=== PATIENT | male | born 1940 | race Caucasian/White ===

== ENCOUNTER 2020-06-27 06:52 | Outpatient (REF) | payer MEDICARE, OTHER, SELFPAY ==
[2020-06-27 08:06] LABS: MANUAL DIFF FLAG NO
[2020-06-27 08:14] LABS: Basophils Absolute Auto 0.1 X10*3/uL (0.0-0.2); Eosinophils Absolute Auto 0.3 X10*3/uL (0.0-0.4); Eosinophils Percent Auto 4.9 % (0-4); Hematocrit 44.4 % (42-52); Hemoglobin 15.5 g/dl (14.0-18.0); Imm Gran Abs Auto 0.02 X10*3/uL (0.00-0.03); Imm Gran Pct Auto 0.4 % (0.0-0.4); Lymphocytes Absolute Auto 1.7 X10*3/uL (1.2-4.9); Lymphocytes Percent Auto 34.4 % (20-40); Mean Corpuscular HGB Conc 34.9 g/dl (31.0-36.0); Mean Corpuscular Hemoglobin 32.9 pg (27.0-33.0); Mean Corpuscular Volume 94.3 fL (80-98); Mean Platelet Volume 11.5 fL (9.4-12.4); Monocytes Absolute Auto 0.7 X10*3/uL (0.1-1.2); Monocytes Percent Auto 14.4 % (2-11); Neutrophils Absolute Auto 2.2 X10*3/uL (2.0-8.3); Neutrophils Percent Auto 43.9 % (45-73); Platelet Count 164 X10*3/uL (160-400); Red Blood Count 4.71 X10*6/uL (4.60-5.80); Red Cell Distribution Width 12.7 % (11.0-16.0); White Blood Count 5.1 X10*3/uL (4.8-10.8)
[2020-06-27 08:38] LABS: Alanine Aminotransferase 14 U/L (0-40); Albumin Level 4.2 g/dL (3.5-5.0); Alkaline Phosphatase 64 U/L (39-117); Anion Gap 12 (12-20); Aspartate Amino Transferase 24 U/L (5-37); Bilirubin Total 0.9 mg/dL (0.0-1.0); Blood Urea Nitrogen 12 mg/dL (9-16); Calcium 8.9 mg/dL (8.4-10.2); Carbon Dioxide 28 mmol/L (22-29); Chloride 102 mmol/L (96-108); Cholesterol 153 mg/dL; Estimated Glomerular Filt Rate > 60; Glucose Fasting 85 mg/dL (60-99); HDL Cholesterol 60 mg/dL; LDL Cholesterol Calculated 78 mg/dl; Potassium 4.2 mmol/l (3.3-5.1); Sodium 138 mmol/L (135-145); Total Protein 7.1 g/dL (6.5-8.0); Triglycerides 77 mg/dL
[2020-06-27 09:01] LABS: Prostate Specific Antigen 1.04 ng/mL (<0.05-4.0)
== END 2020-06-27 06:53 | disposition home or self-care (01) ==
LOC: HO.LAB 06:52
PROVIDERS: PCP Internal Medicine Medical Oncology; Visit Provider Internal Medicine Medical Oncology
DX: N40.0 Benign prostatic hyperplasia without lower urinary tract symptoms (principal); D12.2 Benign neoplasm of ascending colon; E78.5 Hyperlipidemia, unspecified
CPT/HCPCS: 36415; 80053; 80061; 84153; 85025

== ENCOUNTER 2020-09-25 06:52 | Outpatient (REF) | payer MEDICARE, OTHER, SELFPAY ==
--- NOTE | 2020-09-25 07:08 | XR_ITS ---
EXAMINATION: XR CHEST CLINICAL INFORMATION: Hemoptysis. COMPARISON: None. TECHNIQUE: 2 views of the chest were obtained. FINDINGS: The lungs are hyperinflated with areas of ill-defined patchy opacities right upper lobe, right lower lobe, left midlung and left lower lobe are similar or slightly more prominent than on previous study. This could be technical. Increased markings seen in both lungs are stable. There is small multiple reticular nodular changes in both lungs, question metastatic disease. Heart size and pulmonary vascularity are normal. No gross bony abnormality seen. XR/XR chest 2V IMPRESSION: Hyperinflated lungs with areas of ill-defined patchy opacities and increased interstitial markings somewhat similar to previous study. There is multiple small nodules seen in both upper lobes and rest of the lungs. Suspect metastatic disease. Recommend CT chest exam.
[2020-09-25 07:33] LABS: MANUAL DIFF FLAG NO
[2020-09-25 07:35] LABS: Basophils Absolute Auto 0.1 X10*3/uL (0.0-0.2); Basophils Percent Auto 1.8 % (0-2); Eosinophils Absolute Auto 0.1 X10*3/uL (0.0-0.4); Eosinophils Percent Auto 1.6 % (0-4); Hematocrit 45.8 % (42-52); Hemoglobin 16.1 g/dl (14.0-18.0); Imm Gran Abs Auto 0.01 X10*3/uL (0.00-0.03); Imm Gran Pct Auto 0.2 % (0.0-0.4); Lymphocytes Absolute Auto 1.8 X10*3/uL (1.2-4.9); Lymphocytes Percent Auto 31.9 % (20-40); Mean Corpuscular HGB Conc 35.2 g/dl (31.0-36.0); Mean Corpuscular Hemoglobin 32.9 pg (27.0-33.0); Mean Corpuscular Volume 93.7 fL (80-98); Mean Platelet Volume 10.9 fL (9.4-12.4); Monocytes Absolute Auto 0.8 X10*3/uL (0.1-1.2); Monocytes Percent Auto 14.9 % (2-11); Neutrophils Absolute Auto 2.8 X10*3/uL (2.0-8.3); Neutrophils Percent Auto 49.6 % (45-73); Platelet Count 186 X10*3/uL (160-400); Red Blood Count 4.89 X10*6/uL (4.60-5.80); Red Cell Distribution Width 12.2 % (11.0-16.0); White Blood Count 5.7 X10*3/uL (4.8-10.8)
[2020-09-25 07:59] LABS: Alanine Aminotransferase 14 U/L (0-40); Albumin Level 4.4 g/dL (3.5-5.0); Alkaline Phosphatase 72 U/L (39-117); Anion Gap 11 (12-20); Aspartate Amino Transferase 21 U/L (5-37); Bilirubin Total 0.8 mg/dL (0.0-1.0); Blood Urea Nitrogen 12 mg/dL (9-16); Calcium 9.4 mg/dL (8.4-10.2); Carbon Dioxide 29 mmol/L (22-29); Chloride 102 mmol/L (96-108); Estimated Glomerular Filt Rate > 60; Glucose Random 88 mg/dL (60-115); Magnesium 1.9 mg/dL (1.6-2.6); Potassium 4.3 mmol/l (3.3-5.1); Sodium 138 mmol/L (135-145); Total Protein 7.4 g/dL (6.5-8.0)
== END 2020-09-25 06:53 | disposition home or self-care (01) ==
LOC: HO.LAB 06:52
PROVIDERS: Visit Provider Internal Medicine Medical Oncology
DX: R04.2 Hemoptysis (principal); E78.5 Hyperlipidemia, unspecified
CPT/HCPCS: 36415; 71046; 80053; 83735; 85025

== ENCOUNTER 2020-09-27 15:35 | Outpatient (REF) | payer MEDICARE, OTHER, SELFPAY ==
--- NOTE | 2020-09-27 | US_ITS ---
EXAMINATION: US VENOUS ULTRASOUND WITH DOPPLER LOWER EXTREMITY, LEFT CLINICAL INFORMATION: Pain COMPARISON: None TECHNIQUE: Ultrasound of the deep veins is performed from the hip to the calf with compression sonography and color and pulse Doppler assessment. Spectral analysis with color-flow imaging is performed. FINDINGS: There is normal venous compression and respiratory variation and augmented flow. The visualized common femoral vein, superficial femoral vein, profunda femoral vein, popliteal vein, and the trifurcation region shows no evidence of deep venous thrombosis. There is no significant popliteal fossa cyst. No popliteal artery aneurysm. If the patient's symptoms persist, followup ultrasound in 5 days 7 days might be of value to exclude proximal propagation from a non-visualized calf vein. US/US venous duplex LE LT IMPRESSION: No acute DVT demonstrated in the left lower extremity.
== END 2020-09-27 15:36 | disposition home or self-care (01) ==
LOC: HO.US 15:35
PROVIDERS: PCP Internal Medicine Medical Oncology; Visit Provider Internal Medicine Medical Oncology
DX: M79.662 Pain in left lower leg (principal)
CPT/HCPCS: 93971

== ENCOUNTER → 2020-11-01 12:53 | Outpatient (REF) | payer MEDICARE, OTHER, SELFPAY ==
--- NOTE | 2020-11-01 12:58 | CA_ITS ---
Transthoracic Echocardiogram Patient (Last, First, Middle): Freeman King J Gender: Male Date of : 1940 Age: 80 Procedure Date: 11/01/2020 Procedure Type: Transthoracic Echocardiogram Location: OP Height: 193.04 cm Weight: 80.74 kg BSA: 2.11 m2 Heart Rate: bpm BP: 126 / 78 mmHg Weight Loss Sales Consultant: [place] MD: Robbie Kothari MD Intellectual Property Counsel: Freddie Gibson MD Symptoms: ATRIAL ARRHYTHMIA Study Quality: Good ECG Rhythm: Sinus with extra beats Conclusions: - 1. Normal LV systolic function with grade 1 diastolic dysfunction 2. Trivial aortic regurgitation 3. Normal RV systolic pressure 4. No pericardial effusion Findings Left Ventricle Normal left ventricular size, thickness, and systolic function. The visually estimated ejection fraction is between 60-65%. Spectral Doppler is indicative of an impaired relaxation filling pattern. E/E prime ratio is <8, consistent with normal filling pressures. Evidence suggests grade I (mild) diastolic dysfunction. Right Ventricle Normal right ventricular cavity size and systolic function. Atria Both atria are normal in size. There is no evidence of interatrial shunt. Aortic Valve There is mild calcification of the aortic valve. There is no aortic valve stenosis. There is trace (trivial) aortic valve regurgitation. Mitral Valve Normal mitral valve structure and function. There is trace mitral valve regurgitation. There is no mitral valve stenosis. Pulmonic Valve The pulmonic valve is likely normal. There is trace to mild pulmonic valve regurgitation. Tricuspid Valve Normal tricuspid valve structure. There is trace tricuspid valve regurgitation. The right ventricular systolic pressure is normal. The right ventricular systolic pressure is 22 mmHg. Normal right atrial pressure. There is no evidence of pulmonary hypertension. Great Vessels All visible segments of the aorta are normal in size. The pulmonary artery was not well visualized. Venous The inferior vena cava is normal in size and collapses greater than 50% with inspiration. Pericardium/Pleural There is no evidence of pericardial effusion. Prior Study Comparison No prior study available for comparison. Measurements 2D Linear Measurements IVSd: 1.02 0.6-0.9/0.6-1.0 cm LVIDd: 4.22 3.9-5.3/4.2-5.9 cm LVIDd Index: 2.00 2.4-3.2/2.2-3.1 cm/m2 LVIDs: 2.70 2.0-3.6 cm LVPWd: 1.01 0.7-1.1 cm Ao Root: 3.80 2.1-3.5 cm LA Diam: 3.50 2.7-3.8/3.0-4.0 cm LAIDs Index: 1.66 1.5-2.3 cm/m2 LV Mass: 175.75 67-162/88-224 g LV Mass Index: 83.29 43-95/49-115 g/m2 LVOT Diam: 2.50 3.0+(-)1.3 cm Mitral Valve MV Pk E: 0.56 MV PK A: 0.77 MV Decel Time: 206.00 E/A: 0.70 E'Lateral: 8.49 E'Medial: 5.33 E/E' Med: 10.60 E/E' Lat: 6.60 PHT: 60.00 MVA PHT: 3.67 Decel Rock: 2.74 Aortic Valve AoV Pk Jun: 1.38 AoV Mn Jun: 0.94 AoV VTI: 0.28 AoV Pk Grad: 8.00 Aov Mn Grad: 4.00 DAR Cont.VTI: 4.35 LVOT LVOT Pk Jun: 1.12 LVOT Mn Jun: 0.81 LVOT VTI: 0.25 LVOT Pk Grad: 5.00 LVOT Mn Grad: 3.00 LVOT Diam: 2.50 LVOT Area: 4.91 Diastolic Function MV Pk E: 0.56 MV Pk A: 0.77 E/A: 0.70 E'Medial: 5.33 E/E' Med: 10.60 E' Laterial: 8.49 E/E' Lat: 6.60 Tricuspid Valve TR Pk Jun: 2.20 TR Pk Grad: 19.00 RA Press: 3.00 RVSP: 22.00 Great Vessels Aorta Ao Root-2D: 3.80 2.0-3.7 cm Ao Asc: 3.50 2.1-3.4 cm Ao Arch: 3.50 Updated in Other Vendor System with Status of Final Freddie Gibson MD electronically signed on 11/02/2020 3:38:12 PM with status of Final
--- NOTE | 2020-11-01 12:59 | ECG_ITS ---
Hook-up date: 2020-11-01 13:55:00 Duration: 47:59:00 Test Indications: ATRIAL ARRHYTHMIA Medications: 446561 QRS complexes 5934 Ventricular ectopics which represent 5 % of total QRS comp. 9 Supraventricular ectopics which represent <1 % of total QRS comp. * Paced QRS complexs which represent % of total QRS comp. VENTRICULAR ECTOPY 5341 Isolated 560 Bigeminal Cycles 289 Couplets 5 Runs 15 Beats in Runs 3 Beats LONGEST at 166 BPM at 07:03:11 2020-11-02 3 Beats FASTEST at 189 BPM at 07:32:04 2020-11-02 SUPRAVENTRICULAR ECTOPY 5 Isolated 2 Couplets 0 Runs 0 Beats in Runs * Beats LONGEST at * BPM at :: -- * Beats FASTEST at * BPM at :: -- HEART RATES 48 MIN at 16:35:05 2020-11-01 67 AVG 115 MAX at 07:31:59 2020-11-02 LONGEST RR 1.3280 secs at 05:27:06 2020-11-02 S-T LEVELS Channel 1 - 128 mm at 13:55:00 2020-11-01 - 128 mm at 13:55:00 2020-11-01 Channel 2 - 128 mm at 13:55:00 2020-11-01 - 128 mm at 13:55:00 2020-11-01 Channel 3 - 128 mm at 03:31:41 -- - 128 mm at 03:31:41 Basic rhythm Normal sinus rhythm No long pause or profound bradycardia Frequent Premature ventricular complexes , 6% of total beats % 3 beat perry of NSVT with fastest rate of 189 bpm Patient did not report any symptoms in the diary Referred By: Robbie Kothari Overread By: ARTIE BLACK MD
== END ==
LOC: HO.CARD 12:53
PROVIDERS: Visit Provider Internal Medicine Medical Oncology
DX: I49.8 Other specified cardiac arrhythmias (principal)
CPT/HCPCS: 93225; 93226; 93306

== ENCOUNTER → 2020-11-06 09:49 | Outpatient (BNVA) | payer MEDICARE, OTHER, SELFPAY | PROVIDERS: PCP Internal Medicine Medical Oncology; Visit Provider Hospitalist | DX: R93.89 Abnormal findings on diagnostic imaging of other specified body structures (principal); R91.8 Other nonspecific abnormal finding of lung field; R04.2 Hemoptysis; R05 Cough | CPT/HCPCS: 99202 ==

== ENCOUNTER 2020-11-16 08:53 | Outpatient (REF) | payer MEDICARE, OTHER, SELFPAY ==
--- NOTE | ~2020-11-16 | CT_ITS ---
EXAMINATION: CT CHEST WITHOUT CONTRAST CLINICAL INFORMATION: Cough COMPARISON: Previous chest CT most recent November 2016 and previous chest x-ray most recent September 2020 TECHNIQUE: Multidetector volumetric CT imaging of the chest was done. Axial MIP volume rendering provided. Sagittal and coronal reformatted images were obtained. This CT examination was performed using dose optimization techniques as appropriate, variously including the following: *Automated exposure control *Adjustment of mA and/or kV according to patient size (this includes techniques or standardized protocols for targeted exams where dose is matched to indication/reason for exam; i.e. extremities or head) *Use of iterative reconstruction technique DLP: 180 mGy-cm FINDINGS: LUNGS: There is increasing bronchiectasis and bronchial wall thickening seen in the bilateral upper lobes. There are multiple new nodular opacities seen throughout the lungs but greatest in the bilateral upper lobes and superior segment of the lower lobes. The majority of these appear clustered or peribronchial and may be related to airways disease. Some nodular opacities appear isolated. Largest discrete nodular opacity measures 1 cm in the left upper lobe axial image 30 series 4, 8 mm in the left lower lobe axial image 33 series 4 and 7 mm in the right lower lobe axial image 37 series 4. Neoplastic process cannot be excluded and chest CT follow-up following treatment is recommended. No endobronchial or endotracheal lesion is seen. There is evidence of mild paraseptal emphysema. MEDIASTINUM: There is a small calcified left thyroid nodule that is stable. No follow-up needed. There is diffuse mediastinal lymphadenopathy. Larger lymph nodes are upper normal in size. Largest lymph node is an precarinal lymph node measuring 8 x 10 mm axial image 27 series 3. The heart does not appear enlarged. There is coronary artery calcification. The ascending thoracic aorta is normal in size. The aortic arch measures 3.3 and the descending thoracic aorta 3.2 cm and is slightly dilated. There is no pericardial effusion. The esophagus is unremarkable. PLEURA: There is no pleural effusion. No pleural mass or thickening. AXILLA: No lymphadenopathy. UPPER ABDOMEN: There are multiple low-attenuation liver lesions probably representing cysts. There is a partially visualized cyst in the upper pole of the right kidney. There is a 4 mm right upper pole renal stone. There is diverticulosis of the colon. OSSEOUS STRUCTURES: Unremarkable. CT/CT chest wo con IMPRESSION: Increased bronchiectasis and bronchial wall thickening in the bilateral upper lobes. Multiple new nodular opacities. The majority of these are clustered in peribronchial suggestive of tree-in-bud appearance or airways disease favoring an infectious or inflammatory process. In particular, TB, NAYA and fungal infection should be considered. Several nodular opacities appear discrete or more isolated and neoplastic process cannot be excluded. CT imaging follow-up is recommended.
== END 2020-11-16 08:54 | disposition home or self-care (01) ==
LOC: HO.CT 08:53
PROVIDERS: Visit Provider Hospitalist
DX: R05 Cough (principal); R91.8 Other nonspecific abnormal finding of lung field; R93.89 Abnormal findings on diagnostic imaging of other specified body structures
CPT/HCPCS: 71250

== ENCOUNTER 2020-11-30 06:42 | Outpatient (REF) | payer MEDICARE, OTHER, SELFPAY ==
[2020-11-30 07:01] LABS: MANUAL DIFF FLAG NO
[2020-11-30 07:04] LABS: Basophils Absolute Auto 0.1 X10*3/uL (0.0-0.2); Basophils Percent Auto 1.2 % (0-2); Eosinophils Absolute Auto 0.1 X10*3/uL (0.0-0.4); Eosinophils Percent Auto 1.6 % (0-4); Hematocrit 47.3 % (42-52); Hemoglobin 16.5 g/dl (14.0-18.0); Imm Gran Abs Auto 0.03 X10*3/uL (0.00-0.03); Imm Gran Pct Auto 0.4 % (0.0-0.4); Lymphocytes Absolute Auto 1.8 X10*3/uL (1.2-4.9); Lymphocytes Percent Auto 24.2 % (20-40); Mean Corpuscular HGB Conc 34.9 g/dl (31.0-36.0); Mean Corpuscular Hemoglobin 32.8 pg (27.0-33.0); Mean Platelet Volume 10.2 fL (9.4-12.4); Monocytes Absolute Auto 0.9 X10*3/uL (0.1-1.2); Monocytes Percent Auto 12.4 % (2-11); Neutrophils Absolute Auto 4.4 X10*3/uL (2.0-8.3); Neutrophils Percent Auto 60.2 % (45-73); Platelet Count 197 X10*3/uL (160-400); Red Blood Count 5.03 X10*6/uL (4.60-5.80); Red Cell Distribution Width 12.9 % (11.0-16.0); White Blood Count 7.3 X10*3/uL (4.8-10.8)
[2020-11-30 07:30] LABS: Alanine Aminotransferase 11 U/L (0-40); Albumin Level 4.3 g/dL (3.5-5.0); Alkaline Phosphatase 79 U/L (39-117); Anion Gap 10 (12-20); Aspartate Amino Transferase 21 U/L (5-37); Blood Urea Nitrogen 12 mg/dL (9-16); Calcium 9.2 mg/dL (8.4-10.2); Carbon Dioxide 29 mmol/L (22-29); Chloride 101 mmol/L (96-108); Cholesterol 172 mg/dL; Estimated Glomerular Filt Rate > 60; Glucose Fasting 93 mg/dL (60-99); HDL Cholesterol 58 mg/dL; LDL Cholesterol Calculated 100 mg/dl; Potassium 4.4 mmol/L (3.3-5.1); Sodium 136 mmol/L (135-145); Total Protein 7.6 g/dL (6.5-8.0); Triglycerides 72 mg/dL
[2020-11-30 07:53] LABS: Prostate Specific Antigen 1.73 ng/mL (<0.05-4.0)
== END 2020-11-30 06:43 | disposition home or self-care (01) ==
LOC: HO.LAB 06:42
PROVIDERS: PCP Internal Medicine Medical Oncology; Visit Provider Internal Medicine Medical Oncology
DX: E78.5 Hyperlipidemia, unspecified (principal); N40.0 Benign prostatic hyperplasia without lower urinary tract symptoms; Z12.5 Encounter for screening for malignant neoplasm of prostate
CPT/HCPCS: 36415; 80053; 80061; 84153; 85025

== ENCOUNTER 2021-01-08 09:02 | Outpatient (REF) | payer MEDICARE, OTHER, SELFPAY ==
--- NOTE | 2021-01-08 16:27 | PFT_ITS ---
Forced vital capacity FEV1, XVD67-55, and MVV are all normal. Postbronchodilator therapy, there is no change. Total lung capacity and residual volume normal. Diffusion capacity slightly decreased. CONCLUSION: Normal pulmonary function test. No evidence of obstructive or restrictive pulmonary disorder. Swetha Villegas MD MSB/MODL / [id number]
== END 2021-01-08 09:03 | disposition home or self-care (01) ==
LOC: HO.RESP 09:02
PROVIDERS: PCP Internal Medicine Medical Oncology; Visit Provider Hospitalist
DX: R05 Cough (principal); R91.8 Other nonspecific abnormal finding of lung field; R93.89 Abnormal findings on diagnostic imaging of other specified body structures
CPT/HCPCS: 94060; 94727; 94729; 99212

== ENCOUNTER 2021-01-17 07:54 | Day surgery (SDC) | payer MEDICARE, OTHER, SELFPAY ==
--- NOTE | 2021-01-16 08:52 | HO.ANESPROP2 ---
Documented by User: Brenda Margareth 01/16/21 08:59 HPI - Anesthesia Eval Consult details Narrative: 80yo M for Bronchoscopy Fiberoptic PMFSH Active Problems Active Problems: All Active Problems (Updated 01/08/21 @ 21:55 by Denilson Minor MD) Bronchiectasis (Acute) Hemoptysis (Acute) Pulmonary nodules (Acute) Cough (Acute) Abnormal chest x-ray (Acute) Past Medical History Medical History Abnormal chest x-ray BPH (benign prostatic hyperplasia) Bronchiectasis Cough Hemoptysis Hernia HLD (hyperlipidemia) Pulmonary nodules Surgical History Surgical History Hx of colonoscopy Social History Social History Smoking Status: Former smoker Tobacco Type: Cigarette Years Smoked: 20 years Smoking Quit Date: 1989 Advance Directives: No Advance Directives Information Provided: Yes Meds Allergies Allergy/AdvReac Type Severity Reaction Status Date / Time latex [LATEX] Allergy Intermediate RASH Verified 01/17/21 08:43 Band-Aid Allergy Unknown rash Uncoded 01/17/21 08:43 neosporin Allergy Unknown rash Uncoded 01/17/21 08:43 Home Medications Medication Instructions Recorded Confirmed Last Taken Type atorvastatin 10 mg tablet 10 mg PO DAILY 11/06/20 01/08/21 Unknown History coenzyme Q10 300 mg capsule 300 mg PO DAILY 11/06/20 01/08/21 Unknown History Exam Exam Date and Time: January 16, 2021 0852 Pertinent Lab Results Pertinent Lab Results: Laboratory Tests 11/30/20 11/30/20 06:55 06:55 WBC 7.3 Hgb 16.5 Hct 47.3 Plt Count 197 Sodium 136 Potassium 4.4 Chloride 101 Carbon Dioxide 29 BUN 12 Creatinine 0.82 Narrative Narrative: EKG 09/2020 @ PCP: NSR@64, 1st degree AVB, PACs PFT 12/2020 CONCLUSION: Normal pulmonary function test. No evidence of obstructive or restrictive pulmonary disorder. CT/CT chest wo con 11/2020 IMPRESSION: Increased bronchiectasis and bronchial wall thickening in the bilateral upper lobes. Multiple new nodular opacities. The majority of these are clustered in peribronchial suggestive of tree-in-bud appearance or airways disease favoring an infectious or inflammatory process. In particular, TB, NAYA and fungal infection should be considered. Several nodular opacities appear discrete or more isolated and neoplastic process cannot be excluded. CT imaging follow-up is recommended. Assessment and Plan Assessment Anesthesia Assessment: Chart Reviewed Documented by User: Krystyna Corrales 01/17/21 09:21 [facility] Past Medical History Medical History Abnormal chest x-ray BPH (benign prostatic hyperplasia) Bronchiectasis Cough Hemoptysis Hernia HLD (hyperlipidemia) Pulmonary nodules Family History Family history of problems with anesthesia: No Surgical History Surgical History Hx of colonoscopy History of Problems with Anesthesia: No Social History Social History Smoking Status: Former smoker Tobacco Type: Cigarette Years Smoked: 20 years Smoking Quit Date: 1989 Advance Directives: No Advance Directives Information Provided: Yes Meds Allergies Allergy/AdvReac Type Severity Reaction Status Date / Time latex [LATEX] Allergy Intermediate RASH Verified 01/17/21 08:43 Band-Aid Allergy Unknown rash Uncoded 01/17/21 08:43 neosporin Allergy Unknown rash Uncoded 01/17/21 08:43 Home Medications Medication Instructions Recorded Confirmed Last Taken Type atorvastatin 10 mg tablet 10 mg PO DAILY 11/06/20 01/08/21 Unknown History coenzyme Q10 300 mg capsule 300 mg PO DAILY 11/06/20 01/08/21 Unknown History Exam Height,Weight and Vital Signs: Vital Signs Temp Pulse Resp BP Pulse Ox 01/17/21 08:37 97.9 F 63 16 141/68 H 97 Airway Mallampati Class: II TM Dist: >3cm Neck ROM: Full Denture: Upper and Lower Heart: RRR Lungs: CTAB Assessment and Plan Assessment Anesthesia Assessment: Anesthesia Plan Discussed and Chart Reviewed Final Anesthetic Review NPO: Yes ASA Class: II Final Preanesthetic Review: No Changes in Pt Med Stat, Meds/Allgs Chart Reviewed, Consent Obtained/Reviewed and Anes Risks/Benef Reviewed Patient Risk: Intermediate Procedure Risk: Low Assessment/Block/Sedation in SS: Assess/Block/Sedation-SS Anesthetic Plan Anesthetic Plan: GA Disposition: Standard PACU
[2021-01-17] VITALS (7 sets, daily range): BP systolic 105–141; BP diastolic 54–71; PULSE 54–63; RESP 16–20; TEMP 36.2–36.6; O2SAT 95–98; BMI 20.4
[2021-01-17] MEDS: Lactated Ringers 1,000 ML 100 ML IVCONT (08:40)
--- NOTE | 2021-01-17 09:27 | MHC.SHP ---
Pre-Procedural Eval Section B Chief Complaint: bronchiectasis Allergies: Allergies Allergy/AdvReac Type Severity Reaction Status Date / Time latex [LATEX] Allergy Intermediate RASH Verified 01/17/21 08:43 Band-Aid Allergy Unknown rash Uncoded 01/17/21 08:43 neosporin Allergy Unknown rash Uncoded 01/17/21 08:43 Plan I have reviewed the history and physical and performed a pertinent physical examination on my patient. No changes have occurred unless specified.
--- NOTE | 2021-01-18 09:28 | P.BOP_ITS ---
Brief Operative Note Date of Service: 01/17/21 Pre-op diagnosis: bronchiectasis Post-op diagnosis: same Procedure: Bronchoscopy washing and brushings Surgeon: Denilson Minor MD Anesthesia: GLMA Was an Station Engineer Main Line used for this Procedure?: No Estimated blood loss (mL): 0 Pathology: none sent Condition: stable Disposition: same day
--- NOTE | 2021-01-18 11:13 | OP_ITS ---
SURGEON: Denilson Minor MD PREOPERATIVE DIAGNOSIS: POSTOPERATIVE DIAGNOSIS: Bronchiectasis. PROCEDURE PERFORMED: Bronchoscopy. ESTIMATED BLOOD LOSS: COMPLICATIONS: ANESTHESIA: LMA. ASSISTANTS: None. SPECIMENS: ASA CLASSIFICATION: 2. PREBRONCHOSCOPY DIAGNOSIS: Bronchiectasis. DESCRIPTION OF PROCEDURE: After the patient was adequately sedated, the flexible digital bronchoscope was inserted over the LMA to the level of the vocal cords. The vocal cords appeared to be symmetrical and without any lesions. However, the larynx appeared to be more erythematous with some abnormal looking mucosa as far as pale in certain areas. Likely all related to inflammation and chronic changes, although an ENT eval in the future may be warranted. After instilling additional lidocaine, the bronchoscope was past the vocal cords to the level of the trachea. Tracheal mucosa appeared to be also inflamed, did have significant purulent thick secretions that were attached to the mucosal wall of the trachea. The bronchoscope was navigated to the entire tracheobronchial tree that was examined to the subsegmental level. The patient again had evidence of some inflammation of the airways, friability along with moderate amount of purulent secretions throughout as some areas that was difficult to suction. No bleeding. No endobronchial lesions or masses seen. Next, the bronchoscope was navigated to the right upper lobe, where cytologic and micro brushes were introduced and sent to the appropriate location. Next, with normal saline, bronchial washings were collected bilaterally and there was also therapeutic cleaning of the airways. The bronchoscope was then removed. The total endoscopic time approximately 10 minutes. The patient tolerated the procedure well. Vital signs were stable throughout the procedure. INTERPRETATION: 1. Successful brushings x2 of the right upper lobe. 2. Bilateral lung washings for cytology and microbiology. 3. Successful therapeutic suctioning. Denilson Minor MD MR/MODL / [id number]
== END 2021-01-17 11:36 | disposition home or self-care (01) ==
PROVIDERS: PCP Internal Medicine Medical Oncology; Visit Provider Hospitalist
PROC: 0BJ08ZZ Inspection of Tracheobronchial Tree, Via Natural or Artificial Opening Endoscopic (ICD-10-PCS; CPT 31622; principal; 2021-01-17 09:30)
DX: J47.9 Bronchiectasis, uncomplicated (principal); R91.8 Other nonspecific abnormal finding of lung field; R05 Cough
CPT/HCPCS: 31623; 31645; 87071; 87102; 87116; 87205; 88112; 88305; 88312; J0171; J1100; J2405; J3010

== ENCOUNTER → 2021-01-30 09:42 | Outpatient (BNVA) | payer MEDICARE, OTHER, SELFPAY | PROVIDERS: PCP Internal Medicine Medical Oncology; Visit Provider Hospitalist | DX: R91.8 Other nonspecific abnormal finding of lung field (principal); J47.9 Bronchiectasis, uncomplicated; R05 Cough | CPT/HCPCS: 99212 ==

== ENCOUNTER 2021-02-27 06:51 | Outpatient (REF) | payer MEDICARE, OTHER, SELFPAY ==
[2021-02-27 07:57] LABS: MANUAL DIFF FLAG NO
[2021-02-27 08:04] LABS: Basophils Absolute Auto 0.1 X10*3/uL (0.0-0.2); Basophils Percent Auto 1.2 % (0-2); Eosinophils Absolute Auto 0.1 X10*3/uL (0.0-0.4); Eosinophils Percent Auto 1.8 % (0-4); Hematocrit 46.4 % (42-52); Hemoglobin 16.3 g/dl (14.0-18.0); Imm Gran Abs Auto 0.03 X10*3/uL (0.00-0.03); Imm Gran Pct Auto 0.5 % (0.0-0.4); Lymphocytes Absolute Auto 1.8 X10*3/uL (1.2-4.9); Mean Corpuscular HGB Conc 35.1 g/dl (31.0-36.0); Mean Corpuscular Hemoglobin 32.8 pg (27.0-33.0); Mean Corpuscular Volume 93.4 fL (80-98); Mean Platelet Volume 11.2 fL (9.4-12.4); Monocytes Absolute Auto 0.9 X10*3/uL (0.1-1.2); Monocytes Percent Auto 15.2 % (2-11); Neutrophils Absolute Auto 3.2 X10*3/uL (2.0-8.3); Neutrophils Percent Auto 52.3 % (45-73); Platelet Count 185 X10*3/uL (160-400); Red Blood Count 4.97 X10*6/uL (4.60-5.80)
[2021-02-27 08:25] LABS: Alanine Aminotransferase 13 U/L (0-40); Albumin Level 4.3 g/dL (3.5-5.0); Alkaline Phosphatase 77 U/L (39-117); Anion Gap 12 (12-20); Aspartate Amino Transferase 23 U/L (5-37); Blood Urea Nitrogen 13 mg/dL (9-16); Calcium 9.4 mg/dL (8.4-10.2); Carbon Dioxide 29 mmol/L (22-29); Chloride 101 mmol/L (96-108); Cholesterol 158 mg/dL; Estimated Glomerular Filt Rate > 60; Glucose Fasting 82 mg/dL (60-99); HDL Cholesterol 65 mg/dL; LDL Cholesterol Calculated 80 mg/dl; Potassium 4.6 mmol/L (3.3-5.1); Sodium 137 mmol/L (135-145); Total Protein 7.3 g/dL (6.5-8.0); Triglycerides 65 mg/dL
== END 2021-02-27 06:52 | disposition home or self-care (01) ==
LOC: HO.LAB 06:51
PROVIDERS: PCP Internal Medicine Medical Oncology; Visit Provider Hospitalist
DX: N40.0 Benign prostatic hyperplasia without lower urinary tract symptoms (principal); R91.1 Solitary pulmonary nodule; E78.5 Hyperlipidemia, unspecified; I49.8 Other specified cardiac arrhythmias
CPT/HCPCS: 36415; 80053; 80061; 85025

== ENCOUNTER 2021-05-29 06:52 | Outpatient (REF) | payer MEDICARE, OTHER, SELFPAY ==
[2021-05-29 07:31] LABS: MANUAL DIFF FLAG NO
[2021-05-29 07:37] LABS: Basophils Absolute Auto 0.1 X10*3/uL (0.0-0.2); Eosinophils Absolute Auto 0.2 X10*3/uL (0.0-0.4); Eosinophils Percent Auto 4.2 % (0-4); Hematocrit 45.9 % (42-52); Hemoglobin 16.1 g/dl (14.0-18.0); Imm Gran Abs Auto 0.01 X10*3/uL (0.00-0.03); Imm Gran Pct Auto 0.2 % (0.0-0.4); Lymphocytes Absolute Auto 1.5 X10*3/uL (1.2-4.9); Lymphocytes Percent Auto 29.6 % (20-40); Mean Corpuscular HGB Conc 35.1 g/dl (31.0-36.0); Mean Corpuscular Hemoglobin 32.5 pg (27.0-33.0); Mean Corpuscular Volume 92.7 fL (80-98); Mean Platelet Volume 11.4 fL (9.4-12.4); Monocytes Absolute Auto 0.7 X10*3/uL (0.1-1.2); Monocytes Percent Auto 13.7 % (2-11); Neutrophils Absolute Auto 2.5 X10*3/uL (2.0-8.3); Neutrophils Percent Auto 50.3 % (45-73); Platelet Count 178 X10*3/uL (160-400); Red Blood Count 4.95 X10*6/uL (4.60-5.80); Red Cell Distribution Width 13.2 % (11.0-16.0)
[2021-05-29 08:03] LABS: Alanine Aminotransferase 17 U/L (0-40); Albumin Level 4.2 g/dL (3.5-5.0); Alkaline Phosphatase 73 U/L (39-117); Anion Gap 13 (12-20); Aspartate Amino Transferase 26 U/L (5-37); Blood Urea Nitrogen 10 mg/dL (9-16); Calcium 9.6 mg/dL (8.4-10.2); Carbon Dioxide 26 mmol/L (22-29); Chloride 102 mmol/L (96-108); Cholesterol 169 mg/dL; Estimated Glomerular Filt Rate > 60; Glucose Fasting 91 mg/dL (60-99); HDL Cholesterol 69 mg/dL; LDL Cholesterol Calculated 84 mg/dl; Potassium 4.6 mmol/L (3.3-5.1); Sodium 136 mmol/L (135-145); Total Protein 7.3 g/dL (6.5-8.0); Triglycerides 84 mg/dL
[2021-05-29 08:26] LABS: Prostate Specific Antigen 1.46 ng/mL (<0.05-4.0)
== END 2021-05-29 06:53 | disposition home or self-care (01) ==
LOC: HO.LAB 06:52
PROVIDERS: PCP Internal Medicine Medical Oncology; Visit Provider Internal Medicine Medical Oncology
DX: N40.0 Benign prostatic hyperplasia without lower urinary tract symptoms (principal); E78.5 Hyperlipidemia, unspecified
CPT/HCPCS: 36415; 80053; 80061; 84153; 85025

== ENCOUNTER → 2021-07-29 09:28 | Outpatient (BNVA) | payer MEDICARE, OTHER, SELFPAY | PROVIDERS: PCP Internal Medicine Medical Oncology; Visit Provider Hospitalist | DX: R91.8 Other nonspecific abnormal finding of lung field (principal); J47.9 Bronchiectasis, uncomplicated; R05.9 Cough, unspecified; A31.9 Mycobacterial infection, unspecified | CPT/HCPCS: 99212 ==

== ENCOUNTER 2021-10-02 06:52 | Outpatient (REF) | payer MEDICARE, OTHER, SELFPAY ==
[2021-10-02 07:10] LABS: MANUAL DIFF FLAG NO
[2021-10-02 07:33] LABS: Basophils Absolute Auto 0.1 X10*3/uL (0.0-0.2); Basophils Percent Auto 1.5 % (0-2); Eosinophils Absolute Auto 0.1 X10*3/uL (0.0-0.4); Eosinophils Percent Auto 2.4 % (0-4); Hematocrit 47.5 % (42.0-52.0); Hemoglobin 16.6 g/dl (14.0-18.0); Imm Gran Abs Auto 0.02 X10*3/uL (0.00-0.03); Imm Gran Pct Auto 0.3 % (0.0-0.4); Lymphocytes Absolute Auto 1.7 X10*3/uL (1.2-4.9); Lymphocytes Percent Auto 29.7 % (20-40); Mean Corpuscular HGB Conc 34.9 g/dl (31.0-36.0); Mean Corpuscular Hemoglobin 32.7 pg (27.0-33.0); Mean Corpuscular Volume 93.7 fL (80.0-98.0); Mean Platelet Volume 11.5 fL (9.4-12.4); Monocytes Absolute Auto 0.8 X10*3/uL (0.1-1.2); Monocytes Percent Auto 13.7 % (2-11); Neutrophils Absolute Auto 3.1 x10*3/uL (2.0-8.3); Neutrophils Percent Auto 52.4 % (45-73); Platelet Count 173 X10*3/uL (160-400); Red Blood Count 5.07 X10*6/uL (4.60-5.80); Red Cell Distribution Width 12.5 % (11.0-16.0); White Blood Count 5.9 X10*3/uL (4.8-10.8)
[2021-10-02 07:59] LABS: Alanine Aminotransferase 14 U/L (0-40); Albumin Level 4.4 g/dL (3.5-5.0); Alkaline Phosphatase 76 U/L (39-117); Anion Gap 11 (12-20); Aspartate Amino Transferase 23 U/L (5-37); Blood Urea Nitrogen 14 mg/dL (9-16); Calcium 9.7 mg/dL (8.4-10.2); Carbon Dioxide 28 mmol/L (22-29); Chloride 101 mmol/L (96-108); Cholesterol 176 mg/dL; Estimated Glomerular Filt Rate > 60; Glucose Fasting 83 mg/dL (60-99); HDL Cholesterol 63 mg/dL; LDL Cholesterol Calculated 100 mg/dl; Potassium 4.1 mmol/L (3.3-5.1); Sodium 136 mmol/L (135-145); Total Protein 7.8 g/dL (6.5-8.0); Triglycerides 69 mg/dL
[2021-10-02 08:15] LABS: Erythrocyte Sedimentation Rate 6 MM/HR (0-15)
[2021-10-04 03:02] LABS: Immunoglobulin E 16 kU/L (<OR=114)
[2021-10-04 12:36] LABS: Anti Nuclear Antibody Screen NEGATIVE (NEGATIVE)
[2021-10-04 20:36] LABS: Immunoglobulin G Subclass 1 691 mg/dL (382-929); Immunoglobulin G Subclass 2 312 mg/dL (241-700); Immunoglobulin G Subclass 3 40 mg/dL (22-178); Immunoglobulin G Subclass 4 88.4 mg/dL (4-86); Immunoglobulin G Total 1284 mg/dL (600-1540)
[2021-10-04 20:55] LABS: TS Negative Control Passed; TS Panel A 0; TS Panel B 0; TS Positive Control Passed; TSpotTB Negative (Negative)
[2021-10-11 21:46] LABS: Asperg fumigatus Precip Abs NEGATIVE (NEGATIVE); Micropoly faeni Abs NEGATIVE (NEGATIVE); Pigeon serum Abs NEGATIVE (NEGATIVE); Saccharo pora viridis Abs POSITIVE (NEGATIVE); Thermo candidus Abs POSITIVE (NEGATIVE); Thermoa vulgaris #1 NEGATIVE (NEGATIVE)
== END 2021-10-02 06:53 | disposition home or self-care (01) ==
LOC: HO.LAB 06:52
PROVIDERS: Absent Provider Internal Medicine Medical Oncology; PCP Internal Medicine Medical Oncology; Visit Provider Hospitalist
DX: Z11.1 Encounter for screening for respiratory tuberculosis (principal); R91.8 Other nonspecific abnormal finding of lung field; J47.9 Bronchiectasis, uncomplicated; E78.5 Hyperlipidemia, unspecified
CPT/HCPCS: 36415; 80053; 80061; 82784; 82785; 85025; 85652; 86038; 86039; 86331; 86481; 86606; 86609

== ENCOUNTER 2021-10-21 15:05 | Emergency (ER) | payer MEDICARE, OTHER, SELFPAY ==
--- NOTE | ~2021-10-21 | CT_ITS ---
EXAMINATION: CT HEAD WITHOUT CONTRAST CT CERVICAL SPINE WITHOUT CONTRAST CLINICAL INFORMATION: Injury. Fall. COMPARISON: CT of chest 11/16/2020 TECHNIQUE: Imaging was performed from the skull base to vertex without intravenous administration of contrast. In addition, helical noncontrast CT imaging was acquired through the cervical spine and source images were reviewed along with axial reconstructions and sagittal and coronal MPRs. [This CT examination was performed using dose optimization techniques as appropriate, variously including the following: *Automated exposure control *Adjustment of mA and/or kV according to patient size (this includes techniques or standardized protocols for targeted exams where dose is matched to indication/reason for exam; i.e. extremities or head) *Use of iterative reconstruction technique] DLP: 1197 mGy-cm FINDINGS: HEAD: No intracranial mass, hemorrhage, or midline shift is visualized. There is generalized global volume loss. There is mild to moderate prominence of the ventricles and the sulci . There is mild hypodensity of the periventricular white matter due to chronic small vessel ischemic disease. There are vascular calcifications of the internal carotid arteries bilaterally. . No extra-axial collections are identified. The paranasal sinuses and mastoid air cells are well aerated. CERVICAL SPINE: There is no evidence of acute cervical spine fracture. Vertebral bodies remain normal in height. Cervical vertebrae have normal alignment. There is multilevel degenerative spondylosis of the cervical spine with disc height narrowing and endplate spurs and facet joint arthrosis No pre- or paravertebral soft tissue abnormality is identified. Limited assessment of the lung apices biapical scarring and bronchiectasis. CT/CT cervical spine wo con IMPRESSION: 1. No acute intracranial pathology. 2. No CT evidence of acute cervical spine fracture or traumatic subluxation
[2021-10-21 15:28] VITALS: BP 167/75; PULSE 55; RESP 18; TEMP 36.6; O2SAT 96; BMI 21.9
[2021-10-21 16:49] LABS: MANUAL DIFF FLAG NO
[2021-10-21 16:50] LABS: Basophils Percent Auto 0.4 % (0-2); Eosinophils Absolute Auto 0.1 X10*3/uL (0.0-0.4); Eosinophils Percent Auto 1.3 % (0-4); Hematocrit 44.4 % (42.0-52.0); Hemoglobin 15.7 g/dl (14.0-18.0); Imm Gran Abs Auto 0.03 X10*3/uL (0.00-0.03); Imm Gran Pct Auto 0.4 % (0.0-0.4); Lymphocytes Absolute Auto 1.7 X10*3/uL (1.2-4.9); Lymphocytes Percent Auto 22.5 % (20-40); Mean Corpuscular HGB Conc 35.4 g/dl (31.0-36.0); Mean Corpuscular Hemoglobin 32.6 pg (27.0-33.0); Mean Corpuscular Volume 92.3 fL (80.0-98.0); Mean Platelet Volume 10.8 fL (9.4-12.4); Monocytes Percent Auto 13.2 % (2-11); Neutrophils Absolute Auto 4.7 x10*3/uL (2.0-8.3); Neutrophils Percent Auto 62.2 % (45-73); Platelet Count 166 X10*3/uL (160-400); Red Blood Count 4.81 X10*6/uL (4.60-5.80); Red Cell Distribution Width 12.3 % (11.0-16.0); White Blood Count 7.5 X10*3/uL (4.8-10.8)
--- NOTE | 2021-10-21 17:09 | ED_ITS ---
HPI - Fall General Chief Complaint: Fall Stated Complaint: fell on the back of his head, wont stop bleeding Source: patient Mode of arrival: ambulatory Limitations: no limitations History of Present Illness HPI Narrative: 81-year-old male presents with laceration to the back of his head after slip and fall on the ice this morning at about 08:30. Patient called his primary care physician, was evaluated at Urgent Care, and then referred to the emergency department. Patient does not report any neurological symptoms, denies prodromal events, and not recall when his last Tdap vaccine was updated patient has no o ther complaints at this time. MD complaint: fall Onset (ago): hour(s) (08:30) Fall from: standing Fall witnessed: no Place fall occurred: home Loss of consciousness: none Prolonged down time: no Symptoms prior to fall: none Context: tripped/slipped (Slipped on ice) Location of injury: head Severity: moderate Severity scale (1-10): 4 Quality: dull and aching Associated symptoms (after fall): denies Related Data Home Medications Medication Instructions Recorded Confirmed atorvastatin 10 mg tablet 10 mg PO DAILY 11/06/20 01/08/21 coenzyme Q10 300 mg capsule 300 mg PO DAILY 11/06/20 01/08/21 albuterol sulfate 2.5 mg INHALATION Q4-6H PRN 07/29/21 Allergies Allergy/AdvReac Type Severity Reaction Status Date / Time latex [LATEX] Allergy Intermediate RASH Verified 10/21/21 15:28 Band-Aid Allergy Severe rash Uncoded 10/21/21 15:28 neosporin Allergy Severe rash Uncoded 10/21/21 15:28 Review of Systems Review of Systems: Constitutional: Positive fall, No Fever, No Chills ENT/Mouth: No Ear Pain, No Hoarseness, No sore throat Eyes: No Eye Pain, No Swelling, No Redness, No Foreign Body Cardiovascular: No Chest Pain, No SOB Respiratory: No Cough, No Dyspnea Gastrointestinal: No Nausea, No Vomiting, No Diarrhea, No abdominal Pain Genitourinary: No Dysuria, No Hematuria Musculoskeletal: No joint pain, No Myalgias, No Joint Swelling Skin: Positive occipital scalp laceration, No rash Neuro: No Weakness, No Numbness, No Paresthesias, No Loss of Consciousness, No Dizziness, No Headache Psych: No Anxiety/Panic, No Depression Heme/Lymph: no easy bruising, no Lymphadenopathy Endocrine: No Polyuria, No Polydipsia Yes all other systems are reviewed and are negative [facility] Past Medical History Attestation statement: The following information was validated with the patient. Source: old records reviewed Medical History Abnormal chest x-ray BPH (benign prostatic hyperplasia) Bronchiectasis Cough Hemoptysis Hernia HLD (hyperlipidemia) Mycobacterial disease Pulmonary nodules Surgical History Hx of colonoscopy Social History Social History Patient Tobacco Use Status: Former Tobacco user Tobacco use type: Cigarette Years Smoked: 20 years Advance Directives: No Advance Directives Information Provided: Yes Physical Exam Vital Signs: Vital Signs: Last Vital Signs Temp 97.9 F 10/21/21 15:28 Pulse 62 10/21/21 18:55 Resp 16 10/21/21 18:55 BP 128/87 10/21/21 18:55 Pulse Ox 98 10/21/21 18:55 BMI result Body Mass Index 21.9 Appearance: Alert. Oriented X3. No acute distress. Head: Normal external exam. Normocephalic. Atraumatic. No Brito signs noted. No raccoon eyes noted Eyes: PERRLA. EOMI. Conjunctiva and sclera normal. Eyelids normal. ENT: TM's Normal. Pharynx normal. Uvula midline. Moist mucous membranes. No trismus noted. No drooling noted. No muffled voice noted. Neck: Normal inspection. Neck supple. No adenopathy. No meningeal signs. No vertebral tenderness or step-offs noted. CVS: Normal heart rate and rhythm. Heart sound normal. No murmurs noted. Pulses equal to all extremities. Respiratory: No respiratory distress. Painless inspiration. Breath sounds normal. No wheezes/rales/rhonchi noted. Chest nontender. No accessory muscle usage noted or decreased air movement noted. Abdomen: Soft and nontender. Bowel sounds normal in all 4 quadrants. No distention noted. No organomegaly noted. No visible injury noted. Back: No CVA tenderness. Full range of motion noted. Skin: Skin warm and dry. Normal skin color. Normal skin turgor. 2 cm laceration to the occiput Extremities: No lower extremity edema. Extremities exhibit normal range of motion. Extremities nontender. Neuro: cranial nerves 2-12 intact, no focal neural deficits, strength 5/5 to all extremities, No motor deficit. No sensory deficit. Reflexes normal. Course Course Course Narrative: 81-year-old male presents from urgent care for evaluation of a head laceration after slipping and falling on the ice today. Hit the back of his head on the ground, does not report losing consciousness, does not report any prodromal symptoms. Will order CT scan of head and cervical spine, update Tdap vaccine at this time. 17:20 laceration cleaned by INFORMATION CODER, 3 scott applied without difficulty to the 2 cm laceration to the occiput. Patient tolerated procedure well. Bleeding is well controlled. CT scan of cervical spine and head pending. 18:48 CT scan of head and cervical spine negative for acute findings requiring of intervention. Plan of care is to discharge home have patient follow-up with primary care physician for concussion follow-up. Patient does understand staple care, signs and symptoms indicating need to return to the emergency department and agrees to plan of care discharge home. Procedures Laceration Laceration 1: Site: scalp Size (cm): 2 Description: linear Depth: simple, single layer Pre-repair: wound explored, irrigated extensively and deep structures intact Skin layer closed with: other ([place] 3) MDM - Fall MDM Narrative Medical decision making narrative: Laceration Differential Diagnosis Differential diagnosis: Likely concussion without loss of consciousness Medical Records Attestation: I reviewed the patient's medical records. Lab Data Attestation: I reviewed the patient's lab results. Result diagrams: 10/21/21 16:45 10/21/21 16:45 Labs: Lab Results 10/21/21 10/21/21 Range/Units 16:45 16:45 WBC 7.5 (4.8-10.8) X10*3/uL RBC 4.81 (4.60-5.80) X10*6/uL Hgb 15.7 (14.0-18.0) g/dl Hct 44.4 (42.0-52.0) % MCV 92.3 (80.0-98.0) fL MCH 32.6 (27.0-33.0) pg MCHC 35.4 (31.0-36.0) g/dl RDW 12.3 (11.0-16.0) % Plt Count 166 (160-400) X10*3/uL MPV 10.8 (9.4-12.4) fL Immature Gran % (Auto) 0.4 (0.0-0.4) % Neut % (Auto) 62.2 (45-73) % Lymph % (Auto) 22.5 (20-40) % [place] % (Auto) 13.2 H (2-11) % Eos % (Auto) 1.3 (0-4) % Baso % (Auto) 0.4 (0-2) % Lymph # (Auto) 1.7 (1.2-4.9) X10*3/uL [place] # (Auto) 1.0 (0.1-1.2) X10*3/uL Eos # (Auto) 0.1 (0.0-0.4) X10*3/uL Baso # (Auto) 0.0 (0.0-0.2) X10*3/uL Abs Immat Gran (auto) 0.03 (0.00-0.03) X10*3/uL Absolute Neuts (auto) 4.7 (2.0-8.3) x10*3/uL Absolute Nucleated RBC 0.000 (0.0-0.012) X10*3/uL Nucleated RBC % (auto) 0.0 (0.0-0.2) /100WBC Sodium 134 L (135-145) mmol/L Potassium 4.6 (3.3-5.1) mmol/L Chloride 101 (96-108) mmol/L Carbon Dioxide 29 (22-29) mmol/L Anion Gap 9 L (12-20) BUN 12 (9-16) mg/dL Creatinine 0.88 (0.5-1.4) mg/dL Estim Creat Clear Calc 76.0 Estimated GFR > 60 Random Glucose 95 (60-115) mg/dL Calcium 9.4 (8.4-10.2) mg/dL Imaging Data CT head cervical spine: Attestation: I personally reviewed and interpreted this imaging study as follows: Radiologist's impression: COMPARISON: CT of chest 11/16/2020 TECHNIQUE: Imaging was performed from the skull base to vertex without intravenous administration of contrast. In addition, helical noncontrast CT imaging was acquired through the cervical spine and source images were reviewed along with axial reconstructions and sagittal and coronal MPRs. [This CT examination was performed using dose optimization techniques as appropriate, variously including the following: *Automated exposure control *Adjustment of mA and/or kV according to patient size (this includes techniques or standardized protocols for targeted exams where dose is matched to indication/reason for exam; i.e. extremities or head) *Use of iterative reconstruction technique] DLP: 1197 mGy-cm FINDINGS: HEAD: No intracranial mass, hemorrhage, or midline shift is visualized. There is generalized global volume loss. There is mild to moderate prominence of the ventricles and the sulci . There is mild hypodensity of the periventricular white matter due to chronic small vessel ischemic disease. There are vascular calcifications of the internal carotid arteries bilaterally. . No extra-axial collections are identified. The paranasal sinuses and mastoid air cells are well aerated. CERVICAL SPINE: There is no evidence of acute cervical spine fracture. Vertebral bodies remain normal in height. Cervical vertebrae have normal alignment. There is multilevel degenerative spondylosis of the cervical spine with disc height narrowing and endplate spurs and facet joint arthrosis No pre- or paravertebral soft tissue abnormality is identified. Limited assessment of the lung apices biapical scarring and bronchiectasis. CT/CT head/brain wo con IMPRESSION: 1. No acute intracranial pathology. 2. No CT evidence of acute cervical spine fracture or traumatic subluxation Discharge Plan Discharge Clinical Impression: Laceration of occipital scalp, Concussion, Fall Patient Disposition: Home, Self-Care Instructions: Laceration (ED), Concussion (ED), Staple Care (ED) Additional Instructions: You were evaluated for laceration sustained from a fall on ice. We placed 3 scott. Please return in 10 days for staple removal. You may return to your primary care physician, urgent care. Please follow-up with primary care physician closely for concussion protocol. Please return to the emergency department for any symptoms indicating need for emergent intervention. Thank you for choosing this emergency department for evaluation. Please follow-up with primary care physician as needed. Return to the emergency de partment for any new, concerning, or worsening symptoms. Prescriptions: No Action atorvastatin 10 mg tablet 10 mg PO DAILY 0RF coenzyme Q10 300 mg capsule 300 mg PO DAILY 0RF albuterol sulfate 2.5 mg /3 mL (0.083 %) solution for nebulization 2.5 mg inhalation Q4-6H [id number] Interventions: ED Discharge Assessment Last Done: 10/21/21 18:57 Discharge Date/Time: 10/21/21 18:58
[2021-10-21 17:21] LABS: Anion Gap 9 (12-20); Blood Urea Nitrogen 12 mg/dL (9-16); Calcium 9.4 mg/dL (8.4-10.2); Carbon Dioxide 29 mmol/L (22-29); Chloride 101 mmol/L (96-108); Estimated Glomerular Filt Rate > 60; Glucose Random 95 mg/dL (60-115); Potassium 4.6 mmol/L (3.3-5.1); Sodium 134 mmol/L (135-145)
[2021-10-21] MEDS: Diphth,Pertus(ACell),Tet Adult 0.5 ML SYRINGE IM (17:29)
[2021-10-21 18:55] VITALS: BP 128/87; PULSE 62; RESP 16; O2SAT 98
== END 2021-10-21 18:58 | disposition home or self-care (01) ==
PROVIDERS: Emergency Provider Emergency Medicine; PCP Internal Medicine Medical Oncology
DX: S06.0X0A Concussion without loss of consciousness, initial encounter (principal); S01.01XA Laceration without foreign body of scalp, initial encounter; W00.0XXA Fall on same level due to ice and snow, initial encounter; Y93.01 Activity, walking, marching and hiking; Y92.014 Private driveway to single-family (private) house as the place of occurrence of the external cause; Y99.9 Unspecified external cause status
CPT/HCPCS: 12001; 36415; 70450; 72125; 80048; 85025; 90471; 90715; 99283; 99284

== ENCOUNTER → 2021-10-22 09:23 | Outpatient (BNVA) | payer MEDICARE, OTHER, SELFPAY | PROVIDERS: PCP Internal Medicine Medical Oncology; Visit Provider Hospitalist | DX: R91.8 Other nonspecific abnormal finding of lung field (principal); J47.9 Bronchiectasis, uncomplicated; R05.9 Cough, unspecified; A31.9 Mycobacterial infection, unspecified | CPT/HCPCS: 99212 ==

== ENCOUNTER 2021-12-17 08:12 | Outpatient (REF) | payer MEDICARE, OTHER, SELFPAY ==
--- NOTE | ~2021-12-17 | CT_ITS ---
EXAMINATION: CT CHEST WITHOUT CONTRAST CLINICAL INFORMATION: Pulmonary nodules COMPARISON: Previous chest CT most recent November 2020 TECHNIQUE: Multidetector volumetric CT imaging of the chest was done. Axial MIP volume rendering provided. Sagittal and coronal reformatted images were obtained. This CT examination was performed using dose optimization techniques as appropriate, variously including the following: *Automated exposure control *Adjustment of mA and/or kV according to patient size (this includes techniques or standardized protocols for targeted exams where dose is matched to indication/reason for exam; i.e. extremities or head) *Use of iterative reconstruction technique DLP: 200 mGy-cm FINDINGS: LUNGS: There is increasing bronchiectasis, endobronchial wall thickening seen in both upper lobes. There is mixed appearance of pulmonary nodules. There is overall interval increase in size and number of pulmonary nodules, predominately involving the upper lungs. For example there is a new 0.8 x 1.3 cm cavitary right upper lobe nodule axial image 18 and 1.1 cm cavitary right upper lobe nodule axial image 17 series 3. There is interval decrease in size in the previously 8 x 8 mm left upper lobe nodule axial image 29 series 3 now measuring 0.2 x 8 mm axial image 29 series 3 and interval decrease in left lower lobe nodule measuring 1 cm axial image 33 series 3 now measuring 2 to 3 mm axial image 32 series 3. MEDIASTINUM: There is shotty mediastinal lymphadenopathy that is stable. Evaluation for hilar adenopathy is limited without contrast. The heart does not appear enlarged. There is coronary artery and aortic valve calcification. There is no pericardial effusion. There is a small left thyroid calcification that is stable. PLEURA: There is no pleural effusion. No pleural mass or thickening. AXILLA: No lymphadenopathy. UPPER ABDOMEN: There are multiple low-attenuation liver lesions that appear stable and likely represent cysts. There is a small stone in the upper pole of the right kidney. There is a 3 cm right renal cyst. OSSEOUS STRUCTURES: There is slight loss of height of the superior endplate of the T2 and T3 vertebral body suggestive of mild compression fractures. CT/CT chest wo con IMPRESSION: Waxing and waning appearance of pulmonary nodules. There is overall interval increase in size and number of pulmonary nodules and increasing bilateral upper lobe bronchiectasis and bronchial wall thickening. Coronary artery and aortic valve calcification. New mild T2 and T3 vertebral body compression fractures. Stable abdominal findings. Fleischner guidelines were followed.
== END 2021-12-17 08:13 | disposition home or self-care (01) ==
LOC: HO.CT 08:12
PROVIDERS: Visit Provider Hospitalist
DX: J47.9 Bronchiectasis, uncomplicated (principal); R91.8 Other nonspecific abnormal finding of lung field
CPT/HCPCS: 71250

== ENCOUNTER → 2021-12-24 08:56 | Outpatient (BNVA) | payer MEDICARE, OTHER, SELFPAY | PROVIDERS: PCP Internal Medicine Medical Oncology; Visit Provider Hospitalist | DX: J47.9 Bronchiectasis, uncomplicated (principal); R91.8 Other nonspecific abnormal finding of lung field; R05.9 Cough, unspecified; A31.9 Mycobacterial infection, unspecified | CPT/HCPCS: 99212 ==

== ENCOUNTER 2021-12-31 06:57 | Outpatient (REF) | payer MEDICARE, OTHER, SELFPAY ==
[2021-12-31 07:10] LABS: MANUAL DIFF FLAG NO
--- NOTE | 2021-12-31 07:20 | ECG_ITS ---
Test Reason : J44.9 Blood Pressure : / mmHG Vent. Rate : 062 BPM Atrial Rate : 062 BPM P-R Int : 200 ms QRS Dur : 110 ms QT Int : 418 ms P-R-T Axes : -07 083 058 degrees QTc Int : 424 ms Sinus rhythm with sinus arrhythmia with occasional Premature ventricular complexes Otherwise normal ECG No previous ECGs available Referred By: Denilson Minor Electronically Signed By:ARTIE BLACK MD
[2021-12-31 07:39] LABS: Basophils Absolute Auto 0.1 X10*3/uL (0.0-0.2); Basophils Percent Auto 1.4 % (0-2); Eosinophils Absolute Auto 0.1 X10*3/uL (0.0-0.4); Hematocrit 43.8 % (42.0-52.0); Hemoglobin 15.3 g/dl (14.0-18.0); Imm Gran Abs Auto 0.01 X10*3/uL (0.00-0.03); Imm Gran Pct Auto 0.2 % (0.0-0.4); Lymphocytes Absolute Auto 1.4 X10*3/uL (1.2-4.9); Mean Corpuscular HGB Conc 34.9 g/dl (31.0-36.0); Mean Corpuscular Hemoglobin 32.3 pg (27.0-33.0); Mean Corpuscular Volume 92.6 fL (80.0-98.0); Mean Platelet Volume 11.3 fL (9.4-12.4); Monocytes Absolute Auto 0.7 X10*3/uL (0.1-1.2); Monocytes Percent Auto 13.4 % (2-11); Neutrophils Absolute Auto 2.7 x10*3/uL (2.0-8.3); Platelet Count 175 X10*3/uL (160-400); Red Blood Count 4.73 X10*6/uL (4.60-5.80); White Blood Count 4.9 X10*3/uL (4.8-10.8)
[2021-12-31 08:01] LABS: Alanine Aminotransferase 16 U/L (0-40); Alkaline Phosphatase 66 U/L (39-117); Anion Gap 11 (12-20); Aspartate Amino Transferase 25 U/L (5-37); Bilirubin Direct 0.4 mg/dL (0.0-0.5); Bilirubin Total 0.9 mg/dL (0.0-1.0); Blood Urea Nitrogen 14 mg/dL (9-16); Calcium 9.3 mg/dL (8.4-10.2); Carbon Dioxide 26 mmol/L (22-29); Chloride 105 mmol/L (96-108); Estimated Glomerular Filt Rate > 60; Glucose Random 87 mg/dL (60-115); Sodium 138 mmol/L (135-145); Total Protein 7.1 g/dL (6.5-8.0)
[2021-12-31 08:37] LABS: Erythrocyte Sedimentation Rate 6 MM/HR (0-15)
== END 2021-12-31 06:58 | disposition home or self-care (01) ==
LOC: HO.LAB 06:57
PROVIDERS: Hospitalist; PCP Internal Medicine Medical Oncology; Visit Provider Internal Medicine Medical Oncology
DX: R91.8 Other nonspecific abnormal finding of lung field (principal); A31.9 Mycobacterial infection, unspecified; J44.9 Chronic obstructive pulmonary disease, unspecified; E78.5 Hyperlipidemia, unspecified
CPT/HCPCS: 36415; 80048; 80076; 85025; 85652; 93005

== ENCOUNTER → 2022-02-25 08:37 | Outpatient (BNVA) | payer MEDICARE, OTHER, SELFPAY | PROVIDERS: PCP Internal Medicine Medical Oncology; Visit Provider Hospitalist | DX: J47.9 Bronchiectasis, uncomplicated (principal); A31.9 Mycobacterial infection, unspecified; R91.8 Other nonspecific abnormal finding of lung field | CPT/HCPCS: 99212 ==

== ENCOUNTER 2022-03-14 10:00 | Outpatient (REF) | payer MEDICARE, OTHER, SELFPAY | END 2022-03-14 10:01 | disposition home or self-care (01) | LOC: HO.LNP 10:00 | PROVIDERS: Visit Provider Hospitalist | DX: J47.9 Bronchiectasis, uncomplicated (principal); A31.9 Mycobacterial infection, unspecified | CPT/HCPCS: 87070; 87205 ==

== ENCOUNTER 2022-04-03 06:46 | Outpatient (REF) | payer MEDICARE, OTHER, SELFPAY ==
[2022-04-03 06:52] LABS: MANUAL DIFF FLAG NO
[2022-04-03 07:12] LABS: Basophils Absolute Auto 0.1 X10*3/uL (0.0-0.2); Basophils Percent Auto 1.2 % (0-2); Eosinophils Absolute Auto 0.1 X10*3/uL (0.0-0.4); Eosinophils Percent Auto 2.2 % (0-4); Hematocrit 45.4 % (42.0-52.0); Hemoglobin 16.2 g/dl (14.0-18.0); Imm Gran Abs Auto 0.02 X10*3/uL (0.00-0.03); Imm Gran Pct Auto 0.3 % (0.0-0.4); Lymphocytes Absolute Auto 1.9 X10*3/uL (1.2-4.9); Lymphocytes Percent Auto 32.8 % (20-40); Mean Corpuscular HGB Conc 35.7 g/dl (31.0-36.0); Mean Corpuscular Hemoglobin 33.1 pg (27.0-33.0); Mean Corpuscular Volume 92.8 fL (80.0-98.0); Mean Platelet Volume 10.8 fL (9.4-12.4); Monocytes Absolute Auto 0.7 X10*3/uL (0.1-1.2); Monocytes Percent Auto 11.7 % (2-11); Neutrophils Absolute Auto 3.1 x10*3/uL (2.0-8.3); Neutrophils Percent Auto 51.8 % (45-73); Platelet Count 180 X10*3/uL (160-400); Red Blood Count 4.89 X10*6/uL (4.60-5.80); Red Cell Distribution Width 12.9 % (11.0-16.0); White Blood Count 5.9 X10*3/uL (4.8-10.8)
[2022-04-03 07:26] LABS: Alanine Aminotransferase 14 U/L (0-40); Albumin Level 4.4 g/dL (3.5-5.0); Alkaline Phosphatase 66 U/L (39-117); Anion Gap 11 (12-20); Aspartate Amino Transferase 24 U/L (5-37); Bilirubin Total 1.4 mg/dL (0.0-1.0); Blood Urea Nitrogen 12 mg/dL (9-16); Calcium 9.3 mg/dL (8.4-10.2); Carbon Dioxide 28 mmol/L (22-29); Chloride 100 mmol/L (96-108); Cholesterol 172 mg/dL; Estimated Glomerular Filt Rate > 60; Glucose Random 87 mg/dL (60-115); HDL Cholesterol 60 mg/dL; LDL Cholesterol Calculated 101 mg/dl; Potassium 4.5 mmol/L (3.3-5.1); Sodium 134 mmol/L (135-145); Total Protein 7.5 g/dL (6.5-8.0); Triglycerides 59 mg/dL
[2022-04-03 07:48] LABS: Prostate Specific Antigen 1.54 ng/mL (<0.05-4.0)
== END 2022-04-03 06:47 | disposition home or self-care (01) ==
LOC: HO.LAB 06:46
PROVIDERS: Absent Provider Internal Medicine Medical Oncology; PCP Internal Medicine Medical Oncology; Visit Provider Hospitalist
DX: Z12.5 Encounter for screening for malignant neoplasm of prostate (principal); S01.01XA Laceration without foreign body of scalp, initial encounter; N40.0 Benign prostatic hyperplasia without lower urinary tract symptoms; R91.1 Solitary pulmonary nodule; E78.5 Hyperlipidemia, unspecified; I49.8 Other specified cardiac arrhythmias
CPT/HCPCS: 36415; 80053; 80061; 84153; 85025

== ENCOUNTER 2022-05-29 13:05 | Outpatient (REF) | payer MEDICARE, OTHER, SELFPAY ==
--- NOTE | ~2022-05-29 | CT_ITS ---
EXAMINATION: CT CHEST WITHOUT CONTRAST CLINICAL INFORMATION: Pulmonary nodule. Abnormal lung findings. COMPARISON: CT chest 12/17/2021. TECHNIQUE: Multidetector volumetric CT imaging of the chest was done. Axial MIP volume rendering provided. Sagittal and coronal reformatted images were obtained. This CT examination was performed using dose optimization techniques as appropriate, variously including the following: *Automated exposure control *Adjustment of mA and/or kV according to patient size (this includes techniques or standardized protocols for targeted exams where dose is matched to indication/reason for exam; i.e. extremities or head) *Use of iterative reconstruction technique DLP: 165 mGy-cm FINDINGS: OCCUPATIONAL HEALTH NURSING DIRECTOR: The lungs are well expanded with plate-like atelectasis or scarring right upper lobe. LUNGS: Predominantly bilateral upper lobe bronchiectasis and bronchial wall thickening with ground-glass attenuation changes are seen. The right upper lobe cavitary lesion measures 1.2 cm and is slightly smaller compared to 1.3 cm on the previous study. It is best visualized on image 20/4 on the present exam and 18/3 on the last exam. There are additional small cavitary lesions seen posteriorly on the previous study on axial image 19/4 showing slight improvement. There are multiple ill-defined pulmonary nodules in both upper lobes more pronounced in the right upper lobe which appear stable. The left upper lobe nodule described previously has slightly improved. Patchy subpleural airspace opacity in both upper lobes anteriorly are stable. There are ill-defined patchy nodules in the left lower lobe and lingular segments which are stable as well. Multiple ill-defined nodules in the right middle lobe and right lower lobe are grossly unchanged. MEDIASTINUM: The thyroid lobes are symmetric and normal. The central trachea is enlarged but widely patent. Bilateral bronchi are widely patent as well. The heart size and the great vessels are normal caliber. There are coronary artery calcifications present. No pericardial effusion seen. CORONARY ARTERY CALCIFICATION: Mild coronary artery calcification is present. PLEURA: There is no pleural effusion. No pleural mass or thickening. AXILLA: No lymphadenopathy. UPPER ABDOMEN: There are at least 2 visible right hepatic cysts which are stable. OSSEOUS STRUCTURES: No aggressive lytic or sclerotic process seen. There are old compression superior endplate deformities at the T2 and T3 vertebrae. There is a nonobstructive 3 mm radiopaque calculi upper pole right kidney. Also visualized is an exophytic cyst in the midpole right kidney. CT/CT chest wo IV con IMPRESSION: Hyperinflated lungs with ill-defined multiple bilateral pulmonary nodules in both upper lobes, lower lobes, right middle lobe, and lingula. The cavitary lesions described previously have improved. There is bronchiectasis and bronchial wall thickening which is stable. No new pulmonary nodules, cavitation or abnormal lymphadenopathy. Fleischner guidelines were followed.
== END 2022-05-29 13:06 | disposition home or self-care (01) ==
LOC: HO.CT 13:05
PROVIDERS: Visit Provider Hospitalist
DX: R91.8 Other nonspecific abnormal finding of lung field (principal)
CPT/HCPCS: 71250

== ENCOUNTER 2022-06-26 06:47 | Outpatient (REF) | payer MEDICARE, OTHER, SELFPAY ==
[2022-06-26 07:09] LABS: Basophils Absolute Auto 0.1 X10*3/uL (0.0-0.2); Basophils Percent Auto 1.6 % (0-2); Eosinophils Absolute Auto 0.1 X10*3/uL (0.0-0.4); Eosinophils Percent Auto 2.5 % (0-4); Hematocrit 43.5 % (42.0-52.0); Hemoglobin 15.7 g/dl (14.0-18.0); Imm Gran Abs Auto 0.01 X10*3/uL (0.00-0.03); Imm Gran Pct Auto 0.2 % (0.0-0.4); Lymphocytes Absolute Auto 1.5 X10*3/uL (1.2-4.9); Lymphocytes Percent Auto 33.5 % (20-40); MANUAL DIFF FLAG NO; Mean Corpuscular HGB Conc 36.1 g/dl (31.0-36.0); Mean Corpuscular Hemoglobin 33.8 pg (27.0-33.0); Mean Corpuscular Volume 93.8 fL (80.0-98.0); Monocytes Absolute Auto 0.6 X10*3/uL (0.1-1.2); Monocytes Percent Auto 14.2 % (2-11); Neutrophils Absolute Auto 2.1 x10*3/uL (2.0-8.3); Platelet Count 169 X10*3/uL (160-400); Red Blood Count 4.64 X10*6/uL (4.60-5.80); Red Cell Distribution Width 12.6 % (11.0-16.0); White Blood Count 4.5 X10*3/uL (4.8-10.8)
[2022-06-26 07:36] LABS: Alanine Aminotransferase 11 U/L (0-40); Albumin Level 4.3 g/dL (3.5-5.0); Alkaline Phosphatase 66 U/L (39-117); Anion Gap 16 (12-20); Aspartate Amino Transferase 26 U/L (5-37); Bilirubin Direct 0.4 mg/dL (0.0-0.5); Bilirubin Total 1.1 mg/dL (0.0-1.0); Blood Urea Nitrogen 12 mg/dL (9-16); Calcium 9.4 mg/dL (8.4-10.2); Carbon Dioxide 25 mmol/L (22-29); Chloride 100 mmol/L (96-108); Estimated Glomerular Filt Rate > 60; Glucose Random 90 mg/dL (60-115); Potassium 4.6 mmol/L (3.3-5.1); Sodium 136 mmol/L (135-145); Total Protein 7.3 g/dL (6.5-8.0)
== END 2022-06-26 06:48 | disposition home or self-care (01) ==
LOC: HO.LAB 06:47
PROVIDERS: PCP Internal Medicine Medical Oncology; Visit Provider Hospitalist
DX: A31.9 Mycobacterial infection, unspecified (principal)
CPT/HCPCS: 36415; 80048; 80076; 85025

== ENCOUNTER → 2022-06-30 09:18 | Outpatient (BNVA) | payer MEDICARE, OTHER, SELFPAY | PROVIDERS: PCP Internal Medicine Medical Oncology; Visit Provider Hospitalist | DX: R91.8 Other nonspecific abnormal finding of lung field (principal); A31.9 Mycobacterial infection, unspecified; J47.9 Bronchiectasis, uncomplicated; R05.9 Cough, unspecified | CPT/HCPCS: 99212 ==

== ENCOUNTER 2022-12-05 06:54 | Outpatient (REF) | payer MEDICARE, OTHER, SELFPAY ==
[2022-12-05 07:09] LABS: MANUAL DIFF FLAG NO
[2022-12-05 07:30] LABS: Basophils Absolute Auto 0.1 X10*3/uL (0.0-0.2); Eosinophils Absolute Auto 0.1 X10*3/uL (0.0-0.4); Eosinophils Percent Auto 1.9 % (0-4); Hematocrit 46.7 % (42.0-52.0); Hemoglobin 16.4 g/dl (14.0-18.0); Imm Gran Abs Auto 0.01 X10*3/uL (0.00-0.03); Imm Gran Pct Auto 0.2 % (0.0-0.4); Lymphocytes Absolute Auto 1.7 X10*3/uL (1.2-4.9); Lymphocytes Percent Auto 29.6 % (20-40); Mean Corpuscular HGB Conc 35.1 g/dl (31.0-36.0); Mean Corpuscular Hemoglobin 33.5 pg (27.0-33.0); Mean Corpuscular Volume 95.3 fL (80.0-98.0); Mean Platelet Volume 10.9 fL (9.4-12.4); Monocytes Absolute Auto 0.7 X10*3/uL (0.1-1.2); Monocytes Percent Auto 12.4 % (2-11); Neutrophils Absolute Auto 3.2 x10*3/uL (2.0-8.3); Neutrophils Percent Auto 54.9 % (45-73); Platelet Count 176 X10*3/uL (160-400); Red Cell Distribution Width 12.9 % (11.0-16.0); White Blood Count 5.7 X10*3/uL (4.8-10.8)
[2022-12-05 08:10] LABS: Alanine Aminotransferase 13 U/L (0-40); Albumin Level 4.4 g/dL (3.5-5.0); Alkaline Phosphatase 62 U/L (39-117); Anion Gap 15 (12-20); Aspartate Amino Transferase 23 U/L (5-37); Bilirubin Total 0.8 mg/dL (0.0-1.0); Blood Urea Nitrogen 17 mg/dL (9-16); Calcium 9.2 mg/dL (8.4-10.2); Carbon Dioxide 26 mmol/L (22-29); Chloride 102 mmol/L (96-108); Cholesterol 190 mg/dL; Estimated Glomerular Filt Rate > 60; Glucose Fasting 89 mg/dL (60-99); HDL Cholesterol 67 mg/dL; LDL Cholesterol Calculated 112 mg/dl; Potassium 4.6 mmol/L (3.3-5.1); Sodium 138 mmol/L (135-145); Total Protein 7.2 g/dL (6.5-8.0); Triglycerides 57 mg/dL
[2022-12-05 08:16] LABS: Prostate Specific Antigen 1.35 ng/mL (<0.05-4.0)
== END 2022-12-05 06:55 | disposition home or self-care (01) ==
LOC: HO.LAB 06:54
PROVIDERS: PCP Internal Medicine Medical Oncology; Visit Provider Internal Medicine Medical Oncology
DX: Z12.5 Encounter for screening for malignant neoplasm of prostate (principal); N40.0 Benign prostatic hyperplasia without lower urinary tract symptoms; E78.5 Hyperlipidemia, unspecified; I49.8 Other specified cardiac arrhythmias; Z87.891 Personal history of nicotine dependence
CPT/HCPCS: 36415; 80053; 80061; 84153; 85025

== ENCOUNTER → 2022-12-23 06:49 | Outpatient (REF) | payer MEDICARE, OTHER, SELFPAY ==
[2022-12-23 06:58] LABS: MANUAL DIFF FLAG NO
--- NOTE | 2022-12-23 06:59 | ECG_ITS ---
Test Reason : 344.9 Blood Pressure : / mmHG Vent. Rate : 069 BPM Atrial Rate : 069 BPM P-R Int : 218 ms QRS Dur : 108 ms QT Int : 402 ms P-R-T Axes : -06 092 060 degrees QTc Int : 430 ms Sinus rhythm with 1st degree A-V block with frequent Premature ventricular complexes Rightward axis Borderline ECG When compared with ECG of 31-DEC-2021 07:24, No significant change was found Referred By: Denilson Minor Electronically Signed By:ARTIE BLACK MD
[2022-12-23 07:37] LABS: Basophils Absolute Auto 0.1 X10*3/uL (0.0-0.2); Basophils Percent Auto 1.3 % (0-2); Eosinophils Absolute Auto 0.1 X10*3/uL (0.0-0.4); Eosinophils Percent Auto 1.5 % (0-4); Hematocrit 46.7 % (42.0-52.0); Hemoglobin 16.3 g/dl (14.0-18.0); Imm Gran Abs Auto 0.02 X10*3/uL (0.00-0.03); Imm Gran Pct Auto 0.3 % (0.0-0.4); Lymphocytes Absolute Auto 2.1 X10*3/uL (1.2-4.9); Lymphocytes Percent Auto 34.4 % (20-40); Mean Corpuscular HGB Conc 34.9 g/dl (31.0-36.0); Mean Corpuscular Volume 94.5 fL (80.0-98.0); Mean Platelet Volume 10.5 fL (9.4-12.4); Monocytes Absolute Auto 0.9 X10*3/uL (0.1-1.2); Monocytes Percent Auto 14.1 % (2-11); Neutrophils Percent Auto 48.4 % (45-73); Platelet Count 163 X10*3/uL (160-400); Red Blood Count 4.94 X10*6/uL (4.60-5.80); Red Cell Distribution Width 12.9 % (11.0-16.0); White Blood Count 6.1 X10*3/uL (4.8-10.8)
[2022-12-23 08:09] LABS: Alanine Aminotransferase 16 U/L (0-40); Albumin Level 4.3 g/dL (3.5-5.0); Alkaline Phosphatase 68 U/L (39-117); Anion Gap 13 (12-20); Aspartate Amino Transferase 28 U/L (5-37); Bilirubin Direct 0.2 mg/dL (0.0-0.5); Bilirubin Total 0.7 mg/dL (0.0-1.0); Blood Urea Nitrogen 17 mg/dL (9-16); Calcium 9.4 mg/dL (8.4-10.2); Carbon Dioxide 26 mmol/L (22-29); Chloride 104 mmol/L (96-108); Estimated Glomerular Filt Rate > 60; Glucose Random 87 mg/dL (60-115); Potassium 4.4 mmol/L (3.3-5.1); Sodium 139 mmol/L (135-145); Total Protein 7.2 g/dL (6.5-8.0)
== END ==
LOC: HO.CARD 06:49
PROVIDERS: PCP Internal Medicine Medical Oncology; Visit Provider Hospitalist
DX: A31.9 Mycobacterial infection, unspecified (principal); J44.9 Chronic obstructive pulmonary disease, unspecified
CPT/HCPCS: 36415; 80048; 80076; 85025; 93005

== ENCOUNTER → 2022-12-26 09:55 | Outpatient (BNVA) | payer MEDICARE, OTHER, SELFPAY | PROVIDERS: PCP Internal Medicine Medical Oncology; Visit Provider Hospitalist | DX: J47.9 Bronchiectasis, uncomplicated (principal); R91.8 Other nonspecific abnormal finding of lung field; R05.9 Cough, unspecified; A31.9 Mycobacterial infection, unspecified; Z79.899 Other long term (current) drug therapy | CPT/HCPCS: 99212 ==

== ENCOUNTER 2023-03-16 06:50 | Outpatient (REF) | payer MEDICARE, OTHER, SELFPAY | END 2023-03-16 06:51 | disposition home or self-care (01) | LOC: HO.LAB 06:50 | PROVIDERS: PCP Internal Medicine Medical Oncology; Visit Provider Internal Medicine Medical Oncology | DX: E78.5 Hyperlipidemia, unspecified (principal); E66.3 Overweight | CPT/HCPCS: 36415; 80053; 80061; 85025 ==

== ENCOUNTER 2023-06-17 07:14 | Outpatient (REF) | payer MEDICARE, OTHER, SELFPAY | END 2023-06-17 07:15 | disposition home or self-care (01) | LOC: HO.CT 07:14 | PROVIDERS: PCP Internal Medicine Medical Oncology; Visit Provider Hospitalist | DX: R91.8 Other nonspecific abnormal finding of lung field (principal) | CPT/HCPCS: 71250 ==

== ENCOUNTER 2023-06-24 09:35 | Outpatient (AMB) | payer MEDICARE, OTHER, SELFPAY ==
[2023-06-24 09:46] VITALS: BP 138/70; PULSE 76; O2SAT 96; BMI 21.7
--- NOTE | 2023-06-24 09:46 | A.OFFVIS_ITS ---
Intake Vital Signs 06/24/23 09:46 Height 6 ft 4 in Weight 178 lb BMI 21.7 BP 138/70 Blood Pressure Location Lt brachial Position Sitting Pulse 76 Pulse Source Pulse Oximeter Pulse Oximetry (%) 96 Oxygen Delivery Method Room Air Intake Visit Reasons: emphysema Allergies latex [LATEX] Allergy (Intermediate, Verified 06/24/23 09:49) RASH Band-Aid Allergy (Severe, Uncoded 06/24/23 09:49) rash neosporin Allergy (Severe, Uncoded 06/24/23 09:49) rash HPI HPI Comments History of Present Illness Details The patient is an 82-year-old gentleman with a known history of childhood asthma in addition to pulmonary nodules. The patient followed for many years with CT scan following some abnormal findings including pulmonary nodules and interstitial changes. Ultimately no significant findings were noted. For the last year the patient has had episodes of coughing up blood. He has not coughed up blood now more than 6 months. He denies any weight loss or night sweats. He states that he walks about a mi a day and denies any shortness of breath. He has been evaluated for cardiac symptoms including palpitations. At this point the patient does not use any respiratory inhalers. He does not feel like he needs new either. We did look at his chest x-ray from September 2020 demonstrating some increased interstitial changes compared to his previous x- ray from 2019. We personally reviewed that x-ray was also personally reviewed the CT scan of the chest that he had back in 2017 demonstrating some interstitial changes primarily in the upper lung zones. The patient did have multiple pulmonary nodules. Therefore, based on his abnormal chest x-ray and ongoing intermittent coughing with sometimes hemoptysis the patient needs to have a CT scan of the chest. In addition to that will having undergo pulmonary function studies to assess her COPD. 01/08/2021 the patient is here for puljs kellogg follow-up visit. Overall he is feeling better. Denies any significant hemoptysis at this time. He did undergo his pulmonary function studies which were reassuring without any obstruction no restriction. He does have moderate diffusion impairment. In addition to that he did undergo a repeat CT scan of the chest which was compared to his CT scan from 2017. It demonstrated interval worsening of the bronchiectasis the pulmonary nodules and tree-in-bud. This appears to be more consistent with a smoldering infectious process versus inflammatory process. At this point the patient is agreeable to bronchoscopy to assess for any infectious etiologies and also to rule out malignant processes. 01/30/2021 the patient is here for puljs kellogg follow-up visit. He is status post bronchoscopy. He did have significant purulent secretions in the airways that were suction. Otherwise no other acute abnormalities noted. His cultures are all negative at this time. Still waiting for the results of the mycobacteria cultures assessing for the possibility of a mycobacterial lung disease. In the meantime he has been using his nebulizer. At this point he is to get an Acapella valve to further provide chest physical therapy with the goal of maintaining good pulmonary hygiene. 07/29/2021 the patient is here for a pulmonary follow-up visit. Overall the patient has been doing much better. He is responding well to the nebulized therapy followed by the Acapella valve. He has been able to clear significant amount of secretions. His lungs appear to be better overall with less congestion. He has been using the nebulizer once a day and I did agree with him decreasing his frequency to once a day at this time. He does have underlying pulmonary nodules. The last time he had a CT scan of the chest was back in November 2020. Will plan to follow-up with a CT scan in 6 months time which should be little bit longer than a year. I am hopeful the nodules are stable we can at that point follow them as needed. However, if the nodules are growing in size further diagnostic interventions will be warranted. 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 At this point the patient is doing well and does not require antimicrobial agents at this time. 10/03/2021 the patient is here for a pulmonary follow-up visit. He continues to have a productive cough on a regular basis. He does use the nebulized t herapy and is able to expectorate well. 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 He also understands that treating it will require 17 months of antimicrobial therapy in order to follow the Infectious Disease recommendations. He also understands that there is a high relapse straight even after completing the 17 months. Therefore at this point will follow him closely since his symptoms do not appear to be worsening. We did review his CT scan of the chest demonstrating bronchiectatic changes in addition to pulmonary nodular densities. No evidence of any cavitations at this time. Patient last CT scan was back in 2020. the repeat CT scan scheduled for December 2021. if the nodules are changing increasing of progressing we need to consider treating the mycobacteria infection. In the meantime will try aggressive chest physical therapy by continuing his nebulized therapy and also adding hypertonic saline. The patient does have an Acapella valve any start using it after the nebulized therapy. In addition to that the patient did have a recent fall. He did go to the ER and the scott to the back of his call because of a laceration. He is also complaining of some left-sided flank discomfort from his fall. He does have some point tenderness over the ribs. Likely contusions. He had a CT scan of the brain demonstrating some chronic changes. He did not have any chest imaging studies. At this point will follow-up after his CT scan he is going to continue with aggressive chest physical therapy. 12/24/2021 the patient is here for pulmon ame follow-up visit. He describes worsening cough productive in nature. He is also developing increasing shortness of breath. Moderate severity with activity. The patient did have a repeat CT scan of the chest that we personally reviewed demonstrating waxing waning pulmonary nodules in addition to having interval progression of the bron chiectasis and appears to have more treating budding and more progression of his airway disease. This is likely secondary to the smoldering infection with the non tuberculosis mycobacterial infection. He did try the percussion valve without any significant improvement. Therefore this time view of his worsening symptoms and also worsening CT scan will go ahead and start him on therapy. Will try him on the lowest dose possible in order for him to be able to tolerated and we can always consider increasing the medication. Once he is on therapy around 4-6 weeks after worse will get another sputum culture to make sure that he is tolerating the therapy. He also have to undergo blood work and also an EKG to make sure that he can tolerate therapy. Also mentioned on the report of the CT scan is that he does have 2 mild compression fractures. At this point the patient denies any back discomfort. However, in view of the findings the patient should follow up with his primary care doctor to be assessed for the possibility of osteopenia or osteoporosis. 02/25/2022 so the patient is here for a p ulmonary follow-up visit. Overall he is doing well from a respiratory status. His cough is overall better. He still expectorating some but much less. He is tolerating the antimycobacterial therapy. Has been on the azithromycin 3 times a week in addition to a lower dose rifampin and ethambutol. Denies any eye Darron edwards. He did have an EKG back in December without any QT changes. The patient has not had any blood work since then. He will go for blood work to make sure that everything else is stable. In the meantime he is having some diarrhea issues. We did talk about the side effects of the medications and GI symptoms. If his GI symptoms becomes too significant we talked about dropping 1 of the agents to just at the dual therapy. The patient understands that the triple antibiotic regimen to avoid too much resistance buildup due to the mycobacterial resistance possibilities. In the meantime the patient did have a CT scan back in December demonstrating interval worsening of pulmonary nodules and bronchiectatic changes. Will plan to continue the therapy and follow-up with a CT scan in June 2022. The patient meantime will provide us with the sputum sample to make sure that the mycobacterium is eradicating. 06/30/2022 the patient is here for a pulmonary follow-up visit. Overall continues to feel well. His cough is overall better. He is exercising regularly. He is tolerating the triple antimicrobial therapy. The only adverse effect is discoloration of the urine which is common with the rifampin In addition to some diarrhea. We did talk about adding probiotics to his regimen. He will try some [id number] options. He did have a repeat CT scan of the chest demonstrating interval improvement of the cavitary lesions and also improvement of the parenchymal disease. No evidence of any new nodules and he has stable pulmonary nodules. Therefore it is encouraging that the therapy has been clinically affected also radiologically with evidence of improvement. He understands that treatment should at least last been 12-15 months of therapy. His sputum culture repeat has not demonstrated any mycobacterial disease. 12/26/2022 the patient is here for a pulm onary follow-up visit. He continues to do well. His cough is overall better. He continues on the triple antimicrobial therapy. He has completed now 1 year. Based on the fact that the patient is doing better will go ahead and stop the ethambutol and the rifampin and will continue with the azithromycin for now. His last EKG was reassuring. Will plan to continue on the azithromycin and will plan to repeat the CT scan in May 2023. If the patient develops any worsening symptoms prior to that he is to call the office for an earlier evaluation. 06/24/2023 the patient is here for a pulmonary follow-up visit. He continues on the azithromycin 3 times a week 500 mg. He is happy that he is stopped the ethambutol and rifampin. Respiratory tobin the patient is doing well denies any worsening cough or shortness of breath. Although he has had episodes of hemoptysis he states. Is minimal amount scant in amount. At this point is subsided. Still the patient is aware that if it happens again if it is a very more significance he would have to call again in order to address the hemoptysis. He did recently have a CT scan 06/17/2023 which I personally reviewed. It appears patient does have some significant bronchiectasis and nodular densities and tree-in-bud and all are very similar to his previous CT scan at least there is no worsening of disease. He also has a new pulmonary nodule in the right base. Seems to be also related to the underlying mycobacterial disease. At this point will continue with the azithromycin 3 times a week since the patient clinically doing well. Although, if his hemoptysis worsens his respiratory symptoms worsen then will need to readdress that. I will also provide him with a sputum cup in order for him to bring a sputum sample. The patient should get a repeat CT scan 6 months to follow-up with a new pulmonary nodule. [facility] Medical History Abnormal chest x-ray BPH (benign prostatic hyperplasia) Bronchiectasis Cough Hemoptysis Hernia HLD (hyperlipidemia) Mycobacterial disease Pulmonary nodules Surgical History Hx of colonoscopy Social History Patient Tobacco Use Status: Former Tobacco user Tobacco use type: Cigarette Years Smoked: 20 years Review of Systems Const Denies headache(s) and Denies night sweats ENT Denies change in voice, Denies headache(s), Denies lip swelling, Denies mouth pain, Reports nasal congestion, Reports nasal discharge and Denies tongue swelling Card Denies chest pain Resp Denies change in phlegm color, Denies chest congestion, Reports cough, Reports hemoptysis, Denies excessive phlegm production, Denies pain on inspiration and Denies pain with cough GI Denies abdominal pain, Denies diarrhea and Reports loose stools Musc Denies no additional complaints Neuro Denies Neuro-related abnormal movements and Denies headache(s) Psych Denies no additional complaints Brad/Lymph Denies easy bleeding and Denies lymphadenopathy Aller/Immun Denies lip swelling and Denies tongue swelling Physical Exam Vital Signs: Last Vital Signs Pulse 76 06/24/23 09:46 BP 138/70 06/24/23 09:46 Pulse Ox 96 06/24/23 09:46 Oxygen Delivery Method Room Air 06/24/23 09:46 BMI result Body Mass Index 21.7 Const General: alert Neck Neck: Yes normal visual inspection, Yes full ROM and Yes no lymphadenopathy Chest Chest palpation & inspection: normal inspection of the chest Resp Auscultation: no rhonchi, no wheezes and diminished lung sounds Cardio Rate: regular rate Rhythm: regular rhythm Heart sounds: S1 normal heart sound present and S2 normal heart sound present GI Palpation (GI): Soft to palpation and nontender Auscultation: normal bowel sounds Assessment & Plan Assessment & Plan (1) Bronchiectasis: Code(s): J47.9 - Bronchiectasis, uncomplicated Qualifiers: Bronchiectasis type: uncomplicated Qualified Code(s): J47.9 - Bronchiectasis, uncomplicated (2) Pulmonary nodules: Code(s): R91.8 - Other nonspecific abnormal finding of lung field (3) Cough: Code(s): R05 - Cough Qualifiers: Cough type: chronic Qualified Code(s): R05.3 - Chronic cough (4) Mycobacterial disease: Code(s): A31.9 - Mycobacterial infection, unspecified (5) Hemoptysis: Code(s): R04.2 - Hemoptysis Plan CPT with neb and acapella valve continue azithromycin 500mg MWF stopped ethambutol and rifampin for now Probiotics Repeat sputum culture and AFB when able repeat CT chest in 6 months F/U 6 months Orders: Orders Acid-fast Culture + Smear Today A31.9 - Mycobacterial infection, unspecified, J47.9 - Bronchiectasis, uncomplicated Sputum Cult + Gram stain Today A31.9 - Mycobacterial infection, unspecified, J47.9 - Bronchiectasis, uncomplicated CT chest wo IV con 6 Months R91.8 - Other nonspecific abnormal finding of lung field Coding Level of Care Code Est Pt Level 4 (58155) Diagnoses Bronchiectasis without complication J47.9 Bronchiectasis type: uncomplicated Pulmonary nodules R91.8 Chronic cough R05.3 Cough type: chronic Mycobacterial disease A31.9 Hemoptysis R04.2 Time Spent (min) 17
== END 2023-06-24 10:12 | disposition home or self-care (01) ==
PROVIDERS: PCP Internal Medicine Medical Oncology; Visit Provider Hospitalist
DX: J47.9 Bronchiectasis, uncomplicated (principal); R91.8 Other nonspecific abnormal finding of lung field; R05.3 Chronic cough; A31.9 Mycobacterial infection, unspecified; R04.2 Hemoptysis
CPT/HCPCS: 99214

== ENCOUNTER → 2023-06-24 09:35 | Outpatient (BNVA) | payer MEDICARE, OTHER, SELFPAY | PROVIDERS: Visit Provider Hospitalist | DX: J47.9 Bronchiectasis, uncomplicated (principal); A31.9 Mycobacterial infection, unspecified; R05.3 Chronic cough; R04.2 Hemoptysis; R91.8 Other nonspecific abnormal finding of lung field; Z87.891 Personal history of nicotine dependence | CPT/HCPCS: 99212 ==

== ENCOUNTER 2023-07-17 06:47 | Outpatient (REF) | payer MEDICARE, OTHER, SELFPAY ==
[2023-07-17 06:57] LABS: MANUAL DIFF FLAG NO
[2023-07-17 07:18] LABS: Basophils Absolute Auto 0.1 X10*3/uL (0.0-0.2); Basophils Percent Auto 1.5 % (0-2); Eosinophils Absolute Auto 0.1 X10*3/uL (0.0-0.4); Eosinophils Percent Auto 2.1 % (0-4); Hematocrit 44.1 % (42.0-52.0); Hemoglobin 15.8 g/dl (14.0-18.0); Imm Gran Abs Auto 0.01 X10*3/uL (0.00-0.03); Imm Gran Pct Auto 0.2 % (0.0-0.4); Lymphocytes Absolute Auto 1.8 X10*3/uL (1.2-4.9); Lymphocytes Percent Auto 35.2 % (20-40); Mean Corpuscular HGB Conc 35.8 g/dl (31.0-36.0); Mean Corpuscular Hemoglobin 33.9 pg (27.0-33.0); Mean Corpuscular Volume 94.6 fL (80.0-98.0); Mean Platelet Volume 10.3 fL (9.4-12.4); Monocytes Absolute Auto 0.8 X10*3/uL (0.1-1.2); Monocytes Percent Auto 15.9 % (2-11); Neutrophils Absolute Auto 2.4 x10*3/uL (2.0-8.3); Neutrophils Percent Auto 45.1 % (45-73); Platelet Count 202 X10*3/uL (160-400); Red Blood Count 4.66 X10*6/uL (4.60-5.80); Red Cell Distribution Width 12.7 % (11.0-16.0); White Blood Count 5.2 X10*3/uL (4.8-10.8)
[2023-07-17 07:40] LABS: Alanine Aminotransferase 15 U/L (0-40); Albumin Level 4.2 g/dL (3.5-5.0); Alkaline Phosphatase 68 U/L (39-117); Anion Gap 10 (12-20); Aspartate Amino Transferase 25 U/L (5-37); Bilirubin Total 0.8 mg/dL (0.0-1.0); Blood Urea Nitrogen 16 mg/dL (9-16); Calcium 9.5 mg/dL (8.4-10.2); Carbon Dioxide 27 mmol/L (22-29); Chloride 104 mmol/L (96-108); Cholesterol 166 mg/dL (<200); Estimated Glomerular Filt Rate > 60; Glucose Fasting 85 mg/dL (60-99); HDL Cholesterol 58 mg/dL (>40); LDL Cholesterol Calculated 96 mg/dL (<100); Potassium 3.8 mmol/L (3.3-5.1); Sodium 137 mmol/L (135-145); Total Protein 7.4 g/dL (6.5-8.0); Triglycerides 62 mg/dL (<150)
[2023-07-17 08:04] LABS: Prostate Specific Antigen 1.13 ng/mL (<0.05-4.0)
== END 2023-07-17 06:48 | disposition home or self-care (01) ==
LOC: HO.LAB 06:47
PROVIDERS: PCP Internal Medicine Medical Oncology; Visit Provider Internal Medicine Medical Oncology
DX: E78.5 Hyperlipidemia, unspecified (principal); N40.0 Benign prostatic hyperplasia without lower urinary tract symptoms; I49.8 Other specified cardiac arrhythmias; Z12.5 Encounter for screening for malignant neoplasm of prostate
CPT/HCPCS: 36415; 80053; 80061; 84153; 85025

== ENCOUNTER 2023-07-26 11:31 | Outpatient (REF) | payer MEDICARE, OTHER, SELFPAY | END 2023-07-26 11:32 | disposition home or self-care (01) | LOC: HO.LNP 11:31 | PROVIDERS: Visit Provider Hospitalist | DX: A31.9 Mycobacterial infection, unspecified (principal); J47.9 Bronchiectasis, uncomplicated | CPT/HCPCS: 87070; 87186; 87205 ==

== ENCOUNTER 2023-07-30 14:55 | Outpatient (REF) | payer MEDICARE, OTHER, SELFPAY | END 2023-07-30 14:56 | disposition home or self-care (01) | LOC: HO.LNP 14:55 | PROVIDERS: PCP Internal Medicine Medical Oncology; Referring Provider Internal Medicine Medical Oncology; Visit Provider Surgery | DX: L02.91 Cutaneous abscess, unspecified (principal) | CPT/HCPCS: 10060; 87070; 87205; 99202 ==

== ENCOUNTER → 2023-08-13 10:33 | Outpatient (BNVA) | payer MEDICARE, OTHER, SELFPAY | PROVIDERS: PCP Internal Medicine Medical Oncology; Visit Provider Surgery | DX: L02.11 Cutaneous abscess of neck (principal) | CPT/HCPCS: 99211 ==

== ENCOUNTER 2023-11-23 07:18 | Outpatient (REF) | payer MEDICARE, SELFPAY ==
--- NOTE | ~2023-11-23 | CT_ITS ---
EXAMINATION: CT CHEST WITHOUT CONTRAST CLINICAL INFORMATION: Pulmonary nodules COMPARISON: CTs, most recent, 06/17/2023 TECHNIQUE: Multidetector volumetric CT imaging of the chest was done. Axial MIP volume rendering provided. Sagittal and coronal reformatted images were obtained. This CT examination was performed using dose optimization techniques as appropriate, variously including the following: *Automated exposure control *Adjustment of mA and/or kV according to patient size (this includes techniques or standardized protocols for targeted exams where dose is matched to indication/reason for exam; i.e. 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 Right upper lobe scarring/retraction. Left mid/upper reticulonodular increased markings. LUNGS: Trachea and bronchi are patent. Bilateral upper lobe retraction. Bilateral bronchiectasis, predominantly in the upper lobes with wall thickening and mucous plugging. Unchanged RUL thick-walled cavitary nodule, 3:18. Scattered ill-defined pulmonary opacities, some of which may represent mucous plugging. These are increasing in the left lower lobe, 5:276 and right lower lobe, 5:479. 1 cm LLL 6 pleural-based nodule on previous study has decreased in size, now measuring 7 mm, 5:311. MEDIASTINUM: Left thyroid calcification again seen. Nonspecific lymph nodes. Nonenlarged heart. Atherosclerotic calcifications nonaneurysmal aorta. Ectatic pulmonary arteries. CORONARY ARTERY CALCIFICATION: Moderate PLEURA: There is no pleural effusion. No pleural mass or thickening. AXILLA: No lymphadenopathy. UPPER ABDOMEN: Unchanged hepatic and right renal cysts. OSSEOUS STRUCTURES: Unremarkable. CT/CT chest wo IV con IMPRESSION: Redemonstration waxing and waning pulmonary opacities/nodules, increasing in the bilateral lower lobes while 1 cm pleural-based nodule seen on previous study has demonstrated interval decrease in size. Irregular pulmonary nodules are seen in the setting of predominantly upper lobe chronic bronchiectasis/mucous plugging, emphysema and stable 1.3 cm right upper lobe cavitary lesion. Diagnostic considerations continue to include, but are not limited to TB, NAYA, and fungal infections. Neoplastic process cannot be excluded. Consider follow-up chest CT in 6 months.
== END 2023-11-23 07:19 | disposition home or self-care (01) ==
LOC: HO.CT 07:18
PROVIDERS: PCP Internal Medicine Medical Oncology; Visit Provider Hospitalist
DX: R91.8 Other nonspecific abnormal finding of lung field (principal)
CPT/HCPCS: 71250

== ENCOUNTER 2023-11-30 06:54 | Outpatient (REF) | payer MEDICARE, SELFPAY ==
[2023-11-30 07:03] LABS: MANUAL DIFF FLAG NO
[2023-11-30 07:40] LABS: Basophils Absolute Auto 0.1 X10*3/uL (0.0-0.2); Basophils Percent Auto 1.1 % (0-2); Eosinophils Absolute Auto 0.1 X10*3/uL (0.0-0.4); Eosinophils Percent Auto 1.9 % (0-4); Hematocrit 44.3 % (42.0-52.0); Hemoglobin 15.5 g/dl (14.0-18.0); Imm Gran Abs Auto 0.03 X10*3/uL (0.00-0.03); Imm Gran Pct Auto 0.6 % (0.0-0.4); Lymphocytes Absolute Auto 1.9 X10*3/uL (1.2-4.9); Lymphocytes Percent Auto 36.5 % (20-40); Mean Corpuscular Hemoglobin 32.5 pg (27.0-33.0); Mean Corpuscular Volume 92.9 fL (80.0-98.0); Mean Platelet Volume 10.3 fL (9.4-12.4); Monocytes Absolute Auto 0.7 X10*3/uL (0.1-1.2); Monocytes Percent Auto 13.5 % (2-11); Neutrophils Absolute Auto 2.4 x10*3/uL (2.0-8.3); Neutrophils Percent Auto 46.4 % (45-73); Platelet Count 182 X10*3/uL (160-400); Red Blood Count 4.77 X10*6/uL (4.60-5.80); Red Cell Distribution Width 12.6 % (11.0-16.0); White Blood Count 5.2 X10*3/uL (4.8-10.8)
[2023-11-30 08:05] LABS: Alanine Aminotransferase 15 U/L (0-40); Albumin Level 4.1 g/dL (3.5-5.0); Alkaline Phosphatase 73 U/L (39-117); Anion Gap 12 (12-20); Aspartate Amino Transferase 21 U/L (5-37); Bilirubin Total 0.7 mg/dL (0.0-1.0); Blood Urea Nitrogen 15 mg/dL (9-16); Calcium 9.2 mg/dL (8.4-10.2); Carbon Dioxide 28 mmol/L (22-29); Chloride 100 mmol/L (96-108); Cholesterol 144 mg/dL (<200); Estimated Glomerular Filt Rate > 60; Glucose Fasting 84 mg/dL (60-99); HDL Cholesterol 47 mg/dL (>40); LDL Cholesterol Calculated 78 mg/dL (<100); Potassium 4.4 mmol/L (3.3-5.1); Sodium 136 mmol/L (135-145); Total Protein 7.3 g/dL (6.5-8.0); Triglycerides 99 mg/dL (<150)
== END 2023-11-30 06:55 | disposition home or self-care (01) ==
LOC: HO.LAB 06:54
PROVIDERS: PCP Internal Medicine Medical Oncology; Visit Provider Internal Medicine Medical Oncology
DX: E78.5 Hyperlipidemia, unspecified (principal); I49.8 Other specified cardiac arrhythmias
CPT/HCPCS: 36415; 80053; 80061; 85025

== ENCOUNTER 2023-12-16 09:37 | Outpatient (AMB) | payer MEDICARE, SELFPAY ==
[2023-12-16 09:55] VITALS: BP 120/60; PULSE 64; O2SAT 99; BMI 20.7
--- NOTE | 2023-12-16 09:55 | MHC.OFFVIS ---
Intake Vital Signs 12/16/23 09:55 Height 6 ft 4 in Weight 170 lb BMI 20.7 BP 120/60 Blood Pressure Location Lt brachial Position Sitting Pulse 64 Pulse Source Pulse Oximeter Pulse Oximetry (%) 99 Oxygen Delivery Method Room Air Intake Visit Reasons: emphysema Screwdown Operator Required: No Allergies latex [LATEX] Allergy (Intermediate, Verified 12/16/23 09:57) RASH Band-Aid Allergy (Severe, Uncoded 12/16/23 09:57) rash neosporin Allergy (Severe, Uncoded 12/16/23 09:57) rash HPI HPI Comments History of Present Illness Details The patient is an 83-year-old gentleman with a known history of childhood asthma in addition to pulmonary nodules. The patient followed for many years with CT scan following some abnormal findings including pulmonary nodules and interstitial changes. Ultimately no significant findings were noted. For the last year the patient has had episodes of coughing up blood. He has not coughed up blood now more than 6 months. He denies any weight loss or night sweats. He states that he walks about a mi a day and denies any shortness of breath. He has been evaluated for cardiac symptoms including palpitations. At this point the patient does not use any respiratory inhalers. He does not feel like he needs new either. We did look at his chest x-ray from September 2020 demonstrating some increased interstitial changes compared to his previous x-ray from 2019. We personally reviewed that x-ray was also personally reviewed the CT scan of the chest that he had back in 2017 demonstrating some interstitial changes primarily in the upper lung zones. The patient did have multiple pulmonary nodules. Therefore, based on his abnormal chest x-ray and ongoing intermittent coughing with sometimes hemoptysis the patient needs to have a CT scan of the chest. In addition to that will having undergo pulmonary function studies to assess her COPD. 01/08/2021 the patient is here for pulmonary follow-up visit. Overall he is feeling better. Denies any significant hemoptysis at this time. He did undergo his pulmonary function studies which were reassuring without any obstruction no restriction. He does have moderate diffusion impairment. In addition to that he did undergo a repeat CT scan of the chest which was compared to his CT scan from 2017. It demonstrated interval worsening of the bronchiectasis the pulmonary nodules and tree-in-bud. This appears to be more consistent with a smoldering infectious process versus inflammatory process. At this point the patient is agreeable to bronchoscopy to assess for any infectious etiologies and also to rule out malignant processes. 01/30/2021 the patient is here for pulmonary follow-up visit. He is status post bronchoscopy. He did have significant purulent secretions in the airways that were suction. Otherwise no other acute abnormalities noted. His cultures are all negative at this time. Still waiting for the results of the mycobacteria cultures assessing for the possibility of a mycobacterial lung disease. In the meantime he has been using his nebulizer. At this point he is to get an Acapella valve to further provide chest physical therapy with the goal of maintaining good pulmonary hygiene. 07/29/2021 the patient is here for a pulmonary follow-up visit. Overall the patient has been doing much better. He is responding well to the nebulized therapy followed by the Acapella valve. He has been able to clear significant amount of secretions. His lungs appear to be better overall with less congestion. He has been using the nebulizer once a day and I did agree with him decreasing his frequency to once a day at this time. He does have underlying pulmonary nodules. The last time he had a CT scan of the chest was back in November 2020. Will plan to follow-up with a CT scan in 6 months time which should be little bit longer than a year. I am hopeful the nodules are stable we can at that point follow them as needed. However, if the nodules are growing in size further diagnostic interventions will be warranted. 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 At this point the patient is doing well and does not require antimicrobial agents at this time. 10/03/2021 the patient is here for a pulmonary follow-up visit. He continues to have a productive cough on a regular basis. He does use the nebulized therapy and is able to expectorate well. 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 He also understands that treating it will require 17 months of antimicrobial therapy in order to follow the Infectious Disease recommendations. He also understands that there is a high relapse straight even after completing the 17 months. Therefore at this point will follow him closely since his symptoms do not appear to be worsening. We did review his CT scan of the chest demonstrating bronchiectatic changes in addition to pulmonary nodular densities. No evidence of any cavitations at this time. Patient last CT scan was back in 2020. the repeat CT scan scheduled for December 2021. if the nodules are changing increasing of progressing we need to consider treating the mycobacteria infection. In the meantime will try aggressive chest physical therapy by continuing his nebulized therapy and also adding hypertonic saline. The patient does have an Acapella valve any start using it after the nebulized therapy. In addition to that the patient did have a recent fall. He did go to the ER and the scott to the back of his call because of a laceration. He is also complaining of some left-sided flank discomfort from his fall. He does have some point tenderness over the ribs. Likely contusions. He had a CT scan of the brain demonstrating some chronic changes. He did not have any chest imaging studies. At this point will follow-up after his CT scan he is going to continue with aggressive chest physical therapy. 12/24/2021 the patient is here for pulmonary follow-up visit. He describes worsening cough productive in nature. He is also developing increasing shortness of breath. Moderate severity with activity. The patient did have a repeat CT scan of the chest that we personally reviewed demonstrating waxing waning pulmonary nodules in addition to having interval progression of the bronchiectasis and appears to have more treating budding and more progression of his airway disease. This is likely secondary to the smoldering infection with the non tuberculosis mycobacterial infection. He did try the percussion valve without any significant improvement. Therefore this time view of his worsening symptoms and also worsening CT scan will go ahead and start him on therapy. Will try him on the lowest dose possible in order for him to be able to tolerated and we can always consider increasing the medication. Once he is on therapy around 4-6 weeks after worse will get another sputum culture to make sure that he is tolerating the therapy. He also have to undergo blood work and also an EKG to make sure that he can tolerate therapy. Also mentioned on the report of the CT scan is that he does have 2 mild compression fractures. At this point the patient denies any back discomfort. However, in view of the findings the patient should follow up with his primary care doctor to be assessed for the possibility of osteopenia or osteoporosis. 02/25/2022 so the patient is here for a pulmonary follow-up visit. Overall he is doing well from a respiratory status. His cough is overall better. He still expectorating some but much less. He is tolerating the antimycobacterial therapy. Has been on the azithromycin 3 times a week in addition to a lower dose rifampin and ethambutol. Denies any eye Darron just. He did have an EKG back in December without any QT changes. The patient has not had any blood work since then. He will go for blood work to make sure that everything else is stable. In the meantime he is having some diarrhea issues. We did talk about the side effects of the medications and GI symptoms. If his GI symptoms becomes too significant we talked about dropping 1 of the agents to just at the dual therapy. The patient understands that the triple antibiotic regimen to avoid too much resistance buildup due to the mycobacterial resistance possibilities. In the meantime the patient did have a CT scan back in December demonstrating interval worsening of pulmonary nodules and bronchiectatic changes. Will plan to continue the therapy and follow-up with a CT scan in June 2022. The patient meantime will provide us with the sputum sample to make sure that the mycobacterium is eradicating. 06/30/2022 the patient is here for a pulmonary follow-up visit. Overall continues to feel well. His cough is overall better. He is exercising regularly. He is tolerating the triple antimicrobial therapy. The only adverse effect is discoloration of the urine which is common with the rifampin In addition to some diarrhea. We did talk about adding probiotics to his regimen. He will try some [id number] options. He did have a repeat CT scan of the chest demonstrating interval improvement of the cavitary lesions and also improvement of the parenchymal disease. No evidence of any new nodules and he has stable pulmonary nodules. Therefore it is encouraging that the therapy has been clinically affected also radiologically with evidence of improvement. He understands that treatment should at least last been 12-15 months of therapy. His sputum culture repeat has not demonstrated any mycobacterial disease. 12/26/2022 the patient is here for a pulmonary follow-up visit. He continues to do well. His cough is overall better. He continues on the triple antimicrobial therapy. He has completed now 1 year. Based on the fact that the patient is doing better will go ahead and stop the ethambutol and the rifampin and will continue with the azithromycin for now. His last EKG was reassuring. Will plan to continue on the azithromycin and will plan to repeat the CT scan in May 2023. If the patient develops any worsening symptoms prior to that he is to call the office for an earlier evaluation. 06/24/2023 the patient is here for a pulmonary follow-up visit. He continues on the azithromycin 3 times a week 500 mg. He is happy that he is stopped the ethambutol and rifampin. Respiratory tobin the patient is doing well denies any worsening cough or shortness of breath. Although he has had episodes of hemoptysis he states. Is minimal amount scant in amount. At this point is subsided. Still the patient is aware that if it happens again if it is a very more significance he would have to call again in order to address the hemoptysis. He did recently have a CT scan 06/17/2023 which I personally reviewed. It appears patient does have some significant bronchiectasis and nodular densities and tree-in-bud and all are very similar to his previous CT scan at least there is no worsening of disease. He also has a new pulmonary nodule in the right base. Seems to be also related to the underlying mycobacterial disease. At this point will continue with the azithromycin 3 times a week since the patient clinically doing well. Although, if his hemoptysis worsens his respiratory symptoms worsen then will need to readdress that. I will also provide him with a sputum cup in order for him to bring a sputum sample. The patient should get a repeat CT scan 6 months to follow-up with a new pulmonary nodule. 12/16/2023 the patient is here for a pulmonary follow-up visit. Overall he continues to do well. Continues on the azithromycin 500 mg 3 times a week. His cough is improved. Denies any significant congestion. Denies any hemoptysis. Overall the patient has been doing well. Back in July he did grew Klebsiella from his sputum culture. Otherwise has not grown any other organisms. He did have a CT scan of the chest which we personally reviewed and also compared to the CT scans from 10/03/2019 22 in 2022. it appears that he is waxing waning pulmonary nodules along with bronchiectatic changes treating budding and a right upper lobe thick-walled cavitary lesion. For the most part the nodular densities have changed some indeed have gotten little better but again some new ones are present. The patient also has significant bronchiectasis. He has not been using the Acapella valve for chest PT. We did talk about the importance of that. The patient understands that most likely the findings on the CT scan all has to do with mycobacterial disease. Also predisposes him to Other enteric bacteria. Still is hard to know for sure if any of those nodular densities have any malignant potentials. At this point clinically the patient is doing well and therefore this CT scan is also reassuring. Will go ahead and follow-up in 6 months. The patient needs to have an EKG to make sure he is tolerating the macrolide therapy. In addition to that will request another sputum for culture and also AFB. If the patient develops any worsening respiratory symptoms specially hemoptysis needs to call the office quickly. Otherwise will follow-up in 6 months. Will discuss further imaging studies when he returns in 6 months. [facility] Medical History Mycobacterial disease Hernia HLD (hyperlipidemia) BPH (benign prostatic hyperplasia) Bronchiectasis Hemoptysis Pulmonary nodules Cough Abnormal chest x-ray Surgical History Hx of colonoscopy Social History Alcohol intake: never Patient Tobacco Use Status: Former Tobacco user Tobacco use type: Cigarette Years Smoked: 20 years Review of Systems Const Denies headache(s) and Denies night sweats ENT Denies change in voice, Denies headache(s), Denies lip swelling, Denies mouth pain, Reports nasal congestion, Reports nasal discharge and Denies tongue swelling Card Denies chest pain Resp Denies change in phlegm color, Denies chest congestion, Reports cough, Denies hemoptysis, Denies excessive phlegm production, Denies pain on inspiration and Denies pain with cough GI Denies abdominal pain, Denies diarrhea and Reports loose stools Musc Denies no additional complaints Neuro Denies Neuro-related abnormal movements and Denies headache(s) Psych Denies no additional complaints Brad/Lymph Denies easy bleeding and Denies lymphadenopathy Aller/Immun Denies lip swelling and Denies tongue swelling Physical Exam Vital Signs: Last Vital Signs Pulse 64 12/16/23 09:55 BP 120/60 12/16/23 09:55 Pulse Ox 99 12/16/23 09:55 Oxygen Delivery Method Room Air 12/16/23 09:55 BMI result Body Mass Index 20.7 Const General: alert Neck Neck: Yes normal visual inspection, Yes full ROM and Yes no lymphadenopathy Chest Chest palpation & inspection: normal inspection of the chest Resp Auscultation: no rhonchi, no wheezes and diminished lung sounds Cardio Rate: regular rate Rhythm: regular rhythm Heart sounds: S1 normal heart sound present and S2 normal heart sound present GI Palpation (GI): Soft to palpation and nontender Auscultation: normal bowel sounds Results Reviewed Results Reviewed: Freeman King??83??M??1940 ? Allergy/Adv: latex, [Band-Aid], [neosporin] (More??) Close Chest CT (Signed) Kelsea Diaz - 11/23/[address] (Signed) Kelsea Diaz - 06/17/[address] (Signed) Gonzalo Samayoa - 05/29/[address] (Signed) Carol Syed - 12/17/[address] (Signed) Arose,Zack - 10/21/[address] (Signed) Arose,Zack - 10/21/[address] (Signed) Carol Syed - 11/16/20 Venous Duplex (Signed) Semaj Sellers - 09/27/20 Chest X-Ray (Signed) Gonzalo Samayoa - 09/25/20 Launch?Image [place] [id number] CT Scan Report Signed Patient: Freeman King MR#: [id number] : 1940 Acct:[id number] Age/Sex: 83 / M ADM Date: 11/23/23 Loc: HO.CT Attending Dr: Denilson Minor MD Ordering Physician: Denilson Minor MD Date of Service: 11/23/23 Procedure(s): CT chest wo IV con Accession Number(s): [id number] cc: Robbie Kothari MD; Denilson Minor MD~ EXAMINATION: CT CHEST WITHOUT CONTRAST CLINICAL INFORMATION: Pulmonary nodules COMPARISON: CTs, most recent, 06/17/2023 TECHNIQUE: Multidetector volumetric CT imaging of the chest was done. Axial MIP volume rendering provided. Sagittal and coronal reformatted images were obtained. This CT examination was performed using dose optimization techniques as appropriate, variously including the following: *Automated exposure control *Adjustment of mA and/or kV according to patient size (this includes techniques or standardized protocols for targeted exams where dose is matched to indication/reason for exam; i.e. extremities or head) *Use of iterative reconstruction technique DLP: 211 mGy-cm FINDINGS: PROFESSOR COMPUTER SCIENCE: Hyperinflation and centrilobular emphysema. Right upper lobe scarring/retraction. Left mid/upper reticulonodular increased markings. LUNGS: Trachea and bronchi are patent. Bilateral upper lobe retraction. Bilateral bronchiectasis, predominantly in the upper lobes with wall thickening and mucous plugging. Unchanged RUL thick-walled cavitary nodule, 3:18. Scattered ill-defined pulmonary opacities, some of which may represent mucous plugging. These are increasing in the left lower lobe, 5:276 and right lower lobe, 5:479. 1 cm LLL 6 pleural-based nodule on previous study has decreased in size, now measuring 7 mm, 5:311. MEDIASTINUM: Left thyroid calcification again seen. Nonspecific lymph nodes. Nonenlarged heart. Atherosclerotic calcifications nonaneurysmal aorta. Ectatic pulmonary arteries. CORONARY ARTERY CALCIFICATION: Moderate PLEURA: There is no pleural effusion. No pleural mass or thickening. AXILLA: No lymphadenopathy. UPPER ABDOMEN: Unchanged hepatic and right renal cysts. OSSEOUS STRUCTURES: Unremarkable. CT/CT chest wo IV con IMPRESSION: Redemonstration waxing and waning pulmonary opacities/nodules, increasing in the bilateral lower lobes while 1 cm pleural-based nodule seen on previous study has demonstrated interval decrease in size. Irregular pulmonary nodules are seen in the setting of predominantly upper lobe chronic bronchiectasis/mucous plugging, emphysema and stable 1.3 cm right upper lobe cavitary lesion. Diagnostic considerations continue to include, but are not limited to TB, NAYA, and fungal infections. Neoplastic process cannot be excluded. Consider follow-up chest CT in 6 months. Dictated By: Kelsea Diaz MD Signed By: <Electronically signed by Kelsea Diaz MD in OV> 11/25/23 1436 DD/ 0740 TD/TT: Slab Installer: Assessment & Plan Assessment & Plan (1) Bronchiectasis: Code(s): J47.9 - Bronchiectasis, uncomplicated Qualifiers: Bronchiectasis type: uncomplicated Qualified Code(s): J47.9 - Bronchiectasis, uncomplicated (2) Pulmonary nodules: Code(s): R91.8 - Other nonspecific abnormal finding of lung field (3) Cough: Code(s): R05 - Cough Qualifiers: Cough type: chronic Qualified Code(s): R05.3 - Chronic cough (4) Mycobacterial disease: Code(s): A31.9 - Mycobacterial infection, unspecified Plan CPT with neb and acapella valve continue azithromycin 500mg MWF Probiotics EKG Repeat sputum culture and AFB when able F/U 6 months Orders: Orders Acid-fast Culture + Smear Today A31.9 - Mycobacterial infection, unspecified, J47.9 - Bronchiectasis, uncomplicated Sputum Cult + Gram stain Today A31.9 - Mycobacterial infection, unspecified, J47.9 - Bronchiectasis, uncomplicated ECG 12 lead EKG Today J44.9 - Chronic obstructive pulmonary disease, unspecified Coding Level of Care Code Est Pt Level 4 (99746) Diagnoses Bronchiectasis without complication J47.9 Bronchiectasis type: uncomplicated Pulmonary nodules R91.8 Chronic cough R05.3 Cough type: chronic Mycobacterial disease A31.9 Time Spent (min) 18
== END 2023-12-16 10:21 | disposition home or self-care (01) ==
PROVIDERS: PCP Internal Medicine Medical Oncology; Visit Provider Hospitalist
DX: J47.9 Bronchiectasis, uncomplicated (principal); R91.8 Other nonspecific abnormal finding of lung field; R05.3 Chronic cough; A31.9 Mycobacterial infection, unspecified
CPT/HCPCS: 99214

== ENCOUNTER → 2023-12-16 09:37 | Outpatient (BNVA) | payer MEDICARE, SELFPAY | PROVIDERS: PCP Internal Medicine Medical Oncology; Visit Provider Hospitalist | DX: R91.8 Other nonspecific abnormal finding of lung field (principal); J47.9 Bronchiectasis, uncomplicated; R05.3 Chronic cough; A31.9 Mycobacterial infection, unspecified | CPT/HCPCS: 99212 ==

== ENCOUNTER 2023-12-18 12:56 | Outpatient (REF) | payer MEDICARE, SELFPAY | END 2023-12-18 12:57 | disposition home or self-care (01) | LOC: HO.LNP 12:56 | PROVIDERS: Visit Provider Hospitalist | DX: A31.9 Mycobacterial infection, unspecified (principal); J47.9 Bronchiectasis, uncomplicated | CPT/HCPCS: 87070; 87116; 87205; 87206 ==

== ENCOUNTER → 2023-12-22 07:15 | Outpatient (REF) | payer MEDICARE, SELFPAY ==
--- NOTE | 2023-12-22 07:22 | ECG_ITS ---
Test Reason : check rhythm respiratory Blood Pressure : / mmHG Vent. Rate : 061 BPM Atrial Rate : 061 BPM P-R Int : 222 ms QRS Dur : 108 ms QT Int : 414 ms P-R-T Axes : -20 090 069 degrees QTc Int : 416 ms Sinus rhythm with marked sinus arrhythmia with 1st degree A-V block Rightward axis Borderline ECG When compared with ECG of 23-DEC-2022 07:01, Premature ventricular complexes are no longer Present Referred By: Denilson Minor Electronically Signed By:Francis Ivory
== END ==
LOC: HO.CARD 07:15
PROVIDERS: PCP Internal Medicine Medical Oncology; Visit Provider Hospitalist
DX: J44.9 Chronic obstructive pulmonary disease, unspecified (principal)
CPT/HCPCS: 93005

== ENCOUNTER → 2023-12-22 07:22 | Outpatient (BNV) | payer MEDICARE, SELFPAY | PROVIDERS: PCP Internal Medicine Medical Oncology; Visit Provider Internal Medicine Cardiovascular Disease | DX: I44.0 Atrioventricular block, first degree (principal) | CPT/HCPCS: 93010 ==

== ENCOUNTER 2024-06-17 09:37 | Outpatient (AMB) | payer MEDICARE, SELFPAY ==
[2024-06-17 09:44] VITALS: BP 130/70; PULSE 68; O2SAT 97; BMI 21.5
--- NOTE | 2024-06-17 09:44 | A.OFFVIS_ITS ---
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 The patient followed for many years with CT scan following some abnormal findings including pulmonary nodules and interstitial changes. Ultimately no significant findings were noted. For the last year the patient has had episodes of coughing up blood. He has not coughed up blood now more than 6 months. He denies any weight loss or night sweats. He states that he walks about a mi a day and denies any shortness of breath. He has been evaluated for cardiac symptoms including palpitations. At this point the patient does not use any respiratory inhalers. He does not feel like he needs new either. We did look at his chest x-ray from September 2020 demonstrating some increased interstitial changes compared to his previous x-ray from 2019. We personally reviewed that x-ray was also personally reviewed the CT scan of the chest that he had back in 2017 demonstrating some interstitial changes primarily in the upper lung zones. The patient did have multiple pulmonary nodules. Therefore, based on his abnormal chest x-ray and ongoing intermittent coughing with sometimes hemoptysis the patient needs to have a CT scan of the chest. In addition to that will having undergo pulmonary function studies to assess her COPD. 01/08/2021 the patient is here for pulmonary follow-up visit. Overall he is feeling better. Denies any significant hemoptysis at this time. He did undergo his pulmonary function studies which were reassuring without any obstruction no restriction. He does have moderate diffusion impairment. In addition to that he did undergo a repeat CT scan of the chest which was compared to his CT scan from 2017. It demonstrated interval worsening of the bronchiectasis the pulmonary nodules and tree-in-bud. This appears to be more consistent with a smoldering infectious process versus inflammatory process. At this point the patient is agreeable to bronchoscopy to assess for any infectious etiologies and also to rule out malignant processes. 01/30/2021 the patient is here for pulmonary follow-up visit. He is status post bronchoscopy. He did have significant purulent secretions in the airways that were suction. Otherwise no other acute abnormalities noted. His cultures are all negative at this time. Still waiting for the results of the mycobacteria cultures assessing for the possibility of a mycobacterial lung disease. In the meantime he has been using his nebulizer. At this point he is to get an Acapella valve to further provide chest physical therapy with the goal of maintaining good pulmonary hygiene. 07/29/2021 the patient is here for a pulmonary follow-up visit. Overall the patient has been doing much better. He is responding well to the nebulized therapy followed by the Acapella valve. He has been able to clear significant amount of secretions. His lungs appear to be better overall with less congestion. He has been using the nebulizer once a day and I did agree with him decreasing his frequency to once a day at this time. He does have underlying pulmonary nodules. The last time he had a CT scan of the chest was back in November 2020. Will plan to follow-up with a CT scan in 6 months time which should be little bit longer than a year. I am hopeful the nodules are stable we can at that point follow them as needed. However, if the nodules are growing in size further diagnostic interventions will be warranted. 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 At this point the patient is doing well and does not require antimicrobial agents at this time. 10/03/2021 the patient is here for a pulmonary follow-up visit. He continues to have a productive cough on a regular basis. He does use the nebulized therapy and is able to expectorate well. 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 He also understands that treating it will require 17 months of antimicrobial therapy in order to follow the Infectious Disease recommendations. He also understands that there is a high relapse straight even after completing the 17 months. Therefore at this point will follow him closely since his symptoms do not appear to be worsening. We did review his CT scan of the chest demonstrating bronchiectatic changes in addition to pulmonary nodular densities. No evidence of any cavitations at this time. Patient last CT scan was back in 2020. the repeat CT scan scheduled for December 2021. if the nodules are changing increasing of progressing we need to consider treating the mycobacteria infection. In the meantime will try aggressive chest physical therapy by continuing his nebulized therapy and also adding hypertonic saline. The patient does have an Acapella valve any start using it after the nebulized therapy. In addition to that the patient did have a recent fall. He did go to the ER and the scott to the back of his call because of a laceration. He is also complaining of some left-sided flank discomfort from his fall. He does have some point tenderness over the ribs. Likely contusions. He had a CT scan of the brain demonstrating some chronic changes. He did not have any chest imaging studies. At this point will follow-up after his CT scan he is going to continue with aggressive chest physical therapy. 12/24/2021 the patient is here for pulmonary follow-up visit. He describes worsening cough productive in nature. He is also developing increasing shortness of breath. Moderate severity with activity. The patient did have a repeat CT scan of the chest that we personally reviewed demonstrating waxing waning pulmonary nodules in addition to having interval progression of the bronchiectasis and appears to have more treating budding and more progression of his airway disease. This is likely secondary to the smoldering infection with the non tuberculosis mycobacterial infection. He did try the percussion valve without any significant improvement. Therefore this time view of his worsening symptoms and also worsening CT scan will go ahead and start him on therapy. Will try him on the lowest dose possible in order for him to be able to tolerated and we can always consider increasing the medication. Once he is on therapy around 4-6 weeks after worse will get another sputum culture to make sure that he is tolerating the therapy. He also have to undergo blood work and also an EKG to make sure that he can tolerate therapy. Also mentioned on the report of the CT scan is that he does have 2 mild compression fractures. At this point the patient denies any back discomfort. However, in view of the findings the patient should follow up with his primary care doctor to be assessed for the possibility of osteopenia or osteoporosis. 02/25/2022 so the patient is here for a pulmonary follow-up visit. Overall he is doing well from a respiratory status. His cough is overall better. He still expectorating some but much less. He is tolerating the antimycobacterial therapy. Has been on the azithromycin 3 times a week in addition to a lower dose rifampin and ethambutol. Denies any eye Darron just. He did have an EKG back in December without any QT changes. The patient has not had any blood work since then. He will go for blood work to make sure that everything else is stable. In the meantime he is having some diarrhea issues. We did talk about the side effects of the medications and GI symptoms. If his GI symptoms becomes too significant we talked about dropping 1 of the agents to just at the dual therapy. The patient understands that the triple antibiotic regimen to avoid too much resistance buildup due to the mycobacterial resistance possibilities. In the meantime the patient did have a CT scan back in December demonstrating int erval worsening of pulmonary nodules and bronchiectatic changes. Will plan to continue the therapy and follow-up with a CT scan in June 2022. The patient meantime will provide us with the sputum sample to make sure that the mycobacterium is eradicating. 06/30/2022 the patient is here for a pulmonary follow-up visit. Overall continues to feel well. His cough is overall better. He is exercising regularly. He is tolerating the triple antimicrobial therapy. The only adverse effect is discoloration of the urine which is common with the rifampin In addition to some diarrhea. We did talk about adding probiotics to his regimen. He will try some [id number] options. He did have a repeat CT scan of the chest demonstrating interval improvement of the cavitary lesions and also improvement of the parenchymal disease. No evidence of any new nodules and he has stable pulmonary nodules. Therefore it is encouraging that the therapy has been clinically affected also radiologically with evidence of improvement. He understands that treatment should at least last been 12-15 months of therapy. His sputum culture repeat has not demonstrated any mycobacterial disease. 12/26/2022 the patient is here for a pulmonary follow-up visit. He continues to do well. His cough is overall better. He continues on the triple antimicrobial therapy. He has completed now 1 year. Based on the fact that the patient is doing better will go ahead and stop the ethambutol and the rifampin and will continue with the azithromycin for now. His last EKG was reassuring. Will plan to continue on the azithromycin and will plan to repeat the CT scan in May 2023. If the patient develops any worsening symptoms prior to that he is to call the office for an earlier evaluation. 06/24/2023 the patient is here for a pulmonary follow-up visit. He continues on the azithromycin 3 times a week 500 mg. He is happy that he is stopped the ethambutol and rifampin. Respiratory tobin the patient is doing well denies any worsening cough or shortness of breath. Although he has had episodes of hemoptysis he states. Is minimal amount scant in amount. At this point is subsided. Still the patient is aware that if it happens again if it is a very more significance he would have to call again in order to address the hemoptysis. He did recently have a CT scan 06/17/2023 which I personally reviewed. It appears patient does have some significant bronchiectasis and nodular densities and tree-in-bud and all are very similar to his previous CT scan at least there is no worsening of disease. He also has a new pulmonary nodule in the right base. Seems to be also related to the underlying mycobacterial disease. At this point will continue with the azithromycin 3 times a week since the patient clinically doing well. Although, if his hemoptysis worsens his respiratory symptoms worsen then will need to readdress that. I will also provide him with a sputum cup in order for him to bring a sputum sample. The patient should get a repeat CT scan 6 months to follow-up with a new pulmonary nodule. 12/16/2023 the patient is here for a pulmonary follow-up visit. Overall he continues to do well. Continues on the azithromycin 500 mg 3 times a week. His cough is improved. Denies any significant congestion. Denies any hemoptysis. Overall the patient has been doing well. Back in July he did grew Klebsiella from his sputum culture. Otherwise has not grown any other organisms. He did have a CT scan of the chest which we personally reviewed and also compared to the CT scans from 10/03/2019 22 in 2022. it appears that he is waxing waning pulmonary nodules along with bronchiectatic changes treating budding and a right upper lobe thick-walled cavitary lesion. For the most part the nodular densities have changed some indeed have gotten little better but again some new ones are present. The patient also has significant bronchiectasis. He has not been using the Acapella valve for chest PT. We did talk about the importance of that. The patient understands that most likely the findings on the CT scan all has to do with mycobacterial disease. Also predisposes him to Other enteric bacteria. Still is hard to know for sure if any of those nodular densities have any malignant potentials. At this point clinically the patient is doing well and therefore this CT scan is also reassuring. Will go ahead and follow-up in 6 months. The patient needs to have an EKG to make sure he is tolerating the macrolide therapy. In addition to that will request another sputum for culture and also AFB. If the patient develops any worsening respiratory symptoms specially hemoptysis needs to call the office quickly. Otherwise will follow-up in 6 months. Will discuss further imaging studies when he returns in 6 months. 06/17/2024 the patient is here for a pulmonary follow-up visit. Overall he continues to do well cough is better chest congestion is better overall feels normal. The patient had sputum cultures back in December indeed positive for mycobacterium still. The organism still sensitive to the azithromycin. Initially he was not a broader course of antimicrobial therapy and subsequently we were able to switch him down to monitor therapy. Currently he is going to send a small prophylactic dose of azithromycin. His imaging studies CT scans have not changed which is reassuring as well. Has waxing waning pulmonary nodules. Although he has extensive bronchiectatic changes because of the chronicity of the non tuberculosis mycobacterial infection. Still though since the patient is doing well and he is fairly asymptomatic and also considering the risks additional medications at this time based on his age and other comorbidities will go ahead and just keep him on the azithromycin 3 times a week at the current dose. If any worsening symptoms we call. Otherwise will follow-up with a chest x-ray in 6 months. Prior to the next visit he should a lso get an EKG. [facility] Medical History Mycobacterial disease Hernia HLD (hyperlipidemia) BPH (benign prostatic hyperplasia) Bronchiectasis Hemoptysis Pulmonary nodules Cough Abnormal chest x-ray Surgical History Hx of colonoscopy Social History Alcohol intake: never Patient Tobacco Use Status: Former Tobacco user Tobacco use type: Cigarette Years Smoked: 20 years Review of Systems Const Denies headache(s) and Denies night sweats ENT Denies change in voice, Denies headache(s), Denies lip swelling, Denies mouth pain, Reports nasal congestion, Reports nasal discharge and Denies tongue swelling Card Denies chest pain Resp Denies change in phlegm color, Denies chest congestion, Reports cough, Denies hemoptysis, Denies excessive phlegm production, Denies pain on inspiration and Denies pain with cough GI Denies abdominal pain, Denies diarrhea and Reports loose stools Musc Denies no additional complaints Neuro Denies Neuro-related abnormal movements and Denies headache(s) Psych Denies no additional complaints Brad/Lymph Denies easy bleeding and Denies lymphadenopathy Aller/Immun Denies lip swelling and Denies tongue swelling Physical Exam Vital Signs: Last Vital Signs Pulse 68 06/17/24 09:44 BP 130/70 06/17/24 09:44 Pulse Ox 97 06/17/24 09:44 Oxygen Delivery Method Room Air 06/17/24 09:44 BMI result Body Mass Index 21.5 Const General: alert Neck Neck: Yes normal visual inspection, Yes full ROM and Yes no lymphadenopathy Chest Chest palpation & inspection: normal inspection of the chest Resp Auscultation: no rhonchi, no wheezes and diminished lung sounds Cardio Rate: regular rate Rhythm: regular rhythm Heart sounds: S1 normal heart sound present and S2 normal heart sound present GI Palpation (GI): Soft to palpation and nontender Auscultation: normal bowel sounds Assessment & Plan Assessment & Plan (1) Bronchiectasis: Code(s): J47.9 - Bronchiectasis, uncomplicated Category: Medical Qualifiers: Bronchiectasis type: uncomplicated Qualified Code(s): J47.9 - Bronchiectasis, uncomplicated (2) Pulmonary nodules: Code(s): R91.8 - Other nonspecific abnormal finding of lung field Category: Medical (3) Cough: Code(s): R05 - Cough Category: Medical Qualifiers: Cough type: chronic Qualified Code(s): R05.3 - Chronic cough (4) Mycobacterial disease: Code(s): A31.9 - Mycobacterial infection, unspecified Category: Medical Plan CPT with neb and acapella valve continue azithromycin 500mg MWF Probiotics EKG CXR Repeat sputum culture and AFB when able F/U 6 months Orders: Orders Acid-fast Culture + Smear 06/17/24 J47.9 - Bronchiectasis, uncomplicated, R91.8 - Other nonspecific abnormal finding of lung field ECG 12 lead EKG 06/17/24 J44.9 - Chronic obstructive pulmonary disease, unspecified, J47.9 - Bronchiectasis, uncomplicated, R91.8 - Other nonspecific abnormal finding of lung field XR chest 2V 06/17/24 J47.9 - Bronchiectasis, uncomplicated, R91.8 - Other nonspecific abnormal finding of lung field Coding Level of Care Code Est Pt Level 4 (52088) Complex EM visit Add On G2211 Diagnoses Bronchiectasis without complication J47.9 Bronchiectasis type: uncomplicated Pulmonary nodules R91.8 Chronic cough R05.3 Cough type: chronic Mycobacterial disease A31.9 Time Spent (min) 17
== END 2024-06-17 10:04 | disposition home or self-care (01) ==
PROVIDERS: PCP Internal Medicine Medical Oncology; Visit Provider Hospitalist
DX: J47.9 Bronchiectasis, uncomplicated (principal); R91.8 Other nonspecific abnormal finding of lung field; R05.3 Chronic cough; A31.9 Mycobacterial infection, unspecified
CPT/HCPCS: 99214; G2211

== ENCOUNTER → 2024-06-17 09:37 | Outpatient (BNVA) | payer MEDICARE, SELFPAY | PROVIDERS: PCP Internal Medicine Medical Oncology; Visit Provider Hospitalist | DX: J43.9 Emphysema, unspecified (principal); J47.9 Bronchiectasis, uncomplicated; R91.8 Other nonspecific abnormal finding of lung field; R05.3 Chronic cough; A31.9 Mycobacterial infection, unspecified | CPT/HCPCS: 99212 ==

== ENCOUNTER 2024-06-27 11:00 | Outpatient (REF) | payer MEDICARE, SELFPAY | END 2024-06-27 11:01 | disposition home or self-care (01) | LOC: HO.LNP 11:00 | PROVIDERS: Visit Provider Hospitalist | DX: J47.9 Bronchiectasis, uncomplicated (principal); R91.8 Other nonspecific abnormal finding of lung field | CPT/HCPCS: 87116; 87118; 87206 ==

== ENCOUNTER 2024-10-27 10:35 | Emergency (ER) | payer MEDICARE, SELFPAY ==
--- NOTE | ~2024-10-27 | CT_ITS ---
EXAMINATION: CT CERVICAL SPINE WITHOUT CONTRAST CLINICAL INFORMATION: ? Trauma. COMPARISON: 10/21/2021. TECHNIQUE: Spiral CT imaging of the cervical spine performed in axial plane without contrast. Multiplanar reformatted images were constructed from the axial data set. This CT examination was performed using dose optimization techniques as appropriate, variously including the following: *Automated exposure control *Adjustment of mA and/or kV according to patient size (this includes techniques or standardized protocols for targeted exams where dose is matched to indication/reason for exam; i.e. extremities or head) *Use of iterative reconstruction technique FINDINGS: CORONAL ALIGNMENT: -Normal. SAGITTAL ALIGNMENT: Straightening of the normal lordosis. 2 mm degenerative type anterolisthesis C4 on C5. Alignment is otherwise anatomic. C1-C2 AND CRANIOCERVICAL JUNCTION: -Intact and normally aligned. There are associated moderate degenerative changes at the atlantoaxial joint. There is mild calcified pannus present without craniocervical junction narrowing. VERTEBRAL BODIES AND FACETS: -No fracture, traumatic subluxation, or suspicious bone lesion. No compression deformity. -Facets appear normally aligned without subluxations. There is partial fusion of the left C3-4 facet joints. There are multilevel degenerative facet changes right greater than left. This is most notable at C3-C5. DISCS: -Severe loss of disc space C5-6 with sclerotic type endplate changes. There are productive osteophytic changes. Otherwise, moderate to severe loss C6-7, and moderate loss at C2-C4. PREVERTEBRAL AND PARAVERTEBRAL SOFT TISSUES: -Normal. No pre or paravertebral soft tissue swelling or fluid collection. -Mildly atrophic appearing thyroid. Macrocalcification in the inferior left pole. -Mild bilateral carotid bulb calcification. -No masses or lymphadenopathy. LUNG APICES: -There is extensive scarring and bronchiectasis in the imaged lung apices. -There is no high-grade canal stenosis identified. CT/CT cervical spine wo IV con IMPRESSION: 1. No CT evidence of acute cervical spine fracture or injury. 2. Multilevel degenerative spondylosis most significant at C5-6. 3. Scarring and bronchiectasis in the bilateral lung apices. Electronically signed by: Zohaib Brown MD 10/27/2024 02:23 PM [facility]
--- NOTE | ~2024-10-27 | XR_ITS ---
EXAMINATION: XR CHEST CLINICAL INFORMATION: ams COMPARISON: CT chest 11/23/2023. TECHNIQUE: Frontal view of the chest was obtained. FINDINGS: The cardiac, hilar, and mediastinal contours are normal. Lungs demonstrate hyperaeration, chronic scarring and bronchiectasis in the right upper lobe distribution, as well as the left midlung. There are new patchy opacities in the right mid and lower lung foci centrally and peripherally suspicious for new infectious/inflammatory disease. No pneumothorax or effusion. No focal osseous or soft tissue abnormalities. XR/XR chest 1V IMPRESSION: 1. Compared with CT chest 11/23/2023, there are new peribronchial patchy opacities in the right mid and lower lung suspicious for new infectious/inflammatory disease. 2. Chronic bronchiectasis and reticular opacities in the right upper lobe and left midlung, similar to the prior. 3. No effusion. No pneumothorax. Electronically signed by: Zohaib Brown MD 10/27/2024 01:41 PM EST
--- NOTE | ~2024-10-27 | CT_ITS ---
EXAMINATION: CT HEAD WITHOUT CONTRAST (STROKE PROTOCOL) CLINICAL INFORMATION: Stroke protocol. Altered mental status, confusion since yesterday. COMPARISON: 10/21/2021. TECHNIQUE: Contiguous axial imaging was performed from the skull base to vertex without intravenous administration of contrast. This CT examination was performed using dose optimization techniques as appropriate, variously including the following: *Automated exposure control *Adjustment of mA and/or kV according to patient size (this includes techniques or standardized protocols for targeted exams where dose is matched to indication/reason for exam; i.e. extremities or head) *Use of iterative reconstruction technique FINDINGS: There is an intraparenchymal hematoma centered in the left temporal lobe, with associated mass effect, localized sulcal effacement, and abutting edema. The hematoma measures approximately 7.2 x 3.6 x 3.0 cm (AP, TRV, CC). There is a small amount of hemorrhage within the ventricular system layering in the left greater than right temporal horns. Small amounts of subarachnoid hemorrhage are present in the left temporal lobe. There is resultant mass effect and [id number] midline shift of 3 mm. There is mass effect upon the left lateral ventricle atrium and temporal horn, with stable appearing mild dilatation of the right lateral ventricle. There is no ventricular trapping or impending herniation. Negative hyperdense MCA sign. Negative insular ribbon sign. There is moderate supratentorial white matter hypointensity in keeping with small vessel ischemic change. Globes and orbital contents demonstrate demonstrate placement. There is no extracranial soft tissue abnormality identified. There are no fractures. The paranasal sinuses and mastoids are normally aerated. CT/CT head for STROKE IMPRESSION: 1. Acute left temporal intraparenchymal hematoma measuring 7.2 x 3.6 x 3.0 cm (AP, TRV, CC). Etiology is unclear although differential includes hemorrhagic conversion of inferior branch left MCA versus posttraumatic etiology. Unusual location for hypertensive hemorrhage. Aneurysmal hemorrhage is also a possibility. 2. Small amounts of subarachnoid hemorrhage in the left temporal region, and tiny amount of hemorrhage within the ventricular system. No acute hydrocephalus. Mass effect upon the left temporal horn and atrium. 3. There is 3 mm of [id number]-[id number] midline shift. No impending herniation at this time. This critical result was discussed with Alejandrina Mazariegos at 12:11 PM, on 10/27/2024 via phone call. Electronically signed by: Zohaib Brown MD 10/27/2024 12:14 PM [facility]
[2024-10-27 10:42] VITALS: BP 143/82; PULSE 94; RESP 18; TEMP 36.4; O2SAT 98; BMI 19.6
[2024-10-27 11:13] LABS: MANUAL DIFF FLAG NO
[2024-10-27 11:16] LABS: Basophils Percent Auto 0.3 % (0-2); Hematocrit 41.7 % (42.0-52.0); Hemoglobin 14.6 g/dl (14.0-18.0); Imm Gran Abs Auto 0.02 X10*3/uL (0.00-0.03); Imm Gran Pct Auto 0.3 % (0.0-0.4); Lymphocytes Absolute Auto 0.5 X10*3/uL (1.2-4.9); Lymphocytes Percent Auto 6.8 % (20-40); Mean Corpuscular Hemoglobin 31.9 pg (27.0-33.0); Mean Platelet Volume 9.5 fL (9.4-12.4); Monocytes Absolute Auto 0.3 X10*3/uL (0.1-1.2); Monocytes Percent Auto 3.5 % (2-11); Neutrophils Absolute Auto 6.3 x10*3/uL (2.0-8.3); Neutrophils Percent Auto 89.1 % (45-73); Platelet Count 198 X10*3/uL (160-400); Red Blood Count 4.58 X10*6/uL (4.60-5.80); Red Cell Distribution Width 12.6 % (11.0-16.0); White Blood Count 7.1 X10*3/uL (4.8-10.8)
--- NOTE | 2024-10-27 11:27 | ECG_ITS ---
Test Reason : CONFUSED Blood Pressure : */* mmHG Vent. Rate : 86 BPM Atrial Rate : 86 BPM P-R Int : 262 ms QRS Dur : 92 ms QT Int : 382 ms P-R-T Axes : 81 93 55 degrees QTcB Int : 457 ms Sinus rhythm with 1st degree A-V block Rightward axis Borderline ECG When compared with ECG of 22-Dec-2023 07:27, No significant change was found Referred By: Alejandrina Mazariegos Electronically Signed By: ARTIE BLACK MD
--- NOTE | 2024-10-27 11:34 | ED_ITS ---
HPI - Weakness General Chief complaint: Weakness Stated complaint: Sudden confusion, vomiting Time Seen by Provider: 10/27/24 11:05 Source: patient, family, RN notes reviewed and old records reviewed Mode of arrival: ambulatory History of Present Illness ED Provider: Alejandrina Mazariegos PA-C HPI Narrative: 84-year-old male with a past medical history HLD, BPH, bronchiectasis, presenting to ED with family complaining confusion, headache, nausea and vomiting noted yesterday afternoon around 15:00 after patient came inside from shoveling/ice picking. Family reports patient complained of headache and was having some confusion/word-finding difficulty which has persisted through today. Unknown fall while outside, patient denies however is unsure. Denies anticoagulation use. Denies focal weakness, abdominal pain, CP/SOB, back pain. Related Data Home Medications ?Medication ?Instructions ?Recorded ?Confirmed atorvastatin 10 mg tablet 10 mg PO DAILY 11/06/20 01/08/21 nebulizers 06/30/22 coenzyme Q10 300 mg capsule 300 mg PO .QOD 12/16/23 Previous Rx's ?Medication ?Instructions ?Recorded ibuprofen 600 mg tablet 600 mg PO Q8H PRN pain #20 tabs 10/22/21 sodium chloride 3 % for 4 ml inhalation BID 30 days #240 mL 10/22/21 nebulization albuterol sulfate 2.5 mg/3 mL 2.5 mg (3 mL) inhalation Q4-6H PRN 11/03/23 (0.083 %) solution for nebulization shortness of breath or wheezing #180 mL azithromycin 500 mg tablet 500 mg PO 3XW 90 days #39 tabs 06/06/24 Allergies Allergy/AdvReac Type Severity Reaction Status Date / Time latex [LATEX] Allergy Intermediate RASH Verified 10/27/24 10:46 Band-Aid Allergy Severe rash Uncoded 06/17/24 09:46 neosporin Allergy Severe rash Uncoded 06/17/24 09:46 Review of Systems 2 Review of Systems: Yes all other systems are reviewed and are negative Constitutional: Constitutional: Reports as per HPI Neurologic: Denies Sensory deficit (Neuro) [facility] Past Medical History Attestation statement: The following information was validated with the patient. Source: old records reviewed Medical History Mycobacterial disease Hernia HLD (hyperlipidemia) BPH (benign prostatic hyperplasia) Bronchiectasis Hemoptysis Pulmonary nodules Cough Abnormal chest x-ray Surgical History Hx of colonoscopy Social History Social History Alcohol intake: former Patient Tobacco Use Status: Former Tobacco user Tobacco use type: Cigarette Years Smoked: 20 years Smoked in Last 30 Days: No Use of substances other than those prescribed or required for medical reasons: No Advance Directives: No Advance Directives Information Provided: Yes Do you have a plan to hurt others: No Plan Physical Exam 2 Vital Signs: Vital Signs: Last Vital Signs Temp 98.1 F 10/27/24 12:01 Pulse 86 10/27/24 14:32 Resp 16 10/27/24 14:32 BP 131/71 10/27/24 14:32 Pulse Ox 96 10/27/24 14:32 O2 Del Method Room Air 10/27/24 14:32 BMI result Body Mass Index 19.6 Const: General: cooperative, healthy appearing and no acute distress O rientation/consciousness: patient oriented x3 Limitations: no limitations HEENT: Head: Yes normal to inspection and Yes atraumatic Ears: hearing grossly normal bilaterally General nose exam: Normal external nose present Face and sinus: Yes normal facial exam Eyes: General: appearance normal, both eyes and all related structures EOM: EOMs intact bilaterally Neck: Neck: Yes normal visual inspection and Yes no meningeal signs Resp: Effort & Inspection: normal respiratory effort and no respiratory distress Auscultation: clear to auscultation bilaterally, no crackles, no rhonchi and no wheezes Cardio: Rate: regular rate Heart sounds: S1 normal heart sound present and S2 normal heart sound present GI: Inspection: Yes normal to inspection Palpation (GI): Soft to palpation, nontender, no guarding and not rigid Back/Spine/Pelvis: Other: No midline cervical/thoracic/lumbar spinous tenderness/step-off or deformity Skin: Rashes: no rashes Wounds: no wounds Neuro: General: patient oriented x3, tone normal and no meningeal signs C ranial nerves: Yes CN's II-XII intact bilaterally Cognition (Neuro): abnormal cognition Speech: Anomia present Gait exam (Neuro): Normal gait present Motor exam (neuro): 5/5 motor strength present throughout, Pronator motor function not present and no tremor noted Sensory Exam: No Sensory deficit (Neuro) Coordination: [id number] test normal Romberg Test: Negative Extrem: General: Yes normal to inspection Course Course Course Narrative: 1219--CT head for STROKE IMPRESSION: 1. Acute left temporal intraparenchymal hematoma measuring 7.2 x 3.6 x 3.0 cm (AP, TRV, CC). Etiology is unclear although differential includes hemorrhagic conversion of inferior branch left MCA versus posttraumatic etiology. Unusual location for hypertensive hemorrhage. Aneurysmal hemorrhage is also a possibility. 2. Small amounts of subarachnoid hemorrhage in the left temporal region, and tiny amount of hemorrhage within the ventricular system. No acute hydrocephalus. Mass effect upon the left temporal horn and atrium. 3. There is 3 mm of [id number]-[id number] midline shift. No impending herniation at this time. > [facility] transfer line called -1225--sodium 131. Magnesium 1.5. Labs otherwise reassuring. Viral testing negative -1226--[facility] paging out to Neuro ICU -1333--still waiting to hear back from [facility] ICU. [place] spoke with transfer line again, they are still waiting as well. -1352--spoke with Dr. Cota at [facility], patient accepted to their ICU. Recommended keeping blood pressure below 150. They do not have physical bed at this time, will call back with bed availability. Recommended initiating nicardipine drip if blood pressure is uncontrolled. -1440--bed assignment given. Medications Administered Discontinued Medications Generic Name Dose Route Start Last Admin Trade Name Freq PRN Reason Stop Dose Admin Sodium Chloride 1,000 mls @ 999 mls/hr 10/27/24 11:45 10/27/24 12:37 Ns IV 10/27/24 12:45 Infused .Q1H1M RONI Infusion Ondansetron HCl 4 mg 10/27/24 11:41 10/27/24 11:44 Ondansetron Hcl 4 Mg/2 Ml Vial IVPUSH 10/27/24 11:42 4 mg ONCE ONE Administration Medical Decision Making Medical Decision Making [facility] Narrative: [11:44] - 84-year-old male with a past medical history HLD, BPH, bronchiectasis, presenting to ED with family complaining confusion, headache, nausea and vomiting noted yesterday afternoon around 15:00 after patient came inside from shoveling/ice picking. On exam vital signs stable, NAD, nontoxic appearing, A&Ox0, pleasantly confused, no focal weakness. Lungs CTA, abdomen soft/nontender. Concern for CVA vs ICH vs metabolic/infectious etiologies. Low suspicion for acute meningitis/encephalitis. Concern for possible trauma/fall, unwitnessed. Unlikely severe sepsis NHISS = 3 Plan: EKG, labs, UA, CXR, CT head/CTA head and neck for stroke, cervical spine CT Please refer to course for remaining clinical decision making, interpretation of labs/imaging results, and discussions with consultants and/or family members. Differential Diagnosis Differential Diagnoses: The differential diagnosis associated with the presentation includes As above Admission/Observation Consideration of admission/observation: Escalation of care including admission/observation considered Lab Data MDM Lab Attestation statement: I reviewed the patient's lab results. 10/27/24 11:05 10/27/24 11:05 Labs: Lab Results 10/27/24 10/27/24 Range/Units 11:05 11:39 WBC 7.1 (4.8-10.8) X10*3/uL RBC 4.58 L (4.60-5.80) X10*6/uL Hgb 14.6 (14.0-18.0) g/dl Hct 41.7 L (42.0-52.0) % MCV 91.0 (80.0-98.0) fL MCH 31.9 (27.0-33.0) pg MCHC 35.0 (31.0-36.0) g/dl RDW 12.6 (11.0-16.0) % Plt Count 198 (160-400) X10*3/uL MPV 9.5 (9.4-12.4) fL Immature Gran % (Auto) 0.3 (0.0-0.4) % Neut % (Auto) 89.1 H (45-73) % Lymph % (Auto) 6.8 L (20-40) % Monona % (Auto) 3.5 (2-11) % Eos % (Auto) 0.0 (0-4) % Baso % (Auto) 0.3 (0-2) % Lymph # (Auto) 0.5 L (1.2-4.9) X10*3/uL Monona # (Auto) 0.3 (0.1-1.2) X10*3/uL Eos # (Auto) 0.0 (0.0-0.4) X10*3/uL Baso # (Auto) 0.0 (0.0-0.2) X10*3/uL Abs Immat Gran (auto) 0.02 (0.00-0.03) X10*3/uL Absolute Neuts (auto) 6.3 (2.0-8.3) x10*3/uL Absolute Nucleated RBC 0.000 (0.0-0.012) X10*3/uL Nucleated RBC % (auto) 0.0 (0.0-0.2) /100WBC PT 12.5 H (10.9-12.4) SEC INR 1.1 (0.9-1.1) APTT 34.0 (26.0-36.8) SEC Hold Blue Top SEE NOTE Sodium 131 L (135-145) mmol/L Potassium 4.2 (3.3-5.1) mmol/L Chloride 99 (96-108) mmol/L Carbon Dioxide 24 (22-29) mmol/L Anion Gap 12 (12-20) BUN 12 (9-16) mg/dL Creatinine 0.75 (0.5-1.4) mg/dL Estim Creat Clear Calc 75.7 Estimated GFR > 60 Random Glucose 129 H (60-115) mg/dL Calcium 9.5 (8.4-10.2) mg/dL Magnesium 1.5 L (1.6-2.6) mg/dL Total Bilirubin 0.8 (0.0-1.0) mg/dL AST 29 (5-37) U/L ALT 14 (0-40) U/L Alkaline Phosphatase 79 (39-117) U/L Ammonia 26 (13-55) umol/L Troponin I High Sens 3.1 (<3.5-35.0) ng/L Total Protein 8.0 (6.5-8.0) g/dL Albumin 4.1 (3.5-5.0) g/dL Influenza Type A (PCR) NEGATIVE (Negative) Influenza Type B (PCR) NEGATIVE (Negative) RSV RNA Qual (PCR) NEGATIVE (Negative) SARS-CoV-2 RNA (RT-PCR) NEGATIVE (Negative) Independent Interpretation I performed an independent interpretation of an: EKG, Plain X-Ray and CT Scan Radiology Impression Discussion of test interpretation with radiology: I have reviewed the radiologist's reading. Independent Historian Clinical information obtained from an independent historian. History obtained from or confirmed by: Spouse, EMS and Other (daughter) External Record Review External record reviewed: Inpatient record, Office record, Outpatient record, Prior outpatient labs, Prior outpatient radiology, Primary care record and Outside ED record Tests considered The following testing was considered but not selected: As above Prescription Management I considered prescription management with: Other Chronic Conditions Patient?s care impacted by: Other Social Determinants Patient?s care significantly limited by Social Determinants of Health including: Other Social Determinant of Health Critical Care Time Critical Care Time Critical Care Time: Yes Total Critical Care Time: 45 Attestation: I have personally provided critical care time exclusive of time spent on separately billable procedures. Time includes review of lab data, radiology results, discussion with consultants, and monitoring for potential decompensation. Intervention performed as documented. Discharge Plan Discharge Clinical Impression: Intraparenchymal hematoma of brain, Subarachnoid hemorrhage Patient Disposition: [facility] Transfer Details: [facility] Neuro ICU Dr. Cota Prescriptions: No Action albuterol sulfate 2.5 mg /3 mL (0.083 %) solution for nebulization 2.5 mg inhalation Q4-6H PRN (Reason: shortness of breath or wheezing) Qty: 180 0RF azithromycin 500 mg tablet 500 mg PO 3XW 90 Days Qty: 39 2RF Rx Instructions: Thursday atorvastatin 10 mg tablet 10 mg PO DAILY coenzyme Q10 300 mg capsule 300 mg PO .QOD sodium chloride 3 % solution for nebulization 4 ml inhalation BID 30 Days Qty: 240 11RF ibuprofen 600 mg tablet 600 mg PO Q8H PRN (Reason: pain) Qty: 20 0RF (DME) nebulizers Misc See Rx Instructions .ROUTE Rx Instructions: As directed Referrals: Robbie Kothari MD [Primary Care Provider] - Print Language: Kyrgyz
[2024-10-27 11:35] LABS: Alanine Aminotransferase 14 U/L (0-40); Albumin Level 4.1 g/dL (3.5-5.0); Alkaline Phosphatase 79 U/L (39-117); Anion Gap 12 (12-20); Aspartate Amino Transferase 29 U/L (5-37); Bilirubin Total 0.8 mg/dL (0.0-1.0); Blood Urea Nitrogen 12 mg/dL (9-16); Calcium 9.5 mg/dL (8.4-10.2); Carbon Dioxide 24 mmol/L (22-29); Chloride 99 mmol/L (96-108); Creatinine Clr Calc Pharmacy 75.7; Estimated Glomerular Filt Rate > 60; Glucose Random 129 mg/dL (60-115); Potassium 4.2 mmol/L (3.3-5.1); Sodium 131 mmol/L (135-145)
[2024-10-27] MEDS: ondansetron HCL 4 MG/2 ML VIAL IVPUSH (11:44)
--- OUTSIDE RECORDS SUMMARY | 2024-10-27 11:53 | XMS_ITS ---
Author Organization [facility] Address [address] [place] [address] Care Team Providers Care Toll Test Desk Worker Name Role Phone Robbie Kothari MD Primary Care Provider UnavailAna Damon Unavailable [phone] Allergies Allergen (clinical drug ingredient) Drug/Non Drug Allergy documented on EMR Reaction Allergy Type Onset Date Status Latex Latex Unknown Allergy Active REASON FOR VISIT Painful nail(s) aggrevated by shoes causing difficulty standing/walking Medications Medication SIG (Take, Route, Frequency, Duration) Notes Start Date End Date Status Atorvastatin Calcium 10 MG TAKE 1 TABLET BY MOUTH EVERY DAY Oral for 90 Days Active Azithromycin 500 MG TAKE 1 TABLET BY RAMIN TH 3 TIMES A WEEK ON THURSDAY,THURSDAY AND FRIDAYS Oral for 90 Days Active Lipitor 10 MG 1 tablet Orally Once a day for 30 day(s) 03/29/2024 Active Social History Tobacco Use: Social History Observation Description Date Details (start date - stop date) Former Smoker NA - NA Tobacco Use/Smoking Question Answer Notes Are you a: former smoker Additional Findings: Tobacco Non-User Current no n-smoker Alcohol Screen Question Answer Notes Did you have a drink containing alcohol in the p ast year? No Points 0 Interpretation Negative Tobacco use other than smoking: Question Answer Notes Are you an other tobacco user? No Vital Signs Height 6 ft 4 in in 06/28/2024 Weight 180 lbs 06/28/2024 BMI 21.91 kg/m2 06/28/2024 Encounters Encounter Location Date Provider Diagnosis [facility] [address] [place] [address] 06/28/2024 Ana Hernandez Tinea unguium B35.1 ; Pain in right toe(s) M79.674 and Pain in left toe(s) M79.675 Assessments Encounter Date Diagnosis (ICD Code) Assessment Notes Treatment Notes Treatment Clinical Notes Section Notes 06/28/2024 Tinea unguium (ICD-10 - B35.1) 06/28/2024 Pain in right toe(s) (ICD-10 - M79.674) 06/28/2024 Pain in left toe(s) (ICD-10 - M79.675) Plan Of Treatment Next Appt Details Follow Up: 3 Months, Reason: Provider Name:Ana garduno, 12/27/2024 09:00:00 AM, [address] [place] [address], [id number], Procedure Notes * Category Sub-Category Detail Notes Debride Nail 6-10 Nail debridement Nail debridem ent performed extensively to reduce/remove overall nail length, girth, thickness, subungual debris, and necrotic tissue, by manual and electrical means through the use of a nail nipper and/or dremel, to more viable healthy nail plate or bed tissue 1-5. Silver nitrate used for any petechial bleeding as necessary. Patient chooses, no pharmaceutical tx (62035) Progress Notes * Freeman ROCHADOB: 0 (84 yo M)Acc No.[id number]:06/28/2024 Progress Note Patient:?Freeman Rocha Provider:?Ana Hernandez DPM :1940???Age:84 Y???Sex:Male Lokesh e:06/28/2024 [id number] Pcp:Robbie Kothari MD Subjective: * Chief Complaints: * ???Painful nail(s) aggrevate d by shoes causing difficulty standing/walking * HPI: ???Painful Nails:?Pt States Last PCP Visit:?Date:?04/14/2024 * ROS:?General/Constitutional:?Nausea?denies, denies.?Vomiting?denies, denies.?Hunger Thirst?denies, denies.?Loss appetite?denies, denies.?Chills?denies, denies.?Fatigue?denies, denies.?Fever?denies, denies.?Night Sweats denies, denies.?Unexplained weight loss?denies, denies.?Unexplained weight gain?denies, denies.?HEENTM:?Dentures?denies, denies.?Dizziness?denies, denies.?Glasses/contacts?admits, admits.?Retinopathy?denies, denies.?Blurred/double vision?denies, denies.?TMJ?denies, denies.?Discharge/drainage?denies, denies.?Implants?denies, denies.?Sore throat?denies, denies.?Dental implants?denies, denies.?Hard of hearing ?denies, denies.?Difficulty chewing/swallowing/speaking?denies, denies.?Nose bleeds?denies, denies.?Sore mouth?denies, denies.?Respiratory:?On Oxygen?denies, denies.?Pneumonia/pleurisy?denies, denies.?Bronchitis?denies, denies.?Emphysema?denies, denies.?Coughing?denies, denies.?Cough blood?denies, denies.?Shortness of breath?denies, denies.?Wheezing?denies, denies.?Cardiovascular:?Pacemaker?denies, denies.?MVP?denies, denies.?WPW?denies, denies.?CHF?denies, denies.?Heart attack?denies, denies.?Septal defect?denies, denies.?Rapid beat?denies, denies.?Chest pain ?denies, denies.?Atrial Fib.?denies, denies.?Murmur/Palpitations?denies, denies.?Gastrointestinal:?Hemorrhoids?denies, denies.?Stomach/Abdominal pain?denies, denies.?Dark blood stool?denies, denies.?Irritable bowel ?denies, denies.?Constipation?denies, denies.?Diarrhea?denies, denies.?Hematology:?Swelling?denies, admits.?Clots?denies, denies.?Varicose Veins?denies, denies.?Bruising?denies, denies.?Bleeding problem?denies, denies.?Genitourinary:?Blood urine?denies, denies.?Frequent/Painfu/urination/bladder control?denies, denies.?Kidney stones?denies, denies.?Infection (UTI)?denies, denies.?Nephropathy?denies, denies.?sex trans dis (STD)?denies, denies.?Prostate?denies, denies.?Musculoskeletal:?Hammertoes?denies, denies.?Bunions?denies, denies.?Back Pain?denies, denies.?Muscle Cramps/ Resting?denies, denies.?Muscle cramps / walking?denies, denies.?Generalized aches and pains?admits, admits.?Weakness?denies, denies.?Integ.:?Dill?denies, denies.?Scars?denies, denies.?Corns/calluses?denies, denies.?Ingrown nails?denies, denies.?Painful nails?denies, denies.?Open Sores?denies, denies.?Rashes?denies, denies.?Neurologic:?Difficulty sleeping?denies, denies.?Brain disorder?denies, denies.?Numbness?denies, denies.?Balance trouble?denies, denies.?Confusion?denies, denies.?Fainting/blackouts?denies, denies.?Tingling?denies, denies.?Tremors?denies, denies.? * Medical History:? * Surgical History:?hernia col onoscopy * Hospitalization/Major Diagno stic Procedure:?Denies Past Hospitalization * Family History:?Mother: dece ased.?Father: .? * Social History:?Tobacco Use:?Tobacco Use/Smoking?Are you a:?former smoker ?Additional Findings: Tobacco Non-User?Current non-smoker ?Tobacco use other than smoking?Are you an other tobacco user??No ???Drugs/Alcohol:?Drugs?Have you used drugs other than those for medical reasons in the past 12 months??No ?Alcohol Screen?Did you have a drink containing alcohol in the past year??No ?Points?0 ?Interpretation?Negative ???Miscellaneous:?Caffeine: yes, 3-5 cups per day. ?no Children. ?Exercise: yes, walking. ?Marital status: . ?Occupation: Retired- [employer] * Medications:?TakingAtorvasta tin Calcium 10 MG Tablet TAKE 1 TABLET BY MOUTH EVERY DAY Oral Azithromycin 500 MG Tablet TAKE 1 TABLET BY MOUTH 3 TIMES A WEEK ON THURSDAY,THURSDAY AND FRIDAYS Oral Lipitor 10 MG Tablet 1 tablet Orally Once a dayMedication List reviewed and reconciled with the patientTaking Atorvastatin Calcium 10 MG Tablet TAKE 1 TABLET BY MOUTH EVERY DAY Oral Taking Azithromycin 500 MG Tablet TAKE 1 TABLET BY MOUTH 3 TIMES A WEEK ON THURSDAY,THURSDAY AND FRIDAYS Oral Taking Lipitor 10 MG Tablet 1 tablet Orally Once a dayMedication List reviewed and reconciled with the patient * Allergies:?Latexyes[Allergie s Verified] Objective: * Vitals:?Ht: 6 ft 4 in, Wt: 1 80, BMI: 21.91, Shoe size: 13, Ht-cm: 193.04 cm, Wt- k.65 kg. * Examination: ???Nails: ?NAILS are:?Elongated, overgrown, dystrophic, lytic, greater than 3mm thick, discolored and friable with crumbly malodorous subungual debris, with pain on palpation 1-5 B/L.? Assessment: * Assessment: 1.?Tinea unguium - B35.1 (Pr imary)?2.?Pain in right toe(s) - M79.674?3.?Pain in left toe(s) - M79.675? Plan: * Treatment: * Procedures:?Debride Nail 6-10:?Nail debridement?Nail debridement performed extensively to reduce/remove overall nail length, girth, thickness, subungual debris, and necrotic tissue, by manual and electrical means through the use of a nail nipper and/or dremel, to more viable healthy nail plate or bed tissue 1-5. Silver nitrate used for any petechial bleeding as necessary. Patient chooses, no pharmaceutical tx (02337).? * Procedure Codes:?54159 DEBRI DE NAIL, 6 OR MORE, Modifiers: XS * Follow Up:?3 Months * Images: * Sign off status: Completed true * Provider:?Ana Hernandez, DPAntonio Date:? Generated for Chip andres/Awais/eTransmitting on:?10/27/2024 11:53 AM EST History and Physical Notes * HPI (History of Present Illness) Category Sub-Category Detail Notes Category Not es Painful Nails Pt States Last PCP Visit: Date:: 04/14/2024 Examination Category Sub-Category Detail Notes Category Not es Nails NAILS are: Elongated, overg rown, dystrophic, lytic, greater than 3mm thick, discolored and friable with crumbly malodorous subungual debris, with pain on palpation 1-5 B/L
--- OUTSIDE RECORDS SUMMARY | 2024-10-27 11:53 | XMS_ITS | Patient Health Record ---
Author Organization [facility] Address [address] [place] [address] Care Team Providers Care Customer Development Representative Name Role Phone Robbie Kothari MD Primary Care Provider UnavailAna Damon Unavailable [phone] Allergies Allergen (clinical drug ingredient) Drug/Non Drug Allergy documented on EMR Reaction Allergy Type Onset Date Status Latex Latex Unknown Allergy Active Reason For Referral No Information Medications Medication SIG (Take, Route, Frequency, Duration) Notes Start Date End Date Status Lipitor 10 MG 1 tablet Orally Once a day for 30 day(s) 03/29/2024 Active Azithromycin 500 MG TAKE 1 TABLET BY RAMIN TH 3 TIMES A WEEK ON THURSDAY,THURSDAY AND FRIDAYS Oral for 90 Days Active Atorvastatin Calcium 10 MG TAKE 1 TABLET BY MOUTH EVERY DAY Oral for 90 Days Active Social History Tobacco Use: Social History Observation Description Date Details (start date - stop date) Never Smoker NA - NA Alcohol Screen Question Answer Notes Did you have a drink containing alcohol in the p ast year? No Points 0 Interpretation Negative Tobacco use other than smoking: Question Answer Notes Are you an other tobacco user? 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 ; Pain in right toe(s) M79.674 ; Pain in left toe(s) M79.675 and Xerosis of skin L85.[address] [address] 03/29/2024 Ana Perica Tinea unguium B35.1 ; Pain in right toe(s) M79.674 and Pain in left toe(s) M79.[address] [address] 06/28/2024 Ana Perica Tinea unguium B35.1 ; Pain in right toe(s) M79.674 and Pain in left toe(s) M79.[address] [address] 09/27/2024 Ana Perica Tinea unguium B35.1 ; Pain in right toe(s) M79.674 and Pain in left toe(s) M79.[address] [address] 10/28/2023 Ana Perica Assessments Encounter Date Diagnosis (ICD Code) Assessment Notes Treatment Notes Treatment Clinical Notes Section Notes 12/30/2023 Pain in right toe(s) (ICD-10 - M79.674) 12/30/2023 Fungal infection of nail (ICD-10 - B35.1) 03/29/2024 Tinea unguium (ICD-10 - B35.1) 03/29/2024 Pain in right toe(s) (ICD-10 - M79.674) 06/28/2024 Tinea unguium (ICD-10 - B35.1) 09/27/2024 Tinea unguium (ICD-10 - B35.1) 09/27/2024 Pain in right toe(s) (ICD-10 - M79.674) 12/30/2023 Pain in left toe(s) (ICD-10 - M79.675) 06/28/2024 Pain in right toe(s) (ICD-10 - M79.674) 03/29/2024 Pain in left toe(s) (ICD-10 - M79.675) 12/30/2023 Xerosis of skin (ICD-10 - L85.3) 06/28/2024 Pain in left toe(s) (ICD-10 - M79.675) 09/27/2024 Pain in left toe(s) (ICD-10 - M79.675) Plan Of Treatment Next Appt Details Provider Name:Ana garduno, 12/27/2024 09:00:00 AM, [address] [place], [address], Insurance Providers Payer Name Payer Address Payer Phone Subscriber Number Group Number Insured Name Patient Relationship to Insured Coverage Start Date Coverage End Date [facility] [id number] [address] [place] [address] [id number] [address] King Self - patient is the insured Medical (General) History Medical History History ICD Code Measles Mumps Chicken pox Surgical History Surgery Date(Month/Year) hernia colonoscopy
--- OUTSIDE RECORDS SUMMARY | 2024-10-27 11:53 | XMS_ITS ---
Author Organization [facility] Address [address] [place] [address] Care Team Providers Care Science Analyst Name Role Phone Robbie Kothari MD Primary Care Provider UnavailAna Damon Unavailable [phone] Allergies Allergen (clinical drug ingredient) Drug/Non Drug [...] stop date) Never Smoker NA - NA Tobacco use other than smoking: Question Answer Notes Are you an other tobacco user? No Tobacco Control (Standard) Question Answer Notes Tobacco use: Nonsmoker Vital Signs Height 6 ft 4 in in 09/27/2024 Weight 170 lbs 09/27/2024 BMI 20.69 kg/m2 09/27/2024 Blood pressure systolic 124 mm Hg 09/27/19 25 Blood pressure diastolic 81 mm Hg 025 Encounters Encounter Location Date Provider Diagnosis [facility] [address] [place] [address] 09/27/2024 Ana Hernandez Tinea unguium B35.1 ; Pain in right toe(s) M79.674 and Pain in left toe(s) M79.675 Assessments Encounter Date Diagnosis (ICD Code) Assessment Notes Treatment Notes Treatment Clinical Notes Section Notes 09/27/2024 Tinea unguium (ICD-10 - B35.1) 09/27/2024 Pain in right toe(s) (ICD-10 - M79.674) 09/27/2024 Pain in left toe(s) (ICD-10 - M79.675) Plan Of Treatment Next Appt Details Follow Up: 3 Months, Reason: Provider Name:Ana garduno, 12/27/2024 09:00:00 AM, [address] [place] [address], [id number], Procedure Notes * Category Sub-Category Detail Notes Debride Nail 6-10 Nail debridement Due to the cl inical pathology outlined in the exam findings, performance of this nail treatment is medically necessary as its management by an unskilled/untrained nonprofessional would put this patients foot and overall health at risk. Therefore, debridement to affected nail(s), as described in exam ( TA, T1, T2, T3, T4, T5, T6, T7, T8, T9, ), was performed exclusively by the physician of record to reduce/remove overall nail length, girth, thickness, subungual debris, and necrotic tissue, by manual and/or electrical means through the use of a nail nipper and/or dremel-type color grinder, to a more viable healthy nail plate or bed tissue 6-10 nails in total. Silver nitrate was used for any petechial bleeding as necessary. Definitive antifungal treatment options, both pharmaceutical and surgical, have been reviewed and discussed with the patient. The patient solely prefers the use of intermittent/as needed professional debridement services for their nail condition and understands the need for additional periodic treatments to maintain effectiveness in symptomatic relief - 21032 Progress Notes * Freeman ROCHADOB: 0 (84 yo M)Acc No.[id number]:09/27/2024 Progress Note Patient:?Freeman ROCHA Provider:?Ana Hernandez DPM :1940???Age:84 Y???Sex:Male Lokesh e:09/27/2024 Address:[address] [place] Pcp:Robbie Kothari MD Subjective: * Chief Complaints: * ???Painful nail(s) aggrevate d by shoes causing difficulty standing/walking * HPI: ???Painful Nails:?Pt States Last PCP Visit:?Date:?06/14/2024 * ROS:?General/Constitutional:?Nausea?denies.?Vomiting?denies.?Hunger Thirst?denies.?Loss appetite?denies.?Chills?denies.?Fatigue?denies.?Fever?denies.?Night Sweats?denies.?Unexplained weight loss?denies.?Unexplained weight gain?denies.?HEENTM:?Dentures?denies.?Dizziness?denies.?Glasses/contacts?admits.?Retinopathy?de nies.?Blurred/double vision?denies.?TMJ?denies.?Discharge/drainage?denies.?Implants?denies.?Sore throat?denies.?Dental implants?denies.?Hard of hearing ?denies.?Difficulty chewing/swallowing/speaking?denies.?Nose bleeds?denies.?Sore mouth?denies.?Respiratory:?On Oxygen?denies.?Pneumonia/pleurisy?denies.?Bronchitis?denies.?Emphysema?denies.?C oughing?denies.?Cough blood?denies.?Shortness of breath?denies.?Wheezing?denies.?Cardiovascular:?Pacemaker?denies.?MVP?denies.?WPW?denies.?CHF?denies.?Heart attack?denies.?Septal defect?denies.?Rapid beat?denies.?Chest pain ?denies.?Atrial Fib.?denies.?Murmur/Palpitations?denies.?Gastrointestinal:?Hemorrhoids?denies.?Stomach/Abdominal pain?denies.?Dark blood stool?denies.?Irritable bowel ?denies.?Constipation?denies.?Diarrhea?denies.?Hematology:?Swelling?admits.?Clots?denies.?Varicose Veins?denies.?Bruising?denies.?Bleeding problem?denies.?Genitourinary:?Blood urine?denies.?Frequent/Painfu/urination/bladder control?denies.?Kidney stones?denies.?Infection (UTI)?denies.?Nephropathy?denies.?sex trans dis (STD)?denies.?Prostate?denies.?Musculoskeletal:?Hammertoes?denies.?Bunions?denies.?Back Pain?denies.?Muscle Cramps/ Resting?denies.?Muscle cramps / walking?denies.?Generalized aches and pains?admits.?Weakness?denies.?Integ.:?Dill?denies.?Scars?denies.?Corns/calluses?denies.?Ingrown nails?denies.?Painful nails?denies.?Open Sores?denies.?Rashes?denies.?Neurologic:?Difficulty sleeping?denies.?Brain disorder?denies.?Numbness?denies.?Balance trouble?denies.?Confusion?denies.?Fainting/blackouts?denies.?Tingling?denies.?Tr emors?denies.? * Medical History:? * Surgical History:?hernia col onoscopy * Hospitalization/Major Diagno stic Procedure:?Denies Past Hospitalization * Family History:?Mother: dece ased.?Father: .? * Social History:?Tobacco Use:?Tobacco use other than smoking?Are you an other tobacco user??No ?Tobacco Control (Standard)?Tobacco use:?Nonsmoker * Medications:?TakingAtorvasta tin Calcium 10 MG Tablet TAKE 1 TABLET BY MOUTH EVERY DAY Oral Azithromycin 500 MG Tablet TAKE 1 TABLET BY MOUTH 3 TIMES A WEEK ON THURSDAY,THURSDAY AND FRIDAYS Oral Lipitor 10 MG Tablet 1 tablet Orally Once a day Medication List reviewed and reconciled with the patientTaking Atorvastatin Calcium 10 MG Tablet TAKE 1 TABLET BY MOUTH EVERY DAY Oral Taking Azithromycin 500 MG Tablet TAKE 1 TABLET BY MOUTH 3 TIMES A WEEK ON THURSDAY,THURSDAY AND FRIDAYS Oral Taking Lipitor 10 MG Tablet 1 tablet Orally Once a day Medication List reviewed and reconciled with the patient * Allergies:?Latexyes[Allergie s Verified] Objective: * Vitals:?Ht: 6 ft 4 in, Wt: 1 70, BMI: 20.69, Shoe size: 13, BP: 124/81 mm Hg, Ht- cm: 193.04 cm, Wt-k.11 kg. * Examination: ???Nails: ?NAILS are:?Elongated, overgrown, dystrophic, lytic, greater than 3mm thick, discolored and friable with crumbly malodorous subungual debris, with pain on palpation, TA, T1, T2, T3, T4, T5, T6, T7, T8, T9, proximal clearing of nail approximately 50 percent.? Assessment: * Assessment: 1.?Tinea unguium - B35.1 (Pr imary)???2.?Pain in right toe(s) - M79.674???3.?Pain in left toe(s) - M79.675??? Plan: * Treatment: * Procedures:?Debride Nail 6-10:?Nail debridement?Due to the clinical pathology outlined in the exam findings, performance of this nail treatment is medically necessary as its management by an unskilled/untrained nonprofessional would put this patients foot and overall health at risk. Therefore, debridement to affected nail(s), as described in exam ( TA, T1, T2, T3, T4, T5, T6, T7, T8, T9, ), was performed exclusively by the physician of record to reduce/remove overall nail length, girth, thickness, subungual debris, and necrotic tissue, by manual and/or electrical means through the use of a nail nipper and/or dremel-type color grinder, to a more viable healthy nail plate or bed tissue 6- 10 nails in total. Silver nitrate was used for any petechial bleeding as necessary. Definitive antifungal treatment options, both pharmaceutical and surgical, have been reviewed and discussed with the patient. The patient solely prefers the use of intermittent/as needed professional debridement services for their nail condition and understands the need for additional periodic treatments to maintain effectiveness in symptomatic relief - 37976.? * Procedure Codes:?19357 DEBRI DE NAIL, 6 OR MORE, Modifiers: XS * Follow Up:?3 Months * Images: * Sign off status: Completed true * Provider:Naresh Hernandez, KATERINA Date:? Generated for Chip andres/Awais/Tiffanie on:?10/27/2024 11:52 AM EST History and Physical Notes * HPI (History of Present Illness) Category Sub-Category Detail Notes Category Not es Painful Nails Pt States Last PCP Visit: Date:: 06/14/2024 Examination Category Sub-Category Detail Notes Category Not es Nails NAILS are: Elongated, overg rown, dystrophic, lytic, greater than 3mm thick, discolored and friable with crumbly malodorous subungual debris, with pain on palpation, TA, T1, T2, T3, T4, T5, T6, T7, T8, T9, proximal clearing of nail approximately 50 percent
--- OUTSIDE RECORDS SUMMARY | 2024-10-27 11:53 | XMS_ITS ---
Author Organization [facility] Address [address] [place] [address] Care Team Providers Care Storeroom Attendant Name Role Phone Robbie Kothari MD Primary Care Provider UnavailAna Damon Unavailable [phone] Allergies Allergen (clinical drug ingredient) Drug/Non Drug Allergy documented on EMR Reaction Allergy Type Onset Date Status Latex Latex Unknown Allergy Active REASON FOR VISIT Pcp-01/05, Painful nail(s) aggrevated by shoes causing difficulty standing/walking Medications Medication SIG (Take, Route, Frequency, Duration) Notes Start Date End Date Status Lipitor 10 MG 1 tablet Orally Once a day for 30 day(s) 03/29/2024 Active Atorvastatin Calcium 10 MG TAKE 1 TABLET BY MOUTH EVERY DAY Oral for 90 Days Active Azithromycin 500 MG TAKE 1 TABLET BY RAMIN TH 3 TIMES A WEEK ON THURSDAY,THURSDAY AND FRIDAYS Oral for 90 Days Active Social History [...] Signs Height 6 ft 4 in in 03/29/2024 Weight 177 lbs 03/29/2024 BMI 21.54 kg/m2 03/29/2024 Encounters Encounter Location Date Provider Diagnosis [facility] [address] [place] [address] 03/29/2024 Ana Hernandez Tinea unguium B35.1 ; Pain in right toe(s) M79.674 and Pain in left toe(s) M79.675 Assessments Encounter Date Diagnosis (ICD Code) Assessment Notes Treatment Notes Treatment Clinical Notes Section Notes 03/29/2024 Tinea unguium (ICD-10 - B35.1) 03/29/2024 Pain in right toe(s) (ICD-10 - M79.674) 03/29/2024 Pain in left toe(s) (ICD-10 - M79.675) Plan Of Treatment Next Appt Details Follow Up: 3 Months, Reason: Provider Name:Ana garduno, 12/27/2024 09:00:00 AM, [address] [place] [address], [phone], Procedure Notes * Category Sub-Category Detail Notes [...] as necessary. Patient chooses, no pharmaceutical tx (13309) Progress Notes * Freeman ROCHADOB: 0 (84 yo M)Acc No.[id number]:03/29/2024 Progress Note Patient:?Freeman Rocha Provider:?Ana Hernandez DPM :1940???Age:84 Y???Sex:Male Lokesh e:03/29/2024 [facility] Pcp:Robbie Kothari MD Subjective: * Chief Complaints: * ???Pcp-01/05Painful nail(s) aggrevated by shoes causing difficulty standing/walking * HPI: ???Painful Nails:?Pt States Last PCP Visit:?Date:?12/29/2023 * ROS:?General/Constitutional:?Nausea?denies.?Vomiting?denies.?Hunger Thirst?denies.?Loss appetite?denies.?Chills?denies.?Fatigue?denies.?Fever?denies.?Night Sweats?denies.?Unexplained weight loss?denies.?Unexplained [...] trouble?denies.?Confusion?denies.?Fainting/blackouts?denies.?Tingling?denies.?Tr emors?denies.? * Medical History:? * Surgical History:?Denies Pas t Surgical History * Hospitalization/Major Diagno stic Procedure:?Denies Past Hospitalization [...] the past year??No ?Points?0 ?Interpretation?Negative ???Miscellaneous:?Caffeine: yes, more than 4 cups per day. ?no Children. ?no Exercise. ?Marital status: . ?Occupation: Retired. * Medications:?TakingAtorvasta tin Calcium 10 MG Tablet [...] Vitals:?Ht: 6 ft 4 in, Wt: 1 77, BMI: 21.54, Shoe size: 13, Ht-cm: 193.04 cm, Wt- k.29 kg. * Examination: ???Nails: ?NAILS are:?Elongated, overgrown, dystrophic, lytic, greater than 3mm thick, discolored and friable with crumbly malodorous subungual debris, with pain on palpation 1-5 B/L.? Assessment: * Assessment: 1.?Tinea unguium - B35.1 (Pr rayna)?2.?Pain in right toe(s) - M79.674?3.?Pain in left [...] as necessary. Patient chooses, no pharmaceutical tx (41003).? * Procedure Codes:?52982 DEBRI DE NAIL, 6 OR MORE, Modifiers: XS * Follow Up:?3 Months * Images: * Sign off status: Completed true * Provider:?Ana Hernandez, DPM Date:? Generated for Chip andres/Awais/Jamessmitting on:?10/27/2024 11:52 AM EST History and Physical Notes * HPI (History of Present Illness) Category Sub-Category Detail Notes Category Not es Painful Nails Pt States Last PCP Visit: Date:: 12/29/2023 Examination Category Sub-Category Detail Notes Category Not es Nails NAILS are: Elongated, overg rown, dystrophic, lytic, greater than 3mm thick, discolored and friable with crumbly malodorous subungual debris, with pain on palpation 1-5 B/L
[2024-10-27 11:59] LABS: Ammonia 26 umol/L (13-55)
--- NOTE | 2024-10-27 12:00 | PC.NURSE ---
pt is alert but completely confused-he knows his name but unable to state his birthday, pt reported Carlock when asked his birthday, reported the year to be 2044, which according to his family pt is alert and oriented at baseline, pt was outside yesterday picking/braking up the ice and around 1500, no sure if there was a fall or any trauma, the family noticed that the pt appeared to be very altered, speech clear, no noticeable facial droop, hand grasp strong and equal, no noticeable drift, pt is reporting a headache 5/10, no urinary symptoms according to the pt, was vomiting last night and still having nausea- pt started to dry heave right prior to going to ct-given zofran, pt is not on any blood thinners or asa
[2024-10-27 12:01] VITALS: BP 148/79; PULSE 89; RESP 18; TEMP 36.7; O2SAT 95
[2024-10-27 12:04] LABS: Magnesium 1.5 mg/dL (1.6-2.6)
[2024-10-27] MEDS: 0.9 % Sodium Chloride 1,000 ML 999 ML IV (12:06)
[2024-10-27 12:15] LABS: Influenza A PCR NEGATIVE (Negative); Influenza B PCR NEGATIVE (Negative); Resp Syncy Virus RNA Qual PCR NEGATIVE (Negative); SARS COV2 PCR INHOUSE NEGATIVE (Negative)
[2024-10-27 12:36] VITALS: BP 135/81; PULSE 80; RESP 18; O2SAT 95
[2024-10-27 12:42] LABS: Troponin-I High Sensitivity 3.1 ng/L (<3.5-35.0)
[2024-10-27 13:09] LABS: INTERNATIONAL NORM RATIO 1.1 (0.9-1.1); Prothrombin Time 12.5 SEC (10.9-12.4)
[2024-10-27 13:28] VITALS: BP 143/75; PULSE 84; RESP 18; O2SAT 96
[2024-10-27 14:32] VITALS: BP 131/71; PULSE 86; RESP 16; O2SAT 96
--- NOTE | 2024-10-27 14:47 | PC.NURSE ---
report given to Jazz mathews at [facility]
--- NOTE | 2024-10-27 15:08 | MHC.STROKE ---
Met with patient and family prior to his transfer to [facility]. Pt sleeping, arousable to verbal stimuli. Nods head yes/no Stroke Education provided to patient's family. We discussed transfer and expectations. We reviewed the reasons for transfer. All questions answered. At the time of our meeting, patient was awaiting room/bed assignment at [facility]. Will continue to assist as needed.
== END 2024-10-27 15:04 | disposition short-term general hospital (02) ==
PROVIDERS: Physician Assistant; Emergency Provider Emergency Medicine Emergency Medical Services; PCP Internal Medicine Medical Oncology
DX: I60.9 Nontraumatic subarachnoid hemorrhage, unspecified (principal); R41.0 Disorientation, unspecified; R53.1 Weakness; M54.2 Cervicalgia; I44.0 Atrioventricular block, first degree; R11.2 Nausea with vomiting, unspecified; R51.9 Headache, unspecified; R94.31 Abnormal electrocardiogram [ECG] [EKG]; Z03.818 Encounter for observation for suspected exposure to other biological agents ruled out; Z79.899 Other long term (current) drug therapy; Z87.891 Personal history of nicotine dependence
CPT/HCPCS: 0241U; 70450; 71045; 72125; 80053; 82140; 83735; 84484; 85025; 85610; 85730; 93005; 96361; 96374; 99285; J2405

== ENCOUNTER → 2024-10-27 11:27 | Outpatient (BNV) | payer MEDICARE, SELFPAY | PROVIDERS: Emergency Provider Emergency Medicine Emergency Medical Services; PCP Internal Medicine Medical Oncology; Visit Provider Internal Medicine Cardiovascular Disease | DX: I44.0 Atrioventricular block, first degree (principal) | CPT/HCPCS: 93010 ==

== ENCOUNTER → 2024-10-27 11:29 | Outpatient (BNV) | payer MEDICARE, SELFPAY | PROVIDERS: Emergency Provider Emergency Medicine Emergency Medical Services; PCP Internal Medicine Medical Oncology; Visit Provider Radiology Diagnostic Radiology | DX: M47.892 Other spondylosis, cervical region (principal); I61.8 Other nontraumatic intracerebral hemorrhage; I60.9 Nontraumatic subarachnoid hemorrhage, unspecified; G93.89 Other specified disorders of brain; J47.9 Bronchiectasis, uncomplicated | CPT/HCPCS: 70450; 71045; 72125 ==

== ENCOUNTER 2024-12-02 10:38 | Outpatient (REF) | payer MEDICARE, SELFPAY ==
--- NOTE | ~2024-12-02 | XR_ITS ---
EXAMINATION: XR CHEST 2 VIEWS HISTORY: J47.9 - Bronchiectasis, uncomplicated COMPARISON: Comparison is made with the prior examination dated 10/27/2024. FINDINGS: PA and lateral views of the chest are submitted. Again seen is extensive scarring throughout both lungs, right greater than left. There are new airspace opacities in the right middle lobe and left lower lobe suspicious for pneumonia. There is no pleural effusion, pneumothorax, or pulmonary vascular congestion. The heart is normal in size. There is degenerative disc disease of the spine. XR/XR chest 2V IMPRESSION: Extensive bilateral lung scarring. New airspace opacities in the right middle lobe and left lower lobe, suspicious for pneumonia. Follow-up is recommended to document resolution. Electronically signed by: Robbie Rosales MD 12/02/2024 11:50 AM EDT
== END 2024-12-02 10:39 | disposition home or self-care (01) ==
LOC: HO.XRAY 10:38
PROVIDERS: PCP Internal Medicine Medical Oncology; Visit Provider Internal Medicine Medical Oncology
DX: R91.8 Other nonspecific abnormal finding of lung field (principal); J18.9 Pneumonia, unspecified organism
CPT/HCPCS: 71046

== ENCOUNTER → 2024-12-02 10:42 | Outpatient (BNV) | payer MEDICARE, SELFPAY | PROVIDERS: PCP Internal Medicine Medical Oncology; Visit Provider Radiology Diagnostic Radiology | DX: R91.8 Other nonspecific abnormal finding of lung field (principal) | CPT/HCPCS: 71046 ==

== ENCOUNTER 2024-12-16 09:36 | Outpatient (AMB) | payer MEDICARE, SELFPAY ==
--- NOTE | 2024-12-16 09:40 | MHC.OFFVIS ---
Vital Signs 12/16/24 09:41 Height 6 ft 4 in Weight 153 lb 3.54 oz BMI 18.6 BP 126/64 Blood Pressure Location Rt brachial Position Sitting Pulse 92 Pulse Source Pulse Oximeter Pulse Oximetry (%) 97 Oxygen Delivery Method Room Air Intake Visit Reasons: MAC Allergies latex [LATEX] Allergy (Intermediate, Verified 12/16/24 09:45) RASH Band-Aid Allergy (Severe, Uncoded 12/16/24 09:45) rash neosporin Allergy (Severe, Uncoded 12/16/24 09:45) rash HPI Comments Details: The patient is an 84-year-old gentleman with a known history of childhood asthma in addition to pulmonary nodules. The patient followed for many years with CT scan following some abnormal findings including pulmonary nodules and interstitial changes. Ultimately no significant findings were noted. For the last year the patient has had episodes of coughing up blood. He has not coughed up blood now more than 6 months. He denies any weight loss or night sweats. He states that he walks about a mi a day and denies any shortness of breath. He has been evaluated for cardiac symptoms including palpitations. At this point the patient does not use any respiratory inhalers. He does not feel like he needs new either. We did look at his chest x-ray from September 2020 demonstrating some increased interstitial changes compared to his previous x-ray from 2019. We personally reviewed that x-ray was also personally reviewed the CT scan of the chest that he had back in 2017 demonstrating some interstitial changes primarily in the upper lung zones. The patient did have multiple pulmonary nodules. Therefore, based on his abnormal chest x-ray and ongoing intermittent coughing with sometimes hemoptysis the patient needs to have a CT scan of the chest. In addition to that will having undergo pulmonary function studies to assess her COPD. 01/08/2021 the patient is here for pulmonary follow-up visit. Overall he is feeling better. Denies any significant hemoptysis at this time. He did undergo his pulmonary function studies which were reassuring without any obstruction no restriction. He does have moderate diffusion impairment. In addition to that he did undergo a repeat CT scan of the chest which was compared to his CT scan from 2017. It demonstrated interval worsening of the bronchiectasis the pulmonary nodules and tree-in-bud. This appears to be more consistent with a smoldering infectious process versus inflammatory process. At this point the patient is agreeable to bronchoscopy to assess for any infectious etiologies and also to rule out malignant processes. 01/30/2021 the patient is here for pulmonary follow-up visit. He is status post bronchoscopy. He did have significant purulent secretions in the airways that were suction. Otherwise no other acute abnormalities noted. His cultures are all negative at this time. Still waiting for the results of the mycobacteria cultures assessing for the possibility of a mycobacterial lung disease. In the meantime he has been using his nebulizer. At this point he is to get an Acapella valve to further provide chest physical therapy with the goal of maintaining good pulmonary hygiene. 07/29/2021 the patient is here for a pulmonary follow-up visit. Overall the patient has been doing much better. He is responding well to the nebulized therapy followed by the Acapella valve. He has been able to clear significant amount of secretions. His lungs appear to be better overall with less congestion. He has been using the nebulizer once a day and I did agree with him decreasing his frequency to once a day at this time. He does have underlying pulmonary nodules. The last time he had a CT scan of the chest was back in November 2020. Will plan to follow-up with a CT scan in 6 months time which should be little bit longer than a year. I am hopeful the nodules are stable we can at that point follow them as needed. However, if the nodules are growing in size further diagnostic interventions will be warranted. 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 At this point the patient is doing well and does not require antimicrobial agents at this time. 10/03/2021 the patient is here for a pulmonary follow-up visit. He continues to have a productive cough on a regular basis. He does use the nebulized therapy and is able to expectorate well. 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 He also understands that treating it will require 17 months of antimicrobial therapy in order to follow the Infectious Disease recommendations. He also understands that there is a high relapse straight even after completing the 17 months. Therefore at this point will follow him closely since his symptoms do not appear to be worsening. We did review his CT scan of the chest demonstrating bronchiectatic changes in addition to pulmonary nodular densities. No evidence of any cavitations at this time. Patient last CT scan was back in 2020. the repeat CT scan scheduled for December 2021. if the nodules are changing increasing of progressing we need to consider treating the mycobacteria infection. In the meantime will try aggressive chest physical therapy by continuing his nebulized therapy and also adding hypertonic saline. The patient does have an Acapella valve any start using it after the nebulized therapy. In addition to that the patient did have a recent fall. He did go to the ER and the scott to the back of his call because of a laceration. He is also complaining of some left-sided flank discomfort from his fall. He does have some point tenderness over the ribs. Likely contusions. He had a CT scan of the brain demonstrating some chronic changes. He did not have any chest imaging studies. At this point will follow-up after his CT scan he is going to continue with aggressive chest physical therapy. 12/24/2021 the patient is here for pulmonary follow-up visit. He describes worsening cough productive in nature. He is also developing increasing shortness of breath. Moderate severity with activity. The patient did have a repeat CT scan of the chest that we personally reviewed demonstrating waxing waning pulmonary nodules in addition to having interval progression of the bronchiectasis and appears to have more treating budding and more progression of his airway disease. This is likely secondary to the smoldering infection with the non tuberculosis mycobacterial infection. He did try the percussion valve without any significant improvement. Therefore this time view of his worsening symptoms and also worsening CT scan will go ahead and start him on therapy. Will try him on the lowest dose possible in order for him to be able to tolerated and we can always consider increasing the medication. Once he is on therapy around 4-6 weeks after worse will get another sputum culture to make sure that he is tolerating the therapy. He also have to undergo blood work and also an EKG to make sure that he can tolerate therapy. Also mentioned on the report of the CT scan is that he does have 2 mild compression fractures. At this point the patient denies any back discomfort. However, in view of the findings the patient should follow up with his primary care doctor to be assessed for the possibility of osteopenia or osteoporosis. 02/25/2022 so the patient is here for a pulmonary follow-up visit. Overall he is doing well from a respiratory status. His cough is overall better. He still expectorating some but much less. He is tolerating the antimycobacterial therapy. Has been on the azithromycin 3 times a week in addition to a lower dose rifampin and ethambutol. Denies any eye Darron jerry. He did have an EKG back in December without any QT changes. The patient has not had any blood work since then. He will go for blood work to make sure that everything else is stable. In the meantime he is having some diarrhea issues. We did talk about the side effects of the medications and GI symptoms. If his GI symptoms becomes too significant we talked about dropping 1 of the agents to just at the dual therapy. The patient understands that the triple antibiotic regimen to avoid too much resistance buildup due to the mycobacterial resistance possibilities. In the meantime the patient did have a CT scan back in December demonstrating interval worsening of pulmonary nodules and bronchiectatic changes. Will plan to continue the therapy and follow-up with a CT scan in June 2022. The patient meantime will provide us with the sputum sample to make sure that the mycobacterium is eradicating. 06/30/2022 the patient is here for a pulmonary follow-up visit. Overall continues to feel well. His cough is overall better. He is exercising regularly. He is tolerating the triple antimicrobial therapy. The only adverse effect is discoloration of the urine which is common with the rifampin In addition to some diarrhea. We did talk about adding probiotics to his regimen. He will try some [id number] options. He did have a repeat CT scan of the chest demonstrating interval improvement of the cavitary lesions and also improvement of the parenchymal disease. No evidence of any new nodules and he has stable pulmonary nodules. Therefore it is encouraging that the therapy has been clinically affected also radiologically with evidence of improvement. He understands that treatment should at least last been 12-15 months of therapy. His sputum culture repeat has not demonstrated any mycobacterial disease. 12/26/2022 the patient is here for a pulmonary follow-up visit. He continues to do well. His cough is overall better. He continues on the triple antimicrobial therapy. He has completed now 1 year. Based on the fact that the patient is doing better will go ahead and stop the ethambutol and the rifampin and will continue with the azithromycin for now. His last EKG was reassuring. Will plan to continue on the azithromycin and will plan to repeat the CT scan in May 2023. If the patient develops any worsening symptoms prior to that he is to call the office for an earlier evaluation. 06/24/2023 the patient is here for a pulmonary follow-up visit. He continues on the azithromycin 3 times a week 500 mg. He is happy that he is stopped the ethambutol and rifampin. Respiratory tobin the patient is doing well denies any worsening cough or shortness of breath. Although he has had episodes of hemoptysis he states. Is minimal amount scant in amount. At this point is subsided. Still the patient is aware that if it happens again if it is a very more significance he would have to call again in order to address the hemoptysis. He did recently have a CT scan 06/17/2023 which I personally reviewed. It appears patient does have some significant bronchiectasis and nodular densities and tree-in-bud and all are very similar to his previous CT scan at least there is no worsening of disease. He also has a new pulmonary nodule in the right base. Seems to be also related to the underlying mycobacterial disease. At this point will continue with the azithromycin 3 times a week since the patient clinically doing well. Although, if his hemoptysis worsens his respiratory symptoms worsen then will need to readdress that. I will also provide him with a sputum cup in order for him to bring a sputum sample. The patient should get a repeat CT scan 6 months to follow-up with a new pulmonary nodule. 12/16/2023 the patient is here for a pulmonary follow-up visit. Overall he continues to do well. Continues on the azithromycin 500 mg 3 times a week. His cough is improved. Denies any significant congestion. Denies any hemoptysis. Overall the patient has been doing well. Back in July he did grew Klebsiella from his sputum culture. Otherwise has not grown any other organisms. He did have a CT scan of the chest which we personally reviewed and also compared to the CT scans from 10/03/2019 22 in 2022. it appears that he is waxing waning pulmonary nodules along with bronchiectatic changes treating budding and a right upper lobe thick-walled cavitary lesion. For the most part the nodular densities have changed some indeed have gotten little better but again some new ones are present. The patient also has significant bronchiectasis. He has not been using the Acapella valve for chest PT. We did talk about the importance of that. The patient understands that most likely the findings on the CT scan all has to do with mycobacterial disease. Also predisposes him to Other enteric bacteria. Still is hard to know for sure if any of those nodular densities have any malignant potentials. At this point clinically the patient is doing well and therefore this CT scan is also reassuring. Will go ahead and follow-up in 6 months. The patient needs to have an EKG to make sure he is tolerating the macrolide therapy. In addition to that will request another sputum for culture and also AFB. If the patient develops any worsening respiratory symptoms specially hemoptysis needs to call the office quickly. Otherwise will follow-up in 6 months. Will discuss further imaging studies when he returns in 6 months. 06/17/2024 the patient is here for a pulmonary follow-up visit. Overall he continues to do well cough is better chest congestion is better overall feels normal. The patient had sputum cultures back in December indeed positive for mycobacterium still. The organism still sensitive to the azithromycin. Initially he was not a broader course of antimicrobial therapy and subsequently we were able to switch him down to monitor therapy. Currently he is going to send a small prophylactic dose of azithromycin. His imaging studies CT scans have not changed which is reassuring as well. Has waxing waning pulmonary nodules. Although he has extensive bronchiectatic changes because of the chronicity of the non tuberculosis mycobacterial infection. Still though since the patient is doing well and he is fairly asymptomatic and also considering the risks additional medications at this time based on his age and other comorbidities will go ahead and just keep him on the azithromycin 3 times a week at the current dose. If any worsening symptoms we call. Otherwise will follow-up with a chest x-ray in 6 months. Prior to the next visit he should also get an EKG. 12/16/2024 the patient is here for pulmonary follow-up visit. Since we last spoke the patient was diagnosed with pneumonia. Chest x-ray demonstrated a worsening right upper lobe airspace disease. The patient had just had a stroke and likely aspiration related. He had been on the azithromycin daily in addition to that we had put him on cefpodoxime. His symptoms improved. He is not coughing as much. He is using nebulizer. Sometimes when uses it at night he does get choked up with secretions. Therefore I did time just to use it in the morning and then in the evening as needed. He should also be using his Acapella valve. The patient's exam is reassuring. Will have him get an x-ray today to make sure that this right upper lobe process as improved. If it looks any worse then will consider additional antibiotic therapy. The patient also had blood work done including a low magnesium level will have him go for blood work as well. The patient will return 4 months. He will continue to work with physical therapy occupational therapy for his recent stroke. Seems like he has already shown some improvement. [facility] Medical History (Updated 12/18/24 @ 20:47 by Denilson Minor MD) COPD (chronic obstructive pulmonary disease) Mycobacterial disease Hernia HLD (hyperlipidemia) BPH (benign prostatic hyperplasia) Bronchiectasis Hemoptysis Pulmonary nodules Cough Abnormal chest x-ray Surgical History Hx of colonoscopy Social History Alcohol intake: former Patient Tobacco Use Status: Former Tobacco user Tobacco use type: Cigarette Years Smoked: 20 years Review of Systems Const Denies headache(s), Denies night sweats and Reports weight loss ENT Denies change in voice, Denies headache(s), Denies lip swelling, Denies mouth pain, Reports nasal congestion, Reports nasal discharge and Denies tongue swelling Card Denies chest pain Resp Denies change in phlegm color, Denies chest congestion, Reports cough, Denies hemoptysis, Denies excessive phlegm production, Denies pain on inspiration and Denies pain with cough GI Denies abdominal pain, Denies diarrhea and Reports loose stools Musc Denies no additional complaints Neuro Reports as per HPI and Denies headache(s) Psych Denies no additional complaints Brad/Lymph Denies easy bleeding and Denies lymphadenopathy Aller/Immun Denies lip swelling and Denies tongue swelling Physical Exam Vital Signs: Last Vital Signs Pulse 92 12/16/24 09:41 BP 126/64 12/16/24 09:41 Pulse Ox 97 12/16/24 09:41 Oxygen Delivery Method Room Air 12/16/24 09:41 BMI result Body Mass Index 18.6 Const General: alert Neck Neck: Yes normal visual inspection, Yes full ROM and Yes no lymphadenopathy Chest Chest palpation & inspection: normal inspection of the chest Resp Auscultation: no rhonchi, no wheezes and diminished lung sounds Cardio Rate: regular rate Rhythm: regular rhythm Heart sounds: S1 normal heart sound present and S2 normal heart sound present GI Palpation (GI): Soft to palpation and nontender Auscultation: normal bowel sounds Assessment & Plan Assessment & Plan (1) Bronchiectasis: Code(s): J47.9 - Bronchiectasis, uncomplicated Category: Medical Qualifiers: Bronchiectasis type: uncomplicated Qualified Code(s): J47.9 - Bronchiectasis, uncomplicated (2) Pulmonary nodules: Code(s): R91.8 - Other nonspecific abnormal finding of lung field Category: Medical (3) Cough: Code(s): R05 - Cough Category: Medical Qualifiers: Cough type: chronic Qualified Code(s): R05.3 - Chronic cough (4) Mycobacterial disease: Code(s): A31.9 - Mycobacterial infection, unspecified Category: Medical (5) COPD (chronic obstructive pulmonary disease): Code(s): J44.9 - Chronic obstructive pulmonary disease, unspecified Category: Medical Qualifiers: COPD type: chronic bronchitis Chronic bronchitis type: simple Qualified Code(s): J41.0 - Simple chronic bronchitis Plan CPT with neb and acapella valve start nebulizer therapy with albuterol continue azithromycin 500mg MWF Probiotics Bloodwork F/U 6 months Orders: Orders XR chest 2V 12/16/24 J47.9 - Bronchiectasis, uncomplicated Basic Metabolic Panel 12/16/24 J47.9 - Bronchiectasis, uncomplicated Magnesium 12/16/24 J47.9 - Bronchiectasis, uncomplicated Complete Blood Count Auto Diff 12/16/24 J47.9 - Bronchiectasis, uncomplicated Medications: Changed From albuterol sulfate 2.5 mg (3 mL) inhalation Q4-6H PRN 180 mL 0RF shortness of breath or wheezing J44.9 - Chronic obstructive pulmonary disease, unspecified, J47.9 - Bronchiectasis, uncomplicated To albuterol sulfate 2.5 mg (3 mL) inhalation BID 180 mL 8RF shortness of breath or wheezing J44.9 - Chronic obstructive pulmonary disease, unspecified, J47.9 - Bronchiectasis, uncomplicated Refilled azithromycin Thursday 500 mg PO 3XW 39 tabs 2RF 90 days Coding Level of Care Code Est Pt Level 4 (22019) Complex EM visit Add On G2211 Diagnoses Bronchiectasis without complication J47.9 Bronchiectasis type: uncomplicated Pulmonary nodules R91.8 Chronic cough R05.3 Cough type: chronic Mycobacterial disease A31.9 Simple chronic bronchitis J41.0 COPD type: chronic bronchitis Chronic bronchitis type: simple Time Spent (min) 17
[2024-12-16 09:41] VITALS: BP 126/64; PULSE 92; O2SAT 97; BMI 18.6
--- OUTSIDE RECORDS SUMMARY | 2024-12-16 10:35 | XMS_ITS | Clinical Summary ---
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 Name Role Phone Unavailable Primary Care Provider Unavailabl e Social History Tobacco Use Types Packs/Day Years Used Date Smoking Tobacco: Never Assessed Sex and Gender Information Value Date Recorded Sex Assigned at Not on file Legal Sex Male 11:09 AM EST Gender Identity Not on file Sexual Orientation Not on file Plan of Treatment Upcoming Encounters Date Type Department Care Team (Late st Contact Info) Description 02/02/2025 2:00 PM EDT Office Visit [facility] [address] [place] [address] Anurag John MD [address] [address] Health Maintenance Due Date Last Done Comments Pneumococcal Vaccine: 65+ Ye ars (1 of 2 - PCV) 02/20/1946 Influenza Vaccine (Season Ended) 2025 Hepatitis B Vaccine Aged Out No longe r eligible based on patient's age to complete [place] [id number] [facility] MEDICARE
--- OUTSIDE RECORDS SUMMARY | 2024-12-16 10:35 | XMS_ITS ---
Author Organization Robbie Kothari III, MD Address [address] [place] [address] [place] [address] Care Team Providers Care Systems Integrator Name Role Phone Robbie Kothari Primary Care Provider [phone] REASON FOR VISIT Verbal Orders PT Social History Sex Assigned At : Social History Observation Description Sex Assigned At Male Encounters Encounter Location Date Provider Diagnosis Robbie Kothari III, MD [address] [place] [address] [place] [address] 12/14/2024 Robbie Kothari Plan Of Treatment Next Appt Details Provider Name:Robbie Kothari, 12/19/2024 10:00:00 AM, [address] [place] [address] [place], [address], Provider Name:Robbie Kothari, 01/04/2025 03:30:00 PM, [address] [place] [address] [place], [address], Progress Notes * Freeman ROCHADOB: 0 (84 yo M)Acc No.[id number]:12/14/2024 Patient:?Freeman ROCHA :1940???Age:84 Y???Sex:Male Address:[place] [address] * true * Date:? Generated for Printi ng/Faxing/eTransmitting on:?12/16/2024 10:35 AM EDT
--- OUTSIDE RECORDS SUMMARY | 2024-12-16 10:35 | XMS_ITS ---
Author Organization Robbie Kothari III, MD Address [address] [place] [address] [address] PAST[address] [place] [address] Care Team Providers Care Electrical Cad Technician Name Role Phone Robbie Kothari Primary Care Provider [phone] Reason For Referral Reason Urgent Referral Requ est Evaluate and Treat ? Catheter Can not tolerate tamsulosin Diagnosis 1 Benign prostatic hyp erplasia with lower urinary tract symptoms (N40.1) Diagnosis 2 Nocturia (R35.1) Referral Organization Robbie Kothari III, MD Referring Provider First Name Robbie Referring Provider Last Name Saniya Referring Provider Speciality Internal M edicine Referred Provider [facility] er, Urology Referred Provider Specialty Urology General Notes Sarika Villegas 12/06/2024 09:06:05 AM > Faxed referral and progress notes from last 2 visits, Sarika Villegas 12/12/2024 10:23:22 AM > stated they did not receive referral, referral was refaxed, Sarika Villegas 12/15/2024 01:20:36 PM > Patient is scheduled with [facility] for 02/08/25 @ 2pm. Patient was also placed on the waiting list. Appointment was booked with the patients Referral Priority Routine Referral Appointment Date 02/08/2025 REASON FOR VISIT told patient to call Social History Sex Assigned At : Social History Observation Description Sex Assigned At Male Encounters Encounter Location Date Provider Diagnosis Robbie Kothari III, MD [address] [place] [address] [place] [address] 12/05/2024 Robbie Kothari Plan Of Treatment Referrals Referral Date Details 12/05/2024 12/05/2024, Urgent R eferral Request Evaluate and Treat ? Catheter Can not tolerate tamsulosin, Urology [facility] Next Appt Details Provider Name:Robbie Venturarne, 12/19/2024 10:00:00 AM, [address] [place] [address] [address], [place], [address], Provider Name:Robbie Irvingne, 01/04/2025 03:30:00 PM, [address] [place] [address] [address], [place], [address], Progress Notes * Freeman ROCHADOB: 0 (84 yo M)Acc No.[id number]:12/05/2024 Patient:?Freeman ROCHA :1940???Age:84 Y???Sex:Male Address:[address] [place] [address] [place] [address] Subjective: * Chief Complaints: * ??? told patient to call * Medical History:? * Surgical History:? * Hospitalization/Major Diagno stic Procedure:? * Medications:? Objective: * Vitals:? * Physical Examination:? Assessment: Plan: * Treatment: * Procedure Codes:? * true * Date:? Generated for Chip andres/Awais/eTransmitting on:?12/16/2024 10:35 AM EDT Consultation Request Notes Referral Date Referring Provider Referred Provider Not es 12/05/2024 Robbie Kothari [facility], Urology Urgent Referral Request Evaluate and Treat ? Catheter Can not tolerate tamsulosin
--- OUTSIDE RECORDS SUMMARY | 2024-12-16 10:36 | XMS_ITS | Encounter Summary ---
Author Organization [facility] Address [address] [place] [address] Care Team Providers Care Observer Gravity Prospecting Name Role Phone Gloria Preston MD Primary Care Provider [phone] Encounter Details Date Type Department Care Team (Late st Contact Info) Description 11/16/2024 Lab Requisition [facility] - Main Lab 299 [facility] [employer] [place] [address] Gloria Preston MD [address] [place] [address] Encounter for other general examination Social History Tobacco Use Types Packs/Day Years Used Date Smoking Tobacco: Former Cigarettes Q uit: 12/22/1959 Smokeless Tobacco: Never Alcohol Use Standard Drinks/Week Comments Yes 0 (1 standard drink = 0.6 oz pur e alcohol) Sex and Gender Information Value Date Recorded Sex Assigned at Not on file Legal Sex Male 6:34 PM EST Gender Identity Not on file Sexual Orientation Not on file documented as of this encounter Plan of Treatment Not on file documented as of this encounter Procedures Procedure Name Priority Date/Time Associated Diagnosis Comments CBC WITH AUTO DIFFERENTIAL Routine 11/16/2024 5:44 AM EST Encounter for other general examination CBC AND DIFFERENTIAL Routine 11/16/2024 5:44 AM EST Encounter for other general examination BASIC METABOLIC PANEL Routine 11/16/2024 5:44 AM EST Encounter for other general examination documented in this encounter Results * (ABNORMAL) CBC auto differential (11/16/2024 5:44 AM EST) WBC 3.8(L) 4.8 - 10.8 K/[facility] LAB HEMETOLOGY METHOD 11/16/2024 11:05 AM [facility] LAB RBC 3.90(L) 4.50 - 5.50 M/mcL LAB HEMETOLOGY METHOD 11/16/2024 11:05 AM [facility] LAB Hemoglobin 12.5(L) 13.5 - 17.5 g/dL LAB HEMETOLOGY METHOD 11/16/2024 11:05 AM [facility] LAB Hematocrit 36.5(L) 42.0 - 54.0 % LAB HEMETOLOGY METHOD 11/16/2024 11:05 AM [facility] LAB MCV 94.8 79.0 - 98.0 FL LAB HEMETOLOGY METHOD 11/16/2024 11:05 AM [facility] LAB MCH 32.5(H) 27.0 - 32.0 pcg LAB HEMETOLOGY METHOD 11/16/2024 11:05 AM [facility] LAB MCHC 34.2 32.0 - 37.0 g/dL LAB HEMETOLOGY METHOD 11/16/2024 11:05 AM [facility] LAB RDW 13.0 11.0 - 15.0 % LAB HEMETOLOGY METHOD 11/16/2024 11:05 AM [facility] LAB Platelets 307 130 - 400 K/mcL LAB HEMETOLOGY METHOD 11/16/2024 11:05 AM [facility] LAB MPV 9.8 7.0 - 11.0 FL LAB HEMETOLOGY METHOD 11/16/2024 11:05 AM [facility] LAB NRBC 0.0 <1.0 % LAB HEMETOLOGY METHOD 11/16/2024 11:05 AM [facility] LAB NRBC Absolute 0.00 <0.10 K/mcL LAB HEMETOLOGY METHOD 11/16/2024 11:05 AM [facility] LAB Neutrophils Relative 54.7 % LAB HEMETOLOGY METHOD 11/16/2024 11:05 AM [facility] LAB Lymphocytes Relative 23.1 % LAB HEMETOLOGY METHOD 11/16/2024 11:05 AM [facility] LAB Monocytes Relative 19.6 % LAB HEMETOLOGY METHOD 11/16/2024 11:05 AM [facility] LAB Eosinophils Relative 0.5 % LAB HEMETOLOGY METHOD 11/16/2024 11:05 AM [facility] LAB Basophils Relative 1.3 % LAB HEMETOLOGY METHOD 11/16/2024 11:05 AM [facility] LAB Immature Granulocytes Relative 0.8 % LAB HEMETOLOGY METHOD 11/16/2024 11:05 AM [facility] LAB Neutrophils Absolute 2.06 1.50 - 7.00 K/mcL LAB HEMETOLOGY METHOD 11/16/2024 11:05 AM [facility] LAB Lymphocytes Absolute 0.87(L) 1.00 - 5.00 K/mcL LAB HEMETOLOGY METHOD 11/16/2024 11:05 AM [facility] LAB Monocytes Absolute 0.74 0.20 - 1.00 K/mcL LAB HEMETOLOGY METHOD 11/16/2024 11:05 AM [facility] LAB Eosinophils Absolute 0.02 0.00 - 0.50 K/mcL LAB HEMETOLOGY METHOD 11/16/2024 11:05 AM [facility] LAB Basophils Absolute 0.05 0.00 - 0.20 K/mcL LAB HEMETOLOGY METHOD 11/16/2024 11:05 AM [facility] LAB Immature Granulocytes Absolute 0.03 0.00 - 0.03 K/mcL LAB HEMETOLOGY METHOD 11/16/2024 11:05 AM [facility] LAB Blood Venous blood specimen / Unknown Venipuncture / Unknown 11/16/2024 5:44 AM EST 11/16/2024 10:20 AM EST us Gloria Preston MD LAB BLOOD ORDERABLES Final Resu lt [facility] [address] [place] [address], [place] [phone] * (ABNORMAL) Basic metabolic panel (11/16/2024 5:44 AM EST) Sodium 135 133 - 145 mmol/L LAB CHEMISTRY METHOD 11/16/2024 2:30 PM [facility] LAB Potassium 4.1 3.5 - 5.5 mmol/L LAB CHEMISTRY METHOD 11/16/2024 2:30 PM [facility] LAB Chloride 99 96 - 110 mmol/L LAB CHEMISTRY METHOD 11/16/2024 2:30 PM [facility] LAB CO2 25 21 - 32 mmol/L LAB CHEMISTRY METHOD 11/16/2024 2:30 PM [facility] LAB Anion Gap 11 3 - 11 LAB CHEMISTRY METHOD 11/16/2024 2:30 PM [facility] LAB Glucose 79 70 - 100 mg/dL LAB CHEMISTRY METHOD 11/16/2024 2:30 PM [facility] BUN 18 5 - 25 mg/dL LAB CHEMISTRY METHOD 11/16/2024 2:30 PM [facility] LAB Creatinine 0.64(L) 0.70 - 1.30 mg/dL LAB CHEMISTRY METHOD 11/16/2024 2:30 PM [facility] LAB eGFR 93 >=60 mL/min/1. 73m2 LAB CHEMISTRY METHOD 11/16/2024 2:30 PM [facility] LAB Comment:Calculation based on the??Chronic Kidney Disease Epidemiology Collaboration (CKD-EPI) equation refit??without adjustment for race. BUN/Creatinine Ratio 28.1 LAB CHEMISTRY METHOD 11/16/2024 2:30 PM [facility] LAB Calcium 8.9 8.5 - 10.5 mg/dL LAB CHEMISTRY METHOD 11/16/2024 2:30 PM EST [facility] Blood Venous blood specimen / Unknown Venipuncture / Unknown 11/16/2024 5:44 AM EST 11/16/2024 10:20 AM EST us Gloria Preston MD LAB BLOOD ORDERABLES Final Resu lt [facility] [address] [place] [address], documented in this encounter Visit Diagnoses Diagnosis Encounter for other general examination documented in this encounter Care Teams Observer Gravity Prospecting Relationship Specialty Start Date End Date Gloria Preston MD [address] [place] [address] PCP - General Hospitalist Medicine 11/05/24 documented as of this encounter
--- OUTSIDE RECORDS SUMMARY | 2024-12-16 10:36 | XMS_ITS | Encounter Summary ---
Author Organization [facility] Address [address] [place] [address] Care Team Providers Care Parimutuel Ticket Cashier Name Role Phone Gloria Preston MD Primary Care Provider [phone] Encounter Details Date Type Department Care Team (Late st Contact Info) Description 11/18/2024 Lab Requisition [facility] - Main Lab 299 [facility] [place] [address] Gloria Preston MD [address] [place] [address] Encounter for other general examination Social History [...] Diagnosis Comments CBC WITH AUTO DIFFERENTIAL Routine 11/18/2024 2:59 PM EST Encounter for other general examination PROLACTIN Routine 11/18/2024 2:59 PM EST Encounter for other general examination CBC AND DIFFERENTIAL Routine 11/18/2024 2:59 PM EST Encounter for other general examination MAGNESIUM Routine 11/18/2024 2:59 PM EST Encounter for other general examination COMPREHENSIVE METABOLIC PANEL Routine 11/18/2024 2:59 PM EST Encounter for other general examination documented in this encounter Results * (ABNORMAL) CBC auto differential (11/18/2024 2:59 PM EST) WBC 3.8(L) 4.8 - 10.8 K/mcL LAB HEMETOLOGY METHOD 11/18/2024 4:02 PM [facility] RBC 3.90(L) 4.50 - 5.50 M/mcL LAB HEMETOLOGY METHOD 11/18/2024 4:02 PM [facility] Hemoglobin 12.8(L) 13.5 - 17.5 g/dL LAB HEMETOLOGY METHOD 11/18/2024 4:02 PM [facility] Hematocrit 37.1(L) 42.0 - 54.0 % LAB HEMETOLOGY METHOD 11/18/2024 4:02 PM [facility] LAB MCV 94.2 79.0 - 98.0 FL LAB HEMETOLOGY METHOD 11/18/2024 4:02 PM [facility] MCH 32.5(H) 27.0 - 32.0 pcg LAB HEMETOLOGY METHOD 11/18/2024 4:02 PM [facility] LAB MCHC 34.5 32.0 - 37.0 g/dL LAB HEMETOLOGY METHOD 11/18/2024 4:02 PM [facility] RDW 12.7 11.0 - 15.0 % LAB HEMETOLOGY METHOD 11/18/2024 4:02 PM [facility] Platelets 269 130 - 400 K/mcL LAB HEMETOLOGY METHOD 11/18/2024 4:02 PM [facility] LAB MPV 9.8 7.0 - 11.0 FL LAB HEMETOLOGY METHOD 11/18/2024 4:02 PM [facility] NRBC 0.0 <1.0 % LAB HEMETOLOGY METHOD 11/18/2024 4:02 PM [facility] NRBC Absolute 0.00 <0.10 K/mcL LAB HEMETOLOGY METHOD 11/18/2024 4:02 PM [facility] Neutrophils Relative 70.4 % LAB HEMETOLOGY METHOD 11/18/2024 4:02 PM [facility] Lymphocytes Relative 16.0 % LAB HEMETOLOGY METHOD 11/18/2024 4:02 PM [facility] Monocytes Relative 12.8 % LAB HEMETOLOGY METHOD 11/18/2024 4:02 PM [facility] Eosinophils Relative 0.0 % LAB HEMETOLOGY METHOD 11/18/2024 4:02 PM [facility] Basophils Relative 0.5 % LAB HEMETOLOGY METHOD 11/18/2024 4:02 PM [facility] Immature Granulocytes Relative 0.3 % LAB HEMETOLOGY METHOD 11/18/2024 4:02 PM [facility] Neutrophils Absolute 2.64 1.50 - 7.00 K/mcL LAB HEMETOLOGY METHOD 11/18/2024 4:02 PM [facility] Lymphocytes Absolute 0.60(L) 1.00 - 5.00 K/mcL LAB HEMETOLOGY METHOD 11/18/2024 4:02 PM [facility] Monocytes Absolute 0.48 0.20 - 1.00 K/mcL LAB HEMETOLOGY METHOD 11/18/2024 4:02 PM [facility] Eosinophils Absolute 0.00 0.00 - 0.50 K/mcL LAB HEMETOLOGY METHOD 11/18/2024 4:02 PM [facility] Basophils Absolute 0.02 0.00 - 0.20 K/mcL LAB HEMETOLOGY METHOD 11/18/2024 4:02 PM [facility] Immature Granulocytes Absolute 0.01 0.00 - 0.03 K/mcL LAB HEMETOLOGY METHOD 11/18/2024 4:02 PM EST [facility] LAB Blood Venous blood specimen / Unknown Venipuncture / Unknown 11/18/2024 2:59 PM EST 11/18/2024 3:36 PM EST us Gloria Preston MD LAB BLOOD ORDERABLES Final Resu lt Performing Organization Address [facility]/ZIP Co de Phone Number [facility] [address] [place] [address], [place] [phone] * Prolactin (11/18/2024 2:59 PM EST) Pathologist [facility] Prolactin 12.10 2.50 - 17.40 ng/mL LAB CHEMISTRY METHOD 11/18/2024 7:21 PM EST [facility] LAB Blood Venous blood specimen / Unknown Venipuncture / Unknown 11/18/2024 2:59 PM EST 11/18/2024 3:36 PM EST us Gloria Preston MD LAB BLOOD ORDERABLES Final Resu lt Performing Organization Address [facility]/ZIP Co de Phone Number [facility] [address] [place] [address], [place] [phone] * (ABNORMAL) Magnesium (11/18/2024 2:59 PM EST) [facility] Magnesium 1.6(L) 1.9 - 2.6 mg/dL LAB CHEMISTRY METHOD 11/18/2024 7:07 PM EST [facility] LAB Blood Venous blood specimen / Unknown Venipuncture / Unknown 11/18/2024 2:59 PM EST 11/18/2024 3:36 PM EST us Gloria Preston MD LAB BLOOD ORDERABLES Final Resu lt Performing Organization Address [facility]/ZIP Co de Phone Number [facility] [address] [place] [address], [place] [phone] * (ABNORMAL) Comprehensive metabolic panel (11/18/2024 2:59 PM EST) Sodium 134 133 - 145 mmol/L LAB CHEMISTRY METHOD 11/18/2024 7:21 PM [facility] Potassium 3.9 3.5 - 5.5 mmol/L LAB CHEMISTRY METHOD 11/18/2024 7:21 PM [facility] Chloride 98 96 - 110 mmol/L LAB CHEMISTRY METHOD 11/18/2024 7:21 PM [facility] CO2 27 21 - 32 mmol/L LAB CHEMISTRY METHOD 11/18/2024 7:21 PM [facility] Anion Gap 9 3 - 11 LAB CHEMISTRY METHOD 11/18/2024 7:21 PM [facility] Glucose 96 70 - 100 mg/dL LAB CHEMISTRY METHOD 11/18/2024 7:21 PM [facility] BUN 16 5 - 25 mg/dL LAB CHEMISTRY METHOD 11/18/2024 7:21 PM [facility] Creatinine 0.68(L) 0.70 - 1.30 mg/dL LAB CHEMISTRY METHOD 11/18/2024 7:21 PM [facility] eGFR 92 >=60 mL/min/1. 73m2 LAB CHEMISTRY METHOD 11/18/2024 7:21 PM [facility] LAB Comment:Calculation based on the??Chronic Kidney Disease Epidemiology Collaboration (CKD-EPI) equation refit??without adjustment for race. BUN/Creatinine Ratio 23.5 LAB CHEMISTRY METHOD 11/18/2024 7:21 PM [facility] Calcium 8.8 8.5 - 10.5 mg/dL LAB CHEMISTRY METHOD 11/18/2024 7:21 PM [facility] AST (SGOT) 25 10 - 42 unit/L LAB CHEMISTRY METHOD 11/18/2024 7:21 PM [facility] ALT (SGPT) 22 10 - 60 unit/L LAB CHEMISTRY METHOD 11/18/2024 7:21 PM EST [facility] Alkaline Phosphatase 89 42 - 121 unit/L LAB CHEMISTRY METHOD 11/18/2024 7:21 PM EST [facility] Total Protein 6.5 6.0 - 8.0 g/dL LAB CHEMISTRY METHOD 11/18/2024 7:21 PM [facility] Albumin 2.8(L) 3.2 - 5.0 g/dL LAB CHEMISTRY METHOD 11/18/2024 7:21 PM [facility] Total Bilirubin 0.3 0.0 - 1.4 mg/dL LAB CHEMISTRY METHOD 11/18/2024 7:21 PM [facility] Blood Venous blood specimen / Unknown Venipuncture / Unknown 11/18/2024 2:59 PM EST 11/18/2024 3:36 PM EST us Gloria Preston MD LAB BLOOD ORDERABLES Final Resu lt [facility] [address] [place] [address], [place] [phone] documented in this encounter Visit Diagnoses Diagnosis Encounter for other general examination documented in this encounter Care Teams Parimutuel Ticket Cashier Relationship Specialty Start Date End Date Gloria Preston MD [address] [place] [phone] PCP - General Hospitalist Medicine 11/05/24 documented as of this encounter
--- OUTSIDE RECORDS SUMMARY | 2024-12-16 10:36 | XMS_ITS ---
Author Organization [facility] Address [address] [place] [address] Care Team Providers Care Adhesion Tester Name Role Phone Robbie Kothari MD Primary Care Provider UnavailAna Damon Unavailable [phone] Allergies Allergen (clinical drug ingredient) Drug/Non Drug [...] 025 Encounters Encounter Location Date Provider Diagnosis [facility] [address] [place] [address] 09/27/2024 Ana Hernandez Tinea unguium B35.1 ; [...] Reason: Provider Name:Ana garduno, 12/27/2024 09:00:00 AM, [address] [place] [address], [phone], Procedure Notes * Category Sub-Category Detail Notes [...] use of a nail nipper and/or dremel-type wood grinder, to a more viable healthy nail [...] to maintain effectiveness in symptomatic relief - 77[address] Progress Notes * Freeman ROCHADOB: 0 (84 yo M)Acc No.[id number]:09/27/2024 Progress Note Patient:?Freeman ROCHA Provider:?Ana Hernandez DPM :1940???Age:84 Y???Sex:Male Lokesh e:09/27/2024 Address:[phone] Pcp:Robbie Kothari MD Subjective: * Chief Complaints: [...] use of a nail nipper and/or dremel-type wood grinder, to a more viable healthy nail [...] to maintain effectiveness in symptomatic relief - 39140.? * Procedure Codes:?06795 DEBRI DE NAIL, 6 OR MORE, Modifiers: XS * Follow Up:?3 Months * Images: * Sign off status: Completed true * Provider:Naresh Hernandez, KATERINA Date:? Generated for Chip andres/Awais/Tiffanie on:?12/16/2024 10:36 AM EDT History and Physical Notes * HPI (History [...]
--- OUTSIDE RECORDS SUMMARY | 2024-12-16 10:36 | XMS_ITS | Encounter Summary ---
Author Organization [facility] Address [address] [place] [address] Care Team Providers Care Transport Manager Name Role Phone Gloria Preston MD Primary Care Provider [phone] Encounter Details Date Type Department Care Team (Late st Contact Info) Description 11/14/2024 Lab Requisition [facility] - Main Lab 299 [facility] [place] [address] Gloria Preston MD [address] [place] [address] Encounter for other general examination Social History [...] Diagnosis Comments CBC WITH AUTO DIFFERENTIAL Routine 11/14/2024 6:36 AM EST Encounter for other general examination CBC AND DIFFERENTIAL Routine 11/14/2024 6:36 AM EST Encounter for other general examination BASIC METABOLIC PANEL Routine 11/14/2024 6:36 AM EST Encounter for other general examination documented in this encounter Results * (ABNORMAL) CBC auto differential (11/14/2024 6:36 AM EST) WBC 4.3(L) 4.8 - 10.8 K/[facility] LAB HEMETOLOGY METHOD 11/14/2024 10:05 AM [facility] RBC 4.00(L) 4.50 - 5.50 M/mcL LAB HEMETOLOGY METHOD 11/14/2024 10:05 AM [facility] Hemoglobin 13.0(L) 13.5 - 17.5 g/dL LAB HEMETOLOGY METHOD 11/14/2024 10:05 AM [facility] LAB Hematocrit 37.6(L) 42.0 - 54.0 % LAB HEMETOLOGY METHOD 11/14/2024 10:05 AM [facility] LAB MCV 93.5 79.0 - 98.0 FL LAB HEMETOLOGY METHOD 11/14/2024 10:05 AM [facility] LAB MCH 32.3(H) 27.0 - 32.0 pcg LAB HEMETOLOGY METHOD 11/14/2024 10:05 AM [facility] MCHC 34.6 32.0 - 37.0 g/dL LAB HEMETOLOGY METHOD 11/14/2024 10:05 AM [facility] RDW 12.4 11.0 - 15.0 % LAB HEMETOLOGY METHOD 11/14/2024 10:05 AM [facility] Platelets 368 130 - 400 K/mcL LAB HEMETOLOGY METHOD 11/14/2024 10:05 AM [facility] MPV 9.7 7.0 - 11.0 FL LAB HEMETOLOGY METHOD 11/14/2024 10:05 AM [facility] NRBC 0.0 <1.0 % LAB HEMETOLOGY METHOD 11/14/2024 10:05 AM [facility] NRBC Absolute 0.00 <0.10 K/mcL LAB HEMETOLOGY METHOD 11/14/2024 10:05 AM [facility] Neutrophils Relative 76.1 % LAB HEMETOLOGY METHOD 11/14/2024 10:05 AM [facility] Lymphocytes Relative 10.3 % LAB HEMETOLOGY METHOD 11/14/2024 10:05 AM [facility] Monocytes Relative 11.0 % LAB HEMETOLOGY METHOD 11/14/2024 10:05 AM [facility] Eosinophils Relative 1.2 % LAB HEMETOLOGY METHOD 11/14/2024 10:05 AM [facility] Basophils Relative 0.9 % LAB HEMETOLOGY METHOD 11/14/2024 10:05 AM [facility] Immature Granulocytes Relative 0.5 % LAB HEMETOLOGY METHOD 11/14/2024 10:05 AM [facility] Neutrophils Absolute 3.26 1.50 - 7.00 K/mcL LAB HEMETOLOGY METHOD 11/14/2024 10:05 AM [facility] Lymphocytes Absolute 0.44(L) 1.00 - 5.00 K/mcL LAB HEMETOLOGY METHOD 11/14/2024 10:05 AM [facility] Monocytes Absolute 0.47 0.20 - 1.00 K/mcL LAB HEMETOLOGY METHOD 11/14/2024 10:05 AM [facility] Eosinophils Absolute 0.05 0.00 - 0.50 K/mcL LAB HEMETOLOGY METHOD 11/14/2024 10:05 AM [facility] Basophils Absolute 0.04 0.00 - 0.20 K/mcL LAB HEMETOLOGY METHOD 11/14/2024 10:05 AM [facility] LAB Immature Granulocytes Absolute 0.02 0.00 - 0.03 K/mcL LAB HEMETOLOGY METHOD 11/14/2024 10:05 AM [facility] LAB Blood Venous blood specimen / Unknown Venipuncture / Unknown 11/14/2024 6:36 AM EST 11/14/2024 8:21 AM EST us Gloria Preston MD LAB BLOOD ORDERABLES Final Resu lt [facility] [address] [place] [address], * (ABNORMAL) Basic metabolic panel (11/14/2024 6:36 AM EST) Sodium 135 133 - 145 mmol/L LAB CHEMISTRY METHOD 11/14/2024 10:43 AM [facility] Potassium 4.0 3.5 - 5.5 mmol/L LAB CHEMISTRY METHOD 11/14/2024 10:43 AM [facility] Chloride 101 96 - 110 mmol/L LAB CHEMISTRY METHOD 11/14/2024 10:43 AM [facility] CO2 24 21 - 32 mmol/L LAB CHEMISTRY METHOD 11/14/2024 10:43 AM [facility] Anion Gap 10 3 - 11 LAB CHEMISTRY METHOD 11/14/2024 10:43 AM [facility] Glucose 86 70 - 100 mg/dL LAB CHEMISTRY METHOD 11/14/2024 10:43 AM [facility] BUN 22 5 - 25 mg/dL LAB CHEMISTRY METHOD 11/14/2024 10:43 AM [facility] Creatinine 0.59(L) 0.70 - 1.30 mg/dL LAB CHEMISTRY METHOD 11/14/2024 10:43 AM [facility] LAB eGFR 96 >=60 mL/min/1. 73m2 LAB CHEMISTRY METHOD 11/14/2024 10:43 AM [facility] LAB Comment:Calculation based on the??Chronic Kidney Disease Epidemiology Collaboration (CKD-EPI) equation refit??without adjustment for race. BUN/Creatinine Ratio 37.3 LAB CHEMISTRY METHOD 11/14/2024 10:43 AM [facility] Calcium 9.0 8.5 - 10.5 mg/dL LAB CHEMISTRY METHOD 11/14/2024 10:43 AM EST [facility] Blood Venous blood specimen / Unknown Venipuncture / Unknown 11/14/2024 6:36 AM EST 11/14/2024 8:21 AM EST us Gloria Preston MD LAB BLOOD ORDERABLES Final Resu lt [facility] [address] [place] [address], documented in this encounter Visit Diagnoses Diagnosis Encounter for other general examination documented in this encounter Care Teams Transport Manager Relationship Specialty Start Date End Date Gloria Preston MD [address] [place] [phone] PCP - General Hospitalist Medicine 11/05/24 documented as of this encounter
--- OUTSIDE RECORDS SUMMARY | 2024-12-16 10:36 | XMS_ITS ---
Author Organization [facility] jarett Almond Address [address] [place] [address] Care Team Providers Care Salvage Mend Worker Name Role Phone Robbie Kothari MD Primary Care Provider UnavailAna Damon Unavailable [phone] Allergies Allergen (clinical drug ingredient) Drug/Non Drug [...] Azithromycin 500 MG TAKE 1 TABLET BY RAMNI TH 3 TIMES A WEEK ON THURSDAY,THURSDAY [...] 03/29/2024 Encounters Encounter Location Date Provider Diagnosis [facility] [address] [place] [address] 03/29/2024 Ana Hernandez Tinea unguium B35.1 ; [...] Reason: Provider Name:Ana garduno, 12/27/2024 09:00:00 AM, [address] [place] [address], [id number], Procedure Notes * Category Sub-Category Detail Notes [...] as necessary. Patient chooses, no pharmaceutical tx (85876) Progress Notes * Freeman ROCHADOB: 0 (84 yo M)Acc No.[id number]:03/29/2024 Progress Note Patient:?Freeman Rocha Provider:?Ana Hernandez DPM :1940???Age:84 Y???Sex:Male Lokesh e:03/29/2024 [facility] Pcp:Robbie Kothari MD Subjective: * Chief Complaints: [...] as necessary. Patient chooses, no pharmaceutical tx (48679).? * Procedure Codes:?93793 DEBRI DE NAIL, 6 OR MORE, Modifiers: XS * Follow Up:?3 Months * Images: * Sign off status: Completed true * Provider:?Ana Hernandez, DPM Date:? Generated for Chip andres/Awais/Jamessmitting on:?12/16/2024 10:36 AM EDT History and Physical [...]
--- OUTSIDE RECORDS SUMMARY | 2024-12-16 10:36 | XMS_ITS ---
Author Organization Robbie Kothari III, MD Address [address] [facility] [place] [address] Care Team Providers Care Overlock Collar Setter Name Role Phone Robbie Kothari Primary Care Provider [phone] Allergies Allergen (clinical drug ingredient) Drug/Non Drug Allergy documented on EMR Reaction Allergy Type Onset Date Status No Known Drug Allergy Unknown Drug Allergy Active REASON FOR VISIT Recent left cerebral hemorrhage, Sleep apnea, Benign prostatic hypertrophy, Depression, Underweight, Recent hyponatremia Medications Medication SIG (Take, Route, Frequency, Duration) Notes Start Date End Date Status guaiFENesin ER 600 MG 1 tablet Oral twice a day As needed Active Azithromycin 500 MG Oral Active Atorvastatin Calcium 10 MG 1 tablet Oral ly at bed time Active Magnesium 400 MG 1 tablet Orally at b ed time Active MiraLax 17 GM/SCOOP 1 scoop mixed with 8 ounces of fluid Orally every 2 to 3 days Active Social History Tobacco Use: Social History Observation Description Date Details (start date - stop date) Former Smoker NA - NA Sex Assigned At : Social History Observation Description Sex Assigned At Male Tobacco Use/Smoking Question Answer Notes Patient is a former smoker How long has it been since you last smoked? > 10 years Additional Findings: Tobacco Non-User Ex-cigaret te smoker Problems Problem Type SNOMED Code ICD Code Onset Dates Problem Status W/U Status Risk Notes Problem Pneumonia (424611919) Pneumonia (J18.9) Active confirmed He reports coughing at night. His age azithromycin has been increased to once a day from 3 times a week. Chest x-ray has been ordered. His oxygen saturation was 96%. Vital Signs Temperature 97.2 degrees Fahrenheit 12/03/19 25 Blood pressure systolic 121 mm Hg 12/03/19 25 Blood pressure diastolic 74 mm Hg 025 Heart Rate 94 /min 12/02/2024 Height 76 in 12/02/2024 Weight 151 lbs 12/02/2024 BMI 18.38 kg/m2 12/02/2024 Encounters Encounter Location Date Provider Diagnosis Robbie Kothari III, MD [address] [place] [address] [place] [address] 12/02/2024 Robbie Kothari Hyperlipidemia E78.5 ; 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 ; Pneumonia J18.9 ; Former smoker Z87.891 ; Mycobacterial infection, unspecified A31.9 ; Sleep apnea in adult G47.30 and Benign prostatic hyperplasia with lower urinary tract symptoms N40.1 Assessments Encounter Date Diagnosis (ICD Code) Assessment Notes Treat ment Notes Treatment Clinical Notes 12/02/2024 Hyperlipidemia (ICD-10 - E78.5) Distal cholesterol is stable but his triglycerides are elevated. He will continue on his current diet until he has fully recovered from the stroke. He will continue on his medications. 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 He was discharged from rehabilitation [address] scan done November 18, 2024 of the brain showed improved edema and hemorrhage. We have scheduled an EEG to evaluate the possibility of seizures manifest as periods of unresponsiveness. I have discontinued the Keppra. I've also discontinue the Lexapro to better follow his mental status. We have continued the azithromycin. His blood pressure is stable today. Will be seen once a week at least. 12/02/2024 Pneumonia (ICD-10 - J18.9) He reports coughing at night. His age azithromycin has been increased to once a day from 3 times a week. Chest x-ray has been ordered. His oxygen saturation was 96%. 12/02/2024 Former smoker (ICD-10 - Z87.891) He has a strategy to prevent relapse in times of stress and illness. 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 He has been told by pulmonary that his infection is making progress. The CT scan of November 29 show stability in the 1.3 cm right upper lobe cavitary leesion. 12/02/2024 Sleep apnea in adult (ICD-10 - G47.30) He is using the new CPAP machine without difficulty and is pleased with the results. 12/02/2024 Benign prostatic hyperplasia with lower urinary tract symptoms (ICD-10 - N40.1) He says he is rising from sleep up to 4 times a night. His tamsulosin waas stopped because of a low blood pressure. It curtis now resumed. He is happy with this level of control. We discussed further lifestyle modifications he can maake to reduce nocturia. Plan Of Treatment Medication Medication Name Sig Start Date Stop Date Notes guaiFENesin ER 600 MG 1 tablet Oral twice a day Azithromycin 500 MG Oral Atorvastatin Calcium 10 MG 1 tablet Orally at bed time Magnesium 400 MG 1 tablet Orally at bed time MiraLax 17 GM/SCOOP 1 scoop mixed with 8 ounces of fluid Orally every 2 to 3 days Pending Test Test Name Order Date XR CHEST 2 VIEW PA & LAT 12/02/2024 Next Appt Details Follow Up: 2 Weeks, Reason: OV Provider Name:Robbie Kothari, 12/19/2024 10:00:00 AM, [address] [place] [address] [address], [place], [address], Provider Name:Robbie Kothari, 01/04/2025 03:30:00 PM, [address] [place] [address] [address], [place], [address], Progress Notes * Freeman ROCHADOB: 0 (84 yo M)Acc No.[id number]:12/02/2024 Progress Notes Patient:?Freeman ROCHA Provider:?Robbie Kothari MD :1940???Age:84 Y???Sex:Male Lokesh e:12/02/2024 Address: [address] [id number] Subjective: * Chief Complaints: * ???Recent left cerebral hemo rrhageSleep apneaBenign prostatic hypertrophyDepressionUnderweightRecent hyponatremia * HPI: ???COVID-19 Screening:?Questions?Have you had any new onset fever, chills, cough, congestion, sore throat, shortness of breath, muscle aches??No ?. He returns at a short inteerval follow-up on his blood pressure, nocturnal urinating, recovery from his left cerebral hemorrhage at the insomnia.? He has been rising from sleep 4 times a night to urinate at bedside.? He is coughing his recent flareup of pneumonia.? Chest x-ray has been ordered.? His 80s azithromycin whhich has been 3 timees a week was increased to daily. He seemed more alertt.? His speech was clear.? He is more attentive to his surroundings.? I was able to have a conversation with him.? His and son-in-law were present in the room and 2 daughters were on the telephone.He will resume his Lexapro and his ttamsulosin.? The chest x-ray will be reviewed. * ROS:?General/Constitutional:?pain?only normal aches and pains.?Chills?denies.?Fatigue?admits.?Fever?denies.?ENT:?Decreased hearing?mild.?Respiratory:?Cough?denies.?Cardiovascular:?Chest pain with exertion?denies.?Dyspnea on exertion?denies.?Shortness of breath?denies.?Gastrointestinal:?Constipation?occasional.?Decreased appetite?denies.?Diarrhea?denies.?Heartburn?denies.?Nausea?denies.?Rectal bleeding?denies.?Vomiting?denies.?Hematology:?bruising?denies.?petechiae?denies.?Swollen glands?none have been noted.?Genitourinary:?Frequent urination?four or more times a night.?Musculoskeletal:?Muscle aches?denies.?Painful joints?denies.?Sciatica?denies.?Weakness?denies.?Skin:?Itching?denies.?Rash?denies.?Skin lesion(s)?denies.?Neurologic:?Difficulty speaking?denies.?Dizziness?denies.?Headache?denies.?Low back pain?denies.?Psychiatric:?Depressed mood?which is mild.? * Medical History:? * Surgical History:?colonoscop y 2009No history * Hospitalization/Major Diagno stic Procedure:?No history * Family History:?Father: dece ased 73 yrs, dementia.?Mother: 75 yrs, lung cancer, diagnosed with Cancer.?Spouse: alive 65 yrs, migraine headaches.?1 brother(s) , 1 sister(s) . 2 daughter(s) - healthy. .? A brother has hyperlipidemia. He is not aware of any family history of breast cancer, uterine cancer or ovarian cancer. He is not aware of any family history of mental illness, substance use disorder. * Social History:?Tobacco Use:?Tobacco Use/Smoking?Patient is a?former smoker ?How long has it been since you last smoked??> 10 years ?Additional Findings: Tobacco Non-User?Ex-cigarette smoker ???He has been to [place] for 43 years and has 2 children and 2 grandchildren. 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 He was born in [place], [place]. * Medications:?TakingMiraLax 1 7 GM/SCOOP Powder 1 scoop mixed with 8 ounces of fluid Orally every 2 to 3 days Magnesium 400 MG Capsule 1 tablet Orally at bed time Atorvastatin Calcium 10 MG Tablet 1 tablet Orally at bed time Azithromycin 500 MG Tablet Oral guaiFENesin ER 600 MG Tablet Extended Release 12 Hour 1 tablet Oral twice a day As neededTaking MiraLax 17 GM/SCOOP Powder 1 scoop mixed with 8 ounces of fluid Orally every 2 to 3 days Taking Magnesium 400 MG Capsule 1 tablet Orally at bed time Taking Atorvastatin Calcium 10 MG Tablet 1 tablet Orally at bed time Taking Azithromycin 500 MG Tablet Oral Taking guaiFENesin ER 600 MG Tablet Extended Release 12 Hour 1 tablet Oral twice a day As neededDiscontinuedAdvil PM 200-38 MG Tablet 2 tablets at bedtime as needed Orally Once a day Albuterol Sulfate (2.5 MG/3ML) 0.083% Nebulization Solution 3 ml as needed Inhalation every 6 hrs EQL CoQ10 300 MG Capsule 1 capsule with a meal Orally Once a day Midodrine HCl 5 MG Tablet 1 tablet Orally Twice a day Mucinex 600 MG Tablet Extended Release 12 Hour 1 tablet as needed Orally every 12 hrs , stop date 01/02/2025levETIRAcetam 500 MG Tablet 1 tablet Orally every 12 hrs Escitalopram Oxalate 10 MG Tablet TAKE 1 TABLET BY MOUTH EVERYDAY AT BEDTIME Oral Tamsulosin HCl 0.4 MG Capsule TAKE 1 CAPSULE BY MOUTH AT BEDTIME Oral Medication List reviewed and reconciled with the patientDiscontinued Advil PM 200-38 MG Tablet 2 tablets at bedtime as needed Orally Once a day Discontinued Albuterol Sulfate (2.5 MG/3ML) 0.083% Nebulization Solution 3 ml as needed Inhalation every 6 hrs Discontinued EQL CoQ10 300 MG Capsule 1 capsule with a meal Orally Once a day Discontinued Midodrine HCl 5 MG Tablet 1 tablet Orally Twice a day Discontinued Mucinex 600 MG Tablet Extended Release 12 Hour 1 tablet as needed Orally every 12 hrs , stop date 01/02/2025Discontinued levETIRAcetam 500 MG Tablet 1 tablet Orally every 12 hrs Discontinued Escitalopram Oxalate 10 MG Tablet TAKE 1 TABLET BY MOUTH EVERYDAY AT BEDTIME Oral Discontinued Tamsulosin HCl 0.4 MG Capsule TAKE 1 CAPSULE BY MOUTH AT BEDTIME Oral Medication List reviewed and reconciled with the patient * Allergies:?No Known Drug All ergyno[Allergies Verified] Objective: * Vitals:?Ht: 76, Wt:151, BMI: 18.38, BP:121/74, HR:94, Temp:97.2, Wt-k.49. * Examination: ???General Examination: ?GENERAL APPEARANCE:?pleasant, well nourished, well developed, in no acute distress, calm and relaxed, overweight, man.?HEAD:?atraumatic, normocephalic.?EYES:?eomi, perrla, anicteric, conjugate.?EARS:?normal.?NOSE:?septum intact.?ORAL CAVITY:?normal, unremarkable.?NECK/THYROID:?no jugular venous distention, no carotid bruit, thyroid normal.?LYMPH NODES:?no enlarged lymph nodes,spleen normal.?SKIN:?no suspicious lesions, anicteric.?HEART:?no clicks, gallops, murmurs, or rubs, regular rhythm, S1, S2 normal, no s3, or vascular bruits.?LUNGS:?rhonchi on the LEFT, diminished breath sounds throughout.?BREASTS:??no masses palpable bilaterally.?ABDOMEN:?bowel sounds normal, no ascites, no organomegaly, no mass.?RECTAL EXAM:?not examined.?MUSCULOSKELETAL:?extremities unremarkable, no clubbing, cyanosis or edema.?PERIPHERAL PULSES:?normal.?NEUROLOGIC:?alert and oriented, cranial nerves 2-12 grossly intact, deep tendon reflexes 2+ symmetrical, motor strength normal upper and lower extremities, sensory exam intact, Generalized wweakness, speech clear, able to stand and walk, much more attentive to others and surrounding Sten last week.?PSYCH:?alert, oriented.? Assessment: * Assessment: 1.?Nontraumatic hemorrhage o f left cerebral hemisphere - I61.2 (Primary)???Notes :This occurred on October 26, 2023. He was discharged from rehabilitation [address] scan done November 18, 2024 of the brain showed improved edema and hemorrhage. We have scheduled an EEG to evaluate the possibility of seizures manifest as periods of unresponsiveness. I have discontinued the Keppra. I've also discontinue the Lexapro to better follow his mental status. We have continued the azithromycin. His blood pressure is stable today. Will be seen once a week at least.???2.?Hyperlipidemia - E78.5???Notes :Distal cholesterol is stable but his triglycerides are elevated.? He will continue on his current diet until he has fully recovered from the stroke.? He will continue on his medications.???3.?Pneumonia - J18.9???Notes :He reports coughing at night.? His age azithromycin has been increased to once a day from 3 times a week.? Chest x-ray has been ordered.? His oxygen saturation was 96%.???4.?Former smoker - Z87.891???Notes :He has a strategy to prevent relapse in times of stress and illness.???5.?Mycobacterial infection, unspecified - A31.9???Notes :He continues on daily basis Romycin. He has been told by pulmonary that his infection is making progress. The CT scan of November 29 show stability in the 1.3 cm right upper lobe cavitary leesion.???6.?Sleep apnea in adult - G47.30???Notes :He is using the new CPAP machine without difficulty and is pleased with the results.???7.?Benign prostatic hyperplasia with lower urinary tract symptoms - N40.1???Notes :He says he is rising from sleep up to 4 times a night.? His tamsulosin waas stopped because of a low blood pressure.? It curtis now resumed. ?He is happy with this level of control. We discussed further lifestyle modifications he can maake to reduce nocturia.??? Plan: * Treatment: 2.?Pneumonia?Imaging: XR CHEST 2 VIEW PA & LAT * Procedure Codes:? * Preventive Medicine:? ??Counseling:?Care goal follow-up plan:?Counseling for abnormal BMI given?Yes ?Below Normal BMI Follow-up?Dietary education for weight gain, Dietary management education, guidance, and counseling, Feeding regime, Lifestyle education regarding diet, Nutrition / feeding management, Prescribed diet education, Special diet education, Intervention, Order not done: Medical or Other reason not done ?Smoking/Tobacco Use?Patient counseled on the dangers of tobacco use and urged to quit.?12/02/2024 * Follow Up:?2 Weeks (Reason: OV) * Images: * Sign off status: Completed true * Provider:?Robbie Kothari MD Date:?11/13 Generated for Larisai dmitry/Awais/eTransmitting on:?12/16/2024 10:36 AM EDT History and Physical Notes * HPI (History of Present Illness) Category Sub-Category Detail Notes COVID-19 Screening Questions Have you had any new onset fever, chills, cough, congestion, sore throat, shortness of breath, muscle aches?: No Examination Category Sub-Category Detail Notes General Examination GENERAL APPEARANCE: pleasant , well nourished, well developed, in no acute distress, calm and relaxed, overweight, man HEAD: atraumatic, normocep halic EYES: eomi, perrla, anicte marifer, conjugate EARS: normal NOSE: septum intact NECK/THYROID: no jugular venous di stention, no carotid bruit, thyroid normal HEART: no clicks, gallops, murmurs, or rubs, regular rhythm, S1, S2 normal, no s3, or vascular bruits LUNGS: rhonchi on the LEFT, diminished breath sounds throughout ABDOMEN: bowel sounds normal, no ascites, no organomegaly, no mass NEUROLOGIC: alert and oriented, cranial nerves 2-12 grossly intact, deep tendon reflexes 2+ symmetrical, motor strength normal upper and lower extremities, sensory exam intact, Generalized wweakness, speech clear, able to stand and walk, much more attentive to others and surrounding Sten last week SKIN: no suspicious lesion s, anicteric PERIPHERAL PULSES: normal BREASTS: no masses palpable b ilaterally MUSCULOSKELETAL: extremities unremark able, no clubbing, cyanosis or edema LYMPH NODES: no enlarged lymph no neno,spleen normal RECTAL EXAM: not examined PSYCH: alert, oriented ORAL CAVITY: normal, unremarkable
--- OUTSIDE RECORDS SUMMARY | 2024-12-16 10:36 | XMS_ITS | Encounter Summary ---
Author Organization [facility] Address [address] [place] [address] Care Team Providers Care Bag Patcher Name Role Phone Gloria Preston MD Primary Care Provider [phone] Encounter Details Date Type Department Care Team (Late st Contact Info) Description 11/05/2024 Lab Requisition [facility] - Main Lab [address] [facility] [employer] [place] [address] Gloria Preston MD [address] [place] [address] Encounter for other general examination Social History [...] Diagnosis Comments CBC WITH AUTO DIFFERENTIAL Routine 11/05/2024 5:51 AM EST Encounter for other general examination CBC AND DIFFERENTIAL Routine 11/05/2024 5:51 AM EST Encounter for other general examination MAGNESIUM Routine 11/05/2024 5:51 AM EST Encounter for other general examination COMPREHENSIVE METABOLIC PANEL Routine 11/05/2024 5:51 AM EST Encounter for other general examination documented in this encounter Results * (ABNORMAL) CBC auto differential (11/05/2024 5:51 AM EST) [facility] WBC 8.0 4.8 - 10.8 K/mcL LAB HEMETOLOGY METHOD 11/05/2024 11:21 AM [facility] LAB RBC 4.20(L) 4.50 - 5.50 M/mcL LAB HEMETOLOGY METHOD 11/05/2024 11:21 AM [facility] LAB Hemoglobin 13.8 13.5 - 17.5 g/dL LAB HEMETOLOGY METHOD 11/05/2024 11:21 AM [facility] LAB Hematocrit 39.6(L) 42.0 - 54.0 % LAB HEMETOLOGY METHOD 11/05/2024 11:21 AM [facility] LAB MCV 94.7 79.0 - 98.0 FL LAB HEMETOLOGY METHOD 11/05/2024 11:21 AM [facility] LAB MCH 33.0(H) 27.0 - 32.0 pcg LAB HEMETOLOGY METHOD 11/05/2024 11:21 AM [facility] LAB MCHC 34.8 32.0 - 37.0 g/dL LAB HEMETOLOGY METHOD 11/05/2024 11:21 AM [facility] LAB RDW 12.7 11.0 - 15.0 % LAB HEMETOLOGY METHOD 11/05/2024 11:21 AM [facility] LAB Platelets 261 130 - 400 K/mcL LAB HEMETOLOGY METHOD 11/05/2024 11:21 AM [facility] LAB MPV 10.4 7.0 - 11.0 FL LAB HEMETOLOGY METHOD 11/05/2024 11:21 AM [facility] LAB NRBC 0.0 <1.0 % LAB HEMETOLOGY METHOD 11/05/2024 11:21 AM [facility] LAB NRBC Absolute 0.00 <0.10 K/mcL LAB HEMETOLOGY METHOD 11/05/2024 11:21 AM [facility] LAB Neutrophils Relative 73.3 % LAB HEMETOLOGY METHOD 11/05/2024 11:21 AM [facility] LAB Lymphocytes Relative 10.6 % LAB HEMETOLOGY METHOD 11/05/2024 11:21 AM [facility] Monocytes Relative 14.7 % LAB HEMETOLOGY METHOD 11/05/2024 11:21 AM [facility] LAB Eosinophils Relative 0.4 % LAB HEMETOLOGY METHOD 11/05/2024 11:21 AM [facility] Basophils Relative 0.6 % LAB HEMETOLOGY METHOD 11/05/2024 11:21 AM [facility] Immature Granulocytes Relative 0.4 % LAB HEMETOLOGY METHOD 11/05/2024 11:21 AM [facility] LAB Neutrophils Absolute 5.87 1.50 - 7.00 K/mcL LAB HEMETOLOGY METHOD 11/05/2024 11:21 AM [facility] Lymphocytes Absolute 0.85(L) 1.00 - 5.00 K/mcL LAB HEMETOLOGY METHOD 11/05/2024 11:21 AM [facility] LAB Monocytes Absolute 1.18(H) 0.20 - 1.00 K/mcL LAB HEMETOLOGY METHOD 11/05/2024 11:21 AM [facility] LAB Eosinophils Absolute 0.03 0.00 - 0.50 K/mcL LAB HEMETOLOGY METHOD 11/05/2024 11:21 AM [facility] Basophils Absolute 0.05 0.00 - 0.20 K/mcL LAB HEMETOLOGY METHOD 11/05/2024 11:21 AM [facility] LAB Immature Granulocytes Absolute 0.03 0.00 - 0.03 K/mcL LAB HEMETOLOGY METHOD 11/05/2024 11:21 AM [facility] LAB Blood Venous blood specimen / Unknown Venipuncture / Unknown 11/05/2024 5:51 AM EST 11/05/2024 9:43 AM EST us Gloria Preston MD LAB BLOOD ORDERABLES Final Resu lt [facility] LAB [address] [place] [address], [place] [phone] * Magnesium (11/05/2024 5:51 AM EST) [facility] Magnesium 2.0 1.9 - 2.6 mg/dL LAB CHEMISTRY METHOD 11/05/2024 11:42 AM EST [facility] LAB Blood Venous blood specimen / Unknown Venipuncture / Unknown 11/05/2024 5:51 AM EST 11/05/2024 9:43 AM EST us Gloria Preston MD LAB BLOOD ORDERABLES Final Resu lt Performing Organization Address City/[facility]/ZIP Co de Phone Number [facility] LAB [address] [place] [address], [place] [phone] * (ABNORMAL) Comprehensive metabolic panel (11/05/2024 5:51 AM EST) [facility] Sodium 133 133 - 145 mmol/L LAB CHEMISTRY METHOD 11/05/2024 11:44 AM [facility] Potassium 4.1 3.5 - 5.5 mmol/L LAB CHEMISTRY METHOD 11/05/2024 11:44 AM [facility] Chloride 99 96 - 110 mmol/L LAB CHEMISTRY METHOD 11/05/2024 11:44 AM [facility] CO2 24 21 - 32 mmol/L LAB CHEMISTRY METHOD 11/05/2024 11:44 AM [facility] Anion Gap 10 3 - 11 LAB CHEMISTRY METHOD 11/05/2024 11:44 AM [facility] Glucose 92 70 - 100 mg/dL LAB CHEMISTRY METHOD 11/05/2024 11:44 AM [facility] BUN 18 5 - 25 mg/dL LAB CHEMISTRY METHOD 11/05/2024 11:44 AM [facility] Creatinine 0.54(L) 0.70 - 1.30 mg/dL LAB CHEMISTRY METHOD 11/05/2024 11:44 AM [facility] LAB eGFR 98 >=60 mL/min/1. 73m2 LAB CHEMISTRY METHOD 11/05/2024 11:44 AM [facility] LAB Comment:Calculation based on the??Chronic Kidney Disease Epidemiology Collaboration (CKD-EPI) equation refit??without adjustment for race. BUN/Creatinine Ratio 33.3 LAB CHEMISTRY METHOD 11/05/2024 11:44 AM [facility] Calcium 9.0 8.5 - 10.5 mg/dL LAB CHEMISTRY METHOD 11/05/2024 11:44 AM [facility] LAB AST (SGOT) 17 10 - 42 unit/L LAB CHEMISTRY METHOD 11/05/2024 11:44 AM [facility] ALT (SGPT) 19 10 - 60 unit/L LAB CHEMISTRY METHOD 11/05/2024 11:44 AM [facility] Alkaline Phosphatase 83 42 - 121 unit/L LAB CHEMISTRY METHOD 11/05/2024 11:44 AM [facility] Total Protein 6.6 6.0 - 8.0 g/dL LAB CHEMISTRY METHOD 11/05/2024 11:44 AM [facility] Albumin 2.8(L) 3.2 - 5.0 g/dL LAB CHEMISTRY METHOD 11/05/2024 11:44 AM [facility] Total Bilirubin 1.1 0.0 - 1.4 mg/dL LAB CHEMISTRY METHOD 11/05/2024 11:44 AM [facility] Blood Venous blood specimen / Unknown Venipuncture / Unknown 11/05/2024 5:51 AM EST 11/05/2024 9:43 AM EST us Gloria Preston MD LAB BLOOD ORDERABLES Final Resu lt [facility] [address] [place] [address], documented in this encounter Visit Diagnoses Diagnosis Encounter for other general examination documented in this encounter Care Teams Bag Patcher Relationship Specialty Start Date End Date Gloria Preston MD [address] [place] [address] PCP - General Hospitalist Medicine 11/05/24 documented as of this encounter
--- OUTSIDE RECORDS SUMMARY | 2024-12-16 10:36 | XMS_ITS | Encounter Summary ---
Author Organization [facility] Address [address] [place] [address] Care Team Providers Care Calculator Operator Name Role Phone Gloria Preston MD Primary Care Provider [phone] Encounter Details Date Type Department Care Team (Late st Contact Info) Description 11/10/2024 Lab Requisition [facility] - Main Lab [address] [facility] [place] [address] Gloria Preston MD [address] [place] [address] Encounter for other general examination Social History [...] Diagnosis Comments CBC WITH AUTO DIFFERENTIAL Routine 11/10/2024 6:06 AM EST Encounter for other general examination CBC AND DIFFERENTIAL Routine 11/10/2024 6:06 AM EST Encounter for other general examination THYROID STIMULATING HORMONE Routine 11/10/2024 6:06 AM EST Encounter for other general examination MAGNESIUM Routine 11/10/2024 6:06 AM EST Encounter for other general examination VITAMIN B12 Routine 11/10/2024 6:06 AM EST Encounter for other general examination BASIC METABOLIC PANEL Routine 11/10/2024 6:06 AM EST Encounter for other general examination documented in this encounter Results * Vitamin B12 (11/10/2024 6:06 AM EST) [facility] Vitamin B-12 413 250 - 900 pcg/mL LAB CHEMISTRY METHOD 11/10/2024 9:28 PM EST [facility] Blood Venous blood specimen / Unknown Venipuncture / Unknown 11/10/2024 6:06 AM EST 11/10/2024 8:03 AM EST Gloria Preston MD LAB BLOOD ORDERABLES Final Resu lt Performing Organization Address [facility]/ZIP Co de Phone Number [facility] [address] [place] [address], [place] [phone] * Thyroid stimulating hormone (11/10/2024 6:06 AM EST) [facility] TSH 1.57 0.40 - 4.00 mcIU/mL LAB CHEMISTRY METHOD 11/10/2024 9:51 PM EST [facility] LAB Blood Venous blood specimen / Unknown Venipuncture / Unknown 11/10/2024 6:06 AM EST 11/10/2024 8:03 AM EST Gloria Preston MD LAB BLOOD ORDERABLES Final Resu lt [facility] [address] [place] [address], [place] [phone] * (ABNORMAL) CBC auto differential (11/10/2024 6:06 AM EST) [facility] WBC 6.0 4.8 - 10.8 K/[facility] LAB HEMETOLOGY METHOD 11/10/2024 8:44 AM EST [facility] LAB RBC 3.80(L) 4.50 - 5.50 M/[facility] LAB HEMETOLOGY METHOD 11/10/2024 8:44 AM [facility] LAB Hemoglobin 12.4(L) 13.5 - 17.5 g/dL LAB HEMETOLOGY METHOD 11/10/2024 8:44 AM [facility] LAB Hematocrit 36.7(L) 42.0 - 54.0 % LAB HEMETOLOGY METHOD 11/10/2024 8:44 AM [facility] LAB MCV 95.6 79.0 - 98.0 FL LAB HEMETOLOGY METHOD 11/10/2024 8:44 AM [facility] LAB MCH 32.3(H) 27.0 - 32.0 pcg LAB HEMETOLOGY METHOD 11/10/2024 8:44 AM [facility] LAB MCHC 33.8 32.0 - 37.0 g/dL LAB HEMETOLOGY METHOD 11/10/2024 8:44 AM [facility] LAB RDW 12.8 11.0 - 15.0 % LAB HEMETOLOGY METHOD 11/10/2024 8:44 AM [facility] LAB Platelets 337 130 - 400 K/mcL LAB HEMETOLOGY METHOD 11/10/2024 8:44 AM [facility] LAB MPV 9.8 7.0 - 11.0 FL LAB HEMETOLOGY METHOD 11/10/2024 8:44 AM [facility] LAB NRBC 0.0 <1.0 % LAB HEMETOLOGY METHOD 11/10/2024 8:44 AM [facility] LAB NRBC Absolute 0.00 <0.10 K/mcL LAB HEMETOLOGY METHOD 11/10/2024 8:44 AM [facility] LAB Neutrophils Relative 72.1 % LAB HEMETOLOGY METHOD 11/10/2024 8:44 AM [facility] LAB Lymphocytes Relative 14.8 % LAB HEMETOLOGY METHOD 11/10/2024 8:44 AM [facility] LAB Monocytes Relative 9.9 % LAB HEMETOLOGY METHOD 11/10/2024 8:44 AM EST [facility] Eosinophils Relative 1.5 % LAB HEMETOLOGY METHOD 11/10/2024 8:44 AM [facility] LAB Basophils Relative 1.2 % LAB HEMETOLOGY METHOD 11/10/2024 8:44 AM [facility] LAB Immature Granulocytes Relative 0.5 % LAB HEMETOLOGY METHOD 11/10/2024 8:44 AM EST [facility] LAB Neutrophils Absolute 4.29 1.50 - 7.00 K/mcL LAB HEMETOLOGY METHOD 11/10/2024 8:44 AM [facility] LAB Lymphocytes Absolute 0.88(L) 1.00 - 5.00 K/mcL LAB HEMETOLOGY METHOD 11/10/2024 8:44 AM [facility] LAB Monocytes Absolute 0.59 0.20 - 1.00 K/mcL LAB HEMETOLOGY METHOD 11/10/2024 8:44 AM [facility] LAB Eosinophils Absolute 0.09 0.00 - 0.50 K/mcL LAB HEMETOLOGY METHOD 11/10/2024 8:44 AM [facility] LAB Basophils Absolute 0.07 0.00 - 0.20 K/mcL LAB HEMETOLOGY METHOD 11/10/2024 8:44 AM [facility] LAB Immature Granulocytes Absolute 0.03 0.00 - 0.03 K/mcL LAB HEMETOLOGY METHOD 11/10/2024 8:44 AM [facility] LAB Blood Venous blood specimen / Unknown Venipuncture / Unknown 11/10/2024 6:06 AM EST 11/10/2024 8:03 AM EST us Gloria Preston MD LAB BLOOD ORDERABLES Final Resu lt [facility] [address] [place] [address], [place] [phone] * Magnesium (11/10/2024 6:06 AM EST) Pathologist [facility] Magnesium 2.0 1.9 - 2.6 mg/dL LAB CHEMISTRY METHOD 11/10/2024 9:04 AM [facility] LAB Blood Venous blood specimen / Unknown Venipuncture / Unknown 11/10/2024 6:06 AM EST 11/10/2024 8:03 AM EST us Gloria Preston MD LAB BLOOD ORDERABLES Final Resu lt [facility] [address] [place] [address], [place] [phone] * (ABNORMAL) Basic metabolic panel (11/10/2024 6:06 AM EST) Pathologist [facility] Sodium 136 133 - 145 mmol/L LAB CHEMISTRY METHOD 11/10/2024 9:04 AM [facility] LAB Potassium 4.3 3.5 - 5.5 mmol/L LAB CHEMISTRY METHOD 11/10/2024 9:04 AM [facility] LAB Chloride 103 96 - 110 mmol/L LAB CHEMISTRY METHOD 11/10/2024 9:04 AM [facility] LAB CO2 25 21 - 32 mmol/L LAB CHEMISTRY METHOD 11/10/2024 9:04 AM [facility] LAB Anion Gap 8 3 - 11 LAB CHEMISTRY METHOD 11/10/2024 9:04 AM [facility] LAB Glucose 94 70 - 100 mg/dL LAB CHEMISTRY METHOD 11/10/2024 9:04 AM [facility] BUN 22 5 - 25 mg/dL LAB CHEMISTRY METHOD 11/10/2024 9:04 AM [facility] LAB Creatinine 0.54(L) 0.70 - 1.30 mg/dL LAB CHEMISTRY METHOD 11/10/2024 9:04 AM EST [facility] LAB eGFR 98 >=60 mL/min/1. 73m2 LAB CHEMISTRY METHOD 11/10/2024 9:04 AM [facility] LAB Comment:Calculation based on the??Chronic Kidney Disease Epidemiology Collaboration (CKD-EPI) equation refit??without adjustment for race. BUN/Creatinine Ratio 40.7 LAB CHEMISTRY METHOD 11/10/2024 9:04 AM [facility] LAB Calcium 9.1 8.5 - 10.5 mg/dL LAB CHEMISTRY METHOD 11/10/2024 9:04 AM [facility] LAB Blood Venous blood specimen / Unknown Venipuncture / Unknown 11/10/2024 6:06 AM EST 11/10/2024 8:03 AM EST us Gloria Preston MD LAB BLOOD ORDERABLES Final Resu lt [facility] [address] [place] [address], documented in this encounter Visit Diagnoses Diagnosis Encounter for other general examination documented in this encounter Care Teams Calculator Operator Relationship Specialty Start Date End Date Gloria Preston MD [address] [place] [address] PCP - General Hospitalist Medicine 11/05/24 documented as of this encounter
--- OUTSIDE RECORDS SUMMARY | 2024-12-16 10:36 | XMS_ITS | Encounter Summary ---
Author Organization [facility] Address [address] [place] [address] Care Team Providers Care Solar Water Heater Installer Name Role Phone Gloria Preston MD Primary Care Provider [phone] Encounter Details Date Type Department Care Team (Late st Contact Info) Description 11/07/2024 Lab Requisition [facility] - Main Lab [address] [place] [address] Gloria Preston MD [address] [place] [address] Encounter for other general examination Social History [...] Procedure Name Priority Date/Time Associated Diagnosis Comments COMPREHENSIVE METABOLIC PANEL Routine 11/07/2024 5:23 AM EST Encounter for other general examination documented in this encounter Results * (ABNORMAL) Comprehensive metabolic panel (11/07/2024 5:23 AM EST) Sodium 134 133 - 145 mmol/L LAB CHEMISTRY METHOD 11/07/2024 1:06 PM EST [facility] Potassium 3.9 3.5 - 5.5 mmol/L LAB CHEMISTRY METHOD 11/07/2024 1:06 PM EST [facility] Chloride 99 96 - 110 mmol/L LAB CHEMISTRY METHOD 11/07/2024 1:06 PM [facility] LAB CO2 22 21 - 32 mmol/L LAB CHEMISTRY METHOD 11/07/2024 1:06 PM [facility] LAB Anion Gap 13(H) 3 - 11 LAB CHEMISTRY METHOD 11/07/2024 1:06 PM [facility] LAB Glucose 78 70 - 100 mg/dL LAB CHEMISTRY METHOD 11/07/2024 1:06 PM [facility] BUN 20 5 - 25 mg/dL LAB CHEMISTRY METHOD 11/07/2024 1:06 PM [facility] Creatinine 0.55(L) 0.70 - 1.30 mg/dL LAB CHEMISTRY METHOD 11/07/2024 1:06 PM [facility] LAB eGFR 98 >=60 mL/min/1. 73m2 LAB CHEMISTRY METHOD 11/07/2024 1:06 PM [facility] LAB Comment:Calculation based on the??Chronic Kidney Disease Epidemiology Collaboration (CKD-EPI) equation refit??without adjustment for race. BUN/Creatinine Ratio 36.4 LAB CHEMISTRY METHOD 11/07/2024 1:06 PM [facility] Calcium 8.6 8.5 - 10.5 mg/dL LAB CHEMISTRY METHOD 11/07/2024 1:06 PM [facility] AST (SGOT) 44(H) 10 - 42 unit/L LAB CHEMISTRY METHOD 11/07/2024 1:06 PM [facility] Comment:Results verified by repeat testing ALT (SGPT) 41 10 - 60 unit/L LAB CHEMISTRY METHOD 11/07/2024 1:06 PM [facility] LAB Comment:Results verified by repeat testing Alkaline Phosphatase 100 42 - 121 unit/L LAB CHEMISTRY METHOD 11/07/2024 1:06 PM [facility] Total Protein 6.4 6.0 - 8.0 g/dL LAB CHEMISTRY METHOD 11/07/2024 1:06 PM EST [facility] Albumin 2.7(L) 3.2 - 5.0 g/dL LAB CHEMISTRY METHOD 11/07/2024 1:06 PM EST [facility] ([facility]) [facility] Total Bilirubin 1.1 0.0 - 1.4 mg/dL LAB CHEMISTRY METHOD 11/07/2024 1:06 PM EST [facility] Blood Venous blood specimen / Unknown Venipuncture / Unknown 11/07/2024 5:23 AM EST 11/07/2024 10:38 AM EST us Gloria Preston MD LAB BLOOD ORDERABLES Final Resu lt [facility] ([facility]) [facility] [address] [place] [address], documented in this encounter Visit Diagnoses Diagnosis Encounter for other general examination documented in this encounter Care Teams Solar Water Heater Installer Relationship Specialty Start Date End Date Gloria Preston MD [address] [place] [id number] PCP - General Hospitalist Medicine 11/05/24 documented as of this encounter
--- OUTSIDE RECORDS SUMMARY | 2024-12-16 10:36 | XMS_ITS ---
Author Organization [facility] Address [address] [place] [address] Care Team Providers Care Security Compliance Specialist Name Role Phone Robbie Kothari MD Primary Care Provider UnavailAna Damon Unavailable [phone] Allergies Allergen (clinical drug ingredient) Drug/Non Drug [...] 06/28/2024 Encounters Encounter Location Date Provider Diagnosis [facility] [address] [place] [address] 06/28/2024 Ana Hernandez Tinea unguium B35.1 ; [...] Reason: Provider Name:Ana garduno, 12/27/2024 09:00:00 AM, [address] [place] [address], [phone], Procedure Notes * Category Sub-Category Detail Notes [...] as necessary. Patient chooses, no pharmaceutical tx (01543) Progress Notes * Freeman ROCHADOB: 0 (84 yo M)Acc No.[id number]:06/28/2024 Progress Note Patient:?Freeman Rocha Provider:?Ana Hernandez DPM :1940???Age:84 Y???Sex:Male Lokesh e:06/28/2024 [id number] Pcp:Robbie Kothari MD Subjective: * Chief Complaints: [...] yes, walking. ?Marital status: . ?Occupation: Retired- [employer]. * Medications:?TakingAtorvasta tin Calcium 10 MG Tablet [...] as necessary. Patient chooses, no pharmaceutical tx (81979).? * Procedure Codes:?39918 DEBRI DE NAIL, 6 OR MORE, Modifiers: XS * Follow Up:?3 Months * Images: * Sign off status: Completed true * Provider:?Ana Hernandez, DPAntonio Date:? Generated for Chip andres/Awais/eTransmitting on:?12/16/2024 10:36 AM EDT History and Physical [...]
--- OUTSIDE RECORDS SUMMARY | 2024-12-16 10:36 | XMS_ITS | Patient Health Record ---
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 ; Pain in right toe(s) M79.674 ; Pain in left toe(s) M79.675 and Xerosis of skin L85.[address] [address] 03/29/2024 Ana Perica Tinea unguium B35.1 ; Pain in right toe(s) M79.674 and Pain in left toe(s) M79.[address] [address] 06/28/2024 Ana Perica Tinea unguium B35.1 ; Pain in right toe(s) M79.674 and Pain in left toe(s) M79.[address] [address] 09/27/2024 Ana Perica Tinea unguium B35.1 ; [...] Provider Name:Ana garduno, 12/27/2024 09:00:00 AM, [address] [place], [address], Insurance Providers Payer Name Payer Address Payer Phone Subscriber Number Group Number Insured Name Patient Relationship to Insured Coverage Start Date Coverage End Date [facility] Medicare-[id number] [address] [place] [address] [id number] Freeman King Self - patient is the insured Medical (General) History Medical History History ICD Code Measles Mumps Chicken pox Surgical History Surgery Date(Month/Year) hernia colonoscopy
--- OUTSIDE RECORDS SUMMARY | 2024-12-16 10:36 | XMS_ITS | Clinical Summary ---
Author Organization [address] [facility] Address [address] [place] [address] Phone Care Team Providers Care Manager Business Management Name Role Phone Gloria Preston MD Primary Care Provider Encounters Date Type Department Care Team Description 11/18/2024 Lab Requisition [facility] [address] [place] [address] Gloria Preston MD Encounter for other general examination 11/16/2024 Lab Requisition [facility] [address] [place] [address] Gloria Preston MD Encounter for other general examination 11/14/2024 Lab Requisition [facility] [address] [place] [address] Gloria Preston MD Encounter for other general examination 11/10/2024 Lab Requisition [facility] [address] [place] [address] Gloria Preston MD Encounter for other general examination 11/07/2024 Lab Requisition [facility] [address] [place] [address] Gloria Preston MD Encounter for other general examination 11/05/2024 Lab Requisition [facility] [address] [place] [address] Gloria Preston MD Encounter for other general examination from Last 3 Months Surgical History Surgery Date Site/Laterality Comments HERNIA REPAIR PROCEDURE: HISTORICAL HERNIA REPAIR/ING; COMMENT: left Medical History Medical History Date Comments Hyperlipemia DX:Hyperlipemia Hernia, inguinal DX:Hernia, ingu inal Family History Relation Name Status Comments Father Mother Social History Tobacco Use Types Packs/Day Years [...] on file Sexual Orientation Not on file Obstetrics History Plan of Treatment Health Maintenance Due Date Last Done Comments DTaP,Tdap,and Td Vaccines (1 - Tdap) 02/20/1959 Pneumococcal Vaccine: 50+ Ye ars (1 of 2 - PCV) 02/20/1959 Zoster Vaccines (1 of 2) 02/20/1959 RSV Immunization Adult Patie nts (1 - 1-dose 75+ series) 02/20/2015 COVID-19 Vaccine (2 - Pfizer risk series) 11/26/2020 11/05/2020 Cholesterol Screening (Lipid Panel) 11/05/2024 Depression Screening 11/05/2024 Falls Risk Assessment 11/05/2024 Medicare Annual Wellness Visit 11/05/2024 Social Influencers of Health Screening 11/05/2024 Influenza Vaccine (Season Ended) 2025 HIB Vaccines Aged Out No longer eligi ble based on patient's age to complete this topic HPV Vaccines Aged Out No longer eligi ble based on patient's age to complete this topic Hepatitis A Vaccines Aged Out No long er eligible based on patient's age to complete this topic Hepatitis B Vaccines Aged Out No long er eligible based on patient's age to complete this topic IPV Vaccines Aged Out No longer eligi ble based on patient's age to complete this topic MMR Vaccines Aged Out No longer eligi ble based on patient's age to complete this topic Meningococcal ACWY Vaccine Aged Out N o longer eligible based on patient's age to complete this topic Meningococcal B Vacine Aged Out No lo nger eligible based on patient's age to complete this topic RSV Immunization Patients Un julian 20 months Aged Out No longer eligible b ased on patient's age to complete this topic Varicella Vaccines Aged Out No longer eligible based on patient's age to complete this topic Procedures Procedure Name Priority Date/Time Associated Diagnosis [...] EST Encounter for other general examination CBC WITH AUTO DIFFERENTIAL Routine 11/16/2024 5:44 AM EST Encounter for other general examination CBC AND DIFFERENTIAL Routine 11/16/2024 5:44 AM EST Encounter for other general examination BASIC METABOLIC PANEL Routine 11/16/2024 5:44 AM EST Encounter for other general examination CBC WITH AUTO DIFFERENTIAL Routine 11/14/2024 6:36 [...] EST Encounter for other general examination CBC WITH AUTO DIFFERENTIAL Routine 11/10/2024 6:06 AM EST Encounter for other general examination MAGNESIUM Routine 11/10/2024 6:06 AM EST Encounter for other general examination CBC AND DIFFERENTIAL Routine 11/10/2024 6:06 AM EST Encounter for other general examination BASIC METABOLIC PANEL Routine 11/10/2024 6:06 AM EST Encounter for other general examination COMPREHENSIVE METABOLIC PANEL Routine 11/07/2024 5:23 AM EST Encounter for other general examination CBC WITH AUTO DIFFERENTIAL Routine 11/05/2024 5:51 AM EST Encounter for other general examination MAGNESIUM Routine 11/05/2024 5:51 AM EST Encounter for other general examination CBC AND DIFFERENTIAL Routine 11/05/2024 5:51 AM EST Encounter for other general examination COMPREHENSIVE METABOLIC PANEL Routine 11/05/2024 5:51 AM EST Encounter for other general examination from Last 3 Months Results * (ABNORMAL) CBC auto differential (11/18/2024 2:59 PM EST) Only the most recent of5 resultswithin the time period is included. WBC 3.8(L) 4.8 - 10.8 K/mcL LAB HEMETOLOGY METHOD 11/18/2024 4:02 PM [facility] RBC 3.90(L) 4.50 - 5.50 M/mcL LAB HEMETOLOGY METHOD 11/18/2024 4:02 PM [facility] Hemoglobin 12.8(L) 13.5 - 17.5 g/dL LAB HEMETOLOGY METHOD 11/18/2024 4:02 PM [facility] Hematocrit 37.1(L) 42.0 - 54.0 % LAB HEMETOLOGY METHOD 11/18/2024 4:02 PM [facility] MCV 94.2 79.0 - 98.0 FL LAB HEMETOLOGY METHOD 11/18/2024 4:02 PM [facility] MCH 32.5(H) 27.0 - 32.0 pcg LAB HEMETOLOGY METHOD 11/18/2024 4:02 PM [facility] MCHC 34.5 32.0 - 37.0 g/dL LAB HEMETOLOGY METHOD 11/18/2024 4:02 PM [facility] RDW 12.7 11.0 - 15.0 % LAB HEMETOLOGY METHOD 11/18/2024 4:02 PM [facility] Platelets 269 130 - 400 K/mcL LAB HEMETOLOGY METHOD 11/18/2024 4:02 PM [facility] MPV 9.8 7.0 - 11.0 FL LAB HEMETOLOGY METHOD 11/18/2024 4:02 PM [facility] NRBC 0.0 <1.0 % LAB HEMETOLOGY METHOD 11/18/2024 4:02 PM [facility] NRBC Absolute 0.00 <0.10 K/mcL LAB HEMETOLOGY METHOD 11/18/2024 4:02 PM [facility] Neutrophils Relative 70.4 % LAB HEMETOLOGY METHOD 11/18/2024 4:02 PM [facility] Lymphocytes Relative 16.0 % LAB HEMETOLOGY METHOD 11/18/2024 4:02 PM [facility] Monocytes Relative 12.8 % LAB HEMETOLOGY METHOD 11/18/2024 4:02 PM [facility] Eosinophils Relative 0.0 % LAB HEMETOLOGY METHOD 11/18/2024 4:02 PM [facility] Basophils Relative 0.5 % LAB HEMETOLOGY METHOD 11/18/2024 4:02 PM [facility] Immature Granulocytes Relative 0.3 % LAB HEMETOLOGY METHOD 11/18/2024 4:02 PM [facility] Neutrophils Absolute 2.64 1.50 - 7.00 K/mcL LAB HEMETOLOGY METHOD 11/18/2024 4:02 PM [facility] Lymphocytes Absolute 0.60(L) 1.00 - 5.00 K/mcL LAB HEMETOLOGY METHOD 11/18/2024 4:02 PM EST [facility] Monocytes Absolute 0.48 0.20 - 1.00 K/[facility] LAB HEMETOLOGY METHOD 11/18/2024 4:02 PM [facility] Eosinophils Absolute 0.00 0.00 - 0.50 K/[facility] LAB HEMETOLOGY METHOD 11/18/2024 4:02 PM EST [facility] Basophils Absolute 0.02 0.00 - 0.20 K/[facility] LAB HEMETOLOGY METHOD 11/18/2024 4:02 PM EST [facility] Immature Granulocytes Absolute 0.01 0.00 - 0.03 K/[facility] LAB HEMETOLOGY METHOD 11/18/2024 4:02 PM [facility] Blood Venous blood specimen / Unknown Venipuncture / Unknown 11/18/2024 2:59 PM EST 11/18/2024 3:36 PM EST Gloria Preston MD LAB BLOOD ORDERABLES Final Resu lt [facility] [address] [place] [address], [place] [phone] * Prolactin (11/18/2024 2:59 PM EST) Prolactin 12.10 2.50 - 17.40 ng/mL LAB CHEMISTRY METHOD 11/18/2024 7:21 PM EST [facility] Blood Venous blood specimen / Unknown Venipuncture / Unknown 11/18/2024 2:59 PM EST 11/18/2024 3:36 PM EST us Gloria Preston MD LAB BLOOD ORDERABLES Final Resu lt [facility] [address] [place] [address], [place] [phone] * (ABNORMAL) Magnesium (11/18/2024 2:59 PM EST) Only the most recent of3 resultswithin the time period is included. [facility] Magnesium 1.6(L) 1.9 - 2.6 mg/dL LAB CHEMISTRY METHOD 11/18/2024 7:07 PM [facility] Blood Venous blood specimen / Unknown Venipuncture / Unknown 11/18/2024 2:59 PM EST 11/18/2024 3:36 PM EST us Gloria Preston MD LAB BLOOD ORDERABLES Final Resu lt [facility] [address] [place] [address], [place] [phone] * (ABNORMAL) Comprehensive metabolic panel (11/18/2024 2:59 PM EST) Only the most recent of3 resultswithin the time period is included. [facility] Sodium 134 133 - 145 mmol/L LAB CHEMISTRY METHOD 11/18/2024 7:21 PM [facility] Potassium 3.9 3.5 - 5.5 mmol/L LAB CHEMISTRY METHOD 11/18/2024 7:21 PM [facility] Chloride 98 96 - 110 mmol/L LAB CHEMISTRY METHOD 11/18/2024 7:21 PM [facility] CO2 27 21 - 32 mmol/L LAB CHEMISTRY METHOD 11/18/2024 7:21 PM [facility] Anion Gap 9 3 - 11 LAB CHEMISTRY METHOD 11/18/2024 7:21 PM [facility] Glucose 96 70 - 100 mg/dL LAB CHEMISTRY METHOD 11/18/2024 7:21 PM [facility] BUN 16 5 - 25 mg/dL LAB CHEMISTRY METHOD 11/18/2024 7:21 PM [facility] Creatinine 0.68(L) 0.70 - 1.30 mg/dL LAB CHEMISTRY METHOD 11/18/2024 7:21 PM [facility] eGFR 92 >=60 mL/min/1. 73m2 LAB CHEMISTRY METHOD 11/18/2024 7:21 PM [facility] Comment:Calculation based on the??Chronic Kidney Disease Epidemiology Collaboration (CKD-EPI) equation refit??without adjustment for race. BUN/Creatinine Ratio 23.5 LAB CHEMISTRY METHOD 11/18/2024 7:21 PM [facility] Calcium 8.8 8.5 - 10.5 mg/dL LAB CHEMISTRY METHOD 11/18/2024 7:21 PM [facility] AST (SGOT) 25 10 - 42 unit/L LAB CHEMISTRY METHOD 11/18/2024 7:21 PM [facility] ALT (SGPT) 22 10 - 60 unit/L LAB CHEMISTRY METHOD 11/18/2024 7:21 PM [facility] Alkaline Phosphatase 89 42 - 121 unit/L LAB CHEMISTRY METHOD 11/18/2024 7:21 PM [facility] Total Protein 6.5 6.0 - 8.0 g/dL LAB CHEMISTRY METHOD 11/18/2024 7:21 PM [facility] Albumin 2.8(L) 3.2 - 5.0 g/dL LAB CHEMISTRY METHOD 11/18/2024 7:21 PM [facility] Total Bilirubin 0.3 0.0 - 1.4 mg/dL LAB CHEMISTRY METHOD 11/18/2024 7:21 PM [facility] Blood Venous blood specimen / Unknown Venipuncture / Unknown 11/18/2024 2:59 PM EST 11/18/2024 3:36 PM EST us Gloria Preston MD LAB BLOOD ORDERABLES Final Resu lt [facility] [address] [place] [address], [place] [phone] * (ABNORMAL) Basic metabolic panel (11/16/2024 5:44 AM EST) Only the most recent of3 resultswithin the time period is included. Sodium 135 133 - 145 mmol/L LAB CHEMISTRY METHOD 11/16/2024 2:30 PM [facility] Potassium 4.1 3.5 - 5.5 mmol/L LAB CHEMISTRY METHOD 11/16/2024 2:30 PM [facility] Chloride 99 96 - 110 mmol/L LAB CHEMISTRY METHOD 11/16/2024 2:30 PM [facility] CO2 25 21 - 32 mmol/L LAB CHEMISTRY METHOD 11/16/2024 2:30 PM [facility] Anion Gap 11 3 - 11 LAB CHEMISTRY METHOD 11/16/2024 2:30 PM [facility] Glucose 79 70 - 100 mg/dL LAB CHEMISTRY METHOD 11/16/2024 2:30 PM [facility] BUN 18 5 - 25 mg/dL LAB CHEMISTRY METHOD 11/16/2024 2:30 PM [facility] Creatinine 0.64(L) 0.70 - 1.30 mg/dL LAB CHEMISTRY METHOD 11/16/2024 2:30 PM [facility] eGFR 93 >=60 mL/min/1. 73m2 LAB CHEMISTRY METHOD 11/16/2024 2:30 PM [facility] Comment:Calculation based on the??Chronic Kidney Disease Epidemiology Collaboration (CKD-EPI) equation refit??without adjustment for race. BUN/Creatinine Ratio 28.1 LAB CHEMISTRY METHOD 11/16/2024 2:30 PM [facility] Calcium 8.9 8.5 - 10.5 mg/dL LAB CHEMISTRY METHOD 11/16/2024 2:30 PM [facility] Blood Venous blood specimen / Unknown Venipuncture / Unknown 11/16/2024 5:44 AM EST 11/16/2024 10:20 AM EST us Gloria Preston MD LAB BLOOD ORDERABLES Final Resu lt Performing Organization Address [facility] Co de Phone Number [facility] [address] [place] [address], [place] [phone] * Thyroid stimulating hormone (11/10/2024 6:06 AM EST) Pathologist [facility] TSH 1.57 0.40 - 4.00 mcIU/mL LAB CHEMISTRY METHOD 11/10/2024 9:51 PM EST [facility] Blood Venous blood specimen / Unknown Venipuncture / Unknown 11/10/2024 6:06 AM EST 11/10/2024 8:03 AM EST us Gloria Preston MD LAB BLOOD ORDERABLES Final Resu lt Performing Organization Address [facility] de Phone Number [facility] [address] [place] [address], [place] [phone] * Vitamin B12 (11/10/2024 6:06 AM EST) [facility] Vitamin B-12 413 250 - 900 pcg/mL LAB CHEMISTRY METHOD 11/10/2024 9:28 PM EST [facility] Blood Venous blood specimen / Unknown Venipuncture / Unknown 11/10/2024 6:06 AM EST 11/10/2024 8:03 AM EST us Gloria Preston MD LAB BLOOD ORDERABLES Final Resu lt Performing Organization Address [facility] Co de Phone Number [facility] [address] [place] [address], [place] [phone] from Last 3 Months Insurance [employer] Care Teams Manager Business Management Relationship Specialty Start Date End Date Gloria Preston MD [address] [place] [id number] PCP - General Hospitalist Medicine 11/05/24
== END 2024-12-16 10:12 | disposition home or self-care (01) ==
LOC: HO.HPS 09:37
PROVIDERS: PCP Internal Medicine Medical Oncology; Visit Provider Hospitalist
DX: J47.9 Bronchiectasis, uncomplicated (principal); R91.8 Other nonspecific abnormal finding of lung field; A31.9 Mycobacterial infection, unspecified; J41.0 Simple chronic bronchitis
CPT/HCPCS: 99214; G2211

== ENCOUNTER 2024-12-16 09:36 | Outpatient (REF) | payer MEDICARE, SELFPAY ==
--- NOTE | ~2024-12-16 | XR_ITS ---
EXAMINATION: XR CHEST CLINICAL INFORMATION: J47.9 - Bronchiectasis, uncomplicated COMPARISON: December 02, 2024. TECHNIQUE: 2 views of the chest were obtained. FINDINGS: Pulmonary reticular nodular pattern. Hyperinflated lungs. No gross pleural effusion or pneumothorax. Cardiomediastinal silhouette size is normal. Calcified plaque thoracic aorta. Multilevel thoracic spondylosis. Degenerative changes in the acromioclavicular joints. 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 Overall improved aeration. Electronically signed by: Lázaro Ely MD 12/16/2024 11:38 AM EDT
[2024-12-16 10:47] LABS: MANUAL DIFF FLAG NO
[2024-12-16 11:32] LABS: Basophils Percent Auto 0.8 % (0-2); Eosinophils Absolute Auto 0.1 X10*3/uL (0.0-0.4); Eosinophils Percent Auto 2.1 % (0-4); Hematocrit 40.5 % (42.0-52.0); Hemoglobin 13.9 g/dl (14.0-18.0); Imm Gran Abs Auto 0.02 X10*3/uL (0.00-0.03); Imm Gran Pct Auto 0.4 % (0.0-0.4); Lymphocytes Absolute Auto 0.9 X10*3/uL (1.2-4.9); Lymphocytes Percent Auto 17.8 % (20-40); Mean Corpuscular HGB Conc 34.3 g/dl (31.0-36.0); Mean Corpuscular Hemoglobin 31.3 pg (27.0-33.0); Mean Corpuscular Volume 91.2 fL (80.0-98.0); Mean Platelet Volume 9.5 fL (9.4-12.4); Monocytes Absolute Auto 0.7 X10*3/uL (0.1-1.2); Monocytes Percent Auto 12.5 % (2-11); Neutrophils Absolute Auto 3.4 x10*3/uL (2.0-8.3); Neutrophils Percent Auto 66.4 % (45-73); Platelet Count 263 X10*3/uL (160-400); Red Blood Count 4.44 X10*6/uL (4.60-5.80); Red Cell Distribution Width 13.3 % (11.0-16.0); White Blood Count 5.2 X10*3/uL (4.8-10.8)
--- OUTSIDE RECORDS SUMMARY | 2024-12-16 11:47 | XMS_ITS | Encounter Summary ---
Author Organization [facility] Address [address] [place] [address] Care Team Providers Care Carry In Worker Name Role Phone Gloria Preston MD Primary Care Provider [phone] Encounter Details Date Type Department Care Team (Late st Contact Info) Description 11/05/2024 Lab Requisition [facility] [address] [facility] [place] [address] Gloria Preston MD [address] [place] [phone] Encounter for other general examination Social History [...] CBC auto differential (11/05/2024 5:51 AM EST) [facility] WBC 8.0 4.8 - 10.8 K/mcL LAB HEMETOLOGY METHOD 11/05/2024 11:21 AM [facility] RBC 4.20(L) 4.50 - 5.50 M/mcL LAB HEMETOLOGY METHOD 11/05/2024 11:21 AM [facility] Hemoglobin 13.8 13.5 - 17.5 g/dL LAB HEMETOLOGY METHOD 11/05/2024 11:21 AM [facility] Hematocrit 39.6(L) 42.0 - 54.0 % LAB HEMETOLOGY METHOD 11/05/2024 11:21 AM [facility] MCV 94.7 79.0 - 98.0 FL LAB HEMETOLOGY METHOD 11/05/2024 11:21 AM [facility] MCH 33.0(H) 27.0 - 32.0 pcg LAB HEMETOLOGY METHOD 11/05/2024 11:21 AM [facility] MCHC 34.8 32.0 - 37.0 g/dL LAB HEMETOLOGY METHOD 11/05/2024 11:21 AM [facility] RDW 12.7 11.0 - 15.0 % LAB HEMETOLOGY METHOD 11/05/2024 11:21 AM [facility] Platelets 261 130 - 400 K/mcL LAB HEMETOLOGY METHOD 11/05/2024 11:21 AM [facility] MPV 10.4 7.0 - 11.0 FL LAB HEMETOLOGY METHOD 11/05/2024 11:21 AM [facility] NRBC 0.0 <1.0 % LAB HEMETOLOGY METHOD 11/05/2024 11:21 AM [facility] NRBC Absolute 0.00 <0.10 K/mcL LAB HEMETOLOGY METHOD 11/05/2024 11:21 AM [facility] Neutrophils Relative 73.3 % LAB HEMETOLOGY METHOD 11/05/2024 11:21 AM [facility] Lymphocytes Relative 10.6 % LAB HEMETOLOGY METHOD 11/05/2024 11:21 AM [facility] Monocytes Relative 14.7 % LAB HEMETOLOGY METHOD 11/05/2024 11:21 AM [facility] Eosinophils Relative 0.4 % LAB HEMETOLOGY METHOD 11/05/2024 11:21 AM [facility] Basophils Relative 0.6 % LAB HEMETOLOGY METHOD 11/05/2024 11:21 AM [facility] Immature Granulocytes Relative 0.4 % LAB HEMETOLOGY METHOD 11/05/2024 11:21 AM [facility] Neutrophils Absolute 5.87 1.50 - 7.00 K/mcL LAB HEMETOLOGY METHOD 11/05/2024 11:21 AM [facility] Lymphocytes Absolute 0.85(L) 1.00 - 5.00 K/mcL LAB HEMETOLOGY METHOD 11/05/2024 11:21 AM [facility] Monocytes Absolute 1.18(H) 0.20 - 1.00 K/mcL LAB HEMETOLOGY METHOD 11/05/2024 11:21 AM [facility] Eosinophils Absolute 0.03 0.00 - 0.50 K/mcL LAB HEMETOLOGY METHOD 11/05/2024 11:21 AM [facility] Basophils Absolute 0.05 0.00 - 0.20 K/mcL LAB HEMETOLOGY METHOD 11/05/2024 11:21 AM [facility] Immature Granulocytes Absolute 0.03 0.00 - 0.03 K/mcL LAB HEMETOLOGY METHOD 11/05/2024 11:21 AM [facility] Blood Venous blood specimen / Unknown Venipuncture / Unknown 11/05/2024 5:51 AM EST 11/05/2024 9:43 AM EST us Gloria Preston MD LAB BLOOD ORDERABLES Final Resu lt [facility] [address] [place] [address], [place] [phone] * Magnesium (11/05/2024 5:51 AM EST) [facility] Magnesium 2.0 1.9 - 2.6 mg/dL LAB CHEMISTRY METHOD 11/05/2024 11:42 AM EST [facility] Blood Venous blood specimen / Unknown Venipuncture / Unknown 11/05/2024 5:51 AM EST 11/05/2024 9:43 AM EST us Gloria Preston MD LAB BLOOD ORDERABLES Final Resu lt Performing Organization Address City/[facility]/ZIP Co de Phone Number [facility] [address] [place] [address], [place] [phone] * (ABNORMAL) Comprehensive metabolic panel (11/05/2024 5:51 AM EST) [facility] Sodium 133 133 - 145 mmol/L LAB CHEMISTRY METHOD 11/05/2024 11:44 AM [facility] Potassium 4.1 3.5 - 5.5 mmol/L LAB CHEMISTRY METHOD 11/05/2024 11:44 AM [facility] Chloride 99 96 - 110 mmol/L LAB CHEMISTRY METHOD 11/05/2024 11:44 AM [facility] CO2 24 21 - 32 mmol/L LAB CHEMISTRY METHOD 11/05/2024 11:44 AM [facility] Anion Gap 10 3 - 11 LAB CHEMISTRY METHOD 11/05/2024 11:44 AM [facility] Glucose 92 70 - 100 mg/dL LAB CHEMISTRY METHOD 11/05/2024 11:44 AM [facility] BUN 18 5 - 25 mg/dL LAB CHEMISTRY METHOD 11/05/2024 11:44 AM [facility] Creatinine 0.54(L) 0.70 - 1.30 mg/dL LAB CHEMISTRY METHOD 11/05/2024 11:44 AM [facility] eGFR 98 >=60 mL/min/1. 73m2 LAB CHEMISTRY METHOD 11/05/2024 11:44 AM [facility] Comment:Calculation based on the??Chronic Kidney Disease Epidemiology Collaboration (CKD-EPI) equation refit??without adjustment for race. BUN/Creatinine Ratio 33.3 LAB CHEMISTRY METHOD 11/05/2024 11:44 AM [facility] Calcium 9.0 8.5 - 10.5 mg/dL LAB CHEMISTRY METHOD 11/05/2024 11:44 AM [facility] AST (SGOT) 17 10 - 42 unit/L LAB CHEMISTRY METHOD 11/05/2024 11:44 AM [facility] ALT (SGPT) 19 10 - 60 unit/L LAB CHEMISTRY METHOD 11/05/2024 11:44 AM [facility] Alkaline Phosphatase 83 42 - 121 unit/L LAB CHEMISTRY METHOD 11/05/2024 11:44 AM [facility] Total Protein 6.6 6.0 - 8.0 g/dL LAB CHEMISTRY METHOD 11/05/2024 11:44 AM [facility] Albumin 2.8(L) 3.2 - 5.0 g/dL LAB CHEMISTRY METHOD 11/05/2024 11:44 AM [facility] Total Bilirubin 1.1 0.0 - 1.4 mg/dL LAB CHEMISTRY METHOD 11/05/2024 11:44 AM [facility] Blood Venous blood specimen / Unknown Venipuncture / Unknown 11/05/2024 5:51 AM EST 11/05/2024 9:43 AM EST us Gloria Preston MD LAB BLOOD ORDERABLES Final Resu lt [facility] [address] [place] [address], documented in this encounter Visit Diagnoses Diagnosis Encounter for other general examination documented in this encounter Care Teams Carry In Worker Relationship Specialty Start Date End Date Gloria Preston MD [address] [place] [phone] PCP - General Hospitalist Medicine 11/05/24 documented as of this encounter
--- OUTSIDE RECORDS SUMMARY | 2024-12-16 11:47 | XMS_ITS | Encounter Summary ---
Author Organization [facility] Address [address] [place] [address] Care Team Providers Care Tree Pruner Name Role Phone Gloria Preston MD Primary Care Provider [phone] Encounter Details Date Type Department Care Team (Late st Contact Info) Description 11/16/2024 Lab Requisition [facility] - Main Lab [address] [facility] [place] [address] Gloria Preston MD [address] [place] [phone] Encounter for other general examination Social History [...] AM EST) WBC 3.8(L) 4.8 - 10.8 K/[facility] LAB HEMETOLOGY METHOD 11/16/2024 11:05 AM [facility] LAB RBC 3.90(L) 4.50 - 5.50 M/mcL LAB HEMETOLOGY METHOD 11/16/2024 11:05 AM [facility] LAB Hemoglobin 12.5(L) 13.5 - 17.5 g/dL LAB HEMETOLOGY METHOD 11/16/2024 11:05 AM [facility] LAB Hematocrit 36.5(L) 42.0 - 54.0 % LAB HEMETOLOGY METHOD 11/16/2024 11:05 AM [facility] LAB MCV 94.8 79.0 - 98.0 FL LAB HEMETOLOGY METHOD 11/16/2024 11:05 AM [facility] LAB MCH 32.5(H) 27.0 - 32.0 pcg LAB HEMETOLOGY METHOD 11/16/2024 11:05 AM [facility] LAB MCHC 34.2 32.0 - 37.0 g/dL LAB HEMETOLOGY METHOD 11/16/2024 11:05 AM [facility] LAB RDW 13.0 11.0 - 15.0 % LAB HEMETOLOGY METHOD 11/16/2024 11:05 AM [facility] LAB Platelets 307 130 - 400 K/mcL LAB HEMETOLOGY METHOD 11/16/2024 11:05 AM [facility] LAB MPV 9.8 7.0 - 11.0 FL LAB HEMETOLOGY METHOD 11/16/2024 11:05 AM [facility] LAB NRBC 0.0 <1.0 % LAB HEMETOLOGY METHOD 11/16/2024 11:05 AM [facility] LAB NRBC Absolute 0.00 <0.10 K/mcL LAB HEMETOLOGY METHOD 11/16/2024 11:05 AM [facility] LAB Neutrophils Relative 54.7 % LAB HEMETOLOGY METHOD 11/16/2024 11:05 AM [facility] LAB Lymphocytes Relative 23.1 % LAB HEMETOLOGY METHOD 11/16/2024 11:05 AM [facility] LAB Monocytes Relative 19.6 % LAB HEMETOLOGY METHOD 11/16/2024 11:05 AM [facility] LAB Eosinophils Relative 0.5 % LAB HEMETOLOGY METHOD 11/16/2024 11:05 AM [facility] LAB Basophils Relative 1.3 % LAB HEMETOLOGY METHOD 11/16/2024 11:05 AM [facility] LAB Immature Granulocytes Relative 0.8 % LAB HEMETOLOGY METHOD 11/16/2024 11:05 AM [facility] LAB Neutrophils Absolute 2.06 1.50 - 7.00 K/mcL LAB HEMETOLOGY METHOD 11/16/2024 11:05 AM [facility] LAB Lymphocytes Absolute 0.87(L) 1.00 - 5.00 K/mcL LAB HEMETOLOGY METHOD 11/16/2024 11:05 AM [facility] LAB Monocytes Absolute 0.74 0.20 - 1.00 K/mcL LAB HEMETOLOGY METHOD 11/16/2024 11:05 AM [facility] LAB Eosinophils Absolute 0.02 0.00 - 0.50 K/mcL LAB HEMETOLOGY METHOD 11/16/2024 11:05 AM [facility] LAB Basophils Absolute 0.05 0.00 - 0.20 K/mcL LAB HEMETOLOGY METHOD 11/16/2024 11:05 AM [facility] LAB Immature Granulocytes Absolute 0.03 0.00 - 0.03 K/mcL LAB HEMETOLOGY METHOD 11/16/2024 11:05 AM [facility] LAB Blood Venous blood specimen / Unknown Venipuncture / Unknown 11/16/2024 5:44 AM EST 11/16/2024 10:20 AM EST us Gloria Preston MD LAB BLOOD ORDERABLES Final Resu lt [facility] [address] [place] [address], [place] [phone] * (ABNORMAL) Basic metabolic panel (11/16/2024 5:44 AM EST) Sodium 135 133 - 145 mmol/L LAB CHEMISTRY METHOD 11/16/2024 2:30 PM [facility] LAB Potassium 4.1 3.5 - 5.5 mmol/L LAB CHEMISTRY METHOD 11/16/2024 2:30 PM [facility] LAB Chloride 99 96 - 110 mmol/L LAB CHEMISTRY METHOD 11/16/2024 2:30 PM [facility] LAB CO2 25 21 - 32 mmol/L LAB CHEMISTRY METHOD 11/16/2024 2:30 PM [facility] LAB Anion Gap 11 3 - 11 LAB CHEMISTRY METHOD 11/16/2024 2:30 PM [facility] LAB Glucose 79 70 - 100 mg/dL LAB CHEMISTRY METHOD 11/16/2024 2:30 PM [facility] LAB BUN 18 5 - 25 mg/dL LAB CHEMISTRY METHOD 11/16/2024 2:30 PM [facility] LAB Creatinine 0.64(L) 0.70 - 1.30 mg/dL LAB CHEMISTRY METHOD 11/16/2024 2:30 PM [facility] LAB eGFR 93 >=60 mL/min/1. 73m2 LAB CHEMISTRY METHOD 11/16/2024 2:30 PM [facility] LAB Comment:Calculation based on the??Chronic Kidney Disease Epidemiology Collaboration (CKD-EPI) equation refit??without adjustment for race. BUN/Creatinine Ratio 28.1 LAB CHEMISTRY METHOD 11/16/2024 2:30 PM [facility] LAB Calcium 8.9 8.5 - 10.5 mg/dL LAB CHEMISTRY METHOD 11/16/2024 2:30 PM EST [facility] LAB Blood Venous blood specimen / Unknown Venipuncture / Unknown 11/16/2024 5:44 AM EST 11/16/2024 10:20 AM EST us Gloria Preston MD LAB BLOOD ORDERABLES Final Resu lt [facility] [address] [place] [address], documented in this encounter Visit Diagnoses Diagnosis Encounter for other general examination documented in this encounter Care Teams Tree Pruner Relationship Specialty Start Date End Date Gloria Preston MD [address] [place] [phone] PCP - General Hospitalist Medicine 11/05/24 documented as of this encounter
--- OUTSIDE RECORDS SUMMARY | 2024-12-16 11:47 | XMS_ITS | Clinical Summary ---
Author Organization [address] [facility] Address [address] [place] [address] Phone Care Team Providers Care Environmental Remediation Specialist Name Role Phone Gloria Preston MD Primary Care Provider Encounters Date Type Department Care Team Description 11/18/2024 Lab Requisition [facility] Lab [address] [place] [address] Gloria Preston MD Encounter for other general examination 11/16/2024 Lab Requisition [facility] Lab [address] [place] [address] Gloria Preston MD Encounter for other general examination 11/14/2024 Lab Requisition [facility] Lab [address] [place] [address] Gloria Preston MD Encounter for other general examination 11/10/2024 Lab Requisition [facility] Lab [address] [place] [address] Gloria Preston MD Encounter for other general examination 11/07/2024 Lab Requisition [facility] Lab [address] [place] [address] Gloria Preston MD Encounter for other general examination 11/05/2024 Lab Requisition [facility] Lab [address] [place] [address] Gloria Preston MD Encounter for other general [...] K/mcL LAB HEMETOLOGY METHOD 11/18/2024 4:02 PM [facility] LAB RBC 3.90(L) 4.50 - 5.50 M/mcL LAB HEMETOLOGY METHOD 11/18/2024 4:02 PM [facility] LAB Hemoglobin 12.8(L) 13.5 - 17.5 g/dL LAB HEMETOLOGY METHOD 11/18/2024 4:02 PM [facility] LAB Hematocrit 37.1(L) 42.0 - 54.0 % LAB HEMETOLOGY METHOD 11/18/2024 4:02 PM [facility] LAB MCV 94.2 79.0 - 98.0 FL LAB HEMETOLOGY METHOD 11/18/2024 4:02 PM [facility] LAB MCH 32.5(H) 27.0 - 32.0 pcg LAB HEMETOLOGY METHOD 11/18/2024 4:02 PM [facility] LAB MCHC 34.5 32.0 - 37.0 g/dL LAB HEMETOLOGY METHOD 11/18/2024 4:02 PM [facility] LAB RDW 12.7 11.0 - 15.0 % LAB HEMETOLOGY METHOD 11/18/2024 4:02 PM [facility] LAB Platelets 269 130 - 400 K/mcL LAB HEMETOLOGY METHOD 11/18/2024 4:02 PM [facility] LAB MPV 9.8 7.0 - 11.0 FL LAB HEMETOLOGY METHOD 11/18/2024 4:02 PM [facility] LAB NRBC 0.0 <1.0 % LAB HEMETOLOGY METHOD 11/18/2024 4:02 PM [facility] LAB NRBC Absolute 0.00 <0.10 K/mcL LAB HEMETOLOGY METHOD 11/18/2024 4:02 PM [facility] LAB Neutrophils Relative 70.4 % LAB HEMETOLOGY METHOD 11/18/2024 4:02 PM [facility] LAB Lymphocytes Relative 16.0 % LAB HEMETOLOGY METHOD 11/18/2024 4:02 PM [facility] LAB Monocytes Relative 12.8 % LAB HEMETOLOGY METHOD 11/18/2024 4:02 PM [facility] LAB Eosinophils Relative 0.0 % LAB HEMETOLOGY METHOD 11/18/2024 4:02 PM [facility] LAB Basophils Relative 0.5 % LAB HEMETOLOGY METHOD 11/18/2024 4:02 PM [facility] LAB Immature Granulocytes Relative 0.3 % LAB HEMETOLOGY METHOD 11/18/2024 4:02 PM [facility] LAB Neutrophils Absolute 2.64 1.50 - 7.00 K/mcL LAB HEMETOLOGY METHOD 11/18/2024 4:02 PM [facility] LAB Lymphocytes Absolute 0.60(L) 1.00 - 5.00 K/mcL LAB HEMETOLOGY METHOD 11/18/2024 4:02 PM EST [facility] LAB Monocytes Absolute 0.48 0.20 - 1.00 K/[facility] LAB HEMETOLOGY METHOD 11/18/2024 4:02 PM [facility] LAB Eosinophils Absolute 0.00 0.00 - 0.50 K/[facility] LAB HEMETOLOGY METHOD 11/18/2024 4:02 PM EST [facility] LAB Basophils Absolute 0.02 0.00 - 0.20 K/[facility] LAB HEMETOLOGY METHOD 11/18/2024 4:02 PM EST [facility] LAB Immature Granulocytes Absolute 0.01 0.00 - 0.03 K/[facility] LAB HEMETOLOGY METHOD 11/18/2024 4:02 PM [facility] LAB Blood Venous blood specimen / Unknown Venipuncture / Unknown 11/18/2024 2:59 PM EST 11/18/2024 3:36 PM EST Gloria Preston MD LAB BLOOD ORDERABLES Final Resu lt [facility] [address] [place] [address], [place] [phone] * Prolactin (11/18/2024 2:59 PM EST) Prolactin 12.10 2.50 - 17.40 ng/mL LAB CHEMISTRY METHOD 11/18/2024 7:21 PM EST [facility] Blood Venous blood specimen / Unknown Venipuncture / Unknown 11/18/2024 2:59 PM EST 11/18/2024 3:36 PM EST us Gloria Preston MD LAB BLOOD ORDERABLES Final Resu lt [facility] [address] [place] [address], [place] [phone] * (ABNORMAL) Magnesium (11/18/2024 2:59 PM EST) Only the most recent of3 resultswithin the time period is included. [facility] Magnesium 1.6(L) 1.9 - 2.6 mg/dL LAB CHEMISTRY METHOD 11/18/2024 7:07 PM [facility] Blood Venous blood specimen / Unknown Venipuncture / Unknown 11/18/2024 2:59 PM EST 11/18/2024 3:36 PM EST us Gloria Preston MD LAB BLOOD ORDERABLES Final Resu lt [facility] [address] [place] [address], [place] [phone] * (ABNORMAL) Comprehensive metabolic panel (11/18/2024 2:59 PM EST) Only the most recent of3 resultswithin the time period is included. [facility] Sodium 134 133 - 145 mmol/L LAB CHEMISTRY METHOD 11/18/2024 7:21 PM [facility] Potassium 3.9 3.5 - 5.5 mmol/L LAB CHEMISTRY METHOD 11/18/2024 7:21 PM [facility] LAB Chloride 98 96 - 110 mmol/L LAB CHEMISTRY METHOD 11/18/2024 7:21 PM [facility] LAB CO2 27 21 - 32 mmol/L LAB CHEMISTRY METHOD 11/18/2024 7:21 PM [facility] LAB Anion Gap 9 3 - 11 LAB CHEMISTRY METHOD 11/18/2024 7:21 PM [facility] LAB Glucose 96 70 - 100 mg/dL LAB CHEMISTRY METHOD 11/18/2024 7:21 PM [facility] BUN 16 5 - 25 mg/dL LAB CHEMISTRY METHOD 11/18/2024 7:21 PM [facility] Creatinine 0.68(L) 0.70 - 1.30 mg/dL LAB CHEMISTRY METHOD 11/18/2024 7:21 PM [facility] LAB eGFR 92 >=60 mL/min/1. 73m2 LAB CHEMISTRY METHOD 11/18/2024 7:21 PM [facility] LAB Comment:Calculation based on the??Chronic Kidney Disease Epidemiology Collaboration (CKD-EPI) equation refit??without adjustment for race. BUN/Creatinine Ratio 23.5 LAB CHEMISTRY METHOD 11/18/2024 7:21 PM [facility] Calcium 8.8 8.5 - 10.5 mg/dL LAB CHEMISTRY METHOD 11/18/2024 7:21 PM [facility] AST (SGOT) 25 10 - 42 unit/L LAB CHEMISTRY METHOD 11/18/2024 7:21 PM [facility] ALT (SGPT) 22 10 - 60 unit/L LAB CHEMISTRY METHOD 11/18/2024 7:21 PM [facility] Alkaline Phosphatase 89 42 - 121 unit/L LAB CHEMISTRY METHOD 11/18/2024 7:21 PM [facility] Total Protein 6.5 6.0 - 8.0 g/dL LAB CHEMISTRY METHOD 11/18/2024 7:21 PM [facility] Albumin 2.8(L) 3.2 - 5.0 g/dL LAB CHEMISTRY METHOD 11/18/2024 7:21 PM [facility] Total Bilirubin 0.3 0.0 - 1.4 mg/dL LAB CHEMISTRY METHOD 11/18/2024 7:21 PM [facility] Blood Venous blood specimen / Unknown Venipuncture / Unknown 11/18/2024 2:59 PM EST 11/18/2024 3:36 PM EST us Gloria Preston MD LAB BLOOD ORDERABLES Final Resu lt [facility] [address] [place] [address], [place] [phone] * (ABNORMAL) Basic metabolic panel (11/16/2024 5:44 AM EST) Only the most recent of3 resultswithin the time period is included. Sodium 135 133 - 145 mmol/L LAB CHEMISTRY METHOD 11/16/2024 2:30 PM [facility] Potassium 4.1 3.5 - 5.5 mmol/L LAB CHEMISTRY METHOD 11/16/2024 2:30 PM [facility] Chloride 99 96 - 110 mmol/L LAB CHEMISTRY METHOD 11/16/2024 2:30 PM [facility] LAB CO2 25 21 - 32 mmol/L LAB CHEMISTRY METHOD 11/16/2024 2:30 PM [facility] Anion Gap 11 3 - 11 LAB CHEMISTRY METHOD 11/16/2024 2:30 PM [facility] Glucose 79 70 - 100 mg/dL LAB CHEMISTRY METHOD 11/16/2024 2:30 PM [facility] BUN 18 5 - 25 mg/dL LAB CHEMISTRY METHOD 11/16/2024 2:30 PM [facility] Creatinine 0.64(L) 0.70 - 1.30 mg/dL LAB CHEMISTRY METHOD 11/16/2024 2:30 PM [facility] LAB eGFR 93 >=60 mL/min/1. 73m2 LAB CHEMISTRY METHOD 11/16/2024 2:30 PM [facility] LAB Comment:Calculation based on the??Chronic Kidney Disease Epidemiology Collaboration (CKD-EPI) equation refit??without adjustment for race. BUN/Creatinine Ratio 28.1 LAB CHEMISTRY METHOD 11/16/2024 2:30 PM [facility] Calcium 8.9 8.5 - 10.5 mg/dL LAB CHEMISTRY METHOD 11/16/2024 2:30 PM [facility] Blood Venous blood specimen / Unknown Venipuncture / Unknown 11/16/2024 5:44 AM EST 11/16/2024 10:20 AM EST us Gloria Preston MD LAB BLOOD ORDERABLES Final Resu lt Performing Organization Address [facility] Co de Phone Number [facility] [address] [place] [address], [place] [phone] * Thyroid stimulating hormone (11/10/2024 6:06 AM EST) Pathologist [facility] TSH 1.57 0.40 - 4.00 mcIU/mL LAB CHEMISTRY METHOD 11/10/2024 9:51 PM EST [facility] Blood Venous blood specimen / Unknown Venipuncture / Unknown 11/10/2024 6:06 AM EST 11/10/2024 8:03 AM EST us Gloria Preston MD LAB BLOOD ORDERABLES Final Resu lt Performing Organization Address [facility] de Phone Number [facility] [address] [place] [address], [place] [phone] * Vitamin B12 (11/10/2024 6:06 AM EST) [facility] Vitamin B-12 413 250 - 900 pcg/mL LAB CHEMISTRY METHOD 11/10/2024 9:28 PM EST [facility] Blood Venous blood specimen / Unknown Venipuncture / Unknown 11/10/2024 6:06 AM EST 11/10/2024 8:03 AM EST us Gloria Preston MD LAB BLOOD ORDERABLES Final Resu lt Performing Organization Address [facility] Co de Phone Number [facility] [address] [place] [address], [place] [phone] from Last 3 Months Insurance [employer] Care Teams Environmental Remediation Specialist Relationship Specialty Start Date End Date Gloria Preston MD [address] [place] [phone] PCP - General Hospitalist Medicine 11/05/24
--- OUTSIDE RECORDS SUMMARY | 2024-12-16 11:47 | XMS_ITS | Encounter Summary ---
Author Organization [facility] Address [address] [place] [address] Care Team Providers Care Retort Furnace Helper Name Role Phone Gloria Preston MD Primary Care Provider [phone] Encounter Details Date Type Department Care Team (Late st Contact Info) Description 11/14/2024 Lab Requisition [facility] - Main Lab [address] [facility] [place] [address] Gloria Preston MD [address] [place] [phone] Encounter for other general examination Social History [...] AM EST) WBC 4.3(L) 4.8 - 10.8 K/[facility] LAB HEMETOLOGY METHOD 11/14/2024 10:05 AM [facility] LAB RBC 4.00(L) 4.50 - 5.50 M/mcL LAB HEMETOLOGY METHOD 11/14/2024 10:05 AM [facility] LAB Hemoglobin 13.0(L) 13.5 - 17.5 g/dL LAB HEMETOLOGY METHOD 11/14/2024 10:05 AM [facility] LAB Hematocrit 37.6(L) 42.0 - 54.0 % LAB HEMETOLOGY METHOD 11/14/2024 10:05 AM [facility] LAB MCV 93.5 79.0 - 98.0 FL LAB HEMETOLOGY METHOD 11/14/2024 10:05 AM [facility] LAB MCH 32.3(H) 27.0 - 32.0 pcg LAB HEMETOLOGY METHOD 11/14/2024 10:05 AM [facility] LAB MCHC 34.6 32.0 - 37.0 g/dL LAB HEMETOLOGY METHOD 11/14/2024 10:05 AM [facility] LAB RDW 12.4 11.0 - 15.0 % LAB HEMETOLOGY METHOD 11/14/2024 10:05 AM [facility] LAB Platelets 368 130 - 400 K/mcL LAB HEMETOLOGY METHOD 11/14/2024 10:05 AM [facility] LAB MPV 9.7 7.0 - 11.0 FL LAB HEMETOLOGY METHOD 11/14/2024 10:05 AM [facility] LAB NRBC 0.0 <1.0 % LAB HEMETOLOGY METHOD 11/14/2024 10:05 AM [facility] LAB NRBC Absolute 0.00 <0.10 K/mcL LAB HEMETOLOGY METHOD 11/14/2024 10:05 AM [facility] LAB Neutrophils Relative 76.1 % LAB HEMETOLOGY METHOD 11/14/2024 10:05 AM [facility] LAB Lymphocytes Relative 10.3 % LAB HEMETOLOGY METHOD 11/14/2024 10:05 AM [facility] Monocytes Relative 11.0 % LAB HEMETOLOGY METHOD 11/14/2024 10:05 AM [facility] LAB Eosinophils Relative 1.2 % LAB HEMETOLOGY METHOD 11/14/2024 10:05 AM [facility] Basophils Relative 0.9 % LAB HEMETOLOGY METHOD 11/14/2024 10:05 AM [facility] LAB Immature Granulocytes Relative 0.5 % LAB HEMETOLOGY METHOD 11/14/2024 10:05 AM [facility] LAB Neutrophils Absolute 3.26 1.50 - 7.00 K/mcL LAB HEMETOLOGY METHOD 11/14/2024 10:05 AM [facility] LAB Lymphocytes Absolute 0.44(L) 1.00 - 5.00 K/mcL LAB HEMETOLOGY METHOD 11/14/2024 10:05 AM [facility] LAB Monocytes Absolute 0.47 0.20 - 1.00 K/mcL LAB HEMETOLOGY METHOD 11/14/2024 10:05 AM [facility] LAB Eosinophils Absolute 0.05 0.00 - 0.50 K/mcL LAB HEMETOLOGY METHOD 11/14/2024 10:05 AM [facility] LAB Basophils Absolute 0.04 0.00 - 0.20 K/mcL LAB HEMETOLOGY METHOD 11/14/2024 10:05 AM [facility] LAB Immature Granulocytes Absolute 0.02 0.00 - 0.03 K/mcL LAB HEMETOLOGY METHOD 11/14/2024 10:05 AM [facility] LAB Blood Venous blood specimen / Unknown Venipuncture / Unknown 11/14/2024 6:36 AM EST 11/14/2024 8:21 AM EST us Gloria Preston MD LAB BLOOD ORDERABLES Final Resu lt [facility] [address] [place] [address], * (ABNORMAL) Basic metabolic panel (11/14/2024 6:36 AM EST) Sodium 135 133 - 145 mmol/L LAB CHEMISTRY METHOD 11/14/2024 10:43 AM [facility] Potassium 4.0 3.5 - 5.5 mmol/L LAB CHEMISTRY METHOD 11/14/2024 10:43 AM [facility] Chloride 101 96 - 110 mmol/L LAB CHEMISTRY METHOD 11/14/2024 10:43 AM [facility] CO2 24 21 - 32 mmol/L LAB CHEMISTRY METHOD 11/14/2024 10:43 AM [facility] Anion Gap 10 3 - 11 LAB CHEMISTRY METHOD 11/14/2024 10:43 AM [facility] LAB Glucose 86 70 - 100 mg/dL LAB CHEMISTRY METHOD 11/14/2024 10:43 AM [facility] BUN 22 5 - 25 mg/dL LAB CHEMISTRY METHOD 11/14/2024 10:43 AM [facility] Creatinine 0.59(L) 0.70 - 1.30 mg/dL LAB CHEMISTRY METHOD 11/14/2024 10:43 AM [facility] LAB eGFR 96 >=60 mL/min/1. 73m2 LAB CHEMISTRY METHOD 11/14/2024 10:43 AM [facility] LAB Comment:Calculation based on the??Chronic Kidney Disease Epidemiology Collaboration (CKD-EPI) equation refit??without adjustment for race. BUN/Creatinine Ratio 37.3 LAB CHEMISTRY METHOD 11/14/2024 10:43 AM [facility] Calcium 9.0 8.5 - 10.5 mg/dL LAB CHEMISTRY METHOD 11/14/2024 10:43 AM EST [facility] Blood Venous blood specimen / Unknown Venipuncture / Unknown 11/14/2024 6:36 AM EST 11/14/2024 8:21 AM EST us Gloria Preston MD LAB BLOOD ORDERABLES Final Resu lt [facility] [address] [place] [address], documented in this encounter Visit Diagnoses Diagnosis Encounter for other general examination documented in this encounter Care Teams Retort Furnace Helper Relationship Specialty Start Date End Date Gloria Preston MD [address] [place] [phone] PCP - General Hospitalist Medicine 11/05/24 documented as of this encounter
--- OUTSIDE RECORDS SUMMARY | 2024-12-16 11:47 | XMS_ITS | Encounter Summary ---
Author Organization [facility] Address [address] [place] [address] Care Team Providers Care Office Administration Instructor Name Role Phone Gloria Preston MD Primary Care Provider [phone] Encounter Details Date Type Department Care Team (Late st Contact Info) Description 11/07/2024 Lab Requisition [facility] [address] [place] [address] Gloria Preston MD [address] [place] [phone] Encounter for other general examination Social History [...] LAB CHEMISTRY METHOD 11/07/2024 1:[address] [facility] Potassium 3.9 3.5 - 5.5 mmol/L LAB CHEMISTRY METHOD 11/07/2024 1:[address] [facility] Chloride 99 96 - 110 mmol/L LAB CHEMISTRY METHOD 11/07/2024 1:06 PM [facility] CO2 22 21 - 32 mmol/L LAB CHEMISTRY METHOD 11/07/2024 1:06 PM [facility] Anion Gap 13(H) 3 - 11 LAB CHEMISTRY METHOD 11/07/2024 1:06 PM [facility] Glucose 78 70 - 100 mg/dL LAB CHEMISTRY METHOD 11/07/2024 1:06 PM [facility] BUN 20 5 - 25 mg/dL LAB CHEMISTRY METHOD 11/07/2024 1:06 PM [facility] Creatinine 0.55(L) 0.70 - 1.30 mg/dL LAB CHEMISTRY METHOD 11/07/2024 1:06 PM [facility] eGFR 98 >=60 mL/min/1. 73m2 LAB CHEMISTRY METHOD 11/07/2024 1:06 PM [facility] Comment:Calculation based on the??Chronic Kidney Disease Epidemiology Collaboration (CKD-EPI) equation refit??without adjustment for race. BUN/Creatinine Ratio 36.4 LAB CHEMISTRY METHOD 11/07/2024 1:06 PM [facility] Calcium 8.6 8.5 - 10.5 mg/dL LAB CHEMISTRY METHOD 11/07/2024 1:06 PM [facility] AST (SGOT) 44(H) 10 - 42 unit/L LAB CHEMISTRY METHOD 11/07/2024 1:06 PM [facility] Comment:Results verified by repeat testing ALT (SGPT) 41 10 - 60 unit/L LAB CHEMISTRY METHOD 11/07/2024 1:06 PM [facility] Comment:Results verified by repeat testing Alkaline Phosphatase 100 42 - 121 unit/L LAB CHEMISTRY METHOD 11/07/2024 1:06 PM [facility] Total Protein 6.4 6.0 - 8.0 g/dL LAB CHEMISTRY METHOD 11/07/2024 1:06 PM EST [facility] Albumin 2.7(L) 3.2 - 5.0 g/dL LAB CHEMISTRY METHOD 11/07/2024 1:06 PM EST [facility] Total Bilirubin 1.1 0.0 - 1.4 mg/dL LAB CHEMISTRY METHOD 11/07/2024 1:[address] [facility] Blood Venous blood specimen / Unknown Venipuncture / Unknown 11/07/2024 5:23 AM EST 11/07/2024 10:38 AM EST us Gloria Preston MD LAB BLOOD ORDERABLES Final Resu lt [facility] [address] [place] [address], documented in this encounter Visit Diagnoses Diagnosis Encounter for other general examination documented in this encounter Care Teams Office Administration Instructor Relationship Specialty Start Date End Date Gloria Preston MD [address] [place] [phone] PCP - General Hospitalist Medicine 11/05/24 documented as of this encounter
--- OUTSIDE RECORDS SUMMARY | 2024-12-16 11:47 | XMS_ITS | Patient Health Record ---
Author Organization Robbie Kothari III, MD Address [address] [place] [address] Care Team Providers Care Wrapper Sorter Name Role Phone Robbie Kothari Primary Care Provider [phone] Allergies Allergen (clinical drug ingredient) Drug/Non Drug Allergy documented on EMR Reaction Allergy Type Onset Date Status No Known Drug Allergy Unknown Drug Allergy Active Results Component Value Reference Range Notes Hold Lt Blue - Possible Coag Reviewed date:10/30/2024 09:55:19 AM Interpretation: Performing Lab:[facility], [address] [place] [phone] Notes/Report: Hold Lt Blue - Possible Coag SEE NOTE Specimen will be held untested for 4 hours. Call Hematology if testing is desired. Comprehensive Met. Panel Reviewed date:10/30/2024 09:55:19 AM Interpretation: Performing Lab:[facility], [address] [place] [phone] Notes/Report: Sodium 131 135-145 mmol/L Potassium 4.2 3.3-5.1 mmol/L Chloride 99 96-108 mmol/L Carbon Dioxide 24 22-29 mmol/L Anion Gap 12 12-20 Blood Urea Nitrogen 12 9-16 mg/dL Creatinine 0.75 0.5-1.4 mg/dL Creatinine Clr Calc Pharmacy 75.7 eGFR (calculated from the MDRD study equation) and eCrCl (calculated from the Cockcroft-Gault equation) are based on different parameters and may not yield comparable results. If eCrCl result is absurd, please check patient's height/weight. Estimated Glomerular Filt Rate > 60 Chronic Kidney Disease: Estimated GFR < 60 mL/min/1.73m2 Severe Kidney Disease: Estimated GFR < 15 mL/min/1.73m2 Glucose Random 129 60-115 mg/dL Calcium 9.5 8.4-10.2 mg/dL Bilirubin Total 0.8 0.0-1.0 mg/dL Aspartate Amino Transferase 29 5-37 U/L Alanine Aminotransferase 14 0-40 U/L Total Protein 8.0 6.5-8.0 g/dL Albumin Level 4.1 3.5-5.0 g/dL Alkaline Phosphatase 79 39-117 U/L Magnesium Reviewed date:10/30/2024 09:55:19 AM Interpretation: Performing Lab:[facility], [address] [place] [phone] Notes/Report: Magnesium 1.5 1.6-2.6 mg/dL Troponin-I High Sensitivity Reviewed date:10/30/2024 09:55:19 AM Interpretation: Performing Lab:[facility], [address] [place] [phone] Notes/Report: Troponin-I High Sensitivity 3.1 <3.5-35.0 ng/L The Duran high sensitivity Troponin-I results should be used in conjunction with other diagnostic information such as ECG, clinical observations and information, and patient symptoms to aid in the diagnosis of MS. SARS-CoV2/FLU/RSV Reviewed date:10/30/2024 09:55:19 AM Interpretation: Performing Lab:[facility], [address] [place] [phone] Notes/Report: Influenza A PCR NEGATIVE Negative Influenza B PCR NEGATIVE Negative Resp Syncy Virus RNA Qual PCR NEGATIVE Negative SARS COV2 PCR INHOUSE NEGATIVE Negative All test results must be correlated with clinical findings. Negative results do not preclude SARS-CoV2, influenza A virus, influenza B virus and/or RSV infection and should not be used as the sole basis for treatment or other patient management decisions. Negative results must be combined with clinical observations, patient history, and epidemiological information. This test has not been evaluated for monitoring treatment of infection. This test has been authorized by the FDA under an Emergency Use Authorization (EUA) for use by authorized laboratories. Testing performed on the [employer] GeneXpert utilizing real-time RT-PCR. All SARS CoV2 and positive influenza A/B results are reported to [facility]. CT head for stroke Reviewed date:10/30/2024 09:55:19 AM Interpretation: Performing Lab: Notes/Report: [address] [address] [address] Scan Report Signed Patient: Freeman King MR#: [id number] [birth year] : 1940 Acct:[id number] Age/Sex: 84 / M ADM Date: 10/27/24 Loc: HO.ED Attending Dr: Ordering Physician: Alejandrina Mazariegos Date of Service: 10/27/24 Procedure(s): CT head for STROKE Accession Number(s): [id number] cc: Robbie Kothari MD; Alejandrina Mazariegos Report Number: [id number]: Total DLP = 799.00 mGy-cm EXAMINATION: CT HEAD WITHOUT CONTRAST (STROKE PROTOCOL) CLINICAL INFORMATION: Stroke protocol. Altered mental status, confusion since yesterday. COMPARISON: 10/21/2021. TECHNIQUE: Contiguous axial imaging was performed from the skull base to vertex without intravenous administration of contrast. This CT examination was performed using dose optimization techniques as appropriate, variously including the following: *Automated exposure control *Adjustment of mA and/or kV according to patient size (this includes techniques or standardized protocols for targeted exams where dose is matched to indication/reason for exam; i.e. extremities or head) *Use of iterative reconstruction technique FINDINGS: There is an intraparenchymal hematoma centered in the left temporal lobe, with associated mass effect, localized sulcal effacement, and abutting edema. The hematoma measures approximately 7.2 x 3.6 x 3.0 cm (AP, TRV, CC). There is a small amount of hemorrhage within the ventricular system layering in the left greater than right temporal horns. Small amounts of subarachnoid hemorrhage are present in the left temporal lobe. There is resultant mass effect and jkyw-bd-fqtdg midline shift of 3 mm. There is mass effect upon the left lateral ventricle atrium and temporal horn, with stable appearing mild dilatation of the right lateral ventricle. There is no ventricular trapping or impending herniation. Negative hyperdense MCA sign. Negative insular ribbon sign. There is moderate supratentorial white matter hypointensity in keeping with small vessel ischemic change. Globes and orbital contents demonstrate demonstrate placement. There is no extracranial soft tissue abnormality identified. There are no fractures. The paranasal sinuses and mastoids are normally aerated. CT/CT head for STROKE IMPRESSION: 1. Acute left temporal intraparenchymal hematoma measuring 7.2 x 3.6 x 3.0 cm (AP, TRV, CC). Etiology is unclear although differential includes hemorrhagic conversion of inferior branch left MCA versus posttraumatic etiology. Unusual location for hypertensive hemorrhage. Aneurysmal hemorrhage is also a possibility. 2. Small amounts of subarachnoid hemorrhage in the left temporal region, and tiny amount of hemorrhage within the ventricular system. No acute hydrocephalus. Mass effect upon the left temporal horn and atrium. 3. There is 3 mm of ofkw-ki-llbls midline shift. No impending herniation at this time. This critical result was discussed with Alejandrina Mazariegos at 12:11 PM, on 10/27/2024 via phone call. Electronically signed by: Zohaib Brown MD 10/27/2024 12:14 PM [facility] Dictated By: Zohaib Brown MD Signed By: <Electronically signed by Zohaib Brown MD in OV> 10/27/24 1214 DD/ 1148 TD/TT: 10/27/24 1156 Immunohematologist: [place] [address] CT Scan Report Signed Patient: Jeremiah King MR#: [id number] [birth year] : 1940 Acct:[id number] Age/Sex: 84 / M ADM Date: 10/27/24 Loc: HO.ED Attending Dr: Ordering Physician: Alejandrina Mazariegos Date of Service: 10/27/24 Procedure(s): CT hea d for STROKE Accession Number(s): [id number] cc: Robbie Kothari MD; Alejandrina Mazariegos Report Number: [id number]: Total DLP = 799.00 mGy-cm EXAMINATION: CT HEAD WITHOUT CONT RAST (STROKE PROTOCOL) CLINICAL INFORMATION: Stroke protocol. Alt ered mental status, confusion since yesterday. COMPARISON: 10/21/2021. TECHNIQUE: Contiguous axial rajan ging was performed from the skull base to vertex without intravenous administration of contrast. This CT examination was performed using dose optimization techniques as appropriate, various ly including the following: *Automated exposure control *Adjustment of mA an d/or kV according to patient size (this includes techniques or standardized protocols for targeted exams where dose is matched to indication/reason for exam; i.e. extremities or head) *Use of iterative reconstruction technique FINDINGS: There is an intraparenchymal hematoma centered in the left temporal lobe, with associate d mass effect, localized sulcal effacement, and abutting edema. The hematoma measures approximately 7.2 x 3.6 x 3.0 cm (AP, TRV, CC). There is a small amount of hemorrhage within the ventricular system layering in the left greater than right temporal horns. Small amounts of subarachnoid hemorrhage are present in the left temporal lobe. There is resultant m ass effect and rptv-zg-zvoap midline shift of 3 mm. There is mass effect upon the left lateral ventricle atrium and temporal horn, with stable appearing mild dilatation of the right lateral ventricle. T here is no ventricular trapping or impending herniation. Negative hyperdense MCA sign. Negative insular ribbon sign. There is moderate supratentorial white matter hypointensity in keeping with small vessel ischemic change. Globes and orbital contents demonstrate demonstrate placement. There is no extracra nial soft tissue abnormality identified. There are no fractures. The paranasal sinuse s and mastoids are normally aerated. C T/CT head for STROKE IMPRESSION: 1. Acute left tempor al intraparenchymal hematoma measuring 7.2 x 3.6 x 3.0 cm (AP, TRV, CC) . Etiology is unclear although differential includes hemorrhagic conversion of inferior branch left MCA versus posttraumatic etiolo gy. Unusual location for hypertensive hemorrhage. Aneurysmal hemorrhag e is also a possibility. 2. Small amounts of subarachnoid hemorrhage in the left temporal region, and tiny maryse unt of hemorrhage within the ventricular system. No acute hydrocephalus. Mass effect upon the left temporal horn and atrium. 3. There is 3 mm of cypp-uj-unuce midline shift. No impending herniation at this time. This critical result was discussed with Alejandrina Mazariegos at 12:11 PM, on 10/27/2024 via phone call. Electronically gurpreet d by: Zohaib Brown MD 10/27/2024 12:14 PM [facility] Dictated By: Zohaib Brown MD Signed By: <Electronically signed by Zohaib Brown MD in OV> 10/27/24 1214 DD/ 1148 TD/TT: 10/27/24 1156 Immunohematologist: CT cervical spine wo con Reviewed date:10/30/2024 09:55:19 AM Interpretation: Performing Lab: Notes/Report: [address] [address] [address] Scan Report Signed Patient: Freeman King MR#: [id number] [birth year] : 1940 Acct:[id number] Age/Sex: 84 / M ADM Date: 10/27/24 Loc: .ED Attending Dr: Ordering Physician: Alejandrina Mazariegos Date of Service: 10/27/24 Procedure(s): CT cervical spine wo IV con Accession Number(s): [id number] cc: Robbie Kothari MD; Alejandrina Mazariegos Report Number: [id number]: Total DLP = 376.00 mGy-cm EXAMINATION: CT CERVICAL SPINE WITHOUT CONTRAST CLINICAL INFORMATION: ? Trauma. COMPARISON: 10/21/2021. TECHNIQUE: Spiral CT imaging of the cervical spine performed in axial plane without contrast. Multiplanar reformatted images were constructed from the axial data set. This CT examination was performed using dose optimization techniques as appropriate, variously including the following: *Automated exposure control *Adjustment of mA and/or kV according to patient size (this includes techniques or standardized protocols for targeted exams where dose is matched to indication/reason for exam; i.e. extremities or head) *Use of iterative reconstruction technique FINDINGS: CORONAL ALIGNMENT: -Normal. SAGITTAL ALIGNMENT: Straightening of the normal lordosis. 2 mm degenerative type anterolisthesis C4 on C5. Alignment is otherwise anatomic. C1-C2 AND CRANIOCERVICAL JUNCTION: -Intact and normally aligned. There are associated moderate degenerative changes at the atlantoaxial joint. There is mild calcified pannus present without craniocervical junction narrowing. VERTEBRAL BODIES AND FACETS: -No fracture, traumatic subluxation, or suspicious bone lesion. No compression deformity. -Facets appear normally aligned without subluxations. There is partial fusion of the left C3-4 facet joints. There are multilevel degenerative facet changes right greater than left. This is most notable at C3-C5. DISCS: -Severe loss of disc space C5-6 with sclerotic type endplate changes. There are productive osteophytic changes. Otherwise, moderate to severe loss C6-7, and moderate loss at C2-C4. PREVERTEBRAL AND PARAVERTEBRAL SOFT TISSUES: -Normal. No pre or paravertebral soft tissue swelling or fluid collection. -Mildly atrophic appearing thyroid. Macrocalcification in the inferior left pole. -Mild bilateral carotid bulb calcification. -No masses or lymphadenopathy. LUNG APICES: -There is extensive scarring and bronchiectasis in the imaged lung apices. -There is no high-grade canal stenosis identified. CT/CT cervical spine wo IV con IMPRESSION: 1. No CT evidence of acute cervical spine fracture or injury. 2. Multilevel degenerative spondylosis most significant at C5-6. 3. Scarring and bronchiectasis in the bilateral lung apices. Electronically signed by: Zohaib Brown MD 10/27/2024 02:23 PM [facility] Dictated By: Zohaib Brwon MD Signed By: <Electronically signed by Zohaib Brown MD in OV> 10/27/24 1423 DD/ 1212 TD/TT: 10/27/24 1334 Immunohematologist: [place] [address] CT Scan Report Signed Patient: Jeremiah King MR#: [id number] [birth year] : 1940 Acct:[id number] Age/Sex: 84 / M ADM Date: 10/27/24 Loc: HO.ED Attending Dr: Ordering Physician: Alejandrina Mazariegos Date of Service: 10/27/24 Procedure(s): CT cer vical spine wo IV con Accession Number(s): [id number] cc: Robbie Kothari MD; Alejandrina Mazariegos Report Number: [id number]: Total DLP = 376.00 mGy-cm EXAMINATION: CT CERVICAL SPINE WI THOUT CONTRAST CLINICAL INFORMATION: ? Trauma. COMPARISON: 10/21/2021. TECHNIQUE: Spiral CT imaging of the cervical spine performed in axial plane without contrast. Multiplanar reformatted images were constructed from the axial data set. This CT examination was performed using dose optimization techniques as appropriate, various ly including the following: *Automated exposure control *Adjustment of mA an d/or kV according to patient size (this includes techniques or standardized protocols for targeted exams where dose is matched to indication/reason for exam; i.e. extremities or head) *Use of iterative reconstruction technique FINDINGS: CORONAL ALIGNMENT: -Normal. SAGITTAL ALIGNMENT: Straightening of the normal lordosis. 2 mm degenerative ty pe anterolisthesis C4 on C5. Alignment is otherwi se anatomic. C1-C2 AND CRANIOCERV ICAL JUNCTION: -Intact and normally aligned. There are associated moderate degenerative changes at the atlantoaxial joint. There is mild calcified pannus present witho ut craniocervical junction narrowing. VERTEBRAL BODIES AND FACETS: -No fracture, trauma tic subluxation, or suspicious bone lesion. No compression deformity. -Facets appear mikal lly aligned without subluxations. There is partial fusion of the left C 3-4 facet joints. There are multilevel degenerative facet changes right greater than left. This is most notable at C3-C5. DISCS: -Severe loss of disc space C5-6 with sclerotic type endplate changes. There are productive osteophytic changes. Otherwise, moderate to severe loss C6-7, and moderate loss at C2-C4. PREVERTEBRAL AND PARAVERTEBRAL SOFT TISSUES: -Normal. No pre or paravertebral soft tissue swelling or fluid collection. -Mildly atrophic appearing thyroid. Macrocalcification in the inferior left pole. -Mild bilateral nobles tid bulb calcification. -No masses or lymphadenopathy. LUNG APICES: -There is extensive scarring and bronchiectasis in the imaged lung apices. -There is no high-gr erinn canal stenosis identified. C T/CT cervical spine wo IV con IMPRESSION: 1. No CT evidence of acute cervical spine fracture or injury. 2. Multilevel degenerative spondylosis most significant at C5-6. 3. Scarring and bronchiectasis in the bilateral lung apices. Electronically gurpreet d by: Zohaib Brown MD 10/27/2024 02:23 PM [facility] Dictated By: Zohaib Borwn MD Signed By: <Electronically signed by Zohaib Brown MD in OV> 10/27/24 1423 DD/ 1212 TD/TT: 10/27/24 1334 Immunohematologist: XR chest 1V Reviewed date:10/30/2024 09:55:19 AM Interpretation: Performing Lab: Notes/Report: [address] [address] XRay Report Signed Patient: Freeman King MR#: [id number] [birth year] : 1940 Acct:[id number] Age/Sex: 84 / M ADM Date: 10/27/24 Loc: HO.ED Attending Dr: Ordering Physician: Alejandrina Mazariegos Date of Service: 10/27/24 Procedure(s): XR chest 1V Accession Number(s): [id number] cc: Robbie Kothari MD; Alejandrina Mazariegos EXAMINATION: XR CHEST CLINICAL INFORMATION: ams COMPARISON: CT chest 11/23/2023. TECHNIQUE: Frontal view of the chest was obtained. FINDINGS: The cardiac, hilar, and mediastinal contours are normal. Lungs demonstrate hyperaeration, chronic scarring and bronchiectasis in the right upper lobe distribution, as well as the left midlung. There are new patchy opacities in the right mid and lower lung foci centrally and peripherally suspicious for new infectious/inflammatory disease. No pneumothorax or effusion. No focal osseous or soft tissue abnormalities. XR/XR chest 1V IMPRESSION: 1. Compared with CT chest 11/23/2023, there are new peribronchial patchy opacities in the right mid and lower lung suspicious for new infectious/inflammatory disease. 2. Chronic bronchiectasis and reticular opacities in the right upper lobe and left midlung, similar to the prior. 3. No effusion. No pneumothorax. Electronically signed by: Zohaib Brown MD 10/27/2024 01:41 PM [facility] Dictated By: Zohaib Brown MD Signed By: <Electronically signed by Zohaib Brown MD in OV> 10/27/24 1341 DD/ 1127 TD/TT: 10/27/24 1328 Immunohematologist: [address] [address] XRay Report Signed Patient: Jeremiah King MR#: [id number] [birth year] : 1940 Acct:[id number] Age/Sex: 84 / M ADM Date: 10/27/24 Loc: HO.ED Attending Dr: Ordering Physician: Alejandrina Mazariegos Date of Service: 10/27/24 Procedure(s): XR chest 1V Accession Number(s): [id number] cc: Robbie Kothari MD; Alejandrina Mazariegos EXAMINATION: XR CHEST CLINICAL INFORMATION: ams COMPARISON: CT chest 11/23/2023. TECHNIQUE: Frontal view of the chest was obtained. FINDINGS: The cardiac, hilar, and mediastinal contours are normal. Lungs demonstrate hyperaeration, chronic scarring and bronchiectasis in the right upper lobe distribution, as well as the left midlung. There are new patchy opaci ties in the right mid and lower lung foci centrally and peripherally suspicious for new infectious/inflammatory disease. No pneumothorax or effusion. No focal osseous or soft tissue abnormalities. X R/XR chest 1V IMPRESSION: 1. Compared with CT chest 11/23/2023, there are new peribronchial patchy opacities in the rig ht mid and lower lung suspicious for new infectious/inflammat ory disease. 2. Chronic bronchiec tasis and reticular opacities in the right upper lobe and left midlun g, similar to the prior. 3. No effusion. No pneumothorax. Electronically gurpreet d by: Zohaib Brown MD 10/27/2024 01:41 PM [facility] Dictated By: Zohaib Brown MD Signed By: <Electronically signed by Zohaib Brown MD in OV> 10/27/24 1341 DD/ 1127 TD/TT: 10/27/24 1328 Immunohematologist: XR chest 2V (Not yet reviewe d by provider) Interpretation: Performing Lab: Notes/Report: [address] [address] XRay Report Signed Patient: Freeman King MR#: [id number] [birth year] : 1940 Acct:[id number] Age/Sex: 84 / M ADM Date: 12/02/24 Loc: HO.XRAY Attending Dr: Robbie Kothari MD Ordering Physician: Denilson Minor MD Date of Service: 12/02/24 Procedure(s): XR chest 2V Accession Number(s): [id number] cc: Robbie Kothari MD; Denilson Minor MD EXAMINATION: XR CHEST 2 VIEWS HISTORY: J47.9 - Bronchiectasis, uncomplicated COMPARISON: Comparison is made with the prior examination dated 10/27/2024. FINDINGS: PA and lateral views of the chest are submitted. Again seen is extensive scarring throughout both lungs, right greater than left. There are new airspace opacities in the right middle lobe and left lower lobe suspicious for pneumonia. There is no pleural effusion, pneumothorax, or pulmonary vascular congestion. The heart is normal in size. There is degenerative disc disease of the spine. XR/XR chest 2V IMPRESSION: Extensive bilateral lung scarring. New airspace opacities in the right middle lobe and left lower lobe, suspicious for pneumonia. Follow-up is recommended to document resolution. Electronically signed by: Robbie Rosales MD 12/02/2024 11:50 AM EDT Dictated By: Robbie Rosales MD Signed By: <Electronically signed by Robbie Rosales MD in OV> 12/02/24 1150 DD/ 1042 TD/TT: 12/02/24 1052 Immunohematologist: [place] [address] XRay Report Signed Patient: Jeremiah King MR#: [id number] [birth year] : 1940 Acct:[id number] Age/Sex: 84 / M ADM Date: 12/02/24 Loc: HO.KIRTIAY Attending Dr: Robbie Kothari MD Ordering Physician: Denilson Minor MD Date of Service: 12/02/24 Procedure(s): XR chest 2V Accession Number(s): [id number] cc: Robbie Kothari MD; Denilson Minor MD EXAMINATION: XR CHES T 2 VIEWS HISTORY: J47.9 - Bronchiectasis, uncomplicated COMPARISON: Comparis on is made with the prior examination dated 10/27/2024. FINDINGS: PA and lat eral views of the chest are submitted. Again seen is extensive scarrin g throughout both lungs, right greater than left. There are new airspa ce opacities in the right middle lobe and left lower lobe suspiciou s for pneumonia. There is no pleural effusion, pneumothorax, or pulmonary vascular congestion. The heart is normal in size. There is degenerative disc disease of the spine. X R/XR chest 2V IMPRESSION: Extensive bilateral lung scarring. New airspace opacities in the right middle lobe and left lower lobe, suspicious for pneumonia. Follow-up is recommended to docum ent resolution. Electronically gurpreet d by: Robbie Rosales MD 12/02/2024 11:50 AM EDT RP Dictated By: Robbie Rosales MD Signed By: <Electronically signed by Robbie Rosales MD in OV> 12/02/24 1150 DD/ 1042 TD/TT: 12/02/24 1052 Immunohematologist: Reason For Referral Reason Urgent Referral Requ est Evaluate and Treat ? Catheter Can not tolerate tamsulosin Diagnosis 1 Benign prostatic hyp erplasia with lower urinary tract symptoms (N40.1) Diagnosis 2 Nocturia (R35.1) Referral Organization Robbie Kothari III, MD Referring Provider First Name Robbie Referring Provider Last Name Saniya Referring Provider Speciality Internal M edicine Referred Provider [facility] er, Urology Referred Provider Specialty Urology General [...] Referral Priority Routine Referral Appointment Date 02/08/2025 Medications Medication SIG (Take, Route, Frequency, Duration) Notes Start Date End Date Status MiraLax 17 GM/SCOOP 1 scoop mixed with 8 ounces of fluid Orally every 2 to 3 days Active guaiFENesin ER 600 MG 1 tablet Oral twice a day As needed Active Azithromycin 500 MG Oral Active Atorvastatin Calcium 10 MG 1 tablet Oral ly at bed time Active Magnesium 400 MG 1 tablet Orally at b ed time Active Immunizations Vaccine Route Administration Date Status Comme nts Tetanus and Diphtheria Toxoids Adsorbed IM Intramuscular 08/01/2014 Administered Influenza IM Intramuscular 07/31/2015 Administered Pneumococcal IM Intramuscular 11/27/2015 Administered Tetanus and Diphtheria Toxoids Adsorbed IM Intramuscular 06/02/2016 Administered Influenza IM Intramuscular 06/12/2016 Administered Influenza no Preserv 3 and > IM Intramuscular 07/14/2017 Administered Influenza no Preserv 3 and > IM Intramuscular 07/13/2019 Administered Influenza, quad IM Intramuscular 06/21/2021 Administered Influenza, quad IM Intramuscular 06/26/2022 Administered Influenza Vaccine Afluria IM Intramuscular 06/02/2024 Admi nistered Social History Tobacco Use: Social History Observation Description Date Details (start date - stop date) Former Smoker NA - NA Sex Assigned At : Social History Observation Description Sex Assigned At Male Tobacco Use/Smoking Question Answer Notes Patient is a former smoker How long has it been since you last smoked? > 10 years Additional Findings: Tobacco Non-User Ex-cigaret te smoker Alcohol Screen Question Answer Notes Did you have a drink containing alcohol in the p ast year? No Points 0 Interpretation Negative Problems Problem Type SNOMED Code ICD Code Onset Dates Problem Status W/U Status Risk Notes Problem 0303315 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 Problem Hyperlipidemia (10094903) Hyperlipidemia (E78.5) Active confirmed Distal cholesterol is stable but his triglycerides are elevated. He will continue on his current diet until he has fully recovered from the stroke. He will continue on his medications. Problem 86653761 Hyponatremia (E87.1) Active confirmed After admission to [facility] he required hypertonic saline and then 1 g of sodium chloride tablets 3 times a day to restore his potassium to normal. He was discharged without this. Blood work with a sodium level will be checked frequently. Problem 993210880 Underweight (R63.6) Active confirmed He has lost ove r 20 pounds since his last visit. His body mass index is 18. We discussed nutrition at length today. 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 He has been told by pulmonary that his infection is making progress. The CT scan of November 29 show stability in the 1.3 cm right upper lobe cavitary leesion. Problem 821977364 Rosacea (L71.9) Active confirmed He was given metronidazole gel. He was instructed in its use. Problem 798684061 Pulmonary nodule (R91.1) Active confirmed This is being observed. No change in his symptoms have been noted. Problem 377165297 Adenoma of ascending colon (D12.2) Active confirmed He will call he r gastroenterologis t to see if additional colonoscopies will be recommended. Problem 59690924 Abdominal hernia without obstruction and without gangrene, recurrence not specified, unspecified hernia type (K46.9) Active confirmed The hernia is n ow asymptomatic and will be observed without treatment. Problem Pneumonia (749341491) Pneumonia (J18.9) Active confirmed He reports coughing at night. His age azithromycin has been increased to once a day from 3 times a week. Chest x-ray has been ordered. His oxygen saturation was 96%. Problem Seizure (18390936) Seizures (R56.9) Active confirmed Just before discharge from an [facility] rehabilitation he was begun on Keppra for periods of unresponsiveness. A repeat CT scan November 18, 2024 showed improvement in the hemorrhage and edema. The Her will be discontinued until the electroencephalog jackie is done. We have requested a repeat visit from [facility] neurology. Problem [id number] Benign prostatic hyperplasia with lower urinary tract symptoms (N40.1) Active confirmed He says he is rising from sleep up to 4 times a night. His tamsulosin waas stopped because of a low blood pressure. It curtis now resumed. He is happy with this level of control. We discussed further lifestyle modifications he can maake to reduce nocturia. Problem 16853769 Sleep apnea in adult (G47.30) Active confirmed He is using t he new CPAP machine without difficulty and is pleased with the results. 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 Problem 53673548 Atrial arrhythmia (I49.8) Active confirmed He was in a normal sinus rhythm today with no abnormalities. He has had no episodes of tachycardia, syncope or palpitations. 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 He was discharged from [...] be seen once a week at least. Vital Signs Heart Rate 94 /min 12/02/2024 Temperature 97.2 degrees Fahrenheit 12/02/2024 Blood pressure diastolic 74 mm Hg 12/02/2024 Height 76 in 12/02/2024 Blood pressure systolic 121 mm Hg 12/02/2024 Weight 151 lbs 12/02/2024 BMI 18.38 kg/m2 12/02/2024 Encounters Encounter Location Date Provider Diagnosis Robbie Kothari III, MD [address] [place] [address] [place] [id number] 01/04/2024 Rbobie Kothair Hyperlipidemia E78.5 ; Abdominal hernia without obstruction and without gangrene, recurrence not specified, unspecified hernia type K46.9 ; Former smoker Z87.891 ; Atrial arrhythmia I49.8 ; Rosacea L71.9 ; Mycobacterial infection, unspecified A31.9 ; Benign prostatic hyperplasia with lower urinary tract symptoms N40.1 and Sleep apnea in adult G47.30 Robbie Kothari III, MD [address] [place] [address] [place] [id number] 04/14/2024 Robbie Kothari Hyperlipidemia E78.5 ; Vertigo R42 ; Tinnitus, left H93.12 ; Former smoker Z87.891 ; Mycobacterial infection, unspecified A31.9 and Atrial arrhythmia I49.8 Robbie Kothari III, MD [address] [place] [address] [place] [address] 04/15/2024 Robbie Kothari Hyperlipidemia E78.5 ; Labyrinthitis, unspecified laterality H83.09 ; Former smoker Z87.891 ; Rosacea L71.9 ; Mycobacterial infection, unspecified A31.9 and Right anterior knee pain M25.561 Robbie Kothari III, MD [address] [place] [address] [place] [address] 04/22/2024 Robbie Kothari Hyperlipidemia E78.5 ; Benign prostatic hyperplasia with lower urinary tract symptoms N40.1 ; Former smoker Z87.891 ; Mycobacterial infection, unspecified A31.9 ; Sleep apnea in adult G47.30 and Labyrinthitis, unspecified laterality H83.09 Robbie Kothari III, MD [address] [place] [address] [place] [address] 06/02/2024 Robbie Kothari Encounter for immunization Z23 Robbie Kothari III, MD [address] [place] [address] [place] [address] 07/25/2024 Robbie Kothari Hyperlipidemia E78.5 ; Mycobacterial infection, unspecified A31.9 ; Benign prostatic hyperplasia with lower urinary tract symptoms N40.1 ; Former smoker Z87.891 ; 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 and Sleep apnea in adult G47.30 Robbie Kothari III, MD [address] [place] [address] [place] [address] 11/21/2024 Robbie Kothari Hyperlipidemia E78.5 ; 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 ; Seizures R56.9 ; Hyponatremia E87.1 ; Former smoker Z87.891 ; Underweight R63.6 ; Anterior subcapsular polar age-related cataract of both eyes H25.033 ; Rosacea L71.9 ; Atrial arrhythmia I49.8 ; Benign prostatic hyperplasia with lower urinary tract symptoms N40.1 ; Mycobacterial infection, unspecified A31.9 and Sleep apnea in adult G47.30 Robbie Kothari III, MD [address] [place] [address] [place] [address] 12/02/2024 Robbie Kothari Hyperlipidemia E78.5 ; 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 ; Pneumonia J18.9 ; Former smoker Z87.891 ; Mycobacterial infection, unspecified A31.9 ; Sleep apnea in adult G47.30 and Benign prostatic hyperplasia with lower urinary tract symptoms N40.1 Robbie Kothari III, MD [address] [place] [address] [place] [address] 10/28/2024 Robbie Kothari III, MD [address] [place] [address] [place] [address] 11/21/2024 Robbie Kothari III, MD [address] [place] [address] [place] [address] 11/21/2024 Robbie Kothari III, MD [address] [place] [address] [address] [place] [address] 11/22/2024 Robbie Kothari III, MD [address] [place] [address] [place] [address] 11/22/2024 Robbie Kothari III, MD [address] [place] [address] [place] [address] 11/25/2024 Robbie Kothari III, MD [address] [place] [address] [place] [address] 11/25/2024 Robbie Kothari III, MD [address] [place] [address] [place] [address] 12/05/2024 Robbie Kothari III, MD [address] [place] [address] [place] [address] 12/14/2024 Robbie Kothari Assessments Encounter Date Diagnosis (ICD Code) Assessment Notes Treatment Notes Treatment Clinical Notes 01/04/2024 Hyperlipidemia (ICD-10 - E78.5) His lipids are well-controlled. He will continue on his current diet and other medications. No change in his regimen is needed today. 01/04/2024 Abdominal hernia without obstruction and without gangrene, recurrence not specified, unspecified hernia type (ICD-10 - K46.9) The hernia is now asymptomatic and will be observed without treatment. 04/14/2024 Hyperlipidemia (ICD-10 - E78.5) His lipids are well-controlled. He will continue on his current diet and other medications. No change in his regimen is needed today. 04/14/2024 Vertigo (ICD-10 - R42) He has had one episode lasting 10 minutes while at rest. Motions of the head today did not reproduce the symptom. He will be observed carefully with frequent telehealth visits. If it recurs I will last neurology to see him and get a CT scan of the brain. 04/15/2024 Hyperlipidemia (ICD-10 - E78.5) His lipids are well-controlled. He will continue on his current diet and other medications. No change in his regimen is needed today. 04/15/2024 Labyrinthitis, unspecified laterality (ICD-10 - H83.09) [place] sound in his sensation of the world going up and down her likely tinnitus and vertigo although the symptoms could not be reproduced today and have not returned. He will be observed closely at this time. 04/22/2024 Hyperlipidemia (ICD-10 - E78.5) His lipids are well-controlled. He will continue on his current diet and other medications. No change in his regimen is needed today. 04/22/2024 Benign prostatic hyperplasia with lower urinary tract symptoms (ICD-10 - N40.1) He rises from sleep once a night on the average to urinate. I have reviewed with him some modifications and lifestyle he could make to reduce this problem. 06/02/2024 Encounter for immunization (ICD-10 - Z23) 07/25/2024 Hyperlipidemia (ICD-10 - E78.5) No recent laboratory data [place]. His lipids have been well controlled. No change was made in his mediication. A fasting lipid profile has been ordered. 07/25/2024 Mycobacterial infection, unspecified (ICD-10 - A31.9) He continues on one antibiotic daily. He is taking azithromycin. He has been told by pulmonary that his infection is making progress. The CT scan of November 29 show stability in the 1.3 cm right upper lobe cavitary leesion. 11/21/2024 Hyperlipidemia (ICD-10 - E78.5) No recent laboratory data [place]. His lipids have been well controlled. No change was made in his mediication. A fasting lipid profile has been ordered. 11/21/2024 Nontraumatic hemorrhage of left cerebral hemisphere (ICD-10 [...] seen once a week at least. 12/02/2024 Hyperlipidemia (ICD-10 - E78.5) Distal cholesterol [...] be seen once a week at least. 01/04/2024 Former smoker (ICD-10 - Z87.891) He has a strategy to prevent relapse in times of stress and illness. 04/14/2024 Tinnitus, left (ICD-10 - H93.12) He will notify me at once if this happens again. 04/15/2024 Former smoker (ICD-10 - Z87.891) He has a strategy to prevent relapse in times of stress and illness. 04/22/2024 Former smoker (ICD-10 - Z87.891) He has a strategy to prevent relapse in times of stress and illness. 07/25/2024 Benign prostatic hyperplasia with lower urinary tract symptoms (ICD-10 - N40.1) He rises from sleep once a night to urinate. He is happy with this level of control. We discussed further lifestyle modifications he can maake to reduce nocturia. 11/21/2024 Seizures (ICD-10 - R56.9) Just before discharge from an [facility] rehabilitation he was begun on Keppra for periods of unresponsiveness. A repeat CT scan November 18, 2024 showed improvement in the hemorrhage and edema. The Her will be discontinued until the electroencephalogram is done. We have requested a repeat visit from [facility] neurology. 12/02/2024 Pneumonia (ICD-10 - J18.9) He reports coughing at night. His age azithromycin has been increased to once a day from 3 times a week. Chest x-ray has been ordered. His oxygen saturation was 96%. 01/04/2024 Atrial arrhythmia (ICD-10 - I49.8) He was in a normal sinus rhythm today with no abnormalities. He has had no episodes of tachycardia, syncope or palpitations. 04/14/2024 Former smoker (ICD-10 - Z87.891) He has a strategy to prevent relapse in times of stress and illness. 04/15/2024 Rosacea (ICD-10 - L71.9) He was given metronidazole gel. He was instructed in its use. 04/22/2024 Mycobacterial infection, unspecified (ICD-10 - A31.9) He continues on one antibiotic daily. He is taking azithromycin. He has been told by pulmonary that his infection is making progress. The CT scan of November 29 show stability in the 1.3 cm right upper lobe cavitary leesion. 07/25/2024 Former smoker (ICD-10 - Z87.891) He has a strategy to prevent relapse in times of stress and illness. 11/21/2024 Hyponatremia (ICD-10 - E87.1) After admission to [facility] he required hypertonic saline and then 1 g of sodium chloride tablets 3 times a day to restore his potassium to normal. He was discharged without this. Blood work with a sodium level will be checked frequently. 12/02/2024 Former smoker (ICD-10 - Z87.891) He has a strategy to prevent relapse in times of stress and illness. 01/04/2024 Rosacea (ICD-10 - L71.9) He was given metronidazole gel. He was instructed in its use. 04/14/2024 Mycobacterial infection, unspecified (ICD-10 - A31.9) He continues on one antibiotic daily. He is taking azithromycin. He has been told by pulmonary that his infection is making progress. The CT scan of November 29 show stability in the 1.3 cm right upper lobe cavitary leesion. 04/15/2024 Mycobacterial infection, unspecified (ICD-10 - A31.9) He continues on one antibiotic daily. He is taking azithromycin. He has been told by pulmonary that his infection is making progress. The CT scan of November 29 show stability in the 1.3 cm right upper lobe cavitary leesion. 04/22/2024 Sleep apnea in adult (ICD-10 - G47.30) He is using the new CPAP machine without difficulty and is pleased with the results. 07/25/2024 Macrocytosis (ICD-10 - D75.89) His main cell volume is now normal at 96 and was elevated on his last determination. This value will be observed. 11/21/2024 Former smoker (ICD-10 - Z87.891) He has a strategy to prevent relapse in times of stress and illness. 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 He has been told by pulmonary that his infection is making progress. The CT scan of November 29 show stability in the 1.3 cm right upper lobe cavitary leesion. 01/04/2024 Mycobacterial infection, unspecified (ICD-10 - A31.9) He continues on one antibiotic daily. He is taking azithromycin. He has been told by pulmonary that his infection is making progress. The CT scan of November 29 show stability in the 1.3 cm right upper lobe cavitary leesion. 04/14/2024 Atrial arrhythmia (ICD-10 - I49.8) He was in a normal sinus rhythm today with no abnormalities. He has had no episodes of tachycardia, syncope or palpitations. 04/15/2024 Right anterior knee pain (ICD-10 - M25.561) There is pain to pressure over the medial tibial plateau. At his request he will be treated with conservative measures of heat rest and ibuprofen. 04/22/2024 Labyrinthitis, unspecified laterality (ICD-10 - H83.09) His symptoms of vertigo and tinnitus have resolved. Observation is in progress. 07/25/2024 Sleep apnea in adult (ICD-10 - G47.30) He is using the new CPAP machine without difficulty and is pleased with the results. 11/21/2024 Underweight (ICD-10 - R63.6) He has lost over 20 pounds since his last visit. His body mass index is 18. We discussed nutrition at length today. 12/02/2024 Sleep apnea in adult (ICD-10 - G47.30) He is using the new CPAP machine without difficulty and is pleased with the results. 01/04/2024 Benign prostatic hyperplasia with lower urinary tract symptoms (ICD-10 - N40.1) 11/21/2024 Anterior subcapsular polar age-related cataract of both eyes (ICD-10 - H25.033) He was given medical clearance for cataract surgery today without restriction. 12/02/2024 Benign prostatic hyperplasia with lower urinary tract symptoms (ICD-10 - N40.1) He says he is rising from sleep up to 4 times a night. His tamsulosin waas stopped because of a low blood pressure. It curtis now resumed. He is happy with this level of control. We discussed further lifestyle modifications he can maake to reduce nocturia. 01/04/2024 Sleep apnea in adult (ICD-10 - G47.30) He is using the new CPAP machine without difficulty and is pleased with the results. 11/21/2024 Rosacea (ICD-10 - L71.9) He was given metronidazole gel. He was instructed in its use. 11/21/2024 Atrial arrhythmia (ICD-10 - I49.8) He was in a normal sinus rhythm today with no abnormalities. He has had no episodes of tachycardia, syncope or palpitations. 11/21/2024 Benign prostatic hyperplasia with lower urinary tract symptoms (ICD-10 - N40.1) He rises from sleep once a night to urinate. He is happy with this level of control. We discussed further lifestyle modifications he can maake to reduce nocturia. 11/21/2024 Mycobacterial infection, unspecified (ICD-10 - A31.9) He continues on one antibiotic daily. He is taking azithromycin. He has been told by pulmonary that his infection is making progress. The CT scan of November 29 show stability in the 1.3 cm right upper lobe cavitary leesion. 11/21/2024 Sleep apnea in adult (ICD-10 - G47.30) He is using the new CPAP machine without difficulty and is pleased with the results. Plan Of Treatment Pending Test Test Name Order Date PROFILE, FASTING (COMPREHENSIVE METABOLI C) 12/10/2022 PROFILE, FASTING (COMPREHENSIVE METABOLI C) 06/06/2021 PROFILE, FASTING (COMPREHENSIVE METABOLI C) 09/10/2022 PROFILE, FASTING (COMPREHENSIVE METABOLI C) 07/22/2023 PROFILE, FASTING (COMPREHENSIVE METABOLI C) 05/01/2020 PROFILE, FASTING (COMPREHENSIVE METABOLI C) 03/06/2021 PROFILE, FASTING (COMPREHENSIVE METABOLI C) 03/18/2023 PROFILE, FASTING (COMPREHENSIVE METABOLI C) 07/25/2024 PROFILE, FASTING (COMPREHENSIVE METABOLI C) 09/18/2020 PROFILE, FASTING (COMPREHENSIVE METABOLI C) 10/08/2021 PROFILE, FASTING (COMPREHENSIVE METABOLI C) 04/22/2024 PROFILE, FASTING (COMPREHENSIVE METABOLI C) 12/05/2020 PROFILE, RANDOM (COMPREHENSIVE METABOLIC ) 01/06/2022 LIPID PANEL 12/05/2020 LIPID PANEL 12/10/2022 LIPID PANEL 06/06/2021 LIPID PANEL 09/10/2022 LIPID PANEL 01/06/2022 LIPID PANEL 05/01/2020 LIPID PANEL 03/18/2023 LIPID PANEL 09/18/2020 PSA, TOTAL 04/22/2024 PSA, TOTAL 09/18/2020 PSA, TOTAL 03/06/2021 PSA, TOTAL 09/10/2022 PSA, TOTAL 01/06/2022 PSA, TOTAL 05/01/2020 PSA, TOTAL 07/25/2024 PSA, TOTAL 03/18/2023 CBC w DIFF 03/18/2023 CBC w DIFF 12/05/2020 CBC w DIFF 09/18/2020 CBC w DIFF 12/10/2022 CBC w DIFF 06/06/2021 CBC w DIFF 03/06/2021 CBC w DIFF 09/10/2022 CBC w DIFF 01/06/2022 CBC w DIFF 05/01/2020 CBC w DIFF 10/08/2021 XR CHEST 2 VIEW PA & LAT 09/24/2020 XR CHEST 2 VIEW PA & LAT 05/03/2019 XR CHEST 2 VIEW PA & LAT 12/02/2024 US LEG LT VENOUS DOPPLER 09/24/2020 Echocardiogram 10/01/2020 Holter Monitor 10/01/2020 Sleep Study - Diagnostic 01/06/2022 EEG 11/21/2024 CBC WITH AUTO DIFF 07/25/2024 CBC WITH AUTO DIFF 04/22/2024 CBC WITH AUTO DIFF 07/22/2023 Lipid Panel 03/06/2021 Lipid Panel 10/08/2021 Lipid Panel 07/25/2024 Lipid Panel 04/22/2024 Lipid Panel 07/22/2023 XR chest 2V 12/02/2024 Next Appt Details Provider Name:Robbie Kothari, 12/19/2024 10:00:00 AM, [address] [facility] [address], [place], [address], Provider Name:Robbie Kothari, 01/04/2025 03:30:00 PM, [address] [facility] [address], [place], [address], Insurance Providers Payer Name Payer Address Payer Phone Subscriber Number Group Number Insured Name Patient Relationship to Insured Coverage Start Date Coverage End Date [employer]age [address] [address] [place] [address] [id number] Freeman King Self - patient is the insured MEDICARE NGS [address] [facility] [address] [id number] Freeman King Self - patient is the insured Medical (General) History Medical History History ICD Code colonic poyps 2002 benign prostatic hyperplasia (BPH) hyperlipidemia left herniorraphy age 30 neck and right shoulder pain 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
--- OUTSIDE RECORDS SUMMARY | 2024-12-16 11:47 | XMS_ITS | Encounter Summary ---
Author Organization [facility] Address [address] [place] [address] Care Team Providers Care Bean Picker Machine Operator Name Role Phone Gloria Preston MD Primary Care Provider [phone] Encounter Details Date Type Department Care Team (Late st Contact Info) Description 11/18/2024 Lab Requisition [facility] - Main Lab 299 [facility] [place] [address] Gloria Preston MD [address] [place] [address] Encounter for other general examination Social History [...] K/mcL LAB HEMETOLOGY METHOD 11/18/2024 4:02 PM [facility] RBC 3.90(L) 4.50 - 5.50 M/mcL LAB HEMETOLOGY METHOD 11/18/2024 4:02 PM [facility] Hemoglobin 12.8(L) 13.5 - 17.5 g/dL LAB HEMETOLOGY METHOD 11/18/2024 4:02 PM [facility] Hematocrit 37.1(L) 42.0 - 54.0 % LAB HEMETOLOGY METHOD 11/18/2024 4:02 PM [facility] MCV 94.2 79.0 - 98.0 FL LAB HEMETOLOGY METHOD 11/18/2024 4:02 PM [facility] MCH 32.5(H) 27.0 - 32.0 pcg LAB HEMETOLOGY METHOD 11/18/2024 4:02 PM [facility] MCHC 34.5 32.0 - 37.0 g/dL LAB HEMETOLOGY METHOD 11/18/2024 4:02 PM [facility] RDW 12.7 11.0 - 15.0 % LAB HEMETOLOGY METHOD 11/18/2024 4:02 PM [facility] Platelets 269 130 - 400 K/mcL LAB HEMETOLOGY METHOD 11/18/2024 4:02 PM [facility] MPV 9.8 7.0 - 11.0 FL LAB HEMETOLOGY METHOD 11/18/2024 4:02 PM [facility] NRBC 0.0 <1.0 % LAB HEMETOLOGY METHOD 11/18/2024 4:02 PM [facility] NRBC Absolute 0.00 <0.10 K/mcL LAB HEMETOLOGY METHOD 11/18/2024 4:02 PM [facility] Neutrophils Relative 70.4 % LAB HEMETOLOGY METHOD 11/18/2024 4:02 PM [facility] Lymphocytes Relative 16.0 % LAB HEMETOLOGY METHOD 11/18/2024 4:02 PM [facility] Monocytes Relative 12.8 % LAB HEMETOLOGY METHOD 11/18/2024 4:02 PM [facility] Eosinophils Relative 0.0 % LAB HEMETOLOGY METHOD 11/18/2024 4:02 PM [facility] Basophils Relative 0.5 % LAB HEMETOLOGY METHOD 11/18/2024 4:02 PM [facility] Immature Granulocytes Relative 0.3 % LAB HEMETOLOGY METHOD 11/18/2024 4:02 PM [facility] Neutrophils Absolute 2.64 1.50 - 7.00 K/mcL LAB HEMETOLOGY METHOD 11/18/2024 4:02 PM [facility] Lymphocytes Absolute 0.60(L) 1.00 - 5.00 K/mcL LAB HEMETOLOGY METHOD 11/18/2024 4:02 PM [facility] Monocytes Absolute 0.48 0.20 - 1.00 K/mcL LAB HEMETOLOGY METHOD 11/18/2024 4:02 PM [facility] Eosinophils Absolute 0.00 0.00 - 0.50 K/mcL LAB HEMETOLOGY METHOD 11/18/2024 4:02 PM [facility] Basophils Absolute 0.02 0.00 - 0.20 K/mcL LAB HEMETOLOGY METHOD 11/18/2024 4:02 PM [facility] Immature Granulocytes Absolute 0.01 0.00 - 0.03 K/mcL LAB HEMETOLOGY METHOD 11/18/2024 4:02 PM EST [facility] Blood Venous blood specimen / Unknown Venipuncture / Unknown 11/18/2024 2:59 PM EST 11/18/2024 3:36 PM EST us Gloria Preston MD LAB BLOOD ORDERABLES Final Resu lt Performing Organization Address [facility]/ZIP Co de Phone Number [facility] [address] [place] [address], [place] [phone] * Prolactin (11/18/2024 2:59 PM EST) Pathologist [facility] Prolactin 12.10 2.50 - 17.40 ng/mL LAB CHEMISTRY METHOD 11/18/2024 7:21 PM EST [facility] Blood Venous blood specimen / Unknown Venipuncture / Unknown 11/18/2024 2:59 PM EST 11/18/2024 3:36 PM EST us Gloria Preston MD LAB BLOOD ORDERABLES Final Resu lt Performing Organization Address [facility]/ZIP Co de Phone Number [facility] [address] [place] [address], [place] [phone] * (ABNORMAL) Magnesium (11/18/2024 2:59 PM EST) [facility] Magnesium 1.6(L) 1.9 - 2.6 mg/dL LAB CHEMISTRY METHOD 11/18/2024 7:07 PM EST [facility] Blood Venous blood specimen / Unknown Venipuncture / Unknown 11/18/2024 2:59 PM EST 11/18/2024 3:36 PM EST us Gloria Preston MD LAB BLOOD ORDERABLES Final Resu lt Performing Organization Address [facility]/ZIP Co de Phone Number [facility] [address] [place] [address], [place] [phone] * (ABNORMAL) Comprehensive metabolic panel (11/18/2024 2:59 PM EST) Sodium 134 133 - 145 mmol/L LAB CHEMISTRY METHOD 11/18/2024 7:21 PM [facility] Potassium 3.9 3.5 - 5.5 mmol/L LAB CHEMISTRY METHOD 11/18/2024 7:21 PM [facility] Chloride 98 96 - 110 mmol/L LAB CHEMISTRY METHOD 11/18/2024 7:21 PM [facility] CO2 27 21 - 32 mmol/L LAB CHEMISTRY METHOD 11/18/2024 7:21 PM [facility] Anion Gap 9 3 - 11 LAB CHEMISTRY METHOD 11/18/2024 7:21 PM [facility] Glucose 96 70 - 100 mg/dL LAB CHEMISTRY METHOD 11/18/2024 7:21 PM [facility] BUN 16 5 - 25 mg/dL LAB CHEMISTRY METHOD 11/18/2024 7:21 PM [facility] Creatinine 0.68(L) 0.70 - 1.30 mg/dL LAB CHEMISTRY METHOD 11/18/2024 7:21 PM [facility] eGFR 92 >=60 mL/min/1. 73m2 LAB CHEMISTRY METHOD 11/18/2024 7:21 PM [facility] Comment:Calculation based on the??Chronic Kidney Disease Epidemiology Collaboration (CKD-EPI) equation refit??without adjustment for race. BUN/Creatinine Ratio 23.5 LAB CHEMISTRY METHOD 11/18/2024 7:21 PM [facility] Calcium 8.8 8.5 - 10.5 mg/dL LAB CHEMISTRY METHOD 11/18/2024 7:21 PM [facility] AST (SGOT) 25 10 - 42 unit/L LAB CHEMISTRY METHOD 11/18/2024 7:21 PM [facility] ALT (SGPT) 22 10 - 60 unit/L LAB CHEMISTRY METHOD 11/18/2024 7:21 PM EST [facility] Alkaline Phosphatase 89 42 - 121 unit/L LAB CHEMISTRY METHOD 11/18/2024 7:21 PM EST [facility] Total Protein 6.5 6.0 - 8.0 g/dL LAB CHEMISTRY METHOD 11/18/2024 7:21 PM [facility] Albumin 2.8(L) 3.2 - 5.0 g/dL LAB CHEMISTRY METHOD 11/18/2024 7:21 PM [facility] Total Bilirubin 0.3 0.0 - 1.4 mg/dL LAB CHEMISTRY METHOD 11/18/2024 7:21 PM [facility] Blood Venous blood specimen / Unknown Venipuncture / Unknown 11/18/2024 2:59 PM EST 11/18/2024 3:36 PM EST us Gloria Preston MD LAB BLOOD ORDERABLES Final Resu lt [facility] [address] [place] [address], [place] [phone] documented in this encounter Visit Diagnoses Diagnosis Encounter for other general examination documented in this encounter Care Teams Bean Picker Machine Operator Relationship Specialty Start Date End Date Gloria Preston MD [address] [place] [address] PCP - General Hospitalist Medicine 11/05/24 documented as of this encounter
--- OUTSIDE RECORDS SUMMARY | 2024-12-16 11:47 | XMS_ITS | Clinical Summary ---
Author Organization [facility] Address [address] [address] Phone Care Team Providers Care Band Salvager Name Role Phone Unavailable Primary Care Provider [...] Office Visit [facility] [address] [place] [address] Anurag John MD [address] [address] Health Maintenance Due Date Last Done Comments Pneumococcal Vaccine: 65+ Ye ars (1 of 2 - PCV) 02/20/1946 Influenza Vaccine (Season Ended) 2025 Hepatitis B Vaccine Aged Out No longe r eligible based on patient's age to complete [place] [id number] [facility]
--- OUTSIDE RECORDS SUMMARY | 2024-12-16 11:47 | XMS_ITS | Encounter Summary ---
Author Organization [facility] Address [address] [place] [address] Care Team Providers Care Coal Loader Name Role Phone Gloria Preston MD Primary Care Provider [phone] Encounter Details Date Type Department Care Team (Late st Contact Info) Description 11/10/[address] [facility] - Main Lab 299 [facility] [place] [address] Gloria Preston MD [address] [place] [address] Encounter for other general examination Social History [...] * Vitamin B12 (11/10/2024 6:06 AM EST) [facility] Vitamin B-12 413 250 - 900 pcg/mL LAB CHEMISTRY METHOD 11/10/2024 9:28 PM EST [facility] Blood Venous blood specimen / Unknown Venipuncture / Unknown 11/10/2024 6:06 AM EST 11/10/2024 8:03 AM EST Gloria Preston MD LAB BLOOD ORDERABLES Final Resu lt Performing Organization Address [facility]/ZIP Co de Phone Number [facility] [address] [place] [address], [place] [phone] * Thyroid stimulating hormone (11/10/2024 6:06 AM EST) [facility] TSH 1.57 0.40 - 4.00 mcIU/mL LAB CHEMISTRY METHOD 11/10/2024 9:51 PM EST [facility] Blood Venous blood specimen / Unknown Venipuncture / Unknown 11/10/2024 6:06 AM EST 11/10/2024 8:03 AM EST Gloria Preston MD LAB BLOOD ORDERABLES Final Resu lt [facility] [address] [place] [address], [place] [phone] * (ABNORMAL) CBC auto differential (11/10/2024 6:06 AM EST) [facility] WBC 6.0 4.8 - 10.8 K/[facility] LAB HEMETOLOGY METHOD 11/10/2024 8:44 AM EST [facility] RBC 3.80(L) 4.50 - 5.50 M/[facility] LAB HEMETOLOGY METHOD 11/10/2024 8:44 AM [facility] Hemoglobin 12.4(L) 13.5 - 17.5 g/dL LAB HEMETOLOGY METHOD 11/10/2024 8:44 AM [facility] Hematocrit 36.7(L) 42.0 - 54.0 % LAB HEMETOLOGY METHOD 11/10/2024 8:44 AM [facility] MCV 95.6 79.0 - 98.0 FL LAB HEMETOLOGY METHOD 11/10/2024 8:44 AM [facility] MCH 32.3(H) 27.0 - 32.0 pcg LAB HEMETOLOGY METHOD 11/10/2024 8:44 AM [facility] MCHC 33.8 32.0 - 37.0 g/dL LAB HEMETOLOGY METHOD 11/10/2024 8:44 AM [facility] RDW 12.8 11.0 - 15.0 % LAB HEMETOLOGY METHOD 11/10/2024 8:44 AM [facility] Platelets 337 130 - 400 K/mcL LAB HEMETOLOGY METHOD 11/10/2024 8:44 AM [facility] MPV 9.8 7.0 - 11.0 FL LAB HEMETOLOGY METHOD 11/10/2024 8:44 AM [facility] NRBC 0.0 <1.0 % LAB HEMETOLOGY METHOD 11/10/2024 8:44 AM [facility] NRBC Absolute 0.00 <0.10 K/mcL LAB HEMETOLOGY METHOD 11/10/2024 8:44 AM [facility] Neutrophils Relative 72.1 % LAB HEMETOLOGY METHOD 11/10/2024 8:44 AM [facility] Lymphocytes Relative 14.8 % LAB HEMETOLOGY METHOD 11/10/2024 8:44 AM [facility] Monocytes Relative 9.9 % LAB HEMETOLOGY METHOD 11/10/2024 8:44 AM EST [facility] Eosinophils Relative 1.5 % LAB HEMETOLOGY METHOD 11/10/2024 8:44 AM [facility] Basophils Relative 1.2 % LAB HEMETOLOGY METHOD 11/10/2024 8:44 AM [facility] Immature Granulocytes Relative 0.5 % LAB HEMETOLOGY METHOD 11/10/2024 8:44 AM EST [facility] Neutrophils Absolute 4.29 1.50 - 7.00 K/mcL LAB HEMETOLOGY METHOD 11/10/2024 8:44 AM [facility] Lymphocytes Absolute 0.88(L) 1.00 - 5.00 K/mcL LAB HEMETOLOGY METHOD 11/10/2024 8:44 AM [facility] Monocytes Absolute 0.59 0.20 - 1.00 K/mcL LAB HEMETOLOGY METHOD 11/10/2024 8:44 AM [facility] Eosinophils Absolute 0.09 0.00 - 0.50 K/mcL LAB HEMETOLOGY METHOD 11/10/2024 8:44 AM [facility] Basophils Absolute 0.07 0.00 - 0.20 K/mcL LAB HEMETOLOGY METHOD 11/10/2024 8:44 AM [facility] Immature Granulocytes Absolute 0.03 0.00 - 0.03 K/mcL LAB HEMETOLOGY METHOD 11/10/2024 8:44 AM [facility] Blood Venous blood specimen / Unknown Venipuncture / Unknown 11/10/2024 6:06 AM EST 11/10/2024 8:03 AM EST us Gloria Preston MD LAB BLOOD ORDERABLES Final Resu lt [facility] [address] [place] [address], [place] [phone] * Magnesium (11/10/2024 6:06 AM EST) Pathologist [facility] Magnesium 2.0 1.9 - 2.6 mg/dL LAB CHEMISTRY METHOD 11/10/2024 9:04 AM [facility] Blood Venous blood specimen / Unknown Venipuncture / Unknown 11/10/2024 6:06 AM EST 11/10/2024 8:03 AM EST us Gloria Preston MD LAB BLOOD ORDERABLES Final Resu lt [facility] [address] [place] [address], [place] [phone] * (ABNORMAL) Basic metabolic panel (11/10/2024 6:06 AM EST) Pathologist [facility] Sodium 136 133 - 145 mmol/L LAB CHEMISTRY METHOD 11/10/2024 9:04 AM [facility] Potassium 4.3 3.5 - 5.5 mmol/L LAB CHEMISTRY METHOD 11/10/2024 9:04 AM [facility] Chloride 103 96 - 110 mmol/L LAB CHEMISTRY METHOD 11/10/2024 9:04 AM [facility] CO2 25 21 - 32 mmol/L LAB CHEMISTRY METHOD 11/10/2024 9:04 AM [facility] Anion Gap 8 3 - 11 LAB CHEMISTRY METHOD 11/10/2024 9:04 AM [facility] Glucose 94 70 - 100 mg/dL LAB CHEMISTRY METHOD 11/10/2024 9:04 AM [facility] BUN 22 5 - 25 mg/dL LAB CHEMISTRY METHOD 11/10/2024 9:04 AM [facility] Creatinine 0.54(L) 0.70 - 1.30 mg/dL LAB CHEMISTRY METHOD 11/10/2024 9:04 AM EST [facility] eGFR 98 >=60 mL/min/1. 73m2 LAB CHEMISTRY METHOD 11/10/2024 9:04 AM [facility] Comment:Calculation based on the??Chronic Kidney Disease Epidemiology Collaboration (CKD-EPI) equation refit??without adjustment for race. BUN/Creatinine Ratio 40.7 LAB CHEMISTRY METHOD 11/10/2024 9:04 AM [facility] Calcium 9.1 8.5 - 10.5 mg/dL LAB CHEMISTRY METHOD 11/10/2024 9:04 AM [facility] Blood Venous blood specimen / Unknown Venipuncture / Unknown 11/10/2024 6:06 AM EST 11/10/2024 8:03 AM EST us Gloria Preston MD LAB BLOOD ORDERABLES Final Resu lt [facility] [address] [place] [address], documented in this encounter Visit Diagnoses Diagnosis Encounter for other general examination documented in this encounter Care Teams Coal Loader Relationship Specialty Start Date End Date Gloria Preston MD [address] [place] [address] PCP - General Hospitalist Medicine 11/05/24 documented as of this encounter
[2024-12-16 12:52] LABS: Anion Gap 12 (12-20); Blood Urea Nitrogen 14 mg/dL (9-16); Calcium 9.8 mg/dL (8.4-10.2); Carbon Dioxide 31 mmol/L (22-29); Chloride 97 mmol/L (96-108); Estimated Glomerular Filt Rate > 60; Glucose Random 84 mg/dL (60-115); Magnesium 1.8 mg/dL (1.6-2.6); Potassium 3.9 mmol/L (3.3-5.1); Sodium 136 mmol/L (135-145)
== END 2024-12-16 09:37 | disposition home or self-care (01) ==
LOC: HO.XRAY 09:36
PROVIDERS: PCP Internal Medicine Medical Oncology; Visit Provider Hospitalist
DX: J47.9 Bronchiectasis, uncomplicated (principal); J41.0 Simple chronic bronchitis; A31.9 Mycobacterial infection, unspecified; R91.8 Other nonspecific abnormal finding of lung field
CPT/HCPCS: 36415; 71046; 80048; 83735; 85025; 99212

== ENCOUNTER → 2024-12-16 10:48 | Outpatient (BNV) | payer MEDICARE, SELFPAY | PROVIDERS: PCP Internal Medicine Medical Oncology; Visit Provider Radiology Diagnostic Radiology | DX: J84.9 Interstitial pulmonary disease, unspecified (principal) | CPT/HCPCS: 71046 ==

== ENCOUNTER 2024-12-29 08:57 | Outpatient (REF) | payer MEDICARE, SELFPAY ==
[2024-12-29 09:09] LABS: MANUAL DIFF FLAG NO
--- OUTSIDE RECORDS SUMMARY | 2024-12-29 09:48 | XMS_ITS | Encounter Summary ---
Author Organization [facility] Address [address] [place] [address] Care Team Providers Care Russian Teacher Name Role Phone Gloria Preston MD Primary Care Provider [phone] Encounter Details Date Type Department Care Team (Late st Contact Info) Description 11/05/2024 Lab Requisition [facility] - Main Lab 299 [facility] [place] [place] [address] Gloria Preston MD [address] [place] [address] Encounter for other general examination Social History [...] CBC auto differential (11/05/2024 5:51 AM EST) [facility] WBC 8.0 4.8 - 10.8 K/mcL LAB HEMETOLOGY METHOD 11/05/2024 11:21 AM [facility] RBC 4.20(L) 4.50 - 5.50 M/mcL LAB HEMETOLOGY METHOD 11/05/2024 11:21 AM [facility] Hemoglobin 13.8 13.5 - 17.5 g/dL LAB HEMETOLOGY METHOD 11/05/2024 11:21 AM [facility] Hematocrit 39.6(L) 42.0 - 54.0 % LAB HEMETOLOGY METHOD 11/05/2024 11:21 AM [facility] MCV 94.7 79.0 - 98.0 FL LAB HEMETOLOGY METHOD 11/05/2024 11:21 AM [facility] MCH 33.0(H) 27.0 - 32.0 pcg LAB HEMETOLOGY METHOD 11/05/2024 11:21 AM [facility] MCHC 34.8 32.0 - 37.0 g/dL LAB HEMETOLOGY METHOD 11/05/2024 11:21 AM [facility] RDW 12.7 11.0 - 15.0 % LAB HEMETOLOGY METHOD 11/05/2024 11:21 AM [facility] Platelets 261 130 - 400 K/mcL LAB HEMETOLOGY METHOD 11/05/2024 11:21 AM [facility] MPV 10.4 7.0 - 11.0 FL LAB HEMETOLOGY METHOD 11/05/2024 11:21 AM [facility] NRBC 0.0 <1.0 % LAB HEMETOLOGY METHOD 11/05/2024 11:21 AM [facility] NRBC Absolute 0.00 <0.10 K/mcL LAB HEMETOLOGY METHOD 11/05/2024 11:21 AM [facility] Neutrophils Relative 73.3 % LAB HEMETOLOGY METHOD 11/05/2024 11:21 AM [facility] Lymphocytes Relative 10.6 % LAB HEMETOLOGY METHOD 11/05/2024 11:21 AM [facility] Monocytes Relative 14.7 % LAB HEMETOLOGY METHOD 11/05/2024 11:21 AM [facility] Eosinophils Relative 0.4 % LAB HEMETOLOGY METHOD 11/05/2024 11:21 AM [facility] Basophils Relative 0.6 % LAB HEMETOLOGY METHOD 11/05/2024 11:21 AM [facility] Immature Granulocytes Relative 0.4 % LAB HEMETOLOGY METHOD 11/05/2024 11:21 AM [facility] Neutrophils Absolute 5.87 1.50 - 7.00 K/mcL LAB HEMETOLOGY METHOD 11/05/2024 11:21 AM [facility] Lymphocytes Absolute 0.85(L) 1.00 - 5.00 K/mcL LAB HEMETOLOGY METHOD 11/05/2024 11:21 AM [facility] Monocytes Absolute 1.18(H) 0.20 - 1.00 K/mcL LAB HEMETOLOGY METHOD 11/05/2024 11:21 AM [facility] Eosinophils Absolute 0.03 0.00 - 0.50 K/mcL LAB HEMETOLOGY METHOD 11/05/2024 11:21 AM [facility] Basophils Absolute 0.05 0.00 - 0.20 K/mcL LAB HEMETOLOGY METHOD 11/05/2024 11:21 AM [facility] Immature Granulocytes Absolute 0.03 0.00 - 0.03 K/mcL LAB HEMETOLOGY METHOD 11/05/2024 11:21 AM [facility] Blood Venous blood specimen / Unknown Venipuncture / Unknown 11/05/2024 5:51 AM EST 11/05/2024 9:43 AM EST us Gloria Preston MD LAB BLOOD ORDERABLES Final Resu lt [facility] [address] [place] [address], [place] [phone] * Magnesium (11/05/2024 5:51 AM EST) [facility] Magnesium 2.0 1.9 - 2.6 mg/dL LAB CHEMISTRY METHOD 11/05/2024 11:42 AM EST [facility] Blood Venous blood specimen / Unknown Venipuncture / Unknown 11/05/2024 5:51 AM EST 11/05/2024 9:43 AM EST us Gloria Preston MD LAB BLOOD ORDERABLES Final Resu lt Performing Organization Address City/[facility]/ZIP Co de Phone Number [facility] [address] [place] [address], [place] [phone] * (ABNORMAL) Comprehensive metabolic panel (11/05/2024 5:51 AM EST) [facility] Sodium 133 133 - 145 mmol/L LAB CHEMISTRY METHOD 11/05/2024 11:44 AM [facility] Potassium 4.1 3.5 - 5.5 mmol/L LAB CHEMISTRY METHOD 11/05/2024 11:44 AM [facility] Chloride 99 96 - 110 mmol/L LAB CHEMISTRY METHOD 11/05/2024 11:44 AM [facility] CO2 24 21 - 32 mmol/L LAB CHEMISTRY METHOD 11/05/2024 11:44 AM [facility] Anion Gap 10 3 - 11 LAB CHEMISTRY METHOD 11/05/2024 11:44 AM [facility] Glucose 92 70 - 100 mg/dL LAB CHEMISTRY METHOD 11/05/2024 11:44 AM [facility] BUN 18 5 - 25 mg/dL LAB CHEMISTRY METHOD 11/05/2024 11:44 AM [facility] Creatinine 0.54(L) 0.70 - 1.30 mg/dL LAB CHEMISTRY METHOD 11/05/2024 11:44 AM [facility] eGFR 98 >=60 mL/min/1. 73m2 LAB CHEMISTRY METHOD 11/05/2024 11:44 AM [facility] Comment:Calculation based on the??Chronic Kidney Disease Epidemiology Collaboration (CKD-EPI) equation refit??without adjustment for race. BUN/Creatinine Ratio 33.3 LAB CHEMISTRY METHOD 11/05/2024 11:44 AM [facility] Calcium 9.0 8.5 - 10.5 mg/dL LAB CHEMISTRY METHOD 11/05/2024 11:44 AM [facility] AST (SGOT) 17 10 - 42 unit/L LAB CHEMISTRY METHOD 11/05/2024 11:44 AM [facility] ALT (SGPT) 19 10 - 60 unit/L LAB CHEMISTRY METHOD 11/05/2024 11:44 AM [facility] Alkaline Phosphatase 83 42 - 121 unit/L LAB CHEMISTRY METHOD 11/05/2024 11:44 AM [facility] Total Protein 6.6 6.0 - 8.0 g/dL LAB CHEMISTRY METHOD 11/05/2024 11:44 AM [facility] Albumin 2.8(L) 3.2 - 5.0 g/dL LAB CHEMISTRY METHOD 11/05/2024 11:44 AM [facility] Total Bilirubin 1.1 0.0 - 1.4 mg/dL LAB CHEMISTRY METHOD 11/05/2024 11:44 AM [facility] Blood Venous blood specimen / Unknown Venipuncture / Unknown 11/05/2024 5:51 AM EST 11/05/2024 9:43 AM EST us Gloria Preston MD LAB BLOOD ORDERABLES Final Resu lt [facility] ([facility] [address] [place] [address], documented in this encounter Visit Diagnoses Diagnosis Encounter for other general examination documented in this encounter Care Teams Russian Teacher Relationship Specialty Start Date End Date Gloria Preston MD [address] [place] [phone] PCP - General Hospitalist Medicine 11/05/24 documented as of this encounter
--- OUTSIDE RECORDS SUMMARY | 2024-12-29 09:48 | XMS_ITS ---
Author Organization Robbie Kothari III, MD Address [address] [place] [address] [place] [address] Care Team Providers Care Account Analyst Name Role Phone Robbie Kothari Primary Care Provider [phone] REASON FOR VISIT Verbal Orders PT Social History Sex Assigned At : Social History Observation Description Sex Assigned At Male Encounters Encounter Location Date Provider Diagnosis Robbie Kothari III, MD [address] [place] [address] [place] [address] 12/14/2024 Robbie Kothari Plan Of Treatment Next Appt Details Provider Name:Robbie Kothari, 01/04/2025 03:30:00 PM, [address] [place] [address] [place], [address], Progress Notes * Freeman ROCHADOB: [birth year] (84 yo M)Acc No.[id number]:12/14/2024 Patient:?Freeman ROCHA :1940???Age:84 Y???Sex:Male Address:[place] [address] * true * Date:? Generated for Printi ng/Faabigailg/eTransmitting on:?12/29/2024 09:48 AM EDT
--- OUTSIDE RECORDS SUMMARY | 2024-12-29 09:48 | XMS_ITS | Clinical Summary ---
Author Organization [facility] Address [address] [address] Phone Care Team Providers Care Watch Parts Inspector Name Role Phone Unavailable Primary Care Provider [...] Office Visit [facility] [address] [place] [address] Anurag John MD [address] [address] Health Maintenance Due Date Last Done Comments Pneumococcal Vaccine: 50+ Ye ars (1 of 2 - PCV) 02/20/1959 Influenza Vaccine (Season Ended) 2025 Hepatitis B Vaccine Aged Out No longe r eligible based on patient's age to complete [place] [address] [facility] [place] [address]
--- OUTSIDE RECORDS SUMMARY | 2024-12-29 09:48 | XMS_ITS ---
Author Organization Robbie Kothari III, MD Address [address] [place] [address] [place] [address] Care Team Providers Care Thermoscrew Operator Name Role Phone Robbie Kothari Primary Care Provider [phone] REASON FOR VISIT Needs call back from Social History Sex Assigned At : Social History Observation Description Sex Assigned At Male Encounters Encounter Location Date Provider Diagnosis Robbie Kothari III, MD [address] [place] [address] [place] [address] 12/20/2024 Robbie Kothari Plan Of Treatment Next Appt Details Provider Name:Robbie Kothari, 01/04/2025 03:30:00 PM, [address] [place] [address] [place], [address], Progress Notes * Freeman ROCHADOB: [birth year] (84 yo M)Acc No.[id number]:12/20/2024 Patient:?Freeman ROCHA :1940???Age:84 Y???Sex:Male Address:[place] [address] * true * Date:? Generated for Printi ng/Faxing/eTransmitting on:?12/29/2024 09:47 AM EDT
--- OUTSIDE RECORDS SUMMARY | 2024-12-29 09:48 | XMS_ITS | Continuity of Care Document ---
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 Role Phone Saniya GARG, Robbie Thompson Primary Care Physician [phone] Encounter [facility] Date(s): 11/25/24 - 12/25/24 [facility] [address] [facility] 3rd Floor, [address] [place] [id number] Encounter Type: Triage Allergies, Adverse Reactions, Alerts Substance Criticality Severity Reaction Reaction Severity Status Neosporin Active Latex Active Immunizations Given and Recorded Vaccine Date Status Refusal Reason SARS-CoV-2 (COVID-19) mRNA BNT-162b2 vac 11/05/20 Given Medications Albuterol 0.083% inhalation truong 2.5 mg, 3, mL, BAND Nebulizer, Daily, PRN, Refills 0, Maintenance, Wheezing/Shortness of Breath, 11/04/24 1:39:00 PM EST, Inhalation Solution Start Date: 11/04/24 Status: Ordered Repeat number: 1 amLODIPine 10 mg oral tablet 10 mg, By Mouth, Daily, Refills 0, Maintenance, 11/04/24 1:39:00 PM EST, Partial fill upon patient request if the prescription is for a schedule II opioid drug. Start Date: 11/04/24 Status: Ordered Repeat number: 1 Colace sodium 100 mg oral capsule 100 mg, 1, capsule, By Mouth, 2 times a day, Refills 0, Maintenance, 11/04/24 1:39:00 PM EST, Partial fill upon patient request if the prescription is for a schedule II opioid drug. Start Date: 11/04/24 Status: Ordered Repeat number: 1 Lipitor 10 mg oral tablet 1 tablet = 10 mg, By Mouth, Daily at bedtime, 0 Refills, Maintenance, 06/14/13 8:53:33 AM EDT Start Date: 06/14/13 Status: Ordered Repeat number: 1 MiraLax Powder 1 pack/packet = 17 Gm, By Mouth, Daily, PRN Constipation, 0 Refills, Maintenance, 11/04/24 1:40:00 PM EST, Powder, Partial fill upon patient request if the prescription is for a schedule II opioid drug. Start Date: 11/04/24 Status: Ordered Repeat number: 1 Senna 8.6 mg oral tablet 8.6 mg, 1, tablet, By Mouth, Daily at bedtime, Refills 0, Maintenance, 11/04/24 1:39:00 PM EST, Tablet, Partial fill upon patient request if the prescription is for a schedule II opioid drug. Start Date: 11/04/24 Status: Ordered Repeat number: 1 Sodium Chloride 1000 mg oral tablet = 2 Gm, By Mouth, 3 times a day, Continue until Sodium 135-137 and stable, 0 Refills, Maintenance, 11/04/24 1:39:00 PM EST, Tablet, Partial fill upon patient request if the prescription is for a schedule II opioid drug. Start Date: 11/04/24 Status: Ordered Repeat number: 1 tamsulosin 0.4 mg oral capsule 0.4 mg, By Mouth, Daily in AM, Refills 0, Maintenance, 11/04/24 1:39:00 PM EST, Partial fill upon patient request if the prescription is for a schedule II opioid drug. Start Date: 11/04/24 Status: Ordered Repeat number: 1 Social History Social History Type Response Smoking Status Former smoker entered on: 06/13/15 Sex Sex Representation Male (finding) Patient Care team information Care Team Personnel Name: Angelica Castellon RN Position: [facility] RN Member Role: Primary Care Nurse Name: Robbie Kothari MD Position: [facility] Physician - Oncology Member Role: PCP Address: [address] [place] [address] [address] Robbie Reyna, [place] [phone]- Telecom: Name: Silvestre Lopes RN Position: S RN Member Role: Primary Care Nurse Name: Adore Ochoa RN Position: [facility] RN Member Role: Primary Care Nurse Name: Aliya Seth RN Position: [facility] RN Member Role: Primary Care Nurse Name: Darell Dupont RN Position: [facility] RN Member Role: Primary Care Nurse Name: Los Christianson RN Position: [facility] RN Member Role: Primary Care Nurse Name: Brenda Mcmullen RN Position: [facility] RN Member Role: Primary Care Nurse Care Team Related Persons Name: PAMELA ROCHAA Insurance Providers Guarantor name: VAZQUEZ ROCHA Health Plan Information #: 1 Payer: [facility] [employer] PPO Member Number: NA Policy Number: NA Group Number: NA Health Plan Information #: 2 Payer: [employer] GAXIOLA SUP Member Number: NA Policy Number: NA Group Number: NA
--- OUTSIDE RECORDS SUMMARY | 2024-12-29 09:48 | XMS_ITS | Patient Health Record ---
Author Organization Robbie Kothari III, MD Address [address] [place] [place] [address] Care Team Providers Care Teacher Theater Arts Name Role Phone Robbie Kothari Primary Care Provider Allergies Allergen (clinical drug ingredient) Drug/Non Drug Allergy documented on EMR Reaction Allergy Type Onset Date Status No Known Drug Allergy Unknown Drug Allergy Active Results Component Value Reference Range Notes Hold Lt Blue - Possible Coag Reviewed date:10/30/2024 09:55:19 AM Interpretation: Performing Lab:[facility], [address] [place] [phone] Notes/Report: Hold Lt Blue - Possible Coag SEE NOTE Specimen will be held untested for 4 hours. Call Hematology if testing is desired. Comprehensive Met. Panel Reviewed date:10/30/2024 09:55:19 AM Interpretation: Performing Lab:[facility], [address] [place] [phone] Notes/Report: Sodium 131 135-145 mmol/L Potassium 4.2 [...] Magnesium Reviewed date:10/30/2024 09:55:19 AM Interpretation: Performing Lab:[facility], [address] [place] [address] Notes/Report: Magnesium 1.5 1.6-2.6 mg/dL Troponin-I High Sensitivity Reviewed date:10/30/2024 09:55:19 AM Interpretation: Performing Lab:[facility], [address] [place] [phone] Notes/Report: Troponin-I High Sensitivity 3.1 <3.5-35.0 ng/L The [facility] high sensitivity Troponin-I results should be used in conjunction with other diagnostic information such as ECG, clinical observations and information, and patient symptoms to aid in the diagnosis of MO. SARS-CoV2/FLU/RSV Reviewed date:10/30/2024 09:55:19 AM Interpretation: Performing Lab:[facility], [address] [place] [phone] Notes/Report: Influenza A PCR NEGATIVE Negative Influenza [...] by authorized laboratories. Testing performed on the [employer] GeneXpert utilizing real-time RT-PCR. All SARS CoV2 and positive influenza A/B results are reported to [facility]. CT head for stroke Reviewed date:10/30/2024 09:55:19 AM Interpretation: Performing Lab: Notes/Report: [address] [address] [address] Scan Report Signed Patient: Freeman King MR#: [id number] [birth year] : 1940 Acct:[id number] Age/Sex: 84 / M ADM Date: 10/27/24 Loc: HO.ED Attending Dr: Ordering Physician: Alejandrina Mazariegos Date of Service: 10/27/24 Procedure(s): CT head for STROKE Accession Number(s): [id number] cc: Robbei Kothari MD; Alejandrina Mazariegos Report Number: [id number]: Total DLP = 799.00 mGy-cm EXAMINATION: CT [...] lobe. There is resultant mass effect and fjfb-mf-lfdzl midline shift of 3 mm. There is [...] atrium. 3. There is 3 mm of iomv-mf-bxvtb midline shift. No impending herniation at this time. This critical result was discussed with Alejandrina Mazariegos at 12:11 PM, on 10/27/2024 via phone call. Electronically signed by: Zohaib Brown MD 10/27/2024 12:14 PM [facility] Dictated By: Zohaib Brown MD Signed By: <Electronically signed by Zohaib Brown MD in OV> 10/27/24 1214 DD/ 1148 TD/TT: 10/27/24 1156 Datawarehouse Developer: [place] [address] [address] Scan Report Signed Patient: Jeremiah King MR#: [id number] [birth year] : 1940 Acct:[id number] Age/Sex: 84 / M ADM Date: 10/27/24 Loc: HO.ED Attending Dr: Ordering Physician: Alejandrina Mazariegos Date of Service: 10/27/24 Procedure(s): CT hea d for STROKE Accession Number(s): [id number] cc: Robbie Kothari MD; Alejandrina Mazariegos Report [...] There is resultant m ass effect and pnzc-fo-poqnz midline shift of 3 mm. There is [...] atrium. 3. There is 3 mm of cmtn-ty-zbeqc midline shift. No impending herniation at this time. This critical result was discussed with Alejandrina Mazariegos at 12:11 PM, on 10/27/2024 via phone call. Electronically gurpreet d by: Zohaib Brown MD 10/27/2024 12:14 PM [facility] Dictated By: Zohaib Brown MD Signed By: <Electronically signed by Zohaib Brown MD in OV> 10/27/24 1214 DD/ 1148 TD/TT: 10/27/24 1156 Datawarehouse Developer: CT cervical spine wo con Reviewed date:10/30/2024 09:55:19 AM Interpretation: Performing Lab: Notes/Report: [address] [address] [address] Scan Report Signed Patient: Freeman King MR#: [id number] [birth year] : 1940 Acct:[id number] Age/Sex: 84 / M ADM Date: 10/27/24 Loc: .ED Attending Dr: Ordering Physician: Alejandrina Mazariegos Date of Service: 10/27/24 Procedure(s): CT cervical spine wo IV con Accession Number(s): [id number] cc: Robbie Kothari MD; Alejandrina Mazariegos Report Number: [id number]: Total DLP = 376.00 mGy-cm EXAMINATION: CT [...] by: Zohaib Brown MD 10/27/2024 02:23 PM [facility] Dictated By: Zohaib Brown MD Signed By: <Electronically signed by Zohaib Brown MD in OV> 10/27/24 1423 DD/ 1212 TD/TT: 10/27/24 1334 Datawarehouse Developer: [place] [address] [place] Scan Report Signed Patient: Jeremiah King MR#: [id number] [birth year] : 1940 Acct:[id number] Age/Sex: 84 / M ADM Date: 10/27/24 Loc: HO.ED Attending Dr: Ordering Physician: Alejandrina Mazariegos Date of Service: 10/27/24 Procedure(s): CT cer vical spine wo IV con Accession Number(s): [id number] cc: Robbie Kothari MD; Alejandrina Mazariegos Report [...] by: Zohaib Brown MD 10/27/2024 02:23 PM [facility] Dictated By: Zohaib Brown MD Signed By: <Electronically signed by Zohaib Brown MD in OV> 10/27/24 1423 DD/ 1212 TD/TT: 10/27/24 1334 Datawarehouse Developer: XR chest 1V Reviewed date:10/30/2024 09:55:19 AM Interpretation: Performing Lab: Notes/Report: [address] [address] XRay Report Signed Patient: Freeman King MR#: [id number] [birth year] : 1940 Acct:[id number] Age/Sex: 84 / M ADM Date: 10/27/24 Loc: HO.ED Attending Dr: Ordering Physician: Alejandrina Mazariegos Date of Service: 10/27/24 Procedure(s): XR chest 1V Accession Number(s): [id number] cc: Robbie Kothari MD; Alejandrina Mazariegos EXAMINATION: [...] by: Zohaib Brown MD 10/27/2024 01:41 PM [facility] Dictated By: Zohaib Brown MD Signed By: <Electronically signed by Zohaib Brown MD in OV> 10/27/24 1341 DD/ 1127 TD/TT: 10/27/24 1328 Datawarehouse Developer: [address] [address] XRay Report Signed Patient: Jeremiah King MR#: [id number] [birth year] : 1940 Acct:[id number] Age/Sex: 84 / M ADM Date: 10/27/24 Loc: HO.ED Attending Dr: Ordering Physician: Alejandrina Mazariegos Date of Service: 10/27/24 Procedure(s): XR chest 1V Accession Number(s): [id number] cc: Robbie Kothari MD; Alejandrina Mazariegos EXAMINATION: [...] by: Zohaib Brown MD 10/27/2024 01:41 PM [facility] Dictated By: Zohaib Brown MD Signed By: <Electronically signed by Zohaib Bronw MD in OV> 10/27/24 1341 DD/ 1127 TD/TT: 10/27/24 1328 Datawarehouse Developer: XR chest 2V Reviewed date:12/16/2024 03:30:40 PM Interpretation: Performing Lab: Notes/Report: [address] [address] XRay Report Signed Patient: Freeman King MR#: [id number] [birth year] : 1940 Acct:[id number] Age/Sex: 84 / M ADM Date: 12/02/24 Loc: HO.XRAY Attending Dr: Robbie Kothari MD Ordering Physician: Denilson Minor MD Date of Service: 12/02/24 Procedure(s): XR chest 2V Accession Number(s): [id number] cc: Robbie Kothari MD; Denilson Minor MD [...] 12/02/24 1150 DD/ 1042 TD/TT: 12/02/24 1052 Datawarehouse Developer: [place] [address] XRay Report Signed Patient: Jeremiah King MR#: [id number] [birth year] : 1940 Acct:[id number] Age/Sex: 84 / M ADM Date: 12/02/24 Loc: HO.XRAY Attending Dr: Robbie Kothari MD Ordering Physician: Denilson Minor MD Date of Service: 12/02/24 Procedure(s): XR chest 2V Accession Number(s): [id number] cc: Robbie Kothari MD; Denilson Minor MD [...] 12/02/24 1150 DD/ 1042 TD/TT: 12/02/24 1052 Datawarehouse Developer: Complete Blood Count Auto Di ff Reviewed date:12/16/2024 03:30:40 PM Interpretation: Performing Lab:[facility], [address] [place] [phone] Notes/Report: White Blood Count 5.2 4.8-10.8 X10*3/uL Red Blood Count 4.44 4.60-5.80 X10*6/uL Hemoglobin 13.9 14.0-18.0 g/dl Hematocrit 40.5 42.0-52.0 % Mean Corpuscular Volume 91.2 80.0-98.0 fL Mean Corpuscular Hemoglobin 31.3 27.0-33.0 pg Mean Corpuscular HGB Conc 34.3 31.0-36.0 g/dl Red Cell Distribution Width 13.3 11.0-16.0 % Platelet Count 263 160-400 X10*3/uL Mean Platelet Volume 9.5 9.4-12.4 fL Neutrophils Percent Auto 66.4 45-73 % Imm Gran Pct Auto 0.4 0.0-0.4 % Lymphocytes Percent Auto 17.8 20-40 % Monocytes Percent Auto 12.5 2-11 % Eosinophils Percent Auto 2.1 0-4 % Basophils Percent Auto 0.8 0-2 % NRBC Pct Auto 0.0 0.0-0.2 /100WBC Neutrophils Absolute Auto 3.4 2.0-8.3 x10*3/u L Imm Gran Abs Auto 0.02 0.00-0.03 X10*3/uL Lymphocytes Absolute Auto 0.9 1.2-4.9 X10*3/u L Monocytes Absolute Auto 0.7 0.1-1.2 X10*3/uL Eosinophils Absolute Auto 0.1 0.0-0.4 X10*3/u L Basophils Absolute Auto 0.0 0.0-0.2 X10*3/uL NRBC Abs Auto 0.000 0.0-0.012 X10*3/uL Basic Metabolic Panel Reviewed date:12/16/2024 03:30:40 PM Interpretation: Performing Lab:[address] [address] Notes/Report: Sodium 136 135-145 mmol/L Potassium 3.9 3.3-5.1 mmol/L Chloride 97 96-108 mmol/L Carbon Dioxide 31 22-29 mmol/L Anion Gap 12 12-20 Blood Urea Nitrogen 14 9-16 mg/dL Creatinine 0.76 0.5-1.4 mg/dL Estimated Glomerular Filt Rate > 60 Chronic Kidney Disease: Estimated GFR < 60 mL/min/1.73m2 Severe Kidney Disease: Estimated GFR < 15 mL/min/1.73m2 Glucose Random 84 60-115 mg/dL Calcium 9.8 8.4-10.2 mg/dL Magnesium Reviewed date:12/16/2024 03:30:40 PM Interpretation: Performing Lab:[facility], [address] [place] [address] Notes/Report: Magnesium 1.8 1.6-2.6 mg/dL XR chest 2V Reviewed date:12/16/2024 03:30:40 PM Interpretation: Performing Lab: Notes/Report: [address] [address] XRay Report Signed Patient: Freeman King MR#: [id number] [birth year] : 1940 Acct:[id number] Age/Sex: 84 / M ADM Date: 12/16/24 Loc: JILLIAN Attending Dr: Denilson Minor MD Ordering Physician: Denilson Minor MD Date of Service: 12/16/24 Procedure(s): XR chest 2V Accession Number(s): [id number] cc: Robbie Kothari MD; Denilson Minor MD EXAMINATION: XR CHEST CLINICAL INFORMATION: J47.9 - Bronchiectasis, uncomplicated COMPARISON: December 02, 2024. TECHNIQUE: 2 views of the chest were obtained. FINDINGS: Pulmonary reticular nodular pattern. Hyperinflated lungs. No gross pleural effusion or pneumothorax. Cardiomediastinal silhouette size is normal. Calcified plaque thoracic aorta. Multilevel thoracic spondylosis. Degenerative changes in the acromioclavicular joints. 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 Overall improved aeration. Electronically signed by: Lázaro Ely MD 12/16/2024 11:38 AM EDT RP Dictated By: Lázaro Elias MD Signed By: <Electronically signed by Lázaro Monique MD in OV> 12/16/24 1138 DD/ 1048 TD/TT: 12/16/24 1110 Datawarehouse Developer: [place] [address] XRay Report Signed Patient: Jeremiah King MR#: [id number] [birth year] : 1940 Acct:[id number] Age/Sex: 84 / M ADM Date: 12/16/24 Loc: HO.XRAY Attending Dr: Denilson Minor MD Ordering Physician: Denilson Minor MD Date of Service: 12/16/24 Procedure(s): XR chest 2V Accession Number(s): [id number] cc: Robbie Kothari MD; Denilson Minor MD EXAMINATION: XR CHEST CLINICAL INFORMATION: J47.9 - Bronchiectas is, uncomplicated COMPARISON: December 02, 2024. TECHNIQUE: 2 views of the chest were obtained. FINDINGS: Pulmonary reticular nodular pattern. Hyperinflated lungs. No gross pleural eff usion or pneumothorax. Cardiomediastinal silhouette size is normal. Calcified plaque thoracic aorta. Multilevel thoracic spondylosis. Degenerative changes in the acromioclavicular joints. 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 Overall imp roved aeration. Electronically gurpreet d by: Lázaro Ely MD 12/16/2024 11:38 AM EDT RP Dictated By: Lázaro Garcia MD Signed By: <Electronically signed by Lázaro Monique MD in OV> 12/16/24 1138 DD/ 1048 TD/TT: 12/16/24 1110 Datawarehouse Developer: Reason For Referral Reason Urgent Referral Requ est Evaluate and Treat ? Catheter Can not tolerate tamsulosin Diagnosis 1 Benign prostatic hyp erplasia with lower urinary tract symptoms (N40.1) Diagnosis 2 Nocturia (R35.1) Referral Organization Robbie Kothari III, MD Referring Provider First Name Robbie Referring Provider Last Name Saniya Referring Provider Speciality Internal M edicine Referred Provider [facility] er, Urology Referred Provider Specialty Urology General Notes D 12/06/2024 09:06:05 AM > Faxed referral and progress notes from last 2 visits, Sarika Villegas 12/12/2024 10:23:22 AM > stated they did not receive referral, referral was refaxed, Nelly 12/15/2024 01:20:36 PM > Patient is scheduled with [facility] for 02/08/25 @ 2pm. Patient was also placed on the waiting list. Appointment was booked with the patients Referral Priority Routine Referral Appointment Date 02/08/2025 Medications Medication SIG (Take, Route, Frequency, Duration) Notes Start Date End Date Status Robitussin DM Active Mucinex 600 MG 1 tablet as needed O rally every 12 hrs Active MiraLax 17 GM/SCOOP 1 scoop mixed with 8 ounces of fluid Orally every 2 to 3 days Active Azithromycin 500 MG Oral Active Albuterol Sulfate (2.5 MG/3ML) 0.083% Inhalation Active Atorvastatin Calcium 10 MG TAKE 1 TABLET BY MOUTH EVERY DAY for 90 Active guaiFENesin ER 600 MG 1 tablet Oral twice a day As needed Active Magnesium 400 MG 1 tablet Orally [...] Problem Status W/U Status Risk Notes Problem 3143943 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 Problem Hyperlipidemia (35806649) Hyperlipidemia (E78.5) Active confirmed Distal cholesterol is stable but his triglycerides are elevated. He will continue on his current diet until he has fully recovered from the stroke. He will continue on his medications. Problem 84268405 Hyponatremia (E87.1) Active confirmed After admission to [facility] he required hypertonic saline and then 1 g of sodium chloride tablets 3 times a day to restore his potassium to normal. He was discharged without this. Blood work with a sodium level will be checked frequently. Problem 531752123 Underweight (R63.6) Active confirmed He has lost ove r 20 pounds since his last visit. His body mass index is 18. We discussed nutrition at length today. 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 He has been told by pulmonary that his infection is making progress. The CT scan of November 29 show stability in the 1.3 cm right upper lobe cavitary leesion. Problem 482126063 Rosacea (L71.9) Active confirmed He was given metronidazole gel. He was instructed in its use. Problem 209771506 Pulmonary nodule (R91.1) Active confirmed This is being observed. No change in his symptoms have been noted. Problem 061828683 Adenoma of ascending colon (D12.2) Active confirmed He will call he r gastroenterologis t to see if additional colonoscopies will be recommended. Problem 53631586 Abdominal hernia without obstruction and without gangrene, recurrence not specified, unspecified hernia type (K46.9) Active confirmed The hernia is n ow asymptomatic and will be observed without treatment. Problem Pneumonia (999282752) Pneumonia (J18.9) Active confirmed He is taking th e azithromycin 3 times a week. The other antibiotic has been discontinued. The pneumonia has resolved. He is breathing comfortably. Problem Seizure (97199630) Seizures (R56.9) Active confirmed Just before discharge from an [facility] rehabilitation he was begun on Keppra for periods of unresponsiveness. A repeat CT scan November 18, 2024 showed improvement in the hemorrhage and edema. The Her will be discontinued until the electroencephalog jackie is done. We have requested a repeat visit from [facility] neurology. Problem 3760233831880 Benign prostatic hyperplasia with lower urinary tract symptoms (N40.1) Active confirmed He says he is rising from sleep up to 4 times a night. His tamsulosin waas stopped because of a low blood pressure. It curtis now resumed. He is happy with this level of control. We discussed further lifestyle modifications he can maake to reduce nocturia. Problem 44188735 Sleep apnea in adult (G47.30) Active confirmed He is using t he new CPAP machine without difficulty and is pleased with the results. 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 Problem 61149632 Atrial arrhythmia (I49.8) Active confirmed He was in a normal sinus rhythm today with no abnormalities. He has had no episodes of tachycardia, syncope or palpitations. 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 Vital Signs Heart Rate 88 /min 12/19/2024 Temperature 97.4 degrees Fahrenheit 12/19/2024 Blood pressure diastolic 71 mm Hg 12/19/2024 Height 76 in 12/19/2024 Blood pressure systolic 120 mm Hg 12/19/2024 Weight 150 lbs 12/19/2024 BMI 18.26 kg/m2 12/19/2024 Encounters Encounter Location Date Provider Diagnosis Robbie Kothari III, MD [address] [place] [address] [place] [address] 01/04/2024 Robbie Kothari Hyperlipidemia E78.5 ; Abdominal hernia without obstruction and without gangrene, recurrence not specified, unspecified hernia type K46.9 ; Former smoker Z87.891 ; Atrial arrhythmia I49.8 ; Rosacea L71.9 ; Mycobacterial infection, unspecified A31.9 ; Benign prostatic hyperplasia with lower urinary tract symptoms N40.1 and Sleep apnea in adult G47.30 Robbie Kothari III, MD [address] [place] [address] [place] [address] 04/14/2024 Robbie Kothari Hyperlipidemia E78.5 ; Vertigo R42 ; Tinnitus, left H93.12 ; Former smoker Z87.891 ; Mycobacterial infection, unspecified A31.9 and Atrial arrhythmia I49.8 Robbie Kothari III, MD [address] [place] [address] [place] [address] 04/15/2024 Robbie Kothari Hyperlipidemia E78.5 ; Labyrinthitis, unspecified laterality H83.09 ; Former smoker Z87.891 ; Rosacea L71.9 ; Mycobacterial infection, unspecified A31.9 and Right anterior knee pain M25.561 Robbie Kothari III, MD [address] [place] [address] [place] [address] 04/22/2024 Robbie Kothari Hyperlipidemia E78.5 ; Benign prostatic hyperplasia with lower urinary tract symptoms N40.1 ; Former smoker Z87.891 ; Mycobacterial infection, unspecified A31.9 ; Sleep apnea in adult G47.30 and Labyrinthitis, unspecified laterality H83.09 Robbie Kothari III, MD [address] [place] [address] [place] [address] 06/02/2024 Robbie Kothari Encounter for immunization Z23 Robbie Kothari III, MD [address] [place] [address] [place] [address] 07/25/2024 Robibe Kothari Hyperlipidemia E78.5 ; Mycobacterial infection, unspecified A31.9 ; Benign prostatic hyperplasia with lower urinary tract symptoms N40.1 ; Former smoker Z87.891 ; 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 and Sleep apnea in adult G47.30 Robbie Kothari III, MD [address] [place] [address] [place] [address] 11/21/2024 Robbie Kothari Hyperlipidemia E78.5 ; Nontraumatic [...] in adult G47.30 Robbie Kothari III, MD [address] [place] [address] [place] [address] 12/02/2024 Robbie Kothari Hyperlipidemia E78.5 ; 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 ; Pneumonia J18.9 ; Former smoker Z87.891 ; Mycobacterial infection, unspecified A31.9 ; Sleep apnea in adult G47.30 and Benign prostatic hyperplasia with lower urinary tract symptoms N40.1 Robbie Kothari III, MD [address] [place] [address] [place] [address] 12/19/2024 Robbie Kothari Hyperlipidemia E78.5 ; 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 ; Pneumonia J18.9 ; Underweight R63.6 ; Seizures R56.9 ; Former smoker Z87.891 ; Mycobacterial infection, unspecified A31.9 ; Sleep apnea in adult G47.30 and Benign prostatic hyperplasia with lower urinary tract symptoms N40.1 Robbie Kothari III, MD [address] [place] [address] [place] [address] 10/28/2024 Robbie Kothari III MD [address] [place] [address] [place] [address] 11/21/2024 Robbie Kothari III, MD [address] [place] [address] [place] [address] 11/21/2024 Robbie Kothari III, MD [address] [place] [address] [place] [address] 11/22/2024 Robbie Kothari III, MD [address] [place] [address] [place] [address] 11/22/2024 Robbie Kothari III, MD [address] [place] [address] [place] [address] 11/25/2024 Robbie Kothari III, MD [address] [place] [address] [place] [address] 11/25/2024 Robbie Kothari III, MD [address] [place] [address] [place] [address] 12/05/2024 Robbie Kothari III, MD [address] [place] [address] [place] [address] 12/14/2024 Robbie Kothari III, MD [address] [place] [address] [place] [address] 12/20/2024 Robbie Kothari Assessments Encounter Date Diagnosis (ICD [...] be seen once a week at least. 12/19/2024 Hyperlipidemia (ICD-10 - E78.5) Distal cholesterol is stable but his triglycerides are elevated. He will continue on his current diet until he has fully recovered from the stroke. He will continue on his medications. 12/19/2024 Nontraumatic hemorrhage of left cerebral hemisphere (ICD-10 [...] - R56.9) Just before discharge from an [facility] rehabilitation he was begun on Keppra for periods of unresponsiveness. A repeat CT scan November 18, 2024 showed improvement in the hemorrhage and edema. The Her will be discontinued until the electroencephalogram is done. We have requested a repeat visit from [facility] neurology. 12/02/2024 Pneumonia (ICD-10 - J18.9) He reports coughing at night. His age azithromycin has been increased to once a day from 3 times a week. Chest x-ray has been ordered. His oxygen saturation was 96%. 12/19/2024 Pneumonia (ICD-10 - J18.9) He is taking the azithromycin 3 times a week. The other antibiotic has been discontinued. The pneumonia has resolved. He is breathing comfortably. 01/04/2024 Atrial arrhythmia (ICD-10 - I49.8) He [...] Hyponatremia (ICD-10 - E87.1) After admission to [facility] he required hypertonic saline and then 1 g of sodium chloride tablets 3 times a day to restore his potassium to normal. He was discharged without this. Blood work with a sodium level will be checked frequently. 12/02/2024 Former smoker (ICD-10 - Z87.891) He has a strategy to prevent relapse in times of stress and illness. 12/19/2024 Underweight (ICD-10 - R63.6) He has lost over 20 pounds since his last visit. His body mass index is 18. We discussed nutrition at length today. 01/04/2024 Rosacea (ICD-10 - L71.9) He was [...] 1.3 cm right upper lobe cavitary leesion. 12/19/2024 Seizures (ICD-10 - R56.9) Just before discharge from an [facility] rehabilitation he was begun on Keppra for periods of unresponsiveness. A repeat CT scan November 18, 2024 showed improvement in the hemorrhage and edema. The Her will be discontinued until the electroencephalogram is done. We have requested a repeat visit from [facility] neurology. 01/04/2024 Mycobacterial infection, unspecified (ICD-10 - A31.9) [...] difficulty and is pleased with the results. 12/19/2024 Former smoker (ICD-10 - Z87.891) He has a strategy to prevent relapse in times of stress and illness. 01/04/2024 Benign prostatic hyperplasia with lower urinary [...] modifications he can maake to reduce nocturia. 12/19/2024 Mycobacterial infection, unspecified (ICD-10 - A31.9) He continues on daily basis Romycin. He has been told by pulmonary that his infection is making progress. The CT scan of November 29 show stability in the 1.3 cm right upper lobe cavitary leesion. 01/04/2024 Sleep apnea in adult (ICD-10 - G47.30) He is using the new CPAP machine without difficulty and is pleased with the results. 11/21/2024 Rosacea (ICD-10 - L71.9) He was given metronidazole gel. He was instructed in its use. 12/19/2024 Sleep apnea in adult (ICD-10 - G47.30) He is using the new CPAP machine without difficulty and is pleased with the results. 11/21/2024 Atrial arrhythmia (ICD-10 - I49.8) He was in a normal sinus rhythm today with no abnormalities. He has had no episodes of tachycardia, syncope or palpitations. 12/19/2024 Benign prostatic hyperplasia with lower urinary tract symptoms (ICD-10 - N40.1) He says he is rising from sleep up to 4 times a night. His tamsulosin waas stopped because of a low blood pressure. It curtis now resumed. He is happy with this level of control. We discussed further lifestyle modifications he can maake to reduce nocturia. 11/21/2024 Benign prostatic hyperplasia with lower urinary [...] C) 10/08/2021 PROFILE, FASTING (COMPREHENSIVE METABOLI C) 12/05/2020 PROFILE, FASTING (COMPREHENSIVE METABOLI C) 04/22/2024 PROFILE, RANDOM (COMPREHENSIVE METABOLIC ) 01/06/2022 LIPID [...] 07/25/2024 Lipid Panel 04/22/2024 Lipid Panel 07/22/2023 Next Appt Details Provider Name:Robbie Kothari, 01/04/2025 03:30:00 PM, [address] [place] [address] DR ORLIN Bhaskar, [place], [address], Insurance Providers Payer Name Payer Address Payer Phone Subscriber Number Group Number Insured Name Patient Relationship to Insured Coverage Start Date Coverage End Date [employer]vantage [address] [address] [place] [address] [phone] [id number] Freeman King Self - patient is the insured MEDICARE NGS [address] [place] [address] [id number] Freeman King Self - patient is the insured Medical (General) History Medical History History ICD Code colonic poyps 2003 benign prostatic hyperplasia (BPH) hyperlipidemia left herniorraphy age 30 neck and right shoulder pain 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
--- OUTSIDE RECORDS SUMMARY | 2024-12-29 09:48 | XMS_ITS | Patient Health Record ---
Author Organization [facility] Address [address] [place] [address] Care Team Providers Care Safety Scientist Name Role Phone Robbie Kothari MD Primary Care Provider UnavailAna Damon Unavailable [phone] Allergies Allergen (clinical drug ingredient) Drug/Non Drug [...] use: Nonsmoker Vital Signs Blood pressure diastolic 58 mm Hg 12/27/2024 Height 6 ft 4 in in 12/27/2024 Blood pressure systolic 114 mm Hg 12/27/2024 Weight 150 lbs 12/27/2024 BMI 18.26 kg/m2 12/27/2024 Encounters Encounter Location Date Provider Diagnosis [facility] [address] [place] [address] 12/30/2023 Ana Hernandez Fungal infection of nail B35.1 ; Pain in right toe(s) M79.674 ; Pain in left toe(s) M79.675 and Xerosis of skin L85.[address] [address] 03/29/2024 Ana Perica Tinea unguium B35.1 ; Pain in right toe(s) M79.674 and Pain in left toe(s) M79.[address] [address] 06/28/2024 Ana Perica Tinea unguium B35.1 ; Pain in right toe(s) M79.674 and Pain in left toe(s) M79.[address] [address] 09/27/2024 Ana Perica Tinea unguium B35.1 ; Pain in right toe(s) M79.674 and Pain in left toe(s) M79.[address] [address] 12/27/2024 Ana Perica Tinea unguium B35.1 ; Pain [...] B35.1) 09/27/2024 Tinea unguium (ICD-10 - B35.1) 12/27/2024 Tinea unguium (ICD-10 - B35.1) 09/27/2024 Pain in right toe(s) (ICD-10 - M79.674) 12/27/2024 Pain in right toe(s) (ICD-10 - M79.674) 12/30/2023 Pain in left toe(s) (ICD-10 - M79.675) 06/28/2024 Pain in right toe(s) (ICD-10 - M79.674) 03/29/2024 Pain in left toe(s) (ICD-10 - M79.675) 12/30/2023 Xerosis of skin (ICD-10 - L85.3) 06/28/2024 Pain in left toe(s) (ICD-10 - M79.675) 12/27/2024 Pain in left toe(s) (ICD-10 - M79.675) 09/27/2024 Pain in left toe(s) (ICD-10 - M79.675) Plan Of Treatment Next Appt Details Provider Name:Ana garduno, 03/28/2025 11:15:00 AM, [address] [place], [address], Insurance Providers Payer Name Payer Address Payer Phone Subscriber Number Group Number Insured Name Patient Relationship to Insured Coverage Start Date Coverage End Date [facility] Medicare-[id number] [address] [address] [place] [address] [phone] [id number] Freeman King Self - patient is the insured Medical (General) History Medical History History ICD Code Measles Mumps Chicken pox Stroke Surgical History Surgery Date(Month/Year) hernia colonoscopy Hospitalization History Reason Date(Month/Year) [facility]- Stroke 10/2024
--- OUTSIDE RECORDS SUMMARY | 2024-12-29 09:49 | XMS_ITS | Encounter Summary ---
Author Organization [facility] Address [address] [place] [address] Care Team Providers Care Entertainment Lawyer Name Role Phone Gloria Preston MD Primary Care Provider [phone] Encounter Details Date Type Department Care Team (Late st Contact Info) Description 11/10/2024 Lab Requisition [facility] - Main Lab [address] [facility] [place] [address] Gloria Preston MD [address] [place] [address] Encounter for other general examination Social History [...] * Vitamin B12 (11/10/2024 6:06 AM EST) [facility] Vitamin B-12 413 250 - 900 pcg/mL LAB CHEMISTRY METHOD 11/10/2024 9:28 PM EST [facility] Blood Venous blood specimen / Unknown Venipuncture / Unknown 11/10/2024 6:06 AM EST 11/10/2024 8:03 AM EST Gloria Preston MD LAB BLOOD ORDERABLES Final Resu lt Performing Organization Address [facility]/ZIP Co de Phone Number [facility] [address] [place] [address], [place] [phone] * Thyroid stimulating hormone (11/10/2024 6:06 AM EST) [facility] TSH 1.57 0.40 - 4.00 mcIU/mL LAB CHEMISTRY METHOD 11/10/2024 9:51 PM EST [facility] Blood Venous blood specimen / Unknown Venipuncture / Unknown 11/10/2024 6:06 AM EST 11/10/2024 8:03 AM EST Gloria Preston MD LAB BLOOD ORDERABLES Final Resu lt [facility] [address] [place] [address], [place] [phone] * (ABNORMAL) CBC auto differential (11/10/2024 6:06 AM EST) [facility] WBC 6.0 4.8 - 10.8 K/[facility] LAB HEMETOLOGY METHOD 11/10/2024 8:44 AM EST [facility] RBC 3.80(L) 4.50 - 5.50 M/[facility] LAB HEMETOLOGY METHOD 11/10/2024 8:44 AM [facility] Hemoglobin 12.4(L) 13.5 - 17.5 g/dL LAB HEMETOLOGY METHOD 11/10/2024 8:44 AM [facility] Hematocrit 36.7(L) 42.0 - 54.0 % LAB HEMETOLOGY METHOD 11/10/2024 8:44 AM [facility] MCV 95.6 79.0 - 98.0 FL LAB HEMETOLOGY METHOD 11/10/2024 8:44 AM [facility] MCH 32.3(H) 27.0 - 32.0 pcg LAB HEMETOLOGY METHOD 11/10/2024 8:44 AM [facility] MCHC 33.8 32.0 - 37.0 g/dL LAB HEMETOLOGY METHOD 11/10/2024 8:44 AM [facility] RDW 12.8 11.0 - 15.0 % LAB HEMETOLOGY METHOD 11/10/2024 8:44 AM [facility] Platelets 337 130 - 400 K/mcL LAB HEMETOLOGY METHOD 11/10/2024 8:44 AM [facility] MPV 9.8 7.0 - 11.0 FL LAB HEMETOLOGY METHOD 11/10/2024 8:44 AM [facility] NRBC 0.0 <1.0 % LAB HEMETOLOGY METHOD 11/10/2024 8:44 AM [facility] NRBC Absolute 0.00 <0.10 K/mcL LAB HEMETOLOGY METHOD 11/10/2024 8:44 AM [facility] Neutrophils Relative 72.1 % LAB HEMETOLOGY METHOD 11/10/2024 8:44 AM [facility] Lymphocytes Relative 14.8 % LAB HEMETOLOGY METHOD 11/10/2024 8:44 AM [facility] Monocytes Relative 9.9 % LAB HEMETOLOGY METHOD 11/10/2024 8:44 AM EST [facility] Eosinophils Relative 1.5 % LAB HEMETOLOGY METHOD 11/10/2024 8:44 AM [facility] Basophils Relative 1.2 % LAB HEMETOLOGY METHOD 11/10/2024 8:44 AM [facility] Immature Granulocytes Relative 0.5 % LAB HEMETOLOGY METHOD 11/10/2024 8:44 AM EST [facility] Neutrophils Absolute 4.29 1.50 - 7.00 K/mcL LAB HEMETOLOGY METHOD 11/10/2024 8:44 AM [facility] Lymphocytes Absolute 0.88(L) 1.00 - 5.00 K/mcL LAB HEMETOLOGY METHOD 11/10/2024 8:44 AM [facility] Monocytes Absolute 0.59 0.20 - 1.00 K/mcL LAB HEMETOLOGY METHOD 11/10/2024 8:44 AM [facility] Eosinophils Absolute 0.09 0.00 - 0.50 K/mcL LAB HEMETOLOGY METHOD 11/10/2024 8:44 AM [facility] Basophils Absolute 0.07 0.00 - 0.20 K/mcL LAB HEMETOLOGY METHOD 11/10/2024 8:44 AM [facility] Immature Granulocytes Absolute 0.03 0.00 - 0.03 K/mcL LAB HEMETOLOGY METHOD 11/10/2024 8:44 AM [facility] Blood Venous blood specimen / Unknown Venipuncture / Unknown 11/10/2024 6:06 AM EST 11/10/2024 8:03 AM EST us Gloria Preston MD LAB BLOOD ORDERABLES Final Resu lt [facility] [address] [place] [address], [place] [phone] * Magnesium (11/10/2024 6:06 AM EST) Pathologist [facility] Magnesium 2.0 1.9 - 2.6 mg/dL LAB CHEMISTRY METHOD 11/10/2024 9:04 AM [facility] Blood Venous blood specimen / Unknown Venipuncture / Unknown 11/10/2024 6:06 AM EST 11/10/2024 8:03 AM EST us Gloria Preston MD LAB BLOOD ORDERABLES Final Resu lt [facility] [address] [place] [address], [place] [phone] * (ABNORMAL) Basic metabolic panel (11/10/2024 6:06 AM EST) Pathologist [facility] Sodium 136 133 - 145 mmol/L LAB CHEMISTRY METHOD 11/10/2024 9:04 AM [facility] Potassium 4.3 3.5 - 5.5 mmol/L LAB CHEMISTRY METHOD 11/10/2024 9:04 AM [facility] Chloride 103 96 - 110 mmol/L LAB CHEMISTRY METHOD 11/10/2024 9:04 AM [facility] CO2 25 21 - 32 mmol/L LAB CHEMISTRY METHOD 11/10/2024 9:04 AM [facility] Anion Gap 8 3 - 11 LAB CHEMISTRY METHOD 11/10/2024 9:04 AM [facility] Glucose 94 70 - 100 mg/dL LAB CHEMISTRY METHOD 11/10/2024 9:04 AM [facility] BUN 22 5 - 25 mg/dL LAB CHEMISTRY METHOD 11/10/2024 9:04 AM [facility] Creatinine 0.54(L) 0.70 - 1.30 mg/dL LAB CHEMISTRY METHOD 11/10/2024 9:04 AM EST [facility] eGFR 98 >=60 mL/min/1. 73m2 LAB CHEMISTRY METHOD 11/10/2024 9:04 AM [facility] Comment:Calculation based on the??Chronic Kidney Disease Epidemiology Collaboration (CKD-EPI) equation refit??without adjustment for race. BUN/Creatinine Ratio 40.7 LAB CHEMISTRY METHOD 11/10/2024 9:04 AM [facility] Calcium 9.1 8.5 - 10.5 mg/dL LAB CHEMISTRY METHOD 11/10/2024 9:04 AM [facility] Blood Venous blood specimen / Unknown Venipuncture / Unknown 11/10/2024 6:06 AM EST 11/10/2024 8:03 AM EST us Gloria Pretson MD LAB BLOOD ORDERABLES Final Resu lt [facility] [address] [place] [address], documented in this encounter Visit Diagnoses Diagnosis Encounter for other general examination documented in this encounter Care Teams Entertainment Lawyer Relationship Specialty Start Date End Date Gloria Preston MD [address] [place] [id number] PCP - General Hospitalist Medicine 11/05/24 documented as of this encounter
--- OUTSIDE RECORDS SUMMARY | 2024-12-29 09:49 | XMS_ITS | Encounter Summary ---
Author Organization [facility] Address [address] [place] [address] Care Team Providers Care Health Education Specialist Name Role Phone Gloria Preston MD Primary Care Provider [phone] Encounter Details Date Type Department Care Team (Late st Contact Info) Description 11/16/[address] [facility] - Main Lab [address] [facility] [address] Gloria Preston MD [address] [place] [address] Encounter for other general examination Social History [...] AM EST) WBC 3.8(L) 4.8 - 10.8 K/[facility] LAB HEMETOLOGY METHOD 11/16/2024 11:05 AM [facility] RBC 3.90(L) 4.50 - 5.50 M/mcL LAB HEMETOLOGY METHOD 11/16/2024 11:05 AM [facility] Hemoglobin 12.5(L) 13.5 - 17.5 g/dL LAB HEMETOLOGY METHOD 11/16/2024 11:05 AM [facility] Hematocrit 36.5(L) 42.0 - 54.0 % LAB HEMETOLOGY METHOD 11/16/2024 11:05 AM [facility] MCV 94.8 79.0 - 98.0 FL LAB HEMETOLOGY METHOD 11/16/2024 11:05 AM [facility] MCH 32.5(H) 27.0 - 32.0 pcg LAB HEMETOLOGY METHOD 11/16/2024 11:05 AM [facility] MCHC 34.2 32.0 - 37.0 g/dL LAB HEMETOLOGY METHOD 11/16/2024 11:05 AM [facility] RDW 13.0 11.0 - 15.0 % LAB HEMETOLOGY METHOD 11/16/2024 11:05 AM [facility] Platelets 307 130 - 400 K/mcL LAB HEMETOLOGY METHOD 11/16/2024 11:05 AM [facility] MPV 9.8 7.0 - 11.0 FL LAB HEMETOLOGY METHOD 11/16/2024 11:05 AM [facility] NRBC 0.0 <1.0 % LAB HEMETOLOGY METHOD 11/16/2024 11:05 AM [facility] NRBC Absolute 0.00 <0.10 K/mcL LAB HEMETOLOGY METHOD 11/16/2024 11:05 AM [facility] Neutrophils Relative 54.7 % LAB HEMETOLOGY METHOD 11/16/2024 11:05 AM [facility] Lymphocytes Relative 23.1 % LAB HEMETOLOGY METHOD 11/16/2024 11:05 AM [facility] Monocytes Relative 19.6 % LAB HEMETOLOGY METHOD 11/16/2024 11:05 AM [facility] Eosinophils Relative 0.5 % LAB HEMETOLOGY METHOD 11/16/2024 11:05 AM [facility] Basophils Relative 1.3 % LAB HEMETOLOGY METHOD 11/16/2024 11:05 AM [facility] Immature Granulocytes Relative 0.8 % LAB HEMETOLOGY METHOD 11/16/2024 11:05 AM [facility] Neutrophils Absolute 2.06 1.50 - 7.00 K/mcL LAB HEMETOLOGY METHOD 11/16/2024 11:05 AM [facility] Lymphocytes Absolute 0.87(L) 1.00 - 5.00 K/mcL LAB HEMETOLOGY METHOD 11/16/2024 11:05 AM [facility] Monocytes Absolute 0.74 0.20 - 1.00 K/mcL LAB HEMETOLOGY METHOD 11/16/2024 11:05 AM [facility] Eosinophils Absolute 0.02 0.00 - 0.50 K/mcL LAB HEMETOLOGY METHOD 11/16/2024 11:05 AM [facility] Basophils Absolute 0.05 0.00 - 0.20 K/mcL LAB HEMETOLOGY METHOD 11/16/2024 11:05 AM [facility] Immature Granulocytes Absolute 0.03 0.00 - 0.03 K/mcL LAB HEMETOLOGY METHOD 11/16/2024 11:05 AM [facility] Blood Venous blood specimen / Unknown Venipuncture / Unknown 11/16/2024 5:44 AM EST 11/16/2024 10:20 AM EST us Gloria Preston MD LAB BLOOD ORDERABLES Final Resu lt [facility] [address] [place] [address], [place] [phone] * (ABNORMAL) Basic metabolic panel (11/16/2024 5:44 AM EST) Sodium 135 133 - 145 mmol/L LAB CHEMISTRY METHOD 11/16/2024 2:30 PM [facility] Potassium 4.1 3.5 - 5.5 mmol/L LAB CHEMISTRY METHOD 11/16/2024 2:30 PM [facility] Chloride 99 96 - 110 mmol/L LAB CHEMISTRY METHOD 11/16/2024 2:30 PM [facility] CO2 25 21 - 32 mmol/L LAB CHEMISTRY METHOD 11/16/2024 2:30 PM [facility] Anion Gap 11 3 - 11 LAB CHEMISTRY METHOD 11/16/2024 2:30 PM [facility] Glucose 79 70 - 100 mg/dL LAB CHEMISTRY METHOD 11/16/2024 2:30 PM [facility] BUN 18 5 - 25 mg/dL LAB CHEMISTRY METHOD 11/16/2024 2:30 PM [facility] Creatinine 0.64(L) 0.70 - 1.30 mg/dL LAB CHEMISTRY METHOD 11/16/2024 2:30 PM [facility] eGFR 93 >=60 mL/min/1. 73m2 LAB CHEMISTRY METHOD 11/16/2024 2:30 PM [facility] Comment:Calculation based on the??Chronic Kidney Disease Epidemiology Collaboration (CKD-EPI) equation refit??without adjustment for race. BUN/Creatinine Ratio 28.1 LAB CHEMISTRY METHOD 11/16/2024 2:30 PM [facility] Calcium 8.9 8.5 - 10.5 mg/dL LAB CHEMISTRY METHOD 11/16/2024 2:30 PM EST [facility] Blood Venous blood specimen / Unknown Venipuncture / Unknown 11/16/2024 5:44 AM EST 11/16/2024 10:20 AM EST us Gloria Preston MD LAB BLOOD ORDERABLES Final Resu lt [facility] [address] [place] [address], documented in this encounter Visit Diagnoses Diagnosis Encounter for other general examination documented in this encounter Care Teams Health Education Specialist Relationship Specialty Start Date End Date Gloria Preston MD [address] [place] [id number] PCP - General Hospitalist Medicine 11/05/24 documented as of this encounter
--- OUTSIDE RECORDS SUMMARY | 2024-12-29 09:49 | XMS_ITS ---
Author Organization [facility] Address [address] [place] [address] Care Team Providers Care Mult Au Matic Operator Name Role Phone Robbie Kothari MD Primary Care Provider Ana Rosales Unavailable [phone] Allergies Allergen (clinical drug ingredient) Drug/Non Drug [...] Signs Height 6 ft 4 in in 12/27/2024 Weight 150 lbs 12/27/2024 BMI 18.26 kg/m2 12/27/2024 Blood pressure systolic 114 mm Hg 12/28/19 25 Blood pressure diastolic 58 mm Hg 025 Encounters Encounter Location Date Provider Diagnosis [facility] [address] [place] [address] 12/27/2024 Ana Hernandez Tinea unguium B35.1 ; Pain in right toe(s) M79.674 and Pain in left toe(s) M79.675 Assessments Encounter Date Diagnosis (ICD Code) Assessment Notes Treatment Notes Treatment Clinical Notes Section Notes 12/27/2024 Tinea unguium (ICD-10 - B35.1) 12/27/2024 Pain in right toe(s) (ICD-10 - M79.674) 12/27/2024 Pain in left toe(s) (ICD-10 - M79.675) Plan Of Treatment Next Appt Details Follow Up: 3 Months, Reason: Provider Name:Ana garduno, 03/28/2025 11:15:00 AM, [address] [place] [address], [phone], Procedure Notes * Category Sub-Category Detail Notes [...] use of a nail nipper and/or dremel-type grinder set up operator internal, to a more viable healthy nail plate [...] to maintain effectiveness in symptomatic relief - 10229 Progress Notes * Freeman ROCHADOB: 0 (84 yo M)Acc No.[id number]:12/27/2024 Progress Note Patient:?Freeman ROCHA Provider:?Ana Hernandez DPM :1940???Age:84 Y???Sex:Male Lokesh e:12/27/2024 Address:[place] Pcp:Robbie Kothari MD Subjective: * Chief Complaints: * ???Painful nail(s) aggrevate d by shoes causing difficulty standing/walking * HPI: ???Painful Nails:?Pt States Last PCP Visit:?Date:?12/19/2024 * ROS:?General/Constitutional:?Nausea?denies.?Vomiting?denies.?Hunger Thirst?denies.?Loss appetite?denies.?Chills?denies.?Fatigue?denies.?Fever?denies.?Night Sweats?denies.?Unexplained weight loss?denies.?Unexplained [...] History:?hernia col onoscopy * Hospitalization/Major Diagno stic Procedure:?[facility]- Stroke 10/2024 * Family History:?Mother: dece ased.?Father: .? * Social History:?Tobacco Use:?Tobacco use other than smoking?Are you an other tobacco user??No ?Tobacco Control (Standard)?Tobacco use:?Nonsmoker ???Miscellaneous:?Caffeine: yes, 3-5 cups per day. ?Children: no. ?Exercise: yes, walking. ?Marital status: . ?Occupation: Retired- [employer]. * Medications:?TakingAtorvasta tin Calcium 10 MG Tablet [...] Vitals:?Ht: 6 ft 4 in, Wt: 1 50, BMI: 18.26, Shoe size: 13, BP: 114/58 mm Hg, Ht- cm: 193.04 cm, Wt-k.04 kg. * Examination: ???Nails: ?NAILS are:?Elongated, overgrown, dystrophic, lytic, greater than 3mm thick, discolored and friable with crumbly malodorous subungual debris, with pain on palpation, TA, T1, T2, T3, T4, T5, T6, T7, T8, T9.? Assessment: * Assessment: 1.?Tinea unguium - B35.1 [...] use of a nail nipper and/or dremel-type grinder set up operator internal, to a more viable healthy nail plate [...] to maintain effectiveness in symptomatic relief - 84027.? * Procedure Codes:?73454 DEBRI DE NAIL, 6 OR MORE, Modifiers: XS * Follow Up:?3 Months * Images: * Sign off status: Completed true * Provider:?Ana Hernandez DPM Date:? Generated for Chip andres/Awais/Tiffanie on:?12/29/2024 09:49 AM EDT History and Physical Notes * HPI (History of Present Illness) Category Sub-Category Detail Notes Category Not es Painful Nails Pt States Last PCP Visit: Date:: 12/19/2024 Examination Category Sub-Category Detail Notes Category Not es Nails NAILS are: Elongated, overg rown, dystrophic, lytic, greater than 3mm thick, discolored and friable with crumbly malodorous subungual debris, with pain on palpation, TA, T1, T2, T3, T4, T5, T6, T7, T8, T9
--- OUTSIDE RECORDS SUMMARY | 2024-12-29 09:49 | XMS_ITS ---
Author Organization Robbie Kothari III, MD Address [address] [place] [address] Care Team Providers Care Safety Sitter Name Role Phone Robbie Kothari Primary Care Provider Allergies Allergen (clinical drug ingredient) Drug/Non Drug Allergy documented on EMR Reaction Allergy Type Onset Date Status No Known Drug Allergy Unknown Drug Allergy Active REASON FOR VISIT Recent cerebral hemorrhage, Mycobacterium avium pulmonary infection, Recent pneumonia, Sleep apnea,Hyperlipidemia, Under weight, Benign prostatic hypertrophy Medications Medication SIG (Take, Route, Frequency, Duration) Notes Start Date End Date Status Azithromycin 500 MG Oral Active Albuterol Sulfate (2.5 MG/3ML) 0.083% Inhalation Active Robitussin DM Active Mucinex 600 MG 1 tablet as needed O rally every 12 hrs Active guaiFENesin ER 600 MG 1 tablet Oral twice a day As needed Active Magnesium 400 MG 1 tablet Orally at b ed time Active Atorvastatin Calcium 10 MG 1 tablet Oral ly at bed time Active MiraLax 17 GM/SCOOP 1 scoop [...] Additional Findings: Tobacco Non-User Ex-cigaret te smoker Vital Signs Temperature 97.4 degrees Fahrenheit 12/20/19 25 Blood pressure systolic 120 mm Hg 12/20/19 25 Blood pressure diastolic 71 mm Hg 025 Heart Rate 88 /min 12/19/2024 Height 76 in 12/19/2024 Weight 150 lbs 12/19/2024 BMI 18.26 kg/m2 12/19/2024 Encounters Encounter Location Date Provider Diagnosis Robbie Kothari III, MD [address] [place] [address] [address] [place], [place] [address] 12/19/2024 Robbie Kothari Hyperlipidemia E78.5 ; 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 12/19/2024 Pneumonia (ICD-10 - J18.9) He is taking the azithromycin 3 times a week. The other antibiotic has been discontinued. The pneumonia has resolved. He is breathing comfortably. 12/19/2024 Underweight (ICD-10 - R63.6) He has lost over 20 pounds since his last visit. His body mass index is 18. We discussed nutrition at length today. 12/19/2024 Seizures (ICD-10 - R56.9) Just before discharge from an [facility] rehabilitation he was begun on Keppra for periods of unresponsiveness. A repeat CT scan November 18, 2024 showed improvement in the hemorrhage and edema. The Her will be discontinued until the electroencephalogram is done. We have requested a repeat visit from [facility] neurology. 12/19/2024 Former smoker (ICD-10 - Z87.891) He has a strategy to prevent relapse in times of stress and illness. 12/19/2024 Mycobacterial infection, unspecified (ICD-10 - A31.9) He continues on daily basis Romycin. He has been told by pulmonary that his infection is making progress. The CT scan of November 29 show stability in the 1.3 cm right upper lobe cavitary leesion. 12/19/2024 Sleep apnea in adult (ICD-10 - G47.30) He is using the new CPAP machine without difficulty and is pleased with the results. 12/19/2024 Benign prostatic hyperplasia with lower urinary [...] Name Sig Start Date Stop Date Notes Azithromycin 500 MG Oral Albuterol Sulfate (2.5 MG/3M L) 0.083% Inhalation Robitussin DM Mucinex 600 MG 1 tablet as needed O rally every 12 hrs guaiFENesin ER 600 MG 1 tablet Oral twice a day Magnesium 400 MG 1 tablet Orally at bed time Atorvastatin Calcium 10 MG 1 tablet Orally at bed time MiraLax 17 GM/SCOOP 1 scoop mixed with 8 ounces of fluid Orally every 2 to 3 days Next Appt Details Follow Up: As Scheduled, Lien son: Annual Exam Provider Name:Robbie Kothari, 01/04/2025 03:30:00 PM, [address] [place] [address] [address], [place], [address], Progress Notes * Freeman ROCHADOB: 0 (84 yo M)Acc No.[id number]:12/19/2024 Progress Notes Patient:?Freeman ROCHA Provider:?Robbie Kothari MD :1940???Age:84 Y???Sex:Male Lokesh e:12/19/2024 Address:[address] [place], [id number] Subjective: * Chief Complaints: * ???Recent cerebral hemorrhag eMycobacterium avium pulmonary infectionRecent pneumoniaSleep apneaHyperlipidemiaUnder weightBenign prostatic hypertrophy * HPI: ???COVID-19 Screening:? He is being watched closely during his recovery from a cerebral hemorrhage.? His mental status is brighter and he converses without difficulty.? He reports no trouble breathing.? 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 He is breathing comfortably while at rest.? He remains underweight with a body mass index of 18.? He has had no bleeding.? He has had no episodes of tachycardia.? He has been rising from sleep several times a night but last night only once.? He is taking tamsulosin. ?Questions?Have you had any new onset fever, chills, cough, congestion, sore throat, shortness of breath, muscle aches??No * ROS:?General/Constitutional:?pain?only normal aches and pains.?Chills?denies.?Fatigue?admits.?Fever?denies.?ENT:?Decreased hearing?denies.?Respiratory:?Cough?non-productive.?Cardiovascular:?Chest pain with exertion?denies.?Dyspnea on exertion?with mild activity.?Shortness of breath?with exertion.?Gastrointestinal:?Constipation?denies.?Decreased appetite?that is associated with weight loss.?Diarrhea?denies.?Heartburn?denies.?Nausea?denies.?Rectal bleeding?denies.?Vomiting?denies.?Hematology:?bruising?denies.?petechiae?denies.?Swollen glands?none have been noted.?Genitourinary:?Frequent urination?twice a night.?Musculoskeletal:?Muscle aches?denies.?Painful joints?denies.?Sciatica?denies.?Weakness?that is generalized.?Skin:?Itching?denies.?Rash?denies.?Skin lesion(s)?denies.?Neurologic:?Difficulty speaking?denies.?Dizziness?denies.?Headache?denies.?Low back pain?denies.?Psychiatric:?Depressed mood?denies.? * Medical History:? * Surgical History:?colonoscop y [...] Tobacco Non-User?Ex-cigarette smoker ???He has been to [facility] for 43 years and has 2 children and 2 grandchildren. 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 He was born in [place], [place]. * Medications:?TakingRobitussi n DM Mucinex 600 MG Tablet Extended Release 12 Hour 1 tablet as needed Orally every 12 hrs MiraLax 17 GM/SCOOP Powder 1 scoop mixed with 8 ounces of fluid Orally every 2 to 3 days , Notes to Pharmacist: as neededAtorvastatin Calcium 10 MG Tablet 1 tablet Orally at bed time Azithromycin 500 MG Tablet Oral Albuterol Sulfate (2.5 MG/3ML) 0.083% Nebulization Solution Inhalation Taking Robitussin DM Taking Mucinex 600 MG Tablet Extended Release 12 Hour 1 tablet as needed Orally every 12 hrs Taking MiraLax 17 GM/SCOOP Powder 1 scoop mixed with 8 ounces of fluid Orally every 2 to 3 days , Notes to Pharmacist: as neededTaking Atorvastatin Calcium 10 MG Tablet 1 tablet Orally at bed time Taking Azithromycin 500 MG Tablet Oral Taking Albuterol Sulfate (2.5 MG/3ML) 0.083% Nebulization Solution Inhalation DiscontinuedMagnesium 400 MG Capsule 1 tablet Orally at bed time guaiFENesin ER 600 MG Tablet Extended Release 12 Hour 1 tablet Oral twice a day As neededAzithromycin 500 MG Tablet Oral Medication List reviewed and reconciled with the patientDiscontinued Magnesium 400 MG Capsule 1 tablet Orally at bed time Discontinued guaiFENesin ER 600 MG Tablet Extended Release 12 Hour 1 tablet Oral twice a day As neededDiscontinued Azithromycin 500 MG Tablet Oral Medication List reviewed and reconciled with the patient * Allergies:?No Known Drug All ergyno[Allergies Verified] Objective: * Vitals:?Ht: 76, Wt:150, BMI: 18.26, BP:120/71, HR:88, Temp:97.4, Wt-k.04. * Examination: ???General Examination: ?GENERAL APPEARANCE:?pleasant, well nourished, well developed, in no acute distress, calm and relaxed, underweight, elderly man.?HEAD:?atraumatic, normocephalic.?EYES:?eomi, perrla, anicteric, conjugate.?EARS:?normal.?NOSE:?septum intact.?ORAL CAVITY:?normal, unremarkable.?NECK/THYROID:?no jugular venous distention, no carotid bruit, thyroid normal.?LYMPH NODES:?no enlarged lymph nodes,spleen normal.?SKIN:?no suspicious lesions, anicteric.?HEART:?no clicks, gallops, murmurs, or rubs, regular rhythm, S1, S2 normal, no s3, or vascular bruits.?LUNGS:??diminished breath sounds throughout, rhonchi on the RIGHT, rhonchi on the LEFT.?BREASTS:??no masses palpable bilaterally.?ABDOMEN:?bowel sounds normal, no ascites, no organomegaly, no mass.?RECTAL EXAM:?not examined.?MUSCULOSKELETAL:?extremities unremarkable, no clubbing, cyanosis or edema.?PERIPHERAL PULSES:?normal.?NEUROLOGIC:?alert and oriented, cranial nerves 2-12 grossly intact, deep tendon reflexes 2+ symmetrical, motor strength normal upper and lower extremities, sensory exam intact, Moderate impairment of cognitive function and memory but improved compared to last exam..?PSYCH:?alert, oriented.? Assessment: * Assessment: 1.?Nontraumatic hemorrhage o [...] the stroke. He will continue on his medications.???3.?Pneumonia - J18.9???Notes :He is taking the azithromycin 3 times a week.? The other antibiotic has been discontinued.? The pneumonia has resolved.? He is breathing comfortably.???4.?Underweight - R63.6???Notes :He has lost over 20 pounds since his last visit. His body mass index is 18. We discussed nutrition at length today.???5.?Seizures - R56.9???Notes :Just before discharge from an [facility] rehabilitation he was begun on Keppra for periods of unresponsiveness. A repeat CT scan November 18, 2024 showed improvement in the hemorrhage and edema. The Her will be discontinued until the electroencephalogram is done. We have requested a repeat visit from [facility] neurology.???6.?Former smoker - Z87.891???Notes :He has a strategy to prevent relapse in times of stress and illness.???7.?Mycobacterial infection, unspecified - A31.9???Notes :He continues on daily basis Romycin. He has been told by pulmonary that his infection is making progress. The CT scan of November 29 show stability in the 1.3 cm right upper lobe cavitary leesion.???8.?Sleep apnea in adult - G47.30???Notes :He is using the new CPAP machine without difficulty and is pleased with the results.???9.?Benign prostatic hyperplasia with lower urinary tract symptoms - N40.1???Notes :He says he is rising from sleep up to 4 times a night. His tamsulosin waas stopped because of a low blood pressure. It curtis now resumed. He is happy with this level of control. We discussed further lifestyle modifications he can maake to reduce nocturia.??? Plan: * Treatment: * Procedure Codes:? * Preventive Medicine:? ??Counseling:?Care [...] dangers of tobacco use and urged to quit.?12/19/2024 * Follow Up:?As Scheduled (Lien son: Annual Exam) * Images: * Sign off status: Completed true * Provider:?Robbie Kothari MD Date:?03/2025 Generated for Chip andres/Awais/Juaquinitting on:?12/29/2024 09:48 AM EDT History and Physical Notes * HPI (History of Present Illness) Category Sub-Category Detail Notes COVID-19 Screening Questions Have you had any new onset fever, chills, cough, congestion, sore throat, shortness of breath, muscle aches?: No Examination Category Sub-Category Detail Notes General Examination GENERAL APPEARANCE: pleasant , well nourished, well developed, in no acute distress, calm and relaxed, underweight, elderly man HEAD: atraumatic, normocep halic EYES: eomi, perrla, anicte marifer, conjugate EARS: normal NOSE: septum intact NECK/THYROID: no jugular venous di stention, no carotid bruit, thyroid normal HEART: no clicks, gallops, murmurs, or rubs, regular rhythm, S1, S2 normal, no s3, or vascular bruits LUNGS: diminished breath so unds throughout, rhonchi on the RIGHT, rhonchi on the LEFT ABDOMEN: bowel sounds normal, no ascites, no organomegaly, no mass NEUROLOGIC: alert and oriented, cranial nerves 2-12 grossly intact, deep tendon reflexes 2+ symmetrical, motor strength normal upper and lower extremities, sensory exam intact, Moderate impairment of cognitive function and memory but improved compared to last exam. SKIN: no suspicious lesion s, anicteric PERIPHERAL PULSES: normal BREASTS: no masses palpable b ilaterally MUSCULOSKELETAL: extremities unremark able, no clubbing, cyanosis or edema LYMPH NODES: no enlarged lymph no neno,spleen normal RECTAL EXAM: not examined PSYCH: alert, oriented ORAL CAVITY: normal, unremarkable
--- OUTSIDE RECORDS SUMMARY | 2024-12-29 09:49 | XMS_ITS ---
Author Organization [facility] Address [address] [place] [address] Care Team Providers Care Manager Programs Name Role Phone Robbie Kothari MD Primary Care Provider UnavailAna Damon Unavailable [phone] Allergies Allergen (clinical drug ingredient) Drug/Non Drug [...] 025 Encounters Encounter Location Date Provider Diagnosis [facility] [address] [place] [address] 09/27/2024 Ana Hernandez Tinea unguium B35.1 ; [...] Reason: Provider Name:Ana garduno, 03/28/2025 11:15:00 AM, [address] [place] [address], [phone], Procedure Notes * Category Sub-Category Detail Notes [...] use of a nail nipper and/or dremel-type tooth grinder, to a more viable healthy nail [...] to maintain effectiveness in symptomatic relief - 64279 Progress Notes * Freeman ROCHADOB: 0 (84 yo M)Acc No.[id number]:09/27/2024 Progress Note Patient:?Freeman ROCHA Provider:?Ana Hernandez DPM :1940???Age:84 Y???Sex:Male Lokesh e:09/27/2024 Address:[id number] Pcp:Robbie Kothari MD Subjective: * Chief Complaints: [...] use of a nail nipper and/or dremel-type tooth grinder, to a more viable healthy nail [...] to maintain effectiveness in symptomatic relief - 34642.? * Procedure Codes:?69754 DEBRI DE NAIL, 6 OR MORE, Modifiers: XS * Follow Up:?3 Months * Images: * Sign off status: Completed true * Provider:Naresh Hernandez, KATERINA Date:? Generated for Chip andres/Awais/Tiffanie on:?12/29/2024 09:49 [...]
--- OUTSIDE RECORDS SUMMARY | 2024-12-29 09:49 | XMS_ITS | Encounter Summary ---
Author Organization [facility] Address [address] [place] [address] Care Team Providers Care Mason Apprentice Name Role Phone Gloria Preston MD Primary Care Provider [phone] Encounter Details Date Type Department Care Team (Late st Contact Info) Description 11/14/2024 Lab Requisition [facility] - Main Lab [address] [facility] [place] [address] Gloria Preston MD [address] [place] [id number] Encounter for other general examination Social History [...] AM EST) WBC 4.3(L) 4.8 - 10.8 K/[facility] LAB HEMETOLOGY METHOD 11/14/2024 10:05 AM [facility] RBC 4.00(L) 4.50 - 5.50 M/mcL LAB HEMETOLOGY METHOD 11/14/2024 10:05 AM [facility] Hemoglobin 13.0(L) 13.5 - 17.5 g/dL LAB HEMETOLOGY METHOD 11/14/2024 10:05 AM [facility] Hematocrit 37.6(L) 42.0 - 54.0 % LAB HEMETOLOGY METHOD 11/14/2024 10:05 AM [facility] MCV 93.5 79.0 - 98.0 FL LAB HEMETOLOGY METHOD 11/14/2024 10:05 AM [facility] MCH 32.3(H) 27.0 - 32.0 pcg LAB HEMETOLOGY METHOD 11/14/2024 10:05 AM [facility] MCHC 34.6 32.0 - 37.0 g/dL LAB HEMETOLOGY METHOD 11/14/2024 10:05 AM [facility] RDW 12.4 11.0 - 15.0 % LAB HEMETOLOGY METHOD 11/14/2024 10:05 AM [facility] Platelets 368 130 - 400 K/mcL LAB HEMETOLOGY METHOD 11/14/2024 10:05 AM [facility] MPV 9.7 7.0 - 11.0 FL LAB HEMETOLOGY METHOD 11/14/2024 10:05 AM [facility] NRBC 0.0 <1.0 % LAB HEMETOLOGY METHOD 11/14/2024 10:05 AM [facility] NRBC Absolute 0.00 <0.10 K/mcL LAB HEMETOLOGY METHOD 11/14/2024 10:05 AM [facility] Neutrophils Relative 76.1 % LAB HEMETOLOGY METHOD 11/14/2024 10:05 AM [facility] Lymphocytes Relative 10.3 % LAB HEMETOLOGY METHOD 11/14/2024 10:05 AM [facility] Monocytes Relative 11.0 % LAB HEMETOLOGY METHOD 11/14/2024 10:05 AM [facility] Eosinophils Relative 1.2 % LAB HEMETOLOGY METHOD 11/14/2024 10:05 AM [facility] Basophils Relative 0.9 % LAB HEMETOLOGY METHOD 11/14/2024 10:05 AM [facility] Immature Granulocytes Relative 0.5 % LAB HEMETOLOGY METHOD 11/14/2024 10:05 AM [facility] Neutrophils Absolute 3.26 1.50 - 7.00 K/mcL LAB HEMETOLOGY METHOD 11/14/2024 10:05 AM [facility] Lymphocytes Absolute 0.44(L) 1.00 - 5.00 K/mcL LAB HEMETOLOGY METHOD 11/14/2024 10:05 AM [facility] Monocytes Absolute 0.47 0.20 - 1.00 K/mcL LAB HEMETOLOGY METHOD 11/14/2024 10:05 AM [facility] Eosinophils Absolute 0.05 0.00 - 0.50 K/mcL LAB HEMETOLOGY METHOD 11/14/2024 10:05 AM [facility] Basophils Absolute 0.04 0.00 - 0.20 K/mcL LAB HEMETOLOGY METHOD 11/14/2024 10:05 AM [facility] Immature Granulocytes Absolute 0.02 0.00 - 0.03 K/mcL LAB HEMETOLOGY METHOD 11/14/2024 10:05 AM [facility] Blood Venous blood specimen / Unknown Venipuncture / Unknown 11/14/2024 6:36 AM EST 11/14/2024 8:21 AM EST us Gloria Preston MD LAB BLOOD ORDERABLES Final Resu lt [facility] [address] [place] [address], * (ABNORMAL) Basic metabolic panel (11/14/2024 6:36 AM EST) Sodium 135 133 - 145 mmol/L LAB CHEMISTRY METHOD 11/14/2024 10:43 AM [facility] Potassium 4.0 3.5 - 5.5 mmol/L LAB CHEMISTRY METHOD 11/14/2024 10:43 AM [facility] Chloride 101 96 - 110 mmol/L LAB CHEMISTRY METHOD 11/14/2024 10:43 AM [facility] CO2 24 21 - 32 mmol/L LAB CHEMISTRY METHOD 11/14/2024 10:43 AM [facility] Anion Gap 10 3 - 11 LAB CHEMISTRY METHOD 11/14/2024 10:43 AM [facility] Glucose 86 70 - 100 mg/dL LAB CHEMISTRY METHOD 11/14/2024 10:43 AM [facility] BUN 22 5 - 25 mg/dL LAB CHEMISTRY METHOD 11/14/2024 10:43 AM [facility] Creatinine 0.59(L) 0.70 - 1.30 mg/dL LAB CHEMISTRY METHOD 11/14/2024 10:43 AM [facility] eGFR 96 >=60 mL/min/1. 73m2 LAB CHEMISTRY METHOD 11/14/2024 10:43 AM [facility] Comment:Calculation based on the??Chronic Kidney Disease Epidemiology Collaboration (CKD-EPI) equation refit??without adjustment for race. BUN/Creatinine Ratio 37.3 LAB CHEMISTRY METHOD 11/14/2024 10:43 AM [facility] Calcium 9.0 8.5 - 10.5 mg/dL LAB CHEMISTRY METHOD 11/14/2024 10:43 AM EST [facility] Blood Venous blood specimen / Unknown Venipuncture / Unknown 11/14/2024 6:36 AM EST 11/14/2024 8:21 AM EST us Gloria Preston MD LAB BLOOD ORDERABLES Final Resu lt [facility] [address] [place] [address], documented in this encounter Visit Diagnoses Diagnosis Encounter for other general examination documented in this encounter Care Teams Mason Apprentice Relationship Specialty Start Date End Date Gloria Preston MD [address] [place] [id number] PCP - General Hospitalist Medicine 11/05/24 documented as of this encounter
--- OUTSIDE RECORDS SUMMARY | 2024-12-29 09:49 | XMS_ITS | Clinical Summary ---
Author Organization 299 [facility] Address [address] [place] [address] Phone Care Team Providers Care Architectural Engineer Name Role Phone Gloria Preston MD Primary Care Provider Encounters Date Type Department Care Team Description 11/18/2024 Lab Requisition [facility] [address] [place] [address] Gloria Preston MD Encounter for other general examination 11/16/2024 Lab Requisition [facility] [address] [place] [address] Gloria Preston MD Encounter for other general examination 11/14/2024 Lab Requisition [facility] [address] [place] [address] Gloria Preston MD Encounter for other general examination 11/10/2024 Lab Requisition [facility] [address] [place] [address] Gloria Preston MD Encounter for other general examination 11/07/2024 Lab Requisition [facility] [address] [place] [address] Gloria Preston MD Encounter for other general examination 11/05/2024 Lab Requisition [facility] [address] [place] [address] Gloria Preston MD Encounter for other general [...] age to complete this topic Meningococcal B Vaccine Aged Out No l onger eligible based on patient's age to complete [...] K/mcL LAB HEMETOLOGY METHOD 11/18/2024 4:02 PM [facility] RBC 3.90(L) 4.50 - 5.50 M/mcL LAB HEMETOLOGY METHOD 11/18/2024 4:02 PM [facility] LAB Hemoglobin 12.8(L) 13.5 - 17.5 g/dL LAB HEMETOLOGY METHOD 11/18/2024 4:02 PM [facility] LAB Hematocrit 37.1(L) 42.0 - 54.0 % LAB HEMETOLOGY METHOD 11/18/2024 4:02 PM [facility] LAB MCV 94.2 79.0 - 98.0 FL LAB HEMETOLOGY METHOD 11/18/2024 4:02 PM [facility] LAB MCH 32.5(H) 27.0 - 32.0 pcg LAB HEMETOLOGY METHOD 11/18/2024 4:02 PM [facility] LAB MCHC 34.5 32.0 - 37.0 g/dL LAB HEMETOLOGY METHOD 11/18/2024 4:02 PM [facility] LAB RDW 12.7 11.0 - 15.0 % LAB HEMETOLOGY METHOD 11/18/2024 4:02 PM [facility] LAB Platelets 269 130 - 400 K/mcL LAB HEMETOLOGY METHOD 11/18/2024 4:02 PM [facility] LAB MPV 9.8 7.0 - 11.0 FL LAB HEMETOLOGY METHOD 11/18/2024 4:02 PM [facility] LAB NRBC 0.0 <1.0 % LAB HEMETOLOGY METHOD 11/18/2024 4:02 PM [facility] LAB NRBC Absolute 0.00 <0.10 K/mcL LAB HEMETOLOGY METHOD 11/18/2024 4:02 PM [facility] LAB Neutrophils Relative 70.4 % LAB HEMETOLOGY METHOD 11/18/2024 4:02 PM [facility] Lymphocytes Relative 16.0 % LAB HEMETOLOGY METHOD 11/18/2024 4:02 PM [facility] Monocytes Relative 12.8 % LAB HEMETOLOGY METHOD 11/18/2024 4:02 PM [facility] Eosinophils Relative 0.0 % LAB HEMETOLOGY METHOD 11/18/2024 4:02 PM [facility] Basophils Relative 0.5 % LAB HEMETOLOGY METHOD 11/18/2024 4:02 PM [facility] LAB Immature Granulocytes Relative 0.3 % LAB HEMETOLOGY METHOD 11/18/2024 4:02 PM [facility] Neutrophils Absolute 2.64 1.50 - 7.00 K/mcL LAB HEMETOLOGY METHOD 11/18/2024 4:02 PM [facility] LAB Lymphocytes Absolute 0.60(L) 1.00 - 5.00 K/mcL LAB HEMETOLOGY METHOD 11/18/2024 4:02 PM EST [facility] LAB Monocytes Absolute 0.48 0.20 - 1.00 K/[facility] LAB HEMETOLOGY METHOD 11/18/2024 4:02 PM [facility] LAB Eosinophils Absolute 0.00 0.00 - 0.50 K/[facility] LAB HEMETOLOGY METHOD 11/18/2024 4:02 PM EST [facility] LAB Basophils Absolute 0.02 0.00 - 0.20 K/[facility] LAB HEMETOLOGY METHOD 11/18/2024 4:02 PM [facility] Immature Granulocytes Absolute 0.01 0.00 - 0.03 K/[facility] LAB HEMETOLOGY METHOD 11/18/2024 4:02 PM [facility] Blood Venous blood specimen / Unknown Venipuncture / Unknown 11/18/2024 2:59 PM EST 11/18/2024 3:36 PM EST Gloria Preston MD LAB BLOOD ORDERABLES Final Resu lt Performing Organization Address City/[facility]/ZIP Co de Phone Number [facility] [address] [place] [address], [place] [phone] * Prolactin (11/18/2024 2:59 PM EST) Prolactin 12.10 2.50 - 17.40 ng/mL LAB CHEMISTRY METHOD 11/18/2024 7:21 PM EST [facility] Blood Venous blood specimen / Unknown Venipuncture / Unknown 11/18/2024 2:59 PM EST 11/18/2024 3:36 PM EST us Gloria Preston MD LAB BLOOD ORDERABLES Final Resu lt [facility] [address] [place] [address], [place] [phone] * (ABNORMAL) Magnesium (11/18/2024 2:59 PM EST) Only the most recent of3 resultswithin the time period is included. [facility] Magnesium 1.6(L) 1.9 - 2.6 mg/dL LAB CHEMISTRY METHOD 11/18/2024 7:07 PM [facility] Blood Venous blood specimen / Unknown Venipuncture / Unknown 11/18/2024 2:59 PM EST 11/18/2024 3:36 PM EST us Gloria Preston MD LAB BLOOD ORDERABLES Final Resu lt [facility] [address] [place] [address], [place] [phone] * (ABNORMAL) Comprehensive metabolic panel (11/18/2024 2:59 PM EST) Only the most recent of3 resultswithin the time period is included. [facility] Sodium 134 133 - 145 mmol/L LAB CHEMISTRY METHOD 11/18/2024 7:21 PM [facility] Potassium 3.9 3.5 - 5.5 mmol/L LAB CHEMISTRY METHOD 11/18/2024 7:21 PM [facility] Chloride 98 96 - 110 mmol/L LAB CHEMISTRY METHOD 11/18/2024 7:21 PM [facility] CO2 27 21 - 32 mmol/L LAB CHEMISTRY METHOD 11/18/2024 7:21 PM [facility] Anion Gap 9 3 - 11 LAB CHEMISTRY METHOD 11/18/2024 7:21 PM [facility] Glucose 96 70 - 100 mg/dL LAB CHEMISTRY METHOD 11/18/2024 7:21 PM [facility] BUN 16 5 - 25 mg/dL LAB CHEMISTRY METHOD 11/18/2024 7:21 PM [facility] Creatinine 0.68(L) 0.70 - 1.30 mg/dL LAB CHEMISTRY METHOD 11/18/2024 7:21 PM [facility] LAB eGFR 92 >=60 mL/min/1. 73m2 LAB CHEMISTRY METHOD 11/18/2024 7:21 PM [facility] LAB Comment:Calculation based on the??Chronic Kidney Disease Epidemiology Collaboration (CKD-EPI) equation refit??without adjustment for race. BUN/Creatinine Ratio 23.5 LAB CHEMISTRY METHOD 11/18/2024 7:21 PM [facility] Calcium 8.8 8.5 - 10.5 mg/dL LAB CHEMISTRY METHOD 11/18/2024 7:21 PM [facility] AST (SGOT) 25 10 - 42 unit/L LAB CHEMISTRY METHOD 11/18/2024 7:21 PM [facility] ALT (SGPT) 22 10 - 60 unit/L LAB CHEMISTRY METHOD 11/18/2024 7:21 PM [facility] Alkaline Phosphatase 89 42 - 121 unit/L LAB CHEMISTRY METHOD 11/18/2024 7:21 PM [facility] Total Protein 6.5 6.0 - 8.0 g/dL LAB CHEMISTRY METHOD 11/18/2024 7:21 PM [facility] Albumin 2.8(L) 3.2 - 5.0 g/dL LAB CHEMISTRY METHOD 11/18/2024 7:21 PM [facility] Total Bilirubin 0.3 0.0 - 1.4 mg/dL LAB CHEMISTRY METHOD 11/18/2024 7:21 PM [facility] Blood Venous blood specimen / Unknown Venipuncture / Unknown 11/18/2024 2:59 PM EST 11/18/2024 3:36 PM EST us Gloria Preston MD LAB BLOOD ORDERABLES Final Resu lt [facility] [address] [place] [address], [place] [phone] * (ABNORMAL) Basic metabolic panel (11/16/2024 5:44 AM EST) Only the most recent of3 resultswithin the time period is included. Sodium 135 133 - 145 mmol/L LAB CHEMISTRY METHOD 11/16/2024 2:30 PM [facility] Potassium 4.1 3.5 - 5.5 mmol/L LAB CHEMISTRY METHOD 11/16/2024 2:30 PM [facility] Chloride 99 96 - 110 mmol/L LAB CHEMISTRY METHOD 11/16/2024 2:30 PM [facility] CO2 25 21 - 32 mmol/L LAB CHEMISTRY METHOD 11/16/2024 2:30 PM [facility] Anion Gap 11 3 - 11 LAB CHEMISTRY METHOD 11/16/2024 2:30 PM [facility] Glucose 79 70 - 100 mg/dL LAB CHEMISTRY METHOD 11/16/2024 2:30 PM [facility] BUN 18 5 - 25 mg/dL LAB CHEMISTRY METHOD 11/16/2024 2:30 PM [facility] Creatinine 0.64(L) 0.70 - 1.30 mg/dL LAB CHEMISTRY METHOD 11/16/2024 2:30 PM [facility] LAB eGFR 93 >=60 mL/min/1. 73m2 LAB CHEMISTRY METHOD 11/16/2024 2:30 PM [facility] Comment:Calculation based on the??Chronic Kidney Disease Epidemiology Collaboration (CKD-EPI) equation refit??without adjustment for race. BUN/Creatinine Ratio 28.1 LAB CHEMISTRY METHOD 11/16/2024 2:30 PM [facility] Calcium 8.9 8.5 - 10.5 mg/dL LAB CHEMISTRY METHOD 11/16/2024 2:30 PM [facility] Blood Venous blood specimen / Unknown Venipuncture / Unknown 11/16/2024 5:44 AM EST 11/16/2024 10:20 AM EST us Gloria Preston MD LAB BLOOD ORDERABLES Final Resu lt Performing Organization Address [facility]/[place] Co de Phone Number [facility] [address] [place] [address], [place] [phone] * Thyroid stimulating hormone (11/10/2024 6:06 AM EST) [facility] TSH 1.57 0.40 - 4.00 mcIU/mL LAB CHEMISTRY METHOD 11/10/2024 9:51 PM EST [facility] Blood Venous blood specimen / Unknown Venipuncture / Unknown 11/10/2024 6:06 AM EST 11/10/2024 8:03 AM EST us Gloria Preston MD LAB BLOOD ORDERABLES Final Resu lt Performing Organization Address [facility] de Phone Number [facility] [address] [place] [address], [place] [phone] * Vitamin B12 (11/10/2024 6:06 AM EST) [facility] Vitamin B-12 413 250 - 900 pcg/mL LAB CHEMISTRY METHOD 11/10/2024 9:28 PM EST [facility] Blood Venous blood specimen / Unknown Venipuncture / Unknown 11/10/2024 6:06 AM EST 11/10/2024 8:03 AM EST us Gloria Preston MD LAB BLOOD ORDERABLES Final Resu lt Performing Organization Address [facility]/ZIP Co de Phone Number [facility] [address] [place] [address], [place] [phone] from Last 3 Months Insurance [employer] Care Teams Architectural Engineer Relationship Specialty Start Date End Date Gloria Preston MD [address] [place] [phone] PCP - General Hospitalist Medicine 11/05/24
--- OUTSIDE RECORDS SUMMARY | 2024-12-29 09:49 | XMS_ITS | Encounter Summary ---
Author Organization [facility] Address [address] [place] [address] Care Team Providers Care Tele Grout Sewer Line Repairer Name Role Phone Gloria Preston MD Primary Care Provider [phone] Encounter Details Date Type Department Care Team (Late st Contact Info) Description 11/07/2024 Lab Requisition [facility] - Main Lab [address] [place] [address] Gloria Preston MD [address] [place] [address] Encounter for other general examination Social History [...] LAB CHEMISTRY METHOD 11/07/2024 1:06 PM EST [facility] Potassium 3.9 3.5 - 5.5 mmol/L LAB CHEMISTRY METHOD 11/07/2024 1:06 PM EST [facility] Chloride 99 96 - 110 mmol/L LAB CHEMISTRY METHOD 11/07/2024 1:06 PM [facility] CO2 22 21 - 32 mmol/L LAB CHEMISTRY METHOD 11/07/2024 1:06 PM [facility] Anion Gap 13(H) 3 - 11 LAB CHEMISTRY METHOD 11/07/2024 1:06 PM [facility] Glucose 78 70 - 100 mg/dL LAB CHEMISTRY METHOD 11/07/2024 1:06 PM [facility] BUN 20 5 - 25 mg/dL LAB CHEMISTRY METHOD 11/07/2024 1:06 PM [facility] Creatinine 0.55(L) 0.70 - 1.30 mg/dL LAB CHEMISTRY METHOD 11/07/2024 1:06 PM [facility] eGFR 98 >=60 mL/min/1. 73m2 LAB CHEMISTRY METHOD 11/07/2024 1:06 PM [facility] Comment:Calculation based on the??Chronic Kidney Disease Epidemiology Collaboration (CKD-EPI) equation refit??without adjustment for race. BUN/Creatinine Ratio 36.4 LAB CHEMISTRY METHOD 11/07/2024 1:06 PM [facility] Calcium 8.6 8.5 - 10.5 mg/dL LAB CHEMISTRY METHOD 11/07/2024 1:06 PM [facility] AST (SGOT) 44(H) 10 - 42 unit/L LAB CHEMISTRY METHOD 11/07/2024 1:06 PM [facility] Comment:Results verified by repeat testing ALT (SGPT) 41 10 - 60 unit/L LAB CHEMISTRY METHOD 11/07/2024 1:06 PM [facility] Comment:Results verified by repeat testing Alkaline Phosphatase 100 42 - 121 unit/L LAB CHEMISTRY METHOD 11/07/2024 1:06 PM [facility] Total Protein 6.4 6.0 - 8.0 g/dL LAB CHEMISTRY METHOD 11/07/2024 1:06 PM EST [facility] Albumin 2.7(L) 3.2 - 5.0 g/dL LAB CHEMISTRY METHOD 11/07/2024 1:06 PM EST [facility] Total Bilirubin 1.1 0.0 - 1.4 mg/dL LAB CHEMISTRY METHOD 11/07/2024 1:06 PM EST [facility] Blood Venous blood specimen / Unknown Venipuncture / Unknown 11/07/2024 5:23 AM EST 11/07/2024 10:38 AM EST us Gloria Preston MD LAB BLOOD ORDERABLES Final Resu lt [facility] [address] [place] [address], documented in this encounter Visit Diagnoses Diagnosis Encounter for other general examination documented in this encounter Care Teams Tele Grout Sewer Line Repairer Relationship Specialty Start Date End Date Gloria Preston MD [address] [place] [phone] PCP - General Hospitalist Medicine 11/05/24 documented as of this encounter
--- OUTSIDE RECORDS SUMMARY | 2024-12-29 09:50 | XMS_ITS | Encounter Summary ---
Author Organization [facility] Address [address] [place] [address] Care Team Providers Care Application Security Specialist Name Role Phone Gloria Preston MD Primary Care Provider [phone] Encounter Details Date Type Department Care Team (Late st Contact Info) Description 11/18/2024 Lab Requisition [facility] - Main Lab [address] [facility] [place] [address] Gloria Preston MD [address] [place] [address] Encounter for other general examination Social History [...] K/mcL LAB HEMETOLOGY METHOD 11/18/2024 4:02 PM [facility] RBC 3.90(L) 4.50 - 5.50 M/mcL LAB HEMETOLOGY METHOD 11/18/2024 4:02 PM [facility] Hemoglobin 12.8(L) 13.5 - 17.5 g/dL LAB HEMETOLOGY METHOD 11/18/2024 4:02 PM [facility] Hematocrit 37.1(L) 42.0 - 54.0 % LAB HEMETOLOGY METHOD 11/18/2024 4:02 PM [facility] MCV 94.2 79.0 - 98.0 FL LAB HEMETOLOGY METHOD 11/18/2024 4:02 PM [facility] MCH 32.5(H) 27.0 - 32.0 pcg LAB HEMETOLOGY METHOD 11/18/2024 4:02 PM [facility] MCHC 34.5 32.0 - 37.0 g/dL LAB HEMETOLOGY METHOD 11/18/2024 4:02 PM [facility] RDW 12.7 11.0 - 15.0 % LAB HEMETOLOGY METHOD 11/18/2024 4:02 PM [facility] Platelets 269 130 - 400 K/mcL LAB HEMETOLOGY METHOD 11/18/2024 4:02 PM [facility] MPV 9.8 7.0 - 11.0 FL LAB HEMETOLOGY METHOD 11/18/2024 4:02 PM [facility] NRBC 0.0 <1.0 % LAB HEMETOLOGY METHOD 11/18/2024 4:02 PM [facility] NRBC Absolute 0.00 <0.10 K/mcL LAB HEMETOLOGY METHOD 11/18/2024 4:02 PM [facility] Neutrophils Relative 70.4 % LAB HEMETOLOGY METHOD 11/18/2024 4:02 PM [facility] Lymphocytes Relative 16.0 % LAB HEMETOLOGY METHOD 11/18/2024 4:02 PM [facility] Monocytes Relative 12.8 % LAB HEMETOLOGY METHOD 11/18/2024 4:02 PM [facility] Eosinophils Relative 0.0 % LAB HEMETOLOGY METHOD 11/18/2024 4:02 PM [facility] Basophils Relative 0.5 % LAB HEMETOLOGY METHOD 11/18/2024 4:02 PM [facility] Immature Granulocytes Relative 0.3 % LAB HEMETOLOGY METHOD 11/18/2024 4:02 PM [facility] Neutrophils Absolute 2.64 1.50 - 7.00 K/mcL LAB HEMETOLOGY METHOD 11/18/2024 4:02 PM [facility] Lymphocytes Absolute 0.60(L) 1.00 - 5.00 K/mcL LAB HEMETOLOGY METHOD 11/18/2024 4:02 PM [facility] Monocytes Absolute 0.48 0.20 - 1.00 K/mcL LAB HEMETOLOGY METHOD 11/18/2024 4:02 PM [facility] Eosinophils Absolute 0.00 0.00 - 0.50 K/mcL LAB HEMETOLOGY METHOD 11/18/2024 4:02 PM [facility] Basophils Absolute 0.02 0.00 - 0.20 K/mcL LAB HEMETOLOGY METHOD 11/18/2024 4:02 PM [facility] Immature Granulocytes Absolute 0.01 0.00 - 0.03 K/mcL LAB HEMETOLOGY METHOD 11/18/2024 4:02 PM EST [facility] Blood Venous blood specimen / Unknown Venipuncture / Unknown 11/18/2024 2:59 PM EST 11/18/2024 3:36 PM EST us Gloria Perston MD LAB BLOOD ORDERABLES Final Resu lt Performing Organization Address [facility]/ZIP Co de Phone Number [facility] [address] [place] [address], [place] [phone] * Prolactin (11/18/2024 2:59 PM EST) Pathologist [facility] Prolactin 12.10 2.50 - 17.40 ng/mL LAB CHEMISTRY METHOD 11/18/2024 7:21 PM EST [facility] Blood Venous blood specimen / Unknown Venipuncture / Unknown 11/18/2024 2:59 PM EST 11/18/2024 3:36 PM EST us Gloria Preston MD LAB BLOOD ORDERABLES Final Resu lt Performing Organization Address [facility]/ZIP Co de Phone Number [facility] [address] [place] [address], [place] [phone] * (ABNORMAL) Magnesium (11/18/2024 2:59 PM EST) [facility] Magnesium 1.6(L) 1.9 - 2.6 mg/dL LAB CHEMISTRY METHOD 11/18/2024 7:07 PM EST [facility] Blood Venous blood specimen / Unknown Venipuncture / Unknown 11/18/2024 2:59 PM EST 11/18/2024 3:36 PM EST us Gloria Preston MD LAB BLOOD ORDERABLES Final Resu lt Performing Organization Address [facility]/ZIP Co de Phone Number [facility] [address] [place] [address], [place] [phone] * (ABNORMAL) Comprehensive metabolic panel (11/18/2024 2:59 PM EST) Sodium 134 133 - 145 mmol/L LAB CHEMISTRY METHOD 11/18/2024 7:21 PM [facility] Potassium 3.9 3.5 - 5.5 mmol/L LAB CHEMISTRY METHOD 11/18/2024 7:21 PM [facility] Chloride 98 96 - 110 mmol/L LAB CHEMISTRY METHOD 11/18/2024 7:21 PM [facility] CO2 27 21 - 32 mmol/L LAB CHEMISTRY METHOD 11/18/2024 7:21 PM [facility] Anion Gap 9 3 - 11 LAB CHEMISTRY METHOD 11/18/2024 7:21 PM [facility] Glucose 96 70 - 100 mg/dL LAB CHEMISTRY METHOD 11/18/2024 7:21 PM [facility] BUN 16 5 - 25 mg/dL LAB CHEMISTRY METHOD 11/18/2024 7:21 PM [facility] Creatinine 0.68(L) 0.70 - 1.30 mg/dL LAB CHEMISTRY METHOD 11/18/2024 7:21 PM [facility] eGFR 92 >=60 mL/min/1. 73m2 LAB CHEMISTRY METHOD 11/18/2024 7:21 PM [facility] Comment:Calculation based on the??Chronic Kidney Disease Epidemiology Collaboration (CKD-EPI) equation refit??without adjustment for race. BUN/Creatinine Ratio 23.5 LAB CHEMISTRY METHOD 11/18/2024 7:21 PM [facility] Calcium 8.8 8.5 - 10.5 mg/dL LAB CHEMISTRY METHOD 11/18/2024 7:21 PM [facility] AST (SGOT) 25 10 - 42 unit/L LAB CHEMISTRY METHOD 11/18/2024 7:21 PM [facility] ALT (SGPT) 22 10 - 60 unit/L LAB CHEMISTRY METHOD 11/18/2024 7:21 PM EST [facility] Alkaline Phosphatase 89 42 - 121 unit/L LAB CHEMISTRY METHOD 11/18/2024 7:21 PM EST [facility] Total Protein 6.5 6.0 - 8.0 g/dL LAB CHEMISTRY METHOD 11/18/2024 7:21 PM [facility] Albumin 2.8(L) 3.2 - 5.0 g/dL LAB CHEMISTRY METHOD 11/18/2024 7:21 PM [facility] Total Bilirubin 0.3 0.0 - 1.4 mg/dL LAB CHEMISTRY METHOD 11/18/2024 7:21 PM [facility] Blood Venous blood specimen / Unknown Venipuncture / Unknown 11/18/2024 2:59 PM EST 11/18/2024 3:36 PM EST us Gloria Preston MD LAB BLOOD ORDERABLES Final Resu lt [facility] [address] [place] [address], [place] [phone] documented in this encounter Visit Diagnoses Diagnosis Encounter for other general examination documented in this encounter Care Teams Application Security Specialist Relationship Specialty Start Date End Date Gloria Preston MD [address] [place] [phone] PCP - General Hospitalist Medicine 11/05/24 documented as of this encounter
--- OUTSIDE RECORDS SUMMARY | 2024-12-29 09:50 | XMS_ITS ---
Author Organization [facility] Address [address] [place] [address] Care Team Providers Care Casting Director Name Role Phone Robbie Kothari MD Primary Care Provider UnavailAna Damon Unavailable [phone] Allergies Allergen (clinical drug ingredient) Drug/Non Drug [...] 06/28/2024 Encounters Encounter Location Date [facility] [address] [place] [address] 06/28/2024 Ana Hernandez Tinea unguium B35.1 ; [...] Reason: Provider Name:Ana garduno, 03/28/2025 11:15:00 AM, [address] [place] [address], [phone], Procedure Notes * Category Sub-Category Detail Notes [...] as necessary. Patient chooses, no pharmaceutical tx (76860) Progress Notes * Freeman RCOHADOB: 0 (84 yo M)Acc No.[id number]:06/28/2024 Progress Note Patient:?Freeman Rocha Provider:?Ana Hernandez DPM :1940???Age:84 Y???Sex:Male Lokesh e:06/28/2024 [phone] Pcp:Robbie Kothari MD Subjective: * Chief Complaints: [...] yes, walking. ?Marital status: . ?Occupation: Retired- [employer]. * Medications:?TakingAtorvasta tin Calcium 10 MG Tablet [...] as necessary. Patient chooses, no pharmaceutical tx (08682).? * Procedure Codes:?33807 DEBRI DE NAIL, 6 OR MORE, Modifiers: XS * Follow Up:?3 Months * Images: * Sign off status: Completed true * Provider:?Ana Hernandez, DPAntonio Date:? Generated for Chip andres/Awais/eTransmitting on:?12/29/2024 09:49 AM EDT History and Physical [...]
[2024-12-29 10:23] LABS: Basophils Absolute Auto 0.1 X10*3/uL (0.0-0.2); Basophils Percent Auto 0.8 % (0-2); Eosinophils Absolute Auto 0.1 X10*3/uL (0.0-0.4); Eosinophils Percent Auto 1.9 % (0-4); Hematocrit 41.5 % (42.0-52.0); Hemoglobin 14.3 g/dl (14.0-18.0); Imm Gran Abs Auto 0.03 X10*3/uL (0.00-0.03); Imm Gran Pct Auto 0.5 % (0.0-0.4); Lymphocytes Percent Auto 14.7 % (20-40); Mean Corpuscular HGB Conc 34.5 g/dl (31.0-36.0); Mean Corpuscular Hemoglobin 32.1 pg (27.0-33.0); Mean Corpuscular Volume 93.3 fL (80.0-98.0); Mean Platelet Volume 9.8 fL (9.4-12.4); Monocytes Absolute Auto 0.7 X10*3/uL (0.1-1.2); Neutrophils Absolute Auto 4.6 x10*3/uL (2.0-8.3); Neutrophils Percent Auto 71.1 % (45-73); Platelet Count 303 X10*3/uL (160-400); Red Blood Count 4.45 X10*6/uL (4.60-5.80); Red Cell Distribution Width 13.6 % (11.0-16.0); White Blood Count 6.5 X10*3/uL (4.8-10.8)
[2024-12-29 11:11] LABS: Prostate Specific Antigen 2.95 ng/mL (<0.05-4.0)
[2024-12-29 11:45] LABS: Alanine Aminotransferase 26 U/L (0-40); Albumin Level 3.8 g/dL (3.5-5.0); Anion Gap 12 (12-20); Aspartate Amino Transferase 27 U/L (5-37); Bilirubin Total 0.5 mg/dL (0.0-1.0); Blood Urea Nitrogen 13 mg/dL (9-16); Calcium 9.9 mg/dL (8.4-10.2); Carbon Dioxide 29 mmol/L (22-29); Chloride 98 mmol/L (96-108); Cholesterol 164 mg/dL (<200); Estimated Glomerular Filt Rate > 60; Glucose Fasting 75 mg/dL (60-99); HDL Cholesterol 52 mg/dL (>40); LDL Cholesterol Calculated 96 mg/dL (<100); Potassium 4.2 mmol/L (3.3-5.1); Sodium 135 mmol/L (135-145); Total Protein 7.6 g/dL (6.5-8.0); Triglycerides 84 mg/dL (<150)
[2024-12-29 11:48] LABS: Alkaline Phosphatase 82 U/L (39-117)
== END 2024-12-29 08:58 | disposition home or self-care (01) ==
LOC: HO.LAB 08:57
PROVIDERS: PCP Internal Medicine Medical Oncology; Visit Provider Internal Medicine Medical Oncology
DX: Z12.5 Encounter for screening for malignant neoplasm of prostate (principal); E78.5 Hyperlipidemia, unspecified; N40.1 Benign prostatic hyperplasia with lower urinary tract symptoms
CPT/HCPCS: 36415; 80053; 80061; 84153; 85025

== ENCOUNTER 2024-12-30 09:39 | Inpatient (IN) | payer MEDICARE, SELFPAY ==
[2024-12-30] VITALS (13 sets, daily range): BP systolic 72–135; BP diastolic 43–77; PULSE 65–91; RESP 16–26; TEMP 36–37.7; O2SAT 92–98; BMI 19.1
--- NOTE | ~2024-12-30 | XR_ITS ---
EXAMINATION: XR CHEST CLINICAL INFORMATION: Cough, near-syncope, R/O pneumonia COMPARISON: Several priors, dating back to 10/27/2024. TECHNIQUE: Frontal view of the chest was obtained. FINDINGS: Cardiac size is normal. Lungs demonstrate hyperaeration, chronic scarring and bronchiectasis in the right upper lobe distribution, as well as the left midlung. There are new patchy opacities in the right lower lung medially. New foci in the retrocardiac region as well. No pneumothorax or effusion. No focal osseous or soft tissue abnormalities. XR/XR chest 1V IMPRESSION: 1. Compared with prior exams, new patchy opacities in the right medial lower lung, and retrocardiac region suspect for new infectious/inflammatory disease. 2. Chronic bronchiectasis, COPD, and reticular opacities in the right upper lobe and left midlung, similar to priors. Electronically signed by: Zohaib Brown MD 12/30/2024 12:10 PM EDT
--- NOTE | ~2024-12-30 | XR_ITS ---
EXAMINATION: XR WRIST, RIGHT CLINICAL INFORMATION: Right hand and wrist pain with swelling R/O fractu COMPARISON: None available. TECHNIQUE: PA, lateral, and oblique views of the right wrist. FINDINGS: Osteopenia versus osteoporosis. 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 No acute cortical disruption or malalignment. No subcutaneous emphysema.. XR/XR wrist RT 2V IMPRESSION: Degenerative changes. CPPD should be considered. No acute fracture or dislocation. Electronically signed by: Lázaro Ely MD 12/30/2024 01:00 PM EDT
--- NOTE | ~2024-12-30 | XR_ITS ---
EXAMINATION: XR HAND, RIGHT CLINICAL INFORMATION: Right hand and wrist pain with swelling R/O fractu COMPARISON: None available. TECHNIQUE: PA, lateral, and oblique views of the right hand. FINDINGS: Osteopenia versus osteoporosis. No acute cortical disruption or malalignment. No subcutaneous emphysema. Subtle chondrocalcinosis in the radiocarpal ulnar joint. No metallic or radiopaque foreign body. No osteolysis. XR/XR hand RT min 3V IMPRESSION: No acute fracture or dislocation. Consider CPPD. Electronically signed by: Lázaro Ely MD 12/30/2024 01:01 PM EDT
--- NOTE | ~2024-12-30 | CT_ITS ---
EXAMINATION: CTA NECK WITH CONTRAST (STROKE) CTA BRAIN WITH CONTRAST (STROKE) CLINICAL INFORMATION: Headache. Syncope. COMPARISON: Correlated to CT dated October 27, 2024 demonstrated a 7 cm intraparenchymal hematoma, left temporal. TECHNIQUE: CTA of the head and neck was performed in the axial plane from the mediastinum to the skull vertex using 70 mL Omnipaque 350 intravenous contrast. Additional reformatted multiplanar images including maximum intensity projection MIP images are generated on the CT workstation. This CT examination was performed using dose optimization techniques as appropriate, variously including the following: *Automated exposure control *Adjustment of mA and/or kV according to patient size (this includes techniques or standardized protocols for targeted exams where dose is matched to indication/reason for exam; i.e. extremities or head) *Use of iterative reconstruction technique Total DLP: 1652 mGy centimeter. FINDINGS: The degree of stenosis determined by criteria similar to NASCET. Brain: No acute intracranial hemorrhage. Bilateral multifocal patchy and confluent deep periventricular white matter hypodensities involving centrum semiovale and sanchez radiata. Calcified plaques in a prominent engorged cavernous supraclinoid segments of the ICAs and the V3 segment left vertebral artery. No acute fracture, bony calvarium. No air-fluid levels in the paranasal sinuses. Tympanic cavities and mastoid cells are aerated. Edentulous. Chest CTA: Thoracic aorta is patent without focal stenosis or intimal flap or abnormal diameter. Calcified plaques. Neck CTA: Right CCA: Normal patency. No focal stenosis. No intimal flap. Right ICA: Focal calcification. Normal patency. No focal stenosis. No intimal flap. Left CCA: Normal patency. No focal stenosis. No intimal flap. Left ICA: Focal calcification. Normal patency. No focal stenosis. No intimal flap. V1/V2 segments: Normal patency. No focal stenosis. No intimal flap. Left vertebral artery is dominant. The origin is directly from the subclavian arteries bilaterally. Brain CTA: Anterior cerebral circulation: ICAs: Calcified plaques in the cavernous supraclinoid segments. Prominent engorged arteries. No focal stenosis. No abrupt cut off. MCA's: Normal patency. No focal stenosis. No abrupt cut off. Bifurcation/trifurcation demonstrated normal vascular irregularity. ACAs: Normal patency. No focal stenosis. No abrupt cut off. Ophthalmic arteries are patent without vascular irregularity at the origin. Anterior communicating artery is patent. Right posterior communicating artery is patent and robust. Left anterior communicating artery is small. Posterior cerebral circulation: V3/V4 segments: Focal calcifications. No focal stenosis. No intimal flap. The posterior inferior cerebral arteries are patent. Basilar artery is patent without focal stenosis or intimal flap. Superior cerebellar arteries are patent. supervisor sawing and assembly: Right P1 segment: Hypoplastic/atretic. No focal stenosis. No abrupt cut off. Ancillary findings: Main cerebral venous sinuses are patent. The left jugular foramen left sigmoid and transverse sinuses is dominant. Nodularity is seen in the endobronchial trachea mainstem bronchus. Multiple saccular bronchiectasis with peribronchial and interlobular septal thickening and likely a small less than 2 cm cavitary lesion and right upper lung lobe.. CT/CT angio head neck IMPRESSION: No acute intracranial hemorrhage. Resolved intracranial hemorrhage. No main cerebral artery occlusion or embolus. No cerebral aneurysm. No dissection. No high degree stenosis. Questionable acute on chronic airspace disease. Recommend bronchoscopy for better evaluation of the endotracheal nodularity. This critical test result is communicated to: Emergency physician Dr. Rahul Zamora on December 30, 2024 at 12:05 PM Electronically signed by: Lázaro Ely MD 12/30/2024 12:25 PM EDT
--- NOTE | 2024-12-30 10:08 | ED_ITS ---
HPI - General Adult General Chief complaint: General Medical Stated complaint: fainted arm pain stroke in oct Time Seen by Provider: 12/30/24 10:08 Source: family ( and daughter) Mode of arrival: ambulatory Limitations: no limitations History of Present Illness ED Provider: Dr. Rahul Zamora HPI narrative: 84-year-old male past medical history HLD, BPH, bronchiectasis (mycobacteria infection), left temporal intraparenchymal/subarachnoid hemorrhage 10/27/2024 who was brought to emergency department by his family for evaluation of a near syncopal episode. The patient states that yesterday at noon and at bedtime 19:00 hours. He also developed pain in his right wrist yesterday which has become progressively worse. This morning when he woke up at around 07:00 hours, he was sitting on the toilet when he developed a headache and began spitting up phlegm. His states he became very pale and looks like he was going to pass out. She lowered him to the bathroom floor. She checked his blood pressure and it was 126/72. Patient continued to feel weak therefore he was brought to the emergency department for evaluation. In the emergency department he denied headache. He was complaining of pain and swelling of the right wrist and right hand. He denied fever, chills, chest pain, shortness of breath, dyspnea on exertion, dysuria, black stools or bloody stools. He states he was had a chronic cough in his being managed by our transport medic, Dr. Minor. The patient was taking Zithromax 3 times a day for this cough. The states that he was also been depressed and he was started on Lexapro. Since being discharged from [facility] for his intracranial bleed, he was had autonomic dysfunction and has been advised to wear compression stockings and a compression belt. He was not wearing these this morning. Related Data Home Medications ?Medication ?Instructions ?Recorded ?Confirmed atorvastatin 10 mg tablet 10 mg PO DAILY 11/06/20 12/30/24 nebulizers 06/30/22 azithromycin 500 mg tablet 500 mg PO MOWEFR 12/30/24 12/30/24 escitalopram oxalate 10 mg tablet 10 mg PO BEDTIME 12/30/24 12/30/24 Previous Rx's ?Medication ?Instructions ?Recorded albuterol sulfate 2.5 mg/3 mL 2.5 mg (3 mL) inhalation BID 12/16/24 (0.083 %) solution for nebulization shortness of breath or wheezing #180 mL amoxicillin 875 mg-potassium 1 tab PO Q12H 6 days #12 tabs 12/31/24 clavulanate 125 mg tablet prednisone 10 mg tablet See Taper PO DIRECTED #29 tabs 12/31/24 Allergies Allergy/AdvReac Type Severity Reaction Status Date / Time latex [LATEX] Allergy Intermediate RASH Verified 12/30/24 09:50 Band-Aid Allergy Severe rash Uncoded 12/30/24 09:50 neosporin Allergy Severe rash Uncoded 12/30/24 09:50 Review of Systems 2 Review of Systems: Yes all other systems are reviewed and are negative [facility] Past Medical History [facility] Narrative: Social history: He lives at home with his family. His and daughter here in the emergency department with him. Denies tobacco use. He stop smoking cigarettes 40 years prior. Denies alcohol use. Medical History COPD (chronic obstructive pulmonary disease) Mycobacterial disease Hernia HLD (hyperlipidemia) BPH (benign prostatic hyperplasia) Bronchiectasis Hemoptysis Pulmonary nodules Cough Abnormal chest x-ray Surgical History Hx of colonoscopy Social History Social History Household Members: Significant Other Housing: House Do you presently have visiting nurse or other home services: No Alcohol intake: former Patient Tobacco Use Status: Former Tobacco user Tobacco use type: Cigarette Years Smoked: 20 years service: Yes Physical Exam ED Vital Signs: Vital Signs - 24 hr 12/30/24 09:42 12/30/24 10:02 12/30/24 10:34 Temperature 96.8 F 98.7 F Pulse Rate 76 82 82 Respiratory Rate 18 26 H Blood Pressure 127/74 111/69 135/77 Pulse Oximetry 98 96 Oxygen Delivery Method Room Air Room Air 12/30/24 10:37 12/30/24 10:38 12/30/24 11:00 Temperature 100 F Pulse Rate 88 91 85 Respiratory Rate 26 H Blood Pressure 84/48 L 72/43 L 133/74 Pulse Oximetry 95 Oxygen Delivery Method Room Air 12/30/24 11:31 12/30/24 12:21 Temperature Pulse Rate 65 Respiratory Rate 26 H 26 H Blood Pressure 125/68 Pulse Oximetry 93 Oxygen Delivery Method Room Air BMI result Body Mass Index 19.1 Initial vital signs were unremarkable. Patient was orthostatic. Lying: BP 139/77, heart rate 96 Sitting: BP 84/48, heart rate 60 Standing: BP 72/43, heart rate 52 Exam: General: Awake, alert in no distress, weight 69.3 kg, low BMI 19.1. Defers to his family to answer most questions Head: Normocephalic, atraumatic EENT: PERRL, Lids normal, sclera normal, conjunctiva normal, nose normal , ears normal, throat without erythema or exudates Neck: Supple, no adenopathy Lung: breath sounds symmetric, no wheezing, rales or rhonchi Chest: symmetric movement, nontender Heart: regular rate and rhythm, normal S1, S2 no murmurs or rubs Abdomen: soft, non-tender, nondistended, normal bowel sounds Back: no vertebral tenderness, no CVAT Extremities: Right wrist revealed increased warmth with significant soft tissue swelling and significant tenderness with palpation and minimal movement Neuro: Awake, alert, oriented, normal speech, cranial nerves intact, moves all extremities symmetrically Psych: Pleasant, cooperative Medications Administered Discontinued Medications Generic Name Dose Route Start Last Admin Trade Name Freq PRN Reason Stop Dose Admin Albuterol Sulfate 2.5 mg 12/30/24 21:00 12/31/24 08:41 Albuterol Sulfate (0.083%) 2.5 Mg/3 Ml Vial.Neb INHALE 2.5 mg BID RONI Administration Atorvastatin Calcium 10 mg 12/31/24 09:00 12/31/24 08:10 Atorvastatin Calcium 10 Mg Tablet PO 10 mg DAILY RONI Administration Enoxaparin Sodium 40 mg 12/30/24 15:15 12/30/24 15:49 Enoxaparin Sodium 40 Mg/0.4 Ml Syringe SUBCUT 40 mg Q24H RONI Administration Escitalopram Oxalate 10 mg 12/30/24 21:00 12/30/24 20:57 Escitalopram Oxalate 10 Mg Tablet PO 10 mg BEDTIME RONI Administration Sodium Chloride 1,000 mls @ 999 mls/hr 12/30/24 10:29 12/30/24 12:16 Ns IV 12/30/24 11:29 Infused .Q1H1M STA Infusion Piperacillin Sod/Tazobactam 100 mls @ 200 mls/hr 12/30/24 12:55 12/30/24 14:51 Sod 4.5 gm/ Sodium Chloride IV 12/30/24 13:24 Infused ONCE ONE Infusion Doxycycline Hyclate 100 mg/ 250 mls @ 166.67 mls/hr 12/30/24 12:55 12/30/24 16:58 Sodium Chloride IV 12/30/24 14:24 Infused ONCE ONE Infusion Lactated Ringer's 1,000 mls @ 80 mls/hr 12/30/24 15:30 12/31/24 08:10 Lr IVCONT Infused .[id number] RONI Infusion Piperacillin Sod/Tazobactam 50 mls @ 100 mls/hr 12/30/24 19:00 12/31/24 12:57 Sod 3.375 gm/ Sodium Chloride IV Infused Q6H RONI Infusion Iohexol 100 ml 12/30/24 11:49 12/30/24 11:49 Iohexol 350 Mg/Ml 100 Ml Infus..Btl IV 12/30/24 11:50 70 ml ONCE ONE Administration Methylprednisolone Sodium Succinate 40 mg 12/30/24 12:55 12/30/24 13:50 Methylprednisolone Sod Succ 40 Mg/Ml Vial IVPUSH 12/30/24 12:56 40 mg ONCE ONE Administration Morphine Sulfate 2 mg 12/30/24 10:29 12/30/24 11:11 Morphine Sulfate 4 Mg/Ml Cartridge IVPUSH 12/30/24 10:30 2 mg ONCE STA Administration Protocol Omeprazole 40 mg 12/31/24 06:30 12/31/24 06:41 Omeprazole 40 Mg Capsule.Dr PO 40 mg DAILY@0630 RONI Administration Ondansetron HCl 4 mg 12/30/24 10:29 12/30/24 11:11 Ondansetron Hcl 4 Mg/2 Ml Vial IVPUSH 12/30/24 10:30 4 mg ONCE ONE Administration Prednisone 40 mg 12/31/24 09:00 12/31/24 08:10 Prednisone 20 Mg Tablet PO 40 mg DAILY RONI Administration Sodium Chloride 3 ml 12/30/24 16:00 12/31/24 08:05 0.9 % Sodium Chloride Flush 3 Ml Syringe IVFLUSH Not Given QSHIFT [facility] Medical Decision Making Medical Decision Making MDM Narrative: 84-year-old male past medical history HLD, BPH, bronchiectasis (mycobacteria infection), left temporal intraparenchymal/subarachnoid hemorrhage 10/27/2024 who was brought to emergency department by his family for evaluation of a near syncopal episode. The patient states that yesterday at noon and at bedtime 19:00 hours. He also developed pain in his right wrist yesterday which has become progressively worse. This morning when he woke up at around 07:00 hours, he was sitting on the toilet when he developed a headache and began spitting up phlegm. His states he became very pale and looks like he was going to pass out. She lowered him to the bathroom floor. She checked his blood pressure and it was 126/72. Patient continued to feel weak therefore he was brought to the emergency department for evaluation. Physical examination did reveal that he was orthostatic by pulse and heart rate and was symptomatic with standing. Patient was right wrist did reveal soft tissue swelling, increased warmth, tenderness palpation and pain with minimal movement otherwise exam was unremarkable Differential diagnosis: ?Includes but is not limited to stroke, intracranial hemorrhage, subarachnoid hemorrhage, myocardial infarction, myocardial ischemia, arrhythmia. Right wrist differential includes inflammatory arthritis, gout, pseudogout, septic arthritis Course: 13:55 My interpretation patient's laboratory evaluation is as follows: WBC was normal 9100. Normocytic anemia with an H&H of 13.9 and 39. Sodium low 132. AST elevated 38. CRP elevated 4.185. ESR elevated 60. BNP normal 82. Uric acid was normal. CT scan of the head and CT angiogram of the head and neck did not reveal any acute abnormalities. 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 Chest x-ray revealed increased interstitial patchy infiltrates which is new compared to the patient's previous chest x-ray. At this time, I believe the patient has near syncopal episode was secondary to his orthostatic hypotension caused by his autonomic dysfunction and possible volume depletion. The patient however has an abnormal chest x-ray which is most likely consistent with a atypical infection. He was treated with Zosyn 4.5 g IV and doxycycline 100 mg IV. I will discuss admission with the covering hospitalist. I will also discuss the patient's right wrist findings with covering orthopedic provider. 14:30 I did discuss the patient's presentation with the covering orthopedic physician assistant press operator offset Mario Mayorga. She did not think the patient's wrist joint did not need to be tapped at this time and recommended treatment with steriods. The patient was given Solu-Medrol 40 mg IV. I also discussed the patient's presentaiton over [place] [employer] with the covering Hospitalist, Royal Blanchard and the patient was accepted onto the hospitalist service. Admission/Observation Consideration of admission/observation: Escalation of care including admission/observation considered (Yes) Consult Healthcare Provider Management of the patient was discussed with: Hospitalist and Manager Of Customer Billing (Othopedics) Lab Data MDM Lab Attestation statement: I reviewed the patient's lab results. 12/30/24 10:53 12/31/24 07:15 Labs: Lab Results 12/30/24 12/30/24 12/30/24 Range/Units 10:53 13:50 14:01 WBC 9.1 (4.8-10.8) X10*3/uL RBC 4.34 L (4.60-5.80) X10*6/uL Hgb 13.9 L (14.0-18.0) g/dl Hct 39.9 L (42.0-52.0) % MCV 91.9 (80.0-98.0) fL MCH 32.0 (27.0-33.0) pg MCHC 34.8 (31.0-36.0) g/dl RDW 13.3 (11.0-16.0) % Plt Count 278 (160-400) X10*3/uL MPV 9.5 (9.4-12.4) fL Immature Gran % (Auto) 0.5 H (0.0-0.4) % Neut % (Auto) 82.6 H (45-73) % Lymph % (Auto) 7.9 L (20-40) % Banner % (Auto) 8.3 (2-11) % Eos % (Auto) 0.2 (0-4) % Baso % (Auto) 0.5 (0-2) % Lymph # (Auto) 0.7 L (1.2-4.9) X10*3/uL Banner # (Auto) 0.8 (0.1-1.2) X10*3/uL Eos # (Auto) 0.0 (0.0-0.4) X10*3/uL Baso # (Auto) 0.1 (0.0-0.2) X10*3/uL Abs Immat Gran (auto) 0.05 H (0.00-0.03) X10*3/uL Absolute Neuts (auto) 7.5 (2.0-8.3) x10*3/uL Absolute Nucleated RBC 0.000 (0.0-0.012) X10*3/uL Nucleated RBC % (auto) 0.0 (0.0-0.2) /100WBC ESR 60 H (0-15) MM/HR APTT 33.0 (26.0-36.8) SEC Sodium 132 L (135-145) mmol/L Potassium 4.9 (3.3-5.1) mmol/L Chloride 96 (96-108) mmol/L Carbon Dioxide 28 (22-29) mmol/L Anion Gap 13 (12-20) BUN 16 (9-16) mg/dL Creatinine 0.71 (0.5-1.4) mg/dL Estim Creat Clear Calc 75.9 Estimated GFR > 60 Random Glucose 91 (60-115) mg/dL Lactic Acid 1.0 (0.5-2.0) mmol/L Uric Acid 4.1 (3.4-7.0) mg/dL Calcium 9.8 (8.4-10.2) mg/dL Magnesium 1.7 (1.6-2.6) mg/dL Total Bilirubin 0.8 (0.0-1.0) mg/dL AST 38 H (5-37) U/L ALT 22 (0-40) U/L Alkaline Phosphatase 76 (39-117) U/L Troponin I High Sens 3.4 (<3.5-35.0) ng/L C-Reactive Protein 4.85 H (< or = 0.50) mg/dL B-Natriuretic Peptide 82 (<100) pg/mL Total Protein 8.2 H (6.5-8.0) g/dL Albumin 3.8 (3.5-5.0) g/dL Lipase 43 (8-78) U/L Urine Color Yellow Urine Appearance Clear Urine pH 7.5 (5.0-9.0) Ur Specific Downey >= 1.030 H (1.005-1.025) Urine Protein Negative (Neg-Trace) mg/dL Urine Glucose (UA) Negative (Negative) mg/dL Urine Ketones Negative (Negative) mg/dL Urine Blood Negative (Negative) Urine Nitrite Negative (Negative) Ur Leukocyte Esterase Negative (Negative) Influenza Type A (PCR) NEGATIVE (Negative) Influenza Type B (PCR) NEGATIVE (Negative) RSV RNA Qual (PCR) NEGATIVE (Negative) SARS-CoV-2 RNA (RT-PCR) NEGATIVE (Negative) Independent Interpretation I performed an independent interpretation of an: EKG and Plain X-Ray Interpretation: My independent interpretation patient's 12 EKG done on 12/30/2024 at 10:42 hours is as follows: Normal sinus rhythm with a rate of 65, normal MN interval, QRS duration QTC interval, no ST segment elevations, no ST segment depression, peaked T-waves V2 through V6, occasional PAC her. Compared to an EKG dated 10/27/2024 at 11:38 hours there were no significant changes. The peaked T-waves are present on the previous EKG, PACs are new. My independent interpretation of the patient's right wrist x-rays as follows: no acute fracture seen My independent interpretation the patient's hand x-ray is as follows: Arthritic changes, no acute fracture seen Radiology Impression Discussion of test interpretation with radiology: I have reviewed the radiologist's reading. Radiologist Impression: CT angio head neck IMPRESSION: No acute intracranial hemorrhage. Resolved intracranial hemorrhage. No main cerebral artery occlusion or embolus. No cerebral aneurysm. No dissection. No high degree stenosis. Questionable acute on chronic airspace disease. Recommend bronchoscopy for better evaluation of the endotracheal nodularity. This critical test result is communicated to: Emergency physician Dr. Rahul Zamora on December 30, 2024 at 12:05 PM XR chest 1V IMPRESSION: 1. Compared with prior exams, new patchy opacities in the right medial lower lung, and retrocardiac region suspect for new infectious/inflammatory disease. 2. Chronic bronchiectasis, COPD, and reticular opacities in the right upper lobe and left midlung, similar to priors. Electronically signed by: Zohaib Brown MD 12/30/2024 12:10 PM EDT RP XR WRIST, RIGHT CLINICAL INFORMATION: Right hand and wrist pain with swelling R/O fractu COMPARISON: None available. TECHNIQUE: PA, lateral, and oblique views of the right wrist. FINDINGS: Osteopenia versus osteoporosis. 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 No acute cortical disruption or malalignment. No subcutaneous emphysema.. XR/XR wrist RT 2V IMPRESSION: Degenerative changes. CPPD should be considered. No acute fracture or dislocation. Electronically signed by: Lázaro Ely MD 12/30/2024 01:00 PM XR hand RT min 3V IMPRESSION: No acute fracture or dislocation. Consider CPPD. Electronically signed by: Lázaro Ely MD 12/30/2024 01:01 PM Independent Historian Clinical information obtained from an independent historian. History obtained from or confirmed by: Spouse and Other (Daughter) Chronic Conditions Patient?s care impacted by: Other ( COPD) Critical Care Time Critical Care Time Critical Care Time: Yes Total Critical Care Time: 35 Attestation: Critical Care: The patient was critically ill with a high probability of imminent or life threatening deterioration. I spent greater than 30 minutes of discontinuous time evaluating the patient,delivering critical care at the bedside, discussing and evaluating pertinent data with consultants. Critical care time does not include time spent performing separately billable procedures or teaching. Total time spent performing critical care was 35 minutes. Discharge Plan Discharge Clinical Impression: Near syncope, Orthostatic hypotension, Atypical pneumonia, Inflammatory arthritis, Acute pain of right wrist Patient Disposition: Admitted As Inpatient Interventions: Admission Worksheet (ED) Last Done: 12/30/24 15:23 Discharge Date/Time: 12/30/24 17:06
--- NOTE | 2024-12-30 10:30 | ECG_ITS ---
Test Reason : WEAKNESS Blood Pressure : */* mmHG Vent. Rate : 65 BPM Atrial Rate : 65 BPM P-R Int : 192 ms QRS Dur : 94 ms QT Int : 412 ms P-R-T Axes : * 78 69 degrees QTcB Int : 428 ms Sinus rhythm with Premature supraventricular complexes Otherwise normal ECG When compared with ECG of 27-Oct-2024 11:38, Premature supraventricular complexes are now Present [place] interval has decreased Referred By: Rahul Zamora Electronically Signed By: ARTIE BLACK MD
[2024-12-30 11:00] LABS: MANUAL DIFF FLAG NO
[2024-12-30 11:02] LABS: Basophils Absolute Auto 0.1 X10*3/uL (0.0-0.2); Basophils Percent Auto 0.5 % (0-2); Eosinophils Percent Auto 0.2 % (0-4); Hematocrit 39.9 % (42.0-52.0); Hemoglobin 13.9 g/dl (14.0-18.0); Imm Gran Abs Auto 0.05 X10*3/uL (0.00-0.03); Imm Gran Pct Auto 0.5 % (0.0-0.4); Lymphocytes Absolute Auto 0.7 X10*3/uL (1.2-4.9); Lymphocytes Percent Auto 7.9 % (20-40); Mean Corpuscular HGB Conc 34.8 g/dl (31.0-36.0); Mean Corpuscular Volume 91.9 fL (80.0-98.0); Mean Platelet Volume 9.5 fL (9.4-12.4); Monocytes Absolute Auto 0.8 X10*3/uL (0.1-1.2); Monocytes Percent Auto 8.3 % (2-11); Neutrophils Absolute Auto 7.5 x10*3/uL (2.0-8.3); Neutrophils Percent Auto 82.6 % (45-73); Platelet Count 278 X10*3/uL (160-400); Red Blood Count 4.34 X10*6/uL (4.60-5.80); Red Cell Distribution Width 13.3 % (11.0-16.0); White Blood Count 9.1 X10*3/uL (4.8-10.8)
[2024-12-30] MEDS: 0.9 % Sodium Chloride 1,000 ML 999 ML IV (11:02)
[2024-12-30] MEDS: ondansetron HCL 4 MG/2 ML VIAL IVPUSH (11:11)
[2024-12-30] MEDS: Morphine Sulfate 4 MG/ML CARTRIDGE 2 MG IVPUSH (11:11)
[2024-12-30 11:16] LABS: Uric Acid 4.1 mg/dL (3.4-7.0)
[2024-12-30 11:22] LABS: B Type Natriuretic Peptide 82 pg/mL (<100)
[2024-12-30 11:23] LABS: Troponin-I High Sensitivity 3.4 ng/L (<3.5-35.0)
[2024-12-30 11:24] LABS: Alanine Aminotransferase 22 U/L (0-40); Albumin Level 3.8 g/dL (3.5-5.0); Anion Gap 13 (12-20); Aspartate Amino Transferase 38 U/L (5-37); Bilirubin Total 0.8 mg/dL (0.0-1.0); Blood Urea Nitrogen 16 mg/dL (9-16); C Reactive Protein 4.85 mg/dL (< or = 0.50); Calcium 9.8 mg/dL (8.4-10.2); Carbon Dioxide 28 mmol/L (22-29); Chloride 96 mmol/L (96-108); Creatinine Clr Calc Pharmacy 75.9; Estimated Glomerular Filt Rate > 60; Glucose Random 91 mg/dL (60-115); Lipase 43 U/L (8-78); Magnesium 1.7 mg/dL (1.6-2.6); Potassium 4.9 mmol/L (3.3-5.1); Sodium 132 mmol/L (135-145); Total Protein 8.2 g/dL (6.5-8.0)
--- OUTSIDE RECORDS SUMMARY | 2024-12-30 11:33 | XMS_ITS ---
Author Organization Robbie Kothari III, MD Address [address] [place] [address] [place] [address] Care Team Providers Care Supervisor Inspection Department Name Role Phone Robbie Kothari Primary Care Provider REASON FOR VISIT Verbal Orders PT Social History Sex Assigned At : Social History Observation Description Sex Assigned At Male Encounters Encounter Location Date Provider Diagnosis Robbie Kothari III, MD [address] [place] [address] [place] [address] 12/14/2024 Robbie Kothari Plan Of Treatment Next Appt Details Provider Name:Robbie Kothari, 01/04/2025 03:30:00 PM, [address] [place] [address] [place], [address], Progress Notes * Freeman ROCHADOB: 0 (84 yo M)Acc No.[id number]:12/14/2024 Patient:?Freeman ROCHA :1940???Age:84 Y???Sex:Male Address:[place] [address] * true * Date:? Generated for Printi ng/Faxing/eTransmitting on:?12/30/2024 11:33 AM EDT
--- OUTSIDE RECORDS SUMMARY | 2024-12-30 11:33 | XMS_ITS | Clinical Summary ---
Author Organization [facility] Address [address] [address] Phone Care Team Providers Care Dynamics Ax Developer Name Role Phone Unavailable Primary Care Provider [...] Office Visit [facility] [address] [place] [address] Anurag John MD [address] [address] Health Maintenance Due Date Last Done Comments Pneumococcal Vaccine: 50+ Ye ars (1 of 2 - PCV) 02/20/1959 Influenza Vaccine (Season Ended) 2025 Hepatitis B Vaccine Aged Out No longe r eligible based on patient's age to complete [place] [id number] [facility] Medicare
--- OUTSIDE RECORDS SUMMARY | 2024-12-30 11:33 | XMS_ITS ---
Author Organization Robbie Kothari III, MD Address [address] [place] [address] [place] [address] Care Team Providers Care Supervisor Airplane Flight Attendant Name Role Phone Robbie Kothari Primary Care Provider REASON FOR VISIT Needs call back from Social History Sex Assigned At : Social History Observation Description Sex Assigned At Male Encounters Encounter Location Date Provider Diagnosis Robbie Kothari III, MD [address] [place] [address] [place] [address] 12/20/2024 Robbie Kothari Plan Of Treatment Next Appt Details Provider Name:Robbie Kothari, 01/04/2025 03:30:00 PM, [address] [place] [address] [place], [address], Progress Notes * Freeman ROCHADOB: 0 (84 yo M)Acc No.[id number]:12/20/2024 Patient:?Freeman ROCHA :1940???Age:84 Y???Sex:Male Address:[place] [address] * true * Date:? Generated for Printi ng/Faxing/eTransmitting on:?12/30/2024 11:33 AM EDT
--- OUTSIDE RECORDS SUMMARY | 2024-12-30 11:34 | XMS_ITS | Encounter Summary ---
Author Organization [facility] Address [address] [place] [address] Care Team Providers Care Risk Specialist Name Role Phone Gloria Preston MD Primary Care Provider [phone] Encounter Details Date Type Department Care Team (Late st Contact Info) Description 11/14/2024 Lab Requisition [facility] Main Lab [address] [facility] [place] [address] Gloria Preston MD [address] [place] [id number] Encounter for other general examination Social History [...] AM EST) WBC 4.3(L) 4.8 - 10.8 K/[facility] LAB HEMETOLOGY METHOD 11/14/2024 10:05 AM [place] [...] lt [facility] [address] [place] [address], * (ABNORMAL) Basic metabolic panel (11/14/2024 6:36 [...] LAB CHEMISTRY METHOD 11/14/2024 10:43 AM EST [facility] Blood Venous blood specimen / Unknown Venipuncture / Unknown 11/14/2024 6:36 AM EST 11/14/2024 8:21 AM EST us Gloria Preston MD LAB BLOOD ORDERABLES Final Resu lt [facility] [address] [place] [address], documented in this encounter Visit Diagnoses Diagnosis Encounter for other general examination documented in this encounter Care Teams Risk Specialist Relationship Specialty Start Date End Date Gloria Preston MD [address] [place] [phone] PCP - General Hospitalist Medicine 11/05/24 documented as of this encounter
--- OUTSIDE RECORDS SUMMARY | 2024-12-30 11:34 | XMS_ITS | Encounter Summary ---
Author Organization [facility] Address [address] [place] [address] Care Team Providers Care Supervisor Asbestos Textile Name Role Phone Gloria Preston MD Primary Care Provider [phone] Encounter Details Date Type Department Care Team (Late st Contact Info) Description 11/16/2024 Lab Requisition [facility] - Main Lab 299 [facility] [employer] [place] [address] Gloria Preston MD [address] [place] [address] Encounter for other general examination Social History [...] AM EST) WBC 3.8(L) 4.8 - 10.8 K/[facility] LAB HEMETOLOGY METHOD 11/16/2024 11:05 AM [facility] LAB RBC 3.90(L) 4.50 - 5.50 M/mcL LAB HEMETOLOGY METHOD 11/16/2024 11:05 AM [facility] LAB Hemoglobin 12.5(L) 13.5 - 17.5 g/dL LAB HEMETOLOGY METHOD 11/16/2024 11:05 AM [facility] LAB Hematocrit 36.5(L) 42.0 - 54.0 % LAB HEMETOLOGY METHOD 11/16/2024 11:05 AM [facility] LAB MCV 94.8 79.0 - 98.0 FL LAB HEMETOLOGY METHOD 11/16/2024 11:05 AM [facility] LAB MCH 32.5(H) 27.0 - 32.0 pcg LAB HEMETOLOGY METHOD 11/16/2024 11:05 AM [facility] LAB MCHC 34.2 32.0 - 37.0 g/dL LAB HEMETOLOGY METHOD 11/16/2024 11:05 AM [facility] LAB RDW 13.0 11.0 - 15.0 % LAB HEMETOLOGY METHOD 11/16/2024 11:05 AM [facility] LAB Platelets 307 130 - 400 K/mcL LAB HEMETOLOGY METHOD 11/16/2024 11:05 AM [facility] LAB MPV 9.8 7.0 - 11.0 FL LAB HEMETOLOGY METHOD 11/16/2024 11:05 AM [facility] LAB NRBC 0.0 <1.0 % LAB HEMETOLOGY METHOD 11/16/2024 11:05 AM [facility] LAB NRBC Absolute 0.00 <0.10 K/mcL LAB HEMETOLOGY METHOD 11/16/2024 11:05 AM [facility] LAB Neutrophils Relative 54.7 % LAB HEMETOLOGY METHOD 11/16/2024 11:05 AM [facility] LAB Lymphocytes Relative 23.1 % LAB HEMETOLOGY METHOD 11/16/2024 11:05 AM [facility] LAB Monocytes Relative 19.6 % LAB HEMETOLOGY METHOD 11/16/2024 11:05 AM [facility] LAB Eosinophils Relative 0.5 % LAB HEMETOLOGY METHOD 11/16/2024 11:05 AM [facility] LAB Basophils Relative 1.3 % LAB HEMETOLOGY METHOD 11/16/2024 11:05 AM [facility] LAB Immature Granulocytes Relative 0.8 % LAB HEMETOLOGY METHOD 11/16/2024 11:05 AM [facility] LAB Neutrophils Absolute 2.06 1.50 - 7.00 K/mcL LAB HEMETOLOGY METHOD 11/16/2024 11:05 AM [facility] LAB Lymphocytes Absolute 0.87(L) 1.00 - 5.00 K/mcL LAB HEMETOLOGY METHOD 11/16/2024 11:05 AM [facility] LAB Monocytes Absolute 0.74 0.20 - 1.00 K/mcL LAB HEMETOLOGY METHOD 11/16/2024 11:05 AM [facility] LAB Eosinophils Absolute 0.02 0.00 - 0.50 K/mcL LAB HEMETOLOGY METHOD 11/16/2024 11:05 AM [facility] LAB Basophils Absolute 0.05 0.00 - 0.20 K/mcL LAB HEMETOLOGY METHOD 11/16/2024 11:05 AM [facility] LAB Immature Granulocytes Absolute 0.03 0.00 - 0.03 K/mcL LAB HEMETOLOGY METHOD 11/16/2024 11:05 AM [facility] LAB Blood Venous blood specimen / Unknown Venipuncture / Unknown 11/16/2024 5:44 AM EST 11/16/2024 10:20 AM EST us Gloria Preston MD LAB BLOOD ORDERABLES Final Resu lt [facility] LAB [address] [place] [address], [place] [phone] * (ABNORMAL) Basic metabolic panel (11/16/2024 5:44 AM EST) Sodium 135 133 - 145 mmol/L LAB CHEMISTRY METHOD 11/16/2024 2:30 PM [facility] LAB Potassium 4.1 3.5 - 5.5 mmol/L LAB CHEMISTRY METHOD 11/16/2024 2:30 PM [facility] LAB Chloride 99 96 - 110 mmol/L LAB CHEMISTRY METHOD 11/16/2024 2:30 PM [facility] LAB CO2 25 21 - 32 mmol/L LAB CHEMISTRY METHOD 11/16/2024 2:30 PM [facility] LAB Anion Gap 11 3 - 11 LAB CHEMISTRY METHOD 11/16/2024 2:30 PM [facility] LAB Glucose 79 70 - 100 mg/dL LAB CHEMISTRY METHOD 11/16/2024 2:30 PM [facility] LAB BUN 18 5 - 25 mg/dL LAB CHEMISTRY METHOD 11/16/2024 2:30 PM [facility] LAB Creatinine 0.64(L) 0.70 - 1.30 mg/dL LAB CHEMISTRY METHOD 11/16/2024 2:30 PM [facility] LAB eGFR 93 >=60 mL/min/1. 73m2 LAB CHEMISTRY METHOD 11/16/2024 2:30 PM [facility] LAB Comment:Calculation based on the??Chronic Kidney Disease Epidemiology Collaboration (CKD-EPI) equation refit??without adjustment for race. BUN/Creatinine Ratio 28.1 LAB CHEMISTRY METHOD 11/16/2024 2:30 PM [facility] LAB Calcium 8.9 8.5 - 10.5 mg/dL LAB CHEMISTRY METHOD 11/16/2024 2:30 PM EST [facility] LAB Blood Venous blood specimen / Unknown Venipuncture / Unknown 11/16/2024 5:44 AM EST 11/16/2024 10:20 AM EST us Gloria Preston MD LAB BLOOD ORDERABLES Final Resu lt [facility] LAB [address] [place] [address], documented in this encounter Visit Diagnoses Diagnosis Encounter for other general examination documented in this encounter Care Teams Supervisor Asbestos Textile Relationship Specialty Start Date End Date Gloria Preston MD [address] [place] [address] PCP - General Hospitalist Medicine 11/05/24 documented as of this encounter
--- OUTSIDE RECORDS SUMMARY | 2024-12-30 11:34 | XMS_ITS ---
Author Organization [facility] Address [address] [place] [address] Care Team Providers Care Supervisor [place] Name Role Phone Robbie Kothari MD Primary Care Provider UnavailAna Damon Unavailable [phone] Allergies Allergen (clinical drug ingredient) Drug/Non Drug [...] 025 Encounters Encounter Location Date Provider Diagnosis [facility] [address] [place] [address] 09/27/2024 Ana Hernandez Tinea unguium B35.1 ; [...] Reason: Provider Name:Ana garduno, 03/28/2025 11:15:00 AM, [address] [place] [address], [phone], Procedure Notes * Category Sub-Category Detail Notes [...] use of a nail nipper and/or dremel-type sand mill grinder, to a more viable healthy nail [...] to maintain effectiveness in symptomatic relief - 75183 Progress Notes * Freeman ROCHADOB: 0 (84 yo M)Acc No.[id number]:09/27/2024 Progress Note Patient:?Freeman ROHCA Provider:?Ana Hernandez DPM :1940???Age:84 Y???Sex:Male Lokesh e:09/27/2024 Address:[place] Pcp:Robbie Kothari MD Subjective: * Chief Complaints: [...] use of a nail nipper and/or dremel-type sand mill grinder, to a more viable healthy nail [...] to maintain effectiveness in symptomatic relief - 17738.? * Procedure Codes:?01013 DEBRI DE NAIL, 6 OR MORE, Modifiers: XS * Follow Up:?3 Months * Images: * Sign off status: Completed true * Provider:Naresh Hernandez, KATERINA Date:? Generated for Chip andres/Awais/Tiffanie on:?12/30/2024 11:34 AM EDT History and Physical Notes * [...]
--- OUTSIDE RECORDS SUMMARY | 2024-12-30 11:34 | XMS_ITS | Clinical Summary ---
Author Organization [address] [facility] Address [address] [place] [address] Phone Care Team Providers Care Operation Supervisor Name Role Phone Gloria Preston MD Primary Care Provider Encounters Date Type Department Care Team Description 11/18/2024 Lab Requisition [facility] Lab [address] [place] [address] Gloria Preston MD Encounter for other general examination 11/16/2024 Lab Requisition [facility] Lab [address] [place] [address] Gloria Preston MD Encounter for other general examination 11/14/2024 Lab Requisition [facility] Lab [address] [place] [address] Gloria Preston MD Encounter for other general examination 11/10/2024 Lab Requisition [facility] Lab [address] [place] [address] Gloria Preston MD Encounter for other general examination 11/07/2024 Lab Requisition [facility] Lab [address] [place] [address] Gloria Preston MD Encounter for other general examination 11/05/2024 Lab Requisition [facility] Lab [address] [place] [address] Gloria Preston MD Encounter for other general [...] LAB HEMETOLOGY METHOD 11/18/2024 4:02 PM EST [facility] LAB Monocytes Absolute 0.48 0.20 - 1.00 K/[facility] LAB HEMETOLOGY METHOD 11/18/2024 4:02 PM [facility] LAB Eosinophils Absolute 0.00 0.00 - 0.50 K/[facility] LAB HEMETOLOGY METHOD 11/18/2024 4:02 PM EST [facility] LAB Basophils Absolute 0.02 0.00 - 0.20 K/[facility] LAB HEMETOLOGY METHOD 11/18/2024 4:02 PM [facility] LAB Immature Granulocytes Absolute 0.01 0.00 - 0.03 K/[facility] LAB HEMETOLOGY METHOD 11/18/2024 4:02 PM [facility] LAB Blood Venous blood specimen / Unknown Venipuncture / Unknown 11/18/2024 2:59 PM EST 11/18/2024 3:36 PM EST Gloria Preston MD LAB BLOOD ORDERABLES Final Resu lt Performing Organization Address City/[facility]/ZIP Co de Phone Number [facility] LAB [address] [place] [address], [place] [phone] * Prolactin (11/18/2024 2:59 PM EST) Prolactin 12.10 2.50 - 17.40 ng/mL LAB CHEMISTRY METHOD 11/18/2024 7:21 PM EST [facility] LAB Blood Venous blood specimen / Unknown Venipuncture / Unknown 11/18/2024 2:59 PM EST 11/18/2024 3:36 PM EST us Gloria Preston MD LAB BLOOD ORDERABLES Final Resu lt [facility] [address] [place] [address], [place] [phone] * (ABNORMAL) Magnesium (11/18/2024 2:59 PM EST) Only the most recent of3 resultswithin the time period is included. [facility] Magnesium 1.6(L) 1.9 - 2.6 mg/dL LAB CHEMISTRY METHOD 11/18/2024 7:07 PM [facility] LAB Blood Venous blood specimen / Unknown Venipuncture / Unknown 11/18/2024 2:59 PM EST 11/18/2024 3:36 PM EST us Gloria Preston MD LAB BLOOD ORDERABLES Final Resu lt [facility] [address] [place] [address], [place] [phone] * (ABNORMAL) Comprehensive metabolic panel (11/18/2024 2:59 PM EST) Only the most recent of3 resultswithin the time period is included. [facility] Sodium 134 133 - 145 mmol/L [...] lt [facility] [address] [place] [address], [place] [phone] * (ABNORMAL) Basic metabolic panel (11/16/2024 5:44 [...] ORDERABLES Final Resu lt Performing Organization Address [facility] Co de Phone Number [facility] LAB [address] [place] [address], [place] [phone] * Thyroid stimulating hormone (11/10/2024 6:06 AM EST) [facility] TSH 1.57 0.40 - 4.00 mcIU/mL LAB CHEMISTRY METHOD 11/10/2024 9:51 PM EST [facility] LAB Blood Venous blood specimen / Unknown Venipuncture / Unknown 11/10/2024 6:06 AM EST 11/10/2024 8:03 AM EST us Gloria Preston MD LAB BLOOD ORDERABLES Final Resu lt Performing Organization Address [facility] de Phone Number [facility] LAB [address] [place] [address], [place] [phone] * Vitamin B12 (11/10/2024 6:06 AM EST) [facility] Vitamin B-12 413 250 - 900 pcg/mL LAB CHEMISTRY METHOD 11/10/2024 9:28 PM EST [facility] LAB Blood Venous blood specimen / Unknown Venipuncture / Unknown 11/10/2024 6:06 AM EST 11/10/2024 8:03 AM EST us Gloria Preston MD LAB BLOOD ORDERABLES Final Resu lt Performing Organization Address [facility]/ZIP Co de Phone Number [facility] LAB [address] [place] [address], [place] [phone] from Last 3 Months Insurance [employer]ARE Care Teams Operation Supervisor Relationship Specialty Start Date End Date Gloria Preston MD [address] [place] [phone] PCP - General Hospitalist Medicine 11/05/24
--- OUTSIDE RECORDS SUMMARY | 2024-12-30 11:34 | XMS_ITS ---
Author Organization [facility] Address [address] [place] [address] Care Team Providers Care Hand Driller Name Role Phone Robbie Kothari MD Primary Care Provider Ana Rosales Unavailable [phone] Allergies Allergen (clinical drug ingredient) Drug/Non Drug [...] 025 Encounters Encounter Location Date Provider Diagnosis [facility] [address] [place] [address] 12/27/2024 Ana Hernandez Tinea unguium B35.1 ; [...] Reason: Provider Name:Ana garduno, 03/28/2025 11:15:00 AM, [address] [place] [address], [phone], Procedure Notes * Category Sub-Category Detail Notes [...] use of a nail nipper and/or dremel-type carbon grinder, to a more viable healthy nail [...] to maintain effectiveness in symptomatic relief - 30003 Progress Notes * Freeman ROCHADOB: 0 (84 yo M)Acc No.[id number]:12/27/2024 Progress Note Patient:?Freeman ROCHA Provider:?Ana Hernandez DPM :1940???Age:84 Y???Sex:Male Lokesh e:12/27/2024 Address:[place] Pcp:Robbie Kothari MD Subjective: * Chief Complaints: [...] History:?hernia col onoscopy * Hospitalization/Major Diagno stic Procedure:?[facility]- Stroke 10/2024 * Family History:?Mother: dece ased.?Father: .? * Social History:?Tobacco Use:?Tobacco use other than smoking?Are you an other tobacco user??No ?Tobacco Control (Standard)?Tobacco use:?Nonsmoker ???Miscellaneous:?Caffeine: yes, 3-5 cups per day. ?Children: no. ?Exercise: yes, walking. ?Marital status: . ?Occupation: Retired- [employer]. * Medications:?TakingAtorvasta tin Calcium 10 MG Tablet [...] use of a nail nipper and/or dremel-type carbon grinder, to a more viable healthy nail [...] to maintain effectiveness in symptomatic relief - 06537.? * Procedure Codes:?88432 DEBRI DE NAIL, 6 OR MORE, Modifiers: XS * Follow Up:?3 Months * Images: * Sign off status: Completed true * Provider:?Ana Hernandez DPM Date:? Generated for Chip andres/Awais/Tiffanie on:?12/30/2024 11:34 [...]
--- OUTSIDE RECORDS SUMMARY | 2024-12-30 11:34 | XMS_ITS ---
Author Organization Robbie Kothari III, MD Address [address] [place] [address] Care Team Providers Care School Guidance Counselor Name Role Phone Robbie Kothari Primary Care Provider [phone] Allergies Allergen (clinical drug ingredient) Drug/Non Drug [...] Date Provider Diagnosis Robbie Kothari III, MD [address] [place] [address] [address] PASTOR [place], [place] [address] 12/19/2024 Robbie Kothari Hyperlipidemia E78.5 ; Nontraumatic [...] - R56.9) Just before discharge from an [facility] rehabilitation he was begun on Keppra for periods of unresponsiveness. A repeat CT scan November 18, 2024 showed improvement in the hemorrhage and edema. The Her will be discontinued until the electroencephalogram is done. We have requested a repeat visit from [facility] neurology. 12/19/2024 Former smoker (ICD-10 - Z87.891) [...] Exam Provider Name:Robbie Kothari, 01/04/2025 03:30:00 PM, [address] [place] [address] [address], [place], [address], Progress Notes * Freeman ROCHADOB: 0 (84 yo M)Acc No.[id number]:12/19/2024 Progress Notes Patient:?Freeman ROCHA Provider:?Robbie Kothari MD :1940???Age:84 Y???Sex:Male Lokesh e:12/19/2024 Address[place], [id number] Subjective: * Chief Complaints: * ???Recent cerebral hemorrhag eMycobacterium avium pulmonary infectionRecent pneumoniaSleep apneaHyperlipidemiaUnder weightBenign prostatic hypertrophy * HPI: ???COVID-19 Screening:? He is being watched closely during his recovery from a cerebral hemorrhage.? His mental status is brighter and he converses without difficulty.? He reports no trouble breathing.? 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 He was born in [place], [place]. * Medications:?TakingRobitussi n DM Mucinex 600 [...] We have requested a repeat visit from [facility] neurology.???6.?Former smoker - Z87.891???Notes :He has a [...] Kothari MD Date:?03/2025 Generated for Chip andres/Awais/Juaquinitting on:?12/30/2024 11:33 AM EDT History and Physical Notes * [...]
--- OUTSIDE RECORDS SUMMARY | 2024-12-30 11:34 | XMS_ITS | Encounter Summary ---
Author Organization [facility] Address [address] [place] [address] Care Team Providers Care Rn Progressive Care Unit Name Role Phone Gloria Preston MD Primary Care Provider [phone] Encounter Details Date Type Department Care Team (Late st Contact Info) Description 11/10/2024 Lab Requisition [facility] - Main Lab [address] [facility] [place] [address] Gloria Preston MD [address] [place] [address] Encounter for other general examination Social History [...] * Vitamin B12 (11/10/2024 6:06 AM EST) [facility] Vitamin B-12 413 250 - 900 pcg/mL LAB CHEMISTRY METHOD 11/10/2024 9:28 PM EST [facility] LAB Blood Venous blood specimen / Unknown Venipuncture / Unknown 11/10/2024 6:06 AM EST 11/10/2024 8:03 AM EST Gloria Preston MD LAB BLOOD ORDERABLES Final Resu lt Performing Organization Address [facility]/ZIP Co de Phone Number [facility] LAB [address] [place] [address], [place] [phone] * Thyroid stimulating hormone (11/10/2024 6:06 AM EST) [facility] TSH 1.57 0.40 - 4.00 mcIU/mL LAB CHEMISTRY METHOD 11/10/2024 9:51 PM EST [facility] LAB Blood Venous blood specimen / Unknown Venipuncture / Unknown 11/10/2024 6:06 AM EST 11/10/2024 8:03 AM EST Gloria Preston MD LAB BLOOD ORDERABLES Final Resu lt [facility] LAB [address] [place] [address], [place] [phone] * (ABNORMAL) CBC auto differential (11/10/2024 6:06 AM EST) [facility] WBC 6.0 4.8 - 10.8 K/[facility] LAB HEMETOLOGY METHOD 11/10/2024 8:44 AM EST [facility] LAB RBC 3.80(L) 4.50 - 5.50 M/[facility] LAB HEMETOLOGY METHOD 11/10/2024 8:44 AM [facility] LAB Hemoglobin 12.4(L) 13.5 - 17.5 g/dL LAB HEMETOLOGY METHOD 11/10/2024 8:44 AM [facility] LAB Hematocrit 36.7(L) 42.0 - 54.0 % LAB HEMETOLOGY METHOD 11/10/2024 8:44 AM [facility] LAB MCV 95.6 79.0 - 98.0 FL LAB HEMETOLOGY METHOD 11/10/2024 8:44 AM [facility] LAB MCH 32.3(H) 27.0 - 32.0 pcg LAB HEMETOLOGY METHOD 11/10/2024 8:44 AM [facility] LAB MCHC 33.8 32.0 - 37.0 g/dL LAB HEMETOLOGY METHOD 11/10/2024 8:44 AM [facility] LAB RDW 12.8 11.0 - 15.0 % LAB HEMETOLOGY METHOD 11/10/2024 8:44 AM [facility] LAB Platelets 337 130 - 400 K/mcL LAB HEMETOLOGY METHOD 11/10/2024 8:44 AM [facility] LAB MPV 9.8 7.0 - 11.0 FL LAB HEMETOLOGY METHOD 11/10/2024 8:44 AM [facility] LAB NRBC 0.0 <1.0 % LAB HEMETOLOGY METHOD 11/10/2024 8:44 AM [facility] LAB NRBC Absolute 0.00 <0.10 K/mcL LAB HEMETOLOGY METHOD 11/10/2024 8:44 AM [facility] LAB Neutrophils Relative 72.1 % LAB HEMETOLOGY METHOD 11/10/2024 8:44 AM [facility] LAB Lymphocytes Relative 14.8 % LAB HEMETOLOGY METHOD 11/10/2024 8:44 AM [facility] LAB Monocytes Relative 9.9 % LAB HEMETOLOGY METHOD 11/10/2024 8:44 AM EST [facility] LAB Eosinophils Relative 1.5 % LAB HEMETOLOGY METHOD 11/10/2024 8:44 AM [facility] LAB Basophils Relative 1.2 % LAB HEMETOLOGY METHOD 11/10/2024 8:44 AM [facility] LAB Immature Granulocytes Relative 0.5 % LAB HEMETOLOGY METHOD 11/10/2024 8:44 AM EST [facility] LAB Neutrophils Absolute 4.29 1.50 - 7.00 K/mcL LAB HEMETOLOGY METHOD 11/10/2024 8:44 AM [facility] LAB Lymphocytes Absolute 0.88(L) 1.00 - 5.00 K/mcL LAB HEMETOLOGY METHOD 11/10/2024 8:44 AM [facility] LAB Monocytes Absolute 0.59 0.20 - 1.00 K/mcL LAB HEMETOLOGY METHOD 11/10/2024 8:44 AM [facility] LAB Eosinophils Absolute 0.09 0.00 - 0.50 K/mcL LAB HEMETOLOGY METHOD 11/10/2024 8:44 AM [facility] LAB Basophils Absolute 0.07 0.00 - 0.20 K/mcL LAB HEMETOLOGY METHOD 11/10/2024 8:44 AM [facility] LAB Immature Granulocytes Absolute 0.03 0.00 - 0.03 K/mcL LAB HEMETOLOGY METHOD 11/10/2024 8:44 AM [facility] LAB Blood Venous blood specimen / Unknown Venipuncture / Unknown 11/10/2024 6:06 AM EST 11/10/2024 8:03 AM EST us Gloria Preston MD LAB BLOOD ORDERABLES Final Resu lt [facility] LAB [address] [place] [address], [place] [phone] * Magnesium (11/10/2024 6:06 AM EST) Pathologist [facility] Magnesium 2.0 1.9 - 2.6 mg/dL LAB CHEMISTRY METHOD 11/10/2024 9:04 AM [facility] LAB Blood Venous blood specimen / Unknown Venipuncture / Unknown 11/10/2024 6:06 AM EST 11/10/2024 8:03 AM EST us Gloria Preston MD LAB BLOOD ORDERABLES Final Resu lt [facility] [address] [place] [address], [place] [phone] * (ABNORMAL) Basic metabolic panel (11/10/2024 6:06 AM EST) Pathologist [facility] Sodium 136 133 - 145 mmol/L LAB CHEMISTRY METHOD 11/10/2024 9:04 AM [facility] LAB Potassium 4.3 3.5 - 5.5 mmol/L LAB CHEMISTRY METHOD 11/10/2024 9:04 AM [facility] LAB Chloride 103 96 - 110 mmol/L LAB CHEMISTRY METHOD 11/10/2024 9:04 AM [facility] LAB CO2 25 21 - 32 mmol/L LAB CHEMISTRY METHOD 11/10/2024 9:04 AM [facility] LAB Anion Gap 8 3 - 11 LAB CHEMISTRY METHOD 11/10/2024 9:04 AM [facility] LAB Glucose 94 70 - 100 mg/dL LAB CHEMISTRY METHOD 11/10/2024 9:04 AM [facility] BUN 22 5 - 25 mg/dL LAB CHEMISTRY METHOD 11/10/2024 9:04 AM [facility] LAB Creatinine 0.54(L) 0.70 - 1.30 mg/dL LAB CHEMISTRY METHOD 11/10/2024 9:04 AM EST [facility] LAB eGFR 98 >=60 mL/min/1. 73m2 LAB CHEMISTRY METHOD 11/10/2024 9:04 AM [facility] LAB Comment:Calculation based on the??Chronic Kidney Disease Epidemiology Collaboration (CKD-EPI) equation refit??without adjustment for race. BUN/Creatinine Ratio 40.7 LAB CHEMISTRY METHOD 11/10/2024 9:04 AM [facility] LAB Calcium 9.1 8.5 - 10.5 mg/dL LAB CHEMISTRY METHOD 11/10/2024 9:04 AM [facility] LAB Blood Venous blood specimen / Unknown Venipuncture / Unknown 11/10/2024 6:06 AM EST 11/10/2024 8:03 AM EST us Gloria Preston MD LAB BLOOD ORDERABLES Final Resu lt [facility] [address] [place] [address], documented in this encounter Visit Diagnoses Diagnosis Encounter for other general examination documented in this encounter Care Teams Rn Progressive Care Unit Relationship Specialty Start Date End Date Gloria Preston MD [address] [place] [phone] PCP - General Hospitalist Medicine 11/05/24 documented as of this encounter
--- OUTSIDE RECORDS SUMMARY | 2024-12-30 11:34 | XMS_ITS | Encounter Summary ---
Author Organization [facility] Address [address] [place] [address] Care Team Providers Care Electrical Maintenance Mechanic Name Role Phone Gloria Preston MD Primary Care Provider [phone] Encounter Details Date Type Department Care Team (Late st Contact Info) Description 11/05/2024 Lab Requisition [facility] - Main Lab [address] [place] [address] Gloria Preston MD [address] [place] [id number] Encounter for other general examination Social History [...] CBC auto differential (11/05/2024 5:51 AM EST) [facility] [address] WBC 8.0 4.8 - 10.8 K/mcL LAB HEMETOLOGY METHOD 11/05/2024 11:21 AM [facility] RBC 4.20(L) 4.50 - 5.50 M/mcL LAB HEMETOLOGY METHOD 11/05/2024 11:21 AM [facility] Hemoglobin 13.8 13.5 - 17.5 g/dL LAB HEMETOLOGY METHOD 11/05/2024 11:21 AM [facility] LAB Hematocrit 39.6(L) 42.0 - 54.0 % LAB HEMETOLOGY METHOD 11/05/2024 11:21 AM [facility] MCV 94.7 79.0 - 98.0 FL LAB HEMETOLOGY METHOD 11/05/2024 11:21 AM [facility] LAB MCH 33.0(H) 27.0 - 32.0 pcg LAB HEMETOLOGY METHOD 11/05/2024 11:21 AM [facility] LAB MCHC 34.8 32.0 - 37.0 g/dL LAB HEMETOLOGY METHOD 11/05/2024 11:21 AM [facility] RDW 12.7 11.0 - 15.0 % LAB HEMETOLOGY METHOD 11/05/2024 11:21 AM [facility] LAB Platelets 261 130 - 400 K/mcL LAB HEMETOLOGY METHOD 11/05/2024 11:21 AM [facility] MPV 10.4 7.0 - 11.0 FL LAB HEMETOLOGY METHOD 11/05/2024 11:21 AM [facility] NRBC 0.0 <1.0 % LAB HEMETOLOGY METHOD 11/05/2024 11:21 AM [facility] LAB NRBC Absolute 0.00 <0.10 K/mcL LAB HEMETOLOGY METHOD 11/05/2024 11:21 AM [facility] Neutrophils Relative 73.3 % LAB HEMETOLOGY METHOD 11/05/2024 11:21 AM [facility] Lymphocytes Relative 10.6 % LAB HEMETOLOGY METHOD 11/05/2024 11:21 AM [facility] Monocytes Relative 14.7 % LAB HEMETOLOGY METHOD 11/05/2024 11:21 AM [facility] Eosinophils Relative 0.4 % LAB HEMETOLOGY METHOD 11/05/2024 11:21 AM [facility] Basophils Relative 0.6 % LAB HEMETOLOGY METHOD 11/05/2024 11:21 AM [facility] Immature Granulocytes Relative 0.4 % LAB HEMETOLOGY METHOD 11/05/2024 11:21 AM [facility] Neutrophils Absolute 5.87 1.50 - 7.00 K/mcL LAB HEMETOLOGY METHOD 11/05/2024 11:21 AM [facility] Lymphocytes Absolute 0.85(L) 1.00 - 5.00 K/mcL LAB HEMETOLOGY METHOD 11/05/2024 11:21 AM [facility] Monocytes Absolute 1.18(H) 0.20 - 1.00 K/mcL LAB HEMETOLOGY METHOD 11/05/2024 11:21 AM [facility] Eosinophils Absolute 0.03 0.00 - 0.50 K/mcL LAB HEMETOLOGY METHOD 11/05/2024 11:21 AM [facility] Basophils Absolute 0.05 0.00 - 0.20 K/mcL LAB HEMETOLOGY METHOD 11/05/2024 11:21 AM [facility] Immature Granulocytes Absolute 0.03 0.00 - 0.03 K/mcL LAB HEMETOLOGY METHOD 11/05/2024 11:21 AM [facility] Blood Venous blood specimen / Unknown Venipuncture / Unknown 11/05/2024 5:51 AM EST 11/05/2024 9:43 AM EST us Gloria Preston MD LAB BLOOD ORDERABLES Final Resu lt [facility] [address] [place] [address], [place] [phone] * Magnesium (11/05/2024 5:51 AM EST) [facility] [address] Magnesium 2.0 1.9 - 2.6 mg/dL LAB CHEMISTRY METHOD 11/05/2024 11:42 AM EST [facility] Blood Venous blood specimen / Unknown Venipuncture / Unknown 11/05/2024 5:51 AM EST 11/05/2024 9:43 AM EST us Gloria Preston MD LAB BLOOD ORDERABLES Final Resu lt Performing Organization Address City/[facility]/ZIP Co de Phone Number [facility] [address] [place] [address], [place] [phone] * (ABNORMAL) Comprehensive metabolic panel (11/05/2024 5:51 AM EST) [facility] [address] Sodium 133 133 - 145 mmol/L LAB CHEMISTRY METHOD 11/05/2024 11:44 AM [facility] Potassium 4.1 3.5 - 5.5 mmol/L LAB CHEMISTRY METHOD 11/05/2024 11:44 AM [facility] Chloride 99 96 - 110 mmol/L LAB CHEMISTRY METHOD 11/05/2024 11:44 AM [facility] CO2 24 21 - 32 mmol/L LAB CHEMISTRY METHOD 11/05/2024 11:44 AM [facility] Anion Gap 10 3 - 11 LAB CHEMISTRY METHOD 11/05/2024 11:44 AM [facility] Glucose 92 70 - 100 mg/dL LAB CHEMISTRY METHOD 11/05/2024 11:44 AM [facility] BUN 18 5 - 25 mg/dL LAB CHEMISTRY METHOD 11/05/2024 11:44 AM [facility] Creatinine 0.54(L) 0.70 - 1.30 mg/dL LAB CHEMISTRY METHOD 11/05/2024 11:44 AM [facility] LAB eGFR 98 >=60 mL/min/1. 73m2 LAB CHEMISTRY METHOD 11/05/2024 11:44 AM [facility] LAB Comment:Calculation based on the??Chronic Kidney Disease Epidemiology Collaboration (CKD-EPI) equation refit??without adjustment for race. BUN/Creatinine Ratio 33.3 LAB CHEMISTRY METHOD 11/05/2024 11:44 AM [facility] Calcium 9.0 8.5 - 10.5 mg/dL LAB CHEMISTRY METHOD 11/05/2024 11:44 AM [facility] AST (SGOT) 17 10 - 42 unit/L LAB CHEMISTRY METHOD 11/05/2024 11:44 AM [facility] ALT (SGPT) 19 10 - 60 unit/L LAB CHEMISTRY METHOD 11/05/2024 11:44 AM [facility] Alkaline Phosphatase 83 42 - 121 unit/L LAB CHEMISTRY METHOD 11/05/2024 11:44 AM [facility] Total Protein 6.6 6.0 - 8.0 g/dL LAB CHEMISTRY METHOD 11/05/2024 11:44 AM [facility] Albumin 2.8(L) 3.2 - 5.0 g/dL LAB CHEMISTRY METHOD 11/05/2024 11:44 AM [facility] Total Bilirubin 1.1 0.0 - 1.4 mg/dL LAB CHEMISTRY METHOD 11/05/2024 11:44 AM [facility] Blood Venous blood specimen / Unknown Venipuncture / Unknown 11/05/2024 5:51 AM EST 11/05/2024 9:43 AM EST us Gloria Preston MD LAB BLOOD ORDERABLES Final Resu lt [facility] [address] [place] [address], documented in this encounter Visit Diagnoses Diagnosis Encounter for other general examination documented in this encounter Care Teams Electrical Maintenance Mechanic Relationship Specialty Start Date End Date Gloria Preston MD [address] [place] [phone] PCP - General Hospitalist Medicine 11/05/24 documented as of this encounter
--- OUTSIDE RECORDS SUMMARY | 2024-12-30 11:34 | XMS_ITS ---
Author Organization [facility] Address [address] [place] [address] Care Team Providers Care Brokerage Branch Manager Name Role Phone Robbie Kothari MD Primary Care Provider UnavailAna Damon Unavailable [phone] Allergies Allergen (clinical drug ingredient) Drug/Non Drug [...] 06/28/2024 Encounters Encounter Location Date Provider Diagnosis [facility] [address] [place] [address] 06/28/2024 Ana Hernandez Tinea unguium B35.1 ; [...] Reason: Provider Name:Ana garduno, 03/28/2025 11:15:00 AM, [address] [place] [address], [phone], Procedure Notes * Category Sub-Category Detail Notes [...] as necessary. Patient chooses, no pharmaceutical tx ([id number]) Progress Notes * Freeman ROCHADOB: 0 (84 yo M)Acc No.[id number]:06/28/2024 Progress Note Patient:?Freeman Rocha Provider:?Ana Hernandez DPM :1940???Age:84 Y???Sex:Male Lokesh e:06/28/2024 [id number] Pcp:Robbie Kothari MD Subjective: * Chief Complaints: [...] yes, walking. ?Marital status: . ?Occupation: Retired- [employer]. * Medications:?TakingAtorvasta tin Calcium 10 MG Tablet [...] as necessary. Patient chooses, no pharmaceutical tx ([id number]).? * Procedure Codes:?80955 DEBRI DE NAIL, 6 OR MORE, Modifiers: XS * Follow Up:?3 Months * Images: * Sign off status: Completed true * Provider:?Ana Hernandez, DPAntonio Date:? Generated for Chip andres/Awais/eTransmitting on:?12/30/2024 11:34 AM EDT History and Physical [...]
--- OUTSIDE RECORDS SUMMARY | 2024-12-30 11:34 | XMS_ITS | Patient Health Record ---
Author Organization Robbie Kothari III, MD Address [address] [place] [address] Care Team Providers [facility] Insurance Clerk Name Role Phone Robbie Kothari Primary Care Provider [phone] Allergies Allergen (clinical drug ingredient) Drug/Non Drug Allergy documented on EMR Reaction Allergy Type Onset Date Status No Known Drug Allergy Unknown Drug Allergy Active Results Component Value Reference Range Notes Hold Lt Blue - Possible Coag Reviewed date:10/30/2024 09:55:19 AM Interpretation: Performing Lab:[facility], [address] [place] [phone] Notes/Report: Hold Lt Blue - Possible Coag SEE NOTE Specimen will be held untested for 4 hours. Call Hematology if testing is desired. Comprehensive Met. Panel Reviewed date:10/30/2024 09:55:19 AM Interpretation: Performing Lab:[facility], [address] [place] [phone] Notes/Report: Sodium 131 135-145 mmol/L Potassium 4.2 [...] Magnesium Reviewed date:10/30/2024 09:55:19 AM Interpretation: Performing Lab:[facility], [address] [place] [phone] Notes/Report: Magnesium 1.5 1.6-2.6 mg/dL Troponin-I High Sensitivity Reviewed date:10/30/2024 09:55:19 AM Interpretation: Performing Lab:[facility], [address] [place] [phone] Notes/Report: Troponin-I High Sensitivity 3.1 <3.5-35.0 ng/L The Duran high sensitivity Troponin-I results should be used in conjunction with other diagnostic information such as ECG, clinical observations and information, and patient symptoms to aid in the diagnosis of NH. SARS-CoV2/FLU/RSV Reviewed date:10/30/2024 09:55:19 AM Interpretation: Performing Lab:[facility], [address] [place] [phone] Notes/Report: Influenza A PCR NEGATIVE Negative Influenza [...] by authorized laboratories. Testing performed on the [employer] GeneXpert utilizing real-time RT-PCR. All SARS CoV2 and positive influenza A/B results are reported to [facility]. CT head for stroke Reviewed date:10/30/2024 09:55:19 AM Interpretation: Performing Lab: Notes/Report: [address] [address] [address] Scan Report Signed Patient: Freeman King MR#: [id number] [birth year] : 1940 Acct:[id number] Age/Sex: 84 / M ADM Date: 10/27/24 Loc: HO.ED Attending Dr: Ordering Physician: Alejandrina Mazariegos Date of Service: 10/27/24 Procedure(s): CT head for STROKE Accession Number(s): [id number] cc: Robbie Kothari MD; Alejandrina Mazariegos Report Number: [id number]: Total DLP = 799.00 mGy-cm EXAMINATION: CT [...] lobe. There is resultant mass effect and jjib-bf-kurhl midline shift of 3 mm. There is [...] atrium. 3. There is 3 mm of nbbi-wc-uqinn midline shift. No impending herniation at this time. This critical result was discussed with Alejandrina Mazariegos at 12:11 PM, on 10/27/2024 via phone call. Electronically signed by: Zohaib Brown MD 10/27/2024 12:14 PM [facility] Dictated By: Zohaib Brown MD Signed By: <Electronically signed by Zohaib Brown MD in OV> 10/27/24 1214 DD/ 1148 TD/TT: 10/27/24 1156 Wiping Rag Washer: [place] [address] [address] Scan Report Signed Patient: Jeremiah King MR#: [id number] [birth year] : 1940 Acct:[id number] Age/Sex: 84 / M ADM Date: 10/27/24 Loc: HO.ED Attending Dr: Ordering Physician: Alejandrina Mazariegos Date of Service: 10/27/24 Procedure(s): CT hea d for STROKE Accession Number(s): [id number] cc: Robbie Kothari MD; Alejandrina Mazariegos Report [...] There is resultant m ass effect and wgmv-ec-jvunf midline shift of 3 mm. There is [...] atrium. 3. There is 3 mm of eimc-bu-ngkwf midline shift. No impending herniation at this time. This critical result was discussed with Alejandrina Mazariegos at 12:11 PM, on 10/27/2024 via phone call. Electronically gurpreet d by: Zohaib Brown MD 10/27/2024 12:14 PM [facility] Dictated By: Zohaib Brown MD Signed By: <Electronically signed by Zohaib Brown MD in OV> 10/27/24 1214 DD/ 1148 TD/TT: 10/27/24 1156 Wiping Rag Washer: CT cervical spine wo con Reviewed date:10/30/2024 09:55:19 AM Interpretation: Performing Lab: Notes/Report: [address] [address] [address] Scan Report Signed Patient: Freeman King MR#: [id number] [birth year] : 1940 Acct:[id number] Age/Sex: 84 / M ADM Date: 10/27/24 Loc: .ED Attending Dr: Ordering Physician: Alejandrina Mazariegos Date of Service: 10/27/24 Procedure(s): CT cervical spine wo IV con Accession Number(s): [id number] cc: Robbie Kothari MD; Alejandrina Mazariegos Report Number: [id number]: Total DLP = 376.00 mGy-cm EXAMINATION: CT [...] by: Zohaib Brown MD 10/27/2024 02:23 PM [facility] Dictated By: Zohaib Brown MD Signed By: <Electronically signed by Zohaib Brown MD in OV> 10/27/24 1423 DD/ 1212 TD/TT: 10/27/24 1334 Wiping Rag Washer: [place] [address] [place] Scan Report Signed Patient: Jeremiah King MR#: [id number] [birth year] : 1940 Acct:[id number] Age/Sex: 84 / M ADM Date: 10/27/24 Loc: HO.ED Attending Dr: Ordering Physician: Alejandrina Mazariegos Date of Service: 10/27/24 Procedure(s): CT cer vical spine wo IV con Accession Number(s): [id number] cc: Robbie Kothari MD; Alejandrina Mazariegos Report [...] by: Zohaib Brown MD 10/27/2024 02:23 PM [facility] Dictated By: Zohaib Brown MD Signed By: <Electronically signed by Zohaib Brown MD in OV> 10/27/24 1423 DD/ 1212 TD/TT: 10/27/24 1334 Wiping Rag Washer: XR chest 1V Reviewed date:10/30/2024 09:55:19 AM Interpretation: Performing Lab: Notes/Report: [address] [address] XRay Report Signed Patient: Freeman King MR#: [id number] [birth year] : 1940 Acct:[id number] Age/Sex: 84 / M ADM Date: 10/27/24 Loc: HO.ED Attending Dr: Ordering Physician: Alejandrina Mazariegos Date of Service: 10/27/24 Procedure(s): XR chest 1V Accession Number(s): [id number] cc: Robbie Kothari MD; Alejandrina Mazariegos EXAMINATION: [...] by: Zohaib Brown MD 10/27/2024 01:41 PM [facility] Dictated By: Zohaib Brown MD Signed By: <Electronically signed by Zohaib Brown MD in OV> 10/27/24 1341 DD/ 1127 TD/TT: 10/27/24 1328 Wiping Rag Washer: [address] [address] XRay Report Signed Patient: Jeremiah King MR#: [id number] [birth year] : 1940 Acct:[id number] Age/Sex: 84 / M ADM Date: 10/27/24 Loc: HO.ED Attending Dr: Ordering Physician: Alejandrina Mazariegos Date of Service: 10/27/24 Procedure(s): XR chest 1V Accession Number(s): [id number] cc: Robbie Kothari MD; Alejandrina Mazariegos EXAMINATION: [...] by: Zohaib Brown MD 10/27/2024 01:41 PM [facility] Dictated By: Zohaib Brown MD Signed By: <Electronically signed by Zohaib Brown MD in OV> 10/27/24 1341 DD/ 1127 TD/TT: 10/27/24 1328 Wiping Rag Washer: XR chest 2V Reviewed date:12/16/2024 03:30:40 PM Interpretation: Performing Lab: Notes/Report: [address] [address] XRay Report Signed Patient: Freeman King MR#: [id number] [birth year] : 1940 Acct:[id number] Age/Sex: 84 / M ADM Date: 12/02/24 Loc: HO.XRAY Attending Dr: Robbie Kothari MD Ordering Physician: Denilson Minor MD Date of Service: 12/02/24 Procedure(s): XR chest 2V Accession Number(s): [id number] cc: Robbie Kothari MD; Denilson Minor MD [...] 12/02/24 1150 DD/ 1042 TD/TT: 12/02/24 1052 Wiping [employer] Washer: [place] [address] XRay Report Signed Patient: Jeremiah King MR#: [id number] [birth year] : 1940 Acct:[id number] Age/Sex: 84 / M ADM Date: 12/02/24 Loc: HO.XRAY Attending Dr: Robbie Kothari MD Ordering Physician: Denilson Minor MD Date of Service: 12/02/24 Procedure(s): XR chest 2V Accession Number(s): [id number] cc: Robbie Kothari MD; Denilson Minor MD [...] 12/02/24 1150 DD/ 1042 TD/TT: 12/02/24 1052 Wiping Rag Washer: Complete Blood Count Auto Di ff Reviewed date:12/16/2024 03:30:40 PM Interpretation: Performing Lab:[facility], [address] [place] [phone] Notes/Report: White Blood Count 5.2 4.8-10.8 X10*3/uL [...] Panel Reviewed date:12/16/2024 03:30:40 PM Interpretation: Performing Lab:[address] [address] Notes/Report: Sodium 136 135-145 mmol/L Potassium 3.9 [...] Magnesium Reviewed date:12/16/2024 03:30:40 PM Interpretation: Performing Lab:[facility], [address] [place] [phone] Notes/Report: Magnesium 1.8 1.6-2.6 mg/dL XR chest 2V Reviewed date:12/16/2024 03:30:40 PM Interpretation: Performing Lab: Notes/Report: [address] [address] XRay Report Signed Patient: Freeman King MR#: [id number] [birth year] : 1940 Acct:[id number] Age/Sex: 84 / M ADM Date: 12/16/24 Loc: JILLIAN Attending Dr: Denilson Minor MD Ordering Physician: Denilson Minor MD Date of Service: 12/16/24 Procedure(s): XR chest 2V Accession Number(s): [id number] cc: Robbie Kothari MD; Denilson Minor MD [...] 12/16/24 1138 DD/ 1048 TD/TT: 12/16/24 1110 Wiping [employer] Washer: [place] [address] XRay Report Signed Patient: Jeremiah King MR#: [id number] [birth year] : 1940 Acct:[id number] Age/Sex: 84 / M ADM Date: 12/16/24 Loc: HO.XRAY Attending Dr: Denilson Minor MD Ordering Physician: Denilson Minor MD Date of Service: 12/16/24 Procedure(s): XR chest 2V Accession Number(s): [id number] cc: Robbie Kothari MD; Denilson Minor MD [...] Lázaro Ely MD 12/16/2024 11:38 AM EDT Dictated By: Lázaro Garcia MD Signed By: <Electronically signed by Lázaro Monique MD in OV> 12/16/24 1138 DD/ 1048 TD/TT: 12/16/24 1110 Wiping Rag Washer: Complete Blood Count Auto Di ff (Not yet reviewed by provider) Interpretation: Performing Lab:[facility], [address] [place] [phone] Notes/Report: White Blood Count 6.5 4.8-10.8 X10*3/uL Red Blood Count 4.45 4.60-5.80 X10*6/uL Hemoglobin 14.3 14.0-18.0 g/dl Hematocrit 41.5 42.0-52.0 % Mean Corpuscular Volume 93.3 80.0-98.0 fL Mean Corpuscular Hemoglobin 32.1 27.0-33.0 pg Mean Corpuscular HGB Conc 34.5 31.0-36.0 g/dl Red Cell Distribution Width 13.6 11.0-16.0 % Platelet Count 303 160-400 X10*3/uL Mean Platelet Volume 9.8 9.4-12.4 fL Neutrophils Percent Auto 71.1 45-73 % Imm Gran Pct Auto 0.5 0.0-0.4 % Lymphocytes Percent Auto 14.7 20-40 % Monocytes Percent Auto 11.0 2-11 % Eosinophils Percent Auto 1.9 0-4 % Basophils Percent Auto 0.8 0-2 % NRBC Pct Auto 0.0 0.0-0.2 /100WBC Neutrophils Absolute Auto 4.6 2.0-8.3 x10*3/u L Imm Gran Abs Auto 0.03 0.00-0.03 X10*3/uL Lymphocytes Absolute Auto 1.0 1.2-4.9 X10*3/u L Monocytes Absolute Auto 0.7 0.1-1.2 X10*3/uL Eosinophils Absolute Auto 0.1 0.0-0.4 X10*3/u L Basophils Absolute Auto 0.1 0.0-0.2 X10*3/uL NRBC Abs Auto 0.000 0.0-0.012 X10*3/uL Comprehensive [place]. Panel Fa st (Not yet reviewed by provider) Interpretation: Performing Lab:[facility], [address] [place] [phone] Notes/Report: Sodium 135 135-145 mmol/L Potassium 4.2 3.3-5.1 mmol/L Chloride 98 96-108 mmol/L Carbon Dioxide 29 22-29 mmol/L Anion Gap 12 12-20 Blood Urea Nitrogen 13 9-16 mg/dL Creatinine 0.72 0.5-1.4 mg/dL Estimated Glomerular Filt Rate > 60 Chronic Kidney Disease: Estimated GFR < 60 mL/min/1.73m2 Severe Kidney Disease: Estimated GFR < 15 mL/min/1.73m2 Glucose Fasting 75 60-99 mg/dL Calcium 9.9 8.4-10.2 mg/dL Bilirubin Total 0.5 0.0-1.0 mg/dL Aspartate Amino Transferase 27 5-37 U/L Alanine Aminotransferase 26 0-40 U/L Total Protein 7.6 6.5-8.0 g/dL Albumin Level 3.8 3.5-5.0 g/dL Alkaline Phosphatase 82 39-117 U/L Lipid Panel (Not yet reviewe d by provider) Interpretation: Performing Lab:[facility], [address] [place] [phone] Notes/Report: Triglycerides 84 <150 mg/dL Desirable Triglyceride: less than 150 mg/dL Borderline High Triglyceride 150-199 mg/dL High Triglyceride: 200-499 mg/dL Very High Triglyceride: greater than or equal to 5OO mg/dL Cholesterol 164 <200 mg/dL Desirable Cholesterol: less than 200 mg/dL Borderline High Cholesterol: 200-239 mg/dL High Cholesterol: greater than 239 mg/dL LDL Cholesterol Calculated 96 <100 mg/dL Desirable LDL: less than 100 mg/dL Near Optimal/Above Optimal LDL: 110-129 mg/dL Borderline High LDL: 130-159 mg/dL High LDL: 160-189 mg/dL Very High LDL: greater than or equal to 190 mg/dL HDL Cholesterol 52 >40 mg/dL Desirable HDL: greater than 40 mg/dL Note: This HDL assay may give artificially low results in patients with liver disease. Prostate Specific Antigen (N ot yet reviewed by provider) Interpretation: Performing Lab:[facility], [address] [place] [phone] Notes/Report: Prostate Specific Antigen 2.95 <0.05-4.0 ng/mL PSA methodology: Duran Alinity i Chemiluminescent Microparticle Immunoassay (CMIA) Complete Blood Count Auto Di ff (Not yet reviewed by provider) Interpretation: Performing Lab:[facility], [address] [place] [phone] Notes/Report: White Blood Count 9.1 4.8-10.8 X10*3/uL Red Blood Count 4.34 4.60-5.80 X10*6/uL Hemoglobin 13.9 14.0-18.0 g/dl Hematocrit 39.9 42.0-52.0 % Mean Corpuscular Volume 91.9 80.0-98.0 fL Mean Corpuscular Hemoglobin 32.0 27.0-33.0 pg Mean Corpuscular HGB Conc 34.8 31.0-36.0 g/dl Red Cell Distribution Width 13.3 11.0-16.0 % Platelet Count 278 160-400 X10*3/uL Mean Platelet Volume 9.5 9.4-12.4 fL Neutrophils Percent Auto 82.6 45-73 % Imm Gran Pct Auto 0.5 0.0-0.4 % Lymphocytes Percent Auto 7.9 20-40 % Monocytes Percent Auto 8.3 2-11 % Eosinophils Percent Auto 0.2 0-4 % Basophils Percent Auto 0.5 0-2 % NRBC Pct Auto 0.0 0.0-0.2 /100WBC Neutrophils Absolute Auto 7.5 2.0-8.3 x10*3/u L Imm Gran Abs Auto 0.05 0.00-0.03 X10*3/uL Lymphocytes Absolute Auto 0.7 1.2-4.9 X10*3/u L Monocytes Absolute Auto 0.8 0.1-1.2 X10*3/uL Eosinophils Absolute Auto 0.0 0.0-0.4 X10*3/u L Basophils Absolute Auto 0.1 0.0-0.2 X10*3/uL NRBC Abs Auto 0.000 0.0-0.012 X10*3/uL Partial Thromboplastin Time (Not yet reviewed by provider) Interpretation: Performing Lab:[address] [address] Notes/Report: Partial Thromboplastin Time 33.0 26.0-36.8 SEC For information regarding the monitoring of direct thrombin inhibitors, please refer to Pharmacy. Lactic Acid (Not yet reviewe d by provider) Interpretation: Performing Lab:[facility], [address] [place] [phone] Notes/Report: Lactic Acid 1.0 0.5-2.0 mmol/L Uric Acid (Not yet reviewed by provider) Interpretation: Performing Lab:[address] [address] Notes/Report: Uric Acid 4.1 3.4-7.0 mg/dL Troponin-I High Sensitivity (Not yet reviewed by provider) Interpretation: Performing Lab:[address] [address] Notes/Report: Troponin-I High Sensitivity 3.4 <3.5-35.0 ng/L The Duran high sensitivity Troponin-I results should be used in conjunction with other diagnostic information such as ECG, clinical observations and information, and patient symptoms to aid in the diagnosis of NH. B Type Natriuretic Peptide ( Not yet reviewed by provider) Interpretation: Performing Lab:[address] [address] Notes/Report: B Type Natriuretic Peptide 82 <100 pg/mL Reason For Referral Reason Urgent Referral Requ est Evaluate and Treat ? Catheter Can not tolerate tamsulosin Diagnosis 1 Benign prostatic hyp erplasia with lower urinary tract symptoms (N40.1) Diagnosis 2 Nocturia (R35.1) Referral Organization Robbie Kothari III, MD Referring Provider First Name Robbie Referring Provider Last Name Saniya Referring Provider Speciality Internal M edicine Referred Provider [facility], Urology Referred Provider Specialty Urology General Notes Nelly 12/06/2024 09:06:05 AM > Faxed referral and progress notes from last 2 visits, Nelly 12/12/2024 10:23:22 AM > stated they did [...] Problem Status W/U Status Risk Notes Problem 3454471 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 Problem Hyperlipidemia (96691993) Hyperlipidemia (E78.5) Active confirmed Distal cholesterol is stable but his triglycerides are elevated. He will continue on his current diet until he has fully recovered from the stroke. He will continue on his medications. Problem 33561202 Hyponatremia (E87.1) Active confirmed After admission to [facility] he required hypertonic saline and then 1 g of sodium chloride tablets 3 times a day to restore his potassium to normal. He was discharged without this. Blood work with a sodium level will be checked frequently. Problem 359028624 Underweight (R63.6) Active confirmed He has lost ove r 20 pounds since his last visit. His body mass index is 18. We discussed nutrition at length today. 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 He has been told by pulmonary that his infection is making progress. The CT scan of November 29 show stability in the 1.3 cm right upper lobe cavitary leesion. Problem 835716406 Rosacea (L71.9) Active confirmed He was given metronidazole gel. He was instructed in its use. Problem 007780786 Pulmonary nodule (R91.1) Active confirmed This is being observed. No change in his symptoms have been noted. Problem 553034080 Adenoma of ascending colon (D12.2) Active confirmed He will call he r gastroenterologis t to see if additional colonoscopies will be recommended. Problem 09715652 Abdominal hernia without obstruction and without gangrene, recurrence not specified, unspecified hernia type (K46.9) Active confirmed The hernia is n ow asymptomatic and will be observed without treatment. Problem Pneumonia (110344860) Pneumonia (J18.9) Active confirmed He is taking th e azithromycin 3 times a week. The other antibiotic has been discontinued. The pneumonia has resolved. He is breathing comfortably. Problem Seizure (53312171) Seizures (R56.9) Active confirmed Just before discharge from an [facility] rehabilitation he was begun on Keppra for periods of unresponsiveness. A repeat CT scan November 18, 2024 showed improvement in the hemorrhage and edema. The Her will be discontinued until the electroencephalog jackie is done. We have requested a repeat visit from [facility] neurology. Problem 3105419043887 Benign prostatic hyperplasia with lower urinary tract symptoms (N40.1) Active confirmed He says he is rising from sleep up to 4 times a night. His tamsulosin waas stopped because of a low blood pressure. It curtis now resumed. He is happy with this level of control. We discussed further lifestyle modifications he can maake to reduce nocturia. Problem 18894840 Sleep apnea in adult (G47.30) Active confirmed He is using t he new CPAP machine without difficulty and is pleased with the results. 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 Problem 67091466 Atrial arrhythmia (I49.8) Active confirmed He was in a normal sinus rhythm today with no abnormalities. He has had no episodes of tachycardia, syncope or palpitations. 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) [...] Date Provider Diagnosis Robbie Kothari III, MD [address] [place] [address] [place] [phone] 01/04/2024 Robbie Kothari Hyperlipidemia E78.5 ; Abdominal hernia without obstruction and without gangrene, recurrence not specified, unspecified hernia type K46.9 ; Former smoker Z87.891 ; Atrial arrhythmia I49.8 ; Rosacea L71.9 ; Mycobacterial infection, unspecified A31.9 ; Benign prostatic hyperplasia with lower urinary tract symptoms N40.1 and Sleep apnea in adult G47.30 Robbie Kothari III, MD [address] [place] [address] [place] [phone] 04/14/2024 Robbie Kothari Hyperlipidemia E78.5 ; Vertigo R42 ; Tinnitus, left H93.12 ; Former smoker Z87.891 ; Mycobacterial infection, unspecified A31.9 and Atrial arrhythmia I49.8 Robbie Kothari III, MD [address] [place] [address] [place] [phone] 04/15/2024 Robbie Kothari Hyperlipidemia E78.5 ; Labyrinthitis, unspecified laterality H83.09 ; Former smoker Z87.891 ; Rosacea L71.9 ; Mycobacterial infection, unspecified A31.9 and Right anterior knee pain M25.561 Robbie Kothari III, MD [address] [place] [address] [place] [id number] 04/22/2024 Robbie Kothari Hyperlipidemia E78.5 ; Benign prostatic hyperplasia with lower urinary tract symptoms N40.1 ; Former smoker Z87.891 ; Mycobacterial infection, unspecified A31.9 ; Sleep apnea in adult G47.30 and Labyrinthitis, unspecified laterality H83.09 Robbie Kothari III, MD [address] [place] [address] [place] [id number] 06/02/2024 Robbie Chance for immunization Z23 Robbie Kothari III, MD [address] [place] [address] [place] [id number] 07/25/2024 Robbie Kothari Hyperlipidemia E78.5 ; Mycobacterial infection, unspecified A31.9 ; Benign prostatic hyperplasia with lower urinary tract symptoms N40.1 ; Former smoker Z87.891 ; 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 and Sleep apnea in adult G47.30 Robbie Kothari III, MD [address] [place] [address] [place] [id number] 11/21/2024 Robbie Kothari Hyperlipidemia E78.5 ; Nontraumatic [...] in adult G47.30 Robbie Kothari III, MD [address] [place] [address] [place] [id number] 12/02/2024 Robbie Kothari Hyperlipidemia E78.5 ; 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 ; Pneumonia J18.9 ; Former smoker Z87.891 ; Mycobacterial infection, unspecified A31.9 ; Sleep apnea in adult G47.30 and Benign prostatic hyperplasia with lower urinary tract symptoms N40.1 Robbie Kothari III, MD [address] [place] [address] [place] [id number] 12/19/2024 Robbie Kothari Hyperlipidemia E78.5 ; 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 ; Pneumonia J18.9 ; Underweight R63.6 ; Seizures R56.9 ; Former smoker Z87.891 ; Mycobacterial infection, unspecified A31.9 ; Sleep apnea in adult G47.30 and Benign prostatic hyperplasia with lower urinary tract symptoms N40.1 Robbie Kothari III, MD [address] [place] [address] [place] [address] 10/28/2024 Robbie Kothari III, MD [address] [place] [address] [place] [address] 11/21/2024 Robbie Kothari III, MD [address] [place] [address] [place] [id number] 11/21/2024 Robbie Ktohari III, MD [address] [place] [address] [place] [address] 11/22/2024 Robbie Kothari III, MD [address] [place] [address] [place] [id number] 11/22/2024 Robbie Kothari III, MD [address] [place] [address] [place] [address] 11/25/2024 Robbie Kothari III, MD [address] [place] [address] [place] [id number] 11/25/2024 Robbie Kothari III, MD [address] [place] [address] [place] [id number] 12/05/2024 Robbie Kothari III, MD [address] [place] [address] [place] [address] 12/14/2024 Robbie Kothari III, MD [address] [place] [address] [place] [id number] 12/20/2024 Robbie Kothari Assessments Encounter Date Diagnosis [...] - R56.9) Just before discharge from an [facility] rehabilitation he was begun on Keppra for periods of unresponsiveness. A repeat CT scan November 18, 2024 showed improvement in the hemorrhage and edema. The Her will be discontinued until the electroencephalogram is done. We have requested a repeat visit from [facility] neurology. 12/02/2024 Pneumonia (ICD-10 - J18.9) He [...] Hyponatremia (ICD-10 - E87.1) After admission to [facility] he required hypertonic saline and then 1 [...] We have requested a repeat visit from [facility] neurology. 01/04/2024 Mycobacterial infection, unspecified (ICD-10 - [...] DIFF 04/22/2024 CBC WITH AUTO DIFF 07/22/2023 Complete Blood Count Auto Diff 5 Complete Blood Count Auto Diff 5 Partial Thromboplastin Time 12/30/2024 Comprehensive [place]. Panel Fast 5 Lactic Acid 12/30/2024 Uric Acid 12/30/2024 Troponin-I High Sensitivity 12/30/2024 B Type Natriuretic Peptide 12/30/2024 Lipid Panel 03/06/2021 Lipid Panel 10/08/2021 Lipid Panel 07/25/2024 Lipid Panel 04/22/2024 Lipid Panel 07/22/2023 Lipid Panel 12/29/2024 Prostate Specific Antigen 12/29/2024 Next Appt Details Provider Name:Robbie Kothari, 01/04/2025 03:30:00 PM, [address] [place] [address] ORLIN JOHNSON, ARM[place] CEDENO, [address], Insurance Providers Payer Name Payer Address Payer Phone Subscriber Number Group Number Insured Name Patient Relationship to Insured Coverage Start Date Coverage End Date [employer]vantage [address] [address] [place] [address] [id number] Freeman King Self - patient is the insured MEDICARE NGS [address] [place] [phone] [id number] Freeman King Self - patient is the insured Medical (General) History Medical History History ICD Code colonic poyps 2003 benign prostatic hyperplasia (BPH) hyperlipidemia left herniorraphy age 30 neck and right shoulder pain 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
--- OUTSIDE RECORDS SUMMARY | 2024-12-30 11:34 | XMS_ITS | Patient Health Record ---
Author Organization [facility] Address [address] [place] [address] Care Team Providers Care Perl Software Engineer Name Role Phone Robbie Kothari MD Primary Care Provider UnavailAna Damon Unavailable [phone] Allergies Allergen (clinical drug ingredient) Drug/Non Drug [...] 12/27/2024 Encounters Encounter Location Date Provider Diagnosis [facility] [address] [place] [address] 03/29/2024 Ana Hernandez Tinea unguium B35.1 ; Pain in right toe(s) M79.674 and Pain in left toe(s) M79.[address] [address] 06/28/2024 Ana Perica Tinea unguium B35.1 ; Pain in right toe(s) M79.674 and Pain in left toe(s) M79.[address] [address] 09/27/2024 Ana Perica Tinea unguium B35.1 ; Pain in right toe(s) M79.674 and Pain in left toe(s) M79.[address] [address] 12/27/2024 Ana Perica Tinea unguium B35.1 ; [...] toe(s) (ICD-10 - M79.674) 06/28/2024 Pain in right toe(s) (ICD-10 - M79.674) 03/29/2024 Pain in left toe(s) (ICD-10 - M79.675) 06/28/2024 Pain in left toe(s) (ICD-10 - M79.675) 12/27/2024 Pain in left toe(s) (ICD-10 - M79.675) 09/27/2024 Pain in left toe(s) (ICD-10 - M79.675) Plan Of Treatment Next Appt Details Provider Name:Ana Chun garduno, 03/28/2025 11:15:00 AM, [address] [place], [address], Insurance Providers Payer Name Payer Address Payer Phone Subscriber Number Group Number Insured Name Patient Relationship to Insured Coverage Start Date Coverage End Date [facility] Medicare-[id number] [address] [place] [address] [id number] Freeman King Self - patient is the insured Medical (General) History Medical History History ICD Code Measles Mumps Chicken pox Stroke Surgical History Surgery Date(Month/Year) hernia colonoscopy Hospitalization History Reason Date(Month/Year) [facility]- Stroke 10/2024
--- OUTSIDE RECORDS SUMMARY | 2024-12-30 11:34 | XMS_ITS | Encounter Summary ---
Author Organization [facility] Address [address] [place] [address] Care Team Providers Care Supervisor Continuous [employer] Name Role Phone Gloria Preston MD Primary Care Provider [phone] Encounter Details Date Type Department Care Team (Late st Contact Info) Description 11/07/2024 Lab Requisition [facility] - Main Lab [address] [place] [address] Gloria Preston MD [address] [place] [address] Encounter for other general examination Social History [...] LAB CHEMISTRY METHOD 11/07/2024 1:06 PM EST [facility] Potassium 3.9 3.5 - 5.5 mmol/L LAB CHEMISTRY METHOD 11/07/2024 1:06 PM EST [facility] Chloride 99 96 - 110 mmol/L LAB CHEMISTRY METHOD 11/07/2024 1:06 PM [facility] CO2 22 21 - 32 mmol/L LAB CHEMISTRY METHOD 11/07/2024 1:06 PM [facility] Anion Gap 13(H) 3 - 11 LAB CHEMISTRY METHOD 11/07/2024 1:06 PM [facility] Glucose 78 70 - 100 mg/dL LAB CHEMISTRY METHOD 11/07/2024 1:06 PM [facility] BUN 20 5 - 25 mg/dL LAB CHEMISTRY METHOD 11/07/2024 1:06 PM [facility] Creatinine 0.55(L) 0.70 - 1.30 mg/dL LAB CHEMISTRY METHOD 11/07/2024 1:06 PM [facility] eGFR 98 >=60 mL/min/1. 73m2 LAB CHEMISTRY METHOD 11/07/2024 1:06 PM [facility] Comment:Calculation based on the??Chronic Kidney Disease Epidemiology Collaboration (CKD-EPI) equation refit??without adjustment for race. BUN/Creatinine Ratio 36.4 LAB CHEMISTRY METHOD 11/07/2024 1:06 PM [facility] Calcium 8.6 8.5 - 10.5 mg/dL LAB CHEMISTRY METHOD 11/07/2024 1:06 PM [facility] AST (SGOT) 44(H) 10 - 42 unit/L LAB CHEMISTRY METHOD 11/07/2024 1:06 PM [facility] Comment:Results verified by repeat testing ALT (SGPT) 41 10 - 60 unit/L LAB CHEMISTRY METHOD 11/07/2024 1:06 PM [facility] Comment:Results verified by repeat testing Alkaline Phosphatase 100 42 - 121 unit/L LAB CHEMISTRY METHOD 11/07/2024 1:06 PM [facility] Total Protein 6.4 6.0 - 8.0 g/dL LAB CHEMISTRY METHOD 11/07/2024 1:06 PM EST [facility] Albumin 2.7(L) 3.2 - 5.0 g/dL LAB CHEMISTRY METHOD 11/07/2024 1:06 PM EST [facility] Total Bilirubin 1.1 0.0 - 1.4 mg/dL LAB CHEMISTRY METHOD 11/07/2024 1:06 PM EST [facility] Blood Venous blood specimen / Unknown Venipuncture / Unknown 11/07/2024 5:23 AM EST 11/07/2024 10:38 AM EST us Gloria Preston MD LAB BLOOD ORDERABLES Final Resu lt [facility] [address] [place] [address], documented in this encounter Visit Diagnoses Diagnosis Encounter for other general examination documented in this encounter Care Teams Supervisor [employer] Relationship Specialty Start Date End Date Gloria Preston MD [address] [place] [id number] PCP - General Hospitalist Medicine 11/05/24 documented as of this encounter
--- OUTSIDE RECORDS SUMMARY | 2024-12-30 11:35 | XMS_ITS | Encounter Summary ---
Author Organization [facility] Address [address] [place] [address] Care Team Providers Care Information Technology Consultant Name Role Phone Gloria Preston MD Primary Care Provider [phone] Encounter Details Date Type Department Care Team (Late st Contact Info) Description 11/18/2024 Lab Requisition [facility] - Main Lab [address] [facility] [place] [address] Gloria Preston MD [address] [place] [id number] Encounter for other general examination Social History [...] K/mcL LAB HEMETOLOGY METHOD 11/18/2024 4:02 PM [facility] RBC 3.90(L) 4.50 - 5.50 M/mcL LAB HEMETOLOGY METHOD 11/18/2024 4:02 PM [facility] Hemoglobin 12.8(L) 13.5 - 17.5 g/dL LAB HEMETOLOGY METHOD 11/18/2024 4:02 PM [facility] Hematocrit 37.1(L) 42.0 - 54.0 % LAB HEMETOLOGY METHOD 11/18/2024 4:02 PM [facility] MCV 94.2 79.0 - 98.0 FL LAB HEMETOLOGY METHOD 11/18/2024 4:02 PM [facility] MCH 32.5(H) 27.0 - 32.0 pcg LAB HEMETOLOGY METHOD 11/18/2024 4:02 PM [facility] MCHC 34.5 32.0 - 37.0 g/dL LAB HEMETOLOGY METHOD 11/18/2024 4:02 PM [facility] RDW 12.7 11.0 - 15.0 % LAB HEMETOLOGY METHOD 11/18/2024 4:02 PM [facility] Platelets 269 130 - 400 K/mcL LAB HEMETOLOGY METHOD 11/18/2024 4:02 PM [facility] MPV 9.8 7.0 - 11.0 FL LAB HEMETOLOGY METHOD 11/18/2024 4:02 PM [facility] NRBC 0.0 <1.0 % LAB HEMETOLOGY METHOD 11/18/2024 4:02 PM [facility] NRBC Absolute 0.00 <0.10 K/mcL LAB HEMETOLOGY METHOD 11/18/2024 4:02 PM [facility] Neutrophils Relative 70.4 % LAB HEMETOLOGY METHOD 11/18/2024 4:02 PM [facility] Lymphocytes Relative 16.0 % LAB HEMETOLOGY METHOD 11/18/2024 4:02 PM [facility] Monocytes Relative 12.8 % LAB HEMETOLOGY METHOD 11/18/2024 4:02 PM [facility] Eosinophils Relative 0.0 % LAB HEMETOLOGY METHOD 11/18/2024 4:02 PM [facility] Basophils Relative 0.5 % LAB HEMETOLOGY METHOD 11/18/2024 4:02 PM [facility] Immature Granulocytes Relative 0.3 % LAB HEMETOLOGY METHOD 11/18/2024 4:02 PM [facility] Neutrophils Absolute 2.64 1.50 - 7.00 K/mcL LAB HEMETOLOGY METHOD 11/18/2024 4:02 PM [facility] Lymphocytes Absolute 0.60(L) 1.00 - 5.00 K/mcL LAB HEMETOLOGY METHOD 11/18/2024 4:02 PM [facility] Monocytes Absolute 0.48 0.20 - 1.00 K/mcL LAB HEMETOLOGY METHOD 11/18/2024 4:02 PM [facility] Eosinophils Absolute 0.00 0.00 - 0.50 K/mcL LAB HEMETOLOGY METHOD 11/18/2024 4:02 PM [facility] Basophils Absolute 0.02 0.00 - 0.20 K/mcL LAB HEMETOLOGY METHOD 11/18/2024 4:02 PM [facility] Immature Granulocytes Absolute 0.01 0.00 - 0.03 K/mcL LAB HEMETOLOGY METHOD 11/18/2024 4:02 PM EST [facility] Blood Venous blood specimen / Unknown Venipuncture / Unknown 11/18/2024 2:59 PM EST 11/18/2024 3:36 PM EST us Gloria Preston MD LAB BLOOD ORDERABLES Final Resu lt Performing Organization Address [facility]/ZIP Co de Phone Number [facility] [address] [place] [address], [place] [phone] * Prolactin (11/18/2024 2:59 PM EST) Pathologist [facility] Prolactin 12.10 2.50 - 17.40 ng/mL LAB CHEMISTRY METHOD 11/18/2024 7:21 PM EST [facility] Blood Venous blood specimen / Unknown Venipuncture / Unknown 11/18/2024 2:59 PM EST 11/18/2024 3:36 PM EST us Gloria Preston MD LAB BLOOD ORDERABLES Final Resu lt Performing Organization Address [facility]/ZIP Co de Phone Number [facility] [address] [place] [address], [place] [phone] * (ABNORMAL) Magnesium (11/18/2024 2:59 PM EST) [facility] Magnesium 1.6(L) 1.9 - 2.6 mg/dL LAB CHEMISTRY METHOD 11/18/2024 7:07 PM EST [facility] Blood Venous blood specimen / Unknown Venipuncture / Unknown 11/18/2024 2:59 PM EST 11/18/2024 3:36 PM EST us Gloria Preston MD LAB BLOOD ORDERABLES Final Resu lt Performing Organization Address [facility]/ZIP Co de Phone Number [facility] [address] [place] [address], [place] [phone] * (ABNORMAL) Comprehensive metabolic panel (11/18/2024 2:59 PM EST) Sodium 134 133 - 145 mmol/L LAB CHEMISTRY METHOD 11/18/2024 7:21 PM [facility] Potassium 3.9 3.5 - 5.5 mmol/L LAB CHEMISTRY METHOD 11/18/2024 7:21 PM [facility] Chloride 98 96 - 110 mmol/L LAB CHEMISTRY METHOD 11/18/2024 7:21 PM [facility] CO2 27 21 - 32 mmol/L LAB CHEMISTRY METHOD 11/18/2024 7:21 PM [facility] Anion Gap 9 3 - 11 LAB CHEMISTRY METHOD 11/18/2024 7:21 PM [facility] Glucose 96 70 - 100 mg/dL LAB CHEMISTRY METHOD 11/18/2024 7:21 PM [facility] BUN 16 5 - 25 mg/dL LAB CHEMISTRY METHOD 11/18/2024 7:21 PM [facility] Creatinine 0.68(L) 0.70 - 1.30 mg/dL LAB CHEMISTRY METHOD 11/18/2024 7:21 PM [facility] eGFR 92 >=60 mL/min/1. 73m2 LAB CHEMISTRY METHOD 11/18/2024 7:21 PM [facility] Comment:Calculation based on the??Chronic Kidney Disease Epidemiology Collaboration (CKD-EPI) equation refit??without adjustment for race. BUN/Creatinine Ratio 23.5 LAB CHEMISTRY METHOD 11/18/2024 7:21 PM [facility] Calcium 8.8 8.5 - 10.5 mg/dL LAB CHEMISTRY METHOD 11/18/2024 7:21 PM [facility] AST (SGOT) 25 10 - 42 unit/L LAB CHEMISTRY METHOD 11/18/2024 7:21 PM [facility] ALT (SGPT) 22 10 - 60 unit/L LAB CHEMISTRY METHOD 11/18/2024 7:21 PM EST [facility] Alkaline Phosphatase 89 42 - 121 unit/L LAB CHEMISTRY METHOD 11/18/2024 7:21 PM EST [facility] Total Protein 6.5 6.0 - 8.0 g/dL LAB CHEMISTRY METHOD 11/18/2024 7:21 PM [facility] Albumin 2.8(L) 3.2 - 5.0 g/dL LAB CHEMISTRY METHOD 11/18/2024 7:21 PM [facility] Total Bilirubin 0.3 0.0 - 1.4 mg/dL LAB CHEMISTRY METHOD 11/18/2024 7:21 PM [facility] Blood Venous blood specimen / Unknown Venipuncture / Unknown 11/18/2024 2:59 PM EST 11/18/2024 3:36 PM EST us Gloria Preston MD LAB BLOOD ORDERABLES Final Resu lt [facility] [address] [place] [address], [place] [phone] documented in this encounter Visit Diagnoses Diagnosis Encounter for other general examination documented in this encounter Care Teams Information Technology Consultant Relationship Specialty Start Date End Date Gloria Preston MD [address] [place] [id number] PCP - General Hospitalist Medicine 11/05/24 documented as of this encounter
[2024-12-30 11:45] LABS: Erythrocyte Sedimentation Rate 60 MM/HR (0-15)
[2024-12-30] MEDS: iohexoL 350 MG/ML 100 ML INFUS..BTL IV (11:49)
--- NOTE | 2024-12-30 12:42 | PC.NURSE ---
neurology at bedside
[2024-12-30] MEDS: Piperacillin Sodium/Tazobactam 4.5 GM in 0.9 % Sodium Chloride 100 ML IV (13:50)
[2024-12-30] MEDS: methylPREDNISolone Sod Succ 40 MG/ML VIAL IVPUSH (13:50)
[2024-12-30] MEDS: Doxycycline Hyclate 100 MG in 0.9 % Sodium Chloride 250 ML 166.67 MG IV (13:51)
[2024-12-30 14:03] LABS: Appearance Urine Clear; Color Urine Yellow; Glucose Urine UA Negative (Negative); Leukocyte Esterase Urine Negative (Negative); Nitrite Urine Negative (Negative); PH 7.5 (5.0-9.0); Specific Gravity - Urine >= 1.030 (1.005-1.025); Urine Blood Negative (Negative); Urine Ketones Negative (Negative); Urine Protein Negative (Neg-Trace)
[2024-12-30 14:44] LABS: Influenza A PCR NEGATIVE (Negative); Influenza B PCR NEGATIVE (Negative); Resp Syncy Virus RNA Qual PCR NEGATIVE (Negative); SARS COV2 PCR INHOUSE NEGATIVE (Negative)
--- NOTE | 2024-12-30 15:21 | PHA.MEDREC ---
Addendum entered by Idris Li 12/30/24 15:36: reviewed Original Note: Pharmacy Consult ? Medication Reconciliation Pharmacy has completed the medication reconciliation. Spoke to patients at bedside to confirm med list. states patient is not taking Dextromethorphan-Guaifenesin 10 mg-100mg, Magnesium, and Midodrine 5 mg , last filled 11/21/24 for 90 days. confirmed Azithromycin 500 mg every Thursday, Thursday and Thursday. last dose was Thursday12/28/24.
--- NOTE | 2024-12-30 15:28 | PM.IMHP ---
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 Since his stroke patient has limited short-term memory and is unable to provide any significant history about what happened this morning. History is obtained from his at the bedside. She said she found him sitting on the toilet hunched over retching, he was unable to pull himself up, she laid him on the ground and called 911. There was no loss of consciousness. In the emergency department his orthostatic blood pressures were positive. He had a chest x-ray which showed concern for pneumonia. The patient denies any shortness of breath or any change in his cough. He also reported right wrist pain beginning early this morning in an x-ray of the right wrist revealed concern for pseudogout. The emergency room provider discussed the case with Orthopedic surgery who recommended oral steroids. He was also treated with IV antibiotics for pneumonia in the decision was made to admit him to the hospital for further management. Review of Systems Review of Systems: Yes all other systems are reviewed and are negative Constitutional: Constitutional: Denies chills and Denies fever(s) Cardiovascular: Cardiovascular: Denies chest pain, Denies palpitations and Denies dyspnea Respiratory: Respiratory: Denies cough and Denies dyspnea Endocrine: Endocrine: Denies palpitations [facility] Medical History COPD (chronic obstructive pulmonary disease) Mycobacterial disease Hernia HLD (hyperlipidemia) BPH (benign prostatic hyperplasia) Bronchiectasis Hemoptysis Pulmonary nodules Cough Abnormal chest x-ray Surgical History Hx of colonoscopy Social History Alcohol intake: former Patient Tobacco Use Status: Former Tobacco user Tobacco use type: Cigarette Years Smoked: 20 years Smoked in Last 30 Days: No Use of substances other than those prescribed or required for medical reasons: No Advance Directives: Yes Advance Directives Information Provided: Yes Advance Directives on File: No Meds Allergies Allergy/AdvReac Type Severity Reaction Status Date / Time latex [LATEX] Allergy Intermediate RASH Verified 12/30/24 09:50 Band-Aid Allergy Severe rash Uncoded 12/30/24 09:50 neosporin Allergy Severe rash Uncoded 12/30/24 09:50 Active Medications: Current Medications Acetaminophen (Acetaminophen 325 Mg Tablet) 650 mg PO Q6H PRN PRN Reason: Pain, Mild 1-3,fever,headache Albuterol Sulfate (Albuterol Sulfate (0.083%) 2.5 Mg/3 Ml Vial.Neb) 2.5 mg INHALE BID [facility] Atorvastatin Calcium (Atorvastatin Calcium 10 Mg Tablet) 10 mg PO DAILY [facility] Calcium Carbonate (Calcium Carbonate 750 Mg Tab.Chew) 750 mg PO Q4H PRN PRN Reason: Heartburn Enoxaparin Sodium (Enoxaparin Sodium 40 Mg/0.4 Ml Syringe) 40 mg SUBCUT Q24H [facility] Escitalopram Oxalate (Escitalopram Oxalate 10 Mg Tablet) 10 mg PO BEDTIME [facility] Ampicillin Sodium/Sulbactam (Sodium 1.5 gm/ Sodium Chloride) 100 mls @ 200 mls/hr IV Q6H [facility] Lactated Ringer's (Lr) 1,000 mls @ 80 mls/hr IVCONT .[id number] [facility] Melatonin (Melatonin 3 Mg Tablet) 6 mg PO BEDTIME PRN PRN Reason: Insomnia Sodium Chloride (0.9 % Sodium Chloride Flush 3 Ml Syringe) 3 ml IVFLUSH QSHIFT [facility] Home Medications ?Medication ?Instructions ?Recorded ?Confirmed ?Last Taken ?Type atorvastatin 10 mg tablet 10 mg PO DAILY 11/06/20 12/30/24 12/29/24 History nebulizers 06/30/22 Unknown History azithromycin 500 mg tablet 500 mg PO MOWEFR 12/30/24 12/30/24 12/28/24 History escitalopram oxalate 10 mg tablet 10 mg PO BEDTIME 12/30/24 12/30/24 12/29/24 History Physical Exam Vital Signs and Narrative: Vital Signs: Last Vital Signs Temp 99.0 F 12/30/24 14:47 Pulse 88 12/30/24 14:47 Resp 24 H 12/30/24 14:47 BP 109/55 L 12/30/24 14:47 Pulse Ox 92 12/30/24 14:47 O2 Del Method Room Air 04/18/25 14:47 BMI result Body Mass Index 19.1 Const: Other: alert and oriented, but forgetful General: cooperative, comfortable, no acute distress, alert and awake Nutritional Appearance: thin Resp: Effort & Inspection: normal respiratory effort, able to speak in complete sentences, no respiratory distress and no use of accessory muscles Cardio: Rate: regular rate GI: Inspection: No distended Palpation (GI): Soft to palpation and nontender Skin: Other: right wrist erythema, pain Neuro: General: moves all extremities and CN's II-XI intact bilaterally Results Labs 12/30/24 10:53 12/30/24 10:53 Labs: Laboratory Results - last 24 hr 12/30/24 12/30/24 12/30/24 10:53 13:50 14:01 MCV 91.9 MCH 32.0 MCHC 34.8 RDW 13.3 Plt Count 278 MPV 9.5 Immature Gran % (Auto) 0.5 H Neut % (Auto) 82.6 H Lymph % (Auto) 7.9 L White % (Auto) 8.3 Eos % (Auto) 0.2 Baso % (Auto) 0.5 Lymph # (Auto) 0.7 L White # (Auto) 0.8 Eos # (Auto) 0.0 Baso # (Auto) 0.1 Abs Immat Gran (auto) 0.05 H Absolute Neuts (auto) 7.5 Absolute Nucleated RBC 0.000 Nucleated RBC % (auto) 0.0 ESR 60 H APTT 33.0 Anion Gap 13 Estim Creat Clear Calc 75.9 Estimated GFR > 60 Random Glucose 91 Lactic Acid 1.0 Uric Acid 4.1 Calcium 9.8 Magnesium 1.7 Total Bilirubin 0.8 AST 38 H ALT 22 C-Reactive Protein 4.85 H B-Natriuretic Peptide 82 Total Protein 8.2 H Albumin 3.8 Lipase 43 Urine Color Yellow Urine Appearance Clear Urine pH 7.5 Ur Specific [place] >= 1.030 H Urine Protein Negative Urine Glucose (UA) Negative Urine Ketones Negative Urine Blood Negative Urine Nitrite Negative Ur Leukocyte Esterase Negative Influenza Type A (PCR) NEGATIVE Influenza Type B (PCR) NEGATIVE RSV RNA Qual (PCR) NEGATIVE SARS-CoV-2 RNA (RT-PCR) NEGATIVE Imaging Radiologist's Impressions: Impressions Chest X-Ray 12/30/24 10:31 IMPRESSION: 1. Compared with prior exams, new patchy opacities in the right medial lower lung, and retrocardiac region suspect for new infectious/inflammatory disease. 2. Chronic bronchiectasis, COPD, and reticular opacities in the right upper lobe and left midlung, similar to priors. Electronically signed by: Zohaib Brown MD 12/30/2024 12:10 PM EDT RP Head/Neck CTA 12/30/24 11:33 IMPRESSION: No acute intracranial hemorrhage. Resolved intracranial hemorrhage. No main cerebral artery occlusion or embolus. No cerebral aneurysm. No dissection. No high degree stenosis. Questionable acute on chronic airspace disease. Recommend bronchoscopy for better evaluation of the endotracheal nodularity. This critical test result is communicated to: Emergency physician Dr. Rahul Zamora on December 30, 2024 at 12:05 PM Electronically signed by: Lázaro Ely MD 12/30/2024 12:25 PM EDT RP Hand X-Ray 12/30/24 12:43 IMPRESSION: No acute fracture or dislocation. Consider CPPD. Electronically signed by: Lázaro Ely MD 12/30/2024 01:01 PM EDT RP Wrist X-Ray 12/30/24 12:43 IMPRESSION: Degenerative changes. CPPD should be considered. No acute fracture or dislocation. Electronically signed by: Lázaro Ely MD 12/30/2024 01:00 PM EDT RP Assessment and Plan (1) Orthostatic hypotension: Status: Acute (2) Acute pain of right wrist: Status: Acute Plan This is an 84-year-old male with history of HLD, BPH, bronchiectasis, subarachnoid hemorrhage in October 2024 treated at [facility] with resulting autonomic dysfunction presents to the emergency department after syncopal episode found to have orthostatic hypotension, pneumonia and right wrist pain caused by probable pseudogout Near-syncope due to orthostatic hypotension +orthostatic BPs likely from autonomic dysfunction due to recent stroke. good appetite, no vomiting or diarrhea will give gentle IV fluids, compression stockings repeat orthostatic blood pressures in the morning consider midodrine if persistent orthostatic hypotension Pneumonia On a background of bronchiectasis no sepsis cxr from 12/16 without acute changes, cxr from today showing new patchy opacities in the right medial lower lung and retrocardiac regions Recent history of stroke, risk for dysphagia Continue IV antibiotics, Zosyn Speech evaluation pulmonary consultation Blood cultures pending Pseudogout of right wrist Oral steroid taper Mild hyponatremia Possibly due to recent initiation of SSRI Follow BMP Depression Continue Lexapro HLD continue statin DVT prophylaxis-Lovenox Code status-DNR/DNI Patient will likely require 2 midnight stay in the hospital for management of pneumonia requiring IV antibiotics, orthostatic hypotension requiring IV fluid and close monitoring Quality Stroke Does the patient have a stroke diagnosis?: No VTE Prior VTE?: No VTE Risk Level:: Medical - moderate - high VTE Device Contraindication: N/A - Device Ordered VTE Drug Contraindication: N/A - Med Ordered
[2024-12-30] MEDS: Enoxaparin Sodium 40 MG/0.4 ML SYRINGE SUBCUT (15:49)
[2024-12-30] MEDS: Lactated Ringers 1,000 ML 80 ML IVCONT (16:49)
--- NOTE | 2024-12-30 17:26 | MHC.SL.SWA ---
Speech Pathologist Impression: Risk of Aspiration Due to: History of Pneumonia Reduced Cognition Dysphasia Diet Status: Liquid Consistency and Strategies for Safe Swallow: Liquid Intake Recommendation: Thin Liquid Intake Strategies: Small Sips Solid Food Consistency: Dietary Recommendations: Regular Additional Modifications to Solid Foods: Oral Medication Intake: Whole with Liquid Please contact the pharmacy regarding appropriate crushable or liquid drug formulations that are available whenever modified delivery is recommended. Compensatory Strategies and Precautions to be Taken for Safe Swallow: Supervision While Eating and Drinking for Safe Swallow: None Needed Foods to Avoid: Avoid tough, difficult to chew solids, too large pieces of food. Swallowing Recommended Treatments: Compens. Strategy Educat. Recommendation for Speech: Inpatient Speech Therapy Comment: Patient presents with most aspects of swallow WFL; Patient wears dentures, presented with some mild Right sided oral lingual weakness on assessment, likely residual from previous CVA. Recommend Start/continue on Regular Diet with Thin liquids, pills whole with liquid. DENEEN GARG notified of recommendation by secure text. [employer] to f/u X1 for toleration of recommended diet. Frequency/Duration: Date Range for Service Req: Timeline to reassess: Composition Professor Clinican/Clinical Fellow: No Supervisory Statement: I have reviewed and agree with the student/clinical fellow's documentation: N/A Speech Language Pathologist: Kierra Kaur M.A., CCC-[employer]
[2024-12-30] MEDS: Piperacillin Sodium/Tazobactam 3.375 GM in 0.9 % Sodium Chloride 50 ML IV (18:21)
[2024-12-30 18:40] LABS: Alkaline Phosphatase 76 U/L (39-117)
[2024-12-30] MEDS: Albuterol Sulfate (0.083%) 2.5 MG/3 ML VIAL.NEB INHALE (20:41)
[2024-12-30] MEDS: Escitalopram Oxalate 10 MG TABLET PO (20:57)
[2024-12-30] MEDS: 0.9 % Sodium Chloride Flush 3 ML SYRINGE IVFLUSH (20:58)
[2024-12-31] MEDS: Piperacillin Sodium/Tazobactam 3.375 GM in 0.9 % Sodium Chloride 50 ML IV ×3 (00:32→12:25)
[2024-12-31 03:50] VITALS: BP 105/69; PULSE 61; RESP 16; TEMP 36.6; O2SAT 97
[2024-12-31] MEDS: Lactated Ringers 1,000 ML 80 ML IVCONT (06:40)
[2024-12-31] MEDS: Omeprazole 40 MG CAPSULE.DR PO (06:41)
[2024-12-31 06:58] VITALS: BP 133/66; PULSE 60; RESP 18; TEMP 36.7; O2SAT 96
[2024-12-31 07:00] VITALS: BP 125/60; PULSE 53
[2024-12-31 07:45] VITALS: BP 132/72; BP 134/67; PULSE 62; PULSE 66
[2024-12-31 08:03] LABS: Blood Urea Nitrogen 17 mg/dL (9-16); Calcium 9.3 mg/dL (8.4-10.2); Creatinine Clr Calc Pharmacy 80.4; Estimated Glomerular Filt Rate > 60; Glucose Random 101 mg/dL (60-115)
[2024-12-31] MEDS: Atorvastatin Calcium 10 MG TABLET PO (08:10)
[2024-12-31] MEDS: predniSONE 20 MG TABLET 40 MG PO (08:10)
[2024-12-31 08:17] LABS: Anion Gap 13 (12-20); Carbon Dioxide 23 mmol/L (22-29); Chloride 103 mmol/L (96-108); Potassium 4.2 mmol/L (3.3-5.1); Sodium 135 mmol/L (135-145)
[2024-12-31] MEDS: Albuterol Sulfate (0.083%) 2.5 MG/3 ML VIAL.NEB INHALE (08:41)
[2024-12-31 08:42] VITALS: PULSE 55; RESP 18; O2SAT 97
[2024-12-31 11:00] VITALS: BP 149/70; PULSE 74; RESP 18; TEMP 36.8; O2SAT 95
--- NOTE | 2024-12-31 11:37 | P.DS_ITS ---
DS: Providers Provider Date of Service: 12/31/24 Date of admission: 12/30/24 15:16 Date of discharge: 12/31/24 Primary care physician: Robbie Kothari MD Consults: 12/30/24 15:21 Consult to Pulmonology Routine Consulting Provider: [facility] [place] [facility] Reason for consultation: h/o bronchiectasis, pneumonia Has provider been notified: No Attending physician on discharge: Ese Ferris Discharging clinician: Jo Blanchard DS: Diagnosis Discharge Diagnosis (1) Orthostatic hypotension: Status: Acute (2) Acute pain of right wrist: Status: Acute DS: Summary Hospital Course Hospital Course: From H&P on the day of admission This is an 84-year-old male with 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 Since his stroke patient has limited short-term memory and is unable to provide any significant history about what happened this morning. History is obtained from his at the bedside. She said she found him sitting on the toilet hunched over retching, he was unable to pull himself up, she laid him on the ground and called 911. There was no loss of consciousness. In the emergency department his orthostatic blood pressures were positive. He had a chest x-ray which showed concern for pneumonia. The patient denies any shortness of breath or any change in his cough. He also reported right wrist pain beginning early this morning in an x-ray of the right wrist revealed concern for pseudogout. The emergency room provider discussed the case with Orthopedic surgery who recommended oral steroids. He was also treated with IV antibiotics for pneumon ia in the decision was made to admit him to the hospital for further management. Near-syncope due to orthostatic hypotension as orthostatic BPs are positive on admission. Possibly from autonomic dysfunction due to recent stroke. Has been diagnosed with autonomic dysfunction but reportedly his blood pressure has has been better and he was no longer using his compression stockings. Patient has no vomiting or diarrhea. Was treated with gentle IV fluid overnight. Repeat orthostatic blood pressures with resolved orthostasis. Recommend to resume use of compression stockings, adequate hydration. Orthostatic precautions were discussed. Patient and aware. Pneumonia On a background of bronchiectasis and recent stroke. No elevated white blood cell count, afebrile. No significant respiratory symptoms. Patient family actually reported that his respiratory symptoms have improved with a past week or so. cxr from 12/16 without acute changes, cxr from today showing new patchy opacities in the right medial lower lung and retrocardiac regions. Was recently treated for pneumonia as well. Patient was evaluated by speech therapy and has no overt signs of aspiration, however since this is 2nd episode of pneumonia in short period of time following stroke would recommend to consider outpatient modified barium swallow. We will be discharged to complete oral course of antibiotics, can follow outpatient with pulmonology as needed. Patient has follow-up appointment with PCP next week. Blood cultures are pending at the time of discharge, no high suspicion for bacteremia. Right wrist pain likely due to Pseudogout. X-ray of the wrist showed concern for CPPD, ortho recommended against joint aspiration. Patient was started on oral antibiotics and symptoms improved significantly overnight. Patient will be discharged home on oral steroid taper Mild hyponatremia. resolved with IVF. Patient we will be discharged home to continue home PT, OT, speech therapy. He has follow up appointment scheduled with his PCP next week. Time Attestation Discharge Coordination Time (in mins): 36 Quality: Safe Use of Opioids Does Pt have an Active Cancer Diagnosis on the Problem List?: No Quality: Stroke Does the patient have a stroke diagnosis?: No Physical Exam Vital Signs: Vital Signs: Last Vital Signs Temp 98.2 F 12/31/24 11:00 Pulse 74 12/31/24 11:00 Resp 18 12/31/24 11:00 BP 149/70 H 12/31/24 11:00 Pulse Ox 95 12/31/24 11:00 O2 Del Method Room Air 12/31/24 11:00 BMI result Body Mass Index 19.1 Const: Other: alert and oriented, but forgetful General: cooperative, comfortable, no acute distress, alert and awake Nutritional Appearance: thin Resp: Effort & Inspection: normal respiratory effort, able to speak in complete sentences, no respiratory distress and no use of accessory muscles Cardio: Rate: regular rate GI: Inspection: No distended Palpation (GI): Soft to palpation and nontender Neuro: General: moves all extremities and CN's II-XI intact bilaterally Extrem: Other: right wrist erythema and tenderness and ROM substantially improved DS: Data Data Completed and Pending Labs on day of discharge: Laboratory Results - last 24 hr 12/30/24 12/30/24 12/30/24 10:53 13:50 14:01 ESR 60 H Hold Purple Top Sodium Potassium Chloride Carbon Dioxide Anion Gap BUN Creatinine Estim Creat Clear Calc Estimated GFR Random Glucose Calcium Alkaline Phosphatase 76 Urine Color Yellow Urine Appearance Clear Urine pH 7.5 Ur Specific [place] >= 1.030 H Urine Protein Negative Urine Glucose (UA) Negative Urine Ketones Negative Urine Blood Negative Urine Nitrite Negative Ur Leukocyte Esterase Negative Influenza Type A (PCR) NEGATIVE Influenza Type B (PCR) NEGATIVE RSV RNA Qual (PCR) NEGATIVE SARS-CoV-2 RNA (RT-PCR) NEGATIVE 12/31/24 07:15 ESR Hold Purple Top SEE NOTE Sodium 135 Potassium 4.2 Chloride 103 Carbon Dioxide 23 Anion Gap 13 BUN 17 H Creatinine 0.67 Estim Creat Clear Calc 80.4 Estimated GFR > 60 Random Glucose 101 Calcium 9.3 Alkaline Phosphatase Urine Color Urine Appearance Urine pH Ur Specific [place] Urine Protein Urine Glucose (UA) Urine Ketones Urine Blood Urine Nitrite Ur Leukocyte Esterase Influenza Type A (PCR) Influenza Type B (PCR) RSV RNA Qual (PCR) SARS-CoV-2 RNA (RT-PCR) Discharge Plan Discharge Anticipated Discharge Date/Time: 12/31/24 11:52 Patient Disposition: Home Health Service Discharge Diagnosis: Orthostatic hypotension Pneumonia, possible aspiration Right wrist pseudogout Hyponatremia Referrals: Robbie Kothari MD [Primary Care Provider] - 1 Week Discharge Medications: New amoxicillin-pot clavulanate 875-125 mg tablet 1 tab PO Q12H 6 Days Qty: 12 0RF prednisone 10 mg tablet See Taper PO DIRECTED Qty: 29 0RF Taper: Prednisone 40 mg daily for 2 Days and 0 Hour 30 mg daily for 3 Days and 0 Hour 20 mg daily for 3 Days and 0 Hour 10 mg daily for 3 Days and 0 Hour Rx Instructions: see taper instructions Continued escitalopram oxalate 10 mg tablet 10 mg PO BEDTIME azithromycin 500 mg tablet 500 mg PO Rx Instructions: Thursday atorvastatin 10 mg tablet 10 mg PO DAILY ([facility] [place] nebulizers [facility] [place] See Rx Instructions .ROUTE Rx Instructions: As directed albuterol sulfate 2.5 mg /3 mL (0.083 %) solution for nebulization 2.5 mg inhalation BID Qty: 180 8RF Discharge Orders: Discharge Order (Routine); Ordered 12/31/24 Ordered By: Jo Blanchard Activity on Discharge: As tolerated Stand Alone Forms: Patient Portal Discharge page Print Language: Sami Care Plan Goals: See below Health Concerns: Near syncope due to orthostatic hypotension Mild hyponatremia-resolved Pneumonia Pseudogout of right wrist Plan of Treatment: Complete course of antibiotics for pneumonia as prescribed Complete prednisone taper for pseudogout of right wrist Orthostatic precautions as discussed, compression stockings Follow-up appointment with PCP next week as scheduled No overt signs of aspiration but due to recurrent pneumonia in the setting of recent stroke would consider outpatient MBSS Assessment: See discharge summary
--- NOTE | 2024-12-31 13:22 | MHC.CM.PN ---
CM MET WITH PT, AND DAUGHTER AT BEDSIDE PT LIVES WITH HIS WHO ASSISTS IF NEEDED HE IS ACTIVE WITH [facility] FOR PT, OT, AND SN HE USES A WALKER AT [facility] COPY OF HCP REQUESTED PCP: CHELA MIRAMONTES IMM DELIVERED DCP: HOME TODAY WITH RESUMPTION OF [facility] FAMILY TO TRANSPORT
== END 2024-12-31 14:00 | disposition home health service (06) | DRG 191 ==
LOC: HO.ED 15:23 → HO.EDOVER 15:26 → HO.IMC 16:25
PROVIDERS: Admitting Provider Physician Assistant Medical; Emergency Provider Emergency Medicine Emergency Medical Services; PCP Internal Medicine Medical Oncology; Visit Provider Physician Assistant Medical
DX: J47.0 Bronchiectasis with acute lower respiratory infection (principal); E87.1 Hypo-osmolality and hyponatremia; J18.9 Pneumonia, unspecified organism; I95.1 Orthostatic hypotension; Z66 Do not resuscitate; M11.231 Other chondrocalcinosis, right wrist; E78.5 Hyperlipidemia, unspecified; F32.A Depression, unspecified; Z87.01 Personal history of pneumonia (recurrent); Z20.822 Contact with and (suspected) exposure to COVID-19; Z87.891 Personal history of nicotine dependence; Z79.899 Other long term (current) drug therapy
CPT/HCPCS: 0241U; 36415; 70496; 70498; 71045; 73100; 73130; 80048; 80053; 80061; 81003; 83605; 83690; 83735; 83880; 84153; 84484; 84550; 85025; 85652; 85730; 86140; 87040; 93005; 94640; 99285; J1271; J1650; J2270; J2405; J2543; J2919; J7120; Q9967

== ENCOUNTER → 2024-12-30 10:29 | Outpatient (BNV) | payer MEDICARE, SELFPAY | PROVIDERS: Emergency Provider Emergency Medicine Emergency Medical Services; PCP Internal Medicine Medical Oncology; Visit Provider Radiology Diagnostic Radiology | DX: M79.641 Pain in right hand (principal); R51.9 Headache, unspecified; R55 Syncope and collapse; R41.82 Altered mental status, unspecified; M25.531 Pain in right wrist | CPT/HCPCS: 70496; 70498; 71045; 73100; 73130 ==

== ENCOUNTER → 2024-12-30 10:30 | Outpatient (BNV) | payer MEDICARE, SELFPAY | PROVIDERS: Emergency Provider Emergency Medicine Emergency Medical Services; PCP Internal Medicine Medical Oncology; Visit Provider Internal Medicine Cardiovascular Disease | DX: I49.1 Atrial premature depolarization (principal) | CPT/HCPCS: 93010 ==

== ENCOUNTER → 2024-12-30 15:16 | Outpatient (BNV) | payer MEDICARE, SELFPAY | PROVIDERS: Admitting Provider Physician Assistant Medical; Emergency Provider Emergency Medicine Emergency Medical Services; PCP Internal Medicine Medical Oncology; Visit Provider Physician Assistant Medical | DX: I95.1 Orthostatic hypotension (principal); M25.531 Pain in right wrist | CPT/HCPCS: 99223; 99239 ==

== ENCOUNTER 2025-01-13 11:12 | Inpatient (IN) | payer MEDICARE, SELFPAY ==
[2025-01-13] VITALS (8 sets, daily range): BP systolic 115–135; BP diastolic 59–77; PULSE 76–89; RESP 13–23; TEMP 36.1–37.7; O2SAT 95–97; BMI 18.6; BMI 18.5
--- NOTE | ~2025-01-13 | XR_ITS ---
EXAMINATION: XR CHEST 1 VIEW HISTORY: cough COMPARISON: Comparison is made with the prior examination dated 12/30/2024. FINDINGS: A single AP portable view of the chest performed at 12:17 PM is submitted. Again seen is extensive scarring in both lungs. There are probable new small airspace opacities at the right lung apex and at the left lung base. There is no pleural effusion, pneumothorax, or pulmonary vascular congestion. The heart is normal in size. The aorta is tortuous and calcified. The bones are intact. XR/XR chest 1V IMPRESSION: Extensive bilateral lung scarring. Probable new airspace opacities at the right lung apex and at the left lung base, suspicious for pneumonia. Follow-up is recommended. Electronically signed by: Robbie Rosales MD 01/13/2025 12:28 PM EDT
--- NOTE | ~2025-01-13 | CT_ITS ---
EXAMINATION: CT HEAD WITHOUT CONTRAST CLINICAL INFORMATION: increased confusion, recent L temp hemorrhage COMPARISON: December 28, 2024 and October 27, 2024. TECHNIQUE: Contiguous axial imaging was performed from the skull base to vertex without intravenous administration of contrast. This CT examination was performed using dose optimization techniques as appropriate, variously including the following: *Automated exposure control *Adjustment of mA and/or kV according to patient size (this includes techniques or standardized protocols for targeted exams where dose is matched to indication/reason for exam; i.e. extremities or head) *Use of iterative reconstruction technique DLP: 726 mGy-cm FINDINGS: No acute intracranial hemorrhage, mass effect, midline shift, hydrocephalus or herniation. Focal encephalomalacia involving the left temporal lobe, posteriorly. Bilateral multifocal confluent deep periventricular white matter hypodensities involving centrum semiovale and sanchez radiata both hemispheres. Prominence of the extra-axial CSF spaces cerebral sulci and ventricles. Vascular calcifications involving the anterior and posterior circulation. No acute fracture in the bony calvarium. No air-fluid levels in the paranasal sinuses. Tympanic cavities and mastoid air cells are aerated. Sellar/suprasellar region demonstrated no gross masses or hemorrhage. CT/CT head/brain wo IV con IMPRESSION: No acute intracranial hemorrhage. Extensive White matter disease likely related to small vessel disease. Electronically signed by: Lázaro Ely MD 01/13/2025 12:35 PM EDT
--- NOTE | ~2025-01-13 | CT_ITS ---
CLINICAL HISTORY: Pt with hemoptysis, ?RUL and LLL pneumonia CT chest without contrast Comparison: CT/REG/NE/SR - CT CHEST WO IV CON - 11/23/23 07:28 EDT Findings: The heart size is normal. Calcification of the coronary vasculature. The visualized thyroid and mediastinum are unremarkable. There is increased multifocal ill-defined bilateral pulmonary nodular densities. Bilateral upper lobe scarring with traction bronchiectasis is present, which has progressed. The upper abdomen is unremarkable. The bones are intact. IMPRESSION: 1. Increased bilateral pulmonary opacities as described above. Differential considerations include granulomatous processes, as well as mycobacterial or fungal infection. Follow up chest CT in 3 months is recommended to exclude the less likely possibility of underlying neoplasm. 2. Coronary artery disease. This document has been electronically signed by: Richa Cerda MD on 01/13/2025 17:46:17
--- NOTE | 2025-01-13 11:17 | ED_ITS ---
HPI - General Adult General Chief complaint: Stroke Stated complaint: AMS, trouble walking, recent stroke Time Seen by Provider: 01/13/25 11:32 History of Present Illness ED Provider: Johanna MERINO narrative: The patient is an 84-year-old male with a history of bronchiectasis who presented to this hospital on October 27 with a acute confusion, headache, and some word-finding difficulty that has been done the day before. A noncontrast head CT showed a large left temporal intraparenchymal hemorrhage. He was transferred to [facility] where he was treated for a couple of weeks and discharged to a rehab facility, [facility]. He has been home for about a month with his . Two weeks ago he was briefly hospitalized at this hospital for a possible pneumonia. His brings him to the emergency room today because she feels that his functional status has deteriorated over the last week. He less able to walk. He seems more confused. He may have had a low-grade fever but she is not certain. He has had some low back pain. No injuries. The patient offers no complaints. She denies headache, chest pain, shortness of breath, abdominal pain, nausea, vomiting, diarrhea. His says that he had a scheduled outpatient EEG at [facility] 1 week ago. She does not have the results. Related Data Home Medications ?Medication ?Instructions ?Recorded ?Confirmed atorvastatin 10 mg tablet 10 mg PO DAILY 11/06/20 01/13/25 nebulizers 06/30/22 azithromycin 500 mg tablet 500 mg PO MOWEFR 12/30/24 01/13/25 Previous Rx's ?Medication ?Instructions ?Recorded albuterol sulfate 2.5 mg/3 mL 2.5 mg (3 mL) inhalation BID 01/03/25 (0.083 %) solution for nebulization shortness of breath or wheezing #180 mL Allergies Allergy/AdvReac Type Severity Reaction Status Date / Time latex [LATEX] Allergy Intermediate RASH Verified 01/13/25 11:23 Band-Aid Allergy Severe rash Uncoded 01/13/25 11:23 neosporin Allergy Severe rash Uncoded 01/13/25 11:23 Review of Systems 2 Review of Systems: Yes all other systems are reviewed and are negative [facility] Past Medical History Medical History COPD (chronic obstructive pulmonary disease) Mycobacterial disease Hernia HLD (hyperlipidemia) BPH (benign prostatic hyperplasia) Bronchiectasis Hemoptysis Pulmonary nodules Cough Abnormal chest x-ray Surgical History Hx of colonoscopy Social History Social History Household Members: Spouse Housing: House Do you presently have visiting nurse or other home services: Yes Alcohol intake: former Patient Tobacco Use Status: Former Tobacco user Tobacco use type: Cigarette Years Smoked: 20 years Smoked in Last 30 Days: No Use of substances other than those prescribed or required for medical reasons: No Currently Displaying Signs/Symptoms of Drug Intoxication Withdrawal: No Have you been hit, kicked, punched, or otherwise hurt by someone within the past year? If so, by whom?: No Do you feel safe in your current relationship?: Yes Is there a partner from a previous relationship who is making you feel unsafe now?: No Are you made to feel afraid or neglected: No Advance Directives: No (yes, not on file won't file form without date) Advance Directives Information Provided: No Advance Directives on File: No Do you have a plan to hurt others: No Plan Recently lost weight without trying: Unsure Nutrition Risks: No Nutritional Risk service: Yes Physical Exam ED Vital Signs: Vital Signs - 24 hr 01/13/25 11:19 01/13/25 12:09 01/13/25 13:34 Temperature 98.3 F 99.8 F 98.3 F Pulse Rate 82 80 Respiratory Rate 16 23 H Blood Pressure 122/72 115/69 Pulse Oximetry 97 95 Oxygen Delivery Method Room Air Room Air 01/13/25 16:12 01/13/25 16:13 Temperature 98.4 F Pulse Rate 84 89 Respiratory Rate 16 13 Blood Pressure 135/77 Pulse Oximetry 96 Oxygen Delivery Method Room Air BMI result Body Mass Index 18.6 Const Other: The patient is a slim 84-year-old male who was awake and alert. He seems somewhat confused and disoriented but not in acute pain or respiratory distress. He is very pleasant. HENMT Other: Face is symmetrical, mucous membranes moist. Eyes Other: Pupils are round equal, conjunctivae are clear, extraocular movements intact. Neck Neck: Yes normal visual inspection, Yes full ROM and Yes no JVD Resp Other: Slightly coarse air entry bilaterally. No johnny wheezes or crackles. No increased work of breathing. Cardio Rate: regular rate Rhythm: regular rhythm Heart sounds: S1 normal heart sound present and S2 normal heart sound present GI Other: Abdomen is flat, soft, nontender Skin Other: Skin is dry and unremarkable Neuro Other: The patient is awake, alert, pleasant. He is poorly oriented. He can not tell me his age or the month. No facial asymmetry. Eye movements are intact. Speech seems fairly clear. He has intact strength in his extremities. No pronator drift. Finger-nose is intact. Heel-reickson is intact. Extrem Other: No peripheral edema Course Course Course Narrative: This is an RME performed by Dorie Dexter CNP: Additional HPI, ROS, PE not included below will be deferred to primary provider. Patient is an 84-year-old male who presents emergency department for evaluation. states that he had a recent stroke,m was recovering well until the last week. Seen in this emergency department 10/27/2024 acute left temporal intraparenchymal hematoma, small subarachnoid hemorrhage in the left temporal region with mass effect upon the left temporal horn and atrium 3 mm [id number] midline shift transferred to [facility]. reports he was admitted there for 8 days followed by short term rehab d/c home 12/13/24. With the past 5-6 days he has been experiencing weakness, increasing difficulty walking particularly later in the day, but has good mornings. Increased difficulty with speech during most recent therapy session Thursday. increased confusion during overnight. Plan: Serum labs, urinalysis, viral serologies Medications Administered Generic Name Dose Route Start Last Admin Trade Name Lalitha PRN Reason Stop Dose Admin Albuterol Sulfate 2.5 mg 01/13/25 21:00 01/14/25 07:45 Albuterol Sulfate (0.083%) 2.5 Mg/3 Ml Vial.Neb INHALE 2.5 mg BID RONI Administration Atorvastatin Calcium 10 mg 01/14/25 09:00 01/14/25 08:40 Atorvastatin Calcium 10 Mg Tablet PO 10 mg DAILY RONI Administration Piperacillin Sod/Tazobactam 100 mls @ 200 mls/hr 01/13/25 23:00 01/14/25 05:53 Sod 4.5 gm/ Sodium Chloride IV Infused Q6H RONI Infusion Vancomycin HCl 750 mg/ Sodium 265 mls @ 265 mls/hr 01/14/25 06:00 01/14/25 07:17 Chloride IV Infused Q12H RONI Infusion Azithromycin 500 mg/ Sodium 250 mls @ 125 mls/hr 01/14/25 09:00 01/14/25 08:38 Chloride IV 125 mls/hr Q24H RONI Administration Sodium Chloride 3 ml 01/14/25 00:00 01/14/25 08:38 0.9 % Sodium Chloride Flush 3 Ml Syringe IVFLUSH 3 ml QSHIFT RONI Administration Discontinued Medications Generic Name Dose Route Start Last Admin Trade Name Freq PRN Reason Stop Dose Admin Albuterol/Ipratropium 3 ml 01/13/25 15:55 01/13/25 16:12 Albuterol/Iprat 2.5/0.5mg 3 Ml Ampul.Neb INHALE 01/13/25 15:56 3 ml ONCE ONE Administration Sodium Chloride 1,000 mls @ 999 mls/hr 01/13/25 13:30 01/13/25 15:07 Ns IV 01/13/25 14:30 Infused .Q1H1M RONI Infusion Piperacillin Sod/Tazobactam 100 mls @ 200 mls/hr 01/13/25 15:53 01/13/25 17:15 Sod 4.5 gm/ Sodium Chloride IV 01/13/25 16:22 Infused ONCE ONE Infusion Vancomycin HCl 1,000 mg/ 535 mls @ 267.5 mls/hr 01/13/25 15:53 01/13/25 19:30 Vancomycin HCl 750 mg/ Sodium IV 01/13/25 17:52 Infused Chloride ONCE ONE Infusion Sodium Chloride 4 ml 01/13/25 16:11 01/13/25 16:14 Sodium Chloride 3 % Inhalation 15 Ml Vial.Neb INHALE 01/13/25 16:12 4 ml ONCE ONE Administration Medical Decision Making Medical Decision Making MDM Narrative: The patient is an 84-year-old male with history of bronchiectasis who presents with cough, low-grade fevers, increasing weakness, and hemoptysis. Although the patient seems hemodynamically stable he has x-ray findings possibly consistent with new findings of airspace disease and/or pneumonia. The patient is not frankly septic but coughed up significant bloody sputum in the emergency department. This is not massive hemoptysis. Nevertheless I think hospitalization would be prudent. I contacted his rotary shear operator Dr. Minor. Patient will be started on piperacillin/ tazobactam in and vancomycin. We will send a sputum for culture. The patient was admitted to the hospitalist service. Lab Data 01/13/25 11:57 01/14/25 05:49 Labs: Lab Results 01/13/25 01/13/25 01/13/25 Range/Units 11:57 11:59 12:00 WBC 7.5 (4.8-10.8) X10*3/uL RBC 4.21 L (4.60-5.80) X10*6/uL Hgb 13.6 L (14.0-18.0) g/dl Hct 38.7 L (42.0-52.0) % MCV 91.9 (80.0-98.0) fL MCH 32.3 (27.0-33.0) pg MCHC 35.1 (31.0-36.0) g/dl RDW 13.6 (11.0-16.0) % Plt Count 219 (160-400) X10*3/uL MPV 9.7 (9.4-12.4) fL Immature Gran % (Auto) 0.4 (0.0-0.4) % Neut % (Auto) 70.4 (45-73) % Lymph % (Auto) 12.2 L (20-40) % [place] % (Auto) 14.5 H (2-11) % Eos % (Auto) 1.6 (0-4) % Baso % (Auto) 0.9 (0-2) % Lymph # (Auto) 0.9 L (1.2-4.9) X10*3/uL [place] # (Auto) 1.1 (0.1-1.2) X10*3/uL Eos # (Auto) 0.1 (0.0-0.4) X10*3/uL Baso # (Auto) 0.1 (0.0-0.2) X10*3/uL Abs Immat Gran (auto) 0.03 (0.00-0.03) X10*3/uL Absolute Neuts (auto) 5.3 (2.0-8.3) x10*3/uL Absolute Nucleated RBC 0.000 (0.0-0.012) X10*3/uL Nucleated RBC % (auto) 0.0 (0.0-0.2) /100WBC Hold Blue Top SEE NOTE Sodium 130 L (135-145) mmol/L Potassium 4.4 (3.3-5.1) mmol/L Chloride 96 (96-108) mmol/L Carbon Dioxide 24 (22-29) mmol/L Anion Gap 14 (12-20) BUN 14 (9-16) mg/dL Creatinine 0.66 (0.5-1.4) mg/dL Estim Creat Clear Calc 81.7 Estimated GFR > 60 Random Glucose 83 (60-115) mg/dL Lactic Acid (0.5-2.0) mmol/L Calcium 9.4 (8.4-10.2) mg/dL Magnesium 1.8 (1.6-2.6) mg/dL Total Bilirubin 1.0 (0.0-1.0) mg/dL Direct Bilirubin 0.3 (0.0-0.5) mg/dL AST 28 (5-37) U/L ALT 12 (0-40) U/L Alkaline Phosphatase 70 (39-117) U/L Troponin I High Sens 3.3 (<3.5-35.0) ng/L C-Reactive Protein 13.61 H (< or = 0.50) mg/dL B-Natriuretic Peptide 53 (<100) pg/mL Total Protein 7.4 (6.5-8.0) g/dL Albumin 3.6 (3.5-5.0) g/dL Procalcitonin 0.04 ng/mL Urine Color Urine Appearance Urine pH (5.0-9.0) Ur Specific [place] (1.005-1.025) Urine Protein (Neg-Trace) mg/dL Urine Glucose (UA) (Negative) mg/dL Urine Ketones (Negative) mg/dL Urine Blood (Negative) Urine Nitrite (Negative) Ur Leukocyte Esterase (Negative) Influenza Type A (PCR) NEGATIVE (Negative) Influenza Type B (PCR) NEGATIVE (Negative) RSV RNA Qual (PCR) NEGATIVE (Negative) SARS-CoV-2 RNA (RT-PCR) NEGATIVE (Negative) 01/13/25 01/13/25 Range/Units 13:59 15:05 WBC (4.8-10.8) X10*3/uL RBC (4.60-5.80) X10*6/uL Hgb (14.0-18.0) g/dl Hct (42.0-52.0) % MCV (80.0-98.0) fL MCH (27.0-33.0) pg MCHC (31.0-36.0) g/dl RDW (11.0-16.0) % Plt Count (160-400) X10*3/uL MPV (9.4-12.4) fL Immature Gran % (Auto) (0.0-0.4) % Neut % (Auto) (45-73) % Lymph % (Auto) (20-40) % [place] % (Auto) (2-11) % Eos % (Auto) (0-4) % Baso % (Auto) (0-2) % Lymph # (Auto) (1.2-4.9) X10*3/uL [place] # (Auto) (0.1-1.2) X10*3/uL Eos # (Auto) (0.0-0.4) X10*3/uL Baso # (Auto) (0.0-0.2) X10*3/uL Abs Immat Gran (auto) (0.00-0.03) X10*3/uL Absolute Neuts (auto) (2.0-8.3) x10*3/uL Absolute Nucleated RBC (0.0-0.012) X10*3/uL Nucleated RBC % (auto) (0.0-0.2) /100WBC Hold Blue Top Sodium (135-145) mmol/L Potassium (3.3-5.1) mmol/L Chloride (96-108) mmol/L Carbon Dioxide (22-29) mmol/L Anion Gap (12-20) BUN (9-16) mg/dL Creatinine (0.5-1.4) mg/dL Estim Creat Clear Calc Estimated GFR Random Glucose (60-115) mg/dL Lactic Acid 0.8 (0.5-2.0) mmol/L Calcium (8.4-10.2) mg/dL Magnesium (1.6-2.6) mg/dL Total Bilirubin (0.0-1.0) mg/dL Direct Bilirubin (0.0-0.5) mg/dL AST (5-37) U/L ALT (0-40) U/L Alkaline Phosphatase (39-117) U/L Troponin I High Sens (<3.5-35.0) ng/L C-Reactive Protein (< or = 0.50) mg/dL B-Natriuretic Peptide (<100) pg/mL Total Protein (6.5-8.0) g/dL Albumin (3.5-5.0) g/dL Procalcitonin ng/mL Urine Color Yellow Urine Appearance Clear Urine pH 6.0 (5.0-9.0) Ur Specific [place] 1.020 (1.005-1.025) Urine Protein Negative (Neg-Trace) mg/dL Urine Glucose (UA) Negative (Negative) mg/dL Urine Ketones Negative (Negative) mg/dL Urine Blood Negative (Negative) Urine Nitrite Negative (Negative) Ur Leukocyte Esterase Negative (Negative) Influenza Type A (PCR) (Negative) Influenza Type B (PCR) (Negative) RSV RNA Qual (PCR) (Negative) SARS-CoV-2 RNA (RT-PCR) (Negative) Independent Interpretation I performed an independent interpretation of an: EKG Interpretation: EKG at 1159 shows sinus rhythm with a first-degree AV block at 84 beats per minute. No definite acute ischemic changes. Discharge Plan Discharge Clinical Impression: Bronchiectasis, Hemoptysis Patient Disposition: Admitted As Inpatient Interventions: Admission Worksheet (ED) Last Done: 01/13/25 17:10 Discharge Date/Time: 01/13/25 17:53
--- NOTE | 2025-01-13 11:45 | ECG_ITS ---
Test Reason : WEAKNESS, DIFF WALKING Blood Pressure : */* mmHG Vent. Rate : 84 BPM Atrial Rate : 84 BPM P-R Int : 224 ms QRS Dur : 92 ms QT Int : 374 ms P-R-T Axes : 0 79 60 degrees QTcB Int : 441 ms Sinus rhythm with 1st degree A-V block with Fusion complexes Otherwise normal ECG When compared with ECG of 30-Dec-2024 10:42, Fusion complexes are now Present Premature supraventricular complexes are no longer Present MI interval has increased Referred By: Taras Spencer Electronically Signed By: Francis Ivory
[2025-01-13 12:05] LABS: MANUAL DIFF FLAG NO
[2025-01-13 12:11] LABS: Basophils Absolute Auto 0.1 X10*3/uL (0.0-0.2); Basophils Percent Auto 0.9 % (0-2); Eosinophils Absolute Auto 0.1 X10*3/uL (0.0-0.4); Eosinophils Percent Auto 1.6 % (0-4); Hematocrit 38.7 % (42.0-52.0); Hemoglobin 13.6 g/dl (14.0-18.0); Imm Gran Abs Auto 0.03 X10*3/uL (0.00-0.03); Imm Gran Pct Auto 0.4 % (0.0-0.4); Lymphocytes Absolute Auto 0.9 X10*3/uL (1.2-4.9); Lymphocytes Percent Auto 12.2 % (20-40); Mean Corpuscular HGB Conc 35.1 g/dl (31.0-36.0); Mean Corpuscular Hemoglobin 32.3 pg (27.0-33.0); Mean Corpuscular Volume 91.9 fL (80.0-98.0); Mean Platelet Volume 9.7 fL (9.4-12.4); Monocytes Absolute Auto 1.1 X10*3/uL (0.1-1.2); Monocytes Percent Auto 14.5 % (2-11); Neutrophils Absolute Auto 5.3 x10*3/uL (2.0-8.3); Neutrophils Percent Auto 70.4 % (45-73); Platelet Count 219 X10*3/uL (160-400); Red Blood Count 4.21 X10*6/uL (4.60-5.80); Red Cell Distribution Width 13.6 % (11.0-16.0); White Blood Count 7.5 X10*3/uL (4.8-10.8)
--- NOTE | 2025-01-13 12:13 | PC.NURSE ---
Pt did not know his but pt says this is his baseline. Previous hx of stroke. says he has been doing well at home but over the past few days he has been increasingly weak. Provider at bedside for assessment. IV established and labs drawn as ordered
[2025-01-13 12:31] LABS: Alanine Aminotransferase 12 U/L (0-40); Albumin Level 3.6 g/dL (3.5-5.0); Alkaline Phosphatase 70 U/L (39-117); Anion Gap 14 (12-20); Aspartate Amino Transferase 28 U/L (5-37); Bilirubin Direct 0.3 mg/dL (0.0-0.5); Blood Urea Nitrogen 14 mg/dL (9-16); C Reactive Protein 13.61 mg/dL (< or = 0.50); Calcium 9.4 mg/dL (8.4-10.2); Carbon Dioxide 24 mmol/L (22-29); Chloride 96 mmol/L (96-108); Creatinine Clr Calc Pharmacy 81.7; Estimated Glomerular Filt Rate > 60; Glucose Random 83 mg/dL (60-115); Magnesium 1.8 mg/dL (1.6-2.6); Potassium 4.4 mmol/L (3.3-5.1); Sodium 130 mmol/L (135-145); Total Protein 7.4 g/dL (6.5-8.0)
[2025-01-13 12:32] LABS: B Type Natriuretic Peptide 53 pg/mL (<100)
[2025-01-13 12:33] LABS: Troponin-I High Sensitivity 3.3 ng/L (<3.5-35.0)
[2025-01-13 12:45] LABS: Influenza A PCR NEGATIVE (Negative); Influenza B PCR NEGATIVE (Negative); Resp Syncy Virus RNA Qual PCR NEGATIVE (Negative); SARS COV2 PCR INHOUSE NEGATIVE (Negative)
--- OUTSIDE RECORDS SUMMARY | 2025-01-13 12:46 | XMS_ITS | Clinical Summary ---
Author Organization [facility] Address [address] [address] Phone Care Team Providers Care Director Inpatient Headache Program Name Role Phone Unavailable Primary Care Provider [...] Office Visit [facility] [address] [place] [id number] Anurag John MD [address] [id number] Health Maintenance Due Date Last Done Comments Pneumococcal Vaccine: 50+ Ye ars (1 of 2 - PCV) 02/20/1959 Influenza Vaccine (Season Ended) 2025 Hepatitis B Vaccine Aged Out No longe r eligible based on patient's age to complete [place] [id number] [facility] Medicare
--- OUTSIDE RECORDS SUMMARY | 2025-01-13 12:46 | XMS_ITS | Patient Health Record ---
Author Organization Robbie Kothari III, MD Address [address] [place] [address] Care Team Providers Care Osteopathic Neurologist Name Role Phone Robbie Kothari Primary Care Provider Allergies Allergen (clinical drug ingredient) Drug/Non Drug Allergy documented on EMR Reaction Allergy Type Onset Date Status No Known Drug Allergy Unknown Drug Allergy Active Results Component Value Reference Range Notes Hold Lt Blue - Possible Coag Reviewed date:10/30/2024 09:55:19 AM Interpretation: Performing Lab:[facility], [address] [place] [phone] Notes/Report: Hold Lt Blue - Possible Coag SEE NOTE Specimen will be held untested for 4 hours. Call Hematology if testing is desired. Comprehensive Met. Panel Reviewed date:10/30/2024 09:55:19 AM Interpretation: Performing Lab:[facility], [address] [place] [phone] Notes/Report: Sodium 131 135-145 mmol/L Potassium 4.2 [...] Magnesium Reviewed date:10/30/2024 09:55:19 AM Interpretation: Performing Lab:[facility], [address] [place] [phone] Notes/Report: Magnesium 1.5 1.6-2.6 mg/dL Troponin-I High Sensitivity Reviewed date:10/30/2024 09:55:19 AM Interpretation: Performing Lab:[facility], [address] [place] [phone] Notes/Report: Troponin-I High Sensitivity 3.1 <3.5-35.0 ng/L The Duran high sensitivity Troponin-I results should be used in conjunction with other diagnostic information such as ECG, clinical observations and information, and patient symptoms to aid in the diagnosis of [place]. SARS-CoV2/FLU/RSV Reviewed date:10/30/2024 09:55:19 AM Interpretation: Performing Lab:[facility], [address] [place] [phone] Notes/Report: Influenza A PCR NEGATIVE Negative Influenza [...] by authorized laboratories. Testing performed on the [employer] GeneXpert utilizing real-time RT-PCR. All SARS CoV2 and positive influenza A/B results are reported to [facility]. CT head for stroke Reviewed date:10/30/2024 09:55:19 AM Interpretation: Performing Lab: Notes/Report: [address] [address] [address] Scan Report Signed Patient: Freeman King MR#: [id number] [birth year] : 1940 Acct:[id number] Age/Sex: 84 / M ADM Date: 10/27/24 Loc: HO.ED Attending Dr: Ordering Physician: Alejandrina Mazariegos Date of Service: 10/27/24 Procedure(s): CT head for STROKE Accession Number(s): [id number] cc: Robbie Kothari MD; Alejandrina Mazariegos Report Number: [id number]: Total DLP = 799.00 mGy-cm EXAMINATION: CT [...] lobe. There is resultant mass effect and zhif-th-smkif midline shift of 3 mm. There is [...] atrium. 3. There is 3 mm of szph-oj-fvuyl midline shift. No impending herniation at this time. This critical result was discussed with Alejandrina Mazariegos at 12:11 PM, on 10/27/2024 via phone call. Electronically signed by: Zohaib Brown MD 10/27/2024 12:14 PM [facility] Dictated By: Zohaib Brown MD Signed By: <Electronically signed by Zohaib Brown MD in OV> 10/27/24 1214 DD/ 1148 TD/TT: 10/27/24 1156 School Clerk: [place] [address] CT Scan Report Signed Patient: Jeremiah King MR#: [id number] [birth year] : 1940 Acct:[id number] Age/Sex: 84 / M ADM Date: 10/27/24 Loc: HO.ED Attending Dr: Ordering Physician: Alejandrina Mazariegos Date of Service: 10/27/24 Procedure(s): CT hea d for STROKE Accession Number(s): [id number] cc: Robbie Kothari MD; Alejandrina Mazariegos Report [...] There is resultant m ass effect and sgtx-rs-ungge midline shift of 3 mm. There is [...] atrium. 3. There is 3 mm of shhx-tj-vhahg midline shift. No impending herniation at this time. This critical result was discussed with Alejandrina Mazariegos at 12:11 PM, on 10/27/2024 via phone call. Electronically gurpreet d by: Zohaib Brown MD 10/27/2024 12:14 PM [facility] Dictated By: Zohaib Brown MD Signed By: <Electronically signed by Zohaib Brown MD in OV> 10/27/24 1214 DD/ 1148 TD/TT: 10/27/24 1156 School Clerk: CT cervical spine wo con Reviewed date:10/30/2024 09:55:19 AM Interpretation: Performing Lab: Notes/Report: [address] [address] [address] Scan Report Signed Patient: Freeman King MR#: [id number] [birth year] : 1940 Acct:[id number] Age/Sex: 84 / M ADM Date: 10/27/24 Loc: .ED Attending Dr: Ordering Physician: Alejandrina Mazariegos Date of Service: 10/27/24 Procedure(s): CT cervical spine wo IV con Accession Number(s): [id number] cc: Robbie Kothari MD; Alejandrina Mazariegos Report Number: [id number]: Total DLP = 376.00 mGy-cm EXAMINATION: CT [...] by: Zohaib Brown MD 10/27/2024 02:23 PM [facility] Dictated By: Zohaib Brown MD Signed By: <Electronically signed by Zohaib Brown MD in OV> 10/27/24 1423 DD/ 1212 TD/TT: 10/27/24 1334 School Clerk: [place] [address] CT Scan Report Signed Patient: Jeremiah King MR#: [id number] [birth year] : 1940 Acct:[id number] Age/Sex: 84 / M ADM Date: 10/27/24 Loc: HO.ED Attending Dr: Ordering Physician: Alejandrina Mazariegos Date of Service: 10/27/24 Procedure(s): CT cer vical spine wo IV con Accession Number(s): [id number] cc: Robbie Kothari MD; Alejandrina Mazariegos Report [...] by: Zohaib Brown MD 10/27/2024 02:23 PM [facility] Dictated By: Zohaib Brown MD Signed By: <Electronically signed by Zohaib Brown MD in OV> 10/27/24 1423 DD/ 1212 TD/TT: 10/27/24 1334 School Clerk: XR chest 1V Reviewed date:10/30/2024 09:55:19 AM Interpretation: Performing Lab: Notes/Report: [address] [address] XRay Report Signed Patient: Freeman King MR#: [id number] [birth year] : 1940 Acct:[id number] Age/Sex: 84 / M ADM Date: 10/27/24 Loc: HO.ED Attending Dr: Ordering Physician: Alejandrina Mazariegos Date of Service: 10/27/24 Procedure(s): XR chest 1V Accession Number(s): [id number] cc: Robbie Kothari MD; Alejandrina Mazariegos EXAMINATION: [...] by: Zohaib Brown MD 10/27/2024 01:41 PM [facility] Dictated By: Zohaib Brown MD Signed By: <Electronically signed by Zohaib Brown MD in OV> 10/27/24 1341 DD/ 1127 TD/TT: 10/27/24 1328 School Clerk: [address] [address] XRay Report Signed Patient: Jeremiah King MR#: [id number] [birth year] : 1940 Acct:[id number] Age/Sex: 84 / M ADM Date: 10/27/24 Loc: HO.ED Attending Dr: Ordering Physician: Alejandrina Mazariegos Date of Service: 10/27/24 Procedure(s): XR chest 1V Accession Number(s): [id number] cc: Robbie Kothari MD; Alejandrina Mazariegos EXAMINATION: [...] by: Zohaib Brown MD 10/27/2024 01:41 PM [facility] Dictated By: Zohaib Brown MD Signed By: <Electronically signed by Zohaib Brown MD in OV> 10/27/24 1341 DD/ 1127 TD/TT: 10/27/24 1328 School Clerk: XR chest 2V Reviewed date:12/16/2024 03:30:40 PM Interpretation: Performing Lab: Notes/Report: [address] [address] XRay Report Signed Patient: Freeman King MR#: [id number] [birth year] : 1940 Acct:[id number] Age/Sex: 84 / M ADM Date: 12/02/24 Loc: HO.XRAY Attending Dr: Robbie Kothari MD Ordering Physician: Denilson Minor MD Date of Service: 12/02/24 Procedure(s): XR chest 2V Accession Number(s): [id number] cc: Robbie Kothari MD; Denilson Minor MD [...] 12/02/24 1150 DD/ 1042 TD/TT: 12/02/24 1052 School Clerk: [place] [address] XRay Report Signed Patient: Jeremiah King MR#: [id number] [birth year] : 1940 Acct:[id number] Age/Sex: 84 / M ADM Date: 12/02/24 Loc: HO.XRAY Attending Dr: Robbie Kothari MD Ordering Physician: Denilson Minor MD Date of Service: 12/02/24 Procedure(s): XR chest 2V Accession Number(s): [id number] cc: Robbie Kothari MD; Denilson Minor MD [...] 12/02/24 1150 DD/ 1042 TD/TT: 12/02/24 1052 School Clerk: Complete Blood Count Auto Di ff Reviewed date:12/16/2024 03:30:40 PM Interpretation: Performing Lab:[facility], [address] [place] [phone] Notes/Report: White Blood Count 5.2 4.8-10.8 X10*3/uL [...] Panel Reviewed date:12/16/2024 03:30:40 PM Interpretation: Performing Lab:[address] [phone] Notes/Report: Sodium 136 135-145 mmol/L Potassium 3.9 [...] Magnesium Reviewed date:12/16/2024 03:30:40 PM Interpretation: Performing Lab:[facility], [address] [place] [phone] Notes/Report: Magnesium 1.8 1.6-2.6 mg/dL XR chest 2V Reviewed date:12/16/2024 03:30:40 PM Interpretation: Performing Lab: Notes/Report: [address] [address] XRay Report Signed Patient: Freeman King MR#: [id number] [birth year] : 1940 Acct:[id number] Age/Sex: 84 / M ADM Date: 12/16/24 Loc: JILLIAN Attending Dr: Denilson Minor MD Ordering Physician: Denilson Minor MD Date of Service: 12/16/24 Procedure(s): XR chest 2V Accession Number(s): [id number] cc: Robbie Kothari MD; Denilson Minor MD [...] 12/16/24 1138 DD/ 1048 TD/TT: 12/16/24 1110 School Clerk: [place] [address] XRay Report Signed Patient: Jeremiah King MR#: [id number] [birth year] : 1940 Acct:[id number] Age/Sex: 84 / M ADM Date: 12/16/24 Loc: HO.XRAY Attending Dr: Denilson Minor MD Ordering Physician: Denilson Minor MD Date of Service: 12/16/24 Procedure(s): XR chest 2V Accession Number(s): [id number] cc: Robbie Kothari MD; Denilson Minor MD [...] 12/16/24 1138 DD/ 1048 TD/TT: 12/16/24 1110 School Clerk: Complete Blood Count Auto Di ff Reviewed date:12/30/2024 08:37:25 PM Interpretation: Performing Lab:[facility], [address] [place] [phone] Notes/Report: White Blood Count 6.5 4.8-10.8 X10*3/uL [...] NRBC Abs Auto 0.000 0.0-0.012 X10*3/uL Comprehensive Runge. Panel Fa Reviewed date:12/30/2024 08:37:25 PM Interpretation: Performing Lab:[facility], [address] [place] [phone] Notes/Report: Sodium 135 135-145 mmol/L Potassium 4.2 [...] Alkaline Phosphatase 82 39-117 U/L Lipid Panel Reviewed date:12/30/2024 08:37:25 PM Interpretation: Performing Lab:[facility], [address] [place] [phone] Notes/Report: Triglycerides 84 <150 mg/dL Desirable Triglyceride: [...] patients with liver disease. Prostate Specific Antigen Reviewed date:12/30/2024 08:37:25 PM Interpretation: Performing Lab:[facility], [address] [place] [phone] Notes/Report: Prostate Specific Antigen 2.95 <0.05-4.0 ng/mL PSA methodology: Duran Alinity i Chemiluminescent Microparticle Immunoassay (CMIA) Blood Culture (First) (Not y et reviewed by provider) Interpretation: Performing Lab:[facility], [address] [place] [phone] Notes/Report: Blood Culture (First) No growth after 5 days. Blood Culture (Second) (Not yet reviewed by provider) Interpretation: Performing Lab:[facility], [address] [place] [phone] Notes/Report: Blood Culture (Second) No growth after 5 days. Complete Blood Count Auto Di ff Reviewed date:12/30/2024 08:37:25 PM Interpretation: Performing Lab:[facility], [address] [place] [phone] Notes/Report: White Blood Count 9.1 4.8-10.8 X10*3/uL [...] X10*3/uL NRBC Abs Auto 0.000 0.0-0.012 X10*3/uL Erythrocyte Sedimentation Ra te Reviewed date:12/30/2024 08:37:25 PM Interpretation: Performing Lab:[address] [phone] Notes/Report: Erythrocyte Sedimentation Rate 60 0-15 MM/HR Patients with polycythemia and many hemoglobin abnormalities may have depressed sed rates whereas patients with anemia may have elevated sed rates. Partial Thromboplastin Time Reviewed date:12/30/2024 08:37:25 PM Interpretation: Performing Lab:[address] [phone] Notes/Report: Partial Thromboplastin Time 33.0 26.0-36.8 SEC For information regarding the monitoring of direct thrombin inhibitors, please refer to Pharmacy. Comprehensive Met. Panel Reviewed date:12/30/2024 08:37:25 PM Interpretation: Performing Lab:[address] [phone] Notes/Report: Sodium 132 135-145 mmol/L Potassium 4.9 3.3-5.1 mmol/L Slight Hemolysis.Interpret result with caution. Chloride 96 96-108 mmol/L Carbon Dioxide 28 22-29 mmol/L Anion Gap 13 12-20 Blood Urea Nitrogen 16 9-16 mg/dL Creatinine 0.71 0.5-1.4 mg/dL Creatinine Clr Calc Pharmacy 75.9 eGFR (calculated from the MDRD study equation) and eCrCl (calculated from the Cockcroft-Gault equation) are based on different parameters and may not yield comparable results. If eCrCl result is absurd, please check patient's height/weight. Estimated Glomerular Filt Rate > 60 Chronic Kidney Disease: Estimated GFR < 60 mL/min/1.73m2 Severe Kidney Disease: Estimated GFR < 15 mL/min/1.73m2 Glucose Random 91 60-115 mg/dL Calcium 9.8 8.4-10.2 mg/dL Bilirubin Total 0.8 0.0-1.0 mg/dL Aspartate Amino Transferase 38 5-37 U/L Slight Hemolysis.Interpret result with caution. Alanine Aminotransferase 22 0-40 U/L Total Protein 8.2 6.5-8.0 g/dL Albumin Level 3.8 3.5-5.0 g/dL Alkaline Phosphatase 76 39-117 U/L Lactic Acid Reviewed date:12/30/2024 08:37:25 PM Interpretation: Performing Lab:[facility], [address] [place] [phone] Notes/Report: Lactic Acid 1.0 0.5-2.0 mmol/L Uric Acid Reviewed date:12/30/2024 08:37:25 PM Interpretation: Performing Lab:[facility], [address] [place] [phone] Notes/Report: Uric Acid 4.1 3.4-7.0 mg/dL Magnesium Reviewed date:12/30/2024 08:37:25 PM Interpretation: Performing Lab:[facility], [address] [place] [phone] Notes/Report: Magnesium 1.7 1.6-2.6 mg/dL Troponin-I High Sensitivity Reviewed date:12/30/2024 08:37:25 PM Interpretation: Performing Lab:[facility], [address] [place] [phone] Notes/Report: Troponin-I High Sensitivity 3.4 <3.5-35.0 ng/L The Duran high sensitivity Troponin-I results should be used in conjunction with other diagnostic information such as ECG, clinical observations and information, and patient symptoms to aid in the diagnosis of [place]. C Reactive Protein Reviewed date:12/30/2024 08:37:25 PM Interpretation: Performing Lab:[facility], [address] [place] [phone] Notes/Report: C Reactive Protein 4.85 < or = 0.50 mg/dL B Type Natriuretic Peptide Reviewed date:12/30/2024 08:37:25 PM Interpretation: Performing Lab:[facility], [address] [place] [phone] Notes/Report: B Type Natriuretic Peptide 82 <100 pg/mL Lipase Reviewed date:12/30/2024 08:37:25 PM Interpretation: Performing Lab:[facility], [address] [place] [phone] Notes/Report: Lipase 43 8-78 U/L UA CC w/rflx Micro + Cult Reviewed date:12/30/2024 08:37:25 PM Interpretation: Performing Lab:[address] [phone] Notes/Report: Urine, Clean Catch Color Urine Yellow Appearance Urine Clear PH 7.5 5.0-9.0 Glucose Urine UA Negative Negative mg/dL Urine Blood Negative Negative Specific Doland - Urine >= 1.030 1.005-1.025 Urine Protein Negative Neg-Trace mg/dL Urine Ketones Negative Negative mg/dL Nitrite Urine Negative Negative Leukocyte Esterase Urine Negative Negative SARS-CoV2/FLU/RSV Reviewed date:12/30/2024 08:37:25 PM Interpretation: Performing Lab:[address] [phone] Notes/Report: Influenza A PCR NEGATIVE Negative Influenza [...] by authorized laboratories. Testing performed on the [employer] GeneXpert utilizing real-time RT-PCR. All SARS CoV2 and positive influenza A/B results are reported to [facility]. CT angio head neck Reviewed date:12/30/2024 08:37:25 PM Interpretation: Performing Lab: Notes/Report: [address] [address] [address] Scan Report Signed Patient: Freeman King MR#: [id number] [birth year] : 1940 Acct:[id number] Age/Sex: 84 / M ADM Date: 12/30/24 Loc: HO.ED Attending Dr: Ordering Physician: Rahul Zamora MD Date of Service: 12/30/24 Procedure(s): CT angio head neck Accession Number(s): [id number] cc: Robbie Kothari MD; Rahul Zamora MD Report Number: [id number]: Total DLP = 1652.00 mGy-cm EXAMINATION: CTA NECK WITH CONTRAST (STROKE) CTA BRAIN WITH CONTRAST (STROKE) CLINICAL INFORMATION: Headache. Syncope. COMPARISON: Correlated to CT dated October 27, 2024 demonstrated a 7 cm intraparenchymal hematoma, left temporal. TECHNIQUE: CTA of the head and neck was performed in the axial plane from the mediastinum to the skull vertex using 70 mL Omnipaque 350 intravenous contrast. Additional reformatted multiplanar images including maximum intensity projection MIP images are generated on the CT workstation. This CT examination was performed using dose optimization techniques as appropriate, variously including the following: *Automated exposure control *Adjustment of mA and/or kV according to patient size (this includes techniques or standardized protocols for targeted exams where dose is matched to indication/reason for exam; i.e. extremities or head) *Use of iterative reconstruction technique Total DLP: 1652 mGy centimeter. FINDINGS: The degree of stenosis determined by criteria similar to NASCET. Brain: No acute intracranial hemorrhage. Bilateral multifocal patchy and confluent deep periventricular white matter hypodensities involving centrum semiovale and sanchez radiata. Calcified plaques in a prominent engorged cavernous supraclinoid segments of the ICAs and the V3 segment left vertebral artery. No acute fracture, bony calvarium. No air-fluid levels in the paranasal sinuses. Tympanic cavities and mastoid cells are aerated. Edentulous. Chest CTA: Thoracic aorta is patent without focal stenosis or intimal flap or abnormal diameter. Calcified plaques. Neck CTA: Right CCA: Normal patency. No focal stenosis. No intimal flap. Right ICA: Focal calcification. Normal patency. No focal stenosis. No intimal flap. Left CCA: Normal patency. No focal stenosis. No intimal flap. Left ICA: Focal calcification. Normal patency. No focal stenosis. No intimal flap. V1/V2 segments: Normal patency. No focal stenosis. No intimal flap. Left vertebral artery is dominant. The origin is directly from the subclavian arteries bilaterally. Brain CTA: Anterior cerebral circulation: ICAs: Calcified plaques in the cavernous supraclinoid segments. Prominent engorged arteries. No focal stenosis. No abrupt cut off. MCA's: Normal patency. No focal stenosis. No abrupt cut off. Bifurcation/trifurcation demonstrated normal vascular irregularity. ACAs: Normal patency. No focal stenosis. No abrupt cut off. Ophthalmic arteries are patent without vascular irregularity at the origin. Anterior communicating artery is patent. Right posterior communicating artery is patent and robust. Left anterior communicating artery is small. Posterior cerebral circulation: V3/V4 segments: Focal calcifications. No focal stenosis. No intimal flap. The posterior inferior cerebral arteries are patent. Basilar artery is patent without focal stenosis or intimal flap. Superior cerebellar arteries are patent. director of public works: Right P1 segment: Hypoplastic/atretic. No focal stenosis. No abrupt cut off. Ancillary findings: Main cerebral venous sinuses are patent. The left jugular foramen left sigmoid and transverse sinuses is dominant. Nodularity is seen in the endobronchial trachea mainstem bronchus. Multiple saccular bronchiectasis with peribronchial and interlobular septal thickening and likely a small less than 2 cm cavitary lesion and right upper lung lobe.. CT/CT angio head neck IMPRESSION: No acute intracranial hemorrhage. Resolved intracranial hemorrhage. No main cerebral artery occlusion or embolus. No cerebral aneurysm. No dissection. No high degree stenosis. Questionable acute on chronic airspace disease. Recommend bronchoscopy for better evaluation of the endotracheal nodularity. This critical test result is communicated to: Emergency physician Dr. Rahul Zamora on December 30, 2024 at 12:05 PM Electronically signed by: Lázaro Ely MD 12/30/2024 12:25 PM EDT RP Dictated By: Lázaro Elias MD Signed By: <Electronically signed by Lázaro Monique MD in OV> 12/30/24 1225 DD/ 1133 TD/TT: 12/30/24 1155 School Clerk: [address] [address] [address] Scan Report Signed Patient: Jeremiah King MR#: [id number] [birth year] : 1940 Acct:[id number] Age/Sex: 84 / M ADM Date: 12/30/24 Loc: HO.ED Attending Dr: Ordering Physician: Rahul Zamora MD Date of Service: 12/30/24 Procedure(s): CT ang io head neck Accession Number(s): [id number] cc: Robbie Kothari MD; Rahul Zamora MD Report Number: [id number]: Total DLP = 1652.00 mGy-cm EXAMINATION: CTA NECK WITH CONTRA ST (STROKE) CTA BRAIN WITH CONTR AST (STROKE) CLINICAL INFORMATION: Headache. Syncope. COMPARISON: Correlated to CT estela ed October 27, 2024 demonstrated a 7 cm intraparenchymal hematoma, left temporal. TECHNIQUE: CTA of the head and neck was performed in the axial plane from the mediastinum to the s kull vertex using 70 mL Omnipaque 350 intravenous contrast. Additional reformatted multiplanar images including maximum intensity projection MIP images are generated on the CT workstation. This CT examination was performed using dose optimization techniques as appropriate, various ly including the following: *Automated exposure control *Adjustment of mA an d/or kV according to patient size (this includes techniques or standardized protocols for targeted exams where dose is matched to indication/reason for exam; i.e. extremities or head) *Use of iterative reconstruction technique Total DLP: 1652 mGy centimeter. FINDINGS: The degree of stenos is determined by criteria similar to NASCET. Brain: No acute intracrania l hemorrhage. Bilateral multifocal patchy and confluent deep periventricular white matter hypodensities involving centrum semiovale and sanchez radiata. Calcified plaques in a prominent engorged cavernous supraclinoid segments of the ICAs and the V3 segment left vertebral artery. No acute fracture, b davey calvarium. No air-fluid levels in the paranasal sinuses. Tympanic cavities and mastoid cells are aerated. Edentulous. Chest CTA: Thoracic aorta is pa tent without focal stenosis or intimal flap or abnormal diameter. Calcified plaques. Neck CTA: Right CCA: Normal patency. No f ocal stenosis. No intimal flap. Right ICA: Focal calcification. Normal patency. No focal stenosis. No intimal flap. Left CCA: Normal patency. No f ocal stenosis. No intimal flap. Left ICA: Focal calcification. Normal patency. No f ocal stenosis. No intimal flap. V1/V2 segments: Normal patency. No f ocal stenosis. No intimal flap. Left vertebral arter y is dominant. The origin is direct ly from the subclavian arteries bilaterally. Brain CTA: Anterior cerebral circulation: ICAs: Calcified plaques in the cavernous supraclinoid segments. Prominent engorged arteries. N o focal stenosis. No abrupt cut off. MCA's: Normal patency. No f ocal stenosis. No abrupt cut off. Bifurcation/trifurca tion demonstrated normal vascular irregularity. ACAs: Normal patency. No focal stenosis. N o abrupt cut off. Ophthalmic arteries are patent without vascular irregularity at the origin. Anterior communicati ng artery is patent. Right posterior communicating artery is patent and robust. Left anterior communicating artery is small. Posterior cerebral circulation: V3/V4 segments: Focal calcifications . No focal stenosis. No intimal flap. The posterior inferi or cerebral arteries are patent. Basilar artery is pa tent without focal stenosis or intimal flap. Superior cerebellar arteries are patent. director of public works: Right P1 segment: Hypoplastic/atretic. No focal stenosis. N o abrupt cut off. Ancillary findings: Main cerebral venous sinuses are patent. The left jugular foramen left sigmoid and transver se sinuses is dominant. Nodularity is seen i n the endobronchial trachea mainstem bronchus. Multiple saccular bronchiectasis with peribronchial and interlobular septal thickening an d likely a small less than 2 cm cavitary lesion and right upper lung lobe.. C T/CT angio head neck IMPRESSION: No acute intracrania l hemorrhage. Resolved intracrania l hemorrhage. No main cerebral art joanna occlusion or embolus. No cerebral aneurysm. No dissection. No high degree stenosis. Questionable acute o n chronic airspace disease. Recommend bronchoscopy for better evaluatio n of the endotracheal nodularity. This critical test r esult is communicated to: Emergency physician Dr. Rahul Zamora on December 30, 2024 at 12:05 PM Electronically gurpreet d by: Lázaro Ely MD 12/30/2024 12:25 PM EDT RP Dictated By: Lázaro Garcia MD Signed By: <Electronically signed by Láazro Monique MD in OV> 12/30/24 1225 DD/ 1133 TD/TT: 12/30/24 1155 School Clerk: XR wrist RT 2V Reviewed date:12/30/2024 08:37:25 PM Interpretation: Performing Lab: Notes/Report: [address] [address] XRay Report Signed Patient: Freeman King MR#: [id number] [birth year] : 1940 Acct:[id number] Age/Sex: 84 / M ADM Date: 12/30/24 Loc: .ED Attending Dr: Ordering Physician: Rahul Zamora MD Date of Service: 12/30/24 Procedure(s): XR wrist RT 2V Accession Number(s): [id number] cc: Robbie Kothari MD; Rahul Zamora MD EXAMINATION: XR WRIST, RIGHT CLINICAL INFORMATION: Right hand and wrist pain with swelling R/O fractu COMPARISON: None available. TECHNIQUE: PA, lateral, and oblique views of the right wrist. FINDINGS: Osteopenia versus osteoporosis. 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 No acute cortical disruption or malalignment. No subcutaneous emphysema.. XR/XR wrist RT 2V IMPRESSION: Degenerative changes. CPPD should be considered. No acute fracture or dislocation. Electronically signed by: Lázaro Ely MD 12/30/2024 01:00 PM EDT RP Dictated By: Lázaro Elias MD Signed By: <Electronically signed by Lázaro Monique MD in [place]> 12/30/24 1300 DD/ 1243 TD/TT: 12/30/24 1255 School Clerk: [address] [address] XRay Report Signed Patient: Jeremiah King MR#: [id number] [birth year] : 1940 Acct:[id number] Age/Sex: 84 / M ADM Date: 12/30/24 Loc: HO.ED Attending Dr: Ordering Physician: Rahul Zamora MD Date of Service: 12/30/24 Procedure(s): XR wri st RT 2V Accession Number(s): [id number] cc: Robbie Kothari MD; Rahul Zamora MD EXAMINATION: XR WRIST, RIGHT CLINICAL INFORMATION: Right hand and wrist pain with swelling R/O fractu COMPARISON: None available. TECHNIQUE: PA, lateral, and obl ique views of the right wrist. FINDINGS: Osteopenia versus osteoporosis. 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 No acut e cortical disruption or malalignment. No subcutaneous emphysema.. X R/XR wrist RT 2V IMPRESSION: Degenerative changes . CPPD should be considered. No acute fracture or dislocation. Electronically gurpreet d by: Lázaro Ely MD 12/30/2024 01:00 PM EDT RP Dictated By: Lázaro Garcia MD Signed By: <Electronically signed by Lázaro Monique MD in [place]> 12/30/24 1300 DD/ 1243 TD/TT: 12/30/24 1255 School Clerk: XR chest 1V Reviewed date:12/30/2024 08:37:25 PM Interpretation: Performing Lab: Notes/Report: [place] [address] XRay Report Signed Patient: Freeman King MR#: [id number] [birth year] : 1940 Acct:[id number] Age/Sex: 84 / M ADM Date: 12/30/24 Loc: .ED Attending Dr: Ordering Physician: Rahul Zamora MD Date of Service: 12/30/24 Procedure(s): XR chest 1V Accession Number(s): [id number] cc: Robbie Kothari MD; Rahul Zamora MD EXAMINATION: XR CHEST CLINICAL INFORMATION: Cough, near-syncope, R/O pneumonia COMPARISON: Several priors, dating back to 10/27/2024. TECHNIQUE: Frontal view of the chest was obtained. FINDINGS: Cardiac size is normal. Lungs demonstrate hyperaeration, chronic scarring and bronchiectasis in the right upper lobe distribution, as well as the left midlung. There are new patchy opacities in the right lower lung medially. New foci in the retrocardiac region as well. No pneumothorax or effusion. No focal osseous or soft tissue abnormalities. XR/XR chest 1V IMPRESSION: 1. Compared with prior exams, new patchy opacities in the right medial lower lung, and retrocardiac region suspect for new infectious/inflammatory disease. 2. Chronic bronchiectasis, COPD, and reticular opacities in the right upper lobe and left midlung, similar to priors. Electronically signed by: Zohaib Brown MD 12/30/2024 12:10 PM EDT RP Dictated By: Zohaib Brown MD Signed By: <Electronically signed by Zohaib Brown MD in OV> 12/30/24 1210 DD/ 1031 TD/TT: 12/30/24 1149 School Clerk: [place] [address] XRay Report Signed Patient: Jeremiah King MR#: [id number] [birth year] : 1940 Acct:[id number] Age/Sex: 84 / M ADM Date: 12/30/24 Loc: .ED Attending Dr: Ordering Physician: Rahul Zamora MD Date of Service: 12/30/24 Procedure(s): XR chest 1V Accession Number(s): [id number] cc: Robbie Kothari MD; Rahul Zamora MD EXAMINATION: XR CHEST CLINICAL INFORMATION: Cough, near-syncope, R/O pneumonia COMPARISON: Several priors, dati ng back to 10/27/2024. TECHNIQUE: Frontal view of the chest was obtained. FINDINGS: Cardiac size is normal. Lungs demonstrate hyperaeration, chronic scarring and bronchiectasis in the right upper lobe distribution, as well as the left midlung. There are new patchy opacities in the right lower lung medially. New foci in the retrocar diac region as well. No pneumothorax or effusion. No focal osseous or soft tissue abnormalities. X R/XR chest 1V IMPRESSION: 1. Compared with mayela or exams, new patchy opacities in the right medial lower lung, and retrocardiac region suspect for new infectious/inflammat ory disease. 2. Chronic bronchiectasis, COPD, and reticular opacities in the right upper lobe and left midlung, similar to priors. Electronically gurpreet d by: Zohaib Brown MD 12/30/2024 12:10 PM EDT RP Dictated By: Zohaib Brown MD Signed By: <Electronically signed by Zohaib Brown MD in [place]> 12/30/24 1210 DD/ 1031 TD/TT: 12/30/24 1149 School Clerk: XR hand RT min 3V Reviewed date:12/30/2024 08:37:25 PM Interpretation: Performing Lab: Notes/Report: [place] [address] XRay Report Signed Patient: Freeman King MR#: [id number] [birth year] : 1940 Acct:[id number] Age/Sex: 84 / M ADM Date: 12/30/24 Loc: HO.ED Attending Dr: Ordering Physician: Rahul Zamora MD Date of Service: 12/30/24 Procedure(s): XR hand RT min 3V Accession Number(s): [id number] cc: Robbie Kothari MD; Rahul Zamora MD EXAMINATION: XR HAND, RIGHT CLINICAL INFORMATION: Right hand and wrist pain with swelling R/O fractu COMPARISON: None available. TECHNIQUE: PA, lateral, and oblique views of the right hand. FINDINGS: Osteopenia versus osteoporosis. No acute cortical disruption or malalignment. No subcutaneous emphysema. Subtle chondrocalcinosis in the radiocarpal ulnar joint. No metallic or radiopaque foreign body. No osteolysis. XR/XR hand RT min 3V IMPRESSION: No acute fracture or dislocation. Consider CPPD. Electronically signed by: Lázaro Ely MD 12/30/2024 01:01 PM EDT RP Dictated By: Lázaro Elias MD Signed By: <Electronically signed by Lázaro Monique MD in [place]> 12/30/24 1301 DD/ 1243 TD/TT: 12/30/24 1255 School Clerk: [address] [address] XRay Report Signed Patient: Jeremiah King MR#: [id number] [birth year] : 1940 Acct:[id number] Age/Sex: 84 / M ADM Date: 12/30/24 Loc: HO.ED Attending Dr: Ordering Physician: Rahul Zamora MD Date of Service: 12/30/24 Procedure(s): XR camacho d RT min 3V Accession Number(s): [id number] cc: Robbie Kothari MD; Rahul Zamora MD EXAMINATION: XR HAND, RIGHT CLINICAL INFORMATION: Right hand and wrist pain with swelling R/O fractu COMPARISON: None available. TECHNIQUE: PA, lateral, and obl ique views of the right hand. FINDINGS: Osteopenia versus osteoporosis. No acute cortical disruption or malalignment. No subcutaneous emphysema. Subtle chondrocalcinosis in the radiocarpal ulna r joint. No metallic or radiopaque foreign body. No osteolysis. X R/XR hand RT min 3V IMPRESSION: No acute fracture or dislocation. Consider CPPD. Electronically gurpreet d by: Lázaro Ely MD 12/30/2024 01:01 PM EDT RP Dictated By: Lázaro Bland MD Signed By: <Electronically signed by Lázaro Monique MD in [place]> 12/30/24 1301 DD/ 1243 TD/TT: 12/30/24 1255 School Clerk: Renae Mojica - Possible Hematolo gy Reviewed date:01/01/2025 10:45:53 AM Interpretation: Performing Lab:[facility], [address] [place] [phone] Notes/Report: Hold Lav - Possible Hematology SEE NOTE Specimen will be held untested for 8 hours. Call Hematology if testing is desired. Basic Metabolic Panel Reviewed date:01/01/2025 10:45:53 AM Interpretation: Performing Lab:[facility], [address] [place] [phone] Notes/Report: Sodium 135 135-145 mmol/L Potassium 4.2 3.3-5.1 mmol/L Chloride 103 96-108 mmol/L Carbon Dioxide 23 22-29 mmol/L Anion Gap 13 12-20 Blood Urea Nitrogen 17 9-16 mg/dL Creatinine 0.67 0.5-1.4 mg/dL Creatinine Clr Calc Pharmacy 80.4 eGFR (calculated from the MDRD study equation) and eCrCl (calculated from the Cockcroft-Gault equation) are based on different parameters and may not yield comparable results. If eCrCl result is absurd, please check patient's height/weight. Estimated Glomerular Filt Rate > 60 Chronic Kidney Disease: Estimated GFR < 60 mL/min/1.73m2 Severe Kidney Disease: Estimated GFR < 15 mL/min/1.73m2 Glucose Random 101 60-115 mg/dL Calcium 9.3 8.4-10.2 mg/dL Complete Blood Count Auto Di ff (Not yet reviewed by provider) Interpretation: Performing Lab:[facility], [address] [place] [phone] Notes/Report: White Blood Count 7.5 4.8-10.8 X10*3/uL Red Blood Count 4.21 4.60-5.80 X10*6/uL Hemoglobin 13.6 14.0-18.0 g/dl Hematocrit 38.7 42.0-52.0 % Mean Corpuscular Volume 91.9 80.0-98.0 fL Mean Corpuscular Hemoglobin 32.3 27.0-33.0 pg Mean Corpuscular HGB Conc 35.1 31.0-36.0 g/dl Red Cell Distribution Width 13.6 11.0-16.0 % Platelet Count 219 160-400 X10*3/uL Mean Platelet Volume 9.7 9.4-12.4 fL Neutrophils Percent Auto 70.4 45-73 % Imm Gran Pct Auto 0.4 0.0-0.4 % Lymphocytes Percent Auto 12.2 20-40 % Monocytes Percent Auto 14.5 2-11 % Eosinophils Percent Auto 1.6 0-4 % Basophils Percent Auto 0.9 0-2 % NRBC Pct Auto 0.0 0.0-0.2 /100WBC Neutrophils Absolute Auto 5.3 2.0-8.3 x10*3/u L Imm Gran Abs Auto 0.03 0.00-0.03 X10*3/uL Lymphocytes Absolute Auto 0.9 1.2-4.9 X10*3/u L Monocytes Absolute Auto 1.1 0.1-1.2 X10*3/uL Eosinophils Absolute Auto 0.1 0.0-0.4 X10*3/u L Basophils Absolute Auto 0.1 0.0-0.2 X10*3/uL NRBC Abs Auto 0.000 0.0-0.012 X10*3/uL Hold Lt Blue - Possible Coag (Not yet reviewed by provider) Interpretation: Performing Lab:[facility], [address] [place] [phone] Notes/Report: Hold Lt Blue - Possible Coag SEE NOTE Specimen will be held untested for 4 hours. Call Hematology if testing is desired. Liver Panel (Not yet reviewe d by provider) Interpretation: Performing Lab:[facility], [address] [place] [phone] Notes/Report: Bilirubin Total 1.0 0.0-1.0 mg/dL Bilirubin Direct 0.3 0.0-0.5 mg/dL Aspartate Amino Transferase 28 5-37 U/L Slight Hemolysis.Interpret result with caution. Alanine Aminotransferase 12 0-40 U/L Total Protein 7.4 6.5-8.0 g/dL Albumin Level 3.6 3.5-5.0 g/dL Alkaline Phosphatase 70 39-117 U/L Basic Metabolic Panel (Not y et reviewed by provider) Interpretation: Performing Lab:[address] [address] Notes/Report: Sodium 130 135-145 mmol/L Potassium 4.4 3.3-5.1 mmol/L Slight Hemolysis.Interpret result with caution. Chloride 96 96-108 mmol/L Carbon Dioxide 24 22-29 mmol/L Anion Gap 14 12-20 Blood Urea Nitrogen 14 9-16 mg/dL Creatinine 0.66 0.5-1.4 mg/dL Creatinine Clr Calc Pharmacy 81.7 eGFR (calculated from the MDRD study equation) and eCrCl (calculated from the Cockcroft-Gault equation) are based on different parameters and may not yield comparable results. If eCrCl result is absurd, please check patient's height/weight. Estimated Glomerular Filt Rate > 60 Chronic Kidney Disease: Estimated GFR < 60 mL/min/1.73m2 Severe Kidney Disease: Estimated GFR < 15 mL/min/1.73m2 Glucose Random 83 60-115 mg/dL Calcium 9.4 8.4-10.2 mg/dL Magnesium (Not yet reviewed by provider) Interpretation: Performing Lab:[address] [phone] Notes/Report: Magnesium 1.8 1.6-2.6 mg/dL Troponin-I High Sensitivity (Not yet reviewed by provider) Interpretation: Performing Lab:[address] [address] Notes/Report: Troponin-I High Sensitivity 3.3 <3.5-35.0 ng/L The Duran high sensitivity Troponin-I results should be used in conjunction with other diagnostic information such as ECG, clinical observations and information, and patient symptoms to aid in the diagnosis of IN. C Reactive Protein (Not yet reviewed by provider) Interpretation: Performing Lab:[address] [address] Notes/Report: C Reactive Protein 13.61 < or = 0.50 mg/dL B Type Natriuretic Peptide ( Not yet reviewed by provider) Interpretation: Performing Lab:[address] [address] Notes/Report: B Type Natriuretic Peptide 53 <100 pg/mL CT head/brain wo con (Not ye t reviewed by provider) Interpretation: Performing Lab: Notes/Report: [address] [place] [address] CT Scan Report Signed Patient: Freeman King MR#: [id number] [birth year] : 1940 Acct:[id number] Age/Sex: 84 / M ADM Date: 01/13/25 Loc: .ED Attending Dr: Ordering Physician: Taras Spencer MD Date of Service: 01/13/25 Procedure(s): CT head/brain wo IV con Accession Number(s): [id number] cc: Robbie Kothari MD; Taras Spencer MD Report Number: [id number]: Total DLP = 726.00 mGy-cm EXAMINATION: CT HEAD WITHOUT CONTRAST CLINICAL INFORMATION: increased confusion, recent L temp hemorrhage COMPARISON: December 28, 2024 and October 27, 2024. TECHNIQUE: Contiguous axial imaging was performed from [...] or head) *Use of iterative reconstruction technique DLP: 726 mGy-cm FINDINGS: No acute intracranial hemorrhage, mass effect, midline shift, hydrocephalus or herniation. Focal encephalomalacia involving the left temporal lobe, posteriorly. Bilateral multifocal confluent deep periventricular white matter hypodensities involving centrum semiovale and sanchez radiata both hemispheres. Prominence of the extra-axial CSF spaces cerebral sulci and ventricles. Vascular calcifications involving the anterior and posterior circulation. No acute fracture in the bony calvarium. No air-fluid levels in the paranasal sinuses. Tympanic cavities and mastoid air cells are aerated. Sellar/suprasellar region demonstrated no gross masses or hemorrhage. CT/CT head/brain wo IV con IMPRESSION: No acute intracranial hemorrhage. Extensive White matter disease likely related to small vessel disease. Electronically signed by: Lázaro Ely MD 01/13/2025 12:35 PM EDT Dictated By: Lázaro Elias MD Signed By: <Electronically signed by Lázaro Monique MD in OV> 01/13/25 1235 DD/ 1215 TD/TT: 01/13/25 1226 School Clerk: [address] [address] [address] Scan Report Signed Patient: Jeremiah King MR#: [id number] [birth year] : 1940 Acct:[id number] Age/Sex: 84 / M ADM Date: 01/13/25 Loc: HO.ED Attending Dr: Ordering Physician: Taras Spencer MD Date of Service: 01/13/25 Procedure(s): CT head/brain wo IV con Accession Number(s): [id number] cc: Robbie Kothari MD; Taras Spencer MD Report Number: [id number]: Total DLP = 726.00 mGy-cm EXAMINATION: CT HEAD WITHOUT CONTRAST CLINICAL INFORMATION: increased confusion, recent L temp hemorrhage COMPARISON: December 28, 2024 and October 27, 2024. TECHNIQUE: Contiguous axial rajan ging was performed [...] or head) *Use of iterative reconstruction technique DLP: 726 mGy-cm FINDINGS: No acute intracrania l hemorrhage, mass effect, midline shift, hydrocephalus or herniation. Focal encephalomalac ia involving the left temporal lobe, posteriorly. Bilateral multifocal confluent deep periventricular white matter hypodensities involv ing centrum semiovale and sanchez radiata both hemispheres. Prominence of the extra-axial CSF spaces cerebral sulci and ventricles. Vascular calcificati ons involving the anterior and posterior circulation. No acute fracture in the bony calvarium. No air-fluid levels in the paranasal sinuses. Tympanic cavities and mastoid air cells ar e aerated. Sellar/suprasellar r egion demonstrated no gross masses or hemorrhage. C T/CT head/brain wo IV con IMPRESSION: No acute intracrania l hemorrhage. Extensive White shea er disease likely related to small vessel disease. Electronically gurpreet d by: Lázaro Ely MD 01/13/2025 12:35 PM EDT RP Dictated By: Lázaro Garcia MD Signed By: <Electronically signed by Lázaro Monique MD in OV> 01/13/25 1235 DD/ 1215 TD/TT: 01/13/25 1226 School Clerk: XR chest 1V (Not yet reviewe d by provider) Interpretation: Performing Lab: Notes/Report: [address] [address] XRay Report Signed Patient: Freeman King MR#: [id number] [birth year] : 1940 Acct:[id number] Age/Sex: 84 / M ADM Date: 01/13/25 Loc: HO.ED Attending Dr: Ordering Physician: Taras Spencer MD Date of Service: 01/13/25 Procedure(s): XR chest 1V Accession Number(s): [id number] cc: Robbie Kothari MD; Taras Spencer MD EXAMINATION: XR CHEST 1 VIEW HISTORY: cough COMPARISON: Comparison is made with the prior examination dated 12/30/2024. FINDINGS: A single AP portable view of the chest performed at 12:17 PM is submitted. Again seen is extensive scarring in both lungs. There are probable new small airspace opacities at the right lung apex and at the left lung base. There is no pleural effusion, pneumothorax, or pulmonary vascular congestion. The heart is normal in size. The aorta is tortuous and calcified. The bones are intact. XR/XR chest 1V IMPRESSION: Extensive bilateral lung scarring. Probable new airspace opacities at the right lung apex and at the left lung base, suspicious for pneumonia. Follow-up is recommended. Electronically signed by: Robbie Rosales MD 01/13/2025 12:28 PM EDT Dictated By: Robbie Rosales MD Signed By: <Electronically signed by Robbie Rosales MD in OV> 01/13/25 1228 DD/ 1222 TD/TT: 01/13/25 1222 School Clerk: [address] [address] XRay Report Signed Patient: Jeremiah King MR#: [id number] [birth year] : 1940 Acct:[id number] Age/Sex: 84 / M ADM Date: 01/13/25 Loc: .ED Attending Dr: Ordering Physician: Taras Spencer MD Date of Service: 01/13/25 Procedure(s): XR chest 1V Accession Number(s): [id number] cc: Robbie Kothari MD; Taras Spencer MD EXAMINATION: XR CHES T 1 VIEW HISTORY: cough COMPARISON: Comparis on is made with the prior examination dated 12/30/2024. FINDINGS: A single A P portable view of the chest performed at 12:17 PM is submitted. Again seen is extensive scarring in both lungs. There are probable new small airspace opacities at the right lung apex and at the left lung base. Ther e is no pleural effusion, pneumothorax, or pulmonary vascular congestion. The heart is normal in size. The aorta is tortuous and calcified. The bones are intact. X R/XR chest 1V IMPRESSION: Extensive bilateral lung scarring. Probable new airspace opacities at the right lung apex and at the left lung base, suspicious for pneumonia. Follow-up is recommended. Electronically gurpreet d by: Robbie Rosales MD 01/13/2025 12:28 PM EDT RP Dictated By: Robbie Rosales MD Signed By: <Electronically signed by Robbie Rosales MD in OV> 01/13/25 1228 DD/ 1222 TD/TT: 01/13/25 1222 School Clerk: Reason For Referral Reason Urgent Referral Requ [...] Urology Referred Provider Specialty Urology General Notes 12/06/2024 09:06:05 AM > Faxed referral and progress notes from last 2 visits, 12/12/2024 10:23:22 AM > stated they did not receive referral, referral was refaxed, 12/15/2024 01:20:36 PM > Patient is scheduled with [facility] for 02/08/25 @ 2pm. Patient was also placed on the waiting list. Appointment was booked with the patients Referral Priority Routine Referral Appointment Date 02/08/2025 Medications Medication SIG (Take, Route, Frequency, Duration) Notes Start Date End Date Status Escitalopram Oxalate 10 MG Oral Active predniSONE 10 MG TAKE 4 TABS BY MOUTH X 2 DAYS, 3 TABS X 3 DAYS, 2 TABS X 3 DAYS, THEN 1 TAB X 3 DAYS DIRECTED. Oral Active Albuterol Sulfate (2.5 MG/3ML) 0.083% Inhalation Active Atorvastatin Calcium 10 MG TAKE 1 TABLET BY MOUTH EVERY DAY Active Immunizations Vaccine Route Administration Date Status [...] Problem Status W/U Status Risk Notes Problem 5026039 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 Problem Hyperlipidemia (44481617) Hyperlipidemia (E78.5) Active confirmed Distal cholesterol is stable but his triglycerides are elevated. He will continue on his current diet until he has fully recovered from the stroke. He will continue on his medications. Problem 39313055 Hyponatremia (E87.1) Active confirmed After admission to [facility] he required hypertonic saline and then 1 g of sodium chloride tablets 3 times a day to restore his potassium to normal. He was discharged without this. Blood work with a sodium level will be checked frequently. Problem 467222086 Underweight (R63.6) Active confirmed He has lost ove r 20 pounds since his last visit. His body mass index is 18. We discussed nutrition at length today. 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 He has been told by pulmonary that his infection is making progress. The CT scan of November 29 show stability in the 1.3 cm right upper lobe cavitary leesion. Problem 96391641 Orthostatic hypotension (I95.1) Active confirmed He developed th is at home and was brought to the [facility] emergency of December 30, 2024 and admitted overnight for hydration. We have discussed aggressive hydration and adequate nutrition. Problem 109144582 Rosacea (L71.9) Active confirmed He was given metronidazole gel. He was instructed in its use. Problem 137899669 Pulmonary nodule (R91.1) Active confirmed This is being observed. No change in his symptoms have been noted. Problem 602107222 Adenoma of ascending colon (D12.2) Active confirmed He will call he r gastroenterologis t to see if additional colonoscopies will be recommended. Problem 24136849 Abdominal hernia without obstruction and without gangrene, recurrence not specified, unspecified hernia type (K46.9) Active confirmed The hernia is n ow asymptomatic and will be observed without treatment. Problem Pneumonia (175062510) Pneumonia (J18.9) Active confirmed He is taking th e azithromycin 3 times a week. The other antibiotic has been discontinued. The pneumonia has resolved. He is breathing comfortably. Problem Seizure (98575634) Seizures (R56.9) Active confirmed Just before discharge from an [facility] he was begun on Keppra for periods of unresponsiveness. A repeat CT scan November 18, 2024 showed improvement in the hemorrhage and edema. The Her will be discontinued until the electroencephalog jackie is done. We have requested a repeat visit from [facility] neurology. Problem 3042549425464 Benign prostatic hyperplasia with lower urinary tract symptoms (N40.1) Active confirmed He says he is rising from sleep up to 4 times a night. His tamsulosin waas stopped because of a low blood pressure. It curtis now resumed. He is happy with this level of control. We discussed further lifestyle modifications he can maake to reduce nocturia. Problem 29708328 Sleep apnea in adult (G47.30) Active confirmed He is using t he new CPAP machine without difficulty and is pleased with the results. 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 Problem 34809974 Atrial arrhythmia (I49.8) Active confirmed He was in a normal sinus rhythm today with no abnormalities. He has had no episodes of tachycardia, syncope or palpitations. 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 Vital Signs Heart Rate 87 /min 01/04/2025 Temperature 98.1 degrees Fahrenheit 01/04/2025 Blood pressure diastolic 64 mm Hg 01/04/2025 Height 76 in 01/04/2025 Blood pressure systolic 125 mm Hg 01/04/2025 Weight 159 lbs 01/04/2025 BMI 19.35 kg/m2 01/04/2025 Encounters Encounter Location Date Provider Diagnosis Robbie Kothari III, MD [address] [place] [address] [place] [phone] 01/13/2025 Robbie Kothari Hyperlipidemia E78.5 Robbie Kothari III, MD [address] [place] [address] [place] [phone] 04/14/2024 Robbie Kothari Hyperlipidemia E78.5 ; Vertigo R42 ; Tinnitus, left H93.12 ; Former smoker Z87.891 ; Mycobacterial infection, unspecified A31.9 and Atrial arrhythmia I49.8 Robbie Kothari III, MD [address] [place] [address] [place] [phone] 04/15/2024 Robbie Kothari Hyperlipidemia E78.5 ; Labyrinthitis, unspecified laterality H83.09 ; Former smoker Z87.891 ; Rosacea L71.9 ; Mycobacterial infection, unspecified A31.9 and Right anterior knee pain M25.561 Robbie Kothari III, MD [address] [place] [address] [place] [address] 04/22/2024 Rbobie Kothari Hyperlipidemia E78.5 ; Benign prostatic hyperplasia with lower urinary tract symptoms N40.1 ; Former smoker Z87.891 ; Mycobacterial infection, unspecified A31.9 ; Sleep apnea in adult G47.30 and Labyrinthitis, unspecified laterality H83.09 Robbie Kothari III, MD [address] [place] [address] [place] [address] 06/02/2024 Robbie Chance for immunization Z23 Robbie Kothari III, MD [address] [place] [address] [place] [address] 07/25/2024 Robbie Kothari Hyperlipidemia E78.5 ; Mycobacterial infection, unspecified A31.9 ; Benign prostatic hyperplasia with lower urinary tract symptoms N40.1 ; Former smoker Z87.891 ; 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 and Sleep apnea in adult G47.30 Robbie Kothari III, MD [address] [place] [address] [place] [address] 11/21/2024 Robbie Kothari Hyperlipidemia E78.5 ; Nontraumatic [...] in adult G47.30 Robbie Kothari III, MD [address] [place] [address] [place] [address] 12/02/2024 Robbie Kothari Hyperlipidemia E78.5 ; 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 ; Pneumonia J18.9 ; Former smoker Z87.891 ; Mycobacterial infection, unspecified A31.9 ; Sleep apnea in adult G47.30 and Benign prostatic hyperplasia with lower urinary tract symptoms N40.1 Robbie Kothari III, MD [address] [place] [address] [place] [address] 12/19/2024 Robbie Kothari Hyperlipidemia E78.5 ; 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 ; Pneumonia J18.9 ; Underweight R63.6 ; Seizures R56.9 ; Former smoker Z87.891 ; Mycobacterial infection, unspecified A31.9 ; Sleep apnea in adult G47.30 and Benign prostatic hyperplasia with lower urinary tract symptoms N40.1 Robbie Kothari III, MD [address] [place] [address] [place] [address] 01/04/2025 Robbie Kothari Orthostatic hypotens ion I95.1 ; Former smoker Z87.891 ; Atrial arrhythmia I49.8 ; Hyperlipidemia E78.5 ; Rosacea L71.9 ; Benign prostatic hyperplasia with lower urinary tract symptoms N40.1 ; 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 ; Underweight R63.6 and Pneumonia J18.9 Robbie Kothari III, MD [address] [place] [address] [place] [address] 10/28/2024 Robbie Kothari III, MD [address] [place] [address] [place] [address] 11/21/2024 Robbie Kothari III, MD [address] [place] [address] [place] [address] 11/21/2024 Robbie Kothari III, MD [address] [place] [address] [place] [address] 11/22/2024 Robbie Kothari III, MD [address] [place] [address] [place] [address] 11/22/2024 Robbie Kothari III, MD [address] [place] [address] [place] [address] 11/25/2024 Robbie Kothari III, MD [address] [place] [address] [place] [address] 11/25/2024 Robbie Kothari III, MD [address] [place] [address] [place] [address] 12/05/2024 Robbie Kothari III, MD [address] [place] [address] [place] [address] 12/14/2024 Robbie Kothari III, MD [address] [place] [address] [place] [address] 12/20/2024 Robbie Kothari III, MD [address] [place] [address] [place] [address] 01/02/2025 Robbie Kothari III, MD [address] [place] [address] [place] [address] 01/03/2025 Robbie Kothari III, MD [address] [place] [address] [place] [address] 01/06/2025 Robbie Kothari III, MD [address] [place] [address] [place] [address] 01/13/2025 Robbie Kothari Assessments Encounter Date Diagnosis (ICD Code) Assessment Notes Treatment Notes Treatment Clinical Notes 01/13/2025 Hyperlipidemia (ICD-10 - E78.5) 04/14/2024 Hyperlipidemia (ICD-10 - E78.5) His lipids [...] be seen once a week at least. 01/04/2025 Former smoker (ICD-10 - Z87.891) He has a strategy to prevent relapse in times of stress and illness. 01/04/2025 Orthostatic hypotension (ICD-10 - I95.1) He developed this at home and was brought to the [facility] emergency of December 30, 2024 and admitted overnight for hydration. We have discussed aggressive hydration and adequate nutrition. 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 A repeat CT scan November 18, 2024 showed improvement in the hemorrhage and edema. The Her will be discontinued until the electroencephalogram is done. We have requested a repeat visit from [facility] neurology. 12/02/2024 Pneumonia (ICD-10 - J18.9) He [...] pneumonia has resolved. He is breathing comfortably. 01/04/2025 Atrial arrhythmia (ICD-10 - I49.8) He was [...] Hyponatremia (ICD-10 - E87.1) After admission to [facility] he required hypertonic saline and then 1 [...] 18. We discussed nutrition at length today. 01/04/2025 Hyperlipidemia (ICD-10 - E78.5) Distal cholesterol is stable but his triglycerides are elevated. He will continue on his current diet until he has fully recovered from the stroke. He will continue on his medications. 04/14/2024 Mycobacterial infection, unspecified (ICD-10 - A31.9) [...] We have requested a repeat visit from [facility] neurology. 01/04/2025 Rosacea (ICD-10 - L71.9) He was given metronidazole gel. He was instructed in its use. 04/14/2024 Atrial arrhythmia (ICD-10 - I49.8) He [...] relapse in times of stress and illness. 01/04/2025 Benign prostatic hyperplasia with lower urinary tract symptoms (ICD-10 - N40.1) He says he is rising from sleep up to 4 times a night. His tamsulosin waas stopped because of a low blood pressure. It curtis now resumed. He is happy with this level of control. We discussed further lifestyle modifications he can maake to reduce nocturia. 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 01/04/2025 Nontraumatic hemorrhage of left cerebral hemisphere (ICD-10 [...] be seen once a week at least. 11/21/2024 Rosacea (ICD-10 - L71.9) He was given metronidazole gel. He was instructed in its use. 12/19/2024 Sleep apnea in adult (ICD-10 - G47.30) He is using the new CPAP machine without difficulty and is pleased with the results. 01/04/2025 Underweight (ICD-10 - R63.6) He has lost over 20 pounds since his last visit. His body mass index is 18. We discussed nutrition at length today. 11/21/2024 Atrial arrhythmia (ICD-10 - I49.8) He [...] modifications he can maake to reduce nocturia. 01/04/2025 Pneumonia (ICD-10 - J18.9) He is taking the azithromycin 3 times a week. The other antibiotic has been discontinued. The pneumonia has resolved. He is breathing comfortably. 11/21/2024 Benign prostatic hyperplasia with lower urinary [...] DIFF 07/22/2023 Complete Blood Count Auto Diff Hold Lt Blue - Possible Coag 01/13/2025 Liver Panel 01/13/2025 Basic Metabolic Panel 01/13/2025 Magnesium 01/13/2025 Troponin-I High Sensitivity 01/13/2025 C Reactive Protein 01/13/2025 B Type Natriuretic Peptide 01/13/2025 Lipid Panel 03/06/2021 Lipid Panel 10/08/2021 Lipid Panel 07/25/2024 Lipid Panel 04/22/2024 Lipid Panel 07/22/2023 CT head/brain wo con 01/13/2025 XR chest 1V 01/13/2025 Blood Culture (First) 12/30/2024 Blood Culture (Second) 12/30/2024 Next Appt Details Provider Name:Robbie Kothari, 01/27/2025 09:15:00 AM, [address] [place] [address] [address], [place], [address], Insurance Providers Payer Name Payer Address Payer Phone Subscriber Number Group Number Insured Name Patient Relationship to Insured Coverage Start Date Coverage End Date [employer]age [address] [address] [place] [address] [id number] Freeman King Self - patient is the insured MEDICARE [facility] [address] [place] [phone] [id number] Freeman King Self - patient is the insured Medical (General) History Medical History History ICD Code colonic poyps 2002 benign prostatic hyperplasia (BPH) hyperlipidemia left herniorraphy age 30 neck and right shoulder pain 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
--- OUTSIDE RECORDS SUMMARY | 2025-01-13 12:46 | XMS_ITS ---
Author Organization Robbie Kothari III, MD Address [address] [place] [address] [place] [address] Care Team Providers Care Senior Accounting Associate Name Role Phone Robbie Kothari Primary Care Provider REASON FOR VISIT told patient to call Social History Sex Assigned At : Social History Observation Description Sex Assigned At Male Encounters Encounter Location Date Provider Diagnosis Robbie Kothari III, MD [address] [place] [address] [place] [address] 01/06/2025 Robbie Kothari Plan Of Treatment Next Appt Details Provider Name:Robbie Kothari, 01/27/2025 09:15:00 AM, [address] [place] [address] [place], [address], Progress Notes * Freeman ROCHADOB: 0 (84 yo M)Acc No.[id number]:01/06/2025 Patient:?Freeman ROCHA :1940???Age:84 Y???Sex:Male Address:[place] [address] * true * Date:? Generated for Printi ng/Faxing/eTransmitting on:?01/13/2025 12:45 PM EDT
--- OUTSIDE RECORDS SUMMARY | 2025-01-13 12:46 | XMS_ITS | Encounter Summary ---
Author Organization [facility] Address [address] [place] [address] Care Team Providers Care Supervisor Order Takers Name Role Phone Gloria Preston MD Primary Care Provider [phone] Encounter Details Date Type Department Care Team (Late st Contact Info) Description 11/07/[address] [facility] [address] [place] [address] Gloria Preston MD [address] [place] [address] Encounter for other general examination Social History [...] LAB CHEMISTRY METHOD 11/07/2024 1:06 PM EST [facility] Potassium 3.9 3.5 - 5.5 mmol/L LAB CHEMISTRY METHOD 11/07/2024 1:06 PM EST [facility] Chloride 99 96 - [...] LAB CHEMISTRY METHOD 11/07/2024 1:06 PM EST [facility] Total Bilirubin 1.1 0.0 - 1.4 mg/dL LAB CHEMISTRY METHOD 11/07/2024 1:06 PM EST [facility] Blood Venous blood specimen / Unknown Venipuncture / Unknown 11/07/2024 5:23 AM EST 11/07/2024 10:38 AM EST us Gloria Preston MD LAB BLOOD ORDERABLES Final Resu lt [facility] ([facility] [address] [place] [address], documented in this encounter Visit Diagnoses Diagnosis Encounter for other general examination documented in this encounter Care Teams Supervisor Order Takers Relationship Specialty Start Date End Date Gloria Preston MD [address] [place] [address] PCP - General Hospitalist Medicine 11/05/24 documented as of this encounter
--- OUTSIDE RECORDS SUMMARY | 2025-01-13 12:46 | XMS_ITS ---
Author Organization Robbie Kothari III, MD Address [address] [place] [address] [place] [address] Care Team Providers Care Card Clothier Name Role Phone Robbie Kothari Primary Care Provider REASON FOR VISIT FYI Social History Sex Assigned At : Social History Observation Description Sex Assigned At Male Encounters Encounter Location Date Provider Diagnosis Robbie Kothari III, MD [address] [place] [address] [place] [address] 01/13/2025 Robbie Kothari Plan Of Treatment Next Appt Details Provider Name:Robbie Kothari, 01/27/2025 09:15:00 AM, [address] [place] [address] [place], [address], Progress Notes * Freeman ROCHADOB: 0 (84 yo M)Acc No.[id number]:01/13/2025 Patient:?Freeman ROCHA :1940???Age:84 Y???Sex:Male Address:[place] [address] * true * Date:? Generated for Printi ng/Faxing/eTransmitting on:?01/13/2025 12:46 PM EDT
--- OUTSIDE RECORDS SUMMARY | 2025-01-13 12:46 | XMS_ITS | Encounter Summary ---
Author Organization [facility] Address [address] [place] [address] Care Team Providers Care Director Of Rotc Name Role Phone Gloria Preston MD Primary Care Provider [phone] Encounter Details Date Type Department Care Team (Late st Contact Info) Description 11/05/2024 Lab Requisition [facility] - Main Lab [address] [facility] [place] [address] Gloria Preston MD [address] [place] [address] Encounter for other general examination Social History [...] differential (11/05/2024 5:51 AM EST) [facility] WBC 8.0 4.8 - 10.8 K/mcL LAB HEMETOLOGY METHOD 11/05/2024 11:21 AM [facility] RBC 4.20(L) 4.50 - 5.50 M/mcL LAB HEMETOLOGY METHOD 11/05/2024 11:21 AM [facility] Hemoglobin 13.8 13.5 - 17.5 g/dL LAB HEMETOLOGY METHOD 11/05/2024 11:21 AM [facility] Hematocrit 39.6(L) 42.0 - 54.0 % LAB HEMETOLOGY METHOD 11/05/2024 11:21 AM [facility] MCV 94.7 79.0 - 98.0 FL LAB HEMETOLOGY METHOD 11/05/2024 11:21 AM [facility] MCH 33.0(H) 27.0 - 32.0 pcg LAB HEMETOLOGY METHOD 11/05/2024 11:21 AM [facility] MCHC 34.8 32.0 - 37.0 g/dL LAB HEMETOLOGY METHOD 11/05/2024 11:21 AM [facility] RDW 12.7 11.0 - 15.0 % LAB HEMETOLOGY METHOD 11/05/2024 11:21 AM [facility] Platelets 261 130 - 400 K/mcL LAB HEMETOLOGY METHOD 11/05/2024 11:21 AM [facility] MPV 10.4 7.0 - 11.0 FL LAB HEMETOLOGY METHOD 11/05/2024 11:21 AM [facility] NRBC 0.0 <1.0 % LAB HEMETOLOGY METHOD 11/05/2024 11:21 AM [facility] NRBC Absolute 0.00 <0.10 K/mcL LAB HEMETOLOGY METHOD 11/05/2024 11:21 AM [facility] Neutrophils Relative 73.3 % LAB HEMETOLOGY METHOD 11/05/2024 11:21 AM [facility] Lymphocytes Relative 10.6 % LAB HEMETOLOGY METHOD 11/05/2024 11:21 AM [facility] Monocytes Relative 14.7 % LAB HEMETOLOGY METHOD 11/05/2024 11:21 AM [facility] Eosinophils Relative 0.4 % LAB HEMETOLOGY METHOD 11/05/2024 11:21 AM [facility] Basophils Relative 0.6 % LAB HEMETOLOGY METHOD 11/05/2024 11:21 AM [facility] Immature Granulocytes Relative 0.4 % LAB HEMETOLOGY METHOD 11/05/2024 11:21 AM [facility] Neutrophils Absolute 5.87 1.50 - 7.00 K/mcL LAB HEMETOLOGY METHOD 11/05/2024 11:21 AM [facility] Lymphocytes Absolute 0.85(L) 1.00 - 5.00 K/mcL LAB HEMETOLOGY METHOD 11/05/2024 11:21 AM [facility] Monocytes Absolute 1.18(H) 0.20 - 1.00 K/mcL LAB HEMETOLOGY METHOD 11/05/2024 11:21 AM [facility] Eosinophils Absolute 0.03 0.00 - 0.50 K/mcL LAB HEMETOLOGY METHOD 11/05/2024 11:21 AM [facility] Basophils Absolute 0.05 0.00 - 0.20 K/mcL LAB HEMETOLOGY METHOD 11/05/2024 11:21 AM [facility] Immature Granulocytes Absolute 0.03 0.00 - 0.03 K/mcL LAB HEMETOLOGY METHOD 11/05/2024 11:21 AM [facility] Blood Venous blood specimen / Unknown Venipuncture / Unknown 11/05/2024 5:51 AM EST 11/05/2024 9:43 AM EST us Gloria Preston MD LAB BLOOD ORDERABLES Final Resu lt [facility] [address] [place] [address], [place] [phone] * Magnesium (11/05/2024 5:51 AM EST) [facility] Magnesium 2.0 1.9 - 2.6 mg/dL LAB CHEMISTRY METHOD 11/05/2024 11:42 AM EST [facility] Blood Venous blood specimen / Unknown Venipuncture / Unknown 11/05/2024 5:51 AM EST 11/05/2024 9:43 AM EST us Gloria Preston MD LAB BLOOD ORDERABLES Final Resu lt Performing Organization Address City/[facility]/ZIP Co de Phone Number [facility] [address] [place] [address], [place] [phone] * (ABNORMAL) Comprehensive metabolic panel (11/05/2024 5:51 AM EST) [facility] Sodium 133 133 - 145 mmol/L LAB CHEMISTRY METHOD 11/05/2024 11:44 AM [facility] Potassium 4.1 3.5 - 5.5 mmol/L LAB CHEMISTRY METHOD 11/05/2024 11:44 AM [facility] Chloride 99 96 - 110 mmol/L LAB CHEMISTRY METHOD 11/05/2024 11:44 AM [facility] CO2 24 21 - 32 mmol/L LAB CHEMISTRY METHOD 11/05/2024 11:44 AM [facility] Anion Gap 10 3 - 11 LAB CHEMISTRY METHOD 11/05/2024 11:44 AM [facility] Glucose 92 70 - 100 mg/dL LAB CHEMISTRY METHOD 11/05/2024 11:44 AM [facility] BUN 18 5 - 25 mg/dL LAB CHEMISTRY METHOD 11/05/2024 11:44 AM [facility] Creatinine 0.54(L) 0.70 - 1.30 mg/dL LAB CHEMISTRY METHOD 11/05/2024 11:44 AM [facility] eGFR 98 >=60 mL/min/1. 73m2 LAB CHEMISTRY METHOD 11/05/2024 11:44 AM [facility] Comment:Calculation based on the??Chronic Kidney Disease Epidemiology Collaboration (CKD-EPI) equation refit??without adjustment for race. BUN/Creatinine Ratio 33.3 LAB CHEMISTRY METHOD 11/05/2024 11:44 AM [facility] Calcium 9.0 8.5 - 10.5 mg/dL LAB CHEMISTRY METHOD 11/05/2024 11:44 AM [facility] AST (SGOT) 17 10 - 42 unit/L LAB CHEMISTRY METHOD 11/05/2024 11:44 AM [facility] ALT (SGPT) 19 10 - 60 unit/L LAB CHEMISTRY METHOD 11/05/2024 11:44 AM [facility] Alkaline Phosphatase 83 42 - 121 unit/L LAB CHEMISTRY METHOD 11/05/2024 11:44 AM [facility] Total Protein 6.6 6.0 - 8.0 g/dL LAB CHEMISTRY METHOD 11/05/2024 11:44 AM [facility] Albumin 2.8(L) 3.2 - 5.0 g/dL LAB CHEMISTRY METHOD 11/05/2024 11:44 AM [facility] Total Bilirubin 1.1 0.0 - 1.4 mg/dL LAB CHEMISTRY METHOD 11/05/2024 11:44 AM [facility] Blood Venous blood specimen / Unknown Venipuncture / Unknown 11/05/2024 5:51 AM EST 11/05/2024 9:43 AM EST us Gloria Preston MD LAB BLOOD ORDERABLES Final Resu lt [facility] [address] [place] [address], documented in this encounter Visit Diagnoses Diagnosis Encounter for other general examination documented in this encounter Care Teams Director Of Rotc Relationship Specialty Start Date End Date Gloria Preston MD [address] [place] [id number] PCP - General Hospitalist Medicine 11/05/24 documented as of this encounter
--- OUTSIDE RECORDS SUMMARY | 2025-01-13 12:46 | XMS_ITS | Patient Health Record ---
Author Organization [facility] Address [address] [place] [address] Care Team Providers Care Manager Dish Name Role Phone Robbie Kothari MD Primary Care Provider UnavailAna Damon Unavailable [phone] Allergies Allergen (clinical drug ingredient) Drug/Non Drug [...] 12/27/2024 Encounters Encounter Location Date Provider Diagnosis [facility] [address] [place] [address] 03/29/2024 Ana Hernandez Tinea unguium B35.1 ; Pain in right toe(s) M79.674 and Pain in left toe(s) M79.[address] [address] 06/28/2024 Ana Perica Tinea unguium B35.1 ; Pain in right toe(s) M79.674 and Pain in left toe(s) M79.[address] [address] 09/27/2024 Ana Perica Tinea unguium B35.1 ; Pain in right toe(s) M79.674 and Pain in left toe(s) M79.[address] [address] 12/27/2024 Ana Perica Tinea unguium B35.1 ; [...] Name:Ana Chun garduno, 03/28/2025 11:15:00 AM, [address] [place], [address], Insurance Providers Payer Name Payer Address Payer Phone Subscriber Number Group Number Insured Name Patient Relationship to Insured Coverage Start Date Coverage End Date [facility] Medicare-[id number] [address] [place] [phone] [id number] Freeman King Self - patient is the insured Medical (General) History Medical History History ICD Code Measles Mumps Chicken pox Stroke Surgical History Surgery Date(Month/Year) hernia colonoscopy Hospitalization History Reason Date(Month/Year) [facility]- Stroke 10/2024
--- OUTSIDE RECORDS SUMMARY | 2025-01-13 12:46 | XMS_ITS ---
Author Organization Robbie Kothari III, MD Address [address] [place] [address] [place] [address] Care Team Providers Care Cashier Wrapper Name Role Phone Robbie Kothari Primary Care Provider [phone] Allergies Allergen (clinical drug ingredient) Drug/Non Drug Allergy documented on EMR Reaction Allergy Type Onset Date Status No Known Drug Allergy Unknown Drug Allergy Active REASON FOR VISIT Telehealth Medications Medication SIG (Take, Route, Frequency, Duration) Notes Start Date End Date Status Escitalopram Oxalate 10 MG Oral Active Albuterol Sulfate (2.5 MG/3ML) 0.083% Inhalation Active Atorvastatin Calcium 10 MG TAKE 1 TABLET BY MOUTH EVERY DAY Active predniSONE 10 MG TAKE 4 TABS BY MOUTH X 2 DAYS, 3 TABS X 3 DAYS, 2 TABS X 3 DAYS, THEN 1 TAB X 3 DAYS DIRECTED. Oral Active Social History Tobacco Use: Social History Observation Description Date Details (start date - stop date) Former Smoker NA - NA Sex Assigned At : Social History Observation Description Sex Assigned At Male Tobacco Use/Smoking Question Answer Notes Patient is a former smoker How long has it been since you last smoked? > 10 years Additional Findings: Tobacco Non-User Ex-cigaret te smoker Encounters Encounter Location Date Provider Diagnosis Robbie Kothari III, MD [address] [place] [address] [place] [address] 01/13/2025 Robbie Kothari Hyperlipidemia E78.5 Assessments Encounter Date Diagnosis (ICD Code) Assessment Notes Treat ment Notes Treatment Clinical Notes 01/13/2025 Hyperlipidemia (ICD-10 - E78.5) Plan Of Treatment Medication Medication Name Sig Start Date Stop Date Notes Escitalopram Oxalate 10 MG Oral Albuterol Sulfate (2.5 MG/3M L) 0.083% Inhalation Atorvastatin Calcium 10 MG TAKE 1 TABLET BY MOUTH EVERY DAY predniSONE 10 MG TAKE 4 TABS BY MOUTH X 2 DAYS, 3 TABS X 3 DAYS, 2 TABS X 3 DAYS, THEN 1 TAB X 3 DAYS DIRECTED. Oral Next Appt Details Provider Name:Robbie Kothari, 01/27/2025 09:15:00 AM, [address] [place] [address] DR, [address], [place], [address], Progress Notes * Freeman ROCHADOB: 0 (84 yo M)Acc No.[id number]:01/13/2025 Patient:?Freeman ROCHA J Provider:?Robbie Kothari MD :1940???Age:84 Y???Sex:Male Lokesh e:01/13/2025 Address:[address] [place] [address] [id number] Subjective: * Chief Complaints: * ???1. Telehealth. * HPI: ???:?wrong direction,? thu p was 110, thursday was commatose, thursday pt came better in am confused yerst pt? could do less dizzy, becoming too weak to walk and stand., i said stop the lexapro, go toer. ?Telehealth?Location of provider rendering services:?{...} [address] [place] [address] Drive [address] [facility] [address] ?Location of patient:?address listed in demographics for today's visit ?Patient identification confirmed using:?Name, ?Telehealth method:?Telephone only. Patient not visible to care provider. ?Consent:?Patient verbally consented to treatment, Patient verbally consented to billing insurance company, Patient informed of any privacy concerns related to method of visit ?Total time spent with patient (mins)?15 * ROS:?General/Constitutional:?pain?only normal aches and pains.?Chills?denies.?Fatigue?admits.?Fever?denies.?ENT:?Decreased hearing?denies.?Respiratory:?Cough?denies.?Cardiovascular:?Chest pain with exertion?denies.?Dyspnea on exertion?denies.?Shortness of breath?denies.?Gastrointestinal:?Constipation?denies.?Decreased appetite?denies.?Diarrhea?denies.?Heartburn?denies.?Nausea?denies.?Rectal bleeding?denies.?Vomiting?denies.?Hematology:?bruising?denies.?petechiae?denies.?Swollen glands?none have been noted.?Genitourinary:?Frequent urination?denies.?Musculoskeletal:?Muscle aches?denies.?Painful joints?denies.?Sciatica?denies.?Weakness?denies.?Skin:?Itching?denies.?Rash?denies.?Skin lesion(s)?denies.?Neurologic:?Difficulty speaking?denies.?Dizziness?denies.?Headache?denies.?Low back pain?denies.?Psychiatric:?Depressed mood?denies.? 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 * Surgical History:?colonoscop y 2008, No history . * Hospitalization/Major Diagno stic Procedure:?No history . * Family History:?Father: dece ased 73 yrs, [...] children and 2 grandchildren. 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 He was born in [place], [place]. * Medications:?Taking Atorvast atin Calcium 10 MG Tablet TAKE 1 TABLET BY MOUTH EVERY DAY , Taking Albuterol Sulfate (2.5 MG/3ML) 0.083% Nebulization Solution Inhalation , Taking predniSONE 10 MG Tablet TAKE 4 TABS BY MOUTH X 2 DAYS, 3 TABS X 3 DAYS, 2 TABS X 3 DAYS, THEN 1 TAB X 3 DAYS DIRECTED. Oral , Taking Escitalopram Oxalate 10 MG Tablet Oral , Discontinued Amoxicillin-Pot Clavulanate 875-125 MG Tablet Oral , Discontinued Azithromycin 500 MG Tablet 1 TAB 3 TIMES A WEEK FOR 90 DAYS Thursday Oral , Medication List reviewed and reconciled with the patient * Allergies:?No Known Drug All ergy. Objective: * Vitals:? Assessment: * Assessment: 1.?Hyperlipidemia - E78.5??? Plan: * Treatment: * Procedure Codes:?48218 SYNCH AUDIO-ONLY EST SF 10 * Images: * The named appointment provid er may or may not be the originator of this progress note, and it is not deemed complete until electronically signed by the appointment provider. Sign off status: Pending * Provider:?Robbie Kothari MD Date:?10/2024 Generated for Chip andres/Awais/Tiffanie on:?01/13/2025 12:46 PM EDT History and Physical Notes * HPI (History of Present Illness) Category Sub-Category Detail Notes Telehealth Location of [facility] ider rendering services:: {...} [address] [facility] [address] Location of patient:: address listed in demographics for today's visit Patient identification confirmed using:: Name, Telehealth method:: Telephone only. Carrie ent not visible to care provider. Consent:: Patient verbally c onsented to treatment, Patient verbally consented to billing insurance company, Patient informed of any privacy concerns related to method of visit Total time spent with patient (mins): 15
--- OUTSIDE RECORDS SUMMARY | 2025-01-13 12:47 | XMS_ITS | Clinical Summary ---
Author Organization [address] [facility] Address [address] [place] [address] Phone Care Team Providers Care Naval Aircrewman Mechanical Name Role Phone Gloria Preston MD Primary Care Provider Encounters Date Type Department Care Team Description 11/18/2024 Lab Requisition [facility] [address] [place] [address] Gloria Preston MD Encounter for other general examination 11/16/2024 Lab Requisition [facility] [address] [place] [address] Gloria Preston MD Encounter for other general examination 11/14/2024 Lab Requisition [facility] [address] [place] [address] Gloria Preston MD Encounter for other general examination 11/10/2024 Lab Requisition [facility] [address] [place] [address] Gloria Preston MD Encounter for other general examination 11/07/2024 Lab Requisition [facility] [address] [place] [address] Gloria Preston MD Encounter for other general examination 11/05/2024 Lab Requisition [facility] [address] [place] [address] Gloria Preston MD Encounter for other general [...] K/mcL LAB HEMETOLOGY METHOD 11/18/2024 4:02 PM [facility] RBC 3.90(L) 4.50 - 5.50 M/mcL LAB HEMETOLOGY METHOD 11/18/2024 4:02 PM [facility] Hemoglobin 12.8(L) 13.5 - 17.5 g/dL LAB HEMETOLOGY METHOD 11/18/2024 4:02 PM [facility] Hematocrit 37.1(L) 42.0 - 54.0 % LAB HEMETOLOGY METHOD 11/18/2024 4:02 PM [facility] MCV 94.2 79.0 - 98.0 FL LAB HEMETOLOGY METHOD 11/18/2024 4:02 PM [facility] MCH 32.5(H) 27.0 - 32.0 pcg LAB HEMETOLOGY METHOD 11/18/2024 4:02 PM [facility] MCHC 34.5 32.0 - 37.0 g/dL LAB HEMETOLOGY METHOD 11/18/2024 4:02 PM [facility] RDW 12.7 11.0 - 15.0 % LAB HEMETOLOGY METHOD 11/18/2024 4:02 PM [facility] Platelets 269 130 - 400 K/mcL LAB HEMETOLOGY METHOD 11/18/2024 4:02 PM [facility] MPV 9.8 7.0 - 11.0 FL LAB HEMETOLOGY METHOD 11/18/2024 4:02 PM [facility] NRBC 0.0 <1.0 % LAB HEMETOLOGY METHOD 11/18/2024 4:02 PM [facility] NRBC Absolute 0.00 <0.10 K/mcL LAB HEMETOLOGY METHOD 11/18/2024 4:02 PM [facility] Neutrophils Relative 70.4 % LAB HEMETOLOGY METHOD 11/18/2024 4:02 PM [facility] Lymphocytes Relative 16.0 % LAB HEMETOLOGY METHOD 11/18/2024 4:02 PM [facility] Monocytes Relative 12.8 % LAB HEMETOLOGY METHOD 11/18/2024 4:02 PM [facility] Eosinophils Relative 0.0 % LAB HEMETOLOGY METHOD 11/18/2024 4:02 PM [facility] Basophils Relative 0.5 % LAB HEMETOLOGY METHOD 11/18/2024 4:02 PM [facility] Immature Granulocytes Relative 0.3 % LAB HEMETOLOGY METHOD 11/18/2024 4:02 PM [facility] Neutrophils Absolute 2.64 1.50 - 7.00 K/mcL LAB HEMETOLOGY METHOD 11/18/2024 4:02 PM [facility] Lymphocytes Absolute 0.60(L) 1.00 - 5.00 K/mcL LAB HEMETOLOGY METHOD 11/18/2024 4:02 PM EST [facility] Monocytes Absolute 0.48 0.20 - 1.00 K/[facility] LAB HEMETOLOGY METHOD 11/18/2024 4:02 PM [facility] Eosinophils Absolute 0.00 0.00 - 0.50 K/[facility] LAB HEMETOLOGY METHOD 11/18/2024 4:02 PM EST [facility] Basophils Absolute 0.02 0.00 - 0.20 K/[facility] LAB HEMETOLOGY METHOD 11/18/2024 4:02 PM [facility] Immature Granulocytes Absolute 0.01 0.00 - 0.03 K/[facility] LAB HEMETOLOGY METHOD 11/18/2024 4:02 PM [facility] Blood Venous blood specimen / Unknown Venipuncture / Unknown 11/18/2024 2:59 PM EST 11/18/2024 3:36 PM EST Gloria Preston MD LAB BLOOD ORDERABLES Final Resu lt Performing Organization Address City/[facility]/ZIP Co de Phone Number [facility] [address] [place] [address], [place] [phone] * Prolactin (11/18/2024 2:59 PM EST) Prolactin 12.10 2.50 - 17.40 ng/mL LAB CHEMISTRY METHOD 11/18/2024 7:21 PM EST [facility] Blood Venous blood specimen / Unknown Venipuncture / Unknown 11/18/2024 2:59 PM EST 11/18/2024 3:36 PM EST us Gloria Preston MD LAB BLOOD ORDERABLES Final Resu lt [facility] [address] [place] [address], [place] [phone] * (ABNORMAL) Magnesium (11/18/2024 2:59 PM EST) Only the most recent of3 resultswithin the time period is included. [facility] Magnesium 1.6(L) 1.9 - 2.6 mg/dL LAB CHEMISTRY METHOD 11/18/2024 7:07 PM [facility] Blood Venous blood specimen / Unknown Venipuncture / Unknown 11/18/2024 2:59 PM EST 11/18/2024 3:36 PM EST us Gloria Preston MD LAB BLOOD ORDERABLES Final Resu lt [facility] [address] [place] [address], [place] [phone] * (ABNORMAL) Comprehensive metabolic panel (11/18/2024 2:59 PM EST) Only the most recent of3 resultswithin the time period is included. [facility] Sodium 134 133 - 145 mmol/L LAB CHEMISTRY METHOD 11/18/2024 7:21 PM [facility] Potassium 3.9 3.5 - 5.5 mmol/L LAB CHEMISTRY METHOD 11/18/2024 7:21 PM [facility] Chloride 98 96 - 110 mmol/L LAB CHEMISTRY METHOD 11/18/2024 7:21 PM [facility] CO2 27 21 - 32 mmol/L LAB CHEMISTRY METHOD 11/18/2024 7:21 PM [facility] Anion Gap 9 3 - 11 LAB CHEMISTRY METHOD 11/18/2024 7:21 PM [facility] Glucose 96 70 - 100 mg/dL LAB CHEMISTRY METHOD 11/18/2024 7:21 PM [facility] BUN 16 5 - 25 mg/dL LAB CHEMISTRY METHOD 11/18/2024 7:21 PM [facility] Creatinine 0.68(L) 0.70 - 1.30 mg/dL LAB CHEMISTRY METHOD 11/18/2024 7:21 PM [facility] eGFR 92 >=60 mL/min/1. 73m2 LAB CHEMISTRY METHOD 11/18/2024 7:21 PM [facility] Comment:Calculation based on the??Chronic Kidney Disease Epidemiology Collaboration (CKD-EPI) equation refit??without adjustment for race. BUN/Creatinine Ratio 23.5 LAB CHEMISTRY METHOD 11/18/2024 7:21 PM [facility] Calcium 8.8 8.5 - 10.5 mg/dL LAB CHEMISTRY METHOD 11/18/2024 7:21 PM [facility] AST (SGOT) 25 10 - 42 unit/L LAB CHEMISTRY METHOD 11/18/2024 7:21 PM [facility] ALT (SGPT) 22 10 - 60 unit/L LAB CHEMISTRY METHOD 11/18/2024 7:21 PM [facility] Alkaline Phosphatase 89 42 - 121 unit/L LAB CHEMISTRY METHOD 11/18/2024 7:21 PM [facility] Total Protein 6.5 6.0 - 8.0 g/dL LAB CHEMISTRY METHOD 11/18/2024 7:21 PM [facility] Albumin 2.8(L) 3.2 - 5.0 g/dL LAB CHEMISTRY METHOD 11/18/2024 7:21 PM [facility] Total Bilirubin 0.3 0.0 - 1.4 mg/dL LAB CHEMISTRY METHOD 11/18/2024 7:21 PM [facility] Blood Venous blood specimen / Unknown Venipuncture / Unknown 11/18/2024 2:59 PM EST 11/18/2024 3:36 PM EST us Gloria Preston MD LAB BLOOD ORDERABLES Final Resu lt [facility] [address] [place] [address], [place] [phone] * (ABNORMAL) Basic metabolic panel (11/16/2024 5:44 AM EST) Only the most recent of3 resultswithin the time period is included. Sodium 135 133 - 145 mmol/L LAB CHEMISTRY METHOD 11/16/2024 2:30 PM [facility] Potassium 4.1 3.5 - 5.5 mmol/L LAB CHEMISTRY METHOD 11/16/2024 2:30 PM [facility] Chloride 99 96 - 110 mmol/L LAB CHEMISTRY METHOD 11/16/2024 2:30 PM [facility] CO2 25 21 - 32 mmol/L LAB CHEMISTRY METHOD 11/16/2024 2:30 PM [facility] Anion Gap 11 3 - 11 LAB CHEMISTRY METHOD 11/16/2024 2:30 PM [facility] Glucose 79 70 - 100 mg/dL LAB CHEMISTRY METHOD 11/16/2024 2:30 PM [facility] BUN 18 5 - 25 mg/dL LAB CHEMISTRY METHOD 11/16/2024 2:30 PM [facility] Creatinine 0.64(L) 0.70 - 1.30 mg/dL LAB CHEMISTRY METHOD 11/16/2024 2:30 PM [facility] eGFR 93 >=60 mL/min/1. 73m2 LAB CHEMISTRY METHOD 11/16/2024 2:30 PM [facility] Comment:Calculation based on the??Chronic Kidney Disease Epidemiology Collaboration (CKD-EPI) equation refit??without adjustment for race. BUN/Creatinine Ratio 28.1 LAB CHEMISTRY METHOD 11/16/2024 2:30 PM [facility] Calcium 8.9 8.5 - 10.5 mg/dL LAB CHEMISTRY METHOD 11/16/2024 2:30 PM [facility] Blood Venous blood specimen / Unknown Venipuncture / Unknown 11/16/2024 5:44 AM EST 11/16/2024 10:20 AM EST us Gloria Preston MD LAB BLOOD ORDERABLES Final Resu lt Performing Organization Address [facility] Co de Phone Number [facility] [address] [place] [address], [place] [phone] * Thyroid stimulating hormone (11/10/2024 6:06 AM EST) [facility] TSH 1.57 0.40 - 4.00 mcIU/mL LAB CHEMISTRY METHOD 11/10/2024 9:51 PM EST [facility] Blood Venous blood specimen / Unknown Venipuncture / Unknown 11/10/2024 6:06 AM EST 11/10/2024 8:03 AM EST us Gloria Preston MD LAB BLOOD ORDERABLES Final Resu lt Performing Organization Address [facility] de Phone Number [facility] [address] [place] [address], [place] [phone] * Vitamin B12 (11/10/2024 6:06 AM EST) [facility] Vitamin B-12 413 250 - 900 pcg/mL LAB CHEMISTRY METHOD 11/10/2024 9:28 PM EST [facility] Blood Venous blood specimen / Unknown Venipuncture / Unknown 11/10/2024 6:06 AM EST 11/10/2024 8:03 AM EST us Gloria Preston MD LAB BLOOD ORDERABLES Final Resu lt Performing Organization Address [facility]/ZIP Co de Phone Number [facility] [address] [place] [address], [place] [phone] from Last 3 Months Insurance [employer]ARE Care Teams Naval [employer]cre[employer] Mechanical Relationship Specialty Start Date End Date Gloria Preston MD [address] [place] [address] PCP - General Hospitalist Medicine 11/05/24
--- OUTSIDE RECORDS SUMMARY | 2025-01-13 12:47 | XMS_ITS | Encounter Summary ---
Author Organization [facility] Address [address] [place] [address] Care Team Providers Care Car Examiner Name Role Phone Gloria Preston MD Primary Care Provider [phone] Encounter Details Date Type Department Care Team (Late st Contact Info) Description 11/16/2024 Lab Requisition [facility] [address] [facility] [place] [address] Gloria Preston MD [address] [place] [address] Encounter for other general examination Social History [...] AM EST) WBC 3.8(L) 4.8 - 10.8 K/[facility] LAB HEMETOLOGY METHOD 11/16/2024 11:05 AM [...] MD LAB BLOOD ORDERABLES Final Resu lt [facility] [address] [place] [address], [place] [phone] * (ABNORMAL) Basic metabolic panel (11/16/2024 5:44 [...] LAB CHEMISTRY METHOD 11/16/2024 2:30 PM EST [facility] Blood Venous blood specimen / Unknown Venipuncture / Unknown 11/16/2024 5:44 AM EST 11/16/2024 10:20 AM EST us Gloria Preston MD LAB BLOOD ORDERABLES Final Resu lt [facility] [address] [place] [address], documented in this encounter Visit Diagnoses Diagnosis Encounter for other general examination documented in this encounter Care Teams Car Examiner Relationship Specialty Start Date End Date Gloria Preston MD [address] [place] [address] PCP - General Hospitalist Medicine 11/05/24 documented as of this encounter
--- OUTSIDE RECORDS SUMMARY | 2025-01-13 12:47 | XMS_ITS ---
Author Organization [facility] Address [address] [place] [address] Care Team Providers Care Consulting It Architect Name Role Phone Robbie Kothari MD Primary Care Provider Ana Rosales Unavailable [phone] Allergies Allergen (clinical drug ingredient) Drug/Non Drug [...] 025 Encounters Encounter Location Date Provider Diagnosis [facility] [address] [place] [address] 12/27/2024 Ana Hernandez Tinea unguium B35.1 ; [...] Reason: Provider Name:Ana garduno, 03/28/2025 11:15:00 AM, [address] [place] [address], [address], Procedure Notes * Category Sub-Category Detail Notes [...] use of a nail nipper and/or dremel-type microgrinder operator, to a more viable healthy nail plate [...] to maintain effectiveness in symptomatic relief - 17170 Progress Notes * Freeman ROCHADOB: 0 (84 yo M)Acc No.[id number]:12/27/2024 Progress Note Patient:?Freeman ROCHA Provider:?Ana Hernandez DPM :1940???Age:84 Y???Sex:Male Lokesh e:12/27/2024 Address:[address] [place] Pcp:Robbie Kothari MD Subjective: * Chief Complaints: [...] History:?hernia col onoscopy * Hospitalization/Major Diagno stic Procedure:?[facility]- Stroke 10/2024 * Family History:?Mother: dece ased.?Father: .? * Social History:?Tobacco Use:?Tobacco use other than smoking?Are you an other tobacco user??No ?Tobacco Control (Standard)?Tobacco use:?Nonsmoker ???Miscellaneous:?Caffeine: yes, 3-5 cups per day. ?Children: no. ?Exercise: yes, walking. ?Marital status: . ?Occupation: Retired- [employer]. * Medications:?TakingAtorvasta tin Calcium 10 MG Tablet [...] use of a nail nipper and/or dremel-type microgrinder operator, to a more viable healthy nail plate [...] to maintain effectiveness in symptomatic relief - 924[address].? * Procedure Codes:?49186 DEBRI DE NAIL, 6 OR MORE, Modifiers: XS * Follow Up:?3 Months * Images: * Sign off status: Completed true * Provider:?Ana Hernandez DPM Date:? Generated for Chip andres/Awais/Tiffanie on:?01/13/2025 12:46 PM [...]
--- OUTSIDE RECORDS SUMMARY | 2025-01-13 12:47 | XMS_ITS | Encounter Summary ---
Author Organization [facility] Address [address] [place] [address] Care Team Providers Care Cooker Helper Name Role Phone Gloria Preston MD Primary Care Provider [phone] Encounter Details Date Type Department Care Team (Late st Contact Info) Description 11/10/2024 Lab Requisition [facility] - [facility] Lab [address] [facility] [place] [address] Gloria Preston MD [address] [place] [address] Encounter for other general examination Social History [...] * Vitamin B12 (11/10/2024 6:06 AM EST) [facility] Vitamin B-12 413 250 - 900 pcg/mL LAB CHEMISTRY METHOD 11/10/2024 9:28 PM EST [facility] Blood Venous blood specimen / Unknown Venipuncture / Unknown 11/10/2024 6:06 AM EST 11/10/2024 8:03 AM EST Gloria Preston MD LAB BLOOD ORDERABLES Final Resu lt Performing Organization Address [facility]/ZIP Co de Phone Number [facility] [address] [place] [address], [place] [phone] * Thyroid stimulating hormone (11/10/2024 6:06 AM EST) [facility] TSH 1.57 0.40 - 4.00 mcIU/mL LAB CHEMISTRY METHOD 11/10/2024 9:51 PM EST [facility] Blood Venous blood specimen / Unknown Venipuncture / Unknown 11/10/2024 6:06 AM EST 11/10/2024 8:03 AM EST Gloria Preston MD LAB BLOOD ORDERABLES Final Resu lt [facility] [address] [place] [address], [place] [phone] * (ABNORMAL) CBC auto differential (11/10/2024 6:06 AM EST) [facility] WBC 6.0 4.8 - 10.8 K/[facility] LAB HEMETOLOGY METHOD 11/10/2024 8:44 AM EST [facility] RBC 3.80(L) 4.50 - 5.50 M/[facility] LAB HEMETOLOGY METHOD 11/10/2024 8:44 [...] lt [facility] [address] [place] [address], [place] [phone] * Magnesium (11/10/2024 6:06 AM EST) Pathologist [facility] Magnesium 2.0 1.9 - 2.6 mg/dL LAB CHEMISTRY METHOD 11/10/2024 9:04 AM [facility] Blood Venous blood specimen / Unknown Venipuncture / Unknown 11/10/2024 6:06 AM EST 11/10/2024 8:03 AM EST us Gloria Preston MD LAB BLOOD ORDERABLES Final Resu lt [facility] [address] [place] [address], [place] [phone] * (ABNORMAL) Basic metabolic panel (11/10/2024 6:06 AM EST) Pathologist [facility] Sodium 136 133 - 145 mmol/L LAB [...] lt [facility] [address] [place] [address], documented in this encounter Visit Diagnoses Diagnosis Encounter for other general examination documented in this encounter Care Teams Cooker Helper Relationship Specialty Start Date End Date Gloria Preston MD [address] [place] [address] PCP - General Hospitalist Medicine 11/05/24 documented as of this encounter
--- OUTSIDE RECORDS SUMMARY | 2025-01-13 12:47 | XMS_ITS | Encounter Summary ---
Author Organization [facility] Address [address] [place] [address] Care Team Providers Care Consumer Insight Manager Name Role Phone Gloria Preston MD Primary Care Provider [phone] Encounter Details Date Type Department Care Team (Late st Contact Info) Description 11/14/2024 Lab Requisition [facility] - Main Lab [address] [facility] [place] [address] Gloria Preston MD [address] [place] [phone] Encounter for other general examination Social History [...] AM EST) WBC 4.3(L) 4.8 - 10.8 K/[facility] LAB HEMETOLOGY METHOD 11/14/2024 10:05 AM [facility] LAB RBC 4.00(L) 4.50 - 5.50 M/mcL LAB HEMETOLOGY METHOD 11/14/2024 10:05 AM [facility] LAB Hemoglobin 13.0(L) 13.5 - 17.5 g/dL LAB HEMETOLOGY METHOD 11/14/2024 10:05 AM [facility] LAB Hematocrit 37.6(L) 42.0 - 54.0 % LAB HEMETOLOGY METHOD 11/14/2024 10:05 AM [facility] LAB MCV 93.5 79.0 - 98.0 FL LAB HEMETOLOGY METHOD 11/14/2024 10:05 AM [facility] LAB MCH 32.3(H) 27.0 - 32.0 pcg LAB HEMETOLOGY METHOD 11/14/2024 10:05 AM [facility] LAB MCHC 34.6 32.0 - 37.0 g/dL LAB HEMETOLOGY METHOD 11/14/2024 10:05 AM [facility] LAB RDW 12.4 11.0 - 15.0 % LAB HEMETOLOGY METHOD 11/14/2024 10:05 AM [facility] LAB Platelets 368 130 - 400 K/mcL LAB HEMETOLOGY METHOD 11/14/2024 10:05 AM [facility] LAB MPV 9.7 7.0 - 11.0 FL LAB HEMETOLOGY METHOD 11/14/2024 10:05 AM [facility] LAB NRBC 0.0 <1.0 % LAB HEMETOLOGY METHOD 11/14/2024 10:05 AM [facility] LAB NRBC Absolute 0.00 <0.10 K/mcL LAB HEMETOLOGY METHOD 11/14/2024 10:05 AM [facility] LAB Neutrophils Relative 76.1 % LAB HEMETOLOGY METHOD 11/14/2024 10:05 AM [facility] LAB Lymphocytes Relative 10.3 % LAB HEMETOLOGY METHOD 11/14/2024 10:05 AM [facility] LAB Monocytes Relative 11.0 % LAB HEMETOLOGY METHOD 11/14/2024 10:05 AM [facility] LAB Eosinophils Relative 1.2 % LAB HEMETOLOGY METHOD 11/14/2024 10:05 AM [facility] LAB Basophils Relative 0.9 % LAB HEMETOLOGY METHOD 11/14/2024 10:05 AM [facility] LAB Immature Granulocytes Relative 0.5 % LAB HEMETOLOGY METHOD 11/14/2024 10:05 AM [facility] LAB Neutrophils Absolute 3.26 1.50 - 7.00 K/mcL LAB HEMETOLOGY METHOD 11/14/2024 10:05 AM [facility] LAB Lymphocytes Absolute 0.44(L) 1.00 - 5.00 K/mcL LAB HEMETOLOGY METHOD 11/14/2024 10:05 AM [facility] LAB Monocytes Absolute 0.47 0.20 - 1.00 K/mcL LAB HEMETOLOGY METHOD 11/14/2024 10:05 AM [facility] LAB Eosinophils Absolute 0.05 0.00 - 0.50 K/mcL LAB HEMETOLOGY METHOD 11/14/2024 10:05 AM [facility] LAB Basophils Absolute 0.04 0.00 - 0.20 K/mcL LAB HEMETOLOGY METHOD 11/14/2024 10:05 AM [facility] LAB Immature Granulocytes Absolute 0.02 0.00 - 0.03 K/mcL LAB HEMETOLOGY METHOD 11/14/2024 10:05 AM [facility] LAB Blood Venous blood specimen / Unknown Venipuncture / Unknown 11/14/2024 6:36 AM EST 11/14/2024 8:21 AM EST us Gloria Preston MD LAB BLOOD ORDERABLES Final Resu lt [facility] [address] [place] [address], * (ABNORMAL) Basic metabolic panel (11/14/2024 6:36 AM EST) Sodium 135 133 - 145 mmol/L LAB CHEMISTRY METHOD 11/14/2024 10:43 AM [facility] LAB Potassium 4.0 3.5 - 5.5 mmol/L LAB CHEMISTRY METHOD 11/14/2024 10:43 AM [facility] LAB Chloride 101 96 - 110 mmol/L LAB CHEMISTRY METHOD 11/14/2024 10:43 AM [facility] LAB CO2 24 21 - 32 mmol/L LAB CHEMISTRY METHOD 11/14/2024 10:43 AM [facility] LAB Anion Gap 10 3 - 11 LAB CHEMISTRY METHOD 11/14/2024 10:43 AM [facility] LAB Glucose 86 70 - 100 mg/dL LAB CHEMISTRY METHOD 11/14/2024 10:43 AM [facility] BUN 22 5 - 25 mg/dL LAB CHEMISTRY METHOD 11/14/2024 10:43 AM [facility] LAB Creatinine 0.59(L) 0.70 - 1.30 mg/dL LAB CHEMISTRY METHOD 11/14/2024 10:43 AM [facility] LAB eGFR 96 >=60 mL/min/1. 73m2 LAB CHEMISTRY METHOD 11/14/2024 10:43 AM [facility] LAB Comment:Calculation based on the??Chronic Kidney Disease Epidemiology Collaboration (CKD-EPI) equation refit??without adjustment for race. BUN/Creatinine Ratio 37.3 LAB CHEMISTRY METHOD 11/14/2024 10:43 AM [facility] LAB Calcium 9.0 8.5 - 10.5 mg/dL LAB CHEMISTRY METHOD 11/14/2024 10:43 AM EST [facility] LAB Blood Venous blood specimen / Unknown Venipuncture / Unknown 11/14/2024 6:36 AM EST 11/14/2024 8:21 AM EST us Gloria Preston MD LAB BLOOD ORDERABLES Final Resu lt [facility] [address] [place] [address], documented in this encounter Visit Diagnoses Diagnosis Encounter for other general examination documented in this encounter Care Teams Consumer Insight Manager Relationship Specialty Start Date End Date Gloria Preston MD [address] [place] [phone] PCP - General Hospitalist Medicine 11/05/24 documented as of this encounter
--- OUTSIDE RECORDS SUMMARY | 2025-01-13 12:47 | XMS_ITS ---
Author Organization [facility] Address [address] [place] [address] Care Team Providers Care Commercial Production Editor Name Role Phone Robbie Kothari MD Primary Care Provider UnavailAna Damon Unavailable [phone] Allergies Allergen (clinical drug ingredient) Drug/Non Drug [...] 06/28/2024 Encounters Encounter Location Date Provider Diagnosis [facility] [address] [place] [address] 06/28/2024 Ana Hernandez Tinea unguium B35.1 ; [...] Reason: Provider Name:Ana garduno, 03/28/2025 11:15:00 AM, [address] [place] [address], [phone], Procedure Notes * Category Sub-Category Detail Notes [...] as necessary. Patient chooses, no pharmaceutical tx (48454) Progress Notes * Freeman ROCHADOB: 0 (84 yo M)Acc No.[id number]:06/28/2024 Progress Note Patient:?Freeman Rocha Provider:?Ana Hernandez DPM :1940???Age:84 Y???Sex:Male Lokesh e:06/28/2024 [id number] Pcp:Robbie Kothari MD Subjective: * Chief Complaints: [...] yes, walking. ?Marital status: . ?Occupation: Retired- [employer]. * Medications:?TakingAtorvasta tin Calcium 10 MG Tablet [...] as necessary. Patient chooses, no pharmaceutical tx (09079).? * Procedure Codes:?60747 DEBRI DE NAIL, 6 OR MORE, Modifiers: XS * Follow Up:?3 Months * Images: * Sign off status: Completed true * Provider:?Ana Hernandez, DPAntonio Date:? Generated for Chip andres/Awais/eTransmitting on:?01/13/2025 12:47 PM EDT History and Physical Notes * [...]
--- OUTSIDE RECORDS SUMMARY | 2025-01-13 12:47 | XMS_ITS | Encounter Summary ---
Author Organization [facility] Address [address] [place] [address] Care Team Providers Care Private Branch Exchange Operator Name Role Phone Gloria Preston MD Primary Care Provider [phone] Encounter Details Date Type Department Care Team (Late st Contact Info) Description 11/18/2024 Lab Requisition [facility] - Main Lab [address] [facility] [employer] [place] [address] Gloria Preston MD [address] [place] [address] Encounter for other general examination Social History [...] Final Resu lt Performing Organization Address [facility]/ZIP Co de Phone Number [facility] [address] [place] [address], [place] [phone] * Prolactin (11/18/2024 2:59 PM EST) Pathologist [facility] Prolactin 12.10 2.50 - 17.40 ng/mL LAB CHEMISTRY METHOD 11/18/2024 7:21 PM EST [facility] Blood Venous blood specimen / Unknown Venipuncture / Unknown 11/18/2024 2:59 PM EST 11/18/2024 3:36 PM EST us Gloria Preston MD LAB BLOOD ORDERABLES Final Resu lt Performing Organization Address [facility]/ZIP Co de Phone Number [facility] [address] [place] [address], [place] [phone] * (ABNORMAL) Magnesium (11/18/2024 2:59 PM EST) [facility] Magnesium 1.6(L) 1.9 - 2.6 mg/dL LAB CHEMISTRY METHOD 11/18/2024 7:07 PM EST [facility] Blood Venous blood specimen / Unknown Venipuncture / Unknown 11/18/2024 2:59 PM EST 11/18/2024 3:36 PM EST us Gloria Preston MD LAB BLOOD ORDERABLES Final Resu lt Performing Organization Address [facility]/ZIP Co de Phone Number [facility] [address] [place] [address], [place] [phone] * (ABNORMAL) Comprehensive metabolic panel (11/18/2024 2:59 [...] PM EST [facility] Alkaline Phosphatase 89 42 - 121 unit/L LAB CHEMISTRY METHOD 11/18/2024 7:21 PM EST [facility] Total Protein 6.5 6.0 - [...] lt [facility] [address] [place] [address], [place] [phone] documented in this encounter Visit Diagnoses Diagnosis Encounter for other general examination documented in this encounter Care Teams Private Branch Exchange Operator Relationship Specialty Start Date End Date Gloria Preston MD [address] [place] [phone] PCP - General Hospitalist Medicine 11/05/24 documented as of this encounter
--- OUTSIDE RECORDS SUMMARY | 2025-01-13 12:47 | XMS_ITS ---
Author Organization [facility] Address [address] [place] [address] Care Team Providers Care Associate Professor Of Geography Name Role Phone Robbie Kothari MD Primary Care Provider UnavailAna Damon Unavailable [phone] Allergies Allergen (clinical drug ingredient) Drug/Non Drug [...] 025 Encounters Encounter Location Date Provider Diagnosis [facility] [address] [place] [address] 09/27/2024 Ana Hernandez Tinea unguium B35.1 ; [...] Provider Name:Ana garduno, 03/28/2025 11:15:00 AM, [address] [place] [address], [phone], Procedure Notes * Category Sub-Category Detail Notes [...] use of a nail nipper and/or dremel-type snag grinder, to a more viable healthy nail [...] to maintain effectiveness in symptomatic relief - 05321 Progress Notes * Freeman ROCHADOB: 0 (84 yo M)Acc No.[id number]:09/27/2024 Progress Note Patient:?Freeman ROCHA Provider:?Ana Hernandez DPM :1940???Age:84 Y???Sex:Male Lokesh e:09/27/2024 Address:[id number] Pcp:Robbie Kothari MD Subjective: * Chief Complaints: [...] use of a nail nipper and/or dremel-type snag grinder, to a more viable healthy nail [...] to maintain effectiveness in symptomatic relief - 44713.? * Procedure Codes:?10660 DEBRI DE NAIL, 6 OR MORE, Modifiers: XS * Follow Up:?3 Months * Images: * Sign off status: Completed true * Provider:Naresh Hernandez, KATERINA Date:? Generated for Chip andres/Awais/Tiffanie on:?01/13/2025 12:47 PM EDT History and Physical [...]
[2025-01-13] MEDS: 0.9 % Sodium Chloride 1,000 ML 999 ML IV (13:35)
[2025-01-13 14:02] LABS: Procalcitonin 0.04 ng/mL
[2025-01-13 14:19] LABS: Lactic Acid 0.8 mmol/L (0.5-2.0)
--- NOTE | 2025-01-13 14:24 | MHC.EDTECH ---
EKG completed at 1159. Patient resting, states he is comfortable. Visitor at bedside. Call baca placed within reach.
--- NOTE | 2025-01-13 15:08 | PC.NURSE ---
Pt states he did not feel to void. Bladder scan done. Straight cath completed. Pt also had blood tinged sputum. states this is worse than his previous episode
[2025-01-13 15:13] LABS: Appearance Urine Clear; Color Urine Yellow; Glucose Urine UA Negative (Negative); Leukocyte Esterase Urine Negative (Negative); Nitrite Urine Negative (Negative); Urine Blood Negative (Negative); Urine Ketones Negative (Negative); Urine Protein Negative (Neg-Trace)
[2025-01-13] MEDS: Albuterol/Iprat 2.5/0.5MG 3 ML AMPUL.NEB INHALE (16:12)
[2025-01-13] MEDS: Sodium Chloride 3 % Inhalation 15 ML VIAL.NEB 4 ML INHALE (16:14)
--- NOTE | 2025-01-13 16:16 | P.HPHOSP_ITS ---
History of Present Illness Date of Service: 01/13/25 Attending physician on admission: Tommy Rodriguez Chief Complaint: Weakness, cough Pt is an 84-year-old male with a PMH significant for?recent intraparenchymal hemorrhage with associated autonomic dysfunction, bronchiectasis on chronic azithromycin 3x per week, HLD, BPH, and mood disorder who presents to the ED with?increased weakness and difficulty ambulating x1 week. Pt was recently briefly hospitalized from 12/30-12/31 for concerns of pneumonia. Pt also was noted to have right wrist pain, swelling, and erythema and was diagnosed with pseudogout. Pt was discharged home on Augmentin b.i.d. x6 days for pneumonia and prednisone taper for pseudogout. Pt is alert and oriented to self only and has both expressive aphasia and significant short-term memory loss. HPI is thus obtained from who was at bedside. reports pt was doing okay since last discharge up until 1 week ago when he began experience increasing confusion, fatigue, and weakness. Yesterday pt was so weak that he was unable to get out of his recliner without assistance, and this morning was unable to get off of the toilet. This morning pt was also noted to cough up sputum that was tinged with blood. In the ED pt was noted to have multiple episodes of hemoptysis were sputum was comprised almost entirely of blood. reports pt has had chronic cough for the past 5+ years, but never had such an episode of hemoptysis before. Pt himself denies any acute medical complaints. No SOB or difficulty breathing. Denies chest pain/pressure, palpitations. Denies right wrist pain. No chest pain/pressure, palpitations. Denies lightheadedness or dizziness. In the ED pt was tachypneic up to 23, vitals otherwise stable and WNL. Satting at 97% on RA. Labs were significant for hyponatremia of 130 and CRP 13.61. No leukocytosis. Stable H&H. No significant electrolyte abnormalities. Renal function WNL. Lactic acid WNL. Hepatic function baseline. Troponin 3.3. BNP 53. UA negative for UTI. Tested negative for flu, COVID, RSV. CXR showed extensive bilateral lung scarring with probable new airspace opacities at right lung \apex in left lung base suspicious for pneumonia. CT?of head negative for acute intracranial hemorrhage, though did show extensive white matter disease likely related to small-vessel disease. 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 Minor who suggested admitting the pt to the hospital and treating empirically with vancomycin and Zosyn. EKG demonstrated sinus rhythm with first-degree AV block. Pt was treated in the ED with IVF, albuterol, vanc and Zosyn. Pt is admitted to the hospital for treatment and further evaluation hemoptysis and generalized weakness in the setting of pneumonia that failed outpatient therapy. Review of Systems 2 Review of Systems: Negative except for that which is stated in the HPI. [facility] Medical History COPD (chronic obstructive pulmonary disease) Mycobacterial disease Hernia HLD (hyperlipidemia) BPH (benign prostatic hyperplasia) Bronchiectasis Hemoptysis Pulmonary nodules Cough Abnormal chest x-ray Surgical History Hx of colonoscopy Social History Household Members: Significant Other Housing: House Do you presently have visiting nurse or other home services: No Alcohol intake: former Patient Tobacco Use Status: Former Tobacco user Tobacco use type: Cigarette Years Smoked: 20 years Advance Directives: Yes Advance Directives Information Provided: Yes Advance Directives on File: No Do you have a plan to hurt others: No Plan service: Yes Meds Allergies Allergy/AdvReac Type Severity Reaction Status Date / Time latex [LATEX] Allergy Intermediate RASH Verified 01/13/25 11:23 Band-Aid Allergy Severe rash Uncoded 01/13/25 11:23 neosporin Allergy Severe rash Uncoded 01/13/25 11:23 Active Medications: Current Medications Piperacillin Sod/Tazobactam (Sod 4.5 gm/ Sodium Chloride) 100 mls @ 200 mls/hr IV ONCE ONE Stop: 01/13/25 16:22 Vancomycin HCl 1,000 mg/Vancomycin HCl 750 mg/ Sodium Chloride 535 mls @ 267.5 mls/hr IV ONCE ONE Stop: 01/13/25 17:52 Home Medications ?Medication ?Instructions ?Recorded ?Confirmed ?Last Taken ?Type atorvastatin 10 mg tablet 10 mg PO DAILY 11/06/20 12/30/24 12/29/24 History nebulizers 10/17/22 Unknown History azithromycin 500 mg tablet 500 mg PO MOWEFR 12/30/24 12/30/24 12/28/24 History Physical Exam 2 Vital Signs and Narrative: Vital Signs: Last Vital Signs Temp 98.4 F 01/13/25 16:12 Pulse 89 01/13/25 16:13 Resp 13 01/13/25 16:13 BP 135/77 01/13/25 16:12 Pulse Ox 96 01/13/25 16:12 O2 Del Method Room Air 01/13/25 16:12 BMI result Body Mass Index 18.6 General: Alert and oriented to self only, not to time, place, or situation. In no acute distress Resp: CTA bilaterally. Hemoptysis as pictured below. CVS: S1, S2, RRR GI: +BS, NT, no distention Skin: Warm, dry Neuro: Cranial nerves II-XII grossly intact bilaterally. Motor grossly intact bilaterally. Global and symmetric weakness Extremities: No edema. Right wrist with mild swelling, nontender Psych: Pleasantly confused Results Labs 01/13/25 11:57 01/13/25 11:57 Labs: Laboratory Results - last 24 hr 01/13/25 01/13/25 01/13/25 11:57 11:59 12:00 MCV 91.9 MCH 32.3 MCHC 35.1 RDW 13.6 Plt Count 219 MPV 9.7 Immature Gran % (Auto) 0.4 Neut % (Auto) 70.4 Lymph % (Auto) 12.2 L [place] % (Auto) 14.5 H Eos % (Auto) 1.6 Baso % (Auto) 0.9 Lymph # (Auto) 0.9 L [place] # (Auto) 1.1 Eos # (Auto) 0.1 Baso # (Auto) 0.1 Abs Immat Gran (auto) 0.03 Absolute Neuts (auto) 5.3 Absolute Nucleated RBC 0.000 Nucleated RBC % (auto) 0.0 Hold Blue Top SEE NOTE Anion Gap 14 Estim Creat Clear Calc 81.7 Estimated GFR > 60 Random Glucose 83 Lactic Acid Calcium 9.4 Magnesium 1.8 Total Bilirubin 1.0 Direct Bilirubin 0.3 AST 28 ALT 12 Alkaline Phosphatase 70 C-Reactive Protein 13.61 H B-Natriuretic Peptide 53 Total Protein 7.4 Albumin 3.6 Procalcitonin 0.04 Urine Color Urine Appearance Urine pH Ur Specific Randolph Urine Protein Urine Glucose (UA) Urine Ketones Urine Blood Urine Nitrite Ur Leukocyte Esterase Influenza Type A (PCR) NEGATIVE Influenza Type B (PCR) NEGATIVE RSV RNA Qual (PCR) NEGATIVE SARS-CoV-2 RNA (RT-PCR) NEGATIVE 01/13/25 01/13/25 13:59 15:05 MCV MCH MCHC RDW Plt Count MPV Immature Gran % (Auto) Neut % (Auto) Lymph % (Auto) [place] % (Auto) Eos % (Auto) Baso % (Auto) Lymph # (Auto) [place] # (Auto) Eos # (Auto) Baso # (Auto) Abs Immat Gran (auto) Absolute Neuts (auto) Absolute Nucleated RBC Nucleated RBC % (auto) Hold Blue Top Anion Gap Estim Creat Clear Calc Estimated GFR Random Glucose Lactic Acid 0.8 Calcium Magnesium Total Bilirubin Direct Bilirubin AST ALT Alkaline Phosphatase C-Reactive Protein B-Natriuretic Peptide Total Protein Albumin Procalcitonin Urine Color Yellow Urine Appearance Clear Urine pH 6.0 Ur Specific Randolph 1.020 Urine Protein Negative Urine Glucose (UA) Negative Urine Ketones Negative Urine Blood Negative Urine Nitrite Negative Ur Leukocyte Esterase Negative Influenza Type A (PCR) Influenza Type B (PCR) RSV RNA Qual (PCR) SARS-CoV-2 RNA (RT-PCR) Imaging Radiologist's Impressions: Impressions Head CT 01/13/25 12:15 IMPRESSION: No acute intracranial hemorrhage. Extensive White matter disease likely related to small vessel disease. Electronically signed by: Lázaro Ely MD 01/13/2025 12:35 PM EDT RP Chest X-Ray 01/13/25 12:22 IMPRESSION: Extensive bilateral lung scarring. Probable new airspace opacities at the right lung apex and at the left lung base, suspicious for pneumonia. Follow-up is recommended. Electronically signed by: Robbie Rosales MD 01/13/2025 12:28 PM EDT RP Assessment and Plan (1) Hemoptysis: Status: Acute (2) Pneumonia: Status: Acute Plan Pt is an 84-year-old male with a PMH significant for?recent intraparenchymal hemorrhage with associated autonomic dysfunction, bronchiectasis on chronic azithromycin 3x per week, HLD, BPH, and mood disorder who presents to the ED with?increased weakness and difficulty ambulating x1 week. Pt is admitted to the hospital for treatment and further evaluation hemoptysis and generalized weakness in the setting of pneumonia that failed outpatient therapy. Hemoptysis in the setting of pneumonia CXR showing probable new airspace opacities at right lung apex and left lung base Pt with hx of bronchiectasis on chronic azithromycin 3x per week Previously treated on 12/30-01/05 with amoxicillin for pneumonia No sepsis: 1 episode of tachypnea, but no fever, tachycardia, or leukocytosis; lactic acid WNL Will empirically treat with vancomycin and Zosyn per pulmonology, started 01/13/2025 Pulmonology consult Monitor H&H Monitor respiratory status Generalized weakness Pt unable to stand or ambulate the past few days In the setting of above PT evaluation Hx of pseudogout of right wrist Recently treated with steroid taper which ended a few days ago Pt currently asymptomatic Hyponatremia, mild Has been chronic Follow BMP HLD Continue statin DNR/DNI Attending:?Dr. Rodriguez DVT Prophylaxis: Pneumatic compression due to hemoptysis Pt will require a hospitalization of at least two nights for treatment of?hemoptysis and generalized weakness in the setting of pneumonia that failed outpatient therapy. Given that pt has been chronically on azithromycin and recently on a course of Augmentin, pt will need hospital level care for administration of IV antibiotics, close monitoring of labs, and specialist consultation with pulmonology for possible additional workup. Quality Stroke Does the patient have a stroke diagnosis?: No VTE Prior VTE?: No VTE Risk Level:: Medical - moderate - high VTE Device Contraindication: N/A - Device Ordered VTE Drug Contraindication: Treatment Not Indicated
[2025-01-13] MEDS: Piperacillin Sodium/Tazobactam 4.5 GM in 0.9 % Sodium Chloride 100 ML IV ×2 (16:26→23:10)
[2025-01-13] MEDS: vancomycin HCL 1,000 MG, vancomycin HCL 750 MG in 0.9 % Sodium Chloride 500 ML 267.5 MG IV (17:15)
--- NOTE | 2025-01-13 18:13 | PHA.MEDREC ---
Addendum entered by Zhanna Martinez RPh 01/13/25 18:29: Reviewed by [facility] Original Note: Pharmacy Consult ? Medication Reconciliation Pharmacy has completed the medication reconciliation. Spoke with patient and patients daughter at bedside who was able to confirm her dads medications. Patient or daughter were not sure if the patient was still taking Midorodine 10mg tabs, the daughter called her mom and the patients and she was able to confirm the patient is not taking that anymore. The and daughter confirmed the Azithromycin 500mg tabs MOWEFR and confirmed the patient took one this morning (01/13).
[2025-01-13] MEDS: Albuterol Sulfate (0.083%) 2.5 MG/3 ML VIAL.NEB INHALE (19:43)
[2025-01-14] MEDS: 0.9 % Sodium Chloride Flush 3 ML SYRINGE IVFLUSH ×4 (01:06→22:26)
[2025-01-14 03:26] VITALS: BP 127/69; PULSE 86; RESP 16; TEMP 37; O2SAT 93
[2025-01-14] MEDS: Piperacillin Sodium/Tazobactam 4.5 GM in 0.9 % Sodium Chloride 100 ML IV ×4 (05:21→22:25)
[2025-01-14] MEDS: vancomycin HCL 750 MG in 0.9 % Sodium Chloride 250 ML 265 MG IV (06:17)
[2025-01-14 06:36] LABS: Anion Gap 12 (12-20); Blood Urea Nitrogen 11 mg/dL (9-16); Calcium 8.8 mg/dL (8.4-10.2); Carbon Dioxide 24 mmol/L (22-29); Chloride 98 mmol/L (96-108); Estimated Glomerular Filt Rate > 60; Glucose Random 95 mg/dL (60-115); Sodium 130 mmol/L (135-145)
[2025-01-14 07:45] VITALS: PULSE 85; RESP 18; O2SAT 94
[2025-01-14] MEDS: Albuterol Sulfate (0.083%) 2.5 MG/3 ML VIAL.NEB INHALE ×2 (07:45→19:49)
[2025-01-14 07:50] VITALS: BP 130/72; PULSE 68; RESP 16; TEMP 37.1; O2SAT 95
[2025-01-14] MEDS: Azithromycin 500 MG in 0.9 % Sodium Chloride 250 ML 125 MG IV (08:38)
[2025-01-14] MEDS: Atorvastatin Calcium 10 MG TABLET PO (08:40)
--- NOTE | 2025-01-14 11:01 | HO.PM.IMPN ---
Subjective Subjective Date of Service: 01/14/25 Interval History: looks good feels comfortable no further hemoptysis overnight Review of Systems Review of Systems: Yes all other systems are reviewed and are negative Physical Exam Vital Signs: Vital Signs: Last Vital Signs Temp 98.8 F 01/14/25 07:50 Pulse 68 01/14/25 07:50 Resp 16 01/14/25 07:50 BP 130/72 01/14/25 07:50 Pulse Ox 95 01/14/25 07:50 O2 Del Method Room Air 01/14/25 07:50 BMI result Body Mass Index 18.5 Const: Other: Constitutional : Awake, interactive, not in distress Neck : Normal inspection, Supple Cardiovascular : RRR, no JVP, no lower extremity edema Respiratory : fair bilateral air entry, no crackles, wheezes or rhonchi Gastrointestinal: soft, lax, Normal bowel sounds, Non tender Skin : Warm, Dry Neurological : Alert & oriented x3, mild right sided weakness upper more than lower extremities Objective Data Active Medications Acetaminophen (Acetaminophen 325 Mg Tablet) 650 mg PO Q6H PRN PRN Reason: Pain, Mild 1-3,fever,headache Albuterol Sulfate (Albuterol Sulfate (0.083%) 2.5 Mg/3 Ml Vial.Neb) 2.5 mg INHALE BID [facility] Last Admin: 01/14/25 07:45 Dose: 2.5 mg Documented By: NANCY Atorvastatin Calcium (Atorvastatin Calcium 10 Mg Tablet) 10 mg PO DAILY [facility] Last Admin: 01/14/25 08:40 Dose: 10 mg Documented By: VERONIKA Calcium Carbonate (Calcium Carbonate 750 Mg Tab.Chew) 750 mg PO Q4H PRN PRN Reason: Heartburn Piperacillin Sod/Tazobactam (Sod 4.5 gm/ Sodium Chloride) 100 mls @ 200 mls/hr IV Q6H [facility] Last Infusion: 01/14/25 05:53 Dose: Infused Documented By: NHI Vancomycin HCl 750 mg/ Sodium (Chloride) 265 mls @ 265 mls/hr IV Q12H [facility] Last Infusion: 01/14/25 07:17 Dose: Infused Documented By: VERONIKA Azithromycin 500 mg/ Sodium (Chloride) 250 mls @ 125 mls/hr IV Q24H [facility] Last Admin: 01/14/25 08:38 Dose: 125 mls/hr Documented By: VERONIKA Magnesium Hydroxide (Milk Of Magnesia 30 Ml Oral.Susp) 30 ml PO DAILY PRN PRN Reason: Constipation Melatonin (Melatonin 3 Mg Tablet) 6 mg PO BEDTIME PRN PRN Reason: Insomnia Pharmacy Consult (Consult Rx Vancomycin Dosing) 1 each MISCELLANE DAILY PRN PRN Reason: Consult order Sodium Chloride (0.9 % Sodium Chloride Flush 3 Ml Syringe) [facility] Last Admin: 01/14/25 08:38 Dose: 3 ml Documented By: VERONIKA Labs 01/13/25 11:57 01/14/25 05:49 Labs: Laboratory Results - last 24 hr 01/13/25 01/13/25 01/13/25 11:57 11:59 12:00 MCV 91.9 MCH 32.3 MCHC 35.1 RDW 13.6 Plt Count 219 MPV 9.7 Immature Gran % (Auto) 0.4 Neut % (Auto) 70.4 Lymph % (Auto) 12.2 L [place] % (Auto) 14.5 H Eos % (Auto) 1.6 Baso % (Auto) 0.9 Lymph # (Auto) 0.9 L [place] # (Auto) 1.1 Eos # (Auto) 0.1 Baso # (Auto) 0.1 Abs Immat Gran (auto) 0.03 Absolute Neuts (auto) 5.3 Absolute Nucleated RBC 0.000 Nucleated RBC % (auto) 0.0 Hold Purple Top Hold Blue Top SEE NOTE Anion Gap 14 Estim Creat Clear Calc 81.7 Estimated GFR > 60 Random Glucose 83 Lactic Acid Calcium 9.4 Magnesium 1.8 Total Bilirubin 1.0 Direct Bilirubin 0.3 AST 28 ALT 12 Alkaline Phosphatase 70 C-Reactive Protein 13.61 H B-Natriuretic Peptide 53 Total Protein 7.4 Albumin 3.6 Procalcitonin 0.04 Urine Color Urine Appearance Urine pH Ur Specific [place] Urine Protein Urine Glucose (UA) Urine Ketones Urine Blood Urine Nitrite Ur Leukocyte Esterase Ur Random Sodium Influenza Type A (PCR) NEGATIVE Influenza Type B (PCR) NEGATIVE RSV RNA Qual (PCR) NEGATIVE SARS-CoV-2 RNA (RT-PCR) NEGATIVE 01/13/25 01/13/25 01/14/25 13:59 15:05 05:49 MCV MCH MCHC RDW Plt Count MPV Immature Gran % (Auto) Neut % (Auto) Lymph % (Auto) [place] % (Auto) Eos % (Auto) Baso % (Auto) Lymph # (Auto) [place] # (Auto) Eos # (Auto) Baso # (Auto) Abs Immat Gran (auto) Absolute Neuts (auto) Absolute Nucleated RBC Nucleated RBC % (auto) Hold Purple Top SEE NOTE Hold Blue Top Anion Gap 12 Estim Creat Clear Calc 80.0 Estimated GFR > 60 Random Glucose 95 Lactic Acid 0.8 Calcium 8.8 D Magnesium Total Bilirubin Direct Bilirubin AST ALT Alkaline Phosphatase C-Reactive Protein B-Natriuretic Peptide Total Protein Albumin Procalcitonin Urine Color Yellow Urine Appearance Clear Urine pH 6.0 Ur Specific [place] 1.020 Urine Protein Negative Urine Glucose (UA) Negative Urine Ketones Negative Urine Blood Negative Urine Nitrite Negative Ur Leukocyte Esterase Negative Ur Random Sodium Influenza Type A (PCR) Influenza Type B (PCR) RSV RNA Qual (PCR) SARS-CoV-2 RNA (RT-PCR) 01/14/25 09:54 MCV MCH MCHC RDW Plt Count MPV Immature Gran % (Auto) Neut % (Auto) Lymph % (Auto) [place] % (Auto) Eos % (Auto) Baso % (Auto) Lymph # (Auto) [place] # (Auto) Eos # (Auto) Baso # (Auto) Abs Immat Gran (auto) Absolute Neuts (auto) Absolute Nucleated RBC Nucleated RBC % (auto) Hold Purple Top Hold Blue Top Anion Gap Estim Creat Clear Calc Estimated GFR Random Glucose Lactic Acid Calcium Magnesium Total Bilirubin Direct Bilirubin AST ALT Alkaline Phosphatase C-Reactive Protein B-Natriuretic Peptide Total Protein Albumin Procalcitonin Urine Color Urine Appearance Urine pH Ur Specific [place] Urine Protein Urine Glucose (UA) Urine Ketones Urine Blood Urine Nitrite Ur Leukocyte Esterase Ur Random Sodium 93.0 Influenza Type A (PCR) Influenza Type B (PCR) RSV RNA Qual (PCR) SARS-CoV-2 RNA (RT-PCR) Microbiology Microbiology Results: Microbiology 01/13/25 19:56 Gram Stain - Final Sputum - Expectorated Assessment and Plan (1) Hemoptysis: Status: Acute (2) Pneumonia: Status: Acute (3) Bronchiectasis: Status: Acute Plan Pt is an 84-year-old male with a PMH significant for?recent intraparenchymal hemorrhage with associated autonomic dysfunction, bronchiectasis on chronic azithromycin 3x per week, HLD, BPH, and mood disorder who presents to the ED with?increased weakness and difficulty ambulating x1 week. Pt is admitted to the hospital for treatment and further evaluation hemoptysis and generalized weakness in the setting of pneumonia that failed outpatient therapy. Hemoptysis in the setting of pneumonia chronic findings on CXR and CT of chest hx of bronchiectasis on chronic azithromycin 3x per week pending cultures empirically treat with Azithromycin and Zosyn, started 01/13/2025 DC Vancomycin Pulmonology consult Monitor respiratory status Generalized weakness PT evaluation Hx of pseudogout of right wrist Recently treated with steroid taper which ended a few days ago Pt currently asymptomatic Hyponatremia, mild Has been chronic Follow BMP HLD Continue statin DNR/DNI DVT Prophylaxis: Pneumatic compression due to hemoptysis Pt will require a hospitalization of overnight for treatment of?hemoptysis and generalized weakness in the setting of pneumonia that failed outpatient therapy. Given that pt has been chronically on azithromycin and recently on a course of Augmentin, pt will need hospital level care for administration of IV antibiotics, close monitoring of labs, and specialist consultation with pulmonology for possible additional workup. Quality Stroke Does the patient have a stroke diagnosis?: No VTE Prior VTE?: No VTE Risk Level:: Medical - moderate - high VTE Device Contraindication: N/A - Device Ordered VTE Drug Contraindication: Treatment Not Indicated
--- NOTE | 2025-01-14 12:23 | P.CONPL_ITS ---
History of Present Illness History of Present Illness Consult date: 01/14/25 Chief complaint: Hemoptysis Narrative: 84-year-old gentleman with underlying bronchiectasis and MAC, but also previously growing Klebsiella in sputum admitted on 01/13/2025 with worsening neurologic symptoms reminiscent of his recent stroke, but also noted to have small volume hemoptysis, treated with empiric broad-spectrum antibiotics with repeat sputum culture pending. Patient states that since his admission her only had minimal amount of hemoptysis. His respiratory status remained stable. Review of Systems 2 Cardiovascular: Cardiovascular: Denies chest pain at rest, Denies chest pain with activity, Denies dyspnea and Denies dyspnea on exertion Respiratory: Respiratory: Reports cough, Reports hemoptysis (Small amount), Denies dyspnea, Denies dyspnea on exertion and Denies wheezing Allergic/Immunologic: Allergic/Immunologic: Denies wheezing PMFSH Past Medical History Medical History COPD (chronic obstructive pulmonary disease) Mycobacterial disease Hernia HLD (hyperlipidemia) BPH (benign prostatic hyperplasia) Bronchiectasis Hemoptysis Pulmonary nodules Cough Abnormal chest x-ray Surgical History Surgical History Hx of colonoscopy Social History Social History Household Members: Spouse Housing: House Do you presently have visiting nurse or other home services: Yes Alcohol intake: former Patient Tobacco Use Status: Former Tobacco user Tobacco use type: Cigarette Years Smoked: 20 years Smoked in Last 30 Days: No Use of substances other than those prescribed or required for medical reasons: No Currently Displaying Signs/Symptoms of Drug Intoxication Withdrawal: No Have you been hit, kicked, punched, or otherwise hurt by someone within the past year? If so, by whom?: No Do you feel safe in your current relationship?: Yes Is there a partner from a previous relationship who is making you feel unsafe now?: No Are you made to feel afraid or neglected: No Advance Directives: No (yes, not on file won't file form without date) Advance Directives Information Provided: No Advance Directives on File: No Do you have a plan to hurt others: No Plan Recently lost weight without trying: Unsure Nutrition Risks: No Nutritional Risk service: Yes Meds Allergies Allergy/AdvReac Type Severity Reaction Status Date / Time latex [LATEX] Allergy Intermediate RASH Verified 01/13/25 11:23 Band-Aid Allergy Severe rash Uncoded 01/13/25 11:23 neosporin Allergy Severe rash Uncoded 01/13/25 11:23 Active Medications: Current Medications Acetaminophen (Acetaminophen 325 Mg Tablet) 650 mg PO Q6H PRN PRN Reason: Pain, Mild 1-3,fever,headache Albuterol Sulfate (Albuterol Sulfate (0.083%) 2.5 Mg/3 Ml Vial.Neb) 2.5 mg INHALE BID [facility] Last Admin: 01/14/25 07:45 Dose: 2.5 mg Atorvastatin Calcium (Atorvastatin Calcium 10 Mg Tablet) 10 mg PO DAILY [facility] Last Admin: 01/14/25 08:40 Dose: 10 mg Calcium Carbonate (Calcium Carbonate 750 Mg Tab.Chew) 750 mg PO Q4H PRN PRN Reason: Heartburn Piperacillin Sod/Tazobactam (Sod 4.5 gm/ Sodium Chloride) 100 mls @ 200 mls/hr IV Q6H [facility] Last Infusion: 01/14/25 11:52 Dose: Infused Azithromycin 500 mg/ Sodium (Chloride) 250 mls @ 125 mls/hr IV Q24H [facility] Last Infusion: 01/14/25 10:40 Dose: Infused Magnesium Hydroxide (Milk Of Magnesia 30 Ml Oral.Susp) 30 ml PO DAILY PRN PRN Reason: Constipation Melatonin (Melatonin 3 Mg Tablet) 6 mg PO BEDTIME PRN PRN Reason: Insomnia Sodium Chloride (0.9 % Sodium Chloride Flush 3 Ml Syringe) 3 ml IVFLUSH QSHIFT [facility] Last Admin: 01/14/25 08:38 Dose: 3 ml Home Medications ?Medication ?Instructions ?Recorded ?Confirmed ?Last Taken ?Type atorvastatin 10 mg tablet 10 mg PO DAILY 11/06/20 01/13/25 01/13/25 History nebulizers 06/30/22 Unknown History azithromycin 500 mg tablet 500 mg PO MOWEFR 12/30/24 01/13/25 01/13/25 History Physical Exam 2 Vital Signs: Vital Signs: Last Vital Signs Temp 98.8 F 01/14/25 07:50 Pulse 68 01/14/25 07:50 Resp 16 01/14/25 07:50 BP 130/72 01/14/25 07:50 Pulse Ox 95 01/14/25 07:50 O2 Del Method Room Air 01/14/25 07:50 BMI result Body Mass Index 18.5 Const: General: no acute distress, alert and awake Eyes: Sclerae: sclerae normal EOM: EOMs intact bilaterally Neck: Neck: Yes no lymphadenopathy, Yes trachea midline and Yes supple Resp: Effort & Inspection: normal respiratory effort and no respiratory distress Auscultation: clear to auscultation bilaterally Cardio: Rate: regular rate Rhythm: regular rhythm Heart sounds: no gallops, no murmurs and no rubs GI: Palpation (GI): Soft to palpation and Other GI palpation findings present ( Nontender) Auscultation: normal bowel sounds Extrem: General: Yes no pedal edema, No clubbing and No cyanosis Results Laboratory Findings 01/13/25 11:57 01/14/25 05:49 Abnormal lab findings: Abnormal Labs 01/13/25 01/14/25 11:57 05:49 RBC 4.21 L Hgb 13.6 L Hct 38.7 L Lymph % (Auto) 12.2 L [place] % (Auto) 14.5 H Lymph # (Auto) 0.9 L Sodium 130 L 130 L C-Reactive Protein 13.61 H Microbiology: Microbiology 01/13/25 19:56 Sputum - Expectorated Gram Stain - Final 01/13/25 19:56 Sputum - Expectorated Sputum Culture - Preliminary Culture in progress. Assessment and Plan (1) Bronchiectasis: Qualifiers: Bronchiectasis type: uncomplicated Qualified Code(s): J47.9 - Bronchiectasis, uncomplicated Status: Acute (2) Hemoptysis: Status: Acute (3) Mycobacterial disease: Status: Acute Plan Impression: 84-year-old gentleman with underlying known bronchiectasis and MAC admitted with what appears to be exacerbation of underlying bronchiectasis with small volume hemoptysis, now subsiding. Recommendations: Agree with empiric broad-spectrum antibiotics while respiratory cultures are pending. Appears to be at baseline respiratory status. Would consider monitoring for next 24-48 hours, if no further hemoptysis or resistant organisms noted, may continue outpatient therapy with follow-up with his poultry inspector (Dr. Minor) for consideration of suppressive or intention to cure treatments. Procedures Date of Service Date of Service: 01/14/25
[2025-01-14 15:15] VITALS: BP 104/59; PULSE 87; RESP 17; TEMP 36.6; O2SAT 96
[2025-01-14 16:28] LABS: Vancomycin Random 9.3 mcg/mL (15-20)
[2025-01-14 17:18] LABS: Osmolality Urine 380 mosm/kg (373-1093)
[2025-01-14 19:38] VITALS: BP 107/56; PULSE 94; RESP 17; TEMP 36.8; O2SAT 94
[2025-01-14 19:49] VITALS: PULSE 92; RESP 14; O2SAT 96
[2025-01-15 03:23] VITALS: BP 141/72; PULSE 87; RESP 18; TEMP 37; O2SAT 93
[2025-01-15] MEDS: Piperacillin Sodium/Tazobactam 4.5 GM in 0.9 % Sodium Chloride 100 ML IV ×4 (05:10→23:33)
[2025-01-15 06:16] LABS: MANUAL DIFF FLAG NO
[2025-01-15 06:18] LABS: Basophils Absolute Auto 0.1 X10*3/uL (0.0-0.2); Eosinophils Absolute Auto 0.3 X10*3/uL (0.0-0.4); Eosinophils Percent Auto 6.8 % (0-4); Hematocrit 30.1 % (42.0-52.0); Hemoglobin 10.8 g/dl (14.0-18.0); Imm Gran Abs Auto 0.03 X10*3/uL (0.00-0.03); Imm Gran Pct Auto 0.6 % (0.0-0.4); Lymphocytes Absolute Auto 0.8 X10*3/uL (1.2-4.9); Lymphocytes Percent Auto 15.4 % (20-40); Mean Corpuscular HGB Conc 35.9 g/dl (31.0-36.0); Mean Corpuscular Hemoglobin 32.4 pg (27.0-33.0); Mean Corpuscular Volume 90.4 fL (80.0-98.0); Mean Platelet Volume 9.5 fL (9.4-12.4); Monocytes Absolute Auto 0.6 X10*3/uL (0.1-1.2); Neutrophils Absolute Auto 3.2 x10*3/uL (2.0-8.3); Neutrophils Percent Auto 63.2 % (45-73); Platelet Count 212 X10*3/uL (160-400); Red Blood Count 3.33 X10*6/uL (4.60-5.80); Red Cell Distribution Width 13.3 % (11.0-16.0)
[2025-01-15 06:35] LABS: Anion Gap 14 (12-20); Blood Urea Nitrogen 12 mg/dL (9-16); Calcium 8.7 mg/dL (8.4-10.2); Carbon Dioxide 24 mmol/L (22-29); Chloride 101 mmol/L (96-108); Creatinine Clr Calc Pharmacy 76.6; Estimated Glomerular Filt Rate > 60; Glucose Random 93 mg/dL (60-115); Potassium 3.8 mmol/L (3.3-5.1); Sodium 135 mmol/L (135-145)
[2025-01-15 07:28] VITALS: PULSE 81; RESP 18; O2SAT 96
[2025-01-15] MEDS: Albuterol Sulfate (0.083%) 2.5 MG/3 ML VIAL.NEB INHALE ×2 (07:28→19:40)
[2025-01-15 07:40] VITALS: BP 133/71; PULSE 87; RESP 16; TEMP 36.4; O2SAT 95
[2025-01-15] MEDS: Atorvastatin Calcium 10 MG TABLET PO (09:57)
[2025-01-15] MEDS: Azithromycin 500 MG in 0.9 % Sodium Chloride 250 ML 125 MG IV (10:50)
[2025-01-15] MEDS: 0.9 % Sodium Chloride Flush 3 ML SYRINGE IVFLUSH ×3 (10:59→23:36)
--- NOTE | 2025-01-15 12:37 | MHC.CM.PN ---
CM MET WITH PT AND AT BEDSIDE PT LIVES AT HOME AND HIS ASSISTS HIM NEEDED HE IS ACTIVE WITH [facility] FOR PT/OT/SN HE USES A WALKER TO AMBULATE COPY OF HCP REQUESTED PCP: CHELA MIRAMONTES IMM DELIVERED DCP: HOME, RESUME [facility] FAMILY TO TRANSPORT
--- NOTE | 2025-01-15 14:38 | HO.PM.IMPN ---
Subjective Subjective Date of Service: 01/15/25 Interval History: looks good, feels better overall Drop in Hb to 10.8 from 13 feels comfortable no further hemoptysis overnight pending final cultures Review of Systems Review of Systems: Yes all other systems are reviewed and are negative Physical Exam Vital Signs: Vital Signs: Last Vital Signs Temp 97.6 F 01/15/25 07:40 Pulse 87 01/15/25 07:40 Resp 16 01/15/25 07:40 BP 133/71 01/15/25 07:40 Pulse Ox 95 01/15/25 07:40 O2 Del Method Room Air 01/15/25 07:40 BMI result Body Mass Index 18.5 Const: Other: Constitutional : Awake, interactive, not in distress Neck : Normal inspection, Supple Cardiovascular : RRR, no JVP, no lower extremity edema Respiratory : fair bilateral air entry, no crackles, wheezes or rhonchi Gastrointestinal: soft, lax, Normal bowel sounds, Non tender Skin : Warm, Dry Neurological : Alert & oriented x3, mild right sided weakness upper more than lower extremities Objective Data Active Medications Acetaminophen (Acetaminophen 325 Mg Tablet) 650 mg PO Q6H PRN PRN Reason: Pain, Mild 1-3,fever,headache Albuterol Sulfate (Albuterol Sulfate (0.083%) 2.5 Mg/3 Ml Vial.Neb) 2.5 mg INHALE BID [facility] Last Admin: 01/15/25 07:28 Dose: 2.5 mg Documented By: NANCY Atorvastatin Calcium (Atorvastatin Calcium 10 Mg Tablet) 10 mg PO DAILY [facility] Last Admin: 01/15/25 09:57 Dose: 10 mg Documented By: VERONIKA Calcium Carbonate (Calcium Carbonate 750 Mg Tab.Chew) 750 mg PO Q4H PRN PRN Reason: Heartburn Piperacillin Sod/Tazobactam (Sod 4.5 gm/ Sodium Chloride) 100 mls @ 200 mls/hr IV Q6H [facility] Last Infusion: 01/15/25 13:33 Dose: Infused Documented By: VERONIKA Azithromycin 500 mg/ Sodium (Chloride) 250 mls @ 125 mls/hr IV Q24H [facility] Last Infusion: 01/15/25 12:50 Dose: Infused Documented By: VERONIKA Magnesium Hydroxide (Milk Of Magnesia 30 Ml Oral.Susp) 30 ml PO DAILY PRN PRN Reason: Constipation Melatonin (Melatonin 3 Mg Tablet) 6 mg PO BEDTIME PRN PRN Reason: Insomnia Sodium Chloride (0.9 % Sodium Chloride Flush 3 Ml Syringe) [facility] Last Admin: 01/15/25 10:59 Dose: 3 ml Documented By: VERONIKA Labs 01/15/25 05:50 01/15/25 05:49 Labs: Laboratory Results - last 24 hr 01/14/25 01/14/25 01/15/25 09:54 15:57 05:49 MCV MCH MCHC RDW Plt Count MPV Immature Gran % (Auto) Neut % (Auto) Lymph % (Auto) [place] % (Auto) Eos % (Auto) Baso % (Auto) Lymph # (Auto) [place] # (Auto) Eos # (Auto) Baso # (Auto) Abs Immat Gran (auto) Absolute Neuts (auto) Absolute Nucleated RBC Nucleated RBC % (auto) Anion Gap 14 Estim Creat Clear Calc 76.6 Estimated GFR > 60 Random Glucose 93 Calcium 8.7 Urine Osmolality 380 Random Vancomycin 9.3 L 01/15/25 05:50 MCV 90.4 MCH 32.4 MCHC 35.9 RDW 13.3 Plt Count 212 MPV 9.5 Immature Gran % (Auto) 0.6 H Neut % (Auto) 63.2 Lymph % (Auto) 15.4 L [place] % (Auto) 12.0 H Eos % (Auto) 6.8 H Baso % (Auto) 2.0 Lymph # (Auto) 0.8 L [place] # (Auto) 0.6 Eos # (Auto) 0.3 Baso # (Auto) 0.1 Abs Immat Gran (auto) 0.03 Absolute Neuts (auto) 3.2 Absolute Nucleated RBC 0.000 Nucleated RBC % (auto) 0.0 Anion Gap Estim Creat Clear Calc Estimated GFR Random Glucose Calcium Urine Osmolality Random Vancomycin Microbiology Microbiology Results: Microbiology 01/13/25 19:56 Gram Stain - Final Sputum - Expectorated Sputum Culture - Final 01/13/25 13:50 Blood Culture - Preliminary Blood - Venous No growth after 24 hours. 01/13/25 13:59 Blood Culture - Preliminary Blood - Venous No growth after 24 hours. 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 Pt is admitted to the hospital for treatment and further evaluation hemoptysis and generalized weakness in the setting of pneumonia that failed outpatient therapy. Hemoptysis in the setting of pneumonia chronic findings on CXR and CT of chest hx of bronchiectasis on chronic azithromycin 3x per week pending cultures empirically treat with Azithromycin and Zosyn, started 01/13/2025 DC Vancomycin Pulmonology input appreciated Monitor respiratory status acute on chronic anemia Hb dropped to 10.8 from 13 not major bleeding reported , not on blood thinners to repeat labs and monitor for today Generalized weakness PT evaluation Hx of pseudogout of right wrist Recently treated with steroid taper which ended a few days ago Pt currently asymptomatic Hyponatremia, mild Has been chronic Follow BMP HLD Continue statin DNR/DNI DVT Prophylaxis: Pneumatic compression due to hemoptysis Pt will require a hospitalization of overnight for treatment of?hemoptysis and generalized weakness in the setting of pneumonia that failed outpatient therapy. Given that pt has been chronically on azithromycin and recently on a course of Augmentin, pt will need hospital level care for administration of IV antibiotics, close monitoring of labs, and specialist consultation with pulmonology for possible additional workup. Quality Stroke Does the patient have a stroke diagnosis?: No VTE Prior VTE?: No VTE Risk Level:: Medical - moderate - high VTE Device Contraindication: N/A - Device Ordered VTE Drug Contraindication: Treatment Not Indicated
[2025-01-15 15:28] LABS: Hematocrit 33.2 % (42.0-52.0); Hemoglobin 11.9 g/dl (14.0-18.0)
[2025-01-15 15:52] VITALS: BP 117/65; PULSE 86; RESP 20; TEMP 37.2; O2SAT 96
[2025-01-15 19:13] VITALS: BP 113/69; PULSE 74; RESP 18; TEMP 37.1; O2SAT 97
[2025-01-15 19:40] VITALS: PULSE 74; RESP 18; O2SAT 98
[2025-01-16 03:32] VITALS: BP 132/73; PULSE 84; RESP 18; TEMP 36.6; O2SAT 99
[2025-01-16] MEDS: Piperacillin Sodium/Tazobactam 4.5 GM in 0.9 % Sodium Chloride 100 ML IV (04:17)
[2025-01-16 06:00] LABS: Creatinine Clr Calc Pharmacy 69.6; Estimated Glomerular Filt Rate > 60
[2025-01-16 07:44] VITALS: BP 119/73; PULSE 83; RESP 18; TEMP 36.9; O2SAT 97
[2025-01-16] MEDS: Albuterol Sulfate (0.083%) 2.5 MG/3 ML VIAL.NEB INHALE (08:30)
[2025-01-16 08:33] VITALS: PULSE 94; RESP 18; O2SAT 97
[2025-01-16] MEDS: Atorvastatin Calcium 10 MG TABLET PO (08:42)
[2025-01-16] MEDS: 0.9 % Sodium Chloride Flush 3 ML SYRINGE IVFLUSH (08:46)
[2025-01-16] MEDS: Azithromycin 500 MG in 0.9 % Sodium Chloride 250 ML 125 MG IV (08:49)
--- NOTE | 2025-01-16 10:22 | MHC.CM.PN ---
PT TO BE MEDICALLY CLEARED FOR DC HOME W/RESUMP OF [facility] FOR SN/OT/PT, FAMILY WILL TRANSPORT
--- NOTE | 2025-01-16 10:31 | PM.DS ---
DS: Providers Provider Date of Service: 01/16/25 Date of admission: 01/13/25 16:15 Date of discharge: 01/16/25 Primary care physician: Robbie Kothari MD Consults: 01/13/25 18:14 Consult to Pulmonology Routine Consulting Provider: [facility] Reason for consultation: Hemoptysis, pneumonia; hx of bronchiectasis on chronic azithro DS: Diagnosis Discharge Diagnosis (1) Hemoptysis: Status: Acute (2) Acute on chronic anemia: Status: Acute (3) Pneumonia: Status: Acute (4) Bronchiectasis: Status: Acute (5) Mycobacterial disease: Status: Acute DS: Summary Hospital Course Hospital Course: Admission note HPI Pt is an 84-year-old male with a PMH significant for?recent intraparenchymal hemorrhage with associated autonomic dysfunction, bronchiectasis on chronic azithromycin 3x per week, HLD, BPH, and mood disorder who presents to the ED with?increased weakness and difficulty ambulating x1 week. Pt was recently briefly hospitalized from 12/30-12/31 for concerns of pneumonia. Pt also was noted to have right wrist pain, swelling, and erythema and was diagnosed with pseudogout. Pt was discharged home on Augmentin b.i.d. x6 days for pneumonia and prednisone taper for pseudogout. Pt is alert and oriented to self only and has both expressive aphasia and significant short-term memory loss. HPI is thus obtained from who was at bedside. reports pt was doing okay since last discharge up until 1 week ago when he began experience increasing confusion, fatigue, and weakness. Yesterday pt was so weak that he was unable to get out of his recliner without assistance, and this morning was unable to get off of the toilet. This morning pt was also noted to cough up sputum that was tinged with blood. In the ED pt was noted to have multiple episodes of hemoptysis were sputum was comprised almost entirely of blood. reports pt has had chronic cough for the past 5+ years, but never had such an episode of hemoptysis before. Pt himself denies any acute medical complaints. No SOB or difficulty breathing. Denies chest pain/pressure, palpitations. Denies right wrist pain. No chest pain/pressure, palpitations. Denies lightheadedness or dizziness. In the ED pt was tachypneic up to 23, vitals otherwise stable and WNL. Satting at 97% on RA. Labs were significant for hyponatremia of 130 and CRP 13.61. No leukocytosis. Stable H&H. No significant electrolyte abnormalities. Renal function WNL. Lactic acid WNL. Hepatic function baseline. Troponin 3.3. BNP 53. UA negative for UTI. Tested negative for flu, COVID, RSV. CXR showed extensive bilateral lung scarring with probable new airspace opacities at right lung \apex in left lung base suspicious for pneumonia. CT?of head negative for acute intracranial hemorrhage, though did show extensive white matter disease likely related to small-vessel disease. ED clinician reached out to patient's dehydrogenation converter operator Dr. Minor who suggested admitting the pt to the hospital and treating empirically with vancomycin and Zosyn. EKG demonstrated sinus rhythm with first-degree AV block. Pt was treated in the ED with IVF, albuterol, vanc and Zosyn. Pt is admitted to the hospital for treatment and further evaluation hemoptysis and generalized weakness in the setting of pneumonia that failed outpatient therapy. Hospital course The patient was admitted and treated for: # Hemoptysis in the setting of pneumonia with chronic findings on CXR and CT of chest showing bronchiectasis which he is been on chronic azithromycin 3x per week. Negative sputum and blood cultures. Treated empirically with Azithromycin and Zosyn, started 01/13/2025. Pulmonology input appreciated and suggested to continue treatment with antibiotics and to follow as outpatient. for Azithromycin and Vantin. # acute on chronic anemia with reported hemoptysis. Hb dropped to 10.8 from 13 but not major bleeding reported , not on blood thinners. repeat labs showed Hb 11.9. To be followed as outpatient # Generalized weakness. PT evaluation with a plan for home PT. # Hyponatremia, mild. Has been chronic. resolved while inpatient. Discharge plan Take Azithromycin and Cefpodoxime as prescribed Follow with Pulmonology as outpatient Time Attestation Discharge Coordination Time (in mins): 42 Quality: Safe Use of Opioids Does Pt have an Active Cancer Diagnosis on the Problem List?: No Quality: Stroke Does the patient have a stroke diagnosis?: No Physical Exam Vital Signs: Vital Signs: Last Vital Signs Temp 98.5 F 01/16/25 07:44 Pulse 94 01/16/25 08:33 Resp 18 01/16/25 08:33 BP 119/73 01/16/25 07:44 Pulse Ox 97 01/16/25 07:44 O2 Del Method Room Air 01/16/25 07:44 BMI result Body Mass Index 18.5 Const: Other: Constitutional : Awake, interactive, not in distress Neck : Normal inspection, Supple Cardiovascular : RRR, no JVP, no lower extremity edema Respiratory : fair bilateral air entry, no crackles, wheezes or rhonchi Gastrointestinal: soft, lax, Normal bowel sounds, Non tender Skin : Warm, Dry Neurological : Alert & oriented x3, mild right sided weakness upper more than lower extremities DS: Data Data Completed and Pending Labs on day of discharge: Laboratory Results - last 24 hr 01/15/25 01/16/25 15:22 05:11 Hgb 11.9 L Hct 33.2 L Hold Purple Top SEE NOTE Creatinine 0.77 Estim Creat Clear Calc 69.6 Estimated GFR > 60 Preliminary micro results at discharge 01/13/25 13:50 Blood Culture - Preliminary Blood - Venous No growth after 48 hours. 01/13/25 13:59 Blood Culture - Preliminary Blood - Venous No growth after 48 hours. Imaging Chest x-ray: Radiologist's impression: ITS Impressions Head CT 01/13/25 12:15 IMPRESSION: No acute intracranial hemorrhage. Extensive White matter disease likely related to small vessel disease. Electronically signed by: Lázaro Ely MD 01/13/2025 12:35 PM EDT RP Chest X-Ray 01/13/25 12:22 IMPRESSION: Extensive bilateral lung scarring. Probable new airspace opacities at the right lung apex and at the left lung base, suspicious for pneumonia. Follow-up is recommended. Electronically signed by: Robbie Rosales MD 01/13/2025 12:28 PM EDT RP Discharge Plan Discharge Anticipated Discharge Date/Time: 01/16/25 10:30 Patient Disposition: Home Health Service Discharge Diagnosis: Hemoptysis [facility] - 1 Day (RESUMPTION OF SN/OT/PT) Robbie Kothari MD [Primary Care Provider] - 1 Week Discharge Medications: New azithromycin 500 mg tablet 500 mg PO DAILY 7 Days Qty: 7 0RF cefpodoxime 200 mg tablet 200 mg PO BID Qty: 14 0RF Rx Instructions: must administer with a meal/food Continued albuterol sulfate 2.5 mg /3 mL (0.083 %) solution for nebulization 2.5 mg inhalation BID Qty: 180 11RF atorvastatin 10 mg tablet 10 mg PO DAILY (DME) nebulizers Misc See Rx Instructions .ROUTE Rx Instructions: As directed Held azithromycin 500 mg tablet 500 mg PO MOWEFR Hold Instructions: Until you follow up with Dr Minor Rx Instructions: Thursday Discharge Orders: Discharge Order (Routine); Ordered 01/16/25 Ordered By: Tommy Rodriguez Diet: Advance to usual diet Activity on Discharge: As tolerated Stand Alone Forms: Patient Portal Discharge page Print Language: Haitian Care Plan Goals: Take Azithromycin and Cefpodoxime as prescribed Follow with Pulmonology as outpatient Health Concerns: Pneumonia, Bronchiectasis Plan of Treatment: Azithromycin and Vantin Assessment: as above
--- NOTE | 2025-01-16 13:03 | P.PNPL_ITS ---
Subjective Subjective Date of Service: 01/16/25 Interval history: The patient was seen on exam. Overall he is feeling better. The hemoptysis is resolving. He is continued on the IV antibiotics. Will switch him over to oral antibiotics. In view of the non tuberculosis mycobacterial infection will increase the azithromycin 500 mg daily and he will complete a 8-10 day course of cephalosporins. The patient does have a increased risk for micro aspirations and aspiration pneumonia and therefore will start him on chlorhexidine mouthwash to see if this provides some decreased risk. The patient follow-up with Pulmonary and will discuss additional imaging. If he develops any worsening or recurrent hemoptysis upon discharge he will call the office if further recommendations. Objective Data Labs 01/15/25 15:22 01/16/25 05:11 Labs: Laboratory Results - last 24 hr 01/15/25 01/16/25 15:22 05:11 Hgb 11.9 L Hct 33.2 L Hold Purple Top SEE NOTE Creatinine 0.77 Estim Creat Clear Calc 69.6 Estimated GFR > 60 Microbiology Microbiology Results: Microbiology 01/13/25 13:50 Blood - Venous Blood Culture - Preliminary No growth after 48 hours. 01/13/25 13:59 Blood - Venous Blood Culture - Preliminary No growth after 48 hours. 01/13/25 19:56 Sputum - Expectorated Gram Stain - Final 01/13/25 19:56 Sputum - Expectorated Sputum Culture - Final Review of Systems Cardiovascular: Denies chest pain at rest, Denies chest pain with activity, Denies dyspnea and Denies dyspnea on exertion Respiratory: Reports cough, Reports hemoptysis (Small amount), Denies dyspnea, Denies dyspnea on exertion and Denies wheezing Allergic/Immunologic: Denies wheezing Physical Exam 2 Vital Signs: Vital Signs: Last Vital Signs Temp 98.5 F 01/16/25 07:44 Pulse 94 01/16/25 08:33 Resp 18 01/16/25 08:33 BP 119/73 01/16/25 07:44 Pulse Ox 97 01/16/25 07:44 O2 Del Method Room Air 01/16/25 07:44 BMI result Body Mass Index 18.5 Const: Other: Constitutional : Awake, interactive, not in distress Neck : Normal inspection, Supple Cardiovascular : RRR, no JVP, no lower extremity edema Respiratory : fair bilateral air entry, no crackles, wheezes or rhonchi Gastrointestinal: soft, lax, Normal bowel sounds, Non tender Skin : Warm, Dry Neurological : Alert & oriented x3, mild right sided weakness upper more than lower extremities Procedures Date of Service Date of Service: 01/16/25 Assessment and Plan Assessment and plan (1) Pneumonia: Status: Acute (2) Hemoptysis: Status: Acute (3) Bronchiectasis: Status: Acute Plan Complete 8-10 days of Vantin Increase azithromycin 500 mg daily to treat the MAC Start chlorhexidine mouthwash at home daily CPT with incentive spirometer Monitor swallow for risk for aspiration To sleep with the head of bed elevated to decrease micro aspirations Follow-up with Pulmonary as an outpatient Time Spent With Patient Time: Total time managing care of this patient today ____ minutes. Progress Note: Quality Stroke Does the patient have a stroke diagnosis?: No
[2025-01-16 13:22] VITALS: BP 105/58; PULSE 87; RESP 16; TEMP 36.5; O2SAT 97
== END 2025-01-16 13:12 | disposition home health service (06) | DRG 191 ==
LOC: HO.ED 16:32 → HO.EDOVER 16:44 → HO.S3 16:56
PROVIDERS: Nurse Practitioner Family; Admitting Provider Student in an Organized Health Care Education/Training Program; Emergency Provider Emergency Medicine; PCP Internal Medicine Medical Oncology; Visit Provider Student in an Organized Health Care Education/Training Program
DX: J47.0 Bronchiectasis with acute lower respiratory infection (principal); E87.1 Hypo-osmolality and hyponatremia; R04.2 Hemoptysis; Z66 Do not resuscitate; E78.5 Hyperlipidemia, unspecified; A31.0 Pulmonary mycobacterial infection; J18.9 Pneumonia, unspecified organism; Z20.822 Contact with and (suspected) exposure to COVID-19; Z87.891 Personal history of nicotine dependence; Z79.899 Other long term (current) drug therapy
CPT/HCPCS: 0241U; 36415; 70450; 71045; 71250; 80048; 80076; 80202; 81003; 82565; 83605; 83735; 83880; 83935; 84145; 84300; 84484; 85014; 85018; 85025; 86140; 87040; 87070; 87205; 93005; 94640; 97162; 99285; J0456; J2543; J3370

== ENCOUNTER → 2025-01-13 11:45 | Outpatient (BNV) | payer MEDICARE, SELFPAY | PROVIDERS: Admitting Provider Student in an Organized Health Care Education/Training Program; Emergency Provider Emergency Medicine; PCP Internal Medicine Medical Oncology; Visit Provider Internal Medicine Cardiovascular Disease | DX: I44.0 Atrioventricular block, first degree (principal) | CPT/HCPCS: 93010 ==

== ENCOUNTER → 2025-01-13 11:48 | Outpatient (BNV) | payer MEDICARE, SELFPAY | PROVIDERS: Emergency Provider Emergency Medicine; PCP Internal Medicine Medical Oncology; Visit Provider Radiology Diagnostic Radiology | DX: R05.9 Cough, unspecified (principal); R41.82 Altered mental status, unspecified | CPT/HCPCS: 70450; 71045; 71250 ==

== ENCOUNTER → 2025-01-13 16:15 | Outpatient (BNV) | payer MEDICARE, SELFPAY | PROVIDERS: Admitting Provider Student in an Organized Health Care Education/Training Program; Emergency Provider Emergency Medicine; PCP Internal Medicine Medical Oncology; Visit Provider Internal Medicine Pulmonary Disease | DX: J18.9 Pneumonia, unspecified organism (principal); R04.2 Hemoptysis; J47.9 Bronchiectasis, uncomplicated | CPT/HCPCS: 99222; 99232 ==

== ENCOUNTER → 2025-01-13 16:15 | Outpatient (BNV) | payer MEDICARE, SELFPAY | PROVIDERS: Admitting Provider Student in an Organized Health Care Education/Training Program; Emergency Provider Emergency Medicine; PCP Internal Medicine Medical Oncology; Visit Provider Student in an Organized Health Care Education/Training Program | DX: R04.2 Hemoptysis (principal); D64.9 Anemia, unspecified; J18.9 Pneumonia, unspecified organism; J47.9 Bronchiectasis, uncomplicated | CPT/HCPCS: 99223; 99232; 99239 ==

== ENCOUNTER 2025-02-08 13:51 | Outpatient (AMB) | payer MEDICARE, SELFPAY ==
--- NOTE | 2025-02-08 13:54 | MHC.OFFVIS ---
Intake Visit Reasons: BPH with nocturia Intake Note: New patient presents today for initial visit for BPH with nocturia Urology Medication:None Blood Thinner:None Antibiotic Allergies:None PVR:379ml Allergies latex [LATEX] Allergy (Intermediate, Verified 02/08/25 14:51) RASH Band-Aid Allergy (Severe, Uncoded 02/08/25 14:51) rash neosporin Allergy (Severe, Uncoded 02/08/25 14:51) rash Medication List - Last Reconciled 02/08/25 by JULIUS Ramírez azithromycin 500 mg PO DAILY 30 days nebulizers As directed HPI Comments Details: Freeman is a very pleasant 84-year-old male patient of who was accompanied by his at today's office visit. He has a past medical history of COPD, hernia, hyperlipidemia, BPH, pulmonary nodule, and CVA. In discussion with the patient and his today he reports having experienced a CVA in October and since has been experiencing urinary issues. He reports noting urinary dribbling in at times feeling of incomplete bladder emptying. He reports having followed up with his PCP and recommendations were made for urology referral for further assessment evaluation. He was unable to provide a urine today as he was unable to void however PVR 379 mL. We discussed incomplete bladder emptying and further treatment options as well as potential causes of incomplete bladder emptying. He otherwise denies hematuria, dysuria, foul smelling urine, flank pain, fever, and or chills. He also reports episodes of nocturia up to 2-3 times per night. In assessment of the patient today the penis is circumcised and patient was noted to have irritated area to bilateral groin site appears to be fungal. We discussed obtaining retroperitoneal ultrasound for further assessment evaluation. He reports having had DEMARIO with PCP and patient was noted to have an enlarged prostate. He denies having had any bothersome urinary issues prior to his stroke. All questions were answered. He otherwise offers no other issues or concerns at this time. In review of patient's chart it appears PSA 01/06 3.0 PFSH Medical History Bronchiectasis COPD (chronic obstructive pulmonary disease) Mycobacterial disease Hernia HLD (hyperlipidemia) BPH (benign prostatic hyperplasia) Bronchiectasis Hemoptysis Pulmonary nodules Cough Abnormal chest x-ray Surgical History Hx of colonoscopy Social History Household Members: Spouse Housing: House Do you presently have visiting nurse or other home services: Yes Alcohol intake: former Patient Tobacco Use Status: Former Tobacco user Tobacco use type: Cigarette Years Smoked: 20 years service: Yes Review of Systems Eyes Reports no additional complaints ENT Reports no additional complaints Card Reports as per HPI Resp Reports as per HPI GI Reports no additional complaints Reports as per HPI Musc Reports as per HPI Neuro Reports as per HPI Psych Reports no additional complaints Endo Reports no additional complaints Brad/Lymph Reports no additional complaints Aller/Immun Reports no additional complaints Physical Exam Const General: cooperative, comfortable, no acute distress, well developed, alert and awake Orientation/consciousness: oriented to person Limitations: ambulation with walker HEENT Head: Yes normal to inspection, Yes normocephalic and Yes atraumatic Ears: hearing grossly normal bilaterally Eyes General: appearance normal, both eyes and all related structures Neck Neck: Yes normal visual inspection and Yes trachea midline Chest Chest palpation & inspection: normal inspection of the chest Resp Effort & Inspection: normal respiratory effort and able to speak in complete sentences Cardio Rate: regular rate GI Inspection: Yes normal to inspection General: Yes no CVA tenderness Back/Spine/Pelvis Back: no CVA tenderness Skin General skin exam: no rashes or lesions noted Neuro General: oriented to person Extrem General: Yes normal to inspection Psych Appearance: grossly normal and well kempt Mental Status: mental status grossly normal Speech and movement: Normal speech and movement present and Clear speech present Affect: normal affect Attitude: cooperative Thought process: Normal thought process present Thought content: Normal thought content present Insight: Fair insight present (Psych) Judgement: Fair judgement present (Psych) Assessment & Plan Assessment & Plan (1) Incomplete bladder emptying: Code(s): R33.9 - Retention of urine, unspecified Category: Medical (2) Urinary dribbling: Code(s): N39.43 - Post-void dribbling Category: Medical (3) Nocturia: Code(s): R35.1 - Nocturia Category: Medical Plan Unable to obtain urine for urinalysis as patient unable to void however PVR 379 mL. We discussed incomplete bladder emptying and further treatment options and risks and benefits of these treatment options. We discussed obtaining retroperitoneal ultrasound for further assessment evaluation. Recent PSA results reviewed with the patient today; as noted above. Start Flomax as discussed and prescribed. Prescription provided for bilateral groin rash. We discussed double voiding to assist with incomplete bladder emptying. Follow-up in 1-3 months with imaging and PVR; or sooner with any issues, concerns, and or questions. Orders: Orders AMB Urinalysis Automated Today Z13.9 - Encounter for screening, unspecified US retroperitoneal comp Today N39.43 - Post-void dribbling, R33.9 - Retention of urine, unspecified, R35.1 - Nocturia AMB Post Void Residual by ultrasound Today Z13.9 - Encounter for screening, unspecified Medications: New nystatin Apply to the affected area three times a day 1 appl topical TID 30 days 60 grams 0RF tamsulosin 0.4 mg PO BEDTIME 30 days 30 caps 3RF N40.1 - Benign prostatic hyperplasia with lower urinary tract symptoms, R35.1 - Nocturia Patient Instructions: The patient had an opportunity to ask questions regarding the treatment plan. All questions were answered. Physical exam, labs, and imaging were discussed and reviewed in detail. As well as risks, benefits, and discussion of treatment choices. No major barriers to understanding were identified. The patient expressed understanding and agreement with the above treatment plan. The patient was made aware they should contact our office by phone for worsening of their current condition, the appearance of new symptoms, or with any questions or concerns. Compliance is encouraged with any medications and follow up testing that is ordered. It is a privilege to be allowed the opportunity to participate in? your urological care.? Again, if you have any questions or concerns If you have any questions or concerns please do not hesitate to contact me. The office is [phone]. This note is constructed using voice recognition software. While every effort has been made to ensure accuracy food service team member errors may have been included. Yours sincerely, JULIUS Ramírez Coding Level of Care Code New Pt Level 4 (27555) Diagnoses Incomplete bladder emptying R33.9 Urinary dribbling N39.43 Nocturia R35.1
--- OUTSIDE RECORDS SUMMARY | 2025-02-08 14:48 | XMS_ITS | Clinical Summary ---
Author Organization [facility] Address [address] [place] [address] [place] [address] Phone Care Team Providers Care Ghost Writer Name Role Phone Unavailable Primary Care Provider Unavailabl e Allergies Active Allergy Reactions Criticality Noted Date Comments Latex Rash Low 02/02/2025 Medications albuterol (2.5 MG/3ML) 0.083% nebulizer solution Take 2.5 mg by nebulization every 8 (eight) hours if needed for wheezing or shortness of breath Active amLODIPine (NORVASC) 10 MG tablet Take 10 mg by mouth 1 (one) time each day 5 Active atorvastatin (LIPITOR) 10 MG tablet Take 10 mg by mouth 1 (one) time each day 3 Active docusate sodium (Colace) 100 MG capsule Take 100 mg by mouth in the morning and 100 mg in the evening. 5 Active tamsulosin (FLOMAX) 0.4 MG 24 hr capsule Take 0.4 mg by mouth 1 (one) time each day 5 Active sennosides-docu sate sodium (SENOKOT-S) 8.6-50 MG tablet Take 1 tablet by mouth 1 (one) time each day Active sodium chloride 1 g tablet Take 2 g by mouth in the morning and 2 g in the evening and 2 g before bedtime. Active Active Problems No known active problems Encounters Date Type Department Care Team Description 02/02/2025 2:00 PM EDT Office Visit [facility] [address] [place] [address] Anurag John MD Hypo-osmolality and hyponatremia (Primary Dx) from Last 3 Months Social History Tobacco Use Types Packs/Day Years Used Date Smoking Tobacco: Never Assessed Sex and Gender Information Value Date Recorded Sex Assigned at Not on file Legal Sex Male 11:09 AM EST Gender Identity Not on file Sexual Orientation Not on file Last Filed Vital Signs Vital Sign Reading Time Taken Comments Blood Pressure 118/68 02/02/2025 1:40 PM EDT Pulse 93 02/02/2025 1:40 PM EDT Temperature - - Respiratory Rate - - Oxygen Saturation 99% 02/02/2025 1:40 PM EDT Inhaled Oxygen Concentration - - Weight 72.6 kg (160 lb) 02/02/2025 1:40 PM EDT Height - - Body Mass Index - - Plan of Treatment Health Maintenance Due Date Last Done Comments Pneumococcal Vaccine: 50+ Ye ars (1 of 2 - PCV) 02/20/1959 Influenza Vaccine (Season Ended) 2025 Hepatitis B Vaccine Aged Out No longe r eligible based on patient's age to complete this topic Insurance [facility] [place] [address]
== END 2025-02-08 14:45 | disposition home or self-care (01) ==
LOC: HO.HUSH 13:52
PROVIDERS: PCP Internal Medicine Medical Oncology; Visit Provider Nurse Practitioner Family
DX: R33.9 Retention of urine, unspecified (principal); N39.43 Post-void dribbling; R35.1 Nocturia
CPT/HCPCS: 99204

== ENCOUNTER → 2025-02-08 13:51 | Outpatient (BNVA) | payer MEDICARE, SELFPAY | PROVIDERS: PCP Internal Medicine Medical Oncology; Visit Provider Nurse Practitioner Family | DX: R33.9 Retention of urine, unspecified (principal); R35.1 Nocturia; N39.43 Post-void dribbling | CPT/HCPCS: 99202 ==

== ENCOUNTER 2025-02-16 07:21 | Outpatient (REF) | payer MEDICARE, SELFPAY ==
--- OUTSIDE RECORDS SUMMARY | 2025-02-16 07:24 | XMS_ITS | Clinical Summary ---
Author Organization [facility] Address [address] [place] [address] [place] [address] Phone Care Team Providers Care Personnel Technician Name Role Phone Unavailable Primary Care Provider [...] Office Visit [facility] [address] [place] [address] Anurag John [...] patient's age to complete this topic Insurance [facility] Medicare
[2025-02-16 07:38] LABS: MANUAL DIFF FLAG NO
[2025-02-16 08:07] LABS: Basophils Absolute Auto 0.1 X10*3/uL (0.0-0.2); Basophils Percent Auto 1.4 % (0-2); Eosinophils Absolute Auto 0.2 X10*3/uL (0.0-0.4); Eosinophils Percent Auto 3.5 % (0-4); Hematocrit 36.8 % (42.0-52.0); Hemoglobin 12.9 g/dl (14.0-18.0); Imm Gran Abs Auto 0.05 X10*3/uL (0.00-0.03); Imm Gran Pct Auto 0.8 % (0.0-0.4); Lymphocytes Absolute Auto 1.3 X10*3/uL (1.2-4.9); Lymphocytes Percent Auto 19.6 % (20-40); Mean Corpuscular HGB Conc 35.1 g/dl (31.0-36.0); Mean Corpuscular Hemoglobin 31.9 pg (27.0-33.0); Mean Corpuscular Volume 91.1 fL (80.0-98.0); Mean Platelet Volume 8.9 fL (9.4-12.4); Monocytes Absolute Auto 0.9 X10*3/uL (0.1-1.2); Monocytes Percent Auto 12.9 % (2-11); Neutrophils Absolute Auto 4.1 x10*3/uL (2.0-8.3); Neutrophils Percent Auto 61.8 % (45-73); Platelet Count 363 X10*3/uL (160-400); Red Blood Count 4.04 X10*6/uL (4.60-5.80); Red Cell Distribution Width 13.2 % (11.0-16.0); White Blood Count 6.6 X10*3/uL (4.8-10.8)
[2025-02-16 08:41] LABS: Alanine Aminotransferase 17 U/L (0-40); Alkaline Phosphatase 80 U/L (39-117); Anion Gap 10 (12-20); Aspartate Amino Transferase 21 U/L (5-37); Bilirubin Total 0.6 mg/dL (0.0-1.0); Blood Urea Nitrogen 15 mg/dL (9-16); Calcium 10.1 mg/dL (8.4-10.2); Carbon Dioxide 29 mmol/L (22-29); Chloride 100 mmol/L (96-108); Cholesterol 147 mg/dL (<200); Estimated Glomerular Filt Rate > 60; Glucose Fasting 89 mg/dL (60-99); HDL Cholesterol 49 mg/dL (>40); LDL Cholesterol Calculated 87 mg/dL (<100); Potassium 4.3 mmol/L (3.3-5.1); Sodium 135 mmol/L (135-145); Total Protein 7.7 g/dL (6.5-8.0); Triglycerides 58 mg/dL (<150)
== END 2025-02-16 07:22 | disposition home or self-care (01) ==
LOC: HO.LAB 07:21
PROVIDERS: PCP Internal Medicine Medical Oncology; Visit Provider Internal Medicine Medical Oncology
DX: Z00.00 Encounter for general adult medical examination without abnormal findings (principal); E78.5 Hyperlipidemia, unspecified
CPT/HCPCS: 36415; 80053; 80061; 85025

== ENCOUNTER 2025-02-23 08:01 | Outpatient (REF) | payer MEDICARE, SELFPAY ==
--- NOTE | ~2025-02-23 | XR_ITS ---
EXAMINATION: XR CHEST CLINICAL INFORMATION: J41.0 - Simple chronic bronchitis COMPARISON: January 13, 2025. TECHNIQUE: 2 views of the chest were obtained. FINDINGS: Pulmonary reticular nodular pattern, bilaterally more pronounced on the right lung. Probable saccular bronchiectasis, upper lung lobes. No pleural effusion. No pneumothorax. Hyperinflated lungs. Cardiomediastinal silhouette size is small. Calcified plaque thoracic aortic arch. Mild multilevel thoracic spondylosis. XR/XR chest 2V IMPRESSION: Acute on chronic airspace disease involving mostly the right lung, worsened since prior examination. Underlying neoplasm cannot be excluded.. Electronically signed by: Lázaro Ely MD 02/23/2025 08:53 AM EDT
--- OUTSIDE RECORDS SUMMARY | 2025-02-23 08:06 | XMS_ITS | Clinical Summary ---
Author Organization [facility] Address [address] [place] [address] [place] [address] Phone Care Team Providers Care Rn Progressive Care Name Role Phone Unavailable Primary Care Provider [...] Office Visit [facility] [address] [place] [address] Anurag John [...] patient's age to complete this topic Insurance [facility] [place] [address]
== END 2025-02-23 08:02 | disposition home or self-care (01) ==
LOC: HO.XRAY 08:01
PROVIDERS: PCP Internal Medicine Medical Oncology; Visit Provider Hospitalist
DX: J41.0 Simple chronic bronchitis (principal)
CPT/HCPCS: 71046

== ENCOUNTER → 2025-02-23 08:27 | Outpatient (BNV) | payer MEDICARE, SELFPAY | PROVIDERS: PCP Internal Medicine Medical Oncology; Visit Provider Radiology Diagnostic Radiology | DX: J41.0 Simple chronic bronchitis (principal) | CPT/HCPCS: 71046 ==

== ENCOUNTER 2025-03-01 09:16 | Outpatient (AMB) | payer MEDICARE, SELFPAY ==
[2025-03-01 09:22] VITALS: BP 114/54; PULSE 86; O2SAT 97; BMI 20.1
--- NOTE | 2025-03-01 09:22 | MHC.OFFVIS ---
Vital Signs 03/01/25 09:22 Height 6 ft 4 in Weight 165 lb 5.547 oz BMI 20.1 BP 114/54 L Blood Pressure Location Lt brachial Position Sitting Pulse 86 Pulse Source Pulse Oximeter Pulse Oximetry (%) 97 Oxygen Delivery Method Room Air Intake Visit Reasons: Pneumonia Word Processing Operator Required: No Allergies latex (LATEX) Allergy (Intermediate, Verified 03/01/25 09:25) RASH Band-Aid Allergy (Severe, Uncoded 02/08/25 14:51) rash neosporin Allergy (Severe, Uncoded 02/08/25 14:51) rash HPI Comments Details: The patient is an 85-year-old gentleman with a known history of childhood asthma in addition to pulmonary nodules. The patient followed for many years with CT scan following some abnormal findings including pulmonary nodules and interstitial changes. Ultimately no significant findings were noted. For the last year the patient has had episodes of coughing up blood. He has not coughed up blood now more than 6 months. He denies any weight loss or night sweats. He states that he walks about a mi a day and denies any shortness of breath. He has been evaluated for cardiac symptoms including palpitations. At this point the patient does not use any respiratory inhalers. He does not feel like he needs new either. We did look at his chest x-ray from September 2020 demonstrating some increased interstitial changes compared to his previous x-ray from 2019. We personally reviewed that x-ray was also personally reviewed the CT scan of the chest that he had back in 2017 demonstrating some interstitial changes primarily in the upper lung zones. The patient did have multiple pulmonary nodules. Therefore, based on his abnormal chest x-ray and ongoing intermittent coughing with sometimes hemoptysis the patient needs to have a CT scan of the chest. In addition to that will having undergo pulmonary function studies to assess her COPD. 01/08/2021 the patient is here for pulmonary follow-up visit. Overall he is feeling better. Denies any significant hemoptysis at this time. He did undergo his pulmonary function studies which were reassuring without any obstruction no restriction. He does have moderate diffusion impairment. In addition to that he did undergo a repeat CT scan of the chest which was compared to his CT scan from 2017. It demonstrated interval worsening of the bronchiectasis the pulmonary nodules and tree-in-bud. This appears to be more consistent with a smoldering infectious process versus inflammatory process. At this point the patient is agreeable to bronchoscopy to assess for any infectious etiologies and also to rule out malignant processes. 01/30/2021 the patient is here for pulmonary follow-up visit. He is status post bronchoscopy. He did have significant purulent secretions in the airways that were suction. Otherwise no other acute abnormalities noted. His cultures are all negative at this time. Still waiting for the results of the mycobacteria cultures assessing for the possibility of a mycobacterial lung disease. In the meantime he has been using his nebulizer. At this point he is to get an Acapella valve to further provide chest physical therapy with the goal of maintaining good pulmonary hygiene. 07/29/2021 the patient is here for a pulmonary follow-up visit. Overall the patient has been doing much better. He is responding well to the nebulized therapy followed by the Acapella valve. He has been able to clear significant amount of secretions. His lungs appear to be better overall with less congestion. He has been using the nebulizer once a day and I did agree with him decreasing his frequency to once a day at this time. He does have underlying pulmonary nodules. The last time he had a CT scan of the chest was back in November 2020. Will plan to follow-up with a CT scan in 6 months time which should be little bit longer than a year. I am hopeful the nodules are stable we can at that point follow them as needed. However, if the nodules are growing in size further diagnostic interventions will be warranted. 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 At this point the patient is doing well and does not require antimicrobial agents at this time. 10/03/2021 the patient is here for a pulmonary follow-up visit. He continues to have a productive cough on a regular basis. He does use the nebulized therapy and is able to expectorate well. 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 He also understands that treating it will require 17 months of antimicrobial therapy in order to follow the Infectious Disease recommendations. He also understands that there is a high relapse straight even after completing the 17 months. Therefore at this point will follow him closely since his symptoms do not appear to be worsening. We did review his CT scan of the chest demonstrating bronchiectatic changes in addition to pulmonary nodular densities. No evidence of any cavitations at this time. Patient last CT scan was back in 2020. the repeat CT scan scheduled for December 2021. if the nodules are changing increasing of progressing we need to consider treating the mycobacteria infection. In the meantime will try aggressive chest physical therapy by continuing his nebulized therapy and also adding hypertonic saline. The patient does have an Acapella valve any start using it after the nebulized therapy. In addition to that the patient did have a recent fall. He did go to the ER and the scott to the back of his call because of a laceration. He is also complaining of some left-sided flank discomfort from his fall. He does have some point tenderness over the ribs. Likely contusions. He had a CT scan of the brain demonstrating some chronic changes. He did not have any chest imaging studies. At this point will follow-up after his CT scan he is going to continue with aggressive chest physical therapy. 12/24/2021 the patient is here for pulmonary follow-up visit. He describes worsening cough productive in nature. He is also developing increasing shortness of breath. Moderate severity with activity. The patient did have a repeat CT scan of the chest that we personally reviewed demonstrating waxing waning pulmonary nodules in addition to having interval progression of the bronchiectasis and appears to have more treating budding and more progression of his airway disease. This is likely secondary to the smoldering infection with the non tuberculosis mycobacterial infection. He did try the percussion valve without any significant improvement. Therefore this time view of his worsening symptoms and also worsening CT scan will go ahead and start him on therapy. Will try him on the lowest dose possible in order for him to be able to tolerated and we can always consider increasing the medication. Once he is on therapy around 4-6 weeks after worse will get another sputum culture to make sure that he is tolerating the therapy. He also have to undergo blood work and also an EKG to make sure that he can tolerate therapy. Also mentioned on the report of the CT scan is that he does have 2 mild compression fractures. At this point the patient denies any back discomfort. However, in view of the findings the patient should follow up with his primary care doctor to be assessed for the possibility of osteopenia or osteoporosis. 02/25/2022 so the patient is here for a pulmonary follow-up visit. Overall he is doing well from a respiratory status. His cough is overall better. He still expectorating some but much less. He is tolerating the antimycobacterial therapy. Has been on the azithromycin 3 times a week in addition to a lower dose rifampin and ethambutol. Denies any eye Darron just. He did have an EKG back in December without any QT changes. The patient has not had any blood work since then. He will go for blood work to make sure that everything else is stable. In the meantime he is having some diarrhea issues. We did talk about the side effects of the medications and GI symptoms. If his GI symptoms becomes too significant we talked about dropping 1 of the agents to just at the dual therapy. The patient understands that the triple antibiotic regimen to avoid too much resistance buildup due to the mycobacterial resistance possibilities. In the meantime the patient did have a CT scan back in December demonstrating interval worsening of pulmonary nodules and bronchiectatic changes. Will plan to continue the therapy and follow-up with a CT scan in June 2022. The patient meantime will provide us with the sputum sample to make sure that the mycobacterium is eradicating. 06/30/2022 the patient is here for a pulmonary follow-up visit. Overall continues to feel well. His cough is overall better. He is exercising regularly. He is tolerating the triple antimicrobial therapy. The only adverse effect is discoloration of the urine which is common with the rifampin In addition to some diarrhea. We did talk about adding probiotics to his regimen. He will try some [id number] options. He did have a repeat CT scan of the chest demonstrating interval improvement of the cavitary lesions and also improvement of the parenchymal disease. No evidence of any new nodules and he has stable pulmonary nodules. Therefore it is encouraging that the therapy has been clinically affected also radiologically with evidence of improvement. He understands that treatment should at least last been 12-15 months of therapy. His sputum culture repeat has not demonstrated any mycobacterial disease. 12/26/2022 the patient is here for a pulmonary follow-up visit. He continues to do well. His cough is overall better. He continues on the triple antimicrobial therapy. He has completed now 1 year. Based on the fact that the patient is doing better will go ahead and stop the ethambutol and the rifampin and will continue with the azithromycin for now. His last EKG was reassuring. Will plan to continue on the azithromycin and will plan to repeat the CT scan in May 2023. If the patient develops any worsening symptoms prior to that he is to call the office for an earlier evaluation. 06/24/2023 the patient is here for a pulmonary follow-up visit. He continues on the azithromycin 3 times a week 500 mg. He is happy that he is stopped the ethambutol and rifampin. Respiratory tobin the patient is doing well denies any worsening cough or shortness of breath. Although he has had episodes of hemoptysis he states. Is minimal amount scant in amount. At this point is subsided. Still the patient is aware that if it happens again if it is a very more significance he would have to call again in order to address the hemoptysis. He did recently have a CT scan 06/17/2023 which I personally reviewed. It appears patient does have some significant bronchiectasis and nodular densities and tree-in-bud and all are very similar to his previous CT scan at least there is no worsening of disease. He also has a new pulmonary nodule in the right base. Seems to be also related to the underlying mycobacterial disease. At this point will continue with the azithromycin 3 times a week since the patient clinically doing well. Although, if his hemoptysis worsens his respiratory symptoms worsen then will need to readdress that. I will also provide him with a sputum cup in order for him to bring a sputum sample. The patient should get a repeat CT scan 6 months to follow-up with a new pulmonary nodule. 12/16/2023 the patient is here for a pulmonary follow-up visit. Overall he continues to do well. Continues on the azithromycin 500 mg 3 times a week. His cough is improved. Denies any significant congestion. Denies any hemoptysis. Overall the patient has been doing well. Back in July he did grew Klebsiella from his sputum culture. Otherwise has not grown any other organisms. He did have a CT scan of the chest which we personally reviewed and also compared to the CT scans from 10/03/2019 22 in 2022. it appears that he is waxing waning pulmonary nodules along with bronchiectatic changes treating budding and a right upper lobe thick-walled cavitary lesion. For the most part the nodular densities have changed some indeed have gotten little better but again some new ones are present. The patient also has significant bronchiectasis. He has not been using the Acapella valve for chest PT. We did talk about the importance of that. The patient understands that most likely the findings on the CT scan all has to do with mycobacterial disease. Also predisposes him to Other enteric bacteria. Still is hard to know for sure if any of those nodular densities have any malignant potentials. At this point clinically the patient is doing well and therefore this CT scan is also reassuring. Will go ahead and follow-up in 6 months. The patient needs to have an EKG to make sure he is tolerating the macrolide therapy. In addition to that will request another sputum for culture and also AFB. If the patient develops any worsening respiratory symptoms specially hemoptysis needs to call the office quickly. Otherwise will follow-up in 6 months. Will discuss further imaging studies when he returns in 6 months. 06/17/2024 the patient is here for a pulmonary follow-up visit. Overall he continues to do well cough is better chest congestion is better overall feels normal. The patient had sputum cultures back in December indeed positive for mycobacterium still. The organism still sensitive to the azithromycin. Initially he was not a broader course of antimicrobial therapy and subsequently we were able to switch him down to monitor therapy. Currently he is going to send a small prophylactic dose of azithromycin. His imaging studies CT scans have not changed which is reassuring as well. Has waxing waning pulmonary nodules. Although he has extensive bronchiectatic changes because of the chronicity of the non tuberculosis mycobacterial infection. Still though since the patient is doing well and he is fairly asymptomatic and also considering the risks additional medications at this time based on his age and other comorbidities will go ahead and just keep him on the azithromycin 3 times a week at the current dose. If any worsening symptoms we call. Otherwise will follow-up with a chest x-ray in 6 months. Prior to the next visit he should also get an EKG. 12/16/2024 the patient is here for pulmonary follow-up visit. Since we last spoke the patient was diagnosed with pneumonia. Chest x-ray demonstrated a worsening right upper lobe airspace disease. The patient had just had a stroke and likely aspiration related. He had been on the azithromycin daily in addition to that we had put him on cefpodoxime. His symptoms improved. He is not coughing as much. He is using nebulizer. Sometimes when uses it at night he does get choked up with secretions. Therefore I did time just to use it in the morning and then in the evening as needed. He should also be using his Acapella valve. The patient's exam is reassuring. Will have him get an x-ray today to make sure that this right upper lobe process as improved. If it looks any worse then will consider additional antibiotic therapy. The patient also had blood work done including a low magnesium level will have him go for blood work as well. The patient will return 4 months. He will continue to work with physical therapy occupational therapy for his recent stroke. Seems like he has already shown some improvement. 03/01/2025 the patient is here for pulmonary follow-up visit. Since we last spoke he went to the hospital again with pneumonia. Was back in January. He was given antibiotics and also chlorhexidine mouthwash. After she had a chest x-ray which I personally reviewed in February. Still has some evidence of airspace disease but very stable compared to his previous x-rays and his recent pneumonia. He states that he is still coughing up some phlegm although recently his cough has decrease in his phlegm production has decreased as well. His exam is indeed reassuring. He continues on the azithromycin on a daily basis. And he had been on the chlorhexidine mouthwash. He does not have his own dentition but still will go ahead and continue for a month to minimize risk of aspiration. He is doing better with the eating and he has actually gained some weight. His cough is also strong which is reassuring. Overall he is doing a little bit better. Will continue with current regimen will try to get another sputum if he is able to do so and will repeat the x-ray before the next visit in 3 months. He has any worsening symptoms or any concerning symptoms he can always call for an earlier assessment. [facility] Medical History Bronchiectasis COPD (chronic obstructive pulmonary disease) Mycobacterial disease Hernia HLD (hyperlipidemia) BPH (benign prostatic hyperplasia) Bronchiectasis Hemoptysis Pulmonary nodules Cough Abnormal chest x-ray Surgical History Hx of colonoscopy Social History Household Members: Spouse Housing: House Do you presently have visiting nurse or other home services: Yes Alcohol intake: former Patient Tobacco Use Status: Former Tobacco user Tobacco use type: Cigarette Years Smoked: 20 years service: Yes Review of Systems Const Denies headache(s), Denies night sweats, Reports weight gain and Denies weight loss ENT Denies change in voice, Denies headache(s), Denies lip swelling, Denies mouth pain, Reports nasal congestion, Reports nasal discharge and Denies tongue swelling Card Denies chest pain Resp Denies change in phlegm color, Reports chest congestion, Reports cough, Reports hemoptysis, Denies excessive phlegm production, Denies pain on inspiration and Denies pain with cough GI Denies abdominal pain, Denies diarrhea and Reports loose stools Musc Denies no additional complaints Neuro Reports as per HPI and Denies headache(s) Psych Denies no additional complaints Brad/Lymph Denies easy bleeding and Denies lymphadenopathy Aller/Immun Denies lip swelling and Denies tongue swelling Physical Exam Vital Signs: Last Vital Signs Pulse 86 03/01/25 09:22 BP 114/54 L 03/01/25 09:22 Pulse Ox 97 03/01/25 09:22 Oxygen Delivery Method Room Air 03/01/25 09:22 BMI result Body Mass Index 20.1 Last Vital Signs Temp 98.5 F 01/16/25 07:44 Pulse 94 01/16/25 08:33 Resp 18 01/16/25 08:33 BP 119/73 01/16/25 07:44 Pulse Ox 97 01/16/25 07:44 O2 Del Method Room Air 01/16/25 07:44 BMI result Body Mass Index 18.5 Const Other: Constitutional : Awake, interactive, not in distress Neck : Normal inspection, Supple Cardiovascular : RRR, no JVP, no lower extremity edema Respiratory : fair bilateral air entry, no crackles, wheezes or rhonchi Gastrointestinal: soft, lax, Normal bowel sounds, Non tender Skin : Warm, Dry Neurological : Alert & oriented x3, mild right sided weakness upper more than lower extremities General: comfortable Neck Neck: Yes supple Chest Chest palpation & inspection: abnormal inspection of the chest Resp Effort & Inspection: normal respiratory effort Auscultation: no crackles, no rales, no rhonchi and diminished lung sounds Cardio Rhythm: abnormal rhythm Heart sounds: S1 normal heart sound present and S2 normal heart sound present GI Palpation (GI): Soft to palpation Skin General skin exam: no rashes or lesions noted Extrem General: Yes no clubbing, cyanosis or edema Assessment & Plan Assessment & Plan (1) Bronchiectasis: Code(s): J47.9 - Bronchiectasis, uncomplicated Category: Medical Qualifiers: Bronchiectasis type: uncomplicated Qualified Code(s): J47.9 - Bronchiectasis, uncomplicated (2) Pulmonary nodules: Code(s): R91.8 - Other nonspecific abnormal finding of lung field Category: Medical (3) Cough: Code(s): R05 - Cough Category: Medical Qualifiers: Cough type: chronic Qualified Code(s): R05.3 - Chronic cough (4) Mycobacterial disease: Code(s): A31.9 - Mycobacterial infection, unspecified Category: Medical (5) COPD (chronic obstructive pulmonary disease): Code(s): J44.9 - Chronic obstructive pulmonary disease, unspecified Category: Medical Qualifiers: COPD type: chronic bronchitis Chronic bronchitis type: simple Qualified Code(s): J41.0 - Simple chronic bronchitis Plan CPT with neb and acapella valve continue nebulizer therapy with albuterol continue azithromycin 500mg MWF -->daily continue Chlorhexadine MW daily x 1 month, then stop Sputum cx CXR F/U 3 months Orders: Orders XR chest 2V Today R05.3 - Chronic cough Sputum Cult + Gram stain Today R91.1 - Solitary pulmonary nodule Medications: New chlorhexidine gluconate 0.12% 15 mL buccal DAILY 473 mL 11RF 30 days Coding Level of Care Code Est Pt Level 4 (25169) Complex EM visit Add On G2211 Diagnoses Bronchiectasis without complication J47.9 Bronchiectasis type: uncomplicated Pulmonary nodules R91.8 Chronic cough R05.3 Cough type: chronic Mycobacterial disease A31.9 Simple chronic bronchitis J41.0 COPD type: chronic bronchitis Chronic bronchitis type: simple Time Spent (min) 17
--- OUTSIDE RECORDS SUMMARY | 2025-03-01 10:08 | XMS_ITS | Clinical Summary ---
Author Organization [facility] Address [address] [place] [address] [place] [address] Phone Care Team Providers Care Media Services Specialist Name Role Phone Unavailable Primary Care Provider [...] Office Visit [facility] [address] [place] [address] Anurag John [...] patient's age to complete this topic Insurance [facility] Medicare
== END 2025-03-01 09:49 | disposition home or self-care (01) ==
LOC: HO.HPS 09:16
PROVIDERS: PCP Internal Medicine Medical Oncology; Visit Provider Hospitalist
DX: J47.9 Bronchiectasis, uncomplicated (principal); R91.8 Other nonspecific abnormal finding of lung field; R05.3 Chronic cough; A31.9 Mycobacterial infection, unspecified; J41.0 Simple chronic bronchitis
CPT/HCPCS: 99214; G2211

== ENCOUNTER → 2025-03-01 09:16 | Outpatient (BNVA) | payer MEDICARE, SELFPAY | PROVIDERS: PCP Internal Medicine Medical Oncology; Visit Provider Hospitalist | DX: J47.9 Bronchiectasis, uncomplicated (principal); J41.0 Simple chronic bronchitis; R91.8 Other nonspecific abnormal finding of lung field; A31.9 Mycobacterial infection, unspecified | CPT/HCPCS: 99212 ==

== ENCOUNTER 2025-03-12 | Outpatient (REF) | payer MEDICARE, SELFPAY | END 2025-03-12 00:01 | disposition home or self-care (01) | LOC: HO.LNP | PROVIDERS: Visit Provider Hospitalist | DX: R91.1 Solitary pulmonary nodule (principal) | CPT/HCPCS: 87070; 87116; 87118; 87205; 87206 ==

== ENCOUNTER 2025-03-13 14:25 | Outpatient (REF) | payer MEDICARE, SELFPAY ==
--- OUTSIDE RECORDS SUMMARY | 2025-03-13 14:55 | XMS_ITS | Patient Health Record ---
Author Organization Robbie Kothari III, MD Address [address] [place] [address] Care Team Providers Care Pocket Assembler Name Role Phone Robbie Kothari Primary Care Provider Allergies Allergen (clinical drug ingredient) Drug/Non Drug Allergy documented on EMR Reaction Allergy Type Onset Date Status No Known Drug Allergy Unknown Drug Allergy Active No Known Food Allergy Unknown Drug Allergy Active Results Component Value Reference Range Notes Hold Lt Blue - Possible Coag Reviewed date:10/30/2024 09:55:19 AM Interpretation: Performing Lab:[facility], [address] [place] [phone] Notes/Report: Hold Lt Blue - Possible Coag SEE NOTE Specimen will be held untested for 4 hours. Call Hematology if testing is desired. Comprehensive Met. Panel Reviewed date:10/30/2024 09:55:19 AM Interpretation: Performing Lab:[facility], [address] [place] [phone] Notes/Report: Sodium 131 135-145 mmol/L Potassium 4.2 [...] Magnesium Reviewed date:10/30/2024 09:55:19 AM Interpretation: Performing Lab:[address] [address] Notes/Report: Magnesium 1.5 1.6-2.6 mg/dL Troponin-I High Sensitivity Reviewed date:10/30/2024 09:55:19 AM Interpretation: Performing Lab:[facility], [address] [place] [phone] Notes/Report: Troponin-I High Sensitivity 3.1 <3.5-35.0 ng/L The Duran high sensitivity Troponin-I results should be used in conjunction with other diagnostic information such as ECG, clinical observations and information, and patient symptoms to aid in the diagnosis of [place]. SARS-CoV2/FLU/RSV Reviewed date:10/30/2024 09:55:19 AM Interpretation: Performing Lab:[address] [address] Notes/Report: Influenza A PCR NEGATIVE Negative Influenza [...] by authorized laboratories. Testing performed on the [employer] GeneXpert utilizing real-time RT-PCR. All SARS CoV2 and positive influenza A/B results are reported to [facility]. CT head for stroke Reviewed date:10/30/2024 09:55:19 AM Interpretation: Performing Lab: Notes/Report: [address] [address] [address] Scan Report Signed Patient: Freeman King MR#: [id number] [birth year] : 1940 Acct:[id number] Age/Sex: 84 / M ADM Date: 10/27/24 Loc: HO.ED Attending Dr: Ordering Physician: Alejandrina Mazariegos Date of Service: 10/27/24 Procedure(s): CT head for STROKE Accession Number(s): [id number] cc: Robbie Kothari MD; Alejandrina Mazariegos Report Number: [id number]: Total DLP = 799.00 mGy-cm EXAMINATION: CT [...] lobe. There is resultant mass effect and uuzh-je-aljlc midline shift of 3 mm. There is [...] atrium. 3. There is 3 mm of hirq-ob-orbfu midline shift. No impending herniation at this time. This critical result was discussed with Alejandrina Mazariegos at 12:11 PM, on 10/27/2024 via phone call. Electronically signed by: Zohaib Brown MD 10/27/2024 12:14 PM [facility] Dictated By: Zohaib Brown MD Signed By: <Electronically signed by Zohaib Brown MD in OV> 10/27/24 1214 DD/ 1148 TD/TT: 10/27/24 1156 Abattoir Supervisor: [place] [address] [place] Scan Report Signed Patient: Jeremiah King MR#: [id number] 30 : 1940 Acct:[id number] Age/Sex: 84 / M ADM Date: 10/27/24 Loc: HO.ED Attending Dr: Ordering Physician: Alejandrina Mazariegos Date of Service: 10/27/24 Procedure(s): CT hea d for STROKE Accession Number(s): [id number] cc: Robbie Kothari MD; Alejandrina Mazariegos Report [...] There is resultant m ass effect and pxyu-ry-zwgot midline shift of 3 mm. There is [...] atrium. 3. There is 3 mm of uran-xk-cctzg midline shift. No impending herniation at this time. This critical result was discussed with Alejandrina Mazariegos at 12:11 PM, on 10/27/2024 via phone call. Electronically gurpreet d by: Zohaib Brown MD 10/27/2024 12:14 PM [facility] Dictated By: Zohaib Brown MD Signed By: <Electronically signed by Zohaib Brown MD in OV> 10/27/24 1214 DD/ 1148 TD/TT: 10/27/24 1156 Abattoir Supervisor: CT cervical spine wo con Reviewed date:10/30/2024 09:55:19 AM Interpretation: Performing Lab: Notes/Report: [address] [address] [address] Scan Report Signed Patient: Freeman King MR#: [id number] [birth year] : 1940 Acct:[id number] Age/Sex: 84 / M ADM Date: 10/27/24 Loc: HO.ED Attending Dr: Ordering Physician: Alejandrina Mazariegos Date of Service: 10/27/24 Procedure(s): CT cervical spine wo IV con Accession Number(s): [id number] cc: Robbie Kothari MD; Alejandrina Mazariegos Report Number: [id number]: Total DLP = 376.00 mGy-cm EXAMINATION: CT [...] by: Zohaib Brown MD 10/27/2024 02:23 PM [facility] Dictated By: Zohaib Brown MD Signed By: <Electronically signed by Zohaib Brown MD in OV> 10/27/24 1423 DD/ 1212 TD/TT: 10/27/24 1334 Abattoir Supervisor: [place] [address] CT Scan Report Signed Patient: Jeremiah King MR#: [id number] 30 : 1940 Acct:[id number] Age/Sex: 84 / M ADM Date: 10/27/24 Loc: HO.ED Attending Dr: Ordering Physician: Alejandrina Mazariegos Date of Service: 10/27/24 Procedure(s): CT cer vical spine wo IV con Accession Number(s): [id number] cc: Robbie Kothari MD; Alejandrina Mazariegos Report [...] by: Zohaib Brown MD 10/27/2024 02:23 PM [facility] Dictated By: Zohaib Brown MD Signed By: <Electronically signed by Zohaib Brown MD in OV> 10/27/24 1423 DD/ 1212 TD/TT: 10/27/24 1334 Abattoir Supervisor: XR chest 1V Reviewed date:10/30/2024 09:55:19 AM Interpretation: Performing Lab: Notes/Report: [address] [address] XRay Report Signed Patient: Freeman King MR#: [id number] [birth year] : 1940 Acct:[id number] Age/Sex: 84 / M ADM Date: 10/27/24 Loc: HO.ED Attending Dr: Ordering Physician: Alejandrina Mazariegos Date of Service: 10/27/24 Procedure(s): XR chest 1V Accession Number(s): [id number] cc: Robbie Kothari MD; Alejandrina Mazariegos EXAMINATION: [...] by: Zohaib Brown MD 10/27/2024 01:41 PM [facility] Dictated By: Zohaib Brown MD Signed By: <Electronically signed by Zohaib Brown MD in OV> 10/27/24 1341 DD/ 1127 TD/TT: 10/27/24 1328 Abattoir Supervisor: [address] [address] XRay Report Signed Patient: Jeremiah King MR#: [id number] 30 : 1940 Acct:[id number] Age/Sex: 84 / M ADM Date: 10/27/24 Loc: HO.ED Attending Dr: Ordering Physician: Alejandrina Mazariegos Date of Service: 10/27/24 Procedure(s): XR chest 1V Accession Number(s): [id number] cc: Robbie Kothari MD; Alejandrina Mazariegos EXAMINATION: [...] by: Zohaib Brown MD 10/27/2024 01:41 PM [facility] Dictated By: Zohaib Brown MD Signed By: <Electronically signed by Zohaib Brown MD in OV> 10/27/24 1341 DD/ 1127 TD/TT: 10/27/24 1328 Abattoir Supervisor: XR chest 2V Reviewed date:12/16/2024 03:30:40 PM Interpretation: Performing Lab: Notes/Report: [address] [address] XRay Report Signed Patient: Freeman King MR#: [id number] 30 : 1940 Acct:[id number] Age/Sex: 84 / M ADM Date: 12/02/24 Loc: HO.XRAY Attending Dr: Robbie Kothari MD Ordering Physician: Denilson Minor MD Date of Service: 12/02/24 Procedure(s): XR chest 2V Accession Number(s): [id number] cc: Robbie Kothari MD; Denilson Minor MD [...] 12/02/24 1150 DD/ 1042 TD/TT: 12/02/24 1052 [employer]attoir Supervisor: [place] [address] XRay Report Signed Patient: Jeremiah King MR#: [id number] [birth year] : 1940 Acct:[id number] Age/Sex: 84 / M ADM Date: 12/02/24 Loc: JILLIAN Attending Dr: Robbie Kothari MD Ordering Physician: Denilson Minor MD Date of Service: 12/02/24 Procedure(s): XR chest 2V Accession Number(s): [id number] cc: Robbie Kothari MD; Denilson Minor MD [...] 12/02/24 1150 DD/ 1042 TD/TT: 12/02/24 1052 Abattoir Supervisor: Complete Blood Count Auto Di ff Reviewed date:12/16/2024 03:30:40 PM Interpretation: Performing Lab:[facility], [address] [place] [phone] Notes/Report: White Blood Count 5.2 4.8-10.8 X10*3/uL [...] Panel Reviewed date:12/16/2024 03:30:40 PM Interpretation: Performing Lab:[address] [address] Notes/Report: Sodium 136 135-145 mmol/L Potassium 3.9 [...] Magnesium Reviewed date:12/16/2024 03:30:40 PM Interpretation: Performing Lab:[facility], [address] [place] [phone] Notes/Report: Magnesium 1.8 1.6-2.6 mg/dL XR chest 2V Reviewed date:12/16/2024 03:30:40 PM Interpretation: Performing Lab: Notes/Report: [address] [address] XRay Report Signed Patient: Freeman King MR#: [id number] [birth year] : 1940 Acct:[id number] Age/Sex: 84 / M ADM Date: 12/16/24 Loc: JILLIAN Attending Dr: Denilson Minor MD Ordering Physician: Denilson Minor MD Date of Service: 12/16/24 Procedure(s): XR chest 2V Accession Number(s): [id number] cc: Robbie Kothari MD; Denilson Minor MD [...] 12/16/24 1138 DD/ 1048 TD/TT: 12/16/24 1110 [employer]attoir Supervisor: [place] [address] XRay Report Signed Patient: Jeremiah King MR#: [id number] [birth year] : 1940 Acct:[id number] Age/Sex: 84 / M ADM Date: 12/16/24 Loc: .XRAY Attending Dr: Denilson Minor MD Ordering Physician: Denilson Minor MD Date of Service: 12/16/24 Procedure(s): XR chest 2V Accession Number(s): [id number] cc: Robbie Kothari MD; Denilson Minor MD [...] 12/16/24 1138 DD/ 1048 TD/TT: 12/16/24 1110 Abattoir Supervisor: Complete Blood Count Auto Di ff Reviewed date:12/30/2024 08:37:25 PM Interpretation: Performing Lab:[facility], [address] [place] [phone] Notes/Report: White Blood Count 6.5 4.8-10.8 X10*3/uL [...] NRBC Abs Auto 0.000 0.0-0.012 X10*3/uL Comprehensive Western. Panel Fa Reviewed date:12/30/2024 08:37:25 PM Interpretation: Performing Lab:[address] [address] Notes/Report: Sodium 135 135-145 mmol/L Potassium 4.2 [...] Panel Reviewed date:12/30/2024 08:37:25 PM Interpretation: Performing Lab:[facility], [address] [place] [phone] Notes/Report: Triglycerides 84 <150 mg/dL Desirable Triglyceride: [...] Antigen Reviewed date:12/30/2024 08:37:25 PM Interpretation: Performing Lab:[facility], [address] [place] [phone] Notes/Report: Prostate Specific Antigen 2.95 <0.05-4.0 ng/mL PSA methodology: Duran Alinity i Chemiluminescent Microparticle Immunoassay (CMIA) Complete Blood Count Auto Di ff Reviewed date:12/30/2024 08:37:25 PM Interpretation: Performing Lab:[facility], [address] [place] [phone] Notes/Report: White Blood Count 9.1 4.8-10.8 X10*3/uL [...] te Reviewed date:12/30/2024 08:37:25 PM Interpretation: Performing Lab:[facility], [address] [place] [phone] Notes/Report: Erythrocyte Sedimentation Rate 60 0-15 MM/HR Patients with polycythemia and many hemoglobin abnormalities may have depressed sed rates whereas patients with anemia may have elevated sed rates. Partial Thromboplastin Time Reviewed date:12/30/2024 08:37:25 PM Interpretation: Performing Lab:[facility], [address] [place] [phone] Notes/Report: Partial Thromboplastin Time 33.0 26.0-36.8 SEC For information regarding the monitoring of direct thrombin inhibitors, please refer to Pharmacy. Comprehensive Met. Panel Reviewed date:12/30/2024 08:37:25 PM Interpretation: Performing Lab:[facility], [address] [place] [phone] Notes/Report: Sodium 132 135-145 mmol/L Potassium 4.9 [...] Acid Reviewed date:12/30/2024 08:37:25 PM Interpretation: Performing Lab:[facility], [address] [place] [phone] Notes/Report: Lactic Acid 1.0 0.5-2.0 mmol/L Uric Acid Reviewed date:12/30/2024 08:37:25 PM Interpretation: Performing Lab:[facility], [address] [place] [phone] Notes/Report: Uric Acid 4.1 3.4-7.0 mg/dL Magnesium Reviewed date:12/30/2024 08:37:25 PM Interpretation: Performing Lab:[facility], [address] [place] [phone] Notes/Report: Magnesium 1.7 1.6-2.6 mg/dL Troponin-I High Sensitivity Reviewed date:12/30/2024 08:37:25 PM Interpretation: Performing Lab:[facility], [address] [place] [phone] Notes/Report: Troponin-I High Sensitivity 3.4 <3.5-35.0 ng/L The Duran high sensitivity Troponin-I results should be used in conjunction with other diagnostic information such as ECG, clinical observations and information, and patient symptoms to aid in the diagnosis of [place]. C Reactive Protein Reviewed date:12/30/2024 08:37:25 PM Interpretation: Performing Lab:[facility], [address] [place] [phone] Notes/Report: C Reactive Protein 4.85 < or = 0.50 mg/dL B Type Natriuretic Peptide Reviewed date:12/30/2024 08:37:25 PM Interpretation: Performing Lab:[facility], [address] [place] [phone] Notes/Report: B Type Natriuretic Peptide 82 <100 pg/mL Lipase Reviewed date:12/30/2024 08:37:25 PM Interpretation: Performing Lab:[facility], [address] [place] [phone] Notes/Report: Lipase 43 8-78 U/L UA CC w/rflx Micro + Cult Reviewed date:12/30/2024 08:37:25 PM Interpretation: Performing Lab:[facility], [address] [place] [phone] Notes/Report: Urine, Clean Catch Color Urine Yellow Appearance Urine Clear PH 7.5 5.0-9.0 Glucose Urine UA Negative Negative mg/dL Urine Blood Negative Negative Specific [place] - Urine >= 1.030 1.005-1.025 Urine Protein Negative Neg-Trace mg/dL Urine Ketones Negative Negative mg/dL Nitrite Urine Negative Negative Leukocyte Esterase Urine Negative Negative SARS-CoV2/FLU/RSV Reviewed date:12/30/2024 08:37:25 PM Interpretation: Performing Lab:[address] [phone] Notes/Report: Influenza A PCR NEGATIVE Negative Influenza [...] by authorized laboratories. Testing performed on the [employer] GeneXpert utilizing real-time RT-PCR. All SARS CoV2 and positive influenza A/B results are reported to [facility]. Blood Culture (First) Reviewed date:01/14/2025 08:40:47 PM Interpretation: Performing Lab:[facility], [address] [place] [phone] Notes/Report: Blood Culture (First) No growth after 5 days. Blood Culture (Second) Reviewed date:01/14/2025 08:40:47 PM Interpretation: Performing Lab:[facility], [address] [place] [phone] Notes/Report: Blood Culture (Second) No growth after [address] angio head neck Reviewed date:12/30/2024 08:37:25 PM Interpretation: Performing Lab: Notes/Report: [address] [address] [address] Scan Report Signed Patient: Freeman King MR#: [id number] [birth year] : 1940 Acct:[id number] Age/Sex: 84 / M ADM Date: 12/30/24 Loc: HO.ED Attending Dr: Ordering Physician: Rahul Zamora MD Date of Service: 12/30/24 Procedure(s): CT angio head neck Accession Number(s): [id number] cc: Robbie Kothari MD; Rahul Zamora MD Report Number: [id number]: Total DLP = 1652.00 mGy-cm EXAMINATION: CTA [...] intimal flap. Superior cerebellar arteries are patent. 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 No focal stenosis. [...] 12/30/24 1225 DD/ 1133 TD/TT: 12/30/24 1155 Abattoir Supervisor: [address] [address] [address] Scan Report Signed Patient: Jeremiah King MR#: [id number] [birth year] : 1940 Acct:[id number] Age/Sex: 84 / M ADM Date: 12/30/24 Loc: HO.ED Attending Dr: Ordering Physician: Rahul Zamora MD Date of Service: 12/30/24 Procedure(s): CT ang io head neck Accession Number(s): [id number] cc: Robbie Kothari MD; Rahul Zamora MD [...] intimal flap. Superior cerebellar arteries are patent. 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 No focal stenosis. [...] 12/30/24 1225 DD/ 1133 TD/TT: 12/30/24 1155 Abattoir Supervisor: XR wrist RT 2V Reviewed date:12/30/2024 08:37:25 PM Interpretation: Performing Lab: Notes/Report: [address] [address] XRay Report Signed Patient: Freeman King MR#: [id number] [birth year] : 1940 Acct:[id number] Age/Sex: 84 / M ADM Date: 12/30/24 Loc: HO.ED Attending Dr: Ordering Physician: Rahul Zamora MD Date of Service: 12/30/24 Procedure(s): XR wrist RT 2V Accession Number(s): [id number] cc: Robbie Kothari MD; Rahul Zamora MD [...] 12/30/24 1300 DD/ 1243 TD/TT: 12/30/24 1255 Abattoir Supervisor: [address] [address] XRay Report Signed Patient: Jeremiah King MR#: [id number] [birth year] : 1940 Acct:[id number] Age/Sex: 84 / M ADM Date: 12/30/24 Loc: HO.ED Attending Dr: Ordering Physician: Rahul Zamora MD Date of Service: 12/30/24 Procedure(s): XR wri st RT 2V Accession Number(s): [id number] cc: Robbie Kothari MD; Rahul Zamora MD [...] 12/30/24 1300 DD/ 1243 TD/TT: 12/30/24 1255 Abattoir Supervisor: XR chest 1V Reviewed date:12/30/2024 08:37:25 PM Interpretation: Performing Lab: Notes/Report: [address] [address] XRay Report Signed Patient: Freeman King MR#: [id number] [birth year] : 1940 Acct:[id number] Age/Sex: 84 / M ADM Date: 12/30/24 Loc: .ED Attending Dr: Ordering Physician: Rahul Zamora MD Date of Service: 12/30/24 Procedure(s): XR chest 1V Accession Number(s): [id number] cc: Robbie Kothari MD; Rahul Zamora MD [...] Zohaib Brown MD 12/30/2024 12:10 PM EDT Dictated By: Zohaib Brown MD Signed By: <Electronically signed by Zohaib Brown MD in OV> 12/30/24 1210 DD/ 1031 TD/TT: 12/30/24 1149 [employer]ir Supervisor: [place] [address] XRay Report Signed Patient: Jereimah King MR#: [id number] [birth year] : 1940 Acct:[id number] Age/Sex: 84 / M ADM Date: 12/30/24 Loc: .ED Attending Dr: Ordering Physician: Rahul Zamora MD Date of Service: 12/30/24 Procedure(s): XR chest 1V Accession Number(s): [id number] cc: Robbie Kothari MD; Rahul Zamora MD [...] 12/30/24 1210 DD/ 1031 TD/TT: 12/30/24 1149 Abattoir Supervisor: XR hand RT min 3V Reviewed date:12/30/2024 08:37:25 PM Interpretation: Performing Lab: Notes/Report: [address] [address] XRay Report Signed Patient: Freeman King MR#: [id number] [birth year] : 1940 Acct:[id number] Age/Sex: 84 / M ADM Date: 12/30/24 Loc: .ED Attending Dr: Ordering Physician: Rahul Zamora MD Date of Service: 12/30/24 Procedure(s): XR hand RT min 3V Accession Number(s): [id number] cc: Robbie Kothari MD; Rahul Zamora MD [...] 12/30/24 1301 DD/ 1243 TD/TT: 12/30/24 1255 [employer]attoir Supervisor: [address] [address] XRay Report Signed Patient: Jeremiah King MR#: [id number] [birth year] : 1940 Acct:[id number] Age/Sex: 84 / M ADM Date: 12/30/24 Loc: HO.ED Attending Dr: Ordering Physician: Rahul Zamora MD Date of Service: 12/30/24 Procedure(s): XR camcaho d RT min 3V Accession Number(s): [id number] cc: Robbie Kothari MD; Rahul Zamora MD [...] 01:01 PM EDT RP Dictated By: Lázaro Garcia MD Signed By: <Electronically signed by Lázaro Monique MD in OV> 12/30/24 1301 DD/ 1243 TD/TT: 12/30/24 1255 Abattoir Supervisor: Renae Coates Hematolo gy Reviewed date:01/01/2025 10:45:53 AM Interpretation: Performing Lab:[facility], [address] [place] [phone] Notes/Report: Hold Lav - Possible Hematology SEE NOTE Specimen will be held untested for 8 hours. Call Hematology if testing is desired. Basic Metabolic Panel Reviewed date:01/01/2025 10:45:53 AM Interpretation: Performing Lab:[facility], [address] [place] [phone] Notes/Report: Sodium 135 135-145 mmol/L Potassium 4.2 [...] mg/dL Complete Blood Count Auto Di ff Reviewed date:01/14/2025 08:40:47 PM Interpretation: Performing Lab:[facility], [address] [place] [phone] Notes/Report: White Blood Count 7.5 4.8-10.8 X10*3/uL [...] X10*3/uL Hold Lt Blue - Possible Coag Reviewed date:01/14/2025 08:40:47 PM Interpretation: Performing Lab:[facility], [address] [place] [phone] Notes/Report: Hold Lt Blue - Possible Coag SEE NOTE Specimen will be held untested for 4 hours. Call Hematology if testing is desired. Liver Panel Reviewed date:01/14/2025 08:40:47 PM Interpretation: Performing Lab:[facility], [address] [place] [phone] Notes/Report: Bilirubin Total 1.0 0.0-1.0 mg/dL Bilirubin Direct 0.3 0.0-0.5 mg/dL Aspartate Amino Transferase 28 5-37 U/L Slight Hemolysis.Interpret result with caution. Alanine Aminotransferase 12 0-40 U/L Total Protein 7.4 6.5-8.0 g/dL Albumin Level 3.6 3.5-5.0 g/dL Alkaline Phosphatase 70 39-117 U/L Basic Metabolic Panel Reviewed date:01/14/2025 08:40:47 PM Interpretation: Performing Lab:[facility], [address] [place] [phone] Notes/Report: Sodium 130 135-145 mmol/L Potassium 4.4 [...] 83 60-115 mg/dL Calcium 9.4 8.4-10.2 mg/dL Lactic Acid Reviewed date:01/14/2025 08:40:47 PM Interpretation: Performing Lab:[facility], [address] [place] [phone] Notes/Report: Lactic Acid 0.8 0.5-2.0 mmol/L Magnesium Reviewed date:01/14/2025 08:40:47 PM Interpretation: Performing Lab:[facility], [address] [place] [phone] Notes/Report: Magnesium 1.8 1.6-2.6 mg/dL Troponin-I High Sensitivity Reviewed date:01/14/2025 08:40:47 PM Interpretation: Performing Lab:[address] [address] Notes/Report: Troponin-I High Sensitivity 3.3 <3.5-35.0 ng/L The Duran high sensitivity Troponin-I results should be used in conjunction with other diagnostic information such as ECG, clinical observations and information, and patient symptoms to aid in the diagnosis of [place]. C Reactive Protein Reviewed date:01/14/2025 08:40:47 PM Interpretation: Performing Lab:[facility], [address] [place] [phone] Notes/Report: C Reactive Protein 13.61 < or = 0.50 mg/dL B Type Natriuretic Peptide Reviewed date:01/14/2025 08:40:47 PM Interpretation: Performing Lab:[facility], [address] [place] [phone] Notes/Report: B Type Natriuretic Peptide 53 <100 pg/mL Procalcitonin Reviewed date:01/14/2025 08:40:47 PM Interpretation: Performing Lab:[facility], [address] [place] [phone] Notes/Report: Procalcitonin 0.04 Procalcitonin (PCT) Reference Range: PCT greater than 2.0 ng/mL: A PCT level above 2.0 ng/mL on the first day of ICU admission is associated with a high risk for progression to severe sepsis and/or septic shock. PCT less than 0.5 ng/mL: A PCT level below 0.5 ng/mL on the first day of ICU admission is associated with a low risk for progression to severe sepsis and/or septic shock. PCT levels below 0.5 ng/mL do not exclude an infection. Care must be taken in interpreting PCT results from different laboratories and methodologies. References: [place] [employer]/Society of Critical Care Medicine Consensus Conference Committee. Definitions for sepsis and organ failure and guidelines for the use of innovative therapies in sepsis. Crit Care Med 1992;20(6):864-874. Dillard B, Naqvi KL, Schathomaser H, et al. Calcitonin precursors are reliable markers of sepsis in a medical intensive care unit. Crit Care Med 2000;363:600-607. Toya S, Aditi K, Emely C, et al. Diagnostic value of procalcitonin, interleukin-6 and interleukin-8 in critically ill patients admitted with suspected sepsis. AM J Respir Crit Care Med 2001;164:396-402. US Food and Drug Administration. 510(k) substantial equivalence determination decision summary for [facility] PCT [facility]. http://www.accessda ta.fda.fov/cdrh_doc s/reviews/Y708644.p df. Published September 2004. Accessed February 2017. Gram stain Reviewed date:01/17/2025 05:36:47 AM Interpretation: Performing Lab:[facility], [address] [place] [phone] Notes/Report: Gram stain Gram stain results: Gram stain 4+ polys Gram stain 1+ epithelial cells Gram stain 4+ red blood cells Gram stain 1+ Gram-positive cocci UA CC w/rflx Micro + Cult Reviewed date:01/14/2025 08:40:47 PM Interpretation: Performing Lab:[address] [phone] Notes/Report: Urine, Catheterized Color Urine Yellow Appearance Urine Clear PH 6.0 5.0-9.0 Glucose Urine UA Negative Negative mg/dL Urine Blood Negative Negative Specific [place] - Urine 1.020 1.005-1.025 Urine Protein Negative Neg-Trace mg/dL Urine Ketones Negative Negative mg/dL Nitrite Urine Negative Negative Leukocyte Esterase Urine Negative Negative SARS-CoV2/FLU/RSV Reviewed date:01/14/2025 08:40:47 PM Interpretation: Performing Lab:[address] [phone] Notes/Report: Influenza A PCR NEGATIVE Negative Influenza [...] by authorized laboratories. Testing performed on the [employer] GeneXpert utilizing real-time RT-PCR. All SARS CoV2 and positive influenza A/B results are reported to [facility]. Blood Culture (First) Reviewed date:02/12/2025 08:15:10 PM Interpretation: Performing Lab:[facility], [address] [place] [phone] Notes/Report: Blood Culture (First) No growth after 5 days. Blood Culture (Second) Reviewed date:02/12/2025 08:15:10 PM Interpretation: Performing Lab:[address] [address] Notes/Report: Blood Culture (Second) No growth after 5 days. Sputum Culture Reviewed date:01/17/2025 05:36:47 AM Interpretation: Performing Lab:[facility], [address] [place] [phone] Notes/Report: Sputum Culture BAP Sputum Culture 2+ Mixed respiratory ramon. CT chest wo con Reviewed date:01/14/2025 08:40:47 PM Interpretation: Performing Lab: Notes/Report: [address] [address] [address] Scan Report Signed Patient: Freeman King MR#: [id number] 30 : 1940 Acct:[id number] Age/Sex: 84 / M ADM Date: 01/13/25 Loc: .S3 358-[address]: Tommy Rodriguez MD Ordering Physician: Linette Brown Date of Service: 01/13/25 Procedure(s): CT chest wo IV con Accession Number(s): [id number] cc: Linette Brown; Robbie Kothari MD Report Number: [id number]: Total DLP = 336.00 mGy-cm CLINICAL HISTORY: Pt with hemoptysis, ?RUL and LLL pneumonia CT chest without contrast Comparison: CT/REG/MS/SR - CT CHEST WO IV CON - 11/23/23 07:28 EDT Findings: The heart size is normal. Calcification of the coronary vasculature. The visualized thyroid and mediastinum are unremarkable. There is increased multifocal ill-defined bilateral pulmonary nodular densities. Bilateral upper lobe scarring with traction bronchiectasis is present, which has progressed. The upper abdomen is unremarkable. The bones are intact. IMPRESSION: 1. Increased bilateral pulmonary opacities as described above. Differential considerations include granulomatous processes, as well as mycobacterial or fungal infection. Follow up chest CT in 3 months is recommended to exclude the less likely possibility of underlying neoplasm. 2. Coronary artery disease. This document has been electronically signed by: Richa Cerda MD on 01/13/2025 17:46:17 Dictated By: Richa Cerda MD Signed By: <Electronically signed by Richa Cerda MD in OV> 01/13/25 174 DD/ 45 TD/TT: 01/13/251745 Abattoir Supervisor: [address] [address] [address] Scan Report Signed Patient: Jeremiah King MR#: [id number] 30 : 1940 Acct:[id number] Age/Sex: 84 / M ADM Date: 01/13/25 Loc: .S3 358-[address]: Tommy Rodriguez MD Ordering Physician: Linette Brown Date of Service: 01/13/25 Procedure(s): CT yuridia st wo IV con Accession Number(s): [id number] cc: Linette Brown; Robbie Kothari MD Report Number: [id number]: Total DLP = 336.00 mGy-cm CLINICAL HISTORY: Pt with hemoptysis, ?RUL and LLL pneumonia CT chest without contrast Comparison: CT/REG/P R/SR - CT CHEST WO IV CON - 11/23/23 07:28 EDT Findings: The heart size is no rmal. Calcification of the coronary vasculature. The visualized thyro id and mediastinum are unremarkable. There is increased multifocal ill-defined bilateral pulmonary nodular densities. Bilateral upper lobe scarring with traction bronchiectasis is present, which has progressed. The upper abdomen is unremarkable. The bones are intact. IMPRESSION: 1. Increased bilater al pulmonary opacities as described above. Differential considerations include granulomatous processes, as well as mycobacterial or fun gal infection. Follow up chest CT in 3 months is recommended to exclu de the less likely possibility of underlying neoplasm. 2. Coronary artery disease. This document has be en electronically signed by: Richa Cerda MD on 01/13/2025 17:46:17 Dictated By: Antonio Cerda MD Signed By: <Electronically signed by Richa Cerda MD in OV> 01/13/251746 DD/ 174 TD/TT: 01/13/25 174 Abattoir Supervisor: CT head/brain wo con Reviewed date:01/14/2025 08:40:47 PM Interpretation: Performing Lab: Notes/Report: [address] [address] [address] Scan Report Signed Patient: Freeman King MR#: [id number] [birth year] : 1940 Acct:[id number] Age/Sex: 84 / M ADM Date: 01/13/25 Loc: HO.ED Attending Dr: Ordering Physician: Taras Spencer MD Date of Service: 01/13/25 Procedure(s): CT head/brain wo IV con Accession Number(s): [id number] cc: Robbie Kothari MD; Taras Spencer MD Report Number: [id number]: Total DLP = 726.00 mGy-cm EXAMINATION: CT [...] 12:35 PM EDT RP Dictated By: Lázaro Elias MD Signed By: <Electronically signed by Lázaro Monique MD in OV> 01/13/25 1235 DD/ 1215 TD/TT: 01/13/25 1226 Abattoir Supervisor: [address] [address] [address] Scan Report Signed Patient: Jeremiah King MR#: [id number] [birth year] : 1940 Acct:[id number] Age/Sex: 84 / M ADM Date: 01/13/25 Loc: HO.ED Attending Dr: Ordering Physician: Taars Spencer MD Date of Service: 01/13/25 Procedure(s): CT head/brain wo IV con Accession Number(s): [id number] cc: Robbie Kotahri MD; Taras Spencer MD Report Number: [id number] [...] 01/13/25 1235 DD/ 1215 TD/TT: 01/13/25 1226 Abattoir Supervisor: XR chest 1V Reviewed date:01/14/2025 08:40:47 PM Interpretation: Performing Lab: Notes/Report: [address] [address] XRay Report Signed Patient: Freeman King MR#: [id number] [birth year] : 1940 Acct:[id number] Age/Sex: 84 / M ADM Date: 01/13/25 Loc: HO.ED Attending Dr: Ordering Physician: Taras Spencer MD Date of Service: 01/13/25 Procedure(s): XR chest 1V Accession Number(s): [id number] cc: Robbie Kothari MD; Taras Spencer MD [...] 01/13/25 1228 DD/ 1222 TD/TT: 01/13/25 1222 Abattoir Supervisor: [address] [address] XRay Report Signed Patient: Jeremiah King MR#: [id number] [birth year] : 1940 Acct:[id number] Age/Sex: 84 / M ADM Date: 01/13/25 Loc: HO.ED Attending Dr: Ordering Physician: Taras Spencer MD Date of Service: 01/13/25 Procedure(s): XR chest 1V Accession Number(s): [id number] cc: Robbie Kothari MD; Taras Spencer MD [...] 01/13/25 1228 DD/ 1222 TD/TT: 01/13/25 1222 Abattoir Supervisor: Hold Lav - Possible Hematolo gy Reviewed date:01/14/2025 08:40:46 PM Interpretation: Performing Lab:[facility], [address] [place] [phone] Notes/Report: Hold Lav - Possible Hematology SEE NOTE Specimen will be held untested for 8 hours. Call Hematology if testing is desired. Basic Metabolic Panel Reviewed date:01/14/2025 08:40:47 PM Interpretation: Performing Lab:[facility], [address] [place] [phone] Notes/Report: Sodium 130 135-145 mmol/L Potassium 4.0 3.3-5.1 mmol/L Chloride 98 96-108 mmol/L Carbon Dioxide 24 22-29 mmol/L Anion Gap 12 12-20 Blood Urea Nitrogen 11 9-16 mg/dL Creatinine 0.67 0.5-1.4 mg/dL Creatinine Clr Calc Pharmacy 80.0 eGFR (calculated from the MDRD study equation) and eCrCl (calculated from the Cockcroft-Gault equation) are based on different parameters and may not yield comparable results. If eCrCl result is absurd, please check patient's height/weight. Estimated Glomerular Filt Rate > 60 Chronic Kidney Disease: Estimated GFR < 60 mL/min/1.73m2 Severe Kidney Disease: Estimated GFR < 15 mL/min/1.73m2 Glucose Random 95 60-115 mg/dL Calcium 8.8 8.4-10.2 mg/dL Osmolality Urine Reviewed date:01/14/2025 08:40:47 PM Interpretation: Performing Lab:[address] [address] Notes/Report: Osmolality Urine 577 [address]-2069 mosm/kg Sodium Urine Random Reviewed date:01/14/2025 08:40:47 PM Interpretation: Performing Lab:[address] [address] Notes/Report: Sodium Urine Random 93.0 Vancomycin Random Reviewed date:01/14/2025 08:40:47 PM Interpretation: Performing Lab:[address] [address] Notes/Report: Vancomycin Random 9.3 15-20 mcg/mL Complete Blood Count Auto Di ff Reviewed date:01/15/2025 06:45:37 AM Interpretation: Performing Lab:[address] [address] Notes/Report: White Blood Count 5.0 4.8-10.8 X10*3/uL Red Blood Count 3.33 4.60-5.80 X10*6/uL Hemoglobin 10.8 14.0-18.0 g/dl Hematocrit 30.1 42.0-52.0 % Mean Corpuscular Volume 90.4 80.0-98.0 fL Mean Corpuscular Hemoglobin 32.4 27.0-33.0 pg Mean Corpuscular HGB Conc 35.9 31.0-36.0 g/dl Red Cell Distribution Width 13.3 11.0-16.0 % Platelet Count 212 160-400 X10*3/uL Mean Platelet Volume 9.5 9.4-12.4 fL Neutrophils Percent Auto 63.2 45-73 % Imm Gran Pct Auto 0.6 0.0-0.4 % Lymphocytes Percent Auto 15.4 20-40 % Monocytes Percent Auto 12.0 2-11 % Eosinophils Percent Auto 6.8 0-4 % Basophils Percent Auto 2.0 0-2 % NRBC Pct Auto 0.0 0.0-0.2 /100WBC Neutrophils Absolute Auto 3.2 2.0-8.3 x10*3/u L Imm Gran Abs Auto 0.03 0.00-0.03 X10*3/uL Lymphocytes Absolute Auto 0.8 1.2-4.9 X10*3/u L Monocytes Absolute Auto 0.6 0.1-1.2 X10*3/uL Eosinophils Absolute Auto 0.3 0.0-0.4 X10*3/u L Basophils Absolute Auto 0.1 0.0-0.2 X10*3/uL NRBC Abs Auto 0.000 0.0-0.012 X10*3/uL Hemoglobin and Hematocrit Reviewed date:01/17/2025 05:36:47 AM Interpretation: Performing Lab:[address] [address] Notes/Report: Hemoglobin 11.9 14.0-18.0 g/dl Hematocrit 33.2 42.0-52.0 % Basic Metabolic Panel Reviewed date:01/15/2025 06:45:37 AM Interpretation: Performing Lab:[address] [address] Notes/Report: Sodium 135 135-145 mmol/L Potassium 3.8 3.3-5.1 mmol/L Chloride 101 96-108 mmol/L Carbon Dioxide 24 22-29 mmol/L Anion Gap 14 12-20 Blood Urea Nitrogen 12 9-16 mg/dL Creatinine 0.70 0.5-1.4 mg/dL Creatinine Clr Calc Pharmacy 76.6 eGFR (calculated from the MDRD study equation) and eCrCl (calculated from the Cockcroft-Gault equation) are based on different parameters and may not yield comparable results. If eCrCl result is absurd, please check patient's height/weight. Estimated Glomerular Filt Rate > 60 Chronic Kidney Disease: Estimated GFR < 60 mL/min/1.73m2 Severe Kidney Disease: Estimated GFR < 15 mL/min/1.73m2 Glucose Random 93 60-115 mg/dL Calcium 8.7 8.4-10.2 mg/dL Hold Lav - Possible Hematolo gy Reviewed date:01/17/2025 05:36:47 AM Interpretation: Performing Lab:[address] [address] Notes/Report: Hold Lav - Possible Hematology SEE NOTE Specimen will be held untested for 8 hours. Call Hematology if testing is desired. Creatinine Reviewed date:01/17/2025 05:36:47 AM Interpretation: Performing Lab:[address] [address] Notes/Report: Creatinine 0.77 0.5-1.4 mg/dL Creatinine Clr Calc Pharmacy 69.6 eGFR (calculated from the MDRD study equation) and eCrCl (calculated from the Cockcroft-Gault equation) are based on different parameters and may not yield comparable results. If eCrCl result is absurd, please check patient's height/weight. Estimated Glomerular Filt Rate > 60 Chronic Kidney Disease: Estimated GFR < 60 mL/min/1.73m2 Severe Kidney Disease: Estimated GFR < 15 mL/min/1.73m2 Complete Blood Count Auto Di ff Reviewed date:02/26/2025 07:54:27 AM Interpretation: Performing Lab:[address] [address] Notes/Report: White Blood Count 6.6 4.8-10.8 X10*3/uL Red Blood Count 4.04 4.60-5.80 X10*6/uL Hemoglobin 12.9 14.0-18.0 g/dl Hematocrit 36.8 42.0-52.0 % Mean Corpuscular Volume 91.1 80.0-98.0 fL Mean Corpuscular Hemoglobin 31.9 27.0-33.0 pg Mean Corpuscular HGB Conc 35.1 31.0-36.0 g/dl Red Cell Distribution Width 13.2 11.0-16.0 % Platelet Count 363 160-400 X10*3/uL Mean Platelet Volume 8.9 9.4-12.4 fL Neutrophils Percent Auto 61.8 45-73 % Imm Gran Pct Auto 0.8 0.0-0.4 % Lymphocytes Percent Auto 19.6 20-40 % Monocytes Percent Auto 12.9 2-11 % Eosinophils Percent Auto 3.5 0-4 % Basophils Percent Auto 1.4 0-2 % NRBC Pct Auto 0.0 0.0-0.2 /100WBC Neutrophils Absolute Auto 4.1 2.0-8.3 x10*3/u L Imm Gran Abs Auto 0.05 0.00-0.03 X10*3/uL Lymphocytes Absolute Auto 1.3 1.2-4.9 X10*3/u L Monocytes Absolute Auto 0.9 0.1-1.2 X10*3/uL Eosinophils Absolute Auto 0.2 0.0-0.4 X10*3/u L Basophils Absolute Auto 0.1 0.0-0.2 X10*3/uL NRBC Abs Auto 0.000 0.0-0.012 X10*3/uL Comprehensive Western. Panel Fa st Reviewed date:02/26/2025 07:54:27 AM Interpretation: Performing Lab:[facility], [address] [place] [phone] Notes/Report: Sodium 135 135-145 mmol/L Potassium 4.3 3.3-5.1 mmol/L Chloride 100 96-108 mmol/L Carbon Dioxide 29 22-29 mmol/L Anion Gap 10 12-20 Blood Urea Nitrogen 15 9-16 mg/dL Creatinine 0.85 0.5-1.4 mg/dL Estimated Glomerular Filt Rate > 60 Chronic Kidney Disease: Estimated GFR < 60 mL/min/1.73m2 Severe Kidney Disease: Estimated GFR < 15 mL/min/1.73m2 Glucose Fasting 89 60-99 mg/dL Calcium 10.1 8.4-10.2 mg/dL Bilirubin Total 0.6 0.0-1.0 mg/dL Aspartate Amino Transferase 21 5-37 U/L Alanine Aminotransferase 17 0-40 U/L Total Protein 7.7 6.5-8.0 g/dL Albumin Level 4.0 3.5-5.0 g/dL Alkaline Phosphatase 80 39-117 U/L Lipid Panel Reviewed date:02/26/2025 07:54:27 AM Interpretation: Performing Lab:[facility], [address] [place] [phone] Notes/Report: Triglycerides 58 <150 mg/dL Desirable Triglyceride: less than 150 mg/dL Borderline High Triglyceride 150-199 mg/dL High Triglyceride: 200-499 mg/dL Very High Triglyceride: greater than or equal to 5OO mg/dL Cholesterol 147 <200 mg/dL Desirable Cholesterol: less than 200 mg/dL Borderline High Cholesterol: 200-239 mg/dL High Cholesterol: greater than 239 mg/dL LDL Cholesterol Calculated 87 <100 mg/dL Desirable LDL: less than 100 mg/dL Near Optimal/Above Optimal LDL: 110-129 mg/dL Borderline High LDL: 130-159 mg/dL High LDL: 160-189 mg/dL Very High LDL: greater than or equal to 190 mg/dL HDL Cholesterol 49 >40 mg/dL Desirable HDL: greater than 40 mg/dL Note: This HDL assay may give artificially low results in patients with liver disease. XR chest 2V Reviewed date:02/26/2025 07:54:27 AM Interpretation: Performing Lab: Notes/Report: [address] [address] XRay Report Signed Patient: Freeman King MR#: [id number] [birth year] : 1940 Acct:[id number] Age/Sex: 85 / M ADM Date: 02/23/25 Loc: HO.KIRTIAY Attending Dr: Denilson Minor MD Ordering Physician: Denilson Minor MD Date of Service: 02/23/25 Procedure(s): XR chest 2V Accession Number(s): [id number] cc: Robbie Kothari MD; Denilson Minor MD EXAMINATION: XR CHEST CLINICAL INFORMATION: J41.0 - Simple chronic bronchitis COMPARISON: January 13, 2025. TECHNIQUE: 2 views of the chest were obtained. FINDINGS: Pulmonary reticular nodular pattern, bilaterally more pronounced on the right lung. Probable saccular bronchiectasis, upper lung lobes. No pleural effusion. No pneumothorax. Hyperinflated lungs. Cardiomediastinal silhouette size is small. Calcified plaque thoracic aortic arch. Mild multilevel thoracic spondylosis. XR/XR chest 2V IMPRESSION: Acute on chronic airspace disease involving mostly the right lung, worsened since prior examination. Underlying neoplasm cannot be excluded.. Electronically signed by: Lázaro Ely MD 02/23/2025 08:53 AM EDT RP Dictated By: Lázaro Elias MD Signed By: <Electronically signed by Lázaro Monique MD in OV> 02/23/25 0853 DD/ 6 TD/TT: 02/23/25835 Abattoir Supervisor: [place] [address] XRay Report Signed Patient: Jeremiah King MR#: [id number] [birth year] : 1940 Acct:[id number] Age/Sex: 85 / M ADM Date: 02/23/25 Loc: HO.XRAY Attending Dr: Denilson Minor MD Ordering Physician: Denilson Minor MD Date of Service: 02/23/25 Procedure(s): XR chest 2V Accession Number(s): [id number] cc: Robbie Kothari MD; Denilson Minor MD EXAMINATION: XR CHEST CLINICAL INFORMATION: J41.0 - Simple chron ic bronchitis COMPARISON: January 13, 2025. TECHNIQUE: 2 views of the chest were obtained. FINDINGS: Pulmonary reticular nodular pattern, bilaterally more pronounced on the right lung. Probable saccular bronchiectasis, upper lung lobes. No pleural effusion. No pneumothorax. Hyperinflated lungs. Cardiomediastinal silhouette size is small. Calcified plaque tho racic aortic arch. Mild multilevel thor acic spondylosis. X R/XR chest 2V IMPRESSION: Acute on chronic air space disease involving mostly the right lung, worsened since prior examination. Underlying neoplasm cannot be excluded.. Electronically gurpreet d by: Lázaro Ely MD 02/23/2025 08:53 AM EDT RP Dictated By: Lázaro Garcia MD Signed By: <Electronically signed by Lázaro Monique MD in OV> 02/23/25 0853 DD/ 6 TD/TT: 02/23/25 0836 Abattoir Supervisor: Reason For Referral Reason Urgent Referral Requ est Evaluate and Treat ? 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) Referral Organization Robbie Kothari III, MD Referring Provider First Name Robbie Referring Provider Last Name Kothari [facility] Referred Provider [facility], Speech and Hearing Referred Provider Specialty Unknown General Notes D 03/09/2025 02:27:01 PM > Referral and last progress not faxed Referral Priority Routine Medications Medication SIG (Take, Route, Frequency, Duration) Notes Start Date End Date Status predniSONE 20 MG 1 tablet with food o r milk Orally Once a day for 10 days 03/10/2025 05/09/2025 Active Hydrocortisone 1 % 1 application Externally Twice a day 01/27/2025 Active Albuterol Sulfate (2.5 MG/3ML) 0.083% Inhalation Active Nystatin 038715 UNIT/GM APPLY TOPICALLY 3 TIMES A DAY FOR 30 DAYS APPLY TO THE AFFECTED AREA THREE TIMES A DAY External Active Atorvastatin Calcium 10 MG 1 tablet Oral ly Once a day Active Azithromycin 500 MG Oral Active Tamsulosin HCl 0.4 MG Oral Active Immunizations Vaccine Route Administration Date Status [...] Additional Findings: Tobacco non-user Ex-cigaret te smoker AUDIT-C (Standard) Question Answer Notes Did you have a drink containing alcohol in the p ast year? 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 Problem Hyperlipidemia (75332335) Hyperlipidemia (E78.5) Active confirmed Distal cholesterol is stable but his triglycerides are elevated. He will continue on his current diet until he has fully recovered from the stroke. He will continue on his medications. Problem 65576984 Hyponatremia (E87.1) Active confirmed After admission to [facility] he required hypertonic saline and then 1 g of sodium chloride tablets 3 times a day to restore his potassium to normal. He was discharged without this. Blood work with a sodium level will be checked frequently. Problem 700064418 Underweight (R63.6) Active confirmed He has lost ove r 20 pounds since his last visit. His body mass index is 18. We discussed nutrition at length today. 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 A recent chest x-ray shows worsening airspace disease in right lung. He is due to see pulmonary within the next week. He has a cough which is nonproductive and is afebrile. n. Problem 15278437 Orthostatic hypotension (I95.1) Active confirmed He developed th is at home and was brought to the [facility] emergency of December 30, 2024 and admitted overnight for hydration. We have discussed aggressive hydration and adequate nutrition. Problem 168622120 Rosacea (L71.9) Active confirmed He was given metronidazole gel. He was instructed in its use. Problem 923846097 Pulmonary nodule (R91.1) Active confirmed This is being observed. No change in his symptoms have been noted. Problem 096397511 Adenoma of ascending colon (D12.2) Active confirmed He will call he r gastroenterologis t to see if additional colonoscopies will be recommended. Problem 570382065 Hypertrophy of prostate without urinary obstruction and other lower urinary tract symptoms (LUTS) (N40.0) Active confirmed He has been usi ng lifestyle modification and now experiences nocturia only once a night. Problem 43137014 Abdominal hernia without obstruction and without gangrene, recurrence not specified, unspecified hernia type (K46.9) Active confirmed The hernia is n ow asymptomatic and will be observed without treatment. Problem Pneumonia (111144467) Pneumonia (J18.9) Active confirmed He is taking th e azithromycin 3 times a week. The other antibiotic has been discontinued. The pneumonia has resolved. He is breathing comfortably. Problem Seizure (96987604) Seizures (R56.9) Active confirmed Just before discharge from an [facility] he was begun on Keppra for periods of unresponsiveness. A repeat CT scan November 18, 2024 showed improvement in the hemorrhage and edema. The Her will be discontinued until the electroencephalog jackie is done. We have requested a repeat visit from [facility] neurology. Problem Stroke (419457845) Stroke (I63.9) Active confirmed Problem 8355805535195 Benign prostatic hyperplasia with lower urinary tract symptoms (N40.1) Active confirmed He says he is rising from sleep up to 4 times a night. His tamsulosin waas stopped because of a low blood pressure. It curtis now resumed. He is happy with this level of control. We discussed further lifestyle modifications he can maake to reduce nocturia. Problem Disorder of musculoskeletal system (182493) Leg weakness, bilateral (R29.898) Active confirmed Problem 48431590 Sleep apnea in adult (G47.30) Active confirmed He is using t he new CPAP machine without difficulty and is pleased with the results. Problem 30265080 Generalized weakness (R53.1) Active confirmed He was making significant progress after the [...] urinary tract infection or acute metabolic problem. 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 Problem 91092223 Atrial arrhythmia (I49.8) Active confirmed He was in a normal sinus rhythm today with no abnormalities. He has had no episodes of tachycardia, syncope or palpitations. 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 Problem 757537554967554 Acute gout of left hand, unspecified cause (M10.9) Active confirmed This was a clinical diagnosis and he is being treated with prednisone. It occurred within the last 48 hours. The left wrist is painful red and swollen. Vital Signs Heart Rate 97 /min 02/24/2025 Temperature 97.5 degrees Fahrenheit 02/24/2025 Blood pressure diastolic 75 mm Hg 02/24/2025 Height 76 in 02/24/2025 Blood pressure systolic 117 mm Hg 02/24/2025 Weight 161 lbs 02/24/2025 BMI 19.6 kg/m2 02/24/2025 Encounters Encounter Location Date Provider Diagnosis Robbie Kothari III, MD [address] [place] [address] [place] [id number] 04/14/2024 Robbie Kothari Hyperlipidemia E78.5 ; Vertigo R42 ; Tinnitus, left H93.12 ; Former smoker Z87.891 ; Mycobacterial infection, unspecified A31.9 and Atrial arrhythmia I49.8 Robibe Kothari III, MD [address] [place] [address] [place] [id number] 04/15/2024 Robbie Kothari Hyperlipidemia E78.5 ; Labyrinthitis, unspecified laterality H83.09 ; Former smoker Z87.891 ; Rosacea L71.9 ; Mycobacterial infection, unspecified A31.9 and Right anterior knee pain M25.561 Robbie Kothari III, MD [address] [place] [address] [place] [phone] 04/22/2024 Robbie Kothari Hyperlipidemia E78.5 ; Benign prostatic hyperplasia with lower urinary tract symptoms N40.1 ; Former smoker Z87.891 ; Mycobacterial infection, unspecified A31.9 ; Sleep apnea in adult G47.30 and Labyrinthitis, unspecified laterality H83.09 Robbie Kothari III, MD [address] [place] [address] [place] [address] 06/02/2024 Robbie Kothari Encounter for immunization Z23 Robbie Kothari III, MD [address] [place] [address] [place] [address] 07/25/2024 Robbie Kothari Hyperlipidemia E78.5 ; Mycobacterial infection, unspecified A31.9 ; Benign prostatic hyperplasia with lower urinary tract symptoms N40.1 ; Former smoker Z87.891 ; 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 and Sleep apnea in adult G47.30 Robbie Kothari III, MD [address] [place] [address] [place] [address] 11/21/2024 Robbie Kothari Hyperlipidemia E78.5 ; Nontraumatic [...] adult G47.30 Robbie Kothari III, MD [address] [place] [address] [place] [address] 12/02/2024 Robbie Kothari Hyperlipidemia E78.5 ; 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 ; Pneumonia J18.9 ; Former smoker Z87.891 ; Mycobacterial infection, unspecified A31.9 ; Sleep apnea in adult G47.30 and Benign prostatic hyperplasia with lower urinary tract symptoms N40.1 Robbie Kothari III, MD [address] [place] [address] [place] [address] 12/19/2024 Robbie Kothari Hyperlipidemia E78.5 ; 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 ; Pneumonia J18.9 ; Underweight R63.6 ; Seizures R56.9 ; Former smoker Z87.891 ; Mycobacterial infection, unspecified A31.9 ; Sleep apnea in adult G47.30 and Benign prostatic hyperplasia with lower urinary tract symptoms N40.1 Robbie Kothari III, MD [address] [place] [address] [place] [address] 01/04/2025 Robbie Kothari Orthostatic hypotens ion I95.1 ; Former smoker Z87.891 ; Atrial arrhythmia I49.8 ; Hyperlipidemia E78.5 ; Rosacea L71.9 ; Benign prostatic hyperplasia with lower urinary tract symptoms N40.1 ; 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 ; Underweight R63.6 and Pneumonia J18.9 Robbie Kothari III, MD [address] [place] [address] [place] [address] 01/13/2025 Robbie Kothari Generalized weakness R53.1 ; Hyperlipidemia E78.5 ; Former smoker Z87.891 ; Hypertrophy of prostate without urinary obstruction and other lower urinary tract symptoms (LUTS) N40.0 ; Mycobacterial infection, unspecified A31.9 ; Underweight R63.6 ; 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 ; Orthostatic hypotension I95.1 and Pneumonia J18.9 Robbie Kothari III, MD [address] [place] [address] [place] [address] 01/27/2025 Robbie Kothari Former smoker Z87.89 1 ; Mycobacterial infection, unspecified A31.9 ; Hyperlipidemia E78.5 ; Benign prostatic hyperplasia with lower urinary tract symptoms N40.1 ; 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 ; Seizures R56.9 ; Hyponatremia E87.1 ; Pneumonia J18.9 ; Hypertrophy of prostate without urinary obstruction and other lower urinary tract symptoms (LUTS) N40.0 and Generalized weakness R53.1 Robbie Kothari III, MD [address] [place] [address] [place] [address] 02/24/2025 Robbie Kothari Mycobacterial infect ion, unspecified A31.9 ; 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 ; Benign prostatic hyperplasia with lower urinary tract symptoms N40.1 ; Seizures R56.9 ; Hyponatremia E87.1 ; Former smoker Z87.891 ; Generalized weakness R53.1 and Acute gout of left hand, unspecified cause M10.9 Robbie Kothari III, MD [address] [place] [address] [place] [address] 03/09/2025 Robbie Kothari III, MD [address] [place] [address] [place] [address] 10/28/2024 Robbie Kothari III, MD [address] [place] [address] [place] [address] 11/21/2024 Robbie Kothari III, MD [address] [place] [address] [place] [address] 11/21/2024 Robbie Kothari III, MD [address] [place] [address] [place] [address] 11/22/2024 Robbie Kothari III, MD [address] [place] [address] [place] [address] 11/22/2024 Robbie Kothari III, MD [address] [place] [address] [place] [address] 11/25/2024 Robbie Kothari III, MD [address] [place] [address] 11/25/2024 Robbie Kothari III, MD [address] [facility] [place] [address] 12/05/2024 Robbie Kothari III, MD [address] [facility] [place] [address] 12/14/2024 Robbie Kothari III, MD [address] [facility] [place] [address] 12/20/2024 Robbie Kothari III, MD [address] [facility] [place] [address] 01/02/2025 Robbie Kothari III, MD [address] [place] [address] [place] [address] 01/03/2025 Robbie Kothari III, MD [address] [facility] [place] [address] 01/06/2025 Rbobie Kothari III, MD [address] [facility] [place] [address] 01/13/2025 Robbie Kothari III, MD [address] [facility] [place] [address] 01/17/2025 Robbie Kothari III, MD [address] [place] [address] [place] [address] 01/17/2025 Robbie Kothari III, MD [address] [facility] [place] [address] 02/07/2025 Robbie Kothari III, MD [address] [facility] [place] [address] 02/10/2025 Robbie Kothari III, MD [address] [facility] [place] [address] 02/24/2025 Robbie Kothari III, MD [address] [place] [address] [place] [address] 02/27/2025 Robbie Kothari III, MD [address] [facility] [place] [address] 03/03/2025 Robbie Kothari III, MD [address] [place] [address] [address], [place] [address] 03/10/2025 Robbie Kothari Assessments Encounter Date Diagnosis (ICD Code) Assessment Notes Treatment Notes Treatment Clinical Notes 04/14/2024 Hyperlipidemia (ICD-10 - E78.5) His lipids [...] at home and was brought to the [facility] emergency of December 30, 2024 and admitted overnight for hydration. We have discussed aggressive hydration and adequate nutrition. 01/13/2025 Generalized weakness (ICD-10 - R53.1) He was [...] urinary tract infection or acute metabolic problem. 01/27/2025 Former smoker (ICD-10 - Z87.891) He has a strategy to prevent relapse in times of stress and illness. 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 He has been told by pulmonary that his infection is making progress. The CT scan of November 29 show stability in the 1.3 cm right upper lobe cavitary leesion. 02/24/2025 Mycobacterial infection, unspecified (ICD-10 - A31.9) [...] be seen once a week at least. 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 A repeat CT scan November 18, 2024 showed improvement in the hemorrhage and edema. The Her will be discontinued until the electroencephalogram is done. We have requested a repeat visit from [facility] neurology. 12/02/2024 Pneumonia (ICD-10 - J18.9) He [...] no episodes of tachycardia, syncope or palpitations. 01/13/2025 Former smoker (ICD-10 - Z87.891) He has a strategy to prevent relapse in times of stress and illness. 01/13/2025 Hyperlipidemia (ICD-10 - E78.5) 01/27/2025 Hyperlipidemia (ICD-10 - E78.5) Distal cholesterol is stable but his triglycerides are elevated. He will continue on his current diet until he has fully recovered from the stroke. He will continue on his medications. 02/24/2025 Benign prostatic hyperplasia with lower urinary tract symptoms (ICD-10 - N40.1) He says he is rising from sleep up to 4 times a night. His tamsulosin waas stopped because of a low blood pressure. It curtis now resumed. He is happy with this level of control. We discussed further lifestyle modifications he can maake to reduce nocturia. 04/14/2024 Former smoker (ICD-10 - Z87.891) He [...] Hyponatremia (ICD-10 - E87.1) After admission to [facility] he required hypertonic saline and then [...] stroke. He will continue on his medications. 01/13/2025 Hypertrophy of prostate without urinary obstruction and other lower urinary tract symptoms (LUTS) (ICD-10 - N40.0) He has been using lifestyle modification and now experiences nocturia only once a night. 01/27/2025 Benign prostatic hyperplasia with lower urinary tract [...] have requested a repeat visit from [facility] neurology. 04/14/2024 Mycobacterial infection, unspecified (ICD-10 - A31.9) [...] have requested a repeat visit from [facility] neurology. 01/04/2025 Rosacea (ICD-10 - L71.9) He was given metronidazole gel. He was instructed in its use. 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 He has been told by pulmonary that his infection is making progress. The CT scan of November 29 show stability in the 1.3 cm right upper lobe cavitary leesion. 01/27/2025 Nontraumatic hemorrhage of left cerebral hemisphere (ICD-10 [...] seen once a week at least. 02/24/2025 Hyponatremia (ICD-10 - E87.1) After admission to [facility] he required hypertonic saline and then 1 g of sodium chloride tablets 3 times a day to restore his potassium to normal. He was discharged without this. Blood work with a sodium level will be checked frequently. 04/14/2024 Atrial arrhythmia (ICD-10 - I49.8) He [...] modifications he can maake to reduce nocturia. 01/13/2025 Underweight (ICD-10 - R63.6) He has lost over 20 pounds since his last visit. His body mass index is 18. We discussed nutrition at length today. 01/27/2025 Seizures (ICD-10 - R56.9) Just before discharge from an [facility] rehabilitation he was begun on Keppra for periods of unresponsiveness. A repeat CT scan November 18, 2024 showed improvement in the hemorrhage and edema. The Her will be discontinued until the electroencephalogram is done. We have requested a repeat visit from [facility] neurology. 02/24/2025 Former smoker (ICD-10 - Z87.891) He has a strategy to prevent relapse in times of stress and illness. 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 01/13/2025 Nontraumatic hemorrhage of left cerebral hemisphere (ICD-10 [...] be seen once a week at least. 01/27/2025 Hyponatremia (ICD-10 - E87.1) After admission to [facility] he required hypertonic saline and then 1 g of sodium chloride tablets 3 times a day to restore his potassium to normal. He was discharged without this. Blood work with a sodium level will be checked frequently. 02/24/2025 Generalized weakness (ICD-10 - R53.1) He [...] urinary tract infection or acute metabolic problem. 11/21/2024 Rosacea (ICD-10 - L71.9) He was [...] 18. We discussed nutrition at length today. 01/13/2025 Orthostatic hypotension (ICD-10 - I95.1) He developed this at home and was brought to the [facility] emergency of December 30, 2024 and admitted overnight for hydration. We have discussed aggressive hydration and adequate nutrition. 01/27/2025 Pneumonia (ICD-10 - J18.9) He is taking the azithromycin 3 times a week. The other antibiotic has been discontinued. The pneumonia has resolved. He is breathing comfortably. 02/24/2025 Acute gout of left hand, unspecified cause (ICD-10 - M10.9) This was a clinical diagnosis and he is being treated with prednisone. It occurred within the last 48 hours. The left wrist is painful red and swollen. 11/21/2024 Atrial arrhythmia (ICD-10 - I49.8) He [...] pneumonia has resolved. He is breathing comfortably. 01/13/2025 Pneumonia (ICD-10 - J18.9) He is taking the azithromycin 3 times a week. The other antibiotic has been discontinued. The pneumonia has resolved. He is breathing comfortably. 01/27/2025 Hypertrophy of prostate without urinary obstruction and other lower urinary tract symptoms (LUTS) (ICD-10 - N40.0) He has been using lifestyle modification and now experiences nocturia only once a night. 11/21/2024 Benign prostatic hyperplasia with lower urinary tract symptoms (ICD-10 - N40.1) He rises from sleep once a night to urinate. He is happy with this level of control. We discussed further lifestyle modifications he can maake to reduce nocturia. 01/27/2025 Generalized weakness (ICD-10 - R53.1) He was [...] urinary tract infection or acute metabolic problem. 11/21/2024 Mycobacterial infection, unspecified (ICD-10 - A31.9) [...] Order Date PROFILE, FASTING (COMPREHENSIVE METABOLI C) 04/22/2024 PROFILE, FASTING (COMPREHENSIVE METABOLI C) 12/05/2020 PROFILE, FASTING (COMPREHENSIVE METABOLI C) 12/10/2022 PROFILE, FASTING (COMPREHENSIVE METABOLI C) 06/06/2021 PROFILE, FASTING (COMPREHENSIVE METABOLI C) 09/10/2022 PROFILE, FASTING (COMPREHENSIVE METABOLI C) 07/22/2023 PROFILE, FASTING (COMPREHENSIVE METABOLI C) 09/18/2020 PROFILE, FASTING (COMPREHENSIVE METABOLI C) 05/01/2020 PROFILE, FASTING (COMPREHENSIVE METABOLI C) 03/06/2021 PROFILE, FASTING (COMPREHENSIVE METABOLI C) 03/18/2023 PROFILE, FASTING (COMPREHENSIVE METABOLI C) 07/25/2024 PROFILE, FASTING (COMPREHENSIVE METABOLI C) 01/27/2025 PROFILE, FASTING (COMPREHENSIVE METABOLI C) 10/08/2021 PROFILE, RANDOM (COMPREHENSIVE METABOLIC ) 01/06/2022 LIPID PANEL 12/05/2020 LIPID PANEL 12/10/2022 LIPID PANEL 06/06/2021 LIPID PANEL 09/10/2022 LIPID PANEL 09/18/2020 LIPID PANEL 01/06/2022 LIPID PANEL 05/01/2020 LIPID PANEL 03/18/2023 PSA, TOTAL 03/18/2023 PSA, TOTAL 04/22/2024 PSA, TOTAL 03/06/2021 PSA, TOTAL 09/10/2022 PSA, TOTAL 09/18/2020 PSA, TOTAL 01/06/2022 PSA, TOTAL 05/01/2020 PSA, TOTAL 07/25/2024 CBC w DIFF 09/18/2020 CBC w DIFF 01/06/2022 CBC w DIFF 01/27/2025 CBC w DIFF 05/01/2020 CBC w DIFF 10/08/2021 CBC w DIFF 03/18/2023 CBC w DIFF 12/05/2020 CBC w DIFF 12/10/2022 CBC w DIFF 06/06/2021 CBC w DIFF 03/06/2021 CBC w DIFF 09/10/2022 XR CHEST 2 VIEW PA & LAT 09/24/2020 XR CHEST 2 VIEW PA & LAT 05/03/2019 XR CHEST 2 VIEW PA & LAT 12/02/2024 US LEG LT VENOUS DOPPLER 09/24/2020 Echocardiogram 10/01/2020 Holter Monitor 10/01/2020 Sleep Study - Diagnostic 01/06/2022 EEG 11/21/2024 CBC WITH AUTO DIFF 07/25/2024 CBC WITH AUTO DIFF 04/22/2024 CBC WITH AUTO DIFF 07/22/2023 Lipid Panel 03/06/2021 Lipid Panel 01/27/2025 Lipid Panel 10/08/2021 Lipid Panel 07/25/2024 Lipid Panel 04/22/2024 Lipid Panel 07/22/2023 Next Appt Details Provider Name:Robbie Kothari, 03/20/2025 10:45:00 AM, [address] [facility] [place], [place], [address], Provider Name:Robbie Kothari, 01/29/2026 09:30:00 AM, [address] [facility] [place], [place], [address], Insurance Providers Payer Name Payer Address Payer Phone Subscriber Number Group Number Insured Name Patient Relationship to Insured Coverage Start Date Coverage End Date [employer]age [address] [address] [place] [address] [id number] Freeman King Self - patient is the insured MEDICARE NGS [address] [place] [phone] [id number] Freeman King Self - patient is the insured Medical (General) History Medical History History ICD Code colonic poyps 2002 benign prostatic hyperplasia (BPH) hyperlipidemia left herniorraphy age 30 neck and right shoulder pain 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
--- OUTSIDE RECORDS SUMMARY | 2025-03-13 14:55 | XMS_ITS | Clinical Summary ---
Author Organization [facility] Address [address] [place] [address] [place] [address] Phone Care Team Providers Care Sorting Machine Operator Name Role Phone Unavailable Primary Care Provider [...] Visit [facility] [address] [place] [address] Anurag John [...] patient's age to complete this topic Insurance [facility] Medicare
--- OUTSIDE RECORDS SUMMARY | 2025-03-13 14:56 | XMS_ITS | Encounter Summary ---
Author Organization [facility] Address [address] [place] [address] Care Team Providers Care Corn Cutter Name Role Phone Gloria Preston MD Primary Care Provider Encounter Details Date Type Department Care Team (Late st Contact Info) Description 11/05/2024 Lab Requisition [facility] - Main Lab [address] [facility] [place] [address] Gloria Preston MD [address] [place] [phone] Encounter for other general examination Social History [...] CBC auto differential (11/05/2024 5:51 AM EST) [facility] WBC 8.0 4.8 - 10.8 K/mcL LAB HEMETOLOGY METHOD 11/05/2024 11:21 AM [facility] RBC 4.20(L) 4.50 - 5.50 M/mcL LAB HEMETOLOGY METHOD 11/05/2024 11:21 AM [facility] Hemoglobin 13.8 13.5 - 17.5 g/dL LAB HEMETOLOGY METHOD 11/05/2024 11:21 AM [facility] Hematocrit 39.6(L) 42.0 - 54.0 % LAB HEMETOLOGY METHOD 11/05/2024 11:21 AM [facility] MCV 94.7 79.0 - 98.0 FL LAB HEMETOLOGY METHOD 11/05/2024 11:21 AM [facility] MCH 33.0(H) 27.0 - 32.0 pcg LAB HEMETOLOGY METHOD 11/05/2024 11:21 AM [facility] MCHC 34.8 32.0 - 37.0 g/dL LAB HEMETOLOGY METHOD 11/05/2024 11:21 AM [facility] RDW 12.7 11.0 - 15.0 % LAB HEMETOLOGY METHOD 11/05/2024 11:21 AM [facility] Platelets 261 130 - 400 K/mcL LAB HEMETOLOGY METHOD 11/05/2024 11:21 AM [facility] MPV 10.4 7.0 - 11.0 FL LAB HEMETOLOGY METHOD 11/05/2024 11:21 AM [facility] NRBC 0.0 <1.0 % LAB HEMETOLOGY METHOD 11/05/2024 11:21 AM [facility] NRBC Absolute 0.00 <0.10 K/mcL LAB HEMETOLOGY METHOD 11/05/2024 11:21 AM [facility] Neutrophils Relative 73.3 % LAB HEMETOLOGY METHOD 11/05/2024 11:21 AM [facility] Lymphocytes Relative 10.6 % LAB HEMETOLOGY METHOD 11/05/2024 11:21 AM [facility] Monocytes Relative 14.7 % LAB HEMETOLOGY METHOD 11/05/2024 11:21 AM [facility] Eosinophils Relative 0.4 % LAB HEMETOLOGY METHOD 11/05/2024 11:21 AM [facility] Basophils Relative 0.6 % LAB HEMETOLOGY METHOD 11/05/2024 11:21 AM [facility] Immature Granulocytes Relative 0.4 % LAB HEMETOLOGY METHOD 11/05/2024 11:21 AM [facility] Neutrophils Absolute 5.87 1.50 - 7.00 K/mcL LAB HEMETOLOGY METHOD 11/05/2024 11:21 AM [facility] Lymphocytes Absolute 0.85(L) 1.00 - 5.00 K/mcL LAB HEMETOLOGY METHOD 11/05/2024 11:21 AM [facility] Monocytes Absolute 1.18(H) 0.20 - 1.00 K/mcL LAB HEMETOLOGY METHOD 11/05/2024 11:21 AM [facility] Eosinophils Absolute 0.03 0.00 - 0.50 K/mcL LAB HEMETOLOGY METHOD 11/05/2024 11:21 AM [facility] Basophils Absolute 0.05 0.00 - 0.20 K/mcL LAB HEMETOLOGY METHOD 11/05/2024 11:21 AM [facility] Immature Granulocytes Absolute 0.03 0.00 - 0.03 K/mcL LAB HEMETOLOGY METHOD 11/05/2024 11:21 AM [facility] Blood Venous blood specimen / Unknown Venipuncture / Unknown 11/05/2024 5:51 AM EST 11/05/2024 9:43 AM EST us Gloria Preston MD LAB BLOOD ORDERABLES Final Resu lt [facility] [address] [place] [address], [place] [phone] * Magnesium (11/05/2024 5:51 AM EST) [facility] Magnesium 2.0 1.9 - 2.6 mg/dL LAB CHEMISTRY METHOD 11/05/2024 11:42 AM EST [facility] Blood Venous blood specimen / Unknown Venipuncture / Unknown 11/05/2024 5:51 AM EST 11/05/2024 9:43 AM EST us Gloria Preston MD LAB BLOOD ORDERABLES Final Resu lt Performing Organization Address City/[facility]/ZIP Co de Phone Number [facility] [address] [place] [address], [place] [phone] * (ABNORMAL) Comprehensive metabolic panel (11/05/2024 5:51 AM EST) [facility] Sodium 133 133 - 145 mmol/L LAB CHEMISTRY METHOD 11/05/2024 11:44 AM [facility] Potassium 4.1 3.5 - 5.5 mmol/L LAB CHEMISTRY METHOD 11/05/2024 11:44 AM [facility] Chloride 99 96 - 110 mmol/L LAB CHEMISTRY METHOD 11/05/2024 11:44 AM [facility] CO2 24 21 - 32 mmol/L LAB CHEMISTRY METHOD 11/05/2024 11:44 AM [facility] Anion Gap 10 3 - 11 LAB CHEMISTRY METHOD 11/05/2024 11:44 AM [facility] Glucose 92 70 - 100 mg/dL LAB CHEMISTRY METHOD 11/05/2024 11:44 AM [facility] BUN 18 5 - 25 mg/dL LAB CHEMISTRY METHOD 11/05/2024 11:44 AM [facility] Creatinine 0.54(L) 0.70 - 1.30 mg/dL LAB CHEMISTRY METHOD 11/05/2024 11:44 AM [facility] eGFR 98 >=60 mL/min/1. 73m2 LAB CHEMISTRY METHOD 11/05/2024 11:44 AM [facility] Comment:Calculation based on the Chronic Kidney Disease Epidemiology Collaboration (CKD-EPI) equation refit without adjustment for race. BUN/Creatinine Ratio 33.3 LAB CHEMISTRY METHOD 11/05/2024 11:44 AM [facility] Calcium 9.0 8.5 - 10.5 mg/dL LAB CHEMISTRY METHOD 11/05/2024 11:44 AM [facility] AST (SGOT) 17 10 - 42 unit/L LAB CHEMISTRY METHOD 11/05/2024 11:44 AM [facility] ALT (SGPT) 19 10 - 60 unit/L LAB CHEMISTRY METHOD 11/05/2024 11:44 AM [facility] Alkaline Phosphatase 83 42 - 121 unit/L LAB CHEMISTRY METHOD 11/05/2024 11:44 AM [facility] Total Protein 6.6 6.0 - 8.0 g/dL LAB CHEMISTRY METHOD 11/05/2024 11:44 AM [facility] Albumin 2.8(L) 3.2 - 5.0 g/dL LAB CHEMISTRY METHOD 11/05/2024 11:44 AM [facility] Total Bilirubin 1.1 0.0 - 1.4 mg/dL LAB CHEMISTRY METHOD 11/05/2024 11:44 AM [facility] Blood Venous blood specimen / Unknown Venipuncture / Unknown 11/05/2024 5:51 AM EST 11/05/2024 9:43 AM EST us Rami A Ashkar MD LAB BLOOD ORDERABLES Final Resu lt [facility] [address] [place] [address], documented in this encounter Visit Diagnoses Diagnosis Encounter for other general examination documented in this encounter Care Teams Corn Cutter Relationship Specialty Start Date End Date Gloria Preston MD [address] [place] [id number] PCP - General Hospitalist Medicine 11/05/24 documented as of this encounter
--- OUTSIDE RECORDS SUMMARY | 2025-03-13 14:56 | XMS_ITS | Patient Health Record ---
Author Organization [facility] Address [address] [place] [address] Care Team Providers Care Vp Foundation Name Role Phone Robbie Kothari MD Primary Care Provider UnavailRobbie Koo Unavailable [phone] Reason For Referral No Information Medications Medication SIG (Take, Route, Frequency, Duration) Notes Start Date End Date Status Co Q 10 Active Lipitor 10 MG 1 tablet Orally Once a day Active Social History Tobacco Use: Social History Observation Description Date Details (start date - stop date) Former Smoker NA - NA Tobacco Use/Smoking Question Answer Notes Patient is a former smoker How long has it been since you last smoked? > 10 years Alcohol Screen Question Answer Notes Did you have a drink contain ing alcohol in the past year? Yes How often did you have a dri nk containing alcohol in the past year? 2 to 3 times a week (3 points) How many drinks did you have on a typical day when you were drinking in the past year? 3 or 4 drinks (1 point) How often did you have 6 or more drinks on one occasion in the past year? Never (0 point) Points 4 Interpretation Positive Section Notes: Nonsmoker; nio sig alcohol Problems Problem Type SNOMED Code ICD Code Onset Dates Problem Status W/U Status Risk Notes Problem 929929223 Encounter for screening for malignant neoplasm of colon (Z12.11) Active confirmed Problem 838145900 Hx of adenomatous colonic polyps (Z86.010) Active confirmed Problem 526770345495646 Pre-procedural examination (Z01.818) Active confirmed Plan Of Treatment Future Test Test Name Order Date COLONOSCOPY 06/15/2018 Insurance Providers Payer Name Payer Address Payer Phone Subscriber Number Group Number Insured Name Patient Relationship to Insured Coverage Start Date Coverage End Date MEDICARE OF [place] [address] [place] [address] [phone] [id number] VAZQUEZ ROCHA Self - patient is the insured [facility] Insurance C/O [facility] [address] [place] [address] [id number] VAZQUEZ ROCHA Self - patient is the insured Medical (General) History Medical History History ICD Code Denies [place],DM,CVA,Lung disease,renal dise ase Hyperlipidemia Colonoscopy 2002-small tubul ar adenoma removed; colonoscopy in 2008 was negative--just diverticulosis and internal hemorrhoids Surgical History Surgery Date(Month/Year) Left inguinal hernia Skin cancers with skin grafts
--- OUTSIDE RECORDS SUMMARY | 2025-03-13 14:56 | XMS_ITS | Patient Health Record ---
Author Organization [facility] jarett Manson Address [address] [place] [address] Care Team Providers Care Car Icer Name Role Phone Robbie Kothari MD Primary Care Provider UnavailAna Damon Unavailable [phone] Allergies Allergen (clinical drug ingredient) Drug/Non Drug Allergy documented on EMR Reaction Allergy Type Onset Date Status Latex Latex Unknown Allergy Active Reason For Referral No Information Medications Medication SIG (Take, Route, Frequency, Duration) Notes Start Date End Date Status Lipitor 10 MG 1 tablet Orally Once a day; Duration: 30 day(s) 03/29/2024 Active Atorvastatin Calcium 10 MG TAKE 1 TABLET BY MOUTH EVERY DAY Oral; Duration: 90 Days Active Azithromycin 500 MG TAKE 1 TABLET BY RAMIN TH 3 TIMES A WEEK ON THURSDAY,THURSDAY AND FRIDAYS Oral; Duration: 90 Days Active Social History Tobacco Use: [...] 12/27/2024 Encounters Encounter Location Date Provider Diagnosis [facility] [address] [place] [address] 03/29/2024 Ana Hernandez Tinea unguium B35.1 ; Pain in right toe(s) M79.674 and Pain in left toe(s) M79.[address] [address] 06/28/2024 Ana Perica Tinea unguium B35.1 ; Pain in right toe(s) M79.674 and Pain in left toe(s) M79.[address] [address] 09/27/2024 Ana Perica Tinea unguium B35.1 ; Pain in right toe(s) M79.674 and Pain in left toe(s) M79.[address] [address] 12/27/2024 Ana Perica Tinea unguium B35.1 ; [...] Provider Name:Ana garduno, 03/28/2025 11:15:00 AM, [address] [place], [address], Insurance Providers Payer Name Payer Address Payer Phone Subscriber Number Group Number Insured Name Patient Relationship to Insured Coverage Start Date Coverage End Date [facility] Medicare-[id number] [address] [place] [address] [id number] Freeman King Self - patient is the insured Medical (General) History Medical History History ICD Code Measles Mumps Chicken pox Stroke Surgical History Surgery Date(Month/Year) hernia colonoscopy Hospitalization History Reason Date(Month/Year) [facility]- Stroke 10/2024
== END 2025-03-13 14:26 | disposition home or self-care (01) ==
LOC: HO.LNP 14:25
PROVIDERS: Visit Provider Hospitalist
DX: Z13.89 Encounter for screening for other disorder (principal)

== ENCOUNTER 2025-03-15 12:48 | Outpatient (RCR) | payer MEDICARE, SELFPAY ==
--- NOTE | 2025-04-11 16:02 | MHC.SP.ADU ---
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 King is an 85 year old male referred for a cognitive linguistic evaluation by Dr. Kothari. Mr. King was accompanied to this evaluation by his , who assisted in providing background information. Mr. 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 He was seen in the ED at [facility] on 10/27/24, presenting with confusion, headache, nausea and vomiting since the day prior after patient came inside from shoveling/ice picking. Family also reported patient was having some confusion and word-finding difficulty which persisted through the next day. Patient?s Head CT in the ED revealed, ? Acute left temporal intraparenchymal hematoma measuring 7.2 x 3.6 x 3.0 cm (AP, TRV, CC)? and ?Small amounts of subarachnoid hemorrhage in the left temporal region, and tiny amount of hemorrhage within the ventricular system. No acute hydrocephalus.? Patient was transferred to the ICU at [facility] for further management. Notes from Dr. Kothari indicate a CT scan of the brain was done on 11/18/24 showing improved edema and hemorrhage. Patient was recently admitted to [facility] with pneumonia in January and was seen by the speech pathologist during that admission for concerns of possible aspiration. His bedside swallow evaluation was however quite unremarkable and patient had denied having trouble swallowing at the time. He was noted to have dentures and mild right sided oral lingual weakness. He was recommended to resume unmodified diet of regular solids and thin liquids. He was also seen by Dr. Minor last month to follow-up after the hospital admission for pneumonia. Per Dr. Minor, Mr. King was given antibiotics and chlorhexidine mouthwash. He will continue to follow with Dr. Minor and is to have a repeat x-ray before his next pulmonary visit. Patient received rehabilitative services at [facility] after he was discharged from [facility]. Mr. King and his report he was seen by OT and PT, and he is ?just now being able to get indoors without his walker.? He will start outpatient physical therapy here at [facility] on 03/28. Mr. King was also seen by the speech pathologist while in rehab, with main concerns surrounding memory and swallowing. Mr. King and his report ongoing concerns related to the following: difficulty expressing thoughts, being understood by others, orientation/memory, problem solving, focusing/attention, finding words, fluent speech, and following directions. Mr. King had his last hearing test approximately 12 years ago. His notes she often repeats herself or needs to gain Mr. King?s attention before speaking to him. Patient was an avid reader previously and enjoyed literature. He now has difficulty writing or reading. He has tried audio books, but when he returns to a book he has a hard time remembering the story. Patient completed some college and was previously employed by the [employer]. 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 Mr. King has two adult children. Medical History: Other: Medical History Bronchiectasis COPD (chronic obstructive pulmonary disease) Mycobacterial disease Hernia HLD (hyperlipidemia) BPH (benign prostatic hyperplasia) Bronchiectasis Hemoptysis Pulmonary nodules Cough Abnormal chest x-ray Surgical History Hx of colonoscopy Tests of Cognition: RBANS Clinical Impression: Impaired Observations: Patient?s cognitive linguistic skills were evaluated using the RBANS: The Repeatable Battery for the Assessment of Neuropsychological Status (RBANS-Updated Form A). The RBANS assesses aspects of cognitive memory, language, and attention skills. The RBANS is considered a screening battery for cognitive function used with adolescents and adults, ages 12 to 89 years. Composite domains assessed in this evaluation are: Immediate Memory, Visuospatial/Constructional, Language, Attention, and Delayed Memory. Assessed domains and their scores are summarized below: IMMEDIATE MEMORY: These subtests assess an individual?s ability to remember a small amount of information immediately after it is presented. Patient was presented with a list of 10 spoken words and was instructed to repeat back as many words as he could remember from the list (List Learning). On initial trial, patient did not recall any of the items from the list of 10, though he did state ?cladder,? potentially an attempt to produce ?carpet,? which was indeed on the list. After 3 repetitions, he recalled 1-2 items on the list on each trial, but continued to produce non-words or phonemic paraphasias, for example, producing ?plastic? in place of ?package,? ?title? and ?mackle? in place of ?saddle.? After listening to a spoken paragraph, patient was instructed to re-tell the story with as much detail as he could remember (Story memory). He exhibited difficulty recalling information from a narrative, and recalled 1-3 specific details from the story, even with repetition. List Learning Total Score: 4 Scaled Score: 1 Percentile Rank: 0.1 Interpretation: Extremely Low Story Memory Total Score: 4 Scaled Score: 3 Percentile Rank: 1 Interpretation: Extremely Low Immediate Memory Index score: 49 Percentile Rank: <0.1 Interpretation: Extremely Low VISUOSPATIAL/CONSTRUCTIONAL: These subtests assess an individual?s visuospatial skills and perception of spatial relationships. Patient was first instructed to draw an accurate copy of a figure presented to him (Figure Copy). He included most components in his copy with accurate placement. His drawing lacked just 3 details from the original copy and no significant difficulty was noted with completion of this task nor was assistance provided. Next, patient was instructed to identify lines that matched based on orientation and placement. Patient exhibited difficulty with this task, finding both lines in 2 of 10 trials and one line in 3 of 10 trials. He was, however, able to identify the other line, when RAILWAYS ASSISTANT gave him a ?starting point? by identifying the first line for him. Nevertheless, visuo-spatial skills are a relative strength for him. Figure Copy Total Score: 17 Scaled Score: 10 Percentile Rank: 50 Interpretation: Average Line Orientation Total Score: 7 Percentile Group: <2 Interpretation: Extremely Low Visuospatial/Constructional Index score: 78 Percentile Rank: 7 Interpretation: Borderline LANGUAGE: These subtests assess an individual?s word retrieval skills. Patient correctly named line images in 1 out of 10 trials during a confrontational naming task (Picture Naming). Patient often produced semantic paraphasias, labeling images with other related words. For example, he labeled ?chair? as ?seat,? ?hannah? as ?gun,? ?pliers? as ?metal,? and ?kite? as ?yelitza.? Patient did describe items as they were presented to him. For example, he described giraffe as ?That?s an animal? and ?A big animal from?not the farm?not the circus?.? He also attempted to self-cue by using gestures to demonstrate his understanding of the item (i.e. made pinching motion with his hands when presented with a ?clothespin?). Encouragingly, patient correctly answered yes/no questions about each item (i.e. ?Is that a zebra?? ?Is that a rhino?? ?Is that a giraffe??) and named some items when provided with a sentence completion cue (i.e. ?I like to fly a?? for ?kite?). He was also instructed to name as many fruits and vegetables as he can in 60 seconds (Semantic Fluency) and named 4 relevant items in this category. Word retrieval was identified as an area of weakness and a treatment target. Picture Naming Total Score: 1 Percentile Group: <2 Interpretation: Extremely Low Semantic Fluency Total Score: 4 Scaled Score: 1 Percentile Rank: 0.1 Interpretation: Extremely Low Language Index score: 40 Percentile Rank: <0.1 Interpretation: Extremely Low ATTENTION: These subtests assess an individual?s capacity to remember and manipulate both visually and orally presented information in short-term memory storage. Patient was first instructed to repeat back number series that were between 2-9 digits long (Digit Span). He recalled digit series made up of up to 6 digits. Patient was also instructed to code markings with numbers (Coding). He coded 11 markers, making 4 errors. Attention is another area of relative strength for the patient. Digit Span Total Score: 9 Scaled Score: 10 Percentile Rank: 50 Interpretation: Average Coding Total Score: 7 Scaled Score: 1 Percentile Rank: 0.1 Interpretation: Extremely Low Attention Index score: 72 Percentile Rank: 3 Interpretation: Borderline DELAYED MEMORY: These subtests assess an individual?s retrieval of information from long-term memory. Patient exhibited difficulty recalling information that was presented to him at the beginning of the testing period. He did not recall any items from the word list, but did remember that the story he had listened to was generally ?about a fire.? He was then asked to recognize items from the list by indicating whether or not a given word was on that list (List Recognition). He answered correctly in 13/20 trials. List Recall Total Score: 0 Percentile Group: 3-9 Interpretation: Borderline List Recognition Total Score: 13 Percentile Group: <2 Interpretation: Extremely Low Story Recall Total Score: 1 Scaled Score: 3 Percentile Rank: 1 Interpretation: Extremely Low Figure Recall Total Score: 0 Scaled Score: 1 Percentile Rank: 0.1 Interpretation: Extremely Low Delayed Memory Index Score: 44 Percentile Rank: <0.1 Interpretation: Extremely Low Sum of Index Scores: 283 Total Scale: 50 Percentile: <0.1% Interpretation: Extremely Low Brandon Dyer (1998). Repeatable Battery for the Assessment of Neuropsychological Status [Manual]. [place]: aSm. Impressions and Recommendations Summary: On assessment today, Mr. King presented with moderate expressive aphasia, with word finding difficulty that was evident at the conversational level and with confrontational naming. Mr. King often replaced words with non-words or other words which were similar in meaning or in phonetic structure. Mr. King also presented with moderate to severe short term memory difficulties, which he says are affecting him in daily life. Mr. King is recommended outpatient speech therapy 1x weekly x 12 sessions to trial cognitive linguistic therapy, with goals targeting short term recall and word finding. Recommendation for Speech Therapy: Outpatient Speech Therapy Frequency/Duration: 1x weekly x 12 weeks Date Range for Service Requested: Time to Reassess: 3 months Project Product Manager Goals: 1. Mr. King will complete the [place] Diagnostic Aphasia Examination (BDAE) to further assess his receptive and expressive language skills. 2. Mr. King will improve his performance on an expressive naming probe to 60% accuracy when provided with minimal assistance. 3. Mr. King will utilize a variety of word-finding strategies at the conversational level with minimal assistance in >80% opportunities presented to him. 4. Mr. King will utilize compensatory strategies to assist (immediate and delayed) short-term memory in 80% of opportunities independently. Short Term Goals: Goal # : 2.1. Mr. King will utilize complete a SEMANTIC FEATURE ANALYSIS chart for target words, providing physical components, category, use/function, action, association, location in 8 out of 10 trials with moderate assistance. 2.2. Mr. King will identify a category for concrete nouns given 3-5 members and add 2 additional members in 4 out of 5 trials with minimal assistance. Goal Status: New Goal Goal# : 3.1. Mr. King will use circumlocution, gestures, and writing to facilitate word retrieval and listener understanding when exhibiting word recall difficulty during conversation when provided with minimal cueing in 4 out of 5 opportunities across 3 sessions. Goal Status: New Goal Goal # : 4.1. Mr. King will use internal memory strategies (i.e. rehearsal, association, visualization) to recall 4 or more items (i.e. grocery list, medication list, etc.) at 80% accuracy when provided with minimal verbal cues. 4.2. Mr. King will electively use an igor or tech device to record and retrieve needed information in 4 out of 5 contexts with minimal verbal prompting. Goal Status: New Goal Recommended Referrals to be Discussed with Primary Care Provider: Audiological Evaluation Neurology Patient Education: Completed: Yes Patient/Caregiver Education: Described Results of Evaluation Patient expressed understanding of evaluation Comments/Barriers to Learning: It was a pleasure meeting and working with Mr. King. Please do not hesitate to contact [facility] if we can be of further assistance in his care. Labor Relations Worker Clinican/Clinical Fellow: No Supervisory Statement: N/A Speech Language Pathologist: Linda Marvin M.A., CCC-RAILWAYS ASSISTANT
== END 2025-05-08 15:12 | disposition still patient (30) ==
LOC: HO.SH 12:48
PROVIDERS: Visit Provider Internal Medicine Medical Oncology
DX: I61.2 Nontraumatic intracerebral hemorrhage in hemisphere, unspecified (principal)
CPT/HCPCS: 96125

== ENCOUNTER 2025-03-27 11:21 | Outpatient (REF) | payer MEDICARE, SELFPAY ==
--- OUTSIDE RECORDS SUMMARY | 2025-03-27 12:29 | XMS_ITS | Clinical Summary ---
Author Organization [facility] Address [address] [place] [address] [place] [address] Phone Care Team Providers Care Wardrobe Image Consultant Name Role Phone Unavailable Primary Care Provider [...] Office Visit [facility] [address] [place] [address] Anurag John MD Hypo-osmolality and [...] of 2 - PCV) 02/20/1959 Influenza Vaccine (#1) 2025 Hepatitis B Vaccine Aged Out No longe r eligible based on patient's age to complete this topic Insurance [facility] [place] [address]
--- OUTSIDE RECORDS SUMMARY | 2025-03-27 12:30 | XMS_ITS | Patient Health Record ---
Author Organization Robbie Kothari III, MD Address [address] [place] [address] Care Team Providers Care Chaser Helper Name Role Phone Robbie Kothari Primary Care Provider Allergies Allergen (clinical drug ingredient) Drug/Non Drug Allergy documented on EMR Reaction Allergy Type Onset Date Status No Known Drug Allergy Unknown Drug Allergy Active No Known Food Allergy Unknown Drug Allergy Active Results Component Value Reference Range Notes Hold Lt Blue - Possible Coag Reviewed date:10/30/2024 09:55:19 AM Interpretation: Performing Lab:[facility], [address] [place] [address] Notes/Report: Hold Lt Blue - Possible Coag SEE NOTE Specimen will be held untested for 4 hours. Call Hematology if testing is desired. Comprehensive Met. Panel Reviewed date:10/30/2024 09:55:19 AM Interpretation: Performing Lab:[facility], [address] [place] [address] Notes/Report: Sodium 131 135-145 mmol/L Potassium 4.2 [...] Magnesium Reviewed date:10/30/2024 09:55:19 AM Interpretation: Performing Lab:[address] [address] Notes/Report: Magnesium 1.5 1.6-2.6 mg/dL Troponin-I High Sensitivity Reviewed date:10/30/2024 09:55:19 AM Interpretation: Performing Lab:[facility], [address] [place] [address] Notes/Report: Troponin-I High Sensitivity 3.1 <3.5-35.0 ng/L The Duran high sensitivity Troponin-I results should be used in conjunction with other diagnostic information such as ECG, clinical observations and information, and patient symptoms to aid in the diagnosis of ME. SARS-CoV2/FLU/RSV Reviewed date:10/30/2024 09:55:19 AM Interpretation: Performing Lab:[address] [address] Notes/Report: Influenza A PCR NEGATIVE Negative Influenza [...] by authorized laboratories. Testing performed on the [employer] utilizing real-time RT-PCR. All SARS CoV2 and positive influenza A/B results are reported to [facility]. CT head for stroke Reviewed date:10/30/2024 09:55:19 AM Interpretation: Performing Lab: Notes/Report: [address] [address] [address] Scan Report Signed Patient: Freeman King MR#: [id number] [birth year] : 1940 Acct:[id number] Age/Sex: 84 / M ADM Date: 10/27/24 Loc: HO.ED Attending Dr: Ordering Physician: Alejandrina Mazariegos Date of Service: 10/27/24 Procedure(s): CT head for STROKE Accession Number(s): [id number] cc: Robbie Kothari MD; Alejandrina Mazariegos Report Number: [id number]: Total DLP = 799.00 mGy-cm EXAMINATION: CT [...] lobe. There is resultant mass effect and fquy-ry-crvvr midline shift of 3 mm. There is [...] atrium. 3. There is 3 mm of mokr-oy-cmpwa midline shift. No impending herniation at this time. This critical result was discussed with Alejandrina Mazariegos at 12:11 PM, on 10/27/2024 via phone call. Electronically signed by: Zohaib Brown MD 10/27/2024 12:14 PM [facility] Dictated By: Zohaib Brown MD Signed By: <Electronically signed by Zohaib Brown MD in OV> 10/27/24 1214 DD/ 1148 TD/TT: 10/27/24 1156 Vrt Mechanic: [place] [address] [address] Scan Report Signed Patient: Jeremiah King MR#: [id number] 30 : 1940 Acct:[id number] Age/Sex: 84 / M ADM Date: 10/27/24 Loc: HO.ED Attending Dr: Ordering Physician: Alejandrina Mazariegos Date of Service: 10/27/24 Procedure(s): CT hea d for STROKE Accession Number(s): [id number] cc: Robbie Kothari MD; Alejandrina Mazariegos Report [...] There is resultant m ass effect and vrqo-qe-mtgfn midline shift of 3 mm. There is [...] atrium. 3. There is 3 mm of egwv-aj-lgwee midline shift. No impending herniation at this time. This critical result was discussed with Alejandrina Mazareigos at 12:11 PM, on 10/27/2024 via phone call. Electronically gurpreet d by: Zohaib Brown MD 10/27/2024 12:14 PM [facility] Dictated By: Zohaib Brown MD Signed By: <Electronically signed by Zohaib Brown MD in OV> 10/27/24 1214 DD/ 1148 TD/TT: 10/27/24 1156 Vrt Mechanic: CT cervical spine wo con Reviewed date:10/30/2024 09:55:19 AM Interpretation: Performing Lab: Notes/Report: [address] [address] [address] Scan Report Signed Patient: Freeman King MR#: [id number] [birth year] : 1940 Acct:[id number] Age/Sex: 84 / M ADM Date: 10/27/24 Loc: HO.ED Attending Dr: Ordering Physician: Alejandrina Mazariegos Date of Service: 10/27/24 Procedure(s): CT cervical spine wo IV con Accession Number(s): [id number] cc: Robbie Kothari MD; Alejandrina Mazariegos Report Number: [id number]: Total DLP = 376.00 mGy-cm EXAMINATION: CT [...] by: Zohaib Brown MD 10/27/2024 02:23 PM [facility] Dictated By: Zohaib Brown MD Signed By: <Electronically signed by Zohaib Brown MD in OV> 10/27/24 1423 DD/ 1212 TD/TT: 10/27/24 1334 Vrt Mechanic: [place] [address] [address] Scan Report Signed Patient: Jeremiah King MR#: [id number] [birth year] : 1940 Acct:[id number] Age/Sex: 84 / M ADM Date: 10/27/24 Loc: .ED Attending Dr: Ordering Physician: Alejandrina Mazariegos Date of Service: 10/27/24 Procedure(s): CT cer vical spine wo IV con Accession Number(s): [id number] cc: Robbie Kothari MD; Alejandrina Mazariegos Report [...] by: Zohaib Brown MD 10/27/2024 02:23 PM [facility] Dictated By: Zohaib Brown MD Signed By: <Electronically signed by Zohaib Brown MD in OV> 10/27/24 1423 DD/ 1212 TD/TT: 10/27/24 1334 Vrt Mechanic: XR chest 1V Reviewed date:10/30/2024 09:55:19 AM Interpretation: Performing Lab: Notes/Report: [address] [address] XRay Report Signed Patient: Freeman King MR#: [id number] [birth year] : 1940 Acct:[id number] Age/Sex: 84 / M ADM Date: 10/27/24 Loc: HO.ED Attending Dr: Ordering Physician: Alejandrina Mazariegos Date of Service: 10/27/24 Procedure(s): XR chest 1V Accession Number(s): [id number] cc: Robbie Kothari MD; Alejandrina Mazariegos EXAMINATION: [...] by: Zohaib Brown MD 10/27/2024 01:41 PM [facility] Dictated By: Zohaib Brown MD Signed By: <Electronically signed by Zohaib Brown MD in OV> 10/27/24 1341 DD/ 1127 TD/TT: 10/27/24 1328 Vrt Mechanic: [address] [address] XRay Report Signed Patient: Jeremiah King MR#: [id number] [birth year] : 1940 Acct:[id number] Age/Sex: 84 / M ADM Date: 10/27/24 Loc: HO.ED Attending Dr: Ordering Physician: Alejandrina Mazariegos Date of Service: 10/27/24 Procedure(s): XR chest 1V Accession Number(s): [id number] cc: Robbie Kothari MD; Alejandrina Mazariegos EXAMINATION: [...] by: Zohaib Brown MD 10/27/2024 01:41 PM [facility] Dictated By: Zohaib Brown MD Signed By: <Electronically signed by Zohaib Brown MD in OV> 10/27/24 1341 DD/ 1127 TD/TT: 10/27/24 1328 Vrt Mechanic: XR chest 2V Reviewed date:12/16/2024 03:30:40 PM Interpretation: Performing Lab: Notes/Report: [address] [address] XRay Report Signed Patient: Freeman King MR#: [id number] 30 : 1940 Acct:[id number] Age/Sex: 84 / M ADM Date: 12/02/24 Loc: HO.XRAY Attending Dr: Robbie Kothari MD Ordering Physician: Denilson Minor MD Date of Service: 12/02/24 Procedure(s): XR chest 2V Accession Number(s): [id number] cc: Robbie Kothari MD; Denilson Minor MD [...] 12/02/24 1150 DD/ 1042 TD/TT: 12/02/24 1052 Vrt Mechanic: [place] [address] XRay Report Signed Patient: Jeremiah King MR#: [id number] [birth year] : 1940 Acct:[id number] Age/Sex: 84 / M ADM Date: 12/02/24 Loc: JILLIAN Attending Dr: Robbie Kothari MD Ordering Physician: Denilson Minor MD Date of Service: 12/02/24 Procedure(s): XR chest 2V Accession Number(s): [id number] cc: Robbie Kothari MD; Denilson Minor MD [...] docum ent resolution. Electronically gurpreet d by: Robbei Rosales MD 12/02/2024 11:50 AM EDT RP Dictated By: Robbie Rosales MD Signed By: <Electronically signed by Robbie Rosales MD in OV> 12/02/24 1150 DD/ 1042 TD/TT: 12/02/24 1052 Vrt Mechanic: Complete Blood Count Auto Di ff Reviewed date:12/16/2024 03:30:40 PM Interpretation: Performing Lab:[facility], [address] [place] [address] Notes/Report: White Blood Count 5.2 4.8-10.8 X10*3/uL [...] Panel Reviewed date:12/16/2024 03:30:40 PM Interpretation: Performing Lab:[address] [address] Notes/Report: Sodium 136 135-145 mmol/L Potassium 3.9 [...] Magnesium Reviewed date:12/16/2024 03:30:40 PM Interpretation: Performing Lab:[facility], [address] [place] [address] Notes/Report: Magnesium 1.8 1.6-2.6 mg/dL XR chest 2V Reviewed date:12/16/2024 03:30:40 PM Interpretation: Performing Lab: Notes/Report: [address] [address] XRay Report Signed Patient: Freeman King MR#: [id number] [birth year] : 1940 Acct:[id number] Age/Sex: 84 / M ADM Date: 12/16/24 Loc: JILLIAN Attending Dr: Denilson Minor MD Ordering Physician: Denilson Minor MD Date of Service: 12/16/24 Procedure(s): XR chest 2V Accession Number(s): [id number] cc: Robbie Kothari MD; Denilson Minor MD [...] 12/16/24 1138 DD/ 1048 TD/TT: 12/16/24 1110 Vrt Mechanic: [place] [address] XRay Report Signed Patient: Jeremiah King MR#: [id number] [birth year] : 1940 Acct:[id number] Age/Sex: 84 / M ADM Date: 12/16/24 Loc: .XRAY Attending Dr: Denilson Minor MD Ordering Physician: Denilson Minor MD Date of Service: 12/16/24 Procedure(s): XR chest 2V Accession Number(s): [id number] cc: Robbie Kothari MD; Denilson Minor MD [...] 12/16/24 1138 DD/ 1048 TD/TT: 12/16/24 1110 Vrt Mechanic: Complete Blood Count Auto Di ff Reviewed date:12/30/2024 08:37:25 PM Interpretation: Performing Lab:[facility], [address] [place] [address] Notes/Report: White Blood Count 6.5 4.8-10.8 X10*3/uL [...] NRBC Abs Auto 0.000 0.0-0.012 X10*3/uL Comprehensive [place]. Panel Fa Reviewed date:12/30/2024 08:37:25 PM Interpretation: Performing Lab:[facility], [address] [place] [address] Notes/Report: Sodium 135 135-145 mmol/L Potassium 4.2 [...] Panel Reviewed date:12/30/2024 08:37:25 PM Interpretation: Performing Lab:[facility], [address] [place] [address] Notes/Report: Triglycerides 84 <150 mg/dL Desirable Triglyceride: [...] Antigen Reviewed date:12/30/2024 08:37:25 PM Interpretation: Performing Lab:[facility], [address] [place] [address] Notes/Report: Prostate Specific Antigen 2.95 <0.05-4.0 ng/mL PSA methodology: Duran Alinity i Chemiluminescent Microparticle Immunoassay (CMIA) Complete Blood Count Auto Di ff Reviewed date:12/30/2024 08:37:25 PM Interpretation: Performing Lab:[facility], [address] [place] [address] Notes/Report: White Blood Count 9.1 4.8-10.8 X10*3/uL [...] te Reviewed date:12/30/2024 08:37:25 PM Interpretation: Performing Lab:[facility], [address] [place] [address] Notes/Report: Erythrocyte Sedimentation Rate 60 0-15 MM/HR Patients with polycythemia and many hemoglobin abnormalities may have depressed sed rates whereas patients with anemia may have elevated sed rates. Partial Thromboplastin Time Reviewed date:12/30/2024 08:37:25 PM Interpretation: Performing Lab:[facility], [address] [place] [address] Notes/Report: Partial Thromboplastin Time 33.0 26.0-36.8 SEC For information regarding the monitoring of direct thrombin inhibitors, please refer to Pharmacy. Comprehensive Met. Panel Reviewed date:12/30/2024 08:37:25 PM Interpretation: Performing Lab:[facility], [address] [place] [address] Notes/Report: Sodium 132 135-145 mmol/L Potassium 4.9 [...] Acid Reviewed date:12/30/2024 08:37:25 PM Interpretation: Performing Lab:[facility], [address] [place] [address] Notes/Report: Lactic Acid 1.0 0.5-2.0 mmol/L Uric Acid Reviewed date:12/30/2024 08:37:25 PM Interpretation: Performing Lab:[facility], [address] [place] [address] Notes/Report: Uric Acid 4.1 3.4-7.0 mg/dL Magnesium Reviewed date:12/30/2024 08:37:25 PM Interpretation: Performing Lab:[facility], [address] [place] [address] Notes/Report: Magnesium 1.7 1.6-2.6 mg/dL Troponin-I High Sensitivity Reviewed date:12/30/2024 08:37:25 PM Interpretation: Performing Lab:[facility], [address] [place] [address] Notes/Report: Troponin-I High Sensitivity 3.4 <3.5-35.0 ng/L The Duran high sensitivity Troponin-I results should be used in conjunction with other diagnostic information such as ECG, clinical observations and information, and patient symptoms to aid in the diagnosis of ME. C Reactive Protein Reviewed date:12/30/2024 08:37:25 PM Interpretation: Performing Lab:[facility], [address] [place] [address] Notes/Report: C Reactive Protein 4.85 < or = 0.50 mg/dL B Type Natriuretic Peptide Reviewed date:12/30/2024 08:37:25 PM Interpretation: Performing Lab:[facility], [address] [place] [address] Notes/Report: B Type Natriuretic Peptide 82 <100 pg/mL Lipase Reviewed date:12/30/2024 08:37:25 PM Interpretation: Performing Lab:[facility], [address] [place] [address] Notes/Report: Lipase 43 8-78 U/L UA CC w/rflx Micro + Cult Reviewed date:12/30/2024 08:37:25 PM Interpretation: Performing Lab:[facility], [address] [place] [phone] Notes/Report: Urine, Clean Catch Color Urine Yellow Appearance Urine Clear PH 7.5 5.0-9.0 Glucose Urine UA Negative Negative mg/dL Urine Blood Negative Negative Specific Traver - Urine >= 1.030 1.005-1.025 Urine Protein Negative Neg-Trace mg/dL Urine Ketones Negative Negative mg/dL Nitrite Urine Negative Negative Leukocyte Esterase Urine Negative Negative SARS-CoV2/FLU/RSV Reviewed date:12/30/2024 08:37:25 PM Interpretation: Performing Lab:[address] [address] Notes/Report: Influenza A PCR NEGATIVE Negative Influenza [...] by authorized laboratories. Testing performed on the [employer] utilizing real-time RT-PCR. All SARS CoV2 and positive influenza A/B results are reported to [facility]. Blood Culture (First) Reviewed date:01/14/2025 08:40:47 PM Interpretation: Performing Lab:[facility], [address] [place] [address] Notes/Report: Blood Culture (First) No growth after 5 days. Blood Culture (Second) Reviewed date:01/14/2025 08:40:47 PM Interpretation: Performing Lab:[address] [address] Notes/Report: Blood Culture (Second) No growth after [address] angio head neck Reviewed date:12/30/2024 08:37:25 PM Interpretation: Performing Lab: Notes/Report: [address] [address] [address] Scan Report Signed Patient: Freeman King MR#: [id number] [birth year] : 1940 Acct:[id number] Age/Sex: 84 / M ADM Date: 12/30/24 Loc: HO.ED Attending Dr: Ordering Physician: Rahul Zamora MD Date of Service: 12/30/24 Procedure(s): CT angio head neck Accession Number(s): [id number] cc: Robbie Kothari MD; Rahul Zamora MD Report Number: [id number]: Total DLP = 1652.00 mGy-cm EXAMINATION: CTA [...] intimal flap. Superior cerebellar arteries are patent. copy manager: Right P1 segment: Hypoplastic/atretic. No focal stenosis. [...] Lázaro Ely MD 12/30/2024 12:25 PM EDT Dictated By: Lázaro Elias MD Signed By: <Electronically signed by Lázaro Monique MD in OV> 12/30/24 1225 DD/ 1133 TD/TT: 12/30/24 1155 Vrt Mechanic: [address] [address] [address] Scan Report Signed Patient: Jeremiah King MR#: [id number] [birth year] : 1940 Acct:[id number] Age/Sex: 84 / M ADM Date: 12/30/24 Loc: HO.ED Attending Dr: Ordering Physician: Rahul Zamora MD Date of Service: 12/30/24 Procedure(s): CT ang io head neck Accession Number(s): [id number] cc: Robbie Kothari MD; Rahul Zamora MD [...] intimal flap. Superior cerebellar arteries are patent. copy manager: Right P1 segment: Hypoplastic/atretic. No focal stenosis. [...] is communicated to: Emergency physician Dr. Rahul aZmora on December 30, 2024 at 12:05 PM Electronically gurpreet d by: Lázaro Ely MD 12/30/2024 12:25 PM EDT RP Dictated By: Lázaro Garcia MD Signed By: <Electronically signed by Lázrao Monique MD in OV> 12/30/24 1225 DD/ 1133 TD/TT: 12/30/24 1155 Vrt Mechanic: XR wrist RT 2V Reviewed date:12/30/2024 08:37:25 PM Interpretation: Performing Lab: Notes/Report: [address] [address] XRay Report Signed Patient: Freeman King MR#: [id number] [birth year] : 1940 Acct:[id number] Age/Sex: 84 / M ADM Date: 12/30/24 Loc: HO.ED Attending Dr: Ordering Physician: Rahul Zamora MD Date of Service: 12/30/24 Procedure(s): XR wrist RT 2V Accession Number(s): [id number] cc: Robbie Kothari MD; Rahul Zamora MD [...] 12/30/24 1300 DD/ 1243 TD/TT: 12/30/24 1255 Vrt Mechanic: [address] [address] XRay Report Signed Patient: Jeremiah King MR#: [id number] [birth year] : 1940 Acct:[id number] Age/Sex: 84 / M ADM Date: 12/30/24 Loc: HO.ED Attending Dr: Ordering Physician: Rahul Zamora MD Date of Service: 12/30/24 Procedure(s): XR wri st RT 2V Accession Number(s): [id number] cc: Robbie Kothari MD; Rahul Zamora MD [...] 12/30/24 1300 DD/ 1243 TD/TT: 12/30/24 1255 Vrt Mechanic: XR chest 1V Reviewed date:12/30/2024 08:37:25 PM Interpretation: Performing Lab: Notes/Report: [address] [address] XRay Report Signed Patient: Freeman King MR#: [id number] [birth year] : 1940 Acct:[id number] Age/Sex: 84 / M ADM Date: 12/30/24 Loc: .ED Attending Dr: Ordering Physician: Rahul Zamora MD Date of Service: 12/30/24 Procedure(s): XR chest 1V Accession Number(s): [id number] cc: Robbie Kothari MD; Rahul Zamora MD [...] 12/30/24 1210 DD/ 1031 TD/TT: 12/30/24 1149 Vrt Mechanic: [place] [address] XRay Report Signed Patient: Jeremiah King MR#: [id number] [birth year] : 1940 Acct:[id number] Age/Sex: 84 / M ADM Date: 12/30/24 Loc: .ED Attending Dr: Ordering Physician: Rahul Zamora MD Date of Service: 12/30/24 Procedure(s): XR chest 1V Accession Number(s): [id number] cc: Robbie Kothari MD; Rahul Zamora MD [...] 12/30/24 1210 DD/ 1031 TD/TT: 12/30/24 1149 Vrt Mechanic: XR hand RT min 3V Reviewed date:12/30/2024 08:37:25 PM Interpretation: Performing Lab: Notes/Report: [address] [address] XRay Report Signed Patient: Freeman King MR#: [id number] [birth year] : 1940 Acct:[id number] Age/Sex: 84 / M ADM Date: 12/30/24 Loc: HO.ED Attending Dr: Ordering Physician: Rahul Zamora MD Date of Service: 12/30/24 Procedure(s): XR hand RT min 3V Accession Number(s): [id number] cc: Robbie Kothari MD; Rahul Zamora MD [...] 12/30/24 1301 DD/ 1243 TD/TT: 12/30/24 1255 Vrt Mechanic: [address] [address] XRay Report Signed Patient: Jeremiah King MR#: [id number] [birth year] : 1940 Acct:[id number] Age/Sex: 84 / M ADM Date: 12/30/24 Loc: HO.ED Attending Dr: Ordering Physician: Rahul Zamora MD Date of Service: 12/30/24 Procedure(s): XR camacho d RT min 3V Accession Number(s): [id number] cc: Rbobie Kothari MD; Rahul Zamora MD EXAMINATION: XR [...] 12/30/24 1301 DD/ 1243 TD/TT: 12/30/24 1255 Vrt Mechanic: Renae Coates Hematolo gy Reviewed date:01/01/2025 10:45:53 AM Interpretation: Performing Lab:[facility], [address] [place] [phone] Notes/Report: Hold Lav - Possible Hematology SEE NOTE Specimen will be held untested for 8 hours. Call Hematology if testing is desired. Basic Metabolic Panel Reviewed date:01/01/2025 10:45:53 AM Interpretation: Performing Lab:[facility], [address] [place] [address] Notes/Report: Sodium 135 135-145 mmol/L Potassium 4.2 [...] ff Reviewed date:01/14/2025 08:40:47 PM Interpretation: Performing Lab:[facility], [address] [place] [address] Notes/Report: White Blood Count 7.5 4.8-10.8 X10*3/uL [...] Coag Reviewed date:01/14/2025 08:40:47 PM Interpretation: Performing Lab:[facility], [address] [place] [address] Notes/Report: Hold Lt Blue - Possible Coag SEE NOTE Specimen will be held untested for 4 hours. Call Hematology if testing is desired. Liver Panel Reviewed date:01/14/2025 08:40:47 PM Interpretation: Performing Lab:[facility], [address] [place] [address] Notes/Report: Bilirubin Total 1.0 0.0-1.0 mg/dL Bilirubin Direct 0.3 0.0-0.5 mg/dL Aspartate Amino Transferase 28 5-37 U/L Slight Hemolysis.Interpret result with caution. Alanine Aminotransferase 12 0-40 U/L Total Protein 7.4 6.5-8.0 g/dL Albumin Level 3.6 3.5-5.0 g/dL Alkaline Phosphatase 70 39-117 U/L Basic Metabolic Panel Reviewed date:01/14/2025 08:40:47 PM Interpretation: Performing Lab:[facility], [address] [place] [address] Notes/Report: Sodium 130 135-145 mmol/L Potassium 4.4 [...] Acid Reviewed date:01/14/2025 08:40:47 PM Interpretation: Performing Lab:[facility], [address] [place] [address] Notes/Report: Lactic Acid 0.8 0.5-2.0 mmol/L Magnesium Reviewed date:01/14/2025 08:40:47 PM Interpretation: Performing Lab:[address] [address] Notes/Report: Magnesium 1.8 1.6-2.6 mg/dL Troponin-I High Sensitivity Reviewed date:01/14/2025 08:40:47 PM Interpretation: Performing Lab:[address] [address] Notes/Report: Troponin-I High Sensitivity 3.3 <3.5-35.0 ng/L The Duran high sensitivity Troponin-I results should be used in conjunction with other diagnostic information such as ECG, clinical observations and information, and patient symptoms to aid in the diagnosis of ME. C Reactive Protein Reviewed date:01/14/2025 08:40:47 PM Interpretation: Performing Lab:[address] [address] Notes/Report: C Reactive Protein 13.61 < or = 0.50 mg/dL B Type Natriuretic Peptide Reviewed date:01/14/2025 08:40:47 PM Interpretation: Performing Lab:[facility], [address] [place] [address] Notes/Report: B Type Natriuretic Peptide 53 <100 pg/mL Procalcitonin Reviewed date:01/14/2025 08:40:47 PM Interpretation: Performing Lab:[facility], [address] [place] [address] Notes/Report: Procalcitonin 0.04 Procalcitonin (PCT) Reference Range: [...] results from different laboratories and methodologies. References: [employer]/Society of Critical Care [...] 510(k) substantial equivalence determination decision summary for [facility] PCT KRISTI. http://www.accessda ta.fda.fov/cdrh_doc s/reviews/V569093.p df. Published September 2004. Accessed February 2017. Gram stain Reviewed date:01/17/2025 05:36:47 AM Interpretation: Performing Lab:[facility], [address] [place] [address] Notes/Report: Gram stain Gram stain results: Gram stain 4+ polys Gram stain 1+ epithelial cells Gram stain 4+ red blood cells Gram stain 1+ Gram-positive cocci UA CC w/rflx Micro + Cult Reviewed date:01/14/2025 08:40:47 PM Interpretation: Performing Lab:[address] [address] Notes/Report: Urine, Catheterized Color Urine Yellow Appearance Urine Clear PH 6.0 5.0-9.0 Glucose Urine UA Negative Negative mg/dL Urine Blood Negative Negative Specific Traver - Urine 1.020 1.005-1.025 Urine Protein Negative Neg-Trace mg/dL Urine Ketones Negative Negative mg/dL Nitrite Urine Negative Negative Leukocyte Esterase Urine Negative Negative SARS-CoV2/FLU/RSV Reviewed date:01/14/2025 08:40:47 PM Interpretation: Performing Lab:[address] [address] Notes/Report: Influenza A PCR NEGATIVE Negative Influenza [...] by authorized laboratories. Testing performed on the [employer] Gene[employer]pert utilizing real-time RT-PCR. All SARS CoV2 and positive influenza A/B results are reported to [facility]. Blood Culture (First) Reviewed date:02/12/2025 08:15:10 PM Interpretation: Performing Lab:[facility], [address] [place] [address] Notes/Report: Blood Culture (First) No growth after 5 days. Blood Culture (Second) Reviewed date:02/12/2025 08:15:10 PM Interpretation: Performing Lab:[address] [address] Notes/Report: Blood Culture (Second) No growth after 5 days. Sputum Culture Reviewed date:01/17/2025 05:36:47 AM Interpretation: Performing Lab:[facility], [address] [place] [address] Notes/Report: Sputum Culture BAP Sputum Culture 2+ Mixed respiratory ramon. CT chest wo con Reviewed date:01/14/2025 08:40:47 PM Interpretation: Performing Lab: Notes/Report: [address] [address] [address] Scan Report Signed Patient: Freeman King MR#: [id number] [birth year] : 1940 Acct:[id number] Age/Sex: 84 / M ADM Date: 01/13/25 Loc: .S3 358-[address]: Tommy Rodriguez MD Ordering Physician: Linette Brown Date of Service: 01/13/25 Procedure(s): CT chest wo IV con Accession Number(s): [id number] cc: Linette Brown; Robbie Kothari MD Report Number: [id number]: Total DLP = 336.00 mGy-cm CLINICAL HISTORY: Pt with hemoptysis, ?RUL and LLL pneumonia CT chest without contrast Comparison: CT/REG/ME/SR - CT CHEST WO IV CON - [...] OV> 01/13/25 174 DD/ 45 TD/TT: 01/13/251745 Vrt Mechanic: [address] [address] [address] Scan Report Signed Patient: Jeremiah King MR#: [id number] [birth year] : 1940 Acct:[id number] Age/Sex: 84 / M ADM Date: 01/13/25 Loc: HO.S3 358-[address]: Tommy Rodriguez MD Ordering Physician: Linette Brown Date of Service: 01/13/25 Procedure(s): CT y[address] st wo IV con Accession Number(s): [id number] cc: Linette Brown; Robbie Kothari MD Report [...] Richa Cerda MD in OV> 01/13/251746 DD/ 1746 TD/TT: 01/13/25 174 Vrt Mechanic: CT head/brain wo con Reviewed date:01/14/2025 08:40:47 PM Interpretation: Performing Lab: Notes/Report: [address] [address] [address] Scan Report Signed Patient: Freeman King MR#: [id number] [birth year] : 1940 Acct:[id number] Age/Sex: 84 / M ADM Date: 01/13/25 Loc: HO.ED Attending Dr: Ordering Physician: Taras Spencer MD Date of Service: 01/13/25 Procedure(s): CT head/brain wo IV con Accession Number(s): [id number] cc: Robbie Kothari MD; Taras Spencer MD Report Number: [id number]: Total DLP = 726.00 mGy-cm EXAMINATION: CT [...] 01/13/25 1235 DD/ 1215 TD/TT: 01/13/25 1226 Vrt Mechanic: [address] [address] [address] Scan Report Signed Patient: Jeremiah King MR#: [id number] [birth year] : 1940 Acct:[id number] Age/Sex: 84 / M ADM Date: 01/13/25 Loc: HO.ED Attending Dr: Ordering Physician: Taras Spencer MD Date of Service: 01/13/25 Procedure(s): CT head/brain wo IV con Accession Number(s): [id number] cc: Robbie Kothari MD; Taras Spencer MD [...] 01/13/25 1235 DD/ 1215 TD/TT: 01/13/25 1226 Vrt Mechanic: XR chest 1V Reviewed date:01/14/2025 08:40:47 PM Interpretation: Performing Lab: Notes/Report: [address] [address] XRay Report Signed Patient: Freeman King MR#: [id number] [birth year] : 1940 Acct:[id number] Age/Sex: 84 / M ADM Date: 01/13/25 Loc: HO.ED Attending Dr: Ordering Physician: Taras Spencer MD Date of Service: 01/13/25 Procedure(s): XR chest 1V Accession Number(s): [id number] cc: Robbie Kothari MD; Taras Spencer MD [...] 01/13/25 1228 DD/ 1222 TD/TT: 01/13/25 1222 Vrt Mechanic: [address] [address] XRay Report Signed Patient: Jeremiah King MR#: [id number] [birth year] : 1940 Acct:[id number] Age/Sex: 84 / M ADM Date: 01/13/25 Loc: HO.ED Attending Dr: Ordering Physician: Taras Spencer MD Date of Service: 01/13/25 Procedure(s): XR chest 1V Accession Number(s): [id number] cc: Robbie Kothari MD; Taras Spencer MD [...] 01/13/25 1228 DD/ 1222 TD/TT: 01/13/25 1222 Vrt Mechanic: Hold Lav - Possible Hematolo gy Reviewed date:01/14/2025 08:40:46 PM Interpretation: Performing Lab:[facility], [address] [place] [address] Notes/Report: Hold Lav - Possible Hematology SEE NOTE Specimen will be held untested for 8 hours. Call Hematology if testing is desired. Basic Metabolic Panel Reviewed date:01/14/2025 08:40:47 PM Interpretation: Performing Lab:[facility], [address] [place] [address] Notes/Report: Sodium 130 135-145 mmol/L Potassium 4.0 [...] Urine Reviewed date:01/14/2025 08:40:47 PM Interpretation: Performing Lab:[address] [address] Notes/Report: Osmolality Urine [phone] mosm/kg Sodium Urine Random Reviewed date:01/14/2025 08:40:47 PM Interpretation: Performing Lab:[address] [address] Notes/Report: Sodium Urine Random 93.0 Vancomycin Random Reviewed date:01/14/2025 08:40:47 PM Interpretation: Performing Lab:[address] [address] Notes/Report: Vancomycin Random 9.3 15-20 mcg/mL Complete Blood Count Auto Di ff Reviewed date:01/15/2025 06:45:37 AM Interpretation: Performing Lab:[address] [address] Notes/Report: White Blood Count 5.0 4.8-10.8 X10*3/uL [...] Hematocrit Reviewed date:01/17/2025 05:36:47 AM Interpretation: Performing Lab:[address] [address] Notes/Report: Hemoglobin 11.9 14.0-18.0 g/dl Hematocrit 33.2 42.0-52.0 % Basic Metabolic Panel Reviewed date:01/15/2025 06:45:37 AM Interpretation: Performing Lab:[address] [address] Notes/Report: Sodium 135 135-145 mmol/L Potassium 3.8 [...] gy Reviewed date:01/17/2025 05:36:47 AM Interpretation: Performing Lab:[address] [address] Notes/Report: Hold Lav - Possible Hematology SEE NOTE Specimen will be held untested for 8 hours. Call Hematology if testing is desired. Creatinine Reviewed date:01/17/2025 05:36:47 AM Interpretation: Performing Lab:[facility], [address] [place] [address] Notes/Report: Creatinine 0.77 0.5-1.4 mg/dL Creatinine Clr [...] ff Reviewed date:02/26/2025 07:54:27 AM Interpretation: Performing Lab:[address] [address] Notes/Report: White Blood Count 6.6 4.8-10.8 X10*3/uL [...] NRBC Abs Auto 0.000 0.0-0.012 X10*3/uL Comprehensive [place]. Panel Fa st Reviewed date:02/26/2025 07:54:27 AM Interpretation: Performing Lab:[facility], [address] [place] [address] Notes/Report: Sodium 135 135-145 mmol/L Potassium 4.3 [...] Panel Reviewed date:02/26/2025 07:54:27 AM Interpretation: Performing Lab:[facility], [address] [place] [address] Notes/Report: Triglycerides 58 <150 mg/dL Desirable Triglyceride: [...] date:02/26/2025 07:54:27 AM Interpretation: Performing Lab: Notes/Report: [address] [address] XRay Report Signed Patient: Freeman King MR#: [id number] [birth year] : 1940 Acct:[id number] Age/Sex: 85 / M ADM Date: 02/23/25 Loc: HO.KIRTIAY Attending Dr: Denilson Minor MD Ordering Physician: Denilson Minor MD Date of Service: 02/23/25 Procedure(s): XR chest 2V Accession Number(s): [id number] cc: Robbie Kothari MD; Denilson Minor MD [...] OV> 02/23/25 0853 DD/ 6 TD/TT: 02/23/25835 Vrt Mechanic: [place] [address] XRay Report Signed Patient: eJremiah King MR#: [id number] [birth year] : 1940 Acct:[id number] Age/Sex: 85 / M ADM Date: 02/23/25 Loc: HO.XRAY Attending Dr: Denilson Minor MD Ordering Physician: Denilson Minor MD Date of Service: 02/23/25 Procedure(s): XR chest 2V Accession Number(s): [id number] cc: Robbie Kothari MD; Denilson Mionr MD EXAMINATION: XR CHEST CLINICAL INFORMATION: J41.0 [...] 02/23/25 0853 DD/ 6 TD/TT: 02/23/25 0836 Vrt Mechanic: Reason For Referral Reason Urgent Referral Requ est Evaluate and Treat ? Catheter Can not tolerate tamsulosin Diagnosis 1 Benign prostatic hyp erplasia with lower urinary tract symptoms (N40.1) Diagnosis 2 Nocturia (R35.1) Referral Organization Robbie Kothari III, MD Referring Provider First Name Robbie Referring Provider Last Name Saniya [facility] Referred Provider [facility], Urology Referred Provider Specialty Urology General Notes D, 12/06/2024 09:06:05 AM > Faxed referral and progress notes from last 2 visits, DSarika 12/12/2024 10:23:22 AM > stated they did [...] Referring Provider Last Name Kothari [facility]erred Organization [facility] cherelle Referred Provider [facility], Core Physical Therapy Referred Address [address] [place] [id number], Referred Provider Specialty Physical The rapist General Notes D 03/09/2025 02:30:36 PM > referral and progress note faxed. 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 Referred Provider [facility], Speech and Hearing Referred Provider Specialty Unknown General Notes D 03/09/2025 02:27:01 PM > Referral and last progress not faxed Referral Priority Routine Referral Appointment Date 03/15/2025 Medications Medication SIG (Take, Route, Frequency, Duration) Notes Start Date End Date Status Hydrocortisone 1 % 1 application Manager [employer] ally Twice a day 01/27/2025 Active Albuterol Sulfate (2.5 MG/3ML) 0.083% Inhalation Active Nystatin 487889 UNIT/GM APPLY TOPICALLY 3 TIMES A DAY FOR 30 DAYS APPLY TO THE AFFECTED AREA THREE TIMES A DAY External Active Atorvastatin Calcium 10 MG 1 tablet Oral ly Once a day Active Azithromycin 500 MG Oral Active Tamsulosin HCl 0.4 MG Oral Active predniSONE 20 MG 1 tablet with food o r milk Orally Once a day 03/10/2025 Active Immunizations Vaccine Route Administration Date Status [...] Problem Status W/U Status Risk Notes Problem 1173577 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 Problem Hyperlipidemia (40873909) Hyperlipidemia (E78.5) Active confirmed Distal cholesterol is stable but his triglycerides are elevated. He will continue on his current diet until he has fully recovered from the stroke. He will continue on his medications. Problem 18569399 Hyponatremia (E87.1) Active confirmed After admission to [facility] he required hypertonic saline and then 1 g of sodium chloride tablets 3 times a day to restore his potassium to normal. He was discharged without this. Blood work with a sodium level will be checked frequently. Problem 913210511 Underweight (R63.6) Active confirmed His appetite is better and he is feeling stronger. His body mass index is now 19. We continue our discussions on diet and nutrition. Problem 60158174 Mycobacterial infection, unspecified (A31.9) Active confirmed He continues on daily A azithromycin. A recent chest x-ray shows worsening airspace disease in right lung. He is due to see pulmonary within the next week. He has a cough which is nonproductive and is afebrile. n. Problem 40882152 Orthostatic hypotension (I95.1) Active confirmed He developed th is at home and was brought to the [facility] emergency of December 30, 2024 and admitted overnight for hydration. We have discussed aggressive hydration and adequate nutrition. Problem 832758853 Rosacea (L71.9) Active confirmed He was given metronidazole gel. He was instructed in its use. Problem 591084541 Pulmonary nodule (R91.1) Active confirmed This is being observed. No change in his symptoms have been noted. Problem 840118603 Adenoma of ascending colon (D12.2) Active confirmed He will call he r gastroenterologis t to see if additional colonoscopies will be recommended. Problem 874654295 Hypertrophy of prostate without urinary obstruction and other lower urinary tract symptoms (LUTS) (N40.0) Active confirmed He has been usi ng lifestyle modification and now experiences nocturia only once a night. Problem 54036664 Abdominal hernia without obstruction and without gangrene, recurrence not specified, unspecified hernia type (K46.9) Active confirmed The hernia is n ow asymptomatic and will be observed without treatment. Problem Pneumonia (743423857) Pneumonia (J18.9) Active confirmed He is taking th e azithromycin 3 times a week. The other antibiotic has been discontinued. The pneumonia has resolved. He is breathing comfortably. Problem Seizure (12286212) Seizures (R56.9) Active confirmed Just before discharge from an [facility] he was begun on Keppra for periods of unresponsiveness. A repeat CT scan November 18, 2024 showed improvement in the hemorrhage and edema. The Her will be discontinued until the electroencephalog jackie is done. We have requested a repeat visit from [facility] neurology. Problem Stroke (023330969) Stroke (I63.9) Active confirmed Problem Benign prostatic hypertrophy without outflow obstruction (253162520) Benign prostatic hyperplasia without lower urinary tract symptoms (N40.0) Active confirmed Problem 3195976133810 Benign prostatic hyperplasia with lower urinary tract symptoms (N40.1) Active confirmed He says he is rising from sleep up to 4 times a night. His tamsulosin waas stopped because of a low blood pressure. It curtis now resumed. He is happy with this level of control. We discussed further lifestyle modifications he can maake to reduce nocturia. Problem Disorder of musculoskeletal system (730429) Leg weakness, bilateral (R29.898) Active confirmed Problem 20530861 Sleep apnea in adult (G47.30) Active confirmed He is using t he new CPAP machine without difficulty and is pleased with the results. Problem 90738510 Generalized weakness (R53.1) Active confirmed He was [...] tract infection or acute metabolic problem. 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 Problem 34583960 Atrial arrhythmia (I49.8) Active confirmed He was in a normal sinus rhythm today with no abnormalities. He has had no episodes of tachycardia, syncope or palpitations. 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 Problem 541286671575708 Acute gout of left hand, unspecified cause (M10.9) Active confirmed This was a clinical diagnosis and he is being treated with prednisone. It occurred within the last 48 hours. The left wrist is painful red and swollen. Vital Signs Heart Rate 77 /min 03/20/2025 Temperature 97.4 degrees Fahrenheit 03/20/2025 Respiratory Rate 16 /min 03/20/2025 Oximetry 98 % 03/20/2025 Blood pressure diastolic 72 mm Hg 03/20/2025 Height 76 in 03/20/2025 Blood pressure systolic 121 mm Hg 03/20/2025 Weight 164 lbs 03/20/2025 BMI 19.96 kg/m2 03/20/2025 Encounters Encounter Location Date Provider Diagnosis Robbie Kothari III, MD [address] [place] [address] [place] [address] 04/14/2024 Robbie Kothari Hyperlipidemia E78.5 ; Vertigo R42 ; Tinnitus, left H93.12 ; Former smoker Z87.891 ; Mycobacterial infection, unspecified A31.9 and Atrial arrhythmia I49.8 Robbie Kothari III, MD [address] [place] [address] [place] [address] 04/15/2024 Robbie Kothari Hyperlipidemia E78.5 ; Labyrinthitis, unspecified laterality H83.09 ; Former smoker Z87.891 ; Rosacea L71.9 ; Mycobacterial infection, unspecified A31.9 and Right anterior knee pain M25.561 Robbie Kothari III, MD [address] [place] [address] [place] [address] 04/22/2024 Robbie Kothari Hyperlipidemia E78.5 ; Benign prostatic hyperplasia with lower urinary tract symptoms N40.1 ; Former smoker Z87.891 ; Mycobacterial infection, unspecified A31.9 ; Sleep apnea in adult G47.30 and Labyrinthitis, unspecified laterality H83.09 Robbie Kothari III, MD [address] [place] [address] [place] [address] 06/02/2024 Robbie Kothari Encounter for immunization Z23 Robbie Kothari III, MD [address] [place] [address] [place] [address] 07/25/2024 Robbie Kothari Hyperlipidemia E78.5 ; Mycobacterial infection, unspecified A31.9 ; Benign prostatic hyperplasia with lower urinary tract symptoms N40.1 ; Former smoker Z87.891 ; 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 and Sleep apnea in adult G47.30 Robbie Kothari III, MD [address] [place] [address] [place] [address] 11/21/2024 Robbie Kothari Hyperlipidemia E78.5 ; Nontraumatic [...] in adult G47.30 Robbie Kothari III, MD [address] [place] [address] [place] [address] 12/02/2024 Robbie Kothari Hyperlipidemia E78.5 ; 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 ; Pneumonia J18.9 ; Former smoker Z87.891 ; Mycobacterial infection, unspecified A31.9 ; Sleep apnea in adult G47.30 and Benign prostatic hyperplasia with lower urinary tract symptoms N40.1 Robbie Kothari III, MD [address] [place] [address] [place] [address] 12/19/2024 Robbie Kothari Hyperlipidemia E78.5 ; 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 ; Pneumonia J18.9 ; Underweight R63.6 ; Seizures R56.9 ; Former smoker Z87.891 ; Mycobacterial infection, unspecified A31.9 ; Sleep apnea in adult G47.30 and Benign prostatic hyperplasia with lower urinary tract symptoms N40.1 Robbie Kothari III, MD [address] [place] [address] [place] [address] 01/04/2025 Robbie Kothari Orthostatic hypotens ion I95.1 ; Former smoker Z87.891 ; Atrial arrhythmia I49.8 ; Hyperlipidemia E78.5 ; Rosacea L71.9 ; Benign prostatic hyperplasia with lower urinary tract symptoms N40.1 ; 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 ; Underweight R63.6 and Pneumonia J18.9 Robbie Kothari III, MD [address] [place] [address] [place] [address] 01/13/2025 Robbie Kothari Generalized weakness R53.1 ; Hyperlipidemia E78.5 ; Former smoker Z87.891 ; Hypertrophy of prostate without urinary obstruction and other lower urinary tract symptoms (LUTS) N40.0 ; Mycobacterial infection, unspecified A31.9 ; Underweight R63.6 ; 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 ; Orthostatic hypotension I95.1 and Pneumonia J18.9 Robbie Kothari III, MD [address] [place] [address] [place] [address] 01/27/2025 Robbie Kothari Former smoker Z87.89 1 [...] Generalized weakness R53.1 Robbie Kothari III, MD [address] [place] [address] [place] [address] 02/24/2025 Robbie Kothari Mycobacterial infect ion, unspecified A31.9 ; 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 ; Benign prostatic hyperplasia with lower urinary tract symptoms N40.1 ; Seizures R56.9 ; Hyponatremia E87.1 ; Former smoker Z87.891 ; Generalized weakness R53.1 and Acute gout of left hand, unspecified cause M10.9 Robbie Kothari III, MD [address] [place] [address] [place] [address] 03/20/2025 Robbie Kothari Former smoker Z87.89 1 ; Hyperlipidemia 272.4 ; Benign prostatic hyperplasia without lower urinary tract symptoms N40.0 ; Mycobacterial infection, unspecified A31.9 ; Underweight R63.6 ; Anterior subcapsular polar age-related cataract of both eyes H25.033 ; Seizures R56.9 and 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 Robbie Kothari III, MD [address] [place] [address] [place] [address] 10/28/2024 Robbie Kothari III, MD [address] [place] [address] [place] [address] 11/21/2024 Robbie Kothari III, MD [address] [place] [address] 11/21/2024 Robbie Kothari III, MD [address] [facility] [place] [address] 11/22/2024 Robbie Kothari III, MD [address] [facility] [place] [place] [address] 11/22/2024 Robbie Kothari III, MD [address] [facility] [place] [address] 11/25/2024 Robbie Kothari III, MD [address] [place] [address] 11/25/2024 Robbie Kothari III, MD [address] [facility] [place] [place] [address] 12/05/2024 Robbie Kothari III, MD [address] [facility] [place] [address] 12/14/2024 Robbie Kothari III, MD [address] [place] [address] 12/20/2024 Robbie Kothari III, MD [address] [place] [address] 01/02/2025 Robbie Kothari III, MD [address] [place] [address] 01/03/2025 Robbie Kothari III, MD [address] [facility] [place] [address] 01/06/2025 Robbie Kothari III, MD [address] [facility] [place] [place] [address] 01/13/2025 Robbie Kothari III, MD [address] [place] [address] 01/17/2025 Robbie Kothari III, MD [address] [facility] [place] [address] 01/17/2025 Robbie Kothari III, MD [address] [facility] [place] [address] 02/07/2025 Robbie Kothari III, MD [address] [place] [address] [address] [place] [address] 02/10/2025 Robbie Kothari III, MD [address] [place] [address] [place] [address] 02/24/2025 Robbie Kothari III, MD [address] [place] [address] [place] [address] 02/27/2025 Robbie Kohtari III, MD [address] [place] [address] [place] [address] 03/03/2025 Robbie Kothari III, MD [address] [place] [address] [place] [address] 03/09/2025 Robbie Kothari III, MD [address] [place] [address] [place] [address] 03/10/2025 Robbie Kothari Assessments Encounter Date Diagnosis [...] at home and was brought to the [facility] emergency of December 30, 2024 and [...] be seen once a week at least. 03/20/2025 Hyperlipidemia (ICD9-CM - 272.4) His recent fasting lipid profile is stable and shows good control of his lipids. No change in his regimen as necessary. 03/20/2025 Former smoker (ICD-10 - Z87.891) He [...] - R56.9) Just before discharge from an [facility] he was begun on Keppra for periods of unresponsiveness. A repeat CT scan November 18, 2024 showed improvement in the hemorrhage and edema. The Her will be discontinued until the electroencephalogram is done. We have requested a repeat visit from [facility] neurology. 12/02/2024 Pneumonia (ICD-10 - J18.9) [...] modifications he can maake to reduce nocturia. 03/20/2025 Benign prostatic hyperplasia without lower urinary tract symptoms (ICD-10 - N40.0) 04/14/2024 Former smoker (ICD-10 - Z87.891) He [...] Hyponatremia (ICD-10 - E87.1) After admission to [facility] he required hypertonic saline and then [...] We have requested a repeat visit from [facility] neurology. 03/20/2025 Mycobacterial infection, unspecified (ICD-10 - A31.9) He continues on daily A azithromycin. A recent chest x-ray shows worsening airspace disease in right lung. He is due to see pulmonary within the next week. He has a cough which is nonproductive and is afebrile. n. 04/14/2024 Mycobacterial infection, unspecified (ICD-10 - A31.9) [...] We have requested a repeat visit from [facility] neurology. 01/04/2025 Rosacea (ICD-10 - L71.9) He [...] Hyponatremia (ICD-10 - E87.1) After admission to [facility] he required hypertonic saline and then 1 g of sodium chloride tablets 3 times a day to restore his potassium to normal. He was discharged without this. Blood work with a sodium level will be checked frequently. 03/20/2025 Underweight (ICD-10 - R63.6) His appetite is better and he is feeling stronger. His body mass index is now 19. We continue our discussions on diet and nutrition. 04/14/2024 Atrial arrhythmia (ICD-10 - I49.8) He [...] - R56.9) Just before discharge from an [facility] he was begun on Keppra for periods of unresponsiveness. A repeat CT scan November 18, 2024 showed improvement in the hemorrhage and edema. The Her will be discontinued until the electroencephalogram is done. We have requested a repeat visit from [facility] neurology. 02/24/2025 Former smoker (ICD-10 - Z87.891) He has a strategy to prevent relapse in times of stress and illness. 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 11/21/2024 Anterior subcapsular polar age-related cataract of [...] Hyponatremia (ICD-10 - E87.1) After admission to [facility] he required hypertonic saline and then [...] urinary tract infection or acute metabolic problem. 03/20/2025 Seizures (ICD-10 - R56.9) Just before discharge from an [facility] he was begun on Keppra for periods of unresponsiveness. A repeat CT scan November 18, 2024 showed improvement in the hemorrhage and edema. The Her will be discontinued until the electroencephalogram is done. We have requested a repeat visit from [facility] neurology. 11/21/2024 Rosacea (ICD-10 - L71.9) He was [...] at home and was brought to the [facility] emergency of December 30, 2024 and [...] left wrist is painful red and swollen. 03/20/2025 Nontraumatic hemorrhage of left cerebral hemisphere [...] seen once a week at least. 11/21/2024 Atrial arrhythmia (ICD-10 - I49.8) He [...] 07/22/2023 Next Appt Details Provider Name:Robbie Kothari, 05/02/2025 11:00:00 AM, [address] [place] [address] [address], [place], [address], Provider Name:Robbie Kothari, 01/29/2026 09:30:00 AM, [address] [place] [address] [address], [place], [address], Insurance Providers Payer Name Payer Address Payer Phone Subscriber Number Group Number Insured Name Patient Relationship to Insured Coverage Start Date Coverage End Date [employer]age [address] [address] [place] [address] [phone] [id number] Freeman King Self - patient is the insured MEDICARE NGS [address] [place] [phone] [id number] Freeman King Self - patient is the insured Medical (General) History Medical History History ICD Code colonic poyps 2002 benign prostatic hyperplasia (BPH) hyperlipidemia left herniorraphy age 30 neck and right shoulder pain 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
--- OUTSIDE RECORDS SUMMARY | 2025-03-27 12:30 | XMS_ITS | Encounter Summary ---
Author Organization [facility] Address [address] [place] [address] Care Team Providers Care Managed Services Consultant Name Role Phone Gloria Preston MD Primary Care Provider [phone] Encounter Details Date Type Department Care Team (Late st Contact Info) Description 11/05/2024 Lab Requisition [facility] - Main Lab [address] [facility] [place] [address] Gloria Preston MD [address] [place] [address] Encounter for other general examination Social History [...] CBC auto differential (11/05/2024 5:51 AM EST) [facility] WBC 8.0 4.8 - 10.8 K/mcL LAB HEMETOLOGY METHOD 11/05/2024 11:21 AM [facility] RBC 4.20(L) 4.50 - 5.50 M/mcL LAB HEMETOLOGY METHOD 11/05/2024 11:21 AM [facility] Hemoglobin 13.8 13.5 - 17.5 g/dL LAB HEMETOLOGY METHOD 11/05/2024 11:21 AM [facility] Hematocrit 39.6(L) 42.0 - 54.0 % LAB HEMETOLOGY METHOD 11/05/2024 11:21 AM [facility] MCV 94.7 79.0 - 98.0 FL LAB HEMETOLOGY METHOD 11/05/2024 11:21 AM [facility] MCH 33.0(H) 27.0 - 32.0 pcg LAB HEMETOLOGY METHOD 11/05/2024 11:21 AM [facility] MCHC 34.8 32.0 - 37.0 g/dL LAB HEMETOLOGY METHOD 11/05/2024 11:21 AM [facility] RDW 12.7 11.0 - 15.0 % LAB HEMETOLOGY METHOD 11/05/2024 11:21 AM [facility] Platelets 261 130 - 400 K/mcL LAB HEMETOLOGY METHOD 11/05/2024 11:21 AM [facility] MPV 10.4 7.0 - 11.0 FL LAB HEMETOLOGY METHOD 11/05/2024 11:21 AM [facility] NRBC 0.0 <1.0 % LAB HEMETOLOGY METHOD 11/05/2024 11:21 AM [facility] NRBC Absolute 0.00 <0.10 K/mcL LAB HEMETOLOGY METHOD 11/05/2024 11:21 AM [facility] Neutrophils Relative 73.3 % LAB HEMETOLOGY METHOD 11/05/2024 11:21 AM [facility] Lymphocytes Relative 10.6 % LAB HEMETOLOGY METHOD 11/05/2024 11:21 AM [facility] Monocytes Relative 14.7 % LAB HEMETOLOGY METHOD 11/05/2024 11:21 AM [facility] Eosinophils Relative 0.4 % LAB HEMETOLOGY METHOD 11/05/2024 11:21 AM [facility] Basophils Relative 0.6 % LAB HEMETOLOGY METHOD 11/05/2024 11:21 AM [facility] Immature Granulocytes Relative 0.4 % LAB HEMETOLOGY METHOD 11/05/2024 11:21 AM [facility] Neutrophils Absolute 5.87 1.50 - 7.00 K/mcL LAB HEMETOLOGY METHOD 11/05/2024 11:21 AM [facility] Lymphocytes Absolute 0.85(L) 1.00 - 5.00 K/mcL LAB HEMETOLOGY METHOD 11/05/2024 11:21 AM [facility] Monocytes Absolute 1.18(H) 0.20 - 1.00 K/mcL LAB HEMETOLOGY METHOD 11/05/2024 11:21 AM [facility] Eosinophils Absolute 0.03 0.00 - 0.50 K/mcL LAB HEMETOLOGY METHOD 11/05/2024 11:21 AM [facility] Basophils Absolute 0.05 0.00 - 0.20 K/mcL LAB HEMETOLOGY METHOD 11/05/2024 11:21 AM [facility] Immature Granulocytes Absolute 0.03 0.00 - 0.03 K/mcL LAB HEMETOLOGY METHOD 11/05/2024 11:21 AM [facility] Blood Venous blood specimen / Unknown Venipuncture / Unknown 11/05/2024 5:51 AM EST 11/05/2024 9:43 AM EST us Gloria Preston MD LAB BLOOD ORDERABLES Final Resu lt [facility] [address] [place] [address], [place] [phone] * Magnesium (11/05/2024 5:51 AM EST) [facility] Magnesium 2.0 1.9 - 2.6 mg/dL LAB CHEMISTRY METHOD 11/05/2024 11:42 AM EST [facility] Blood Venous blood specimen / Unknown Venipuncture / Unknown 11/05/2024 5:51 AM EST 11/05/2024 9:43 AM EST us Gloria Preston MD LAB BLOOD ORDERABLES Final Resu lt Performing Organization Address City/[facility]/ZIP Co de Phone Number [facility] [address] [place] [address], [place] [phone] * (ABNORMAL) Comprehensive metabolic panel (11/05/2024 5:51 AM EST) [facility] Sodium 133 133 - 145 mmol/L LAB CHEMISTRY METHOD 11/05/2024 11:44 AM [facility] Potassium 4.1 3.5 - 5.5 mmol/L LAB CHEMISTRY METHOD 11/05/2024 11:44 AM [facility] Chloride 99 96 - 110 mmol/L LAB CHEMISTRY METHOD 11/05/2024 11:44 AM [facility] CO2 24 21 - 32 mmol/L LAB CHEMISTRY METHOD 11/05/2024 11:44 AM [facility] Anion Gap 10 3 - 11 LAB CHEMISTRY METHOD 11/05/2024 11:44 AM [facility] Glucose 92 70 - 100 mg/dL LAB CHEMISTRY METHOD 11/05/2024 11:44 AM [facility] BUN 18 5 - 25 mg/dL LAB CHEMISTRY METHOD 11/05/2024 11:44 AM [facility] Creatinine 0.54(L) 0.70 - 1.30 mg/dL LAB CHEMISTRY METHOD 11/05/2024 11:44 AM [facility] eGFR 98 >=60 mL/min/1. 73m2 LAB CHEMISTRY METHOD 11/05/2024 11:44 AM [facility] Comment:Calculation based on the Chronic Kidney Disease Epidemiology Collaboration (CKD-EPI) equation refit without adjustment for race. BUN/Creatinine Ratio 33.3 LAB CHEMISTRY METHOD 11/05/2024 11:44 AM [facility] Calcium 9.0 8.5 - 10.5 mg/dL LAB CHEMISTRY METHOD 11/05/2024 11:44 AM [facility] AST (SGOT) 17 10 - 42 unit/L LAB CHEMISTRY METHOD 11/05/2024 11:44 AM [facility] ALT (SGPT) 19 10 - 60 unit/L LAB CHEMISTRY METHOD 11/05/2024 11:44 AM [facility] Alkaline Phosphatase 83 42 - 121 unit/L LAB CHEMISTRY METHOD 11/05/2024 11:44 AM [facility] Total Protein 6.6 6.0 - 8.0 g/dL LAB CHEMISTRY METHOD 11/05/2024 11:44 AM [facility] Albumin 2.8(L) 3.2 - 5.0 g/dL LAB CHEMISTRY METHOD 11/05/2024 11:44 AM [facility] Total Bilirubin 1.1 0.0 - 1.4 mg/dL LAB CHEMISTRY METHOD 11/05/2024 11:44 AM [facility] Blood Venous blood specimen / Unknown Venipuncture / Unknown 11/05/2024 5:51 AM EST 11/05/2024 9:43 AM EST us Rami A Ashkar MD LAB BLOOD ORDERABLES Final Resu lt [facility] [address] [place] [address], documented in this encounter Visit Diagnoses Diagnosis Encounter for other general examination documented in this encounter Care Teams Managed Services Consultant Relationship Specialty Start Date End Date Gloria Preston MD [address] [place] [phone] PCP - General Hospitalist Medicine 11/05/24 documented as of this encounter
--- OUTSIDE RECORDS SUMMARY | 2025-03-27 12:30 | XMS_ITS | Patient Health Record ---
Author Organization [facility] Address [address] [place] [address] Care Team Providers Care Market Risk Analyst Name Role Phone Robbie Kothari MD Primary Care Provider UnavailRobbie Koo Unavailable [phone] Reason For Referral No Information Medications Medication [...] Problem Status W/U Status Risk Notes Problem [id number] Encounter for screening for malignant neoplasm of colon (Z12.11) Active confirmed Problem [id number] Hx of adenomatous colonic polyps (Z86.010) Active confirmed Problem [id number] Pre-procedural examination (Z01.818) Active confirmed Plan Of Treatment Future Test Test Name Order Date COLONOSCOPY 06/15/2018 Insurance Providers Payer Name Payer Address Payer Phone Subscriber Number Group Number Insured Name Patient Relationship to Insured Coverage Start Date Coverage End Date MEDICARE OF [place] [address] [place] [address] [id number] [id number] ROCHA Self - patient is the insured [facility] Insurance C/[facility] [address] [place] [address] [phone] [id number] [id number] ROCHA Self - patient is the insured Medical (General) History Medical History History ICD Code Denies GA,DM,CVA,Lung disease,renal dise ase Hyperlipidemia Colonoscopy 2002-small tubul ar adenoma removed; colonoscopy in 2008 was negative--just diverticulosis and internal hemorrhoids Surgical History Surgery Date(Month/Year) Left inguinal hernia Skin cancers with skin grafts
--- OUTSIDE RECORDS SUMMARY | 2025-03-27 12:30 | XMS_ITS | Patient Health Record ---
Author Organization [facility] jarett Otis Address [address] [place] [address] Care Team Providers Care Stencil Inspector Name Role Phone Robbie Kothari MD Primary Care Provider UnavailAna Damon Unavailable [phone] Allergies Allergen (clinical drug ingredient) Drug/Non Drug [...] 12/27/2024 Encounters Encounter Location Date Provider Diagnosis [facility] [address] [place] [address] 03/29/2024 Ana Hernandez Tinea unguium B35.1 ; Pain in right toe(s) M79.674 and Pain in left toe(s) M79.[address] [address] 06/28/2024 Ana Perica Tinea unguium B35.1 ; Pain in right toe(s) M79.674 and Pain in left toe(s) M79.[address] [address] 09/27/2024 Ana Perica Tinea unguium B35.1 ; Pain in right toe(s) M79.674 and Pain in left toe(s) M79.[address] [address] 12/27/2024 Ana Perica Tinea unguium B35.1 ; [...] Provider Name:Ana garduno, 03/28/2025 11:15:00 AM, [address] [place], [address], Insurance Providers Payer Name Payer Address Payer Phone Subscriber Number Group Number Insured Name Patient Relationship to Insured Coverage Start Date Coverage End Date [facility] Medicare-[id number] [address] [address] [place] [address] [id number] Freeman King Self - patient is the insured Medical (General) History Medical History History ICD Code Measles Mumps Chicken pox Stroke Surgical History Surgery Date(Month/Year) hernia colonoscopy Hospitalization History Reason Date(Month/Year) [facility]- Stroke 10/2024
== END 2025-03-27 11:22 | disposition home or self-care (01) ==
LOC: HO.LNP 11:21
PROVIDERS: Visit Provider Hospitalist
DX: R91.1 Solitary pulmonary nodule (principal)
CPT/HCPCS: 87070; 87116; 87118; 87205; 87206

== ENCOUNTER 2025-04-12 14:05 | Outpatient (REF) | payer MEDICARE, SELFPAY ==
--- NOTE | ~2025-04-12 | XR_ITS ---
EXAMINATION: XR CHEST CLINICAL INFORMATION: R05.3 - Chronic cough COMPARISON: February 23, 2025. TECHNIQUE: 2 views of the chest were obtained. FINDINGS: Pulmonary reticular nodular pattern. Hyperinflated lungs. Patchy and nodular opacities both lungs confluent in the right lung. No gross pleural effusion or pneumothorax. Cardiomediastinal silhouette size is normal. Mild multilevel thoracolumbar spondylosis. Osteopenia versus osteoporosis. Mild S-shaped curvature of the thoracic spine. XR/XR chest 2V IMPRESSION: Acute on chronic airspace disease with a pulmonary reticular nodular pattern. Please refer to the CT chest dated January 13, 2025. Electronically signed by: Lázaro Ely MD 04/12/2025 02:30 PM EDT
--- OUTSIDE RECORDS SUMMARY | 2025-04-12 14:46 | XMS_ITS | Patient Health Record ---
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 Role Phone Robbie Kothari MD Primary Care Provider Ana Rosales Unavailable [phone] Allergies Allergen (clinical drug ingredient) Drug/Non Drug Allergy documented on EMR Reaction Allergy Type Onset Date Status Latex Latex Unknown Allergy Active Reason For Referral No Information Medications Medication SIG (Take, Route, Frequency, Duration) Notes Start Date End Date Status Atorvastatin Calcium 10 MG TAKE 1 TABLET BY MOUTH EVERY DAY Oral; Duration: 90 Days Active Advil Active Azithromycin 500 MG TAKE 1 TABLET BY RAMIN TH 3 TIMES A WEEK ON THURSDAY,THURSDAY AND FRIDAYS Oral daily; Duration: 90 days Active Lipitor 10 MG 1 tablet Orally Once a day; Duration: 30 day(s) 03/29/2024 Active Immunizations Vaccine Route Administration Date Status Comme nts Influenza Unknown 06/29/2024 Administered Social History Tobacco Use: Social History Observation Description Date Details (start date - stop date) Never Smoker NA - NA Tobacco use other than smoking: Question Answer Notes Are you an other tobacco user? No Tobacco Control (Standard) Question Answer Notes Tobacco use: Nonsmoker Additional Findings: Tobacco non-user Current no nsmoker AUDIT-C (Standard) Question Answer Notes Did you have a drink containing alcohol in the p ast year? No Points 0 Interpretation Negative Problems Problem Type SNOMED Code ICD Code Onset Dates Problem Status W/U Status Risk Notes Problem Atherosclerosis of [place]ie artery of both lower extremities, with unspecified presence of clinical manifestation (I70.203) Active confirmed Q7(A), Q8(2B), Q9(1B,2C) Vital Signs Blood pressure diastolic 58 mm Hg 03/28/2025 Height 6 ft 4 in in 03/28/2025 Blood pressure systolic 114 mm Hg 03/28/2025 Weight 150 lbs 03/28/2025 BMI 18.26 kg/m2 03/28/2025 Encounters Encounter Location Date Provider Diagnosis [address] [address] 06/28/2024 Ana Perica Tinea unguium B35.1 ; Pain in right toe(s) M79.674 and Pain in left toe(s) M79.[address] [address] 09/27/2024 Ana Perica Tinea unguium B35.1 ; Pain in right toe(s) M79.674 and Pain in left toe(s) M79.[address] [address] 12/27/2024 Ana Perica Tinea unguium B35.1 ; Pain in right toe(s) M79.674 and Pain in left toe(s) M79.[address] [address] 03/28/2025 Ana Perica Atherosclerosis of venetie artery of both lower extremities, with unspecified presence of clinical manifestation I70.203 ; Tinea unguium B35.1 ; Pain in right toe(s) M79.674 and Pain in left toe(s) M79.675 Assessments Encounter Date Diagnosis (ICD Code) Assessment Notes Treatment Notes Treatment Clinical Notes Section Notes 06/28/2024 Tinea unguium (ICD-10 - B35.1) 09/27/2024 Tinea unguium (ICD-10 - B35.1) 12/27/2024 Tinea unguium (ICD-10 - B35.1) 03/28/2025 Atherosclerosis of venetie artery of both lower extremities, with unspecified presence of clinical manifestation (ICD-10 - I70.203) Q7(A), Q8(2B), Q9(1B,2C) 12/27/2024 Pain in right toe(s) (ICD-10 - M79.674) 03/28/2025 Tinea unguium (ICD-10 - B35.1) 09/27/2024 Pain in right toe(s) (ICD-10 - M79.674) 06/28/2024 Pain in right toe(s) (ICD-10 - M79.674) 06/28/2024 Pain in left toe(s) (ICD-10 - M79.675) 03/28/2025 Pain in right toe(s) (ICD-10 - M79.674) 12/27/2024 Pain in left toe(s) (ICD-10 - M79.675) 09/27/2024 Pain in left toe(s) (ICD-10 - M79.675) 03/28/2025 Pain in left toe(s) (ICD-10 - M79.675) Plan Of Treatment Next Appt Details Provider Name:Ana garduno, 07/04/2025 09:15:00 AM, [address] [place] [address], [phone], Insurance Providers Payer Name Payer Address Payer Phone Subscriber Number Group Number Insured Name Patient Relationship to Insured Coverage Start Date Coverage End Date [facility] Medicare-[id number] [address] [place] [address] [id number] Freeman King Self - patient is the insured Medical (General) History Medical History History ICD Code Measles Mumps Chicken pox Stroke Surgical History Surgery Date(Month/Year) hernia colonoscopy Hospitalization History Reason Date(Month/Year) [facility]- Stroke 10/2024
--- OUTSIDE RECORDS SUMMARY | 2025-04-12 14:46 | XMS_ITS | Clinical Summary ---
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
--- OUTSIDE RECORDS SUMMARY | 2025-04-12 14:46 | XMS_ITS | Patient Health Record ---
Author Organization Robbie Kothari III, MD Address [address] [place] [address] Care Team Providers Care Quality Assurance Supervisor Trim Name Role Phone Robbie Kothari Primary Care Provider [phone] Allergies Allergen (clinical drug ingredient) Drug/Non Drug Allergy documented on EMR Reaction Allergy Type Onset Date Status No Known Drug Allergy Unknown Drug Allergy Active No Known Food Allergy Unknown Drug Allergy Active Results Component Value Reference Range Notes Hold Lt Blue - Possible Coag Reviewed date:10/30/2024 09:55:19 AM Interpretation: Performing Lab:[facility], [address] [place] [phone] Notes/Report: Hold Lt Blue - Possible Coag SEE NOTE Specimen will be held untested for 4 hours. Call Hematology if testing is desired. Comprehensive Met. Panel Reviewed date:10/30/2024 09:55:19 AM Interpretation: Performing Lab:[facility], [address] [place] [phone] Notes/Report: Sodium 131 135-145 mmol/L Potassium 4.2 [...] Magnesium Reviewed date:10/30/2024 09:55:19 AM Interpretation: Performing Lab:[address] [address] Notes/Report: Magnesium 1.5 1.6-2.6 mg/dL Troponin-I High Sensitivity Reviewed date:10/30/2024 09:55:19 AM Interpretation: Performing Lab:[facility], [address] [place] [phone] Notes/Report: Troponin-I High Sensitivity 3.1 <3.5-35.0 ng/L The Duran high sensitivity Troponin-I results should be used in conjunction with other diagnostic information such as ECG, clinical observations and information, and patient symptoms to aid in the diagnosis of CT. SARS-CoV2/FLU/RSV Reviewed date:10/30/2024 09:55:19 AM Interpretation: Performing Lab:[address] [address] Notes/Report: Influenza A PCR NEGATIVE Negative Influenza [...] by authorized laboratories. Testing performed on the [employer] utilizing real-time RT-PCR. All SARS CoV2 and positive influenza A/B results are reported to [facility]. CT head for stroke Reviewed date:10/30/2024 09:55:19 AM Interpretation: Performing Lab: Notes/Report: [address] [address] [address] Scan Report Signed Patient: Freeman King MR#: [id number] [birth year] : 1940 Acct:[id number] Age/Sex: 84 / M ADM Date: 10/27/24 Loc: HO.ED Attending Dr: Ordering Physician: Alejandrina Mazariegos Date of Service: 10/27/24 Procedure(s): CT head for STROKE Accession Number(s): [id number] cc: Robbie Kothari MD; Alejandrina Mazariegos Report Number: [id number]: Total DLP = 799.00 mGy-cm EXAMINATION: CT [...] lobe. There is resultant mass effect and xwrv-cu-oqiqo midline shift of 3 mm. There is [...] atrium. 3. There is 3 mm of erwt-xr-emeqe midline shift. No impending herniation at this time. This critical result was discussed with Alejandrina Mazariegos at 12:11 PM, on 10/27/2024 via phone call. Electronically signed by: Zohaib Brown MD 10/27/2024 12:14 PM [facility] Dictated By: Zohaib Brown MD Signed By: <Electronically signed by Zohaib Brown MD in OV> 10/27/24 1214 DD/ 1148 TD/TT: 10/27/24 1156 Prefitter: [place] [address] [address] Scan Report Signed Patient: Jeremiah King MR#: [id number] [birth year] : 1940 Acct:[id number] Age/Sex: 84 / M ADM Date: 10/27/24 Loc: HO.ED Attending Dr: Ordering Physician: Alejandrina Mazariegos Date of Service: 10/27/24 Procedure(s): CT hea d for STROKE Accession Number(s): [id number] cc: Robbie Kothari MD; Alejandrina Mazariegos Report [...] There is resultant m ass effect and ttar-sk-naghf midline shift of 3 mm. There is [...] atrium. 3. There is 3 mm of gcuk-ra-kelcr midline shift. No impending herniation at this time. This critical result was discussed with Alejandrina Mazariegos at 12:11 PM, on 10/27/2024 via phone call. Electronically gurpreet d by: Zohaib Brown MD 10/27/2024 12:14 PM [facility] Dictated By: Zohaib Brown MD Signed By: <Electronically signed by Zohaib Brown MD in OV> 10/27/24 1214 DD/ 1148 TD/TT: 10/27/24 1156 Prefitter: CT cervical spine wo con Reviewed date:10/30/2024 09:55:19 AM Interpretation: Performing Lab: Notes/Report: [address] [address] [address] Scan Report Signed Patient: Freeman King MR#: [id number] [birth year] : 1940 Acct:[id number] Age/Sex: 84 / M ADM Date: 10/27/24 Loc: HO.ED Attending Dr: Ordering Physician: Alejandrina Mazariegos Date of Service: 10/27/24 Procedure(s): CT cervical spine wo IV con Accession Number(s): [id number] cc: Robbie Kothari MD; Alejandrina Mazariegos Report Number: [id number]: Total DLP = 376.00 mGy-cm EXAMINATION: CT [...] Zohaib Brown MD 10/27/2024 02:23 PM [facility] Dictated By: Zohaib Brown MD Signed By: <Electronically signed by Zohaib Brown MD in OV> 10/27/24 1423 DD/ 1212 TD/TT: 10/27/24 1334 Prefitter: [place] [address] CT Scan Report Signed Patient: Jeremiah King MR#: [id number] 30 : 1940 Acct:[id number] Age/Sex: 84 / M ADM Date: 10/27/24 Loc: .ED Attending Dr: Ordering Physician: Alejandrina Mazariegos Date of Service: 10/27/24 Procedure(s): CT cer vical spine wo IV con Accession Number(s): [id number] cc: Robbie Kothari MD; Alejandrina Mazariegos Report [...] Zohaib Brown MD 10/27/2024 02:23 PM [facility] Dictated By: Zohaib Brown MD Signed By: <Electronically signed by Zohaib Brown MD in OV> 10/27/24 1423 DD/ 1212 TD/TT: 10/27/24 1334 Prefitter: XR chest 1V Reviewed date:10/30/2024 09:55:19 AM Interpretation: Performing Lab: Notes/Report: [address] [address] XRay Report Signed Patient: Freeman King MR#: [id number] [birth year] : 1940 Acct:[id number] Age/Sex: 84 / M ADM Date: 10/27/24 Loc: HO.ED Attending Dr: Ordering Physician: Alejandrina Mazariegos Date of Service: 10/27/24 Procedure(s): XR chest 1V Accession Number(s): [id number] cc: Robbie Kothari MD; Alejandrina Mazariegos EXAMINATION: [...] Zohaib Brown MD 10/27/2024 01:41 PM [facility] Dictated By: Zohaib Brown MD Signed By: <Electronically signed by Zohaib Brown MD in OV> 10/27/24 1341 DD/ 1127 TD/TT: 10/27/24 1328 Prefitter: [address] [address] XRay Report Signed Patient: Jeremiah King MR#: [id number] 30 : 1940 Acct:[id number] Age/Sex: 84 / M ADM Date: 10/27/24 Loc: HO.ED Attending Dr: Ordering Physician: Alejandrina Mazariegos Date of Service: 10/27/24 Procedure(s): XR chest 1V Accession Number(s): [id number] cc: Robbie Kothari MD; Alejandrina Mazariegos EXAMINATION: [...] Zohaib Brown MD 10/27/2024 01:41 PM [facility] Dictated By: Zohaib Brown MD Signed By: <Electronically signed by Zohaib Brown MD in OV> 10/27/24 1341 DD/ 1127 TD/TT: 10/27/24 1328 Prefitter: XR chest 2V Reviewed date:12/16/2024 03:30:40 PM Interpretation: Performing Lab: Notes/Report: [address] [address] XRay Report Signed Patient: Freeman King MR#: [id number] 30 : 1940 Acct:[id number] Age/Sex: 84 / M ADM Date: 12/02/24 Loc: HO.XRAY Attending Dr: Robbie Kothari MD Ordering Physician: Denilson Minor MD Date of Service: 12/02/24 Procedure(s): XR chest 2V Accession Number(s): [id number] cc: Robbie Kothari MD; Denilson Minor MD [...] 12/02/24 1150 DD/ 1042 TD/TT: 12/02/24 1052 Prefitter: [place] [address] XRay Report Signed Patient: Jeremiah King MR#: [id number] [birth year] : 1940 Acct:[id number] Age/Sex: 84 / M ADM Date: 12/02/24 Loc: JILLIAN Attending Dr: Robbie Kothari MD Ordering Physician: Denilson Minor MD Date of Service: 12/02/24 Procedure(s): XR chest 2V Accession Number(s): [id number] cc: Robbie Kothari MD; Denilson Minor MD [...] 12/02/24 1150 DD/ 1042 TD/TT: 12/02/24 1052 Prefitter: Complete Blood Count Auto Di ff Reviewed date:12/16/2024 03:30:40 PM Interpretation: Performing Lab:[facility], [address] [place] [phone] Notes/Report: White Blood Count 5.2 4.8-10.8 X10*3/uL [...] Panel Reviewed date:12/16/2024 03:30:40 PM Interpretation: Performing Lab:[address] [address] Notes/Report: Sodium 136 135-145 mmol/L Potassium 3.9 [...] Magnesium Reviewed date:12/16/2024 03:30:40 PM Interpretation: Performing Lab:[facility], [address] [place] [phone] Notes/Report: Magnesium 1.8 1.6-2.6 mg/dL XR chest 2V Reviewed date:12/16/2024 03:30:40 PM Interpretation: Performing Lab: Notes/Report: [address] [address] XRay Report Signed Patient: Freeman King MR#: [id number] [birth year] : 1940 Acct:[id number] Age/Sex: 84 / M ADM Date: 12/16/24 Loc: JILLIAN Attending Dr: Denilson Minor MD Ordering Physician: Denilson Minor MD Date of Service: 12/16/24 Procedure(s): XR chest 2V Accession Number(s): [id number] cc: Robbie Kothari MD; Denilson Minor MD [...] 12/16/24 1138 DD/ 1048 TD/TT: 12/16/24 1110 Prefitter: [place] [address] XRay Report Signed Patient: Jeremiah King MR#: [id number] [birth year] : 1940 Acct:[id number] Age/Sex: 84 / M ADM Date: 12/16/24 Loc: .XRAY Attending Dr: Denilson Minor MD Ordering Physician: Denilson Minor MD Date of Service: 12/16/24 Procedure(s): XR chest 2V Accession Number(s): [id number] cc: Robbie Kothari MD; Denilson Minor MD [...] 12/16/24 1138 DD/ 1048 TD/TT: 12/16/24 1110 Prefitter: Complete Blood Count Auto Di ff Reviewed date:12/30/2024 08:37:25 PM Interpretation: Performing Lab:[facility], [address] [place] [phone] Notes/Report: White Blood Count 6.5 4.8-10.8 X10*3/uL [...] NRBC Abs Auto 0.000 0.0-0.012 X10*3/uL Comprehensive Berger. Panel Fa Reviewed date:12/30/2024 08:37:25 PM Interpretation: Performing Lab:[facility], [address] [place] [phone] Notes/Report: Sodium 135 135-145 mmol/L Potassium 4.2 [...] Panel Reviewed date:12/30/2024 08:37:25 PM Interpretation: Performing Lab:[facility], [address] [place] [phone] Notes/Report: Triglycerides 84 <150 mg/dL Desirable Triglyceride: [...] Antigen Reviewed date:12/30/2024 08:37:25 PM Interpretation: Performing Lab:[facility], [address] [place] [phone] Notes/Report: Prostate Specific Antigen 2.95 <0.05-4.0 ng/mL PSA methodology: Duran Alinity i Chemiluminescent Microparticle Immunoassay (CMIA) Complete Blood Count Auto Di ff Reviewed date:12/30/2024 08:37:25 PM Interpretation: Performing Lab:[facility], [address] [place] [phone] Notes/Report: White Blood Count 9.1 4.8-10.8 X10*3/uL [...] te Reviewed date:12/30/2024 08:37:25 PM Interpretation: Performing Lab:[facility], [address] [place] [phone] Notes/Report: Erythrocyte Sedimentation Rate 60 0-15 MM/HR Patients with polycythemia and many hemoglobin abnormalities may have depressed sed rates whereas patients with anemia may have elevated sed rates. Partial Thromboplastin Time Reviewed date:12/30/2024 08:37:25 PM Interpretation: Performing Lab:[facility], [address] [place] [phone] Notes/Report: Partial Thromboplastin Time 33.0 26.0-36.8 SEC For information regarding the monitoring of direct thrombin inhibitors, please refer to Pharmacy. Comprehensive Met. Panel Reviewed date:12/30/2024 08:37:25 PM Interpretation: Performing Lab:[facility], [address] [place] [phone] Notes/Report: Sodium 132 135-145 mmol/L Potassium 4.9 [...] Acid Reviewed date:12/30/2024 08:37:25 PM Interpretation: Performing Lab:[facility], [address] [place] [phone] Notes/Report: Lactic Acid 1.0 0.5-2.0 mmol/L Uric Acid Reviewed date:12/30/2024 08:37:25 PM Interpretation: Performing Lab:[facility], [address] [place] [phone] Notes/Report: Uric Acid 4.1 3.4-7.0 mg/dL Magnesium Reviewed date:12/30/2024 08:37:25 PM Interpretation: Performing Lab:[facility], [address] [place] [phone] Notes/Report: Magnesium 1.7 1.6-2.6 mg/dL Troponin-I High Sensitivity Reviewed date:12/30/2024 08:37:25 PM Interpretation: Performing Lab:[facility], [address] [place] [phone] Notes/Report: Troponin-I High Sensitivity 3.4 <3.5-35.0 ng/L The Duran high sensitivity Troponin-I results should be used in conjunction with other diagnostic information such as ECG, clinical observations and information, and patient symptoms to aid in the diagnosis of CT. C Reactive Protein Reviewed date:12/30/2024 08:37:25 PM Interpretation: Performing Lab:[facility], [address] [place] [phone] Notes/Report: C Reactive Protein 4.85 < or = 0.50 mg/dL B Type Natriuretic Peptide Reviewed date:12/30/2024 08:37:25 PM Interpretation: Performing Lab:[facility], [address] [place] [phone] Notes/Report: B Type Natriuretic Peptide 82 <100 pg/mL Lipase Reviewed date:12/30/2024 08:37:25 PM Interpretation: Performing Lab:[facility], [address] [place] [phone] Notes/Report: Lipase 43 8-78 U/L UA CC w/rflx Micro + Cult Reviewed date:12/30/2024 08:37:25 PM Interpretation: Performing Lab:[facility], [address] [place] [phone] Notes/Report: Urine, Clean Catch Color Urine Yellow Appearance Urine Clear PH 7.5 5.0-9.0 Glucose Urine UA Negative Negative mg/dL Urine Blood Negative Negative Specific Bethany - Urine >= 1.030 1.005-1.025 Urine Protein Negative Neg-Trace mg/dL Urine Ketones Negative Negative mg/dL Nitrite Urine Negative Negative Leukocyte Esterase Urine Negative Negative SARS-CoV2/FLU/RSV Reviewed date:12/30/2024 08:37:25 PM Interpretation: Performing Lab:[address] [address] Notes/Report: Influenza A PCR NEGATIVE Negative Influenza [...] by authorized laboratories. Testing performed on the [employer] Gene[employer]pert utilizing real-time RT-PCR. All SARS CoV2 and positive influenza A/B results are reported to [facility]. Blood Culture (First) Reviewed date:01/14/2025 08:40:47 PM Interpretation: Performing Lab:[facility], [address] [place] [phone] Notes/Report: Blood Culture (First) No growth after 5 days. Blood Culture (Second) Reviewed date:01/14/2025 08:40:47 PM Interpretation: Performing Lab:[address] [address] Notes/Report: Blood Culture (Second) No growth after [address] angio head neck Reviewed date:12/30/2024 08:37:25 PM Interpretation: Performing Lab: Notes/Report: [address] [address] [address] Scan Report Signed Patient: Freeman King MR#: [id number] 30 : 1940 Acct:[id number] Age/Sex: 84 / M ADM Date: 12/30/24 Loc: HO.ED Attending Dr: Ordering Physician: Rahul Zamora MD Date of Service: 12/30/24 Procedure(s): CT angio head neck Accession Number(s): [id number] cc: Robbie Kothari MD; Rahul Zamora MD Report Number: [id number]: Total DLP = 1652.00 mGy-cm EXAMINATION: CTA [...] intimal flap. Superior cerebellar arteries are patent. health program specialist: Right P1 segment: Hypoplastic/atretic. No focal stenosis. [...] 12/30/24 1225 DD/ 1133 TD/TT: 12/30/24 1155 Prefitter: [address] [address] [address] Scan Report Signed Patient: Jeremiah King MR#: [id number] [birth year] : 1940 Acct:[id number] Age/Sex: 84 / M ADM Date: 12/30/24 Loc: HO.ED Attending Dr: Ordering Physician: Rahul Zamora MD Date of Service: 12/30/24 Procedure(s): CT ang io head neck Accession Number(s): [id number] cc: Robbie Kothari MD; Rahul Zamora MD [...] intimal flap. Superior cerebellar arteries are patent. health program specialist: Right P1 segment: Hypoplastic/atretic. No focal stenosis. [...] 12/30/24 1225 DD/ 1133 TD/TT: 12/30/24 1155 Prefitter: XR wrist RT 2V Reviewed date:12/30/2024 08:37:25 PM Interpretation: Performing Lab: Notes/Report: [address] [address] XRay Report Signed Patient: Fremean King MR#: [id number] [birth year] : 1940 Acct:[id number] Age/Sex: 84 / M ADM Date: 12/30/24 Loc: HO.ED Attending Dr: Ordering Physician: Rahul Zamora MD Date of Service: 12/30/24 Procedure(s): XR wrist RT 2V Accession Number(s): [id number] cc: Robbie Kothari MD; Rahul Zamora MD [...] acute fracture or dislocation. Electronically signed by: Lzáaro Ely MD 12/30/2024 01:00 PM EDT RP Dictated By: Lázaro Elias MD Signed By: <Electronically signed by Lázaro Monique MD in OV> 12/30/24 1300 DD/ 1243 TD/TT: 12/30/24 1255 Prefitter: [address] [address] XRay Report Signed Patient: Jeremiah King MR#: [id number] [birth year] : 1940 Acct:[id number] Age/Sex: 84 / M ADM Date: 12/30/24 Loc: HO.ED Attending Dr: Ordering Physician: Rahul Zamora MD Date of Service: 12/30/24 Procedure(s): XR wri st RT 2V Accession Number(s): [id number] cc: Robbie Kothari MD; Rahul Zamora MD [...] 12/30/24 1300 DD/ 1243 TD/TT: 12/30/24 1255 Prefitter: XR chest 1V Reviewed date:12/30/2024 08:37:25 PM Interpretation: Performing Lab: Notes/Report: [address] [address] XRay Report Signed Patient: Freeman King MR#: [id number] [birth year] : 1940 Acct:[id number] Age/Sex: 84 / M ADM Date: 12/30/24 Loc: .ED Attending Dr: Ordering Physician: Rahul Zamora MD Date of Service: 12/30/24 Procedure(s): XR chest 1V Accession Number(s): [id number] cc: Robbie Kothari MD; Rahul Zamora MD [...] 12/30/24 1210 DD/ 1031 TD/TT: 12/30/24 1149 Prefitter: [place] [address] XRay Report Signed Patient: Jeremiah King MR#: [id number] [birth year] : 1940 Acct:[id number] Age/Sex: 84 / M ADM Date: 12/30/24 Loc: .ED Attending Dr: Ordering Physician: Rahul Zamora MD Date of Service: 12/30/24 Procedure(s): XR chest 1V Accession Number(s): [id number] cc: Robbie Kothari MD; Rahul Zamora MD [...] 12/30/24 1210 DD/ 1031 TD/TT: 12/30/24 1149 Prefitter: XR hand RT min 3V Reviewed date:12/30/2024 08:37:25 PM Interpretation: Performing Lab: Notes/Report: [address] [address] XRay Report Signed Patient: Freeman King MR#: [id number] [birth year] : 1940 Acct:[id number] Age/Sex: 84 / M ADM Date: 12/30/24 Loc: HO.ED Attending Dr: Ordering Physician: Rahul Zamora MD Date of Service: 12/30/24 Procedure(s): XR hand RT min 3V Accession Number(s): [id number] cc: Robbie Kothari MD; Rahul Zamora MD [...] 12/30/24 1301 DD/ 1243 TD/TT: 12/30/24 1255 Prefitter: [address] [address] XRay Report Signed Patient: Jeremiah King MR#: [id number] [birth year] : 1940 Acct:[id number] Age/Sex: 84 / M ADM Date: 12/30/24 Loc: HO.ED Attending Dr: Ordering Physician: Rahul Zamora MD Date of Service: 12/30/24 Procedure(s): XR camacho d RT min 3V Accession Number(s): [id number] cc: Robbie Kothari MD; Rahul Zamora MD [...] 12/30/24 1301 DD/ 1243 TD/TT: 12/30/24 1255 Prefitter: Renae Coates Hematolo gy Reviewed date:01/01/2025 10:45:53 AM Interpretation: Performing Lab:[facility], [address] [place] [phone] Notes/Report: Hold Lav - Possible Hematology SEE NOTE Specimen will be held untested for 8 hours. Call Hematology if testing is desired. Basic Metabolic Panel Reviewed date:01/01/2025 10:45:53 AM Interpretation: Performing Lab:[facility], [address] [place] [phone] Notes/Report: Sodium 135 135-145 mmol/L Potassium 4.2 [...] ff Reviewed date:01/14/2025 08:40:47 PM Interpretation: Performing Lab:[facility], [address] [place] [phone] Notes/Report: White Blood Count 7.5 4.8-10.8 X10*3/uL [...] Coag Reviewed date:01/14/2025 08:40:47 PM Interpretation: Performing Lab:[facility], [address] [place] [phone] Notes/Report: Hold Lt Blue - Possible Coag SEE NOTE Specimen will be held untested for 4 hours. Call Hematology if testing is desired. Liver Panel Reviewed date:01/14/2025 08:40:47 PM Interpretation: Performing Lab:[facility], [address] [place] [phone] Notes/Report: Bilirubin Total 1.0 0.0-1.0 mg/dL Bilirubin Direct 0.3 0.0-0.5 mg/dL Aspartate Amino Transferase 28 5-37 U/L Slight Hemolysis.Interpret result with caution. Alanine Aminotransferase 12 0-40 U/L Total Protein 7.4 6.5-8.0 g/dL Albumin Level 3.6 3.5-5.0 g/dL Alkaline Phosphatase 70 39-117 U/L Basic Metabolic Panel Reviewed date:01/14/2025 08:40:47 PM Interpretation: Performing Lab:[facility], [address] [place] [phone] Notes/Report: Sodium 130 135-145 mmol/L Potassium 4.4 [...] Acid Reviewed date:01/14/2025 08:40:47 PM Interpretation: Performing Lab:[facility], [address] [place] [phone] Notes/Report: Lactic Acid 0.8 0.5-2.0 mmol/L Magnesium Reviewed date:01/14/2025 08:40:47 PM Interpretation: Performing Lab:[address] [address] Notes/Report: Magnesium 1.8 1.6-2.6 mg/dL Troponin-I High Sensitivity Reviewed date:01/14/2025 08:40:47 PM Interpretation: Performing Lab:[address] [address] Notes/Report: Troponin-I High Sensitivity 3.3 <3.5-35.0 ng/L The Duran high sensitivity Troponin-I results should be used in conjunction with other diagnostic information such as ECG, clinical observations and information, and patient symptoms to aid in the diagnosis of CT. C Reactive Protein Reviewed date:01/14/2025 08:40:47 PM Interpretation: Performing Lab:[address] [address] Notes/Report: C Reactive Protein 13.61 < or = 0.50 mg/dL B Type Natriuretic Peptide Reviewed date:01/14/2025 08:40:47 PM Interpretation: Performing Lab:[facility], [address] [place] [phone] Notes/Report: B Type Natriuretic Peptide 53 <100 pg/mL Procalcitonin Reviewed date:01/14/2025 08:40:47 PM Interpretation: Performing Lab:[facility], [address] [place] [phone] Notes/Report: Procalcitonin 0.04 Procalcitonin (PCT) Reference Range: [...] results from different laboratories and methodologies. References: [employer]/Society of Critical Care [...] 510(k) substantial equivalence determination decision summary for [facility]. http://www.accessda ta.fda.fov/cdrh_doc s/reviews/T137056.p df. Published September 2004. Accessed February 2017. Gram stain Reviewed date:01/17/2025 05:36:47 AM Interpretation: Performing Lab:[facility], [address] [place] [phone] Notes/Report: Gram stain Gram stain results: Gram stain 4+ polys Gram stain 1+ epithelial cells Gram stain 4+ red blood cells Gram stain 1+ Gram-positive cocci UA CC w/rflx Micro + Cult Reviewed date:01/14/2025 08:40:47 PM Interpretation: Performing Lab:[address] [address] Notes/Report: Urine, Catheterized Color Urine Yellow Appearance Urine Clear PH 6.0 5.0-9.0 Glucose Urine UA Negative Negative mg/dL Urine Blood Negative Negative Specific [place] - Urine 1.020 1.005-1.025 Urine Protein Negative Neg-Trace mg/dL Urine Ketones Negative Negative mg/dL Nitrite Urine Negative Negative Leukocyte Esterase Urine Negative Negative SARS-CoV2/FLU/RSV Reviewed date:01/14/2025 08:40:47 PM Interpretation: Performing Lab:[address] [address] Notes/Report: Influenza A PCR NEGATIVE Negative Influenza [...] by authorized laboratories. Testing performed on the [employer] GeneXpert utilizing real-time RT-PCR. All SARS CoV2 and positive influenza A/B results are reported to [facility]. Blood Culture (First) Reviewed date:02/12/2025 08:15:10 PM Interpretation: Performing Lab:[facility], [address] [place] [phone] Notes/Report: Blood Culture (First) No growth after 5 days. Blood Culture (Second) Reviewed date:02/12/2025 08:15:10 PM Interpretation: Performing Lab:[address] [address] Notes/Report: Blood Culture (Second) No growth after 5 days. Sputum Culture Reviewed date:01/17/2025 05:36:47 AM Interpretation: Performing Lab:[facility], [address] [place] [phone] Notes/Report: Sputum Culture BAP Sputum Culture 2+ Mixed respiratory ramon. CT chest wo con Reviewed date:01/14/2025 08:40:47 PM Interpretation: Performing Lab: Notes/Report: [address] [address] [address] Scan Report Signed Patient: Freeman King MR#: [id number] 30 : 1940 Acct:[id number] Age/Sex: 84 / M ADM Date: 01/13/25 Loc: .S3 358-[address]: Tommy Rodriguez MD Ordering Physician: Linette Brown Date of Service: 01/13/25 Procedure(s): CT chest wo IV con Accession Number(s): [id number] cc: Linette Brown; Robbie Kothari MD Report Number: [id number]: Total DLP = 336.00 mGy-cm CLINICAL HISTORY: Pt with hemoptysis, ?RUL and LLL pneumonia CT chest without contrast Comparison: CT/REG/CA/SR - CT CHEST WO IV CON - [...] OV> 01/13/25 174 DD/ 45 TD/TT: 01/13/251745 Prefitter: [address] [address] [address] Scan Report Signed Patient: Jeremiah King MR#: [id number] [birth year] : 1940 Acct:[id number] Age/Sex: 84 / M ADM Date: 01/13/25 Loc: HO.S3 358-[address]: Tommy Rodriguez MD Ordering Physician: Linette Brown Date of Service: 01/13/25 Procedure(s): CT [address] wo IV con Accession Number(s): [id number] cc: Linette Brown; Robbie Kothari MD Report [...] OV> 01/13/251746 DD/ 1746 TD/TT: 01/13/25 174 Prefitter: CT head/brain wo con Reviewed date:01/14/2025 08:40:47 PM Interpretation: Performing Lab: Notes/Report: [address] [address] [address] Scan Report Signed Patient: Freeman King MR#: [id number] [birth year] : 1940 Acct:[id number] Age/Sex: 84 / M ADM Date: 01/13/25 Loc: HO.ED Attending Dr: Ordering Physician: Taras Spencer MD Date of Service: 01/13/25 Procedure(s): CT head/brain wo IV con Accession Number(s): [id number] cc: Robbie Kothari MD; Taras Spencer MD Report Number: [id number]: Total DLP = 726.00 mGy-cm EXAMINATION: CT [...] 01/13/25 1235 DD/ 1215 TD/TT: 01/13/25 1226 Prefitter: [address] [address] [address] Scan Report Signed Patient: Jeremiah King MR#: [id number] 30 : 1940 Acct:[id number] Age/Sex: 84 / M ADM Date: 01/13/25 Loc: HO.ED Attending Dr: Ordering Physician: Taras Spencer MD Date of Service: 01/13/25 Procedure(s): CT head/brain wo IV con Accession Number(s): [id number] cc: Robbie Kothari MD; Taras Spencer MD [...] 01/13/25 1235 DD/ 1215 TD/TT: 01/13/25 1226 Prefitter: XR chest 1V Reviewed date:01/14/2025 08:40:47 PM Interpretation: Performing Lab: Notes/Report: [address] [address] XRay Report Signed Patient: Freeman King MR#: [id number] [birth year] : 1940 Acct:[id number] Age/Sex: 84 / M ADM Date: 01/13/25 Loc: HO.ED Attending Dr: Ordering Physician: Taras Spencer MD Date of Service: 01/13/25 Procedure(s): XR chest 1V Accession Number(s): [id number] cc: Robbie Kothari MD; Taras Spencer MD [...] Follow-up is recommended. Electronically signed by: Robbie Roslaes MD 01/13/2025 12:28 PM EDT RP Dictated By: Robbie Rosales MD Signed By: <Electronically signed by Robbie Rosales MD in OV> 01/13/25 1228 DD/ 1222 TD/TT: 01/13/25 1222 Prefitter: [address] [address] XRay Report Signed Patient: Jeremiah King MR#: [id number] [birth year] : 1940 Acct:[id number] Age/Sex: 84 / M ADM Date: 01/13/25 Loc: HO.ED Attending Dr: Ordering Physician: Taras Spencer MD Date of Service: 01/13/25 Procedure(s): XR chest 1V Accession Number(s): [id number] cc: Robbie Kothari MD; Taras Spencer MD [...] 01/13/25 1228 DD/ 1222 TD/TT: 01/13/25 1222 Prefitter: Hold Lav - Possible Hematolo gy Reviewed date:01/14/2025 08:40:46 PM Interpretation: Performing Lab:[facility], [address] [place] [address] Notes/Report: Hold Lav - Possible Hematology SEE NOTE Specimen will be held untested for 8 hours. Call Hematology if testing is desired. Basic Metabolic Panel Reviewed date:01/14/2025 08:40:47 PM Interpretation: Performing Lab:[facility], [address] [place] [address] Notes/Report: Sodium 130 135-145 mmol/L Potassium 4.0 [...] Urine Reviewed date:01/14/2025 08:40:47 PM Interpretation: Performing Lab:[address] [address] Notes/Report: Osmolality Urine 800 760-7609 mosm/kg Sodium Urine Random Reviewed date:01/14/2025 08:40:47 PM Interpretation: Performing Lab:[address] [address] Notes/Report: Sodium Urine Random 93.0 Vancomycin Random Reviewed date:01/14/2025 08:40:47 PM Interpretation: Performing Lab:[address] [address] Notes/Report: Vancomycin Random 9.3 15-20 mcg/mL Complete Blood Count Auto Di ff Reviewed date:01/15/2025 06:45:37 AM Interpretation: Performing Lab:[address] [address] Notes/Report: White Blood Count 5.0 4.8-10.8 X10*3/uL [...] Hematocrit Reviewed date:01/17/2025 05:36:47 AM Interpretation: Performing Lab:[address] [address] Notes/Report: Hemoglobin 11.9 14.0-18.0 g/dl Hematocrit 33.2 42.0-52.0 % Basic Metabolic Panel Reviewed date:01/15/2025 06:45:37 AM Interpretation: Performing Lab:[address] [address] Notes/Report: Sodium 135 135-145 mmol/L Potassium 3.8 [...] gy Reviewed date:01/17/2025 05:36:47 AM Interpretation: Performing Lab:[address] [address] Notes/Report: Hold Lav - Possible Hematology SEE NOTE Specimen will be held untested for 8 hours. Call Hematology if testing is desired. Creatinine Reviewed date:01/17/2025 05:36:47 AM Interpretation: Performing Lab:[facility], [address] [place] [address] Notes/Report: Creatinine 0.77 0.5-1.4 mg/dL Creatinine Clr [...] ff Reviewed date:02/26/2025 07:54:27 AM Interpretation: Performing Lab:[address] [address] Notes/Report: White Blood Count 6.6 4.8-10.8 X10*3/uL [...] NRBC Abs Auto 0.000 0.0-0.012 X10*3/uL Comprehensive Berger. Panel Fa st Reviewed date:02/26/2025 07:54:27 AM Interpretation: Performing Lab:[facility], [address] [place] [address] Notes/Report: Sodium 135 135-145 mmol/L Potassium 4.3 [...] Panel Reviewed date:02/26/2025 07:54:27 AM Interpretation: Performing Lab:[facility], [address] [place] [address] Notes/Report: Triglycerides 58 <150 mg/dL Desirable Triglyceride: [...] date:02/26/2025 07:54:27 AM Interpretation: Performing Lab: Notes/Report: [address] [address] XRay Report Signed Patient: Freeman King MR#: [id number] [birth year] : 1940 Acct:[id number] Age/Sex: 85 / M ADM Date: 02/23/25 Loc: HO.KIRTIAY Attending Dr: Denilson Minor MD Ordering Physician: Denilson Minor MD Date of Service: 02/23/25 Procedure(s): XR chest 2V Accession Number(s): [id number] cc: Robbie Kothari MD; Denilson Minor MD [...] OV> 02/23/25 0853 DD/ 6 TD/TT: 02/23/25835 Prefitter: [place] [address] XRay Report Signed Patient: Jeremiah King MR#: [id number] [birth year] : 1940 Acct:[id number] Age/Sex: 85 / M ADM Date: 02/23/25 Loc: HO.XRAY Attending Dr: Denilson Minor MD Ordering Physician: Denilson Minor MD Date of Service: 02/23/25 Procedure(s): XR chest 2V Accession Number(s): [id number] cc: Robbie Kothari MD; Denilson Minor MD [...] 02/23/25 0853 DD/ 6 TD/TT: 02/23/25 0836 Prefitter: XR chest 2V (Not yet reviewe d by provider) Interpretation: Performing Lab: Notes/Report: [address] [address] XRay Report Signed Patient: Freeman King MR#: [id number] 30 : 1940 Acct:[id number] Age/Sex: 85 / M ADM Date: 04/12/25 Loc: JILLIAN Attending Dr: Denilson Minor MD Ordering Physician: Denilson Minor MD Date of Service: 04/12/25 Procedure(s): XR chest 2V Accession Number(s): [id number] cc: Robbie Kothari MD; Denilson Minor MD EXAMINATION: XR CHEST CLINICAL INFORMATION: R05.3 - Chronic cough COMPARISON: February 23, 2025. TECHNIQUE: 2 views of the chest were obtained. FINDINGS: Pulmonary reticular nodular pattern. Hyperinflated lungs. Patchy and nodular opacities both lungs confluent in the right lung. No gross pleural effusion or pneumothorax. Cardiomediastinal silhouette size is normal. Mild multilevel thoracolumbar spondylosis. Osteopenia versus osteoporosis. Mild S-shaped curvature of the thoracic spine. XR/XR chest 2V IMPRESSION: Acute on chronic airspace disease with a pulmonary reticular nodular pattern. Please refer to the CT chest dated January 13, 2025. Electronically signed by: Lázaro Ely MD 04/12/2025 02:30 PM EDT Dictated By: Lázaro Elias MD Signed By: <Electronically signed by Lázaro Monique MD in OV> 04/12/25 1430 DD/ 1411 TD/TT: 04/12/25 1426 Prefitter: [address] [address] XRay Report Signed Patient: Jeremiah King MR#: [id number] [birth year] : 1940 Acct:[id number] Age/Sex: 85 / M ADM Date: 04/12/25 Loc: JILLIAN Attending Dr: Denilson Minor MD Ordering Physician: Denilson Minor MD Date of Service: 04/12/25 Procedure(s): XR chest 2V Accession Number(s): [id number] cc: Robbie Kothari MD; Denilson Minor MD EXAMINATION: XR CHEST CLINICAL INFORMATION: R05.3 - Chronic cough COMPARISON: February 23, 2025. TECHNIQUE: 2 views of the chest were obtained. FINDINGS: Pulmonary reticular nodular pattern. Hyperinflated lungs. Patchy and nodular opacities both lungs confluent in the right lung. No gross pleural eff usion or pneumothorax. Cardiomediastinal silhouette size is normal. Mild multilevel thoracolumbar spondylosis. Osteopenia versus osteoporosis. Mild S-shaped curvat ure of the thoracic spine. X R/XR chest 2V IMPRESSION: Acute on chronic air space disease with a pulmonary reticular nodular pattern. Please refe r to the CT chest dated January 13, 2025. Electronically gurpreet d by: Lázaro Ely MD 04/12/2025 02:30 PM EDT RP Dictated By: Lázaro Garcia MD Signed By: <Electronically signed by Lázaro Monique MD in OV> 04/12/25 1430 DD/ 1411 TD/TT: 04/12/25 1426 Prefitter: Reason For Referral Reason Urgent Referral Requ est Evaluate and Treat ? Catheter Can not tolerate tamsulosin Diagnosis 1 Benign prostatic hyp erplasia with lower urinary tract symptoms (N40.1) Diagnosis 2 Nocturia (R35.1) Referral Organization Robbie Kothari III, MD Referring Provider First Name Robbie Referring Provider Last Name Saniya Referring Provider Speciality Internal M edicine Referred Provider [facility], Urology Referred Provider Specialty Urology General [...] Referring Provider Last Name Kothari Referring Provider Speciality Internal edicine Referred Organization [facility] nter Referred Provider [facility], Core Physical Therapy Referred Address [address] [place] [address],[place], [place],[id number], Referred Provider Specialty Physical The rapist General Notes D, Sarika 03/09/2025 02:30:36 PM > referral and progress note faxed. 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) Referral Organization Robbie Kothari III, MD Referring Provider First Name Robbie Referring Provider Last Name Kothari Referring Provider [facility] Internal edicine Referred Provider [facility], Speech and Hearing Referred Provider Specialty Unknown General Notes D, Sarika 03/09/2025 02:27:01 PM > Referral and last progress not faxed Referral Priority Routine Referral Appointment Date 03/15/2025 Medications Medication SIG (Take, Route, Frequency, Duration) Notes Start Date End Date Status Hydrocortisone 1 % 1 application [employer] Operator ally Twice a day 01/27/2025 Active Albuterol Sulfate (2.5 MG/3ML) 0.083% Inhalation Active Nystatin 563429 UNIT/GM APPLY TOPICALLY 3 TIMES A DAY [...] Problem Status W/U Status Risk Notes Problem 6339459 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 Problem Hyperlipidemia (23836545) Hyperlipidemia (E78.5) Active confirmed Distal cholesterol is stable but his triglycerides are elevated. He will continue on his current diet until he has fully recovered from the stroke. He will continue on his medications. Problem 96856358 Hyponatremia (E87.1) Active confirmed After admission to [facility] he required hypertonic saline and then 1 g of sodium chloride tablets 3 times a day to restore his potassium to normal. He was discharged without this. Blood work with a sodium level will be checked frequently. Problem 149502246 Underweight (R63.6) Active confirmed His appetite is better and he is feeling stronger. His body mass index is now 19. We continue our discussions on diet and nutrition. 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 A recent chest x-ray shows worsening airspace disease in right lung. He is due to see pulmonary within the next week. He has a cough which is nonproductive and is afebrile. n. Problem 40150221 Orthostatic hypotension (I95.1) Active confirmed He developed th is at home and was brought to the [facility] emergency of December 30, 2024 and admitted overnight for hydration. We have discussed aggressive hydration and adequate nutrition. Problem 459496872 Rosacea (L71.9) Active confirmed He was given metronidazole gel. He was instructed in its use. Problem 483202184 Pulmonary nodule (R91.1) Active confirmed This is being observed. No change in his symptoms have been noted. Problem 517200811 Adenoma of ascending colon (D12.2) Active confirmed He will call he r gastroenterologis t to see if additional colonoscopies will be recommended. Problem 336328218 Hypertrophy of prostate without urinary obstruction and other lower urinary tract symptoms (LUTS) (N40.0) Active confirmed He has been usi ng lifestyle modification and now experiences nocturia only once a night. Problem 84210623 Abdominal hernia without obstruction and without gangrene, recurrence not specified, unspecified hernia type (K46.9) Active confirmed The hernia is n ow asymptomatic and will be observed without treatment. Problem Pneumonia (936441499) Pneumonia (J18.9) Active confirmed He is taking th e azithromycin 3 times a week. The other antibiotic has been discontinued. The pneumonia has resolved. He is breathing comfortably. Problem Seizure (51210390) Seizures (R56.9) Active confirmed Just before discharge from an [facility] rehabilitation he was begun on Keppra for periods of unresponsiveness. A repeat CT scan November 18, 2024 showed improvement in the hemorrhage and edema. The Her will be discontinued until the electroencephalog jackie is done. We have requested a repeat visit from [facility] neurology. Problem Stroke (574223849) Stroke (I63.9) Active confirmed Problem Benign prostatic hypertrophy without outflow obstruction (804006759) Benign prostatic hyperplasia without lower urinary tract symptoms (N40.0) Active confirmed Problem 2285256802299 Benign prostatic hyperplasia with lower urinary tract symptoms (N40.1) Active confirmed He says he is rising from sleep up to 4 times a night. His tamsulosin waas stopped because of a low blood pressure. It curtis now resumed. He is happy with this level of control. We discussed further lifestyle modifications he can maake to reduce nocturia. Problem Disorder of musculoskeletal system (591445) Leg weakness, bilateral (R29.898) Active confirmed Problem 89675907 Sleep apnea in adult (G47.30) Active confirmed He is using t he new CPAP machine without difficulty and is pleased with the results. Problem 69955839 Generalized weakness (R53.1) Active confirmed He was [...] tract infection or acute metabolic problem. 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 Problem 48619781 Atrial arrhythmia (I49.8) Active confirmed He was in a normal sinus rhythm today with no abnormalities. He has had no episodes of tachycardia, syncope or palpitations. 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 ; Former smoker Z87.891 ; Mycobacterial infection, unspecified A31.9 and Atrial arrhythmia I49.8 Robbie Kothari III, MD [address] [place] [address] [place] [address] 04/15/2024 Robbie Kothari Hyperlipidemia E78.5 ; Labyrinthitis, unspecified laterality H83.09 ; Former smoker Z87.891 ; Rosacea L71.9 ; Mycobacterial infection, unspecified A31.9 and Right anterior knee pain M25.561 Robbie Kothari III, MD [address] [place] [address] [place] [address] 04/22/2024 Robbie Kothari Hyperlipidemia E78.5 ; Benign prostatic hyperplasia with lower urinary tract symptoms N40.1 ; Former smoker Z87.891 ; Mycobacterial infection, unspecified A31.9 ; Sleep apnea in adult G47.30 and Labyrinthitis, unspecified laterality H83.09 Robbie Kothari III, MD [address] [place] [address] [place] [address] 06/02/2024 Robbie Kothari Encounter for immunization Z23 Robbie Kothari III, MD [address] [place] [address] [place] [address] 07/25/2024 Robbie Kothari Hyperlipidemia E78.5 ; Mycobacterial infection, unspecified A31.9 ; Benign prostatic hyperplasia with lower urinary tract symptoms N40.1 ; Former smoker Z87.891 ; 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 and Sleep apnea in adult G47.30 Robbie Kothari III, MD [address] [place] [address] [place] [address] 11/21/2024 Robbie Kothari Hyperlipidemia E78.5 ; Nontraumatic [...] in adult G47.30 Robbie Kothari III, MD [address] [place] [address] [place] [address] 12/02/2024 Robbie Kothari Hyperlipidemia E78.5 ; 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 ; Pneumonia J18.9 ; Former smoker Z87.891 ; Mycobacterial infection, unspecified A31.9 ; Sleep apnea in adult G47.30 and Benign prostatic hyperplasia with lower urinary tract symptoms N40.1 Robbie Kothari III, MD [address] [place] [address] [place] [address] 12/19/2024 Robbie Kothari Hyperlipidemia E78.5 ; 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 ; Pneumonia J18.9 ; Underweight R63.6 ; Seizures R56.9 ; Former smoker Z87.891 ; Mycobacterial infection, unspecified A31.9 ; Sleep apnea in adult G47.30 and Benign prostatic hyperplasia with lower urinary tract symptoms N40.1 Robbie Kothari III, MD [address] [place] [address] [place] [address] 01/04/2025 Robbie Kothari Orthostatic hypotens ion I95.1 ; Former smoker Z87.891 ; Atrial arrhythmia I49.8 ; Hyperlipidemia E78.5 ; Rosacea L71.9 ; Benign prostatic hyperplasia with lower urinary tract symptoms N40.1 ; 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 ; Underweight R63.6 and Pneumonia J18.9 Robbie Kothari III, MD [address] [place] [address] [place] [address] 01/13/2025 Robbie Kothari Generalized weakness R53.1 ; Hyperlipidemia E78.5 ; Former smoker Z87.891 ; Hypertrophy of prostate without urinary obstruction and other lower urinary tract symptoms (LUTS) N40.0 ; Mycobacterial infection, unspecified A31.9 ; Underweight R63.6 ; 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 ; Orthostatic hypotension I95.1 and Pneumonia J18.9 Robbie Kothari III, MD [address] [place] [address] [place] [address] 01/27/2025 Robbie Kothari Former smoker Z87.89 1 [...] Generalized weakness R53.1 Robbie Kothari III, MD [address] [place] [address] [place] [address] 02/24/2025 Robbie Kothari Mycobacterial infect ion, unspecified A31.9 ; 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 ; Benign prostatic hyperplasia with lower urinary tract symptoms N40.1 ; Seizures R56.9 ; Hyponatremia E87.1 ; Former smoker Z87.891 ; Generalized weakness R53.1 and Acute gout of left hand, unspecified cause M10.9 Robbie Kothari III, MD [address] [place] [address] [place] [address] 03/20/2025 Robbie Kothari Former smoker Z87.89 1 ; Hyperlipidemia 272.4 ; Benign prostatic hyperplasia without lower urinary tract symptoms N40.0 ; Mycobacterial infection, unspecified A31.9 ; Underweight R63.6 ; Anterior subcapsular polar age-related cataract of both eyes H25.033 ; Seizures R56.9 and 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 Robbie Kothari III, MD [address] [place] [address] [place] [address] 10/28/2024 Robbie Kothari III, MD [address] [place] [address] [place] [address] 11/21/2024 Robbie Kothari III, MD [address] [place] [address] [place] [address] 11/21/2024 Robbie Kothari III, MD [address] [place] [address] [place] [address] 11/22/2024 Robbie Kothari III, MD [address] [place] [address] [place] [address] 11/22/2024 Robbie Kothari III, MD [address] [place] [address] [place] [address] 11/25/2024 Robbie Kothari III, MD [address] [place] [address] [place] [address] 11/25/2024 Robbie Kothari III, MD [address] [place] [address] [place] [address] 12/05/2024 Robbie Kothari III, MD [address] [place] [address] [place] [address] 12/14/2024 Robbie Kothari III, MD [address] [place] [address] [place] [address] 12/20/2024 Robbie Kothari III, MD [address] [place] [address] [place] [address] 01/02/2025 Robbie Kothari III, MD [address] [place] [address] [place] [address] 01/03/2025 Robbie Kothari III, MD [address] [place] [address] [place] [address] 01/06/2025 Robbie Kothari III, MD [address] [place] [address] [place] [address] 01/13/2025 Robbie Kothari III, MD [address] [place] [address] [place] [address] 01/17/2025 Robbie Kothari III, MD [address] [place] [address] [place] [address] 01/17/2025 Robbie Kothari III, MD [address] [place] [address] [place] [address] 02/07/2025 Robbie Kothari III, MD [address] [place] [address] [place] [address] 02/10/2025 Robbie Kothari III, MD [address] [place] [address] [place] [address] 02/24/2025 Robbie Kothari III, MD [address] [place] [address] [place] [address] 02/27/2025 Robbie Kothari III, MD [address] [place] [address] [place] [address] 03/03/2025 Robbie Kothari III, MD [address] [place] [address] [place] [address] 03/09/2025 Robbie Kothari III, MD [address] [place] [address] [place] [address] 03/10/2025 Robbie Kothari Assessments Encounter Date Diagnosis [...] at home and was brought to the [facility] emergency of December 30, 2024 and [...] We have requested a repeat visit from [facility] neurology. 12/02/2024 Pneumonia (ICD-10 - J18.9) [...] Hyponatremia (ICD-10 - E87.1) After admission to [facility] he required hypertonic saline and then [...] We have requested a repeat visit from [facility] neurology. 03/20/2025 Mycobacterial infection, unspecified (ICD-10 - [...] - R56.9) Just before discharge from an [facility] rehabilitation he was begun on Keppra for periods of unresponsiveness. A repeat CT scan November 18, 2024 showed improvement in the hemorrhage and edema. The Her will be discontinued until the electroencephalogram is done. We have requested a repeat visit from [facility] neurology. 01/04/2025 Rosacea (ICD-10 - L71.9) [...] Hyponatremia (ICD-10 - E87.1) After admission to [facility] he required hypertonic saline and then [...] We have requested a repeat visit from [facility] neurology. 02/24/2025 Former smoker (ICD-10 - [...] Hyponatremia (ICD-10 - E87.1) After admission to [facility] he required hypertonic saline and then [...] - R56.9) Just before discharge from an [facility] rehabilitation he was begun on Keppra for periods of unresponsiveness. A repeat CT scan November 18, 2024 showed improvement in the hemorrhage and edema. The Her will be discontinued until the electroencephalogram is done. We have requested a repeat visit from [facility] neurology. 11/21/2024 Rosacea (ICD-10 - L71.9) He [...] at home and was brought to the [facility] emergency of December 30, 2024 and [...] 04/22/2024 Lipid Panel 07/22/2023 XR chest 2V 04/12/2025 Next Appt Details Provider Name:Robbie Kothari, 05/02/2025 11:00:00 AM, [address] [place] [address] [address], [place], [address], Provider Name:Robbie Kothari, 01/29/2026 09:30:00 AM, [address] [place] [address] [address], [place], [id number], Insurance Providers Payer Name Payer Address Payer Phone Subscriber Number Group Number Insured Name Patient Relationship to Insured Coverage Start Date Coverage End Date [employer]age [address] [address] [place] [phone] [id number] Freeman King Self - patient is the insured MEDICARE NGS [address] [place] [phone] [id number] Freeman King Self - patient is the insured Medical (General) History Medical History History ICD Code colonic poyps 2002 benign prostatic hyperplasia (BPH) hyperlipidemia left herniorraphy age 30 neck and right shoulder pain 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
--- OUTSIDE RECORDS SUMMARY | 2025-04-12 14:46 | XMS_ITS | Encounter Summary ---
Author Organization [facility] Address [address] [place] [address] Care Team Providers Care Subway Train Driver Name Role Phone Gloria Preston MD Primary Care Provider [phone] Encounter Details Date Type Department Care Team (Late st Contact Info) Description 11/05/2024 Lab Requisition [facility] - Main Lab [address] [facility] [address] Gloria Preston MD [address] [place] [address] Encounter for other general examination Social History [...] CBC auto differential (11/05/2024 5:51 AM EST) [facility] WBC 8.0 4.8 - 10.8 K/mcL [...] lt [facility] [address] [place] [address], [place] [phone] * Magnesium (11/05/2024 5:51 AM EST) [facility] Magnesium 2.0 1.9 - 2.6 mg/dL LAB CHEMISTRY METHOD 11/05/2024 11:42 AM EST [facility] Blood Venous blood specimen / Unknown Venipuncture / Unknown 11/05/2024 5:51 AM EST 11/05/2024 9:43 AM EST us Gloria Preston MD LAB BLOOD ORDERABLES Final Resu lt Performing Organization Address City/[facility]/ZIP Co de Phone Number [facility] [address] [place] [address], [place] [phone] * (ABNORMAL) Comprehensive metabolic panel (11/05/2024 5:51 AM EST) [facility] Sodium 133 133 - 145 mmol/L [...] [facility] Comment:Calculation based on the [...] MD LAB BLOOD ORDERABLES Final Resu lt [facility] [address] [place] [address], documented in this encounter Visit Diagnoses Diagnosis Encounter for other general examination documented in this encounter Care Teams Subway Train Driver Relationship Specialty Start Date End Date Gloria Preston MD [address] [place] [address] PCP - General Hospitalist Medicine 11/05/24 documented as of this encounter
--- OUTSIDE RECORDS SUMMARY | 2025-04-12 14:47 | XMS_ITS | Patient Health Record ---
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 Name Role Phone Robibe Kothari MD Primary Care Provider UnavailRobbie Koo Unavailable [phone] Reason For Referral No Information Medications Medication [...] Problem Status W/U Status Risk Notes Problem [id number] Encounter for screening for malignant neoplasm of colon (Z12.11) Active confirmed Problem [id number] Hx of adenomatous colonic polyps (Z86.010) Active confirmed Problem [id number] Pre-procedural examination (Z01.818) Active confirmed Plan Of Treatment Future Test Test Name Order Date COLONOSCOPY 06/15/2018 Insurance Providers Payer Name Payer Address Payer Phone Subscriber Number Group Number Insured Name Patient Relationship to Insured Coverage Start Date Coverage End Date MEDICARE OF [place] [address] [place] [address] [id number] ROCHA Self - patient is the insured [facility] Insurance C/O [facility] [address] [place] [address] [id number] ROCHA Self - patient is the insured Medical (General) History Medical History History ICD Code Denies [place],DM,CVA,Lung disease,renal dise ase Hyperlipidemia Colonoscopy 2002-small tubul ar adenoma removed; colonoscopy in 2008 was negative--just diverticulosis and internal hemorrhoids Surgical History Surgery Date(Month/Year) Left inguinal hernia Skin cancers with skin grafts
== END 2025-04-12 14:06 | disposition home or self-care (01) ==
LOC: HO.XRAY 14:05
PROVIDERS: PCP Internal Medicine Medical Oncology; Visit Provider Hospitalist
DX: R05.3 Chronic cough (principal)
CPT/HCPCS: 71046

== ENCOUNTER → 2025-04-12 14:11 | Outpatient (BNV) | payer MEDICARE, SELFPAY | PROVIDERS: PCP Internal Medicine Medical Oncology; Visit Provider Radiology Diagnostic Radiology | DX: J84.9 Interstitial pulmonary disease, unspecified (principal) | CPT/HCPCS: 71046 ==

== ENCOUNTER 2025-04-17 09:18 | Outpatient (AMB) | payer MEDICARE, SELFPAY ==
[2025-04-17 09:22] VITALS: BP 124/62; PULSE 71; O2SAT 96; BMI 20.8
--- NOTE | 2025-04-17 09:22 | MHC.OFFVIS ---
Vital Signs 04/17/25 09:22 Height 6 ft 4 in Weight 171 lb BMI 20.8 BP 124/62 Blood Pressure Location Lt brachial Position Sitting Pulse 71 Pulse Source Pulse Oximeter Pulse Oximetry (%) 96 Oxygen Delivery Method Room Air Intake Visit Reasons: MAC Allergies latex (LATEX) Allergy (Intermediate, Verified 04/17/25 09:27) RASH Band-Aid Allergy (Severe, Uncoded 02/08/25 14:51) rash neosporin Allergy (Severe, Uncoded 02/08/25 14:51) rash HPI Comments Details: The patient is an 85-year-old gentleman with a known history of childhood asthma in addition to pulmonary nodules. The patient followed for many years with CT scan following some abnormal findings including pulmonary nodules and interstitial changes. Ultimately no significant findings were noted. For the last year the patient has had episodes of coughing up blood. He has not coughed up blood now more than 6 months. He denies any weight loss or night sweats. He states that he walks about a mi a day and denies any shortness of breath. He has been evaluated for cardiac symptoms including palpitations. At this point the patient does not use any respiratory inhalers. He does not feel like he needs new either. We did look at his chest x-ray from September 2020 demonstrating some increased interstitial changes compared to his previous x-ray from 2019. We personally reviewed that x-ray was also personally reviewed the CT scan of the chest that he had back in 2017 demonstrating some interstitial changes primarily in the upper lung zones. The patient did have multiple pulmonary nodules. Therefore, based on his abnormal chest x-ray and ongoing intermittent coughing with sometimes hemoptysis the patient needs to have a CT scan of the chest. In addition to that will having undergo pulmonary function studies to assess her COPD. 01/08/2021 the patient is here for pulmonary follow-up visit. Overall he is feeling better. Denies any significant hemoptysis at this time. He did undergo his pulmonary function studies which were reassuring without any obstruction no restriction. He does have moderate diffusion impairment. In addition to that he did undergo a repeat CT scan of the chest which was compared to his CT scan from 2017. It demonstrated interval worsening of the bronchiectasis the pulmonary nodules and tree-in-bud. This appears to be more consistent with a smoldering infectious process versus inflammatory process. At this point the patient is agreeable to bronchoscopy to assess for any infectious etiologies and also to rule out malignant processes. 01/30/2021 the patient is here for pulmonary follow-up visit. He is status post bronchoscopy. He did have significant purulent secretions in the airways that were suction. Otherwise no other acute abnormalities noted. His cultures are all negative at this time. Still waiting for the results of the mycobacteria cultures assessing for the possibility of a mycobacterial lung disease. In the meantime he has been using his nebulizer. At this point he is to get an Acapella valve to further provide chest physical therapy with the goal of maintaining good pulmonary hygiene. 07/29/2021 the patient is here for a pulmonary follow-up visit. Overall the patient has been doing much better. He is responding well to the nebulized therapy followed by the Acapella valve. He has been able to clear significant amount of secretions. His lungs appear to be better overall with less congestion. He has been using the nebulizer once a day and I did agree with him decreasing his frequency to once a day at this time. He does have underlying pulmonary nodules. The last time he had a CT scan of the chest was back in November 2020. Will plan to follow-up with a CT scan in 6 months time which should be little bit longer than a year. I am hopeful the nodules are stable we can at that point follow them as needed. However, if the nodules are growing in size further diagnostic interventions will be warranted. 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 At this point the patient is doing well and does not require antimicrobial agents at this time. 10/03/2021 the patient is here for a pulmonary follow-up visit. He continues to have a productive cough on a regular basis. He does use the nebulized therapy and is able to expectorate well. 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 He also understands that treating it will require 17 months of antimicrobial therapy in order to follow the Infectious Disease recommendations. He also understands that there is a high relapse straight even after completing the 17 months. Therefore at this point will follow him closely since his symptoms do not appear to be worsening. We did review his CT scan of the chest demonstrating bronchiectatic changes in addition to pulmonary nodular densities. No evidence of any cavitations at this time. Patient last CT scan was back in 2020. the repeat CT scan scheduled for December 2021. if the nodules are changing increasing of progressing we need to consider treating the mycobacteria infection. In the meantime will try aggressive chest physical therapy by continuing his nebulized therapy and also adding hypertonic saline. The patient does have an Acapella valve any start using it after the nebulized therapy. In addition to that the patient did have a recent fall. He did go to the ER and the scott to the back of his call because of a laceration. He is also complaining of some left-sided flank discomfort from his fall. He does have some point tenderness over the ribs. Likely contusions. He had a CT scan of the brain demonstrating some chronic changes. He did not have any chest imaging studies. At this point will follow-up after his CT scan he is going to continue with aggressive chest physical therapy. 12/24/2021 the patient is here for pulmonary follow-up visit. He describes worsening cough productive in nature. He is also developing increasing shortness of breath. Moderate severity with activity. The patient did have a repeat CT scan of the chest that we personally reviewed demonstrating waxing waning pulmonary nodules in addition to having interval progression of the bronchiectasis and appears to have more treating budding and more progression of his airway disease. This is likely secondary to the smoldering infection with the non tuberculosis mycobacterial infection. He did try the percussion valve without any significant improvement. Therefore this time view of his worsening symptoms and also worsening CT scan will go ahead and start him on therapy. Will try him on the lowest dose possible in order for him to be able to tolerated and we can always consider increasing the medication. Once he is on therapy around 4-6 weeks after worse will get another sputum culture to make sure that he is tolerating the therapy. He also have to undergo blood work and also an EKG to make sure that he can tolerate therapy. Also mentioned on the report of the CT scan is that he does have 2 mild compression fractures. At this point the patient denies any back discomfort. However, in view of the findings the patient should follow up with his primary care doctor to be assessed for the possibility of osteopenia or osteoporosis. 02/25/2022 so the patient is here for a pulmonary follow-up visit. Overall he is doing well from a respiratory status. His cough is overall better. He still expectorating some but much less. He is tolerating the antimycobacterial therapy. Has been on the azithromycin 3 times a week in addition to a lower dose rifampin and ethambutol. Denies any eye Darron edwards. He did have an EKG back in December without any QT changes. The patient has not had any blood work since then. He will go for blood work to make sure that everything else is stable. In the meantime he is having some diarrhea issues. We did talk about the side effects of the medications and GI symptoms. If his GI symptoms becomes too significant we talked about dropping 1 of the agents to just at the dual therapy. The patient understands that the triple antibiotic regimen to avoid too much resistance buildup due to the mycobacterial resistance possibilities. In the meantime the patient did have a CT scan back in December demonstrating interval worsening of pulmonary nodules and bronchiectatic changes. Will plan to continue the therapy and follow-up with a CT scan in June 2022. The patient meantime will provide us with the sputum sample to make sure that the mycobacterium is eradicating. 06/30/2022 the patient is here for a pulmonary follow-up visit. Overall continues to feel well. His cough is overall better. He is exercising regularly. He is tolerating the triple antimicrobial therapy. The only adverse effect is discoloration of the urine which is common with the rifampin In addition to some diarrhea. We did talk about adding probiotics to his regimen. He will try some [id number] options. He did have a repeat CT scan of the chest demonstrating interval improvement of the cavitary lesions and also improvement of the parenchymal disease. No evidence of any new nodules and he has stable pulmonary nodules. Therefore it is encouraging that the therapy has been clinically affected also radiologically with evidence of improvement. He understands that treatment should at least last been 12-15 months of therapy. His sputum culture repeat has not demonstrated any mycobacterial disease. 12/26/2022 the patient is here for a pulmonary follow-up visit. He continues to do well. His cough is overall better. He continues on the triple antimicrobial therapy. He has completed now 1 year. Based on the fact that the patient is doing better will go ahead and stop the ethambutol and the rifampin and will continue with the azithromycin for now. His last EKG was reassuring. Will plan to continue on the azithromycin and will plan to repeat the CT scan in May 2023. If the patient develops any worsening symptoms prior to that he is to call the office for an earlier evaluation. 06/24/2023 the patient is here for a pulmonary follow-up visit. He continues on the azithromycin 3 times a week 500 mg. He is happy that he is stopped the ethambutol and rifampin. Respiratory tobin the patient is doing well denies any worsening cough or shortness of breath. Although he has had episodes of hemoptysis he states. Is minimal amount scant in amount. At this point is subsided. Still the patient is aware that if it happens again if it is a very more significance he would have to call again in order to address the hemoptysis. He did recently have a CT scan 06/17/2023 which I personally reviewed. It appears patient does have some significant bronchiectasis and nodular densities and tree-in-bud and all are very similar to his previous CT scan at least there is no worsening of disease. He also has a new pulmonary nodule in the right base. Seems to be also related to the underlying mycobacterial disease. At this point will continue with the azithromycin 3 times a week since the patient clinically doing well. Although, if his hemoptysis worsens his respiratory symptoms worsen then will need to readdress that. I will also provide him with a sputum cup in order for him to bring a sputum sample. The patient should get a repeat CT scan 6 months to follow-up with a new pulmonary nodule. 12/16/2023 the patient is here for a pulmonary follow-up visit. Overall he continues to do well. Continues on the azithromycin 500 mg 3 times a week. His cough is improved. Denies any significant congestion. Denies any hemoptysis. Overall the patient has been doing well. Back in July he did grew Klebsiella from his sputum culture. Otherwise has not grown any other organisms. He did have a CT scan of the chest which we personally reviewed and also compared to the CT scans from 10/03/2019 in 2022. it appears that he is waxing waning pulmonary nodules along with bronchiectatic changes treating budding and a right upper lobe thick-walled cavitary lesion. For the most part the nodular densities have changed some indeed have gotten little better but again some new ones are present. The patient also has significant bronchiectasis. He has not been using the Acapella valve for chest PT. We did talk about the importance of that. The patient understands that most likely the findings on the CT scan all has to do with mycobacterial disease. Also predisposes him to Other enteric bacteria. Still is hard to know for sure if any of those nodular densities have any malignant potentials. At this point clinically the patient is doing well and therefore this CT scan is also reassuring. Will go ahead and follow-up in 6 months. The patient needs to have an EKG to make sure he is tolerating the macrolide therapy. In addition to that will request another sputum for culture and also AFB. If the patient develops any worsening respiratory symptoms specially hemoptysis needs to call the office quickly. Otherwise will follow-up in 6 months. Will discuss further imaging studies when he returns in 6 months. 06/17/2024 the patient is here for a pulmonary follow-up visit. Overall he continues to do well cough is better chest congestion is better overall feels normal. The patient had sputum cultures back in December indeed positive for mycobacterium still. The organism still sensitive to the azithromycin. Initially he was not a broader course of antimicrobial therapy and subsequently we were able to switch him down to monitor therapy. Currently he is going to send a small prophylactic dose of azithromycin. His imaging studies CT scans have not changed which is reassuring as well. Has waxing waning pulmonary nodules. Although he has extensive bronchiectatic changes because of the chronicity of the non tuberculosis mycobacterial infection. Still though since the patient is doing well and he is fairly asymptomatic and also considering the risks additional medications at this time based on his age and other comorbidities will go ahead and just keep him on the azithromycin 3 times a week at the current dose. If any worsening symptoms we call. Otherwise will follow-up with a chest x-ray in 6 months. Prior to the next visit he should also get an EKG. 12/16/2024 the patient is here for pulmonary follow-up visit. Since we last spoke the patient was diagnosed with pneumonia. Chest x-ray demonstrated a worsening right upper lobe airspace disease. The patient had just had a stroke and likely aspiration related. He had been on the azithromycin daily in addition to that we had put him on cefpodoxime. His symptoms improved. He is not coughing as much. He is using nebulizer. Sometimes when uses it at night he does get choked up with secretions. Therefore I did time just to use it in the morning and then in the evening as needed. He should also be using his Acapella valve. The patient's exam is reassuring. Will have him get an x-ray today to make sure that this right upper lobe process as improved. If it looks any worse then will consider additional antibiotic therapy. The patient also had blood work done including a low magnesium level will have him go for blood work as well. The patient will return 4 months. He will continue to work with physical therapy occupational therapy for his recent stroke. Seems like he has already shown some improvement. 03/01/2025 the patient is here for pulmonary follow-up visit. Since we last spoke he went to the hospital again with pneumonia. Was back in January. He was given antibiotics and also chlorhexidine mouthwash. After she had a chest x-ray which I personally reviewed in February. Still has some evidence of airspace disease but very stable compared to his previous x-rays and his recent pneumonia. He states that he is still coughing up some phlegm although recently his cough has decrease in his phlegm production has decreased as well. His exam is indeed reassuring. He continues on the azithromycin on a daily basis. And he had been on the chlorhexidine mouthwash. He does not have his own dentition but still will go ahead and continue for a month to minimize risk of aspiration. He is doing better with the eating and he has actually gained some weight. His cough is also strong which is reassuring. Overall he is doing a little bit better. Will continue with current regimen will try to get another sputum if he is able to do so and will repeat the x-ray before the next visit in 3 months. He has any worsening symptoms or any concerning symptoms he can always call for an earlier assessment. 04/17/2025 the patient is here for a pulmonary follow-up visit. Overall he is doing better. He is eating better he is gaining weight he is also walking better after having the stroke he is recovering very well. We did review his sputum cultures again demonstrating the mycobacterium avium complex. And also reviewed his most recent x-ray from 04/12/2025 and I did compare to previous x-rays from February and January of 2025 demonstrating the persistent airspace disease related to his underlying smoldering lower respiratory infection from the non tuberculosis mycobacterial process. He has been on the azithromycin now daily without any significant improvement in the cough and symptoms. Will go ahead and add rifampin to his regimen. He already has I issues so will avoid ethambutol. He will do it 3 times a week and then get blood work and then if it is stable he can increase it to daily. In the meantime he may be a good candidate for amikacin. Will go ahead and request a prior approval to start him on amikacin at this time. Will reassess with a repeat x-ray when he returns in 3 months. [facility] Medical History Bronchiectasis COPD (chronic obstructive pulmonary disease) Mycobacterial disease Hernia HLD (hyperlipidemia) BPH (benign prostatic hyperplasia) Bronchiectasis Hemoptysis Pulmonary nodules Cough Abnormal chest x-ray Surgical History Hx of colonoscopy Social History Household Members: Spouse Housing: House Do you presently have visiting nurse or other home services: Yes Alcohol intake: former Patient Tobacco Use Status: Former Tobacco user Tobacco use type: Cigarette Years Smoked: 20 years service: Yes Review of Systems Const Denies headache(s), Denies night sweats, Reports weight gain and Denies weight loss ENT Denies change in voice, Denies headache(s), Denies lip swelling, Denies mouth pain, Reports nasal congestion, Reports nasal discharge and Denies tongue swelling Card Denies chest pain Resp Denies change in phlegm color, Reports chest congestion, Reports cough, Reports hemoptysis, Denies excessive phlegm production, Denies pain on inspiration and Denies pain with cough GI Denies abdominal pain, Denies diarrhea and Reports loose stools Musc Denies no additional complaints Neuro Reports as per HPI and Denies headache(s) Psych Denies no additional complaints Brad/Lymph Denies easy bleeding and Denies lymphadenopathy Aller/Immun Denies lip swelling and Denies tongue swelling Physical Exam Vital Signs: Last Vital Signs Pulse 71 04/17/25 09:22 BP 124/62 04/17/25 09:22 Pulse Ox 96 04/17/25 09:22 Oxygen Delivery Method Room Air 04/17/25 09:22 BMI result Body Mass Index 20.8 Last Vital Signs Temp 98.5 F 01/16/25 07:44 Pulse 94 01/16/25 08:33 Resp 18 01/16/25 08:33 BP 119/73 01/16/25 07:44 Pulse Ox 97 01/16/25 07:44 O2 Del Method Room Air 01/16/25 07:44 BMI result Body Mass Index 18.5 Const Other: Constitutional : Awake, interactive, not in distress Neck : Normal inspection, Supple Cardiovascular : RRR, no JVP, no lower extremity edema Respiratory : fair bilateral air entry, no crackles, wheezes or rhonchi Gastrointestinal: soft, lax, Normal bowel sounds, Non tender Skin : Warm, Dry Neurological : Alert & oriented x3, mild right sided weakness upper more than lower extremities General: comfortable Neck Neck: Yes supple Chest Chest palpation & inspection: abnormal inspection of the chest Resp Effort & Inspection: normal respiratory effort Auscultation: no crackles, no rales, no rhonchi and diminished lung sounds Cardio Rhythm: abnormal rhythm Heart sounds: S1 normal heart sound present and S2 normal heart sound present GI Palpation (GI): Soft to palpation Skin General skin exam: no rashes or lesions noted Extrem General: Yes no clubbing, cyanosis or edema Results Reviewed Results Reviewed: Freeman King??83??M??1940 ? Allergy/Adv: latex, [Band-Aid], [neosporin] (More??) Close Chest CT (Signed) Kelsea Diaz - 11/23/[address] (Signed) Kelsea Diaz - 06/17/[address] (Signed) Gonzalo Samayoa - 05/29/[address] (Signed) Carol Syed - 12/17/[address] (Signed) Arose,Zack - 10/21/[address] (Signed) Arose,Zack - 10/21/[address] (Signed) Carol Syed - 11/16/20 Venous Duplex (Signed) Semaj Sellers - 09/27/20 Chest X-Ray (Signed) Gonzalo Samayoa - 09/25/20 Launch?Image [place] [id number] CT Scan Report Signed Patient: Freeman King MR#: [id number] : 1940 Acct:[id number] Age/Sex: 83 / M ADM Date: 11/23/23 Loc: HO.CT Attending Dr: Denilson Minor MD Ordering Physician: Denilson Minor MD Date of Service: 11/23/23 Procedure(s): CT chest wo IV con Accession Number(s): [id number] cc: Robbie Kothari MD; Denilson Minor MD~ EXAMINATION: CT CHEST WITHOUT CONTRAST CLINICAL INFORMATION: Pulmonary nodules COMPARISON: CTs, most recent, 06/17/2023 TECHNIQUE: Multidetector volumetric CT imaging of the chest was done. Axial MIP volume rendering provided. Sagittal and coronal reformatted images were obtained. This CT examination was performed using dose optimization techniques as appropriate, variously including the following: *Automated exposure control *Adjustment of mA and/or kV according to patient size (this includes techniques or standardized protocols for targeted exams where dose is matched to indication/reason for exam; i.e. extremities or head) *Use of iterative reconstruction technique DLP: 211 mGy-cm FINDINGS: CORONARY CLINICAL SPECIALIST: Hyperinflation and centrilobular emphysema. Right upper lobe scarring/retraction. Left mid/upper reticulonodular increased markings. LUNGS: Trachea and bronchi are patent. Bilateral upper lobe retraction. Bilateral bronchiectasis, predominantly in the upper lobes with wall thickening and mucous plugging. Unchanged RUL thick-walled cavitary nodule, 3:18. Scattered ill-defined pulmonary opacities, some of which may represent mucous plugging. These are increasing in the left lower lobe, 5:276 and right lower lobe, 5:479. 1 cm LLL 6 pleural-based nodule on previous study has decreased in size, now measuring 7 mm, 5:311. MEDIASTINUM: Left thyroid calcification again seen. Nonspecific lymph nodes. Nonenlarged heart. Atherosclerotic calcifications nonaneurysmal aorta. Ectatic pulmonary arteries. CORONARY ARTERY CALCIFICATION: Moderate PLEURA: There is no pleural effusion. No pleural mass or thickening. AXILLA: No lymphadenopathy. UPPER ABDOMEN: Unchanged hepatic and right renal cysts. OSSEOUS STRUCTURES: Unremarkable. CT/CT chest wo IV con IMPRESSION: Redemonstration waxing and waning pulmonary opacities/nodules, increasing in the bilateral lower lobes while 1 cm pleural-based nodule seen on previous study has demonstrated interval decrease in size. Irregular pulmonary nodules are seen in the setting of predominantly upper lobe chronic bronchiectasis/mucous plugging, emphysema and stable 1.3 cm right upper lobe cavitary lesion. Diagnostic considerations continue to include, but are not limited to TB, NAYA, and fungal infections. Neoplastic process cannot be excluded. Consider follow-up chest CT in 6 months. Dictated By: Kelsea Diaz MD Signed By: <Electronically signed by Kelsea Diaz MD in OV> 11/25/23 1436 DD/ 0740 TD/TT: Palm Gatherer: Assessment & Plan Assessment & Plan (1) Bronchiectasis: Code(s): J47.9 - Bronchiectasis, uncomplicated Category: Medical Qualifiers: Bronchiectasis type: uncomplicated Qualified Code(s): J47.9 - Bronchiectasis, uncomplicated (2) Pulmonary nodules: Code(s): R91.8 - Other nonspecific abnormal finding of lung field Category: Medical (3) Cough: Code(s): R05 - Cough Category: Medical Qualifiers: Cough type: chronic Qualified Code(s): R05.3 - Chronic cough (4) Mycobacterial disease: Code(s): A31.9 - Mycobacterial infection, unspecified Category: Medical (5) COPD (chronic obstructive pulmonary disease): Code(s): J44.9 - Chronic obstructive pulmonary disease, unspecified Category: Medical Qualifiers: COPD type: chronic bronchitis Chronic bronchitis type: simple Qualified Code(s): J41.0 - Simple chronic bronchitis Plan CPT with neb and acapella valve continue nebulizer therapy with albuterol continue azithromycin 500mg MWF -->daily start Rifampin 3 times a week, then bloodwork, if ok daily start Amikacin nebs CXR F/U 3 months Orders: Orders Complete Blood Count Auto Diff Today J18.9 - Pneumonia, unspecified organism, J41.0 - Simple chronic bronchitis Liver Panel Today J18.9 - Pneumonia, unspecified organism, J41.0 - Simple chronic bronchitis Erythrocyte Sedimentation Rate Today J18.9 - Pneumonia, unspecified organism, J41.0 - Simple chronic bronchitis XR chest 2V Today R91.8 - Other nonspecific abnormal finding of lung field Basic Metabolic Panel Today J18.9 - Pneumonia, unspecified organism, J41.0 - Simple chronic bronchitis Medications: New rifampin 600 mg (2 x 300 mg) PO DAILY 60 caps 6RF Coding Level of Care Code Est Pt Level 5 (66726) Complex EM visit Add On G2211 Diagnoses Bronchiectasis without complication J47.9 Bronchiectasis type: uncomplicated Pulmonary nodules R91.8 Chronic cough R05.3 Cough type: chronic Mycobacterial disease A31.9 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
--- OUTSIDE RECORDS SUMMARY | 2025-04-17 09:43 | XMS_ITS | Clinical Summary ---
Author Organization [facility] Address [address] [place] [address] [place] [address] Phone Care Team Providers Care Player Manager Name Role Phone Unavailable Primary Care Provider [...] Office Visit [facility] [address] [place] [address] Anurag John [...] patient's age to complete this topic Insurance [facility] Medicare
--- OUTSIDE RECORDS SUMMARY | 2025-04-17 09:44 | XMS_ITS | Patient Health Record ---
Author Organization Robbie Kothari III, MD Address [address] [place] [address] Care Team Providers Care Spool Fixer Name Role Phone Robbie Kothari Primary Care Provider Allergies Allergen (clinical drug ingredient) Drug/Non Drug Allergy documented on EMR Reaction Allergy Type Onset Date Status No Known Drug Allergy Unknown Drug Allergy Active No Known Food Allergy Unknown Drug Allergy Active Results Component Value Reference Range Notes Hold Lt Blue - Possible Coag Reviewed date:10/30/2024 09:55:19 AM Interpretation: Performing Lab:[facility], [address] [place] [phone] Notes/Report: Hold Lt Blue - Possible Coag SEE NOTE Specimen will be held untested for 4 hours. Call Hematology if testing is desired. Comprehensive Met. Panel Reviewed date:10/30/2024 09:55:19 AM Interpretation: Performing Lab:[facility], [address] [place] [phone] Notes/Report: Sodium 131 135-145 mmol/L Potassium 4.2 [...] Magnesium Reviewed date:10/30/2024 09:55:19 AM Interpretation: Performing Lab:[address] [address] Notes/Report: Magnesium 1.5 1.6-2.6 mg/dL Troponin-I High Sensitivity Reviewed date:10/30/2024 09:55:19 AM Interpretation: Performing Lab:[facility], [address] [place] [phone] Notes/Report: Troponin-I High Sensitivity 3.1 <3.5-35.0 ng/L The Duran high sensitivity Troponin-I results should be used in conjunction with other diagnostic information such as ECG, clinical observations and information, and patient symptoms to aid in the diagnosis of MS. SARS-CoV2/FLU/RSV Reviewed date:10/30/2024 09:55:19 AM Interpretation: Performing Lab:[address] [address] Notes/Report: Influenza A PCR NEGATIVE Negative Influenza [...] by authorized laboratories. Testing performed on the OptiNoseXpert utilizing real-time RT-PCR. All SARS CoV2 and positive influenza A/B results are reported to [facility]. CT head for stroke Reviewed date:10/30/2024 09:55:19 AM Interpretation: Performing Lab: Notes/Report: [address] [address] [address] Scan Report Signed Patient: Freeman King MR#: [id number] [birth year] : 1940 Acct:[id number] Age/Sex: 84 / M ADM Date: 10/27/24 Loc: HO.ED Attending Dr: Ordering Physician: Alejandrina Mazariegos Date of Service: 10/27/24 Procedure(s): CT head for STROKE Accession Number(s): [id number] cc: Robbie Kothari MD; Alejandrina Mazariegos Report Number: [id number]: Total DLP = 799.00 mGy-cm EXAMINATION: CT [...] lobe. There is resultant mass effect and duom-so-czgtm midline shift of 3 mm. There is [...] atrium. 3. There is 3 mm of divk-be-vrgxo midline shift. No impending herniation at this time. This critical result was discussed with Alejandrina Mazariegos at 12:11 PM, on 10/27/2024 via phone call. Electronically signed by: Zohaib Brown MD 10/27/2024 12:14 PM [facility] Dictated By: Zohaib Brown MD Signed By: <Electronically signed by Zohaib Brown MD in OV> 10/27/24 1214 DD/ 1148 TD/TT: 10/27/24 1156 Brazer Electronic: [place] [address] [address] Scan Report Signed Patient: Jeremiah King MR#: [id number] 30 : 1940 Acct:[id number] Age/Sex: 84 / M ADM Date: 10/27/24 Loc: HO.ED Attending Dr: Ordering Physician: Alejandrina Mazariegos Date of Service: 10/27/24 Procedure(s): CT hea d for STROKE Accession Number(s): [id number] cc: Robbie Kothari MD; Alejandrina Mazariegos Report [...] There is resultant m ass effect and wgca-fr-jxdne midline shift of 3 mm. There is [...] atrium. 3. There is 3 mm of wqpb-dm-sozoa midline shift. No impending herniation at this time. This critical result was discussed with Alejandrina Mazariegos at 12:11 PM, on 10/27/2024 via phone call. Electronically gurpreet d by: Zohaib Brown MD 10/27/2024 12:14 PM [facility] Dictated By: Zohaib Brown MD Signed By: <Electronically signed by Zohaib Brown MD in OV> 10/27/24 1214 DD/ 1148 TD/TT: 10/27/24 1156 Brazer Electronic: CT cervical spine wo con Reviewed date:10/30/2024 09:55:19 AM Interpretation: Performing Lab: Notes/Report: [address] [address] [address] Scan Report Signed Patient: Freeman King MR#: [id number] [birth year] : 1940 Acct:[id number] Age/Sex: 84 / M ADM Date: 10/27/24 Loc: HO.ED Attending Dr: Ordering Physician: Alejandrina Mazariegos Date of Service: 10/27/24 Procedure(s): CT cervical spine wo IV con Accession Number(s): [id number] cc: Robbie Kothari MD; Alejandrina Mazariegos Report Number: [id number]: Total DLP = 376.00 mGy-cm EXAMINATION: CT [...] by: Zohaib Brown MD 10/27/2024 02:23 PM [facility] Dictated By: Zohaib Brown MD Signed By: <Electronically signed by Zohaib Brown MD in OV> 10/27/24 1423 DD/ 1212 TD/TT: 10/27/24 1334 Brazer Electronic: [place] [address] [address] Scan Report Signed Patient: Jeremiah King MR#: [id number] 30 : 1940 Acct:[id number] Age/Sex: 84 / M ADM Date: 10/27/24 Loc: .ED Attending Dr: Ordering Physician: Alejandrina Mazariegos Date of Service: 10/27/24 Procedure(s): CT cer vical spine wo IV con Accession Number(s): [id number] cc: Robbie Kothari MD; Alejandrina Mazariegos Report [...] by: Zohaib Brown MD 10/27/2024 02:23 PM [facility] Dictated By: Zohaib Brown MD Signed By: <Electronically signed by Zohaib Brown MD in OV> 10/27/24 1423 DD/ 1212 TD/TT: 10/27/24 1334 Brazer Electronic: XR chest 1V Reviewed date:10/30/2024 09:55:19 AM Interpretation: Performing Lab: Notes/Report: [address] [address] XRay Report Signed Patient: Freeman King MR#: [id number] [birth year] : 1940 Acct:[id number] Age/Sex: 84 / M ADM Date: 10/27/24 Loc: HO.ED Attending Dr: Ordering Physician: Alejandrina Mazariegos Date of Service: 10/27/24 Procedure(s): XR chest 1V Accession Number(s): [id number] cc: Robbie Kothari MD; Alejandrina Mazariegos EXAMINATION: [...] by: Zohaib Brown MD 10/27/2024 01:41 PM [facility] Dictated By: Zohaib Brown MD Signed By: <Electronically signed by Zohaib Brown MD in OV> 10/27/24 1341 DD/ 1127 TD/TT: 10/27/24 1328 Brazer Electronic: [address] [address] XRay Report Signed Patient: Jeremiah King MR#: [id number] [birth year] : 1940 Acct:[id number] Age/Sex: 84 / M ADM Date: 10/27/24 Loc: HO.ED Attending Dr: Ordering Physician: Alejandrina Mazariegos Date of Service: 10/27/24 Procedure(s): XR chest 1V Accession Number(s): [id number] cc: Robbie Kothari MD; Alejandrina Mazariegos EXAMINATION: [...] by: Zohaib Brown MD 10/27/2024 01:41 PM [facility] Dictated By: Zohaib Brown MD Signed By: <Electronically signed by Zohaib Brown MD in OV> 10/27/24 1341 DD/ 1127 TD/TT: 10/27/24 1328 Brazer Electronic: XR chest 2V Reviewed date:12/16/2024 03:30:40 PM Interpretation: Performing Lab: Notes/Report: [address] [address] XRay Report Signed Patient: Freeman King MR#: [id number] 30 : 1940 Acct:[id number] Age/Sex: 84 / M ADM Date: 12/02/24 Loc: HO.XRAY Attending Dr: Robbie Kothari MD Ordering Physician: Denilson Minor MD Date of Service: 12/02/24 Procedure(s): XR chest 2V Accession Number(s): [id number] cc: Robbie Kothari MD; Denilson Minor MD [...] 12/02/24 1150 DD/ 1042 TD/TT: 12/02/24 1052 Brazer Electronic: [place] [address] XRay Report Signed Patient: Jeremiah King MR#: [id number] [birth year] : 1940 Acct:[id number] Age/Sex: 84 / M ADM Date: 12/02/24 Loc: JILLIAN Attending Dr: Robbie Kothari MD Ordering Physician: Denilson Minor MD Date of Service: 12/02/24 Procedure(s): XR chest 2V Accession Number(s): [id number] cc: Robbie Kothari MD; Denilson Minor MD [...] 12/02/24 1150 DD/ 1042 TD/TT: 12/02/24 1052 Brazer Electronic: Complete Blood Count Auto Di ff Reviewed date:12/16/2024 03:30:40 PM Interpretation: Performing Lab:[facility], [address] [place] [address] Notes/Report: White Blood Count 5.2 4.8-10.8 X10*3/uL [...] Panel Reviewed date:12/16/2024 03:30:40 PM Interpretation: Performing Lab:[address] [address] Notes/Report: Sodium 136 135-145 mmol/L Potassium 3.9 [...] Magnesium Reviewed date:12/16/2024 03:30:40 PM Interpretation: Performing Lab:[facility], [address] [place] [phone] Notes/Report: Magnesium 1.8 1.6-2.6 mg/dL XR chest 2V Reviewed date:12/16/2024 03:30:40 PM Interpretation: Performing Lab: Notes/Report: [address] [address] XRay Report Signed Patient: Freeman King MR#: [id number] [birth year] : 1940 Acct:[id number] Age/Sex: 84 / M ADM Date: 12/16/24 Loc: JILLIAN Attending Dr: Denilson Minor MD Ordering Physician: Denilson Minor MD Date of Service: 12/16/24 Procedure(s): XR chest 2V Accession Number(s): [id number] cc: Robbie Kothari MD; Denilson Minor MD [...] 12/16/24 1138 DD/ 1048 TD/TT: 12/16/24 1110 Brazer Electronic: [place] [address] XRay Report Signed Patient: Jeremiah King MR#: [id number] [birth year] : 1940 Acct:[id number] Age/Sex: 84 / M ADM Date: 12/16/24 Loc: .XRAY Attending Dr: Denilson Minor MD Ordering Physician: Denilson Minor MD Date of Service: 12/16/24 Procedure(s): XR chest 2V Accession Number(s): [id number] cc: Robbie Kothari MD; Denilson Minor MD [...] 12/16/24 1138 DD/ 1048 TD/TT: 12/16/24 1110 Brazer Electronic: Complete Blood Count Auto Di ff Reviewed date:12/30/2024 08:37:25 PM Interpretation: Performing Lab:[facility], [address] [place] [phone] Notes/Report: White Blood Count 6.5 4.8-10.8 X10*3/uL [...] NRBC Abs Auto 0.000 0.0-0.012 X10*3/uL Comprehensive Rienzi. Panel Fa Reviewed date:12/30/2024 08:37:25 PM Interpretation: Performing Lab:[facility], [address] [place] [address] Notes/Report: Sodium 135 135-145 mmol/L Potassium 4.2 [...] Panel Reviewed date:12/30/2024 08:37:25 PM Interpretation: Performing Lab:[facility], [address] [place] [phone] Notes/Report: Triglycerides 84 <150 mg/dL Desirable Triglyceride: [...] Antigen Reviewed date:12/30/2024 08:37:25 PM Interpretation: Performing Lab:[facility], [address] [place] [phone] Notes/Report: Prostate Specific Antigen 2.95 <0.05-4.0 ng/mL PSA methodology: Duran Alinity i Chemiluminescent Microparticle Immunoassay (CMIA) Complete Blood Count Auto Di ff Reviewed date:12/30/2024 08:37:25 PM Interpretation: Performing Lab:[facility], [address] [place] [phone] Notes/Report: White Blood Count 9.1 4.8-10.8 X10*3/uL [...] te Reviewed date:12/30/2024 08:37:25 PM Interpretation: Performing Lab:[facility], [address] [place] [phone] Notes/Report: Erythrocyte Sedimentation Rate 60 0-15 MM/HR Patients with polycythemia and many hemoglobin abnormalities may have depressed sed rates whereas patients with anemia may have elevated sed rates. Partial Thromboplastin Time Reviewed date:12/30/2024 08:37:25 PM Interpretation: Performing Lab:[facility], [address] [place] [phone] Notes/Report: Partial Thromboplastin Time 33.0 26.0-36.8 SEC For information regarding the monitoring of direct thrombin inhibitors, please refer to Pharmacy. Comprehensive Met. Panel Reviewed date:12/30/2024 08:37:25 PM Interpretation: Performing Lab:[facility], [address] [place] [phone] Notes/Report: Sodium 132 135-145 mmol/L Potassium 4.9 [...] Acid Reviewed date:12/30/2024 08:37:25 PM Interpretation: Performing Lab:[facility], [address] [place] [phone] Notes/Report: Lactic Acid 1.0 0.5-2.0 mmol/L Uric Acid Reviewed date:12/30/2024 08:37:25 PM Interpretation: Performing Lab:[facility], [address] [place] [phone] Notes/Report: Uric Acid 4.1 3.4-7.0 mg/dL Magnesium Reviewed date:12/30/2024 08:37:25 PM Interpretation: Performing Lab:[facility], [address] [place] [phone] Notes/Report: Magnesium 1.7 1.6-2.6 mg/dL Troponin-I High Sensitivity Reviewed date:12/30/2024 08:37:25 PM Interpretation: Performing Lab:[facility], [address] [place] [phone] Notes/Report: Troponin-I High Sensitivity 3.4 <3.5-35.0 ng/L The Duran high sensitivity Troponin-I results should be used in conjunction with other diagnostic information such as ECG, clinical observations and information, and patient symptoms to aid in the diagnosis of MS. C Reactive Protein Reviewed date:12/30/2024 08:37:25 PM Interpretation: Performing Lab:[facility], [address] [place] [phone] Notes/Report: C Reactive Protein 4.85 < or = 0.50 mg/dL B Type Natriuretic Peptide Reviewed date:12/30/2024 08:37:25 PM Interpretation: Performing Lab:[facility], [address] [place] [phone] Notes/Report: B Type Natriuretic Peptide 82 <100 pg/mL Lipase Reviewed date:12/30/2024 08:37:25 PM Interpretation: Performing Lab:[facility], [address] [place] [phone] Notes/Report: Lipase 43 8-78 U/L UA CC w/rflx Micro + Cult Reviewed date:12/30/2024 08:37:25 PM Interpretation: Performing Lab:[facility], [address] [place] [phone] Notes/Report: Urine, Clean Catch Color Urine Yellow Appearance Urine Clear PH 7.5 5.0-9.0 Glucose Urine UA Negative Negative mg/dL Urine Blood Negative Negative Specific [place] - Urine >= 1.030 1.005-1.025 Urine Protein Negative Neg-Trace mg/dL Urine Ketones Negative Negative mg/dL Nitrite Urine Negative Negative Leukocyte Esterase Urine Negative Negative SARS-CoV2/FLU/RSV Reviewed date:12/30/2024 08:37:25 PM Interpretation: Performing Lab:[address] [address] Notes/Report: Influenza A PCR NEGATIVE Negative Influenza [...] by authorized laboratories. Testing performed on the Tubis GeneXpert utilizing real-time RT-PCR. All SARS CoV2 and positive influenza A/B results are reported to [facility]. Blood Culture (First) Reviewed date:01/14/2025 08:40:47 PM Interpretation: Performing Lab:[facility], [address] [place] [phone] Notes/Report: Blood Culture (First) No growth after 5 days. Blood Culture (Second) Reviewed date:01/14/2025 08:40:47 PM Interpretation: Performing Lab:[address] [address] Notes/Report: Blood Culture (Second) No growth after [address] angio head neck Reviewed date:12/30/2024 08:37:25 PM Interpretation: Performing Lab: Notes/Report: [address] [address] [address] Scan Report Signed Patient: Freeman King MR#: [id number] [birth year] : 1940 Acct:[id number] Age/Sex: 84 / M ADM Date: 12/30/24 Loc: HO.ED Attending Dr: Ordering Physician: Rahul Zamora MD Date of Service: 12/30/24 Procedure(s): CT angio head neck Accession Number(s): [id number] cc: Robbie Kothari MD; Rahul Zamora MD Report Number: [id number]: Total DLP = 1652.00 mGy-cm EXAMINATION: CTA [...] intimal flap. Superior cerebellar arteries are patent. supervisor pipeline: Right P1 segment: Hypoplastic/atretic. No focal stenosis. [...] 12/30/24 1225 DD/ 1133 TD/TT: 12/30/24 1155 Brazer Electronic: [address] [address] [address] Scan Report Signed Patient: Jeremiah King MR#: [id number] [birth year] : 1940 Acct:[id number] Age/Sex: 84 / M ADM Date: 12/30/24 Loc: HO.ED Attending Dr: Ordering Physician: Rahul Zamora MD Date of Service: 12/30/24 Procedure(s): CT ang io head neck Accession Number(s): [id number] cc: Robbie Kothari MD; Rahul Zamora MD [...] intimal flap. Superior cerebellar arteries are patent. supervisor pipeline: Right P1 segment: Hypoplastic/atretic. No focal stenosis. [...] 12/30/24 1225 DD/ 1133 TD/TT: 12/30/24 1155 Brazer Electronic: XR wrist RT 2V Reviewed date:12/30/2024 08:37:25 PM Interpretation: Performing Lab: Notes/Report: [address] [address] XRay Report Signed Patient: Freeman King MR#: [id number] [birth year] : 1940 Acct:[id number] Age/Sex: 84 / M ADM Date: 12/30/24 Loc: HO.ED Attending Dr: Ordering Physician: Rahul Zamora MD Date of Service: 12/30/24 Procedure(s): XR wrist RT 2V Accession Number(s): [id number] cc: Robbie Kothari MD; Rahul Zamora MD [...] 12/30/24 1300 DD/ 1243 TD/TT: 12/30/24 1255 Brazer Electronic: [address] [address] XRay Report Signed Patient: Jeremiah King MR#: [id number] [birth year] : 1940 Acct:[id number] Age/Sex: 84 / M ADM Date: 12/30/24 Loc: HO.ED Attending Dr: Ordering Physician: Rahul Zamora MD Date of Service: 12/30/24 Procedure(s): XR wri st RT 2V Accession Number(s): [id number] cc: Robbie Kothari MD; Rahul Zamora MD [...] 12/30/24 1300 DD/ 1243 TD/TT: 12/30/24 1255 Brazer Electronic: XR chest 1V Reviewed date:12/30/2024 08:37:25 PM Interpretation: Performing Lab: Notes/Report: [address] [address] XRay Report Signed Patient: Freeman King MR#: [id number] [birth year] : 1940 Acct:[id number] Age/Sex: 84 / M ADM Date: 12/30/24 Loc: .ED Attending Dr: Ordering Physician: Rahul Zamora MD Date of Service: 12/30/24 Procedure(s): XR chest 1V Accession Number(s): [id number] cc: Robbie Kothari MD; Rahul Zamora MD [...] 12/30/24 1210 DD/ 1031 TD/TT: 12/30/24 1149 Brazer Electronic: [place] [address] XRay Report Signed Patient: Jeremiah King MR#: [id number] [birth year] : 1940 Acct:[id number] Age/Sex: 84 / M ADM Date: 12/30/24 Loc: .ED Attending Dr: Ordering Physician: Rahul Zamora MD Date of Service: 12/30/24 Procedure(s): XR chest 1V Accession Number(s): [id number] cc: Robbie Kothari MD; Rahul Zamora MD [...] 12/30/24 1210 DD/ 1031 TD/TT: 12/30/24 1149 Brazer Electronic: XR hand RT min 3V Reviewed date:12/30/2024 08:37:25 PM Interpretation: Performing Lab: Notes/Report: [address] [address] XRay Report Signed Patient: Freeman King MR#: [id number] [birth year] : 1940 Acct:[id number] Age/Sex: 84 / M ADM Date: 12/30/24 Loc: HO.ED Attending Dr: Ordering Physician: Rahul Zamora MD Date of Service: 12/30/24 Procedure(s): XR hand RT min 3V Accession Number(s): [id number] cc: Robbie Kothari MD; Rahul Zamora MD [...] 12/30/24 1301 DD/ 1243 TD/TT: 12/30/24 1255 Brazer Electronic: [address] [address] XRay Report Signed Patient: Jeremiah King MR#: [id number] [birth year] : 1940 Acct:[id number] Age/Sex: 84 / M ADM Date: 12/30/24 Loc: HO.ED Attending Dr: Ordering Physician: Rahul Zamora MD Date of Service: 12/30/24 Procedure(s): XR camacho d RT min 3V Accession Number(s): [id number] cc: Robbie Kothari MD; Rahul Zamora MD [...] 12/30/24 1301 DD/ 1243 TD/TT: 12/30/24 1255 Brazer Electronic: Renae Coates Hematolo gy Reviewed date:01/01/2025 10:45:53 AM Interpretation: Performing Lab:[facility], [address] [place] [phone] Notes/Report: Hold Lav - Possible Hematology SEE NOTE Specimen will be held untested for 8 hours. Call Hematology if testing is desired. Basic Metabolic Panel Reviewed date:01/01/2025 10:45:53 AM Interpretation: Performing Lab:[facility], [address] [place] [phone] Notes/Report: Sodium 135 135-145 mmol/L Potassium 4.2 [...] ff Reviewed date:01/14/2025 08:40:47 PM Interpretation: Performing Lab:[facility], [address] [place] [phone] Notes/Report: White Blood Count 7.5 4.8-10.8 X10*3/uL [...] Coag Reviewed date:01/14/2025 08:40:47 PM Interpretation: Performing Lab:[facility], [address] [place] [phone] Notes/Report: Hold Lt Blue - Possible Coag SEE NOTE Specimen will be held untested for 4 hours. Call Hematology if testing is desired. Liver Panel Reviewed date:01/14/2025 08:40:47 PM Interpretation: Performing Lab:[facility], [address] [place] [phone] Notes/Report: Bilirubin Total 1.0 0.0-1.0 mg/dL Bilirubin Direct 0.3 0.0-0.5 mg/dL Aspartate Amino Transferase 28 5-37 U/L Slight Hemolysis.Interpret result with caution. Alanine Aminotransferase 12 0-40 U/L Total Protein 7.4 6.5-8.0 g/dL Albumin Level 3.6 3.5-5.0 g/dL Alkaline Phosphatase 70 39-117 U/L Basic Metabolic Panel Reviewed date:01/14/2025 08:40:47 PM Interpretation: Performing Lab:[facility], [address] [place] [phone] Notes/Report: Sodium 130 135-145 mmol/L Potassium 4.4 [...] Acid Reviewed date:01/14/2025 08:40:47 PM Interpretation: Performing Lab:[facility], [address] [place] [phone] Notes/Report: Lactic Acid 0.8 0.5-2.0 mmol/L Magnesium Reviewed date:01/14/2025 08:40:47 PM Interpretation: Performing Lab:[address] [address] Notes/Report: Magnesium 1.8 1.6-2.6 mg/dL Troponin-I High Sensitivity Reviewed date:01/14/2025 08:40:47 PM Interpretation: Performing Lab:[address] [address] Notes/Report: Troponin-I High Sensitivity 3.3 <3.5-35.0 ng/L The Duran high sensitivity Troponin-I results should be used in conjunction with other diagnostic information such as ECG, clinical observations and information, and patient symptoms to aid in the diagnosis of MS. C Reactive Protein Reviewed date:01/14/2025 08:40:47 PM Interpretation: Performing Lab:[address] [address] Notes/Report: C Reactive Protein 13.61 < or = 0.50 mg/dL B Type Natriuretic Peptide Reviewed date:01/14/2025 08:40:47 PM Interpretation: Performing Lab:[facility], [address] [place] [phone] Notes/Report: B Type Natriuretic Peptide 53 <100 pg/mL Procalcitonin Reviewed date:01/14/2025 08:40:47 PM Interpretation: Performing Lab:[facility], [address] [place] [phone] Notes/Report: Procalcitonin 0.04 Procalcitonin (PCT) Reference Range: [...] results from different laboratories and methodologies. References: [employer]/Society of Critical Care [...] 510(k) substantial equivalence determination decision summary for [facility]. http://www.accessda ta.fda.fov/cdrh_doc s/reviews/X253864.p df. Published September 2004. Accessed February 2017. Gram stain Reviewed date:01/17/2025 05:36:47 AM Interpretation: Performing Lab:[facility], [address] [place] [phone] Notes/Report: Gram stain Gram stain results: Gram stain 4+ polys Gram stain 1+ epithelial cells Gram stain 4+ red blood cells Gram stain 1+ Gram-positive cocci UA CC w/rflx Micro + Cult Reviewed date:01/14/2025 08:40:47 PM Interpretation: Performing Lab:[address] [address] Notes/Report: Urine, Catheterized Color Urine Yellow Appearance Urine Clear PH 6.0 5.0-9.0 Glucose Urine UA Negative Negative mg/dL Urine Blood Negative Negative Specific [place] - Urine 1.020 1.005-1.025 Urine Protein Negative Neg-Trace mg/dL Urine Ketones Negative Negative mg/dL Nitrite Urine Negative Negative Leukocyte Esterase Urine Negative Negative SARS-CoV2/FLU/RSV Reviewed date:01/14/2025 08:40:47 PM Interpretation: Performing Lab:[address] [address] Notes/Report: Influenza A PCR NEGATIVE Negative Influenza [...] by authorized laboratories. Testing performed on the Tubis GeneXpert utilizing real-time RT-PCR. All SARS CoV2 and positive influenza A/B results are reported to [facility]. Blood Culture (First) Reviewed date:02/12/2025 08:15:10 PM Interpretation: Performing Lab:[facility], [address] [place] [phone] Notes/Report: Blood Culture (First) No growth after 5 days. Blood Culture (Second) Reviewed date:02/12/2025 08:15:10 PM Interpretation: Performing Lab:[address] [address] Notes/Report: Blood Culture (Second) No growth after 5 days. Sputum Culture Reviewed date:01/17/2025 05:36:47 AM Interpretation: Performing Lab:[facility], [address] [place] [phone] Notes/Report: Sputum Culture BAP Sputum Culture 2+ Mixed respiratory ramon. CT chest wo con Reviewed date:01/14/2025 08:40:47 PM Interpretation: Performing Lab: Notes/Report: [address] [address] [address] Scan Report Signed Patient: Freeman King MR#: [id number] 30 : 1940 Acct:[id number] Age/Sex: 84 / M ADM Date: 01/13/25 Loc: .S3 358-[address]: Tommy Rodriguez MD Ordering Physician: Linette Brown Date of Service: 01/13/25 Procedure(s): CT chest wo IV con Accession Number(s): [id number] cc: Linette Brown; Robbie Kothari MD Report Number: [id number]: Total DLP = 336.00 mGy-cm CLINICAL HISTORY: Pt with hemoptysis, ?RUL and LLL pneumonia CT chest without contrast Comparison: CT/REG/MN/SR - CT CHEST WO IV CON - [...] OV> 01/13/25 174 DD/ 45 TD/TT: 01/13/251745 [facility]: [address] [address] [address] Scan Report Signed Patient: Jeremiah King MR#: [id number] [birth year] : 1940 Acct:[id number] Age/Sex: 84 / M ADM Date: 01/13/25 Loc: HO.S3 358-[address]: Tommy Rodriguez MD Ordering Physician: Linette Brown Date of Service: 01/13/25 Procedure(s): CT y[address] st wo IV con Accession Number(s): [id number] cc: Linette Brown; Robbie Kothari MD Report [...] OV> 01/13/251746 DD/ 1746 TD/TT: 01/13/25 174 [facility] Electronic: CT head/brain wo con Reviewed date:01/14/2025 08:40:47 PM Interpretation: Performing Lab: Notes/Report: [address] [address] [address] Scan Report Signed Patient: Freeman King MR#: [id number] [birth year] : 1940 Acct:[id number] Age/Sex: 84 / M ADM Date: 01/13/25 Loc: HO.ED Attending Dr: Ordering Physician: Taras Spencer MD Date of Service: 01/13/25 Procedure(s): CT head/brain wo IV con Accession Number(s): [id number] cc: Robbie Kothari MD; Taras Spencer MD Report Number: [id number]: Total DLP = 726.00 mGy-cm EXAMINATION: CT [...] 01/13/25 1235 DD/ 1215 TD/TT: 01/13/25 1226 [facility]: [address] [address] [address] Scan Report Signed Patient: Jeremiah King MR#: [id number] [birth year] : 1940 Acct:[id number] Age/Sex: 84 / M ADM Date: 01/13/25 Loc: HO.ED Attending Dr: Ordering Physician: Taras Spencer MD Date of Service: 01/13/25 Procedure(s): CT head/brain wo IV con Accession Number(s): [id number] cc: Robbie Kothari MD; Taras Spencer MD [...] 01/13/25 1235 DD/ 1215 TD/TT: 01/13/25 1226 [facility]: XR chest 1V Reviewed date:01/14/2025 08:40:47 PM Interpretation: Performing Lab: Notes/Report: [address] [address] XRay Report Signed Patient: Freeman King MR#: [id number] [birth year] : 1940 Acct:[id number] Age/Sex: 84 / M ADM Date: 01/13/25 Loc: HO.ED Attending Dr: Ordering Physician: Taras Spencer MD Date of Service: 01/13/25 Procedure(s): XR chest 1V Accession Number(s): [id number] cc: Robbie Kothari MD; Taras Spencer MD [...] 01/13/25 1228 DD/ 1222 TD/TT: 01/13/25 1222 [facility]: [address] [address] XRay Report Signed Patient: Jeremiah King MR#: [id number] [birth year] : 1940 Acct:[id number] Age/Sex: 84 / M ADM Date: 01/13/25 Loc: HO.ED Attending Dr: Ordering Physician: Taras Spencer MD Date of Service: 01/13/25 Procedure(s): XR chest 1V Accession Number(s): [id number] cc: Robbie Kothari MD; Taras Spencer MD [...] 01/13/25 1228 DD/ 1222 TD/TT: 01/13/25 1222 [facility]: Hold Lav - Possible Hematolo gy Reviewed date:01/14/2025 08:40:46 PM Interpretation: Performing Lab:[facility], [address] [place] [phone] Notes/Report: Hold Lav - Possible Hematology SEE NOTE Specimen will be held untested for 8 hours. Call Hematology if testing is desired. Basic Metabolic Panel Reviewed date:01/14/2025 08:40:47 PM Interpretation: Performing Lab:[facility], [address] [place] [address] Notes/Report: Sodium 130 135-145 mmol/L Potassium 4.0 [...] Urine Reviewed date:01/14/2025 08:40:47 PM Interpretation: Performing Lab:[address] [address] Notes/Report: Osmolality Urine [phone] mosm/kg Sodium Urine Random Reviewed date:01/14/2025 08:40:47 PM Interpretation: Performing Lab:[address] [address] Notes/Report: Sodium Urine Random 93.0 Vancomycin Random Reviewed date:01/14/2025 08:40:47 PM Interpretation: Performing Lab:[address] [address] Notes/Report: Vancomycin Random 9.3 15-20 mcg/mL Complete Blood Count Auto Di ff Reviewed date:01/15/2025 06:45:37 AM Interpretation: Performing Lab:[address] [address] Notes/Report: White Blood Count 5.0 4.8-10.8 X10*3/uL [...] Hematocrit Reviewed date:01/17/2025 05:36:47 AM Interpretation: Performing Lab:[address] [address] Notes/Report: Hemoglobin 11.9 14.0-18.0 g/dl Hematocrit 33.2 42.0-52.0 % Basic Metabolic Panel Reviewed date:01/15/2025 06:45:37 AM Interpretation: Performing Lab:[address] [address] Notes/Report: Sodium 135 135-145 mmol/L Potassium 3.8 [...] gy Reviewed date:01/17/2025 05:36:47 AM Interpretation: Performing Lab:[address] [address] Notes/Report: Hold Lav - Possible Hematology SEE NOTE Specimen will be held untested for 8 hours. Call Hematology if testing is desired. Creatinine Reviewed date:01/17/2025 05:36:47 AM Interpretation: Performing Lab:[facility], [address] [place] [address] Notes/Report: Creatinine 0.77 0.5-1.4 mg/dL Creatinine Clr [...] ff Reviewed date:02/26/2025 07:54:27 AM Interpretation: Performing Lab:[address] [address] Notes/Report: White Blood Count 6.6 4.8-10.8 X10*3/uL [...] NRBC Abs Auto 0.000 0.0-0.012 X10*3/uL Comprehensive Rienzi. Panel Fa st Reviewed date:02/26/2025 07:54:27 AM Interpretation: Performing Lab:[facility], [address] [place] [address] Notes/Report: Sodium 135 135-145 mmol/L Potassium 4.3 [...] Panel Reviewed date:02/26/2025 07:54:27 AM Interpretation: Performing Lab:[facility], [address] [place] [address] Notes/Report: Triglycerides 58 <150 mg/dL Desirable Triglyceride: [...] date:02/26/2025 07:54:27 AM Interpretation: Performing Lab: Notes/Report: [address] [address] XRay Report Signed Patient: Freeman King MR#: [id number] [birth year] : 1940 Acct:[id number] Age/Sex: 85 / M ADM Date: 02/23/25 Loc: HO.KIRTIAY Attending Dr: Denilson Minor MD Ordering Physician: Denilson Mnior MD Date of Service: 02/23/25 Procedure(s): XR chest 2V Accession Number(s): [id number] cc: Robbie Kothari MD; Denilson Minor MD [...] OV> 02/23/25 0853 DD/ 6 TD/TT: 02/23/25835 [facility]: [place] [address] XRay Report Signed Patient: Jeremiah King MR#: [id number] [birth year] : 1940 Acct:[id number] Age/Sex: 85 / M ADM Date: 02/23/25 Loc: HO.XRAY Attending Dr: Denilson Minor MD Ordering Physician: Denilson Minor MD Date of Service: 02/23/25 Procedure(s): XR chest 2V Accession Number(s): [id number] cc: Robbie Kothari MD; Denilson Minor MD [...] 02/23/25 0853 DD/ 6 TD/TT: 02/23/25 0836 [facility]: XR chest 2V Reviewed date:04/15/2025 07:11:05 PM Interpretation: Performing Lab: Notes/Report: [address] [address] XRay Report Signed Patient: Freeman King MR#: [id number] [birth year] : 1940 Acct:[id number] Age/Sex: 85 / M ADM Date: 04/12/25 Loc: J[place] Attending Dr: Denilson Minor MD Ordering Physician: Denilson Minor MD Date of Service: 04/12/25 Procedure(s): XR chest 2V Accession Number(s): [id number] cc: Robbie Kothari MD; Denilson Minor MD [...] 04/12/25 1430 DD/ 1411 TD/TT: 04/12/25 1426 [facility]: [address] [address] XRay Report Signed Patient: Jeremiah King MR#: [id number] [birth year] : 1940 Acct:[id number] Age/Sex: 85 / M ADM Date: 04/12/25 Loc: [place] Attending Dr: Denilson Minor MD Ordering Physician: Denilson Minor MD Date of Service: 04/12/25 Procedure(s): XR chest 2V Accession Number(s): [id number] cc: Robbie Kothari MD; Denilson Minor MD [...] 04/12/25 1430 DD/ 1411 TD/TT: 04/12/25 1426 [facility]: Reason For Referral Reason Urgent Referral Requ est Evaluate and Treat ? Catheter Can not tolerate tamsulosin Diagnosis 1 Benign prostatic hyp erplasia with lower urinary tract symptoms (N40.1) Diagnosis 2 Nocturia (R35.1) Referral Organization Robbie Kothari III, MD Referring Provider First Name Robbie Referring Provider Last Name Saniya Referring Provider Speciality Internal M edicine Referred Provider [facility] er, Urology Referred Provider Specialty Urology [...] Referring Provider Speciality Internal edicine Referred Organization [facility] nter Referred Provider [facility], Core Physical Therapy Referred Address [address] [place] [address],[place], [id number], Referred Provider Specialty Physical The rapist General Notes D, Sarika 03/09/2025 02:30:36 PM > referral and progress note faxed. 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) Referral Organization Robbie Kothari III, MD Referring Provider First Name Robbie Referring Provider Last Name Saniya [facility] Referred Provider [facility] er, Speech and Hearing Referred Provider Specialty Unknown General Notes D, Sarika 03/09/2025 02:27:01 PM > Referral and last progress not faxed Referral Priority Routine Referral Appointment Date 03/15/2025 Medications Medication SIG (Take, Route, Frequency, Duration) Notes Start Date End Date Status Hydrocortisone 1 % 1 application [employer] ally Twice a day 01/27/2025 Active Albuterol Sulfate (2.5 MG/3ML) 0.083% Inhalation Active Nystatin 532042 UNIT/GM APPLY TOPICALLY 3 TIMES A DAY [...] Problem Status W/U Status Risk Notes Problem 8994348 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 Problem Hyperlipidemia (33711642) Hyperlipidemia (E78.5) Active confirmed Distal cholesterol is stable but his triglycerides are elevated. He will continue on his current diet until he has fully recovered from the stroke. He will continue on his medications. Problem 48877971 Hyponatremia (E87.1) Active confirmed After admission to [facility] he required hypertonic saline and then 1 g of sodium chloride tablets 3 times a day to restore his potassium to normal. He was discharged without this. Blood work with a sodium level will be checked frequently. Problem 315741464 Underweight (R63.6) Active confirmed His appetite is better and he is feeling stronger. His body mass index is now 19. We continue our discussions on diet and nutrition. Problem 40978815 Mycobacterial infection, unspecified (A31.9) Active confirmed He continues on daily A azithromycin. A recent chest x-ray shows worsening airspace disease in right lung. He is due to see pulmonary within the next week. He has a cough which is nonproductive and is afebrile. n. Problem 24949829 Orthostatic hypotension (I95.1) Active confirmed He developed th is at home and was brought to the [facility] emergency of December 30, 2024 and admitted overnight for hydration. We have discussed aggressive hydration and adequate nutrition. Problem 285475362 Rosacea (L71.9) Active confirmed He was given metronidazole gel. He was instructed in its use. Problem 939104159 Pulmonary nodule (R91.1) Active confirmed This is being observed. No change in his symptoms have been noted. Problem 258616285 Adenoma of ascending colon (D12.2) Active confirmed He will call he r gastroenterologis t to see if additional colonoscopies will be recommended. Problem 869064016 Hypertrophy of prostate without urinary obstruction and other lower urinary tract symptoms (LUTS) (N40.0) Active confirmed He has been usi ng lifestyle modification and now experiences nocturia only once a night. Problem 40490748 Abdominal hernia without obstruction and without gangrene, recurrence not specified, unspecified hernia type (K46.9) Active confirmed The hernia is n ow asymptomatic and will be observed without treatment. Problem Pneumonia (093624153) Pneumonia (J18.9) Active confirmed He is taking th e azithromycin 3 times a week. The other antibiotic has been discontinued. The pneumonia has resolved. He is breathing comfortably. Problem Seizure (86283692) Seizures (R56.9) Active confirmed Just before discharge from an [facility] rehabilitation he was begun on Keppra for periods of unresponsiveness. A repeat CT scan November 18, 2024 showed improvement in the hemorrhage and edema. The Her will be discontinued until the electroencephalog jackie is done. We have requested a repeat visit from [facility] neurology. Problem Stroke (588736409) Stroke (I63.9) Active confirmed Problem Benign prostatic hypertrophy without outflow obstruction (024235619) Benign prostatic hyperplasia without lower urinary tract symptoms (N40.0) Active confirmed Problem 5285342396361 Benign prostatic hyperplasia with lower urinary tract symptoms (N40.1) Active confirmed He says he is rising from sleep up to 4 times a night. His tamsulosin waas stopped because of a low blood pressure. It curtis now resumed. He is happy with this level of control. We discussed further lifestyle modifications he can maake to reduce nocturia. Problem Disorder of musculoskeletal system (219943) Leg weakness, bilateral (R29.898) Active confirmed Problem 74177779 Sleep apnea in adult (G47.30) Active confirmed He is using t he new CPAP machine without difficulty and is pleased with the results. Problem 58362439 Generalized weakness (R53.1) Active confirmed He was [...] tract infection or acute metabolic problem. 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 Problem 70291530 Atrial arrhythmia (I49.8) Active confirmed He was in a normal sinus rhythm today with no abnormalities. He has had no episodes of tachycardia, syncope or palpitations. 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 Problem 582759010393651 Acute gout of left hand, unspecified cause [...] Provider Diagnosis Robbie Kothari III, MD [address] [place] [address] [place] [phone] 04/22/2024 Robbie Kothari Hyperlipidemia E78.5 ; Benign prostatic hyperplasia with lower urinary tract symptoms N40.1 ; Former smoker Z87.891 ; Mycobacterial infection, unspecified A31.9 ; Sleep apnea in adult G47.30 and Labyrinthitis, unspecified laterality H83.09 Robbie Kothari III, MD [address] [place] [address] [place] [id number] 06/02/2024 Robbie Kothari Encounter for immunization Z23 Robbie Kothari III, MD [address] [place] [address] [place] [id number] 07/25/2024 Robbie Kothari Hyperlipidemia E78.5 ; Mycobacterial infection, unspecified A31.9 ; Benign prostatic hyperplasia with lower urinary tract symptoms N40.1 ; Former smoker Z87.891 ; 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 and Sleep apnea in adult G47.30 Robbie Kothari III, MD [address] [place] [address] [place] [id number] 11/21/2024 Robbie Kothari Hyperlipidemia E78.5 ; Nontraumatic [...] in adult G47.30 Robbie Kothari III, MD [address] [place] [address] [place] [address] 12/02/2024 Robbie Kothari Hyperlipidemia E78.5 ; 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 ; Pneumonia J18.9 ; Former smoker Z87.891 ; Mycobacterial infection, unspecified A31.9 ; Sleep apnea in adult G47.30 and Benign prostatic hyperplasia with lower urinary tract symptoms N40.1 Robbie Kothari III, MD [address] [place] [address] [place] [address] 12/19/2024 Robbie Kothari Hyperlipidemia E78.5 ; 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 ; Pneumonia J18.9 ; Underweight R63.6 ; Seizures R56.9 ; Former smoker Z87.891 ; Mycobacterial infection, unspecified A31.9 ; Sleep apnea in adult G47.30 and Benign prostatic hyperplasia with lower urinary tract symptoms N40.1 Robbie Kothari III, MD [address] [place] [address] [place] [address] 01/04/2025 Robbie Kothari Orthostatic hypotens ion I95.1 ; Former smoker Z87.891 ; Atrial arrhythmia I49.8 ; Hyperlipidemia E78.5 ; Rosacea L71.9 ; Benign prostatic hyperplasia with lower urinary tract symptoms N40.1 ; 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 ; Underweight R63.6 and Pneumonia J18.9 Robbie Kothari III, MD [address] [place] [address] [place] [address] 01/13/2025 Robbie Kothari Generalized weakness R53.1 ; Hyperlipidemia E78.5 ; Former smoker Z87.891 ; Hypertrophy of prostate without urinary obstruction and other lower urinary tract symptoms (LUTS) N40.0 ; Mycobacterial infection, unspecified A31.9 ; Underweight R63.6 ; 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 ; Orthostatic hypotension I95.1 and Pneumonia J18.9 Robbie Kothari III, MD [address] [place] [address] [place] [address] 01/27/2025 Robbie Kothari Former smoker Z87.89 1 [...] Generalized weakness R53.1 Robbie Kothari III, MD [address] [place] [address] [place] [address] 02/24/2025 Robbie Kothari Mycobacterial infect ion, unspecified A31.9 ; 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 ; Benign prostatic hyperplasia with lower urinary tract symptoms N40.1 ; Seizures R56.9 ; Hyponatremia E87.1 ; Former smoker Z87.891 ; Generalized weakness R53.1 and Acute gout of left hand, unspecified cause M10.9 Robbie Kothari III, MD [address] [place] [address] [place] [address] 03/20/2025 Robbie Kothari Former smoker Z87.89 1 ; Hyperlipidemia 272.4 ; Benign prostatic hyperplasia without lower urinary tract symptoms N40.0 ; Mycobacterial infection, unspecified A31.9 ; Underweight R63.6 ; Anterior subcapsular polar age-related cataract of both eyes H25.033 ; Seizures R56.9 and 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 Robbie Kothari III, MD [address] [place] [address] [place] [address] 10/28/2024 Robbie Kothari III, MD [address] [place] [address] [place] [address] 11/21/2024 Robbie Kothari III, MD [address] [place] [address] [place] [address] 11/21/2024 Robbie Kothari III, MD [address] [place] [address] [place] [address] 11/22/2024 Robbie Kothari III, MD [address] [place] [address] [place] [address] 11/22/2024 Robbie Kothari III, MD [address] [place] [address] [place] [address] 11/25/2024 Robbie Kothair III, MD [address] [place] [address] [place] [address] 11/25/2024 Robbie Kothari III, MD [address] [place] [address] [place] [address] 12/05/2024 Robbie Kothari III, MD [address] [place] [address] [place] [address] 12/14/2024 Robbie Kothari III, MD [address] [place] [address] [place] [address] 12/20/2024 Robbie Kothari III, MD [address] [place] [address] [place] [address] 01/02/2025 Robbie Kothari III, MD [address] [place] [address] [place] [address] 01/03/2025 Robbie Kothari III, MD [address] [place] [address] [place] [address] 01/06/2025 Robbie Kothari III MD [address] [place] [address] [place] [address] 01/13/2025 Robbie Kothari III, MD [address] [place] [address] [place] [address] 01/17/2025 Robbie Kothari III, MD [address] [place] [address] [place] [address] 01/17/2025 Robbie Kothari III, MD [address] [place] [address] [place] [address] 02/07/2025 Robbie Kothari III, MD [address] [place] [address] [place] [address] 02/10/2025 Robbie Kothari III, MD [address] [place] [address] [place] [address] 02/24/2025 Robbie Kothari III, MD [address] [place] [address] [place] [address] 02/27/2025 Robbie Kothari III, MD [address] [place] [address] [place] [address] 03/03/2025 Robbie Kothari III, MD [address] [place] [address] [place] [address] 03/09/2025 Robbie Kothari III, MD [address] [place] [address] [place] [address] 03/10/2025 Robbie Kothari Assessments Encounter Date Diagnosis (ICD Code) Assessment Notes Treatment Notes Treatment Clinical Notes 04/22/2024 Hyperlipidemia (ICD-10 - E78.5) His lipids [...] at home and was brought to the [facility] emergency of December 30, 2024 and admitted [...] - R56.9) Just before discharge from an [facility] rehabilitation he was begun on Keppra for periods of unresponsiveness. A repeat CT scan November 18, 2024 showed improvement in the hemorrhage and edema. The Her will be discontinued until the electroencephalogram is done. We have requested a repeat visit from [facility] neurology. 12/02/2024 Pneumonia (ICD-10 - J18.9) [...] lower urinary tract symptoms (ICD-10 - N40.0) 04/22/2024 Mycobacterial infection, unspecified (ICD-10 - A31.9) [...] Hyponatremia (ICD-10 - E87.1) After admission to [facility] he required hypertonic saline and then [...] We have requested a repeat visit from [facility] neurology. 03/20/2025 Mycobacterial infection, unspecified (ICD-10 - A31.9) He continues on daily A azithromycin. A recent chest x-ray shows worsening airspace disease in right lung. He is due to see pulmonary within the next week. He has a cough which is nonproductive and is afebrile. n. 04/22/2024 Sleep apnea in adult (ICD-10 - [...] We have requested a repeat visit from [facility] neurology. 01/04/2025 Rosacea (ICD-10 - L71.9) [...] Hyponatremia (ICD-10 - E87.1) After admission to [facility] he required hypertonic saline and then [...] continue our discussions on diet and nutrition. 04/22/2024 Labyrinthitis, unspecified laterality (ICD-10 - H83.09) [...] - R56.9) Just before discharge from an [facility] rehabilitation he was begun on Keppra for periods of unresponsiveness. A repeat CT scan November 18, 2024 showed improvement in the hemorrhage and edema. The Her will be discontinued until the electroencephalogram is done. We have requested a repeat visit from [facility] neurology. 02/24/2025 Former smoker (ICD-10 - [...] Hyponatremia (ICD-10 - E87.1) After admission to [facility] he required hypertonic saline and then [...] - R56.9) Just before discharge from an [facility] rehabilitation he was begun on Keppra for periods of unresponsiveness. A repeat CT scan November 18, 2024 showed improvement in the hemorrhage and edema. The Her will be discontinued until the electroencephalogram is done. We have requested a repeat visit from [facility] neurology. 11/21/2024 Rosacea (ICD-10 - L71.9) [...] at home and was brought to the [facility] emergency of December 30, 2024 and admitted [...] Details Provider Name:Robbie Kothari, 05/02/2025 11:00:00 AM, [address] [facility] [address], [place], [address], Provider Name:Robbie Kothari, 01/29/2026 09:30:00 AM, [address] [facility] [address], [place], [address], Insurance Providers Payer Name Payer Address Payer Phone Subscriber Number Group Number Insured Name Patient Relationship to Insured Coverage Start Date Coverage End Date [employer] Advantage [address] [address] [place] [address] [id number] Freeman King Self - patient is the insured MEDICARE NGS [address] [place] [phone] [id number] Freeman King Self - patient is the insured Medical (General) History Medical History History ICD Code colonic poyps 2002 benign prostatic hyperplasia (BPH) hyperlipidemia left herniorraphy age 30 neck and right shoulder pain 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
--- OUTSIDE RECORDS SUMMARY | 2025-04-17 09:44 | XMS_ITS | Patient Health Record ---
Author Organization [facility] Address [address] [place] [address] Care Team Providers Care Clinical Informatics Educator Name Role Phone Robbie Kothari MD Primary Care Provider Ana Rosales Unavailable [phone] Allergies Allergen (clinical drug ingredient) Drug/Non Drug [...] W/U Status Risk Notes Problem Atherosclerosis of [place] artery of both lower extremities, with unspecified presence of clinical manifestation (I70.203) Active confirmed Q7(A), Q8(2B), Q9(1B,2C) Vital Signs Blood pressure diastolic 58 mm Hg 03/28/2025 Height 6 ft 4 in in 03/28/2025 Blood pressure systolic 114 mm Hg 03/28/2025 Weight 150 lbs 03/28/2025 BMI 18.26 kg/m2 03/28/2025 Encounters Encounter Location Date Provider Diagnosis [address] [address] 06/28/2024 Ana Perica Tinea unguium B35.1 ; Pain in right toe(s) M79.674 and Pain in left toe(s) M79.[address] [address] 09/27/2024 Ana Perica Tinea unguium B35.1 ; Pain in right toe(s) M79.674 and Pain in left toe(s) M79.[address] [address] 12/27/2024 Ana Perica Tinea unguium B35.1 ; Pain in right toe(s) M79.674 and Pain in left toe(s) M79.[address] [address] 03/28/2025 Ana Perica Atherosclerosis of [place] artery of both lower extremities, with unspecified [...] unguium (ICD-10 - B35.1) 03/28/[address] [place] artery of both lower extremities, with unspecified [...] Details Provider Name:Ana garduno, 07/04/2025 09:15:00 AM, [address] [place] [address], [phone], Insurance Providers Payer Name Payer Address Payer Phone Subscriber Number Group Number Insured Name Patient Relationship to Insured Coverage Start Date Coverage End Date [facility] Medicare-[id number] [address] [address] [place] [address] [id number] Freeman King Self - patient is the insured Medical (General) History Medical History History ICD Code Measles Mumps Chicken pox Stroke Surgical History Surgery Date(Month/Year) hernia colonoscopy Hospitalization History Reason Date(Month/Year) [facility]- Stroke 10/2024
--- OUTSIDE RECORDS SUMMARY | 2025-04-17 09:44 | XMS_ITS | Encounter Summary ---
Author Organization [facility] Address [address] [place] [address] Care Team Providers Care Integration Architect Name Role Phone Gloria Preston MD Primary Care Provider [phone] Encounter Details Date Type Department Care Team (Late st Contact Info) Description 11/05/2024 Lab Requisition [facility] [address] [facility] [employer] [place] [address] Gloria Preston MD [address] [place] [address] Encounter for other general examination Social History [...] CBC auto differential (11/05/2024 5:51 AM EST) [facility] WBC 8.0 4.8 - 10.8 K/mcL LAB HEMETOLOGY METHOD 11/05/2024 11:21 AM [facility] RBC 4.20(L) 4.50 - 5.50 M/mcL LAB HEMETOLOGY METHOD 11/05/2024 11:21 AM [facility] Hemoglobin 13.8 13.5 - 17.5 g/dL LAB HEMETOLOGY METHOD 11/05/2024 11:21 AM [facility] Hematocrit 39.6(L) 42.0 - 54.0 % LAB HEMETOLOGY METHOD 11/05/2024 11:21 AM [facility] MCV 94.7 79.0 - 98.0 FL LAB HEMETOLOGY METHOD 11/05/2024 11:21 AM [facility] MCH 33.0(H) 27.0 - 32.0 pcg LAB HEMETOLOGY METHOD 11/05/2024 11:21 AM [facility] MCHC 34.8 32.0 - 37.0 g/dL LAB HEMETOLOGY METHOD 11/05/2024 11:21 AM [facility] RDW 12.7 11.0 - 15.0 % LAB HEMETOLOGY METHOD 11/05/2024 11:21 AM [facility] Platelets 261 130 - 400 K/mcL LAB HEMETOLOGY METHOD 11/05/2024 11:21 AM [facility] MPV 10.4 7.0 - 11.0 FL LAB HEMETOLOGY METHOD 11/05/2024 11:21 AM [facility] NRBC 0.0 <1.0 % LAB HEMETOLOGY METHOD 11/05/2024 11:21 AM [facility] NRBC Absolute 0.00 <0.10 K/mcL LAB HEMETOLOGY METHOD 11/05/2024 11:21 AM [facility] Neutrophils Relative 73.3 % LAB HEMETOLOGY METHOD 11/05/2024 11:21 AM [facility] Lymphocytes Relative 10.6 % LAB HEMETOLOGY METHOD 11/05/2024 11:21 AM [facility] Monocytes Relative 14.7 % LAB HEMETOLOGY METHOD 11/05/2024 11:21 AM [facility] Eosinophils Relative 0.4 % LAB HEMETOLOGY METHOD 11/05/2024 11:21 AM [facility] Basophils Relative 0.6 % LAB HEMETOLOGY METHOD 11/05/2024 11:21 AM [facility] Immature Granulocytes Relative 0.4 % LAB HEMETOLOGY METHOD 11/05/2024 11:21 AM [facility] Neutrophils Absolute 5.87 1.50 - 7.00 K/mcL LAB HEMETOLOGY METHOD 11/05/2024 11:21 AM [facility] Lymphocytes Absolute 0.85(L) 1.00 - 5.00 K/mcL LAB HEMETOLOGY METHOD 11/05/2024 11:21 AM [facility] Monocytes Absolute 1.18(H) 0.20 - 1.00 K/mcL LAB HEMETOLOGY METHOD 11/05/2024 11:21 AM [facility] Eosinophils Absolute 0.03 0.00 - 0.50 K/mcL LAB HEMETOLOGY METHOD 11/05/2024 11:21 AM [facility] Basophils Absolute 0.05 0.00 - 0.20 K/mcL LAB HEMETOLOGY METHOD 11/05/2024 11:21 AM [facility] Immature Granulocytes Absolute 0.03 0.00 - 0.03 K/mcL LAB HEMETOLOGY METHOD 11/05/2024 11:21 AM [facility] Blood Venous blood specimen / Unknown Venipuncture / Unknown 11/05/2024 5:51 AM EST 11/05/2024 9:43 AM EST us Gloria Preston MD LAB BLOOD ORDERABLES Final Resu lt [facility] [address] [place] [address], [place] [phone] * Magnesium (11/05/2024 5:51 AM EST) [facility] Magnesium 2.0 1.9 - 2.6 mg/dL LAB CHEMISTRY METHOD 11/05/2024 11:42 AM EST [facility] Blood Venous blood specimen / Unknown Venipuncture / Unknown 11/05/2024 5:51 AM EST 11/05/2024 9:43 AM EST us Gloria Preston MD LAB BLOOD ORDERABLES Final Resu lt Performing Organization Address City/[facility]/ZIP Co de Phone Number [facility] [address] [place] [address], [place] [phone] * (ABNORMAL) Comprehensive metabolic panel (11/05/2024 5:51 AM EST) [facility] Sodium 133 133 - 145 mmol/L LAB CHEMISTRY METHOD 11/05/2024 11:44 AM [facility] Potassium 4.1 3.5 - 5.5 mmol/L LAB CHEMISTRY METHOD 11/05/2024 11:44 AM [facility] Chloride 99 96 - 110 mmol/L LAB CHEMISTRY METHOD 11/05/2024 11:44 AM [facility] CO2 24 21 - 32 mmol/L LAB CHEMISTRY METHOD 11/05/2024 11:44 AM [facility] Anion Gap 10 3 - 11 LAB CHEMISTRY METHOD 11/05/2024 11:44 AM [facility] Glucose 92 70 - 100 mg/dL LAB CHEMISTRY METHOD 11/05/2024 11:44 AM [facility] BUN 18 5 - 25 mg/dL LAB CHEMISTRY METHOD 11/05/2024 11:44 AM [facility] Creatinine 0.54(L) 0.70 - 1.30 mg/dL LAB CHEMISTRY METHOD 11/05/2024 11:44 AM [facility] eGFR 98 >=60 mL/min/1. 73m2 LAB CHEMISTRY METHOD 11/05/2024 11:44 AM [facility] Comment:Calculation based on the Chronic Kidney Disease Epidemiology Collaboration (CKD-EPI) equation refit without adjustment for race. BUN/Creatinine Ratio 33.3 LAB CHEMISTRY METHOD 11/05/2024 11:44 AM [facility] Calcium 9.0 8.5 - 10.5 mg/dL LAB CHEMISTRY METHOD 11/05/2024 11:44 AM [facility] AST (SGOT) 17 10 - 42 unit/L LAB CHEMISTRY METHOD 11/05/2024 11:44 AM [facility] ALT (SGPT) 19 10 - 60 unit/L LAB CHEMISTRY METHOD 11/05/2024 11:44 AM [facility] Alkaline Phosphatase 83 42 - 121 unit/L LAB CHEMISTRY METHOD 11/05/2024 11:44 AM [facility] Total Protein 6.6 6.0 - 8.0 g/dL LAB CHEMISTRY METHOD 11/05/2024 11:44 AM [facility] Albumin 2.8(L) 3.2 - 5.0 g/dL LAB CHEMISTRY METHOD 11/05/2024 11:44 AM [facility] Total Bilirubin 1.1 0.0 - 1.4 mg/dL LAB CHEMISTRY METHOD 11/05/2024 11:44 AM [facility] Blood Venous blood specimen / Unknown Venipuncture / Unknown 11/05/2024 5:51 AM EST 11/05/2024 9:43 AM EST us Rami A Ashkar MD LAB BLOOD ORDERABLES Final Resu lt [facility] [address] [place] [address], documented in this encounter Visit Diagnoses Diagnosis Encounter for other general examination documented in this encounter Care Teams Integration Architect Relationship Specialty Start Date End Date Gloria Preston MD [address] [place] [id number] PCP - General Hospitalist Medicine 11/05/24 documented as of this encounter
--- OUTSIDE RECORDS SUMMARY | 2025-04-17 09:44 | XMS_ITS | Patient Health Record ---
Author Organization [facility] Address [address] [place] [address] Care Team Providers Care Drawer Fitter Name Role Phone Robbie Kothari MD Primary Care Provider UnavailRobbie Koo Unavailable [phone] Reason For Referral No Information Medications Medication [...] Problem Status W/U Status Risk Notes Problem [id number] Encounter for screening for malignant neoplasm of colon (Z12.11) Active confirmed Problem [id number] Hx of adenomatous colonic polyps (Z86.010) Active confirmed Problem [id number] Pre-procedural examination (Z01.818) Active confirmed Plan Of Treatment Future Test Test Name Order Date COLONOSCOPY 06/15/2018 Insurance Providers Payer Name Payer Address Payer Phone Subscriber Number Group Number Insured Name Patient Relationship to Insured Coverage Start Date Coverage End Date MEDICARE OF [place] [address] [place] [address] [id number] VAZQUEZ ROCHA Self - patient is the insured [facility] Insurance C/O [facility] [address] [place] [address] [id number] VAZQUEZ ROCHA Self - patient is the insured Medical (General) History Medical History History ICD Code Denies CT,DM,CVA,Lung disease,renal dise ase Hyperlipidemia Colonoscopy 2002-small tubul ar adenoma removed; colonoscopy in 2008 was negative--just diverticulosis and internal hemorrhoids Surgical History Surgery Date(Month/Year) Left inguinal hernia Skin cancers with skin grafts
== END 2025-04-17 09:45 | disposition home or self-care (01) ==
LOC: HO.HPS 09:19
PROVIDERS: PCP Internal Medicine Medical Oncology; Visit Provider Hospitalist
DX: J47.9 Bronchiectasis, uncomplicated (principal); R91.8 Other nonspecific abnormal finding of lung field; R05.3 Chronic cough; A31.9 Mycobacterial infection, unspecified; J41.0 Simple chronic bronchitis
CPT/HCPCS: 99214; G2211

== ENCOUNTER → 2025-04-17 09:18 | Outpatient (BNVA) | payer MEDICARE, SELFPAY | PROVIDERS: PCP Internal Medicine Medical Oncology; Visit Provider Hospitalist | DX: J15.8 Pneumonia due to other specified bacteria (principal); A31.9 Mycobacterial infection, unspecified; J47.9 Bronchiectasis, uncomplicated; J41.0 Simple chronic bronchitis; Z79.2 Long term (current) use of antibiotics; Z79.899 Other long term (current) drug therapy | CPT/HCPCS: 99212 ==

== ENCOUNTER 2025-04-24 09:30 | Outpatient (REF) | payer MEDICARE, SELFPAY ==
--- NOTE | ~2025-04-24 | US_ITS ---
EXAMINATION: US RETROPERITONEUM HISTORY: R33.9 - Retention of urine, unspecified TECHNIQUE: Real-time grayscale ultrasound imaging of the kidneys was performed and images were reviewed. COMPARISON: There are no prior studies available for comparison. FINDINGS: Right kidney: The right kidney measures 11.7 x 5.5 x 6.4 cm. Renal parenchymal echotexture and thickness are normal. There is a 5.8 x 4.5 x 6.5 cm cyst in the interpolar region and a 2.9 x 3.2 x 2.9 cm cyst at the lower pole. There is a 5 x 6 x 5 mm nonobstructing calculus at the upper pole. It is no hydronephrosis. Left Kidney: The left kidney measures 10.5 x 5.8 x 4.7 cm. Renal parenchymal echotexture and thickness are normal. There is an 8 x 6 x 7 mm cyst in the interpolar region. There is no hydronephrosis or renal calculi. The urinary bladder is unremarkable. Bilateral ureteral jets are identified. Before voiding, the urinary bladder measured 13.3 x 10.7 x 11.8 cm, for an estimated volume of 881 mL. After voiding, the urinary bladder measured 9.6 x 10.0 x 9.2 cm, for an estimated volume of 473 mL. The prostate measures 4.7 x 4.2 x 4.5 cm, for an estimated volume of 46.5 mL. US/US retroperitoneal comp IMPRESSION: 1. 6 mm nonobstructing right upper pole renal calculus. 2. Bilateral renal cysts as described. 3. Post void bladder residual of 473 mL. 4. Prostate volume of 46.9 mL. Electronically signed by: Robbie Rosales MD 04/24/2025 10:49 AM EDT
[2025-04-24 09:46] LABS: MANUAL DIFF FLAG NO
--- OUTSIDE RECORDS SUMMARY | 2025-04-24 09:59 | XMS_ITS | Clinical Summary ---
Author Organization [facility] Address [address] [place] [address] [place] [address] Phone Care Team Providers Care Negative Restorer Name Role Phone Unavailable Primary Care Provider [...] Office Visit [facility] [address] [place] [address] Anurag John [...] patient's age to complete this topic Insurance [facility] Medicare
--- OUTSIDE RECORDS SUMMARY | 2025-04-24 09:59 | XMS_ITS | Patient Health Record ---
Author Organization [facility] Address [address] [place] [address] Care Team Providers Care Special Effects Designer Name Role Phone Robbie Kothari MD Primary Care Provider Ana Rosales Unavailable [phone] Allergies Allergen (clinical drug ingredient) Drug/Non Drug [...] W/U Status Risk Notes Problem Atherosclerosis of [place] artery of both lower extremities, with unspecified presence of clinical manifestation (I70.203) Active confirmed Q7(A), Q8(2B), Q9(1B,2C) Vital Signs Blood pressure diastolic 58 mm Hg 03/28/2025 Height 6 ft 4 in in 03/28/2025 Blood pressure systolic 114 mm Hg 03/28/2025 Weight 150 lbs 03/28/2025 BMI 18.26 kg/m2 03/28/2025 Encounters Encounter Location Date Provider Diagnosis [address] [address] 06/28/2024 Ana Perica Tinea unguium B35.1 ; Pain in right toe(s) M79.674 and Pain in left toe(s) M79.[address] [address] 09/27/2024 Ana Perica Tinea unguium B35.1 ; Pain in right toe(s) M79.674 and Pain in left toe(s) M79.[address] [address] 12/27/2024 Ana Perica Tinea unguium B35.1 ; Pain in right toe(s) M79.674 and Pain in left toe(s) M79.[address] [address] 03/28/2025 Ana Perica Atherosclerosis of [place] artery of both lower extremities, with unspecified [...] unguium (ICD-10 - B35.1) 03/28/2025 Atherosclerosis of [place] artery of both lower extremities, with unspecified [...] Details Provider Name:Ana garduno, 07/04/2025 09:15:00 AM, [address] [place] [address], [phone], Insurance Providers Payer Name Payer Address Payer Phone Subscriber Number Group Number Insured Name Patient Relationship to Insured Coverage Start Date Coverage End Date [facility] Medicare-309 [address] [address] [place] [phone] [id number] Freeman King Self - patient is the insured Medical (General) History Medical History History ICD Code Measles Mumps Chicken pox Stroke Surgical History Surgery Date(Month/Year) hernia colonoscopy Hospitalization History Reason Date(Month/[facility]2024
--- OUTSIDE RECORDS SUMMARY | 2025-04-24 09:59 | XMS_ITS | Patient Health Record ---
Author Organization Robbie Kothari III, MD Address [address] [place] [address] Care Team Providers Care Cork Tile Floor Layer Name Role Phone Robbie Kothari Primary Care Provider [phone] Allergies Allergen (clinical drug ingredient) Drug/Non Drug Allergy documented on EMR Reaction Allergy Type Onset Date Status No Known Drug Allergy Unknown Drug Allergy Active No Known Food Allergy Unknown Drug Allergy Active Results Component Value Reference Range Notes Hold Lt Blue - Possible Coag Reviewed date:10/30/2024 09:55:19 AM Interpretation: Performing Lab:[facility], [address] [place] [phone] Notes/Report: Hold Lt Blue - Possible Coag SEE NOTE Specimen will be held untested for 4 hours. Call Hematology if testing is desired. Comprehensive Met. Panel Reviewed date:10/30/2024 09:55:19 AM Interpretation: Performing Lab:[facility], [address] [place] [phone] Notes/Report: Sodium 131 135-145 mmol/L Potassium 4.2 [...] Reviewed date:10/30/2024 09:55:19 AM Interpretation: Performing Lab:[address] [address] Notes/Report: Magnesium 1.5 1.6-2.6 mg/dL Troponin-I High Sensitivity Reviewed date:10/30/2024 09:55:19 AM Interpretation: Performing Lab:[facility], [address] [place] [phone] Notes/Report: Troponin-I High Sensitivity 3.1 <3.5-35.0 ng/L The Duran high sensitivity Troponin-I results should be used in conjunction with other diagnostic information such as ECG, clinical observations and information, and patient symptoms to aid in the diagnosis of CT. SARS-CoV2/FLU/RSV Reviewed date:10/30/2024 09:55:19 AM Interpretation: Performing Lab:[address] [address] Notes/Report: Influenza A PCR NEGATIVE Negative Influenza [...] by authorized laboratories. Testing performed on the RoomRevealXpert utilizing real-time RT-PCR. All SARS CoV2 and positive influenza A/B results are reported to [facility]. CT head for stroke Reviewed date:10/30/2024 09:55:19 AM Interpretation: Performing Lab: Notes/Report: [address] [address] [address] Scan Report Signed Patient: Freeman King MR#: [id number] [birth year] : 1940 Acct:[id number] Age/Sex: 84 / M ADM Date: 10/27/24 Loc: HO.ED Attending Dr: Ordering Physician: Alejandrina Mazariegos Date of Service: 10/27/24 Procedure(s): CT head for STROKE Accession Number(s): [id number] cc: Robbie Kothari MD; Alejandrina Mazariegos Report Number: [id number]: Total DLP = 799.00 mGy-cm EXAMINATION: CT [...] lobe. There is resultant mass effect and yhkf-hb-ighio midline shift of 3 mm. There is [...] atrium. 3. There is 3 mm of hlcs-qg-pjnry midline shift. No impending herniation at this time. This critical result was discussed with Alejandrina Mazariegos at 12:11 PM, on 10/27/2024 via phone call. Electronically signed by: Zohaib Brown MD 10/27/2024 12:14 PM [facility] Dictated By: Zohaib Brown MD Signed By: <Electronically signed by Zohaib Brown MD in OV> 10/27/24 1214 DD/ 1148 TD/TT: 10/27/24 1156 Java Developer Analyst: [place] [id number] [address] Scan Report Signed Patient: Jeremiah King MR#: [id number] [birth year] : 1940 Acct:[id number] Age/Sex: 84 / M ADM Date: 10/27/24 Loc: HO.ED Attending Dr: Ordering Physician: Alejandrina Mazariegos Date of Service: 10/27/24 Procedure(s): CT hea d for STROKE Accession Number(s): [id number] cc: Robbie Kothari MD; Alejandrina Mazariegos Report [...] There is resultant m ass effect and ikfg-lx-bdocf midline shift of 3 mm. There is [...] atrium. 3. There is 3 mm of bqhj-ng-wymtu midline shift. No impending herniation at this time. This critical result was discussed with Alejandrina Mazariegos at 12:11 PM, on 10/27/2024 via phone call. Electronically gurpreet d by: Zohaib Brown MD 10/27/2024 12:14 PM [facility] Dictated By: Zohaib Brown MD Signed By: <Electronically signed by Zohaib Brown MD in OV> 10/27/24 1214 DD/ 1148 TD/TT: 10/27/24 1156 Java Developer Analyst: CT cervical spine wo con Reviewed date:10/30/2024 09:55:19 AM Interpretation: Performing Lab: Notes/Report: [address] [address] [address] Scan Report Signed Patient: Freeman King MR#: [id number] [birth year] : 1940 Acct:[id number] Age/Sex: 84 / M ADM Date: 10/27/24 Loc: HO.ED Attending Dr: Ordering Physician: Alejandrina Mazariegos Date of Service: 10/27/24 Procedure(s): CT cervical spine wo IV con Accession Number(s): [id number] cc: Robbie Kothari MD; Alejandrina Mazariegos Report Number: [id number]: Total DLP = 376.00 mGy-cm EXAMINATION: CT [...] by: Zohaib Brown MD 10/27/2024 02:23 PM [facility] Dictated By: Zhoaib Brown MD Signed By: <Electronically signed by Zohaib Brown MD in OV> 10/27/24 1423 DD/ 1212 TD/TT: 10/27/24 1334 Java Developer Analyst: [place] [address] [place] Scan Report Signed Patient: Jeremiah King MR#: [id number] 30 : 1940 Acct:[id number] Age/Sex: 84 / M ADM Date: 10/27/24 Loc: .ED Attending Dr: Ordering Physician: Alejandrina Mazariegos Date of Service: 10/27/24 Procedure(s): CT cer vical spine wo IV con Accession Number(s): [id number] cc: Robbie Kothari MD; Alejandrina Mazariegos Report [...] by: Zohaib Brown MD 10/27/2024 02:23 PM [facility] Dictated By: Zohaib Brown MD Signed By: <Electronically signed by Zohaib Brown MD in OV> 10/27/24 1423 DD/ 1212 TD/TT: 10/27/24 1334 Java Developer Analyst: XR chest 1V Reviewed date:10/30/2024 09:55:19 AM Interpretation: Performing Lab: Notes/Report: [address] [address] XRay Report Signed Patient: Freeman King MR#: [id number] 30 : 1940 Acct:[id number] Age/Sex: 84 / M ADM Date: 10/27/24 Loc: HO.ED Attending Dr: Ordering Physician: Alejandrina Mazariegos Date of Service: 10/27/24 Procedure(s): XR chest 1V Accession Number(s): [id number] cc: Robbie Kothari MD; Alejandrina Mazariegos EXAMINATION: [...] by: Zohaib Brown MD 10/27/2024 01:41 PM [facility] Dictated By: Zohaib Brown MD Signed By: <Electronically signed by Zohaib Brown MD in OV> 10/27/24 1341 DD/ 1127 TD/TT: 10/27/24 1328 Java Developer Analyst: [address] [address] XRay Report Signed Patient: Jeremiah King MR#: [id number] 30 : 1940 Acct:[id number] Age/Sex: 84 / M ADM Date: 10/27/24 Loc: HO.ED Attending Dr: Ordering Physician: Alejandrina Mazariegos Date of Service: 10/27/24 Procedure(s): XR chest 1V Accession Number(s): [id number] cc: Robbie Kothari MD; Alejandrina Mazariegos EXAMINATION: [...] by: Zohaib Brown MD 10/27/2024 01:41 PM [facility] Dictated By: Zohaib Brown MD Signed By: <Electronically signed by Zohaib Brown MD in OV> 10/27/24 1341 DD/ 1127 TD/TT: 10/27/24 1328 Java Developer Analyst: XR chest 2V Reviewed date:12/16/2024 03:30:40 PM Interpretation: Performing Lab: Notes/Report: [address] [address] XRay Report Signed Patient: Freeman Kign MR#: [id number] [birth year] : 1940 Acct:[id number] Age/Sex: 84 / M ADM Date: 12/02/24 Loc: HO.XRAY Attending Dr: Robbie Kothari MD Ordering Physician: Denilson Minor MD Date of Service: 12/02/24 Procedure(s): XR chest 2V Accession Number(s): [id number] cc: Robbie Kothari MD; Denilson Minor MD [...] 12/02/24 1150 DD/ 1042 TD/TT: 12/02/24 1052 Java Developer Analyst: [place] [address] XRay Report Signed Patient: Jeremiah King MR#: [id number] [birth year] : 1940 Acct:[id number] Age/Sex: 84 / M ADM Date: 12/02/24 Loc: JILLIAN Attending Dr: Robbie Kothari MD Ordering Physician: Denilson Minor MD Date of Service: 12/02/24 Procedure(s): XR chest 2V Accession Number(s): [id number] cc: Robbie Kothari MD; Denilson Minor MD [...] 12/02/24 1150 DD/ 1042 TD/TT: 12/02/24 1052 Java Developer Analyst: Complete Blood Count Auto Di ff Reviewed date:12/16/2024 03:30:40 PM Interpretation: Performing Lab:[facility], [address] [place] [phone] Notes/Report: White Blood Count 5.2 4.8-10.8 X10*3/uL [...] Reviewed date:12/16/2024 03:30:40 PM Interpretation: Performing Lab:[address] [address] Notes/Report: Sodium 136 135-145 mmol/L Potassium 3.9 [...] Magnesium Reviewed date:12/16/2024 03:30:40 PM Interpretation: Performing Lab:[facility], [address] [place] [phone] Notes/Report: Magnesium 1.8 1.6-2.6 mg/dL XR chest 2V Reviewed date:12/16/2024 03:30:40 PM Interpretation: Performing Lab: Notes/Report: [address] [address] XRay Report Signed Patient: Freeman King MR#: [id number] [birth year] : 1940 Acct:[id number] Age/Sex: 84 / M ADM Date: 12/16/24 Loc: JILLIAN Attending Dr: Denilson Minor MD Ordering Physician: Denilson Minor MD Date of Service: 12/16/24 Procedure(s): XR chest 2V Accession Number(s): [id number] cc: Robbie Kothari MD; Denilson Minor MD [...] 12/16/24 1138 DD/ 1048 TD/TT: 12/16/24 1110 Java Developer Analyst: [place] [address] XRay Report Signed Patient: Jeremiah King MR#: [id number] [birth year] : 1940 Acct:[id number] Age/Sex: 84 / M ADM Date: 12/16/24 Loc: .XRAY Attending Dr: Denilson Minor MD Ordering Physician: Denilson Minor MD Date of Service: 12/16/24 Procedure(s): XR chest 2V Accession Number(s): [id number] cc: Robbie Kothari MD; Denilson Minor MD [...] 12/16/24 1138 DD/ 1048 TD/TT: 12/16/24 1110 Java Developer Analyst: Complete Blood Count Auto Di ff Reviewed date:12/30/2024 08:37:25 PM Interpretation: Performing Lab:[facility], [address] [place] [phone] Notes/Report: White Blood Count 6.5 4.8-10.8 X10*3/uL [...] NRBC Abs Auto 0.000 0.0-0.012 X10*3/uL Comprehensive [place]. Panel Fa Reviewed date:12/30/2024 08:37:25 PM Interpretation: Performing Lab:[facility], [address] [place] [phone] Notes/Report: Sodium 135 135-145 mmol/L Potassium 4.2 [...] Panel Reviewed date:12/30/2024 08:37:25 PM Interpretation: Performing Lab:[facility], [address] [place] [phone] Notes/Report: Triglycerides 84 <150 mg/dL Desirable Triglyceride: [...] Antigen Reviewed date:12/30/2024 08:37:25 PM Interpretation: Performing Lab:[facility], [address] [place] [phone] Notes/Report: Prostate Specific Antigen 2.95 <0.05-4.0 ng/mL PSA methodology: Duran Alinity i Chemiluminescent Microparticle Immunoassay (CMIA) Complete Blood Count Auto Di ff Reviewed date:12/30/2024 08:37:25 PM Interpretation: Performing Lab:[facility], [address] [place] [phone] Notes/Report: White Blood Count 9.1 4.8-10.8 X10*3/uL [...] te Reviewed date:12/30/2024 08:37:25 PM Interpretation: Performing Lab:[facility], [address] [place] [phone] Notes/Report: Erythrocyte Sedimentation Rate 60 0-15 MM/HR Patients with polycythemia and many hemoglobin abnormalities may have depressed sed rates whereas patients with anemia may have elevated sed rates. Partial Thromboplastin Time Reviewed date:12/30/2024 08:37:25 PM Interpretation: Performing Lab:[facility], [address] [place] [phone] Notes/Report: Partial Thromboplastin Time 33.0 26.0-36.8 SEC For information regarding the monitoring of direct thrombin inhibitors, please refer to Pharmacy. Comprehensive Met. Panel Reviewed date:12/30/2024 08:37:25 PM Interpretation: Performing Lab:[facility], [address] [place] [phone] Notes/Report: Sodium 132 135-145 mmol/L Potassium 4.9 [...] Acid Reviewed date:12/30/2024 08:37:25 PM Interpretation: Performing Lab:[facility], [address] [place] [phone] Notes/Report: Lactic Acid 1.0 0.5-2.0 mmol/L Uric Acid Reviewed date:12/30/2024 08:37:25 PM Interpretation: Performing Lab:[facility], [address] [place] [phone] Notes/Report: Uric Acid 4.1 3.4-7.0 mg/dL Magnesium Reviewed date:12/30/2024 08:37:25 PM Interpretation: Performing Lab:[facility], [address] [place] [phone] Notes/Report: Magnesium 1.7 1.6-2.6 mg/dL Troponin-I High Sensitivity Reviewed date:12/30/2024 08:37:25 PM Interpretation: Performing Lab:[facility], [address] [place] [phone] Notes/Report: Troponin-I High Sensitivity 3.4 <3.5-35.0 ng/L The Duran high sensitivity Troponin-I results should be used in conjunction with other diagnostic information such as ECG, clinical observations and information, and patient symptoms to aid in the diagnosis of CT. C Reactive Protein Reviewed date:12/30/2024 08:37:25 PM Interpretation: Performing Lab:[facility], [address] [place] [phone] Notes/Report: C Reactive Protein 4.85 < or = 0.50 mg/dL B Type Natriuretic Peptide Reviewed date:12/30/2024 08:37:25 PM Interpretation: Performing Lab:[facility], [address] [place] [phone] Notes/Report: B Type Natriuretic Peptide 82 <100 pg/mL Lipase Reviewed date:12/30/2024 08:37:25 PM Interpretation: Performing Lab:[facility], [address] [place] [phone] Notes/Report: Lipase 43 8-78 U/L UA CC w/rflx Micro + Cult Reviewed date:12/30/2024 08:37:25 PM Interpretation: Performing Lab:[facility], [address] [place] [phone] Notes/Report: Urine, Clean Catch Color Urine Yellow Appearance Urine Clear PH 7.5 5.0-9.0 Glucose Urine UA Negative Negative mg/dL Urine Blood Negative Negative Specific [place] - Urine >= 1.030 1.005-1.025 Urine Protein Negative Neg-Trace mg/dL Urine Ketones Negative Negative mg/dL Nitrite Urine Negative Negative Leukocyte Esterase Urine Negative Negative SARS-CoV2/FLU/RSV Reviewed date:12/30/2024 08:37:25 PM Interpretation: Performing Lab:[address] [phone] Notes/Report: Influenza A PCR NEGATIVE Negative Influenza [...] by authorized laboratories. Testing performed on the [employer] GeneXpert utilizing real-time RT-PCR. All SARS CoV2 and positive influenza A/B results are reported to [facility]. Blood Culture (First) Reviewed date:01/14/2025 08:40:47 PM Interpretation: Performing Lab:[facility], [address] [place] [phone] Notes/Report: Blood Culture (First) No growth after 5 days. Blood Culture (Second) Reviewed date:01/14/2025 08:40:47 PM Interpretation: Performing Lab:[address] [address] Notes/Report: Blood Culture (Second) No growth after [address] angio head neck Reviewed date:12/30/2024 08:37:25 PM Interpretation: Performing Lab: Notes/Report: [address] [address] [address] Scan Report Signed Patient: Freeman King MR#: [id number] [birth year] : 1940 Acct:[id number] Age/Sex: 84 / M ADM Date: 12/30/24 Loc: HO.ED Attending Dr: Ordering Physician: Rahul Zamora MD Date of Service: 12/30/24 Procedure(s): CT angio head neck Accession Number(s): [id number] cc: Robbie Kothari MD; Rahul Zamora MD Report Number: [id number]: Total DLP = 1652.00 mGy-cm EXAMINATION: CTA [...] intimal flap. Superior cerebellar arteries are patent. obiee consultant: Right P1 segment: Hypoplastic/atretic. No focal stenosis. [...] 12/30/24 1225 DD/ 1133 TD/TT: 12/30/24 1155 Java Developer Analyst: [address] [address] [address] Scan Report Signed Patient: Jeremiah King MR#: [id number] [birth year] : 1940 Acct:[id number] Age/Sex: 84 / M ADM Date: 12/30/24 Loc: HO.ED Attending Dr: Ordering Physician: Rahul Zamora MD Date of Service: 12/30/24 Procedure(s): CT ang io head neck Accession Number(s): [id number] cc: Robbie Kothari MD; Rahul Zamora MD [...] intimal flap. Superior cerebellar arteries are patent. obiee consultant: Right P1 segment: Hypoplastic/atretic. No focal stenosis. [...] 12/30/24 1225 DD/ 1133 TD/TT: 12/30/24 1155 Java Developer Analyst: XR wrist RT 2V Reviewed date:12/30/2024 08:37:25 PM Interpretation: Performing Lab: Notes/Report: [address] [address] XRay Report Signed Patient: Freeman King MR#: [id number] [birth year] : 1940 Acct:[id number] Age/Sex: 84 / M ADM Date: 12/30/24 Loc: HO.ED Attending Dr: Ordering Physician: Rahul Zamora MD Date of Service: 12/30/24 Procedure(s): XR wrist RT 2V Accession Number(s): [id number] cc: Robbie Kothari MD; Rahul Zamora MD [...] 12/30/24 1300 DD/ 1243 TD/TT: 12/30/24 1255 Java Developer Analyst: [address] [address] XRay Report Signed Patient: Jeremiah King MR#: [id number] [birth year] : 1940 Acct:[id number] Age/Sex: 84 / M ADM Date: 12/30/24 Loc: HO.ED Attending Dr: Ordering Physician: Rahul Zamora MD Date of Service: 12/30/24 Procedure(s): XR wri st RT 2V Accession Number(s): [id number] cc: Robbie Kothari MD; Rahul Zamora MD [...] 12/30/24 1300 DD/ 1243 TD/TT: 12/30/24 1255 Java Developer Analyst: XR chest 1V Reviewed date:12/30/2024 08:37:25 PM Interpretation: Performing Lab: Notes/Report: [address] [address] XRay Report Signed Patient: Freeman King MR#: [id number] [birth year] : 1940 Acct:[id number] Age/Sex: 84 / M ADM Date: 12/30/24 Loc: .ED Attending Dr: Ordering Physician: Rahul Zamora MD Date of Service: 12/30/24 Procedure(s): XR chest 1V Accession Number(s): [id number] cc: Robbie Kothari MD; Rahul Zamora MD [...] 12/30/24 1210 DD/ 1031 TD/TT: 12/30/24 1149 Java Developer Analyst: [place] [address] XRay Report Signed Patient: Jeremiah King MR#: [id number] [birth year] : 1940 Acct:[id number] Age/Sex: 84 / M ADM Date: 12/30/24 Loc: .ED Attending Dr: Ordering Physician: Rahul Zamora MD Date of Service: 12/30/24 Procedure(s): XR chest 1V Accession Number(s): [id number] cc: Robbie Kothari MD; Rahul Zamora MD [...] 12/30/24 1210 DD/ 1031 TD/TT: 12/30/24 1149 Java Developer Analyst: XR hand RT min 3V Reviewed date:12/30/2024 08:37:25 PM Interpretation: Performing Lab: Notes/Report: [address] [address] XRay Report Signed Patient: Freeman King MR#: [id number] [birth year] : 1940 Acct:[id number] Age/Sex: 84 / M ADM Date: 12/30/24 Loc: HO.ED Attending Dr: Ordering Physician: Rahul Zamora MD Date of Service: 12/30/24 Procedure(s): XR hand RT min 3V Accession Number(s): [id number] cc: Robbie Kothari MD; Rahul Zamora MD [...] 12/30/24 1301 DD/ 1243 TD/TT: 12/30/24 1255 Java Developer Analyst: [address] [address] XRay Report Signed Patient: Jeremiah King MR#: [id number] [birth year] : 1940 Acct:[id number] Age/Sex: 84 / M ADM Date: 12/30/24 Loc: HO.ED Attending Dr: Ordering Physician: Rahul Zamora MD Date of Service: 12/30/24 Procedure(s): XR camacho d RT min 3V Accession Number(s): [id number] cc: Robbie Kothari MD; Rahul Zamora MD [...] 12/30/24 1301 DD/ 1243 TD/TT: 12/30/24 1255 Java Developer Analyst: Renae Coates Hematolo gy Reviewed date:01/01/2025 10:45:53 AM Interpretation: Performing Lab:[facility], [address] [place] [phone] Notes/Report: Hold Lav - Possible Hematology SEE NOTE Specimen will be held untested for 8 hours. Call Hematology if testing is desired. Basic Metabolic Panel Reviewed date:01/01/2025 10:45:53 AM Interpretation: Performing Lab:[facility], [address] [place] [phone] Notes/Report: Sodium 135 135-145 mmol/L Potassium 4.2 [...] ff Reviewed date:01/14/2025 08:40:47 PM Interpretation: Performing Lab:[facility], [address] [place] [phone] Notes/Report: White Blood Count 7.5 4.8-10.8 X10*3/uL [...] Coag Reviewed date:01/14/2025 08:40:47 PM Interpretation: Performing Lab:[facility], [address] [place] [phone] Notes/Report: Hold Lt Blue - Possible Coag SEE NOTE Specimen will be held untested for 4 hours. Call Hematology if testing is desired. Liver Panel Reviewed date:01/14/2025 08:40:47 PM Interpretation: Performing Lab:[facility], [address] [place] [phone] Notes/Report: Bilirubin Total 1.0 0.0-1.0 mg/dL Bilirubin Direct 0.3 0.0-0.5 mg/dL Aspartate Amino Transferase 28 5-37 U/L Slight Hemolysis.Interpret result with caution. Alanine Aminotransferase 12 0-40 U/L Total Protein 7.4 6.5-8.0 g/dL Albumin Level 3.6 3.5-5.0 g/dL Alkaline Phosphatase 70 39-117 U/L Basic Metabolic Panel Reviewed date:01/14/2025 08:40:47 PM Interpretation: Performing Lab:[facility], [address] [place] [phone] Notes/Report: Sodium 130 135-145 mmol/L Potassium 4.4 [...] Acid Reviewed date:01/14/2025 08:40:47 PM Interpretation: Performing Lab:[facility], [address] [place] [address] Notes/Report: Lactic Acid 0.8 0.5-2.0 mmol/L Magnesium Reviewed date:01/14/2025 08:40:47 PM Interpretation: Performing Lab:[address] [address] Notes/Report: Magnesium 1.8 1.6-2.6 mg/dL Troponin-I High Sensitivity Reviewed date:01/14/2025 08:40:47 PM Interpretation: Performing Lab:[address] [address] Notes/Report: Troponin-I High Sensitivity 3.3 <3.5-35.0 ng/L The Duran high sensitivity Troponin-I results should be used in conjunction with other diagnostic information such as ECG, clinical observations and information, and patient symptoms to aid in the diagnosis of CT. C Reactive Protein Reviewed date:01/14/2025 08:40:47 PM Interpretation: Performing Lab:[address] [address] Notes/Report: C Reactive Protein 13.61 < or = 0.50 mg/dL B Type Natriuretic Peptide Reviewed date:01/14/2025 08:40:47 PM Interpretation: Performing Lab:[facility], [address] [place] [phone] Notes/Report: B Type Natriuretic Peptide 53 <100 pg/mL Procalcitonin Reviewed date:01/14/2025 08:40:47 PM Interpretation: Performing Lab:[facility], [address] [place] [phone] Notes/Report: Procalcitonin 0.04 Procalcitonin (PCT) Reference Range: [...] results from different laboratories and methodologies. References: [employer]/Society of Critical Care [...] for [facility]. http://www.accessda ta.fda.fov/cdrh_doc s/reviews/E410189.p df. Published September 2004. Accessed February 2017. Gram stain Reviewed date:01/17/2025 05:36:47 AM Interpretation: Performing Lab:[facility], [address] [place] [phone] Notes/Report: Gram stain Gram stain results: Gram stain 4+ polys Gram stain 1+ epithelial cells Gram stain 4+ red blood cells Gram stain 1+ Gram-positive cocci UA CC w/rflx Micro + Cult Reviewed date:01/14/2025 08:40:47 PM Interpretation: Performing Lab:[address] [address] Notes/Report: Urine, Catheterized Color Urine Yellow Appearance Urine Clear PH 6.0 5.0-9.0 Glucose Urine UA Negative Negative mg/dL Urine Blood Negative Negative Specific [place] - Urine 1.020 1.005-1.025 Urine Protein Negative Neg-Trace mg/dL Urine Ketones Negative Negative mg/dL Nitrite Urine Negative Negative Leukocyte Esterase Urine Negative Negative SARS-CoV2/FLU/RSV Reviewed date:01/14/2025 08:40:47 PM Interpretation: Performing Lab:[address] [address] Notes/Report: Influenza A PCR NEGATIVE Negative Influenza [...] by authorized laboratories. Testing performed on the [employer] GeneXpert utilizing real-time RT-PCR. All SARS CoV2 and positive influenza A/B results are reported to [facility]. Blood Culture (First) Reviewed date:02/12/2025 08:15:10 PM Interpretation: Performing Lab:[facility], [address] [place] [phone] Notes/Report: Blood Culture (First) No growth after 5 days. Blood Culture (Second) Reviewed date:02/12/2025 08:15:10 PM Interpretation: Performing Lab:[address] [phone] Notes/Report: Blood Culture (Second) No growth after 5 days. Sputum Culture Reviewed date:01/17/2025 05:36:47 AM Interpretation: Performing Lab:[facility], [address] [place] [phone] Notes/Report: Sputum Culture BAP Sputum Culture 2+ Mixed respiratory ramon. CT chest wo con Reviewed date:01/14/2025 08:40:47 PM Interpretation: Performing Lab: Notes/Report: [address] [address] [address] Scan Report Signed Patient: Freeman King MR#: [id number] [birth year] : 1940 Acct:[id number] Age/Sex: 84 / M ADM Date: 01/13/25 Loc: .S3 358-[address]: Tommy Rodriguez MD Ordering Physician: Linette Brown Date of Service: 01/13/25 Procedure(s): CT chest wo IV con Accession Number(s): [id number] cc: Linette Brown; Robbie Kothari MD Report Number: [id number]: Total DLP = 336.00 mGy-cm CLINICAL HISTORY: Pt with hemoptysis, ?RUL and LLL pneumonia CT chest without contrast Comparison: CT/REG/HI/SR - CT CHEST WO IV CON - [...] OV> 01/13/25 174 DD/ 45 TD/TT: 01/13/251745 Java Developer Analyst: [address] [address] [address] Scan Report Signed Patient: Jeremiah King MR#: [id number] 30 : 1940 Acct:[id number] Age/Sex: 84 / M ADM Date: 01/13/25 Loc: HO.S3 358-[address]: Tommy Rodriguez MD Ordering Physician: Linette Brown Date of Service: 01/13/25 Procedure(s): CT yur[address] st wo IV con Accession Number(s): [id number] cc: Linette Brown; Robbie Kothari MD Report [...] OV> 01/13/251746 DD/ 1746 TD/TT: 01/13/25 174 Java Developer Analyst: CT head/brain wo con Reviewed date:01/14/2025 08:40:47 PM Interpretation: Performing Lab: Notes/Report: [address] [address] [address] Scan Report Signed Patient: Freeman King MR#: [id number] [birth year] : 1940 Acct:[id number] Age/Sex: 84 / M ADM Date: 01/13/25 Loc: HO.ED Attending Dr: Ordering Physician: Taras Spencer MD Date of Service: 01/13/25 Procedure(s): CT head/brain wo IV con Accession Number(s): [id number] cc: Robbie Kothari MD; Taras Spencer MD Report Number: [id number]: Total DLP = 726.00 mGy-cm EXAMINATION: CT [...] 01/13/25 1235 DD/ 1215 TD/TT: 01/13/25 1226 Java Developer Analyst: [address] [address] [address] Scan Report Signed Patient: Jeremiah King MR#: [id number] 30 : 1940 Acct:[id number] Age/Sex: 84 / M ADM Date: 01/13/25 Loc: HO.ED Attending Dr: Ordering Physician: Taras Spencer MD Date of Service: 01/13/25 Procedure(s): CT head/brain wo IV con Accession Number(s): [id number] cc: Robbie Kothari MD; Taras Spencer MD [...] 01/13/25 1235 DD/ 1215 TD/TT: 01/13/25 1226 Java Developer Analyst: XR chest 1V Reviewed date:01/14/2025 08:40:47 PM Interpretation: Performing Lab: Notes/Report: [address] [address] XRay Report Signed Patient: Freeman King MR#: [id number] 30 : 1940 Acct:[id number] Age/Sex: 84 / M ADM Date: 01/13/25 Loc: HO.ED Attending Dr: Ordering Physician: Taras Spencer MD Date of Service: 01/13/25 Procedure(s): XR chest 1V Accession Number(s): [id number] cc: Robbie Kothari MD; Taras Spencer MD [...] 01/13/25 1228 DD/ 1222 TD/TT: 01/13/25 1222 Java Developer Analyst: [address] [address] XRay Report Signed Patient: Jeremiah King MR#: [id number] [birth year] : 1940 Acct:[id number] Age/Sex: 84 / M ADM Date: 01/13/25 Loc: HO.ED Attending Dr: Ordering Physician: Taras Spencer MD Date of Service: 01/13/25 Procedure(s): XR chest 1V Accession Number(s): [id number] cc: Robbie Kothari MD; Taras Spencer MD [...] 01/13/25 1228 DD/ 1222 TD/TT: 01/13/25 1222 Java Developer Analyst: Hold Lav - Possible Hematolo gy Reviewed date:01/14/2025 08:40:46 PM Interpretation: Performing Lab:[facility], [address] [place] [address] Notes/Report: Hold Lav - Possible Hematology SEE NOTE Specimen will be held untested for 8 hours. Call Hematology if testing is desired. Basic Metabolic Panel Reviewed date:01/14/2025 08:40:47 PM Interpretation: Performing Lab:[facility], [address] [place] [address] Notes/Report: Sodium 130 135-145 mmol/L Potassium 4.0 [...] Reviewed date:01/14/2025 08:40:47 PM Interpretation: Performing Lab:[address] [address] Notes/Report: Osmolality Urine [phone] mosm/kg Sodium Urine Random Reviewed date:01/14/2025 08:40:47 PM Interpretation: Performing Lab:[address] [address] Notes/Report: Sodium Urine Random 93.0 Vancomycin Random Reviewed date:01/14/2025 08:40:47 PM Interpretation: Performing Lab:[address] [address] Notes/Report: Vancomycin Random 9.3 15-20 mcg/mL Complete Blood Count Auto Di ff Reviewed date:01/15/2025 06:45:37 AM Interpretation: Performing Lab:[address] [address] Notes/Report: White Blood Count 5.0 4.8-10.8 X10*3/uL [...] Reviewed date:01/17/2025 05:36:47 AM Interpretation: Performing Lab:[address] [address] Notes/Report: Hemoglobin 11.9 14.0-18.0 g/dl Hematocrit 33.2 42.0-52.0 % Basic Metabolic Panel Reviewed date:01/15/2025 06:45:37 AM Interpretation: Performing Lab:[address] [address] Notes/Report: Sodium 135 135-145 mmol/L Potassium 3.8 [...] Reviewed date:01/17/2025 05:36:47 AM Interpretation: Performing Lab:[address] [address] Notes/Report: Hold Lav - Possible Hematology SEE NOTE Specimen will be held untested for 8 hours. Call Hematology if testing is desired. Creatinine Reviewed date:01/17/2025 05:36:47 AM Interpretation: Performing Lab:[facility], [address] [place] [address] Notes/Report: Creatinine 0.77 0.5-1.4 mg/dL Creatinine Clr [...] Reviewed date:02/26/2025 07:54:27 AM Interpretation: Performing Lab:[address] [address] Notes/Report: White Blood Count 6.6 4.8-10.8 X10*3/uL [...] NRBC Abs Auto 0.000 0.0-0.012 X10*3/uL Comprehensive [place]. Panel Fa st Reviewed date:02/26/2025 07:54:27 AM Interpretation: Performing Lab:[facility], [address] [place] [address] Notes/Report: Sodium 135 135-145 mmol/L Potassium 4.3 [...] Panel Reviewed date:02/26/2025 07:54:27 AM Interpretation: Performing Lab:[facility], [address] [place] [address] Notes/Report: Triglycerides 58 <150 mg/dL Desirable Triglyceride: [...] date:02/26/2025 07:54:27 AM Interpretation: Performing Lab: Notes/Report: [address] [address] XRay Report Signed Patient: Freeman King MR#: [id number] [birth year] : 1940 Acct:[id number] Age/Sex: 85 / M ADM Date: 02/23/25 Loc: HO.KIRTIAY Attending Dr: Denilson Minor MD Ordering Physician: Denilson Minor MD Date of Service: 02/23/25 Procedure(s): XR chest 2V Accession Number(s): [id number] cc: Robbie Kothari MD; Denilson Minor MD [...] OV> 02/23/25 0853 DD/ 6 TD/TT: 02/23/25835 Java Developer Analyst: [place] [address] XRay Report Signed Patient: Jeremiah King MR#: [id number] [birth year] : 1940 Acct:[id number] Age/Sex: 85 / M ADM Date: 02/23/25 Loc: HO.XRAY Attending Dr: Denilson Minor MD Ordering Physician: Denilson Minor MD Date of Service: 02/23/25 Procedure(s): XR chest 2V Accession Number(s): [id number] cc: Robbie Kothari MD; Denilson Minor MD [...] 02/23/25 0853 DD/ 6 TD/TT: 02/23/25 0836 Java Developer Analyst: XR chest 2V Reviewed date:04/15/2025 07:11:05 PM Interpretation: Performing Lab: Notes/Report: [address] [address] XRay Report Signed Patient: Freeman King MR#: [id number] [birth year] : 1940 Acct:[id number] Age/Sex: 85 / M ADM Date: 04/12/25 Loc: JILLIAN Attending Dr: Denilson Minor MD Ordering Physician: Denilson Minor MD Date of Service: 04/12/25 Procedure(s): XR chest 2V Accession Number(s): [id number] cc: Robbie Kothari MD; Denilson Minor MD [...] 04/12/25 1430 DD/ 1411 TD/TT: 04/12/25 1426 Java Developer Analyst: [address] [address] XRay Report Signed Patient: Jeremiah King MR#: [id number] [birth year] : 1940 Acct:[id number] Age/Sex: 85 / M ADM Date: 04/12/25 Loc: JILLIAN Attending Dr: Denilson Minor MD Ordering Physician: Denilson Minor MD Date of Service: 04/12/25 Procedure(s): XR chest 2V Accession Number(s): [id number] cc: Robbie Kothari MD; Denilson Minor MD [...] 04/12/25 1430 DD/ 1411 TD/TT: 04/12/25 1426 Java Developer Analyst: Reason For Referral Reason Urgent Referral Requ est Evaluate and Treat ? Catheter Can not tolerate tamsulosin Diagnosis 1 Benign prostatic hyp erplasia with lower urinary tract symptoms (N40.1) Diagnosis 2 Nocturia (R35.1) Referral Organization Robbie Kothari III, MD Referring Provider First Name Robbie Referring Provider Last Name Saniya Referring Provider Speciality Internal M edicine Referred Provider [facility] er, Urology Referred Provider Specialty Urology [...] Referring Provider Speciality Internal edicine Referred Organization [facility] [place] [facility] Referred Provider [facility], Core Physical Therapy Referred Address [address] [place] [address],[place], [id number], Referred Provider Specialty Physical The rapist General Notes D, Sarika 03/09/2025 02:30:36 PM > referral and progress note faxed. 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) Referral Organization Robbie Kothari III, MD Referring Provider First Name Robbie Referring Provider Last Name Saniya [facility] Provider [facility] Referred Provider [facility] er, Speech and Hearing Referred Provider Specialty Unknown General Notes D, Sarika 03/09/2025 02:27:01 PM > Referral and last progress not faxed Referral Priority Routine Referral Appointment Date 03/15/2025 Medications Medication SIG (Take, Route, Frequency, Duration) Notes Start Date End Date Status Hydrocortisone 1 % 1 application Records Section Supervisor ally Twice a day 01/27/2025 Active Albuterol Sulfate (2.5 MG/3ML) 0.083% Inhalation Active Nystatin 655106 UNIT/GM APPLY TOPICALLY 3 TIMES A DAY [...] Problem Status W/U Status Risk Notes Problem 7574951 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 Problem Hyperlipidemia (35340440) Hyperlipidemia (E78.5) Active confirmed Distal cholesterol is stable but his triglycerides are elevated. He will continue on his current diet until he has fully recovered from the stroke. He will continue on his medications. Problem 03162628 Hyponatremia (E87.1) Active confirmed After admission to [facility] he required hypertonic saline and then 1 g of sodium chloride tablets 3 times a day to restore his potassium to normal. He was discharged without this. Blood work with a sodium level will be checked frequently. Problem 949177797 Underweight (R63.6) Active confirmed His appetite is better and he is feeling stronger. His body mass index is now 19. We continue our discussions on diet and nutrition. 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 A recent chest x-ray shows worsening airspace disease in right lung. He is due to see pulmonary within the next week. He has a cough which is nonproductive and is afebrile. n. Problem 22694985 Orthostatic hypotension (I95.1) Active confirmed He developed th is at home and was brought to the [facility] emergency of December 30, 2024 and admitted overnight for hydration. We have discussed aggressive hydration and adequate nutrition. Problem 590105588 Rosacea (L71.9) Active confirmed He was given metronidazole gel. He was instructed in its use. Problem 106178532 Pulmonary nodule (R91.1) Active confirmed This is being observed. No change in his symptoms have been noted. Problem 439662229 Adenoma of ascending colon (D12.2) Active confirmed He will call he r gastroenterologis t to see if additional colonoscopies will be recommended. Problem 235268483 Hypertrophy of prostate without urinary obstruction and other lower urinary tract symptoms (LUTS) (N40.0) Active confirmed He has been usi ng lifestyle modification and now experiences nocturia only once a night. Problem 38651004 Abdominal hernia without obstruction and without gangrene, recurrence not specified, unspecified hernia type (K46.9) Active confirmed The hernia is n ow asymptomatic and will be observed without treatment. Problem Pneumonia (588109707) Pneumonia (J18.9) Active confirmed He is taking th e azithromycin 3 times a week. The other antibiotic has been discontinued. The pneumonia has resolved. He is breathing comfortably. Problem Seizure (02539906) Seizures (R56.9) Active confirmed Just before discharge from an [facility] rehabilitation he was begun on Keppra for periods of unresponsiveness. A repeat CT scan November 18, 2024 showed improvement in the hemorrhage and edema. The Her will be discontinued until the electroencephalog jackie is done. We have requested a repeat visit from [facility] neurology. Problem Stroke (647203683) Stroke (I63.9) Active confirmed Problem Benign prostatic hypertrophy without outflow obstruction (620313576) Benign prostatic hyperplasia without lower urinary tract symptoms (N40.0) Active confirmed Problem 4663881430315 Benign prostatic hyperplasia with lower urinary tract symptoms (N40.1) Active confirmed He says he is rising from sleep up to 4 times a night. His tamsulosin waas stopped because of a low blood pressure. It curtis now resumed. He is happy with this level of control. We discussed further lifestyle modifications he can maake to reduce nocturia. Problem Disorder of musculoskeletal system (829780) Leg weakness, bilateral (R29.898) Active confirmed Problem 40042369 Sleep apnea in adult (G47.30) Active confirmed He is using t he new CPAP machine without difficulty and is pleased with the results. Problem 86479701 Generalized weakness (R53.1) Active confirmed He was [...] tract infection or acute metabolic problem. 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 Problem 27474415 Atrial arrhythmia (I49.8) Active confirmed He was in a normal sinus rhythm today with no abnormalities. He has had no episodes of tachycardia, syncope or palpitations. 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 Problem 556390725263842 Acute gout of left hand, unspecified cause [...] Provider Diagnosis Robbie Kothari III, MD [address] [place] [address] [place] [id number] 06/02/2024 Robbie Kothari Encounter for immunization Z23 Robbie Kothari III, MD [address] [place] [address] [place] [id number] 07/25/2024 Robbie Kothrai Hyperlipidemia E78.5 ; Mycobacterial infection, unspecified A31.9 ; Benign prostatic hyperplasia with lower urinary tract symptoms N40.1 ; Former smoker Z87.891 ; 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 and Sleep apnea in adult G47.30 Robbie Kothari III, MD [address] [place] [address] [place] [id number] 11/21/2024 Robbie Kothari Hyperlipidemia E78.5 ; Nontraumatic [...] in adult G47.30 Robbie Kothari III, MD [address] [place] [address] [place] [id number] 12/02/2024 Robbie Kothari Hyperlipidemia E78.5 ; 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 ; Pneumonia J18.9 ; Former smoker Z87.891 ; Mycobacterial infection, unspecified A31.9 ; Sleep apnea in adult G47.30 and Benign prostatic hyperplasia with lower urinary tract symptoms N40.1 Robbie Kothari III, MD [address] [place] [address] [place] [id number] 12/19/2024 Robbie Kothari Hyperlipidemia E78.5 ; 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 ; Pneumonia J18.9 ; Underweight R63.6 ; Seizures R56.9 ; Former smoker Z87.891 ; Mycobacterial infection, unspecified A31.9 ; Sleep apnea in adult G47.30 and Benign prostatic hyperplasia with lower urinary tract symptoms N40.1 Robbie Kothari III, MD [address] [place] [address] [place] [id number] 01/04/2025 Robbie Kothari Orthostatic hypotens ion I95.1 ; Former smoker Z87.891 ; Atrial arrhythmia I49.8 ; Hyperlipidemia E78.5 ; Rosacea L71.9 ; Benign prostatic hyperplasia with lower urinary tract symptoms N40.1 ; 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 ; Underweight R63.6 and Pneumonia J18.9 Robbie Kothari III, MD [address] [place] [address] [place] [address] 01/13/2025 Robbie Kothari Generalized weakness R53.1 ; Hyperlipidemia E78.5 ; Former smoker Z87.891 ; Hypertrophy of prostate without urinary obstruction and other lower urinary tract symptoms (LUTS) N40.0 ; Mycobacterial infection, unspecified A31.9 ; Underweight R63.6 ; 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 ; Orthostatic hypotension I95.1 and Pneumonia J18.9 Robbie Kothari III, MD [address] [place] [address] [place] [id number] 01/27/2025 Robbie Kothari Former smoker Z87.89 1 [...] Generalized weakness R53.1 Robbie Kothari III, MD [address] [place] [address] [place] [id number] 02/24/2025 Robbie Kothari Mycobacterial infect ion, unspecified A31.9 ; 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 ; Benign prostatic hyperplasia with lower urinary tract symptoms N40.1 ; Seizures R56.9 ; Hyponatremia E87.1 ; Former smoker Z87.891 ; Generalized weakness R53.1 and Acute gout of left hand, unspecified cause M10.9 Robbie Kothari III, MD [address] [place] [address] [place] [address] 03/20/2025 Robbie Kothari Former smoker Z87.89 1 ; Hyperlipidemia 272.4 ; Benign prostatic hyperplasia without lower urinary tract symptoms N40.0 ; Mycobacterial infection, unspecified A31.9 ; Underweight R63.6 ; Anterior subcapsular polar age-related cataract of both eyes H25.033 ; Seizures R56.9 and 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 Robbie Kothari III, MD [address] [place] [address] [place] [address] 10/28/2024 Robbie Kothari III, MD [address] [place] [address] 11/21/2024 Robbie Kothari III, MD [address] [facility] [place] [address] 11/21/2024 Robbie Kothari III, MD [address] [facility] [place] [address] 11/22/2024 Robbie Kothari III, MD [address] [facility] [place] [address] 11/22/2024 Robbie Kothari III, MD [address] [facility] [place] [address] 11/25/2024 Robbie Kothari III, MD [address] [place] [place] [address] 11/25/2024 Robbie Kothari III, MD [address] [facility] [place] [address] 12/05/2024 Robbie Kothari III, MD [address] [facility] [place] [address] 12/14/2024 Robbie Kothari III, MD [address] [facility] [place] [address] 12/20/2024 Robbie Kothari III, MD [address] [facility] [place] [address] 01/02/2025 Robbie Kothari III, MD [address] [facility] [place] [address] 01/03/2025 Robbie Kothari III, MD [address] [facility] [place] [address] 01/06/2025 Robbie Kothari III, MD [address] [place] [address] 01/13/2025 Robbie Kothari III, MD [address] [facility] [place] [address] 01/17/2025 Robbie Kothari III, MD [address] [facility] [place] [address] 01/17/2025 Robbie Kothari III, MD [address] [place] [address] [place] [address] 02/07/2025 Robbie Kothari III, MD [address] [place] [address] [place] [address] 02/10/2025 Robbie Kothari III, MD [address] [place] [address] [place] [address] 02/24/2025 Robbie Kothari III, MD [address] [place] [address] [place] [address] 02/27/2025 Robbie Kothari III, MD [address] [place] [address] [place] [id number] 03/03/2025 Robbie Kothari III, MD [address] [place] [address] [place] [address] 03/09/2025 Robbie Kothari III, MD [address] [place] [address] [place] [address] 03/10/2025 Robbie Kothari Assessments Encounter Date Diagnosis (ICD Code) Assessment Notes Treatment Notes Treatment Clinical Notes 06/02/2024 Encounter for immunization (ICD-10 - Z23) [...] at home and was brought to the [facility] emergency of December 30, 2024 and [...] We have requested a repeat visit from [facility] neurology. 12/02/2024 Pneumonia (ICD-10 - J18.9) [...] lower urinary tract symptoms (ICD-10 - N40.0) 07/25/2024 Former smoker (ICD-10 - Z87.891) He has a strategy to prevent relapse in times of stress and illness. 11/21/2024 Hyponatremia (ICD-10 - E87.1) After admission to [facility] he required hypertonic saline and then [...] We have requested a repeat visit from [facility] neurology. 03/20/2025 Mycobacterial infection, unspecified (ICD-10 - A31.9) He continues on daily A azithromycin. A recent chest x-ray shows worsening airspace disease in right lung. He is due to see pulmonary within the next week. He has a cough which is nonproductive and is afebrile. n. 07/25/2024 Macrocytosis (ICD-10 - D75.89) His main [...] - R56.9) Just before discharge from an [facility] rehabilitation he was begun on Keppra for periods of unresponsiveness. A repeat CT scan November 18, 2024 showed improvement in the hemorrhage and edema. The Her will be discontinued until the electroencephalogram is done. We have requested a repeat visit from [facility] neurology. 01/04/2025 Rosacea (ICD-10 - L71.9) [...] Hyponatremia (ICD-10 - E87.1) After admission to [facility] he required hypertonic saline and then [...] continue our discussions on diet and nutrition. 07/25/2024 Sleep apnea in adult (ICD-10 - [...] We have requested a repeat visit from [facility] neurology. 02/24/2025 Former smoker (ICD-10 - [...] Hyponatremia (ICD-10 - E87.1) After admission to [facility] he required hypertonic saline and then [...] - R56.9) Just before discharge from an [facility] rehabilitation he was begun on Keppra for periods of unresponsiveness. A repeat CT scan November 18, 2024 showed improvement in the hemorrhage and edema. The Her will be discontinued until the electroencephalogram is done. We have requested a repeat visit from [facility] neurology. 11/21/2024 Rosacea (ICD-10 - L71.9) [...] at home and was brought to the [facility] emergency of December 30, 2024 and [...] Details Provider Name:Robbie Kothari, 05/02/2025 11:00:00 AM, [address] [place] [address] [address], [place], [address], Provider Name:Robbie Kothari, 01/29/2026 09:30:00 AM, [address] [place] [address] [address], [place], [address], Insurance Providers Payer Name Payer Address Payer Phone Subscriber Number Group Number Insured Name Patient Relationship to Insured Coverage Start Date Coverage End Date [employer]vantage [address] [address] [place] [phone] [id number] Freeman King Self - patient is the insured MEDICARE NGS [address] [place] [phone] [id number] Freeman King Self - patient is the insured Medical (General) History Medical History History ICD Code colonic poyps 2002 benign prostatic hyperplasia (BPH) hyperlipidemia left herniorraphy age 30 neck and right shoulder pain 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
--- OUTSIDE RECORDS SUMMARY | 2025-04-24 09:59 | XMS_ITS | Encounter Summary ---
Author Organization [facility] Address [address] [place] [address] Care Team Providers Care Tetryl Blender Operator Name Role Phone Gloria Preston MD Primary Care Provider [phone] Encounter Details Date Type Department Care Team (Late st Contact Info) Description 11/05/2024 Lab Requisition [facility] [address] [facility] [place] [address] Gloria Preston MD [address] [place] [phone] Encounter for other general examination Social History [...] CBC auto differential (11/05/2024 5:51 AM EST) [facility] WBC 8.0 4.8 - 10.8 K/mcL LAB HEMETOLOGY METHOD 11/05/2024 11:[address] [facility] RBC 4.20(L) 4.50 - 5.50 M/mcL LAB HEMETOLOGY METHOD 11/05/2024 11:[address] [facility] Hemoglobin 13.8 13.5 - 17.5 g/dL LAB HEMETOLOGY METHOD 11/05/2024 11:[address] [facility] Hematocrit 39.6(L) 42.0 - 54.0 % LAB HEMETOLOGY METHOD 11/05/2024 11:[address] [facility] MCV 94.7 79.0 - 98.0 FL LAB HEMETOLOGY METHOD 11/05/2024 11:[address] [facility] MCH 33.0(H) 27.0 - 32.0 pcg LAB HEMETOLOGY METHOD 11/05/2024 11:[address] [facility] MCHC 34.8 32.0 - 37.0 g/dL LAB HEMETOLOGY METHOD 11/05/2024 11:[address] [facility] RDW 12.7 11.0 - 15.0 % LAB HEMETOLOGY METHOD 11/05/2024 11:[address] [facility] Platelets 261 130 - 400 K/mcL LAB HEMETOLOGY METHOD 11/05/2024 11:[address] [facility] MPV 10.4 7.0 - 11.0 FL LAB HEMETOLOGY METHOD 11/05/2024 11:[address] [facility] NRBC 0.0 <1.0 % LAB HEMETOLOGY METHOD 11/05/2024 11:[address] [facility] NRBC Absolute 0.00 <0.10 K/mcL LAB HEMETOLOGY METHOD 11/05/2024 11:[address] [facility] Neutrophils Relative 73.3 % LAB HEMETOLOGY METHOD 11/05/2024 11:[address] [facility] Lymphocytes Relative 10.6 % LAB HEMETOLOGY METHOD 11/05/2024 11:[address] [facility] Monocytes Relative 14.7 % LAB HEMETOLOGY METHOD 11/05/2024 11:[address] [facility] Eosinophils Relative 0.4 % LAB HEMETOLOGY METHOD 11/05/2024 11:[address] [facility] Basophils Relative 0.6 % LAB HEMETOLOGY METHOD 11/05/2024 11:[address] [facility] Immature Granulocytes Relative 0.4 % LAB HEMETOLOGY METHOD 11/05/2024 11:[address] [facility] Neutrophils Absolute 5.87 1.50 - 7.00 K/mcL LAB HEMETOLOGY METHOD 11/05/2024 11:[address] [facility] Lymphocytes Absolute 0.85(L) 1.00 - 5.00 K/mcL LAB HEMETOLOGY METHOD 11/05/2024 11:[address] [facility] Monocytes Absolute 1.18(H) 0.20 - 1.00 K/mcL LAB HEMETOLOGY METHOD 11/05/2024 11:[address] [facility] Eosinophils Absolute 0.03 0.00 - 0.50 K/mcL LAB HEMETOLOGY METHOD 11/05/2024 11:[address] [facility] Basophils Absolute 0.05 0.00 - 0.20 K/mcL LAB HEMETOLOGY METHOD 11/05/2024 11:[address] [facility] Immature Granulocytes Absolute 0.03 0.00 - 0.03 K/mcL LAB HEMETOLOGY METHOD 11/05/2024 11:[address] [facility] Blood Venous blood specimen / Unknown Venipuncture / Unknown 11/05/2024 5:51 AM EST 11/05/2024 9:43 AM EST us Gloria Preston MD LAB BLOOD ORDERABLES Final Resu lt [facility] [address] [place] [address], [place] [phone] * Magnesium (11/05/2024 5:51 AM EST) [facility] Magnesium 2.0 1.9 - 2.6 mg/dL LAB CHEMISTRY METHOD 11/05/2024 11:[address] [facility] Blood Venous blood specimen / Unknown Venipuncture / Unknown 11/05/2024 5:51 AM EST 11/05/2024 9:43 AM EST us Gloria Preston MD LAB BLOOD ORDERABLES Final Resu lt Performing Organization Address City/[facility]/ZIP Co de Phone Number [facility] [address] [place] [address], [place] [phone] * (ABNORMAL) Comprehensive metabolic panel (11/05/2024 5:51 AM EST) [facility] Sodium 133 133 - 145 mmol/L LAB CHEMISTRY METHOD 11/05/2024 11:[address] [facility] Potassium 4.1 3.5 - 5.5 mmol/L LAB CHEMISTRY METHOD 11/05/2024 11:[address] [facility] Chloride 99 96 - 110 mmol/L LAB CHEMISTRY METHOD 11/05/2024 11:[address] [facility] CO2 24 21 - 32 mmol/L LAB CHEMISTRY METHOD 11/05/2024 11:[address] [facility] Anion Gap 10 3 - 11 LAB CHEMISTRY METHOD 11/05/2024 11:[address] [facility] Glucose 92 70 - 100 mg/dL LAB CHEMISTRY METHOD 11/05/2024 11:[address] [facility] BUN 18 5 - 25 mg/dL LAB CHEMISTRY METHOD 11/05/2024 11:[address] [facility] Creatinine 0.54(L) 0.70 - 1.30 mg/dL LAB CHEMISTRY METHOD 11/05/2024 11:[address] [facility] eGFR 98 >=60 mL/min/1. 73m2 LAB CHEMISTRY METHOD 11/05/2024 11:[address] [facility] Comment:Calculation based on the Chronic Kidney Disease Epidemiology Collaboration (CKD-EPI) equation refit without adjustment for race. BUN/Creatinine Ratio 33.3 LAB CHEMISTRY METHOD 11/05/2024 11:[address] [facility] Calcium 9.0 8.5 - 10.5 mg/dL LAB CHEMISTRY METHOD 11/05/2024 11:[address] [facility] AST (SGOT) 17 10 - 42 unit/L LAB CHEMISTRY METHOD 11/05/2024 11:[address] [facility] ALT (SGPT) 19 10 - 60 unit/L LAB CHEMISTRY METHOD 11/05/2024 11:[address] [facility] Alkaline Phosphatase 83 42 - 121 unit/L LAB CHEMISTRY METHOD 11/05/2024 11:[address] [facility] Total Protein 6.6 6.0 - 8.0 g/dL LAB CHEMISTRY METHOD 11/05/2024 11:[address] [facility] Albumin 2.8(L) 3.2 - 5.0 g/dL LAB CHEMISTRY METHOD 11/05/2024 11:[address] [facility] Total Bilirubin 1.1 0.0 - 1.4 mg/dL LAB CHEMISTRY METHOD 11/05/2024 11:[address] [facility] Blood Venous blood specimen / Unknown Venipuncture / Unknown 11/05/2024 5:51 AM EST 11/05/2024 9:43 AM EST us Rami A Ashkar MD LAB BLOOD ORDERABLES Final Resu lt [facility] [address] [place] [address], documented in this encounter Visit Diagnoses Diagnosis Encounter for other general examination documented in this encounter Care Teams Tetryl Blender Operator Relationship Specialty Start Date End Date Gloria Preston MD [address] [place] [phone] PCP - General Hospitalist Medicine 11/05/24 documented as of this encounter
--- OUTSIDE RECORDS SUMMARY | 2025-04-24 10:00 | XMS_ITS | Patient Health Record ---
Author Organization [facility] Address [address] [place] [address] Care Team Providers Care Filter Cloth Maker Name Role Phone Robbie Kothari MD Primary Care Provider UnavailRobbie Koo Unavailable [phone] Reason For Referral No Information Medications Medication [...] Problem Status W/U Status Risk Notes Problem [id number] Encounter for screening for malignant neoplasm of colon (Z12.11) Active confirmed Problem [id number] Hx of adenomatous colonic polyps (Z86.010) Active confirmed Problem [id number] Pre-procedural examination (Z01.818) Active confirmed Plan Of Treatment Future Test Test Name Order Date COLONOSCOPY 06/15/2018 Insurance Providers Payer Name Payer Address Payer Phone Subscriber Number Group Number Insured Name Patient Relationship to Insured Coverage Start Date Coverage End Date MEDICARE OF [place] [address] [place] [address] [id number] VAZQUEZ ROCHA Self - patient is the insured [facility] Insurance C/O [facility] [address] [place] [address] [id number] VAZQUEZ ROCHA Self - patient is the insured Medical (General) History Medical History History ICD Code Denies ND,DM,CVA,Lung disease,renal dise ase Hyperlipidemia Colonoscopy 2002-small tubul ar adenoma removed; colonoscopy in 2008 was negative--just diverticulosis and internal hemorrhoids Surgical History Surgery Date(Month/Year) Left inguinal hernia Skin cancers with skin grafts
[2025-04-24 10:20] LABS: Hematocrit 41.7 % (42.0-52.0); Hemoglobin 14.4 g/dl (14.0-18.0); Imm Gran Abs Auto 0.02 X10*3/uL (0.00-0.03); Imm Gran Pct Auto 0.3 % (0.0-0.4); Lymphocytes Absolute Auto 1.4 X10*3/uL (1.2-4.9); Mean Corpuscular HGB Conc 34.5 g/dl (31.0-36.0); Mean Corpuscular Hemoglobin 31.9 pg (27.0-33.0); Mean Corpuscular Volume 92.5 fL (80.0-98.0); NRBC Abs Auto 0.000 X10*3/uL (0.0-0.012); NRBC Pct Auto 0.0 /100WBC (0.0-0.2); Platelet Count 196 X10*3/uL (160-400); Red Blood Count 4.51 X10*6/uL (4.60-5.80); White Blood Count 6.0 X10*3/uL (4.8-10.8)
[2025-04-24 11:12] LABS: Alanine Aminotransferase 13 U/L (0-40); Albumin Level 4.2 g/dL (3.5-5.0); Alkaline Phosphatase 84 U/L (39-117); Anion Gap 8 (12-20); Aspartate Amino Transferase 25 U/L (5-37); Blood Urea Nitrogen 11 mg/dL (9-16); Calcium 9.3 mg/dL (8.4-10.2); Carbon Dioxide 30 mmol/L (22-29); Chloride 102 mmol/L (96-108); Estimated Glomerular Filt Rate > 60; Potassium 4.2 mmol/L (3.3-5.1); Sodium 136 mmol/L (135-145); Total Protein 7.6 g/dL (6.5-8.0)
== END 2025-04-24 09:31 | disposition home or self-care (01) ==
LOC: HO.US 09:30
PROVIDERS: Hospitalist; PCP Internal Medicine Medical Oncology; Visit Provider Nurse Practitioner Family
DX: J41.0 Simple chronic bronchitis (principal); J18.9 Pneumonia, unspecified organism; R35.1 Nocturia; R33.9 Retention of urine, unspecified; N39.43 Post-void dribbling
CPT/HCPCS: 36415; 76770; 80048; 80076; 85025; 85652

== ENCOUNTER → 2025-04-24 09:47 | Outpatient (BNV) | payer MEDICARE, SELFPAY | PROVIDERS: PCP Internal Medicine Medical Oncology; Visit Provider Radiology Diagnostic Radiology | DX: N20.0 Calculus of kidney (principal); N28.1 Cyst of kidney, acquired | CPT/HCPCS: 76770 ==

== ENCOUNTER 2025-05-01 08:27 | Outpatient (AMB) | payer MEDICARE, SELFPAY ==
--- OUTSIDE RECORDS SUMMARY | 2025-05-01 08:52 | XMS_ITS | Clinical Summary ---
Author Organization [facility] Address [address] [place] [address] [place] [address] Phone Care Team Providers Care Test Desk Trouble Locator Name Role Phone Unavailable Primary Care Provider [...] Office Visit [facility] [address] [place] [address] Anurag John [...] patient's age to complete this topic Insurance [facility] Medicare
--- OUTSIDE RECORDS SUMMARY | 2025-05-01 08:53 | XMS_ITS | Patient Health Record ---
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 Call Hematology if testing is desired. Comprehensive Met. Panel Reviewed date:10/30/2024 09:55:19 AM Interpretation: Performing Lab:[facility], [address] [place] [phone] Notes/Report: Sodium 131 135-145 mmol/L Potassium 4.2 [...] Magnesium Reviewed date:10/30/2024 09:55:19 AM Interpretation: Performing Lab:[address] [address] Notes/Report: Magnesium 1.5 1.6-2.6 mg/dL Troponin-I High Sensitivity Reviewed date:10/30/2024 09:55:19 AM Interpretation: Performing Lab:[facility], [address] [place] [phone] Notes/Report: Troponin-I High Sensitivity 3.1 <3.5-35.0 ng/L The Duran high sensitivity Troponin-I results should be used in conjunction with other diagnostic information such as ECG, clinical observations and information, and patient symptoms to aid in the diagnosis of [place]. SARS-CoV2/FLU/RSV Reviewed date:10/30/2024 09:55:19 AM Interpretation: Performing Lab:[address] [address] Notes/Report: Influenza A PCR NEGATIVE Negative Influenza [...] by authorized laboratories. Testing performed on the [employer]ard[employer]Xpert utilizing real-time RT-PCR. All SARS CoV2 and positive influenza A/B results are reported to [facility]. CT head for stroke Reviewed date:10/30/2024 09:55:19 AM Interpretation: Performing Lab: Notes/Report: [address] [address] [address] Scan Report Signed Patient: Freeman King MR#: [id number] [birth year] : 1940 Acct:[id number] Age/Sex: 84 / M ADM Date: 10/27/24 Loc: HO.ED Attending Dr: Ordering Physician: Alejandrina Mazariegos Date of Service: 10/27/24 Procedure(s): CT head for STROKE Accession Number(s): [id number] cc: Robbie Kothari MD; Alejandrina Mazariegos Report Number: [id number]: Total DLP = 799.00 mGy-cm EXAMINATION: CT [...] lobe. There is resultant mass effect and isxv-nd-bcspv midline shift of 3 mm. There is [...] atrium. 3. There is 3 mm of fvos-tl-ewhjr midline shift. No impending herniation at this time. This critical result was discussed with Alejandrina Mazariegos at 12:11 PM, on 10/27/2024 via phone call. Electronically signed by: Zohaib Brown MD 10/27/2024 12:14 PM [facility] [place] [place] Dictated By: Zohaib Brwon MD Signed By: <Electronically signed by Zohaib Brown MD in OV> 10/27/24 1214 DD/ 1148 TD/TT: 10/27/24 1156 Patent Litigation Associate: [place] [address] [address] Scan Report Signed Patient: Jeremiah King MR#: [id number] 30 : 1940 Acct:[id number] Age/Sex: 84 / M ADM Date: 10/27/24 Loc: HO.ED Attending Dr: Ordering Physician: Alejandrina Mazariegos Date of Service: 10/27/24 Procedure(s): CT hea d for STROKE Accession Number(s): [id number] cc: Robbie Kothari MD; Alejandrina Mazariegos Report [...] There is resultant m ass effect and mgkw-vh-dalcp midline shift of 3 mm. There is [...] atrium. 3. There is 3 mm of ufde-dp-lppjc midline shift. No impending herniation at this time. This critical result was discussed with Alejandrina Mazariegos at 12:11 PM, on 10/27/2024 via phone call. Electronically gurpreet d by: Zohaib Brown MD 10/27/2024 12:14 PM [facility] [place] [place] Dictated By: Zohaib Brown MD Signed By: <Electronically signed by Zohaib Brown MD in OV> 10/27/24 1214 DD/ 1148 TD/TT: 10/27/24 1156 Patent Litigation Associate: CT cervical spine wo con Reviewed date:10/30/2024 09:55:19 AM Interpretation: Performing Lab: Notes/Report: [address] [address] [address] Scan Report Signed Patient: Freeman King MR#: [id number] [birth year] : 1940 Acct:[id number] Age/Sex: 84 / M ADM Date: 10/27/24 Loc: HO.ED Attending Dr: Ordering Physician: Alejandrina Mazariegos Date of Service: 10/27/24 Procedure(s): CT cervical spine wo IV con Accession Number(s): [id number] cc: Robbie Kothari MD; Alejandrina Mazariegos Report Number: [id number]: Total DLP = 376.00 mGy-cm EXAMINATION: CT [...] Zohaib Brown MD 10/27/2024 02:23 PM [facility] [place] [place] Dictated By: Zohaib Brown MD Signed By: <Electronically signed by Zohaib Brown MD in OV> 10/27/24 1423 DD/ 1212 TD/TT: 10/27/24 1334 Patent Litigation Associate: [place] [address] [address] Scan Report Signed Patient: Jeremiah King MR#: [id number] [birth year] : 1940 Acct:[id number] Age/Sex: 84 / M ADM Date: 10/27/24 Loc: .ED Attending Dr: Ordering Physician: Alejandrina Mazariegos Date of Service: 10/27/24 Procedure(s): CT cer vical spine wo IV con Accession Number(s): [id number] cc: Robbie Kothari MD; Alejandrina Mazariegos Report [...] Zohaib Brown MD 10/27/2024 02:23 PM [facility] [place] [place] Dictated By: Zohaib Brown MD Signed By: <Electronically signed by Zohaib Brown MD in OV> 10/27/24 1423 DD/ 1212 TD/TT: 10/27/24 1334 Patent Litigation Associate: XR chest 1V Reviewed date:10/30/2024 09:55:19 AM Interpretation: Performing Lab: Notes/Report: [address] [address] XRay Report Signed Patient: Freeman King MR#: [id number] 30 : 1940 Acct:[id number] Age/Sex: 84 / M ADM Date: 10/27/24 Loc: HO.ED Attending Dr: Ordering Physician: Alejandrina Mazariegos Date of Service: 10/27/24 Procedure(s): XR chest 1V Accession Number(s): [id number] cc: Robbie Kothari MD; Alejandrina Mazariegos EXAMINATION: [...] Zohaib Brown MD 10/27/2024 01:41 PM [facility] [place] [place] Dictated By: Zohaib Brown MD Signed By: <Electronically signed by Zohaib Brown MD in OV> 10/27/24 1341 DD/ 1127 TD/TT: 10/27/24 1328 Patent Litigation Associate: [address] [address] XRay Report Signed Patient: Jeremiah King MR#: [id number] 30 : 1940 Acct:[id number] Age/Sex: 84 / M ADM Date: 10/27/24 Loc: HO.ED Attending Dr: Ordering Physician: Alejandrina Mazariegos Date of Service: 10/27/24 Procedure(s): XR chest 1V Accession Number(s): [id number] cc: Robbie Kothari MD; Alejandrina Mazariegos EXAMINATION: [...] Zohaib Brown MD 10/27/2024 01:41 PM [facility] [place] [place] Dictated By: Zohaib Brown MD Signed By: <Electronically signed by Zohaib Brown MD in OV> 10/27/24 1341 DD/ 1127 TD/TT: 10/27/24 1328 Patent Litigation Associate: XR chest 2V Reviewed date:12/16/2024 03:30:40 PM Interpretation: Performing Lab: Notes/Report: [address] [address] XRay Report Signed Patient: Freeman King MR#: [id number] 30 : 1940 Acct:[id number] Age/Sex: 84 / M ADM Date: 12/02/24 Loc: HO.XRAY Attending Dr: Robbie Kothari MD Ordering Physician: Denilson Minor MD Date of Service: 12/02/24 Procedure(s): XR chest 2V Accession Number(s): [id number] cc: Robbie Kothari MD; Denilson Minor MD [...] 12/02/24 1150 DD/ 1042 TD/TT: 12/02/24 1052 Patent Litigation Associate: [place] [address] XRay Report Signed Patient: Jeremiah King MR#: [id number] [birth year] : 1940 Acct:[id number] Age/Sex: 84 / M ADM Date: 12/02/24 Loc: JILLIAN Attending Dr: Robbie Kothari MD Ordering Physician: Denilson Minor MD Date of Service: 12/02/24 Procedure(s): XR chest 2V Accession Number(s): [id number] cc: Robbie Kothari MD; Denilson Minor MD [...] 12/02/24 1150 DD/ 1042 TD/TT: 12/02/24 1052 Patent Litigation Associate: Complete Blood Count Auto Di ff Reviewed date:12/16/2024 03:30:40 PM Interpretation: Performing Lab:[facility], [address] [place] [phone] Notes/Report: White Blood Count 5.2 4.8-10.8 X10*3/uL [...] Panel Reviewed date:12/16/2024 03:30:40 PM Interpretation: Performing Lab:[address] [address] Notes/Report: Sodium 136 135-145 mmol/L Potassium 3.9 [...] Magnesium Reviewed date:12/16/2024 03:30:40 PM Interpretation: Performing Lab:[facility], [address] [place] [phone] Notes/Report: Magnesium 1.8 1.6-2.6 mg/dL XR chest 2V Reviewed date:12/16/2024 03:30:40 PM Interpretation: Performing Lab: Notes/Report: [address] [address] XRay Report Signed Patient: Freeman King MR#: [id number] [birth year] : 1940 Acct:[id number] Age/Sex: 84 / M ADM Date: 12/16/24 Loc: JILLIAN Attending Dr: Denilson Minor MD Ordering Physician: Denilson Minor MD Date of Service: 12/16/24 Procedure(s): XR chest 2V Accession Number(s): [id number] cc: Robbie Kothari MD; Denilson Minro MD EXAMINATION: XR CHEST CLINICAL INFORMATION: J47.9 [...] 12/16/24 1138 DD/ 1048 TD/TT: 12/16/24 1110 Patent Litigation Associate: [place] [address] XRay Report Signed Patient: Jeremiah King MR#: [id number] [birth year] : 1940 Acct:[id number] Age/Sex: 84 / M ADM Date: 12/16/24 Loc: .XRAY Attending Dr: Denilson Minor MD Ordering Physician: Denilson Minor MD Date of Service: 12/16/24 Procedure(s): XR chest 2V Accession Number(s): [id number] cc: Robbie Kothari MD; Denilson Minor MD [...] 12/16/24 1138 DD/ 1048 TD/TT: 12/16/24 1110 Patent Litigation Associate: Complete Blood Count Auto Di ff Reviewed date:12/30/2024 08:37:25 PM Interpretation: Performing Lab:[facility], [address] [place] [phone] Notes/Report: White Blood Count 6.5 4.8-10.8 X10*3/uL [...] NRBC Abs Auto 0.000 0.0-0.012 X10*3/uL Comprehensive [place]. Panel Fa Reviewed date:12/30/2024 08:37:25 PM Interpretation: Performing Lab:[facility], [address] [place] [phone] Notes/Report: Sodium 135 135-145 mmol/L Potassium 4.2 [...] Panel Reviewed date:12/30/2024 08:37:25 PM Interpretation: Performing Lab:[facility], [address] [place] [phone] Notes/Report: Triglycerides 84 <150 mg/dL Desirable Triglyceride: [...] Antigen Reviewed date:12/30/2024 08:37:25 PM Interpretation: Performing Lab:[facility], [address] [place] [phone] Notes/Report: Prostate Specific Antigen 2.95 <0.05-4.0 ng/mL PSA methodology: Duran Alinity i Chemiluminescent Microparticle Immunoassay (CMIA) Complete Blood Count Auto Di ff Reviewed date:12/30/2024 08:37:25 PM Interpretation: Performing Lab:[facility], [address] [place] [phone] Notes/Report: White Blood Count 9.1 4.8-10.8 X10*3/uL [...] te Reviewed date:12/30/2024 08:37:25 PM Interpretation: Performing Lab:[facility], [address] [place] [phone] Notes/Report: Erythrocyte Sedimentation Rate 60 0-15 MM/HR Patients with polycythemia and many hemoglobin abnormalities may have depressed sed rates whereas patients with anemia may have elevated sed rates. Partial Thromboplastin Time Reviewed date:12/30/2024 08:37:25 PM Interpretation: Performing Lab:[facility], [address] [place] [phone] Notes/Report: Partial Thromboplastin Time 33.0 26.0-36.8 SEC For information regarding the monitoring of direct thrombin inhibitors, please refer to Pharmacy. Comprehensive Met. Panel Reviewed date:12/30/2024 08:37:25 PM Interpretation: Performing Lab:[facility], [address] [place] [phone] Notes/Report: Sodium 132 135-145 mmol/L Potassium 4.9 [...] Acid Reviewed date:12/30/2024 08:37:25 PM Interpretation: Performing Lab:[facility], [address] [place] [phone] Notes/Report: Lactic Acid 1.0 0.5-2.0 mmol/L Uric Acid Reviewed date:12/30/2024 08:37:25 PM Interpretation: Performing Lab:[facility], [address] [place] [phone] Notes/Report: Uric Acid 4.1 3.4-7.0 mg/dL Magnesium Reviewed date:12/30/2024 08:37:25 PM Interpretation: Performing Lab:[facility], [address] [place] [phone] Notes/Report: Magnesium 1.7 1.6-2.6 mg/dL Troponin-I High Sensitivity Reviewed date:12/30/2024 08:37:25 PM Interpretation: Performing Lab:[facility], [address] [place] [phone] Notes/Report: Troponin-I High Sensitivity 3.4 <3.5-35.0 ng/L The Duran high sensitivity Troponin-I results should be used in conjunction with other diagnostic information such as ECG, clinical observations and information, and patient symptoms to aid in the diagnosis of [place]. C Reactive Protein Reviewed date:12/30/2024 08:37:25 PM Interpretation: Performing Lab:[facility], [address] [place] [phone] Notes/Report: C Reactive Protein 4.85 < or = 0.50 mg/dL B Type Natriuretic Peptide Reviewed date:12/30/2024 08:37:25 PM Interpretation: Performing Lab:[facility], [address] [place] [phone] Notes/Report: B Type Natriuretic Peptide 82 <100 pg/mL Lipase Reviewed date:12/30/2024 08:37:25 PM Interpretation: Performing Lab:[facility], [address] [place] [phone] Notes/Report: Lipase 43 8-78 U/L UA CC w/rflx Micro + Cult Reviewed date:12/30/2024 08:37:25 PM Interpretation: Performing Lab:[facility], [address] [place] [phone] Notes/Report: Urine, Clean Catch Color Urine Yellow Appearance Urine Clear PH 7.5 5.0-9.0 Glucose Urine UA Negative Negative mg/dL Urine Blood Negative Negative Specific Napoleon - Urine >= 1.030 1.005-1.025 Urine Protein Negative Neg-Trace mg/dL Urine Ketones Negative Negative mg/dL Nitrite Urine Negative Negative Leukocyte Esterase Urine Negative Negative SARS-CoV2/FLU/RSV Reviewed date:12/30/2024 08:37:25 PM Interpretation: Performing Lab:[address] [phone] Notes/Report: Influenza A PCR NEGATIVE Negative Influenza [...] by authorized laboratories. Testing performed on the [employer] GeneXpert utilizing real-time RT-PCR. All SARS CoV2 and positive influenza A/B results are reported to [facility]. Blood Culture (First) Reviewed date:01/14/2025 08:40:47 PM Interpretation: Performing Lab:[facility], [address] [place] [phone] Notes/Report: Blood Culture (First) No growth after 5 days. Blood Culture (Second) Reviewed date:01/14/2025 08:40:47 PM Interpretation: Performing Lab:[address] [phone] Notes/Report: Blood Culture (Second) No growth after [address] angio head neck Reviewed date:12/30/2024 08:37:25 PM Interpretation: Performing Lab: Notes/Report: [address] [address] [address] Scan Report Signed Patient: Freeman King MR#: [id number] [birth year] : 1940 Acct:[id number] Age/Sex: 84 / M ADM Date: 12/30/24 Loc: HO.ED Attending Dr: Ordering Physician: Rahul Zamora MD Date of Service: 12/30/24 Procedure(s): CT angio head neck Accession Number(s): [id number] cc: Robbie Kothari MD; Rahul Zamora MD Report Number: [id number]: Total DLP = 1652.00 mGy-cm EXAMINATION: CTA [...] intimal flap. Superior cerebellar arteries are patent. sheet tester: Right P1 segment: Hypoplastic/atretic. No focal stenosis. [...] 12/30/24 1225 DD/ 1133 TD/TT: 12/30/24 1155 Patent Litigation Associate: [address] [address] [address] Scan Report Signed Patient: Jeremiah King MR#: [id number] [birth year] : 1940 Acct:[id number] Age/Sex: 84 / M ADM Date: 12/30/24 Loc: HO.ED Attending Dr: Ordering Physician: Rahul Zamora MD Date of Service: 12/30/24 Procedure(s): CT ang io head neck Accession Number(s): [id number] cc: Robbie Kothari MD; Rahul Zamora MD [...] left vertebral artery. No acute fracture, b dvaey calvarium. No air-fluid levels in the paranasal [...] intimal flap. Superior cerebellar arteries are patent. sheet tester: Right P1 segment: Hypoplastic/atretic. No focal stenosis. [...] 12/30/24 1225 DD/ 1133 TD/TT: 12/30/24 1155 Patent Litigation Associate: XR wrist RT 2V Reviewed date:12/30/2024 08:37:25 PM Interpretation: Performing Lab: Notes/Report: [address] [address] XRay Report Signed Patient: Freeman King MR#: [id number] [birth year] : 1940 Acct:[id number] Age/Sex: 84 / M ADM Date: 12/30/24 Loc: HO.ED Attending Dr: Ordering Physician: Rahul Zamora MD Date of Service: 12/30/24 Procedure(s): XR wrist RT 2V Accession Number(s): [id number] cc: Robbie Kothari MD; Rahul Zamora MD [...] 12/30/24 1300 DD/ 1243 TD/TT: 12/30/24 1255 Patent Litigation Associate: [address] [address] XRay Report Signed Patient: Jeremiah King MR#: [id number] [birth year] : 1940 Acct:[id number] Age/Sex: 84 / M ADM Date: 12/30/24 Loc: HO.ED Attending Dr: Ordering Physician: Rahul Zamora MD Date of Service: 12/30/24 Procedure(s): XR wri st RT 2V Accession Number(s): [id number] cc: Robbie Kothari MD; Rahul Zamora MD [...] 12/30/24 1300 DD/ 1243 TD/TT: 12/30/24 1255 Patent Litigation Associate: XR chest 1V Reviewed date:12/30/2024 08:37:25 PM Interpretation: Performing Lab: Notes/Report: [address] [address] XRay Report Signed Patient: Freeman King MR#: [id number] [birth year] : 1940 Acct:[id number] Age/Sex: 84 / M ADM Date: 12/30/24 Loc: .ED Attending Dr: Ordering Physician: Rahul Zamora MD Date of Service: 12/30/24 Procedure(s): XR chest 1V Accession Number(s): [id number] cc: Robbie Kothari MD; Rahul Zamora MD [...] 12/30/24 1210 DD/ 1031 TD/TT: 12/30/24 1149 Patent Litigation Associate: [place] [address] XRay Report Signed Patient: Jeremiah King MR#: [id number] [birth year] : 1940 Acct:[id number] Age/Sex: 84 / M ADM Date: 12/30/24 Loc: .ED Attending Dr: Ordering Physician: Rahul Zamora MD Date of Service: 12/30/24 Procedure(s): XR chest 1V Accession Number(s): [id number] cc: Robbie Kothari MD; Rahul Zamora MD [...] 12/30/24 1210 DD/ 1031 TD/TT: 12/30/24 1149 Patent Litigation Associate: XR hand RT min 3V Reviewed date:12/30/2024 08:37:25 PM Interpretation: Performing Lab: Notes/Report: [address] [address] XRay Report Signed Patient: Freeman King MR#: [id number] [birth year] : 1940 Acct:[id number] Age/Sex: 84 / M ADM Date: 12/30/24 Loc: HO.ED Attending Dr: Ordering Physician: Rahul Zamora MD Date of Service: 12/30/24 Procedure(s): XR hand RT min 3V Accession Number(s): [id number] cc: Robbie Kothari MD; Rahul Zamora MD [...] 12/30/24 1301 DD/ 1243 TD/TT: 12/30/24 1255 Patent Litigation Associate: [address] [address] XRay Report Signed Patient: Jeremiah King MR#: [id number] [birth year] : 1940 Acct:[id number] Age/Sex: 84 / M ADM Date: 12/30/24 Loc: HO.ED Attending Dr: Ordering Physician: Rahul Zamora MD Date of Service: 12/30/24 Procedure(s): XR camacho d RT min 3V Accession Number(s): [id number] cc: Robbie Kothari MD; Rahul Zamora MD [...] 12/30/24 1301 DD/ 1243 TD/TT: 12/30/24 1255 Patent Litigation Associate: Renae Coates Hematolo gy Reviewed date:01/01/2025 10:45:53 AM Interpretation: Performing Lab:[facility], [address] [place] [phone] Notes/Report: Hold Lav - Possible Hematology SEE NOTE Specimen will be held untested for 8 hours. Call Hematology if testing is desired. Basic Metabolic Panel Reviewed date:01/01/2025 10:45:53 AM Interpretation: Performing Lab:[facility], [address] [place] [phone] Notes/Report: Sodium 135 135-145 mmol/L Potassium 4.2 [...] ff Reviewed date:01/14/2025 08:40:47 PM Interpretation: Performing Lab:[facility], [address] [place] [phone] Notes/Report: White Blood Count 7.5 4.8-10.8 X10*3/uL [...] Coag Reviewed date:01/14/2025 08:40:47 PM Interpretation: Performing Lab:[facility], [address] [place] [phone] Notes/Report: Hold Lt Blue - Possible Coag SEE NOTE Specimen will be held untested for 4 hours. Call Hematology if testing is desired. Liver Panel Reviewed date:01/14/2025 08:40:47 PM Interpretation: Performing Lab:[facility], [address] [place] [phone] Notes/Report: Bilirubin Total 1.0 0.0-1.0 mg/dL Bilirubin Direct 0.3 0.0-0.5 mg/dL Aspartate Amino Transferase 28 5-37 U/L Slight Hemolysis.Interpret result with caution. Alanine Aminotransferase 12 0-40 U/L Total Protein 7.4 6.5-8.0 g/dL Albumin Level 3.6 3.5-5.0 g/dL Alkaline Phosphatase 70 39-117 U/L Basic Metabolic Panel Reviewed date:01/14/2025 08:40:47 PM Interpretation: Performing Lab:[facility], [address] [place] [phone] Notes/Report: Sodium 130 135-145 mmol/L Potassium 4.4 [...] Acid Reviewed date:01/14/2025 08:40:47 PM Interpretation: Performing Lab:[facility], [address] [place] [phone] Notes/Report: Lactic Acid 0.8 0.5-2.0 mmol/L Magnesium Reviewed date:01/14/2025 08:40:47 PM Interpretation: Performing Lab:[address] [address] Notes/Report: Magnesium 1.8 1.6-2.6 mg/dL Troponin-I High Sensitivity Reviewed date:01/14/2025 08:40:47 PM Interpretation: Performing Lab:[address] [address] Notes/Report: Troponin-I High Sensitivity 3.3 <3.5-35.0 ng/L The Duran high sensitivity Troponin-I results should be used in conjunction with other diagnostic information such as ECG, clinical observations and information, and patient symptoms to aid in the diagnosis of [place]. C Reactive Protein Reviewed date:01/14/2025 08:40:47 PM Interpretation: Performing Lab:[address] [address] Notes/Report: C Reactive Protein 13.61 < or = 0.50 mg/dL B Type Natriuretic Peptide Reviewed date:01/14/2025 08:40:47 PM Interpretation: Performing Lab:[facility], [address] [place] [phone] Notes/Report: B Type Natriuretic Peptide 53 <100 pg/mL Procalcitonin Reviewed date:01/14/2025 08:40:47 PM Interpretation: Performing Lab:[facility], [address] [place] [phone] Notes/Report: Procalcitonin 0.04 Procalcitonin (PCT) Reference Range: [...] results from different laboratories and methodologies. References: [employer]/Society of Critical Care [...] 510(k) substantial equivalence determination decision summary for [facility]. http://www.accessda ta.fda.fov/cdrh_doc s/reviews/H286573.p df. Published September 2004. Accessed February 2017. Gram stain Reviewed date:01/17/2025 05:36:47 AM Interpretation: Performing Lab:[facility], [address] [place] [phone] Notes/Report: Gram stain Gram stain results: Gram stain 4+ polys Gram stain 1+ epithelial cells Gram stain 4+ red blood cells Gram stain 1+ Gram-positive cocci UA CC w/rflx Micro + Cult Reviewed date:01/14/2025 08:40:47 PM Interpretation: Performing Lab:[address] [address] Notes/Report: Urine, Catheterized Color Urine Yellow Appearance Urine Clear PH 6.0 5.0-9.0 Glucose Urine UA Negative Negative mg/dL Urine Blood Negative Negative Specific Napoleon - Urine 1.020 1.005-1.025 Urine Protein Negative Neg-Trace mg/dL Urine Ketones Negative Negative mg/dL Nitrite Urine Negative Negative Leukocyte Esterase Urine Negative Negative SARS-CoV2/FLU/RSV Reviewed date:01/14/2025 08:40:47 PM Interpretation: Performing Lab:[address] [phone] Notes/Report: Influenza A PCR NEGATIVE Negative Influenza [...] by authorized laboratories. Testing performed on the [employer] GeneXpert utilizing real-time RT-PCR. All SARS CoV2 and positive influenza A/B results are reported to [facility]. Blood Culture (First) Reviewed date:02/12/2025 08:15:10 PM Interpretation: Performing Lab:[facility], [address] [place] [phone] Notes/Report: Blood Culture (First) No growth after 5 days. Blood Culture (Second) Reviewed date:02/12/2025 08:15:10 PM Interpretation: Performing Lab:[address] [address] Notes/Report: Blood Culture (Second) No growth after 5 days. Sputum Culture Reviewed date:01/17/2025 05:36:47 AM Interpretation: Performing Lab:[facility], [address] [place] [phone] Notes/Report: Sputum Culture BAP Sputum Culture 2+ Mixed respiratory ramon. CT chest wo con Reviewed date:01/14/2025 08:40:47 PM Interpretation: Performing Lab: Notes/Report: [address] [address] [address] Scan Report Signed Patient: Freeman King MR#: [id number] 30 : 1940 Acct:[id number] Age/Sex: 84 / M ADM Date: 01/13/25 Loc: .S3 358-[address]: Tommy Rodriguez MD Ordering Physician: Linette Brown Date of Service: 01/13/25 Procedure(s): CT chest wo IV con Accession Number(s): [id number] cc: Linette Brown; Robbie Kothari MD Report Number: [id number]: Total DLP = 336.00 mGy-cm CLINICAL HISTORY: Pt with hemoptysis, ?RUL and LLL pneumonia CT chest without contrast Comparison: CT/REG/N[place]/SR - CT CHEST WO IV CON - [...] OV> 01/13/25 174 DD/ 45 TD/TT: 01/13/251745 Patent Litigation Associate: [address] [address] [address] Scan Report Signed Patient: Jeremiah King MR#: [id number] 30 : 1940 Acct:[id number] Age/Sex: 84 / M ADM Date: 01/13/25 Loc: HO.S3 358-[address]: Tommy Rodriguez MD Ordering Physician: Linette Brown Date of Service: 01/13/25 Procedure(s): CT yuridia st wo IV con Accession Number(s): [id number] cc: Linette Brown; Robbie Kothari MD Report [...] OV> 01/13/251746 DD/ 1746 TD/TT: 01/13/25 174 Patent Litigation Associate: CT head/brain wo con Reviewed date:01/14/2025 08:40:47 PM Interpretation: Performing Lab: Notes/Report: [address] [address] [address] Scan Report Signed Patient: Freeman King MR#: [id number] 30 : 1940 Acct:[id number] Age/Sex: 84 / M ADM Date: 01/13/25 Loc: HO.ED Attending Dr: Ordering Physician: Taras Spencer MD Date of Service: 01/13/25 Procedure(s): CT head/brain wo IV con Accession Number(s): [id number] cc: Robbie Kothari MD; Taras Spencer MD Report Number: [id number]: Total DLP = 726.00 mGy-cm EXAMINATION: CT [...] 01/13/25 1235 DD/ 1215 TD/TT: 01/13/25 1226 Patent Litigation Associate: [address] [address] [address] Scan Report Signed Patient: Jeremiah King MR#: [id number] [birth year] : 1940 Acct:[id number] Age/Sex: 84 / M ADM Date: 01/13/25 Loc: HO.ED Attending Dr: Ordering Physician: Taras Spencer MD Date of Service: 01/13/25 Procedure(s): CT head/brain wo IV con Accession Number(s): [id number] cc: Robbie Kothari MD; Taras Spencer MD [...] 01/13/25 1235 DD/ 1215 TD/TT: 01/13/25 1226 Patent Litigation Associate: XR chest 1V Reviewed date:01/14/2025 08:40:47 PM Interpretation: Performing Lab: Notes/Report: [address] [address] XRay Report Signed Patient: Freeman King MR#: [id number] 30 : 1940 Acct:[id number] Age/Sex: 84 / M ADM Date: 01/13/25 Loc: HO.ED Attending Dr: Ordering Physician: Taras Spencer MD Date of Service: 01/13/25 Procedure(s): XR chest 1V Accession Number(s): [id number] cc: Robbie Kothari MD; Taras Spencer MD [...] 01/13/25 1228 DD/ 1222 TD/TT: 01/13/25 1222 Patent Litigation Associate: [address] [address] XRay Report Signed Patient: Jeremiah King MR#: [id number] [birth year] : 1940 Acct:[id number] Age/Sex: 84 / M ADM Date: 01/13/25 Loc: HO.ED Attending Dr: Ordering Physician: Taras Spencer MD Date of Service: 01/13/25 Procedure(s): XR chest 1V Accession Number(s): [id number] cc: Robbie Kothari MD; Taras Spencer MD [...] 01/13/25 1228 DD/ 1222 TD/TT: 01/13/25 1222 Patent Litigation Associate: Hold Lav - Possible Hematolo gy Reviewed date:01/14/2025 08:40:46 PM Interpretation: Performing Lab:[facility], [address] [place] [address] Notes/Report: Hold Lav - Possible Hematology SEE NOTE Specimen will be held untested for 8 hours. Call Hematology if testing is desired. Basic Metabolic Panel Reviewed date:01/14/2025 08:40:47 PM Interpretation: Performing Lab:[facility], [address] [place] [address] Notes/Report: Sodium 130 135-145 mmol/L Potassium 4.0 [...] Urine Reviewed date:01/14/2025 08:40:47 PM Interpretation: Performing Lab:[address] [address] Notes/Report: Osmolality Urine 765 152-4383 mosm/kg Sodium Urine Random Reviewed date:01/14/2025 08:40:47 PM Interpretation: Performing Lab:[address] [address] Notes/Report: Sodium Urine Random 93.0 Vancomycin Random Reviewed date:01/14/2025 08:40:47 PM Interpretation: Performing Lab:[address] [address] Notes/Report: Vancomycin Random 9.3 15-20 mcg/mL Complete Blood Count Auto Di ff Reviewed date:01/15/2025 06:45:37 AM Interpretation: Performing Lab:[address] [address] Notes/Report: White Blood Count 5.0 4.8-10.8 X10*3/uL [...] Hematocrit Reviewed date:01/17/2025 05:36:47 AM Interpretation: Performing Lab:[address] [address] Notes/Report: Hemoglobin 11.9 14.0-18.0 g/dl Hematocrit 33.2 42.0-52.0 % Basic Metabolic Panel Reviewed date:01/15/2025 06:45:37 AM Interpretation: Performing Lab:[address] [address] Notes/Report: Sodium 135 135-145 mmol/L Potassium 3.8 [...] gy Reviewed date:01/17/2025 05:36:47 AM Interpretation: Performing Lab:[address] [address] Notes/Report: Hold Lav - Possible Hematology SEE NOTE Specimen will be held untested for 8 hours. Call Hematology if testing is desired. Creatinine Reviewed date:01/17/2025 05:36:47 AM Interpretation: Performing Lab:[facility], [address] [place] [address] Notes/Report: Creatinine 0.77 0.5-1.4 mg/dL Creatinine Clr [...] ff Reviewed date:02/26/2025 07:54:27 AM Interpretation: Performing Lab:[address] [address] Notes/Report: White Blood Count 6.6 4.8-10.8 X10*3/uL [...] NRBC Abs Auto 0.000 0.0-0.012 X10*3/uL Comprehensive [place]. Panel Fa st Reviewed date:02/26/2025 07:54:27 AM Interpretation: Performing Lab:[facility], [address] [place] [address] Notes/Report: Sodium 135 135-145 mmol/L Potassium 4.3 [...] Panel Reviewed date:02/26/2025 07:54:27 AM Interpretation: Performing Lab:[facility], [address] [place] [address] Notes/Report: Triglycerides 58 <150 mg/dL Desirable Triglyceride: [...] date:02/26/2025 07:54:27 AM Interpretation: Performing Lab: Notes/Report: [address] [address] XRay Report Signed Patient: Freeman King MR#: [id number] [birth year] : 1940 Acct:[id number] Age/Sex: 85 / M ADM Date: 02/23/25 Loc: HO.KIRTIAY Attending Dr: Denilson Minor MD Ordering Physician: Denilson Minor MD Date of Service: 02/23/25 Procedure(s): XR chest 2V Accession Number(s): [id number] cc: Robbie Kothari MD; Denilson Minor MD [...] OV> 02/23/25 0853 DD/ 6 TD/TT: 02/23/25835 Patent Litigation Associate: [place] [address] XRay Report Signed Patient: Jeremiah King MR#: [id number] [birth year] : 1940 Acct:[id number] Age/Sex: 85 / M ADM Date: 02/23/25 Loc: HO.XRAY Attending Dr: Denilson Minor MD Ordering Physician: Denilson Minor MD Date of Service: 02/23/25 Procedure(s): XR chest 2V Accession Number(s): [id number] cc: Robbie Kothari MD; Denilson Minor MD [...] 02/23/25 0853 DD/ 6 TD/TT: 02/23/25 0836 Patent Litigation Associate: XR chest 2V Reviewed date:04/15/2025 07:11:05 PM Interpretation: Performing Lab: Notes/Report: [address] [address] XRay Report Signed Patient: Freeman King MR#: [id number] [birth year] : 1940 Acct:[id number] Age/Sex: 85 / M ADM Date: 04/12/25 Loc: JILLIAN Attending Dr: Denilson Minor MD Ordering Physician: Denilson Minor MD Date of Service: 04/12/25 Procedure(s): XR chest 2V Accession Number(s): [id number] cc: Robbie Kothari MD; Denilson Minor MD [...] 04/12/25 1430 DD/ 1411 TD/TT: 04/12/25 1426 Patent Litigation Associate: [address] [address] XRay Report Signed Patient: Jeremiah King MR#: [id number] [birth year] : 1940 Acct:[id number] Age/Sex: 85 / M ADM Date: 04/12/25 Loc: JILLIAN Attending Dr: Dneilson Minor MD Ordering Physician: Denilson Minor MD Date of Service: 04/12/25 Procedure(s): XR chest 2V Accession Number(s): [id number] cc: Robbie Kothari MD; Denilson Minor MD [...] 04/12/25 1430 DD/ 1411 TD/TT: 04/12/25 1426 Patent Litigation Associate: Complete Blood Count Auto Di ff Reviewed date:04/24/2025 03:36:17 PM Interpretation: Performing Lab:[facility], [address] [place] [phone] Notes/Report: White Blood Count 6.0 4.8-10.8 X10*3/uL Red Blood Count 4.51 4.60-5.80 X10*6/uL Hemoglobin 14.4 14.0-18.0 g/dl Hematocrit 41.7 42.0-52.0 % Mean Corpuscular Volume 92.5 80.0-98.0 fL Mean Corpuscular Hemoglobin 31.9 27.0-33.0 pg Mean Corpuscular HGB Conc 34.5 31.0-36.0 g/dl Red Cell Distribution Width 13.7 11.0-16.0 % Platelet Count 196 160-400 X10*3/uL Mean Platelet Volume 10.9 9.4-12.4 fL Neutrophils Percent Auto 58.2 45-73 % Imm Gran Pct Auto 0.3 0.0-0.4 % Lymphocytes Percent Auto 22.7 20-40 % Monocytes Percent Auto 13.3 2-11 % Eosinophils Percent Auto 3.8 0-4 % Basophils Percent Auto 1.7 0-2 % NRBC Pct Auto 0.0 0.0-0.2 /100WBC Neutrophils Absolute Auto 3.5 2.0-8.3 x10*3/u L Imm Gran Abs Auto 0.02 0.00-0.03 X10*3/uL Lymphocytes Absolute Auto 1.4 1.2-4.9 X10*3/u L Monocytes Absolute Auto 0.8 0.1-1.2 X10*3/uL Eosinophils Absolute Auto 0.2 0.0-0.4 X10*3/u L Basophils Absolute Auto 0.1 0.0-0.2 X10*3/uL NRBC Abs Auto 0.000 0.0-0.012 X10*3/uL Erythrocyte Sedimentation Ra te Reviewed date:04/24/2025 03:36:17 PM Interpretation: Performing Lab:[address] [address] Notes/Report: Erythrocyte Sedimentation Rate 21 0-15 MM/HR Patients with polycythemia and many hemoglobin abnormalities may have depressed sed rates whereas patients with anemia may have elevated sed rates. Liver Panel Reviewed date:04/24/2025 03:36:17 PM Interpretation: Performing Lab:[address] [address] Notes/Report: Bilirubin Total 0.8 0.0-1.0 mg/dL Bilirubin Direct 0.3 0.0-0.5 mg/dL Aspartate Amino Transferase 25 5-37 U/L Alanine Aminotransferase 13 0-40 U/L Total Protein 7.6 6.5-8.0 g/dL Albumin Level 4.2 3.5-5.0 g/dL Alkaline Phosphatase 84 39-117 U/L Basic Metabolic Panel Reviewed date:04/24/2025 03:36:17 PM Interpretation: Performing Lab:[address] [address] Notes/Report: Sodium 136 135-145 mmol/L Potassium 4.2 3.3-5.1 mmol/L Chloride 102 96-108 mmol/L Carbon Dioxide 30 22-29 mmol/L Anion Gap 8 12-20 Blood Urea Nitrogen 11 9-16 mg/dL Creatinine 0.73 0.5-1.4 mg/dL Estimated Glomerular Filt Rate > 60 Chronic Kidney Disease: Estimated GFR < 60 mL/min/1.73m2 Severe Kidney Disease: Estimated GFR < 15 mL/min/1.73m2 Glucose Random 55 60-115 mg/dL Critical value for test(s): GLU Results called to and read back by: VAZQUEZ Person calling:DROWNJE Date: 04/24/25 Time: 1111 Calcium 9.3 8.4-10.2 mg/dL US retroperitoneal comp Reviewed date:04/24/2025 03:36:17 PM Interpretation: Performing Lab: Notes/Report: [address] [address] Ultrasound Report Signed Patient: Freeman King MR#: [id number] [birth year] : 1940 Acct:[id number] Age/Sex: 85 / M ADM Date: 04/24/25 Loc: HO.US Attending Dr: Irene MADRID Ordering Physician: Irene Fam Date of Service: 04/24/25 Procedure(s): US retroperitoneal comp Accession Number(s): [id number] cc: Robbie Kothari MD; Irene Fam EXAMINATION: US RETROPERITONEUM HISTORY: R33.9 - Retention of urine, unspecified TECHNIQUE: Real-time grayscale ultrasound imaging of the kidneys was performed and images were reviewed. COMPARISON: There are no prior studies available for comparison. FINDINGS: Right kidney: The right kidney measures 11.7 x 5.5 x 6.4 cm. Renal parenchymal echotexture and thickness are normal. There is a 5.8 x 4.5 x 6.5 cm cyst in the interpolar region and a 2.9 x 3.2 x 2.9 cm cyst at the lower pole. There is a 5 x 6 x 5 mm nonobstructing calculus at the upper pole. It is no hydronephrosis. Left Kidney: The left kidney measures 10.5 x 5.8 x 4.7 cm. Renal parenchymal echotexture and thickness are normal. There is an 8 x 6 x 7 mm cyst in the interpolar region. There is no hydronephrosis or renal calculi. The urinary bladder is unremarkable. Bilateral ureteral jets are identified. Before voiding, the urinary bladder measured 13.3 x 10.7 x 11.8 cm, for an estimated volume of 881 mL. After voiding, the urinary bladder measured 9.6 x 10.0 x 9.2 cm, for an estimated volume of 473 mL. The prostate measures 4.7 x 4.2 x 4.5 cm, for an estimated volume of 46.5 mL. US/US retroperitoneal comp IMPRESSION: 1. 6 mm nonobstructing right upper pole renal calculus. 2. Bilateral renal cysts as described. 3. Post void bladder residual of 473 mL. 4. Prostate volume of 46.9 mL. Electronically signed by: Robbie Rosales MD 04/24/2025 10:49 AM EDT Dictated By: Robbie Rosales MD Signed By: <Electronically signed by Robbie Rosales MD in [place]> 04/24/25 1049 DD/ 1000 TD/TT: 04/24/25 1030 Patent Litigation Associate: [place] [address] Ultrasound Report Signed Patient: Jeremiah King MR#: [id number] [birth year] : 1940 Acct:[id number] Age/Sex: 85 / M ADM Date: 04/24/25 Loc: .US Attending Dr: Irene MADRID Ordering Physician: Irene Fam Date of Service: 04/24/25 Procedure(s): US retroperitoneal comp Accession Number(s): [id number] cc: Robbie Kothari MD; Irene Fam EXAMINATION: US RETROPERITONEUM HISTORY: R33.9 - Retention of urine, unspecified TECHNIQUE: Real-time grayscale ultrasound imaging of the kidneys was performed and images were reviewed. COMPARISON: There ar e no prior studies available for comparison. FINDINGS: Right kidney: The ri ght kidney measures 11.7 x 5.5 x 6.4 cm. Renal parenchymal echotext ure and thickness are normal. There is a 5.8 x 4.5 x 6.5 cm cyst in the interpolar region and a 2.9 x 3.2 x 2.9 cm cyst at the lower pole. Ther e is a 5 x 6 x 5 mm nonobstructing calculus at the upper pole. It is no hydronephrosis. Left Kidney: The lef t kidney measures 10.5 x 5.8 x 4.7 cm. Renal parenchymal echotext ure and thickness are normal. There is an 8 x 6 x 7 mm cyst in the interpolar region. There is no hydronephrosis or renal calculi. The urinary bladder is unremarkable. Bilateral ureteral jets are identified. Before voiding, the urinary bladder measured 13.3 x 10.7 x 11.8 cm, for an dali mated volume of 881 mL. After voiding, the urinary bladder measured 9.6 x 10.0 x 9.2 cm, for an estimated volume of 473 mL. The prostate abena sures 4.7 x 4.2 x 4.5 cm, for an estimated volume of 46.5 mL. U S/US retroperitoneal comp IMPRESSION: 1. 6 mm nonobstructi ng right upper pole renal calculus. 2. Bilateral renal c ysts as described. 3. Post void bladder residual of 473 mL. 4. Prostate volume o f 46.9 mL. Electronically gurpreet d by: Robbie Rosaels MD 04/24/2025 10:49 AM EDT RP Dictated By: Robbie Rosales MD Signed By: <Electronically signed by Robbie Rosales MD in [place]> 04/24/25 1049 DD/ 1000 TD/TT: 04/24/25 1030 Patent Litigation Associate: Reason For Referral Reason Urgent Referral Requ est Evaluate and Treat ? Catheter Can not tolerate tamsulosin Diagnosis 1 Benign prostatic hyp erplasia with lower urinary tract symptoms (N40.1) Diagnosis 2 Nocturia (R35.1) Referral Organization Robbie Kothari III, MD Referring Provider First Name Robbie Referring Provider Last Name Saniya Referring Provider Speciality Internal M edicine Referred Provider [facility] er, Urology Referred Provider Specialty Urology General Notes D, Sarika 12/06/2024 09:06:05 AM > Faxed referral and [...] Last Name Saniya Referring Provider Speciality Internal edicine Referred Organization [facility] valentin Referred Provider [facility], Core Physical Therapy Referred Address [address] [place] [id number], Referred Provider Specialty Physical The rapist General [...] Kothari Referring Provider Speciality Internal edicine Referred Provider [facility], Speech and Hearing Referred Provider Specialty Unknown General Notes Sarika Villegas 03/09/2025 02:27:01 PM > Referral and last progress not faxed Referral Priority Routine Referral Appointment Date 03/15/2025 Medications Medication SIG (Take, Route, Frequency, Duration) Notes Start Date End Date Status Hydrocortisone 1 % 1 application Hvac Service Technician ally Twice a day 01/27/2025 Active Albuterol Sulfate (2.5 MG/3ML) 0.083% Inhalation Active Nystatin 080744 UNIT/GM APPLY TOPICALLY 3 TIMES A DAY [...] Problem Status W/U Status Risk Notes Problem 0370574 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 Problem Hyperlipidemia (20751321) Hyperlipidemia (E78.5) Active confirmed Distal cholesterol is stable but his triglycerides are elevated. He will continue on his current diet until he has fully recovered from the stroke. He will continue on his medications. Problem 93516961 Hyponatremia (E87.1) Active confirmed After admission to [facility] he required hypertonic saline and then 1 g of sodium chloride tablets 3 times a day to restore his potassium to normal. He was discharged without this. Blood work with a sodium level will be checked frequently. Problem 211736665 Underweight (R63.6) Active confirmed His appetite is better and he is feeling stronger. His body mass index is now 19. We continue our discussions on diet and nutrition. 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 A recent chest x-ray shows worsening airspace disease in right lung. He is due to see pulmonary within the next week. He has a cough which is nonproductive and is afebrile. n. Problem 37263014 Orthostatic hypotension (I95.1) Active confirmed He developed th is at home and was brought to the [facility] emergency of December 30, 2024 and admitted overnight for hydration. We have discussed aggressive hydration and adequate nutrition. Problem 167122859 Rosacea (L71.9) Active confirmed He was given metronidazole gel. He was instructed in its use. Problem 502737785 Pulmonary nodule (R91.1) Active confirmed This is being observed. No change in his symptoms have been noted. Problem 406723529 Adenoma of ascending colon (D12.2) Active confirmed He will call he r gastroenterologis t to see if additional colonoscopies will be recommended. Problem 022128645 Hypertrophy of prostate without urinary obstruction and other lower urinary tract symptoms (LUTS) (N40.0) Active confirmed He has been usi ng lifestyle modification and now experiences nocturia only once a night. Problem 08631930 Abdominal hernia without obstruction and without gangrene, recurrence not specified, unspecified hernia type (K46.9) Active confirmed The hernia is n ow asymptomatic and will be observed without treatment. Problem Pneumonia (089840464) Pneumonia (J18.9) Active confirmed He is taking th e azithromycin 3 times a week. The other antibiotic has been discontinued. The pneumonia has resolved. He is breathing comfortably. Problem Seizure (91980289) Seizures (R56.9) Active confirmed Just before discharge from an [facility] he was begun on Keppra for periods of unresponsiveness. A repeat CT scan November 18, 2024 showed improvement in the hemorrhage and edema. The Her will be discontinued until the electroencephalog jackie is done. We have requested a repeat visit from [facility] neurology. Problem Stroke (789876718) Stroke (I63.9) Active confirmed Problem Benign prostatic hypertrophy without outflow obstruction (865168304) Benign prostatic hyperplasia without lower urinary tract symptoms (N40.0) Active confirmed Problem 8876462291217 Benign prostatic hyperplasia with lower urinary tract symptoms (N40.1) Active confirmed He says he is rising from sleep up to 4 times a night. His tamsulosin waas stopped because of a low blood pressure. It curtis now resumed. He is happy with this level of control. We discussed further lifestyle modifications he can maake to reduce nocturia. Problem Disorder of musculoskeletal system (445067) Leg weakness, bilateral (R29.898) Active confirmed Problem 24177061 Sleep apnea in adult (G47.30) Active confirmed He is using t he new CPAP machine without difficulty and is pleased with the results. Problem 78055987 Generalized weakness (R53.1) Active confirmed He was [...] tract infection or acute metabolic problem. 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 Problem 74142210 Atrial arrhythmia (I49.8) Active confirmed He was in a normal sinus rhythm today with no abnormalities. He has had no episodes of tachycardia, syncope or palpitations. 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 and Sleep apnea in adult G47.30 Robbie Kothari III, MD [address] [place] [address] [place] [address] 11/21/2024 Robbie Kothari Hyperlipidemia E78.5 ; Nontraumatic [...] adult G47.30 Robbie Kothari III, MD [address] [facility] [place] [address] 12/02/2024 Robbie Kothari Hyperlipidemia E78.5 ; 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 ; Pneumonia J18.9 ; Former smoker Z87.891 ; Mycobacterial infection, unspecified A31.9 ; Sleep apnea in adult G47.30 and Benign prostatic hyperplasia with lower urinary tract symptoms N40.1 Robbie Kothari III, MD [address] [place] [address] [place] [address] 12/19/2024 Robbie Kothari Hyperlipidemia E78.5 ; 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 ; Pneumonia J18.9 ; Underweight R63.6 ; Seizures R56.9 ; Former smoker Z87.891 ; Mycobacterial infection, unspecified A31.9 ; Sleep apnea in adult G47.30 and Benign prostatic hyperplasia with lower urinary tract symptoms N40.1 Robbie Kothari III, MD [address] [place] [address] [place] [address] 01/04/2025 Robbie Kothari Orthostatic hypotens ion I95.1 ; Former smoker Z87.891 ; Atrial arrhythmia I49.8 ; Hyperlipidemia E78.5 ; Rosacea L71.9 ; Benign prostatic hyperplasia with lower urinary tract symptoms N40.1 ; 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 ; Underweight R63.6 and Pneumonia J18.9 Robbie Kothari III, MD [address] [place] [address] [place] [address] 01/13/2025 Robbie Kothari Generalized weakness R53.1 ; Hyperlipidemia E78.5 ; Former smoker Z87.891 ; Hypertrophy of prostate without urinary obstruction and other lower urinary tract symptoms (LUTS) N40.0 ; Mycobacterial infection, unspecified A31.9 ; Underweight R63.6 ; 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 ; Orthostatic hypotension I95.1 and Pneumonia J18.9 Robbie Kothari III, MD [address] [place] [address] [place] [address] 01/27/2025 Robbie Kothari Former smoker Z87.89 1 [...] Generalized weakness R53.1 Robbie Kothari III, MD [address] [place] [address] [place] [address] 02/24/2025 Robbie Kothari Mycobacterial infect ion, unspecified A31.9 ; 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 ; Benign prostatic hyperplasia with lower urinary tract symptoms N40.1 ; Seizures R56.9 ; Hyponatremia E87.1 ; Former smoker Z87.891 ; Generalized weakness R53.1 and Acute gout of left hand, unspecified cause M10.9 Robbie Kothari III, MD [address] [place] [address] [place] [address] 03/20/2025 Robbie Kothari Former smoker Z87.89 1 ; Hyperlipidemia 272.4 ; Benign prostatic hyperplasia without lower urinary tract symptoms N40.0 ; Mycobacterial infection, unspecified A31.9 ; Underweight R63.6 ; Anterior subcapsular polar age-related cataract of both eyes H25.033 ; Seizures R56.9 and 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 Robbie Kothari III, MD [address] [place] [address] [place] [address] 10/28/2024 Robbie Kothari III, MD [address] [place] [address] [place] [address] 11/21/2024 Robbie Kothari III, MD [address] [place] [address] [place] [address] 11/21/2024 Robbie Kothari III, MD [address] [place] [address] [place] [address] 11/22/2024 Robbie Kothari III, MD [address] [place] [address] [place] [address] 11/22/2024 Robbie Kothari III, MD [address] [place] [address] [place] [address] 11/25/2024 Robbie Kothari III, MD [address] [place] [address] [place] [address] 11/25/2024 Robbie Kothari III, MD [address] [place] [address] [place] [address] 12/05/2024 Robbie Kothari III, MD [address] [place] [address] [place] [address] 12/14/2024 Robbie Kothari III, MD [address] [place] [address] [place] [address] 12/20/2024 Robbie Kothari III, MD [address] [place] [address] [place] [address] 01/02/2025 Robbie Kothari III, MD [address] [place] [address] [place] [address] 01/03/2025 Robbie Kothari III, MD [address] [place] [address] [place] [address] 01/06/2025 Robbie Kothari III, MD [address] [facility] [place] [address] 01/13/2025 Rbobie Kothari III, MD [address] [facility] [place] [address] 01/17/2025 Robbie Kothari III, MD [address] [place] [address] [place] [address] 01/17/2025 Robbie Kothari III, MD [address] [facility] [place] [address] 02/07/2025 Robbie Kothari III, MD [address] [facility] [place] [address] 02/10/2025 Robbie Kothari III, MD [address] [place] [address] [place] [address] 02/24/2025 Robbie Kothari III, MD [address] [place] [address] [place] [address] 02/27/2025 Robbie Kothari III, MD [address] [place] [address] [place] [address] 03/03/2025 Robbie Kothari III, MD [address] [place] [address] [place] [address] 03/09/2025 Robbie Kothari III, MD [address] [place] [address] [place] [address] 03/10/2025 Robbie Kothari Assessments Encounter Date Diagnosis [...] at home and was brought to the [facility] emergency of December 30, 2024 and [...] We have requested a repeat visit from [facility] neurology. 12/02/2024 Pneumonia (ICD-10 - J18.9) [...] Hyponatremia (ICD-10 - E87.1) After admission to [facility] he required hypertonic saline and then [...] We have requested a repeat visit from [facility] neurology. 03/20/2025 Mycobacterial infection, unspecified (ICD-10 [...] We have requested a repeat visit from [facility] neurology. 01/04/2025 Rosacea (ICD-10 - L71.9) [...] Hyponatremia (ICD-10 - E87.1) After admission to [facility] he required hypertonic saline and then [...] We have requested a repeat visit from [facility] neurology. 02/24/2025 Former smoker (ICD-10 - [...] Hyponatremia (ICD-10 - E87.1) After admission to [facility] he required hypertonic saline and then [...] R56.9) Just before discharge from an [facility] rehabilitation he was begun on Keppra for periods of unresponsiveness. A repeat CT scan November 18, 2024 showed improvement in the hemorrhage and edema. The Her will be discontinued until the electroencephalogram is done. We have requested a repeat visit from [facility] neurology. 11/21/2024 Rosacea (ICD-10 - L71.9) [...] at home and was brought to the [facility] emergency of December 30, 2024 and [...] Details Provider Name:Robbie Kothari, 05/02/2025 11:00:00 AM, [address] [place] [address] [address], [place], [address], Provider Name:Robbie Kothari, 01/29/2026 09:30:00 AM, [address] [place] [address] [address], [place], [address], Insurance Providers Payer Name Payer Address Payer Phone Subscriber Number Group Number Insured Name Patient Relationship to Insured Coverage Start Date Coverage End Date [employer] Medicare [employer]vantage [address] [address] [place] [address] [phone] [id number] Freeman King Self - patient is the insured MEDICARE NGS [address] [place] [phone] [id number] Freeman King Self - patient is the insured Medical (General) History Medical History History ICD Code colonic poyps 2003 benign prostatic hyperplasia (BPH) hyperlipidemia left herniorraphy age 30 neck and right shoulder pain 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
--- OUTSIDE RECORDS SUMMARY | 2025-05-01 08:53 | XMS_ITS | Encounter Summary ---
Author Organization [facility] Address [address] [place] [address] Care Team Providers Care Puttying And Calking Supervisor Name Role Phone Gloria Preston MD Primary Care Provider [phone] Encounter Details Date Type Department Care Team (Late st Contact Info) Description 11/05/2024 Lab Requisition [facility] - Main Lab [address] [facility] [place] [address] Gloria Preston MD [address] [place] [id number] Encounter for other general examination Social History [...] CBC auto differential (11/05/2024 5:51 AM EST) [facility] WBC 8.0 4.8 - 10.8 K/mcL LAB [...] [facility] [address] [place] [address], [place] [phone] * Magnesium (11/05/2024 5:51 AM EST) [facility] Magnesium 2.0 1.9 - 2.6 mg/dL LAB CHEMISTRY METHOD 11/05/2024 11:42 AM EST [facility] LAB Blood Venous blood specimen / Unknown Venipuncture / Unknown 11/05/2024 5:51 AM EST 11/05/2024 9:43 AM EST us Gloria Preston MD LAB BLOOD ORDERABLES Final Resu lt Performing Organization Address City/[facility]/ZIP Co de Phone Number [facility] [address] [place] [address], [place] [phone] * (ABNORMAL) Comprehensive metabolic panel (11/05/2024 5:51 AM EST) [facility] Sodium 133 133 - 145 mmol/L LAB [...] MD LAB BLOOD ORDERABLES Final Resu lt [facility] [address] [place] [address], documented in this encounter Visit Diagnoses Diagnosis Encounter for other general examination documented in this encounter Care Teams Puttying And Calking Supervisor Relationship Specialty Start Date End Date Gloria Preston MD [address] [place] [id number] PCP - General Hospitalist Medicine 11/05/24 documented as of this encounter
--- OUTSIDE RECORDS SUMMARY | 2025-05-01 08:53 | XMS_ITS | Patient Health Record ---
Author Organization [facility] Address [address] [place] [address] Care Team Providers Care Polytechnic Registrar Name Role Phone Robbie Kothari MD Primary Care Provider Ana Rosales Unavailable [phone] Allergies Allergen (clinical drug ingredient) Drug/Non Drug [...] W/U Status Risk Notes Problem Atherosclerosis of [place] artery of both lower extremities, with unspecified presence of clinical manifestation (I70.203) Active confirmed Q7(A), Q8(2B), Q9(1B,2C) Vital Signs Blood pressure diastolic 58 mm Hg 03/28/2025 Height 6 ft 4 in in 03/28/2025 Blood pressure systolic 114 mm Hg 03/28/2025 Weight 150 lbs 03/28/2025 BMI 18.26 kg/m2 03/28/2025 Encounters Encounter Location Date Provider Diagnosis [address] [address] 06/28/2024 Ana Perica Tinea unguium B35.1 ; Pain in right toe(s) M79.674 and Pain in left toe(s) M79.[address] [address] 09/27/2024 Ana Perica Tinea unguium B35.1 ; Pain in right toe(s) M79.674 and Pain in left toe(s) M79.[address] [address] 12/27/2024 Ana Perica Tinea unguium B35.1 ; Pain in right toe(s) M79.674 and Pain in left toe(s) M79.[address] [address] 03/28/2025 Ana Perica Atherosclerosis of [place] artery of both lower extremities, with unspecified [...] unguium (ICD-10 - B35.1) 03/28/2025 Atherosclerosis of [place] artery of both lower extremities, with unspecified [...] Details Provider Name:Ana garduno, 07/04/2025 09:15:00 AM, [address] [place] [address], [phone], Insurance Providers Payer Name Payer Address Payer Phone Subscriber Number Group Number Insured Name Patient Relationship to Insured Coverage Start Date Coverage End Date [facility] Medicare-[id number] [address] [place] [address] [id number] Freeman King Self - patient is the insured Medical (General) History Medical History History ICD Code Measles Mumps Chicken pox Stroke Surgical History Surgery Date(Month/Year) hernia colonoscopy Hospitalization History Reason Date(Month/Year) [facility]- Stroke 10/2024
--- OUTSIDE RECORDS SUMMARY | 2025-05-01 08:53 | XMS_ITS | Patient Health Record ---
Author Organization [facility] Address [address] [place] [address] Care Team Providers Care Continuous Wave Operator Name Role Phone Robbie Kothari MD Primary Care Provider UnavailRobbie Koo Unavailable [phone] Reason For Referral No Information Medications Medication [...] Problem Status W/U Status Risk Notes Problem [id number] Encounter for screening for malignant neoplasm of colon (Z12.11) Active confirmed Problem [id number] Hx of adenomatous colonic polyps (Z86.010) Active confirmed Problem [id number] Pre-procedural examination (Z01.818) Active confirmed Plan Of Treatment Future Test Test Name Order Date COLONOSCOPY 06/15/2018 Insurance Providers Payer Name Payer Address Payer Phone Subscriber Number Group Number Insured Name Patient Relationship to Insured Coverage Start Date Coverage End Date MEDICARE OF [place] [address] [place] [address] [id number] [id number] ROCHA Self - patient is the insured [facility] Insurance C/O [facility] [address] [place] [address] [id number] [id number] ROCHA Self - patient is the insured Medical (General) History Medical History History ICD Code Denies [place],DM,CVA,Lung disease,renal dise ase Hyperlipidemia Colonoscopy 2002-small tubul ar adenoma removed; colonoscopy in 2008 was negative--just diverticulosis and internal hemorrhoids Surgical History Surgery Date(Month/Year) Left inguinal hernia Skin cancers with skin grafts
--- NOTE | 2025-05-01 08:56 | A.OFFVIS_ITS ---
Intake Visit Reasons: 3m/US/PSA Intake Note: New patient presents today: 3MO FOLLOW UP Urology Medication: TAMSULOSIN, NYSTATIN Blood Thinner:None PVR: 295 MLS Agricultural Economist Required: No Accompanied by: Spouse Allergies latex (LATEX) Allergy (Intermediate, Verified 05/01/25 20:29) RASH Band-Aid Allergy (Severe, Uncoded 05/01/25 20:29) rash neosporin Allergy (Severe, Uncoded 05/01/25 20:29) rash Medication List - Last Reconciled 05/01/25 by TIFFANIE Ramírez- albuterol sulfate 2.5 mg inhalation BID atorvastatin PO DAILY azithromycin 500 mg PO DAILY 30 days finasteride 5 mg PO DAILY 90 days nebulizers As directed rifampin 600 mg (2 x 300 mg) PO DAILY tamsulosin 0.8 mg (2 x 0.4 mg) PO BEDTIME 90 days HPI Comments Details: Freeman is a very pleasant 85-year-old male patient of Dr. Kothari who was accompanied by his Dominique at today's office visit. He has a past medical history of COPD, hernia, hyperlipidemia, BPH, pulmonary nodule, and CVA. He presents to the office today for follow-up. Of note, patient was seen approximately 3 months ago as a new patient for ongoing urinary issues he had been experiencing (urinary dribbling and feeling of incomplete bladder emptying) at which time a retroperitoneal ultrasound was ordered for further assessment evaluation. These results were reviewed and communicated with the patient and his today. 05/08 bilateral kidneys with normal parenchymal echotexture and thickness bilaterally. There is no hydronephrosis noted bilaterally. Right kidney with 6 mm nonobstructing calculus in the upper pole. Right kidney with 7 mm interpolar region cyst. The urinary bladder is unremarkable. Increased postvoid residual during retroperitoneal ultrasound was noted to be 475 mL. Prostate measures approximately 47 mL. In office urinalysis results reviewed with the patient today. PVR today 295 mL which is decreased since last office visit. We did discussed potential causes of lower urinary tract symptoms patient is experiencing as well as incomplete bladder emptying. We did discussed further treatment options and risks and benefits of these treatment options. He does report feeling episodes of nocturia have decreased to 1 time per night with initiation of tamsulosin. He otherwise denies hematuria, dysuria, foul smelling urine, flank pain, fever, and or chills. He reports having had DEMARIO with PCP and patient was noted to have an enlarged prostate. He denies having had any bothersome urinary issues prior to his stroke. All questions were answered. He otherwise offers no other issues or concerns at this time. In review of patient's chart it appears PSA 01/06 3.0 PFSH Medical History Bronchiectasis COPD (chronic obstructive pulmonary disease) Mycobacterial disease Hernia HLD (hyperlipidemia) BPH (benign prostatic hyperplasia) Bronchiectasis Hemoptysis Pulmonary nodules Cough Abnormal chest x-ray Surgical History Hx of colonoscopy Social History Household Members: Spouse Housing: House Do you presently have visiting nurse or other home services: Yes Alcohol intake: former Patient Tobacco Use Status: Former Tobacco user Tobacco use type: Cigarette Years Smoked: 20 years service: Yes Review of Systems Eyes Reports no additional complaints ENT Reports no additional complaints Card Reports as per HPI Resp Reports as per HPI GI Reports no additional complaints Reports as per HPI Musc Reports as per HPI Neuro Reports as per HPI Psych Reports no additional complaints Endo Reports no additional complaints Brad/Lymph Reports no additional complaints Aller/Immun Reports no additional complaints Physical Exam Const General: cooperative, comfortable, no acute distress, well developed, alert and awake Orientation/consciousness: oriented to person Limitations: ambulation with walker HEENT Head: Yes normal to inspection, Yes normocephalic and Yes atraumatic Ears: hearing grossly normal bilaterally Eyes General: appearance normal, both eyes and all related structures Neck Neck: Yes normal visual inspection and Yes trachea midline Chest Chest palpation & inspection: normal inspection of the chest Resp Effort & Inspection: normal respiratory effort and able to speak in complete sentences Cardio Rate: regular rate GI Inspection: Yes normal to inspection General: Yes no CVA tenderness Back/Spine/Pelvis Back: no CVA tenderness Skin General skin exam: no rashes or lesions noted Neuro General: oriented to person Extrem General: Yes normal to inspection Psych Appearance: grossly normal and well kempt Mental Status: mental status grossly normal Speech and movement: Normal speech and movement present and Clear speech present Affect: normal affect Attitude: cooperative Thought process: Normal thought process present Thought content: Normal thought content present Insight: Fair insight present (Psych) Judgement: Fair judgement present (Psych) Office Procedures Post Void Residual Post Residual Void Post Void Residual (PVR): 295 [id number] Void Residual by ultrasound Results Reviewed Results Reviewed: Date of Service: 04/24/25 Procedure(s): US retroperitoneal comp FINDINGS: Right kidney: The right kidney measures 11.7 x 5.5 x 6.4 cm. Renal parenchymal echotexture and thickness are normal. There is a 5.8 x 4.5 x 6.5 cm cyst in the interpolar region and a 2.9 x 3.2 x 2.9 cm cyst at the lower pole. There is a 5 x 6 x 5 mm nonobstructing calculus at the upper pole. It is no hydronephrosis. Left Kidney: The left kidney measures 10.5 x 5.8 x 4.7 cm. Renal parenchymal echotexture and thickness are normal. There is an 8 x 6 x 7 mm cyst in the interpolar region. There is no hydronephrosis or renal calculi. The urinary bladder is unremarkable. Bilateral ureteral jets are identified. Before voiding, the urinary bladder measured 13.3 x 10.7 x 11.8 cm, for an estimated volume of 881 mL. After voiding, the urinary bladder measured 9.6 x 10.0 x 9.2 cm, for an estimated volume of 473 mL. The prostate measures 4.7 x 4.2 x 4.5 cm, for an estimated volume of 46.5 mL. IMPRESSION: 1. 6 mm nonobstructing right upper pole renal calculus. 2. Bilateral renal cysts as described. 3. Post void bladder residual of 473 mL. 4. Prostate volume of 46.9 mL. Assessment & Plan Assessment & Plan (1) Incomplete bladder emptying: Code(s): R33.9 - Retention of urine, unspecified Category: Medical (2) Urinary dribbling: Code(s): N39.43 - Post-void dribbling Category: Medical (3) Nocturia: Code(s): R35.1 - Nocturia Category: Medical (4) Enlarged prostate: Code(s): N40.0 - Benign prostatic hyperplasia without lower urinary tract symptoms Category: Medical (5) BPH loc w urin obs/LUTS: Code(s): N40.1 - Benign prostatic hyperplasia with lower urinary tract symptoms Category: Medical (6) Renal cyst: Code(s): N28.1 - Cyst of kidney, acquired Category: Medical (7) Nephrolithiasis: Code(s): N20.0 - Calculus of kidney Category: Medical Plan In office urinalysis results reviewed with the patient today; as noted above. PVR 295 mL. Start finasteride as discussed and prescribed. Will increase Flomax to 2 capsules per day; prescription provided. We discussed nephrolithiasis, enlarged prostate, and incomplete bladder emptying. We discussed importance of adequate hydration relation to nephrolithiasis as well as overall health and well-being. Will continue with surveillance monitoring. We did discussed attempting to double void to assist with bladder emptying Will obtain PSA in 3 months. Follow-up in 3 months with PSA and PVR; or sooner with any issues, concerns, and or questions. Orders: Orders AMB Post Void Residual by ultrasound Today R33.9 - Retention of urine, unspecified Prostate Specific Antigen 3 Months N39.43 - Post-void dribbling, N40.0 - Benign prostatic hyperplasia without lower urinary tract symptoms, N40.1 - Benign prostatic hyperplasia with lower urinary tract symptoms, R33.9 - Retention of urine, unspecified, R35.1 - Nocturia Medications: New finasteride 5 mg PO DAILY 90 tabs 1RF 90 days N13.8 - Other obstructive and reflux uropathy, N40.1 - Benign prostatic hyperplasia with lower urinary tract symptoms, R33.9 - Retention of urine, unspecified Changed From tamsulosin 0.4 mg PO BEDTIME 30 days 30 caps 3RF N40.1 - Benign prostatic hyperplasia with lower urinary tract symptoms, R35.1 - Nocturia To tamsulosin This is an increase in dosage 0.8 mg (2 x 0.4 mg) PO BEDTIME 180 caps 3RF 90 days N40.1 - Benign prostatic hyperplasia with lower urinary tract symptoms, R35.1 - Nocturia Patient Instructions: The patient had an opportunity to ask questions regarding the treatment plan. All questions were answered. Physical exam, labs, and imaging were discussed and reviewed in detail. As well as risks, benefits, and discussion of treatment choices. No major barriers to understanding were identified. The patient expressed understanding and agreement with the above treatment plan. The patient was made aware they should contact our office by phone for worsening of their current condition, the appearance of new symptoms, or with any questions or concerns. Compliance is encouraged with any medications and follow up testing that is ordered. It is a privilege to be allowed the opportunity to participate in? your urological care.? Again, if you have any questions or concerns If you have any questions or concerns please do not hesitate to contact me. The office is [phone]. This note is constructed using voice recognition software. While every effort has been made to ensure accuracy manager analytical errors may have been included. Yours sincerely, JULIUS Ramírez Coding Level of Care Code Est Pt Level 4 (61895) Complex EM visit Add On G2211 Diagnoses Incomplete bladder emptying R33.9 Urinary dribbling N39.43 Nocturia R35.1 Enlarged prostate N40.0 BPH loc w urin obs/LUTS N40.1 Renal cyst N28.1 Nephrolithiasis N20.0 CPT Codes Post Residual Void - PVR CPT Code: 17112-Qqdw Void Residual by ultrasound ([id number])
== END 2025-05-01 09:48 | disposition home or self-care (01) ==
LOC: HO.HUSH 08:28
PROVIDERS: PCP Internal Medicine Medical Oncology; Visit Provider Nurse Practitioner Family
DX: R33.9 Retention of urine, unspecified (principal); N39.43 Post-void dribbling; R35.1 Nocturia; N40.0 Benign prostatic hyperplasia without lower urinary tract symptoms; N40.1 Benign prostatic hyperplasia with lower urinary tract symptoms; N28.1 Cyst of kidney, acquired; N20.0 Calculus of kidney
CPT/HCPCS: 99214; G2211

== ENCOUNTER → 2025-05-01 08:27 | Outpatient (BNVA) | payer MEDICARE, SELFPAY | PROVIDERS: PCP Internal Medicine Medical Oncology; Visit Provider Nurse Practitioner Family | DX: N40.1 Benign prostatic hyperplasia with lower urinary tract symptoms (principal); R33.9 Retention of urine, unspecified; R35.1 Nocturia; N39.43 Post-void dribbling; N28.1 Cyst of kidney, acquired; N20.0 Calculus of kidney | CPT/HCPCS: 51798; 99212 ==

== ENCOUNTER 2025-05-24 09:44 | Outpatient (REF) | payer MEDICARE, SELFPAY ==
--- OUTSIDE RECORDS SUMMARY | 2025-03-03 05:40 | XMS_ITS ---
Author Organization Robbie Kothari III, MD Address [address] [place] [address] [place] [address] Care Team Providers Care Workers Compensation Specialist Name Role Phone Robbie Kothari Primary Care Provider REASON FOR VISIT ? Rx Social History Sex Assigned At : Social History Observation Description Sex Assigned At Male Encounters Encounter Location Date Provider Diagnosis Robbie Kothari III, MD [address] [place] [address] [place] [address] 03/03/2025 Robbie Kothari Plan Of Treatment Next Appt Details Provider Name:Robbie Kothari, 07/17/2025 10:00:00 AM, [address] [place] [address] [place], [address], Provider Name:Robbie Kothari, 01/29/2026 09:30:00 AM, [address] [place] [address] [place], [address], Progress Notes * Freeman ROCHADOB: 0 (85 yo M)Acc No.[id number]:03/03/2025 Patient: Freeman CAZARES :1940 A ge:85 Y S ex:Male Address:[place] [address] * true * Date: Generated for Printi ng/Faxing/eTransmitting on: 0 05/24/2025 11:38 AM EDT
--- OUTSIDE RECORDS SUMMARY | 2025-03-09 10:18 | XMS_ITS ---
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) Referral Organization Robbie Kothari III, MD Referring Provider First Name Robbie Referring Provider Last Name Saniya Referring Provider Speciality Internal M edicine Referred Provider [facility] er, Speech and Hearing Referred Provider Specialty Unknown General Notes DSarika 03/09/2025 02:27:01 PM > Referral and last progress not faxed Referral Priority Routine Referral Appointment Date 03/15/2025 REASON FOR VISIT referral Social History Sex Assigned At : Social History Observation Description Sex Assigned At Male Encounters Encounter Location Date Provider Diagnosis Robbie Kothari III, MD [address] [place] [address] [place] [address] 03/09/2025 Robbie Kothari Plan Of Treatment Referrals Referral Date Details 03/09/2025 03/09/2025, Evaluate and Treat Physical Therapy OT, Core Physical Therapy [facility], [address] [place] [address], [place], [place], [phone], 03/09/2025 03/09/2025, Evaluate and Treat Speech Therapy, Speech and Hearing [facility] Next Appt Details Provider Name:Robbie Kothari, 07/17/2025 10:00:00 AM, [address] [place] [address] [address], [place], [address], Provider Name:Robbie Kothari, 01/29/2026 09:30:00 AM, [address] [place] [address] [address], [place], [address], Progress Notes * Freeman ROCHADOB: 0 (85 yo M)Acc No.[id number]:03/09/2025 Patient: Aranza ALBRECHTFreeman Roque :1940 A ge:85 Y S ex:Male Address:[address] [place], [place] [address] [address] Subjective: * Chief Complaints: * R eferral * Medical History: * Surgical History: * Hospitalization/Major Diagno stic Procedure: * Medications: Objective: * Vitals: * Physical Examination: Assessment: Plan: * Treatment: * Procedure Codes: * true * Date: Generated for Chip andres/Awais/eTransmitting on: 0 05/24/2025 11:37 AM EDT Consultation Request Notes Referral Date Referring Provider Referred Provider Not es 03/09/2025 Saniya [facility], Core Physical Therapy Evaluate and Treat Physical Therapy OT 03/09/2025 Sanyia [facility], Speech and Hearing Evaluate and Treat Speech Therapy
--- OUTSIDE RECORDS SUMMARY | 2025-03-10 05:22 | XMS_ITS ---
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 Name Role Phone Robbie Kothari Primary Care Provider [phone] REASON FOR VISIT Refill request Medications Medication SIG (Take, Route, Fr equency, Duration) Notes Start Date End Date Status predniSONE 20 MG 1 tablet with food o r milk Orally Once a day for 10 days 03/10/2025 05/09/2025 Active Social History Sex Assigned At : Social History Observation Description Sex Assigned At Male Encounters Encounter Location Date Provider Diagnosis Robbie Ktohari III, MD [address] [place] [address] [place] [address] 03/10/2025 Robbie Kothari Plan Of Treatment Medication Medication Name Sig Start Date Stop Date Notes predniSONE 20 MG 1 tablet with food o r milk Orally Once a day for 10 days 03/10/2025 05/09/2025 Next Appt Details Provider Name:Robbie Kothari, 07/17/2025 10:00:00 AM, [address] [place] [address] [place], [address], Provider Name:Robbie Kothari, 01/29/2026 09:30:00 AM, [address] [place] [address] [place], [address], Progress Notes * Freeman ROCHADOB: 0 (85 yo M)Acc No.[id number]:03/10/2025 Patient: Freeman CAZARES :1940 A ge:85 Y S ex:Male Address:[address] [place], [place] [address] [address] * Refills Start predniSONE Tablet, 20 MG, Orally, 10 Tablet, 1 tablet with food or milk, Once a day, 10 days, Refills=5 * true * Date: Generated for Chip andres/Awais/Juaquinitting on: 0 05/24/2025 11:38 AM EDT
--- OUTSIDE RECORDS SUMMARY | 2025-03-20 06:45 | XMS_ITS ---
Author Organization Robbie Kothari III, MD Address [address] [place] [address] Care Team Providers Care Commercial Real Estate Appraiser Name Role Phone Robbie Kothari Primary Care [...] Notes Start Date End Date Status Nystatin 874420 UNIT/GM APPLY TOPICALLY 3 TIMES A DAY [...] 03/10/2025 Active Hydrocortisone 1 % 1 application Offshoring Manager ally Twice a day 01/27/2025 Active Albuterol [...] Problem Status W/U Status Risk Notes Problem Benign prostatic hypertrophy without outflow obstruction (066088843) Benign prostatic hyperplasia without lower urinary tract symptoms (N40.0) Active confirmed Vital Signs Temperature 97.4 degrees Fahrenheit 03/20/20 25 Blood pressure systolic 121 mm Hg 03/20/20 25 Blood pressure diastolic 72 mm Hg 025 Heart Rate 77 /min 03/20/2025 Respiratory Rate 16 /min 03/20/2025 Height 76 in 03/20/2025 Weight 164 lbs 03/20/2025 BMI 19.96 kg/m2 03/20/2025 Oximetry 98 % 03/20/2025 Encounters Encounter Location Date Provider Diagnosis Robbie Kothari III, MD [address] [place] [address] [address] [place], [place] [address] 03/20/2025 Robbie Kothari Former smoker Z87.89 1 ; Hyperlipidemia 272.4 [...] We have requested a repeat visit from [facility] neurology. 03/20/2025 Nontraumatic hemorrhage of left [...] Sig Start Date Stop Date Notes Nystatin 237023 UNIT/GM APPLY TOPICALLY 3 TIMES A DAY FOR 30 DAYS APPLY TO THE AFFECTED AREA THREE TIMES A DAY External Atorvastatin Calcium 10 MG 1 tablet Orally Once a day Azithromycin 500 MG Oral Tamsulosin HCl 0.4 MG Oral predniSONE 20 MG 1 tablet with food o r milk Orally Once a day 03/10/2025 Hydrocortisone 1 % 1 application Offshoring Manager ally Twice a day 01/27/2025 Albuterol Sulfate (2.5 MG/3M L) 0.083% Inhalation Next Appt Details Follow Up: 6 Weeks, Reason: ov Provider Name:Robbie Kothari, 07/17/2025 10:00:00 AM, [address] [place] [address] [address], [place], [address], Provider Name:Robbie Kothari, 01/29/2026 09:30:00 AM, [address] [place] [address] [address], [place], [phone], Progress Notes * Freeman ROCHADOB: 0 (85 yo M)Acc No.[id number]:03/20/2025 Progress Notes Patient: Aranza Freeman BURGESS Provider: Mike Kothari MD :1940 A ge:85 [...] x-cigarette smoker H e has been to [facility] for 43 years and has 2 children and 2 grandchildren. 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 * Medications: T akingTamsulosin HCl 0.4 MG Capsule 1 capsule Orally at bed time Azithromycin 500 MG Tablet 1 tablet Orally Once a day Atorvastatin Calcium 10 MG Tablet 1 tablet Orally Once a day Nystatin 283193 UNIT/GM Powder APPLY TOPICALLY 3 TIMES A [...] tablet Orally Once a day Taking Nystatin 664031 UNIT/GM Powder APPLY TOPICALLY 3 TIMES A [...] otes :Just before discharge from an [facility] rehabilitation he was begun on Keppra for periods of unresponsiveness. A repeat CT scan November 18, 2024 showed improvement in the hemorrhage and edema. The Her will be discontinued until the electroencephalogram is done. We have requested a repeat visit from [facility] neurology. 8 . N ontraumatic hemorrhage [...] Once a day; C ontinue Nystatin Powder, 820966 UNIT/GM, APPLY TOPICALLY 3 TIMES A DAY [...] true * Provider: Mike Kothari MD Date: 03/20/2025 Generated for Chip andres/Awais/Juaquinitting on: 05/24/2025 11:38 AM EDT History and Physical Notes * [...]
--- OUTSIDE RECORDS SUMMARY | 2025-05-02 07:00 | XMS_ITS ---
Author Organization Robbie Kothari III, MD Address [address] [place] [place] [address] Care Team Providers Care Edge Grinder Name Role Phone Robbie Kothari Primary Care Provider [phone] Allergies Allergen (clinical drug ingredient) Drug/Non Drug [...] Date Provider Diagnosis Robbie Kothari III, MD [address] [place] [address] [place] [address] 05/02/2025 Robbie Kothari Former smoker Z87.89 1 [...] OV Provider Name:Robbie Kothari, 07/17/2025 10:00:00 AM, [address] [place] [address] [address], [place], [address], Provider Name:Robbie Kothari, 01/29/2026 09:30:00 AM, [address] [place] [address] [address], [place], [address], Progress Notes * Freeman ROCHADOB: 0 (85 yo M)Acc No.[id number]:05/02/2025 Progress Notes Patient: Aranza Freeman B[place]GESS Provider: Mike Kothari MD :1940 A ge:85 Y S ex:Male Date:05/02/2025 Address:[address], [id number] Subjective: * Chief Complaints: * M ycobacterium avium pulmonary infectionHyperlipidemiaBenign prosthetic hypertrophyCerebral hemorrhageLeft cerebral hemorrhageSeizuresPostural hypotension * HPI: C OVID-19 Screening: Jose guerrero returns for ongoing medical management. He is now taking Ryskamp in from the discharge specialist for his mycobacterial pulmonary infection. He [...] x-cigarette smoker H cesar has been to [facility] for 43 years and has 2 children and 2 grandchildren. 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 He was born in [place], [place]. * Medications: T akingTylenol PM Extra [...] DiscontinuedTamsulosin HCl 0.4 MG Capsule Oral Nystatin 787259 UNIT/GM Powder APPLY TOPICALLY 3 TIMES A [...] HCl 0.4 MG Capsule Oral Discontinued Nystatin 781985 UNIT/GM Powder APPLY TOPICALLY 3 TIMES A [...] 05/02/2025 Generated for Larisai dmitry/Awais/Juaquinitting on: 0 05/24/2025 11:37 AM EDT History and Physical Notes * [...]
--- NOTE | ~2025-05-24 | XR_ITS ---
EXAMINATION: XR CHEST CLINICAL INFORMATION: R91.8 - Other nonspecific abnormal finding of lung field COMPARISON: April 12, 2025. TECHNIQUE: 2 views of the chest were obtained. FINDINGS: Hyperinflated lungs. Pulmonary reticular nodular pattern with linear opacities in the right upper hemithorax. Bronchiectasis, right upper lung lobe. No pleural effusion or pneumothorax. Cardiomediastinal silhouette size is small. Calcified plaque thoracic aorta with tortuosity. S-shaped curvature of the thoracic spine. Osteopenia versus osteoporosis. XR/XR chest 2V IMPRESSION: COPD emphysematous type changes with bronchiectasis more prominent in the right upper lung lobe. Superimposed inflammatory versus infectious versus neoplasm cannot be excluded. Overall stable since prior exam. Electronically signed by: Lázaro Ely MD 05/24/2025 12:06 PM EDT
--- OUTSIDE RECORDS SUMMARY | 2025-05-24 11:37 | XMS_ITS | Clinical Summary ---
Author Organization [facility] Address [address] [place] [address] Phone Care Team Providers Care Disbursing Officer Name Role Phone Unavailable Primary Care Provider [...] Active Active Problems No known active problems Social History Tobacco Use Types Packs/Day Years [...] patient's age to complete this topic Insurance [employer] Medicare
--- OUTSIDE RECORDS SUMMARY | 2025-05-24 11:38 | XMS_ITS | Patient Health Record ---
Author Organization [facility] Address [address] [place] [address] Care Team Providers Care Shuttle Final Inspector Name Role Phone Robbie Kothari MD Primary Care Provider Ana Rosales Unavailable [phone] Allergies Allergen (clinical drug ingredient) Drug/Non Drug [...] Problem Status W/U Status Risk Notes Problem Bilateral atherosclerosis of arteries of lower limbs (disorder) (49815057927980674 ) Atherosclerosis of [place] artery of both lower extremities, with unspecified presence of clinical manifestation (I70.203) Active confirmed Q7(A), Q8(2B), Q9(1B,2 C) Vital Signs Blood pressure diastolic 58 mm Hg 03/28/2025 Height 6 ft 4 in in 03/28/2025 Blood pressure systolic 114 mm Hg 03/28/2025 Weight 150 lbs 03/28/2025 BMI 18.26 kg/m2 03/28/2025 Encounters Encounter Location Date Provider Diagnosis [address] [address] 06/28/2024 Ana Perica Tinea unguium B35.1 ; Pain in right toe(s) M79.674 and Pain in left toe(s) M79.[address] [address] 09/27/2024 Ana Perica Tinea unguium B35.1 ; Pain in right toe(s) M79.674 and Pain in left toe(s) M79.[address] [address] 12/27/2024 Ana Perica Tinea unguium B35.1 ; Pain in right toe(s) M79.674 and Pain in left toe(s) M79.[address] [address] 03/28/2025 Ana Perica Atherosclerosis of [place] artery of both lower extremities, with unspecified [...] unguium (ICD-10 - B35.1) 03/28/2025 Atherosclerosis of [place] artery of both lower extremities, with unspecified [...] Details Provider Name:Ana garduno, 07/04/2025 09:15:00 AM, [address] [place] [address], [address], Insurance Providers Payer Name Payer Address Payer Phone Subscriber Number Group Number Insured Name Patient Relationship to Insured Coverage Start Date Coverage End Date [employer] Medicare-309 [id number] [address] [place] [address] [id number] Freeman King Self - patient is the insured Medical (General) History Medical History History ICD Code Measles Mumps Chicken pox Stroke Surgical History Surgery Date(Month/Year) hernia colonoscopy Hospitalization History Reason Date(Month/Year) [facility]- Stroke 10/2024
--- OUTSIDE RECORDS SUMMARY | 2025-05-24 11:38 | XMS_ITS | Patient Health Record ---
Author Organization [facility] Address [address] [place] [address] Care Team Providers Care Blocker Hand Name Role Phone Robbie Kothari MD Primary Care Provider UnavailRobbie Koo Unavailable [phone] Reason For Referral No Information Medications Medication [...] Problem Status W/U Status Risk Notes Problem [id number] Encounter for screening for malignant neoplasm of colon (Z12.11) Active confirmed Problem 829800524 Hx of adenomatous colonic polyps (Z86.010) Active confirmed Problem [id number] Pre-procedural examination (Z01.818) Active confirmed Plan Of Treatment Future Test Test Name Order Date COLONOSCOPY 06/15/2018 Insurance Providers Payer Name Payer Address Payer Phone Subscriber Number Group Number Insured Name Patient Relationship to Insured Coverage Start Date Coverage End Date MEDICARE OF [place] [address] [place] [address] [id number] [id number] ROCHA Self - patient is the insured [facility] Insurance C/O [facility] [address] [place] [address] [id number] ROCHA Self - patient is the insured Medical (General) History Medical History History ICD Code Denies DE,DM,CVA,Lung disease,renal dise ase Hyperlipidemia Colonoscopy 2002-small tubul ar adenoma removed; colonoscopy in 2008 was negative--just diverticulosis and internal hemorrhoids Surgical History Surgery Date(Month/Year) Left inguinal hernia Skin cancers with skin grafts
--- OUTSIDE RECORDS SUMMARY | 2025-05-24 11:38 | XMS_ITS | Patient Health Record ---
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 Call Hematology if testing is desired. Comprehensive Met. Panel Reviewed date:10/30/2024 09:55:19 AM Interpretation: Performing Lab:[facility], [address] [place] [phone] Notes/Report: Sodium 131 135-145 mmol/L Potassium 4.2 [...] Magnesium Reviewed date:10/30/2024 09:55:19 AM Interpretation: Performing Lab:[address] [address] Notes/Report: Magnesium 1.5 1.6-2.6 mg/dL Troponin-I High Sensitivity Reviewed date:10/30/2024 09:55:19 AM Interpretation: Performing Lab:[facility], [address] [place] [phone] Notes/Report: Troponin-I High Sensitivity 3.1 <3.5-35.0 ng/L The Duran high sensitivity Troponin-I results should be used in conjunction with other diagnostic information such as ECG, clinical observations and information, and patient symptoms to aid in the diagnosis of [place]. SARS-CoV2/FLU/RSV Reviewed date:10/30/2024 09:55:19 AM Interpretation: Performing Lab:[address] [address] Notes/Report: Influenza A PCR NEGATIVE Negative Influenza [...] by authorized laboratories. Testing performed on the PanoratioXpert utilizing real-time RT-PCR. All SARS CoV2 and positive influenza A/B results are reported to [facility]. CT head for stroke Reviewed date:10/30/2024 09:55:19 AM Interpretation: Performing Lab: Notes/Report: [address] [address] [address] Scan Report Signed Patient: Freeman King MR#: [id number] [birth year] : 1940 Acct:[id number] Age/Sex: 84 / M ADM Date: 10/27/24 Loc: HO.ED Attending Dr: Ordering Physician: Alejandrina Mazariegos Date of Service: 10/27/24 Procedure(s): CT head for STROKE Accession Number(s): [id number] cc: Robbie Kothari MD; Alejandrina Mazariegos Report Number: [id number]: Total DLP = 799.00 mGy-cm EXAMINATION: CT [...] lobe. There is resultant mass effect and caic-ep-quoug midline shift of 3 mm. There is [...] atrium. 3. There is 3 mm of jcce-lb-ujfdj midline shift. No impending herniation at this time. This critical result was discussed with Alejandrina Mazariegos at 12:11 PM, on 10/27/2024 via phone call. Electronically signed by: Zohaib Brown MD 10/27/2024 12:14 PM [facility] [place] By: Zohaib Brown MD Signed By: <Electronically signed by Zohaib Brown MD in OV> 10/27/24 1214 DD/ 1148 TD/TT: 10/27/24 1156 Generation Technician: [place] [address] [address] Scan Report Signed Patient: Jeremiah King MR#: [id number] [birth year] : 1940 Acct:[id number] Age/Sex: 84 / M ADM Date: 10/27/24 Loc: HO.ED Attending Dr: Ordering Physician: Alejandrina Mazariegos Date of Service: 10/27/24 Procedure(s): CT hea d for STROKE Accession Number(s): [id number] cc: Robbie Kothari MD; Alejandrina Mazariegos Report [...] There is resultant m ass effect and dgko-vu-bzaof midline shift of 3 mm. There is [...] atrium. 3. There is 3 mm of jexf-qe-intkm midline shift. No impending herniation at this time. This critical result was discussed with Alejandrina Mazariegos at 12:11 PM, on 10/27/2024 via phone call. Electronically gurpreet d by: Zohaib Brown MD 10/27/2024 12:14 PM [facility] [place]ict[place] By: Zohaib Brown MD Signed By: <Electronically signed by Zohaib Brown MD in OV> 10/27/24 1214 DD/ 1148 TD/TT: 10/27/24 1156 Generation Technician: CT cervical spine wo con Reviewed date:10/30/2024 09:55:19 AM Interpretation: Performing Lab: Notes/Report: [address] [address] [address] Scan Report Signed Patient: Freeman King MR#: [id number] [birth year] : 1940 Acct:[id number] Age/Sex: 84 / M ADM Date: 10/27/24 Loc: HO.ED Attending Dr: Ordering Physician: Alejandrina Mazariegos Date of Service: 10/27/24 Procedure(s): CT cervical spine wo IV con Accession Number(s): [id number] cc: Robbie Kothari MD; Alejandrina Mazariegos Report Number: [id number]: Total DLP = 376.00 mGy-cm EXAMINATION: CT [...] by: Zohaib Brown MD 10/27/2024 02:23 PM [facility] [place]ict[place] By: Zohaib Brown MD Signed By: <Electronically signed by Zohaib Brown MD in OV> 10/27/24 1423 DD/ 1212 TD/TT: 10/27/24 1334 Generation Technician: [place] [address] CT Scan Report Signed Patient: Jeremiah King MR#: [id number] [birth year] : 1940 Acct:[id number] Age/Sex: 84 / M ADM Date: 10/27/24 Loc: .ED Attending Dr: Ordering Physician: Alejandrina Mazariegos Date of Service: 10/27/24 Procedure(s): CT cer vical spine wo IV con Accession Number(s): [id number] cc: Robbie Kothari MD; Alejandrina Mazariegos Report [...] by: Zohaib Brown MD 10/27/2024 02:23 PM [facility] [place]ict[place] By: Zohaib Brown MD Signed By: <Electronically signed by Zohaib Brown MD in OV> 10/27/24 1423 DD/ 1212 TD/TT: 10/27/24 1334 Generation Technician: XR chest 1V Reviewed date:10/30/2024 09:55:19 AM Interpretation: Performing Lab: Notes/Report: [address] [address] XRay Report Signed Patient: Freeman King MR#: [id number] 30 : 1940 Acct:[id number] Age/Sex: 84 / M ADM Date: 10/27/24 Loc: HO.ED Attending Dr: Ordering Physician: Alejandrina Mazariegos Date of Service: 10/27/24 Procedure(s): XR chest 1V Accession Number(s): [id number] cc: Robbie Kothari MD; Alejandrina Mazariegos EXAMINATION: [...] by: Zohaib Brown MD 10/27/2024 01:41 PM [facility] [place] By: Zohaib Brown MD Signed By: <Electronically signed by Zohaib Brown MD in OV> 10/27/24 1341 DD/ 1127 TD/TT: 10/27/24 1328 Generation Technician: [address] [address] XRay Report Signed Patient: Jeremiah King MR#: [id number] [birth year] : 1940 Acct:[id number] Age/Sex: 84 / M ADM Date: 10/27/24 Loc: HO.ED Attending Dr: Ordering Physician: Alejandrina Mazariegos Date of Service: 10/27/24 Procedure(s): XR chest 1V Accession Number(s): [id number] cc: Robbie Kothari MD; Alejandrina Mazariegos EXAMINATION: [...] by: Zohaib Brown MD 10/27/2024 01:41 PM [facility] [place]ict[place] By: Zohaib Brown MD Signed By: <Electronically signed by Zohaib Brown MD in OV> 10/27/24 1341 DD/ 1127 TD/TT: 10/27/24 1328 Generation Technician: XR chest 2V Reviewed date:12/16/2024 03:30:40 PM Interpretation: Performing Lab: Notes/Report: [address] [address] XRay Report Signed Patient: Freeman King MR#: [id number] [birth year] : 1940 Acct:[id number] Age/Sex: 84 / M ADM Date: 12/02/24 Loc: HO.XRAY Attending Dr: Robbie Kothari MD Ordering Physician: Denilson Minor MD Date of Service: 12/02/24 Procedure(s): XR chest 2V Accession Number(s): [id number] cc: Robbie Kothari MD; Denilson Minor MD [...] 12/02/24 1150 DD/ 1042 TD/TT: 12/02/24 1052 Generation Technician: [place] [address] XRay Report Signed Patient: Jeremiah King MR#: [id number] [birth year] : 1940 Acct:[id number] Age/Sex: 84 / M ADM Date: 12/02/24 Loc: JILLIAN Attending Dr: Robbie Kothari MD Ordering Physician: Denilson Minor MD Date of Service: 12/02/24 Procedure(s): XR chest 2V Accession Number(s): [id number] cc: Robbie Kothari MD; Denilson Minor MD [...] 12/02/24 1150 DD/ 1042 TD/TT: 12/02/24 1052 Generation Technician: Complete Blood Count Auto Di ff Reviewed date:12/16/2024 03:30:40 PM Interpretation: Performing Lab:[facility], [address] [place] [phone] Notes/Report: White Blood Count 5.2 4.8-10.8 X10*3/uL [...] Panel Reviewed date:12/16/2024 03:30:40 PM Interpretation: Performing Lab:[address] [address] Notes/Report: Sodium 136 135-145 mmol/L Potassium 3.9 [...] Magnesium Reviewed date:12/16/2024 03:30:40 PM Interpretation: Performing Lab:[facility], [address] [place] [phone] Notes/Report: Magnesium 1.8 1.6-2.6 mg/dL XR chest 2V Reviewed date:12/16/2024 03:30:40 PM Interpretation: Performing Lab: Notes/Report: [address] [address] XRay Report Signed Patient: Freeman King MR#: [id number] [birth year] : 1940 Acct:[id number] Age/Sex: 84 / M ADM Date: 12/16/24 Loc: JILLIAN Attending Dr: Denilson Minor MD Ordering Physician: Denilson Minor MD Date of Service: 12/16/24 Procedure(s): XR chest 2V Accession Number(s): [id number] cc: Robbie Kothari MD; Denilson Minor MD [...] 12/16/24 1138 DD/ 1048 TD/TT: 12/16/24 1110 Generation Technician: [place] [address] XRay Report Signed Patient: Jeremiah King MR#: [id number] [birth year] : 1940 Acct:[id number] Age/Sex: 84 / M ADM Date: 12/16/24 Loc: .XRAY Attending Dr: Denilson Minor MD Ordering Physician: Denilson Minor MD Date of Service: 12/16/24 Procedure(s): XR chest 2V Accession Number(s): [id number] cc: Robbie Kothari MD; Denilson Minor MD [...] 12/16/24 1138 DD/ 1048 TD/TT: 12/16/24 1110 Generation Technician: Complete Blood Count Auto Di ff Reviewed date:12/30/2024 08:37:25 PM Interpretation: Performing Lab:[facility], [address] [place] [phone] Notes/Report: White Blood Count 6.5 4.8-10.8 X10*3/uL [...] NRBC Abs Auto 0.000 0.0-0.012 X10*3/uL Comprehensive Eva. Panel Fa Reviewed date:12/30/2024 08:37:25 PM Interpretation: Performing Lab:[facility], [address] [place] [phone] Notes/Report: Sodium 135 135-145 mmol/L Potassium 4.2 [...] Panel Reviewed date:12/30/2024 08:37:25 PM Interpretation: Performing Lab:[facility], [address] [place] [phone] Notes/Report: Triglycerides 84 <150 mg/dL Desirable Triglyceride: [...] Antigen Reviewed date:12/30/2024 08:37:25 PM Interpretation: Performing Lab:[facility], [address] [place] [phone] Notes/Report: Prostate Specific Antigen 2.95 <0.05-4.0 ng/mL PSA methodology: Duran Alinity i Chemiluminescent Microparticle Immunoassay (CMIA) Complete Blood Count Auto Di ff Reviewed date:12/30/2024 08:37:25 PM Interpretation: Performing Lab:[facility], [address] [place] [phone] Notes/Report: White Blood Count 9.1 4.8-10.8 X10*3/uL [...] te Reviewed date:12/30/2024 08:37:25 PM Interpretation: Performing Lab:[facility], [address] [place] [phone] Notes/Report: Erythrocyte Sedimentation Rate 60 0-15 MM/HR Patients with polycythemia and many hemoglobin abnormalities may have depressed sed rates whereas patients with anemia may have elevated sed rates. Partial Thromboplastin Time Reviewed date:12/30/2024 08:37:25 PM Interpretation: Performing Lab:[facility], [address] [place] [phone] Notes/Report: Partial Thromboplastin Time 33.0 26.0-36.8 SEC For information regarding the monitoring of direct thrombin inhibitors, please refer to Pharmacy. Comprehensive Met. Panel Reviewed date:12/30/2024 08:37:25 PM Interpretation: Performing Lab:[facility], [address] [place] [phone] Notes/Report: Sodium 132 135-145 mmol/L Potassium 4.9 [...] Acid Reviewed date:12/30/2024 08:37:25 PM Interpretation: Performing Lab:[facility], [address] [place] [phone] Notes/Report: Lactic Acid 1.0 0.5-2.0 mmol/L Uric Acid Reviewed date:12/30/2024 08:37:25 PM Interpretation: Performing Lab:[facility], [address] [place] [phone] Notes/Report: Uric Acid 4.1 3.4-7.0 mg/dL Magnesium Reviewed date:12/30/2024 08:37:25 PM Interpretation: Performing Lab:[facility], [address] [place] [phone] Notes/Report: Magnesium 1.7 1.6-2.6 mg/dL Troponin-I High Sensitivity Reviewed date:12/30/2024 08:37:25 PM Interpretation: Performing Lab:[facility], [address] [place] [phone] Notes/Report: Troponin-I High Sensitivity 3.4 <3.5-35.0 ng/L The Duran high sensitivity Troponin-I results should be used in conjunction with other diagnostic information such as ECG, clinical observations and information, and patient symptoms to aid in the diagnosis of [place]. C Reactive Protein Reviewed date:12/30/2024 08:37:25 PM Interpretation: Performing Lab:[facility], [address] [place] [phone] Notes/Report: C Reactive Protein 4.85 < or = 0.50 mg/dL B Type Natriuretic Peptide Reviewed date:12/30/2024 08:37:25 PM Interpretation: Performing Lab:[facility], [address] [place] [phone] Notes/Report: B Type Natriuretic Peptide 82 <100 pg/mL Lipase Reviewed date:12/30/2024 08:37:25 PM Interpretation: Performing Lab:[facility], [address] [place] [phone] Notes/Report: Lipase 43 8-78 U/L UA CC w/rflx Micro + Cult Reviewed date:12/30/2024 08:37:25 PM Interpretation: Performing Lab:[facility], [address] [place] [phone] Notes/Report: Urine, Clean Catch Color Urine Yellow Appearance Urine Clear PH 7.5 5.0-9.0 Glucose Urine UA Negative Negative mg/dL Urine Blood Negative Negative Specific [place] - Urine >= 1.030 1.005-1.025 Urine Protein Negative Neg-Trace mg/dL Urine Ketones Negative Negative mg/dL Nitrite Urine Negative Negative Leukocyte Esterase Urine Negative Negative SARS-CoV2/FLU/RSV Reviewed date:12/30/2024 08:37:25 PM Interpretation: Performing Lab:[address] [address] Notes/Report: Influenza A PCR NEGATIVE Negative Influenza [...] by authorized laboratories. Testing performed on the mobileo GeneXpert utilizing real-time RT-PCR. All SARS CoV2 and positive influenza A/B results are reported to [facility]. Blood Culture (First) Reviewed date:01/14/2025 08:40:47 PM Interpretation: Performing Lab:[facility], [address] [place] [phone] Notes/Report: Blood Culture (First) No growth after 5 days. Blood Culture (Second) Reviewed date:01/14/2025 08:40:47 PM Interpretation: Performing Lab:[address] [address] Notes/Report: Blood Culture (Second) No growth after [address] angio head neck Reviewed date:12/30/2024 08:37:25 PM Interpretation: Performing Lab: Notes/Report: [address] [address] [address] Scan Report Signed Patient: Freeman King MR#: [id number] [birth year] : 1940 Acct:[id number] Age/Sex: 84 / M ADM Date: 12/30/24 Loc: HO.ED Attending Dr: Ordering Physician: Rahul Zamora MD Date of Service: 12/30/24 Procedure(s): CT angio head neck Accession Number(s): [id number] cc: Robbie Kothari MD; Rahul Zamora MD Report Number: [id number]: Total DLP = 1652.00 mGy-cm EXAMINATION: CTA [...] intimal flap. Superior cerebellar arteries are patent. 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 No focal [...] 12/30/24 1225 DD/ 1133 TD/TT: 12/30/24 1155 Generation Technician: [address] [address] [address] Scan Report Signed Patient: Jeremiah King MR#: [id number] [birth year] : 1940 Acct:[id number] Age/Sex: 84 / M ADM Date: 12/30/24 Loc: HO.ED Attending Dr: Ordering Physician: Rahul Zamora MD Date of Service: 12/30/24 Procedure(s): CT ang io head neck Accession Number(s): [id number] cc: Robbie Kothari MD; Rahul Zamora MD [...] intimal flap. Superior cerebellar arteries are patent. 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 No focal [...] 12/30/24 1225 DD/ 1133 TD/TT: 12/30/24 1155 Generation Technician: XR wrist RT 2V Reviewed date:12/30/2024 08:37:25 PM Interpretation: Performing Lab: Notes/Report: [address] [address] XRay Report Signed Patient: Freeman King MR#: [id number] [birth year] : 1940 Acct:[id number] Age/Sex: 84 / M ADM Date: 12/30/24 Loc: HO.ED Attending Dr: Ordering Physician: Rahul Zamora MD Date of Service: 12/30/24 Procedure(s): XR wrist RT 2V Accession Number(s): [id number] cc: Robbie Kothari MD; Rahul Zamora MD [...] 12/30/24 1300 DD/ 1243 TD/TT: 12/30/24 1255 Generation Technician: [address] [address] XRay Report Signed Patient: Jeremiah King MR#: [id number] [birth year] : 1940 Acct:[id number] Age/Sex: 84 / M ADM Date: 12/30/24 Loc: HO.ED Attending Dr: Ordering Physician: Rahul Zamora MD Date of Service: 12/30/24 Procedure(s): XR wri st RT 2V Accession Number(s): [id number] cc: Robbie Kothari MD; Rahul Zamora MD [...] 12/30/24 1300 DD/ 1243 TD/TT: 12/30/24 1255 Generation Technician: XR chest 1V Reviewed date:12/30/2024 08:37:25 PM Interpretation: Performing Lab: Notes/Report: [address] [address] XRay Report Signed Patient: Freeman King MR#: [id number] 30 : 1940 Acct:[id number] Age/Sex: 84 / M ADM Date: 12/30/24 Loc: .ED Attending Dr: Ordering Physician: Rahul Zamora MD Date of Service: 12/30/24 Procedure(s): XR chest 1V Accession Number(s): [id number] cc: Robbie Kothari MD; Rahul Zamora MD [...] 12/30/24 1210 DD/ 1031 TD/TT: 12/30/24 1149 Generation Technician: [place] [address] XRay Report Signed Patient: Jeremiah King MR#: [id number] [birth year] : 1940 Acct:[id number] Age/Sex: 84 / M ADM Date: 12/30/24 Loc: .ED Attending Dr: Ordering Physician: Rahul Zamora MD Date of Service: 12/30/24 Procedure(s): XR chest 1V Accession Number(s): [id number] cc: Robbie Kothari MD; Rahul Zamora MD [...] 12/30/24 1210 DD/ 1031 TD/TT: 12/30/24 1149 Generation Technician: XR hand RT min 3V Reviewed date:12/30/2024 08:37:25 PM Interpretation: Performing Lab: Notes/Report: [address] [address] XRay Report Signed Patient: Freeman King MR#: [id number] [birth year] : 1940 Acct:[id number] Age/Sex: 84 / M ADM Date: 12/30/24 Loc: HO.ED Attending Dr: Ordering Physician: Rahul Zamora MD Date of Service: 12/30/24 Procedure(s): XR hand RT min 3V Accession Number(s): [id number] cc: Robbie Kothari MD; Rahul Zamora MD [...] 12/30/24 1301 DD/ 1243 TD/TT: 12/30/24 1255 Generation Technician: [address] [address] XRay Report Signed Patient: Jeremiah King MR#: [id number] [birth year] : 1940 Acct:[id number] Age/Sex: 84 / M ADM Date: 12/30/24 Loc: HO.ED Attending Dr: Ordering Physician: Rahul Zamora MD Date of Service: 12/30/24 Procedure(s): XR camacho d RT min 3V Accession Number(s): [id number] cc: Robbie Kothari MD; Rahul Zamora MD [...] 12/30/24 1301 DD/ 1243 TD/TT: 12/30/24 1255 Generation Technician: Renae Coates Hematolo gy Reviewed date:01/01/2025 10:45:53 AM Interpretation: Performing Lab:[facility], [address] [place] [phone] Notes/Report: Hold Lav - Possible Hematology SEE NOTE Specimen will be held untested for 8 hours. Call Hematology if testing is desired. Basic Metabolic Panel Reviewed date:01/01/2025 10:45:53 AM Interpretation: Performing Lab:[facility], [address] [place] [phone] Notes/Report: Sodium 135 135-145 mmol/L Potassium 4.2 [...] ff Reviewed date:01/14/2025 08:40:47 PM Interpretation: Performing Lab:[facility], [address] [place] [phone] Notes/Report: White Blood Count 7.5 4.8-10.8 X10*3/uL [...] Coag Reviewed date:01/14/2025 08:40:47 PM Interpretation: Performing Lab:[facility], [address] [place] [phone] Notes/Report: Hold Lt Blue - Possible Coag SEE NOTE Specimen will be held untested for 4 hours. Call Hematology if testing is desired. Liver Panel Reviewed date:01/14/2025 08:40:47 PM Interpretation: Performing Lab:[facility], [address] [place] [phone] Notes/Report: Bilirubin Total 1.0 0.0-1.0 mg/dL Bilirubin Direct 0.3 0.0-0.5 mg/dL Aspartate Amino Transferase 28 5-37 U/L Slight Hemolysis.Interpret result with caution. Alanine Aminotransferase 12 0-40 U/L Total Protein 7.4 6.5-8.0 g/dL Albumin Level 3.6 3.5-5.0 g/dL Alkaline Phosphatase 70 39-117 U/L Basic Metabolic Panel Reviewed date:01/14/2025 08:40:47 PM Interpretation: Performing Lab:[facility], [address] [place] [address] Notes/Report: Sodium 130 135-145 mmol/L Potassium 4.4 [...] Acid Reviewed date:01/14/2025 08:40:47 PM Interpretation: Performing Lab:[facility], [address] [place] [phone] Notes/Report: Lactic Acid 0.8 0.5-2.0 mmol/L Magnesium Reviewed date:01/14/2025 08:40:47 PM Interpretation: Performing Lab:[address] [address] Notes/Report: Magnesium 1.8 1.6-2.6 mg/dL Troponin-I High Sensitivity Reviewed date:01/14/2025 08:40:47 PM Interpretation: Performing Lab:[address] [address] Notes/Report: Troponin-I High Sensitivity 3.3 <3.5-35.0 ng/L The Duran high sensitivity Troponin-I results should be used in conjunction with other diagnostic information such as ECG, clinical observations and information, and patient symptoms to aid in the diagnosis of [place]. C Reactive Protein Reviewed date:01/14/2025 08:40:47 PM Interpretation: Performing Lab:[address] [address] Notes/Report: C Reactive Protein 13.61 < or = 0.50 mg/dL B Type Natriuretic Peptide Reviewed date:01/14/2025 08:40:47 PM Interpretation: Performing Lab:[facility], [address] [place] [address] Notes/Report: B Type Natriuretic Peptide 53 <100 pg/mL Procalcitonin Reviewed date:01/14/2025 08:40:47 PM Interpretation: Performing Lab:[facility], [address] [place] [phone] Notes/Report: Procalcitonin 0.04 Procalcitonin (PCT) Reference Range: [...] results from different laboratories and methodologies. References: [employer]/Society of Critical Care [...] 510(k) substantial equivalence determination decision summary for [facility]. http://www.accessda ta.fda.fov/cdrh_doc s/reviews/U748287.p df. Published September 2004. Accessed February 2017. Gram stain Reviewed date:01/17/2025 05:36:47 AM Interpretation: Performing Lab:[facility], [address] [place] [phone] Notes/Report: Gram stain Gram stain results: Gram stain 4+ polys Gram stain 1+ epithelial cells Gram stain 4+ red blood cells Gram stain 1+ Gram-positive cocci UA CC w/rflx Micro + Cult Reviewed date:01/14/2025 08:40:47 PM Interpretation: Performing Lab:[address] [address] Notes/Report: Urine, Catheterized Color Urine Yellow Appearance Urine Clear PH 6.0 5.0-9.0 Glucose Urine UA Negative Negative mg/dL Urine Blood Negative Negative Specific [place] - Urine 1.020 1.005-1.025 Urine Protein Negative Neg-Trace mg/dL Urine Ketones Negative Negative mg/dL Nitrite Urine Negative Negative Leukocyte Esterase Urine Negative Negative SARS-CoV2/FLU/RSV Reviewed date:01/14/2025 08:40:47 PM Interpretation: Performing Lab:[address] [address] Notes/Report: Influenza A PCR NEGATIVE Negative Influenza [...] by authorized laboratories. Testing performed on the mobileo GeneXpert utilizing real-time RT-PCR. All SARS CoV2 and positive influenza A/B results are reported to [facility]. Blood Culture (First) Reviewed date:02/12/2025 08:15:10 PM Interpretation: Performing Lab:[facility], [address] [place] [phone] Notes/Report: Blood Culture (First) No growth after 5 days. Blood Culture (Second) Reviewed date:02/12/2025 08:15:10 PM Interpretation: Performing Lab:[address] [address] Notes/Report: Blood Culture (Second) No growth after 5 days. Sputum Culture Reviewed date:01/17/2025 05:36:47 AM Interpretation: Performing Lab:[facility], [address] [place] [phone] Notes/Report: Sputum Culture BAP Sputum Culture 2+ Mixed respiratory ramon. CT chest wo con Reviewed date:01/14/2025 08:40:47 PM Interpretation: Performing Lab: Notes/Report: [address] [address] [address] Scan Report Signed Patient: Freeman King MR#: [id number] 30 : 1940 Acct:[id number] Age/Sex: 84 / M ADM Date: 01/13/25 Loc: .S3 358-[address]: Tommy Rodriguez MD Ordering Physician: Linette Brown Date of Service: 01/13/25 Procedure(s): CT chest wo IV con Accession Number(s): [id number] cc: Linette Brown; Robbie Kothari MD Report Number: [id number]: Total DLP = 336.00 mGy-cm CLINICAL HISTORY: [...] OV> 01/13/25 174 DD/ 45 TD/TT: 01/13/251745 Generation Technician: [address] [address] [address] Scan Report Signed Patient: Jeremiah King MR#: [id number] [birth year] : 1940 Acct:[id number] Age/Sex: 84 / M ADM Date: 01/13/25 Loc: HO.S3 358-[address]: Tommy Rodriguez MD Ordering Physician: Linette Brown Date of Service: 01/13/25 Procedure(s): CT [address] wo IV con Accession Number(s): [id number] cc: Linette Brown; Robbie Kothari MD Report [...] OV> 01/13/251746 DD/ 1746 TD/TT: 01/13/25 174 Generation Technician: CT head/brain wo con Reviewed date:01/14/2025 08:40:47 PM Interpretation: Performing Lab: Notes/Report: [address] [address] [address] Scan Report Signed Patient: Freeman King MR#: [id number] 30 : 1940 Acct:[id number] Age/Sex: 84 / M ADM Date: 01/13/25 Loc: HO.ED Attending Dr: Ordering Physician: Taras Spencer MD Date of Service: 01/13/25 Procedure(s): CT head/brain wo IV con Accession Number(s): [id number] cc: Robbie Kothari MD; Taras Spencer MD Report Number: [id number]: Total DLP = 726.00 mGy-cm EXAMINATION: CT [...] 01/13/25 1235 DD/ 1215 TD/TT: 01/13/25 1226 Generation Technician: [address] [address] [address] Scan Report Signed Patient: Jeremiah King MR#: [id number] 30 : 1940 Acct:[id number] Age/Sex: 84 / M ADM Date: 01/13/25 Loc: HO.ED Attending Dr: Ordering Physician: Taras Spencer MD Date of Service: 01/13/25 Procedure(s): CT head/brain wo IV con Accession Number(s): [id number] cc: Robbie Kothari MD; Taras Spencer MD [...] 01/13/25 1235 DD/ 1215 TD/TT: 01/13/25 1226 Generation Technician: XR chest 1V Reviewed date:01/14/2025 08:40:47 PM Interpretation: Performing Lab: Notes/Report: [address] [address] XRay Report Signed Patient: Freeman King MR#: [id number] [birth year] : 1940 Acct:[id number] Age/Sex: 84 / M ADM Date: 01/13/25 Loc: HO.ED Attending Dr: Ordering Physician: Taras Spencer MD Date of Service: 01/13/25 Procedure(s): XR chest 1V Accession Number(s): [id number] cc: Robbie Kothari MD; Taras Spencer MD [...] 01/13/25 1228 DD/ 1222 TD/TT: 01/13/25 1222 Generation Technician: [address] [address] XRay Report Signed Patient: Jeremiah King MR#: [id number] [birth year] : 1940 Acct:[id number] Age/Sex: 84 / M ADM Date: 01/13/25 Loc: HO.ED Attending Dr: Ordering Physician: Taras Spencer MD Date of Service: 01/13/25 Procedure(s): XR chest 1V Accession Number(s): [id number] cc: Robbie Kothari MD; Taras Spencer MD [...] 01/13/25 1228 DD/ 1222 TD/TT: 01/13/25 1222 Generation Technician: Hold Lav - Possible Hematolo gy Reviewed date:01/14/2025 08:40:46 PM Interpretation: Performing Lab:[facility], [address] [place] [address] Notes/Report: Hold Lav - Possible Hematology SEE NOTE Specimen will be held untested for 8 hours. Call Hematology if testing is desired. Basic Metabolic Panel Reviewed date:01/14/2025 08:40:47 PM Interpretation: Performing Lab:[facility], [address] [place] [address] Notes/Report: Sodium 130 135-145 mmol/L Potassium 4.0 [...] Urine Reviewed date:01/14/2025 08:40:47 PM Interpretation: Performing Lab:[address] [address] Notes/Report: Osmolality Urine 191 832-1806 mosm/kg Sodium Urine Random Reviewed date:01/14/2025 08:40:47 PM Interpretation: Performing Lab:[address] [address] Notes/Report: Sodium Urine Random 93.0 Vancomycin Random Reviewed date:01/14/2025 08:40:47 PM Interpretation: Performing Lab:[address] [address] Notes/Report: Vancomycin Random 9.3 15-20 mcg/mL Complete Blood Count Auto Di ff Reviewed date:01/15/2025 06:45:37 AM Interpretation: Performing Lab:[address] [address] Notes/Report: White Blood Count 5.0 4.8-10.8 X10*3/uL [...] Hematocrit Reviewed date:01/17/2025 05:36:47 AM Interpretation: Performing Lab:[address] [address] Notes/Report: Hemoglobin 11.9 14.0-18.0 g/dl Hematocrit 33.2 42.0-52.0 % Basic Metabolic Panel Reviewed date:01/15/2025 06:45:37 AM Interpretation: Performing Lab:[address] [address] Notes/Report: Sodium 135 135-145 mmol/L Potassium 3.8 [...] gy Reviewed date:01/17/2025 05:36:47 AM Interpretation: Performing Lab:[address] [address] Notes/Report: Hold Lav - Possible Hematology SEE NOTE Specimen will be held untested for 8 hours. Call Hematology if testing is desired. Creatinine Reviewed date:01/17/2025 05:36:47 AM Interpretation: Performing Lab:[facility], [address] [place] [address] Notes/Report: Creatinine 0.77 0.5-1.4 mg/dL Creatinine Clr [...] ff Reviewed date:02/26/2025 07:54:27 AM Interpretation: Performing Lab:[address] [address] Notes/Report: White Blood Count 6.6 4.8-10.8 X10*3/uL [...] NRBC Abs Auto 0.000 0.0-0.012 X10*3/uL Comprehensive Eva. Panel Fa st Reviewed date:02/26/2025 07:54:27 AM Interpretation: Performing Lab:[facility], [address] [place] [address] Notes/Report: Sodium 135 135-145 mmol/L Potassium 4.3 [...] Panel Reviewed date:02/26/2025 07:54:27 AM Interpretation: Performing Lab:[facility], [address] [place] [address] Notes/Report: Triglycerides 58 <150 mg/dL Desirable Triglyceride: [...] date:02/26/2025 07:54:27 AM Interpretation: Performing Lab: Notes/Report: [address] [address] XRay Report Signed Patient: Freeman King MR#: [id number] [birth year] : 1940 Acct:[id number] Age/Sex: 85 / M ADM Date: 02/23/25 Loc: HO.KIRTIAY Attending Dr: Denilson Minor MD Ordering Physician: Denilson Minor MD Date of Service: 02/23/25 Procedure(s): XR chest 2V Accession Number(s): [id number] cc: Robbie Kothari MD; Denilson Minor MD [...] 08:53 AM EDT RP Dictated By: Lázaro Elais MD Signed By: <Electronically signed by Lázaro Monique MD in OV> 02/23/25 0853 DD/ 6 TD/TT: 02/23/25835 Generation Technician: [place] [address] XRay Report Signed Patient: Jeremiah King MR#: [id number] [birth year] : 1940 Acct:[id number] Age/Sex: 85 / M ADM Date: 02/23/25 Loc: HO.XRAY Attending Dr: Denilson Minor MD Ordering Physician: Denilson Minor MD Date of Service: 02/23/25 Procedure(s): XR chest 2V Accession Number(s): [id number] cc: Robbie Kothari MD; Denilson Minor MD [...] 02/23/25 0853 DD/ 6 TD/TT: 02/23/25 0836 Generation Technician: XR chest 2V Reviewed date:04/15/2025 07:11:05 PM Interpretation: Performing Lab: Notes/Report: [address] [address] XRay Report Signed Patient: Freeman King MR#: [id number] [birth year] : 1940 Acct:[id number] Age/Sex: 85 / M ADM Date: 04/12/25 Loc: JILLIAN Attending Dr: Denilson Minor MD Ordering Physician: Denilson Minor MD Date of Service: 04/12/25 Procedure(s): XR chest 2V Accession Number(s): [id number] cc: Robbie Kothari MD; Denilson Minor MD [...] 04/12/25 1430 DD/ 1411 TD/TT: 04/12/25 1426 Generation Technician: [address] [address] XRay Report Signed Patient: Jeremiah King MR#: [id number] [birth year] : 1940 Acct:[id number] Age/Sex: 85 / M ADM Date: 04/12/25 Loc: JILLIAN Attending Dr: Denilson Minor MD Ordering Physician: Denilson Minor MD Date of Service: 04/12/25 Procedure(s): XR chest 2V Accession Number(s): [id number] cc: Robbie Kothari MD; Denilson Minor MD [...] 04/12/25 1430 DD/ 1411 TD/TT: 04/12/25 1426 Generation Technician: Complete Blood Count Auto Di ff Reviewed date:04/24/2025 03:36:17 PM Interpretation: Performing Lab:[facility], [address] [place] [address] Notes/Report: White Blood Count 6.0 4.8-10.8 X10*3/uL [...] te Reviewed date:04/24/2025 03:36:17 PM Interpretation: Performing Lab:[address] [address] Notes/Report: Erythrocyte Sedimentation Rate 21 0-15 MM/HR Patients with polycythemia and many hemoglobin abnormalities may have depressed sed rates whereas patients with anemia may have elevated sed rates. Liver Panel Reviewed date:04/24/2025 03:36:17 PM Interpretation: Performing Lab:[address] [address] Notes/Report: Bilirubin Total 0.8 0.0-1.0 mg/dL Bilirubin Direct 0.3 0.0-0.5 mg/dL Aspartate Amino Transferase 25 5-37 U/L Alanine Aminotransferase 13 0-40 U/L Total Protein 7.6 6.5-8.0 g/dL Albumin Level 4.2 3.5-5.0 g/dL Alkaline Phosphatase 84 39-117 U/L Basic Metabolic Panel Reviewed date:04/24/2025 03:36:17 PM Interpretation: Performing Lab:[address] [address] Notes/Report: Sodium 136 135-145 mmol/L Potassium 4.2 [...] date:04/24/2025 03:36:17 PM Interpretation: Performing Lab: Notes/Report: [address] [address] Ultrasound Report Signed Patient: Freeman King MR#: [id number] [birth year] : 1940 Acct:[id number] Age/Sex: 85 / M ADM Date: 04/24/25 Loc: HO.US Attending Dr: Irene MADRID Ordering Physician: Irene Fam Date of Service: 04/24/25 Procedure(s): US retroperitoneal comp Accession Number(s): [id number] cc: Robbie Kothari MD; Irene Fam EXAMINATION: [...] 04/24/25 1049 DD/ 1000 TD/TT: 04/24/25 1030 Generation Technician: [place] [address] Ultrasound Report Signed Patient: Jeremiah King MR#: [id number] [birth year] : 1940 Acct:[id number] Age/Sex: 85 / M ADM Date: 04/24/25 Loc: .US Attending Dr: Irene MADRID Ordering Physician: Irene Fam Date of Service: 04/24/25 Procedure(s): US retroperitoneal comp Accession Number(s): [id number] cc: Robbie Kothari MD; Irene Fam EXAMINATION: [...] 46.9 mL. Electronically gurpreet d by: Robbie Rosales MD 04/24/2025 10:49 AM EDT RP Dictated By: Robbie Rosales MD Signed By: <Electronically signed by Robbie Rosales MD in OV> 04/24/25 1049 DD/ 1000 TD/TT: 04/24/25 1030 Generation Technician: Reason For Referral Reason Urgent Referral Requ est Evaluate and Treat ? Catheter Can not tolerate tamsulosin Diagnosis 1 Benign prostatic hyp erplasia with lower urinary tract symptoms (N40.1) Diagnosis 2 Nocturia (R35.1) Referral Organization Robbie Kothari III, MD Referring Provider First Name Robbie Referring Provider Last Name Saniya Referring Provider Speciality Internal M edicine Referred Provider [facility] er, Urology Referred Provider Specialty Urology [...] Referring Provider Speciality Internal edicine Referred Organization [facility] cherelle Referred Provider [facility], Core Physical Therapy Referred Address [address] [place] [phone], Referred Provider Specialty Physical [employer] [...] Referring Provider Speciality Internal edicine Referred Provider [facility], Speech and Hearing Referred Provider Specialty Unknown [...] needed Orally Three times a day Active rifAMPin 300 MG TAKE 2 CAPS BY MOUTH ONCE DAILY Oral Active Tamsulosin HCl 0.4 MG Oral Active Finasteride 5 MG Oral Act aditi Albuterol Sulfate (2.5 MG/3ML) 0.083% Inhalation Active Azithromycin 500 MG Oral Active Atorvastatin Calcium 10 MG 1 tablet Oral ly Once a day Active Immunizations Vaccine Route Administration Date Status [...] Problem Status W/U Status Risk Notes Problem 8693401 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 Problem Hyperlipidemia (32965710) Hyperlipidemia (E78.5) Active confirmed Distal cholesterol is stable but his triglycerides are elevated. He will continue on his current diet until he has fully recovered from the stroke. He will continue on his medications. Problem 31609072 Hyponatremia (E87.1) Active confirmed After admission to [facility] he required hypertonic saline and then 1 g of sodium chloride tablets 3 times a day to restore his potassium to normal. He was discharged without this. Blood work with a sodium level will be checked frequently. Problem 797332655 Underweight (R63.6) Active confirmed His appetite is better and he is feeling stronger. His body mass index is now 19. We continue our discussions on diet and nutrition. Problem 76219107 Mycobacterial infection, unspecified (A31.9) Active confirmed He continues on daily A azithromycin. A recent chest x-ray shows worsening airspace disease in right lung. He is due to see pulmonary within the next week. He has a cough which is nonproductive and is afebrile. n. Problem 98581930 Orthostatic hypotension (I95.1) Active confirmed He developed th is at home and was brought to the [facility] emergency of December 30, 2024 and admitted overnight for hydration. We have discussed aggressive hydration and adequate nutrition. Problem 827268118 Rosacea (L71.9) Active confirmed He was given metronidazole gel. He was instructed in its use. Problem 747287094 Pulmonary nodule (R91.1) Active confirmed This is being observed. No change in his symptoms have been noted. Problem 515622883 Adenoma of ascending colon (D12.2) Active confirmed He will call he r gastroenterologis t to see if additional colonoscopies will be recommended. Problem 751407055 Hypertrophy of prostate without urinary obstruction and other lower urinary tract symptoms (LUTS) (N40.0) Active confirmed He has been usi ng lifestyle modification and now experiences nocturia only once a night. Problem 46546701 Abdominal hernia without obstruction and without gangrene, recurrence not specified, unspecified hernia type (K46.9) Active confirmed The hernia is n ow asymptomatic and will be observed without treatment. Problem Pneumonia (359988309) Pneumonia (J18.9) Active confirmed He is taking th e azithromycin 3 times a week. The other antibiotic has been discontinued. The pneumonia has resolved. He is breathing comfortably. Problem Seizure (74281368) Seizures (R56.9) Active confirmed Just before discharge from an [facility] he was begun on Keppra for periods of unresponsiveness. A repeat CT scan November 18, 2024 showed improvement in the hemorrhage and edema. The Her will be discontinued until the electroencephalog jackie is done. We have requested a repeat visit from [facility] neurology. Problem Stroke (801287566) Stroke (I63.9) Active confirmed Problem Benign prostatic hypertrophy without outflow obstruction (503791326) Benign prostatic hyperplasia without lower urinary tract symptoms (N40.0) Active confirmed Problem 7790901592045 Benign prostatic hyperplasia with lower urinary tract symptoms (N40.1) Active confirmed He says he is rising from sleep up to 4 times a night. His tamsulosin waas stopped because of a low blood pressure. It curtis now resumed. He is happy with this level of control. We discussed further lifestyle modifications he can maake to reduce nocturia. Problem Disorder of musculoskeletal system (983260) Leg weakness, bilateral (R29.898) Active confirmed Problem 05237262 Sleep apnea in adult (G47.30) Active confirmed He is using t he new CPAP machine without difficulty and is pleased with the results. Problem 76705242 Generalized weakness (R53.1) Active confirmed He was [...] tract infection or acute metabolic problem. 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 Problem 15198776 Atrial arrhythmia (I49.8) Active confirmed He was in a normal sinus rhythm today with no abnormalities. He has had no episodes of tachycardia, syncope or palpitations. 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 Problem 923607521493653 Acute gout of left hand, unspecified cause (M10.9) Active confirmed This was a clinical diagnosis and he is being treated with prednisone. It occurred within the last 48 hours. The left wrist is painful red and swollen. Vital Signs Heart Rate 62 /min 05/02/2025 Temperature 97.5 degrees Fahrenheit 05/02/2025 Respiratory Rate 15 /min 05/02/2025 Oximetry 93 % 05/02/2025 Blood pressure diastolic 68 mm Hg 05/02/2025 Height 76 in 05/02/2025 Blood pressure systolic 119 mm Hg 05/02/2025 Weight 170 lbs 05/02/2025 BMI 20.69 kg/m2 05/02/2025 Encounters Encounter Location Date Provider Diagnosis Robbie Kothari III, MD [address] [place] [address] [place] [address] 06/02/2024 Robbie Kothari Encounter for immunization Z23 Robbie Kothari III, MD [address] [place] [address] [place] [address] 07/25/2024 Robbie Kothari Hyperlipidemia E78.5 ; Mycobacterial infection, unspecified A31.9 ; Benign prostatic hyperplasia with lower urinary tract symptoms N40.1 ; Former smoker Z87.891 ; 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 and Sleep apnea in adult G47.30 Robbie Kothari III, MD [address] [place] [address] [place] [address] 11/21/2024 Robbie Kothari Hyperlipidemia E78.5 ; Nontraumatic [...] in adult G47.30 Robbie Kothari III, MD [address] [place] [address] [place] [address] 12/02/2024 Robbie Kothari Hyperlipidemia E78.5 ; 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 ; Pneumonia J18.9 ; Former smoker Z87.891 ; Mycobacterial infection, unspecified A31.9 ; Sleep apnea in adult G47.30 and Benign prostatic hyperplasia with lower urinary tract symptoms N40.1 Robbie Kothari III, MD [address] [place] [address] [place] [address] 12/19/2024 Robbie Kothari Hyperlipidemia E78.5 ; 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 ; Pneumonia J18.9 ; Underweight R63.6 ; Seizures R56.9 ; Former smoker Z87.891 ; Mycobacterial infection, unspecified A31.9 ; Sleep apnea in adult G47.30 and Benign prostatic hyperplasia with lower urinary tract symptoms N40.1 Robbie Kothari III, MD [address] [place] [address] [place] [address] 01/04/2025 Robbie Kothari Orthostatic hypotens ion I95.1 ; Former smoker Z87.891 ; Atrial arrhythmia I49.8 ; Hyperlipidemia E78.5 ; Rosacea L71.9 ; Benign prostatic hyperplasia with lower urinary tract symptoms N40.1 ; 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 ; Underweight R63.6 and Pneumonia J18.9 Robbie Kothari III, MD [address] [place] [address] [place] [address] 01/13/2025 Robbie Kothari Generalized weakness R53.1 ; Hyperlipidemia E78.5 ; Former smoker Z87.891 ; Hypertrophy of prostate without urinary obstruction and other lower urinary tract symptoms (LUTS) N40.0 ; Mycobacterial infection, unspecified A31.9 ; Underweight R63.6 ; 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 ; Orthostatic hypotension I95.1 and Pneumonia J18.9 Robbie Kothari III, MD [address] [place] [address] [place] [address] 01/27/2025 Robbie Kothari Former smoker Z87.89 1 [...] Generalized weakness R53.1 Robbie Kothari III, MD [address] [place] [address] [place] [address] 02/24/2025 Robbie Kothari Mycobacterial infect ion, unspecified A31.9 ; 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 ; Benign prostatic hyperplasia with lower urinary tract symptoms N40.1 ; Seizures R56.9 ; Hyponatremia E87.1 ; Former smoker Z87.891 ; Generalized weakness R53.1 and Acute gout of left hand, unspecified cause M10.9 Robbie Kothari III, MD [address] [place] [address] [place] [address] 03/20/2025 Robbie Kothari Former smoker Z87.89 1 ; Hyperlipidemia 272.4 ; Benign prostatic hyperplasia without lower urinary tract symptoms N40.0 ; Mycobacterial infection, unspecified A31.9 ; Underweight R63.6 ; Anterior subcapsular polar age-related cataract of both eyes H25.033 ; Seizures R56.9 and 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 Robbie Kothari III, MD [address] [place] [address] [place] [address] 05/02/2025 Robbie Kothari Former smoker Z87.89 1 [...] hyperplasia without lower urinary tract symptoms N40.0 Robbie Kothari III, MD [address] [place] [address] [place] [address] 10/28/2024 Robbie Kothari III, MD [address] [place] [address] [place] [address] 11/21/2024 Robbie Kothari III, MD [address] [place] [address] [place] [address] 11/21/2024 Robbie Kothari III, MD [address] [place] [address] [place] [address] 11/22/2024 Robbie Kothari III, MD [address] [place] [address] [place] [address] 11/22/2024 Robbie Kothari III, MD [address] [place] [address] [place] [address] 11/25/2024 Robbie Kothari III, MD [address] [place] [address] [place] [address] 11/25/2024 Robbie Kothari III, MD [address] [place] [address] [place] [address] 12/05/2024 Robbie Kothari III, MD [address] [place] [address] [place] [address] 12/14/2024 Robbie Kothari III, MD [address] [place] [address] [place] [address] 12/20/2024 Robbie Kothari III, MD [address] [place] [address] [place] [address] 01/02/2025 Robbie Kothari III, MD [address] [place] [address] [place] [address] 01/03/2025 Robbie Kothari III, MD [address] [place] [address] [place] [address] 01/06/2025 Robbie Kothari III, MD [address] [place] [address] [place] [address] 01/13/2025 Robbie Kothari III, MD [address] [place] [address] [place] [address] 01/17/2025 Robbie Kothari III, MD [address] [place] [address] [place] [address] 01/17/2025 Robbie Kothari III, MD [address] [place] [address] [place] [address] 02/07/2025 Robbie Kothari III, MD [address] [place] [address] [place] [address] 02/10/2025 Robbie Kothari III, MD [address] [place] [address] [place] [address] 02/24/2025 Robbie Kothari III, MD [address] [place] [address] [place] [address] 02/27/2025 Robbie Kothari III, MD [address] [place] [address] [place] [address] 03/03/2025 Robbie Kothari III, MD [address] [place] [address] [place] [address] 03/09/2025 Robbie Kothari III, MD [address] [place] [address] [place] [address] 03/10/2025 Robbie Kothari Assessments Encounter Date Diagnosis [...] at home and was brought to the [facility] emergency of December 30, 2024 and [...] in times of stress and illness. 05/02/2025 Former smoker (ICD-10 - Z87.891) He [...] be seen once a week at least. 07/25/2024 Benign prostatic hyperplasia with lower urinary tract symptoms (ICD-10 - N40.1) He rises from sleep once a night to urinate. He is happy with this level of control. We discussed further lifestyle modifications he can maake to reduce nocturia. 11/21/2024 Seizures (ICD-10 - R56.9) Just before discharge from an [facility] rehabilitation he was begun on Keppra for periods of unresponsiveness. A repeat CT scan November 18, 2024 showed improvement in the hemorrhage and edema. The Her will be discontinued until the electroencephalogram is done. We have requested a repeat visit from [facility] neurology. 12/02/2024 Pneumonia (ICD-10 - J18.9) [...] lower urinary tract symptoms (ICD-10 - N40.0) 05/02/2025 Abnormal weight loss (ICD-10 - R63.4) He has gained 6 pounds and his BMI is now normal at 20. This problem has resolved. 07/25/2024 Former smoker (ICD-10 - Z87.891) He has a strategy to prevent relapse in times of stress and illness. 11/21/2024 Hyponatremia (ICD-10 - E87.1) After admission to [facility] he required hypertonic saline and then [...] We have requested a repeat visit from [facility] neurology. 03/20/2025 Mycobacterial infection, unspecified (ICD-10 - A31.9) He continues on daily A azithromycin. A recent chest x-ray shows worsening airspace disease in right lung. He is due to see pulmonary within the next week. He has a cough which is nonproductive and is afebrile. n. 05/02/2025 Abdominal hernia without obstruction and without gangrene, recurrence not specified, unspecified hernia type (ICD-10 - K46.9) The hernia is now asymptomatic and will be observed without treatment. 07/25/2024 Macrocytosis (ICD-10 - D75.89) His main [...] - R56.9) Just before discharge from an [facility] rehabilitation he was begun on Keppra for periods of unresponsiveness. A repeat CT scan November 18, 2024 showed improvement in the hemorrhage and edema. The Her will be discontinued until the electroencephalogram is done. We have requested a repeat visit from [facility] neurology. 01/04/2025 Rosacea (ICD-10 - L71.9) [...] Hyponatremia (ICD-10 - E87.1) After admission to [facility] he required hypertonic saline and then [...] continue our discussions on diet and nutrition. 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 07/25/2024 Sleep apnea in adult (ICD-10 - [...] We have requested a repeat visit from [facility] neurology. 02/24/2025 Former smoker (ICD-10 - [...] Hyponatremia (ICD-10 - E87.1) After admission to [facility] he required hypertonic saline and then [...] - R56.9) Just before discharge from an [facility] rehabilitation he was begun on Keppra for periods of unresponsiveness. A repeat CT scan November 18, 2024 showed improvement in the hemorrhage and edema. The Her will be discontinued until the electroencephalogram is done. We have requested a repeat visit from [facility] neurology. 05/02/2025 Sleep apnea in adult (ICD-10 - [...] at home and was brought to the [facility] emergency of December 30, 2024 and [...] seen once a week at least. 05/02/2025 Leg weakness, bilateral (ICD-10 - R29.898) 11/21/2024 Atrial arrhythmia (ICD-10 - I49.8) He [...] now experiences nocturia only once a night. 05/02/2025 Benign prostatic hyperplasia without lower urinary tract symptoms (ICD-10 - N40.0) 11/21/2024 Benign prostatic hyperplasia with lower urinary [...] RANDOM (COMPREHENSIVE METABOLIC ) 01/06/2022 LIPID PANEL 09/18/2020 LIPID PANEL 12/05/2020 LIPID PANEL 12/10/2022 LIPID PANEL 06/06/2021 LIPID PANEL 09/10/2022 LIPID PANEL 01/06/2022 LIPID PANEL 05/01/2020 LIPID PANEL 03/18/2023 PSA, TOTAL 03/18/2023 PSA, TOTAL 04/22/2024 PSA, TOTAL 09/18/2020 PSA, TOTAL 03/06/2021 PSA, TOTAL 09/10/2022 PSA, TOTAL 01/06/2022 PSA, TOTAL 05/01/2020 PSA, TOTAL 07/25/2024 CBC w DIFF 01/06/2022 CBC w DIFF [...] 07/22/2023 Next Appt Details Provider Name:Robbie Kothari, 07/17/2025 10:00:00 AM, [address] [place] [address] [address], [place], [address], Provider Name:Robbie Ktohari, 01/29/2026 09:30:00 AM, [facility] [address], [place], [address], Insurance Providers Payer Name Payer Address Payer Phone Subscriber Number Group Number Insured Name Patient Relationship to Insured Coverage Start Date Coverage End Date [employer]age [address] [address] [place] [address] [id number] Freeman King Self - patient is the insured MEDICARE NGS [address] [place] [phone] [id number] Fernando Freeman Self - patient is the insured Medical (General) History Medical History History ICD Code colonic poyps 2002 benign prostatic hyperplasia (BPH) hyperlipidemia left herniorraphy age 30 neck and right shoulder pain 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
== END 2025-05-24 09:45 | disposition home or self-care (01) ==
LOC: HO.XRAY 09:44
PROVIDERS: PCP Internal Medicine Medical Oncology; Visit Provider Hospitalist
DX: R91.8 Other nonspecific abnormal finding of lung field (principal)
CPT/HCPCS: 71046

== ENCOUNTER → 2025-05-24 10:57 | Outpatient (BNV) | payer MEDICARE, SELFPAY | PROVIDERS: PCP Internal Medicine Medical Oncology; Visit Provider Radiology Diagnostic Radiology | DX: R91.8 Other nonspecific abnormal finding of lung field (principal) | CPT/HCPCS: 71046 ==

== ENCOUNTER 2025-05-26 09:07 | Outpatient (RCR) | payer MEDICARE, SELFPAY | END 2025-05-26 15:27 | disposition home or self-care (01) | LOC: HO.PT 09:07 | PROVIDERS: PCP Internal Medicine Medical Oncology; Visit Provider Internal Medicine Medical Oncology | DX: M62.81 Muscle weakness (generalized) (principal); I63.9 Cerebral infarction, unspecified; R29.898 Other symptoms and signs involving the musculoskeletal system | CPT/HCPCS: 97110; 97112; 97162; 97530 ==

== ENCOUNTER 2025-05-30 09:00 | Outpatient (AMB) | payer MEDICARE, SELFPAY ==
--- OUTSIDE RECORDS SUMMARY | 2025-03-03 05:40 | XMS_ITS ---
Author Organization Robbie Kothari III, MD Address [address] [facility] [place] [address] Care Team Providers Care Armature Connector Name Role Phone Rbobie Kothari Primary Care Provider REASON FOR VISIT ? Rx Social History Sex Assigned At : Social History Observation Description Sex Assigned At Male Encounters Encounter Location Date Provider Diagnosis Robbie Kothari III, MD [address] [place] [address] [place] [address] 03/03/2025 Robbie Kothari Plan Of Treatment Next Appt Details Provider Name:Robbie Kothari, 07/17/2025 10:00:00 AM, [address] [place] [address] [place], [address], Provider Name:Robbie Kothari, 01/29/2026 09:30:00 AM, [address] [place] [address] [place], [address], Progress Notes * Freeman ROCHADOB: 0 (85 yo M)Acc No.[id number]:03/03/2025 Patient: Freeman CAZARES :1940 A ge:85 Y S ex:Male Address:[place] [address] * true * Date: Generated for Printi ng/Faxing/eTransmitting on: 0 05/30/2025 11:11 AM EDT
--- OUTSIDE RECORDS SUMMARY | 2025-03-09 10:18 | XMS_ITS ---
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) Referral Organization Robbie Kothari III, MD Referring Provider First Name Rbobie Referring Provider Last Name Saniya Referring Provider Speciality Internal M edicine Referred Organization [facility] nter Referred Provider [facility], Core Physical Therapy Referred Address [address] [place] [phone], Referred Provider Specialty Physical The rapist General [...] Provider Speciality Internal M edicine Referred Provider [facility] er, Speech and Hearing Referred Provider Specialty Unknown General Notes DSarika 03/09/2025 02:27:01 PM > Referral and last progress not faxed Referral Priority Routine Referral Appointment Date 03/15/2025 REASON FOR VISIT referral Social History Sex Assigned At : Social History Observation Description Sex Assigned At Male Encounters Encounter Location Date Provider Diagnosis Robbie Kothari III, MD [address] [place] [address] [place] [address] 03/09/2025 Robbie Kothari Plan Of Treatment Referrals Referral Date Details 03/09/2025 03/09/2025, Evaluate and Treat Physical Therapy OT, Core Physical Therapy [facility], [address] [place] [address], [place], [place], [phone], 03/09/2025 03/09/2025, Evaluate and Treat Speech Therapy, Speech and Hearing [facility] Next Appt Details Provider Name:Robbie Kothari, 07/17/2025 10:00:00 AM, [address] [place] [address] [address], [place], [address], Provider Name:Robbie Kothari, 01/29/2026 09:30:00 AM, [address] [place] [address] [address], [place], [address], Progress Notes * Freeman ROCHADOB: 0 (85 yo M)Acc No.[id number]:03/09/2025 Patient: Aranza ALBRECHTFreeman Roque :1940 A ge:85 Y S ex:Male Address:[address] [place], [place] [address] [address] Subjective: * Chief Complaints: * R eferral * Medical History: * Surgical History: * Hospitalization/Major Diagno stic Procedure: * Medications: Objective: * Vitals: * Physical Examination: Assessment: Plan: * Treatment: * Procedure Codes: * true * Date: Generated for Chip andres/Awais/eTransmitting on: 0 05/30/2025 11:10 AM EDT Consultation Request Notes Referral Date Referring Provider Referred Provider Not es 03/09/2025 Saniya [facility], Core Physical Therapy Evaluate and Treat Physical Therapy OT 03/09/2025 Saniya [facility], Speech and Hearing Evaluate and Treat Speech Therapy
--- OUTSIDE RECORDS SUMMARY | 2025-03-10 05:22 | XMS_ITS ---
Author Organization Robbie Kothari III, MD Address [address] [place] [place] [address] Care Team Providers Care Technical Asst Name Role Phone Robbie Kothari Primary Care Provider REASON FOR VISIT Refill [...] Provider Diagnosis Robbie Kothari III, MD [address] [place] [address] [place] [address] 03/10/2025 Robbie Kothari Plan Of Treatment Medication Medication Name Sig Start Date Stop Date Notes predniSONE 20 MG 1 tablet with food o r milk Orally Once a day for 10 days 03/10/2025 05/09/2025 Next Appt Details Provider Name:Robbie Kothari, 07/17/2025 10:00:00 AM, [address] [place] [address] [place], [address], Provider Name:Robbie Kothari, 01/29/2026 09:30:00 AM, [address] [place] [address] [place], [address], Progress Notes * Freeman ROCHADOB: 0 (85 yo M)Acc No.[id number]:03/10/2025 Patient: Freeman CAZARES :1940 A ge:85 Y S ex:Male Address:[address] [place], [place] [address] [address] * Refills Start predniSONE Tablet, 20 MG, Orally, 10 Tablet, 1 tablet with food or milk, Once a day, 10 days, Refills=5 * true * Date: Generated for Chip andres/Awais/Juaquinitting on: 0 05/30/2025 11:11 AM EDT
--- OUTSIDE RECORDS SUMMARY | 2025-03-20 06:45 | XMS_ITS ---
Author Organization Robbie Kothari III, MD Address [address] [place] [address] Care Team Providers Care Header Operator Name Role Phone Robbie Kothari Primary Care Provider [phone] Allergies Allergen (clinical drug ingredient) Drug/Non Drug Allergy documented on EMR Reaction Allergy Type Onset Date Status No Known Drug Allergy Unknown Drug Allergy Active No Known Food Allergy Unknown Drug Allergy Active REASON FOR VISIT Mycobacterial pulmonary infection, Recent cerebral hemorrhage Left hemisphere, Gout, Benign prostatic hypertrophySleep apnea Medications Medication SIG (Take, Route, Frequency, Duration) Notes Start Date End Date Status Nystatin 824797 UNIT/GM APPLY TOPICALLY 3 TIMES A DAY [...] 03/10/2025 Active Hydrocortisone 1 % 1 application 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 Teacher ally Twice a day 01/27/2025 Albuterol Sulfate (2.5 MG/3M L) 0.083% Inhalation Next Appt Details Follow Up: 6 Weeks, Reason: ov Provider Name:Robbie Kothari, 07/17/2025 10:00:00 AM, [address] [place] [address] [address], [place], [address], Provider Name:Robbie Kothari, 01/29/2026 09:30:00 AM, [address] [place] [address] [address], [place], [address], Progress Notes * Freeman ROCHADOB: 0 (85 yo M)Acc No.[id number]:03/20/2025 Progress Notes Patient: Aranza Freeman BURGESS Provider: [...] x-cigarette smoker H e has been to [facility] for 43 years and has 2 children and 2 grandchildren. 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 He was born in [place], [place]. * Medications: T akingTamsulosin HCl 0.4 MG Capsule 1 capsule Orally at bed time Azithromycin 500 MG Tablet 1 tablet Orally Once a day Atorvastatin Calcium 10 MG Tablet 1 tablet Orally Once a day Nystatin 036551 UNIT/GM Powder APPLY TOPICALLY 3 TIMES A [...] tablet Orally Once a day Taking Nystatin 996027 UNIT/GM Powder APPLY TOPICALLY 3 TIMES A [...] N otes :Just before discharge from an [facility] rehabilitation he was begun on Keppra for periods of unresponsiveness. A repeat CT scan November 18, 2024 showed improvement in the hemorrhage and edema. The Her will be discontinued until the electroencephalogram is done. We have requested a repeat visit from [facility] neurology. 8 . N ontraumatic hemorrhage of [...] Once a day; C ontinue Nystatin Powder, 076442 UNIT/GM, APPLY TOPICALLY 3 TIMES A DAY [...] MD Date: 0 03/20/2025 Generated for Chip andres/Awais/Juaquinitting on: 0 05/30/2025 11:11 AM EDT History and Physical Notes * [...]
--- OUTSIDE RECORDS SUMMARY | 2025-05-02 07:00 | XMS_ITS ---
Author Organization Robbie Kothari III, MD Address [address] [place] [address] Care Team Providers Care Water Taxi Operator Name Role Phone Robbie Kothari Primary Care Provider [phone] Allergies Allergen (clinical drug ingredient) Drug/Non [...] Date Provider Diagnosis Robbie Kothari III, MD [address] [place] [address] [place] [address] 05/02/2025 Robbie Kothari Former smoker Z87.89 1 [...] Up: 2 Months, Reason: OV Provider Name:Robbie Kothari, 07/17/2025 10:00:00 AM, [address] [place] [address] [address], [place], [address], Provider Name:Robbie Kothari, 01/29/2026 09:30:00 AM, [address] [place] [address] [address], [place], [address], Progress Notes * Freeman ROCHADOB: 0 (85 yo M)Acc No.[id number]:05/02/2025 Progress Notes Patient: Aranza Freeman [place] Provider: Mike Kothari MD :1940 A ge:85 Y S ex:Male Date:05/02/2025 Address:[address], [id number] Subjective: * Chief Complaints: * M ycobacterium avium pulmonary infectionHyperlipidemiaBenign prosthetic hypertrophyCerebral hemorrhageLeft cerebral hemorrhageSeizuresPostural hypotension * HPI: C OVID-19 Screening: Jose guerrero returns for ongoing medical management. He is now taking Ryskamp in from the office specialist for his mycobacterial pulmonary infection. He [...] x-cigarette smoker H cesar has been to [facility] for 43 years and has 2 children and 2 grandchildren. 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 * Medications: T akingTylenol PM Extra [...] DiscontinuedTamsulosin HCl 0.4 MG Capsule Oral Nystatin 911269 UNIT/GM Powder APPLY TOPICALLY 3 TIMES A [...] HCl 0.4 MG Capsule Oral Discontinued Nystatin 509497 UNIT/GM Powder APPLY TOPICALLY 3 TIMES A [...] MD Date: 0 05/02/2025 Generated for Larisai dmitry/Awais/Juaquinitting on: 0 05/30/2025 11:10 AM EDT History and Physical Notes * [...]
[2025-05-30 09:04] VITALS: BP 118/58; PULSE 80; O2SAT 94; BMI 21.1
--- NOTE | 2025-05-30 09:04 | MHC.OFFVIS ---
Vital Signs 05/30/25 09:04 Height 6 ft 4 in Weight 173 lb 1.006 oz BMI 21.1 BP 118/58 L Blood Pressure Location Lt brachial Position Sitting Pulse 80 Pulse Source Pulse Oximeter Pulse Oximetry (%) 94 Oxygen Delivery Method Room Air Intake Visit Reasons: Pneumonia Lean Sensei Required: No Accompanied by: Spouse Allergies latex (LATEX) Allergy (Intermediate, Verified 05/30/25 09:06) RASH Band-Aid Allergy (Severe, Uncoded 05/01/25 20:29) rash neosporin Allergy (Severe, Uncoded 05/01/25 20:29) rash HPI Comments Details: The patient is an 85-year-old gentleman with a known history of childhood asthma in addition to pulmonary nodules. The patient followed for many years with CT scan following some abnormal findings including pulmonary nodules and interstitial changes. Ultimately no significant findings were noted. For the last year the patient has had episodes of coughing up blood. He has not coughed up blood now more than 6 months. He denies any weight loss or night sweats. He states that he walks about a mi a day and denies any shortness of breath. He has been evaluated for cardiac symptoms including palpitations. At this point the patient does not use any respiratory inhalers. He does not feel like he needs new either. We did look at his chest x-ray from September 2020 demonstrating some increased interstitial changes compared to his previous x-ray from 2019. We personally reviewed that x-ray was also personally reviewed the CT scan of the chest that he had back in 2017 demonstrating some interstitial changes primarily in the upper lung zones. The patient did have multiple pulmonary nodules. Therefore, based on his abnormal chest x-ray and ongoing intermittent coughing with sometimes hemoptysis the patient needs to have a CT scan of the chest. In addition to that will having undergo pulmonary function studies to assess her COPD. 01/08/2021 the patient is here for pulmonary follow-up visit. Overall he is feeling better. Denies any significant hemoptysis at this time. He did undergo his pulmonary function studies which were reassuring without any obstruction no restriction. He does have moderate diffusion impairment. In addition to that he did undergo a repeat CT scan of the chest which was compared to his CT scan from 2017. It demonstrated interval worsening of the bronchiectasis the pulmonary nodules and tree-in-bud. This appears to be more consistent with a smoldering infectious process versus inflammatory process. At this point the patient is agreeable to bronchoscopy to assess for any infectious etiologies and also to rule out malignant processes. 01/30/2021 the patient is here for pulmonary follow-up visit. He is status post bronchoscopy. He did have significant purulent secretions in the airways that were suction. Otherwise no other acute abnormalities noted. His cultures are all negative at this time. Still waiting for the results of the mycobacteria cultures assessing for the possibility of a mycobacterial lung disease. In the meantime he has been using his nebulizer. At this point he is to get an Acapella valve to further provide chest physical therapy with the goal of maintaining good pulmonary hygiene. 07/29/2021 the patient is here for a pulmonary follow-up visit. Overall the patient has been doing much better. He is responding well to the nebulized therapy followed by the Acapella valve. He has been able to clear significant amount of secretions. His lungs appear to be better overall with less congestion. He has been using the nebulizer once a day and I did agree with him decreasing his frequency to once a day at this time. He does have underlying pulmonary nodules. The last time he had a CT scan of the chest was back in November 2020. Will plan to follow-up with a CT scan in 6 months time which should be little bit longer than a year. I am hopeful the nodules are stable we can at that point follow them as needed. However, if the nodules are growing in size further diagnostic interventions will be warranted. 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 At this point the patient is doing well and does not require antimicrobial agents at this time. 10/03/2021 the patient is here for a pulmonary follow-up visit. He continues to have a productive cough on a regular basis. He does use the nebulized therapy and is able to expectorate well. 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 He also understands that treating it will require 17 months of antimicrobial therapy in order to follow the Infectious Disease recommendations. He also understands that there is a high relapse straight even after completing the 17 months. Therefore at this point will follow him closely since his symptoms do not appear to be worsening. We did review his CT scan of the chest demonstrating bronchiectatic changes in addition to pulmonary nodular densities. No evidence of any cavitations at this time. Patient last CT scan was back in 2020. the repeat CT scan scheduled for December 2021. if the nodules are changing increasing of progressing we need to consider treating the mycobacteria infection. In the meantime will try aggressive chest physical therapy by continuing his nebulized therapy and also adding hypertonic saline. The patient does have an Acapella valve any start using it after the nebulized therapy. In addition to that the patient did have a recent fall. He did go to the ER and the scott to the back of his call because of a laceration. He is also complaining of some left-sided flank discomfort from his fall. He does have some point tenderness over the ribs. Likely contusions. He had a CT scan of the brain demonstrating some chronic changes. He did not have any chest imaging studies. At this point will follow-up after his CT scan he is going to continue with aggressive chest physical therapy. 12/24/2021 the patient is here for pulmonary follow-up visit. He describes worsening cough productive in nature. He is also developing increasing shortness of breath. Moderate severity with activity. The patient did have a repeat CT scan of the chest that we personally reviewed demonstrating waxing waning pulmonary nodules in addition to having interval progression of the bronchiectasis and appears to have more treating budding and more progression of his airway disease. This is likely secondary to the smoldering infection with the non tuberculosis mycobacterial infection. He did try the percussion valve without any significant improvement. Therefore this time view of his worsening symptoms and also worsening CT scan will go ahead and start him on therapy. Will try him on the lowest dose possible in order for him to be able to tolerated and we can always consider increasing the medication. Once he is on therapy around 4-6 weeks after worse will get another sputum culture to make sure that he is tolerating the therapy. He also have to undergo blood work and also an EKG to make sure that he can tolerate therapy. Also mentioned on the report of the CT scan is that he does have 2 mild compression fractures. At this point the patient denies any back discomfort. However, in view of the findings the patient should follow up with his primary care doctor to be assessed for the possibility of osteopenia or osteoporosis. 02/25/2022 so the patient is here for a pulmonary follow-up visit. Overall he is doing well from a respiratory status. His cough is overall better. He still expectorating some but much less. He is tolerating the antimycobacterial therapy. Has been on the azithromycin 3 times a week in addition to a lower dose rifampin and ethambutol. Denies any eye Darron just. He did have an EKG back in December without any QT changes. The patient has not had any blood work since then. He will go for blood work to make sure that everything else is stable. In the meantime he is having some diarrhea issues. We did talk about the side effects of the medications and GI symptoms. If his GI symptoms becomes too significant we talked about dropping 1 of the agents to just at the dual therapy. The patient understands that the triple antibiotic regimen to avoid too much resistance buildup due to the mycobacterial resistance possibilities. In the meantime the patient did have a CT scan back in December demonstrating interval worsening of pulmonary nodules and bronchiectatic changes. Will plan to continue the therapy and follow-up with a CT scan in June 2022. The patient meantime will provide us with the sputum sample to make sure that the mycobacterium is eradicating. 06/30/2022 the patient is here for a pulmonary follow-up visit. Overall continues to feel well. His cough is overall better. He is exercising regularly. He is tolerating the triple antimicrobial therapy. The only adverse effect is discoloration of the urine which is common with the rifampin In addition to some diarrhea. We did talk about adding probiotics to his regimen. He will try some [id number] options. He did have a repeat CT scan of the chest demonstrating interval improvement of the cavitary lesions and also improvement of the parenchymal disease. No evidence of any new nodules and he has stable pulmonary nodules. Therefore it is encouraging that the therapy has been clinically affected also radiologically with evidence of improvement. He understands that treatment should at least last been 12-15 months of therapy. His sputum culture repeat has not demonstrated any mycobacterial disease. 12/26/2022 the patient is here for a pulmonary follow-up visit. He continues to do well. His cough is overall better. He continues on the triple antimicrobial therapy. He has completed now 1 year. Based on the fact that the patient is doing better will go ahead and stop the ethambutol and the rifampin and will continue with the azithromycin for now. His last EKG was reassuring. Will plan to continue on the azithromycin and will plan to repeat the CT scan in May 2023. If the patient develops any worsening symptoms prior to that he is to call the office for an earlier evaluation. 06/24/2023 the patient is here for a pulmonary follow-up visit. He continues on the azithromycin 3 times a week 500 mg. He is happy that he is stopped the ethambutol and rifampin. Respiratory tobin the patient is doing well denies any worsening cough or shortness of breath. Although he has had episodes of hemoptysis he states. Is minimal amount scant in amount. At this point is subsided. Still the patient is aware that if it happens again if it is a very more significance he would have to call again in order to address the hemoptysis. He did recently have a CT scan 06/17/2023 which I personally reviewed. It appears patient does have some significant bronchiectasis and nodular densities and tree-in-bud and all are very similar to his previous CT scan at least there is no worsening of disease. He also has a new pulmonary nodule in the right base. Seems to be also related to the underlying mycobacterial disease. At this point will continue with the azithromycin 3 times a week since the patient clinically doing well. Although, if his hemoptysis worsens his respiratory symptoms worsen then will need to readdress that. I will also provide him with a sputum cup in order for him to bring a sputum sample. The patient should get a repeat CT scan 6 months to follow-up with a new pulmonary nodule. 12/16/2023 the patient is here for a pulmonary follow-up visit. Overall he continues to do well. Continues on the azithromycin 500 mg 3 times a week. His cough is improved. Denies any significant congestion. Denies any hemoptysis. Overall the patient has been doing well. Back in July he did grew Klebsiella from his sputum culture. Otherwise has not grown any other organisms. He did have a CT scan of the chest which we personally reviewed and also compared to the CT scans from 10/03/2019 22 in 2022. it appears that he is waxing waning pulmonary nodules along with bronchiectatic changes treating budding and a right upper lobe thick-walled cavitary lesion. For the most part the nodular densities have changed some indeed have gotten little better but again some new ones are present. The patient also has significant bronchiectasis. He has not been using the Acapella valve for chest PT. We did talk about the importance of that. The patient understands that most likely the findings on the CT scan all has to do with mycobacterial disease. Also predisposes him to Other enteric bacteria. Still is hard to know for sure if any of those nodular densities have any malignant potentials. At this point clinically the patient is doing well and therefore this CT scan is also reassuring. Will go ahead and follow-up in 6 months. The patient needs to have an EKG to make sure he is tolerating the macrolide therapy. In addition to that will request another sputum for culture and also AFB. If the patient develops any worsening respiratory symptoms specially hemoptysis needs to call the office quickly. Otherwise will follow-up in 6 months. Will discuss further imaging studies when he returns in 6 months. 06/17/2024 the patient is here for a pulmonary follow-up visit. Overall he continues to do well cough is better chest congestion is better overall feels normal. The patient had sputum cultures back in December indeed positive for mycobacterium still. The organism still sensitive to the azithromycin. Initially he was not a broader course of antimicrobial therapy and subsequently we were able to switch him down to monitor therapy. Currently he is going to send a small prophylactic dose of azithromycin. His imaging studies CT scans have not changed which is reassuring as well. Has waxing waning pulmonary nodules. Although he has extensive bronchiectatic changes because of the chronicity of the non tuberculosis mycobacterial infection. Still though since the patient is doing well and he is fairly asymptomatic and also considering the risks additional medications at this time based on his age and other comorbidities will go ahead and just keep him on the azithromycin 3 times a week at the current dose. If any worsening symptoms we call. Otherwise will follow-up with a chest x-ray in 6 months. Prior to the next visit he should also get an EKG. 12/16/2024 the patient is here for pulmonary follow-up visit. Since we last spoke the patient was diagnosed with pneumonia. Chest x-ray demonstrated a worsening right upper lobe airspace disease. The patient had just had a stroke and likely aspiration related. He had been on the azithromycin daily in addition to that we had put him on cefpodoxime. His symptoms improved. He is not coughing as much. He is using nebulizer. Sometimes when uses it at night he does get choked up with secretions. Therefore I did time just to use it in the morning and then in the evening as needed. He should also be using his Acapella valve. The patient's exam is reassuring. Will have him get an x-ray today to make sure that this right upper lobe process as improved. If it looks any worse then will consider additional antibiotic therapy. The patient also had blood work done including a low magnesium level will have him go for blood work as well. The patient will return 4 months. He will continue to work with physical therapy occupational therapy for his recent stroke. Seems like he has already shown some improvement. 03/01/2025 the patient is here for pulmonary follow-up visit. Since we last spoke he went to the hospital again with pneumonia. Was back in January. He was given antibiotics and also chlorhexidine mouthwash. After she had a chest x-ray which I personally reviewed in February. Still has some evidence of airspace disease but very stable compared to his previous x-rays and his recent pneumonia. He states that he is still coughing up some phlegm although recently his cough has decrease in his phlegm production has decreased as well. His exam is indeed reassuring. He continues on the azithromycin on a daily basis. And he had been on the chlorhexidine mouthwash. He does not have his own dentition but still will go ahead and continue for a month to minimize risk of aspiration. He is doing better with the eating and he has actually gained some weight. His cough is also strong which is reassuring. Overall he is doing a little bit better. Will continue with current regimen will try to get another sputum if he is able to do so and will repeat the x-ray before the next visit in 3 months. He has any worsening symptoms or any concerning symptoms he can always call for an earlier assessment. 04/17/2025 the patient is here for a pulmonary follow-up visit. Overall he is doing better. He is eating better he is gaining weight he is also walking better after having the stroke he is recovering very well. We did review his sputum cultures again demonstrating the mycobacterium avium complex. And also reviewed his most recent x-ray from 04/12/2025 and I did compare to previous x-rays from February and January of 2025 demonstrating the persistent airspace disease related to his underlying smoldering lower respiratory infection from the non tuberculosis mycobacterial process. He has been on the azithromycin now daily without any significant improvement in the cough and symptoms. Will go ahead and add rifampin to his regimen. He already has I issues so will avoid ethambutol. He will do it 3 times a week and then get blood work and then if it is stable he can increase it to daily. In the meantime he may be a good candidate for amikacin. Will go ahead and request a prior approval to start him on amikacin at this time. Will reassess with a repeat x-ray when he returns in 3 months. 05/30/2025 the patient is here for pulmonary follow-up visit. Overall he is doing okay. He has been under rifampin 3 times a week and also the azithromycin 3 times a week. Recently he did get the Arikayce any did start the neb therapy daily. He is having a cough with it though. He has tolerated the therapy. Chest congestion seems to be better. He did have a chest x-ray which I personally reviewed demonstrating interval improvement in the airspace disease. He has continues to have bronchiectatic changes in nodular density consistent with the mycobacterial disease. Overall he seems to be doing okay, will go ahead and start him on inhaled corticosteroids and also long-acting bronchodilators to help him with the cough overall. The patient can also have some cough medication at nighttime if it is difficult for him to sleep because of the coughing induced likely from the Arikayce. Will continue to monitor him and he will monitor closely for any adverse effects. Will plan to get a chest x-ray and a follow-up in 3 months. If he has any issues prior to this he will call for an earlier assessment. [facility] Medical History Bronchiectasis COPD (chronic obstructive pulmonary disease) Mycobacterial disease Hernia HLD (hyperlipidemia) BPH (benign prostatic hyperplasia) Bronchiectasis Hemoptysis Pulmonary nodules Cough Abnormal chest x-ray Surgical History Hx of colonoscopy Social History Household Members: Spouse Housing: House Do you presently have visiting nurse or other home services: Yes Alcohol intake: former Patient Tobacco Use Status: Former Tobacco user Tobacco use type: Cigarette Years Smoked: 20 years service: Yes Review of Systems Const Denies headache(s), Denies night sweats, Reports weight gain and Denies weight loss ENT Denies change in voice, Denies headache(s), Denies lip swelling, Denies mouth pain, Reports nasal congestion, Reports nasal discharge and Denies tongue swelling Card Denies chest pain Resp Denies change in phlegm color, Reports chest congestion, Reports cough, Reports hemoptysis, Denies excessive phlegm production, Denies pain on inspiration and Denies pain with cough GI Denies abdominal pain and Denies diarrhea Musc Denies no additional complaints Neuro Reports as per HPI and Denies headache(s) Psych Denies no additional complaints Brad/Lymph Denies easy bleeding and Denies lymphadenopathy Aller/Immun Denies lip swelling and Denies tongue swelling Physical Exam Vital Signs: Last Vital Signs Pulse 80 05/30/25 09:04 BP 118/58 L 05/30/25 09:04 Pulse Ox 94 05/30/25 09:04 Oxygen Delivery Method Room Air 05/30/25 09:04 BMI result Body Mass Index 21.1 Last Vital Signs Temp 98.5 F 01/16/25 07:44 Pulse 94 01/16/25 08:33 Resp 18 01/16/25 08:33 BP 119/73 01/16/25 07:44 Pulse Ox 97 01/16/25 07:44 O2 Del Method Room Air 01/16/25 07:44 BMI result Body Mass Index 18.5 Const Other: Constitutional : Awake, interactive, not in distress Neck : Normal inspection, Supple Cardiovascular : RRR, no JVP, no lower extremity edema Respiratory : fair bilateral air entry, no crackles, wheezes or rhonchi Gastrointestinal: soft, lax, Normal bowel sounds, Non tender Skin : Warm, Dry Neurological : Alert & oriented x3, mild right sided weakness upper more than lower extremities General: comfortable Neck Neck: Yes supple Chest Chest palpation & inspection: abnormal inspection of the chest Resp Effort & Inspection: normal respiratory effort Auscultation: no crackles, no rales, no rhonchi and diminished lung sounds Cardio Rhythm: abnormal rhythm Heart sounds: S1 normal heart sound present and S2 normal heart sound present GI Palpation (GI): Soft to palpation Skin General skin exam: no rashes or lesions noted Extrem General: Yes no clubbing, cyanosis or edema Assessment & Plan Assessment & Plan (1) Bronchiectasis: Code(s): J47.9 - Bronchiectasis, uncomplicated Category: Medical Qualifiers: Bronchiectasis type: uncomplicated Qualified Code(s): J47.9 - Bronchiectasis, uncomplicated (2) Pulmonary nodules: Code(s): R91.8 - Other nonspecific abnormal finding of lung field Category: Medical (3) Cough: Code(s): R05 - Cough Category: Medical Qualifiers: Cough type: chronic Qualified Code(s): R05.3 - Chronic cough (4) Mycobacterial disease: Code(s): A31.9 - Mycobacterial infection, unspecified Category: Medical (5) COPD (chronic obstructive pulmonary disease): Code(s): J44.9 - Chronic obstructive pulmonary disease, unspecified Category: Medical Qualifiers: COPD type: chronic bronchitis Chronic bronchitis type: simple Qualified Code(s): J41.0 - Simple chronic bronchitis Plan CPT with neb and acapella valve continue nebulizer therapy with albuterol continue azithromycin 500mg MWF -->daily continue Rifampin 3 times a week continue Amikacin nebs start Wixela 250mcg daily CXR in 2-3 months cough medicine as needed F/U 3 months Orders: Orders XR chest 2V Today J41.0 - Simple chronic bronchitis Medications: New fluticasone propion-salmeterol 250-50 mcg/dose (Wixela Inhub) 1 inh inhalation Q12H 60 ea 11RF 30 days codeine-guaifenesin 10-100 mg/5 mL 10 mL PO Q6H PRN 300 mL 0RF cough 10 days Coding Level of Care Code Est Pt Level 5 (25213) Complex EM visit Add On G2211 Diagnoses Bronchiectasis without complication J47.9 Bronchiectasis type: uncomplicated Pulmonary nodules R91.8 Chronic cough R05.3 Cough type: chronic Mycobacterial disease A31.9 Simple chronic bronchitis J41.0 COPD type: chronic bronchitis Chronic bronchitis type: simple Time Spent (min) 30
--- OUTSIDE RECORDS SUMMARY | 2025-05-30 11:10 | XMS_ITS | Clinical Summary ---
Author Organization [facility] Address [address] [place] [address] [place] [address] Phone Care Team Providers Care Control Inspector Name Role Phone Unavailable Primary Care [...]
--- OUTSIDE RECORDS SUMMARY | 2025-05-30 11:11 | XMS_ITS | Encounter Summary ---
Author Organization [facility] Address [address] [place] [address] Care Team Providers Care Culture Room Worker Name Role Phone Gloria Preston MD Primary Care Provider [phone] Encounter Details Date Type Department Care Team (Late st Contact Info) Description 11/14/2024 Lab Requisition [facility] - Main Lab [address] [facility] [place] [address] Gloria Preston MD [address] [place] [phone] Encounter for other general examination Social History [...] AM EST) WBC 4.3(L) 4.8 - 10.8 K/[facility] LAB HEMETOLOGY METHOD 11/14/2024 10:05 AM [facility] LAB RBC 4.00(L) 4.50 - 5.50 M/mcL LAB HEMETOLOGY METHOD 11/14/2024 10:05 AM [facility] LAB Hemoglobin 13.0(L) 13.5 - 17.5 g/dL LAB HEMETOLOGY METHOD 11/14/2024 10:05 AM [facility] LAB Hematocrit 37.6(L) 42.0 - 54.0 % LAB HEMETOLOGY METHOD 11/14/2024 10:05 AM [facility] LAB MCV 93.5 79.0 - 98.0 FL LAB HEMETOLOGY METHOD 11/14/2024 10:05 AM [facility] LAB MCH 32.3(H) 27.0 - 32.0 pcg LAB HEMETOLOGY METHOD 11/14/2024 10:05 AM [facility] LAB MCHC 34.6 32.0 - 37.0 g/dL LAB HEMETOLOGY METHOD 11/14/2024 10:05 AM [facility] LAB RDW 12.4 11.0 - 15.0 % LAB HEMETOLOGY METHOD 11/14/2024 10:05 AM [facility] LAB Platelets 368 130 - 400 K/mcL LAB HEMETOLOGY METHOD 11/14/2024 10:05 AM [facility] LAB MPV 9.7 7.0 - 11.0 FL LAB HEMETOLOGY METHOD 11/14/2024 10:05 AM [facility] LAB NRBC 0.0 <1.0 % LAB HEMETOLOGY METHOD 11/14/2024 10:05 AM [facility] LAB NRBC Absolute 0.00 <0.10 K/mcL LAB HEMETOLOGY METHOD 11/14/2024 10:05 AM [facility] LAB Neutrophils Relative 76.1 % LAB HEMETOLOGY METHOD 11/14/2024 10:05 AM [facility] LAB Lymphocytes Relative 10.3 % LAB HEMETOLOGY METHOD 11/14/2024 10:05 AM [facility] LAB Monocytes Relative 11.0 % LAB HEMETOLOGY METHOD 11/14/2024 10:05 AM [facility] LAB Eosinophils Relative 1.2 % LAB HEMETOLOGY METHOD 11/14/2024 10:05 AM [facility] LAB Basophils Relative 0.9 % LAB HEMETOLOGY METHOD 11/14/2024 10:05 AM [facility] LAB Immature Granulocytes Relative 0.5 % LAB HEMETOLOGY METHOD 11/14/2024 10:05 AM [facility] LAB Neutrophils Absolute 3.26 1.50 - 7.00 K/mcL LAB HEMETOLOGY METHOD 11/14/2024 10:05 AM [facility] LAB Lymphocytes Absolute 0.44(L) 1.00 - 5.00 K/mcL LAB HEMETOLOGY METHOD 11/14/2024 10:05 AM [facility] LAB Monocytes Absolute 0.47 0.20 - 1.00 K/mcL LAB HEMETOLOGY METHOD 11/14/2024 10:05 AM [facility] LAB Eosinophils Absolute 0.05 0.00 - 0.50 K/mcL LAB HEMETOLOGY METHOD 11/14/2024 10:05 AM [facility] LAB Basophils Absolute 0.04 0.00 - 0.20 K/mcL LAB HEMETOLOGY METHOD 11/14/2024 10:05 AM [facility] LAB Immature Granulocytes Absolute 0.02 0.00 - 0.03 K/mcL LAB HEMETOLOGY METHOD 11/14/2024 10:05 AM [facility] LAB Blood Venous blood specimen / Unknown Venipuncture / Unknown 11/14/2024 6:36 AM EST 11/14/2024 8:21 AM EST us Gloria Preston MD LAB BLOOD ORDERABLES Final Resu lt [facility] LAB [address] [place] [address], * (ABNORMAL) Basic metabolic panel (11/14/2024 6:36 AM EST) Sodium 135 133 - 145 mmol/L LAB CHEMISTRY METHOD 11/14/2024 10:43 AM [facility] LAB Potassium 4.0 3.5 - 5.5 mmol/L LAB CHEMISTRY METHOD 11/14/2024 10:43 AM [facility] LAB Chloride 101 96 - 110 mmol/L LAB CHEMISTRY METHOD 11/14/2024 10:43 AM [facility] LAB CO2 24 21 - 32 mmol/L LAB CHEMISTRY METHOD 11/14/2024 10:43 AM [facility] LAB Anion Gap 10 3 - 11 LAB CHEMISTRY METHOD 11/14/2024 10:43 AM [facility] LAB Glucose 86 70 - 100 mg/dL LAB CHEMISTRY METHOD 11/14/2024 10:43 AM [facility] LAB BUN 22 5 - 25 mg/dL LAB CHEMISTRY METHOD 11/14/2024 10:43 AM [facility] LAB Creatinine 0.59(L) 0.70 - 1.30 mg/dL LAB CHEMISTRY METHOD 11/14/2024 10:43 AM [facility] LAB eGFR 96 >=60 mL/min/1. 73m2 LAB CHEMISTRY METHOD 11/14/2024 10:43 AM [facility] LAB Comment:Calculation based on the Chronic Kidney Disease Epidemiology Collaboration (CKD-EPI) equation refit without adjustment for race. BUN/Creatinine Ratio 37.3 LAB CHEMISTRY METHOD 11/14/2024 10:43 AM [facility] LAB Calcium 9.0 8.5 - 10.5 mg/dL LAB CHEMISTRY METHOD 11/14/2024 10:43 AM [facility] LAB Blood Venous blood specimen / Unknown Venipuncture / Unknown 11/14/2024 6:36 AM EST 11/14/2024 8:21 AM EST us Gloria Preston MD LAB BLOOD ORDERABLES Final Resu lt [facility] [address] [place] [address], documented in this encounter Visit Diagnoses Diagnosis Encounter for other general examination documented in this encounter Care Teams Culture Room Worker Relationship Specialty Start Date End Date Gloria Preston MD [address] [place] [phone] PCP - General Hospitalist Medicine 11/05/24 documented as of this encounter
--- OUTSIDE RECORDS SUMMARY | 2025-05-30 11:11 | XMS_ITS | Patient Health Record ---
Author Organization [facility] Address [address] [place] [address] Care Team Providers Care Shipping Services Sales Representative Name Role Phone Robbie Kothari MD Primary Care Provider Ana Rosales Unavailable [phone] Allergies Allergen (clinical drug ingredient) Drug/Non Drug [...] atherosclerosis of arteries of lower limbs (disorder) ([id number] ) Atherosclerosis of [place] artery of both lower extremities, with unspecified presence of clinical manifestation (I70.203) Active confirmed Q7(A), Q8(2B), Q9(1B,2 C) Vital Signs Blood pressure diastolic 58 mm Hg 03/28/2025 Height 6 ft 4 in in 03/28/2025 Blood pressure systolic 114 mm Hg 03/28/2025 Weight 150 lbs 03/28/2025 BMI 18.26 kg/m2 03/28/2025 Encounters Encounter Location Date Provider Diagnosis [address] [address] 06/28/2024 Ana Perica Tinea unguium B35.1 ; Pain in right toe(s) M79.674 and Pain in left toe(s) M79.[address] [address] 09/27/2024 Ana Perica Tinea unguium B35.1 ; Pain in right toe(s) M79.674 and Pain in left toe(s) M79.[address] [address] 12/27/2024 Ana Perica Tinea unguium B35.1 ; Pain in right toe(s) M79.674 and Pain in left toe(s) M79.[address] [address] 03/28/2025 Ana Perica Atherosclerosis of [place] artery of both lower extremities, with unspecified [...] unguium (ICD-10 - B35.1) 03/28/2025 Atherosclerosis of [place] artery of both lower extremities, with unspecified [...] Provider Name:Ana garduno, 07/04/2025 09:15:00 AM, [address] [place] [address], [phone], Insurance Providers Payer Name Payer Address Payer Phone Subscriber Number Group Number Insured Name Patient Relationship to Insured Coverage Start Date Coverage End Date [employer] Medicare-309 [id number] [address] [place] [address] [id number] King Self - patient is the insured Medical (General) History Medical History History ICD Code Measles Mumps Chicken pox Stroke Surgical History Surgery Date(Month/Year) hernia colonoscopy Hospitalization History Reason Date(Month/Year) [facility]- Stroke 10/2024
--- OUTSIDE RECORDS SUMMARY | 2025-05-30 11:11 | XMS_ITS | Encounter Summary ---
Author Organization [facility] Address [address] [place] [address] Care Team Providers Care Gasoline Locomotive Crane Operator Name Role Phone Gloria Preston MD Primary Care Provider [phone] Encounter Details Date Type Department Care Team (Late st Contact Info) Description 11/07/2024 Lab Requisition [facility] - Main Lab [address] [place] [address] Gloria Preston MD [address] [place] [phone] Encounter for other general examination Social History [...] LAB CHEMISTRY METHOD 11/07/2024 1:06 PM EST [facility] LAB Potassium 3.9 3.5 - 5.5 mmol/L LAB CHEMISTRY METHOD 11/07/2024 1:06 PM EST [facility] LAB Chloride 99 96 - 110 mmol/L LAB CHEMISTRY METHOD 11/07/2024 1:06 PM [facility] LAB CO2 22 21 - 32 mmol/L LAB CHEMISTRY METHOD 11/07/2024 1:06 PM [facility] LAB Anion Gap 13(H) 3 - 11 LAB CHEMISTRY METHOD 11/07/2024 1:06 PM [facility] LAB Glucose 78 70 - 100 mg/dL LAB CHEMISTRY METHOD 11/07/2024 1:06 PM [facility] LAB BUN 20 5 - 25 mg/dL LAB CHEMISTRY METHOD 11/07/2024 1:06 PM [facility] LAB Creatinine 0.55(L) 0.70 - 1.30 mg/dL LAB CHEMISTRY METHOD 11/07/2024 1:06 PM [facility] LAB eGFR 98 >=60 mL/min/1. 73m2 LAB CHEMISTRY METHOD 11/07/2024 1:06 PM [facility] LAB Comment:Calculation based on the Chronic Kidney Disease Epidemiology Collaboration (CKD-EPI) equation refit without adjustment for race. BUN/Creatinine Ratio 36.4 LAB CHEMISTRY METHOD 11/07/2024 1:06 PM [facility] LAB Calcium 8.6 8.5 - 10.5 mg/dL LAB CHEMISTRY METHOD 11/07/2024 1:06 PM [facility] LAB AST (SGOT) 44(H) 10 - 42 unit/L LAB CHEMISTRY METHOD 11/07/2024 1:06 PM [facility] LAB Comment:Results verified by repeat testing ALT (SGPT) 41 10 - 60 unit/L LAB CHEMISTRY METHOD 11/07/2024 1:06 PM [facility] LAB Comment:Results verified by repeat testing Alkaline Phosphatase 100 42 - 121 unit/L LAB CHEMISTRY METHOD 11/07/2024 1:06 PM [facility] Total Protein 6.4 6.0 - 8.0 g/dL LAB CHEMISTRY METHOD 11/07/2024 1:06 PM [facility] Albumin 2.7(L) 3.2 - 5.0 g/dL LAB CHEMISTRY METHOD 11/07/2024 1:06 PM EST [facility] Total Bilirubin 1.1 0.0 - 1.4 mg/dL LAB CHEMISTRY METHOD 11/07/2024 1:06 PM EST [facility] LAB Blood Venous blood specimen / Unknown Venipuncture / Unknown 11/07/2024 5:23 AM EST 11/07/2024 10:38 AM EST us Gloria Preston MD LAB BLOOD ORDERABLES Final Resu lt [facility] [address] [place] [address], documented in this encounter Visit Diagnoses Diagnosis Encounter for other general examination documented in this encounter Care Teams Gasoline Locomotive Crane Operator Relationship Specialty Start Date End Date Gloria Preston MD [address] [place] [phone] PCP - General Hospitalist Medicine 11/05/24 documented as of this encounter
--- OUTSIDE RECORDS SUMMARY | 2025-05-30 11:11 | XMS_ITS | Encounter Summary ---
Author Organization [facility] Address [address] [place] [address] Care Team Providers Care Chief Executive Or Managing Director Name Role Phone Gloria Preston MD Primary Care Provider [phone] Encounter Details Date Type Department Care Team (Late st Contact Info) Description 11/10/2024 Lab Requisition [facility] - Main Lab [address] [facility] [place] [address] Gloria Preston MD [address] [place] [phone] Encounter for other general examination Social History [...] Resu lt Performing Organization Address [facility]/ZIP Co de Phone Number [facility] [address] [place] [address], [place] [phone] * Thyroid stimulating hormone (11/10/2024 6:06 AM EST) [facility] TSH 1.57 0.40 - 4.00 mcIU/mL LAB CHEMISTRY METHOD 11/10/2024 9:51 PM EST [facility] Blood Venous blood specimen / Unknown Venipuncture / Unknown 11/10/2024 6:06 AM EST 11/10/2024 8:03 AM EST Gloria Preston MD LAB BLOOD ORDERABLES Final Resu lt [facility] [address] [place] [address], [place] [phone] * (ABNORMAL) CBC auto differential (11/10/2024 6:06 AM EST) [facility] WBC 6.0 4.8 - 10.8 K/[facility] LAB HEMETOLOGY METHOD 11/10/2024 8:44 AM EST [facility] RBC 3.80(L) 4.50 - 5.50 M/[facility] LAB HEMETOLOGY METHOD 11/10/2024 8:44 AM [facility] LAB Hemoglobin 12.4(L) 13.5 - 17.5 g/dL LAB HEMETOLOGY METHOD 11/10/2024 8:44 AM [facility] LAB Hematocrit 36.7(L) 42.0 - 54.0 % LAB HEMETOLOGY METHOD 11/10/2024 8:44 AM [facility] LAB MCV 95.6 79.0 - 98.0 FL LAB HEMETOLOGY METHOD 11/10/2024 8:44 AM [facility] LAB MCH 32.3(H) 27.0 - 32.0 pcg LAB HEMETOLOGY METHOD 11/10/2024 8:44 AM [facility] LAB MCHC 33.8 32.0 - 37.0 g/dL LAB HEMETOLOGY METHOD 11/10/2024 8:44 AM [facility] LAB RDW 12.8 11.0 - 15.0 % LAB HEMETOLOGY METHOD 11/10/2024 8:44 AM [facility] LAB Platelets 337 130 - 400 K/mcL LAB HEMETOLOGY METHOD 11/10/2024 8:44 AM [facility] LAB MPV 9.8 7.0 - 11.0 FL LAB HEMETOLOGY METHOD 11/10/2024 8:44 AM [facility] LAB NRBC 0.0 <1.0 % LAB HEMETOLOGY METHOD 11/10/2024 8:44 AM [facility] LAB NRBC Absolute 0.00 <0.10 K/mcL LAB HEMETOLOGY METHOD 11/10/2024 8:44 AM [facility] Neutrophils Relative 72.1 % LAB HEMETOLOGY METHOD 11/10/2024 8:44 AM [facility] Lymphocytes Relative 14.8 % LAB HEMETOLOGY METHOD 11/10/2024 8:44 AM [facility] Monocytes Relative 9.9 % LAB HEMETOLOGY METHOD 11/10/2024 8:44 AM EST [facility] Eosinophils Relative 1.5 % LAB HEMETOLOGY METHOD 11/10/2024 8:44 AM [facility] Basophils Relative 1.2 % LAB HEMETOLOGY METHOD 11/10/2024 8:44 AM [facility] Immature Granulocytes Relative 0.5 % LAB HEMETOLOGY METHOD 11/10/2024 8:44 AM EST [facility] Neutrophils Absolute 4.29 1.50 - 7.00 K/mcL LAB HEMETOLOGY METHOD 11/10/2024 8:44 AM [facility] Lymphocytes Absolute 0.88(L) 1.00 - 5.00 K/mcL LAB HEMETOLOGY METHOD 11/10/2024 8:44 AM [facility] Monocytes Absolute 0.59 0.20 - 1.00 K/mcL LAB HEMETOLOGY METHOD 11/10/2024 8:44 AM [facility] Eosinophils Absolute 0.09 0.00 - 0.50 K/mcL LAB HEMETOLOGY METHOD 11/10/2024 8:44 AM [facility] Basophils Absolute 0.07 0.00 - 0.20 K/mcL LAB HEMETOLOGY METHOD 11/10/2024 8:44 AM [facility] Immature Granulocytes Absolute 0.03 0.00 - 0.03 K/mcL LAB HEMETOLOGY METHOD 11/10/2024 8:44 AM [facility] Blood Venous blood specimen / Unknown Venipuncture / Unknown 11/10/2024 6:06 AM EST 11/10/2024 8:03 AM EST us Gloria Preston MD LAB BLOOD ORDERABLES Final Resu lt [facility] [address] [place] [address], [place] [phone] * Magnesium (11/10/2024 6:06 AM EST) Pathologist [facility] Magnesium 2.0 1.9 - 2.6 mg/dL LAB CHEMISTRY METHOD 11/10/2024 9:04 AM [facility] Blood Venous blood specimen / Unknown Venipuncture / Unknown 11/10/2024 6:06 AM EST 11/10/2024 8:03 AM EST us Gloria Preston MD LAB BLOOD ORDERABLES Final Resu lt [facility] [address] [place] [address], [place] [phone] * (ABNORMAL) Basic metabolic panel (11/10/2024 6:06 AM EST) Pathologist [facility] Sodium 136 133 - 145 mmol/L LAB CHEMISTRY METHOD 11/10/2024 9:04 AM [facility] Potassium 4.3 3.5 - 5.5 mmol/L LAB CHEMISTRY METHOD 11/10/2024 9:04 AM [facility] Chloride 103 96 - 110 mmol/L LAB CHEMISTRY METHOD 11/10/2024 9:04 AM [facility] CO2 25 21 - 32 mmol/L LAB CHEMISTRY METHOD 11/10/2024 9:04 AM [facility] Anion Gap 8 3 - 11 LAB CHEMISTRY METHOD 11/10/2024 9:04 AM [facility] LAB Glucose 94 70 - 100 mg/dL LAB CHEMISTRY METHOD 11/10/2024 9:04 AM [facility] BUN 22 5 - 25 mg/dL LAB CHEMISTRY METHOD 11/10/2024 9:04 AM [facility] Creatinine 0.54(L) 0.70 - 1.30 mg/dL LAB CHEMISTRY METHOD 11/10/2024 9:04 AM EST [facility] eGFR 98 >=60 mL/min/1. 73m2 LAB CHEMISTRY METHOD 11/10/2024 9:04 AM EST [facility] Comment:Calculation based on the Chronic Kidney Disease Epidemiology Collaboration (CKD-EPI) equation refit without adjustment for race. BUN/Creatinine Ratio 40.7 LAB CHEMISTRY METHOD 11/10/2024 9:04 AM [facility] Calcium 9.1 8.5 - 10.5 mg/dL LAB CHEMISTRY METHOD 11/10/2024 9:04 AM [facility] Blood Venous blood specimen / Unknown Venipuncture / Unknown 11/10/2024 6:06 AM EST 11/10/2024 8:03 AM EST us Gloria Preston MD LAB BLOOD ORDERABLES Final Resu lt [facility] [address] [place] [address], documented in this encounter Visit Diagnoses Diagnosis Encounter for other general examination documented in this encounter Care Teams Chief Executive Or Managing Director Relationship Specialty Start Date End Date Gloria Preston MD [address] [place] [phone] PCP - General Hospitalist Medicine 11/05/24 documented as of this encounter
--- OUTSIDE RECORDS SUMMARY | 2025-05-30 11:11 | XMS_ITS | Patient Health Record ---
Author Organization Robbie Kothari III, MD Address [address] [place] [address] Care Team Providers Care Home Health Aide Caregiver Name Role Phone Robbie Kothari Primary Care Provider Allergies Allergen (clinical drug ingredient) Drug/Non Drug Allergy documented on EMR Reaction Allergy Type Onset Date Status No Known Drug Allergy Unknown Drug Allergy Active No Known Food Allergy Unknown Drug Allergy Active Results Component Value Reference Range Notes Hold Lt Blue - Possible Coag Reviewed date:10/30/2024 09:55:19 AM Interpretation: Performing Lab:[facility], [address] [place] [phone] Notes/Report: Hold Lt Blue - Possible Coag SEE NOTE Specimen will be held untested for 4 hours. Call Hematology if testing is desired. Comprehensive Met. Panel Reviewed date:10/30/2024 09:55:19 AM Interpretation: Performing Lab:[facility], [address] [place] [phone] Notes/Report: Sodium 131 135-145 mmol/L Potassium 4.2 [...] Magnesium Reviewed date:10/30/2024 09:55:19 AM Interpretation: Performing Lab:[address] [address] Notes/Report: Magnesium 1.5 1.6-2.6 mg/dL Troponin-I High Sensitivity Reviewed date:10/30/2024 09:55:19 AM Interpretation: Performing Lab:[facility], [address] [place] [phone] Notes/Report: Troponin-I High Sensitivity 3.1 <3.5-35.0 ng/L The [place] high sensitivity Troponin-I results should be used in conjunction with other diagnostic information such as ECG, clinical observations and information, and patient symptoms to aid in the diagnosis of NC. SARS-CoV2/FLU/RSV Reviewed date:10/30/2024 09:55:19 AM Interpretation: Performing Lab:[address] [address] Notes/Report: Influenza A PCR NEGATIVE Negative Influenza [...] by authorized laboratories. Testing performed on the [employer] LogicXpert utilizing real-time RT-PCR. All SARS CoV2 and positive influenza A/B results are reported to [facility]. CT head for stroke Reviewed date:10/30/2024 09:55:19 AM Interpretation: Performing Lab: Notes/Report: [address] [address] [address] Scan Report Signed Patient: Freeman King MR#: [id number] [birth year] : 1940 Acct:[id number] Age/Sex: 84 / M ADM Date: 10/27/24 Loc: HO.ED Attending Dr: Ordering Physician: Alejandrina Mazariegos Date of Service: 10/27/24 Procedure(s): CT head for STROKE Accession Number(s): [id number] cc: Robbie Kothari MD; Alejandrina Mazariegos Report Number: [id number]: Total DLP = 799.00 mGy-cm EXAMINATION: CT [...] lobe. There is resultant mass effect and syuz-xe-ydwgj midline shift of 3 mm. There is [...] atrium. 3. There is 3 mm of sqrl-pq-hgeos midline shift. No impending herniation at this time. This critical result was discussed with Alejandrina Mazariegos at 12:11 PM, on 10/27/2024 via phone call. Electronically signed by: Zohaib Brown MD 10/27/2024 12:14 PM [facility]ict[place] By: Zohaib Brown MD Signed By: <Electronically signed by Zohaib Brown MD in OV> 10/27/24 1214 DD/ 1148 TD/TT: 10/27/24 1156 Grants Manager: [place] [address] [address] Scan Report Signed Patient: Jeremiah King MR#: [id number] [birth year] : 1940 Acct:[id number] Age/Sex: 84 / M ADM Date: 10/27/24 Loc: HO.ED Attending Dr: Ordering Physician: Alejandrina Mazariegos Date of Service: 10/27/24 Procedure(s): CT hea d for STROKE Accession Number(s): [id number] cc: Robbie Kothari MD; Alejandrina Mazariegos Report [...] There is resultant m ass effect and deri-rk-hnwxl midline shift of 3 mm. There is [...] atrium. 3. There is 3 mm of ackc-dv-stcoa midline shift. No impending herniation at this time. This critical result was discussed with Alejandrina Mazariegos at 12:11 PM, on 10/27/2024 via phone call. Electronically gurpreet d by: Zohaib Brown MD 10/27/2024 12:14 PM [facility] Dictated By: Zohaib Brown MD Signed By: <Electronically signed by Zohaib Brown MD in OV> 10/27/24 1214 DD/ 1148 TD/TT: 10/27/24 1156 Grants Manager: CT cervical spine wo con Reviewed date:10/30/2024 09:55:19 AM Interpretation: Performing Lab: Notes/Report: [address] [address] [address] Scan Report Signed Patient: Freeman King MR#: [id number] [birth year] : 1940 Acct:[id number] Age/Sex: 84 / M ADM Date: 10/27/24 Loc: HO.ED Attending Dr: Ordering Physician: Alejandrina Mazariegos Date of Service: 10/27/24 Procedure(s): CT cervical spine wo IV con Accession Number(s): [id number] cc: Robbie Kothari MD; Alejandrina Mazariegos Report Number: [id number]: Total DLP = 376.00 mGy-cm EXAMINATION: CT [...] by: Zohaib Brown MD 10/27/2024 02:23 PM [facility] Dictated By: Zohaib Brown MD Signed By: <Electronically signed by Zohaib Brown MD in OV> 10/27/24 1423 DD/ 1212 TD/TT: 10/27/24 1334 Grants Manager: [place] [address] [address] Scan Report Signed Patient: Jeremiah King MR#: [id number] [birth year] : 1940 Acct:[id number] Age/Sex: 84 / M ADM Date: 10/27/24 Loc: .ED Attending Dr: Ordering Physician: Alejandrina Mazariegos Date of Service: 10/27/24 Procedure(s): CT cer vical spine wo IV con Accession Number(s): [id number] cc: Robbie Kothrai MD; Alejandrina Mazariegos Report Number: [id number]: [...] by: Zohaib Brown MD 10/27/2024 02:23 PM [facility] Dictated By: Zohaib Brown MD Signed By: <Electronically signed by Zohaib Brown MD in OV> 10/27/24 1423 DD/ 1212 TD/TT: 10/27/24 1334 Grants Manager: XR chest 1V Reviewed date:10/30/2024 09:55:19 AM Interpretation: Performing Lab: Notes/Report: [address] [address] XRay Report Signed Patient: Freeman King MR#: [id number] [birth year] : 1940 Acct:[id number] Age/Sex: 84 / M ADM Date: 10/27/24 Loc: HO.ED Attending Dr: Ordering Physician: Alejandrina Mazariegos Date of Service: 10/27/24 Procedure(s): XR chest 1V Accession Number(s): [id number] cc: Robbie Kothari MD; Alejandrina Mazariegos EXAMINATION: [...] by: Zohaib Brown MD 10/27/2024 01:41 PM [facility] Dictated By: Zohaib Brown MD Signed By: <Electronically signed by Zohaib Brown MD in OV> 10/27/24 1341 DD/ 1127 TD/TT: 10/27/24 1328 Grants Manager: [address] [address] XRay Report Signed Patient: Jeremiah King MR#: [id number] [birth year] : 1940 Acct:[id number] Age/Sex: 84 / M ADM Date: 10/27/24 Loc: HO.ED Attending Dr: Ordering Physician: Alejandrina Mazariegos Date of Service: 10/27/24 Procedure(s): XR chest 1V Accession Number(s): [id number] cc: Robbie Kothari MD; Alejandrina Mazariegos EXAMINATION: [...] by: Zohaib Brown MD 10/27/2024 01:41 PM [facility] Dictated By: Zohaib Brown MD Signed By: <Electronically signed by Zohaib Brown MD in OV> 10/27/24 1341 DD/ 1127 TD/TT: 10/27/24 1328 Grants Manager: XR chest 2V Reviewed date:12/16/2024 03:30:40 PM Interpretation: Performing Lab: Notes/Report: [address] [address] XRay Report Signed Patient: Freeman King MR#: [id number] [birth year] : 1940 Acct:[id number] Age/Sex: 84 / M ADM Date: 12/02/24 Loc: HO.XRAY Attending Dr: Robbie Kothari MD Ordering Physician: Denilson Minor MD Date of Service: 12/02/24 Procedure(s): XR chest 2V Accession Number(s): [id number] cc: Robbie Kothari MD; Denilson Minor MD [...] 12/02/24 1150 DD/ 1042 TD/TT: 12/02/24 1052 Grants Manager: [place] [address] XRay Report Signed Patient: Jeremiah King MR#: [id number] [birth year] : 1940 Acct:[id number] Age/Sex: 84 / M ADM Date: 12/02/24 Loc: JILLIAN Attending Dr: Robbie Kothari MD Ordering Physician: Denilson Minor MD Date of Service: 12/02/24 Procedure(s): XR chest 2V Accession Number(s): [id number] cc: Robbie Kothari MD; Denilson Minor MD [...] 12/02/24 1150 DD/ 1042 TD/TT: 12/02/24 1052 Grants Manager: Complete Blood Count Auto Di ff Reviewed date:12/16/2024 03:30:40 PM Interpretation: Performing Lab:[facility], [address] [place] [phone] Notes/Report: White Blood Count 5.2 4.8-10.8 X10*3/uL [...] Panel Reviewed date:12/16/2024 03:30:40 PM Interpretation: Performing Lab:[address] [address] Notes/Report: Sodium 136 135-145 mmol/L Potassium 3.9 [...] Magnesium Reviewed date:12/16/2024 03:30:40 PM Interpretation: Performing Lab:[facility], [address] [place] [phone] Notes/Report: Magnesium 1.8 1.6-2.6 mg/dL XR chest 2V Reviewed date:12/16/2024 03:30:40 PM Interpretation: Performing Lab: Notes/Report: [address] [address] XRay Report Signed Patient: Freeman King MR#: [id number] [birth year] : 1940 Acct:[id number] Age/Sex: 84 / M ADM Date: 12/16/24 Loc: JILLIAN Attending Dr: Denilson Minor MD Ordering Physician: Denilson Mionr MD Date of Service: 12/16/24 Procedure(s): XR chest 2V Accession Number(s): [id number] cc: Robbie Kothari MD; Denilson Minor MD [...] 12/16/24 1138 DD/ 1048 TD/TT: 12/16/24 1110 Grants Manager: [place] [address] XRay Report Signed Patient: Jeremiah King MR#: [id number] [birth year] : 1940 Acct:[id number] Age/Sex: 84 / M ADM Date: 12/16/24 Loc: .XRAY Attending Dr: Denilson Minor MD Ordering Physician: Denilson Minor MD Date of Service: 12/16/24 Procedure(s): XR chest 2V Accession Number(s): [id number] cc: Robbie Kothari MD; Denilson Minor MD [...] 12/16/24 1138 DD/ 1048 TD/TT: 12/16/24 1110 Grants Manager: Complete Blood Count Auto Di ff Reviewed date:12/30/2024 08:37:25 PM Interpretation: Performing Lab:[facility], [address] [place] [phone] Notes/Report: White Blood Count 6.5 4.8-10.8 X10*3/uL [...] NRBC Abs Auto 0.000 0.0-0.012 X10*3/uL Comprehensive [place]. Panel Fa Reviewed date:12/30/2024 08:37:25 PM Interpretation: Performing Lab:[facility], [address] [place] [phone] Notes/Report: Sodium 135 135-145 mmol/L Potassium 4.2 [...] Panel Reviewed date:12/30/2024 08:37:25 PM Interpretation: Performing Lab:[facility], [address] [place] [phone] Notes/Report: Triglycerides 84 <150 mg/dL Desirable Triglyceride: [...] Antigen Reviewed date:12/30/2024 08:37:25 PM Interpretation: Performing Lab:[facility], [address] [place] [phone] Notes/Report: Prostate Specific Antigen 2.95 <0.05-4.0 ng/mL PSA methodology: Duran Alinity i Chemiluminescent Microparticle Immunoassay (CMIA) Complete Blood Count Auto Di ff Reviewed date:12/30/2024 08:37:25 PM Interpretation: Performing Lab:[facility], [address] [place] [phone] Notes/Report: White Blood Count 9.1 4.8-10.8 X10*3/uL [...] te Reviewed date:12/30/2024 08:37:25 PM Interpretation: Performing Lab:[facility], [address] [place] [phone] Notes/Report: Erythrocyte Sedimentation Rate 60 0-15 MM/HR Patients with polycythemia and many hemoglobin abnormalities may have depressed sed rates whereas patients with anemia may have elevated sed rates. Partial Thromboplastin Time Reviewed date:12/30/2024 08:37:25 PM Interpretation: Performing Lab:[facility], [address] [place] [phone] Notes/Report: Partial Thromboplastin Time 33.0 26.0-36.8 SEC For information regarding the monitoring of direct thrombin inhibitors, please refer to Pharmacy. Comprehensive Met. Panel Reviewed date:12/30/2024 08:37:25 PM Interpretation: Performing Lab:[facility], [address] [place] [phone] Notes/Report: Sodium 132 135-145 mmol/L Potassium 4.9 [...] Acid Reviewed date:12/30/2024 08:37:25 PM Interpretation: Performing Lab:[facility], [address] [place] [phone] Notes/Report: Lactic Acid 1.0 0.5-2.0 mmol/L Uric Acid Reviewed date:12/30/2024 08:37:25 PM Interpretation: Performing Lab:[facility], [address] [place] [phone] Notes/Report: Uric Acid 4.1 3.4-7.0 mg/dL Magnesium Reviewed date:12/30/2024 08:37:25 PM Interpretation: Performing Lab:[facility], [address] [place] [phone] Notes/Report: Magnesium 1.7 1.6-2.6 mg/dL Troponin-I High Sensitivity Reviewed date:12/30/2024 08:37:25 PM Interpretation: Performing Lab:[facility], [address] [place] [phone] Notes/Report: Troponin-I High Sensitivity 3.4 <3.5-35.0 ng/L The Duran high sensitivity Troponin-I results should be used in conjunction with other diagnostic information such as ECG, clinical observations and information, and patient symptoms to aid in the diagnosis of NC. C Reactive Protein Reviewed date:12/30/2024 08:37:25 PM Interpretation: Performing Lab:[facility], [address] [place] [phone] Notes/Report: C Reactive Protein 4.85 < or = 0.50 mg/dL B Type Natriuretic Peptide Reviewed date:12/30/2024 08:37:25 PM Interpretation: Performing Lab:[facility], [address] [place] [phone] Notes/Report: B Type Natriuretic Peptide 82 <100 pg/mL Lipase Reviewed date:12/30/2024 08:37:25 PM Interpretation: Performing Lab:[facility], [address] [place] [phone] Notes/Report: Lipase 43 8-78 U/L UA CC w/rflx Micro + Cult Reviewed date:12/30/2024 08:37:25 PM Interpretation: Performing Lab:[facility], [address] [place] [phone] Notes/Report: Urine, Clean Catch Color Urine Yellow Appearance Urine Clear PH 7.5 5.0-9.0 Glucose Urine UA Negative Negative mg/dL Urine Blood Negative Negative Specific [place] - Urine >= 1.030 1.005-1.025 Urine Protein Negative Neg-Trace mg/dL Urine Ketones Negative Negative mg/dL Nitrite Urine Negative Negative Leukocyte Esterase Urine Negative Negative SARS-CoV2/FLU/RSV Reviewed date:12/30/2024 08:37:25 PM Interpretation: Performing Lab:[address] [phone] Notes/Report: Influenza A PCR NEGATIVE Negative Influenza [...] by authorized laboratories. Testing performed on the [employer] GeneXpert utilizing real-time RT-PCR. All SARS CoV2 and positive influenza A/B results are reported to [facility]. Blood Culture (First) Reviewed date:01/14/2025 08:40:47 PM Interpretation: Performing Lab:[facility], [address] [place] [phone] Notes/Report: Blood Culture (First) No growth after 5 days. Blood Culture (Second) Reviewed date:01/14/2025 08:40:47 PM Interpretation: Performing Lab:[address] [address] Notes/Report: Blood Culture (Second) No growth after [address] angio head neck Reviewed date:12/30/2024 08:37:25 PM Interpretation: Performing Lab: Notes/Report: [address] [address] [address] Scan Report Signed Patient: Freeman King MR#: [id number] [birth year] : 1940 Acct:[id number] Age/Sex: 84 / M ADM Date: 12/30/24 Loc: HO.ED Attending Dr: Ordering Physician: Rahul Zamora MD Date of Service: 12/30/24 Procedure(s): CT angio head neck Accession Number(s): [id number] cc: Robbie Kothari MD; Rahul Zamora MD Report Number: [id number]: Total DLP = 1652.00 mGy-cm EXAMINATION: CTA [...] intimal flap. Superior cerebellar arteries are patent. milk pasteurizer: Right P1 segment: Hypoplastic/atretic. No focal stenosis. [...] 12/30/24 1225 DD/ 1133 TD/TT: 12/30/24 1155 Grants Manager: [address] [address] [address] Scan Report Signed Patient: Jeremiah King MR#: [id number] [birth year] : 1940 Acct:[id number] Age/Sex: 84 / M ADM Date: 12/30/24 Loc: HO.ED Attending Dr: Ordering Physician: Rahul Zamora MD Date of Service: 12/30/24 Procedure(s): CT ang io head neck Accession Number(s): [id number] cc: Robbie Kothari MD; Rahul Zamora MD [...] intimal flap. Superior cerebellar arteries are patent. milk pasteurizer: Right P1 segment: Hypoplastic/atretic. No focal stenosis. [...] 12/30/24 1225 DD/ 1133 TD/TT: 12/30/24 1155 Grants Manager: XR wrist RT 2V Reviewed date:12/30/2024 08:37:25 PM Interpretation: Performing Lab: Notes/Report: [address] [address] XRay Report Signed Patient: Freeman King MR#: [id number] [birth year] : 1940 Acct:[id number] Age/Sex: 84 / M ADM Date: 12/30/24 Loc: HO.ED Attending Dr: Ordering Physician: Rahul Zamora MD Date of Service: 12/30/24 Procedure(s): XR wrist RT 2V Accession Number(s): [id number] cc: Robbie Kothari MD; Rahul Zamora MD [...] 12/30/24 1300 DD/ 1243 TD/TT: 12/30/24 1255 Grants Manager: [address] [address] XRay Report Signed Patient: Jeremiah King MR#: [id number] [birth year] : 1940 Acct:[id number] Age/Sex: 84 / M ADM Date: 12/30/24 Loc: HO.ED Attending Dr: Ordering Physician: Rahul Zamora MD Date of Service: 12/30/24 Procedure(s): XR wri st RT 2V Accession Number(s): [id number] cc: Robbie Kothari MD; Rahul Zamora MD [...] 12/30/24 1300 DD/ 1243 TD/TT: 12/30/24 1255 Grants Manager: XR chest 1V Reviewed date:12/30/2024 08:37:25 PM Interpretation: Performing Lab: Notes/Report: [address] [address] XRay Report Signed Patient: Freeman King MR#: [id number] [birth year] : 1940 Acct:[id number] Age/Sex: 84 / M ADM Date: 12/30/24 Loc: .ED Attending Dr: Ordering Physician: Rahul Zamora MD Date of Service: 12/30/24 Procedure(s): XR chest 1V Accession Number(s): [id number] cc: Robbie Kothari MD; Rahul Zamora MD [...] 12/30/24 1210 DD/ 1031 TD/TT: 12/30/24 1149 Grants Manager: [place] [address] XRay Report Signed Patient: Jeremiah King MR#: [id number] [birth year] : 1940 Acct:[id number] Age/Sex: 84 / M ADM Date: 12/30/24 Loc: .ED Attending Dr: Ordering Physician: Rahul Zamora MD Date of Service: 12/30/24 Procedure(s): XR chest 1V Accession Number(s): [id number] cc: Robbie Kothari MD; Rahul Zamora MD [...] 12/30/24 1210 DD/ 1031 TD/TT: 12/30/24 1149 Grants Manager: XR hand RT min 3V Reviewed date:12/30/2024 08:37:25 PM Interpretation: Performing Lab: Notes/Report: [address] [address] XRay Report Signed Patient: Freeman King MR#: [id number] [birth year] : 1940 Acct:[id number] Age/Sex: 84 / M ADM Date: 12/30/24 Loc: HO.ED Attending Dr: Ordering Physician: Rahul Zamora MD Date of Service: 12/30/24 Procedure(s): XR hand RT min 3V Accession Number(s): [id number] cc: Robbie Kothari MD; Rahul Zamora MD [...] 12/30/24 1301 DD/ 1243 TD/TT: 12/30/24 1255 Grants Manager: [address] [address] XRay Report Signed Patient: Jeremiah King MR#: [id number] [birth year] : 1940 Acct:[id number] Age/Sex: 84 / M ADM Date: 12/30/24 Loc: HO.ED Attending Dr: Ordering Physician: Rahul Zamora MD Date of Service: 12/30/24 Procedure(s): XR camacho d RT min 3V Accession Number(s): [id number] cc: Robbie Kothari MD; Rahul Zamora MD [...] 12/30/24 1301 DD/ 1243 TD/TT: 12/30/24 1255 Grants Manager: Renae Coates Hematolo gy Reviewed date:01/01/2025 10:45:53 AM Interpretation: Performing Lab:[facility], [address] [place] [phone] Notes/Report: Hold Lav - Possible Hematology SEE NOTE Specimen will be held untested for 8 hours. Call Hematology if testing is desired. Basic Metabolic Panel Reviewed date:01/01/2025 10:45:53 AM Interpretation: Performing Lab:[facility], [address] [place] [phone] Notes/Report: Sodium 135 135-145 mmol/L Potassium 4.2 [...] ff Reviewed date:01/14/2025 08:40:47 PM Interpretation: Performing Lab:[facility], [address] [place] [phone] Notes/Report: White Blood Count 7.5 4.8-10.8 X10*3/uL [...] Coag Reviewed date:01/14/2025 08:40:47 PM Interpretation: Performing Lab:[facility], [address] [place] [phone] Notes/Report: Hold Lt Blue - Possible Coag SEE NOTE Specimen will be held untested for 4 hours. Call Hematology if testing is desired. Liver Panel Reviewed date:01/14/2025 08:40:47 PM Interpretation: Performing Lab:[facility], [address] [place] [phone] Notes/Report: Bilirubin Total 1.0 0.0-1.0 mg/dL Bilirubin Direct 0.3 0.0-0.5 mg/dL Aspartate Amino Transferase 28 5-37 U/L Slight Hemolysis.Interpret result with caution. Alanine Aminotransferase 12 0-40 U/L Total Protein 7.4 6.5-8.0 g/dL Albumin Level 3.6 3.5-5.0 g/dL Alkaline Phosphatase 70 39-117 U/L Basic Metabolic Panel Reviewed date:01/14/2025 08:40:47 PM Interpretation: Performing Lab:[facility], [address] [place] [phone] Notes/Report: Sodium 130 135-145 mmol/L Potassium 4.4 [...] Acid Reviewed date:01/14/2025 08:40:47 PM Interpretation: Performing Lab:[facility], [address] [place] [address] Notes/Report: Lactic Acid 0.8 0.5-2.0 mmol/L Magnesium Reviewed date:01/14/2025 08:40:47 PM Interpretation: Performing Lab:[address] [address] Notes/Report: Magnesium 1.8 1.6-2.6 mg/dL Troponin-I High Sensitivity Reviewed date:01/14/2025 08:40:47 PM Interpretation: Performing Lab:[address] [address] Notes/Report: Troponin-I High Sensitivity 3.3 <3.5-35.0 ng/L The [place] high sensitivity Troponin-I results should be used in conjunction with other diagnostic information such as ECG, clinical observations and information, and patient symptoms to aid in the diagnosis of NC. C Reactive Protein Reviewed date:01/14/2025 08:40:47 PM Interpretation: Performing Lab:[address] [address] Notes/Report: C Reactive Protein 13.61 < or = 0.50 mg/dL B Type Natriuretic Peptide Reviewed date:01/14/2025 08:40:47 PM Interpretation: Performing Lab:[facility], [address] [place] [phone] Notes/Report: B Type Natriuretic Peptide 53 <100 pg/mL Procalcitonin Reviewed date:01/14/2025 08:40:47 PM Interpretation: Performing Lab:[facility], [address] [place] [phone] Notes/Report: Procalcitonin 0.04 Procalcitonin (PCT) Reference Range: [...] results from different laboratories and methodologies. References: [employer]/Society of Critical Care [...] 510(k) substantial equivalence determination decision summary for [facility]. http://www.accessda ta.fda.fov/cdrh_doc s/reviews/T088171.p df. Published September 2004. Accessed February 2017. Gram stain Reviewed date:01/17/2025 05:36:47 AM Interpretation: Performing Lab:[facility], [address] [place] [address] Notes/Report: Gram stain Gram stain results: Gram stain 4+ polys Gram stain 1+ epithelial cells Gram stain 4+ red blood cells Gram stain 1+ Gram-positive cocci UA CC w/rflx Micro + Cult Reviewed date:01/14/2025 08:40:47 PM Interpretation: Performing Lab:[address] [address] Notes/Report: Urine, Catheterized Color Urine Yellow Appearance Urine Clear PH 6.0 5.0-9.0 Glucose Urine UA Negative Negative mg/dL Urine Blood Negative Negative Specific [place] - Urine 1.020 1.005-1.025 Urine Protein Negative Neg-Trace mg/dL Urine Ketones Negative Negative mg/dL Nitrite Urine Negative Negative Leukocyte Esterase Urine Negative Negative SARS-CoV2/FLU/RSV Reviewed date:01/14/2025 08:40:47 PM Interpretation: Performing Lab:[address] [address] Notes/Report: Influenza A PCR NEGATIVE Negative Influenza [...] by authorized laboratories. Testing performed on the [employer] GeneXpert utilizing real-time RT-PCR. All SARS CoV2 and positive influenza A/B results are reported to [facility]. Blood Culture (First) Reviewed date:02/12/2025 08:15:10 PM Interpretation: Performing Lab:[facility], [address] [place] [phone] Notes/Report: Blood Culture (First) No growth after 5 days. Blood Culture (Second) Reviewed date:02/12/2025 08:15:10 PM Interpretation: Performing Lab:[address] [address] Notes/Report: Blood Culture (Second) No growth after 5 days. Sputum Culture Reviewed date:01/17/2025 05:36:47 AM Interpretation: Performing Lab:[facility], [address] [place] [phone] Notes/Report: Sputum Culture BAP Sputum Culture 2+ Mixed respiratory ramon. CT chest wo con Reviewed date:01/14/2025 08:40:47 PM Interpretation: Performing Lab: Notes/Report: [address] [address] [address] Scan Report Signed Patient: Freeman King MR#: [id number] [birth year] : 1940 Acct:[id number] Age/Sex: 84 / M ADM Date: 01/13/25 Loc: .S3 358-[address]: Tommy Rodriguez MD Ordering Physician: Linette Brown Date of Service: 01/13/25 Procedure(s): CT chest wo IV con Accession Number(s): [id number] cc: Linette Brown; Robbie Kothari MD Report Number: [id number]: Total DLP = 336.00 mGy-cm CLINICAL HISTORY: Pt with hemoptysis, ?RUL and LLL pneumonia CT chest without contrast Comparison: CT/REG/MO/SR - CT CHEST WO IV CON - [...] OV> 01/13/25 174 DD/ 45 TD/TT: 01/13/251745 Grants Manager: [address] [address] [address] Scan Report Signed Patient: Jeremiah King MR#: [id number] [birth year] : 1940 Acct:[id number] Age/Sex: 84 / M ADM Date: 01/13/25 Loc: HO.S3 358-[address]: Tommy Rodriguez MD Ordering Physician: Linette Brown Date of Service: 01/13/25 Procedure(s): CT [address] wo IV con Accession Number(s): [id number] cc: Lintete Brown; Robbie Kothari MD Report Number: [id number] [...] OV> 01/13/251746 DD/ 1746 TD/TT: 01/13/25 174 Grants Manager: CT head/brain wo con Reviewed date:01/14/2025 08:40:47 PM Interpretation: Performing Lab: Notes/Report: [address] [address] [address] Scan Report Signed Patient: Freeman King MR#: [id number] 30 : 1940 Acct:[id number] Age/Sex: 84 / M ADM Date: 01/13/25 Loc: HO.ED Attending Dr: Ordering Physician: Taras Spencer MD Date of Service: 01/13/25 Procedure(s): CT head/brain wo IV con Accession Number(s): [id number] cc: Robbie Kothari MD; Taras Spencer MD Report Number: [id number]: Total DLP = 726.00 mGy-cm EXAMINATION: CT [...] 01/13/25 1235 DD/ 1215 TD/TT: 01/13/25 1226 Grants Manager: [address] [address] [address] Scan Report Signed Patient: Jeremiah King MR#: [id number] [birth year] : 1940 Acct:[id number] Age/Sex: 84 / M ADM Date: 01/13/25 Loc: HO.ED Attending Dr: Ordering Physician: Taras Spencer MD Date of Service: 01/13/25 Procedure(s): CT head/brain wo IV con Accession Number(s): [id number] cc: Robbie Kothari MD; Taras Spencer MD [...] 01/13/25 1235 DD/ 1215 TD/TT: 01/13/25 1226 Grants Manager: XR chest 1V Reviewed date:01/14/2025 08:40:47 PM Interpretation: Performing Lab: Notes/Report: [address] [address] XRay Report Signed Patient: Freeman King MR#: [id number] 30 : 1940 Acct:[id number] Age/Sex: 84 / M ADM Date: 01/13/25 Loc: HO.ED Attending Dr: Ordering Physician: Taras Spencer MD Date of Service: 01/13/25 Procedure(s): XR chest 1V Accession Number(s): [id number] cc: Robbie Kothari MD; Taras Spencer MD [...] 01/13/25 1228 DD/ 1222 TD/TT: 01/13/25 1222 Grants Manager: [address] [address] XRay Report Signed Patient: Jeremiah King MR#: [id number] [birth year] : 1940 Acct:[id number] Age/Sex: 84 / M ADM Date: 01/13/25 Loc: HO.ED Attending Dr: Ordering Physician: Taras Spencer MD Date of Service: 01/13/25 Procedure(s): XR chest 1V Accession Number(s): [id number] cc: Robbie Kothari MD; Taras Spencer MD [...] 01/13/25 1228 DD/ 1222 TD/TT: 01/13/25 1222 Grants Manager: Hold Lav - Possible Hematolo gy Reviewed date:01/14/2025 08:40:46 PM Interpretation: Performing Lab:[facility], [address] [place] [address] Notes/Report: Hold Lav - Possible Hematology SEE NOTE Specimen will be held untested for 8 hours. Call Hematology if testing is desired. Basic Metabolic Panel Reviewed date:01/14/2025 08:40:47 PM Interpretation: Performing Lab:[facility], [address] [place] [address] Notes/Report: Sodium 130 135-145 mmol/L Potassium 4.0 [...] Urine Reviewed date:01/14/2025 08:40:47 PM Interpretation: Performing Lab:[address] [address] Notes/Report: Osmolality Urine [phone] mosm/kg Sodium Urine Random Reviewed date:01/14/2025 08:40:47 PM Interpretation: Performing Lab:[address] [address] Notes/Report: Sodium Urine Random 93.0 Vancomycin Random Reviewed date:01/14/2025 08:40:47 PM Interpretation: Performing Lab:[address] [address] Notes/Report: Vancomycin Random 9.3 15-20 mcg/mL Complete Blood Count Auto Di ff Reviewed date:01/15/2025 06:45:37 AM Interpretation: Performing Lab:[address] [address] Notes/Report: White Blood Count 5.0 4.8-10.8 X10*3/uL [...] Hematocrit Reviewed date:01/17/2025 05:36:47 AM Interpretation: Performing Lab:[address] [address] Notes/Report: Hemoglobin 11.9 14.0-18.0 g/dl Hematocrit 33.2 42.0-52.0 % Basic Metabolic Panel Reviewed date:01/15/2025 06:45:37 AM Interpretation: Performing Lab:[address] [address] Notes/Report: Sodium 135 135-145 mmol/L Potassium 3.8 [...] gy Reviewed date:01/17/2025 05:36:47 AM Interpretation: Performing Lab:[address] [address] Notes/Report: Hold Lav - Possible Hematology SEE NOTE Specimen will be held untested for 8 hours. Call Hematology if testing is desired. Creatinine Reviewed date:01/17/2025 05:36:47 AM Interpretation: Performing Lab:[facility], [address] [place] [address] Notes/Report: Creatinine 0.77 0.5-1.4 mg/dL Creatinine Clr [...] ff Reviewed date:02/26/2025 07:54:27 AM Interpretation: Performing Lab:[address] [address] Notes/Report: White Blood Count 6.6 4.8-10.8 X10*3/uL [...] NRBC Abs Auto 0.000 0.0-0.012 X10*3/uL Comprehensive [place]. Panel Fa st Reviewed date:02/26/2025 07:54:27 AM Interpretation: Performing Lab:[facility], [address] [place] [address] Notes/Report: Sodium 135 135-145 mmol/L Potassium 4.3 [...] Panel Reviewed date:02/26/2025 07:54:27 AM Interpretation: Performing Lab:[facility], [address] [place] [address] Notes/Report: Triglycerides 58 <150 mg/dL Desirable Triglyceride: [...] date:02/26/2025 07:54:27 AM Interpretation: Performing Lab: Notes/Report: [address] [address] XRay Report Signed Patient: Fereman King MR#: [id number] [birth year] : 1940 Acct:[id number] Age/Sex: 85 / M ADM Date: 02/23/25 Loc: HO.KIRTIAY Attending Dr: Denilson Minor MD Ordering Physician: Denilson Minor MD Date of Service: 02/23/25 Procedure(s): XR chest 2V Accession Number(s): [id number] cc: Robbie Kothari MD; Denilson Minor MD [...] OV> 02/23/25 0853 DD/ 6 TD/TT: 02/23/25835 Grants Manager: [place] [address] XRay Report Signed Patient: Jeremiah King MR#: [id number] [birth year] : 1940 Acct:[id number] Age/Sex: 85 / M ADM Date: 02/23/25 Loc: HO.XRAY Attending Dr: Denilson Minor MD Ordering Physician: Denilson Minor MD Date of Service: 02/23/25 Procedure(s): XR chest 2V Accession Number(s): [id number] cc: Robbie Kothari MD; Denilson Minor MD [...] 02/23/25 0853 DD/ 6 TD/TT: 02/23/25 0836 Grants Manager: XR chest 2V Reviewed date:04/15/2025 07:11:05 PM Interpretation: Performing Lab: Notes/Report: [address] [address] XRay Report Signed Patient: Freeman King MR#: [id number] [birth year] : 1940 Acct:[id number] Age/Sex: 85 / M ADM Date: 04/12/25 Loc: JILLIAN Attending Dr: Denilson Minor MD Ordering Physician: Denilson Minor MD Date of Service: 04/12/25 Procedure(s): XR chest 2V Accession Number(s): [id number] cc: Robbie Kothari MD; Denilson Minor MD [...] 04/12/25 1430 DD/ 1411 TD/TT: 04/12/25 1426 Grants Manager: [address] [address] XRay Report Signed Patient: Jeremiah King MR#: [id number] [birth year] : 1940 Acct:[id number] Age/Sex: 85 / M ADM Date: 04/12/25 Loc: JILLIAN Attending Dr: Denilson Minor MD Ordering Physician: Denilson Minor MD Date of Service: 04/12/25 Procedure(s): XR chest 2V Accession Number(s): [id number] cc: Robbie Kothari MD; Denilson Minor MD [...] 04/12/25 1430 DD/ 1411 TD/TT: 04/12/25 1426 Grants Manager: Complete Blood Count Auto Di ff Reviewed date:04/24/2025 03:36:17 PM Interpretation: Performing Lab:[facility], [address] [place] [address] Notes/Report: White Blood Count 6.0 4.8-10.8 X10*3/uL [...] te Reviewed date:04/24/2025 03:36:17 PM Interpretation: Performing Lab:[address] [address] Notes/Report: Erythrocyte Sedimentation Rate 21 0-15 MM/HR Patients with polycythemia and many hemoglobin abnormalities may have depressed sed rates whereas patients with anemia may have elevated sed rates. Liver Panel Reviewed date:04/24/2025 03:36:17 PM Interpretation: Performing Lab:[address] [address] Notes/Report: Bilirubin Total 0.8 0.0-1.0 mg/dL Bilirubin Direct 0.3 0.0-0.5 mg/dL Aspartate Amino Transferase 25 5-37 U/L Alanine Aminotransferase 13 0-40 U/L Total Protein 7.6 6.5-8.0 g/dL Albumin Level 4.2 3.5-5.0 g/dL Alkaline Phosphatase 84 39-117 U/L Basic Metabolic Panel Reviewed date:04/24/2025 03:36:17 PM Interpretation: Performing Lab:[address] [address] Notes/Report: Sodium 136 135-145 mmol/L Potassium 4.2 [...] date:04/24/2025 03:36:17 PM Interpretation: Performing Lab: Notes/Report: [address] [address] Ultrasound Report Signed Patient: Freeman King MR#: [id number] [birth year] : 1940 Acct:[id number] Age/Sex: 85 / M ADM Date: 04/24/25 Loc: HO.US Attending Dr: Irene MADRID Ordering Physician: Irene Fam Date of Service: 04/24/25 Procedure(s): US retroperitoneal comp Accession Number(s): [id number] cc: Robbie Kothari MD; Irene Fam EXAMINATION: [...] 04/24/25 1049 DD/ 1000 TD/TT: 04/24/25 1030 Grants Manager: [place] [address] Ultrasound Report Signed Patient: Jeremiah King MR#: [id number] [birth year] : 1940 Acct:[id number] Age/Sex: 85 / M ADM Date: 04/24/25 Loc: .US Attending Dr: Irene MADRID Ordering Physician: Irene Fam Date of Service: 04/24/25 Procedure(s): US retroperitoneal comp Accession Number(s): [id number] cc: Robbie Kothari MD; Irene Fam EXAMINATION: [...] 04/24/25 1049 DD/ 1000 TD/TT: 04/24/25 1030 Grants Manager: XR chest 2V Reviewed date:05/29/2025 12:59:13 PM Interpretation: Performing Lab: Notes/Report: [address] [address] XRay Report Signed Patient: Freeman King MR#: [id number] [birth year] : 1940 Acct:[id number] Age/Sex: 85 / M ADM Date: 05/24/25 Loc: JILLIAN Attending Dr: Denilson Minor MD Ordering Physician: Denilson Minor MD Date of Service: 05/24/25 Procedure(s): XR chest 2V Accession Number(s): [id number] cc: Robbie Kothari MD; Denilson Minor MD Reason for Exam: R91.8 - Other nonspecific abnormal finding of lung field EXAMINATION: XR CHEST CLINICAL INFORMATION: R91.8 - Other nonspecific abnormal finding of lung field COMPARISON: April 12, 2025. TECHNIQUE: 2 views of the chest were obtained. FINDINGS: Hyperinflated lungs. Pulmonary reticular nodular pattern with linear opacities in the right upper hemithorax. Bronchiectasis, right upper lung lobe. No pleural effusion or pneumothorax. Cardiomediastinal silhouette size is small. Calcified plaque thoracic aorta with tortuosity. S-shaped curvature of the thoracic spine. Osteopenia versus osteoporosis. XR/XR chest 2V IMPRESSION: COPD emphysematous type changes with bronchiectasis more prominent in the right upper lung lobe. Superimposed inflammatory versus infectious versus neoplasm cannot be excluded. Overall stable since prior exam. Electronically signed by: Lázaro Ely MD 05/24/2025 12:06 PM EDT Dictated By: Lázaro Elias MD Signed By: <Electronically signed by Lázaro Monique MD in OV> 05/24/25 1206 DD/ 1125 TD/TT: 05/24/25 1132 Grants Manager: [place] [address] XRay Report Signed Patient: Jeremiah King MR#: [id number] [birth year] : 1940 Acct:[id number] Age/Sex: 85 / M ADM Date: 05/24/25 Loc: JILLIAN Attending Dr: Denilson Minor MD Ordering Physician: Denilson Minor MD Date of Service: 05/24/25 Procedure(s): XR chest 2V Accession Number(s): [id number] cc: Robbie Kothari MD; Denilson Minor MD Reason for Exam: R91 .8 - Other nonspecific abnormal finding of lung field EXAMINATION: XR CHEST CLINICAL INFORMATION: R91.8 - Other nonspe cific abnormal finding of lung field COMPARISON: April 12, 2025. TECHNIQUE: 2 views of the chest were obtained. FINDINGS: Hyperinflated lungs. Pulmonary reticular nodular pattern with linear opacities in the rig ht upper hemithorax. Bronchiectasis, right upper lung lobe. No pleural effusion or pneumothorax. Cardiomediastinal silhouette size is small. Calcified plaque thoracic aorta with tortuosity. S-shaped curvature o f the thoracic spine. Osteopenia versus osteoporosis. X R/XR chest 2V IMPRESSION: COPD emphysematous t ype changes with bronchiectasis more prominent in the right upper lung lobe. Superimposed inflammatory versus infectious versus neoplasm namrata ot be excluded. Overall stable since prior exam. Electronically gurpreet d by: Lázaro Ely MD 05/24/2025 12:06 PM EDT RP Dictated By: Lázaro Garcia MD Signed By: <Electronically signed by Lázaro Monique MD in OV> 05/24/25 1206 DD/ 1125 TD/TT: 05/24/25 1132 Grants Manager: Reason For Referral Reason Urgent Referral Requ est Evaluate and Treat ? Catheter Can not tolerate tamsulosin Diagnosis 1 Benign prostatic hyp erplasia with lower urinary tract symptoms (N40.1) Diagnosis 2 Nocturia (R35.1) Referral Organization Robbie Kothari III, MD Referring Provider First Name Robbie Referring Provider Last Name Saniya Referring Provider Speciality Internal M edicine Referred Provider [facility] er, Urology Referred Provider Specialty Urology [...] Provider Speciality Internal edicine Referred Organization [facility] Casandra hanson Referred Provider [facility], Core Physical Therapy Referred Address [address] [place] [address],[place], [id number], Referred Provider Specialty Physical The rapist General [...] Saniya Referring Provider Speciality Internal edicine Referred Provider [facility] er, Speech and Hearing Referred Provider [...] has it been since you last smoked? Danyaa ter than 10 years Additional Findings: Tobacco non-user Ex-cigaret te smoker AUDIT-C (Standard) Question Answer Notes Did you have a drink containing alcohol in the p ast year? No Points 0 Interpretation Negative Problems Problem Type SNOMED Code ICD Code Onset Dates Problem Status W/U Status Risk Notes Problem 2528650 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 Problem Hyperlipidemia (50125533) Hyperlipidemia (E78.5) Active confirmed Distal cholesterol is stable but his triglycerides are elevated. He will continue on his current diet until he has fully recovered from the stroke. He will continue on his medications. Problem 79327521 Hyponatremia (E87.1) Active confirmed After admission to [facility] he required hypertonic saline and then 1 g of sodium chloride tablets 3 times a day to restore his potassium to normal. He was discharged without this. Blood work with a sodium level will be checked frequently. Problem 214040387 Underweight (R63.6) Active confirmed His appetite is better and he is feeling stronger. His body mass index is now 19. We continue our discussions on diet and nutrition. 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 A recent chest x-ray shows worsening airspace disease in right lung. He is due to see pulmonary within the next week. He has a cough which is nonproductive and is afebrile. n. Problem 34933535 Orthostatic hypotension (I95.1) Active confirmed He developed th is at home and was brought to the [facility] emergency of December 30, 2024 and admitted overnight for hydration. We have discussed aggressive hydration and adequate nutrition. Problem 767853996 Rosacea (L71.9) Active confirmed He was given metronidazole gel. He was instructed in its use. Problem 223108042 Pulmonary nodule (R91.1) Active confirmed This is being observed. No change in his symptoms have been noted. Problem 205851919 Adenoma of ascending colon (D12.2) Active confirmed He will call he r gastroenterologis t to see if additional colonoscopies will be recommended. Problem 630498683 Hypertrophy of prostate without urinary obstruction and other lower urinary tract symptoms (LUTS) (N40.0) Active confirmed He has been usi ng lifestyle modification and now experiences nocturia only once a night. Problem 11467913 Abdominal hernia without obstruction and without gangrene, recurrence not specified, unspecified hernia type (K46.9) Active confirmed The hernia is n ow asymptomatic and will be observed without treatment. Problem Pneumonia (811373116) Pneumonia (J18.9) Active confirmed He is taking th e azithromycin 3 times a week. The other antibiotic has been discontinued. The pneumonia has resolved. He is breathing comfortably. Problem Seizure (18513985) Seizures (R56.9) Active confirmed Just before discharge from an [facility] rehabilitation he was begun on Keppra for periods of unresponsiveness. A repeat CT scan November 18, 2024 showed improvement in the hemorrhage and edema. The Her will be discontinued until the electroencephalog jackie is done. We have requested a repeat visit from [facility] neurology. Problem Stroke (310874301) Stroke (I63.9) Active confirmed Problem Benign prostatic hypertrophy without outflow obstruction (537763397) Benign prostatic hyperplasia without lower urinary tract symptoms (N40.0) Active confirmed Problem 0901896110662 Benign prostatic hyperplasia with lower urinary tract symptoms (N40.1) Active confirmed He says he is rising from sleep up to 4 times a night. His tamsulosin waas stopped because of a low blood pressure. It curtis now resumed. He is happy with this level of control. We discussed further lifestyle modifications he can maake to reduce nocturia. Problem Disorder of musculoskeletal system (240015) Leg weakness, bilateral (R29.898) Active confirmed Problem 81391053 Sleep apnea in adult (G47.30) Active confirmed He is using t he new CPAP machine without difficulty and is pleased with the results. Problem 74763211 Generalized weakness (R53.1) Active confirmed He was [...] tract infection or acute metabolic problem. 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 Problem 74063810 Atrial arrhythmia (I49.8) Active confirmed He was in a normal sinus rhythm today with no abnormalities. He has had no episodes of tachycardia, syncope or palpitations. 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 and Sleep apnea in adult G47.30 Robbie Kothari III, MD [address] [place] [address] [place] [address] 11/21/2024 Robbie Kothari Hyperlipidemia E78.5 ; Nontraumatic [...] in adult G47.30 Robbie Kothari III, MD [address] [place] [address] [place] [address] 12/02/2024 Robbie Kothari Hyperlipidemia E78.5 ; 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 ; Pneumonia J18.9 ; Former smoker Z87.891 ; Mycobacterial infection, unspecified A31.9 ; Sleep apnea in adult G47.30 and Benign prostatic hyperplasia with lower urinary tract symptoms N40.1 Robbie Kothari III, MD [address] [place] [address] [place] [address] 12/19/2024 Robbie Kothari Hyperlipidemia E78.5 ; 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 ; Pneumonia J18.9 ; Underweight R63.6 ; Seizures R56.9 ; Former smoker Z87.891 ; Mycobacterial infection, unspecified A31.9 ; Sleep apnea in adult G47.30 and Benign prostatic hyperplasia with lower urinary tract symptoms N40.1 Robbie Kothari III, MD [address] [place] [address] [place] [address] 01/04/2025 Robbie Kothari Orthostatic hypotens ion I95.1 ; Former smoker Z87.891 ; Atrial arrhythmia I49.8 ; Hyperlipidemia E78.5 ; Rosacea L71.9 ; Benign prostatic hyperplasia with lower urinary tract symptoms N40.1 ; 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 ; Underweight R63.6 and Pneumonia J18.9 Robbie Kothari III, MD [address] [place] [address] [place] [address] 01/13/2025 Robbie Kothari Generalized weakness R53.1 ; Hyperlipidemia E78.5 ; Former smoker Z87.891 ; Hypertrophy of prostate without urinary obstruction and other lower urinary tract symptoms (LUTS) N40.0 ; Mycobacterial infection, unspecified A31.9 ; Underweight R63.6 ; 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 ; Orthostatic hypotension I95.1 and Pneumonia J18.9 Robbie Kothari III, MD [address] [place] [address] [place] [address] 01/27/2025 Robbie Kothari Former smoker Z87.89 1 [...] Generalized weakness R53.1 Robbie Kothari III, MD [address] [place] [address] [place] [address] 02/24/2025 Robbie Kothari Mycobacterial infect ion, unspecified A31.9 ; 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 ; Benign prostatic hyperplasia with lower urinary tract symptoms N40.1 ; Seizures R56.9 ; Hyponatremia E87.1 ; Former smoker Z87.891 ; Generalized weakness R53.1 and Acute gout of left hand, unspecified cause M10.9 Robbie Kothari III, MD [address] [place] [address] [place] [address] 03/20/2025 Robbie Kothari Former smoker Z87.89 1 ; Hyperlipidemia 272.4 ; Benign prostatic hyperplasia without lower urinary tract symptoms N40.0 ; Mycobacterial infection, unspecified A31.9 ; Underweight R63.6 ; Anterior subcapsular polar age-related cataract of both eyes H25.033 ; Seizures R56.9 and 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 Robbie Kothari III, MD [address] [place] [address] [place] [address] 05/02/2025 Robbie Kothari Former smoker Z87.89 1 [...] tract symptoms N40.0 Robbie Kothari III, MD [address] [place] [address] [place] [address] 10/28/2024 Robbie Kothari III, MD [address] [place] [address] [place] [address] 11/21/2024 Robbie Kothari III, MD [address] [place] [address] [place] [address] 11/21/2024 Robbie Kothari III, MD [address] [place] [address] [place] [address] 11/22/2024 Robbie Kothari III, MD [address] [place] [address] [place] [address] 11/22/2024 Robbie Kothari III, MD [address] [place] [address] [place] [address] 11/25/2024 Robbie Kothari III, MD [address] [place] [address] [place] [address] 11/25/2024 Robbie Kothari III, MD [address] [place] [address] [place] [address] 12/05/2024 Robbie Kothari III, MD [address] [place] [address] [place] [address] 12/14/2024 Robbie Kothari III, MD [address] [place] [address] [place] [address] 12/20/2024 Robbie Kothari III, MD [address] [place] [address] [place] [address] 01/02/2025 Robbie Kothari III, MD [address] [place] [address] [place] [address] 01/03/2025 Robbie Kothari III, MD [address] [place] [address] [place] [address] 01/06/2025 Robbie Kothari III, MD [address] [place] [address] 01/13/2025 Robbie Kothari III, MD [address] [place] [address] [place] [address] 01/17/2025 Robbie Kothari III, MD [address] [place] [address] [place] [address] 01/17/2025 Robbie Kothari III, MD [address] [place] [address] [place] [address] 02/07/2025 Robbie Kothari III, MD [address] [place] [address] [place] [address] 02/10/2025 Robbie Kothari III, MD [address] [place] [address] [place] [address] 02/24/2025 Robbie Kothari III, MD [address] [place] [address] [place] [address] 02/27/2025 Robbie Kothari III, MD [address] [place] [address] [place] [address] 03/03/2025 Robbie Kothari III, MD [address] [place] [address] [place] [address] 03/09/2025 Robbie Kothari III, MD [address] [place] [address] [place] [address] 03/10/2025 Robbie Kothari Assessments Encounter Date Diagnosis [...] at home and was brought to the [facility] emergency of December 30, 2024 and [...] We have requested a repeat visit from [facility] neurology. 12/02/2024 Pneumonia (ICD-10 - J18.9) [...] Hyponatremia (ICD-10 - E87.1) After admission to [facility] he required hypertonic saline and then [...] We have requested a repeat visit from [facility] neurology. 03/20/2025 Mycobacterial infection, unspecified (ICD-10 [...] We have requested a repeat visit from [facility] neurology. 01/04/2025 Rosacea (ICD-10 - L71.9) [...] Hyponatremia (ICD-10 - E87.1) After admission to [facility] he required hypertonic saline and then [...] We have requested a repeat visit from [facility] neurology. 02/24/2025 Former smoker (ICD-10 - [...] Hyponatremia (ICD-10 - E87.1) After admission to [facility] he required hypertonic saline and then [...] We have requested a repeat visit from [facility] neurology. 05/02/2025 Sleep apnea in adult (ICD-10 [...] at home and was brought to the [facility] emergency of December 30, 2024 and [...] Details Provider Name:Robbie Kothari, 07/17/2025 10:00:00 AM, [address] [place] [address] [address], [place], [address], Provider Name:Robbie Kothari, 01/29/2026 09:30:00 AM, [address] [place] [address] [address], [place], [address], Insurance Providers Payer Name Payer Address Payer Phone Subscriber Number Group Number Insured Name Patient Relationship to Insured Coverage Start Date Coverage End Date [employer] Medicare Advantage [address] [address] [place] [address] [phone] [id number] Freeman King Self - patient is the insured MEDICARE NGS [address] [place] [address] [id number] Freeman King Self - patient is the insured Medical (General) History Medical History History ICD Code colonic poyps 2002 benign prostatic hyperplasia (BPH) hyperlipidemia left herniorraphy age 30 neck and right shoulder pain 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
--- OUTSIDE RECORDS SUMMARY | 2025-05-30 11:11 | XMS_ITS | Encounter Summary ---
Author Organization [facility] [address] Address [address] [place] [address] Care Team Providers Care Baby Nurse Name Role Phone Gloria Preston MD Primary Care Provider [phone] Encounter Details Date Type Department Care Team (Late st Contact Info) Description 11/05/2024 Lab Requisition [facility] - Main Lab [address] [facility] [place] [address] Gloria Preston MD [address] [place] [address] Encounter for other general examination Social History [...] CBC auto differential (11/05/2024 5:51 AM EST) [facility] WBC 8.0 4.8 - 10.8 K/mcL LAB HEMETOLOGY METHOD 11/05/2024 11:21 AM [facility] RBC 4.20(L) 4.50 - 5.50 M/mcL LAB HEMETOLOGY METHOD 11/05/2024 11:21 AM [facility] Hemoglobin 13.8 13.5 - 17.5 g/dL LAB HEMETOLOGY METHOD 11/05/2024 11:21 AM [facility] Hematocrit 39.6(L) 42.0 - 54.0 % LAB HEMETOLOGY METHOD 11/05/2024 11:21 AM [facility] MCV 94.7 79.0 - 98.0 FL LAB HEMETOLOGY METHOD 11/05/2024 11:21 AM [facility] MCH 33.0(H) 27.0 - 32.0 pcg LAB HEMETOLOGY METHOD 11/05/2024 11:21 AM [facility] MCHC 34.8 32.0 - 37.0 g/dL LAB HEMETOLOGY METHOD 11/05/2024 11:21 AM [facility] RDW 12.7 11.0 - 15.0 % LAB HEMETOLOGY METHOD 11/05/2024 11:21 AM [facility] Platelets 261 130 - 400 K/mcL LAB HEMETOLOGY METHOD 11/05/2024 11:21 AM [facility] MPV 10.4 7.0 - 11.0 FL LAB HEMETOLOGY METHOD 11/05/2024 11:21 AM [facility] NRBC 0.0 <1.0 % LAB HEMETOLOGY METHOD 11/05/2024 11:21 AM [facility] NRBC Absolute 0.00 <0.10 K/mcL LAB HEMETOLOGY METHOD 11/05/2024 11:21 AM [facility] Neutrophils Relative 73.3 % LAB HEMETOLOGY METHOD 11/05/2024 11:21 AM [facility] Lymphocytes Relative 10.6 % LAB HEMETOLOGY METHOD 11/05/2024 11:21 AM [facility] Monocytes Relative 14.7 % LAB HEMETOLOGY METHOD 11/05/2024 11:21 AM [facility] Eosinophils Relative 0.4 % LAB HEMETOLOGY METHOD 11/05/2024 11:21 AM [facility] Basophils Relative 0.6 % LAB HEMETOLOGY METHOD 11/05/2024 11:21 AM [facility] Immature Granulocytes Relative 0.4 % LAB HEMETOLOGY METHOD 11/05/2024 11:21 AM [facility] Neutrophils Absolute 5.87 1.50 - 7.00 K/mcL LAB HEMETOLOGY METHOD 11/05/2024 11:21 AM [facility] Lymphocytes Absolute 0.85(L) 1.00 - 5.00 K/mcL LAB HEMETOLOGY METHOD 11/05/2024 11:21 AM [facility] Monocytes Absolute 1.18(H) 0.20 - 1.00 K/mcL LAB HEMETOLOGY METHOD 11/05/2024 11:21 AM [facility] Eosinophils Absolute 0.03 0.00 - 0.50 K/mcL LAB HEMETOLOGY METHOD 11/05/2024 11:21 AM [facility] Basophils Absolute 0.05 0.00 - 0.20 K/mcL LAB HEMETOLOGY METHOD 11/05/2024 11:21 AM [facility] Immature Granulocytes Absolute 0.03 0.00 - 0.03 K/mcL LAB HEMETOLOGY METHOD 11/05/2024 11:21 AM [facility] Blood Venous blood specimen / Unknown Venipuncture / Unknown 11/05/2024 5:51 AM EST 11/05/2024 9:43 AM EST us Gloria Preston MD LAB BLOOD ORDERABLES Final Resu lt [facility] [address] [place] [address], [place] [phone] * Magnesium (11/05/2024 5:51 AM EST) [facility] Magnesium 2.0 1.9 - 2.6 mg/dL LAB CHEMISTRY METHOD 11/05/2024 11:42 AM EST [facility] Blood Venous blood specimen / Unknown Venipuncture / Unknown 11/05/2024 5:51 AM EST 11/05/2024 9:43 AM EST us Gloria Preston MD LAB BLOOD ORDERABLES Final Resu lt Performing Organization Address City/[facility]/ZIP Co de Phone Number [facility] [address] [place] [address], [place] [phone] * (ABNORMAL) Comprehensive metabolic panel (11/05/2024 5:51 AM EST) [facility] Sodium 133 133 - 145 mmol/L LAB CHEMISTRY METHOD 11/05/2024 11:44 AM [facility] Potassium 4.1 3.5 - 5.5 mmol/L LAB CHEMISTRY METHOD 11/05/2024 11:44 AM [facility] Chloride 99 96 - 110 mmol/L LAB CHEMISTRY METHOD 11/05/2024 11:44 AM [facility] CO2 24 21 - 32 mmol/L LAB CHEMISTRY METHOD 11/05/2024 11:44 AM [facility] Anion Gap 10 3 - 11 LAB CHEMISTRY METHOD 11/05/2024 11:44 AM [facility] Glucose 92 70 - 100 mg/dL LAB CHEMISTRY METHOD 11/05/2024 11:44 AM [facility] BUN 18 5 - 25 mg/dL LAB CHEMISTRY METHOD 11/05/2024 11:44 AM [facility] Creatinine 0.54(L) 0.70 - 1.30 mg/dL LAB CHEMISTRY METHOD 11/05/2024 11:44 AM [facility] eGFR 98 >=60 mL/min/1. 73m2 LAB CHEMISTRY METHOD 11/05/2024 11:44 AM [facility] Comment:Calculation based on the Chronic Kidney Disease Epidemiology Collaboration (CKD-EPI) equation refit without adjustment for race. BUN/Creatinine Ratio 33.3 LAB CHEMISTRY METHOD 11/05/2024 11:44 AM [facility] Calcium 9.0 8.5 - 10.5 mg/dL LAB CHEMISTRY METHOD 11/05/2024 11:44 AM [facility] AST (SGOT) 17 10 - 42 unit/L LAB CHEMISTRY METHOD 11/05/2024 11:44 AM [facility] ALT (SGPT) 19 10 - 60 unit/L LAB CHEMISTRY METHOD 11/05/2024 11:44 AM [facility] Alkaline Phosphatase 83 42 - 121 unit/L LAB CHEMISTRY METHOD 11/05/2024 11:44 AM [facility] Total Protein 6.6 6.0 - 8.0 g/dL LAB CHEMISTRY METHOD 11/05/2024 11:44 AM [facility] Albumin 2.8(L) 3.2 - 5.0 g/dL LAB CHEMISTRY METHOD 11/05/2024 11:44 AM [facility] Total Bilirubin 1.1 0.0 - 1.4 mg/dL LAB CHEMISTRY METHOD 11/05/2024 11:44 AM [facility] Blood Venous blood specimen / Unknown Venipuncture / Unknown 11/05/2024 5:51 AM EST 11/05/2024 9:43 AM EST us Rami A Ashkar MD LAB BLOOD ORDERABLES Final Resu lt [facility] [address] [place] [address], documented in this encounter Visit Diagnoses Diagnosis Encounter for other general examination documented in this encounter Care Teams Baby Nurse Relationship Specialty Start Date End Date Gloria Preston MD [address] [place] [phone] PCP - General Hospitalist Medicine 11/05/24 documented as of this encounter
--- OUTSIDE RECORDS SUMMARY | 2025-05-30 11:11 | XMS_ITS | Clinical Summary ---
Author Organization [address] [facility] Address [address] [place] [address] Phone Care Team Providers Care Jersey Knitter Name Role Phone Gloria Preston MD Primary Care Provider [phone] Surgical History Surgery Date Site/Laterality Comments HERNIA [...] Pneumococcal Vaccine: 50+ Ye ars (1 of 1 - PCV) 02/20/1990 Zoster Vaccines (1 of 2) 02/20/1990 RSV Immunization Adult Patie nts (1 - 1-dose 75+ series) 02/20/2015 Depression Screening 09/14/2024 Cholesterol Screening (Lipid Panel) 11/05/2024 Falls Risk Assessment 11/05/2024 Medicare Annual Wellness Visit 11/05/2024 Social Influencers of Health Screening 11/05/2024 COVID-19 Vaccine (2 - 2024-2 6 season) 2025 11/05/2020 Influenza Vaccine (#1) 2025 HIB Vaccines Aged Out No longer [...] patient's age to complete this topic Insurance [place] [address] Care Teams Jersey Knitter Relationship Specialty Start Date End Date Gloria Preston MD [address] [place] [phone] PCP - General Hospitalist Medicine 11/05/24
--- OUTSIDE RECORDS SUMMARY | 2025-05-30 11:11 | XMS_ITS | Patient Health Record ---
Author Organization [facility] Address [address] [place] [address] Care Team Providers Care Fire Prevention Officer Name Role Phone Robbie Kothari MD Primary Care Provider UnavailRobbie Koo Unavailable [phone] Reason For Referral No Information Medications Medication [...] Problem Status W/U Status Risk Notes Problem [id number] Encounter for screening for malignant neoplasm of colon (Z12.11) Active confirmed Problem [id number] Hx of adenomatous colonic polyps (Z86.010) Active confirmed Problem [id number] Pre-procedural examination (Z01.818) Active confirmed Plan Of Treatment Future Test Test Name Order Date COLONOSCOPY 06/15/2018 Insurance Providers Payer Name Payer Address Payer Phone Subscriber Number Group Number Insured Name Patient Relationship to Insured Coverage Start Date Coverage End Date MEDICARE OF [place] [address] [place] [address] [phone] [id number] VAZQUEZ ROCHA Self - patient is the insured [facility] Insurance C/O [facility] [address] [place] [address] [phone] [id number] VAZQUEZ ROCHA Self - patient is the insured Medical (General) History Medical History History ICD Code Denies [place],DM,CVA,Lung disease,renal dise ase Hyperlipidemia Colonoscopy 2002-small tubul ar adenoma removed; colonoscopy in 2008 was negative--just diverticulosis and internal hemorrhoids Surgical History Surgery Date(Month/Year) Left inguinal hernia Skin cancers with skin grafts
--- OUTSIDE RECORDS SUMMARY | 2025-05-30 11:12 | XMS_ITS | Encounter Summary ---
Author Organization [facility] Address [address] [place] [address] Care Team Providers Care Clinical Auditor Name Role Phone Gloria Preston MD Primary Care Provider [phone] Encounter Details Date Type Department Care Team (Late st Contact Info) Description 11/18/2024 Lab Requisition [facility] - Main Lab [address] [facility] [place] [address] Gloria Preston MD [address] [place] [address] Encounter for other general examination Social History [...] K/mcL LAB HEMETOLOGY METHOD 11/18/2024 4:02 PM [facility] RBC 3.90(L) 4.50 - 5.50 M/mcL LAB HEMETOLOGY METHOD 11/18/2024 4:02 PM [facility] Hemoglobin 12.8(L) 13.5 - 17.5 g/dL LAB HEMETOLOGY METHOD 11/18/2024 4:02 PM [facility] Hematocrit 37.1(L) 42.0 - 54.0 % LAB HEMETOLOGY METHOD 11/18/2024 4:02 PM [facility] MCV 94.2 79.0 - 98.0 FL LAB HEMETOLOGY METHOD 11/18/2024 4:02 PM [facility] MCH 32.5(H) 27.0 - 32.0 pcg LAB HEMETOLOGY METHOD 11/18/2024 4:02 PM [facility] MCHC 34.5 32.0 - 37.0 g/dL LAB HEMETOLOGY METHOD 11/18/2024 4:02 PM [facility] RDW 12.7 11.0 - 15.0 % LAB HEMETOLOGY METHOD 11/18/2024 4:02 PM [facility] Platelets 269 130 - 400 K/mcL LAB HEMETOLOGY METHOD 11/18/2024 4:02 PM [facility] MPV 9.8 7.0 - 11.0 FL LAB HEMETOLOGY METHOD 11/18/2024 4:02 PM [facility] NRBC 0.0 <1.0 % LAB HEMETOLOGY METHOD 11/18/2024 4:02 PM [facility] NRBC Absolute 0.00 <0.10 K/mcL LAB HEMETOLOGY METHOD 11/18/2024 4:02 PM [facility] Neutrophils Relative 70.4 % LAB HEMETOLOGY METHOD 11/18/2024 4:02 PM [facility] Lymphocytes Relative 16.0 % LAB HEMETOLOGY METHOD 11/18/2024 4:02 PM [facility] Monocytes Relative 12.8 % LAB HEMETOLOGY METHOD 11/18/2024 4:02 PM [facility] Eosinophils Relative 0.0 % LAB HEMETOLOGY METHOD 11/18/2024 4:02 PM [facility] Basophils Relative 0.5 % LAB HEMETOLOGY METHOD 11/18/2024 4:02 PM [facility] Immature Granulocytes Relative 0.3 % LAB HEMETOLOGY METHOD 11/18/2024 4:02 PM [facility] Neutrophils Absolute 2.64 1.50 - 7.00 K/mcL LAB HEMETOLOGY METHOD 11/18/2024 4:02 PM [facility] Lymphocytes Absolute 0.60(L) 1.00 - 5.00 K/mcL LAB HEMETOLOGY METHOD 11/18/2024 4:02 PM [facility] Monocytes Absolute 0.48 0.20 - 1.00 K/mcL LAB HEMETOLOGY METHOD 11/18/2024 4:02 PM [facility] Eosinophils Absolute 0.00 0.00 - 0.50 K/mcL LAB HEMETOLOGY METHOD 11/18/2024 4:02 PM [facility] Basophils Absolute 0.02 0.00 - 0.20 K/mcL LAB HEMETOLOGY METHOD 11/18/2024 4:02 PM [facility] Immature Granulocytes Absolute 0.01 0.00 - 0.03 K/mcL LAB HEMETOLOGY METHOD 11/18/2024 4:02 PM EST [facility] Blood Venous blood specimen / Unknown Venipuncture / Unknown 11/18/2024 2:59 PM EST 11/18/2024 3:36 PM EST us Gloria Preston MD LAB BLOOD ORDERABLES Final Resu lt Performing Organization Address [facility]/ZIP Co de Phone Number [facility] [address] [place] [address], [place] [phone] * Prolactin (11/18/2024 2:59 PM EST) Pathologist [facility] Prolactin 12.10 2.50 - 17.40 ng/mL LAB CHEMISTRY METHOD 11/18/2024 7:21 PM EST [facility] Blood Venous blood specimen / Unknown Venipuncture / Unknown 11/18/2024 2:59 PM EST 11/18/2024 3:36 PM EST us Gloria Preston MD LAB BLOOD ORDERABLES Final Resu lt Performing Organization Address [facility]/ZIP Co de Phone Number [facility] [address] [place] [address], [place] [phone] * (ABNORMAL) Magnesium (11/18/2024 2:59 PM EST) [facility] Magnesium 1.6(L) 1.9 - 2.6 mg/dL LAB CHEMISTRY METHOD 11/18/2024 7:07 PM EST [facility] Blood Venous blood specimen / Unknown Venipuncture / Unknown 11/18/2024 2:59 PM EST 11/18/2024 3:36 PM EST us Gloria Preston MD LAB BLOOD ORDERABLES Final Resu lt Performing Organization Address [facility]/ZIP Co de Phone Number [facility] [address] [place] [address], [place] [phone] * (ABNORMAL) Comprehensive metabolic panel (11/18/2024 2:59 PM EST) Sodium 134 133 - 145 mmol/L LAB CHEMISTRY METHOD 11/18/2024 7:21 PM [facility] Potassium 3.9 3.5 - 5.5 mmol/L LAB CHEMISTRY METHOD 11/18/2024 7:21 PM [facility] Chloride 98 96 - 110 mmol/L LAB CHEMISTRY METHOD 11/18/2024 7:21 PM [facility] CO2 27 21 - 32 mmol/L LAB CHEMISTRY METHOD 11/18/2024 7:21 PM [facility] Anion Gap 9 3 - 11 LAB CHEMISTRY METHOD 11/18/2024 7:21 PM [facility] Glucose 96 70 - 100 mg/dL LAB CHEMISTRY METHOD 11/18/2024 7:21 PM [facility] BUN 16 5 - 25 mg/dL LAB CHEMISTRY METHOD 11/18/2024 7:21 PM [facility] Creatinine 0.68(L) 0.70 - 1.30 mg/dL LAB CHEMISTRY METHOD 11/18/2024 7:21 PM [facility] eGFR 92 >=60 mL/min/1. 73m2 LAB CHEMISTRY METHOD 11/18/2024 7:21 PM [facility] Comment:Calculation based on the Chronic Kidney Disease Epidemiology Collaboration (CKD-EPI) equation refit without adjustment for race. BUN/Creatinine Ratio 23.5 LAB CHEMISTRY METHOD 11/18/2024 7:21 PM [facility] Calcium 8.8 8.5 - 10.5 mg/dL LAB CHEMISTRY METHOD 11/18/2024 7:21 PM [facility] AST (SGOT) 25 10 - 42 unit/L LAB CHEMISTRY METHOD 11/18/2024 7:21 PM [facility] ALT (SGPT) 22 10 - 60 unit/L LAB CHEMISTRY METHOD 11/18/2024 7:21 PM EST [facility] Alkaline Phosphatase 89 42 - 121 unit/L LAB CHEMISTRY METHOD 11/18/2024 7:21 PM EST [facility] Total Protein 6.5 6.0 - 8.0 g/dL LAB CHEMISTRY METHOD 11/18/2024 7:21 PM [facility] Albumin 2.8(L) 3.2 - 5.0 g/dL LAB CHEMISTRY METHOD 11/18/2024 7:21 PM [facility] Total Bilirubin 0.3 0.0 - 1.4 mg/dL LAB CHEMISTRY METHOD 11/18/2024 7:21 PM [facility] Blood Venous blood specimen / Unknown Venipuncture / Unknown 11/18/2024 2:59 PM EST 11/18/2024 3:36 PM EST us Gloria Preston MD LAB BLOOD ORDERABLES Final Resu lt [facility] [address] [place] [address], [place] [phone] documented in this encounter Visit Diagnoses Diagnosis Encounter for other general examination documented in this encounter Care Teams Clinical Auditor Relationship Specialty Start Date End Date Gloria Preston MD [address] [place] [address] PCP - General Hospitalist Medicine 11/05/24 documented as of this encounter
--- OUTSIDE RECORDS SUMMARY | 2025-05-30 11:12 | XMS_ITS | Encounter Summary ---
Author Organization [facility] Address [address] [place] [address] Care Team Providers Care Hire Car Driver Name Role Phone Gloria Preston MD Primary Care Provider [phone] Encounter Details Date Type Department Care Team (Late st Contact Info) Description 11/16/2024 Lab Requisition [facility] - Main Lab [address] [facility] [place] [address] Gloria Preston MD [address] [place] [phone] Encounter for other general examination Social History [...] AM EST) WBC 3.8(L) 4.8 - 10.8 K/[facility] LAB HEMETOLOGY METHOD 11/16/2024 11:05 AM [facility] RBC 3.90(L) 4.50 - 5.50 M/mcL LAB HEMETOLOGY METHOD 11/16/2024 11:05 AM [facility] Hemoglobin 12.5(L) 13.5 - 17.5 g/dL LAB HEMETOLOGY METHOD 11/16/2024 11:05 AM [facility] Hematocrit 36.5(L) 42.0 - 54.0 % LAB HEMETOLOGY METHOD 11/16/2024 11:05 AM [facility] MCV 94.8 79.0 - 98.0 FL LAB HEMETOLOGY METHOD 11/16/2024 11:05 AM [facility] MCH 32.5(H) 27.0 - 32.0 pcg LAB HEMETOLOGY METHOD 11/16/2024 11:05 AM [facility] MCHC 34.2 32.0 - 37.0 g/dL LAB HEMETOLOGY METHOD 11/16/2024 11:05 AM [facility] RDW 13.0 11.0 - 15.0 % LAB HEMETOLOGY METHOD 11/16/2024 11:05 AM [facility] Platelets 307 130 - 400 K/mcL LAB HEMETOLOGY METHOD 11/16/2024 11:05 AM [facility] MPV 9.8 7.0 - 11.0 FL LAB HEMETOLOGY METHOD 11/16/2024 11:05 AM [facility] NRBC 0.0 <1.0 % LAB HEMETOLOGY METHOD 11/16/2024 11:05 AM [facility] NRBC Absolute 0.00 <0.10 K/mcL LAB HEMETOLOGY METHOD 11/16/2024 11:05 AM [facility] Neutrophils Relative 54.7 % LAB HEMETOLOGY METHOD 11/16/2024 11:05 AM [facility] Lymphocytes Relative 23.1 % LAB HEMETOLOGY METHOD 11/16/2024 11:05 AM [facility] Monocytes Relative 19.6 % LAB HEMETOLOGY METHOD 11/16/2024 11:05 AM [facility] Eosinophils Relative 0.5 % LAB HEMETOLOGY METHOD 11/16/2024 11:05 AM [facility] Basophils Relative 1.3 % LAB HEMETOLOGY METHOD 11/16/2024 11:05 AM [facility] Immature Granulocytes Relative 0.8 % LAB HEMETOLOGY METHOD 11/16/2024 11:05 AM [facility] Neutrophils Absolute 2.06 1.50 - 7.00 K/mcL LAB HEMETOLOGY METHOD 11/16/2024 11:05 AM [facility] Lymphocytes Absolute 0.87(L) 1.00 - 5.00 K/mcL LAB HEMETOLOGY METHOD 11/16/2024 11:05 AM [facility] Monocytes Absolute 0.74 0.20 - 1.00 K/mcL LAB HEMETOLOGY METHOD 11/16/2024 11:05 AM [facility] Eosinophils Absolute 0.02 0.00 - 0.50 K/mcL LAB HEMETOLOGY METHOD 11/16/2024 11:05 AM [facility] Basophils Absolute 0.05 0.00 - 0.20 K/mcL LAB HEMETOLOGY METHOD 11/16/2024 11:05 AM [facility] Immature Granulocytes Absolute 0.03 0.00 - 0.03 K/mcL LAB HEMETOLOGY METHOD 11/16/2024 11:05 AM [facility] Blood Venous blood specimen / Unknown Venipuncture / Unknown 11/16/2024 5:44 AM EST 11/16/2024 10:20 AM EST us Gloria Preston MD LAB BLOOD ORDERABLES Final Resu lt [facility] [address] [place] [address], [place] [phone] * (ABNORMAL) Basic metabolic panel (11/16/2024 5:44 AM EST) Sodium 135 133 - 145 mmol/L LAB CHEMISTRY METHOD 11/16/2024 2:30 PM [facility] Potassium 4.1 3.5 - 5.5 mmol/L LAB CHEMISTRY METHOD 11/16/2024 2:30 PM [facility] Chloride 99 96 - 110 mmol/L LAB CHEMISTRY METHOD 11/16/2024 2:30 PM [facility] CO2 25 21 - 32 mmol/L LAB CHEMISTRY METHOD 11/16/2024 2:30 PM [facility] Anion Gap 11 3 - 11 LAB CHEMISTRY METHOD 11/16/2024 2:30 PM [facility] Glucose 79 70 - 100 mg/dL LAB CHEMISTRY METHOD 11/16/2024 2:30 PM [facility] BUN 18 5 - 25 mg/dL LAB CHEMISTRY METHOD 11/16/2024 2:30 PM [facility] Creatinine 0.64(L) 0.70 - 1.30 mg/dL LAB CHEMISTRY METHOD 11/16/2024 2:30 PM [facility] eGFR 93 >=60 mL/min/1. 73m2 LAB CHEMISTRY METHOD 11/16/2024 2:30 PM [facility] Comment:Calculation based on the Chronic Kidney Disease Epidemiology Collaboration (CKD-EPI) equation refit without adjustment for race. BUN/Creatinine Ratio 28.1 LAB CHEMISTRY METHOD 11/16/2024 2:30 PM [facility] Calcium 8.9 8.5 - 10.5 mg/dL LAB CHEMISTRY METHOD 11/16/2024 2:30 PM [facility] Blood Venous blood specimen / Unknown Venipuncture / Unknown 11/16/2024 5:44 AM EST 11/16/2024 10:20 AM EST us Gloria Preston MD LAB BLOOD ORDERABLES Final Resu lt [facility] [address] [place] [address], documented in this encounter Visit Diagnoses Diagnosis Encounter for other general examination documented in this encounter Care Teams Hire Car Driver Relationship Specialty Start Date End Date Gloria Preston MD [address] [place] [id number] PCP - General Hospitalist Medicine 11/05/24 documented as of this encounter
== END 2025-05-30 09:30 | disposition home or self-care (01) ==
LOC: HO.HPS 09:00
PROVIDERS: PCP Internal Medicine Medical Oncology; Visit Provider Hospitalist
DX: J47.9 Bronchiectasis, uncomplicated (principal); R91.8 Other nonspecific abnormal finding of lung field; R05.3 Chronic cough; A31.9 Mycobacterial infection, unspecified; J41.0 Simple chronic bronchitis
CPT/HCPCS: 99214; G2211

== ENCOUNTER → 2025-05-30 09:00 | Outpatient (BNVA) | payer MEDICARE, SELFPAY | PROVIDERS: PCP Internal Medicine Medical Oncology; Visit Provider Hospitalist | DX: J47.9 Bronchiectasis, uncomplicated (principal); R91.8 Other nonspecific abnormal finding of lung field; J41.0 Simple chronic bronchitis; A31.9 Mycobacterial infection, unspecified | CPT/HCPCS: 99212 ==

== ENCOUNTER 2025-07-25 06:42 | Outpatient (REF) | payer MEDICARE, SELFPAY ==
--- OUTSIDE RECORDS SUMMARY | 2025-02-10 10:24 | XMS_ITS ---
Author Organization Robbie Kothari III, MD Address [address] [place] [address] [place] [address] Care Team Providers Care Nail Professional Name Role Phone Dr. Robbie Kothari III Primary Care Provider [phone] REASON FOR VISIT ? Rx Social History Sex Assigned At : Social History Observation Description Sex Assigned At Male Encounters Encounter Location Date Provider Diagnosis Robbie Kothari III, MD [address] [place] [address] [place] [address] 02/10/2025 Robbie Kothari Plan Of Treatment Next Appt Details Provider Name:Robbie Kothari , 10/17/2025 10:30:00 AM, [address] [place] [address] [place], [address], Provider Name:Robbie Kothari , 01/29/2026 09:30:00 AM, [address] [place] [address] [place], [address], Progress Notes * Freeman ROCHADOB: 0 (85 yo M)Acc No.[id number]:02/10/2025 Patient: Aranza Freeman BURGESS :1940 A ge:84 Y S ex:Male Address:[place] [address] * true * Date: Generated for Printi ng/Faxing/eTransmitting on: 09/24/2024 06:46 AM EST
--- OUTSIDE RECORDS SUMMARY | 2025-02-24 04:44 | XMS_ITS ---
Author Organization Robbie Kothari III, MD Address [address] [place] [address] [place] [address] Care Team Providers Care Manual Machinist Name Role Phone Dr. Robbie Kothari III Primary Care Provider REASON FOR VISIT FYI Social History Sex Assigned At : Social History Observation Description Sex Assigned At Male Encounters Encounter Location Date Provider Diagnosis Robbie Kothari III, MD [address] [place] [address] [place] [address] 02/24/2025 Robbie Kothari Plan Of Treatment Next Appt Details Provider Name:Robbie Kothari , 10/17/2025 10:30:00 AM, [address] [place] [address] [place], [phone], Provider Name:Robbie Kothari , 01/29/2026 09:30:00 AM, [address] [place] [address] [place], [address], Progress Notes * Freeman ROCHADOB: 0 (85 yo M)Acc No.[id number]:02/24/2025 Patient: Aranza Freeman BURGESS :1940 A ge:85 Y S ex:Male Address:[place] [address] * true * Date: Generated for Printi ng/Faxing/eTransmitting on: 09/24/2024 06:47 AM EST
--- OUTSIDE RECORDS SUMMARY | 2025-02-24 06:00 | XMS_ITS ---
Author Organization Robbie Kothari III, MD Address [address] [place] [address] [address] [place] [place] [address] Care Team Providers Care Vat Packer Name Role Phone Dr. Robbie Kothari III Primary Care Provider Allergies Allergen (clinical drug [...] Date Status Hydrocortisone 1 % 1 application Engineer Sergeant ally Twice a day 01/27/2025 Active Albuterol Sulfate (2.5 MG/3ML) 0.083% Inhalation Active Nystatin 682502 UNIT/GM APPLY TOPICALLY 3 TIMES A DAY [...] Problem Status W/U Status Risk Notes Problem [id number] Acute gout of left hand, unspecified cause [...] Date Provider Diagnosis Robbie Kothari III, MD [address] [place] [address] [place] [address] 02/24/2025 Robbie Kothari Mycobacterial infection, unspecified A31.9 [...] - R56.9) Just before discharge from an [facility] rehabilitation he was begun on Keppra for periods of unresponsiveness. A repeat CT scan November 18, 2024 showed improvement in the hemorrhage and edema. The Her will be discontinued until the electroencephalogram is done. We have requested a repeat visit from [facility] neurology. 02/24/2025 Hyponatremia (ICD-10 - E87.1) After admission to [facility] he required hypertonic saline and then [...] Date Notes Hydrocortisone 1 % 1 application Engineer Sergeant ally Twice a day 01/27/2025 Albuterol Sulfate (2.5 MG/3M L) 0.083% Inhalation Nystatin 750904 UNIT/GM APPLY TOPICALLY 3 TIMES A DAY FOR 30 DAYS APPLY TO THE AFFECTED AREA THREE TIMES A DAY External Atorvastatin Calcium 10 MG 1 tablet Orally Once a day Azithromycin 500 MG Oral Tamsulosin HCl 0.4 MG Oral Next Appt Details Follow Up: 3 Weeks, Reason: OV Provider Name:Robbie Kothari , 10/17/2025 10:30:00 AM, [address] [place] [address] [address], [place], [address], Provider Name:Robbie Irvingne , 01/29/2026 09:30:00 AM, [address] [place] [address] [address], [place], [address], Progress Notes * Freeman ROCHA JDOB: 0 (85 yo M)Acc No.[id number]:02/24/2025 Progress Notes Patient: Freeman CAZARES Provider: Mike Kothari MD :1940 A ge:85 Y S ex:Male Date:02/24/2025 Address: [address] [id number] Subjective: * Chief Complaints: * R ecent [...] report daily by telephone. He sees his lan support specialist, Dr. Minor, next week. A chest [...] x-cigarette smoker Jose guerrero has been to [facility] for 43 years and has 2 children and 2 grandchildren. 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 * Medications: T akingTamsulosin HCl 0.4 MG Capsule Oral Azithromycin 500 MG Tablet Oral Atorvastatin Calcium 10 MG Tablet 1 tablet Orally Once a day Nystatin 809869 UNIT/GM Powder APPLY TOPICALLY 3 TIMES A [...] tablet Orally Once a day Taking Nystatin 780587 UNIT/GM Powder APPLY TOPICALLY 3 TIMES A [...] We have requested a repeat visit from [facility] neurology. 5 . H yponatremia - E87.1 N otes :After admission to [facility] he required hypertonic saline and then [...] MD Date: 0 02/24/2025 Generated for Larisai dmitry/Awais/eTbrandysmitting on: 09/24/2024 06:45 AM EST History and Physical Notes * [...]
--- OUTSIDE RECORDS SUMMARY | 2025-02-27 09:41 | XMS_ITS ---
Author Organization Robbie Kothari III, MD Address [address] [facility] [place] [address] Care Team Providers Care Document Preparation Specialist Name Role Phone Dr. Robbie Kothari III Primary Care Provider REASON FOR VISIT update on how pt is feeling Social History Sex Assigned At : Social History Observation Description Sex Assigned At Male Encounters Encounter Location Date Provider Diagnosis Robbie Kothari III, MD [address] [place] [address] [place] [address] 02/27/2025 Robbie Kothari Plan Of Treatment Next Appt Details Provider Name:Robbie Kothari , 10/17/2025 10:30:00 AM, [address] [place] [address] [place], [address], Provider Name:Robbie Kothari , 01/29/2026 09:30:00 AM, [address] [place] [address] [place], [address], Progress Notes * Freeman ROCHADOB: [birth year] (85 yo M)Acc No.[id number]:02/27/2025 Patient: Aranza Freeman BURGESS :1940 A ge:85 Y S ex:Male Address:[place] [address] * true * Date: Generated for Printi ng/Faabigailg/eTransmitting on: 09/24/2024 06:46 AM EST
--- OUTSIDE RECORDS SUMMARY | 2025-03-03 04:40 | XMS_ITS ---
Author Organization Robbie Kothari III, MD Address [address] [place] [address] [place] [address] Care Team Providers Care Tag Stringer Name Role Phone Dr. Robbie Kothari III Primary Care Provider REASON FOR VISIT ? Rx Social History Sex Assigned At : Social History Observation Description Sex Assigned At Male Encounters Encounter Location Date Provider Diagnosis Robbie Kothari III, MD [address] [place] [address] [place] [address] 03/03/2025 Robbie Kothari Plan Of Treatment Next Appt Details Provider Name:Robbie Kothari , 10/17/2025 10:30:00 AM, [address] [place] [address] [place], [address], Provider Name:Robbie Kothari , 01/29/2026 09:30:00 AM, [address] [place] [address] [place], [address], Progress Notes * Freeman ROCHADOB: 0 (85 yo M)Acc No.[id number]:03/03/2025 Patient: Aranza Freeman BURGESS :1940 A ge:85 Y S ex:Male Address:[place] [address] * true * Date: Generated for Printi ng/Faxing/eTransmitting on: 09/24/2024 06:47 AM EST
--- OUTSIDE RECORDS SUMMARY | 2025-03-09 09:18 | XMS_ITS ---
Author Organization Robbie Kothari III, MD Address [address] [place] [address] [place] [address] Care Team Providers Care Plater Hot Dip Name Role Phone Dr. 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) Referral Organization Robbie Kothari III, MD Referring Provider First Name Robbie Referring Provider Last Name Saniya Referring Provider Speciality Internal M edicine Referred Organization [facility] nter Referred Provider [facility], Core Physical Therapy Referred Address [address] [place] [phone], Referred Provider Specialty Physical The rapist General [...] Provider Speciality Internal M edicine Referred Provider [facility] er, Speech and Hearing Referred Provider Specialty Unknown General Notes DSarika 03/09/2025 02:27:01 PM > Referral and last progress not faxed Referral Priority Routine Referral Appointment Date 03/15/2025 REASON FOR VISIT referral Social History Sex Assigned At : Social History Observation Description Sex Assigned At Male Encounters Encounter Location Date Provider Diagnosis Robbie Kothari III, MD [address] [place] [address] [address] [place] [address] 03/09/2025 Robbie Kothari Plan Of Treatment Referrals Referral Date Details 03/09/2025 03/09/2025, Evaluate and Treat Physical Therapy OT, Core Physical Therapy [facility], [address] [place] [address], [place], [place], [phone], 03/09/2025 03/09/2025, Evaluate and Treat Speech Therapy, Speech and Hearing [facility] Next Appt Details Provider Name:Robbie Donna Saniya , 10/17/2025 10:30:00 AM, [address] [place] [address] [address], [place], [address], Provider Name:Robbie Kothari , 01/29/2026 09:30:00 AM, [address] [place] [address] [address], [place], [address], Progress Notes * Freeman ROCHADOB: 0 (85 yo M)Acc No.[id number]:03/09/2025 Patient: Aranza BURGESSFreeman :1940 A ge:85 Y S ex:Male Address:[address] [place], [place] [address] [address] Subjective: * Chief Complaints: * R eferral * Medical History: * Surgical History: * Hospitalization/Major Diagno stic Procedure: * Medications: Objective: * Vitals: * Physical Examination: Assessment: Plan: * Treatment: * Procedure Codes: * true * Date: Generated for Chip andres/Awais/eTransmitting on: 09/24/2024 06:45 AM EST Consultation Request Notes Referral Date Referring Provider Referred Provider Not es 03/09/2025 Saniya [facility], Core Physical Therapy Evaluate and Treat Physical Therapy OT 03/09/2025 Saniya [facility], Speech and Hearing Evaluate and Treat Speech Therapy
--- OUTSIDE RECORDS SUMMARY | 2025-03-10 04:22 | XMS_ITS ---
Author Organization Robbie Kothari III, MD Address [address] [place] [address] Care Team Providers Care Industrial Hygiene Manager Name Role Phone Dr. Robbie Kothari III Primary Care Provider REASON FOR VISIT Refill request Medications Medication SIG (Take, Route, Fr equency, Duration) Notes Start Date End Date Status predniSONE 20 MG 1 tablet with food o r milk Orally Once a day for 10 days 03/10/2025 05/09/2025 Active Social History Sex Assigned At : Social History Observation Description Sex Assigned At Male Encounters Encounter Location Date Provider Diagnosis Robbie Kothari III, MD [address] [place] [address] [place] [address] 03/10/2025 Robbie Kothari Plan Of Treatment Medication Medication Name Sig Start Date Stop Date Notes predniSONE 20 MG 1 tablet with food o r milk Orally Once a day for 10 days 03/10/2025 05/09/2025 Next Appt Details Provider Name:Robbie Kothari , 10/17/2025 10:30:00 AM, [address] [place] [address] [place], [address], Provider Name:Robbie Kothari , 01/29/2026 09:30:00 AM, [address] [place] [address] [place], [address], Progress Notes * Freeman ROCHADOB: 0 (85 yo M)Acc No.[id number]:03/10/2025 Patient: Freeman CAZARES :1940 A ge:85 Y S ex:Male Address:[address] [place] [address] * Refills Start predniSONE Tablet, 20 MG, Orally, 10 Tablet, 1 tablet with food or milk, Once a day, 10 days, Refills=5 * true * Date: Generated for Chip andres/Awais/Juaquinitting on: 09/24/2024 06:47 AM EST
--- OUTSIDE RECORDS SUMMARY | 2025-03-20 05:45 | XMS_ITS ---
Author Organization Robbie Kothari III, MD Address [address] [place] [address] Care Team Providers Care Ice Cream Dipper Name Role Phone Dr. oRbbie Kothari III Primary Care Provider Allergies Allergen [...] Notes Start Date End Date Status Nystatin 908662 UNIT/GM APPLY TOPICALLY 3 TIMES A DAY [...] 03/10/2025 Active Hydrocortisone 1 % 1 application Meteorology Instructor ally Twice a day 01/27/2025 Active Albuterol [...] Date Provider Diagnosis Robbie Kothari III, MD [address] [place] [address] [place] [address] 03/20/2025 Robbie Venturarne Former smoker Z87.89 1 [...] We have requested a repeat visit from [facility] neurology. 03/20/2025 Nontraumatic hemorrhage of left cerebral [...] Sig Start Date Stop Date Notes Nystatin 855947 UNIT/GM APPLY TOPICALLY 3 TIMES A DAY FOR 30 DAYS APPLY TO THE AFFECTED AREA THREE TIMES A DAY External Atorvastatin Calcium 10 MG 1 tablet Orally Once a day Azithromycin 500 MG Oral Tamsulosin HCl 0.4 MG Oral predniSONE 20 MG 1 tablet with food o r milk Orally Once a day 03/10/2025 Hydrocortisone 1 % 1 application Meteorology Instructor ally Twice a day 01/27/2025 Albuterol Sulfate (2.5 MG/3M L) 0.083% Inhalation Next Appt Details Follow Up: 6 Weeks, Reason: ov Provider Name:Robbie Kothair , 10/17/2025 10:30:00 AM, [address] [place] [address] [place] [address], [address], Provider Name:Robbei Kothari , 01/29/2026 09:30:00 AM, [address] [place] [address] [place], [place], [address], Progress Notes * Freeman ROCHADOB: 0 (85 yo M)Acc No.[id number]:03/20/2025 Progress Notes Patient: Freeman CAZARES Provider: Mike Kothari MD :1940 A ge:85 Y S ex:Male Date:03/20/2025 Address:[address] [place], [place] [address] [place], [id number] Subjective: * Chief Complaints: * M ycobacterial [...] children and 2 grandchildren. 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 * Medications: T akingTamsulosin HCl 0.4 MG Capsule 1 capsule Orally at bed time Azithromycin 500 MG Tablet 1 tablet Orally Once a day Atorvastatin Calcium 10 MG Tablet 1 tablet Orally Once a day Nystatin 862080 UNIT/GM Powder APPLY TOPICALLY 3 TIMES A [...] tablet Orally Once a day Taking Nystatin 284207 UNIT/GM Powder APPLY TOPICALLY 3 TIMES A [...] N otes :Just before discharge from an [facility] rehabilitation he was begun on Keppra for periods of unresponsiveness. A repeat CT scan November 18, 2024 showed improvement in the hemorrhage and edema. The Her will be discontinued until the electroencephalogram is done. We have requested a repeat visit from [facility] neurology. 8 . N ontraumatic hemorrhage of [...] Once a day; C ontinue Nystatin Powder, 335213 UNIT/GM, APPLY TOPICALLY 3 TIMES A DAY [...] 03/20/2025 Generated for Larisai dmitry/Awais/eTransmitting on: 1 09/24/2024 06:46 AM EST History and Physical Notes * [...]
--- OUTSIDE RECORDS SUMMARY | 2025-05-02 06:00 | XMS_ITS ---
Author Organization Robbie oKthari III, MD Address [address] [place] [place] [address] Care Team Providers Care Manager Of Creative Services Name Role Phone Dr. Robbie Kothari III [...] Date Provider Diagnosis Robbie Kothari III, MD [address] [place] [address] [place] [address] 05/02/2025 Robbie Kothari Former smoker Z87.89 1 [...] Provider Name:Robbie Kothari , 10/17/2025 10:30:00 AM, [address] [place] [address] [address], [place], [address], Provider Name:Robbie Kothari , 01/29/2026 09:30:00 AM, [address] [place] [address] [address], [place], [address], Progress Notes * Freeman ROCHADOB: 0 (85 yo M)Acc No.[id number]:05/02/2025 Progress Notes Patient: Aranza BURGESS Freeman Lee Provider: Mike Kothari MD :1940 A ge:85 Y S ex:Male Date:05/02/2025 Address:[address], [id number] Subjective: * Chief Complaints: * M ycobacterium avium pulmonary infectionHyperlipidemiaBenign prosthetic hypertrophyCerebral hemorrhageLeft cerebral hemorrhageSeizuresPostural hypotension * HPI: C OVID-19 Screening: Jose guerrero returns for ongoing medical management. He is now taking Ryskamp in from the vaccines solutions specialist for his mycobacterial pulmonary infection. He [...] x-cigarette smoker H e has been to [facility] for 43 years and has 2 children and 2 grandchildren. 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 * Medications: T akingTylenol PM Extra [...] DiscontinuedTamsulosin HCl 0.4 MG Capsule Oral Nystatin 370561 UNIT/GM Powder APPLY TOPICALLY 3 TIMES A [...] HCl 0.4 MG Capsule Oral Discontinued Nystatin 372584 UNIT/GM Powder APPLY TOPICALLY 3 TIMES A [...] MD Date: 0 05/02/2025 Generated for Chip andres/Awais/Juaquinitting on: 09/24/2024 06:46 AM EST History and Physical [...]
--- OUTSIDE RECORDS SUMMARY | 2025-07-17 06:15 | XMS_ITS ---
Author Organization Robibe Kothari III, MD Address [address] [place] [address] Care Team Providers Care Stock Associate Name Role Phone Dr. Robbie Kothari III Primary Care Provider [phone] Allergies Allergen (clinical drug ingredient) Drug/Non Drug [...] Date Provider Diagnosis Robbie Kothari III, MD [address] [place] [address] [place] [address] 07/17/2025 Robbie Kothari Former smoker Z87.89 1 [...] Provider Name:Robbie Kothari , 10/17/2025 10:30:00 AM, [address] [place] [address] [address], [place], [address], Provider Name:Robbie Kothari , 01/29/2026 09:30:00 AM, [address] [place] [address] [address], [place], [address], Progress Notes * Freeman ROCHADOB: 0 (85 yo M)Acc No.[id number]:07/17/2025 Progress Notes Patient: Aranza BURGESS Freeman Lee Provider: Mike Kothari MD :1940 A ge:85 Y S ex:Male Date:07/17/2025 Address:[address] [place], [place] [id number] Subjective: * Chief Complaints: * M [...] x-cigarette smoker H cesar has been to [facility] for 43 years and has 2 children and 2 grandchildren. 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 * Medications: T akingTylenol PM Extra [...] Procedure Codes: 9 4760 MEASURE BLOOD OXYGEN [id number] CCIIV4 VAC NO PRSV 0.5 ML [id number] FLU VACC 4 LIBIA 3 YRS PLUS [...] Date: 09/16/2024 Generated for Chip andres/Awais/eTransmitting on: 1 09/24/2024 06:46 AM EST History [...]
--- OUTSIDE RECORDS SUMMARY | 2025-07-25 06:46 | XMS_ITS | Encounter Summary ---
Author Organization [facility] Address [address] [place] [address] Care Team Providers Care Cartridge Feeder Name Role Phone Gloria Preston MD Primary Care Provider Encounter Details Date Type Department Care Team (Late st Contact Info) Description 11/18/[address] [facility] - Main Lab [address] [facility] [place] [address] Gloria Preston MD [address] [place] [address] Encounter for other general examination Social History Tobacco Use Types Packs/Day Years Used Date Smoking Tobacco: Former Cigarettes 0 Q uit: 12/22/1959 Smokeless Tobacco: Never Alcohol [...] K/mcL LAB HEMETOLOGY METHOD 11/18/2024 4:02 PM [facility] RBC 3.90(L) 4.50 - 5.50 M/mcL LAB HEMETOLOGY METHOD 11/18/2024 4:02 PM [facility] Hemoglobin 12.8(L) 13.5 - 17.5 g/dL LAB HEMETOLOGY METHOD 11/18/2024 4:02 PM [facility] Hematocrit 37.1(L) 42.0 - 54.0 % LAB HEMETOLOGY METHOD 11/18/2024 4:02 PM [facility] MCV 94.2 79.0 - 98.0 FL LAB HEMETOLOGY METHOD 11/18/2024 4:02 PM [facility] MCH 32.5(H) 27.0 - 32.0 pcg LAB HEMETOLOGY METHOD 11/18/2024 4:02 PM [facility] MCHC 34.5 32.0 - 37.0 g/dL LAB HEMETOLOGY METHOD 11/18/2024 4:02 PM [facility] RDW 12.7 11.0 - 15.0 % LAB HEMETOLOGY METHOD 11/18/2024 4:02 PM [facility] Platelets 269 130 - 400 K/mcL LAB HEMETOLOGY METHOD 11/18/2024 4:02 PM [facility] MPV 9.8 7.0 - 11.0 FL LAB HEMETOLOGY METHOD 11/18/2024 4:02 PM [facility] NRBC 0.0 <1.0 % LAB HEMETOLOGY METHOD 11/18/2024 4:02 PM [facility] NRBC Absolute 0.00 <0.10 K/mcL LAB HEMETOLOGY METHOD 11/18/2024 4:02 PM [facility] Neutrophils Relative 70.4 % LAB HEMETOLOGY METHOD 11/18/2024 4:02 PM [facility] Lymphocytes Relative 16.0 % LAB HEMETOLOGY METHOD 11/18/2024 4:02 PM [facility] Monocytes Relative 12.8 % LAB HEMETOLOGY METHOD 11/18/2024 4:02 PM [facility] Eosinophils Relative 0.0 % LAB HEMETOLOGY METHOD 11/18/2024 4:02 PM [facility] Basophils Relative 0.5 % LAB HEMETOLOGY METHOD 11/18/2024 4:02 PM [facility] Immature Granulocytes Relative 0.3 % LAB HEMETOLOGY METHOD 11/18/2024 4:02 PM [facility] Neutrophils Absolute 2.64 1.50 - 7.00 K/mcL LAB HEMETOLOGY METHOD 11/18/2024 4:02 PM [facility] Lymphocytes Absolute 0.60(L) 1.00 - 5.00 K/mcL LAB HEMETOLOGY METHOD 11/18/2024 4:02 PM [facility] Monocytes Absolute 0.48 0.20 - 1.00 K/mcL LAB HEMETOLOGY METHOD 11/18/2024 4:02 PM [facility] Eosinophils Absolute 0.00 0.00 - 0.50 K/mcL LAB HEMETOLOGY METHOD 11/18/2024 4:02 PM [facility] Basophils Absolute 0.02 0.00 - 0.20 K/mcL LAB HEMETOLOGY METHOD 11/18/2024 4:02 PM [facility] Immature Granulocytes Absolute 0.01 0.00 - 0.03 K/mcL LAB HEMETOLOGY METHOD 11/18/2024 4:02 PM EST [facility] Blood Venous blood specimen / Unknown Venipuncture / Unknown 11/18/2024 2:59 PM EST 11/18/2024 3:36 PM EST us Gloria Preston MD LAB BLOOD ORDERABLES Final Resu lt Performing Organization Address [facility]/ZIP Co de Phone Number [facility] [address] [place] [address], [place] [phone] * Prolactin (11/18/2024 2:59 PM EST) Pathologist [facility] Prolactin 12.10 2.50 - 17.40 ng/mL LAB CHEMISTRY METHOD 11/18/2024 7:21 PM EST [facility] Blood Venous blood specimen / Unknown Venipuncture / Unknown 11/18/2024 2:59 PM EST 11/18/2024 3:36 PM EST us Gloria Preston MD LAB BLOOD ORDERABLES Final Resu lt Performing Organization Address [facility]/ZIP Co de Phone Number [facility] [address] [place] [address], [place] [phone] * (ABNORMAL) Magnesium (11/18/2024 2:59 PM EST) [facility] Magnesium 1.6(L) 1.9 - 2.6 mg/dL LAB CHEMISTRY METHOD 11/18/2024 7:07 PM EST [facility] Blood Venous blood specimen / Unknown Venipuncture / Unknown 11/18/2024 2:59 PM EST 11/18/2024 3:36 PM EST us Gloria Preston MD LAB BLOOD ORDERABLES Final Resu lt Performing Organization Address City/[facility]/ZIP Co de Phone Number [facility] [address] [place] [address], [place] [phone] * (ABNORMAL) Comprehensive metabolic panel (11/18/2024 2:59 PM EST) Sodium 134 133 - 145 mmol/L LAB CHEMISTRY METHOD 11/18/2024 7:21 PM [facility] Potassium 3.9 3.5 - 5.5 mmol/L LAB CHEMISTRY METHOD 11/18/2024 7:21 PM [facility] Chloride 98 96 - 110 mmol/L LAB CHEMISTRY METHOD 11/18/2024 7:21 PM [facility] CO2 27 21 - 32 mmol/L LAB CHEMISTRY METHOD 11/18/2024 7:21 PM [facility] Anion Gap 9 3 - 11 LAB CHEMISTRY METHOD 11/18/2024 7:21 PM [facility] Glucose 96 70 - 100 mg/dL LAB CHEMISTRY METHOD 11/18/2024 7:21 PM [facility] BUN 16 5 - 25 mg/dL LAB CHEMISTRY METHOD 11/18/2024 7:21 PM [facility] Creatinine 0.68(L) 0.70 - 1.30 mg/dL LAB CHEMISTRY METHOD 11/18/2024 7:21 PM [facility] eGFR 92 >=60 mL/min/1. 73m2 LAB CHEMISTRY METHOD 11/18/2024 7:21 PM [facility] Comment:Calculation based on the Chronic Kidney Disease Epidemiology Collaboration (CKD-EPI) equation refit without adjustment for race. BUN/Creatinine Ratio 23.5 LAB CHEMISTRY METHOD 11/18/2024 7:21 PM [facility] Calcium 8.8 8.5 - 10.5 mg/dL LAB CHEMISTRY METHOD 11/18/2024 7:21 PM [facility] AST (SGOT) 25 10 - 42 unit/L LAB CHEMISTRY METHOD 11/18/2024 7:21 PM [facility] ALT (SGPT) 22 10 - 60 unit/L LAB CHEMISTRY METHOD 11/18/2024 7:21 PM EST [facility] Alkaline Phosphatase 89 42 - 121 unit/L LAB CHEMISTRY METHOD 11/18/2024 7:21 PM EST [facility] Total Protein 6.5 6.0 - 8.0 g/dL LAB CHEMISTRY METHOD 11/18/2024 7:21 PM [facility] Albumin 2.8(L) 3.2 - 5.0 g/dL LAB CHEMISTRY METHOD 11/18/2024 7:21 PM [facility] Total Bilirubin 0.3 0.0 - 1.4 mg/dL LAB CHEMISTRY METHOD 11/18/2024 7:21 PM [facility] Blood Venous blood specimen / Unknown Venipuncture / Unknown 11/18/2024 2:59 PM EST 11/18/2024 3:36 PM EST us Gloria Preston MD LAB BLOOD ORDERABLES Final Resu lt [facility] [address] [place] [address], [place] [phone] documented in this encounter Visit Diagnoses Diagnosis Encounter for other general examination documented in this encounter Care Teams Cartridge Feeder Relationship Specialty Start Date End Date Gloria Preston MD [address] [place] [address] PCP - General Hospitalist Medicine 11/05/24 documented as of this encounter
--- OUTSIDE RECORDS SUMMARY | 2025-07-25 06:46 | XMS_ITS | Encounter Summary ---
Author Organization [facility] Address [address] [place] [address] Care Team Providers Care Store Operations Manager Name Role Phone Gloria Preston MD Primary Care Provider [phone] Encounter Details Date Type Department Care Team (Late st Contact Info) Description 11/10/2024 Lab Requisition [facility] - Main Lab [address] [facility] [employer] [place] [address] Gloria Preston MD [address] [place] [address] Encounter for other general examination Social History [...] * Vitamin B12 (11/10/2024 6:06 AM EST) [facility] Vitamin B-12 413 250 - 900 pcg/mL LAB CHEMISTRY METHOD 11/10/2024 9:28 PM EST [facility] Blood Venous blood specimen / Unknown Venipuncture / Unknown 11/10/2024 6:06 AM EST 11/10/2024 8:03 AM EST Gloria Preston MD LAB BLOOD ORDERABLES Final Resu lt Performing Organization Address [facility]/ZIP Co de Phone Number [facility] [address] [place] [address], [place] [phone] * Thyroid stimulating hormone (11/10/2024 6:06 AM EST) [facility] TSH 1.57 0.40 - 4.00 mcIU/mL LAB CHEMISTRY METHOD 11/10/2024 9:51 PM EST [facility] Blood Venous blood specimen / Unknown Venipuncture / Unknown 11/10/2024 6:06 AM EST 11/10/2024 8:03 AM EST Gloria Preston MD LAB BLOOD ORDERABLES Final Resu lt [facility] [address] [place] [address], [place] [phone] * (ABNORMAL) CBC auto differential (11/10/2024 6:06 AM EST) [facility] WBC 6.0 4.8 - 10.8 K/[facility] LAB HEMETOLOGY METHOD 11/10/2024 8:44 AM EST [facility] RBC 3.80(L) 4.50 - 5.50 M/[facility] LAB HEMETOLOGY METHOD 11/10/2024 8:44 AM [facility] Hemoglobin 12.4(L) 13.5 - 17.5 g/dL LAB HEMETOLOGY METHOD 11/10/2024 8:44 AM [facility] Hematocrit 36.7(L) 42.0 - 54.0 % LAB HEMETOLOGY METHOD 11/10/2024 8:44 AM [facility] MCV 95.6 79.0 - 98.0 FL LAB HEMETOLOGY METHOD 11/10/2024 8:44 AM [facility] MCH 32.3(H) 27.0 - 32.0 pcg LAB HEMETOLOGY METHOD 11/10/2024 8:44 AM [facility] MCHC 33.8 32.0 - 37.0 g/dL LAB HEMETOLOGY METHOD 11/10/2024 8:44 AM [facility] RDW 12.8 11.0 - 15.0 % LAB HEMETOLOGY METHOD 11/10/2024 8:44 AM [facility] Platelets 337 130 - 400 K/mcL LAB HEMETOLOGY METHOD 11/10/2024 8:44 AM [facility] MPV 9.8 7.0 - 11.0 FL LAB HEMETOLOGY METHOD 11/10/2024 8:44 AM [facility] NRBC 0.0 <1.0 % LAB HEMETOLOGY METHOD 11/10/2024 8:44 AM [facility] NRBC Absolute 0.00 <0.10 K/mcL LAB HEMETOLOGY METHOD 11/10/2024 8:44 AM [facility] Neutrophils Relative 72.1 % LAB HEMETOLOGY METHOD 11/10/2024 8:44 AM [facility] Lymphocytes Relative 14.8 % LAB HEMETOLOGY METHOD 11/10/2024 8:44 AM [facility] Monocytes Relative 9.9 % LAB HEMETOLOGY METHOD 11/10/2024 8:44 AM [facility] Eosinophils Relative 1.5 % LAB HEMETOLOGY METHOD 11/10/2024 8:44 AM [facility] Basophils Relative 1.2 % LAB HEMETOLOGY METHOD 11/10/2024 8:44 AM [facility] Immature Granulocytes Relative 0.5 % LAB HEMETOLOGY METHOD 11/10/2024 8:44 AM [facility] Neutrophils Absolute 4.29 1.50 - 7.00 K/mcL LAB HEMETOLOGY METHOD 11/10/2024 8:44 AM [facility] Lymphocytes Absolute 0.88(L) 1.00 - 5.00 K/mcL LAB HEMETOLOGY METHOD 11/10/2024 8:44 AM [facility] Monocytes Absolute 0.59 0.20 - 1.00 K/mcL LAB HEMETOLOGY METHOD 11/10/2024 8:44 AM [facility] Eosinophils Absolute 0.09 0.00 - 0.50 K/mcL LAB HEMETOLOGY METHOD 11/10/2024 8:44 AM [facility] Basophils Absolute 0.07 0.00 - 0.20 K/mcL LAB HEMETOLOGY METHOD 11/10/2024 8:44 AM [facility] Immature Granulocytes Absolute 0.03 0.00 - 0.03 K/mcL LAB HEMETOLOGY METHOD 11/10/2024 8:44 AM [facility] Blood Venous blood specimen / Unknown Venipuncture / Unknown 11/10/2024 6:06 AM EST 11/10/2024 8:03 AM EST us Gloria Preston MD LAB BLOOD ORDERABLES Final Resu lt [facility] [address] [place] [address], [place] [phone] * Magnesium (11/10/2024 6:06 AM EST) Pathologist [facility] Magnesium 2.0 1.9 - 2.6 mg/dL LAB CHEMISTRY METHOD 11/10/2024 9:04 AM [facility] Blood Venous blood specimen / Unknown Venipuncture / Unknown 11/10/2024 6:06 AM EST 11/10/2024 8:03 AM EST us Gloria Preston MD LAB BLOOD ORDERABLES Final Resu lt [facility] [address] [place] [address], [place] [phone] * (ABNORMAL) Basic metabolic panel (11/10/2024 6:06 AM EST) [facility] Sodium 136 133 - 145 mmol/L LAB CHEMISTRY METHOD 11/10/2024 9:04 AM [facility] Potassium 4.3 3.5 - 5.5 mmol/L LAB CHEMISTRY METHOD 11/10/2024 9:04 AM [facility] Chloride 103 96 - 110 mmol/L LAB CHEMISTRY METHOD 11/10/2024 9:04 AM [facility] CO2 25 21 - 32 mmol/L LAB CHEMISTRY METHOD 11/10/2024 9:04 AM [facility] Anion Gap 8 3 - 11 LAB CHEMISTRY METHOD 11/10/2024 9:04 AM [facility] Glucose 94 70 - 100 mg/dL LAB CHEMISTRY METHOD 11/10/2024 9:04 AM [facility] BUN 22 5 - 25 mg/dL LAB CHEMISTRY METHOD 11/10/2024 9:04 AM [facility] Creatinine 0.54(L) 0.70 - 1.30 mg/dL LAB CHEMISTRY METHOD 11/10/2024 9:04 AM EST [facility] eGFR 98 >=60 mL/min/1. 73m2 LAB CHEMISTRY METHOD 11/10/2024 9:04 AM EST [facility] Comment:Calculation based on the Chronic Kidney Disease Epidemiology Collaboration (CKD-EPI) equation refit without adjustment for race. BUN/Creatinine Ratio 40.7 LAB CHEMISTRY METHOD 11/10/2024 9:04 AM [facility] Calcium 9.1 8.5 - 10.5 mg/dL LAB CHEMISTRY METHOD 11/10/2024 9:04 AM [facility] Blood Venous blood specimen / Unknown Venipuncture / Unknown 11/10/2024 6:06 AM EST 11/10/2024 8:03 AM EST us Gloria Preston MD LAB BLOOD ORDERABLES Final Resu lt [facility] [address] [place] [address], documented in this encounter Visit Diagnoses Diagnosis Encounter for other general examination documented in this encounter Care Teams Store Operations Manager Relationship Specialty Start Date End Date Gloria Preston MD [address] [place] [phone] PCP - General Hospitalist Medicine 11/05/24 documented as of this encounter
--- OUTSIDE RECORDS SUMMARY | 2025-07-25 06:46 | XMS_ITS | Encounter Summary ---
Author Organization [facility] Address [address] [place] [address] Care Team Providers Care Answering Service Telephone Operator Name Role Phone Gloria Preston MD Primary Care Provider [phone] Encounter Details Date Type Department Care Team (Late st Contact Info) Description 11/16/2024 Lab Requisition [facility] - Main Lab 299 [facility] [email or web address] [address] Gloria Preston MD [address] [place] [address] Encounter for other general examination Social History [...] AM EST) WBC 3.8(L) 4.8 - 10.8 K/[facility] LAB HEMETOLOGY METHOD 11/16/2024 11:05 AM [facility] RBC 3.90(L) 4.50 - 5.50 M/mcL LAB HEMETOLOGY METHOD 11/16/2024 11:05 AM [facility] Hemoglobin 12.5(L) 13.5 - 17.5 g/dL LAB HEMETOLOGY METHOD 11/16/2024 11:05 AM [facility] Hematocrit 36.5(L) 42.0 - 54.0 % LAB HEMETOLOGY METHOD 11/16/2024 11:05 AM [facility] MCV 94.8 79.0 - 98.0 FL LAB HEMETOLOGY METHOD 11/16/2024 11:05 AM [facility] MCH 32.5(H) 27.0 - 32.0 pcg LAB HEMETOLOGY METHOD 11/16/2024 11:05 AM [facility] MCHC 34.2 32.0 - 37.0 g/dL LAB HEMETOLOGY METHOD 11/16/2024 11:05 AM [facility] RDW 13.0 11.0 - 15.0 % LAB HEMETOLOGY METHOD 11/16/2024 11:05 AM [facility] Platelets 307 130 - 400 K/mcL LAB HEMETOLOGY METHOD 11/16/2024 11:05 AM [facility] MPV 9.8 7.0 - 11.0 FL LAB HEMETOLOGY METHOD 11/16/2024 11:05 AM [facility] NRBC 0.0 <1.0 % LAB HEMETOLOGY METHOD 11/16/2024 11:05 AM [facility] NRBC Absolute 0.00 <0.10 K/mcL LAB HEMETOLOGY METHOD 11/16/2024 11:05 AM [facility] Neutrophils Relative 54.7 % LAB HEMETOLOGY METHOD 11/16/2024 11:05 AM [facility] Lymphocytes Relative 23.1 % LAB HEMETOLOGY METHOD 11/16/2024 11:05 AM [facility] Monocytes Relative 19.6 % LAB HEMETOLOGY METHOD 11/16/2024 11:05 AM [facility] Eosinophils Relative 0.5 % LAB HEMETOLOGY METHOD 11/16/2024 11:05 AM [facility] Basophils Relative 1.3 % LAB HEMETOLOGY METHOD 11/16/2024 11:05 AM [facility] Immature Granulocytes Relative 0.8 % LAB HEMETOLOGY METHOD 11/16/2024 11:05 AM [facility] Neutrophils Absolute 2.06 1.50 - 7.00 K/mcL LAB HEMETOLOGY METHOD 11/16/2024 11:05 AM [facility] Lymphocytes Absolute 0.87(L) 1.00 - 5.00 K/mcL LAB HEMETOLOGY METHOD 11/16/2024 11:05 AM [facility] Monocytes Absolute 0.74 0.20 - 1.00 K/mcL LAB HEMETOLOGY METHOD 11/16/2024 11:05 AM [facility] Eosinophils Absolute 0.02 0.00 - 0.50 K/mcL LAB HEMETOLOGY METHOD 11/16/2024 11:05 AM [facility] Basophils Absolute 0.05 0.00 - 0.20 K/mcL LAB HEMETOLOGY METHOD 11/16/2024 11:05 AM [facility] Immature Granulocytes Absolute 0.03 0.00 - 0.03 K/mcL LAB HEMETOLOGY METHOD 11/16/2024 11:05 AM [facility] Blood Venous blood specimen / Unknown Venipuncture / Unknown 11/16/2024 5:44 AM EST 11/16/2024 10:20 AM EST us Gloria Preston MD LAB BLOOD ORDERABLES Final Resu lt [facility] [address] [place] [address], [place] [phone] * (ABNORMAL) Basic metabolic panel (11/16/2024 5:44 AM EST) Sodium 135 133 - 145 mmol/L LAB CHEMISTRY METHOD 11/16/2024 2:30 PM [facility] Potassium 4.1 3.5 - 5.5 mmol/L LAB CHEMISTRY METHOD 11/16/2024 2:30 PM [facility] Chloride 99 96 - 110 mmol/L LAB CHEMISTRY METHOD 11/16/2024 2:30 PM [facility] CO2 25 21 - 32 mmol/L LAB CHEMISTRY METHOD 11/16/2024 2:30 PM [facility] Anion Gap 11 3 - 11 LAB CHEMISTRY METHOD 11/16/2024 2:30 PM [facility] Glucose 79 70 - 100 mg/dL LAB CHEMISTRY METHOD 11/16/2024 2:30 PM [facility] BUN 18 5 - 25 mg/dL LAB CHEMISTRY METHOD 11/16/2024 2:30 PM [facility] Creatinine 0.64(L) 0.70 - 1.30 mg/dL LAB CHEMISTRY METHOD 11/16/2024 2:30 PM [facility] eGFR 93 >=60 mL/min/1. 73m2 LAB CHEMISTRY METHOD 11/16/2024 2:30 PM [facility] Comment:Calculation based on the Chronic Kidney Disease Epidemiology Collaboration (CKD-EPI) equation refit without adjustment for race. BUN/Creatinine Ratio 28.1 LAB CHEMISTRY METHOD 11/16/2024 2:30 PM [facility] Calcium 8.9 8.5 - 10.5 mg/dL LAB CHEMISTRY METHOD 11/16/2024 2:30 PM EST [facility] Blood Venous blood specimen / Unknown Venipuncture / Unknown 11/16/2024 5:44 AM EST 11/16/2024 10:20 AM EST Gloria Preston MD LAB BLOOD ORDERABLES Final Resu lt [facility] [address] [place] [address], documented in this encounter Visit Diagnoses Diagnosis Encounter for other general examination documented in this encounter Care Teams Answering Service Telephone Operator Relationship Specialty Start Date End Date Gloria Preston MD [address] [place] [phone] PCP - General Hospitalist Medicine 11/05/24 documented as of this encounter
--- OUTSIDE RECORDS SUMMARY | 2025-07-25 06:46 | XMS_ITS | Encounter Summary ---
Author Organization [facility] Address [address] [place] [address] Care Team Providers Care Fitness Instructor Name Role Phone Gloria Preston MD Primary Care Provider [phone] Encounter Details Date Type Department Care Team (Late st Contact Info) Description 11/07/2024 Lab Requisition [facility] - Main Lab [address] [place] [address] Gloria Preston MD [address] [place] [phone] Encounter for other general examination Social History [...] LAB CHEMISTRY METHOD 11/07/2024 1:[address] [facility] Potassium 3.9 3.5 - 5.5 mmol/L LAB CHEMISTRY METHOD 11/07/2024 1:[address] [facility] Chloride 99 96 - 110 mmol/L LAB CHEMISTRY METHOD 11/07/2024 1:06 PM [facility] CO2 22 21 - 32 mmol/L LAB CHEMISTRY METHOD 11/07/2024 1:06 PM [facility] Anion Gap 13(H) 3 - 11 LAB CHEMISTRY METHOD 11/07/2024 1:06 PM [facility] Glucose 78 70 - 100 mg/dL LAB CHEMISTRY METHOD 11/07/2024 1:06 PM [facility] BUN 20 5 - 25 mg/dL LAB CHEMISTRY METHOD 11/07/2024 1:06 PM [facility] Creatinine 0.55(L) 0.70 - 1.30 mg/dL LAB CHEMISTRY METHOD 11/07/2024 1:06 PM [facility] eGFR 98 >=60 mL/min/1. 73m2 LAB CHEMISTRY METHOD 11/07/2024 1:06 PM [facility] Comment:Calculation based on the Chronic Kidney Disease Epidemiology Collaboration (CKD-EPI) equation refit without adjustment for race. BUN/Creatinine Ratio 36.4 LAB CHEMISTRY METHOD 11/07/2024 1:06 PM [facility] Calcium 8.6 8.5 - 10.5 mg/dL LAB CHEMISTRY METHOD 11/07/2024 1:06 PM [facility] AST (SGOT) 44(H) 10 - 42 unit/L LAB CHEMISTRY METHOD 11/07/2024 1:06 PM [facility] Comment:Results verified by repeat testing ALT (SGPT) 41 10 - 60 unit/L LAB CHEMISTRY METHOD 11/07/2024 1:06 PM [facility] Comment:Results verified by repeat testing Alkaline Phosphatase 100 42 - 121 unit/L LAB CHEMISTRY METHOD 11/07/2024 1:06 PM [facility] Total Protein 6.4 6.0 - 8.0 g/dL LAB CHEMISTRY METHOD 11/07/2024 1:06 PM [facility] Albumin 2.7(L) 3.2 - 5.0 g/dL LAB CHEMISTRY METHOD 11/07/2024 1:[address] [facility] Total Bilirubin 1.1 0.0 - 1.4 mg/dL LAB CHEMISTRY METHOD 11/07/2024 1:[address] [facility] Blood Venous blood specimen / Unknown Venipuncture / Unknown 11/07/2024 5:23 AM EST 11/07/2024 10:38 AM EST us Gloria Preston MD LAB BLOOD ORDERABLES Final Resu lt [facility] [address] [place] [address], documented in this encounter Visit Diagnoses Diagnosis Encounter for other general examination documented in this encounter Care Teams Fitness Instructor Relationship Specialty Start Date End Date Gloria Preston MD [address] [place] [id number] PCP - General Hospitalist Medicine 11/05/24 documented as of this encounter
--- OUTSIDE RECORDS SUMMARY | 2025-07-25 06:46 | XMS_ITS | Patient Health Record ---
Author Organization [facility] jarett VillatoroTadeo Address [address] [place] [address] Care Team Providers Care Electro Tech Name Role Phone Robbie Kothari MD Primary Care Provider Ana Rosales Unavailable [phone] Allergies Allergen (clinical drug ingredient) Drug/Non Drug Allergy documented on EMR Reaction Allergy Type Onset Date Status Latex Latex Unknown Allergy Active Reason For Referral No Information Medications Medication SIG (Take, Route, Frequency, Duration) Notes Start Date End Date Status Lipitor 10 MG 1 tablet Orally Once a day; Duration: 30 day(s) 03/29/2024 Active rifAMPin 300 MG Oral; Duration: 30 Days Active Atorvastatin Calcium 10 MG TAKE 1 TABLET BY MOUTH EVERY DAY Oral; Duration: 90 Days Active Azithromycin 500 MG TAKE 1 TABLET BY RAMIN TH 3 TIMES A WEEK ON THURSDAY,THURSDAY AND FRIDAYS Oral daily; Duration: 90 days Active Advil Active Immunizations Vaccine Route Administration Date Status Comme nts Influenza Unknown 06/29/2024 Administered Influenza Unknown 06/14/2025 Administered Social History Tobacco Use: Social History [...] atherosclerosis of arteries of lower limbs (disorder) ([id number] ) Atherosclerosis of [place] artery of both lower extremities, with unspecified presence of clinical manifestation (I70.203) Active confirmed Q7(A), Q8(2B), Q9(1B,2 C) Vital Signs Blood pressure diastolic 60 mm Hg 07/04/2025 Height 6 ft 4 in in 07/04/2025 Blood pressure systolic 116 mm Hg 07/04/2025 Weight 150 lbs 07/04/2025 BMI 18.26 kg/m2 07/04/2025 Encounters Encounter Location Date Provider Diagnosis [address] [address] 09/27/2024 Ana Perica Tinea unguium B35.1 ; Pain in right toe(s) M79.674 and Pain in left toe(s) M79.[address] [address] 12/27/2024 Ana Perica Tinea unguium B35.1 ; Pain in right toe(s) M79.674 and Pain in left toe(s) M79.[address] [address] 03/28/2025 Ana Perica Atherosclerosis of [place] artery of both lower extremities, with unspecified presence of clinical manifestation I70.203 ; Tinea unguium B35.1 ; Pain in right toe(s) M79.674 and Pain in left toe(s) M79.[address] [address] 07/04/2025 Ana Perica Atherosclerosis of [place] artery of both lower extremities, with unspecified presence of clinical manifestation I70.203 ; Tinea unguium B35.1 ; Pain in right toe(s) M79.674 and Pain in left toe(s) M79.675 Assessments Encounter Date Diagnosis (ICD Code) Assessment Notes Treatment Notes Treatment Clinical Notes Section Notes 09/27/2024 Tinea unguium (ICD-10 - B35.1) 12/27/2024 Tinea unguium (ICD-10 - B35.1) 03/28/2025 Atherosclerosis of [place] artery of both lower extremities, with unspecified presence of clinical manifestation (ICD-10 - I70.203) Q7(A), Q8(2B), Q9(1B,2C) 07/04/2025 Atherosclerosis of [place] artery of both lower extremities, with unspecified presence of clinical manifestation (ICD-10 - I70.203) Q7(A), Q8(2B), Q9(1B,2C) 07/04/2025 Tinea unguium (ICD-10 - B35.1) 12/27/2024 Pain in right toe(s) (ICD-10 - M79.674) 03/28/2025 Tinea unguium (ICD-10 - B35.1) 09/27/2024 Pain in right toe(s) (ICD-10 - M79.674) 03/28/2025 Pain in right toe(s) (ICD-10 - M79.674) 12/27/2024 Pain in left toe(s) (ICD-10 - M79.675) 09/27/2024 Pain in left toe(s) (ICD-10 - M79.675) 07/04/2025 Pain in right toe(s) (ICD-10 - M79.674) 07/04/2025 Pain in left toe(s) (ICD-10 - M79.675) 03/28/2025 Pain in left toe(s) (ICD-10 - M79.675) Plan Of Treatment Next Appt Details Provider Name:Ana garduno, 10/11/2025 09:30:00 AM, [address] [facility], [place], [address], Insurance Providers Payer Name Payer Address Payer Phone Subscriber Number Group Number Insured Name Patient Relationship to Insured Coverage Start Date Coverage End Date [facility] Medicare-[id number] [address] [place] [address] [id number] Freeman King Self - patient is the insured Medical (General) History Medical History History ICD Code Measles Mumps Chicken pox Stroke Surgical History Surgery Date(Month/Year) hernia colonoscopy Hospitalization History Reason Date(Month/Year) [facility]- Stroke 10/2024
--- OUTSIDE RECORDS SUMMARY | 2025-07-25 06:46 | XMS_ITS | Encounter Summary ---
Author Organization [facility] Address [address] [place] [address] Care Team Providers Care University Internship Name Role Phone Gloria Preston MD Primary Care Provider Encounter Details Date Type Department Care Team (Late st Contact Info) Description 11/14/2024 Lab Requisition [facility] - Main Lab [address] [facility] [place] [address] Gloria Preston MD [address] [place] [phone] Encounter for other general examination Social History [...] AM EST) WBC 4.3(L) 4.8 - 10.8 [facility] LAB HEMETOLOGY METHOD 11/14/2024 10:05 AM [facility] LAB RBC 4.00(L) 4.50 - 5.50 M/mcL LAB HEMETOLOGY METHOD 11/14/2024 10:05 AM [facility] LAB Hemoglobin 13.0(L) 13.5 - 17.5 g/dL LAB HEMETOLOGY METHOD 11/14/2024 10:05 AM [facility] LAB Hematocrit 37.6(L) 42.0 - 54.0 % LAB HEMETOLOGY METHOD 11/14/2024 10:05 AM [facility] LAB MCV 93.5 79.0 - 98.0 FL LAB HEMETOLOGY METHOD 11/14/2024 10:05 AM [facility] LAB MCH 32.3(H) 27.0 - 32.0 pcg LAB HEMETOLOGY METHOD 11/14/2024 10:05 AM [facility] LAB MCHC 34.6 32.0 - 37.0 g/dL LAB HEMETOLOGY METHOD 11/14/2024 10:05 AM [facility] LAB RDW 12.4 11.0 - 15.0 % LAB HEMETOLOGY METHOD 11/14/2024 10:05 AM [facility] LAB Platelets 368 130 - 400 K/mcL LAB HEMETOLOGY METHOD 11/14/2024 10:05 AM [facility] LAB MPV 9.7 7.0 - 11.0 FL LAB HEMETOLOGY METHOD 11/14/2024 10:05 AM [facility] LAB NRBC 0.0 <1.0 % LAB HEMETOLOGY METHOD 11/14/2024 10:05 AM [facility] LAB NRBC Absolute 0.00 <0.10 K/mcL LAB HEMETOLOGY METHOD 11/14/2024 10:05 AM [facility] LAB Neutrophils Relative 76.1 % LAB HEMETOLOGY METHOD 11/14/2024 10:05 AM [facility] LAB Lymphocytes Relative 10.3 % LAB HEMETOLOGY METHOD 11/14/2024 10:05 AM [facility] LAB Monocytes Relative 11.0 % LAB HEMETOLOGY METHOD 11/14/2024 10:05 AM [facility] LAB Eosinophils Relative 1.2 % LAB HEMETOLOGY METHOD 11/14/2024 10:05 AM [facility] LAB Basophils Relative 0.9 % LAB HEMETOLOGY METHOD 11/14/2024 10:05 AM [facility] LAB Immature Granulocytes Relative 0.5 % LAB HEMETOLOGY METHOD 11/14/2024 10:05 AM [facility] LAB Neutrophils Absolute 3.26 1.50 - 7.00 K/mcL LAB HEMETOLOGY METHOD 11/14/2024 10:05 AM [facility] LAB Lymphocytes Absolute 0.44(L) 1.00 - 5.00 K/mcL LAB HEMETOLOGY METHOD 11/14/2024 10:05 AM [facility] LAB Monocytes Absolute 0.47 0.20 - 1.00 K/mcL LAB HEMETOLOGY METHOD 11/14/2024 10:05 AM [facility] LAB Eosinophils Absolute 0.05 0.00 - 0.50 K/mcL LAB HEMETOLOGY METHOD 11/14/2024 10:05 AM [facility] LAB Basophils Absolute 0.04 0.00 - 0.20 K/mcL LAB HEMETOLOGY METHOD 11/14/2024 10:05 AM [facility] LAB Immature Granulocytes Absolute 0.02 0.00 - 0.03 K/mcL LAB HEMETOLOGY METHOD 11/14/2024 10:05 AM [facility] LAB Blood Venous blood specimen / Unknown Venipuncture / Unknown 11/14/2024 6:36 AM EST 11/14/2024 8:21 AM EST us Gloria Preston MD LAB BLOOD ORDERABLES Final Resu lt [facility] LAB [address] [place] [address], [place] [phone] * (ABNORMAL) Basic metabolic panel (11/14/2024 6:36 AM EST) Sodium 135 133 - 145 mmol/L LAB CHEMISTRY METHOD 11/14/2024 10:43 AM [facility] LAB Potassium 4.0 3.5 - 5.5 mmol/L LAB CHEMISTRY METHOD 11/14/2024 10:43 AM [facility] LAB Chloride 101 96 - 110 mmol/L LAB CHEMISTRY METHOD 11/14/2024 10:43 AM [facility] LAB CO2 24 21 - 32 mmol/L LAB CHEMISTRY METHOD 11/14/2024 10:43 AM [facility] LAB Anion Gap 10 3 - 11 LAB CHEMISTRY METHOD 11/14/2024 10:43 AM [facility] LAB Glucose 86 70 - 100 mg/dL LAB CHEMISTRY METHOD 11/14/2024 10:43 AM [facility] LAB BUN 22 5 - 25 mg/dL LAB CHEMISTRY METHOD 11/14/2024 10:43 AM [facility] LAB Creatinine 0.59(L) 0.70 - 1.30 mg/dL LAB CHEMISTRY METHOD 11/14/2024 10:43 AM [facility] LAB eGFR 96 >=60 mL/min/1. 73m2 LAB CHEMISTRY METHOD 11/14/2024 10:43 AM [facility] LAB Comment:Calculation based on the Chronic Kidney Disease Epidemiology Collaboration (CKD-EPI) equation refit without adjustment for race. BUN/Creatinine Ratio 37.3 LAB CHEMISTRY METHOD 11/14/2024 10:43 AM [facility] LAB Calcium 9.0 8.5 - 10.5 mg/dL LAB CHEMISTRY METHOD 11/14/2024 10:43 AM EST [facility] LAB Blood Venous blood specimen / Unknown Venipuncture / Unknown 11/14/2024 6:36 AM EST 11/14/2024 8:21 AM EST Gloria Preston MD LAB BLOOD ORDERABLES Final Resu lt [facility] LAB [address] [place] [address], documented in this encounter Visit Diagnoses Diagnosis Encounter for other general examination documented in this encounter Care Teams University Internship Relationship Specialty Start Date End Date Gloria Preston MD [address] [place] [phone] PCP - General Hospitalist Medicine 11/05/24 documented as of this encounter
--- OUTSIDE RECORDS SUMMARY | 2025-07-25 06:46 | XMS_ITS | Patient Health Record ---
Author Organization [facility] Address [address] [place] [address] Care Team Providers Care Data Consultant Name Role Phone Robbie Kothari MD Primary Care Provider Unavailab Robbie Alanis Unavailable [phone] Reason For Referral No Information Medications Medication [...] Problem Status W/U Status Risk Notes Problem Screening for malignant neoplasm of colon (128009428) Encounter for screening for malignant neoplasm of colon (Z12.11) Active confirmed Problem History of adenomatous polyp of colon (770208374) Hx of adenomatous colonic polyps (Z86.010) Active confirmed Problem Pre-procedure evaluation check (671364565) Pre-procedural examination (Z01.818) Active confirmed Plan Of Treatment Future Test Test Name Order Date COLONOSCOPY 06/15/2018 Insurance Providers Payer Name Payer Address Payer Phone Subscriber Number Group Number Insured Name Patient Relationship to Insured Coverage Start Date Coverage End Date MED[place]ARE OF [place] [address] [place] [id number] [phone] [id number] VAZQUEZ ROCHA Self - patient is the insured [facility] Insurance C/O [facility] [address] [place] [address] [id number] VAZQUEZ ROCHA Self - patient is the insured Medical (General) History Medical History History ICD Code Denies OR,DM,CVA,Lung disease,renal dise ase Hyperlipidemia Colonoscopy 2002-small tubul ar adenoma removed; colonoscopy in 2008 was negative--just diverticulosis and internal hemorrhoids Surgical History Surgery Date(Month/Year) Left inguinal hernia Skin cancers with skin grafts
--- OUTSIDE RECORDS SUMMARY | 2025-07-25 06:47 | XMS_ITS | Clinical Summary ---
Author Organization [address] [facility] Address [address] [place] [address] Phone Care Team Providers Care Toll Bridge Operator Name Role Phone Gloria Preston MD Primary Care Provider [phone] Surgical History Surgery Date Site/Laterality Comments HERNIA [...] complete this topic Insurance [employer] MEDICARE Care Teams Toll Bridge Operator Relationship Specialty Start Date End Date Gloria Preston MD [address] [place] [id number] PCP - General Hospitalist Medicine 11/05/24
--- OUTSIDE RECORDS SUMMARY | 2025-07-25 06:47 | XMS_ITS | Encounter Summary ---
Author Organization [facility] Address [address] [place] [address] Care Team Providers Care Chronic Condition Nurse Name Role Phone Gloria Preston MD Primary Care Provider [phone] Encounter Details Date Type Department Care Team (Late st Contact Info) Description 11/05/2024 Lab Requisition [facility] - Main Lab [address] [facility] [place] [address] Gloria Preston MD [address] [place] [phone] Encounter for other general examination Social History [...] AM EST) [facility] WBC 8.0 4.8 - 10.8 K/mcL LAB HEMETOLOGY METHOD 11/05/2024 11:21 AM [facility] LAB RBC 4.20(L) 4.50 - 5.50 M/mcL LAB HEMETOLOGY METHOD 11/05/2024 11:21 AM [facility] LAB Hemoglobin 13.8 13.5 - 17.5 g/dL LAB HEMETOLOGY METHOD 11/05/2024 11:21 AM [facility] LAB Hematocrit 39.6(L) 42.0 - 54.0 % LAB HEMETOLOGY METHOD 11/05/2024 11:21 AM [facility] LAB MCV 94.7 79.0 - 98.0 FL LAB HEMETOLOGY METHOD 11/05/2024 11:21 AM [facility] LAB MCH 33.0(H) 27.0 - 32.0 pcg LAB HEMETOLOGY METHOD 11/05/2024 11:21 AM [facility] LAB MCHC 34.8 32.0 - 37.0 g/dL LAB HEMETOLOGY METHOD 11/05/2024 11:21 AM [facility] LAB RDW 12.7 11.0 - 15.0 % LAB HEMETOLOGY METHOD 11/05/2024 11:21 AM [facility] LAB Platelets 261 130 - 400 K/mcL LAB HEMETOLOGY METHOD 11/05/2024 11:21 AM [facility] LAB MPV 10.4 7.0 - 11.0 FL LAB HEMETOLOGY METHOD 11/05/2024 11:21 AM [facility] LAB NRBC 0.0 <1.0 % LAB HEMETOLOGY METHOD 11/05/2024 11:21 AM [facility] LAB NRBC Absolute 0.00 <0.10 K/mcL LAB HEMETOLOGY METHOD 11/05/2024 11:21 AM [facility] LAB Neutrophils Relative 73.3 % LAB HEMETOLOGY METHOD 11/05/2024 11:21 AM [facility] LAB Lymphocytes Relative 10.6 % LAB HEMETOLOGY METHOD 11/05/2024 11:21 AM [facility] LAB Monocytes Relative 14.7 % LAB HEMETOLOGY METHOD 11/05/2024 11:21 AM [facility] LAB Eosinophils Relative 0.4 % LAB HEMETOLOGY METHOD 11/05/2024 11:21 AM [facility] LAB Basophils Relative 0.6 % LAB HEMETOLOGY METHOD 11/05/2024 11:21 AM [facility] LAB Immature Granulocytes Relative 0.4 % LAB HEMETOLOGY METHOD 11/05/2024 11:21 AM [facility] LAB Neutrophils Absolute 5.87 1.50 - 7.00 K/mcL LAB HEMETOLOGY METHOD 11/05/2024 11:21 AM [facility] LAB Lymphocytes Absolute 0.85(L) 1.00 - 5.00 K/mcL LAB HEMETOLOGY METHOD 11/05/2024 11:21 AM [facility] LAB Monocytes Absolute 1.18(H) 0.20 - 1.00 K/mcL LAB HEMETOLOGY METHOD 11/05/2024 11:21 AM [facility] LAB Eosinophils Absolute 0.03 0.00 - 0.50 K/mcL LAB HEMETOLOGY METHOD 11/05/2024 11:21 AM [facility] LAB Basophils Absolute 0.05 0.00 - 0.20 K/mcL LAB HEMETOLOGY METHOD 11/05/2024 11:21 AM [facility] LAB Immature Granulocytes Absolute 0.03 0.00 - 0.03 K/mcL LAB HEMETOLOGY METHOD 11/05/2024 11:21 AM [facility] LAB Blood Venous blood specimen / Unknown Venipuncture / Unknown 11/05/2024 5:51 AM EST 11/05/2024 9:43 AM EST us Gloria Preston MD LAB BLOOD ORDERABLES Final Resu lt [facility] LAB [address] [place] [address], [place] [phone] * Magnesium (11/05/2024 5:51 AM EST) [facility] Magnesium 2.0 1.9 - 2.6 mg/dL LAB CHEMISTRY METHOD 11/05/2024 11:42 AM EST [facility] LAB Blood Venous blood specimen / Unknown Venipuncture / Unknown 11/05/2024 5:51 AM EST 11/05/2024 9:43 AM EST us Gloria Preston MD LAB BLOOD ORDERABLES Final Resu lt Performing Organization Address City/[facility]/ZIP Co de Phone Number [facility] LAB [address] [place] [address], [place] [phone] * (ABNORMAL) Comprehensive metabolic panel (11/05/2024 5:51 AM EST) [facility] Sodium 133 133 - 145 mmol/L LAB CHEMISTRY METHOD 11/05/2024 11:44 AM [facility] LAB Potassium 4.1 3.5 - 5.5 mmol/L LAB CHEMISTRY METHOD 11/05/2024 11:44 AM [facility] LAB Chloride 99 96 - 110 mmol/L LAB CHEMISTRY METHOD 11/05/2024 11:44 AM [facility] LAB CO2 24 21 - 32 mmol/L LAB CHEMISTRY METHOD 11/05/2024 11:44 AM [facility] LAB Anion Gap 10 3 - 11 LAB CHEMISTRY METHOD 11/05/2024 11:44 AM [facility] LAB Glucose 92 70 - 100 mg/dL LAB CHEMISTRY METHOD 11/05/2024 11:44 AM [facility] LAB BUN 18 5 - 25 mg/dL LAB CHEMISTRY METHOD 11/05/2024 11:44 AM [facility] LAB Creatinine 0.54(L) 0.70 - 1.30 mg/dL LAB CHEMISTRY METHOD 11/05/2024 11:44 AM [facility] LAB eGFR 98 >=60 mL/min/1. 73m2 LAB CHEMISTRY METHOD 11/05/2024 11:44 AM [facility] LAB Comment:Calculation based on the Chronic Kidney Disease Epidemiology Collaboration (CKD-EPI) equation refit without adjustment for race. BUN/Creatinine Ratio 33.3 LAB CHEMISTRY METHOD 11/05/2024 11:44 AM [facility] LAB Calcium 9.0 8.5 - 10.5 mg/dL LAB CHEMISTRY METHOD 11/05/2024 11:44 AM [facility] LAB AST (SGOT) 17 10 - 42 unit/L LAB CHEMISTRY METHOD 11/05/2024 11:44 AM [facility] LAB ALT (SGPT) 19 10 - 60 unit/L LAB CHEMISTRY METHOD 11/05/2024 11:44 AM [facility] LAB Alkaline Phosphatase 83 42 - 121 unit/L LAB CHEMISTRY METHOD 11/05/2024 11:44 AM [facility] LAB Total Protein 6.6 6.0 - 8.0 g/dL LAB CHEMISTRY METHOD 11/05/2024 11:44 AM [facility] LAB Albumin 2.8(L) 3.2 - 5.0 g/dL LAB CHEMISTRY METHOD 11/05/2024 11:44 AM [facility] LAB Total Bilirubin 1.1 0.0 - 1.4 mg/dL LAB CHEMISTRY METHOD 11/05/2024 11:44 AM [facility] LAB Blood Venous blood specimen / Unknown Venipuncture / Unknown 11/05/2024 5:51 AM EST 11/05/2024 9:43 AM EST us Rami A Ashkar MD LAB BLOOD ORDERABLES Final Resu lt [facility] LAB [address] [place] [address], documented in this encounter Visit Diagnoses Diagnosis Encounter for other general examination documented in this encounter Care Teams Chronic Condition Nurse Relationship Specialty Start Date End Date Gloria Preston MD [address] [place] [phone] PCP - General Hospitalist Medicine 11/05/24 documented as of this encounter
--- OUTSIDE RECORDS SUMMARY | 2025-07-25 06:47 | XMS_ITS | Patient Health Record ---
Author Organization Robbie Kothari III, MD Address [address] [place] [address] Care Team Providers Care Agriculture Department Chair Name Role Phone Dr. Robbie Kothari III Primary Care Provider [phone] Allergies Allergen (clinical drug ingredient) Drug/Non Drug Allergy documented on EMR Reaction Allergy Type Onset Date Status No Known Drug Allergy Unknown Drug Allergy Active No Known Food Allergy Unknown Drug Allergy Active Results Component Value Reference Range Notes Hold Lt Blue - Possible Coag Reviewed date:10/30/2024 09:55:19 AM Interpretation: Performing Lab:[facility], [address] [place] [phone] Notes/Report: Hold Lt Blue - Possible Coag SEE NOTE Specimen will be held untested for 4 hours. Call Hematology if testing is desired. Comprehensive Met. Panel Reviewed date:10/30/2024 09:55:19 AM Interpretation: Performing Lab:[facility], [address] [place] [phone] Notes/Report: Sodium 131 135-145 mmol/L Potassium 4.2 [...] Magnesium Reviewed date:10/30/2024 09:55:19 AM Interpretation: Performing Lab:[address] [address] Notes/Report: Magnesium 1.5 1.6-2.6 mg/dL Troponin-I High Sensitivity Reviewed date:10/30/2024 09:55:19 AM Interpretation: Performing Lab:[facility], [address] [place] [phone] Notes/Report: Troponin-I High Sensitivity 3.1 <3.5-35.0 ng/L The Duran high sensitivity Troponin-I results should be used in conjunction with other diagnostic information such as ECG, clinical observations and information, and patient symptoms to aid in the diagnosis of [place]. SARS-CoV2/FLU/RSV Reviewed date:10/30/2024 09:55:19 AM Interpretation: Performing Lab:[address] [address] Notes/Report: Influenza A PCR NEGATIVE Negative Influenza [...] by authorized laboratories. Testing performed on the [employer] GeneXpert utilizing real-time RT-PCR. All SARS CoV2 and positive influenza A/B results are reported to [facility]. CT head for stroke Reviewed date:10/30/2024 09:55:19 AM Interpretation: Performing Lab: Notes/Report: [address] [address] [address] Scan Report Signed Patient: Freeman King MR#: [id number] [birth year] : 1940 Acct:[id number] Age/Sex: 84 / M ADM Date: 10/27/24 Loc: HO.ED Attending Dr: Ordering Physician: Alejandrina Mazariegos Date of Service: 10/27/24 Procedure(s): CT head for STROKE Accession Number(s): [id number] cc: Robbie Kothari MD; Alejandrina Mazariegos Report Number: [id number]: Total DLP = 799.00 mGy-cm EXAMINATION: CT [...] lobe. There is resultant mass effect and gzgy-sd-bofrg midline shift of 3 mm. There is [...] atrium. 3. There is 3 mm of bgre-di-iyoan midline shift. No impending herniation at this time. This critical result was discussed with Alejandrina Mazariegos at 12:11 PM, on 10/27/2024 via phone call. Electronically signed by: Zohaib Brown MD 10/27/2024 12:14 PM [facility] Dictated By: Zohaib Brown MD Signed By: <Electronically signed by Zohaib Brown MD in OV> 10/27/24 1214 DD/ 1148 TD/TT: 10/27/24 1156 Interior Wirer: [place] [address] [address] Scan Report Signed Patient: Jeremiah King MR#: [id number] 30 : 1940 Acct:[id number] Age/Sex: 84 / M ADM Date: 10/27/24 Loc: HO.ED Attending Dr: Ordering Physician: Alejandrina Mazariegos Date of Service: 10/27/24 Procedure(s): CT hea d for STROKE Accession Number(s): [id number] cc: Robbie Kothari MD; Alejandrina Mazariegos Report [...] There is resultant m ass effect and tdjw-fp-hdwwl midline shift of 3 mm. There is [...] atrium. 3. There is 3 mm of visc-ms-pvevx midline shift. No impending herniation at this time. This critical result was discussed with Alejandrina Mazariegos at 12:11 PM, on 10/27/2024 via phone call. Electronically gurpreet d by: Zohaib Brown MD 10/27/2024 12:14 PM [facility] Dictated By: Zohaib Brown MD Signed By: <Electronically signed by Zohaib Brown MD in OV> 10/27/24 1214 DD/ 1148 TD/TT: 10/27/24 1156 Interior Wirer: CT cervical spine wo con Reviewed date:10/30/2024 09:55:19 AM Interpretation: Performing Lab: Notes/Report: [address] [address] [address] Scan Report Signed Patient: Freeman King MR#: [id number] [birth year] : 1940 Acct:[id number] Age/Sex: 84 / M ADM Date: 10/27/24 Loc: HO.ED Attending Dr: Ordering Physician: Alejandrina Mazariegos Date of Service: 10/27/24 Procedure(s): CT cervical spine wo IV con Accession Number(s): [id number] cc: Robbie Kothari MD; Alejandrina Mazariegos Report Number: [id number]: Total DLP = 376.00 mGy-cm EXAMINATION: CT [...] by: Zohaib Brown MD 10/27/2024 02:23 PM [facility] Dictated By: Zohaib Brown MD Signed By: <Electronically signed by Zohaib Brown MD in OV> 10/27/24 1423 DD/ 1212 TD/TT: 10/27/24 1334 Interior Wirer: [place] [address] [address] Scan Report Signed Patient: Jeremiah King MR#: [id number] [birth year] : 1940 Acct:[id number] Age/Sex: 84 / M ADM Date: 10/27/24 Loc: .ED Attending Dr: Ordering Physician: Alejandrina Mazariegos Date of Service: 10/27/24 Procedure(s): CT cer vical spine wo IV con Accession Number(s): [id number] cc: Robbie Kothari MD; Alejandrina Mazariegos Report [...] by: Zohaib Brown MD 10/27/2024 02:23 PM [facility] Dictated By: Zohaib Brown MD Signed By: <Electronically signed by Zohaib Brown MD in OV> 10/27/24 1423 DD/ 1212 TD/TT: 10/27/24 1334 Interior Wirer: XR chest 1V Reviewed date:10/30/2024 09:55:19 AM Interpretation: Performing Lab: Notes/Report: [address] [address] XRay Report Signed Patient: Freeman King MR#: [id number] 30 : 1940 Acct:[id number] Age/Sex: 84 / M ADM Date: 10/27/24 Loc: HO.ED Attending Dr: Ordering Physician: Alejandrina Mazariegos Date of Service: 10/27/24 Procedure(s): XR chest 1V Accession Number(s): [id number] cc: Robbie Kothari MD; Alejandrina Mazariegos EXAMINATION: [...] by: Zohaib Brown MD 10/27/2024 01:41 PM [facility] Dictated By: Zohaib Brown MD Signed By: <Electronically signed by Zohaib Brown MD in OV> 10/27/24 1341 DD/ 1127 TD/TT: 10/27/24 1328 Interior Wirer: [address] [address] XRay Report Signed Patient: Jeremiah King MR#: [id number] [birth year] : 1940 Acct:[id number] Age/Sex: 84 / M ADM Date: 10/27/24 Loc: HO.ED Attending Dr: Ordering Physician: Alejandrina Mazariegos Date of Service: 10/27/24 Procedure(s): XR chest 1V Accession Number(s): [id number] cc: Robbie Kothari MD; Alejandrina Mazariegos EXAMINATION: [...] by: Zohaib Brown MD 10/27/2024 01:41 PM [facility] Dictated By: Zohaib Brown MD Signed By: <Electronically signed by Zohaib Brown MD in OV> 10/27/24 1341 DD/ 1127 TD/TT: 10/27/24 1328 Interior Wirer: XR chest 2V Reviewed date:12/16/2024 03:30:40 PM Interpretation: Performing Lab: Notes/Report: [address] [address] XRay Report Signed Patient: Freeman King MR#: [id number] 30 : 1940 Acct:[id number] Age/Sex: 84 / M ADM Date: 12/02/24 Loc: HO.XRAY Attending : Robbie Kothari MD Ordering Physician: Denilson Minor MD Date of Service: 12/02/24 Procedure(s): XR chest 2V Accession Number(s): [id number] cc: Robbie Kothari MD; Denilson Minor MD [...] 12/02/24 1150 DD/ 1042 TD/TT: 12/02/24 1052 Interior Wirer: [place] [address] XRay Report Signed Patient: Jeremiah King MR#: [id number] [birth year] : 1940 Acct:[id number] Age/Sex: 84 / M ADM Date: 12/02/24 Loc: JILLIAN Attending Dr: Robbie Kothari MD Ordering Physician: Denilson Minor MD Date of Service: 12/02/24 Procedure(s): XR chest 2V Accession Number(s): [id number] cc: Robbie Kothari MD; Denilson Minor MD [...] 12/02/24 1150 DD/ 1042 TD/TT: 12/02/24 1052 Interior Wirer: Complete Blood Count Auto Di ff Reviewed date:12/16/2024 03:30:40 PM Interpretation: Performing Lab:[facility], [address] [place] [phone] Notes/Report: White Blood Count 5.2 4.8-10.8 X10*3/uL [...] Panel Reviewed date:12/16/2024 03:30:40 PM Interpretation: Performing Lab:[address] [address] Notes/Report: Sodium 136 135-145 mmol/L Potassium 3.9 [...] Magnesium Reviewed date:12/16/2024 03:30:40 PM Interpretation: Performing Lab:[facility], [address] [place] [phone] Notes/Report: Magnesium 1.8 1.6-2.6 mg/dL XR chest 2V Reviewed date:12/16/2024 03:30:40 PM Interpretation: Performing Lab: Notes/Report: [address] [address] XRay Report Signed Patient: Freeman King MR#: [id number] [birth year] : 1940 Acct:[id number] Age/Sex: 84 / M ADM Date: 12/16/24 Loc: JILLIAN Attending Dr: Denilson Minor MD Ordering Physician: Denilson Minor MD Date of Service: 12/16/24 Procedure(s): XR chest 2V Accession Number(s): [id number] cc: Robbie Kothari MD; Denilson Minor MD [...] 12/16/24 1138 DD/ 1048 TD/TT: 12/16/24 1110 Interior Wirer: [place] [address] XRay Report Signed Patient: Jeremiah King MR#: [id number] [birth year] : 1940 Acct:[id number] Age/Sex: 84 / M ADM Date: 12/16/24 Loc: .KIRTIAY Attending Dr: Denilson Minor MD Ordering Physician: Denilson Minor MD Date of Service: 12/16/24 Procedure(s): XR chest 2V Accession Number(s): [id number] cc: Rbobie Kothari MD; Denilson Minor MD EXAMINATION: XR [...] 12/16/24 1138 DD/ 1048 TD/TT: 12/16/24 1110 Interior Wirer: Complete Blood Count Auto Di ff Reviewed date:12/30/2024 08:37:25 PM Interpretation: Performing Lab:[facility], [address] [place] [phone] Notes/Report: White Blood Count 6.5 4.8-10.8 X10*3/uL [...] NRBC Abs Auto 0.000 0.0-0.012 X10*3/uL Comprehensive [place]. Panel Fa Reviewed date:12/30/2024 08:37:25 PM Interpretation: Performing Lab:[address] [address] Notes/Report: Sodium 135 135-145 mmol/L Potassium 4.2 [...] Panel Reviewed date:12/30/2024 08:37:25 PM Interpretation: Performing Lab:[facility], [address] [place] [address] Notes/Report: Triglycerides 84 <150 mg/dL Desirable Triglyceride: [...] Antigen Reviewed date:12/30/2024 08:37:25 PM Interpretation: Performing Lab:[facility], [address] [place] [address] Notes/Report: Prostate Specific Antigen 2.95 <0.05-4.0 ng/mL PSA methodology: Inspivia Alinity i Chemiluminescent Microparticle Immunoassay (CMIA) Complete Blood Count Auto Di ff Reviewed date:12/30/2024 08:37:25 PM Interpretation: Performing Lab:[facility], [address] [place] [phone] Notes/Report: White Blood Count 9.1 4.8-10.8 X10*3/uL [...] te Reviewed date:12/30/2024 08:37:25 PM Interpretation: Performing Lab:[facility], [address] [place] [phone] Notes/Report: Erythrocyte Sedimentation Rate 60 0-15 MM/HR Patients with polycythemia and many hemoglobin abnormalities may have depressed sed rates whereas patients with anemia may have elevated sed rates. Partial Thromboplastin Time Reviewed date:12/30/2024 08:37:25 PM Interpretation: Performing Lab:[facility], [address] [place] [phone] Notes/Report: Partial Thromboplastin Time 33.0 26.0-36.8 SEC For information regarding the monitoring of direct thrombin inhibitors, please refer to Pharmacy. Comprehensive Met. Panel Reviewed date:12/30/2024 08:37:25 PM Interpretation: Performing Lab:[facility], [address] [place] [phone] Notes/Report: Sodium 132 135-145 mmol/L Potassium 4.9 [...] Acid Reviewed date:12/30/2024 08:37:25 PM Interpretation: Performing Lab:[facility], [address] [place] [phone] Notes/Report: Lactic Acid 1.0 0.5-2.0 mmol/L Uric Acid Reviewed date:12/30/2024 08:37:25 PM Interpretation: Performing Lab:[facility], [address] [place] [phone] Notes/Report: Uric Acid 4.1 3.4-7.0 mg/dL Magnesium Reviewed date:12/30/2024 08:37:25 PM Interpretation: Performing Lab:[facility], [address] [place] [phone] Notes/Report: Magnesium 1.7 1.6-2.6 mg/dL Troponin-I High Sensitivity Reviewed date:12/30/2024 08:37:25 PM Interpretation: Performing Lab:[facility], [address] [place] [phone] Notes/Report: Troponin-I High Sensitivity 3.4 <3.5-35.0 ng/L The Duran high sensitivity Troponin-I results should be used in conjunction with other diagnostic information such as ECG, clinical observations and information, and patient symptoms to aid in the diagnosis of [place]. C Reactive Protein Reviewed date:12/30/2024 08:37:25 PM Interpretation: Performing Lab:[facility], [address] [place] [phone] Notes/Report: C Reactive Protein 4.85 < or = 0.50 mg/dL B Type Natriuretic Peptide Reviewed date:12/30/2024 08:37:25 PM Interpretation: Performing Lab:[facility], [address] [place] [phone] Notes/Report: B Type Natriuretic Peptide 82 <100 pg/mL Lipase Reviewed date:12/30/2024 08:37:25 PM Interpretation: Performing Lab:[facility], [address] [place] [phone] Notes/Report: Lipase 43 8-78 U/L UA CC w/rflx Micro + Cult Reviewed date:12/30/2024 08:37:25 PM Interpretation: Performing Lab:[facility], [address] [place] [phone] Notes/Report: Urine, Clean Catch Color Urine Yellow Appearance Urine Clear PH 7.5 5.0-9.0 Glucose Urine UA Negative Negative mg/dL Urine Blood Negative Negative Specific Effie - Urine >= 1.030 1.005-1.025 Urine Protein Negative Neg-Trace mg/dL Urine Ketones Negative Negative mg/dL Nitrite Urine Negative Negative Leukocyte Esterase Urine Negative Negative SARS-CoV2/FLU/RSV Reviewed date:12/30/2024 08:37:25 PM Interpretation: Performing Lab:[address] [phone] Notes/Report: Influenza A PCR NEGATIVE Negative Influenza [...] by authorized laboratories. Testing performed on the [employer] GeneXpert utilizing real-time RT-PCR. All SARS CoV2 and positive influenza A/B results are reported to [facility]. Blood Culture (First) Reviewed date:01/14/2025 08:40:47 PM Interpretation: Performing Lab:[address] [address] Notes/Report: Blood Culture (First) No growth after 5 days. Blood Culture (Second) Reviewed date:01/14/2025 08:40:47 PM Interpretation: Performing Lab:[facility], [address] [place] [phone] Notes/Report: Blood Culture (Second) No growth after [address] angio head neck Reviewed date:12/30/2024 08:37:25 PM Interpretation: Performing Lab: Notes/Report: [address] [address] [address] Scan Report Signed Patient: Freeman King MR#: [id number] [birth year] : 1940 Acct:[id number] Age/Sex: 84 / M ADM Date: 12/30/24 Loc: HO.ED Attending Dr: Ordering Physician: Rahul Zamora MD Date of Service: 12/30/24 Procedure(s): CT angio head neck Accession Number(s): [id number] cc: Robbie Kothari MD; Rahul Zamora MD Report Number: [id number]: Total DLP = 1652.00 mGy-cm EXAMINATION: CTA [...] flap. Superior cerebellar arteries are patent. field evidence technician: Right P1 segment: Hypoplastic/atretic. No focal stenosis. [...] 12/30/24 1225 DD/ 1133 TD/TT: 12/30/24 1155 Interior Wirer: [address] [address] [address] Scan Report Signed Patient: Jeremiah King MR#: [id number] [birth year] : 1940 Acct:[id number] Age/Sex: 84 / M ADM Date: 12/30/24 Loc: HO.ED Attending Dr: Ordering Physician: Rahul Zamora MD Date of Service: 12/30/24 Procedure(s): CT ang io head neck Accession Number(s): [id number] cc: Robbie Kothari MD; Rahul Zamora MD [...] flap. Superior cerebellar arteries are patent. field evidence technician: Right P1 segment: Hypoplastic/atretic. No focal stenosis. [...] 12/30/24 1225 DD/ 1133 TD/TT: 12/30/24 1155 Interior Wirer: XR wrist RT 2V Reviewed date:12/30/2024 08:37:25 PM Interpretation: Performing Lab: Notes/Report: [address] [address] XRay Report Signed Patient: Freeman King MR#: [id number] [birth year] : 1940 Acct:[id number] Age/Sex: 84 / M ADM Date: 12/30/24 Loc: HO.ED Attending Dr: Ordering Physician: Rahul Zamora MD Date of Service: 12/30/24 Procedure(s): XR wrist RT 2V Accession Number(s): [id number] cc: Robbie Kothari MD; Rahul Zamora MD [...] 12/30/24 1300 DD/ 1243 TD/TT: 12/30/24 1255 Interior Wirer: [address] [place] [address] XRay Report Signed Patient: Jeremiah King MR#: [id number] 30 : 1940 Acct:[id number] Age/Sex: 84 / M ADM Date: 12/30/24 Loc: .ED Attending Dr: Ordering Physician: Rahul Zamora MD Date of Service: 12/30/24 Procedure(s): XR wri st RT 2V Accession Number(s): [id number] cc: Robbie Kothari MD; Rahul Zamora MD [...] 12/30/24 1300 DD/ 1243 TD/TT: 12/30/24 1255 Interior Wirer: XR chest 1V Reviewed date:12/30/2024 08:37:25 PM Interpretation: Performing Lab: Notes/Report: [address] [address] XRay Report Signed Patient: Freeman King MR#: [id number] 30 : 1940 Acct:[id number] Age/Sex: 84 / M ADM Date: 12/30/24 Loc: .ED Attending Dr: Ordering Physician: Rahul Zamora MD Date of Service: 12/30/24 Procedure(s): XR chest 1V Accession Number(s): [id number] cc: Robbie Kothari MD; Rahul Zamora MD [...] 12/30/24 1210 DD/ 1031 TD/TT: 12/30/24 1149 Interior Wirer: [place] [address] XRay Report Signed Patient: Jeremiah King MR#: [id number] [birth year] : 1940 Acct:[id number] Age/Sex: 84 / M ADM Date: 12/30/24 Loc: .ED Attending Dr: Ordering Physician: Rahul Zamora MD Date of Service: 12/30/24 Procedure(s): XR chest 1V Accession Number(s): [id number] cc: Robbie Kothari MD; Rahul Zamora MD [...] 12/30/24 1210 DD/ 1031 TD/TT: 12/30/24 1149 Interior Wirer: XR hand RT min 3V Reviewed date:12/30/2024 08:37:25 PM Interpretation: Performing Lab: Notes/Report: [address] [address] XRay Report Signed Patient: Freeman King MR#: [id number] [birth year] : 1940 Acct:[id number] Age/Sex: 84 / M ADM Date: 12/30/24 Loc: .ED Attending Dr: Ordering Physician: Rahul Zamora MD Date of Service: 12/30/24 Procedure(s): XR hand RT min 3V Accession Number(s): [id number] cc: Robbie Kothari MD; Rahul Zamora MD [...] 12/30/24 1301 DD/ 1243 TD/TT: 12/30/24 1255 Interior Wirer: [address] [address] XRay Report Signed Patient: Jeremiah King MR#: [id number] [birth year] : 1940 Acct:[id number] Age/Sex: 84 / M ADM Date: 12/30/24 Loc: HO.ED Attending Dr: Ordering Physician: Rahul Zamora MD Date of Service: 12/30/24 Procedure(s): XR camacho d RT min 3V Accession Number(s): [id number] cc: Robbie Kothari MD; Rahul Zamora MD [...] 12/30/24 1301 DD/ 1243 TD/TT: 12/30/24 1255 Interior Wirer: Renae Coates Hematolo gy Reviewed date:01/01/2025 10:45:53 AM Interpretation: Performing Lab:[facility], [address] [place] [phone] Notes/Report: Hold Lav - Possible Hematology SEE NOTE Specimen will be held untested for 8 hours. Call Hematology if testing is desired. Basic Metabolic Panel Reviewed date:01/01/2025 10:45:53 AM Interpretation: Performing Lab:[facility], [address] [place] [address] Notes/Report: Sodium 135 135-145 mmol/L Potassium 4.2 [...] ff Reviewed date:01/14/2025 08:40:47 PM Interpretation: Performing Lab:[facility], [address] [place] [phone] Notes/Report: White Blood Count 7.5 4.8-10.8 X10*3/uL [...] Coag Reviewed date:01/14/2025 08:40:47 PM Interpretation: Performing Lab:[facility], [address] [place] [phone] Notes/Report: Hold Lt Blue - Possible Coag SEE NOTE Specimen will be held untested for 4 hours. Call Hematology if testing is desired. Liver Panel Reviewed date:01/14/2025 08:40:47 PM Interpretation: Performing Lab:[facility], [address] [place] [phone] Notes/Report: Bilirubin Total 1.0 0.0-1.0 mg/dL Bilirubin Direct 0.3 0.0-0.5 mg/dL Aspartate Amino Transferase 28 5-37 U/L Slight Hemolysis.Interpret result with caution. Alanine Aminotransferase 12 0-40 U/L Total Protein 7.4 6.5-8.0 g/dL Albumin Level 3.6 3.5-5.0 g/dL Alkaline Phosphatase 70 39-117 U/L Basic Metabolic Panel Reviewed date:01/14/2025 08:40:47 PM Interpretation: Performing Lab:[facility], [address] [place] [phone] Notes/Report: Sodium 130 135-145 mmol/L Potassium 4.4 [...] Acid Reviewed date:01/14/2025 08:40:47 PM Interpretation: Performing Lab:[facility], [address] [place] [phone] Notes/Report: Lactic Acid 0.8 0.5-2.0 mmol/L Magnesium Reviewed date:01/14/2025 08:40:47 PM Interpretation: Performing Lab:[address] [address] Notes/Report: Magnesium 1.8 1.6-2.6 mg/dL Troponin-I High Sensitivity Reviewed date:01/14/2025 08:40:47 PM Interpretation: Performing Lab:[address] [address] Notes/Report: Troponin-I High Sensitivity 3.3 <3.5-35.0 ng/L The Duran high sensitivity Troponin-I results should be used in conjunction with other diagnostic information such as ECG, clinical observations and information, and patient symptoms to aid in the diagnosis of [place]. C Reactive Protein Reviewed date:01/14/2025 08:40:47 PM Interpretation: Performing Lab:[address] [address] Notes/Report: C Reactive Protein 13.61 < or = 0.50 mg/dL B Type Natriuretic Peptide Reviewed date:01/14/2025 08:40:47 PM Interpretation: Performing Lab:[facility], [address] [place] [phone] Notes/Report: B Type Natriuretic Peptide 53 <100 pg/mL Procalcitonin Reviewed date:01/14/2025 08:40:47 PM Interpretation: Performing Lab:[facility], [address] [place] [phone] Notes/Report: Procalcitonin 0.04 Procalcitonin (PCT) Reference Range: [...] results from different laboratories and methodologies. References: [employer]/Society of Critical Care [...] 510(k) substantial equivalence determination decision summary for [facility]. http://www.accessda ta.fda.fov/cdrh_doc s/reviews/F048775.p df. Published September 2004. Accessed February 2017. Gram stain Reviewed date:01/17/2025 05:36:47 AM Interpretation: Performing Lab:[facility], [address] [place] [phone] Notes/Report: Gram stain Gram stain results: Gram stain 4+ polys Gram stain 1+ epithelial cells Gram stain 4+ red blood cells Gram stain 1+ Gram-positive cocci UA CC w/rflx Micro + Cult Reviewed date:01/14/2025 08:40:47 PM Interpretation: Performing Lab:[address] [address] Notes/Report: Urine, Catheterized Color Urine Yellow Appearance Urine Clear PH 6.0 5.0-9.0 Glucose Urine UA Negative Negative mg/dL Urine Blood Negative Negative Specific [place] - Urine 1.020 1.005-1.025 Urine Protein Negative Neg-Trace mg/dL Urine Ketones Negative Negative mg/dL Nitrite Urine Negative Negative Leukocyte Esterase Urine Negative Negative SARS-CoV2/FLU/RSV Reviewed date:01/14/2025 08:40:47 PM Interpretation: Performing Lab:[address] [address] Notes/Report: Influenza A PCR NEGATIVE Negative Influenza [...] by authorized laboratories. Testing performed on the [employer]FCO GeneXpert utilizing real-time RT-PCR. All SARS CoV2 and positive influenza A/B results are reported to [facility]. Blood Culture (First) Reviewed date:02/12/2025 08:15:10 PM Interpretation: Performing Lab:[facility], [address] [place] [phone] Notes/Report: Blood Culture (First) No growth after 5 days. Blood Culture (Second) Reviewed date:02/12/2025 08:15:10 PM Interpretation: Performing Lab:[address] [address] Notes/Report: Blood Culture (Second) No growth after 5 days. Sputum Culture Reviewed date:01/17/2025 05:36:47 AM Interpretation: Performing Lab:[facility], [address] [place] [phone] Notes/Report: Sputum Culture BAP Sputum Culture 2+ Mixed respiratory ramon. CT chest wo con Reviewed date:01/14/2025 08:40:47 PM Interpretation: Performing Lab: Notes/Report: [address] [address] [address] Scan Report Signed Patient: Freeman King MR#: [id number] 30 : 1940 Acct:[id number] Age/Sex: 84 / M ADM Date: 01/13/25 Loc: .S3 358-[address]: Tommy Rodriguez MD Ordering Physician: Linette Brown Date of Service: 01/13/25 Procedure(s): CT chest wo IV con Accession Number(s): [id number] cc: Linette Brown; Robbie Kothari MD Report Number: [id number]: Total DLP = 336.00 mGy-cm CLINICAL HISTORY: Pt with hemoptysis, ?RUL and LLL pneumonia CT chest without contrast Comparison: CT/REG/KS/SR - CT CHEST WO IV CON - [...] OV> 01/13/25 174 DD/ 45 TD/TT: 01/13/251745 Interior Wirer: [address] [address] [address] Scan Report Signed Patient: Jeremiah King MR#: [id number] [birth year] : 1940 Acct:[id number] Age/Sex: 84 / M ADM Date: 01/13/25 Loc: HO.S3 358-[address]: Tommy Rodriguez MD Ordering Physician: Linette Brown Date of Service: 01/13/25 Procedure(s): CT [address] wo IV con Accession Number(s): [id number] cc: Linette Brown; Robbie Kothari MD Report [...] by Richa Cerda MD in OV> 01/13/25 1747 DD/ 1746 TD/TT: 01/13/25 174 Interior Wirer: CT head/brain wo con Reviewed date:01/14/2025 08:40:47 PM Interpretation: Performing Lab: Notes/Report: [address] [address] [address] Scan Report Signed Patient: Freeman King MR#: [id number] [birth year] : 1940 Acct:[id number] Age/Sex: 84 / M ADM Date: 01/13/25 Loc: HO.ED Attending Dr: Ordering Physician: Taras Spencer MD Date of Service: 01/13/25 Procedure(s): CT head/brain wo IV con Accession Number(s): [id number] cc: Robbie Kothari MD; Taras Spencer MD Report Number: [id number]: Total DLP = 726.00 mGy-cm EXAMINATION: CT [...] to small vessel disease. Electronically signed by: Lázaor Ely MD 01/13/2025 12:35 PM EDT Dictated By: Lázaro Elias MD Signed By: <Electronically signed by Lázaro Monique MD in OV> 01/13/25 1235 DD/ 1215 TD/TT: 01/13/25 1226 Interior Wirer: [address] [address] [address] Scan Report Signed Patient: Jeremiah King MR#: [id number] [birth year] : 1940 Acct:[id number] Age/Sex: 84 / M ADM Date: 01/13/25 Loc: HO.ED Attending Dr: Ordering Physician: Taras Spencer MD Date of Service: 01/13/25 Procedure(s): CT head/brain wo IV con Accession Number(s): [id number] cc: Robbie Kothari MD; Taras Spencer MD [...] 01/13/25 1235 DD/ 1215 TD/TT: 01/13/25 1226 Interior Wirer: XR chest 1V Reviewed date:01/14/2025 08:40:47 PM Interpretation: Performing Lab: Notes/Report: [address] [address] XRay Report Signed Patient: Freeman King MR#: [id number] 30 : 1940 Acct:[id number] Age/Sex: 84 / M ADM Date: 01/13/25 Loc: HO.ED Attending Dr: Ordering Physician: Taras Spencer MD Date of Service: 01/13/25 Procedure(s): XR chest 1V Accession Number(s): [id number] cc: Robbie Kothari MD; Taras Spencer MD [...] 01/13/25 1228 DD/ 1222 TD/TT: 01/13/25 1222 Interior Wirer: [address] [address] XRay Report Signed Patient: Jeremiah King MR#: [id number] [birth year] : 1940 Acct:[id number] Age/Sex: 84 / M ADM Date: 01/13/25 Loc: HO.ED Attending Dr: Ordering Physician: Taras Spencer MD Date of Service: 01/13/25 Procedure(s): XR chest 1V Accession Number(s): [id number] cc: Robbie Kothari MD; Taras Spencer MD [...] 01/13/25 1228 DD/ 1222 TD/TT: 01/13/25 1222 Interior Wirer: Hold Lav - Possible Hematolo gy Reviewed date:01/14/2025 08:40:46 PM Interpretation: Performing Lab:[facility], [address] [place] [address] Notes/Report: Hold Lav - Possible Hematology SEE NOTE Specimen will be held untested for 8 hours. Call Hematology if testing is desired. Basic Metabolic Panel Reviewed date:01/14/2025 08:40:47 PM Interpretation: Performing Lab:[facility], [address] [place] [address] Notes/Report: Sodium 130 135-145 mmol/L Potassium 4.0 [...] Urine Reviewed date:01/14/2025 08:40:47 PM Interpretation: Performing Lab:[address] [address] Notes/Report: Osmolality Urine 855 360-5787 mosm/kg Sodium Urine Random Reviewed date:01/14/2025 08:40:47 PM Interpretation: Performing Lab:[address] [address] Notes/Report: Sodium Urine Random 93.0 Vancomycin Random Reviewed date:01/14/2025 08:40:47 PM Interpretation: Performing Lab:[address] [address] Notes/Report: Vancomycin Random 9.3 15-20 mcg/mL Complete Blood Count Auto Di ff Reviewed date:01/15/2025 06:45:37 AM Interpretation: Performing Lab:[address] [address] Notes/Report: White Blood Count 5.0 4.8-10.8 X10*3/uL [...] Hematocrit Reviewed date:01/17/2025 05:36:47 AM Interpretation: Performing Lab:[address] [address] Notes/Report: Hemoglobin 11.9 14.0-18.0 g/dl Hematocrit 33.2 42.0-52.0 % Basic Metabolic Panel Reviewed date:01/15/2025 06:45:37 AM Interpretation: Performing Lab:[address] [address] Notes/Report: Sodium 135 135-145 mmol/L Potassium 3.8 [...] gy Reviewed date:01/17/2025 05:36:47 AM Interpretation: Performing Lab:[address] [address] Notes/Report: Hold Lav - Possible Hematology SEE NOTE Specimen will be held untested for 8 hours. Call Hematology if testing is desired. Creatinine Reviewed date:01/17/2025 05:36:47 AM Interpretation: Performing Lab:[address] [address] Notes/Report: Creatinine 0.77 0.5-1.4 mg/dL Creatinine Clr [...] ff Reviewed date:02/26/2025 07:54:27 AM Interpretation: Performing Lab:[address] [address] Notes/Report: White Blood Count 6.6 4.8-10.8 X10*3/uL [...] NRBC Abs Auto 0.000 0.0-0.012 X10*3/uL Comprehensive [place]. Panel Fa st Reviewed date:02/26/2025 07:54:27 AM Interpretation: Performing Lab:[facility], [address] [place] [address] Notes/Report: Sodium 135 135-145 mmol/L Potassium 4.3 [...] Panel Reviewed date:02/26/2025 07:54:27 AM Interpretation: Performing Lab:[facility], [address] [place] [address] Notes/Report: Triglycerides 58 <150 mg/dL Desirable Triglyceride: [...] 07:54:27 AM Interpretation: Performing Lab: Notes/Report: [address] [address] XRay Report Signed Patient: Freeman King MR#: [id number] [birth year] : 1940 Acct:[id number] Age/Sex: 85 / M ADM Date: 02/23/25 Loc: HO.KIRTIAY Attending Dr: Denilson Minor MD Ordering Physician: Denilson Minor MD Date of Service: 02/23/25 Procedure(s): XR chest 2V Accession Number(s): [id number] cc: Robbie Kothari MD; Denilson Minor MD [...] signed by Lázaro Monique MD in OV> 02/23/2553 DD/ 6 TD/TT: 02/23/25835 Interior Wirer: [place] [address] XRay Report Signed Patient: Jeremiah King MR#: [id number] [birth year] : 1940 Acct:[id number] Age/Sex: 85 / M ADM Date: 02/23/25 Loc: HO.XRAY Attending Dr: Denilson Minor MD Ordering Physician: Denilson Minor MD Date of Service: 02/23/25 Procedure(s): XR chest 2V Accession Number(s): [id number] cc: Robbie Kothari MD; Denilson Mionr MD [...] 02/23/25 0853 DD/ 6 TD/TT: 02/23/25 0836 Interior Wirer: XR chest 2V Reviewed date:04/15/2025 07:11:05 PM Interpretation: Performing Lab: Notes/Report: [address] [address] XRay Report Signed Patient: Freeman King MR#: [id number] [birth year] : 1940 Acct:[id number] Age/Sex: 85 / M ADM Date: 04/12/25 Loc: JILLIAN Attending Dr: Denilson Minor MD Ordering Physician: Denilson Minor MD Date of Service: 04/12/25 Procedure(s): XR chest 2V Accession Number(s): [id number] cc: Robbie Kothari MD; Denilson Minor MD [...] 04/12/25 1430 DD/ 1411 TD/TT: 04/12/25 1426 Interior Wirer: [address] [address] XRay Report Signed Patient: Jeremiah King MR#: [id number] [birth year] : 1940 Acct:[id number] Age/Sex: 85 / M ADM Date: 04/12/25 Loc: JILLIAN Attending Dr: Denilson Minor MD Ordering Physician: Denilson Minor MD Date of Service: 04/12/25 Procedure(s): XR chest 2V Accession Number(s): [id number] cc: Robbie Kothari MD; Denilson Minor MD [...] 04/12/25 1430 DD/ 1411 TD/TT: 04/12/25 1426 Interior Wirer: Complete Blood Count Auto Di ff Reviewed date:04/24/2025 03:36:17 PM Interpretation: Performing Lab:[facility], [address] [place] [address] Notes/Report: White Blood Count 6.0 4.8-10.8 X10*3/uL [...] te Reviewed date:04/24/2025 03:36:17 PM Interpretation: Performing Lab:[address] [address] Notes/Report: Erythrocyte Sedimentation Rate 21 0-15 MM/HR Patients with polycythemia and many hemoglobin abnormalities may have depressed sed rates whereas patients with anemia may have elevated sed rates. Liver Panel Reviewed date:04/24/2025 03:36:17 PM Interpretation: Performing Lab:[address] [address] Notes/Report: Bilirubin Total 0.8 0.0-1.0 mg/dL Bilirubin Direct 0.3 0.0-0.5 mg/dL Aspartate Amino Transferase 25 5-37 U/L Alanine Aminotransferase 13 0-40 U/L Total Protein 7.6 6.5-8.0 g/dL Albumin Level 4.2 3.5-5.0 g/dL Alkaline Phosphatase 84 39-117 U/L Basic Metabolic Panel Reviewed date:04/24/2025 03:36:17 PM Interpretation: Performing Lab:[address] [address] Notes/Report: Sodium 136 135-145 mmol/L Potassium 4.2 [...] date:04/24/2025 03:36:17 PM Interpretation: Performing Lab: Notes/Report: [address] [address] Ultrasound Report Signed Patient: Freeamn King MR#: [id number] [birth year] : 1940 Acct:[id number] Age/Sex: 85 / M ADM Date: 04/24/25 Loc: HO.US Attending Dr: Irene MADRID Ordering Physician: Irene Fam Date of Service: 04/24/25 Procedure(s): US retroperitoneal comp Accession Number(s): [id number] cc: Robbie Kothari MD; Irene Fam EXAMINATION: [...] 04/24/25 1049 DD/ 1000 TD/TT: 04/24/25 1030 Interior Wirer: [place] [address] Ultrasound Report Signed Patient: Jeremiah King MR#: [id number] [birth year] : 1940 Acct:[id number] Age/Sex: 85 / M ADM Date: 04/24/25 Loc: HO.US Attending Dr: Irene JEFFPROSEANNA Ordering Physician: Irene Fam Date of Service: 04/24/25 Procedure(s): US retroperitoneal comp Accession Number(s): [id number] cc: Robbie Kothari MD; Irene Fam EXAMINATION: [...] 04/24/25 1049 DD/ 1000 TD/TT: 04/24/25 1030 Interior Wirer: XR chest 2V Reviewed date:05/29/2025 12:59:13 PM Interpretation: Performing Lab: Notes/Report: [address] [address] XRay Report Signed Patient: Freeman King MR#: [id number] [birth year] : 1940 Acct:[id number] Age/Sex: 85 / M ADM Date: 05/24/25 Loc: HO.XRAY Attending Dr: Denilson Minor MD Ordering Physician: Denilson Minor MD Date of Service: 05/24/25 Procedure(s): XR chest 2V Accession Number(s): [id number] cc: Robbie Kothari MD; Denilson Minor MD [...] 12:06 PM EDT RP Dictated By: Lázaro Elias MD Signed By: <Electronically signed by Lázaro Monique MD in OV> 05/24/25 1206 DD/ 1125 TD/TT: 05/24/25 1132 Interior Wirer: [place] [address] XRay Report Signed Patient: Jeremiah King MR#: [id number] [birth year] : 1940 Acct:[id number] Age/Sex: 85 / M ADM Date: 05/24/25 Loc: JILLIAN Attending Dr: Denilson Minor MD Ordering Physician: Denilosn Minor MD Date of Service: 05/24/25 Procedure(s): XR chest 2V Accession Number(s): [id number] cc: Robbie Kothari MD; Denilson Minor MD [...] 05/24/25 1206 DD/ 1125 TD/TT: 05/24/25 1132 Interior Wirer: Reason For Referral Reason Urgent Referral Requ est Evaluate and Treat ? Catheter Can not tolerate tamsulosin Diagnosis 1 Benign prostatic hyp erplasia with lower urinary tract symptoms (N40.1) Diagnosis 2 Nocturia (R35.1) Referral Organization Robbie Kothari III, MD Referring Provider First Name Robbie Referring Provider Last Name Saniya Referring Provider Speciality Internal M edicine Referred Provider [facility], Urology Referred Provider Specialty Urology [...] Referring Provider Speciality Internal edicine Referred Organization [place] Lucita hanson Referred Provider [facility], Core Physical Therapy Referred Address [address] [place] [address],[place], [place],[id number], Referred Provider Specialty Physical [employer] [...] Referring Provider Speciality Internal edicine Referred Provider [facility], Speech and Hearing Referred Provider Specialty Unknown General Notes D, Sarika 03/09/2025 02:27:01 PM > Referral and last progress not faxed Referral Priority Routine Referral Appointment Date 03/15/2025 Medications Medication SIG (Take, Route, Frequency, Duration) Notes Start Date End Date Status Atorvastatin Calcium 10 MG 1 tablet Oral ly Once a day Active Azithromycin 500 MG Oral Active Advil 200 MG 1 tablet with food o r milk as needed Orally Three times a day Active Arikayce 590 MG/8.4ML Inhalation Active Tamsulosin HCl 0.4 MG Oral Active rifAMPin 300 MG TAKE 2 CAPS BY MOUTH ONCE DAILY Oral Active Tylenol PM Extra Strength 500-25 MG [...] Vaccine Afluria IM Intramuscular 06/02/2024 Admi nistered Influenza Vaccine Afluria IM Intramuscular 07/17/2025 Admi [...] Problem Status W/U Status Risk Notes Problem 7697678 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 Problem Hyperlipidemia (47923350) Hyperlipidemia (E78.5) Active confirmed His lipids have been stable. Change in his regimen was necessary today. Problem 58459607 Hyponatremia (E87.1) Active confirmed His sodium is n ow 136 and this problem has resolved. Problem 977092139 Underweight (R63.6) Active confirmed His appetite barrera s improved. His body mass index is now 20 which is in the normal range. His weight will be monitored carefully. Problem 05255044 Mycobacterial infection, unspecified (A31.9) Active confirmed He says he did not tolerate the inhaled amikacin. I have referred him back to pulmonary to discuss this further. His pulmonary infection seems controlled today but now resolved. Problem 293226018 Adenoma of ascending colon (D12.2) Active confirmed He will call he r gastroenterologis t to see if additional colonoscopies will be recommended. Problem 74550543 Abdominal hernia without obstruction and without gangrene, recurrence not specified, unspecified hernia type (K46.9) Active confirmed The hernia is n ow asymptomatic and will be observed without treatment. Problem Seizure (52109348) Seizures (R56.9) Active confirmed Just before discharge from an [facility] rehabilitation he was begun on Keppra for periods of unresponsiveness. A repeat CT scan November 18, 2024 showed improvement in the hemorrhage and edema. The Her will be discontinued until the electroencephalog jackie is done. We have requested a repeat visit from [facility] neurology. Problem 9354580012396 Benign prostatic hyperplasia with lower urinary tract symptoms (N40.1) Active confirmed He has seen urology and then given tamsulosin and finasteride. He has stopped the finasteride because of handshaking. I recommended he discuss this with urology and continue the tamsulosin. His nocturia has improved. Problem 83778285 Sleep apnea in adult (G47.30) Active confirmed He is using t he new CPAP machine without difficulty and is pleased with the results. 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 Problem 32339954 Atrial arrhythmia (I49.8) Active confirmed He was in a normal sinus rhythm today with no abnormalities. He has had no episodes of tachycardia, syncope or palpitations. 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 Problem 617971440735818 Acute gout of left hand, unspecified cause (M10.9) Active confirmed This was a clinical diagnosis and he is being treated with prednisone. It occurred within the last 48 hours. The left wrist is painful red and swollen. Vital Signs Heart Rate 71 /min 07/17/2025 Temperature 98.0 degrees Fahrenheit 07/17/2025 Respiratory Rate 16 /min 07/17/2025 Oximetry 92 % 07/17/2025 Blood pressure diastolic 76 mm Hg 07/17/2025 Height 76 in 07/17/2025 Blood pressure systolic 132 mm Hg 07/17/2025 Weight 172 lbs 07/17/2025 BMI 20.93 kg/m2 07/17/2025 Encounters Encounter Location Date Provider Diagnosis Robbie Kothari III, MD [address] [place] [address] [place], [place] [address] 07/25/2024 Robbie Kothari Hyperlipidemia E78.5 ; Mycobacterial infection, unspecified A31.9 ; Benign prostatic hyperplasia with lower urinary tract symptoms N40.1 ; Former smoker Z87.891 ; 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 and Sleep apnea in adult G47.30 Robbie Kothari III, MD [address] [place] [address] [place] [address] 11/21/2024 Robbie Kothari Hyperlipidemia E78.5 ; Nontraumatic [...] in adult G47.30 Robbie Kothari III, MD [address] [place] [address] [place] [address] 12/02/2024 Robbie Kothari Hyperlipidemia E78.5 ; 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 ; Pneumonia J18.9 ; Former smoker Z87.891 ; Mycobacterial infection, unspecified A31.9 ; Sleep apnea in adult G47.30 and Benign prostatic hyperplasia with lower urinary tract symptoms N40.1 Robbie Kothari III, MD [address] [place] [address] [place] [address] 12/19/2024 Robbie Kothari Hyperlipidemia E78.5 ; 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 ; Pneumonia J18.9 ; Underweight R63.6 ; Seizures R56.9 ; Former smoker Z87.891 ; Mycobacterial infection, unspecified A31.9 ; Sleep apnea in adult G47.30 and Benign prostatic hyperplasia with lower urinary tract symptoms N40.1 Robbie Kothari III, MD [address] [place] [address] [place] [address] 01/04/2025 Robbie Kothari Orthostatic hypotens ion I95.1 ; Former smoker Z87.891 ; Atrial arrhythmia I49.8 ; Hyperlipidemia E78.5 ; Rosacea L71.9 ; Benign prostatic hyperplasia with lower urinary tract symptoms N40.1 ; 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 ; Underweight R63.6 and Pneumonia J18.9 Robbie Kothari III, MD [address] [place] [address] [place] [address] 01/13/2025 Robbie Kothari Generalized weakness R53.1 ; Hyperlipidemia E78.5 ; Former smoker Z87.891 ; Hypertrophy of prostate without urinary obstruction and other lower urinary tract symptoms (LUTS) N40.0 ; Mycobacterial infection, unspecified A31.9 ; Underweight R63.6 ; 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 ; Orthostatic hypotension I95.1 and Pneumonia J18.9 Robbie Kothari III, MD [address] [place] [address] [place] [address] 01/27/2025 Robbie Kothari Former smoker Z87.89 1 [...] Generalized weakness R53.1 Robbie Kothari III, MD [address] [place] [address] [place] [address] 02/24/2025 Robbie Kothari Mycobacterial infect ion, unspecified A31.9 ; 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 ; Benign prostatic hyperplasia with lower urinary tract symptoms N40.1 ; Seizures R56.9 ; Hyponatremia E87.1 ; Former smoker Z87.891 ; Generalized weakness R53.1 and Acute gout of left hand, unspecified cause M10.9 Robbie Kothari III, MD [address] [place] [address] [place] [address] 03/20/2025 Robbie Kothari Former smoker Z87.89 1 ; Hyperlipidemia 272.4 ; Benign prostatic hyperplasia without lower urinary tract symptoms N40.0 ; Mycobacterial infection, unspecified A31.9 ; Underweight R63.6 ; Anterior subcapsular polar age-related cataract of both eyes H25.033 ; Seizures R56.9 and 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 Robbie Kothari III, MD [address] [place] [address] [place] [address] 05/02/2025 Robbie Kothari Former smoker Z87.89 1 [...] tract symptoms N40.0 Robbie Kothari III, MD [address] [place] [address] [place] [address] 07/17/2025 Robbie Kothari Former smoker Z87.89 1 ; Encounter for immunization Z23 ; Hyperlipidemia E78.5 ; Benign prostatic hyperplasia with lower urinary tract symptoms N40.1 ; Underweight R63.6 ; Hyponatremia E87.1 ; Mycobacterial infection, unspecified A31.9 and Sleep apnea in adult G47.30 Robbie Kothari III, MD [address] [place] [address] [place] [address] 10/28/2024 Robbie Kothari III, MD [address] [place] [address] [place] [address] 11/21/2024 Robbie Kothari III, MD [address] [place] [address] [place] [address] 11/21/2024 Robbie Kothari III, MD [address] [place] [address] [place] [address] 11/22/2024 Robbie Kothari III, MD [address] [place] [address] [place] [address] 11/22/2024 Robbie Kothari III, MD [address] [place] [address] [place] [address] 11/25/2024 Robbie Kothari III, MD [address] [place] [address] [place] [address] 11/25/2024 Robbie Kothari III, MD [address] [place] [address] [place] [address] 12/05/2024 Robbie Kothari III, MD [address] [place] [address] [place] [address] 12/14/2024 Robbie Kothari III, MD [address] [place] [address] [place] [address] 12/20/2024 Robbie Kothari III, MD [address] [facility] [address] 01/02/2025 Robbie Kothari III, MD [address] [place] [address] [place] [address] 01/03/2025 Robbie Kothari III, MD [address] [facility] [address] 01/06/2025 Robbie Kothari III, MD [address] [place] [address] [place] [address] 01/13/2025 Robbie Kothari III, MD [address] [place] [address] [place] [address] 01/17/2025 Robbie Kothari III, MD [address] [place] [address] [place] [address] 01/17/2025 Robbie Kothari III, MD [address] [place] [address] [place] [address] 02/07/2025 Robbie Kothari III, MD [address] [place] [address] [place] [address] 02/10/2025 Robbie Kothari III, MD [address] [place] [address] [place] [address] 02/24/2025 Robbie Kothari III, MD [address] [place] [address] [place] [address] 02/27/2025 Robbie Kothari III, MD [address] [place] [address] [place] [address] 03/03/2025 Robbie Kothari III, MD [address] [place] [address] [place] [address] 03/09/2025 Robbie Kothari III, MD [address] [place] [address] [place] [address] 03/10/2025 Robbie Kothari Assessments Encounter Date Diagnosis (ICD Code) Assessment Notes Treatment Notes Treatment Clinical Notes 07/25/2024 Hyperlipidemia (ICD-10 - E78.5) No recent [...] at home and was brought to the [facility] emergency of December 30, 2024 and admitted [...] be seen once a week at least. 07/17/2025 Former smoker (ICD-10 - Z87.891) He has a strategy to prevent relapse in times of stress and illness. 07/17/2025 Encounter for immunization (ICD-10 - Z23) After giving informed consent he received an influenza vaccine today. He tolerated it without side effects. 07/25/2024 Benign prostatic hyperplasia with lower urinary tract symptoms (ICD-10 - N40.1) He rises from sleep once a night to urinate. He is happy with this level of control. We discussed further lifestyle modifications he can maake to reduce nocturia. 11/21/2024 Seizures (ICD-10 - R56.9) Just before discharge from an [facility] rehabilitation he was begun on Keppra for periods of unresponsiveness. A repeat CT scan November 18, 2024 showed improvement in the hemorrhage and edema. The Her will be discontinued until the electroencephalogram is done. We have requested a repeat visit from [facility] neurology. 12/02/2024 Pneumonia (ICD-10 - J18.9) [...] normal at 20. This problem has resolved. 07/17/2025 Hyperlipidemia (ICD-10 - E78.5) His lipids have been stable. Change in his regimen was necessary today. 07/25/2024 Former smoker (ICD-10 - Z87.891) He has a strategy to prevent relapse in times of stress and illness. 11/21/2024 Hyponatremia (ICD-10 - E87.1) After admission to [facility] he required hypertonic saline and then [...] We have requested a repeat visit from [facility] neurology. 03/20/2025 Mycobacterial infection, unspecified (ICD-10 [...] asymptomatic and will be observed without treatment. 07/17/2025 Benign prostatic hyperplasia with lower urinary tract symptoms (ICD-10 - N40.1) He has seen urology and then given tamsulosin and finasteride. He has stopped the finasteride because of handshaking. I recommended he discuss this with urology and continue the tamsulosin. His nocturia has improved. 07/25/2024 Macrocytosis (ICD-10 - D75.89) His main [...] - R56.9) Just before discharge from an [facility] rehabilitation he was begun on Keppra for periods of unresponsiveness. A repeat CT scan November 18, 2024 showed improvement in the hemorrhage and edema. The Her will be discontinued until the electroencephalogram is done. We have requested a repeat visit from [facility] neurology. 01/04/2025 Rosacea (ICD-10 - L71.9) [...] Hyponatremia (ICD-10 - E87.1) After admission to [facility] he required hypertonic saline and then [...] clearance for cataract surgery today without restriction. 07/17/2025 Underweight (ICD-10 - R63.6) His appetite has improved. His body mass index is now 20 which is in the normal range. His weight will be monitored carefully. 07/25/2024 Sleep apnea in adult (ICD-10 - [...] - R56.9) Just before discharge from an [facility] rehabilitation he was begun on Keppra for periods of unresponsiveness. A repeat CT scan November 18, 2024 showed improvement in the hemorrhage and edema. The Her will be discontinued until the electroencephalogram is done. We have requested a repeat visit from [facility] neurology. 02/24/2025 Former smoker (ICD-10 - [...] modifications he can maake to reduce nocturia. 07/17/2025 Hyponatremia (ICD-10 - E87.1) His sodium is now 136 and this problem has resolved. 11/21/2024 Anterior subcapsular polar age-related cataract of [...] Hyponatremia (ICD-10 - E87.1) After admission to [facility] he required hypertonic saline and then [...] - R56.9) Just before discharge from an [facility] rehabilitation he was begun on Keppra for periods of unresponsiveness. A repeat CT scan November 18, 2024 showed improvement in the hemorrhage and edema. The Her will be discontinued until the electroencephalogram is done. We have requested a repeat visit from [facility] neurology. 05/02/2025 Sleep apnea in adult (ICD-10 - G47.30) He is using the new CPAP machine without difficulty and is pleased with the results. 07/17/2025 Mycobacterial infection, unspecified (ICD-10 - A31.9) He says he did not tolerate the inhaled amikacin. I have referred him back to pulmonary to discuss this further. His pulmonary infection seems controlled today but now resolved. 11/21/2024 Rosacea (ICD-10 - L71.9) He was [...] at home and was brought to the [facility] emergency of December 30, 2024 and admitted [...] 05/02/2025 Leg weakness, bilateral (ICD-10 - R29.898) 07/17/2025 Sleep apnea in adult (ICD-10 - [...] C) 03/06/2021 PROFILE, FASTING (COMPREHENSIVE METABOLI C) 09/18/2020 PROFILE, FASTING (COMPREHENSIVE METABOLI C) 03/18/2023 PROFILE, FASTING (COMPREHENSIVE METABOLI C) 07/25/2024 PROFILE, FASTING (COMPREHENSIVE METABOLI C) 07/17/2025 PROFILE, FASTING (COMPREHENSIVE METABOLI C) 10/08/2021 PROFILE, FASTING (COMPREHENSIVE METABOLI C) 04/22/2024 PROFILE, FASTING (COMPREHENSIVE METABOLI C) 12/05/2020 PROFILE, RANDOM (COMPREHENSIVE METABOLIC ) 01/06/2022 LIPID PANEL 12/05/2020 LIPID PANEL 12/10/2022 LIPID PANEL 06/06/2021 LIPID PANEL 09/10/2022 LIPID PANEL 01/06/2022 LIPID PANEL 05/01/2020 LIPID PANEL 09/18/2020 LIPID PANEL 03/18/2023 PSA, TOTAL 04/22/2024 PSA, TOTAL 03/06/2021 PSA, TOTAL 09/10/2022 PSA, TOTAL 01/06/2022 PSA, TOTAL 05/01/2020 PSA, TOTAL 07/25/2024 PSA, TOTAL 09/18/2020 PSA, TOTAL 03/18/2023 PSA, TOTAL 07/17/2025 CBC w DIFF 09/18/2020 CBC w DIFF 03/18/2023 CBC w DIFF 07/17/2025 CBC w DIFF 12/05/2020 CBC w DIFF [...] Panel 10/08/2021 Lipid Panel 07/25/2024 Lipid Panel 07/17/2025 Lipid Panel 04/22/2024 Lipid Panel 07/22/2023 Next Appt Details Provider Name:Robbie Kothari , 10/17/2025 10:30:00 AM, [address] [place] [address] [address], [place], [address], Provider Name:Robbie Kothari , 01/29/2026 09:30:00 AM, [address] [place] [address] [address], [place], [address], Insurance Providers Payer Name Payer Address Payer Phone Subscriber Number Group Number Insured Name Patient Relationship to Insured Coverage Start Date Coverage End Date [employer]age [address] [address] [place] [phone] [id number] Freeman King Self - patient is the insured MEDICARE NGS [address] [place] [phone] [id number] Freeman King Self - patient is the insured Medical (General) History Medical History History ICD Code colonic poyps 2002 benign prostatic hyperplasia (BPH) hyperlipidemia left herniorraphy age 30 neck and right shoulder pain 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
[2025-07-25 08:06] LABS: Prostate Specific Antigen 2.49 ng/mL (<0.05-4.0)
== END 2025-07-25 06:43 | disposition home or self-care (01) ==
LOC: HO.LAB 06:42
PROVIDERS: PCP Internal Medicine Medical Oncology; Visit Provider Nurse Practitioner Family
DX: Z12.5 Encounter for screening for malignant neoplasm of prostate (principal); N40.1 Benign prostatic hyperplasia with lower urinary tract symptoms; N39.43 Post-void dribbling; R35.1 Nocturia; R33.8 Other retention of urine
CPT/HCPCS: 36415; 84153

== ENCOUNTER 2025-08-05 12:42 | Observation (INO) | payer MEDICARE, SELFPAY ==
--- OUTSIDE RECORDS SUMMARY | 2025-02-24 04:44 | XMS_ITS ---
Author Organization Robbie Kothari III, MD Address [address] [place] [address] [place] [address] Care Team Providers Care Division Engineer Name Role Phone Dr. Robbie Kothari III Primary Care Provider [phone] REASON FOR VISIT FYI Social History Sex Assigned At : Social History Observation Description Sex Assigned At Male Encounters Encounter Location Date Provider Diagnosis Robbie Kothari III, MD [address] [place] [address] [place] [address] 02/24/2025 Robbie Kothari Plan Of Treatment Next Appt Details Provider Name:Robbie Kothari , 10/17/2025 10:30:00 AM, [address] [place] [address] [place], [address], Provider Name:Robbie Kothari , 01/29/2026 09:30:00 AM, [address] [place] [address] [place], [address], Progress Notes * Freeman ROCHADOB: 0 (85 yo M)Acc No.[id number]:02/24/2025 Patient: Aranza Freeman BURGESS :1940 A ge:85 Y S ex:Male Address:[place] [address] * true * Date: Generated for Printi ng/Faxing/eTransmitting on: 10/05/2024 01:40 PM EST
--- OUTSIDE RECORDS SUMMARY | 2025-02-24 06:00 | XMS_ITS ---
Author Organization Robbie Kothari III, MD Address [address] [place] [address] [address] [place] [address] Care Team Providers Care Outpatient Dietitian Name Role Phone Dr. Robbie Kothari III Primary Care Provider [phone] Allergies Allergen (clinical drug ingredient) Drug/Non Drug Allergy documented on EMR Reaction Allergy Type Onset Date Status No Known Drug Allergy Unknown Drug Allergy Active No Known Food Allergy Unknown Drug Allergy Active REASON FOR VISIT Recent cerebral hemorrhage, Dyspnea on exertion, Generalized weakness, Worsening pneumonia right lung, Mycobacterial pulmonary infection, Hyperlipidemia, Orthostatic hypotension, Benign prostatic hypertrophy, Underweight Medications Medication SIG (Take, Route, Frequency, Duration) Notes Start Date End Date Status Hydrocortisone 1 % 1 application Supervisor Audit Clerks ally Twice a day 01/27/2025 Active Albuterol Sulfate (2.5 MG/3ML) 0.083% Inhalation Active Nystatin 919622 UNIT/GM APPLY TOPICALLY 3 TIMES A DAY FOR 30 DAYS APPLY TO THE AFFECTED AREA THREE TIMES A DAY External Active Atorvastatin Calcium 10 MG 1 tablet Oral ly Once a day Active Azithromycin 500 MG Oral Active Tamsulosin HCl 0.4 MG Oral Active Social History Tobacco Use: Social History Observation Description Date Details (start date - stop date) Former Smoker NA - NA Sex Assigned At : Social History Observation Description Sex Assigned At Male Tobacco Control (Standard) Question Answer Notes Tobacco use: Former smoker How long has it been since you last smoked? Grea ter than 10 years Additional Findings: Tobacco non-user Ex-cigaret te smoker Problems Problem Type SNOMED Code ICD Code Onset Dates Problem Status W/U Status Risk Notes Problem [id number] Acute gout of left hand, unspecified cause (M10.9) Active confirmed This was a clinical diagnosis and he is being treated with prednisone. It occurred within the last 48 hours. The left wrist is painful red and swollen. Vital Signs Temperature 97.5 degrees Fahrenheit 02/25/20 25 Blood pressure systolic 117 mm Hg 02/25/20 25 Blood pressure diastolic 75 mm Hg 025 Heart Rate 97 /min 02/24/2025 Height 76 in 02/24/2025 Weight 161 lbs 02/24/2025 BMI 19.6 kg/m2 02/24/2025 Encounters Encounter Location Date Provider Diagnosis Robbie Kothari III, MD [address] [place] [address] [place] [address] 02/24/2025 Robbie Kothari Mycobacterial infection, unspecified A31.9 ; 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 ; Benign prostatic hyperplasia with lower urinary tract symptoms N40.1 ; Seizures R56.9 ; Hyponatremia E87.1 ; Former smoker Z87.891 ; Generalized weakness R53.1 and Acute gout of left hand, unspecified cause M10.9 Assessments Encounter Date Diagnosis (ICD Code) Assessment Notes Treatment Notes Treatment Clinical Notes 02/24/2025 Mycobacterial infection, unspecified (ICD-10 - A31.9) He continues on daily A azithromycin. A recent chest x-ray shows worsening airspace disease in right lung. He is due to see pulmonary within the next week. He has a cough which is nonproductive and is afebrile. n. 02/24/2025 Nontraumatic hemorrhage of left cerebral hemisphere (ICD-10 [...] be seen once a week at least. 02/24/2025 Benign prostatic hyperplasia with lower urinary tract symptoms (ICD-10 - N40.1) He says he is rising from sleep up to 4 times a night. His tamsulosin waas stopped because of a low blood pressure. It curtis now resumed. He is happy with this level of control. We discussed further lifestyle modifications he can maake to reduce nocturia. 02/24/2025 Seizures (ICD-10 - R56.9) Just before discharge from an [facility] rehabilitation he was begun on Keppra for periods of unresponsiveness. A repeat CT scan November 18, 2024 showed improvement in the hemorrhage and edema. The Her will be discontinued until the electroencephalogram is done. We have requested a repeat visit from [facility] neurology. 02/24/2025 Hyponatremia (ICD-10 - E87.1) After admission to [facility] he required hypertonic saline and then 1 g of sodium chloride tablets 3 times a day to restore his potassium to normal. He was discharged without this. Blood work with a sodium level will be checked frequently. 02/24/2025 Former smoker (ICD-10 - Z87.891) He has a strategy to prevent relapse in times of stress and illness. 02/24/2025 Generalized weakness (ICD-10 - R53.1) He was making significant progress after the stroke with increasing ability to speak and walks and conduct the activities of daily living. Over the last few days he has become very weak and is unable to stand and has difficulty speaking. His says he had a brief episode of fever 2 days ago. I told her to take him to the emergency room as he is likely to have a new pneumonia or urinary tract infection or acute metabolic problem. 02/24/2025 Acute gout of left hand, unspecified cause (ICD-10 - M10.9) This was a clinical diagnosis and he is being treated with prednisone. It occurred within the last 48 hours. The left wrist is painful red and swollen. Plan Of Treatment Medication Medication Name Sig Start Date Stop Date Notes Hydrocortisone 1 % 1 application Supervisor Audit Clerks ally Twice a day 01/27/2025 Albuterol Sulfate (2.5 MG/3M L) 0.083% Inhalation Nystatin 007063 UNIT/GM APPLY TOPICALLY 3 TIMES A DAY FOR 30 DAYS APPLY TO THE AFFECTED AREA THREE TIMES A DAY External Atorvastatin Calcium 10 MG 1 tablet Orally Once a day Azithromycin 500 MG Oral Tamsulosin HCl 0.4 MG Oral Next Appt Details Follow Up: 3 Weeks, Reason: OV Provider Name:Robbie Kothari , 10/17/2025 10:30:00 AM, [address] [place] [address] [address], [place], [address], Provider Name:Robbie Irvingne , 01/29/2026 09:30:00 AM, [address] [place] [address] [address], [place], [address], Progress Notes * Freeman ROCHA JDOB: 0 (85 yo M)Acc No.[id number]:02/24/2025 Progress Notes Patient: Freeman CAZARES Provider: Mike Kothari MD :1940 A ge:85 Y S ex:Male Date:02/24/2025 Address: [id number] Subjective: * Chief Complaints: * R ecent cerebral hemorrhageDyspnea on exertionGeneralized weaknessWorsening pneumonia right lungMycobacterial pulmonary infectionHyperlipidemiaOrthostatic hypotensionBenign prostatic hypertrophyUnderweight * HPI: C OVID-19 Screening: He is seen in follow-up of several serious problems. His weakness is worse. His says he is much better in the beginning of the day than at the end. He has significant pain in his last wrist over the last 2 or 3 days. Range of motion is painful and it is swollen consistent with gout. They have a supply of 20 mg tablets of prednisone at home and he was instructed to take 2 for 3 consecutive days and report daily by telephone. He sees his events specialist, Dr. Minor, next week. A chest x-ray done yesterday shows worsening infiltrates in the right lung. He had a dry cough today and was afebrile. 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 He is very weak from a recent cerebral hemorrhage but has gained some weight. Questions H ave you had any new onset fever, chills, cough, congestion, sore throat, shortness of breath, muscle aches? N o * ROS: G eneral/Constitutional: pain A cute pain left wrist without trauma. C hills?denies. F atigue a dmits. F ever d enies. E NT: Decreased hearing d enies. R espiratory: Cough n on-productive. C ardiovascular: Chest pain with exertion d enies. D yspnea on exertion?denies. S hortness of breath d enies. G astrointestinal: Constipation o ccasional. D ecreased appetite d enies. D iarrhea d enies. H eartburn d enies. N ausea d enies. R ectal bleeding d enies. V omiting d enies. H ematology: bruising d enies. p etechiae d enies. S wollen glands n one have been noted. G enitourinary: Frequent urination t hree times a night. M usculoskeletal: Muscle aches d enies. P ainful joints d enies. S ciatica d enies. W eakness d enies. S kin: Itching d enies. R north d enies. S kin lesion(s)?denies. N eurologic: Difficulty speaking d enies. D izziness d enies.?Headache d enies. L ow back pain d enies. P sychiatric: Depressed mood d enies. * Medical History: * Surgical History: c olonoscopy 2008 * Hospitalization/Major Diagno stic Procedure: N o history * Family History: F ather: 73 yrs, dementia. M other: 75 yrs, lung cancer, diagnosed with Cancer. S pouse: alive 65 yrs, migraine headaches. 1 brother(s) , 1 sister(s) . 2 daughter(s) - healthy. . A brother has hyperlipidemia. He is not aware of any family history of breast cancer, uterine cancer or ovarian cancer. He is not aware of any family history of mental illness, substance use disorder. * Social History: T obacco Use: T obacco Control (Standard) T obacco use: F ormer smoker H ow long has it been since you last smoked??Greater than 10 years A dditional Findings: Tobacco non-user E x-cigarette smoker Jose guerrero has been to [facility] for 43 years and has 2 children and 2 grandchildren. 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 * Medications: T akingTamsulosin HCl 0.4 MG Capsule Oral Azithromycin 500 MG Tablet Oral Atorvastatin Calcium 10 MG Tablet 1 tablet Orally Once a day Nystatin 783969 UNIT/GM Powder APPLY TOPICALLY 3 TIMES A DAY FOR 30 DAYS APPLY TO THE AFFECTED AREA THREE TIMES A DAY External Albuterol Sulfate (2.5 MG/3ML) 0.083% Nebulization Solution Inhalation Hydrocortisone 1 % Ointment 1 application Externally Twice a day Taking Tamsulosin HCl 0.4 MG Capsule Oral Taking Azithromycin 500 MG Tablet Oral Taking Atorvastatin Calcium 10 MG Tablet 1 tablet Orally Once a day Taking Nystatin 098447 UNIT/GM Powder APPLY TOPICALLY 3 TIMES A DAY FOR 30 DAYS APPLY TO THE AFFECTED AREA THREE TIMES A DAY External Taking Albuterol Sulfate (2.5 MG/3ML) 0.083% Nebulization Solution Inhalation Taking Hydrocortisone 1 % Ointment 1 application Externally Twice a day DiscontinuedAzithromycin 500 MG Tablet Oral Medication List reviewed and reconciled with the patientDiscontinued Azithromycin 500 MG Tablet Oral Medication List reviewed and reconciled with the patient * Allergies: N o Known Drug AllergyNo Known Food Allergyno[Allergies Verified] Objective: * Vitals: H t: 76, Wt:161, BMI:19.6, BP:117/75, HR:97, Temp:97.5, Wt-k.03. * P ast Orders: Imaging:XR chest 2V * Performed Date 12/16/2024 12/02/2024 09/25/2020 10:48 AM 10:42 AM 07:08 AM Order Date 12/16/2024 12/02/2024 09/25/2020 * Lab:Magnesium * Collection Date 01/13/2025 12/30/2024 12/16/2024 Collection Time 11:57 AM 10:53 AM 10:45 AM Order Date 01/13/2025 12/30/2024 12/16/2024 Magnesium 1.8 (Ref Range: 1.6-2.6 mg/dL) 1.7 (Ref Range: 1.6-2.6 mg/dL) 1.8 (Ref Range: 1.6-2.6 mg/dL) * Examination: G eneral Examination: GENERAL APPEARANCE: p leasant, well nourished, well developed, in no acute distress, calm and relaxed, underweight, elderly man. HEAD: a traumatic, normocephalic. EYES: e raghavendra, perrla, anicteric, conjugate. EARS: n ormal. NOSE: s eptum intact. ORAL CAVITY: n ormal, unremarkable. NECK/THYROID: n o jugular venous distention, no carotid bruit, thyroid normal. LYMPH NODES: n o enlarged lymph nodes,spleen normal. SKIN: n o suspicious lesions, anicteric. HEART: n o clicks, gallops, murmurs, or rubs, regular rhythm, S1, S2 normal, no s3, or vascular bruits. LUNGS: , diminished breath sounds throughout, rhonchi on the RIGHT, scattered inspiratory wheezes. BREASTS: no masses palpable bilaterally. ABDOMEN: b owel sounds normal, no ascites, no organomegaly, no mass. RECTAL EXAM: n ot examined. MUSCULOSKELETAL: e xtremities unremarkable, no clubbing, cyanosis or edema. PERIPHERAL PULSES: n ormal. NEUROLOGIC: a lert and oriented, cranial nerves 2-12 grossly intact, deep tendon reflexes 2+ symmetrical, motor strength normal upper and lower extremities, sensory exam intact, Fluent, walks with a walker slowly, generalized weakness. PSYCH: a lert, oriented. Assessment: * Assessment: 1. M ycobacterial infection, unspecified - A31.9 (Primary) N otes :He continues on daily A azithromycin. A recent chest x-ray shows worsening airspace disease in right lung. He is due to see pulmonary within the next week. He has a cough which is nonproductive and is afebrile. n. 2 . 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 He [...] be seen once a week at least. 3 . B enign prostatic hyperplasia with lower urinary tract symptoms - N40.1? Notes :He says he is rising from sleep up to 4 times a night. His tamsulosin waas stopped because of a low blood pressure. It curtis now resumed. He is happy with this level of control. We discussed further lifestyle modifications he can maake to reduce nocturia. 4 . S eizures - R56.9 N otes :Just before discharge from an [facility] rehabilitation he was begun on Keppra for periods of unresponsiveness. A repeat CT scan November 18, 2024 showed improvement in the hemorrhage and edema. The Her will be discontinued until the electroencephalogram is done. We have requested a repeat visit from [facility] neurology. 5 . H yponatremia - E87.1 N otes :After admission to [facility] he required hypertonic saline and then 1 g of sodium chloride tablets 3 times a day to restore his potassium to normal. He was discharged without this. Blood work with a sodium level will be checked frequently. 6 . F ormer smoker - Z87.891 N otes :He has a strategy to prevent relapse in times of stress and illness. 7 . G eneralized weakness - R53.1 N otes :He was making significant progress after the stroke with increasing ability to speak and walks and conduct the activities of daily living. Over the last few days he has become very weak and is unable to stand and has difficulty speaking. His says he had a brief episode of fever 2 days ago. I told her to take him to the emergency room as he is likely to have a new pneumonia or urinary tract infection or acute metabolic problem. 8 . A cute gout of left hand, unspecified cause - M10.9 N otes :This was a clinical diagnosis and he is being treated with prednisone. It occurred within the last 48 hours. The left wrist is painful red and swollen. Plan: * Treatment: * Procedure Codes: * Preventive Medicine: Counseling: C are goal follow-up plan: Counseling for abnormal BMI given Y es Below Normal BMI Follow-up D ietary education for weight gain, Dietary management education, guidance, and counseling, Feeding regime, Lifestyle education regarding diet, Nutrition / feeding management, Prescribed diet education, Special diet education, Intervention, Order not done: Medical or Other reason not done S moking/Tobacco Use Patient counseled on the dangers of tobacco use and urged to quit. 0 02/24/2025 * Follow Up: 3 Weeks (Reason: OV) * Images: * Sign off status: Completed true * Provider: R klaudia E. Kothari, MD Date: 0 02/24/2025 Generated for Larisai dmitry/Awais/Jamessmitting on: 10/05/2024 01:37 PM EST History and Physical Notes * HPI [...] normal, no s3, or vascular bruits LUNGS: , diminished breath sounds throughout, rhonchi on the RIGHT, scattered inspiratory wheezes ABDOMEN: bowel sounds normal, no ascites, no organomegaly, no mass NEUROLOGIC: alert and oriented, cranial nerves 2-12 grossly intact, deep tendon reflexes 2+ symmetrical, motor strength normal upper and lower extremities, sensory exam intact, Fluent, walks with a walker slowly, generalized weakness SKIN: no suspicious lesion s, anicteric PERIPHERAL PULSES: normal BREASTS: no masses palpable b ilaterally MUSCULOSKELETAL: extremities unremark able, no clubbing, cyanosis or edema LYMPH NODES: no enlarged lymph no neno,spleen normal RECTAL EXAM: not examined PSYCH: alert, oriented ORAL CAVITY: normal, unremarkable
--- OUTSIDE RECORDS SUMMARY | 2025-02-27 09:41 | XMS_ITS ---
Author Organization Robbie Kothari III, MD Address [address] [facility] [place] [address] Care Team Providers Care Custom Furrier Name Role Phone Dr. Robbie Kothari III Primary Care Provider REASON FOR VISIT update on how pt is feeling Social History Sex Assigned At : Social History Observation Description Sex Assigned At Male Encounters Encounter Location Date Provider Diagnosis Robbie Kothari III, MD [address] [place] [address] [place] [address] 02/27/2025 Robbie Kothari Plan Of Treatment Next Appt Details Provider Name:Robbie Kothari , 10/17/2025 10:30:00 AM, [address] [place] [address] [place], [address], Provider Name:Robbie Kothari , 01/29/2026 09:30:00 AM, [address] [place] [address] [place], [phone], Progress Notes * Freeman ROCHADOB: 0 (85 yo M)Acc No.[id number]:02/27/2025 Patient: Aranza Freeman BURGESS :1940 A ge:85 Y S ex:Male Address:[place] [address] * true * Date: Generated for Printi ng/Faabigailg/eTransmitting on: 10/05/2024 01:38 PM EST
--- OUTSIDE RECORDS SUMMARY | 2025-03-03 04:40 | XMS_ITS ---
Author Organization Robbie Kothari III, MD Address [address] [place] [address] [place] [address] Care Team Providers Care Registered Occupational Therapist Name Role Phone Dr. Robbie Kothari III Primary Care Provider REASON FOR VISIT ? Rx Social History Sex Assigned At : Social History Observation Description Sex Assigned At Male Encounters Encounter Location Date Provider Diagnosis Robbie Kothari III, MD [address] [place] [address] [place] [address] 03/03/2025 Robbie Kothari Plan Of Treatment Next Appt Details Provider Name:Robbie Kothari , 10/17/2025 10:30:00 AM, [address] [place] [address] [place], [address], Provider Name:Robbie Kothari , 01/29/2026 09:30:00 AM, [address] [place] [address] [place], [address], Progress Notes * Freeman ROCHADOB: 0 (85 yo M)Acc No.[id number]:03/03/2025 Patient: Aranza Freeman BURGESS :1940 A ge:85 Y S ex:Male Address:[place] [address] * true * Date: Generated for Printi ng/Faxing/eTransmitting on: 10/05/2024 01:40 PM EST
--- OUTSIDE RECORDS SUMMARY | 2025-03-09 09:18 | XMS_ITS ---
Author Organization Robbie Kothari III, MD Address [address] [place] [address] [place] [address] Care Team Providers Care Children'S Aide Name Role Phone Dr. 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) Referral Organization Robbie Kothari III, MD Referring Provider First Name Robbie Referring Provider Last Name Saniya Referring Provider Speciality Internal M edicine Referred Provider [facility] er, Speech and Hearing Referred Provider Specialty Unknown General Notes DSarika 03/09/2025 02:27:01 PM > Referral and last progress not faxed Referral Priority Routine Referral Appointment Date 03/15/2025 REASON FOR VISIT referral Social History Sex Assigned At : Social History Observation Description Sex Assigned At Male Encounters Encounter Location Date Provider Diagnosis Robbie Kothari III, MD [address] [place] [address] [address] [place] [address] 03/09/2025 Robbie Kothari Plan Of Treatment Referrals Referral Date Details 03/09/2025 03/09/2025, Evaluate and Treat Physical Therapy OT, Core Physical Therapy [facility], [address] [place] [address], [place], [phone], 03/09/2025 03/09/2025, Evaluate and Treat Speech Therapy, Speech and Hearing [facility] Next Appt Details Provider Name:Robbie Thompson Saniya , 10/17/2025 10:30:00 AM, [address] [place] [address] [address], [place], [address], Provider Name:Robbie Kothari , 01/29/2026 09:30:00 AM, [address] [place] [address] [address], [place], [address], Progress Notes * Freeman ROCHADOB: 0 (85 yo M)Acc No.[id number]:03/09/2025 Patient: Aranza BURGESSFreeman :1940 A ge:85 Y S ex:Male Address:[address] [place], [place] [address] [address] Subjective: * Chief Complaints: * R eferral * Medical History: * Surgical History: * Hospitalization/Major Diagno stic Procedure: * Medications: Objective: * Vitals: * Physical Examination: Assessment: Plan: * Treatment: * Procedure Codes: * true * Date: Generated for Chip andres/Awais/eTransmitting on: 10/05/2024 01:38 PM EST Consultation Request Notes Referral Date Referring Provider Referred Provider Not es 03/09/2025 Saniya [facility], Core Physical Therapy Evaluate and Treat Physical Therapy OT 03/09/2025 Saniya [facility], Speech and Hearing Evaluate and Treat Speech Therapy
--- OUTSIDE RECORDS SUMMARY | 2025-03-10 04:22 | XMS_ITS ---
Author Organization Robbie Kothari III, MD Address [address] [facility] [place] [address] Care Team Providers Care Drywall Stripper Name Role Phone Dr. Robbie Kothari III [...] Date Provider Diagnosis Robbie Kothari III, MD [address] [place] [address] [place] [address] 03/10/2025 Robbie Kothari Plan Of Treatment Medication Medication Name Sig Start Date Stop Date Notes predniSONE 20 MG 1 tablet with food o r milk Orally Once a day for 10 days 03/10/2025 05/09/2025 Next Appt Details Provider Name:Robbie Kothari , 10/17/2025 10:30:00 AM, [address] [place] [address] [place], [address], Provider Name:Robbie Kothari , 01/29/2026 09:30:00 AM, [address] [place] [address] [place], [address], Progress Notes * Freeman ROCHADOB: 0 (85 yo M)Acc No.[id number]:03/10/2025 Patient: Freeman CAZARES :1940 A ge:85 Y S ex:Male Address:[address] [place] [address] * Refills Start predniSONE Tablet, 20 MG, Orally, 10 Tablet, 1 tablet with food or milk, Once a day, 10 days, Refills=5 * true * Date: Generated for Chip andres/Awais/Juaquinitting on: 10/05/2024 01:40 PM EST
--- OUTSIDE RECORDS SUMMARY | 2025-03-20 05:45 | XMS_ITS ---
Author Organization Robbie Kothari III, MD Address [address] [place] [address] Care Team Providers Care Green End Department Supervisor Name Role Phone Dr. Robbie Kothari III Primary Care Provider Allergies Allergen (clinical drug ingredient) Drug/Non Drug Allergy documented on EMR Reaction Allergy Type Onset Date Status No Known Drug Allergy Unknown Drug Allergy Active No Known Food Allergy Unknown Drug Allergy Active REASON FOR VISIT Mycobacterial pulmonary infection, Recent cerebral hemorrhage Left hemisphere, Gout, Benign prostatic hypertrophySleep apnea Medications Medication SIG (Take, Route, Frequency, Duration) Notes Start Date End Date Status Nystatin 584349 UNIT/GM APPLY TOPICALLY 3 TIMES A DAY FOR 30 DAYS APPLY TO THE AFFECTED AREA THREE TIMES A DAY External Active Atorvastatin Calcium 10 MG 1 tablet Oral ly Once a day Active Azithromycin 500 MG Oral Active Tamsulosin HCl 0.4 MG Oral Active predniSONE 20 MG 1 tablet with food o r milk Orally Once a day 03/10/2025 Active Hydrocortisone 1 % 1 application Solid Waste Landfill Technician ally Twice a day 01/27/2025 Active Albuterol Sulfate (2.5 MG/3ML) 0.083% Inhalation Active Social History Tobacco Use: Social History [...] Additional Findings: Tobacco non-user Ex-cigaret te smoker Vital Signs Temperature 97.4 degrees Fahrenheit 03/20/20 25 Blood pressure systolic 121 mm Hg 03/20/20 25 Blood pressure diastolic 72 mm Hg 025 Heart Rate 77 /min 03/20/2025 Respiratory Rate 16 /min 03/20/2025 Height 76 in 03/20/2025 Weight 164 lbs 03/20/2025 BMI 19.96 kg/m2 03/20/2025 Oximetry 98 % 03/20/2025 Encounters Encounter Location Date Provider Diagnosis Robbie Kothari III, MD [address] [place] [address] [facility] [place] [address] 03/20/2025 Robbie Venturarne Former smoker Z87.89 1 ; Hyperlipidemia 272.4 ; Benign prostatic hyperplasia without lower urinary tract symptoms N40.0 ; Mycobacterial infection, unspecified A31.9 ; Underweight R63.6 ; 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 03/20/2025 Hyperlipidemia (ICD9-CM - 272.4) His recent fasting lipid profile is stable and shows good control of his lipids. No change in his regimen as necessary. 03/20/2025 Benign prostatic hyperplasia without lower urinary tract symptoms (ICD-10 - N40.0) 03/20/2025 Mycobacterial infection, unspecified (ICD-10 - A31.9) He continues on daily A azithromycin. A recent chest x-ray shows worsening airspace disease in right lung. He is due to see pulmonary within the next week. He has a cough which is nonproductive and is afebrile. n. 03/20/2025 Underweight (ICD-10 - R63.6) His appetite is better and he is feeling stronger. His body mass index is now 19. We continue our discussions on diet and nutrition. 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 03/20/2025 Seizures (ICD-10 - R56.9) Just before discharge from an [facility] rehabilitation he was begun on Keppra for periods of unresponsiveness. A repeat CT scan November 18, 2024 showed improvement in the hemorrhage and edema. The Her will be discontinued until the electroencephalogram is done. We have requested a repeat visit from [facility] neurology. 03/20/2025 Nontraumatic hemorrhage of left cerebral hemisphere (ICD-10 [...] be seen once a week at least. Plan Of Treatment Medication Medication Name Sig Start Date Stop Date Notes Nystatin 140698 UNIT/GM APPLY TOPICALLY 3 TIMES A DAY FOR 30 DAYS APPLY TO THE AFFECTED AREA THREE TIMES A DAY External Atorvastatin Calcium 10 MG 1 tablet Orally Once a day Azithromycin 500 MG Oral Tamsulosin HCl 0.4 MG Oral predniSONE 20 MG 1 tablet with food o r milk Orally Once a day 03/10/2025 Hydrocortisone 1 % 1 application Solid Waste Landfill Technician ally Twice a day 01/27/2025 Albuterol Sulfate (2.5 MG/3M L) 0.083% Inhalation Next Appt Details Follow Up: 6 Weeks, Reason: ov Provider Name:Robbie Kothari , 10/17/2025 10:30:00 AM, [address] [place] [address] [place] [address], [address], Provider Name:Robbie Kothari , 01/29/2026 09:30:00 AM, [address] [place] [address] [place], [place], [address], Progress Notes * Freeman ROCHADOB: 0 (85 yo M)Acc No.[id number]:03/20/2025 Progress Notes Patient: Freeman CAZARES Provider: Mike Kothari MD :1940 A ge:85 Y S ex:Male Date:03/20/2025 Address:[address] [place], [place] [address], [id number] Subjective: * Chief Complaints: * M ycobacterial pulmonary infectionRecent cerebral hemorrhage Left hemisphereGoutBenign prostatic hypertrophySleep apnea * HPI: C OVID-19 Screening: Jose guerrero returns try going management of his recent cerebral hemorrhage. He says his breathing has been stable. He coughs up brown phlegm occasionally. He gets out of bed once a night to urinate. He is able to walk. He feels stronger and has gained weight. His appetite is returning. He denies any new problems. He is up-to-date with his visits to pulmonary medicine for the mycobacterial lung infection. Questions H ave you had any new onset fever, chills, cough, congestion, sore throat, shortness of breath, muscle aches? N o * ROS: G eneral/Constitutional: pain o nly normal aches and pains. C hills d enies.?Fatigue a dmits. F ever d enies. E NT: Decreased hearing d enies. R espiratory: Cough P roduces brown phlegm. C ardiovascular: Chest pain with exertion d enies. D yspnea on exertion?with prolonged activity. S hortness of breath w ith exertion. G astrointestinal: Constipation o ccasional. D ecreased appetite d enies. D iarrhea d enies. H eartburn d enies. N ausea d enies. R ectal bleeding d enies. V omiting d enies. H ematology: bruising d enies. p etechiae d enies. S wollen glands n one have been noted. G enitourinary: Frequent urination o nce a night. M usculoskeletal: Muscle aches d enies. P ainful joints B oth shoulders. S ciatica d enies. W eakness d [...] x-cigarette smoker Jose guerrero has been to [place] for 43 years and has 2 children and 2 grandchildren. 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 He was born in [place], [place]. * Medications: T akingTamsulosin HCl 0.4 MG Capsule 1 capsule Orally at bed time Azithromycin 500 MG Tablet 1 tablet Orally Once a day Atorvastatin Calcium 10 MG Tablet 1 tablet Orally Once a day Nystatin 485718 UNIT/GM Powder APPLY TOPICALLY 3 TIMES A DAY FOR 30 DAYS APPLY TO THE AFFECTED AREA THREE TIMES A DAY External Albuterol Sulfate (2.5 MG/3ML) 0.083% Nebulization Solution Inhalation Hydrocortisone 1 % Ointment 1 application Externally Twice a day Taking Tamsulosin HCl 0.4 MG Capsule 1 capsule Orally at bed time Taking Azithromycin 500 MG Tablet 1 tablet Orally Once a day Taking Atorvastatin Calcium 10 MG Tablet 1 tablet Orally Once a day Taking Nystatin 627198 UNIT/GM Powder APPLY TOPICALLY 3 TIMES A DAY FOR 30 DAYS APPLY TO THE AFFECTED AREA THREE TIMES A DAY External Taking Albuterol Sulfate (2.5 MG/3ML) 0.083% Nebulization Solution Inhalation Taking Hydrocortisone 1 % Ointment 1 application Externally Twice a day Not-Taking/PRNpredniSONE 20 MG Tablet 1 tablet with food or milk Orally Once a day , stop date 05/09/2025Medication List reviewed and reconciled with the patientNot-Taking/PRN predniSONE 20 MG Tablet 1 tablet with food or milk Orally Once a day , stop date 05/09/2025Medication List reviewed and reconciled with the patient * Allergies: N o Known Drug AllergyNo Known Food Allergyno[Allergies Verified] Objective: * Vitals: H t: 76, Wt:164, BMI:19.96, BP:121/72, HR:77, RR:16, Temp:97.4, Oxygen sat %:98, Wt-k.39. * Examination: G eneral Examination: GENERAL APPEARANCE: [...] rhonchi on the RIGHT, rhonchi on the LEFT. BREASTS: no masses palpable bilaterally. ABDOMEN: b owel sounds normal, no ascites, no organomegaly, no mass. RECTAL EXAM: n ot examined. MUSCULOSKELETAL: e xtremities unremarkable, no clubbing, cyanosis or edema, Mild pain to elevation both shoulders. PERIPHERAL PULSES: n ormal. NEUROLOGIC: a lert and oriented, cranial nerves 2-12 grossly intact, deep tendon reflexes 2+ symmetrical, motor strength normal upper and lower extremities, sensory exam intact. PSYCH: a lert, oriented. Assessment: * Assessment: 1. F ormer smoker - Z87.891 (Primary) N otes :He has a strategy to prevent relapse in times of stress and illness. 2 . H yperlipidemia - 272.4 N otes :His recent fasting lipid profile is stable and shows good control of his lipids. No change in his regimen as necessary. 3 . B enign prostatic hyperplasia without lower urinary tract symptoms - N40.0 4. M ycobacterial infection, unspecified - A31.9 N otes :He continues on daily A azithromycin. A recent chest x-ray shows worsening airspace disease in right lung. He is due to see pulmonary within the next week. He has a cough which is nonproductive and is afebrile. n. 5 . U nderweight - R63.6 N otes :His appetite is better and he is feeling stronger. His body mass index is now 19. We continue our discussions on diet and nutrition. 6 . A nterior subcapsular polar age-related cataract of both eyes - H25.033? Notes :He was given medical clearance for cataract surgery today without restriction. 7 . S eizures - R56.9 N otes :Just before discharge from an [facility] rehabilitation he was begun on Keppra for periods of unresponsiveness. A repeat CT scan November 18, 2024 showed improvement in the hemorrhage and edema. The Her will be discontinued until the electroencephalogram is done. We have requested a repeat visit from [facility] neurology. 8 . N ontraumatic hemorrhage of left cerebral [...] be seen once a week at least. Plan: * Treatment: 2. O thers Continue Tamsulosin HCl Capsule, 0.4 MG, Oral; C ontinue Azithromycin Tablet, 500 MG, Oral;?Continue Atorvastatin Calcium Tablet, 10 MG, 1 tablet, Orally, Once a day; C ontinue Nystatin Powder, 763828 UNIT/GM, APPLY TOPICALLY 3 TIMES A DAY FOR 30 DAYS APPLY TO THE AFFECTED AREA THREE TIMES A DAY, External; C ontinue Albuterol Sulfate Nebulization Solution, (2.5 MG/3ML) 0.083%, Inhalation; C ontinue Hydrocortisone Ointment, 1 %, 1 application, Externally, Twice a day. ? * Procedure Codes: 9 4760 MEASURE BLOOD OXYGEN LEVEL * Preventive Medicine: Counseling: C are goal [...] tobacco use and urged to quit. 0 03/20/2025 * Follow Up: 6 Weeks (Reason: ov) * Images: * Sign off status: Completed true * Provider: Mike Kothari MD Date: 0 03/20/2025 Generated for Larisai dmitry/Awais/eTransmitting on: 1 10/05/2024 01:38 PM EST History and Physical Notes * [...] normal upper and lower extremities, sensory exam intact SKIN: no suspicious lesion s, anicteric PERIPHERAL PULSES: normal BREASTS: no masses palpable b ilaterally MUSCULOSKELETAL: extremities unremark able, no clubbing, cyanosis or edema, Mild pain to elevation both shoulders LYMPH NODES: no enlarged lymph no neno,spleen normal RECTAL EXAM: not examined PSYCH: alert, oriented ORAL CAVITY: normal, unremarkable
--- OUTSIDE RECORDS SUMMARY | 2025-05-02 06:00 | XMS_ITS ---
Author Organization Robbie Kothari III, MD Address [address] [place] [place] [address] Care Team Providers Care Experimental Flight Test Mechanic Name Role Phone Dr. Robbie Kothari III [...] Date Provider Diagnosis Robbie Kothari III, MD [address] [place] [address] [place] [address] 05/02/2025 Robbie Kothari Former smoker Z87.89 1 [...] Months, Reason: OV Provider Name:Robbie Kothari , 10/17/2025 10:30:00 AM, [address] [place] [address] [address], [place], [address], Provider Name:Robbie Kothari , 01/29/2026 09:30:00 AM, [address] [place] [address] [address], [place], [address], Progress Notes * Freeman ROCHADOB: 0 (85 yo M)Acc No.[id number]:05/02/2025 Progress Notes Patient: Aranza BURGESS Freeman Lee Provider: Mike Kothari MD :1940 A ge:85 Y S ex:Male Date:05/02/2025 Address:[address], [id number] Subjective: * Chief Complaints: * M ycobacterium avium pulmonary infectionHyperlipidemiaBenign prosthetic hypertrophyCerebral hemorrhageLeft cerebral hemorrhageSeizuresPostural hypotension * HPI: C OVID-19 Screening: Jose guerrero returns for ongoing medical management. He is now taking Ryskamp in from the learning disabilities specialist for his mycobacterial pulmonary infection. He [...] x-cigarette smoker H e has been to [facility] for 43 years and has 2 children and 2 grandchildren. 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 He was born in [place], [place]. * Medications: T akingTylenol PM Extra [...] DiscontinuedTamsulosin HCl 0.4 MG Capsule Oral Nystatin 650465 UNIT/GM Powder APPLY TOPICALLY 3 TIMES A [...] HCl 0.4 MG Capsule Oral Discontinued Nystatin 865749 UNIT/GM Powder APPLY TOPICALLY 3 TIMES A [...] Kothari MD Date: 0 05/02/2025 Generated for Chip andres/Awais/Jamessmitting on: 10/05/2024 01:38 PM EST History and Physical [...]
--- OUTSIDE RECORDS SUMMARY | 2025-07-17 06:15 | XMS_ITS ---
Author Organization Robbie Kothari III, MD Address [address] [place] [address] [address] [place] [address] Care Team Providers Care Business Development Assistant Name Role Phone Dr. Robbie Kothari III Primary Care Provider [phone] Allergies Allergen (clinical drug ingredient) Drug/Non Drug Allergy documented on EMR Reaction Allergy Type Onset Date Status No Known Drug Allergy Unknown Drug Allergy Active No Known Food Allergy Unknown Drug Allergy Active REASON FOR VISIT Mycobacterial pulmonary infection, Hyperlipidemia, Rosacea, Sleep apnea, Benign prostatic hypertrophy, Recent cerebral hemorrhage Medications Medication SIG (Take, Route, Frequency, Duration) Notes Start Date End Date Status Atorvastatin Calcium 10 MG 1 tablet Oral ly Once a day Active Azithromycin 500 MG Oral Active Arikayce 590 MG/8.4ML Inhalation Active Tamsulosin HCl 0.4 MG Oral Active rifAMPin 300 MG TAKE 2 CAPS BY MOUTH ONCE DAILY Oral Active Advil 200 MG 1 tablet with food o r milk as needed Orally Three times a day Active Tylenol PM Extra Strength 500-25 MG 1 tablet at bedtime as needed Orally Once a day Active Immunizations Vaccine Route Administration Date Status Comme nts Influenza Vaccine Afluria IM Intramuscular 07/17/2025 Admi nistered Social History Tobacco Use: Social [...] non-user Ex-cigaret te smoker Vital Signs Temperature 98.0 degrees Fahrenheit 07/17/20 25 Blood pressure systolic 132 mm Hg 07/17/20 25 Blood pressure diastolic 76 mm Hg 025 Heart Rate 71 /min 07/17/2025 Respiratory Rate 16 /min 07/17/2025 Height 76 in 07/17/2025 Weight 172 lbs 07/17/2025 BMI 20.93 kg/m2 07/17/2025 Oximetry 92 % 07/17/2025 Encounters Encounter Location Date Provider Diagnosis Robbie Kothari III, MD [address] [place] [address] [place] [address] 07/17/2025 Robbie Kothari Former smoker Z87.89 1 ; Encounter for immunization Z23 ; Hyperlipidemia E78.5 ; Benign prostatic hyperplasia with lower urinary tract symptoms N40.1 ; Underweight R63.6 ; Hyponatremia E87.1 ; Mycobacterial infection, unspecified A31.9 and Sleep apnea in adult G47.30 Assessments Encounter Date Diagnosis (ICD Code) Assessment Notes Treat ment Notes Treatment Clinical Notes 07/17/2025 Former smoker (ICD-1 0 - Z87.891) He has a strategy to prevent relapse in times of stress and illness. 07/17/2025 Encounter for immunization (ICD-10 - Z23) After giving informed consent he received an influenza vaccine today. He tolerated it without side effects. 07/17/2025 Hyperlipidemia (ICD-10 - E78.5) His lipids have been stable. Change in his regimen was necessary today. 07/17/2025 Benign prostatic hyperplasia with lower urinary tract symptoms (ICD-10 - N40.1) He has seen urology and then given tamsulosin and finasteride. He has stopped the finasteride because of handshaking. I recommended he discuss this with urology and continue the tamsulosin. His nocturia has improved. 07/17/2025 Underweight (ICD-10 - R63.6) His appetite has improved. His body mass index is now 20 which is in the normal range. His weight will be monitored carefully. 07/17/2025 Hyponatremia (ICD-10 - E87.1) His sodium is now 136 and this problem has resolved. 07/17/2025 Mycobacterial infection, unspecified (ICD-10 - A31.9) He says he did not tolerate the inhaled amikacin. I have referred him back to pulmonary to discuss this further. His pulmonary infection seems controlled today but now resolved. 07/17/2025 Sleep apnea in adult (ICD-10 - G47.30) He is using the new CPAP machine without difficulty and is pleased with the results. Plan Of Treatment Medication Medication Name Sig Start Date Stop Date Notes Atorvastatin Calcium 10 MG 1 tablet Orally Once a day Azithromycin 500 MG Oral Arikayce 590 MG/8.4ML Inhalation Tamsulosin HCl 0.4 MG Oral rifAMPin 300 MG TAKE 2 CAPS BY MOUTH ONCE DAILY Oral Advil 200 MG 1 tablet with food o r milk as needed Orally Three times a day Tylenol PM Extra Strength 500-25 MG 1 tablet at bedtime as needed Orally Once a day Pending Test Test Name Order Date PROFILE, FASTING (COMPREHENSIVE METABOLI C) 07/17/2025 PSA, TOTAL 07/17/2025 CBC w DIFF 07/17/2025 Lipid Panel 07/17/2025 Next Appt Details Follow Up: 3 Months, Reason: OV Provider Name:Robbie Kothari , 10/17/2025 10:30:00 AM, [address] [place] [address] [address], [place], [address], Provider Name:Robbie Kothari , 01/29/2026 09:30:00 AM, [address] [place] [address] [address], [place], [address], Progress Notes * Freeman ROCHADOB: 0 (85 yo M)Acc No.[id number]:07/17/2025 Progress Notes Patient: Aranza BURGESS Freeman Lee Provider: Mike Kothari MD :1940 A ge:85 Y S ex:Male Date:07/17/2025 Address:[address] [place], [place] [id number] Subjective: * Chief Complaints: * M ycobacterial pulmonary infectionHyperlipidemiaRosaceaSleep apneaBenign prostatic hypertrophyRecent cerebral hemorrhage * HPI: C OVID-19 Screening: H e returns for general medical management. Dr. Minor has given him inhales amikacin which he does not tolerate at all and when she has stopped. Urology gave him tamsulosin and finasteride. He says he does not tolerate the finasteride and has stopped it. This was because it made his handshake. He is breathing room air comfortably today. His pulmonary examination was unchanged. He continues to work with pulmonary on his mycobacterial pneumonia.He has substantially recovered from his cerebral hemorrhage. He is living at home independently with his . He says his memory is very poor. Questions H ave you had any new onset fever, chills, cough, congestion, sore throat, shortness of breath, muscle aches? N o * ROS: G eneral/Constitutional: pain o nly normal aches and pains. C hills d enies.?Fatigue a dmits. F ever d enies. E NT: Decreased hearing m ild. R espiratory: Cough d enies. C ardiovascular: Chest pain with exertion d enies. D yspnea on exertion?with moderate activity. S hortness of breath w ith [...] x-cigarette smoker H cesar has been to [facility] for 43 years and has 2 children and 2 grandchildren. 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 He was born in [place], [place]. * Medications: T akingTylenol PM Extra Strength 500-25 MG Tablet 1 tablet at bedtime as needed Orally Once a day Advil 200 MG Tablet 1 tablet with food or milk as needed Orally Three times a day Atorvastatin Calcium 10 MG Tablet 1 tablet Orally Once a day Azithromycin 500 MG Tablet Oral Tamsulosin HCl 0.4 MG Capsule Oral rifAMPin 300 MG Capsule TAKE 2 CAPS BY MOUTH ONCE DAILY Oral Arikayce 590 MG/8.4ML Suspension Inhalation Taking Tylenol PM Extra Strength 500-25 MG Tablet 1 tablet at bedtime as needed Orally Once a day Taking Advil 200 MG Tablet 1 tablet with food or milk as needed Orally Three times a day Taking Atorvastatin Calcium 10 MG Tablet 1 tablet Orally Once a day Taking Azithromycin 500 MG Tablet Oral Taking Tamsulosin HCl 0.4 MG Capsule Oral Taking rifAMPin 300 MG Capsule TAKE 2 CAPS BY MOUTH ONCE DAILY Oral Taking Arikayce 590 MG/8.4ML Suspension Inhalation DiscontinuedAlbuterol Sulfate (2.5 MG/3ML) 0.083% Nebulization Solution Inhalation Finasteride 5 MG Tablet Oral Medication List reviewed and reconciled with the patientDiscontinued Albuterol Sulfate (2.5 MG/3ML) 0.083% Nebulization Solution Inhalation Discontinued Finasteride 5 MG Tablet Oral Medication List reviewed and reconciled with the patient * Allergies: N o Known Drug AllergyNo Known Food Allergyno[Allergies Verified] Objective: * Vitals: H t: 76, Wt:172, BMI:20.93, BP:132/76, HR:71, RR:16, Temp:98.0, Oxygen sat %:92, Wt-k.02. * P ast Orders: Imaging:XR chest 2V * Performed Date 05/24/2025 04/12/2025 02/23/2025 11:25 AM 02:11 PM 08:27 AM Order Date 05/24/2025 04/12/2025 02/23/2025 ???Imaging:US retroperitoneal comp (Order Date - 04/24/2025) (Performed Date - 04/24/2025) * Lab:Basic Metabolic Panel * Collection Date [...] Creatinine Clr Calc Pharmacy NR 76.6 80.0 * Lab:Liver Panel * Collection Date 04/24/2025 [...] U/L) 68 (Ref Range: 39-117 U/L) * Lab:Erythrocyte Sedimentatio n Rate * Collection Date 04/24/2025 12/30/2024 12/31/2021 Collection Time 09:45 AM 10:53 AM 07:04 AM Order Date 04/24/2025 12/30/2024 12/31/2021 Erythrocyte Sedimentation Rate 21 H (Ref Range: 0-15 MM/HR) 60 H (Ref Range: 0-15 MM/HR) 6 (Ref Range: 0-15 MM/HR) * Lab:Complete Blood Count Aut o Diff * [...] X10*3/uL) 0.000 (Ref Range: 0.0-0.012 X10*3/uL) * Examination: G eneral Examination: GENERAL APPEARANCE: p leasant, well nourished, well developed, in no acute distress, calm and relaxed: elderly man. HEAD: a traumatic, normocephalic. EYES: e raghavendra, perrla, anicteric, conjugate. EARS: N ormal anatomy with bilateral hearing loss. NOSE: s eptum intact. ORAL CAVITY: n ormal, unremarkable. NECK/THYROID: n o jugular venous distention, no carotid bruit, thyroid normal. LYMPH NODES: n o enlarged lymph nodes,spleen normal. SKIN: n o suspicious lesions, anicteric. HEART: n o clicks, gallops, murmurs, or rubs, regular rhythm, S1, S2 normal, no s3, or vascular bruits. LUNGS: : diminished breath sounds throughout. BREASTS: no masses palpable bilaterally. ABDOMEN: b owel sounds normal, no ascites, no organomegaly, no mass. RECTAL EXAM: n ot examined. MUSCULOSKELETAL: e xtremities unremarkable, no clubbing, cyanosis or edema. PERIPHERAL PULSES: n ormal. NEUROLOGIC: a lert and oriented to person and place, cranial nerves 2-12 grossly intact, deep tendon reflexes 2+ symmetrical, motor strength normal upper and lower extremities, sensory exam intact, Generalized musculoskeletal weakness, speech clear and appropriate. PSYCH: A lert and oriented to person and place not time..? Assessment: * Assessment: 1. E ncounter for immunization - Z23 (Primary) N otes :After giving informed consent he received an influenza vaccine today. He tolerated it without side effects. 2 . F ormer smoker - Z87.891 N otes :He has a strategy to prevent relapse in times of stress and illness. 3 . H yperlipidemia - E78.5 N otes :His lipids have been stable. Change in his regimen was necessary today. 4 . B enign prostatic hyperplasia with lower urinary tract symptoms - N40.1? Notes :He has seen urology and then given tamsulosin and finasteride. He has stopped the finasteride because of handshaking. I recommended he discuss this with urology and continue the tamsulosin. His nocturia has improved. 5 . U nderweight - R63.6 N otes :His appetite has improved. His body mass index is now 20 which is in the normal range. His weight will be monitored carefully. 6 . H yponatremia - E87.1 N otes :His sodium is now 136 and this problem has resolved. 7 . M ycobacterial infection, unspecified - A31.9 N otes :He says he did not tolerate the inhaled amikacin. I have referred him back to pulmonary to discuss this further. His pulmonary infection seems controlled today but now resolved. 8 . S leep apnea in adult - G47.30 N otes :He is using the new CPAP machine without difficulty and is pleased with the results. Plan: * Treatment: 2. H yperlipidemia L AB: PROFILE, FASTING (COMPREHENSIVE METABOLIC) L AB: PSA, TOTAL L AB: CBC w DIFF L AB: Lipid Panel 3. B enign prostatic hyperplasia with lower urinary tract symptoms L AB: PROFILE, FASTING (COMPREHENSIVE METABOLIC) L AB: PSA, TOTAL L AB: CBC w DIFF L AB: Lipid Panel 4. U nderweight L AB: PROFILE, FASTING (COMPREHENSIVE METABOLIC) L AB: PSA, TOTAL L AB: CBC w DIFF L AB: Lipid Panel 5. H yponatremia L AB: PROFILE, FASTING (COMPREHENSIVE METABOLIC) L AB: PSA, TOTAL L AB: CBC w DIFF L AB: Lipid Panel * Immunizations: Influenza Vaccine Afluria : 0.5 mL (Dose No:1) (Route: Intramuscular) given by Robbie Kothari MD , MD on Left Arm (Encounter for immunization) ???Immunization record has been reviewed and updated. * Procedure Codes: 9 4760 MEASURE BLOOD OXYGEN [id number] CCIIV4 VAC NO PRSV 0.5 ML [id number] FLU VACC 4 LIBIA 3 YRS PLUS IM * Preventive Medicine: Counseling: C are goal [...] of tobacco use and urged to quit. 09/16/2024 * Follow Up: 3 Months (Reason: OV) * Images: * Sign off status: Completed true * Provider: Mike Kothari MD Date: 09/16/2024 Generated for Chip andres/Awais/eTransmitting on: 10/05/2024 01:39 PM EST History and Physical Notes * [...] EYES: eomi, perrla, anicte marifer, conjugate EARS: Normal anatomy with bilateral hearing loss NOSE: septum intact NECK/THYROID: no jugular venous di stention, no carotid bruit, thyroid normal HEART: no clicks, gallops, murmurs, or rubs, regular rhythm, S1, S2 normal, no s3, or vascular bruits LUNGS: : diminished breath sounds throughout ABDOMEN: bowel sounds normal, no ascites, no organomegaly, no mass NEUROLOGIC: alert and oriented t o person and place, cranial nerves 2-12 grossly intact, deep tendon reflexes 2+ symmetrical, motor strength normal upper and lower extremities, sensory exam intact, Generalized musculoskeletal weakness, speech clear and appropriate SKIN: no suspicious lesion s, anicteric PERIPHERAL PULSES: normal BREASTS: no masses palpable b ilaterally MUSCULOSKELETAL: extremities unremark able, no clubbing, cyanosis or edema LYMPH NODES: no enlarged lymph no neno,spleen normal RECTAL EXAM: not examined PSYCH: Alert and oriented t o person and place not time. ORAL CAVITY: normal, unremarkable
--- OUTSIDE RECORDS SUMMARY | 2025-08-04 12:00 | XMS_ITS ---
Author Organization Robbie Kothari III, MD Address [address] [place] [address] Care Team Providers Care Repairer Wood Furniture Name Role Phone Dr. Robbie Kothari III [...] Provider Diagnosis Robbie Kothari III, MD [address] [place] [address] [place] [address] 08/04/2025 Robbie Kothari Former smoker Z87.891 Assessments [...] Name:Robbie Kothari , 10/17/2025 10:30:00 AM, [address] [place] [address] [address], [place], [address], Provider Name:Robbie Donna Saniya , 01/29/2026 09:30:00 AM, [address] [place] [address] [address], [place], [address], Progress Notes * Freeman ROCHADOB: 0 (85 yo M)Acc No.[id number]:08/04/2025 Patient: Aranza BURGESSFreeman Provider: Mike Kothari MD :1940 A ge:85 Y S ex:Male Date:08/04/2025 Address:[address] [place], [place] [address], [id number] Subjective: * Chief Complaints: * 1 . Telehealth. * HPI: * : Telehealth L ocation of provider rendering services: { ...} [address] [place] [address] Drive [address] [facility] [address] L ocation of patient: laureen ddress listed in demographics for today's visit P atient identification confirmed using: JOANNE Roque ame T elehealth method: T elephone only. Patient not visible to care provider. C onsent: P atient verbally consented to treatment, Patient verbally consented to billing insurance company, Patient informed of any privacy concerns related to method of visit T otal time spent with patient (mins) 1 5 [...] children and 2 grandchildren. 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 * Medications: T aking Tylenol PM [...] * Vitals: Assessment: * Assessment: 1. F ana smoker - Z87.891 N otes :He has [...] Date: 10/04/2024 Generated for Chip andres/Awais/Tiffanie on: 10/05/2024 01:39 PM EST History and Physical Notes * HPI (History of Present Illness) Category Sub-Category Detail Notes Telehealth Location of [facility] ider rendering services:: {...} [address] [facility] [address] Location of patient:: address listed in demographics [...]
--- NOTE | ~2025-08-05 | XR_ITS ---
CLINICAL HISTORY: pain 2 view chest x-ray Comparison: CR/SR - XR CHEST 2 VIEWS - 05/24/25 11:25 EDT Findings: No consolidation. There is unchanged coarse increase of bilateral lung markings and patchy opacities. Possible left nipple shadow. No pleural effusion or pneumothorax. Heart size is normal. No acute fracture. IMPRESSION: Possible left nipple shadow. No consolidation. Stable chronic changes of the lung parenchyma. This document has been electronically signed by: Jarrod Shah MD on 08/05/2025 13:31:35
--- NOTE | ~2025-08-05 | CT_ITS ---
CLINICAL HISTORY: Cough, dyspnea on exertion, hemoptysis --- Additional Notes or Special Instructions: History of MAC, rule out PE, other causes for hemoptysis CT angiography chest with contrast. 3D Postprocessing. Comparison: CR - XR CHEST 2V - 08/05/25 13:05 EST , 01/13/2025 Findings: The heart size is normal. RV/LV ratio is normal. The thoracic aorta is normal caliber. No pulmonary artery filling defects. The visualized thyroid and mediastinum are unremarkable. There is increased multifocal ill-defined bilateral pulmonary nodular densities. Bilateral upper lobe scarring with traction bronchiectasis is present. Similar pattern of the distribution is noted compared to the prior CT chest. Nodular density of the bilateral lower lobes with tree-in-bud appearance. Multiple liver cysts and right renal cysts. No acute fractures. IMPRESSION: No pulmonary embolus in the visualized pulmonary artery. Similar pattern of chronic fibrotic change with traction bronchiectasis. Multiple area of persistent opacities of the bilateral lungs are concerning for infection. CT chest follow-up as clinically indicated. This document has been electronically signed by: Jarrod Shha MD on 08/05/2025 17:36:34
--- OUTSIDE RECORDS SUMMARY | 2025-08-05 11:10 | XMS_ITS | Encounter Summary ---
Author Organization [facility] Address [address] [address] Phone Care Team Providers Care Senior Production Planner Name Role Phone Robbie Kothari MD Primary Care Provider [phone] Reason for Visit * Reason Comments Cough Pt also has c/o lisandro estion x 6 days. Pmh of Pneumonia last was in January/2025. Has [facility] Encounter Details Date Type Department Care Team (Late st Contact Info) Description 08/05/2025 11:10 AM EST Office Visit [facility] [address] [address] Semaj Etienne PA-C [address] [place] [address] [email or web address] Cough, unspecified type (Primary Dx); Shortness of breath; Epistaxis Social History Tobacco Use Types Packs/Day Years Used Date Smoking Tobacco: Former Cigarettes Smokeless Tobacco: Never Education Answer Date Recorded Are you interested in more education? Not on kennedy e 01/10/2023 Are you concerned about learning? Not on file 01/10/2023 No 01/10/2023 No 01/10/2023 Digital Access Answer Date Recorded No 02/10/2023 No 02/10/2023 Reliable internet access at home? Not on file 02/10/2023 Device with a working camera? Not on file Sex and Gender Information Value Date Recorded Sex Assigned at Not on file Legal Sex Male 2:40 PM EST Gender Identity Not on file Sexual Orientation Not on file documented as of this encounter Last Filed Vital Signs Vital Sign Reading Time Taken Comments Blood Pressure 126/70 08/05/2025 11:05 AM EST Pulse 80 08/05/2025 11:05 AM EST Temperature 36.9 C (98.4 F) 08/05/2025 11:05 AM EST Respiratory Rate 16 08/05/2025 11:05 AM EST Oxygen Saturation 94% 08/05/2025 11:05 AM EST Inhaled Oxygen Concentration - - Weight 77.1 kg (170 lb) 08/05/2025 11:05 AM EST Height - - Body Mass Index - - documented in this encounter Patient Instructions * Patient Instructions* Semaj Etienne PA-C - 08/05/2025 11:10 AM EST Go to [place] to [facility] emergency department now for evaluation and management. Your COVID-19/flu/RSV swab today was negative. documented in this encounter Progress Notes * Semaj Etienne PA-C - 08/05/2025 11:10 AM EST Images from the original note were not included. Subjective: Patient ID: Freeman King is a 85 y.o. male. 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 Minor in [place] pulmonology, had been on Arikase 1 vial daily which he stopped a week ago due to side effects, presenting today with worsening cough head congestion shortness of breath for the past week. Denies any weakness, dizziness, presyncope, chest pain, palpitations, hemoptysis, nausea vomiting diarrhea. Review of Systems All other systems reviewed and are negative. Vitals: 08/05/25 1105 BP: 126/70 BP Location: Left arm Patient Position: Sitting Cuff Size: Medium Pulse: 80 Resp: 16 Temp: 36.9 ??C (98.4 ??F) TempSrc: Oral SpO2: 94% Weight: 77.1 kg (170 lb) Objective: Physical Exam Vitals reviewed. Constitutional: General: He is not in acute distress. Appearance: He is well-developed and normal weight. He is not ill-appearing, toxic-appearing or diaphoretic. HENT: Head: Normocephalic and atraumatic. Right Ear: Tympanic membrane normal. Left Ear: Tympanic membrane normal. Nose: Nose normal. No congestion or rhinorrhea. Mouth/Throat: Mouth: Mucous membranes are moist. Pharynx: No pharyngeal swelling, oropharyngeal exudate or posterior oropharyngeal erythema. Eyes: General: No scleral icterus. Right eye: No discharge. Left eye: No discharge. Conjunctiva/sclera: Conjunctivae normal. Neck: Vascular: No JVD. Cardiovascular: Rate and Rhythm: Normal rate and regular rhythm. Heart sounds: Normal heart sounds. No murmur heard. No gallop. Pulmonary: Effort: Pulmonary effort is normal. No tachypnea or accessory muscle usage. Breath sounds: No stridor. Rhonchi (Coarse rhonchi throughout) present. No wheezing. Chest: Chest wall: No deformity. Musculoskeletal: General: No tenderness. Cervical back: Normal range of motion and neck supple. No rigidity. No muscular tenderness. Right lower leg: No edema. Left lower leg: No edema. Lymphadenopathy: Cervical: No cervical adenopathy. Skin: General: Skin is warm and dry. Coloration: Skin is not jaundiced or pale. Findings: No erythema or rash. Comments: Bilateral DP 2+ bilateral lower extremity rubor Neurological: General: No focal deficit present. Mental Status: He is alert and oriented to person, place, and time. Motor: No weakness. Gait: Gait normal. Psychiatric: Mood and Affect: Mood normal. Behavior: Behavior normal. Results for orders placed or performed in visit on 08/05/25 POCT SARS-CoV-2, Influenza A/B, RSV, PCR Result Value Ref Range SARS-Cov-2 PCR Negative Negative POC Influenza A Negative Negative POC Influenza B Negative Negative RSV PCR Negative Negative Procedure: Procedures Assessment/Plan: Diagnosis Plan 1. Cough, unspecified type 2. Shortness of breath 3. Epistaxis Results and Data Reviewed: I personally reviewed the lab results. Interventions: Check labs. 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 Minor in [place] pulmonology, had been on Arikase 1 vial daily which he stopped a week ago due to side effects, presenting today with worsening cough head congestion shortness of breath for the past week. Denies any weakness, dizziness, presyncope, chest pain, palpitations, hemoptysis, nausea vomiting diarrhea. COVID-19 PCR/flu/RSV swab today negative. 1- Dx acute cough with shortness of breath, presently vitals are stable O2 sat 94% on room air withambulatory O2 sat 94%. Coarse bilateral breath sounds with shortness of breath concerning for pneumonia based on his chronic medical conditions and being on azithromycin and rifampin recently coming off of his Arikase 1 week ago due to side effects discussed with patient and daughter referral to higher level of care for stat labs and imaging. 12 lead ECG in the clinic today inoperable patient stable without chest pain or other worrisome signs for acute coronary syndrome or PE shared decision making with patient and family will defer ambulance transport to the ED at this time. Patient left in stable condition 12:20 PM to go to [place] ED. Expect call to [place] ED 12:25 PM spoke to Jose. 2-Dx iatrogenic epistaxis right nostril when obtaining viral swab. Bleeding controlled with cool compress to the neck and direct pressure to the anterior nasal alae pinching with fingers with tissue. documented in this encounter Plan of Treatment Not on file documented as of this encounter Procedures Procedure Name Priority Date/Time Associated Diagnosis Comments POCT SARS-COV-2, INFLUENZA A/B, RSV, PCR Routine 08/05/2025 11:29 AM EST documented in this encounter Results * POCT SARS-CoV-2, Influenza A/B, RSV, PCR (08/05/2025 11:29 AM EST) SARS-Cov-2 PCR Negative Negative 08/05/2025 12:10 PM EST [facility] Influenza A Negative Negative 08/05/2025 12:10 PM EST [facility] Influenza B Negative Negative 08/05/2025 12:10 PM EST [facility] RSV PCR Negative Negative 08/05/2025 12:10 PM EST [facility] Swab (Anterior Nares) 08/05/2025 11:29 AM EST 08/05/2025 12:10 PM EST us Semaj Etienne PA-C LAB POCT DOCKED DEVICE U NSOLICTED RESULTS Final Result [facility] [address] [address], [facility] [phone] documented in this encounter Visit Diagnoses Diagnosis Cough, unspecified type- Primary Shortness of breath Epistaxis documented in this encounter Additional Health Concerns Infection Onset Date Last Indicated Resolved Time Resp-Risk 08/05/2025 08/05/2025 documented as of this encounter Care Teams Senior Production Planner Relationship Specialty Start Date End Date Robbie Kothari MD [address] [place] [address] [place] [address] PCP - General Medical Oncology 08/05/25 documented as of this encounter Additional Source Comments The information contained in this document represents components of the legal health record. It is not the complete legal health record.[facility]
[2025-08-05 12:45] VITALS: BP 152/76; PULSE 80; RESP 18; TEMP 36.6; O2SAT 94; BMI 20.7
--- NOTE | 2025-08-05 12:46 | ECG_ITS ---
Test Reason : DYSPNEA Blood Pressure : */* mmHG Vent. Rate : 88 BPM Atrial Rate : 88 BPM P-R Int : 232 ms QRS Dur : 92 ms QT Int : 354 ms P-R-T Axes : 41 91 72 degrees QTcB Int : 428 ms Sinus rhythm with sinus arrhythmia with 1st degree A-V block Rightward axis Borderline ECG When compared with ECG of 13-Jan-2025 11:59, Fusion complexes are no longer Present Referred By: Chan Luque Electronically Signed By: GENE ALMAGUER
--- NOTE | 2025-08-05 12:46 | ED_ITS ---
HPI - General Adult General Chief complaint: Dyspnea Stated complaint: low O2, chest congestion, ? pneumonia Time Seen by Provider: 08/05/25 13:10 Source: patient and family ( and daughter) Mode of arrival: ambulatory Limitations: no limitations History of Present Illness ED Provider: Dr. 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 At the urgent care clinic the patient's O2 saturation was 94% and there was a concerned that he may be hypoxic therefore he was sent to the ED. In the emergency department the patient had 1 episode of coughing with a small amount of dark red hematemesis. The patient's MAC infection is being treated with rifampin 3 times a day, azithromycin 3 times a week and Arkayce(amikacin) inhaler. The family states that the inhaler is relatively new treatment. He denied fever, chest pain, shortness of breath at rest, he does have dyspnea on exertion which the family believes that has gotten worse. Related Data Home Medications ?Medication ?Instructions ?Recorded ?Confirmed nebulizers 06/30/22 05/01/25 albuterol sulfate 2.5 mg/3 mL 2.5 mg inhalation BID wh eezing 04/17/25 05/01/25 (0.083 %) solution for nebulization atorvastatin 10 mg PO DAILY 05/30/25 Previous Rx's ?Medication ?Instructions ?Recorded azithromycin 500 mg tablet 500 mg PO DAILY 30 days #30 tabs 01/24/25 rifampin 300 mg capsule 600 mg (2 x 300 mg) PO DAILY #60 04/17/25 caps tamsulosin 0.4 mg capsule 0.8 mg (2 x 0.4 mg) PO BEDTI ME 90 05/01/25 days #180 caps codeine 10 mg-guaifenesin 100 mg/5 10 ml PO Q6H PRN co ugh 10 days 05/30/25 mL oral liquid #300 mL fluticasone 250 mcg-salmeterol 50 1 inh inhalation Q12 H 30 days #60 05/30/25 mcg/dose blistr powdr for ea inhalation (Karlyxniko Inhub) amikacin liposomal 590 mg/8.4 mL 590 mg inhalation GOVIND LY 28 days 06/05/25 susp for inhalation, nebulizer #235.2 mL acces. Allergies Allergy/AdvReac Type Severity Reaction Status Date / Time latex (LATEX) Allergy Intermediate RASH Verified 08/05/25 12:46 Band-Aid Allergy Severe rash Uncoded 08/05/25 12:46 neosporin Allergy Severe rash Uncoded 08/05/25 12:46 Review of Systems 2 Review of Systems: Yes all other systems are reviewed and are negative [facility] Past Medical History [facility] Narrative: Social history: He lives with his . He denies tobacco, alcohol and drug use Medical History (Updated 08/05/25 @ 17:48 by Juanito Sanchez MD) Mycobacterial disease Bronchiectasis COPD (chronic obstructive pulmonary disease) Hernia HLD (hyperlipidemia) BPH (benign prostatic hyperplasia) Bronchiectasis Hemoptysis Pulmonary nodules Cough Abnormal chest x-ray Surgical History Hx of colonoscopy Social History Social History Household Members: Spouse Housing: House Do you presently have visiting nurse or other home services: Yes Alcohol intake: former Patient Tobacco Use Status: Former Tobacco user Tobacco use type: Cigarette Years Smoked: 20 years Smoked in Last 30 Days: No Use of substances other than those prescribed or required for medical reasons: No Advance Directives: No Advance Directives Information Provided: Yes Do you have a plan to hurt others: No Plan service: Yes Physical Exam ED Vital Signs: Vital Signs - 24 hr 08/05/25 12:45 08/05/25 13:11 08/05/25 16:01 Temperature 98 F 98.1 F 98.1 F Pulse Rate 80 76 70 Respiratory Rate 18 16 14 Blood Pressure 152/76 H 137/64 150/71 H Pulse Oximetry 94 95 93 Oxygen Delivery Method Room Air Room Air Room Air BMI result Body Mass Index 20.7 Vital signs revealed an elevated blood pressure of 152/76 otherwise unremarkable Exam: General: Awake, alert in no distress Head: Normocephalic, atraumatic EENT: PERRL, sclera and conjunctiva are normal, mouth with no erythema or exudates Neck: Supple, no adenopathy Lung: breath sounds symmetric, rales and rhonchi at the base, no wheezing Chest: symmetric movement, nontender Heart: regular rate and rhythm, normal S1, S2 no murmurs or rubs Abdomen: soft, non-tender, nondistended, normal bowel sounds Back: no vertebral tenderness, no CVAT Extremities: no deformities, moves all extremities symmetrically, no edema Neuro: Awake, alert, oriented, normal speech, cranial nerves 2-12 intact, moves all extremities symmetrically Psych: Pleasant, cooperative Course Course Course Narrative: RME, this is a rapid medical exam performed by Jose Luque please refer to primary provider for complete H&P- 85-year-old male past medical history significant for mycobacterial avium complex, COPD not on oxygen followed by Dr. Minor presents for evaluation of increased cough and shortness of breath. He presents from urgent care. Plan for labs, viral swabs and a chest x-ray. He is well-appearing, vital signs stable in triage Reevaluation(s) Reevaluation #1: DR. Sanchez's Progress note: I assumed care for this patient at 16:[address] angio rule out pulmonary embolism patient is well known with history of bronchiectasis and interstitial lung fibrosis presented with cough, shortness of breath, and hemoptysis CTA ruled out evidence of major arteries pulmonary embolism however demonstrated multiple focal area of infection patient received ceftriaxone by Dr. Louis will add doxycycline for atypical infection and will admit to the hospital case discussed with Dr. Walker who accepted the patient to the medical floor. Time: 17:45 Medications Administered Generic Name Dose Route Start Last Admin Trade Name Freq PRN Reason Stop Dose Admin Sodium Chloride 500 mls @ 250 mls/hr 08/05/25 15:45 08/05/25 16:13 Ns IV 08/05/25 17:44 250 mls/hr .Q2H STA Administration Discontinued Medications Generic Name Dose Route Start Last Admin Trade Name Freq PRN Reason Stop Dose Admin Ceftriaxone Sodium 1 gm/ 50 mls @ 100 mls/hr 08/05/25 15:42 08/05/25 16:50 Sodium Chloride IV 08/05/25 16:11 Infused ONCE ONE Infusion Iohexol 100 ml 08/05/25 16:41 08/05/25 16:42 Iohexol 350 Mg/Ml 100 Ml Infus..Btl IV 08/05/25 16:42 65 ml ONCE ONE Administration Medical Decision Making Medical Decision Making [facility] Narrative: 84-year-old male past medical history HLD, BPH, bronchiectasis (MAC infection), hemoptysis, hyperlipidemia, BPH, 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 At the urgent care clinic the patient's O2 saturation was 94% and there was a concerned that he may be hypoxic therefore he was sent to the ED. In the emergency department the patient had 1 episode of coughing with a small amount of dark red hematemesis. Vital signs revealed an elevated blood pressure. Lung exam revealed rales and rhonchi at the bases with no wheezing. Patient's exam was otherwise unremarkable and he appears well. Differential diagnosis: ?Includes but is not limited to pneumonia, bronchitis, bronchiectasis, pulmonary embolism, hemoptysis anemia, electrolyte abnormalities Course: 15:44 My independent interpretation patient's laboratory evaluation is as follows: CBC was normal. Coags were normal. Sodium low 131. BUN elevated 17 with a normal creatinine of 0.88. NT pro BNP elevated 356. Lactic acid normal 0.9. Troponin detectable but not elevated at 6.2. We will repeat troponin now. Chest x-ray consistent with a his chronic lung disease with no clear evidence for pneumonia or source for the hemoptysis. I did discuss the patient's presentation with the covering data officer, Dr. Jo. He recommended getting a CT angiogram l to look for pulmonary embolism , AVM or other sources of bleeding. Therefore I ordered blood cultures x2, CT pulmonary angiogram PE protocol, normal saline at 250 cc/hour x5 100 cc and ceftriaxone 1 g IV. 16:00 At the end of my shift, the patient's care was turned over to my colleague, Dr. Sanchez. Differential Diagnosis Differential Diagnoses: The differential diagnosis associated with the presentation includes (See above) Admission/Observation Consideration of admission/observation: Escalation of care including admission/observation considered (Yes) Consult Healthcare Provider Management of the patient was discussed with: Combatant Swimmer (Dr. Jo, on-call for pulmonology) Lab Data MDM Lab Attestation statement: I reviewed the patient's lab results. 08/05/25 13:29 08/05/25 13:29 Labs: Lab Results 08/05/25 08/05/25 Range/Units 13:29 15:59 WBC 10.5 (4.8-10.8) X10*3/uL RBC 4.45 L (4.60-5.80) X10*6/uL Hgb 14.6 (14.0-18.0) g/dl Hct 40.9 L (42.0-52.0) % MCV 91.9 (80.0-98.0) fL MCH 32.8 (27.0-33.0) pg MCHC 35.7 (31.0-36.0) g/dl RDW 13.0 (11.0-16.0) % Plt Count 224 (160-400) X10*3/uL MPV 9.8 (9.4-12.4) fL Immature Gran % (Auto) 0.6 H (0.0-0.4) % Neut % (Auto) 75.1 H (45-73) % Lymph % (Auto) 11.8 L (20-40) % [place] % (Auto) 10.8 (2-11) % Eos % (Auto) 0.6 (0-4) % Baso % (Auto) 1.1 (0-2) % Lymph # (Auto) 1.2 (1.2-4.9) X10*3/uL [place] # (Auto) 1.1 (0.1-1.2) X10*3/uL Eos # (Auto) 0.1 (0.0-0.4) X10*3/uL Baso # (Auto) 0.1 (0.0-0.2) X10*3/uL Abs Immat Gran (auto) 0.06 H (0.00-0.03) X10*3/uL Absolute Neuts (auto) 7.9 (2.0-8.3) x10*3/uL Absolute Nucleated RBC 0.000 (0.0-0.012) X10*3/uL Nucleated RBC % (auto) 0.0 (0.0-0.2) /100WBC PT 14.0 H (11.2-13.5) SEC INR 1.1 (0.9-1.1) APTT 35.0 H (26.7-34.1) SEC Sodium 131 L (135-145) mmol/L Potassium 4.0 (3.3-5.1) mmol/L Chloride 97 (96-108) mmol/L Carbon Dioxide 26 (22-29) mmol/L Anion Gap 12 (12-20) BUN 17 H (9-16) mg/dL Creatinine 0.88 (0.5-1.4) mg/dL Estim Creat Clear Calc 66.9 Estimated GFR > 60 Random Glucose 82 (60-115) mg/dL Lactic Acid 0.9 (0.5-2.0) mmol/L Calcium 9.4 (8.4-10.2) mg/dL Total Bilirubin 0.8 (0.0-1.0) mg/dL AST 24 (5-37) U/L ALT 7 (0-40) U/L Alkaline Phosphatase 76 (39-117) U/L Troponin I High Sens 6.2 D 6.1 (<3.5-35.0) ng/L NT-Pro-B Natriuret Pep 356.6 H (<300) pg/mL Total Protein 7.7 (6.5-8.0) g/dL Albumin 4.3 (3.5-5.0) g/dL Influenza Type A (PCR) NEGATIVE (Negative) Influenza Type B (PCR) NEGATIVE (Negative) RSV RNA Qual (PCR) NEGATIVE (Negative) SARS-CoV-2 RNA (RT-PCR) NEGATIVE (Negative) Independent Interpretation I performed an independent interpretation of an: EKG and Plain X-Ray Interpretation: My independent interpretation of the patient's two view chest x-ray is as follows: Increased interstitial markings right greater than left compared to chest x-ray from 05/24/2025 no significant change. My independent interpretation patient's 12 EKG done on 08/05/2025 at 12:53 hours is as follows: Sinus rhythm rate of 88, first-degree AV block with a CO interval 232 milliseconds, normal QRS duration QTC interval, no ST segment elevation, no ST segment depression, no significant T-wave abnormalities, no PACs, no PVCs. Compared to a previous EKG dated 01/13/2025 at 11:59 hours, no significant abnormalities, previous EKG did have PVCs. Radiology Impression Discussion of test interpretation with radiology: I have reviewed the radiologist's reading. Radiologist Impression: 2 view chest x-ray Comparison: CR/SR - XR CHEST 2 VIEWS - 05/24/25 11:25 EDT Findings: No consolidation. There is unchanged coarse increase of bilateral lung markings and patchy opacities. Possible left nipple shadow. No pleural effusion or pneumothorax. Heart size is normal. No acute fracture. IMPRESSION: Possible left nipple shadow. No consolidation. Stable chronic changes of the lung parenchyma. This document has been electronically signed by: Jarrod Shah MD on 08/05/2025 13:31:35 External Record Review External record reviewed: Inpatient record and Office record Chronic Conditions Patient?s care impacted by: Other (Interstitial lung disease, MAC chronic lung infection) Critical Care Time Critical Care Time Critical Care Time: Yes Total Critical Care Time: 35 Attestation: Critical Care: The patient was critically ill with a high probability of imminent or life threatening deterioration. I spent greater than 30 minutes of discontinuous time evaluating the patient,delivering critical care at the bedside, discussing and evaluating pertinent data with consultants. Critical care time does not include time spent performing separately billable procedures or teaching. Total time spent performing critical care was 35 minutes. Discharge Plan Discharge Clinical Impression: Cough with hemoptysis, Pneumonia Patient Disposition: Admitted As Inpatient Print Language: Georgian
[2025-08-05 13:11] VITALS: BP 137/64; PULSE 76; RESP 16; TEMP 36.7; O2SAT 95
[2025-08-05 13:33] LABS: MANUAL DIFF FLAG NO
[2025-08-05 13:35] LABS: Hematocrit 40.9 % (42.0-52.0); Hemoglobin 14.6 g/dl (14.0-18.0); Imm Gran Abs Auto 0.06 X10*3/uL (0.00-0.03); Imm Gran Pct Auto 0.6 % (0.0-0.4); Lymphocytes Absolute Auto 1.2 X10*3/uL (1.2-4.9); Mean Corpuscular HGB Conc 35.7 g/dl (31.0-36.0); Mean Corpuscular Hemoglobin 32.8 pg (27.0-33.0); Mean Corpuscular Volume 91.9 fL (80.0-98.0); NRBC Abs Auto 0.000 X10*3/uL (0.0-0.012); NRBC Pct Auto 0.0 /100WBC (0.0-0.2); Platelet Count 224 X10*3/uL (160-400); Red Blood Count 4.45 X10*6/uL (4.60-5.80); White Blood Count 10.5 X10*3/uL (4.8-10.8)
--- OUTSIDE RECORDS SUMMARY | 2025-08-05 13:38 | XMS_ITS | Clinical Summary ---
Author Organization [facility] Address [address] [place] [phone] Phone Care Team Providers Care It Associate Name Role Phone Robbie Kothari MD Primary Care Provider [phone] Allergies Active Allergy Reactions Criticality Noted Date Comments Latex Rash Low 02/02/2025 Bygtpglx-Ctpztbzwke-Ugnvfovoa 2024 Medications albuterol 2.5 mg /3 mL (0.083 %) nebulizer solution 2.5 mg. 5 Active coenzyme Q10 (CO Q-10) 10 mg capsule Co Q 10 Active senna (SENOKOT) 8.6 mg tablet Take 8.6 mg by mouth. 5 Active rifAMPin (RIFADIN) 300 MG capsule TAKE 2 CAPS BY MOUTH ONCE DAILY 5 Active albuterol 2.5 mg /3 mL (0.083 %) nebulizer solution 2.5 MG (3 ML) INHALED 2 TIMES A DAY FOR SHORTNESS OF BREATH OR WHEEZING Active ARIKAYCE 590 mg/8.4 mL NbSp 5 Active amLODIPine (NORVASC) 10 MG tablet Take 10 mg by mouth. 5 Active atorvastatin (LIPITOR) 10 MG tablet Take 10 mg by mouth daily. Active brimonidine (ALPHAGAN) 0.2 % ophthalmic solution INSTILL ONE DROP IN BOTH EYES TWICE A DAY, TWELEVE HOURS APART. 5 Active docusate sodium (COLACE) 100 MG capsule Take 100 mg by mouth. 5 Active finasteride (PROSCAR) 5 mg tablet Take 1 tablet by mouth every morning. 5 Active WIXELA INHUB 250-50 mcg/dose DISKUS INHALE 1 PUFF BY MOUTH EVERY 12 HOURS FOR 30 DAYS Active polyethylene glycol 3350 (MIRALAX ORAL) Take 17 g by mouth. Active tamsulosin (FLOMAX) 0.4 mg Cap Take 0.4 mg by mouth. Active azithromycin (ZITHROMAX) 500 MG tablet Take 500 mg by mouth daily. Active ibuprofen (ADVIL,MOTRIN) 200 MG tablet Take 200 mg by mouth every 6 (six) hours as needed for pain (specific location in comments). Active Active Problems No known active problems Encounters Date Type Department Care Team Description 08/05/2025 11:10 AM EST Office Visit [facility] [place] [id number] Semaj Etienne PA-C Cough, unspecified type (Primary Dx); Shortness of breath; Epistaxis from Last 3 Months Social History Tobacco [...] Health Maintenance Due Date Last Done Comments DEPRESSION SCREENING 1952 COVID-19 VACCINE ( season) 2025 06/07/2025, 06/22/2024, 07/03/2023, Additional history exists Adult Td,Tdap Booster 10/21/2031 10/21/2021, 016 ZOSTER VACCINES Completed 02/26/2023, 11/04/2022 RSV VACCINE Completed 08/24/2023 PNEUMOCOCCAL VACCINES (50+ years) Completed 06/22/2024, 07/12/2020, 11/27/2015 INFLUENZA VACCINE Completed 07/17/2025, , 07/03/2023, Additional history exists HEPATITIS A VACCINES Aged Out No long er eligible based on patient's age to complete this topic HIB VACCINES Aged Out No longer eligi ble based on patient's age to complete this topic MENINGOCOCCAL VACCINES (ACWY) Aged Out No longer eligible based on patient's age to complete this topic MENINGOCOCCAL VACCINES (B) Aged Out N o longer eligible based on patient's age to complete this topic Medical Devices Not on file Procedures Procedure Name Priority Date/Time Associated Diagnosis Comments POCT SARS-COV-2, INFLUENZA A/B, RSV, PCR Routine 08/05/2025 11:29 AM EST from Last 3 Months Results * POCT SARS-CoV-2, Influenza A/B, RSV, PCR (08/05/2025 11:29 AM EST) [facility] SARS-Cov-2 PCR Negative Negative 08/05/2025 12:10 PM EST [facility] Influenza A Negative Negative 08/05/2025 12:10 PM EST [facility] Influenza B Negative Negative 08/05/2025 12:10 PM EST [facility] RSV PCR Negative Negative 08/05/2025 12:10 PM EST [facility] Swab (Anterior Nares) 08/05/2025 11:29 AM EST 08/05/2025 12:10 PM EST Semaj Etienne PA-C LAB POCT DOCKED DEVICE U NSOLICTED RESULTS Final Result [facility] [address] [address], [facility] [phone] from Last 3 Months Additional Health Concerns Infection Onset Date Last Indicated Resp-Risk 08/05/2025 08/05/2025 Insurance MEDICARE REPLACEMENT MEDICARE REPLACEMENT MEDICARE REPLACEMENT MEDICARE REPLACEMENT MEDICARE REPLACEMENT MEDICARE REPLACEMENT Care Teams It Associate Relationship Specialty Start Date End Date Robbie Kothari MD [address] [place] [address] [place] [address] PCP - General Medical Oncology 08/05/25 Additional Source Comments The information contained in this document represents components of the legal health record. It is not the complete legal health record.[facility]
--- OUTSIDE RECORDS SUMMARY | 2025-08-05 13:38 | XMS_ITS | Encounter Summary ---
Author Organization [facility] Address [address] [place] [address] Care Team Providers Care Personal Care Aide Name Role Phone Gloria Preston MD Primary Care Provider [phone] Encounter Details Date Type Department Care Team (Late st Contact Info) Description 11/14/2024 Lab Requisition [facility] [address] [facility] [place] [address] Gloria Preston MD [address] [place] [phone] Encounter for other general examination Social History [...] AM EST) WBC 4.3(L) 4.8 - 10.8 K/[facility] LAB HEMETOLOGY METHOD 11/14/2024 10:05 AM [facility] RBC 4.00(L) 4.50 - 5.50 M/mcL LAB HEMETOLOGY METHOD 11/14/2024 10:05 AM [facility] Hemoglobin 13.0(L) 13.5 - 17.5 g/dL LAB HEMETOLOGY METHOD 11/14/2024 10:05 AM [facility] Hematocrit 37.6(L) 42.0 - 54.0 % LAB HEMETOLOGY METHOD 11/14/2024 10:05 AM [facility] MCV 93.5 79.0 - 98.0 FL LAB HEMETOLOGY METHOD 11/14/2024 10:05 AM [facility] LAB MCH 32.3(H) 27.0 - 32.0 pcg LAB HEMETOLOGY METHOD 11/14/2024 10:05 AM [facility] LAB MCHC 34.6 32.0 - 37.0 g/dL LAB HEMETOLOGY METHOD 11/14/2024 10:05 AM [facility] LAB RDW 12.4 11.0 - 15.0 % LAB HEMETOLOGY METHOD 11/14/2024 10:05 AM [facility] Platelets 368 130 - 400 K/mcL LAB HEMETOLOGY METHOD 11/14/2024 10:05 AM [facility] LAB MPV 9.7 7.0 - 11.0 FL LAB HEMETOLOGY METHOD 11/14/2024 10:05 AM [facility] NRBC 0.0 <1.0 % LAB HEMETOLOGY METHOD 11/14/2024 10:05 AM [facility] LAB NRBC Absolute 0.00 <0.10 K/mcL LAB HEMETOLOGY METHOD 11/14/2024 10:05 AM [facility] Neutrophils Relative 76.1 % LAB HEMETOLOGY METHOD 11/14/2024 10:05 AM [facility] Lymphocytes Relative 10.3 % LAB HEMETOLOGY METHOD 11/14/2024 10:05 AM [facility] Monocytes Relative 11.0 % LAB HEMETOLOGY METHOD 11/14/2024 10:05 AM [facility] Eosinophils Relative 1.2 % LAB HEMETOLOGY METHOD 11/14/2024 10:05 AM [facility] Basophils Relative 0.9 % LAB HEMETOLOGY METHOD 11/14/2024 10:05 AM [facility] Immature Granulocytes Relative 0.5 % LAB HEMETOLOGY METHOD 11/14/2024 10:05 AM [facility] Neutrophils Absolute 3.26 1.50 - 7.00 K/mcL LAB HEMETOLOGY METHOD 11/14/2024 10:05 AM [facility] Lymphocytes Absolute 0.44(L) 1.00 - 5.00 K/mcL LAB HEMETOLOGY METHOD 11/14/2024 10:05 AM [facility] Monocytes Absolute 0.47 0.20 - 1.00 K/mcL LAB HEMETOLOGY METHOD 11/14/2024 10:05 AM [facility] Eosinophils Absolute 0.05 0.00 - 0.50 K/mcL LAB HEMETOLOGY METHOD 11/14/2024 10:05 AM [facility] Basophils Absolute 0.04 0.00 - 0.20 K/mcL LAB HEMETOLOGY METHOD 11/14/2024 10:05 AM [facility] Immature Granulocytes Absolute 0.02 0.00 - 0.03 K/mcL LAB HEMETOLOGY METHOD 11/14/2024 10:05 AM [facility] Blood Venous blood specimen / Unknown Venipuncture / Unknown 11/14/2024 6:36 AM EST 11/14/2024 8:21 AM EST us Gloria Preston MD LAB BLOOD ORDERABLES Final Resu lt [facility] [address] [place] [address], [place] [phone] * (ABNORMAL) Basic metabolic panel (11/14/2024 6:36 AM EST) Sodium 135 133 - 145 mmol/L LAB CHEMISTRY METHOD 11/14/2024 10:43 AM [facility] Potassium 4.0 3.5 - 5.5 mmol/L LAB CHEMISTRY METHOD 11/14/2024 10:43 AM [facility] Chloride 101 96 - 110 mmol/L LAB CHEMISTRY METHOD 11/14/2024 10:43 AM [facility] CO2 24 21 - 32 mmol/L LAB CHEMISTRY METHOD 11/14/2024 10:43 AM [facility] Anion Gap 10 3 - 11 LAB CHEMISTRY METHOD 11/14/2024 10:43 AM [facility] Glucose 86 70 - 100 mg/dL LAB CHEMISTRY METHOD 11/14/2024 10:43 AM [facility] BUN 22 5 - 25 mg/dL LAB CHEMISTRY METHOD 11/14/2024 10:43 AM [facility] Creatinine 0.59(L) 0.70 - 1.30 mg/dL LAB CHEMISTRY METHOD 11/14/2024 10:43 AM [facility] eGFR 96 >=60 mL/min/1. 73m2 LAB CHEMISTRY METHOD 11/14/2024 10:43 AM [facility] Comment:Calculation based on the Chronic Kidney Disease Epidemiology Collaboration (CKD-EPI) equation refit without adjustment for race. BUN/Creatinine Ratio 37.3 LAB CHEMISTRY METHOD 11/14/2024 10:43 AM [facility] Calcium 9.0 8.5 - 10.5 mg/dL LAB CHEMISTRY METHOD 11/14/2024 10:43 AM EST [facility] Blood Venous blood specimen / Unknown Venipuncture / Unknown 11/14/2024 6:36 AM EST 11/14/2024 8:21 AM EST Gloria Preston MD LAB BLOOD ORDERABLES Final Resu lt [facility] [address] [place] [address], documented in this encounter Visit Diagnoses Diagnosis Encounter for other general examination documented in this encounter Care Teams Personal Care Aide Relationship Specialty Start Date End Date Gloria Preston MD [address] [place] [id number] PCP - General Hospitalist Medicine 11/05/24 documented as of this encounter
--- OUTSIDE RECORDS SUMMARY | 2025-08-05 13:38 | XMS_ITS | Encounter Summary ---
Author Organization [facility] Address [address] [place] [address] Care Team Providers Care Finance Specialist Name Role Phone Gloria Preston MD Primary Care Provider [phone] Encounter Details Date Type Department Care Team (Late st Contact Info) Description 11/10/[address] [facility] - Main Lab [address] [place] [address] Gloria Preston MD [address] [place] [address] Encounter for other general examination Social History [...] * Vitamin B12 (11/10/2024 6:06 AM EST) [facility] Vitamin B-12 413 250 - 900 pcg/mL LAB CHEMISTRY METHOD 11/10/2024 9:28 PM EST [facility] Blood Venous blood specimen / Unknown Venipuncture / Unknown 11/10/2024 6:06 AM EST 11/10/2024 8:03 AM EST Gloria Preston MD LAB BLOOD ORDERABLES Final Resu lt Performing Organization Address [facility]/ZIP Co de Phone Number [facility] [address] [place] [address], [place] [phone] * Thyroid stimulating hormone (11/10/2024 6:06 AM EST) [facility] TSH 1.57 0.40 - 4.00 mcIU/mL LAB CHEMISTRY METHOD 11/10/2024 9:51 PM EST [facility] Blood Venous blood specimen / Unknown Venipuncture / Unknown 11/10/2024 6:06 AM EST 11/10/2024 8:03 AM EST Gloria Preston MD LAB BLOOD ORDERABLES Final Resu lt [facility] [address] [place] [address], [place] [phone] * (ABNORMAL) CBC auto differential (11/10/2024 6:06 AM EST) [facility] WBC 6.0 4.8 - 10.8 K/[facility] LAB HEMETOLOGY METHOD 11/10/2024 8:44 AM EST [facility] RBC 3.80(L) 4.50 - 5.50 M/[facility] LAB HEMETOLOGY METHOD 11/10/2024 8:44 AM [facility] [...] 8:44 AM [facility] Eosinophils Relative 1.5 % LAB HEMETOLOGY METHOD 11/10/2024 8:44 AM [facility] Basophils Relative 1.2 % LAB HEMETOLOGY METHOD 11/10/2024 8:44 AM [facility] Immature Granulocytes Relative 0.5 % LAB HEMETOLOGY METHOD 11/10/2024 8:44 AM [facility] Neutrophils Absolute 4.29 1.50 [...] Resu lt [facility] [address] [place] [address], [place] [phone] * Magnesium (11/10/2024 6:06 AM EST) Pathologist [facility] Magnesium 2.0 1.9 - 2.6 mg/dL LAB CHEMISTRY METHOD 11/10/2024 9:04 AM [facility] Blood Venous blood specimen / Unknown Venipuncture / Unknown 11/10/2024 6:06 AM EST 11/10/2024 8:03 AM EST us Gloria Preston MD LAB BLOOD ORDERABLES Final Resu lt [facility] [address] [place] [address], [place] [phone] * (ABNORMAL) Basic metabolic panel (11/10/2024 6:06 AM EST) [facility] Sodium 136 133 - 145 mmol/L LAB [...] LAB CHEMISTRY METHOD 11/10/2024 9:04 AM EST [facility] eGFR 98 >=60 mL/min/1. 73m2 LAB CHEMISTRY METHOD 11/10/2024 9:04 AM EST [facility] Comment:Calculation based on the [...] Resu lt [facility] [address] [place] [address], documented in this encounter Visit Diagnoses Diagnosis Encounter for other general examination documented in this encounter Care Teams Finance Specialist Relationship Specialty Start Date End Date Gloria Preston MD [address] [place] [address] PCP - General Hospitalist Medicine 11/05/24 documented as of this encounter
--- OUTSIDE RECORDS SUMMARY | 2025-08-05 13:38 | XMS_ITS | Encounter Summary ---
Author Organization [facility] Address [address] [place] [address] Care Team Providers Care Picker Name Role Phone Gloria Preston MD Primary Care Provider [phone] Encounter Details Date Type Department Care Team (Late st Contact Info) Description 11/07/2024 Lab Requisition [facility] - Main Lab [address] [place] [address] Gloria Preston MD [address] [place] [address] Encounter for other general examination Social History [...] LAB CHEMISTRY METHOD 11/07/2024 1:06 PM EST [facility] Potassium 3.9 3.5 - 5.5 mmol/L LAB CHEMISTRY METHOD 11/07/2024 1:06 PM EST [facility] Chloride 99 96 - 110 mmol/L LAB CHEMISTRY METHOD 11/07/2024 1:06 PM [facility] CO2 22 21 - 32 mmol/L LAB CHEMISTRY METHOD 11/07/2024 1:06 PM [facility] Anion Gap 13(H) 3 - 11 LAB CHEMISTRY METHOD 11/07/2024 1:06 PM [facility] Glucose 78 70 - 100 mg/dL LAB CHEMISTRY METHOD 11/07/2024 1:06 PM [facility] BUN 20 5 - 25 mg/dL LAB CHEMISTRY METHOD 11/07/2024 1:06 PM [facility] Creatinine 0.55(L) 0.70 - 1.30 mg/dL LAB CHEMISTRY METHOD 11/07/2024 1:06 PM [facility] eGFR 98 >=60 mL/min/1. 73m2 LAB CHEMISTRY METHOD 11/07/2024 1:06 PM [facility] Comment:Calculation based on the Chronic Kidney Disease Epidemiology Collaboration (CKD-EPI) equation refit without adjustment for race. BUN/Creatinine Ratio 36.4 LAB CHEMISTRY METHOD 11/07/2024 1:06 PM [facility] Calcium 8.6 8.5 - 10.5 mg/dL LAB CHEMISTRY METHOD 11/07/2024 1:06 PM [facility] AST (SGOT) 44(H) 10 - 42 unit/L LAB CHEMISTRY METHOD 11/07/2024 1:06 PM [facility] Comment:Results verified by repeat testing ALT (SGPT) 41 10 - 60 unit/L LAB CHEMISTRY METHOD 11/07/2024 1:06 PM [facility] Comment:Results verified by repeat testing Alkaline Phosphatase 100 42 - 121 unit/L LAB CHEMISTRY METHOD 11/07/2024 1:06 PM [facility] Total Protein 6.4 6.0 - 8.0 g/dL LAB CHEMISTRY METHOD 11/07/2024 1:06 PM [facility] Albumin 2.7(L) 3.2 - 5.0 g/dL LAB CHEMISTRY METHOD 11/07/2024 1:06 PM EST [facility] Total Bilirubin 1.1 0.0 - 1.4 mg/dL LAB CHEMISTRY METHOD 11/07/2024 1:06 PM EST [facility] Blood Venous blood specimen / Unknown Venipuncture / Unknown 11/07/2024 5:23 AM EST 11/07/2024 10:38 AM EST us Gloria Preston MD LAB BLOOD ORDERABLES Final Resu lt [facility] [address] [place] [address], documented in this encounter Visit Diagnoses Diagnosis Encounter for other general examination documented in this encounter Care Teams Picker Relationship Specialty Start Date End Date Gloria Preston MD [address] [place] [address] PCP - General Hospitalist Medicine 11/05/24 documented as of this encounter
--- OUTSIDE RECORDS SUMMARY | 2025-08-05 13:38 | XMS_ITS | Patient Health Record ---
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) Active confirmed Q7(A), Q8(2B), Q9(1B,2 C) Vital Signs Blood pressure diastolic 60 mm Hg 07/04/2025 Height 6 ft 4 in in 07/04/2025 Blood pressure systolic 116 mm Hg 07/04/2025 Weight 150 lbs 07/04/2025 BMI 18.26 kg/m2 07/04/2025 Encounters Encounter Location Date Provider Diagnosis [address] [address] 09/27/2024 Ana Perica Tinea unguium B35.1 ; Pain in right toe(s) M79.674 and Pain in left toe(s) M79.[address] [address] 12/27/2024 Ana Perica Tinea unguium B35.1 ; Pain in right toe(s) M79.674 and Pain in left toe(s) M79.[address] [address] 03/28/2025 Ana Perica 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, with unspecified presence of clinical manifestation I70.203 ; Tinea unguium B35.1 ; Pain in right toe(s) M79.674 and Pain in left toe(s) M79.[address] [address] 07/04/2025 Ana Perica 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, with unspecified presence of clinical manifestation I70.203 ; Tinea unguium B35.1 ; Pain in right toe(s) M79.674 and Pain in left toe(s) M79.675 Assessments Encounter Date Diagnosis (ICD Code) Assessment Notes Treatment Notes Treatment Clinical Notes Section Notes 07/04/2025 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, with unspecified presence of clinical manifestation (ICD-10 - I70.203) Q7(A), Q8(2B), Q9(1B,2C) 03/28/2025 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, with unspecified presence of clinical manifestation (ICD-10 - I70.203) Q7(A), Q8(2B), Q9(1B,2C) 09/27/2024 Tinea unguium (ICD-10 - B35.1) 12/27/2024 Tinea unguium (ICD-10 - B35.1) 12/27/2024 Pain in right toe(s) (ICD-10 - M79.674) 09/27/2024 Pain in right toe(s) (ICD-10 - M79.674) 03/28/2025 Tinea unguium (ICD-10 - B35.1) 07/04/2025 Tinea unguium (ICD-10 - B35.1) 09/27/2024 Pain in left toe(s) (ICD-10 - M79.675) 07/04/2025 Pain in right toe(s) (ICD-10 - M79.674) 03/28/2025 Pain in right toe(s) (ICD-10 - M79.674) 12/27/2024 Pain in left toe(s) (ICD-10 - M79.675) 07/04/2025 Pain in left toe(s) (ICD-10 - M79.675) 03/28/2025 Pain in left toe(s) (ICD-10 - M79.675) Plan Of Treatment Next Appt Details Provider Name:Ana garduno, 10/11/2025 09:30:00 AM, [address] [facility], [place], [address], Insurance Providers Payer Name Payer Address Payer Phone Subscriber Number Group Number Insured Name Patient Relationship to Insured Coverage Start Date Coverage End Date [facility] [id number] [address] [place] [address] [id number] Freeman King Self - patient is the insured Medical (General) History Medical History History ICD Code Measles Mumps Chicken pox Stroke Surgical History Surgery Date(Month/Year) hernia colonoscopy Hospitalization History Reason Date(Month/Year) [facility]- Stroke 10/2024
--- OUTSIDE RECORDS SUMMARY | 2025-08-05 13:39 | XMS_ITS | Encounter Summary ---
Author Organization [facility] Address [address] [place] [address] Care Team Providers Care Aluminum Sheet Cutter Name Role Phone Gloria Preston MD Primary Care Provider [phone] Encounter Details Date Type Department Care Team (Late st Contact Info) Description 11/16/2024 Lab Requisition [facility] - Main Lab [address] [facility] [place] [address] Gloria Preston MD [address] [place] [address] Encounter for other general examination Social History [...] AM EST) WBC 3.8(L) 4.8 - 10.8 K/[facility] LAB HEMETOLOGY METHOD 11/16/2024 11:05 AM [facility] RBC 3.90(L) 4.50 - 5.50 M/mcL LAB HEMETOLOGY METHOD 11/16/2024 11:05 AM [facility] Hemoglobin 12.5(L) 13.5 - 17.5 g/dL LAB HEMETOLOGY METHOD 11/16/2024 11:05 AM [facility] Hematocrit 36.5(L) 42.0 - 54.0 % LAB HEMETOLOGY METHOD 11/16/2024 11:05 AM [facility] MCV 94.8 79.0 - 98.0 FL LAB HEMETOLOGY METHOD 11/16/2024 11:05 AM [facility] MCH 32.5(H) 27.0 - 32.0 pcg LAB HEMETOLOGY METHOD 11/16/2024 11:05 AM [facility] MCHC 34.2 32.0 - 37.0 g/dL LAB HEMETOLOGY METHOD 11/16/2024 11:05 AM [facility] RDW 13.0 11.0 - 15.0 % LAB HEMETOLOGY METHOD 11/16/2024 11:05 AM [facility] Platelets 307 130 - 400 K/mcL LAB HEMETOLOGY METHOD 11/16/2024 11:05 AM [facility] MPV 9.8 7.0 - 11.0 FL LAB HEMETOLOGY METHOD 11/16/2024 11:05 AM [facility] NRBC 0.0 <1.0 % LAB HEMETOLOGY METHOD 11/16/2024 11:05 AM [facility] NRBC Absolute 0.00 <0.10 K/mcL LAB HEMETOLOGY METHOD 11/16/2024 11:05 AM [facility] Neutrophils Relative 54.7 % LAB HEMETOLOGY METHOD 11/16/2024 11:05 AM [facility] Lymphocytes Relative 23.1 % LAB HEMETOLOGY METHOD 11/16/2024 11:05 AM [facility] Monocytes Relative 19.6 % LAB HEMETOLOGY METHOD 11/16/2024 11:05 AM [facility] Eosinophils Relative 0.5 % LAB HEMETOLOGY METHOD 11/16/2024 11:05 AM [facility] Basophils Relative 1.3 % LAB HEMETOLOGY METHOD 11/16/2024 11:05 AM [facility] Immature Granulocytes Relative 0.8 % LAB HEMETOLOGY METHOD 11/16/2024 11:05 AM [facility] Neutrophils Absolute 2.06 1.50 - 7.00 K/mcL LAB HEMETOLOGY METHOD 11/16/2024 11:05 AM [facility] Lymphocytes Absolute 0.87(L) 1.00 - 5.00 K/mcL LAB HEMETOLOGY METHOD 11/16/2024 11:05 AM [facility] Monocytes Absolute 0.74 0.20 - 1.00 K/mcL LAB HEMETOLOGY METHOD 11/16/2024 11:05 AM [facility] Eosinophils Absolute 0.02 0.00 - 0.50 K/mcL LAB HEMETOLOGY METHOD 11/16/2024 11:05 AM [facility] Basophils Absolute 0.05 0.00 - 0.20 K/mcL LAB HEMETOLOGY METHOD 11/16/2024 11:05 AM [facility] Immature Granulocytes Absolute 0.03 0.00 - 0.03 K/mcL LAB HEMETOLOGY METHOD 11/16/2024 11:05 AM [facility] Blood Venous blood specimen / Unknown Venipuncture / Unknown 11/16/2024 5:44 AM EST 11/16/2024 10:20 AM EST us Gloria Preston MD LAB BLOOD ORDERABLES Final Resu lt [facility] [address] [place] [address], [place] [phone] * (ABNORMAL) Basic metabolic panel (11/16/2024 5:44 AM EST) Sodium 135 133 - 145 mmol/L LAB CHEMISTRY METHOD 11/16/2024 2:30 PM [facility] Potassium 4.1 3.5 - 5.5 mmol/L LAB CHEMISTRY METHOD 11/16/2024 2:30 PM [facility] Chloride 99 96 - 110 mmol/L LAB CHEMISTRY METHOD 11/16/2024 2:30 PM [facility] CO2 25 21 - 32 mmol/L LAB CHEMISTRY METHOD 11/16/2024 2:30 PM [facility] Anion Gap 11 3 - 11 LAB CHEMISTRY METHOD 11/16/2024 2:30 PM [facility] Glucose 79 70 - 100 mg/dL LAB CHEMISTRY METHOD 11/16/2024 2:30 PM [facility] BUN 18 5 - 25 mg/dL LAB CHEMISTRY METHOD 11/16/2024 2:30 PM [facility] Creatinine 0.64(L) 0.70 - 1.30 mg/dL LAB CHEMISTRY METHOD 11/16/2024 2:30 PM [facility] eGFR 93 >=60 mL/min/1. 73m2 LAB CHEMISTRY METHOD 11/16/2024 2:30 PM [facility] Comment:Calculation based on the Chronic Kidney Disease Epidemiology Collaboration (CKD-EPI) equation refit without adjustment for race. BUN/Creatinine Ratio 28.1 LAB CHEMISTRY METHOD 11/16/2024 2:30 PM [facility] Calcium 8.9 8.5 - 10.5 mg/dL LAB CHEMISTRY METHOD 11/16/2024 2:30 PM EST [facility] Blood Venous blood specimen / Unknown Venipuncture / Unknown 11/16/2024 5:44 AM EST 11/16/2024 10:20 AM EST Gloria Preston MD LAB BLOOD ORDERABLES Final Resu lt [facility] [address] [place] [address], documented in this encounter Visit Diagnoses Diagnosis Encounter for other general examination documented in this encounter Care Teams Aluminum Sheet Cutter Relationship Specialty Start Date End Date Gloria Preston MD [address] [place] [address] PCP - General Hospitalist Medicine 11/05/24 documented as of this encounter
--- OUTSIDE RECORDS SUMMARY | 2025-08-05 13:39 | XMS_ITS | Patient Health Record ---
Author Organization [facility] Address [address] [place] [address] Care Team Providers Care Automatic Brine Mixer Operator Name Role Phone Robbie Kothari MD Primary Care Provider UnavailRobbie Koo Unavailable [phone] Reason For Referral No Information Medications Medication SIG (Take, Route, Fr equency, Duration) Notes Start Date End Date Status Co Q 10 Active Lipitor 10 MG Tablet 1 tablet Orally Once a day Active Social History Tobacco Use: Social History Observation Description Date Details (start date - stop date) Former Smoker NA - NA Social History Drugs/Alcohol: Social Info Question Answer Notes Alcohol Screen Did you have a drink containing alcohol in the past year? Yes How often did you have a drink containing alcohol in the past year? 2 to 3 times a week (3 points) How many drinks did you have on a typical day when you were drinking in the past year? 3 or 4 drinks (1 point) How often did you have 6 or more drinks on one occasion in the past year? Never (0 point) Points 4 Interpretation Positive Tobacco Use: Social Info Question Answer Notes Tobacco Use/Smoking Patient is a former smoker How long has it been since you last smoked? > 10 years Additional Details Category Social Info Options Details Miscellaneous: Marital status: Occupation: retired Section Notes: Nonsmoker; nio sig alcohol Problems Problem Type SNOMED Code ICD Code Onset Dates Problem Status W/U Status Risk Notes Problem Screening for malignant neoplasm of colon (659651302) Encounter for screening for malignant neoplasm of colon (Z12.11) Active confirmed Problem History of adenomatous polyp of colon (557637418) Hx of adenomatous colonic polyps (Z86.010) Active confirmed Problem Pre-procedure evaluation check (249105641) Pre-procedural examination (Z01.818) Active confirmed Plan Of Treatment Future Test Test Name Order Date COLONOSCOPY 06/15/2018 Insurance Providers Payer Name Payer Address Payer Phone Subscriber Number Group Number Insured Name Patient Relationship to Insured Coverage Start Date Coverage End Date MEDICARE OF [place] [address] [place] CULP [id number] ROCHA Self - patient is the insured [facility] Insurance C/O [facility] [address] [place] [address] [phone] [id number] ROCHA Self - patient is the insured Medical (General) History Medical History History ICD Code Denies [place],DM,CVA,Lung disease,renal dise ase Hyperlipidemia Colonoscopy 2002-small tubul ar adenoma removed; colonoscopy in 2008 was negative--just diverticulosis and internal hemorrhoids Surgical History Surgery Date(Month/Year) Left inguinal hernia Skin cancers with skin grafts
--- OUTSIDE RECORDS SUMMARY | 2025-08-05 13:39 | XMS_ITS | Clinical Summary ---
Author Organization [facility] Address [address] [place] [address] [place] [address] Phone Care Team Providers Care Electrolysist Name Role Phone Unavailable Primary Care Provider [...]
--- OUTSIDE RECORDS SUMMARY | 2025-08-05 13:39 | XMS_ITS | Encounter Summary ---
Author Organization [facility] Address [address] [place] [address] Care Team Providers Care Clinical Rn Liaison Name Role Phone Gloria Preston MD Primary Care Provider [phone] Encounter Details Date Type Department Care Team (Late st Contact Info) Description 11/18/2024 Lab Requisition [facility] - Main Lab [address] [facility] [place] [address] Gloria Preston MD [address] [place] [address] Encounter for other general examination Social History [...] PM EST 11/18/2024 3:36 PM EST us Gloira Preston MD LAB BLOOD ORDERABLES Final Resu lt Performing Organization Address [facility]/ZIP Co de Phone Number [facility] [address] [place] [address], [place] [phone] * Prolactin (11/18/2024 2:59 PM EST) Pathologist [facility] Prolactin 12.10 2.50 - 17.40 ng/mL LAB CHEMISTRY METHOD 11/18/2024 7:21 PM EST [facility] Blood Venous blood specimen / Unknown Venipuncture / Unknown 11/18/2024 2:59 PM EST 11/18/2024 3:36 PM EST us Gloria Preston MD LAB BLOOD ORDERABLES Final Resu lt Performing Organization Address [facility]/ZIP Co de Phone Number [facility] [address] [place] [address], [place] [phone] * (ABNORMAL) Magnesium (11/18/2024 2:59 PM EST) [facility] Magnesium 1.6(L) 1.9 - 2.6 mg/dL LAB CHEMISTRY METHOD 11/18/2024 7:07 PM EST [facility] Blood Venous blood specimen / Unknown Venipuncture / Unknown 11/18/2024 2:59 PM EST 11/18/2024 3:36 PM EST us Gloria Preston MD LAB BLOOD ORDERABLES Final Resu lt Performing Organization Address City/[facility]/ZIP Co de Phone Number [facility] [address] [place] [address], [place] [phone] * (ABNORMAL) Comprehensive metabolic panel (11/18/2024 2:59 [...] lt [facility] [address] [place] [address], [place] [phone] documented in this encounter Visit Diagnoses Diagnosis Encounter for other general examination documented in this encounter Care Teams Clinical Rn Liaison Relationship Specialty Start Date End Date Gloria Preston MD [address] [place] [address] PCP - General Hospitalist Medicine 11/05/24 documented as of this encounter
[2025-08-05 13:40] LABS: INTERNATIONAL NORM RATIO 1.1 (0.9-1.1); Prothrombin Time 14.0 SEC (11.2-13.5)
--- OUTSIDE RECORDS SUMMARY | 2025-08-05 13:40 | XMS_ITS | Clinical Summary ---
Author Organization [address] [facility] Address [address] [place] [address] Phone Care Team Providers Care Food Safety Manager Name Role Phone Gloria Preston MD Primary Care Provider Surgical History Surgery Date Site/Laterality Comments HERNIA [...] topic Insurance [employer] MEDICARE Care Teams Food Safety Manager Relationship Specialty Start Date End Date Gloria Preston MD [address] [place] [phone] PCP - General Hospitalist Medicine 11/05/24
--- OUTSIDE RECORDS SUMMARY | 2025-08-05 13:40 | XMS_ITS | Patient Health Record ---
Author Organization Robbie Kothari III, MD Address [address] [place] [address] DR PASTOR ARMAND CEDENO [address] Care Team Providers Care Field Coil Winder Name Role Phone Dr. Robbie Kothari III Primary Care Provider Allergies Allergen (clinical drug ingredient) Drug/Non Drug Allergy documented on EMR Reaction Allergy Type Onset Date Status No Known Drug Allergy Unknown Drug Allergy Active No Known Food Allergy Unknown Drug Allergy Active Results Component Value Reference Range Notes Hold Lt Blue - Possible Coag Reviewed date:10/30/2024 09:55:19 AM Interpretation: Performing Lab:[facility], [address] [place] [address] Notes/Report: Hold Lt Blue - Possible Coag SEE NOTE Specimen will be held untested for 4 hours. Call Hematology if testing is desired. Comprehensive Met. Panel Reviewed date:10/30/2024 09:55:19 AM Interpretation: Performing Lab:[facility], [address] [place] [address] Notes/Report: Sodium 131 135-145 mmol/L Potassium 4.2 [...] Magnesium Reviewed date:10/30/2024 09:55:19 AM Interpretation: Performing Lab:[address] [address] Notes/Report: Magnesium 1.5 1.6-2.6 mg/dL Troponin-I High Sensitivity Reviewed date:10/30/2024 09:55:19 AM Interpretation: Performing Lab:[facility], [address] [place] [address] Notes/Report: Troponin-I High Sensitivity 3.1 <3.5-35.0 ng/L The [place]an high sensitivity Troponin-I results should be used in conjunction with other diagnostic information such as ECG, clinical observations and information, and patient symptoms to aid in the diagnosis of [place]. SARS-CoV2/FLU/RSV Reviewed date:10/30/2024 09:55:19 AM Interpretation: Performing Lab:[address] [address] Notes/Report: Influenza A PCR NEGATIVE Negative Influenza [...] by authorized laboratories. Testing performed on the [employer] GeneXpert utilizing real-time RT-PCR. All SARS CoV2 and positive influenza A/B results are reported to [facility]. CT head for stroke Reviewed date:10/30/2024 09:55:19 AM Interpretation: Performing Lab: Notes/Report: [address] [address] [address] Scan Report Signed Patient: Freeman King MR#: [id number] 30 : 1940 Acct:[id number] Age/Sex: 84 / M ADM Date: 10/27/24 Loc: HO.ED Attending Dr: Ordering Physician: Alejandrina Mazariegos Date of Service: 10/27/24 Procedure(s): CT head for STROKE Accession Number(s): [id number] cc: Robbie Kothari MD; Alejandrina Mazariegos Report Number: [id number]: Total DLP = 799.00 mGy-cm EXAMINATION: CT [...] lobe. There is resultant mass effect and oxnl-if-oxvbl midline shift of 3 mm. There is [...] atrium. 3. There is 3 mm of fnom-gy-ahlzb midline shift. No impending herniation at this time. This critical result was discussed with Alejandrina Mazariegos at 12:11 PM, on 10/27/2024 via phone call. Electronically signed by: Zohaib Brown MD 10/27/2024 12:14 PM [facility] Dictated By: Zohaib Brown MD Signed By: <Electronically signed by Zohaib Brown MD in OV> 10/27/24 1214 DD/ 1148 TD/TT: 10/27/24 1156 Commercial Maintenance Technician: [place] [address] CT Scan Report Signed Patient: Jeremiah King MR#: [id number] 30 : 1940 Acct:[id number] Age/Sex: 84 / M ADM Date: 10/27/24 Loc: HO.ED Attending Dr: Ordering Physician: Alejandrina Mazariegos Date of Service: 10/27/24 Procedure(s): CT hea d for STROKE Accession Number(s): [id number] cc: Robbie Kothari MD; Alejandrina Mazariegos Report [...] There is resultant m ass effect and gdqa-ss-limhi midline shift of 3 mm. There is [...] atrium. 3. There is 3 mm of unyo-si-wmhnv midline shift. No impending herniation at this time. This critical result was discussed with Alejandrina Mazariegos at 12:11 PM, on 10/27/2024 via phone call. Electronically gurpreet d by: Zohaib Brown MD 10/27/2024 12:14 PM [facility] Dictated By: Zohaib Brown MD Signed By: <Electronically signed by Zohaib Brown MD in OV> 10/27/24 1214 DD/ 1148 TD/TT: 10/27/24 1156 Commercial Maintenance Technician: CT cervical spine wo con Reviewed date:10/30/2024 09:55:19 AM Interpretation: Performing Lab: Notes/Report: [address] [address] [address] Scan Report Signed Patient: Freeman King MR#: [id number] 30 : 1940 Acct:[id number] Age/Sex: 84 / M ADM Date: 10/27/24 Loc: HO.ED Attending Dr: Ordering Physician: Alejandrina Mazariegos Date of Service: 10/27/24 Procedure(s): CT cervical spine wo IV con Accession Number(s): [id number] cc: Robbie Kothari MD; Alejandrina Mazariegos Report Number: [id number]: Total DLP = 376.00 mGy-cm EXAMINATION: CT [...] 02:23 PM [facility] Dictated By: Zohaib Brown MD Signed By: <Electronically signed by Zohaib Brown MD in OV> 10/27/24 1423 DD/ 1212 TD/TT: 10/27/24 1334 Commercial Maintenance Technician: [place] [address] CT Scan Report Signed Patient: Jeremiah King MR#: [id number] 30 : 1940 Acct:[id number] Age/Sex: 84 / M ADM Date: 10/27/24 Loc: .ED Attending Dr: Ordering Physician: Alejandrina Mazariegos Date of Service: 10/27/24 Procedure(s): CT cer vical spine wo IV con Accession Number(s): [id number] cc: Robbie Kothari MD; Alejandrina Mazariegos Report [...] 02:23 PM [facility] Dictated By: Zohaib Brown MD Signed By: <Electronically signed by Zohaib Brown MD in OV> 10/27/24 1423 DD/ 1212 TD/TT: 10/27/24 1334 Commercial Maintenance Technician: XR chest 1V Reviewed date:10/30/2024 09:55:19 AM Interpretation: Performing Lab: Notes/Report: [address] [address] XRay Report Signed Patient: Freeman King MR#: [id number] 30 : 1940 Acct:[id number] Age/Sex: 84 / M ADM Date: 10/27/24 Loc: HO.ED Attending Dr: Ordering Physician: Alejandrina Mazariegos Date of Service: 10/27/24 Procedure(s): XR chest 1V Accession Number(s): [id number] cc: Robbie Kothari MD; Alejandrina Mazariegos EXAMINATION: [...] 01:41 PM [facility] Dictated By: Zohaib Brown MD Signed By: <Electronically signed by Zohaib Brown MD in OV> 10/27/24 1341 DD/ 1127 TD/TT: 10/27/24 1328 Commercial Maintenance Technician: [address] [address] XRay Report Signed Patient: Jeremiah King MR#: [id number] 30 : 1940 Acct:[id number] Age/Sex: 84 / M ADM Date: 10/27/24 Loc: HO.ED Attending Dr: Ordering Physician: Alejandrina Mazariegos Date of Service: 10/27/24 Procedure(s): XR chest 1V Accession Number(s): [id number] cc: Robbie Kothari MD; Alejandrina Mazariegos EXAMINATION: [...] 01:41 PM [facility] Dictated By: Zohaib Brown MD Signed By: <Electronically signed by Zohaib Brown MD in OV> 10/27/24 1341 DD/ 1127 TD/TT: 10/27/24 1328 Commercial Maintenance Technician: XR chest 2V Reviewed date:12/16/2024 03:30:40 PM Interpretation: Performing Lab: Notes/Report: [address] [address] XRay Report Signed Patient: rFeeman King MR#: [id number] 30 : 1940 Acct:[id number] Age/Sex: 84 / M ADM Date: 12/02/24 Loc: HO.XRAY Attending : Robbie Kothari MD Ordering Physician: Denilson Minor MD Date of Service: 12/02/24 Procedure(s): XR chest 2V Accession Number(s): [id number] cc: Robbie Kothari MD; Denilson Minor MD [...] 12/02/24 1150 DD/ 1042 TD/TT: 12/02/24 1052 Commercial Maintenance Technician: [place] [address] XRay Report Signed Patient: Jeremiah King MR#: [id number] [birth year] : 1940 Acct:[id number] Age/Sex: 84 / M ADM Date: 12/02/24 Loc: JILLIAN Attending Dr: Robbie Kothari MD Ordering Physician: Denilson Minor MD Date of Service: 12/02/24 Procedure(s): XR chest 2V Accession Number(s): [id number] cc: Robbie Kothari MD; Denilson Minor MD [...] 12/02/24 1150 DD/ 1042 TD/TT: 12/02/24 1052 Commercial Maintenance Technician: Complete Blood Count Auto Di ff Reviewed date:12/16/2024 03:30:40 PM Interpretation: Performing Lab:[facility], [address] [place] [address] Notes/Report: White Blood Count 5.2 4.8-10.8 X10*3/uL [...] Panel Reviewed date:12/16/2024 03:30:40 PM Interpretation: Performing Lab:[address] [address] Notes/Report: Sodium 136 135-145 mmol/L Potassium 3.9 [...] Magnesium Reviewed date:12/16/2024 03:30:40 PM Interpretation: Performing Lab:[facility], [address] [place] [address] Notes/Report: Magnesium 1.8 1.6-2.6 mg/dL XR chest 2V Reviewed date:12/16/2024 03:30:40 PM Interpretation: Performing Lab: Notes/Report: [address] [address] XRay Report Signed Patient: Freeman King MR#: [id number] [birth year] : 1940 Acct:[id number] Age/Sex: 84 / M ADM Date: 12/16/24 Loc: JILLIAN Attending Dr: Denilson Minor MD Ordering Physician: Denilson Minor MD Date of Service: 12/16/24 Procedure(s): XR chest 2V Accession Number(s): [id number] cc: Robbie Kothari MD; Denilson Minor MD [...] 12/16/24 1138 DD/ 1048 TD/TT: 12/16/24 1110 Commercial Maintenance Technician: [place] [address] XRay Report Signed Patient: Jeremiah King MR#: [id number] [birth year] : 1940 Acct:[id number] Age/Sex: 84 / M ADM Date: 12/16/24 Loc: .KIRTIAY Attending Dr: Denilson Minor MD Ordering Physician: Denilson Minor MD Date of Service: 12/16/24 Procedure(s): XR chest 2V Accession Number(s): [id number] cc: Robbie Kothari MD; Denilson Minor MD [...] 12/16/24 1138 DD/ 1048 TD/TT: 12/16/24 1110 Commercial Maintenance Technician: Complete Blood Count Auto Di ff Reviewed date:12/30/2024 08:37:25 PM Interpretation: Performing Lab:[facility], [address] [place] [address] Notes/Report: White Blood Count 6.5 4.8-10.8 X10*3/uL [...] NRBC Abs Auto 0.000 0.0-0.012 X10*3/uL Comprehensive [place]. Panel Fa Reviewed date:12/30/2024 08:37:25 PM Interpretation: Performing Lab:[address] [address] Notes/Report: Sodium 135 135-145 mmol/L Potassium 4.2 [...] Panel Reviewed date:12/30/2024 08:37:25 PM Interpretation: Performing Lab:[facility], [address] [place] [address] Notes/Report: Triglycerides 84 <150 mg/dL Desirable Triglyceride: [...] Antigen Reviewed date:12/30/2024 08:37:25 PM Interpretation: Performing Lab:[facility], [address] [place] [address] Notes/Report: Prostate Specific Antigen 2.95 <0.05-4.0 ng/mL PSA methodology: [email or web address] Alinity i Chemiluminescent Microparticle Immunoassay (CMIA) Complete Blood Count Auto Di ff Reviewed date:12/30/2024 08:37:25 PM Interpretation: Performing Lab:[facility], [address] [place] [address] Notes/Report: White Blood Count 9.1 4.8-10.8 X10*3/uL [...] te Reviewed date:12/30/2024 08:37:25 PM Interpretation: Performing Lab:[facility], [address] [place] [address] Notes/Report: Erythrocyte Sedimentation Rate 60 0-15 MM/HR Patients with polycythemia and many hemoglobin abnormalities may have depressed sed rates whereas patients with anemia may have elevated sed rates. Partial Thromboplastin Time Reviewed date:12/30/2024 08:37:25 PM Interpretation: Performing Lab:[facility], [address] [place] [address] Notes/Report: Partial Thromboplastin Time 33.0 26.0-36.8 SEC For information regarding the monitoring of direct thrombin inhibitors, please refer to Pharmacy. Comprehensive Met. Panel Reviewed date:12/30/2024 08:37:25 PM Interpretation: Performing Lab:[facility], [address] [place] [address] Notes/Report: Sodium 132 135-145 mmol/L Potassium 4.9 [...] Acid Reviewed date:12/30/2024 08:37:25 PM Interpretation: Performing Lab:[facility], [address] [place] [address] Notes/Report: Lactic Acid 1.0 0.5-2.0 mmol/L Uric Acid Reviewed date:12/30/2024 08:37:25 PM Interpretation: Performing Lab:[facility], [address] [place] [address] Notes/Report: Uric Acid 4.1 3.4-7.0 mg/dL Magnesium Reviewed date:12/30/2024 08:37:25 PM Interpretation: Performing Lab:[facility], [address] [place] [address] Notes/Report: Magnesium 1.7 1.6-2.6 mg/dL Troponin-I High Sensitivity Reviewed date:12/30/2024 08:37:25 PM Interpretation: Performing Lab:[facility], [address] [place] [address] Notes/Report: Troponin-I High Sensitivity 3.4 <3.5-35.0 ng/L The Duran high sensitivity Troponin-I results should be used in conjunction with other diagnostic information such as ECG, clinical observations and information, and patient symptoms to aid in the diagnosis of [place]. C Reactive Protein Reviewed date:12/30/2024 08:37:25 PM Interpretation: Performing Lab:[facility], [address] [place] [address] Notes/Report: C Reactive Protein 4.85 < or = 0.50 mg/dL B Type Natriuretic Peptide Reviewed date:12/30/2024 08:37:25 PM Interpretation: Performing Lab:[facility], [address] [place] [address] Notes/Report: B Type Natriuretic Peptide 82 <100 pg/mL Lipase Reviewed date:12/30/2024 08:37:25 PM Interpretation: Performing Lab:[facility], [address] [place] [address] Notes/Report: Lipase 43 8-78 U/L UA CC w/rflx Micro + Cult Reviewed date:12/30/2024 08:37:25 PM Interpretation: Performing Lab:[facility], [address] [place] [address] Notes/Report: Urine, Clean Catch Color Urine Yellow Appearance Urine Clear PH 7.5 5.0-9.0 Glucose Urine UA Negative Negative mg/dL Urine Blood Negative Negative Specific [place] - Urine >= 1.030 1.005-1.025 Urine Protein Negative Neg-Trace mg/dL Urine Ketones Negative Negative mg/dL Nitrite Urine Negative Negative Leukocyte Esterase Urine Negative Negative SARS-CoV2/FLU/RSV Reviewed date:12/30/2024 08:37:25 PM Interpretation: Performing Lab:[address] [address] Notes/Report: Influenza A PCR NEGATIVE Negative Influenza [...] by authorized laboratories. Testing performed on the [employer] GeneXpert utilizing real-time RT-PCR. All SARS CoV2 and positive influenza A/B results are reported to [facility]. Blood Culture (First) Reviewed date:01/14/2025 08:40:47 PM Interpretation: Performing Lab:[address] [address] Notes/Report: Blood Culture (First) No growth after 5 days. Blood Culture (Second) Reviewed date:01/14/2025 08:40:47 PM Interpretation: Performing Lab:[facility], [address] [place] [address] Notes/Report: Blood Culture (Second) No growth after [address] angio head neck Reviewed date:12/30/2024 08:37:25 PM Interpretation: Performing Lab: Notes/Report: [address] [address] [address] Scan Report Signed Patient: Freeman King MR#: [id number] [birth year] : 1940 Acct:[id number] Age/Sex: 84 / M ADM Date: 12/30/24 Loc: HO.ED Attending Dr: Ordering Physician: Rahul Zamora MD Date of Service: 12/30/24 Procedure(s): CT angio head neck Accession Number(s): [id number] cc: Robbie Kothari MD; Rahul Zamora MD Report Number: [id number]: Total DLP = 1652.00 mGy-cm EXAMINATION: CTA [...] intimal flap. Superior cerebellar arteries are patent. 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 No focal stenosis. [...] 12/30/24 1225 DD/ 1133 TD/TT: 12/30/24 1155 Commercial Maintenance Technician: [address] [address] [address] Scan Report Signed Patient: Jeremiah King MR#: [id number] [birth year] : 1940 Acct:[id number] Age/Sex: 84 / M ADM Date: 12/30/24 Loc: HO.ED Attending Dr: Ordering Physician: Rahul Zamora MD Date of Service: 12/30/24 Procedure(s): CT ang io head neck Accession Number(s): [id number] cc: Robbie Kothari MD; Rahul Zamora MD [...] intimal flap. Superior cerebellar arteries are patent. 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 No focal stenosis. [...] 12/30/24 1225 DD/ 1133 TD/TT: 12/30/24 1155 Commercial Maintenance Technician: XR wrist RT 2V Reviewed date:12/30/2024 08:37:25 PM Interpretation: Performing Lab: Notes/Report: [address] [address] XRay Report Signed Patient: Freeman King MR#: [id number] [birth year] : 1940 Acct:[id number] Age/Sex: 84 / M ADM Date: 12/30/24 Loc: HO.ED Attending Dr: Ordering Physician: Rahul Zamora MD Date of Service: 12/30/24 Procedure(s): XR wrist RT 2V Accession Number(s): [id number] cc: Robbie Kothari MD; Rahul Zamora MD [...] 12/30/24 1300 DD/ 1243 TD/TT: 12/30/24 1255 Commercial Maintenance Technician: [address] [place] [address] XRay Report Signed Patient: Jeremiah King MR#: [id number] [birth year] : 1940 Acct:[id number] Age/Sex: 84 / M ADM Date: 12/30/24 Loc: .ED Attending Dr: Ordering Physician: Rahul Zamora MD Date of Service: 12/30/24 Procedure(s): XR wri st RT 2V Accession Number(s): [id number] cc: Robbie Kothari MD; Rahul Zamora MD [...] 12/30/24 1300 DD/ 1243 TD/TT: 12/30/24 1255 Commercial Maintenance Technician: XR chest 1V Reviewed date:12/30/2024 08:37:25 PM Interpretation: Performing Lab: Notes/Report: [address] [address] XRay Report Signed Patient: Freeman King MR#: [id number] [birth year] : 1940 Acct:[id number] Age/Sex: 84 / M ADM Date: 12/30/24 Loc: .ED Attending Dr: Ordering Physician: Rahul Zamora MD Date of Service: 12/30/24 Procedure(s): XR chest 1V Accession Number(s): [id number] cc: Robbie Kothari MD; Rahul Zamora MD [...] 12/30/24 1210 DD/ 1031 TD/TT: 12/30/24 1149 Commercial Maintenance Technician: [place] [address] XRay Report Signed Patient: Jeremiah King MR#: [id number] [birth year] : 1940 Acct:[id number] Age/Sex: 84 / M ADM Date: 12/30/24 Loc: .ED Attending Dr: Ordering Physician: Rahul Zamora MD Date of Service: 12/30/24 Procedure(s): XR chest 1V Accession Number(s): [id number] cc: Robbie Kothari MD; Rahul Zamora MD [...] 12/30/24 1210 DD/ 1031 TD/TT: 12/30/24 1149 Commercial Maintenance Technician: XR hand RT min 3V Reviewed date:12/30/2024 08:37:25 PM Interpretation: Performing Lab: Notes/Report: [address] [address] XRay Report Signed Patient: Freeman King MR#: [id number] [birth year] : 1940 Acct:[id number] Age/Sex: 84 / M ADM Date: 12/30/24 Loc: .ED Attending Dr: Ordering Physician: Rahul Zamora MD Date of Service: 12/30/24 Procedure(s): XR hand RT min 3V Accession Number(s): [id number] cc: Robbie Kothari MD; Rahul Zamora MD [...] 12/30/24 1301 DD/ 1243 TD/TT: 12/30/24 1255 Commercial Maintenance Technician: [address] [address] XRay Report Signed Patient: Jeremiah King MR#: [id number] [birth year] : 1940 Acct:[id number] Age/Sex: 84 / M ADM Date: 12/30/24 Loc: HO.ED Attending Dr: Ordering Physician: Rahul Zamora MD Date of Service: 12/30/24 Procedure(s): XR camacho d RT min 3V Accession Number(s): [id number] cc: Robbie Kothari MD; Rahul Zamora MD [...] 12/30/24 1301 DD/ 1243 TD/TT: 12/30/24 1255 Commercial Maintenance Technician: Renae Coates Hematolo gy Reviewed date:01/01/2025 10:45:53 AM Interpretation: Performing Lab:[facility], [address] [place] [address] Notes/Report: Hold Lav - Possible Hematology SEE NOTE Specimen will be held untested for 8 hours. Call Hematology if testing is desired. Basic Metabolic Panel Reviewed date:01/01/2025 10:45:53 AM Interpretation: Performing Lab:[facility], [address] [place] [address] Notes/Report: Sodium 135 135-145 mmol/L Potassium 4.2 [...] ff Reviewed date:01/14/2025 08:40:47 PM Interpretation: Performing Lab:[facility], [address] [place] [address] Notes/Report: White Blood Count 7.5 4.8-10.8 X10*3/uL [...] Coag Reviewed date:01/14/2025 08:40:47 PM Interpretation: Performing Lab:[facility], [address] [place] [address] Notes/Report: Hold Lt Blue - Possible Coag SEE NOTE Specimen will be held untested for 4 hours. Call Hematology if testing is desired. Liver Panel Reviewed date:01/14/2025 08:40:47 PM Interpretation: Performing Lab:[facility], [address] [place] [address] Notes/Report: Bilirubin Total 1.0 0.0-1.0 mg/dL Bilirubin Direct 0.3 0.0-0.5 mg/dL Aspartate Amino Transferase 28 5-37 U/L Slight Hemolysis.Interpret result with caution. Alanine Aminotransferase 12 0-40 U/L Total Protein 7.4 6.5-8.0 g/dL Albumin Level 3.6 3.5-5.0 g/dL Alkaline Phosphatase 70 39-117 U/L Basic Metabolic Panel Reviewed date:01/14/2025 08:40:47 PM Interpretation: Performing Lab:[facility], [address] [place] [address] Notes/Report: Sodium 130 135-145 mmol/L Potassium 4.4 [...] Acid Reviewed date:01/14/2025 08:40:47 PM Interpretation: Performing Lab:[facility], [address] [place] [address] Notes/Report: Lactic Acid 0.8 0.5-2.0 mmol/L Magnesium Reviewed date:01/14/2025 08:40:47 PM Interpretation: Performing Lab:[address] [address] Notes/Report: Magnesium 1.8 1.6-2.6 mg/dL Troponin-I High Sensitivity Reviewed date:01/14/2025 08:40:47 PM Interpretation: Performing Lab:[address] [address] Notes/Report: Troponin-I High Sensitivity 3.3 <3.5-35.0 ng/L The [place]an high sensitivity Troponin-I results should be used in conjunction with other diagnostic information such as ECG, clinical observations and information, and patient symptoms to aid in the diagnosis of [place]. C Reactive Protein Reviewed date:01/14/2025 08:40:47 PM Interpretation: Performing Lab:[address] [address] Notes/Report: C Reactive Protein 13.61 < or = 0.50 mg/dL B Type Natriuretic Peptide Reviewed date:01/14/2025 08:40:47 PM Interpretation: Performing Lab:[facility], [address] [place] [address] Notes/Report: B Type Natriuretic Peptide 53 <100 pg/mL Procalcitonin Reviewed date:01/14/2025 08:40:47 PM Interpretation: Performing Lab:[facility], [address] [place] [address] Notes/Report: Procalcitonin 0.04 Procalcitonin (PCT) Reference Range: [...] results from different laboratories and methodologies. References: [employer]/Society of Critical Care [...] 510(k) substantial equivalence determination decision summary for [facility]ST[facility]. http://www.accessda ta.fda.fov/cdrh_doc s/reviews/C856200.p df. Published September 2004. Accessed February 2017. Gram stain Reviewed date:01/17/2025 05:36:47 AM Interpretation: Performing Lab:[facility], [address] [place] [address] Notes/Report: Gram stain Gram stain results: Gram stain 4+ polys Gram stain 1+ epithelial cells Gram stain 4+ red blood cells Gram stain 1+ Gram-positive cocci UA CC w/rflx Micro + Cult Reviewed date:01/14/2025 08:40:47 PM Interpretation: Performing Lab:[address] [address] Notes/Report: Urine, Catheterized Color Urine Yellow Appearance Urine Clear PH 6.0 5.0-9.0 Glucose Urine UA Negative Negative mg/dL Urine Blood Negative Negative Specific [place] - Urine 1.020 1.005-1.025 Urine Protein Negative Neg-Trace mg/dL Urine Ketones Negative Negative mg/dL Nitrite Urine Negative Negative Leukocyte Esterase Urine Negative Negative SARS-CoV2/FLU/RSV Reviewed date:01/14/2025 08:40:47 PM Interpretation: Performing Lab:[address] [address] Notes/Report: Influenza A PCR NEGATIVE Negative Influenza [...] by authorized laboratories. Testing performed on the [employer] GeneXpert utilizing real-time RT-PCR. All SARS CoV2 and positive influenza A/B results are reported to [facility]. Blood Culture (First) Reviewed date:02/12/2025 08:15:10 PM Interpretation: Performing Lab:[facility], [address] [place] [address] Notes/Report: Blood Culture (First) No growth after 5 days. Blood Culture (Second) Reviewed date:02/12/2025 08:15:10 PM Interpretation: Performing Lab:[address] [address] Notes/Report: Blood Culture (Second) No growth after 5 days. Sputum Culture Reviewed date:01/17/2025 05:36:47 AM Interpretation: Performing Lab:[facility], [address] [place] [address] Notes/Report: Sputum Culture BAP Sputum Culture 2+ Mixed respiratory ramon. CT chest wo con Reviewed date:01/14/2025 08:40:47 PM Interpretation: Performing Lab: Notes/Report: [address] [address] [address] Scan Report Signed Patient: Freeman King MR#: [id number] 30 : 1940 Acct:[id number] Age/Sex: 84 / M ADM Date: 01/13/25 Loc: .S3 358-[address]: Tommy Rodriguez MD Ordering Physician: Linette Brown Date of Service: 01/13/25 Procedure(s): CT chest wo IV con Accession Number(s): [id number] cc: Linette Brown; Robbie Kothari MD Report Number: [id number]: Total DLP = 336.00 mGy-cm CLINICAL HISTORY: [...] OV> 01/13/25 174 DD/ 45 TD/TT: 01/13/251745 Commercial Maintenance Technician: [address] [address] [address] Scan Report Signed Patient: Jeremiah King MR#: [id number] [birth year] : 1940 Acct:[id number] Age/Sex: 84 / M ADM Date: 01/13/25 Loc: HO.S3 358-[address]: Tommy Rodriguez MD Ordering Physician: Linette Brown Date of Service: 01/13/25 Procedure(s): CT yur[address] st wo IV con Accession Number(s): [id number] cc: Linette Brown; Robbie Kothari MD Report [...] 01/13/25 1747 DD/ 1746 TD/TT: 01/13/25 174 Commercial Maintenance Technician: CT head/brain wo con Reviewed date:01/14/2025 08:40:47 PM Interpretation: Performing Lab: Notes/Report: [address] [address] [address] Scan Report Signed Patient: Freeman King MR#: [id number] [birth year] : 1940 Acct:[id number] Age/Sex: 84 / M ADM Date: 01/13/25 Loc: HO.ED Attending Dr: Ordering Physician: Taras Spencer MD Date of Service: 01/13/25 Procedure(s): CT head/brain wo IV con Accession Number(s): [id number] cc: Robbie Kothari MD; Taras Spencer MD Report Number: [id number]: Total DLP = 726.00 mGy-cm EXAMINATION: CT [...] MD 01/13/2025 12:35 PM EDT Dictated By: Lázaor Elias MD Signed By: <Electronically signed by Lázaro Monique MD in OV> 01/13/25 1235 DD/ 1215 TD/TT: 01/13/25 1226 Commercial Maintenance Technician: [address] [address] [address] Scan Report Signed Patient: Jeremiah King MR#: [id number] [birth year] : 1940 Acct:[id number] Age/Sex: 84 / M ADM Date: 01/13/25 Loc: HO.ED Attending Dr: Ordering Physician: Taras Spencer MD Date of Service: 01/13/25 Procedure(s): CT head/brain wo IV con Accession Number(s): [id number] cc: Robbie Kothari MD; Taras Spencer MD [...] 01/13/25 1235 DD/ 1215 TD/TT: 01/13/25 1226 Commercial Maintenance Technician: XR chest 1V Reviewed date:01/14/2025 08:40:47 PM Interpretation: Performing Lab: Notes/Report: [address] [address] XRay Report Signed Patient: Freeman King MR#: [id number] [birth year] : 1940 Acct:[id number] Age/Sex: 84 / M ADM Date: 01/13/25 Loc: HO.ED Attending Dr: Ordering Physician: Taras Spencer MD Date of Service: 01/13/25 Procedure(s): XR chest 1V Accession Number(s): [id number] cc: Robbie Kothari MD; Taras Spencer MD [...] 01/13/25 1228 DD/ 1222 TD/TT: 01/13/25 1222 Commercial Maintenance Technician: [address] [address] XRay Report Signed Patient: Jeremiah King MR#: [id number] [birth year] : 1940 Acct:[id number] Age/Sex: 84 / M ADM Date: 01/13/25 Loc: HO.ED Attending Dr: Ordering Physician: Taras Spencer MD Date of Service: 01/13/25 Procedure(s): XR chest 1V Accession Number(s): [id number] cc: Robbie Kothari MD; Taras Spencer MD [...] 01/13/25 1228 DD/ 1222 TD/TT: 01/13/25 1222 Commercial Maintenance Technician: Hold Lav - Possible Hematolo gy Reviewed date:01/14/2025 08:40:46 PM Interpretation: Performing Lab:[facility], [address] [place] [address] Notes/Report: Hold Lav - Possible Hematology SEE NOTE Specimen will be held untested for 8 hours. Call Hematology if testing is desired. Basic Metabolic Panel Reviewed date:01/14/2025 08:40:47 PM Interpretation: Performing Lab:[facility], [address] [place] [address] Notes/Report: Sodium 130 135-145 mmol/L Potassium 4.0 [...] Urine Reviewed date:01/14/2025 08:40:47 PM Interpretation: Performing Lab:[address] [address] Notes/Report: Osmolality Urine 445 059-2376 mosm/kg Sodium Urine Random Reviewed date:01/14/2025 08:40:47 PM Interpretation: Performing Lab:[address] [address] Notes/Report: Sodium Urine Random 93.0 Vancomycin Random Reviewed date:01/14/2025 08:40:47 PM Interpretation: Performing Lab:[address] [address] Notes/Report: Vancomycin Random 9.3 15-20 mcg/mL Complete Blood Count Auto Di ff Reviewed date:01/15/2025 06:45:37 AM Interpretation: Performing Lab:[address] [address] Notes/Report: White Blood Count 5.0 4.8-10.8 X10*3/uL [...] Hematocrit Reviewed date:01/17/2025 05:36:47 AM Interpretation: Performing Lab:[address] [address] Notes/Report: Hemoglobin 11.9 14.0-18.0 g/dl Hematocrit 33.2 42.0-52.0 % Basic Metabolic Panel Reviewed date:01/15/2025 06:45:37 AM Interpretation: Performing Lab:[address] [address] Notes/Report: Sodium 135 135-145 mmol/L Potassium 3.8 [...] gy Reviewed date:01/17/2025 05:36:47 AM Interpretation: Performing Lab:[address] [address] Notes/Report: Hold Lav - Possible Hematology SEE NOTE Specimen will be held untested for 8 hours. Call Hematology if testing is desired. Creatinine Reviewed date:01/17/2025 05:36:47 AM Interpretation: Performing Lab:[address] [address] Notes/Report: Creatinine 0.77 0.5-1.4 mg/dL Creatinine Clr [...] ff Reviewed date:02/26/2025 07:54:27 AM Interpretation: Performing Lab:[address] [address] Notes/Report: White Blood Count 6.6 4.8-10.8 X10*3/uL [...] NRBC Abs Auto 0.000 0.0-0.012 X10*3/uL Comprehensive [place]. Panel Fa st Reviewed date:02/26/2025 07:54:27 AM Interpretation: Performing Lab:[facility], [address] [place] [address] Notes/Report: Sodium 135 135-145 mmol/L Potassium 4.3 [...] Panel Reviewed date:02/26/2025 07:54:27 AM Interpretation: Performing Lab:[facility], [address] [place] [address] Notes/Report: Triglycerides 58 <150 mg/dL Desirable Triglyceride: [...] date:02/26/2025 07:54:27 AM Interpretation: Performing Lab: Notes/Report: [address] [address] XRay Report Signed Patient: Freeman King MR#: [id number] [birth year] : 1940 Acct:[id number] Age/Sex: 85 / M ADM Date: 02/23/25 Loc: HO.KIRTIAY Attending Dr: Denilson Minor MD Ordering Physician: Denilson Minor MD Date of Service: 02/23/25 Procedure(s): XR chest 2V Accession Number(s): [id number] cc: Robbie Kothari MD; Denilson Minor MD [...] in OV> 02/23/2553 DD/ 6 TD/TT: 02/23/25835 Commercial Maintenance Technician: [place] [address] XRay Report Signed Patient: Jeremiah King MR#: [id number] [birth year] : 1940 Acct:[id number] Age/Sex: 85 / M ADM Date: 02/23/25 Loc: HO.XRAY Attending Dr: Denilson Minor MD Ordering Physician: Denilson Minor MD Date of Service: 02/23/25 Procedure(s): XR chest 2V Accession Number(s): [id number] cc: Robbie Kothari MD; Denilson Minor MD [...] 02/23/25 0853 DD/ 6 TD/TT: 02/23/25 0836 Commercial Maintenance Technician: XR chest 2V Reviewed date:04/15/2025 07:11:05 PM Interpretation: Performing Lab: Notes/Report: [address] [address] XRay Report Signed Patient: Freeman King MR#: [id number] [birth year] : 1940 Acct:[id number] Age/Sex: 85 / M ADM Date: 04/12/25 Loc: JILLIAN Attending Dr: Denilson Minor MD Ordering Physician: Denilson Minor MD Date of Service: 04/12/25 Procedure(s): XR chest 2V Accession Number(s): [id number] cc: Robbie Kothari MD; Denilson Minor MD [...] 04/12/25 1430 DD/ 1411 TD/TT: 04/12/25 1426 Commercial Maintenance Technician: [address] [address] XRay Report Signed Patient: Jeremiah King MR#: [id number] [birth year] : 1940 Acct:[id number] Age/Sex: 85 / M ADM Date: 04/12/25 Loc: JILLIAN Attending Dr: Denilson Minor MD Ordering Physician: Denilson Minor MD Date of Service: 04/12/25 Procedure(s): XR chest 2V Accession Number(s): [id number] cc: Robbie Kothari MD; Denilson Minor MD [...] 04/12/25 1430 DD/ 1411 TD/TT: 04/12/25 1426 Commercial Maintenance Technician: Complete Blood Count Auto Di ff Reviewed date:04/24/2025 03:36:17 PM Interpretation: Performing Lab:[facility], [address] [place] [address] Notes/Report: White Blood Count 6.0 4.8-10.8 X10*3/uL [...] te Reviewed date:04/24/2025 03:36:17 PM Interpretation: Performing Lab:[address] [address] Notes/Report: Erythrocyte Sedimentation Rate 21 0-15 MM/HR Patients with polycythemia and many hemoglobin abnormalities may have depressed sed rates whereas patients with anemia may have elevated sed rates. Liver Panel Reviewed date:04/24/2025 03:36:17 PM Interpretation: Performing Lab:[address] [address] Notes/Report: Bilirubin Total 0.8 0.0-1.0 mg/dL Bilirubin Direct 0.3 0.0-0.5 mg/dL Aspartate Amino Transferase 25 5-37 U/L Alanine Aminotransferase 13 0-40 U/L Total Protein 7.6 6.5-8.0 g/dL Albumin Level 4.2 3.5-5.0 g/dL Alkaline Phosphatase 84 39-117 U/L Basic Metabolic Panel Reviewed date:04/24/2025 03:36:17 PM Interpretation: Performing Lab:[address] [address] Notes/Report: Sodium 136 135-145 mmol/L Potassium 4.2 [...] date:04/24/2025 03:36:17 PM Interpretation: Performing Lab: Notes/Report: [address] [address] Ultrasound Report Signed Patient: Freeman King MR#: [id number] [birth year] : 1940 Acct:[id number] Age/Sex: 85 / M ADM Date: 04/24/25 Loc: HO.US Attending Dr: Irene MADRID Ordering Physician: Irene Fam Date of Service: 04/24/25 Procedure(s): US retroperitoneal comp Accession Number(s): [id number] cc: Robbie Kothari MD; Irene Fam EXAMINATION: [...] 04/24/25 1049 DD/ 1000 TD/TT: 04/24/25 1030 Commercial Maintenance Technician: [place] [address] Ultrasound Report Signed Patient: Jeremiah King MR#: [id number] [birth year] : 1940 Acct:[id number] Age/Sex: 85 / M ADM Date: 04/24/25 Loc: HO.US Attending Dr: Irene JEFFPROSEANNA Ordering Physician: Irene Fam Date of Service: 04/24/25 Procedure(s): US retroperitoneal comp Accession Number(s): [id number] cc: Robbie Kothari MD; Irene Fam EXAMINATION: [...] 04/24/25 1049 DD/ 1000 TD/TT: 04/24/25 1030 Commercial Maintenance Technician: XR chest 2V Reviewed date:05/29/2025 12:59:13 PM Interpretation: Performing Lab: Notes/Report: [address] [address] XRay Report Signed Patient: Freeman King MR#: [id number] [birth year] : 1940 Acct:[id number] Age/Sex: 85 / M ADM Date: 05/24/25 Loc: HO.XRAY Attending Dr: Denilson Minor MD Ordering Physician: Denilson Minor MD Date of Service: 05/24/25 Procedure(s): XR chest 2V Accession Number(s): [id number] cc: Robbie Kothari MD; Denilson Minor MD [...] 05/24/25 1206 DD/ 1125 TD/TT: 05/24/25 1132 Commercial Maintenance Technician: [place] [address] XRay Report Signed Patient: Jeremiah King MR#: [id number] [birth year] : 1940 Acct:[id number] Age/Sex: 85 / M ADM Date: 05/24/25 Loc: JILLIAN Attending Dr: Denilson Minor MD Ordering Physician: Denilson Minor MD Date of Service: 05/24/25 Procedure(s): XR chest 2V Accession Number(s): [id number] cc: Robbie Kothari MD; Denilson Minor MD [...] 05/24/25 1206 DD/ 1125 TD/TT: 05/24/25 1132 Commercial Maintenance Technician: Prostate Specific Antigen Reviewed date:07/25/2025 09:03:21 AM Interpretation: Performing Lab:[address] [address] Notes/Report: Prostate Specific Antigen 2.49 <0.05-4.0 ng/mL PSA methodology: Druan Alinity i Chemiluminescent Microparticle Immunoassay (CMIA) Complete Blood Count Auto Di ff (Not yet reviewed by provider) Interpretation: Performing Lab:[address] [address] Notes/Report: White Blood Count 10.5 4.8-10.8 X10*3/uL Red Blood Count 4.45 4.60-5.80 X10*6/uL Hemoglobin 14.6 14.0-18.0 g/dl Hematocrit 40.9 42.0-52.0 % Mean Corpuscular Volume 91.9 80.0-98.0 fL Mean Corpuscular Hemoglobin 32.8 27.0-33.0 pg Mean Corpuscular HGB Conc 35.7 31.0-36.0 g/dl Red Cell Distribution Width 13.0 11.0-16.0 % Platelet Count 224 160-400 X10*3/uL Mean Platelet Volume 9.8 9.4-12.4 fL Neutrophils Percent Auto 75.1 45-73 % Imm Gran Pct Auto 0.6 0.0-0.4 % Lymphocytes Percent Auto 11.8 20-40 % Monocytes Percent Auto 10.8 2-11 % Eosinophils Percent Auto 0.6 0-4 % Basophils Percent Auto 1.1 0-2 % NRBC Pct Auto 0.0 0.0-0.2 /100WBC Neutrophils Absolute Auto 7.9 2.0-8.3 x10*3/u L Imm Gran Abs Auto 0.06 0.00-0.03 X10*3/uL Lymphocytes Absolute Auto 1.2 1.2-4.9 X10*3/u L Monocytes Absolute Auto 1.1 0.1-1.2 X10*3/uL Eosinophils Absolute Auto 0.1 0.0-0.4 X10*3/u L Basophils Absolute Auto 0.1 0.0-0.2 X10*3/uL NRBC Abs Auto 0.000 0.0-0.012 X10*3/uL XR chest 2V (Not yet reviewe d by provider) Interpretation: Performing Lab: Notes/Report: [address] [address] XRay Report Signed Patient: Fremean King MR#: [id number] [birth year] : 1940 Acct:[id number] Age/Sex: 85 / M ADM Date: 08/05/25 Loc: .ED Attending Dr: Ordering Physician: Chan Luque Date of Service: 08/05/25 Procedure(s): XR chest 2V Accession Number(s): [id number] cc: Robbie Kothari MD; Chan Luque Reason for Exam: pain CLINICAL HISTORY: pain 2 view chest x-ray Comparison: CR/SR - XR CHEST 2 VIEWS - 05/24/25 11:25 EDT Findings: No consolidation. There is unchanged coarse increase of bilateral lung markings and patchy opacities. Possible left nipple shadow. No pleural effusion or pneumothorax. Heart size is normal. No acute fracture. IMPRESSION: Possible left nipple shadow. No consolidation. Stable chronic changes of the lung parenchyma. This document has been electronically signed by: Jarrod Shah MD on 08/05/2025 13:31:35 Dictated By: Jarrod Shah MD Signed By: <Electronically signed by Jarrod Shah MD in OV> 08/05/251331 DD/ 30 TD/TT: 08/05/251330 Commercial Maintenance Technician: [place] [address] XRay Report Signed Patient: Jeremiah King MR#: [id number] [birth year] : 1940 Acct:[id number] Age/Sex: 85 / M ADM Date: 08/05/25 Loc: .ED Attending Dr: Ordering Physician: Chan Luque Date of Service: 08/05/25 Procedure(s): XR chest 2V Accession Number(s): [id number] cc: Rbobie Kothari MD; Chan Luque Reason for Exam: pain CLINICAL HISTORY: pain 2 view chest x-ray Comparison: CR/SR - XR CHEST 2 VIEWS - 05/24/25 11:25 EDT Findings: No consolidation. Th ere is unchanged coarse increase of bilateral lung markings and patchy opacities. Possible left nipple shadow. No pleural effusion or pneumothorax. Heart size is normal. No acute fracture. IMPRESSION: Possible left nipple shadow. No consolidation. Stable chronic changes of the lung parenchyma. This document has be en electronically signed by: Jarrod Shah MD on 08/05/2025 13:31:35 Dictated By: Tricia Shah MD Signed By: <Electronically signed by Jarrod Shah MD in OV> 08/05/25 133 DD/ 30 TD/TT: 08/05/251330 Commercial Maintenance Technician: Reason For Referral Reason Urgent Referral Requ est Evaluate and Treat ? Catheter Can not tolerate tamsulosin Diagnosis 1 Benign prostatic hyp erplasia with lower urinary tract symptoms (N40.1) Diagnosis 2 Nocturia (R35.1) Referral Organization Robbie Kothari III, MD Referring Provider First Name Robbie Referring Provider Last Name Saniya Referring Provider Speciality Internal edicine Referred Provider [facility] er, Urology Referred Provider Specialty Urology General Notes DSarika 12/06/2024 09:06:05 AM > Faxed referral and [...] Referring Provider Last Name Saniya [facility] Referred Provider [facility], Core Physical Therapy Referred Address [address] [place] [address],[place], [id number], Referred Provider Specialty Physical The rapist General Notes DSarika 03/09/2025 02:30:36 PM > referral and progress note faxed. 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) Referral Organization Robbie Kothari III, MD Referring Provider First Name Robbie Referring Provider Last Name Kothari Referring Provider [facility] edicine Referred Provider [facility], Speech and Hearing Referred Provider Specialty [...] needed Orally Three times a day Active Atorvastatin Calcium 10 MG 1 tablet Oral ly Once a day Active Tamsulosin HCl 0.4 MG Oral Active rifAMPin 300 MG TAKE 2 CAPS BY MOUTH ONCE DAILY Oral Active Arikayce 590 MG/8.4ML Inhalation Active Immunizations Vaccine Route Administration Date Status [...] Problem Status W/U Status Risk Notes Problem 9163729 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 Problem Hyperlipidemia (88053600) Hyperlipidemia (E78.5) Active confirmed His lipids have been stable. Change in his regimen was necessary today. Problem 35221583 Hyponatremia (E87.1) Active confirmed His sodium is n ow 136 and this problem has resolved. Problem 943091814 Underweight (R63.6) Active confirmed His appetite barrera s improved. His body mass index is now 20 which is in the normal range. His weight will be monitored carefully. 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 I have referred him back to pulmonary to discuss this further. His pulmonary infection seems controlled today but now resolved. Problem 690521199 Adenoma of ascending colon (D12.2) Active confirmed He will call he r gastroenterologis t to see if additional colonoscopies will be recommended. Problem 56165954 Abdominal hernia without obstruction and without gangrene, recurrence not specified, unspecified hernia type (K46.9) Active confirmed The hernia is n ow asymptomatic and will be observed without treatment. Problem Seizure (27710515) Seizures (R56.9) Active confirmed Just before discharge from an [facility] rehabilitation he was begun on Keppra for periods of unresponsiveness. A repeat CT scan November 18, 2024 showed improvement in the hemorrhage and edema. The Her will be discontinued until the electroencephalog jackie is done. We have requested a repeat visit from [facility] neurology. Problem 8952324621481 Benign prostatic hyperplasia with lower urinary tract symptoms (N40.1) Active confirmed He has seen urology and then given tamsulosin and finasteride. He has stopped the finasteride because of handshaking. I recommended he discuss this with urology and continue the tamsulosin. His nocturia has improved. Problem 05760421 Sleep apnea in adult (G47.30) Active confirmed He is using t he new CPAP machine without difficulty and is pleased with the results. 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 Problem 12619062 Atrial arrhythmia (I49.8) Active confirmed He was in a normal sinus rhythm today with no abnormalities. He has had no episodes of tachycardia, syncope or palpitations. 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 Problem 787697152579738 Acute gout of left hand, unspecified cause [...] Date Provider Diagnosis Robbie Kothari III, MD [address] [place] [address] [place] [address] 11/21/2024 Robbie Kothari Hyperlipidemia E78.5 ; Nontraumatic [...] in adult G47.30 Robbie Kothari III, MD [address] [place] [address] [place] [address] 12/02/2024 Robbie Kothari Hyperlipidemia E78.5 ; 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 ; Pneumonia J18.9 ; Former smoker Z87.891 ; Mycobacterial infection, unspecified A31.9 ; Sleep apnea in adult G47.30 and Benign prostatic hyperplasia with lower urinary tract symptoms N40.1 Robbie Kothari III, MD [address] [place] [address] [place] [address] 12/19/2024 Robbie Kohtari Hyperlipidemia E78.5 ; 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 ; Pneumonia J18.9 ; Underweight R63.6 ; Seizures R56.9 ; Former smoker Z87.891 ; Mycobacterial infection, unspecified A31.9 ; Sleep apnea in adult G47.30 and Benign prostatic hyperplasia with lower urinary tract symptoms N40.1 Robbie Kothari III, MD [address] [place] [address] [place] [address] 01/04/2025 Robbie Kothari Orthostatic hypotens ion I95.1 ; Former smoker Z87.891 ; Atrial arrhythmia I49.8 ; Hyperlipidemia E78.5 ; Rosacea L71.9 ; Benign prostatic hyperplasia with lower urinary tract symptoms N40.1 ; 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 ; Underweight R63.6 and Pneumonia J18.9 Robbie Kothari III, MD [address] [place] [address] [place] [address] 01/13/2025 Robbie Kothari Generalized weakness R53.1 ; Hyperlipidemia E78.5 ; Former smoker Z87.891 ; Hypertrophy of prostate without urinary obstruction and other lower urinary tract symptoms (LUTS) N40.0 ; Mycobacterial infection, unspecified A31.9 ; Underweight R63.6 ; 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 ; Orthostatic hypotension I95.1 and Pneumonia J18.9 Robbie Kothari III, MD [address] [place] [address] [place] [address] 01/27/2025 Robbie Kothari Former smoker Z87.89 1 [...] Generalized weakness R53.1 Robbie Kothari III, MD [address] [place] [address] [place] [address] 02/24/2025 Robbie Kothari Mycobacterial infect ion, unspecified A31.9 ; 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 ; Benign prostatic hyperplasia with lower urinary tract symptoms N40.1 ; Seizures R56.9 ; Hyponatremia E87.1 ; Former smoker Z87.891 ; Generalized weakness R53.1 and Acute gout of left hand, unspecified cause M10.9 Robbie Kothari III, MD [address] [place] [address] [place] [address] 03/20/2025 Robbie Kothari Former smoker Z87.89 1 ; Hyperlipidemia 272.4 ; Benign prostatic hyperplasia without lower urinary tract symptoms N40.0 ; Mycobacterial infection, unspecified A31.9 ; Underweight R63.6 ; Anterior subcapsular polar age-related cataract of both eyes H25.033 ; Seizures R56.9 and 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 Robbie Kothari III, MD [address] [place] [address] [place] [address] 05/02/2025 Robbie Kothari Former smoker Z87.89 1 [...] tract symptoms N40.0 Robbie Kothari III, MD [address] [place] [address] [place] [address] 07/17/2025 Robbie Kothari Former smoker Z87.89 1 ; Encounter for immunization Z23 ; Hyperlipidemia E78.5 ; Benign prostatic hyperplasia with lower urinary tract symptoms N40.1 ; Underweight R63.6 ; Hyponatremia E87.1 ; Mycobacterial infection, unspecified A31.9 and Sleep apnea in adult G47.30 Robbie Kothari III, MD [address] [place] [address] [place] [address] 10/28/2024 Robbie Kothari III, MD [address] [place] [address] [place] [address] 11/21/2024 Robbie Kothari III, MD [address] [place] [address] [place] [address] 11/21/2024 Robbie Kothari III, MD [address] [place] [address] [place] [address] 11/22/2024 Robbie Kothari III, MD [address] [place] [address] [place] [address] 11/22/2024 Robbie Kothari III, MD [address] [place] [address] [place] [address] 11/25/2024 Robbie Kothari III, MD [address] [place] [address] [place] [address] 11/25/2024 Robbie Kothari III, MD [address] [place] [address] [place] [address] 12/05/2024 Robbie Kothari III, MD [address] [facility] [address] 12/14/2024 Robbie Kothari III, MD [address] [facility] [place] [address] 12/20/2024 Robbie Kothari III, MD [address] [facility] [place] [place] [address] 01/02/2025 Robbie Kothari III, MD [address] [facility] [address] 01/03/2025 Robbie Kothari III, MD [address] [facility] [address] 01/06/2025 Robbie Kothari III, MD [address] [place] [address] [place] [address] 01/13/2025 Robbie Kothari III, MD [address] [place] [address] [place] [address] 01/17/2025 Robbie Kothari III, MD [address] [place] [address] [place] [address] 01/17/2025 Robbie Kothari III, MD [address] [place] [address] [place] [address] 02/07/2025 Robbie Kothari III, MD [address] [place] [address] [place] [address] 02/10/2025 Robbie Kothari III, MD [address] [facility] [place] [address] 02/24/2025 Robbie Kothari III, MD [address] [place] [address] 02/27/2025 Robbie Kothari III, MD [address] [facility] [address] 03/03/2025 Robbie Kothari III, MD [address] [place] [address] [place] [address] 03/09/2025 Robbie Kothari III, MD [address] [place] [address] DR [place], [place] [address] 03/10/2025 Robbie Kothari Assessments Encounter Date Diagnosis (ICD Code) Assessment Notes Treatment Notes Treatment Clinical Notes 11/21/2024 Hyperlipidemia (ICD-10 - E78.5) No recent [...] at home and was brought to the [facility] emergency of December 30, 2024 and [...] today. He tolerated it without side effects. 11/21/2024 Seizures (ICD-10 - R56.9) Just before discharge from an [facility] rehabilitation he was begun on Keppra for [...] Change in his regimen was necessary today. 11/21/2024 Hyponatremia (ICD-10 - E87.1) After admission [...] R56.9) Just before discharge from an [facility] rehabilitation he was begun on Keppra for periods of unresponsiveness. A repeat CT scan November 18, 2024 showed improvement in the hemorrhage and edema. The Her will be discontinued until the electroencephalogram is done. We have requested a repeat visit from [facility] neurology. 03/20/2025 Mycobacterial infection, unspecified (ICD-10 - [...] continue the tamsulosin. His nocturia has improved. 11/21/2024 Former smoker (ICD-10 - Z87.891) He [...] R56.9) Just before discharge from an [facility] rehabilitation he was begun on Keppra for periods of unresponsiveness. A repeat CT scan November 18, 2024 showed improvement in the hemorrhage and edema. The Her will be discontinued until the electroencephalogram is done. We have requested a repeat visit from [facility] neurology. 01/04/2025 Rosacea (ICD-10 - L71.9) He [...] range. His weight will be monitored carefully. 11/21/2024 Underweight (ICD-10 - R63.6) He has [...] from [facility] neurology. 02/24/2025 Former smoker (ICD-10 - Z87.891) [...] R56.9) Just before discharge from an [facility] rehabilitation he was begun on Keppra for periods of unresponsiveness. A repeat CT scan November 18, 2024 showed improvement in the hemorrhage and edema. The Her will be discontinued until the electroencephalogram is done. We have requested a repeat visit from [facility] neurology. 05/02/2025 Sleep apnea in adult (ICD-10 [...] at home and was brought to the [facility] emergency of December 30, 2024 and [...] DIFF 07/22/2023 Complete Blood Count Auto Diff Lipid Panel 03/06/2021 Lipid Panel 10/08/2021 Lipid Panel 07/25/2024 Lipid Panel 07/17/2025 Lipid Panel 04/22/2024 Lipid Panel 07/22/2023 XR chest 2V 08/05/2025 Next Appt Details Provider Name:Robbie Kothari , 10/17/2025 10:30:00 AM, [address] [place] [address] [address], [place], [address], Provider Name:Robbie Irvingne , 01/29/2026 09:30:00 AM, [address] [place] [address] [address], [place], [id number], Insurance Providers Payer Name Payer Address Payer Phone Subscriber Number Group Number Insured Name Patient Relationship to Insured Coverage Start Date Coverage End Date [employer]vantage [address] [address] [place] [phone] [id number] Freeman King Self - patient is the insured MEDICARE NGS [address] [place] [address] [id number] Freeman King Self - patient is the insured Medical (General) History Medical History History ICD Code colonic poyps 2002 benign prostatic hyperplasia (BPH) hyperlipidemia left herniorraphy age 30 neck and right shoulder pain 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
--- OUTSIDE RECORDS SUMMARY | 2025-08-05 13:40 | XMS_ITS | Encounter Summary ---
Author Organization [facility] Address [address] [place] [address] Care Team Providers Care Dog Or Horse Racing Official Name Role Phone Gloria Preston MD Primary Care Provider [phone] Encounter Details Date Type Department Care Team (Late st Contact Info) Description 11/05/2024 Lab Requisition [facility] - Main Lab [address] [facility] [employer] [address] Gloria Preston MD [address] [place] [id number] Encounter for other general examination Social History [...] CBC auto differential (11/05/2024 5:51 AM EST) [facility] WBC 8.0 4.8 - 10.8 K/mcL LAB HEMETOLOGY METHOD 11/05/2024 11:21 AM [facility] RBC 4.20(L) 4.50 - 5.50 M/mcL LAB HEMETOLOGY METHOD 11/05/2024 11:21 AM [facility] Hemoglobin 13.8 13.5 - 17.5 g/dL LAB HEMETOLOGY METHOD 11/05/2024 11:21 AM [facility] Hematocrit 39.6(L) 42.0 - 54.0 % LAB HEMETOLOGY METHOD 11/05/2024 11:21 AM [facility] MCV 94.7 79.0 - 98.0 FL LAB HEMETOLOGY METHOD 11/05/2024 11:21 AM [facility] MCH 33.0(H) 27.0 - 32.0 pcg LAB HEMETOLOGY METHOD 11/05/2024 11:21 AM [facility] MCHC 34.8 32.0 - 37.0 g/dL LAB HEMETOLOGY METHOD 11/05/2024 11:21 AM [facility] RDW 12.7 11.0 - 15.0 % LAB HEMETOLOGY METHOD 11/05/2024 11:21 AM [facility] Platelets 261 130 - 400 K/mcL LAB HEMETOLOGY METHOD 11/05/2024 11:21 AM [facility] MPV 10.4 7.0 - 11.0 FL LAB HEMETOLOGY METHOD 11/05/2024 11:21 AM [facility] NRBC 0.0 <1.0 % LAB HEMETOLOGY METHOD 11/05/2024 11:21 AM [facility] NRBC Absolute 0.00 <0.10 K/mcL LAB HEMETOLOGY METHOD 11/05/2024 11:21 AM [facility] Neutrophils Relative 73.3 % LAB HEMETOLOGY METHOD 11/05/2024 11:21 AM [facility] Lymphocytes Relative 10.6 % LAB HEMETOLOGY METHOD 11/05/2024 11:21 AM [facility] Monocytes Relative 14.7 % LAB HEMETOLOGY METHOD 11/05/2024 11:21 AM [facility] Eosinophils Relative 0.4 % LAB HEMETOLOGY METHOD 11/05/2024 11:21 AM [facility] Basophils Relative 0.6 % LAB HEMETOLOGY METHOD 11/05/2024 11:21 AM [facility] Immature Granulocytes Relative 0.4 % LAB HEMETOLOGY METHOD 11/05/2024 11:21 AM [facility] Neutrophils Absolute 5.87 1.50 - 7.00 K/mcL LAB HEMETOLOGY METHOD 11/05/2024 11:21 AM [facility] Lymphocytes Absolute 0.85(L) 1.00 - 5.00 K/mcL LAB HEMETOLOGY METHOD 11/05/2024 11:21 AM [facility] Monocytes Absolute 1.18(H) 0.20 - 1.00 K/mcL LAB HEMETOLOGY METHOD 11/05/2024 11:21 AM [facility] Eosinophils Absolute 0.03 0.00 - 0.50 K/mcL LAB HEMETOLOGY METHOD 11/05/2024 11:21 AM [facility] Basophils Absolute 0.05 0.00 - 0.20 K/mcL LAB HEMETOLOGY METHOD 11/05/2024 11:21 AM [facility] Immature Granulocytes Absolute 0.03 0.00 - 0.03 K/mcL LAB HEMETOLOGY METHOD 11/05/2024 11:21 AM [facility] Blood Venous blood specimen / Unknown Venipuncture / Unknown 11/05/2024 5:51 AM EST 11/05/2024 9:43 AM EST us Gloria Preston MD LAB BLOOD ORDERABLES Final Resu lt [facility] [address] [place] [address], [place] [phone] * Magnesium (11/05/2024 5:51 AM EST) [facility] Magnesium 2.0 1.9 - 2.6 mg/dL LAB CHEMISTRY METHOD 11/05/2024 11:42 AM EST [facility] Blood Venous blood specimen / Unknown Venipuncture / Unknown 11/05/2024 5:51 AM EST 11/05/2024 9:43 AM EST us Gloria Preston MD LAB BLOOD ORDERABLES Final Resu lt Performing Organization Address City/[facility]/ZIP Co de Phone Number [facility] [address] [place] [address], [place] [phone] * (ABNORMAL) Comprehensive metabolic panel (11/05/2024 5:51 AM EST) [facility] Sodium 133 133 - 145 mmol/L LAB CHEMISTRY METHOD 11/05/2024 11:44 AM [facility] Potassium 4.1 3.5 - 5.5 mmol/L LAB CHEMISTRY METHOD 11/05/2024 11:44 AM [facility] Chloride 99 96 - 110 mmol/L LAB CHEMISTRY METHOD 11/05/2024 11:44 AM [facility] CO2 24 21 - 32 mmol/L LAB CHEMISTRY METHOD 11/05/2024 11:44 AM [facility] Anion Gap 10 3 - 11 LAB CHEMISTRY METHOD 11/05/2024 11:44 AM [facility] Glucose 92 70 - 100 mg/dL LAB CHEMISTRY METHOD 11/05/2024 11:44 AM [facility] BUN 18 5 - 25 mg/dL LAB CHEMISTRY METHOD 11/05/2024 11:44 AM [facility] Creatinine 0.54(L) 0.70 - 1.30 mg/dL LAB CHEMISTRY METHOD 11/05/2024 11:44 AM [facility] eGFR 98 >=60 mL/min/1. 73m2 LAB CHEMISTRY METHOD 11/05/2024 11:44 AM [facility] Comment:Calculation based on the Chronic Kidney Disease Epidemiology Collaboration (CKD-EPI) equation refit without adjustment for race. BUN/Creatinine Ratio 33.3 LAB CHEMISTRY METHOD 11/05/2024 11:44 AM [facility] Calcium 9.0 8.5 - 10.5 mg/dL LAB CHEMISTRY METHOD 11/05/2024 11:44 AM [facility] AST (SGOT) 17 10 - 42 unit/L LAB CHEMISTRY METHOD 11/05/2024 11:44 AM [facility] ALT (SGPT) 19 10 - 60 unit/L LAB CHEMISTRY METHOD 11/05/2024 11:44 AM [facility] Alkaline Phosphatase 83 42 - 121 unit/L LAB CHEMISTRY METHOD 11/05/2024 11:44 AM [facility] Total Protein 6.6 6.0 - 8.0 g/dL LAB CHEMISTRY METHOD 11/05/2024 11:44 AM [facility] Albumin 2.8(L) 3.2 - 5.0 g/dL LAB CHEMISTRY METHOD 11/05/2024 11:44 AM [facility] Total Bilirubin 1.1 0.0 - 1.4 mg/dL LAB CHEMISTRY METHOD 11/05/2024 11:44 AM [facility] Blood Venous blood specimen / Unknown Venipuncture / Unknown 11/05/2024 5:51 AM EST 11/05/2024 9:43 AM EST us Rami A Ashkar MD LAB BLOOD ORDERABLES Final Resu lt [facility] [address] [place] [address], documented in this encounter Visit Diagnoses Diagnosis Encounter for other general examination documented in this encounter Care Teams Dog Or Horse Racing Official Relationship Specialty Start Date End Date Gloria Preston MD [address] [place] [phone] PCP - General Hospitalist Medicine 11/05/24 documented as of this encounter
[2025-08-05 13:43] LABS: Partial Thromboplastin Time 35.0 SEC (26.7-34.1)
[2025-08-05 13:50] LABS: Alanine Aminotransferase 7 U/L (0-40); Albumin Level 4.3 g/dL (3.5-5.0); Alkaline Phosphatase 76 U/L (39-117); Anion Gap 12 (12-20); Aspartate Amino Transferase 24 U/L (5-37); Blood Urea Nitrogen 17 mg/dL (9-16); Calcium 9.4 mg/dL (8.4-10.2); Carbon Dioxide 26 mmol/L (22-29); Chloride 97 mmol/L (96-108); Creatinine Clr Calc Pharmacy 66.9; Estimated Glomerular Filt Rate > 60; Potassium 4.0 mmol/L (3.3-5.1); Sodium 131 mmol/L (135-145); Total Protein 7.7 g/dL (6.5-8.0)
[2025-08-05 13:55] LABS: Troponin-I High Sensitivity 6.2 ng/L (<3.5-35.0)
[2025-08-05 13:56] LABS: NT Pro B Type Natriuretic Pept 356.6 pg/mL (<300)
[2025-08-05 14:16] LABS: Resp Syncy Virus RNA Qual PCR NEGATIVE (Negative); SARS COV2 PCR INHOUSE NEGATIVE (Negative)
[2025-08-05 16:01] VITALS: BP 150/71; PULSE 70; RESP 14; TEMP 36.7; O2SAT 93
[2025-08-05] MEDS: iohexoL 350 MG/ML 100 ML INFUS..BTL IV (16:42)
[2025-08-05 16:58] LABS: Troponin-I High Sensitivity 6.1 ng/L (<3.5-35.0)
[2025-08-05 18:14] VITALS: BP 132/81; PULSE 81; RESP 14; TEMP 36.7; O2SAT 94
--- NOTE | 2025-08-05 18:49 | PHA.MEDREC ---
Addendum entered by Idris Li PharmD 08/05/25 18:59: reviewed Original Note: Pharmacy Consult ? Medication Reconciliation Pharmacy has completed the medication reconciliation. Confirmed medication list with patient's family members, list from home, and claims history. Patient takes atorvastatin 10 mg daily at night; uses brimonidine eye drops 1 drop each eye BID; takes 2 Rifampicin 300 mg capsules Thursday, Thursday and Thursday; and takes 1 Tamsulosin 0.4 mg capsules BID. Changes were made in system to reflect at home regimen.
--- NOTE | 2025-08-05 19:00 | P.HPHOSP_ITS ---
History of Present Illness Date of Service: 08/05/25 Chief Complaint: shortness of breath and hemoptysis 85-year-old male with past medical history significant for HLD, BPH, bring dialysis with MAC infection, hemoptysis, left temporal intraparenchymal/subarachnoid hemorrhage who presented from urgent care for hypoxia and productive cough with hemoptysis. Patient being followed by pulmonology for MAC infection treated with rifampin 3 times a day, azithromycin 3 times a week and amikacin inhaler. CTA negative for pulmonary embolism with multiple area of persistent opacities bilateral lungs concerning for infection. Review of Systems 2 Review of Systems: Yes all other systems are reviewed and are negative [facility] Medical History (Updated 08/05/25 @ 17:48 by Juanito Sanchez MD) Mycobacterial disease Bronchiectasis COPD (chronic obstructive pulmonary disease) Hernia HLD (hyperlipidemia) BPH (benign prostatic hyperplasia) Bronchiectasis Hemoptysis Pulmonary nodules Cough Abnormal chest x-ray Surgical History Hx of colonoscopy Social History Household Members: Spouse Housing: House Do you presently have visiting nurse or other home services: Yes Alcohol intake: former Patient Tobacco Use Status: Former Tobacco user Tobacco use type: Cigarette Years Smoked: 20 years Smoked in Last 30 Days: No Use of substances other than those prescribed or required for medical reasons: No Advance Directives: No Advance Directives Information Provided: Yes Do you have a plan to hurt others: No Plan service: Yes Meds Allergies Allergy/AdvReac Type Severity Reaction Status Date / Time latex (LATEX) Allergy Intermediate RASH Verified 08/05/25 12:46 Band-Aid Allergy Severe rash Uncoded 08/05/25 12:46 neosporin Allergy Severe rash Uncoded 08/05/25 12:46 Active Medications: Current Medications Acetaminophen (Acetaminophen 325 Mg Tablet) 650 mg PO Q6H PRN PRN Reason: Pain, Mild 1-3,fever,headache Albuterol/Ipratropium (Albuterol/Iprat 2.5/0.5mg 3 Ml Ampul.Neb) 3 ml INHALE Q4H PRN PRN Reason: Shortness of Breath/Wheezing Atorvastatin Calcium (Atorvastatin Calcium 10 Mg Tablet) 10 mg PO BEDTIME RONI Benzonatate (Benzonatate 100 Mg Capsule) 100 mg PO TID PRN PRN Reason: Cough Brimonidine Tartrate (Brimonidine Tartrate 0.2% Oph 5 Ml Bottle) 1 drop EYE- BOTH BID [facility] Calcium Carbonate (Calcium Carbonate 750 Mg Tab.Chew) 750 mg PO Q4H PRN PRN Reason: Heartburn Diphenhydramine HCl (Diphenhydramine Hcl 25 Mg Capsule) 25 mg PO BEDTIME PRN PRN Reason: sleep Doxycycline Monohydrate (Doxycycline Monohydrate 100 Mg Capsule) 100 mg PO BID [facility] Doxycycline Hyclate 100 mg/ (Sodium Chloride) 250 mls @ 166.67 mls/hr IV ONCE ONE Stop: 08/05/25 19:17 Last Admin: 08/05/25 18:05 Dose: 166.67 mls/hr Cefepime HCl (Maxipime) 2 gm in 50 mls @ 100 mls/hr IV Q8H [facility] Magnesium Hydroxide (Milk Of Magnesia 30 Ml Oral.Susp) 30 ml PO DAILY PRN PRN Reason: Constipation Melatonin (Melatonin 3 Mg Tablet) 6 mg PO BEDTIME PRN PRN Reason: Insomnia Ondansetron HCl (Ondansetron Hcl 4 Mg/2 Ml Vial) 4 mg IVPUSH Q8H PRN PRN Reason: Nausea and Vomiting Oxycodone HCl (Oxycodone Hcl Immed Release 5 Mg Tablet) 5 mg PO Q6H PRN PRN Reason: Pain, Severe (Pain Scale 7-10) Rifampin (Rifampin 300 Mg Capsule) 600 mg PO MOWEFR [facility] Sodium Chloride (0.9 % Sodium Chloride Flush 3 Ml Syringe) 3 ml IVFLUSH QSHIFT [facility] Tamsulosin HCl (Tamsulosin Hcl 0.4 Mg Capsule) 0.8 mg PO BID [facility] Home Medications ?Medication ?Instructions ?Recorded ?Confirmed ?Last Taken ?Type nebulizers 06/30/22 05/01/25 Unknown H istory albuterol sulfate 2.5 mg/3 mL 2.5 mg inhalation BID wh eezing 04/17/25 08/05/25 08/05/25 History (0.083 %) solution for nebulization atorvastatin 10 mg tablet 10 mg PO QPM 08/05/2508/04/25 History brimonidine 0.2 % eye drops 1 drp ophthalmic (eye) BID 08/05/25 08/05/25 08/05/25 History diphenhydramine 25 1 tab PO BEDTIME PRN sleep a id 08/05/25 08/05/25 08/04/25 History mg-acetaminophen 500 mg tablet (Acetaminophen PM) ibuprofen 200 mg tablet 400 mg PO DAILY PRN Pain 08/05/25 Unknown History rifampin 300 mg capsule 600 mg PO MOWEFR 08/05/2508/04/25 History tamsulosin 0.4 mg capsule 0.8 mg PO BID 08/05/2508/0508/05/25 History Physical Exam 2 Vital Signs and Narrative: Vital Signs: Last Vital Signs Temp 98.1 F 08/05/25 18:14 Pulse 81 08/05/25 18:14 Resp 14 08/05/25 18:14 BP 132/81 08/05/25 18:14 Pulse Ox 94 08/05/25 18:14 O2 Del Method Room Air 08/05/25 18:14 BMI result Body Mass Index 20.7 General: AxOx2, No acute distress Head: AT/NC ENT: Moist mucous membranes Neck: supple CVS; RRR, S1 S2 normal Lungs: Bilateral rales Abd: Soft non tender, non distended Ext: No edema and no calf tenderness MSK: moving all 4 limbs Skin: No cyanosis or edema Psych: Cooperative with exam Neurology: no focal deficit Results Labs 08/05/25 13:29 08/05/25 13:29 Labs: Laboratory Results - last 24 hr 08/05/25 08/05/25 13:29 15:59 MCV 91.9 MCH 32.8 MCHC 35.7 RDW 13.0 Plt Count 224 MPV 9.8 Immature Gran % (Auto) 0.6 H Neut % (Auto) 75.1 H Lymph % (Auto) 11.8 L [place] % (Auto) 10.8 Eos % (Auto) 0.6 Baso % (Auto) 1.1 Lymph # (Auto) 1.2 [place] # (Auto) 1.1 Eos # (Auto) 0.1 Baso # (Auto) 0.1 Abs Immat Gran (auto) 0.06 H Absolute Neuts (auto) 7.9 Absolute Nucleated RBC 0.000 Nucleated RBC % (auto) 0.0 PT 14.0 H INR 1.1 APTT 35.0 H Anion Gap 12 Estim Creat Clear Calc 66.9 Estimated GFR > 60 Random Glucose 82 Lactic Acid 0.9 Calcium 9.4 Total Bilirubin 0.8 AST 24 ALT 7 Alkaline Phosphatase 76 Troponin I High Sens 6.2 D 6.1 NT-Pro-B Natriuret Pep 356.6 H Total Protein 7.7 Albumin 4.3 Influenza Type A (PCR) NEGATIVE Influenza Type B (PCR) NEGATIVE RSV RNA Qual (PCR) NEGATIVE SARS-CoV-2 RNA (RT-PCR) NEGATIVE Assessment and Plan (1) COPD (chronic obstructive pulmonary disease): Qualifiers: COPD type: chronic bronchitis Chronic bronchitis type: simple Q ualified Code(s): J41.0 - Simple chronic bronchitis Status: Acute Plan Assessment: 85-year-old male presented to the hospital for hemoptysis, patient with history of bronchiectasis. CTA with no pulmonary embolism, however with possible multifocal pneumonia. Acute on chronic Bronchiectasis exacerbation, patient last seen on 05/30 by pulmonology, suggested on rifampin 3 times a week as well as azithromycin 3 times a week and [place] Suspect pneumonia MAC infection currently being treated by pulmonology Hemoptysis COPD -respiratory panel ordered -CTA with no pulmonary embolus visualized, multiple opacities of bilateral lungs concerning for infection -Given patient's use of antibiotics, we will initiate cefepime for Pseudomonas coverage and continue azithromycin -we will initiate scheduled DuoNebs as well as p.r.n. DuoNebs -Tessalon Perles ordered -no indication at this time of steroid use, patient saturating well on room air -pulmonology consulted -monitor and titrate oxygen for SpO2 greater than 90% -monitor for any signs of worsening bleeding -incentive spirometer ordered Hyponatremia -we will order urine sodium, urine Osmo and serum Osmo -monitor for any signs of encephalopathy Prior history of CVA -continue aspirin and statin for secondary stroke prevention BPH, chronic -continue Flomax 0.8 mg p.o. b.i.d., monitor for any signs of urinary retention. FEN: NI, replete as needed, regular GI PPx: NI DVT PPx: SCDs, will hold off on chemical anticoagulation in setting of hemoptysos Code Status: DNR Disposition: All questions and concerns with the patient were answered to satisfaction. All pertinent clinical documents, images and labs were reviewed. DISCLAIMER: This document was created using voice recognition software. Any mistakes in the prescription are unintentional. An attempt was made to focus for accuracy, but to expedite availability, some errors may persist. Please contact with any need for correction or further clarification Quality Stroke Does the patient have a stroke diagnosis?: No VTE Prior VTE?: No VTE Risk Level:: Medical - moderate - high VTE Device Contraindication: N/A - Device Ordered VTE Drug Contraindication: Treatment Not Indicated
[2025-08-05 19:34] VITALS: BP 146/80; PULSE 88; RESP 18; TEMP 36.9; O2SAT 93
--- NOTE | 2025-08-05 19:36 | PC.NURSE ---
20 g IV in left AC
--- NOTE | 2025-08-05 19:39 | PC.NURSE ---
On first interaction with this pt, doxy was noted to be disconnected. Doxy restarted, will administer other abx when doxy is finished.
[2025-08-05] MEDS: Brimonidine Tartrate 0.2% Oph 5 ML BOTTLE 1 DROP EYE-BOTH (20:39)
[2025-08-05] MEDS: cefEPime HCl/D5W 2 GM/50 ML PIGGYBACK IV (20:39)
--- NOTE | 2025-08-05 20:48 | PC.NURSE ---
Per pt and pt's family at bedside, pt takes Flomax 0.4 mg in the morning and at night. Pt given 0.4 mg Flomax tonight. Awaiting provider response on clarification of dose.
--- NOTE | 2025-08-05 20:52 | PC.NURSE ---
Pt's eye drops placed in patient's own meds bin
[2025-08-05 21:15] LABS: Osmolality, Serum 274 mosm/kg (281-305)
[2025-08-06] VITALS (7 sets, daily range): BP systolic 120–143; BP diastolic 55–77; PULSE 67–87; RESP 14–19; TEMP 36.1–36.9; O2SAT 93–97; BMI 16.9
[2025-08-06] MEDS: cefEPime HCl/D5W 2 GM/50 ML PIGGYBACK IV ×3 (05:35→21:29)
[2025-08-06 06:13] LABS: Hematocrit 37.5 % (42.0-52.0); Hemoglobin 13.6 g/dl (14.0-18.0); Mean Corpuscular HGB Conc 36.3 g/dl (31.0-36.0); Mean Corpuscular Hemoglobin 32.7 pg (27.0-33.0); Mean Corpuscular Volume 90.1 fL (80.0-98.0); NRBC Abs Auto 0.000 X10*3/uL (0.0-0.012); NRBC Pct Auto 0.0 /100WBC (0.0-0.2); Platelet Count 196 X10*3/uL (160-400); Red Blood Count 4.16 X10*6/uL (4.60-5.80); White Blood Count 8.4 X10*3/uL (4.8-10.8)
[2025-08-06 06:30] LABS: Alanine Aminotransferase 7 U/L (0-40); Albumin Level 3.8 g/dL (3.5-5.0); Alkaline Phosphatase 71 U/L (39-117); Anion Gap 14 (12-20); Aspartate Amino Transferase 21 U/L (5-37); Blood Urea Nitrogen 14 mg/dL (9-16); Calcium 8.9 mg/dL (8.4-10.2); Carbon Dioxide 21 mmol/L (22-29); Chloride 98 mmol/L (96-108); Creatinine Clr Calc Pharmacy 69.7; Estimated Glomerular Filt Rate > 60; Magnesium 1.6 mg/dL (1.6-2.6); Potassium 4.0 mmol/L (3.3-5.1); Sodium 129 mmol/L (135-145); Total Protein 6.9 g/dL (6.5-8.0)
[2025-08-06] MEDS: 0.9 % Sodium Chloride Flush 3 ML SYRINGE IVFLUSH ×3 (08:20→21:29)
[2025-08-06] MEDS: Brimonidine Tartrate 0.2% Oph 5 ML BOTTLE 1 DROP EYE-BOTH ×2 (08:21→20:06)
[2025-08-06 08:52] LABS: Chlamydia pneumoniae PCR Not Detected (Not Detect.); Coronavirus 229E PCR Not Detected (Not Detect.); Coronavirus HKU1 PCR Not Detected (Not Detect.); Coronavirus NL63 PCR Not Detected (Not Detect.); Coronavirus OC43 PCR Not Detected (Not Detect.); RSV PCR Not Detected (Not Detect.); Rhino/Enterovirus PCR Detected (Not Detect.)
[2025-08-06 09:18] LABS: Influenza A H1 PCR Not Detected (Not Detect.); Influenza A H1-2009 PCR Not Detected (Not Detect.); Influenza A H3 PCR Not Detected (Not Detect.); SARS-CoV-2 PCR Not Detected (Not Detect.)
--- NOTE | 2025-08-06 11:41 | MHC.CM.PN ---
[facility] DELIVERED PT LIVES WITH SPOUSE AND IS FUNCTIONALLY INDEPENDENT. NO SERVICES OR DME. + HCP, DAUGHTER WILL BRING COPY IN PER REQUEST. PCP DR. MIRAMONTES. DP: HOME VS HOME WITH SERVICES? IF RECOMMENDED, FIRST CHOICE WOULD BE ENHABIT. REFERRAL SENT. FAMILY WILL TRANSPORT HOME. CM WILL CONTINE TO FOLLOW FOR ANY CHANGE TO DC PLAN.
--- NOTE | 2025-08-06 11:55 | HO.PM.IMPN ---
Subjective Subjective Date of Service: 08/06/25 Interval History: Patient seen and examined at bedside this morning, patient's sodium 129, awaiting respiratory panel. Patient states that his cough has improved, patient with cognitive dysfunction. Review of Systems Review of Systems: Yes all other systems are reviewed and are negative Physical Exam Exam: Exam: General: AxOx2, No acute distress Head: AT/NC ENT: Moist mucous membranes Neck: supple CVS; RRR, S1 S2 normal Lungs: Mild rales Abd: Soft non tender, non distended Ext: No edema and no calf tenderness MSK: moving all 4 limbs Skin: No cyanosis or edema Psych: Cooperative with exam Neurology: no focal deficit Vital Signs: Vital Signs: Last Vital Signs Temp 96.9 F 08/06/25 11:09 Pulse 69 08/06/25 11:09 Resp 17 08/06/25 11:09 BP 120/55 L 08/06/25 11:09 Pulse Ox 95 08/06/25 11:09 O2 Del Method Room Air 08/06/25 11:09 BMI result Body Mass Index 16.9 Objective Data Active Medications Acetaminophen (Acetaminophen 325 Mg Tablet) 650 mg PO Q6H PRN PRN Reason: Pain, Mild 1-3,fever,headache Albuterol/Ipratropium (Albuterol/Iprat 2.5/0.5mg 3 Ml Ampul.Neb) 3 ml INHALE Q4H PRN PRN Reason: Shortness of Breath/Wheezing Atorvastatin Calcium (Atorvastatin Calcium 10 Mg Tablet) 10 mg PO BEDTIME [facility] Last Admin: 08/05/25 20:40 Dose: 10 mg Documented By: KOSTA Azithromycin (Azithromycin 500 Mg Tablet) 500 mg PO Q24H [facility] Stop: 08/11/25 07:59 Last Admin: 08/06/25 08:20 Dose: 500 mg Documented By: GIANNI Benzonatate (Benzonatate 100 Mg Capsule) 100 mg PO TID PRN PRN Reason: Cough Brimonidine Tartrate (Brimonidine Tartrate 0.2% Oph 5 Ml Bottle) 1 drop EYE-BOTH BID [facility] Last Admin: 08/06/25 08:21 Dose: 1 drop Documented By: GIANNI Calcium Carbonate (Calcium Carbonate 750 Mg Tab.Chew) 750 mg PO Q4H PRN PRN Reason: Heartburn Diphenhydramine HCl (Diphenhydramine Hcl 25 Mg Capsule) 25 mg PO BEDTIME PRN PRN Reason: sleep Cefepime HCl (Maxipime) 2 gm in 50 mls @ 100 mls/hr IV 0600,1400,2200 [facility] Last Infusion: 08/06/25 06:07 Dose: Infused Documented By: JARRED Magnesium Hydroxide (Milk Of Magnesia 30 Ml Oral.Susp) 30 ml PO DAILY PRN PRN Reason: Constipation Melatonin (Melatonin 3 Mg Tablet) 6 mg PO BEDTIME PRN PRN Reason: Insomnia Ondansetron HCl (Ondansetron Hcl 4 Mg/2 Ml Vial) 4 mg IVPUSH Q8H PRN PRN Reason: Nausea and Vomiting Oxycodone HCl (Oxycodone Hcl Immed Release 5 Mg Tablet) 5 mg PO Q6H PRN PRN Reason: Pain, Severe (Pain Scale 7-10) Rifampin (Rifampin 300 Mg Capsule) 600 mg PO MOWEFR [facility] Sodium Chloride (0.9 % Sodium Chloride Flush 3 Ml Syringe) 3 ml IVFLUSH QSHIFT [facility] Last Admin: 08/06/25 08:20 Dose: 3 ml Documented By: GIANNI Sodium Chloride (Sodium Chloride Tab 1 Gm Tablet) 1 gm PO DAILY [facility] Tamsulosin HCl (Tamsulosin Hcl 0.4 Mg Capsule) 0.8 mg PO BID [facility] Last Admin: 08/06/25 08:20 Dose: 0.8 mg Documented By: GIANNI Labs 08/06/25 06:06 08/06/25 06:06 Labs: Laboratory Results - last 24 hr 08/05/25 08/05/25 08/05/25 13:29 15:59 16:21 MCV 91.9 MCH 32.8 MCHC 35.7 RDW 13.0 Plt Count 224 MPV 9.8 Immature Gran % (Auto) 0.6 H Neut % (Auto) 75.1 H Lymph % (Auto) 11.8 L Dixie % (Auto) 10.8 Eos % (Auto) 0.6 Baso % (Auto) 1.1 Lymph # (Auto) 1.2 Dixie # (Auto) 1.1 Eos # (Auto) 0.1 Baso # (Auto) 0.1 Abs Immat Gran (auto) 0.06 H Absolute Neuts (auto) 7.9 Absolute Nucleated RBC 0.000 Nucleated RBC % (auto) 0.0 PT 14.0 H INR 1.1 APTT 35.0 H Anion Gap 12 Estim Creat Clear Calc 66.9 Estimated GFR > 60 Random Glucose 82 Osmolality Lactic Acid 0.9 Calcium 9.4 Magnesium Total Bilirubin 0.8 AST 24 ALT 7 Alkaline Phosphatase 76 Troponin I High Sens 6.2 D 6.1 NT-Pro-B Natriuret Pep 356.6 H Total Protein 7.7 Albumin 4.3 Urine Osmolality Ur Random Sodium Respiratory Panel [place] Cancelled Adenovirus (Rapid PCR) Cancelled B.pert (TEM-PCR) Cancelled B.parapertussis DNA PCR Cancelled C. pneumoniae DNA (PCR) Cancelled Coronavirus OC43 (PCR) Cancelled Coronavirus HKU1 (PCR) Cancelled Coronavirus 229E (PCR) Cancelled Coronavirus NL63 (PCR) Cancelled Human Metapneumovir PCR Cancelled Influenza A (RT-PCR) Cancelled Influenza A (H1) PCR Cancelled Influ A (H1/09) PCR Cancelled Influenza A (H3) PCR Cancelled Influenza Type A (PCR) NEGATIVE Influenza B (RT-PCR) Cancelled Influenza Type B (PCR) NEGATIVE M. pneumoniae (PCR) Cancelled Parainfluenza 1 (PCR) Cancelled Parainfluenza 2 (PCR) Cancelled Parainfluenza 3 (PCR) Cancelled Parainfluenza 4 (PCR) Cancelled RSV (PCR) Cancelled RSV RNA Qual (PCR) NEGATIVE Entero/Rhino (PCR) Cancelled SARS-CoV-2 RNA (RT-PCR) NEGATIVE Cancelled 08/05/25 08/05/25 08/06/25 18:19 20:12 00:50 MCV MCH MCHC RDW Plt Count MPV Immature Gran % (Auto) Neut % (Auto) Lymph % (Auto) Dixie % (Auto) Eos % (Auto) Baso % (Auto) Lymph # (Auto) Dixie # (Auto) Eos # (Auto) Baso # (Auto) Abs Immat Gran (auto) Absolute Neuts (auto) Absolute Nucleated RBC Nucleated RBC % (auto) PT INR APTT Anion Gap Estim Creat Clear Calc Estimated GFR Random Glucose Osmolality 274 L Lactic Acid Calcium Magnesium Total Bilirubin AST ALT Alkaline Phosphatase Troponin I High Sens NT-Pro-B Natriuret Pep Total Protein Albumin Urine Osmolality 499 Ur Random Sodium 111.0 Respiratory Panel Gorman See Note Adenovirus (Rapid PCR) Not Detected B.pert (TEM-PCR) Not Detected B.parapertussis DNA PCR Not Detected C. pneumoniae DNA (PCR) Not Detected Coronavirus OC43 (PCR) Not Detected Coronavirus HKU1 (PCR) Not Detected Coronavirus 229E (PCR) Not Detected Coronavirus NL63 (PCR) Not Detected Human Metapneumovir PCR Not Detected Influenza A (RT-PCR) Not Detected Influenza A (H1) PCR Not Detected Influ A (H1) PCR Not Detected Influenza A (H3) PCR Not Detected Influenza Type A (PCR) Influenza B (RT-PCR) Not Detected Influenza Type B (PCR) M. pneumoniae (PCR) Not Detected Parainfluenza 1 (PCR) Not Detected Parainfluenza 2 (PCR) Not Detected Parainfluenza 3 (PCR) Not Detected Parainfluenza 4 (PCR) Not Detected RSV (PCR) Not Detected RSV RNA Qual (PCR) Entero/Rhino (PCR) Detected A SARS-CoV-2 RNA (RT-PCR) Not Detected 08/06/25 06:06 MCV 90.1 MCH 32.7 MCHC 36.3 H RDW 12.5 Plt Count 196 MPV 9.6 Immature Gran % (Auto) Neut % (Auto) Lymph % (Auto) Dixie % (Auto) Eos % (Auto) Baso % (Auto) Lymph # (Auto) Dixie # (Auto) Eos # (Auto) Baso # (Auto) Abs Immat Gran (auto) Absolute Neuts (auto) Absolute Nucleated RBC 0.000 Nucleated RBC % (auto) 0.0 PT INR APTT Anion Gap 14 Estim Creat Clear Calc 69.7 Estimated GFR > 60 Random Glucose 100 Osmolality Lactic Acid Calcium 8.9 Magnesium 1.6 Total Bilirubin 0.7 AST 21 ALT 7 Alkaline Phosphatase 71 Troponin I High Sens NT-Pro-B Natriuret Pep Total Protein 6.9 Albumin 3.8 Urine Osmolality Ur Random Sodium Respiratory Panel [place] Adenovirus (Rapid PCR) B.pert (TEM-PCR) B.parapertussis DNA PCR C. pneumoniae DNA (PCR) Coronavirus OC43 (PCR) Coronavirus HKU1 (PCR) Coronavirus 229E (PCR) Coronavirus NL63 (PCR) Human Metapneumovir PCR Influenza A (RT-PCR) Influenza A (H1) PCR Influ A () PCR Influenza A (H3) PCR Influenza Type A (PCR) Influenza B (RT-PCR) Influenza Type B (PCR) M. pneumoniae (PCR) Parainfluenza 1 (PCR) Parainfluenza 2 (PCR) Parainfluenza 3 (PCR) Parainfluenza 4 (PCR) RSV (PCR) RSV RNA Qual (PCR) Entero/Rhino (PCR) SARS-CoV-2 RNA (RT-PCR) Assessment and Plan (1) COPD (chronic obstructive pulmonary disease): Status: Acute (2) Pneumonia: Status: Acute Plan Assessment: 85-year-old male presented to the hospital for hemoptysis, patient with history of bronchiectasis. CTA with no pulmonary embolism, however with possible multifocal pneumonia. 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 DuoNebs -continue Tessalon Perles -no indication at this time of steroid use, patient saturating well on room air -pulmonology consulted -monitor and titrate oxygen for SpO2 greater than 90% -monitor for any signs of worsening bleeding -incentive spirometer ordered Hypotonic hyponatremic, could be secondary to SIADH -salt tabs ordered, as well as uric acid. -monitor for any signs of encephalopathy Prior history of CVA -continue aspirin and statin for secondary stroke prevention BPH, chronic -continue Flomax 0.8 mg p.o. b.i.d., monitor for any signs of urinary retention. FEN: NI, replete as needed, regular GI PPx: NI DVT PPx: SCDs, will hold off on chemical anticoagulation in setting of hemoptysis Code Status: DNR Disposition: All questions and concerns with the patient were answered to satisfaction. All pertinent clinical documents, images and labs were reviewed. DISCLAIMER: This document was created using voice recognition software. Any mistakes in the prescription are unintentional. An attempt was made to focus for accuracy, but to expedite availability, some errors may persist. Please contact with any need for correction or further clarification Total time managing care of this patient today: 55 minutes. Quality Stroke Does the patient have a stroke diagnosis?: No VTE Prior VTE?: No VTE Risk Level:: Medical - moderate - high VTE Device Contraindication: N/A - Device Ordered VTE Drug Contraindication: Treatment Not Indicated
[2025-08-06 12:27] LABS: Uric Acid 4.1 mg/dL (3.4-7.0)
[2025-08-06] MEDS: Sodium Chloride Tab 1 GM TABLET PO (12:32)
--- NOTE | 2025-08-06 18:16 | PM.CNPUL ---
History of Present Illness History of Present Illness Consult date: 08/06/25 Chief complaint: Hemopytysis, small volume Narrative: 85-year-old gentleman with underlying MAC, bronchiectasis, COPD, on ethambutol/decompensation azithromycin and nebulized amikacin, patient of Dr. Minor, admitted on 08/05/2025 with approximately one-week history of upper respiratory symptoms secondary to common cold resulting in cough intermittently productive of greenish sputum, but also with several episodes of small volume hemoptysis, essentially blood-tinged sputum and treated for community-acquired. CT angio chest with no evidence of edema formation pulmonary emboli. At this time appears to be at baseline respiratory status. Review of Systems Constitutional: Constitutional: Denies daytime sleepiness, Denies excessive sweating, Denies fatigue, Denies fever(s), Denies lethargy, Denies malaise, Denies night sweats, Denies snoring and Denies weight loss Eyes: Eyes: Denies blurry vision and Denies itchy eyes ENT: Denies nasal congestion, Denies post nasal drip, Denies sinus pain, Denies sinus pressure and Denies other ( Thrush) Cardiovascular: Cardiovascular: Denies chest pain, Denies pedal edema, Denies dyspnea, Denies orthopnea and Denies paroxysmal nocturnal dyspnea Respiratory: Respiratory: Reports cough, Reports hemoptysis, Reports excessive phlegm production, Denies dyspnea, Denies snoring and Denies wheezing Gastrointestinal: Gastrointestinal: Denies abdominal pain and Denies heartburn Musculoskeletal: Musculoskeletal: Denies myalgias, Denies arthralgias and Denies joint swelling Integumentary/Breasts: Skin/Breast: Denies rash Neurologic: Denies memory loss and Denies seizure-like activity Psychiatric: Psychiatric: Denies abnormal sleep pattern, Denies anxiety and Denies memory loss Endocrine: Endocrine: Denies excessive sweating, Denies fatigue and Denies heat intolerance Hematologic/Lymphatic: Hematologic/Lymphatic: Denies easy bruising Allergic/Immunologic: Allergic/Immunologic: Denies itchy eyes, Denies seasonal rhinorrhea and Denies wheezing PMFSH Past Medical History Medical History (Updated 08/06/25 @ 18:19 by Fei Jo MD) Bronchiectasis Mycobacterial disease Bronchiectasis COPD (chronic obstructive pulmonary disease) Hernia HLD (hyperlipidemia) BPH (benign prostatic hyperplasia) Hemoptysis Pulmonary nodules Cough Abnormal chest x-ray Surgical History Surgical History Hx of colonoscopy Social History Social History Household Members: Spouse Housing: House Do you presently have visiting nurse or other home services: Yes Alcohol intake: former Patient Tobacco Use Status: Former Tobacco user Tobacco use type: Cigarette Years Smoked: 20 years service: No Meds Allergies Allergy/AdvReac Type Severity Reaction Status Date / Time latex (LATEX) Allergy Intermediate RASH Verified 08/05/25 12:46 Band-Aid Allergy Severe rash Uncoded 08/05/25 12:46 neosporin Allergy Severe rash Uncoded 08/05/25 12:46 Active Medications: Current Medications Acetaminophen (Acetaminophen 325 Mg Tablet) 650 mg PO Q6H PRN PRN Reason: Pain, Mild 1-3,fever,headache Albuterol/Ipratropium (Albuterol/Iprat 2.5/0.5mg 3 Ml Ampul.Neb) 3 ml INHALE Q4H PRN PRN Reason: Shortness of Breath/Wheezing Atorvastatin Calcium (Atorvastatin Calcium 10 Mg Tablet) 10 mg PO BEDTIME COUNTS INCLUDE 234 BEDS AT [facility] Last Admin: 08/05/25 20:40 Dose: 10 mg Azithromycin (Azithromycin 500 Mg Tablet) 500 mg PO Q24H COUNTS INCLUDE 234 BEDS AT THE [facility] Stop: 08/11/25 07:59 Last Admin: 08/06/25 08:20 Dose: 500 mg Benzonatate (Benzonatate 100 Mg Capsule) 100 mg PO TID PRN PRN Reason: Cough Brimonidine Tartrate (Brimonidine Tartrate 0.2% Oph 5 Ml Bottle) 1 drop EYE-BOTH BID COUNTS INCLUDE 234 BEDS AT THE [facility] Last Admin: 08/06/25 08:21 Dose: 1 drop Calcium Carbonate (Calcium Carbonate 750 Mg Tab.Chew) 750 mg PO Q4H PRN PRN Reason: Heartburn Diphenhydramine HCl (Diphenhydramine Hcl 25 Mg Capsule) 25 mg PO BEDTIME PRN PRN Reason: sleep Cefepime HCl (Maxipime) 2 gm in 50 mls @ 100 mls/hr IV 0600,1400,2200 COUNTS INCLUDE 234 BEDS AT THE [facility] Last Infusion: 08/06/25 14:26 Dose: Infused Magnesium Hydroxide (Milk Of Magnesia 30 Ml Oral.Susp) 30 ml PO DAILY PRN PRN Reason: Constipation Melatonin (Melatonin 3 Mg Tablet) 6 mg PO BEDTIME PRN PRN Reason: Insomnia Ondansetron HCl (Ondansetron Hcl 4 Mg/2 Ml Vial) 4 mg IVPUSH Q8H PRN PRN Reason: Nausea and Vomiting Oxycodone HCl (Oxycodone Hcl Immed Release 5 Mg Tablet) 5 mg PO Q6H PRN PRN Reason: Pain, Severe (Pain Scale 7-10) Rifampin (Rifampin 300 Mg Capsule) 600 mg PO MOWEFR COUNTS INCLUDE 234 BEDS AT THE [facility] Sodium Chloride (0.9 % Sodium Chloride Flush 3 Ml Syringe) 3 ml IVFLUSH QSHIFT COUNTS INCLUDE 234 BEDS AT THE [facility] Last Admin: 08/06/25 17:48 Dose: 3 ml Sodium Chloride (Sodium Chloride Tab 1 Gm Tablet) 1 gm PO DAILY COUNTS INCLUDE 234 BEDS AT THE [facility] Last Admin: 08/06/25 12:32 Dose: 1 gm Tamsulosin HCl (Tamsulosin Hcl 0.4 Mg Capsule) 0.8 mg PO BID COUNTS INCLUDE 234 BEDS AT [facility] Last Admin: 08/06/25 08:20 Dose: 0.8 mg Home Medications ?Medication ?Instructions ?Recorded ?Confirmed ?Last Taken ?Type nebulizers 06/30/22 05/01/25 Unknown History albuterol sulfate 2.5 mg/3 mL 2.5 mg inhalation BID wheezing 04/17/25 08/05/25 08/05/25 History (0.083 %) solution for nebulization atorvastatin 10 mg tablet 10 mg PO QPM 08/05/25 08/05/25 08/04/25 History brimonidine 0.2 % eye drops 1 drp ophthalmic (eye) BID 08/05/25 08/05/25 08/05/25 History diphenhydramine 25 1 tab PO BEDTIME PRN sleep aid 08/05/25 08/05/25 08/04/25 History mg-acetaminophen 500 mg tablet (Acetaminophen PM) ibuprofen 200 mg tablet 400 mg PO DAILY PRN Pain 08/05/25 08/05/25 Unknown History rifampin 300 mg capsule 600 mg PO MOWEFR 08/05/25 08/05/25 08/04/25 History tamsulosin 0.4 mg capsule 0.8 mg PO BID 08/05/25 08/05/25 08/05/25 History Physical Exam Vital Signs: Vital Signs: Last Vital Signs Temp 97.6 F 08/06/25 16:00 Pulse 75 08/06/25 16:00 Resp 19 08/06/25 16:00 BP 127/66 08/06/25 16:00 Pulse Ox 97 08/06/25 16:00 O2 Del Method Room Air 08/06/25 16:00 BMI result Body Mass Index 16.9 Const: General: no acute distress and alert Nutritional Appearance: not obese Orientation/consciousness: Other orientation findings ( oriented) HEENT: Head: Yes atraumatic Eyes: General: appearance normal, both eyes and all related structures Sclerae: sclerae normal EOM: EOMs intact bilaterally Neck: Neck: Yes supple Lymphatic: no lymphadenopathy noted Resp: Effort & Inspection: normal respiratory effort and no use of accessory muscles Auscultation: clear to auscultation bilaterally Cardio: Rate: regular rate Rhythm: regular rhythm Heart sounds: no gallops, no murmurs and no rubs Skin: General skin exam: other ( warm) Extrem: General: No clubbing, No cyanosis and No edema Results Laboratory Findings 08/06/25 06:06 08/06/25 06:06 ABG, PT/INR, D-dimer: PT/INR, D-dimer PT 14.0 SEC (11.2-13.5) H 08/05/25 13:29 INR 1.1 (0.9-1.1) 08/05/25 13:29 Abnormal lab findings: Abnormal Labs 08/05/25 08/05/25 08/05/25 13:29 18:19 20:12 RBC 4.45 L Hgb Hct 40.9 L MCHC Immature Gran % (Auto) 0.6 H Neut % (Auto) 75.1 H Lymph % (Auto) 11.8 L Abs Immat Gran (auto) 0.06 H PT 14.0 H APTT 35.0 H Sodium 131 L Carbon Dioxide BUN 17 H Osmolality 274 L NT-Pro-B Natriuret Pep 356.6 H Entero/Rhino (PCR) Detected A 08/06/25 06:06 RBC 4.16 L Hgb 13.6 L Hct 37.5 L MCHC 36.3 H Immature Gran % (Auto) Neut % (Auto) Lymph % (Auto) Abs Immat Gran (auto) PT APTT Sodium 129 L Carbon Dioxide 21 L BUN Osmolality NT-Pro-B Natriuret Pep Entero/Rhino (PCR) Microbiology: Microbiology 08/05/25 15:59 Blood - Venous Blood Culture - Preliminary No growth after 24 hours. 08/05/25 15:59 Blood - Venous Blood Culture - Preliminary No growth after 24 hours. Assessment and Plan (1) COPD (chronic obstructive pulmonary disease): Qualifiers: COPD type: chronic bronchitis Chronic bronchitis type: simple Qualified Code(s): J41.0 - Simple chronic bronchitis Status: Acute (2) Bronchiectasis: Qualifiers: Bronchiectasis type: uncomplicated Qualified Code(s): J47.9 - Bronchiectasis, uncomplicated Status: Acute (3) NAYA (mycobacterium avium-intracellulare): Status: Acute (4) Cough with hemoptysis: Status: Acute Plan Impression: 85-year-old gentleman with underlying MAC bronchiectasis on 3 drug regimen admitted with upper respiratory symptoms including productive cough with several epidurals of small volume hemoptysis. Small volume hemoptysis likely secondary to alveolar capillary shear stress tears with coughing. CT angio chest with evidence of AV malformations or pulmonary emboli. At this time essentially at baseline respiratory status. Recommendation: Continue outpatient regimen, suggest additional Levaquin for 5-7 days on discharge. Procedures Date of Service Date of Service: 08/06/25
[2025-08-07 03:17] VITALS: BP 136/73; PULSE 87; RESP 18; TEMP 36.1; O2SAT 93
[2025-08-07] MEDS: cefEPime HCl/D5W 2 GM/50 ML PIGGYBACK IV (05:29)
[2025-08-07 08:00] VITALS: BP 126/60; PULSE 74; RESP 18; TEMP 36.4; O2SAT 94
[2025-08-07] MEDS: Sodium Chloride Tab 1 GM TABLET PO (08:50)
[2025-08-07] MEDS: Brimonidine Tartrate 0.2% Oph 5 ML BOTTLE 1 DROP EYE-BOTH (08:50)
[2025-08-07 10:25] LABS: Hematocrit 38.5 % (42.0-52.0); Hemoglobin 13.8 g/dl (14.0-18.0); Mean Corpuscular HGB Conc 35.8 g/dl (31.0-36.0); Mean Corpuscular Hemoglobin 32.8 pg (27.0-33.0); Mean Corpuscular Volume 91.4 fL (80.0-98.0); NRBC Abs Auto 0.000 X10*3/uL (0.0-0.012); NRBC Pct Auto 0.0 /100WBC (0.0-0.2); Platelet Count 207 X10*3/uL (160-400); Red Blood Count 4.21 X10*6/uL (4.60-5.80); White Blood Count 6.2 X10*3/uL (4.8-10.8)
[2025-08-07 10:46] LABS: Alanine Aminotransferase 6 U/L (0-40); Albumin Level 3.8 g/dL (3.5-5.0); Alkaline Phosphatase 75 U/L (39-117); Anion Gap 13 (12-20); Aspartate Amino Transferase 28 U/L (5-37); Blood Urea Nitrogen 14 mg/dL (9-16); Calcium 8.9 mg/dL (8.4-10.2); Carbon Dioxide 22 mmol/L (22-29); Chloride 98 mmol/L (96-108); Creatinine Clr Calc Pharmacy 61.6; Estimated Glomerular Filt Rate > 60; Magnesium 1.8 mg/dL (1.6-2.6); Potassium 4.2 mmol/L (3.3-5.1); Sodium 129 mmol/L (135-145); Total Protein 7.1 g/dL (6.5-8.0)
[2025-08-07 11:59] VITALS: BMI 16.9
--- NOTE | 2025-08-07 12:06 | MHC.CLN ---
NUTRITION DIET RX: REGULAR. PO 75-100%. OBS STATUS AND D/C SCHEDULED TODAY AFTER LUNCH. QUALIFIES MODERATELY MALNOURISHED IN THE CONTEXT OF CHRONIC ILLNESS. NO ADDITIONAL NUTRITION INTERVENTIONS AT THIS TIME DUE TO GOOD PO AND PLANNED DISCHARGE.
--- NOTE | 2025-08-07 12:47 | P.DS_ITS ---
DS: Providers Provider Date of Service: 08/07/25 Date of admission: 08/05/25 18:05 Date of discharge: 08/07/25 Primary care physician: Robbie Kothari MD Consults: 08/05/25 18:29 Consult to Pulmonology Routine Consulting Provider: [facility] Reason for consultation: Bronchiectasis Has provider been notified: No DS: Diagnosis Discharge Diagnosis (1) COPD (chronic obstructive pulmonary disease): Status: Acute (2) Bronchiectasis: Status: Acute (3) NAYA (mycobacterium avium-intracellulare): Status: Acute (4) Cough with hemoptysis: Status: Acute DS: Summary Hospital Course Hospital Course: 85-year-old male presented to the hospital for hemoptysis, patient with history of bronchiectasis. CTA with no pulmonary embolism, seen by pulmonology suggested on discharging on Levaquin for 5-7 days. Patient at this time states that he feels well, no longer with hemoptysis. 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 b.i.d., monitor for any signs of urinary retention. Time Attestation Discharge Coordination Time (in mins): 35 minutes Quality: Safe Use of Opioids Does Pt have an Active Cancer Diagnosis on the Problem List?: No Quality: Stroke Does the patient have a stroke diagnosis?: No Physical Exam Exam: Exam: General: AxOx3, No acute distress Head: AT/NC ENT: Moist mucous membranes Neck: supple CVS; RRR, S1 S2 normal Lungs: Clear bilateral breath sounds, no wheezes or crackles Abd: Soft non tender, non distended Ext: No edema and no calf tenderness MSK: moving all 4 limbs Skin: No cyanosis or edema Psych: Cooperative with exam Neurology: no focal deficit Vital Signs: Vital Signs: Last Vital Signs Temp 97.6 F 08/07/25 08:00 Pulse 74 08/07/25 08:00 Resp 18 08/07/25 08:00 BP 126/60 08/07/25 08:00 Pulse Ox 94 08/07/25 08:00 O2 Del Method Room Air 08/07/25 08:00 BMI result Body Mass Index 16.9 DS: Data Data Completed and Pending Labs on day of discharge: Laboratory Results - last 24 hr 08/07/25 10:11 WBC 6.2 RBC 4.21 L Hgb 13.8 L Hct 38.5 L MCV 91.4 MCH 32.8 MCHC 35.8 RDW 12.3 Plt Count 207 MPV 9.8 Absolute Nucleated RBC 0.000 Nucleated RBC % (auto) 0.0 Sodium 129 L Potassium 4.2 Chloride 98 Carbon Dioxide 22 Anion Gap 13 BUN 14 Creatinine 0.78 Estim Creat Clear Calc 61.6 Estimated GFR > 60 Random Glucose 136 H Calcium 8.9 Magnesium 1.8 Total Bilirubin 0.6 AST 28 ALT 6 Alkaline Phosphatase 75 Total Protein 7.1 Albumin 3.8 Preliminary micro results at discharge 08/05/25 15:59 Blood Culture - Preliminary Blood - Venous No growth after 24 hours. 08/05/25 15:59 Blood Culture - Preliminary Blood - Venous No growth after 24 hours. Discharge Plan Discharge Patient Disposition: Home, Self-Care Discharge Diagnosis: bronchiectasis MAC infection Pneumonia Referrals: Robbie Kothari MD [Primary Care Provider, Internal Medicine] - 1 Week Discharge Medications: New sodium chloride 1,000 mg Tablet,Soluble 1,000 mg PO DAILY 3 Days Qty: 3 0RF benzonatate 100 mg Capsule 100 mg PO TID PRN (Reason: Cough) Qty: 10 0RF levofloxacin 750 mg tablet 750 mg PO DAILY 5 Days Qty: 5 0RF Continued atorvastatin 10 mg tablet 10 mg PO QPM brimonidine 0.2 % drops 1 drp ophthalmic (eye) BID ibuprofen 200 mg Tablet 400 mg PO DAILY PRN (Reason: Pain) diphenhydramine-acetaminophen [Acetaminophen PM] 25-500 mg Tablet 1 tab PO BEDTIME PRN (Reason: sleep aid) rifampin 300 mg capsule 600 mg PO MOWEFR tamsulosin 0.4 mg capsule 0.8 mg PO BID Rx Instructions: This is an increase in dosage (DME) nebulizers Misc See Rx Instructions .Route Rx Instructions: As directed albuterol sulfate 2.5 mg /3 mL (0.083 %) solution for nebulization 2.5 mg inhalation BID No Action azithromycin 500 mg tablet 500 mg PO DAILY 30 Days Qty: 30 6RF Discharge Orders: Discharge Order (Routine); Ordered 08/07/25 Ordered By: Juan Newsome Activity on Discharge: As tolerated Stand Alone Forms: Patient Portal Discharge page Print Language: French Care Plan Goals: continue Levofloxacin for 5 days continue nebulizing treatments rest follow up with pulmonology and primary care provider as outpatient Health Concerns: bronchiectasis Pneumonia Plan of Treatment: Levofloxacin 750mg every day for 5 days, hold azithromycin until next week continue tessalon perles continue home nebulizing treatment decrease oral fluids to 1800mL per day, follow up with primary care provider and nephrology as outpatient Assessment: 85-year-old male presented to the hospital for hemoptysis, patient with history of bronchiectasis. CTA with no pulmonary embolism, seen by pulmonology suggested on discharging on Levaquin for 5-7 days. Patient at this time states that he feels well, no longer with hemoptysis. Patient Instructions: Viral Pneumonia (DC)
--- NOTE | 2025-08-07 12:58 | MHC.CM.PN ---
Patient medically cleared for dc home self care. Family at bedside to transport.
== END 2025-08-07 13:11 | disposition home or self-care (01) ==
LOC: HO.ED 18:43 → HO.EDOVER 18:59 → HO.S3 23:57
PROVIDERS: Emergency Medicine Emergency Medical Services; Physician Assistant; Admitting Provider Student in an Organized Health Care Education/Training Program; Emergency Provider Emergency Medicine; PCP Internal Medicine Medical Oncology; Visit Provider Student in an Organized Health Care Education/Training Program
DX: J44.9 Chronic obstructive pulmonary disease, unspecified (principal); J47.9 Bronchiectasis, uncomplicated; A31.0 Pulmonary mycobacterial infection; R04.2 Hemoptysis; J41.0 Simple chronic bronchitis; J18.9 Pneumonia, unspecified organism; R06.00 Dyspnea, unspecified; I44.0 Atrioventricular block, first degree; E78.5 Hyperlipidemia, unspecified; R07.9 Chest pain, unspecified; Z87.891 Personal history of nicotine dependence; Z03.818 Encounter for observation for suspected exposure to other biological agents ruled out; N40.0 Benign prostatic hyperplasia without lower urinary tract symptoms; Z86.73 Personal history of transient ischemic attack (TIA), and cerebral infarction without residual deficits; Z79.899 Other long term (current) drug therapy
CPT/HCPCS: 36415; 71046; 71275; 80053; 83605; 83735; 83880; 83930; 83935; 84300; 84484; 84550; 85025; 85027; 85610; 85730; 87040; 87633; 87637; 93005; 96365; 96366; 99221; 99285; J0692; J0696; J1271; Q9967

== ENCOUNTER → 2025-08-05 12:46 | Outpatient (BNV) | payer MEDICARE, SELFPAY | PROVIDERS: Admitting Provider Student in an Organized Health Care Education/Training Program; Emergency Provider Emergency Medicine; PCP Internal Medicine Medical Oncology; Visit Provider Internal Medicine | DX: I44.0 Atrioventricular block, first degree (principal) | CPT/HCPCS: 93010 ==

== ENCOUNTER → 2025-08-05 12:46 | Outpatient (BNV) | payer MEDICARE, SELFPAY | PROVIDERS: Emergency Provider Emergency Medicine Emergency Medical Services; PCP Internal Medicine Medical Oncology; Visit Provider Nuclear Medicine | DX: J47.1 Bronchiectasis with (acute) exacerbation (principal); R91.8 Other nonspecific abnormal finding of lung field; R07.9 Chest pain, unspecified | CPT/HCPCS: 71046; 71275 ==

== ENCOUNTER → 2025-08-05 18:05 | Outpatient (BNV) | payer MEDICARE, SELFPAY | PROVIDERS: Admitting Provider Student in an Organized Health Care Education/Training Program; Emergency Provider Emergency Medicine; PCP Internal Medicine Medical Oncology; Visit Provider Internal Medicine Pulmonary Disease | DX: J41.0 Simple chronic bronchitis (principal); J47.9 Bronchiectasis, uncomplicated; A31.0 Pulmonary mycobacterial infection; R04.2 Hemoptysis | CPT/HCPCS: 99222 ==

== ENCOUNTER → 2025-08-05 18:05 | Outpatient (BNV) | payer MEDICARE, SELFPAY | PROVIDERS: Admitting Provider Student in an Organized Health Care Education/Training Program; Emergency Provider Emergency Medicine; PCP Internal Medicine Medical Oncology; Visit Provider Student in an Organized Health Care Education/Training Program | DX: J41.0 Simple chronic bronchitis (principal); J18.9 Pneumonia, unspecified organism | CPT/HCPCS: 99223; 99233; 99239 ==

== ENCOUNTER 2025-08-17 14:48 | Outpatient (AMB) | payer MEDICARE, SELFPAY ==
--- OUTSIDE RECORDS SUMMARY | 2025-02-24 06:00 | XMS_ITS ---
Author Organization Robbie Kothari III, MD Address [address] [place] [address] [address] [place] [place] [address] Care Team Providers Care Salesperson Toy Trains And Accessories Name Role Phone Dr. Robbie Kothari III [...] Date Status Hydrocortisone 1 % 1 application Night Cleaner ally Twice a day 01/27/2025 Active Albuterol Sulfate (2.5 MG/3ML) 0.083% Inhalation Active Nystatin 957077 UNIT/GM APPLY TOPICALLY 3 TIMES A DAY [...] Problem Status W/U Status Risk Notes Problem [id number] Acute gout of left hand, unspecified cause [...] Date Provider Diagnosis Robbie Kothari III, MD [address] [place] [address] [place] [address] 02/24/2025 Robbie Kothari Mycobacterial infection, unspecified A31.9 [...] - R56.9) Just before discharge from an [facility] rehabilitation he was begun on Keppra for periods of unresponsiveness. A repeat CT scan November 18, 2024 showed improvement in the hemorrhage and edema. The Her will be discontinued until the electroencephalogram is done. We have requested a repeat visit from [facility] neurology. 02/24/2025 Hyponatremia (ICD-10 - E87.1) After admission to [facility] he required hypertonic saline and then [...] Date Notes Hydrocortisone 1 % 1 application Night Cleaner ally Twice a day 01/27/2025 Albuterol Sulfate (2.5 MG/3M L) 0.083% Inhalation Nystatin 166219 UNIT/GM APPLY TOPICALLY 3 TIMES A DAY FOR 30 DAYS APPLY TO THE AFFECTED AREA THREE TIMES A DAY External Atorvastatin Calcium 10 MG 1 tablet Orally Once a day Azithromycin 500 MG Oral Tamsulosin HCl 0.4 MG Oral Next Appt Details Follow Up: 3 Weeks, Reason: OV Provider Name:Robbie Kothari , 09/12/2025 09:15:00 AM, [address] [place] [address] [address], [place], [address], Provider Name:Robbie Irvingne , 10/17/2025 10:30:00 AM, [address] [place] [address] [address], [place], [address], Provider Name:Robbie Thompson Saniya , 01/29/2026 09:30:00 AM, [address] [place] [address] [address], [place], [address], Progress Notes * Freeman ROCHADOB: 0 (85 yo M)Acc No.[id number]:02/24/2025 Progress Notes Patient: Aranza BURGESS Freeman Rosa Provider: Mike Kothari MD :1940 A ge:85 Y S ex:Male Date:02/24/2025 Address:[address] [place] [address] [address] [id number] Subjective: * Chief Complaints: * R ecent [...] report daily by telephone. He sees his building performance specialist, Dr. Minor, next week. A chest [...] dditional Findings: Tobacco non-user E x-cigarette smoker H cesar has been to [facility] for 43 years and has 2 children and 2 grandchildren. 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 He was born in [place], [place]. * Medications: T akingTamsulosin HCl 0.4 MG Capsule Oral Azithromycin 500 MG Tablet Oral Atorvastatin Calcium 10 MG Tablet 1 tablet Orally Once a day Nystatin 020297 UNIT/GM Powder APPLY TOPICALLY 3 TIMES A [...] tablet Orally Once a day Taking Nystatin 796830 UNIT/GM Powder APPLY TOPICALLY 3 TIMES A [...] N otes :Just before discharge from an [facility] rehabilitation he was begun on Keppra for periods of unresponsiveness. A repeat CT scan November 18, 2024 showed improvement in the hemorrhage and edema. The Her will be discontinued until the electroencephalogram is done. We have requested a repeat visit from [facility] neurology. 5 . H yponatremia - E87.1 N otes :After admission to [facility] he required hypertonic saline and then [...] Sign off status: Completed true * Provider: Mike Kothari MD Date: 0 02/24/2025 Generated for Printi ng/Faxing/eTransmitting on: 1 10/18/2024 08:54 PM EST History and Physical Notes * [...]
--- OUTSIDE RECORDS SUMMARY | 2025-02-27 09:41 | XMS_ITS ---
Author Organization Robbie Kothari III, MD Address [address] [place] [address] [place] [address] Care Team Providers Care Arch Support Technician Name Role Phone Dr. Robbie Kothari III Primary Care Provider REASON FOR VISIT update on how pt is feeling Social History Sex Assigned At : Social History Observation Description Sex Assigned At Male Encounters Encounter Location Date Provider Diagnosis Robbie Kothari III, MD [address] [place] [address] [place] [address] 02/27/2025 Robbie Kothari Plan Of Treatment Next Appt Details Provider Name:Robbie Kothari , 09/12/2025 09:15:00 AM, [address] [place] [address] [place], [address], Provider Name:Robbie Kothari , 10/17/2025 10:30:00 AM, [address] [place] [address] [place], [address], Provider Name:Robbie Kothari , 01/29/2026 09:30:00 AM, [address] [place] [address] [place], [address], Progress Notes * Freeman ROCHADOB: 0 (85 yo M)Acc No.[id number]:02/27/2025 Patient: Aranza Freeman BURGESS :1940 A ge:85 Y S ex:Male Address:[address] [place] [address], [place] [address] * true * Date: Generated for Chip andres/Awais/Tiffanie on: 10/18/2024 08:54 PM EST
--- OUTSIDE RECORDS SUMMARY | 2025-03-03 04:40 | XMS_ITS ---
Author Organization Robbie Kothari III, MD Address [address] [place] [address] [place] [address] Care Team Providers Care Ladle Handler Name Role Phone Dr. Robbie Kothari III Primary Care Provider [phone] REASON FOR VISIT ? Rx Social History Sex Assigned At : Social History Observation Description Sex Assigned At Male Encounters Encounter Location Date Provider Diagnosis Robbie Kothari III, MD [address] [place] [address] [place] [address] 03/03/2025 Robbie Kothari Plan Of Treatment Next Appt Details Provider Name:Robbie Kothari , 09/12/2025 09:15:00 AM, [address] [place] [address] [place], [address], Provider Name:Robbie Kothari , 10/17/2025 10:30:00 AM, [address] [place] [address] [place], [address], Provider Name:Robbie Kothari , 01/29/2026 09:30:00 AM, [address] [place] [address] [place], [address], Progress Notes * Freeman ROCHADOB: 0 (85 yo M)Acc No.[id number]:03/03/2025 Patient: Freeman CAZARES :1940 A ge:85 Y S ex:Male Address:[address] [place] [address] * true * Date: Generated for Chip andres/Awais/Tiffanie on: 10/18/2024 08:57 PM EST
--- OUTSIDE RECORDS SUMMARY | 2025-03-09 09:18 | XMS_ITS ---
Author Organization Robbie Kothari III, MD Address [address] [address] [place] [address] Care Team Providers Care Electric Stop Installer Name Role Phone Dr. 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) Referral Organization Robbie Kothari III, MD Referring Provider First Name Robbie Referring Provider Last Name Saniya Referring Provider Speciality Internal M edicine Referred Organization [facility] nter Referred Provider [facility], Core Physical Therapy Referred Address [address] [place] [phone], Referred Provider Specialty Physical The rapist General [...] Provider Speciality Internal M edicine Referred Provider [facility] er, Speech and Hearing Referred Provider Specialty Unknown General Notes DSarika 03/09/2025 02:27:01 PM > Referral and last progress not faxed Referral Priority Routine Referral Appointment Date 03/15/2025 REASON FOR VISIT referral Social History Sex Assigned At : Social History Observation Description Sex Assigned At Male Encounters Encounter Location Date Provider Diagnosis Robbie Kothari III, MD [address] [address] [place] [address] 03/09/2025 Robbie Kothari Plan Of Treatment Referrals Referral Date Details 03/09/2025 03/09/2025, Evaluate and Treat Physical Therapy OT, Core Physical Therapy [facility], [address] [place] [address], [place], [place], [phone], 03/09/2025 03/09/2025, Evaluate and Treat Speech Therapy, Speech and Hearing [facility] Next Appt Details Provider Name:Robbie Kothari , 09/12/2025 09:15:00 AM, [address] [place] [address] [address] [place], [place], [address], Provider Name:Robbie Kothari , 10/17/2025 10:30:00 AM, [address] [place] [address] [address], [place], [address], Provider Name:Robbie Kothari , 01/29/2026 09:30:00 AM, [address] [place] [address] [address], [place], [address], Progress Notes * Freeman ROCHADOB: 0 (85 yo M)Acc No.[id number]:03/09/2025 Patient: Aranza BURGESSFreeman :1940 A ge:85 Y S ex:Male Address:[address] [place] [address] Subjective: * Chief Complaints: * R eferral * Medical History: * Surgical History: * Hospitalization/Major Diagno stic Procedure: * Medications: Objective: * Vitals: * Physical Examination: Assessment: Plan: * Treatment: * Procedure Codes: * true * Date: Generated for Larisai dmitry/Selving/eTransmitting on: 1 10/18/2024 08:54 PM EST Consultation Request Notes Referral Date Referring Provider Referred Provider Not es 03/09/2025 Saniya [facility], Core Physical Therapy Evaluate and Treat Physical Therapy OT 03/09/2025 Saniya [facility], Speech and Hearing Evaluate and Treat Speech Therapy
--- OUTSIDE RECORDS SUMMARY | 2025-03-10 04:22 | XMS_ITS ---
Author Organization Robbie Kothari III, MD Address [address] [facility] [place] [address] Care Team Providers Care Communications Technologist Name Role Phone Dr. Robbie Kothari III [...] Provider Diagnosis Robbie Kothari III, MD [address] [place] [address] [place] [address] 03/10/2025 Robbie Kothari Plan Of Treatment Medication Medication Name Sig Start Date Stop Date Notes predniSONE 20 MG 1 tablet with food o r milk Orally Once a day for 10 days 03/10/2025 05/09/2025 Next Appt Details Provider Name:Robbie Kothari , 09/12/2025 09:15:00 AM, [address] [place] [address] [place], [address], Provider Name:Robbie Kothari , 10/17/2025 10:30:00 AM, [address] [place] [address] [place], [address], Provider Name:Robbie Kothari , 01/29/2026 09:30:00 AM, [address] [place] [address] [place], [address], Progress Notes * Freeman ROCHA JDOB: 0 (85 yo M)Acc No.[id number]:03/10/2025 Patient: Freeman CAZARES :1940 A ge:85 Y S ex:Male Address:[address] [place] [address] * Refills Start predniSONE Tablet, 20 MG, Orally, 10 Tablet, 1 tablet with food or milk, Once a day, 10 days, Refills=5 * true * Date: Generated for Chip andres/Awais/Juaquinitting on: 10/18/2024 08:58 PM EST
--- OUTSIDE RECORDS SUMMARY | 2025-03-20 05:45 | XMS_ITS ---
Author Organization Robbie Kothari III, MD Address [address] [place] [address] Care Team Providers Care Orthopedic Dentist Name Role Phone Dr. Robbie Kothari III Primary Care Provider [phone] Allergies Allergen (clinical drug ingredient) Drug/Non Drug Allergy documented on EMR Reaction Allergy Type Onset Date Status No Known Drug Allergy Unknown Drug Allergy Active No Known Food Allergy Unknown Drug Allergy Active REASON FOR VISIT Mycobacterial pulmonary infection, Recent cerebral hemorrhage Left hemisphere, Gout, Benign prostatic hypertrophySleep apnea Medications Medication SIG (Take, Route, Frequency, Duration) Notes Start Date End Date Status Nystatin 000810 UNIT/GM APPLY TOPICALLY 3 TIMES A DAY [...] 03/10/2025 Active Hydrocortisone 1 % 1 application Building Maintenance Custodian ally Twice a day 01/27/2025 Active Albuterol [...] Date Provider Diagnosis Robbie Kothari III, MD [address] [place] [address] [place] [address] 03/20/2025 Robbie Venturarne Former smoker Z87.89 1 [...] We have requested a repeat visit from [facility] neurology. 03/20/2025 Nontraumatic hemorrhage of left cerebral [...] Sig Start Date Stop Date Notes Nystatin 663995 UNIT/GM APPLY TOPICALLY 3 TIMES A DAY FOR 30 DAYS APPLY TO THE AFFECTED AREA THREE TIMES A DAY External Atorvastatin Calcium 10 MG 1 tablet Orally Once a day Azithromycin 500 MG Oral Tamsulosin HCl 0.4 MG Oral predniSONE 20 MG 1 tablet with food o r milk Orally Once a day 03/10/2025 Hydrocortisone 1 % 1 application Building Maintenance Custodian ally Twice a day 01/27/2025 Albuterol Sulfate (2.5 MG/3M L) 0.083% Inhalation Next Appt Details Follow Up: 6 Weeks, Reason: ov Provider Name:Robbie Kothari , 09/12/2025 09:15:00 AM, [address] [place] [address] [place], [address], Provider Name:Robbie Kothari , 10/17/2025 10:30:00 AM, [address] [place] [address] [place], [address], Provider Name:Robbie Kothari , 01/29/2026 09:30:00 AM, [address] [place] [address] [place], [address], Progress Notes * Freeman ROCHAB: 0 (85 yo M)Acc No.[id number]:03/20/2025 Progress Notes Patient: Freeman CAZARES Provider: Mike Kothari MD :1940 A ge:85 Y S ex:Male Date:03/20/2025 Address[id number] Subjective: * Chief Complaints: * M ycobacterial [...] Findings: Tobacco non-user E x-cigarette smoker H e has been to [facility] for 43 years and has 2 children and 2 grandchildren. 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 * Medications: T akingTamsulosin HCl 0.4 MG Capsule 1 capsule Orally at bed time Azithromycin 500 MG Tablet 1 tablet Orally Once a day Atorvastatin Calcium 10 MG Tablet 1 tablet Orally Once a day Nystatin 075759 UNIT/GM Powder APPLY TOPICALLY 3 TIMES A [...] tablet Orally Once a day Taking Nystatin 101294 UNIT/GM Powder APPLY TOPICALLY 3 TIMES A [...] N otes :Just before discharge from an [facility] rehabilitation he was begun on Keppra for periods of unresponsiveness. A repeat CT scan November 18, 2024 showed improvement in the hemorrhage and edema. The Her will be discontinued until the electroencephalogram is done. We have requested a repeat visit from [facility] neurology. 8 . N ontraumatic hemorrhage of [...] Once a day; C ontinue Nystatin Powder, 250377 UNIT/GM, APPLY TOPICALLY 3 TIMES A DAY [...] Kothari MD Date: 0 03/20/2025 Generated for Chip andres/Awais/Tiffanie on: 10/18/2024 08:55 PM EST History and Physical Notes * [...]
--- OUTSIDE RECORDS SUMMARY | 2025-05-02 06:00 | XMS_ITS ---
Author Organization Robbie Kothari III, MD Address [address] [place] [place] [address] Care Team Providers Care Broke Beater Name Role Phone Dr. Robbie Kothari III Primary Care Provider [phone] Allergies Allergen (clinical drug ingredient) Drug/Non Drug Allergy documented on EMR Reaction Allergy Type Onset Date Status No Known Drug Allergy Unknown Drug Allergy Active No Known Food Allergy Unknown Drug Allergy Active REASON FOR VISIT Mycobacterium avium pulmonary infection, Hyperlipidemia, Benign prosthetic hypertrophy, Cerebral hemorrhageLeft cerebral hemorrhage, Seizures, Postural hypotension Medications Medication SIG (Take, Route, Frequency, Duration) Notes Start Date End Date Status Tylenol PM Extra Strength 500-25 MG 1 tablet at bedtime as needed Orally Once a day Active Advil 200 MG 1 tablet with food o r milk as needed Orally Three times a day Active Albuterol Sulfate (2.5 MG/3ML) 0.083% Inhalation Active Azithromycin 500 MG Oral Active Atorvastatin Calcium 10 MG 1 tablet Oral ly Once a day Active rifAMPin 300 MG TAKE 2 CAPS BY MOUTH ONCE DAILY Oral Active Tamsulosin HCl 0.4 MG Oral Active Finasteride 5 MG Oral Act aditi Social History Tobacco Use: Social History Observation [...] non-user Ex-cigaret te smoker Vital Signs Temperature 97.5 degrees Fahrenheit 05/02/20 25 Blood pressure systolic 119 mm Hg 05/02/20 25 Blood pressure diastolic 68 mm Hg 025 Heart Rate 62 /min 05/02/2025 Respiratory Rate 15 /min 05/02/2025 Height 76 in 05/02/2025 Weight 170 lbs 05/02/2025 BMI 20.69 kg/m2 05/02/2025 Oximetry 93 % 05/02/2025 Encounters Encounter Location Date Provider Diagnosis Robbie Kothari III, MD [address] [place] [address] [place] [address] 05/02/2025 Robbie Kothari Former smoker Z87.89 1 ; 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 ; Abnormal weight loss R63.4 ; Abdominal hernia without obstruction and without gangrene, recurrence not specified, unspecified hernia type K46.9 ; 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 05/02/2025 Nontraumatic hemorrhage of left cerebral hemisphere (ICD-10 [...] be seen once a week at least. 05/02/2025 Abnormal weight loss (ICD-10 - R63.4) He has gained 6 pounds and his BMI is now normal at 20. This problem has resolved. 05/02/2025 Abdominal hernia without obstruction and without gangrene, recurrence not specified, unspecified hernia type (ICD-10 - K46.9) The hernia is now asymptomatic and will be observed without treatment. 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 05/02/2025 Benign prostatic hyperplasia with lower urinary tract symptoms (ICD-10 - N40.1) He says he is rising from sleep up to 4 times a night. His tamsulosin waas stopped because of a low blood pressure. It curtis now resumed. He is happy with this level of control. We discussed further lifestyle modifications he can maake to reduce nocturia. 05/02/2025 Sleep apnea in adult (ICD-10 - G47.30) He is using the new CPAP machine without difficulty and is pleased with the results. 05/02/2025 Leg weakness, bilateral (ICD-10 - R29.898) 05/02/2025 Benign prostatic hyperplasia without lower urinary tract symptoms (ICD-10 - N40.0) Plan Of Treatment Medication Medication Name Sig Start Date Stop Date Notes Tylenol PM Extra Strength 500-25 MG 1 tablet at bedtime as needed Orally Once a day Advil 200 MG 1 tablet with food o r milk as needed Orally Three times a day Albuterol Sulfate (2.5 MG/3M L) 0.083% Inhalation Azithromycin 500 MG Oral Atorvastatin Calcium 10 MG 1 tablet Orally Once a day rifAMPin 300 MG TAKE 2 CAPS BY MOUTH ONCE DAILY Oral Tamsulosin HCl 0.4 MG Oral Finasteride 5 MG Oral Next Appt Details Follow Up: 2 Months, Reason: OV Provider Name:Robbie Kothari , 09/12/2025 09:15:00 AM, [address] [place] [address] [place], [address], Provider Name:Robbie Kothari , 10/17/2025 10:30:00 AM, [address] [place] [address] [place], [address], Provider Name:Robbie Kothari , 01/29/2026 09:30:00 AM, [address] [place] [address] [place], [address], Progress Notes * Freeman ROCHADOB: 0 (85 yo M)Acc No.[id number]:05/02/2025 Progress Notes Patient: Freeman CAZARES Provider: Mike Kothari MD :1940 A ge:85 Y S ex:Male Date:05/02/2025 Address:[address] [id number] Subjective: * Chief Complaints: * M ycobacterium avium pulmonary infectionHyperlipidemiaBenign prosthetic hypertrophyCerebral hemorrhageLeft cerebral hemorrhageSeizuresPostural hypotension * HPI: C OVID-19 Screening: Jose guerrero returns for ongoing medical management. He is now taking Ryskamp in from the ehs specialist for his mycobacterial pulmonary infection. He continues to cough up brown sputum. He is still recovering from a cerebral hemorrhage. His speech is fluent and he has no word finding difficulty but he finds he cannot read. He is seeing speech therapy now. He rises from sleep only twice a night now. The tamsulosin has been very effective. Urology has increased the dose to 0.8 mg daily. Questions H ave you had any new onset fever, chills, cough, congestion, sore throat, shortness of breath, muscle aches? N o * ROS: G eneral/Constitutional: pain o nly normal aches and pains. C hills d enies.?Fatigue a dmits. F ever d enies. E NT: Decreased hearing d enies. R espiratory: Cough w orse at night. C ardiovascular: Chest pain with exertion d enies. D yspnea on exertion?with prolonged activity. S hortness of breath w ith exertion. G astrointestinal: Constipation d enies. D ecreased appetite d enies.?Diarrhea d enies. H eartburn d enies. N ausea d enies. R ectal bleeding?denies. V omiting d enies. H ematology: bruising d enies. p etechiae d enies. S wollen glands n one have been noted. G enitourinary: Frequent urination t wice a night. M usculoskeletal: Muscle aches d [...] x-cigarette smoker H e has been to [facility] for 43 years and has 2 children and 2 grandchildren. 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 He was born in [place], [place]. * Medications: T akingTylenol PM Extra Strength 500-25 MG Tablet 1 tablet at bedtime as needed Orally Once a day Advil 200 MG Tablet 1 tablet with food or milk as needed Orally Three times a day Atorvastatin Calcium 10 MG Tablet 1 tablet Orally Once a day Albuterol Sulfate (2.5 MG/3ML) 0.083% Nebulization Solution Inhalation Azithromycin 500 MG Tablet Oral Tamsulosin HCl 0.4 MG Capsule Oral Finasteride 5 MG Tablet Oral rifAMPin 300 MG Capsule TAKE 2 CAPS BY MOUTH ONCE DAILY Oral Taking Tylenol PM Extra Strength 500-25 MG Tablet 1 tablet at bedtime as needed Orally Once a day Taking Advil 200 MG Tablet 1 tablet with food or milk as needed Orally Three times a day Taking Atorvastatin Calcium 10 MG Tablet 1 tablet Orally Once a day Taking Albuterol Sulfate (2.5 MG/3ML) 0.083% Nebulization Solution Inhalation Taking Azithromycin 500 MG Tablet Oral Taking Tamsulosin HCl 0.4 MG Capsule Oral Taking Finasteride 5 MG Tablet Oral Taking rifAMPin 300 MG Capsule TAKE 2 CAPS BY MOUTH ONCE DAILY Oral DiscontinuedTamsulosin HCl 0.4 MG Capsule Oral Nystatin 246063 UNIT/GM Powder APPLY TOPICALLY 3 TIMES A DAY FOR 30 DAYS APPLY TO THE AFFECTED AREA THREE TIMES A DAY External Hydrocortisone 1 % Ointment 1 application Externally Twice a day predniSONE 20 MG Tablet 1 tablet with food or milk Orally Once a day Azithromycin 500 MG Tablet Oral Medication List reviewed and reconciled with the patientDiscontinued Tamsulosin HCl 0.4 MG Capsule Oral Discontinued Nystatin 686337 UNIT/GM Powder APPLY TOPICALLY 3 TIMES A DAY FOR 30 DAYS APPLY TO THE AFFECTED AREA THREE TIMES A DAY External Discontinued Hydrocortisone 1 % Ointment 1 application Externally Twice a day Discontinued predniSONE 20 MG Tablet 1 tablet with food or milk Orally Once a day Discontinued Azithromycin 500 MG Tablet Oral Medication List reviewed and reconciled with the patient * Allergies: N o Known Drug AllergyNo Known Food Allergyno[Allergies Verified] Objective: * Vitals: H t: 76, Wt:170, BMI:20.69, BP:119/68, HR:62, RR:15, Temp:97.5, Oxygen sat %:93, Wt-k.11. * P ast Orders: Lab:Complete Blood Count Aut o Diff * Collection Date 04/24/2025 02/16/2025 01/15/2025 Collection Time 09:45 AM 07:37 AM 05:50 AM Order Date 04/24/2025 02/16/2025 01/15/2025 White Blood Count 6.0 (Ref Range: 4.8-10.8 X10*3/uL) 6.6 (Ref Range: 4.8-10.8 X10*3/uL) 5.0 (Ref Range: 4.8-10.8 X10*3/uL) Red Blood Count 4.51 L (Ref Range: 4.60-5.80 X10*6/uL) 4.04 L (Ref Range: 4.60-5.80 X10*6/uL) 3.33 L (Ref Range: 4.60-5.80 X10*6/uL) Hemoglobin 14.4 (Ref Range: 14.0-18.0 g/dl) 12.9 L (Ref Range: 14.0-18.0 g/dl) 10.8 L (Ref Range: 14.0-18.0 g/dl) Hematocrit 41.7 L (Ref Range: 42.0-52.0 %) 36.8 L (Ref Range: 42.0-52.0 %) 30.1 L (Ref Range: 42.0-52.0 %) Mean Corpuscular Volume 92.5 (Ref Range: 80.0-98.0 fL) 91.1 (Ref Range: 80.0-98.0 fL) 90.4 (Ref Range: 80.0-98.0 fL) Mean Corpuscular Hemoglobin 31.9 (Ref Range: 27.0-33.0 pg) 31.9 (Ref Range: 27.0-33.0 pg) 32.4 (Ref Range: 27.0-33.0 pg) Mean Corpuscular HGB Conc 34.5 (Ref Range: 31.0-36.0 g/dl) 35.1 (Ref Range: 31.0-36.0 g/dl) 35.9 (Ref Range: 31.0-36.0 g/dl) Red Cell Distribution Width 13.7 (Ref Range: 11.0-16.0 %) 13.2 (Ref Range: 11.0-16.0 %) 13.3 (Ref Range: 11.0-16.0 %) Platelet Count 196 (Ref Range: 160-400 X10*3/uL) 363 (Ref Range: 160-400 X10*3/uL) 212 (Ref Range: 160-400 X10*3/uL) Mean Platelet Volume 10.9 (Ref Range: 9.4-12.4 fL) 8.9 L (Ref Range: 9.4-12.4 fL) 9.5 (Ref Range: 9.4-12.4 fL) Neutrophils Percent Auto 58.2 (Ref Range: 45-73 %) 61.8 (Ref Range: 45-73 %) 63.2 (Ref Range: 45-73 %) Imm Gran Pct Auto 0.3 (Ref Range: 0.0-0.4 %) 0.8 H (Ref Range: 0.0-0.4 %) 0.6 H (Ref Range: 0.0-0.4 %) Lymphocytes Percent Auto 22.7 (Ref Range: 20-40 %) 19.6 L (Ref Range: 20-40 %) 15.4 L (Ref Range: 20-40 %) Monocytes Percent Auto 13.3 H (Ref Range: 2-11 %) 12.9 H (Ref Range: 2-11 %) 12.0 H (Ref Range: 2-11 %) Eosinophils Percent Auto 3.8 (Ref Range: 0-4 %) 3.5 (Ref Range: 0-4 %) 6.8 H (Ref Range: 0-4 %) Basophils Percent Auto 1.7 (Ref Range: 0-2 %) 1.4 (Ref Range: 0-2 %) 2.0 (Ref Range: 0-2 %) NRBC Pct Auto 0.0 (Ref Range: 0.0-0.2 /100WBC) 0.0 (Ref Range: 0.0-0.2 /100WBC) 0.0 (Ref Range: 0.0-0.2 /100WBC) Neutrophils Absolute Auto 3.5 (Ref Range: 2.0-8.3 x10*3/uL) 4.1 (Ref Range: 2.0-8.3 x10*3/uL) 3.2 (Ref Range: 2.0-8.3 x10*3/uL) Imm Gran Abs Auto 0.02 (Ref Range: 0.00-0.03 X10*3/uL) 0.05 H (Ref Range: 0.00-0.03 X10*3/uL) 0.03 (Ref Range: 0.00-0.03 X10*3/uL) Lymphocytes Absolute Auto 1.4 (Ref Range: 1.2-4.9 X10*3/uL) 1.3 (Ref Range: 1.2-4.9 X10*3/uL) 0.8 L (Ref Range: 1.2-4.9 X10*3/uL) Monocytes Absolute Auto 0.8 (Ref Range: 0.1-1.2 X10*3/uL) 0.9 (Ref Range: 0.1-1.2 X10*3/uL) 0.6 (Ref Range: 0.1-1.2 X10*3/uL) Eosinophils Absolute Auto 0.2 (Ref Range: 0.0-0.4 X10*3/uL) 0.2 (Ref Range: 0.0-0.4 X10*3/uL) 0.3 (Ref Range: 0.0-0.4 X10*3/uL) Basophils Absolute Auto 0.1 (Ref Range: 0.0-0.2 X10*3/uL) 0.1 (Ref Range: 0.0-0.2 X10*3/uL) 0.1 (Ref Range: 0.0-0.2 X10*3/uL) NRBC Abs Auto 0.000 (Ref Range: 0.0-0.012 X10*3/uL) 0.000 (Ref Range: 0.0-0.012 X10*3/uL) 0.000 (Ref Range: 0.0-0.012 X10*3/uL) * Lab:Erythrocyte Sedimentatio n Rate * Collection Date 04/24/2025 12/30/2024 12/31/2021 Collection Time 09:45 AM 10:53 AM 07:04 AM Order Date 04/24/2025 12/30/2024 12/31/2021 Erythrocyte Sedimentation Rate 21 H (Ref Range: 0-15 MM/HR) 60 H (Ref Range: 0-15 MM/HR) 6 (Ref Range: 0-15 MM/HR) * Lab:Liver Panel * Collection Date 04/24/2025 01/13/2025 12/23/2022 Collection Time 09:45 AM 11:57 AM 06:58 AM Order Date 04/24/2025 01/13/2025 12/23/2022 Bilirubin Total 0.8 (Ref Range: 0.0-1.0 mg/dL) 1.0 (Ref Range: 0.0-1.0 mg/dL) 0.7 (Ref Range: 0.0-1.0 mg/dL) Bilirubin Direct 0.3 (Ref Range: 0.0-0.5 mg/dL) 0.3 (Ref Range: 0.0-0.5 mg/dL) 0.2 (Ref Range: 0.0-0.5 mg/dL) Aspartate Amino Transferase 25 (Ref Range: 5-37 U/L) 28 (Ref Range: 5-37 U/L) 28 (Ref Range: 5-37 U/L) Alanine Aminotransferase 13 (Ref Range: 0-40 U/L) 12 (Ref Range: 0-40 U/L) 16 (Ref Range: 0-40 U/L) Total Protein 7.6 (Ref Range: 6.5-8.0 g/dL) 7.4 (Ref Range: 6.5-8.0 g/dL) 7.2 (Ref Range: 6.5-8.0 g/dL) Albumin Level 4.2 (Ref Range: 3.5-5.0 g/dL) 3.6 (Ref Range: 3.5-5.0 g/dL) 4.3 (Ref Range: 3.5-5.0 g/dL) Alkaline Phosphatase 84 (Ref Range: 39-117 U/L) 70 (Ref Range: 39-117 U/L) 68 (Ref Range: 39-117 U/L) * Lab:Basic Metabolic Panel * Collection Date 04/24/2025 01/15/2025 01/14/2025 Collection Time 09:45 AM 05:49 AM 05:49 AM Order Date 04/24/2025 01/15/2025 01/14/2025 Sodium 136 (Ref Range: 135-145 mmol/L) 135 (Ref Range: 135-145 mmol/L) 130 L (Ref Range: 135-145 mmol/L) Blood Urea Nitrogen 11 (Ref Range: 9-16 mg/dL) 12 (Ref Range: 9-16 mg/dL) 11 (Ref Range: 9-16 mg/dL) Creatinine 0.73 (Ref Range: 0.5-1.4 mg/dL) 0.70 (Ref Range: 0.5-1.4 mg/dL) 0.67 (Ref Range: 0.5-1.4 mg/dL) Glucose Random 55 LL (Ref Range: 60-115 mg/dL) 93 (Ref Range: 60-115 mg/dL) 95 (Ref Range: 60-115 mg/dL) Calcium 9.3 (Ref Range: 8.4-10.2 mg/dL) 8.7 (Ref Range: 8.4-10.2 mg/dL) 8.8 (Ref Range: 8.4-10.2 mg/dL) Potassium 4.2 (Ref Range: 3.3-5.1 mmol/L) 3.8 (Ref Range: 3.3-5.1 mmol/L) 4.0 (Ref Range: 3.3-5.1 mmol/L) Chloride 102 (Ref Range: 96-108 mmol/L) 101 (Ref Range: 96-108 mmol/L) 98 (Ref Range: 96-108 mmol/L) Carbon Dioxide 30 H (Ref Range: 22-29 mmol/L) 24 (Ref Range: 22-29 mmol/L) 24 (Ref Range: 22-29 mmol/L) Anion Gap 8 L (Ref Range: 12-20) 14 (Ref Range: 12-20) 12 (Ref Range: 12-20) Estimated Glomerular Filt Rate > 60 > 60 > 60 Creatinine Clr Calc Pharmacy NR 76.6 80.0 ???Imaging:US retroperitoneal comp (Order Date - 04/24/2025) (Performed Date - 04/24/2025) * Examination: G eneral Examination: GENERAL APPEARANCE: p leasant, well nourished, well developed, in no acute distress, calm and relaxed: elderly man. HEAD: a traumatic, normocephalic. EYES: [...] normal, no s3, or vascular bruits. LUNGS: : diminished breath sounds throughout: rhonchi on the RIGHT: rhonchi on the LEFT. BREASTS: no masses palpable bilaterally. ABDOMEN: b owel sounds normal, no ascites, no organomegaly, no mass. RECTAL EXAM: n ot examined. MUSCULOSKELETAL: e xtremities unremarkable, no clubbing, cyanosis or edema. PERIPHERAL PULSES: n ormal. NEUROLOGIC: a lert and oriented, cranial nerves 2-12 grossly intact, deep tendon reflexes 2+ symmetrical, motor strength Diminished but symmetricalupper and lower extremities, sensory exam intactSpeech fluent unable to read some word finding difficulty some memory issues with gait unsteady. PSYCH: a lert, oriented. Assessment: * Assessment: 1. 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 He [...] be seen once a week at least. 2 . F ormer smoker - Z87.891 N otes :He has a strategy to prevent relapse in times of stress and illness. 3 . A bnormal weight loss - R63.4 N otes :He has gained 6 pounds and his BMI is now normal at 20. This problem has resolved. 4 . A bdominal hernia without obstruction and without gangrene, recurrence not specified, unspecified hernia type - K46.9 N otes :The hernia is now asymptomatic and will be observed without treatment. 5 . A nterior subcapsular polar age-related cataract of both eyes - H25.033? Notes :He was given medical clearance for cataract surgery today without restriction. 6 . B enign prostatic hyperplasia with lower urinary tract symptoms - N40.1 Notes :He says he is rising from sleep up to 4 times a night. His tamsulosin waas stopped because of a low blood pressure. It curtis now resumed. He is happy with this level of control. We discussed further lifestyle modifications he can maake to reduce nocturia. 7 . S leep apnea in adult - G47.30 N otes :He is using the new CPAP machine without difficulty and is pleased with the results. 8 . L eg weakness, bilateral - R29.898 9 . B enign prostatic hyperplasia without lower urinary tract symptoms - N40.0 Plan: * Treatment: * Procedure Codes: 9 4760 MEASURE BLOOD OXYGEN LEVEL * Preventive Medicine: Counseling: S moking/Tobacco Use Patient counseled on the dangers of tobacco use and urged to quit. 0 05/02/2025 * Follow Up: 2 Months (Reason: OV) * Images: * Sign off status: Completed true * Provider: Mike Kothari MD Date: 0 05/02/2025 Generated for Larisai dmitry/Awais/eTbrandysmitting on: 1 10/18/2024 08:55 PM EST History and Physical Notes * HPI (History of Present Illness) Category Sub-Category Detail Notes COVID-19 Screening Questions Have you had any new onset fever, chills, cough, congestion, sore throat, shortness of breath, muscle aches?: No Examination Category Sub-Category Detail Notes General Examination GENERAL APPEARANCE: pleasant , well nourished, well developed, in no acute distress, calm and relaxed: elderly man HEAD: atraumatic, normocep halic EYES: eomi, perrla, anicte marifer, conjugate EARS: normal NOSE: septum intact NECK/THYROID: no jugular venous di stention, no carotid bruit, thyroid normal HEART: no clicks, gallops, murmurs, or rubs, regular rhythm, S1, S2 normal, no s3, or vascular bruits LUNGS: : diminished breath sounds throughout: rhonchi on the RIGHT: rhonchi on the LEFT ABDOMEN: bowel sounds normal, no ascites, no organomegaly, no mass NEUROLOGIC: alert and oriented, cranial nerves 2-12 grossly intact, deep tendon reflexes 2+ symmetrical, motor strength Diminished but symmetricalupper and lower extremities, sensory exam intactSpeech fluent unable to read some word finding difficulty some memory issues with gait unsteady SKIN: no suspicious lesion s, anicteric PERIPHERAL PULSES: normal BREASTS: no masses palpable b ilaterally MUSCULOSKELETAL: extremities unremark able, no clubbing, cyanosis or edema LYMPH NODES: no enlarged lymph no neno,spleen normal RECTAL EXAM: not examined PSYCH: alert, oriented ORAL CAVITY: normal, unremarkable
--- OUTSIDE RECORDS SUMMARY | 2025-07-17 06:15 | XMS_ITS ---
Author Organization Robbie Kothari III, MD Address [address] [place] [address] Care Team Providers Care Waiter/Waitress Cabin Class Name Role Phone Dr. Robbie Kothari III [...] Provider Diagnosis Robbie Kothari III, MD [address] [place] [address] [place] [address] 07/17/2025 Robbie Kothari Former smoker Z87.89 1 [...] Provider Name:Robbie Kothari , 09/12/2025 09:15:00 AM, [address] [place] [address] [address], [place], [address], Provider Name:oRbbie Kothari , 10/17/2025 10:30:00 AM, [address] [place] [address] [address], [place], [address], Provider Name:Robbie Kothari , 01/29/2026 09:30:00 AM, [address] [place] [address] [place], [address], Progress Notes * Freeman ROCHADOB: 0 (85 yo M)Acc No.[id number]:07/17/2025 Progress Notes Patient: Aranza BURGESS Noénichole Rosa Provider: Mike Kothari MD :1940 A ge:85 Y S ex:Male Date:07/17/2025 Address: [id number] Subjective: * Chief Complaints: * M ycobacterial [...] x-cigarette smoker Jose guerrero has been to [facility] for 43 years and has 2 children and 2 grandchildren. 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 * Medications: T akingTylenol PM Extra [...] Procedure Codes: 9 4760 MEASURE BLOOD OXYGEN [id number] CCIIV4 VAC NO PRSV 0.5 ML [id number] FLU VACC 4 LIBIA 3 YRS PLUS [...] of tobacco use and urged to quit. 1 09/16/2024 * Follow Up: 3 Months (Reason: OV) * Images: * Sign off status: Completed true * Provider: Mike Kothari MD Date: 09/16/2024 Generated for Chip andres/Awais/Tiffanie on: 10/18/2024 08:55 [...]
--- OUTSIDE RECORDS SUMMARY | 2025-08-04 12:00 | XMS_ITS ---
Author Organization Robbie Kothari III, MD Address [address] [place] [address] Care Team Providers Care Shipmaster Name Role Phone Dr. Robbie Kothari III Primary Care Provider [phone] Allergies Allergen (clinical drug ingredient) Drug/Non Drug Allergy documented on EMR Reaction Allergy Type Onset Date Status No Known Drug Allergy Unknown Drug Allergy Active No Known Food Allergy Unknown Drug Allergy Active REASON FOR VISIT Telehealth Medications Medication SIG (Take, Route, Frequency, Duration) Notes Start Date End Date Status Atorvastatin Calcium 10 MG 1 tablet Oral ly Once a day Active Tamsulosin HCl 0.4 MG Oral Active rifAMPin 300 MG TAKE 2 CAPS BY MOUTH ONCE DAILY Oral Active Arikayce 590 MG/8.4ML Inhalation Active Tylenol PM Extra Strength 500-25 MG 1 tablet at bedtime as needed Orally Once a day Active Advil 200 MG 1 tablet with food o r milk as needed Orally Three times a day Active Social History Tobacco Use: [...] Additional Findings: Tobacco non-user Ex-cigaret te smoker Encounters Encounter Location Date Provider Diagnosis Robbie Kothari III, MD [address] [place] [address] [place] [address] 08/04/2025 Robbie Kothari Former smoker Z87.891 Assessments Encounter Date Diagnosis (ICD Code) Assessment Notes Treatment Notes Treatment Clinical Notes 08/04/2025 Former smoker (ICD-10 - Z87.891) He has a strategy to prevent relapse in times of stress and illness. Plan Of Treatment Medication Medication Name Sig Start Date Stop Date Notes Atorvastatin Calcium 10 MG 1 tablet Orally Once a day Tamsulosin HCl 0.4 MG Oral rifAMPin 300 MG TAKE 2 CAPS BY MOUTH ONCE DAILY Oral Arikayce 590 MG/8.4ML Inhalation Tylenol PM Extra Strength 500-25 MG 1 tablet at bedtime as needed Orally Once a day Advil 200 MG 1 tablet with food o r milk as needed Orally Three times a day Next Appt Details Provider Name:Robbie Kothari , 09/12/2025 09:15:00 AM, [address] [place] [address] [address], [place], [address], Provider Name:Robbie Kothari , 10/17/2025 10:30:00 AM, [address] [place] [address] [address], [place], [address], Provider Name:Robbie Kothari , 01/29/2026 09:30:00 AM, [address] [place] [address] [address], [place], [address], Progress Notes * Freeman ROCHADOB: 0 (85 yo M)Acc No.[id number]:08/04/2025 Patient: Aranza BURGESS Noénichole Lee Provider: Mike Kothari MD :1940 A ge:85 Y S ex:Male Date:08/04/2025 Address:[address] [place], [place] [address], [id number] Subjective: * Chief Complaints: * 1 . Telehealth. * HPI: * : Telehealth L ocation of provider rendering services: { ...} [address] [facility] [address] L ocation of patient: laureen neshaess listed in demographics for today's visit P atient identification confirmed using: JOANNE Roque ame T elehealth method: T elephone only. Patient not visible to care provider. C onsent: P atient verbally consented to treatment, Patient verbally consented to billing insurance company, Patient informed of any privacy concerns related to method of visit Allan denise time spent with patient (mins) 1 5 * ROS: G eneral/Constitutional: pain o nly normal aches and pains. C hills d enies.?Fatigue a dmits. F ever d enies. E NT: Decreased hearing d enies. R espiratory: Cough d enies. C ardiovascular: Chest pain with exertion d enies. D yspnea on exertion?denies. S hortness of breath d enies. G astrointestinal: Constipation d enies. D ecreased appetite d enies.?Diarrhea d enies. H eartburn d enies. N ausea d enies. R ectal bleeding?denies. V omiting d enies. H ematology: bruising d enies. p etechiae d enies. S wollen glands n one have been noted. G enitourinary: Frequent urination d enies. M usculoskeletal: Muscle aches d enies. P ainful joints d enies. S ciatica d enies. W eakness d enies. S kin: Itching d enies. R north d enies. S kin lesion(s)?denies. N eurologic: Difficulty speaking d enies. D izziness d enies.?Headache d enies. L ow back pain d enies. P sychiatric: Depressed mood d enies. * Medical History: C olonic poyps 2002, benign prostatic hyperplasia (BPH), Hyperlipidemia, Left herniorraphy age 30, Neck and right shoulder pain, Squamous cell carcinoma left hand 12/2007, Pulmonary nodules, Rosacea. * Surgical History: c olonoscopy 2008. * Hospitalization/Major Diagno stic Procedure: N o history . * Family History: F ather: 73 yrs, [...] obacco Control (Standard) T obacco use: F ana smoker H ow long has it been since you last smoked??Greater than 10 years A dditional Findings: Tobacco non-user E x-cigarette smoker Jose guerrero has been to [facility] for 43 years and has 2 children and 2 grandchildren. 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 He was born in [place], [place]. * Medications: T aking Tylenol PM Extra Strength 500-25 MG Tablet 1 tablet at bedtime as needed Orally Once a day , Taking Advil 200 MG Tablet 1 tablet with food or milk as needed Orally Three times a day , Taking Atorvastatin Calcium 10 MG Tablet 1 tablet Orally Once a day , Taking Tamsulosin HCl 0.4 MG Capsule Oral , Taking rifAMPin 300 MG Capsule TAKE 2 CAPS BY MOUTH ONCE DAILY Oral , Taking Arikayce 590 MG/8.4ML Suspension Inhalation , Discontinued Azithromycin 500 MG Tablet Oral , Medication List reviewed and reconciled with the patient * Allergies: N o Known Drug Allergy, No Known Food Allergy. Objective: * Vitals: Assessment: * Assessment: 1. F ormer smoker - Z87.891 N otes :He has a strategy to prevent relapse in times of stress and illness. Plan: * Treatment: * Procedure Codes: 9 8012 SYNCH AUDIO-ONLY EST SF 10 * Preventive Medicine: Counseling: C are goal follow-up plan: Counseling for abnormal BMI given Y es Above Normal BMI Follow-up D ietary management education, guidance, and counseling, Dietary needs education, Exercise promotion: strength training, Exercise promotion: stretching, Feeding regime, Giving encouragement to exercise, Lifestyle education regarding diet, Nutrition / feeding management, Nutrition therapy, Prescribed activity/exercise education, Prescribed diet education, Prescribed dietary intake, Special diet education, Weight monitoring , Intervention, Order not done: Medical or Other reason not done * Images: * The named appointment provid er may or may not be the originator of this progress note, and it is not deemed complete until electronically signed by the appointment provider. Sign off status: Pending * Provider: Mike Kothari MD Date: 10/04/2024 Generated for Chip andres/Awais/Tiffanie on: 10/18/2024 08:55 PM EST History and Physical Notes * HPI (History of Present Illness) Category Sub-Category Detail Notes Telehealth Location of [facility] ider rendering services:: {...} [address] [facility] [address] Location of patient:: address listed in demographics [...]
--- OUTSIDE RECORDS SUMMARY | 2025-08-14 06:30 | XMS_ITS ---
Author Organization Robbie Kothari III, MD Address [address] [place] [address] Care Team Providers Care Senior Investment Analyst Name Role Phone Dr. Robbie Kothari III Primary Care Provider Allergies Allergen (clinical drug ingredient) Drug/Non Drug Allergy documented on EMR Reaction Allergy Type Onset Date Status No Known Drug Allergy Unknown Drug Allergy Active No Known Food Allergy Unknown Drug Allergy Active REASON FOR VISIT Recent hospitalization for viral syndrome, Mycobacterium AVM pulmonary infection, Hyperlipidemia, Sleep apnea, Benign prostatic hypertrophy, Cerebral hemorrhage, History of seizures, Gout Medications Medication SIG (Take, Route, Frequency, Duration) Notes Start Date End Date Status Tamsulosin HCl 0.4 MG Oral Active rifAMPin 300 MG TAKE 2 CAPS BY MOUTH ONCE DAILY Oral Active Arikayce 590 MG/8.4ML Inhalation Active Advil 200 MG 1 tablet with food o r milk as needed Orally Three times a day Active Atorvastatin Calcium 10 MG 1 tablet Oral ly Once a day Active Tylenol PM Extra Strength 500-25 MG 1 tablet at bedtime as needed Orally Once a day Active Social History [...] Problem Status W/U Status Risk Notes Problem [id number] Acute viral syndrome (B34.9) Active confirmed His abrupt weakness was caused by a viral syndrome. His respiratory panel showed rhino/enterovi tomas.He has now completely recovered. Vital Signs Temperature 97.2 degrees Fahrenheit 08/14/20 25 Blood pressure systolic 128 mm Hg 08/14/20 25 Blood pressure diastolic 65 mm Hg 025 Heart Rate 61 /min 08/14/2025 Height 76 in 08/14/2025 Weight 171 lbs 08/14/2025 BMI 20.81 kg/m2 08/14/2025 Encounters Encounter Location Date Provider Diagnosis Robbie Kothari III, MD [address] [place] [address] [place] [address] 08/14/2025 Robbie Kothari Acute viral syndrome B34.9 ; Mycobacterial infection, unspecified A31.9 ; Former smoker Z87.891 ; Abdominal hernia without obstruction and without gangrene, recurrence not specified, unspecified hernia type K46.9 ; 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 His respiratory panel showed rhino/enterovirus.H e has now completely recovered. 08/14/2025 Mycobacterial infection, unspecified (ICD-10 - A31.9) He says he did not tolerate the inhaled amikacin. I have referred him back to pulmonary to discuss this further. His pulmonary infection seems controlled today but now resolved. 08/14/2025 Former smoker (ICD-1 0 - Z87.891) He has a strategy to prevent relapse in times of stress and illness. 08/14/2025 Abdominal hernia without obstruction and without gangrene, recurrence not specified, unspecified hernia type (ICD-10 - K46.9) The hernia is now asymptomatic and will be observed without treatment. 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 08/14/2025 Hyperlipidemia (ICD-10 - E78.5) His lipids have been stable. Change in his regimen was necessary today. 08/14/2025 Sleep apnea in adult (ICD-10 - G47.30) He is using the new CPAP machine without difficulty and is pleased with the results. 08/14/2025 Benign prostatic hyperplasia with lower urinary tract symptoms (ICD-10 - N40.1) He has seen urology and then given tamsulosin and finasteride. He has stopped the finasteride because of handshaking. I recommended he discuss this with urology and continue the tamsulosin. His nocturia has improved. Plan Of Treatment Medication Medication Name Sig Start Date Stop Date Notes Tamsulosin HCl 0.4 MG Oral rifAMPin 300 MG TAKE 2 CAPS BY MOUTH ONCE DAILY Oral Arikayce 590 MG/8.4ML Inhalation Advil 200 MG 1 tablet with food o r milk as needed Orally Three times a day Atorvastatin Calcium 10 MG 1 tablet Orally Once a day Tylenol PM Extra Strength 500-25 MG 1 tablet at bedtime as needed Orally Once a day Next Appt Details Follow Up: 4 Weeks, Reason: OV Provider Name:Robbie Kothari , 09/12/2025 09:15:00 AM, [address] [place] [address] [place], [address], Provider Name:Robbie Kothari , 10/17/2025 10:30:00 AM, [address] [place] [address] [place], [place], [phone], Provider Name:Robbie Kothari , 01/29/2026 09:30:00 AM, [address] [place] [address] [place], [phone], Progress Notes * Freeman ROCHADOB: 0 (85 yo M)Acc No.[id number]:08/14/2025 Patient: Freeman CAZARES Provider: Mike Kothari MD :1940 A ge:85 Y S ex:Male Date:08/14/2025 Address:[address] [place], [place] [id number] Subjective: * Chief Complaints: * R ecent hospitalization for viral syndromeMycobacterium AVM pulmonary infectionHyperlipidemiaSleep apneaBenign prostatic hypertrophyCerebral hemorrhageHistory of seizuresGout * HPI: C OVID-19 Screening: He was recently in the hospital for 2 nights with a severe viral syndrome but has now returned to his normal status. He returned home on August 07, 2025. His appetite is good. He says his breathing is okay. He was recently given a prescription for inhaled amikacin by his legal financial specialist Dr. Minor but he finds it makes him sick and he has stopped taking it. I instructed him to let Dr. Minor know. He will see pulmonary later this week. He says he is sleeping well and his nocturia is only once a night. His dementia is unchanged. He was brought here by his from home he constantly seeks cues. Questions H ave you had any new onset fever, chills, cough, congestion, sore throat, shortness of breath, muscle aches? N o * ROS: G eneral/Constitutional: pain o nly normal aches and pains. C hills d enies.?Fatigue a dmits. F ever d enies. E NT: Decreased hearing i n both ears. R espiratory: Cough n on-productive. C ardiovascular: [...] x-cigarette smoker Jose guerrero has been to [facility] for 43 years and has 2 children and 2 grandchildren. 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 He was born in [place], [place]. * Medications: T akingTylenol PM Extra Strength 500-25 MG Tablet 1 tablet at bedtime as needed Orally Once a day Advil 200 MG Tablet 1 tablet with food or milk as needed Orally Three times a day Atorvastatin Calcium 10 MG Tablet 1 tablet Orally Once a day Tamsulosin HCl 0.4 MG Capsule Oral rifAMPin 300 MG Capsule TAKE 2 CAPS BY MOUTH ONCE DAILY Oral Arikayce 590 MG/8.4ML Suspension Inhalation Medication List reviewed and reconciled with the patientTaking Tylenol PM Extra Strength 500-25 MG Tablet 1 tablet at bedtime as needed Orally Once a day Taking Advil 200 MG Tablet 1 tablet with food or milk as needed Orally Three times a day Taking Atorvastatin Calcium 10 MG Tablet 1 tablet Orally Once a day Taking Tamsulosin HCl 0.4 MG Capsule Oral Taking rifAMPin 300 MG Capsule TAKE 2 CAPS BY MOUTH ONCE DAILY Oral Taking Arikayce 590 MG/8.4ML Suspension Inhalation Medication List reviewed and reconciled with the patient * Allergies: N o Known Drug AllergyNo Known Food Allergyno[Allergies Verified] Objective: * Vitals: H t: 76, Wt:171, BMI:20.81, BP:128/65, HR:61, Temp:97.2, Wt-k.56. * P ast Orders: Lab:Prostate Specific Antige n * Collection Date 07/25/2025 12/29/2024 07/17/2023 Collection Time 06:49 AM 09:07 AM 06:56 AM Order Date 07/25/2025 12/29/2024 07/17/2023 Prostate Specific Antigen 2.49 (Ref Range: <0.05-4.0 ng/mL) 2.95 (Ref Range: <0.05-4.0 ng/mL) 1.13 (Ref Range: <0.05-4.0 ng/mL) * Lab:Troponin-I High Sensitiv ity * Collection Date 08/05/2025 08/05/2025 01/13/2025 Collection Time 03:59 PM 01:29 PM 11:59 AM Order Date 08/05/2025 08/05/2025 01/13/2025 Troponin-I High Sensitivity 6.1 (Ref Range: <3.5-35.0 ng/L) 6.2 (Ref Range: <3.5-35.0 ng/L) 3.3 (Ref Range: <3.5-35.0 ng/L) ???Lab:Respiratory Panel (Order Date - 08/05/2025) (Collection Date & Time - 08/05/2025 06:19 PM)?ValueReference Range?Adenovirus PCRNot DetectedNot Detect. -?Bordetella pertussis PCRNot DetectedNot Detect. - ?Bordetella parapertussis PCRNot DetectedNot Detect. -?Chlamydia pneumoniae PCRNot DetectedNot Detect. -?Coronavirus 229E PCRNot Detected Not Detect. -?Coronavirus HKU1 PCRNot DetectedNot Detect. - ?Coronavirus NL63 PCRNot DetectedNot Detect. -?Coronavirus OC43 PCRNot DetectedNot Detect. -?SARS-CoV-2 PCRNot DetectedNot Detect. - ?Influenza A PCRNot DetectedNot Detect. -?Influenza B PCRNot DetectedNot Detect. -?Human metapneumovirus PCRNot DetectedNot Detect. - ?Rhino/Enterovirus PCRDetectedANot Detect. -?Mycoplasma pneumoniae PCRNot DetectedNot Detect. -?Parainfluenza 1 PCRNot DetectedNot Detect. - ?Parainfluenza 2 PCRNot DetectedNot Detect. -?Parainfluenza 3 PCR Not DetectedNot Detect. -?Parainfluenza 4 PCRNot DetectedNot Detect. - ?RSV PCRNot DetectedNot Detect. -?Resp Panel NA NoteSee Note- ?Influenza A H1 PCRNot DetectedNot Detect. -?Influenza A H1-2009 PCRNot DetectedNot Detect. -?Influenza A H3 PCRNot DetectedNot Detect. - * Lab:Partial Thromboplastin T vidal * Collection Date 08/05/2025 12/30/2024 Collection Time 01:29 PM 10:53 AM Order Date 08/05/2025 12/30/2024 Partial Thromboplastin Time 35.0 H (Ref Range: 26.7-34.1 SEC) 33.0 (Ref Range: 26.0-36.8 SEC) * Lab:SARS-CoV2/FLU/RSV * Collection Date 08/05/2025 01/13/2025 12/30/2024 Collection Time 01:29 PM 11:57 AM 02:01 PM Order Date 08/05/2025 01/13/2025 12/30/2024 Influenza A PCR NEGATIVE (Ref Range: Negative) NEGATIVE (Ref Range: Negative) NEGATIVE (Ref Range: Negative) Influenza B PCR NEGATIVE (Ref Range: Negative) NEGATIVE (Ref Range: Negative) NEGATIVE (Ref Range: Negative) Resp Syncy Virus RNA Qual PCR NEGATIVE (Ref Range: Negative) NEGATIVE (Ref Range: Negative) NEGATIVE (Ref Range: Negative) SARS COV2 PCR INHOUSE NEGATIVE (Ref Range: Negative) NEGATIVE (Ref Range: Negative) NEGATIVE (Ref Range: Negative) * Lab:Comprehensive Met. Panel * Collection Date 08/07/2025 08/06/2025 08/05/2025 Collection Time 10:11 AM 06:06 AM 01:29 PM Order Date 08/07/2025 08/06/2025 08/05/2025 Sodium 129 L (Ref Range: 135-145 mmol/L) 129 L (Ref Range: 135-145 mmol/L) 131 L (Ref Range: 135-145 mmol/L) Bilirubin Total 0.6 (Ref Range: 0.0-1.0 mg/dL) 0.7 (Ref Range: 0.0-1.0 mg/dL) 0.8 (Ref Range: 0.0-1.0 mg/dL) Aspartate Amino Transferase 28 (Ref Range: 5-37 U/L) 21 (Ref Range: 5-37 U/L) 24 (Ref Range: 5-37 U/L) Alanine Aminotransferase 6 (Ref Range: 0-40 U/L) 7 (Ref Range: 0-40 U/L) 7 (Ref Range: 0-40 U/L) Total Protein 7.1 (Ref Range: 6.5-8.0 g/dL) 6.9 (Ref Range: 6.5-8.0 g/dL) 7.7 (Ref Range: 6.5-8.0 g/dL) Albumin Level 3.8 (Ref Range: 3.5-5.0 g/dL) 3.8 (Ref Range: 3.5-5.0 g/dL) 4.3 (Ref Range: 3.5-5.0 g/dL) Alkaline Phosphatase 75 (Ref Range: 39-117 U/L) 71 (Ref Range: 39-117 U/L) 76 (Ref Range: 39-117 U/L) Potassium 4.2 (Ref Range: 3.3-5.1 mmol/L) 4.0 (Ref Range: 3.3-5.1 mmol/L) 4.0 (Ref Range: 3.3-5.1 mmol/L) Chloride 98 (Ref Range: 96-108 mmol/L) 98 (Ref Range: 96-108 mmol/L) 97 (Ref Range: 96-108 mmol/L) Carbon Dioxide 22 (Ref Range: 22-29 mmol/L) 21 L (Ref Range: 22-29 mmol/L) 26 (Ref Range: 22-29 mmol/L) Anion Gap 13 (Ref Range: 12-20) 14 (Ref Range: 12-20) 12 (Ref Range: 12-20) Blood Urea Nitrogen 14 (Ref Range: 9-16 mg/dL) 14 (Ref Range: 9-16 mg/dL) 17 H (Ref Range: 9-16 mg/dL) Creatinine 0.78 (Ref Range: 0.5-1.4 mg/dL) 0.69 (Ref Range: 0.5-1.4 mg/dL) 0.88 (Ref Range: 0.5-1.4 mg/dL) Estimated Glomerular Filt Rate > 60 > 60 > 60 Glucose Random 136 H (Ref Range: 60-115 mg/dL) 100 (Ref Range: 60-115 mg/dL) 82 (Ref Range: 60-115 mg/dL) Calcium 8.9 (Ref Range: 8.4-10.2 mg/dL) 8.9 (Ref Range: 8.4-10.2 mg/dL) 9.4 (Ref Range: 8.4-10.2 mg/dL) Creatinine Clr Calc Pharmacy 61.6 69.7 66.9 ???Lab:NT Pro B Type Natriuretic Pept (Order Date - 08/05/2025) (Collection Date & Time - 08/05/2025 01:29 PM)?ValueReference Range?NT Pro B Type Natriuretic Bawp307.6H<300 - pg/mL ???Lab:Osmolality, Serum (Order Date - 08/05/2025) (Collection Date & Time - 08/05/2025 08:12 PM)?ValueReference Range?Osmolality, [id number] 281-305 - mosm/kg * Lab:Lactic Acid * Collection Date 08/05/2025 01/13/2025 12/30/2024 Collection Time 01:29 PM 01:59 PM 10:53 AM Order Date 08/05/2025 01/13/2025 12/30/2024 Lactic Acid 0.9 (Ref Range: 0.5-2.0 mmol/L) 0.8 (Ref Range: 0.5-2.0 mmol/L) 1.0 (Ref Range: 0.5-2.0 mmol/L) * Lab:Complete Blood Count Aut o Diff * Collection Date 08/05/2025 04/24/2025 02/16/2025 Collection Time 01:29 PM 09:45 AM 07:37 AM Order Date 08/05/2025 04/24/2025 02/16/2025 White Blood Count 10.5 (Ref Range: 4.8-10.8 X10*3/uL) 6.0 (Ref Range: 4.8-10.8 X10*3/uL) 6.6 (Ref Range: 4.8-10.8 X10*3/uL) Red Blood Count 4.45 L (Ref Range: 4.60-5.80 X10*6/uL) 4.51 L (Ref Range: 4.60-5.80 X10*6/uL) 4.04 L (Ref Range: 4.60-5.80 X10*6/uL) Hemoglobin 14.6 (Ref Range: 14.0-18.0 g/dl) 14.4 (Ref Range: 14.0-18.0 g/dl) 12.9 L (Ref Range: 14.0-18.0 g/dl) Hematocrit 40.9 L (Ref Range: 42.0-52.0 %) 41.7 L (Ref Range: 42.0-52.0 %) 36.8 L (Ref Range: 42.0-52.0 %) Mean Corpuscular Volume 91.9 (Ref Range: 80.0-98.0 fL) 92.5 (Ref Range: 80.0-98.0 fL) 91.1 (Ref Range: 80.0-98.0 fL) Mean Corpuscular Hemoglobin 32.8 (Ref Range: 27.0-33.0 pg) 31.9 (Ref Range: 27.0-33.0 pg) 31.9 (Ref Range: 27.0-33.0 pg) Mean Corpuscular HGB Conc 35.7 (Ref Range: 31.0-36.0 g/dl) 34.5 (Ref Range: 31.0-36.0 g/dl) 35.1 (Ref Range: 31.0-36.0 g/dl) Red Cell Distribution Width 13.0 (Ref Range: 11.0-16.0 %) 13.7 (Ref Range: 11.0-16.0 %) 13.2 (Ref Range: 11.0-16.0 %) Platelet Count 224 (Ref Range: 160-400 X10*3/uL) 196 (Ref Range: 160-400 X10*3/uL) 363 (Ref Range: 160-400 X10*3/uL) Mean Platelet Volume 9.8 (Ref Range: 9.4-12.4 fL) 10.9 (Ref Range: 9.4-12.4 fL) 8.9 L (Ref Range: 9.4-12.4 fL) Neutrophils Percent Auto 75.1 H (Ref Range: 45-73 %) 58.2 (Ref Range: 45-73 %) 61.8 (Ref Range: 45-73 %) Imm Gran Pct Auto 0.6 H (Ref Range: 0.0-0.4 %) 0.3 (Ref Range: 0.0-0.4 %) 0.8 H (Ref Range: 0.0-0.4 %) Lymphocytes Percent Auto 11.8 L (Ref Range: 20-40 %) 22.7 (Ref Range: 20-40 %) 19.6 L (Ref Range: 20-40 %) Monocytes Percent Auto 10.8 (Ref Range: 2-11 %) 13.3 H (Ref Range: 2-11 %) 12.9 H (Ref Range: 2-11 %) Eosinophils Percent Auto 0.6 (Ref Range: 0-4 %) 3.8 (Ref Range: 0-4 %) 3.5 (Ref Range: 0-4 %) Basophils Percent Auto 1.1 (Ref Range: 0-2 %) 1.7 (Ref Range: 0-2 %) 1.4 (Ref Range: 0-2 %) NRBC Pct Auto 0.0 (Ref Range: 0.0-0.2 /100WBC) 0.0 (Ref Range: 0.0-0.2 /100WBC) 0.0 (Ref Range: 0.0-0.2 /100WBC) Neutrophils Absolute Auto 7.9 (Ref Range: 2.0-8.3 x10*3/uL) 3.5 (Ref Range: 2.0-8.3 x10*3/uL) 4.1 (Ref Range: 2.0-8.3 x10*3/uL) Imm Gran Abs Auto 0.06 H (Ref Range: 0.00-0.03 X10*3/uL) 0.02 (Ref Range: 0.00-0.03 X10*3/uL) 0.05 H (Ref Range: 0.00-0.03 X10*3/uL) Lymphocytes Absolute Auto 1.2 (Ref Range: 1.2-4.9 X10*3/uL) 1.4 (Ref Range: 1.2-4.9 X10*3/uL) 1.3 (Ref Range: 1.2-4.9 X10*3/uL) Monocytes Absolute Auto 1.1 (Ref Range: 0.1-1.2 X10*3/uL) 0.8 (Ref Range: 0.1-1.2 X10*3/uL) 0.9 (Ref Range: 0.1-1.2 X10*3/uL) Eosinophils Absolute Auto 0.1 (Ref Range: 0.0-0.4 X10*3/uL) 0.2 (Ref Range: 0.0-0.4 X10*3/uL) 0.2 (Ref Range: 0.0-0.4 X10*3/uL) Basophils Absolute Auto 0.1 (Ref Range: 0.0-0.2 X10*3/uL) 0.1 (Ref Range: 0.0-0.2 X10*3/uL) 0.1 (Ref Range: 0.0-0.2 X10*3/uL) NRBC Abs Auto 0.000 (Ref Range: 0.0-0.012 X10*3/uL) 0.000 (Ref Range: 0.0-0.012 X10*3/uL) 0.000 (Ref Range: 0.0-0.012 X10*3/uL) ???Lab:Prothrombin Time INR (Order Date - 08/05/2025) (Collection Date & Time - 08/05/2025 01:29 PM)?ValueReference Range?Prothrombin Time14.0H 11.2-13.5 - SEC?INTERNATIONAL NORM RATIO1.10.9-1.1 - * Lab:Sodium Urine Random * Collection Date 08/06/2025 01/14/2025 Collection Time 12:50 AM 09:54 AM Order Date 08/06/2025 01/14/2025 Sodium Urine Random 111.0 (Ref Range: mmol/L) 93.0 (Ref Range: mmol/L) * Lab:Complete Blood Count no Diff * Collection Date 08/07/2025 08/06/2025 Collection Time 10:11 AM 06:06 AM Order Date 08/07/2025 08/06/2025 White Blood Count 6.2 (Ref Range: 4.8-10.8 X10*3/uL) 8.4 (Ref Range: 4.8-10.8 X10*3/uL) Red Blood Count 4.21 L (Ref Range: 4.60-5.80 X10*6/uL) 4.16 L (Ref Range: 4.60-5.80 X10*6/uL) Hemoglobin 13.8 L (Ref Range: 14.0-18.0 g/dl) 13.6 L (Ref Range: 14.0-18.0 g/dl) Hematocrit 38.5 L (Ref Range: 42.0-52.0 %) 37.5 L (Ref Range: 42.0-52.0 %) Mean Corpuscular Volume 91.4 (Ref Range: 80.0-98.0 fL) 90.1 (Ref Range: 80.0-98.0 fL) Mean Corpuscular Hemoglobin 32.8 (Ref Range: 27.0-33.0 pg) 32.7 (Ref Range: 27.0-33.0 pg) Mean Corpuscular HGB Conc 35.8 (Ref Range: 31.0-36.0 g/dl) 36.3 H (Ref Range: 31.0-36.0 g/dl) Red Cell Distribution Width 12.3 (Ref Range: 11.0-16.0 %) 12.5 (Ref Range: 11.0-16.0 %) Platelet Count 207 (Ref Range: 160-400 X10*3/uL) 196 (Ref Range: 160-400 X10*3/uL) Mean Platelet Volume 9.8 (Ref Range: 9.4-12.4 fL) 9.6 (Ref Range: 9.4-12.4 fL) NRBC Pct Auto 0.0 (Ref Range: 0.0-0.2 /100WBC) 0.0 (Ref Range: 0.0-0.2 /100WBC) NRBC Abs Auto 0.000 (Ref Range: 0.0-0.012 X10*3/uL) 0.000 (Ref Range: 0.0-0.012 X10*3/uL) * Lab:Uric Acid * Collection Date 08/06/2025 12/30/2024 Collection Time 12:06 PM 10:53 AM Order Date 08/06/2025 12/30/2024 Uric Acid 4.1 (Ref Range: 3.4-7.0 mg/dL) 4.1 (Ref Range: 3.4-7.0 mg/dL) * Lab:Magnesium * Collection Date 08/07/2025 08/06/2025 01/13/2025 Collection Time 10:11 AM 06:06 AM 11:57 AM Order Date 08/07/2025 08/06/2025 01/13/2025 Magnesium 1.8 (Ref Range: 1.6-2.6 mg/dL) 1.6 (Ref Range: 1.6-2.6 mg/dL) 1.8 (Ref Range: 1.6-2.6 mg/dL) * Lab:Osmolality Urine * Collection Date 08/06/2025 01/14/2025 Collection Time 12:50 AM 09:54 AM Order Date 08/06/2025 01/14/2025 Osmolality Urine 499 (Ref Range: 373-1093 mosm/kg) 380 (Ref Range: 373-1093 mosm/kg) ???Imaging:CT angio chest PE protocol (Order Date - 08/05/2025) (Performed Date - 08/05/2025) * Imaging:XR chest 2V * Performed Date 08/05/2025 05/24/2025 04/12/2025 01:31 PM 11:25 AM 02:11 PM Order Date 08/05/2025 05/24/2025 04/12/2025 * Examination: G eneral Examination: GENERAL APPEARANCE: [...] or edema. PERIPHERAL PULSES: n ormal. NEUROLOGIC: A lert and oriented to person and place but not time c ranial nerves 2-12 grossly intact, deep tendon reflexes 2+ symmetrical, motor strength normal upper and lower extremities, sensory exam intactAdvanced memory loss, ambulatory but slow.? PSYCH: A lert and oriented to person and place but not to.? Assessment: * Assessment: 1. M ycobacterial infection, unspecified - A31.9 (Primary) N otes :He says he did not tolerate the inhaled amikacin. I have referred him back to pulmonary to discuss this further. His pulmonary infection seems controlled today but now resolved. 2 . A cute viral syndrome - B34.9 N otes :His abrupt weakness was caused by a viral syndrome. His respiratory panel showed rhino/enterovirus.He has now completely recovered. 3 . F ormer smoker - Z87.891 N otes :He has a strategy to prevent relapse in times of stress and illness. 4 . A bdominal hernia without obstruction and without gangrene, recurrence not specified, unspecified hernia type - K46.9 N otes :The hernia is now asymptomatic and will be observed without treatment. 5 . A nterior subcapsular polar age-related cataract of both eyes - H25.033? Notes :He was given medical clearance for cataract surgery today without restriction. 6 . H yperlipidemia - E78.5 N otes :His lipids have been stable. Change in his regimen was necessary today. 7 . S leep apnea in adult - G47.30 N otes :He is using the new CPAP machine without difficulty and is pleased with the results. 8 . B enign prostatic hyperplasia with lower urinary tract symptoms - N40.1? Notes :He has seen urology and then given tamsulosin and finasteride. He has stopped the finasteride because of handshaking. I recommended he discuss this with urology and continue the tamsulosin. His nocturia has improved. Plan: * Treatment: * Procedure Codes: 9 9495 TRANS CARE MGMT 14 DAY DISCH * Preventive Medicine: Counseling: S moking/Tobacco Use Patient counseled on the dangers of tobacco use and urged to quit. 1 10/15/2024 * Follow Up: 4 Weeks (Reason: OV) * Images: * Sign off status: Completed true * Provider: Mike Kothari MD Date: 10/15/2024 Generated for Printi ng/Awais/eTransmitting on: 10/18/2024 08:57 PM EST History and Physical Notes * [...] no ascites, no organomegaly, no mass NEUROLOGIC: Alert and oriented t o person and place but not time cranial nerves 2-12 grossly intact, deep tendon reflexes 2+ symmetrical, motor strength normal upper and lower extremities, sensory exam intactAdvanced memory loss, ambulatory but slow SKIN: no suspicious lesion s, anicteric PERIPHERAL PULSES: normal BREASTS: no masses palpable b ilaterally MUSCULOSKELETAL: extremities unremark able, no clubbing, cyanosis or edema LYMPH NODES: no enlarged lymph no neno,spleen normal RECTAL EXAM: not examined PSYCH: Alert and oriented t o person and place but not to ORAL CAVITY: normal, unremarkable
[2025-08-17 15:04] VITALS: BP 146/72; PULSE 73; O2SAT 93; BMI 20.7
--- NOTE | 2025-08-17 15:04 | A.OFFVIS_ITS ---
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 The patient followed for many years with CT scan following some abnormal findings including pulmonary nodules and interstitial changes. Ultimately no significant findings were noted. For the last year the patient has had episodes of coughing up blood. He has not coughed up blood now more than 6 months. He denies any weight loss or night sweats. He states that he walks about a mi a day and denies any shortness of breath. He has been evaluated for cardiac symptoms including palpitations. At this point the patient does not use any respiratory inhalers. He does not feel like he needs new either. We did look at his chest x-ray from September 2020 demonstrating some increased interstitial changes compared to his previous x-ray from 2019. We personally reviewed that x-ray was also personally reviewed the CT scan of the chest that he had back in 2017 demonstrating some interstitial changes primarily in the upper lung zones. The patient did have multiple pulmonary nodules. Therefore, based on his abnormal chest x-ray and ongoing intermittent coughing with sometimes hemoptysis the patient needs to have a CT scan of the chest. In addition to that will having undergo pulmonary function studies to assess her COPD. 01/08/2021 the patient is here for pulmonary follow-up visit. Overall he is feeling better. Denies any significant hemoptysis at this time. He did undergo his pulmonary function studies which were reassuring without any obstruction no restriction. He does have moderate diffusion impairment. In addition to that he did undergo a repeat CT scan of the chest which was compared to his CT scan from 2017. It demonstrated interval worsening of the bronchiectasis the pulmonary nodules and tree-in-bud. This appears to be more consistent with a smoldering infectious process versus inflammatory process. At this point the patient is agreeable to bronchoscopy to assess for any infectious etiologies and also to rule out malignant processes. 01/30/2021 the patient is here for pulmonary follow-up visit. He is status post bronchoscopy. He did have significant purulent secretions in the airways that were suction. Otherwise no other acute abnormalities noted. His cultures are all negative at this time. Still waiting for the results of the mycobacteria cultures assessing for the possibility of a mycobacterial lung disease. In the meantime he has been using his nebulizer. At this point he is to get an Acapella valve to further provide chest physical therapy with the goal of maintaining good pulmonary hygiene. 07/29/2021 the patient is here for a pulmonary follow-up visit. Overall the patient has been doing much better. He is responding well to the nebulized therapy followed by the Acapella valve. He has been able to clear significant amount of secretions. His lungs appear to be better overall with less congestion. He has been using the nebulizer once a day and I did agree with him decreasing his frequency to once a day at this time. He does have underlying pulmonary nodules. The last time he had a CT scan of the chest was back in November 2020. Will plan to follow-up with a CT scan in 6 months time which should be little bit longer than a year. I am hopeful the nodules are stable we can at that point follow them as needed. However, if the nodules are growing in size further diagnostic interventions will be warranted. 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 At this point the patient is doing well and does not require antimicrobial agents at this time. 10/03/2021 the patient is here for a pulmonary follow-up visit. He continues to have a productive cough on a regular basis. He does use the nebulized therapy and is able to expectorate well. 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 He also understands that treating it will require 17 months of antimicrobial therapy in order to follow the Infectious Disease recommendations. He also understands that there is a high relapse straight even after completing the 17 months. Therefore at this point will follow him closely since his symptoms do not appear to be worsening. We did review his CT scan of the chest demonstrating bronchiectatic changes in addition to pulmonary nodular densities. No evidence of any cavitations at this time. Patient last CT scan was back in 2020. the repeat CT scan scheduled for December 2021. if the nodules are changing increasing of progressing we need to consider treating the mycobacteria infection. In the meantime will try aggressive chest physical therapy by continuing his nebulized therapy and also adding hypertonic saline. The patient does have an Acapella valve any start using it after the nebulized therapy. In addition to that the patient did have a recent fall. He did go to the ER and the scott to the back of his call because of a laceration. He is also complaining of some left-sided flank discomfort from his fall. He does have some point tenderness over the ribs. Likely contusions. He had a CT scan of the brain demonstrating some chronic changes. He did not have any chest imaging studies. At this point will follow-up after his CT scan he is going to continue with aggressive chest physical therapy. 12/24/2021 the patient is here for pulmonary follow-up visit. He describes worsening cough productive in nature. He is also developing increasing shortness of breath. Moderate severity with activity. The patient did have a repeat CT scan of the chest that we personally reviewed demonstrating waxing waning pulmonary nodules in addition to having interval progression of the bronchiectasis and appears to have more treating budding and more progression of his airway disease. This is likely secondary to the smoldering infection with the non tuberculosis mycobacterial infection. He did try the percussion valve without any significant improvement. Therefore this time view of his worsening symptoms and also worsening CT scan will go ahead and start him on therapy. Will try him on the lowest dose possible in order for him to be able to tolerated and we can always consider increasing the medication. Once he is on therapy around 4-6 weeks after worse will get another sputum culture to make sure that he is tolerating the therapy. He also have to undergo blood work and also an EKG to make sure that he can tolerate therapy. Also mentioned on the report of the CT scan is that he does have 2 mild compression fractures. At this point the patient denies any back discomfort. However, in view of the findings the patient should follow up with his primary care doctor to be assessed for the possibility of osteopenia or osteoporosis. 02/25/2022 so the patient is here for a pulmonary follow-up visit. Overall he is doing well from a respiratory status. His cough is overall better. He still expectorating some but much less. He is tolerating the antimycobacterial therapy. Has been on the azithromycin 3 times a week in addition to a lower dose rifampin and ethambutol. Denies any eye Darron edwards. He did have an EKG back in December without any QT changes. The patient has not had any blood work since then. He will go for blood work to make sure that everything else is stable. In the meantime he is having some diarrhea issues. We did talk about the side effects of the medications and GI symptoms. If his GI symptoms becomes too significant we talked about dropping 1 of the agents to just at the dual therapy. The patient understands that the triple antibiotic regimen to avoid too much resistance buildup due to the mycobacterial resistance possibilities. In the meantime the patient did have a CT scan back in December demonstrating interval worsening of pulmonary nodules and bronchiectatic changes. Will plan to continue the therapy and follow-up with a CT scan in June 2022. The patient meantime will provide us with the sputum sample to make sure that the mycobacterium is eradicating. 06/30/2022 the patient is here for a pulmonary follow-up visit. Overall continues to feel well. His cough is overall better. He is exercising regularly. He is tolerating the triple antimicrobial therapy. The only adverse effect is discoloration of the urine which is common with the rifampin In addition to some diarrhea. We did talk about adding probiotics to his regimen. He will try some [id number] options. He did have a repeat CT scan of the chest demonstrating interval improvement of the cavitary lesions and also improvement of the parenchymal disease. No evidence of any new nodules and he has stable pulmonary nodules. Therefore it is encouraging that the therapy has been clinically affected also radiologically with evidence of improvement. He understands that treatment should at least last been 12-15 months of therapy. His sputum culture repeat has not demonstrated any mycobacterial disease. 12/26/2022 the patient is here for a pulmonary follow-up visit. He continues to do well. His cough is overall better. He continues on the triple antimicrobial therapy. He has completed now 1 year. Based on the fact that the patient is doing better will go ahead and stop the ethambutol and the rifampin and will continue with the azithromycin for now. His last EKG was reassuring. Will plan to continue on the azithromycin and will plan to repeat the CT scan in May 2023. If the patient develops any worsening symptoms prior to that he is to ca ll the office for an earlier evaluation. 06/24/2023 the patient is here for a pulmonary follow-up visit. He continues on the azithromycin 3 times a week 500 mg. He is happy that he is stopped the ethambutol and rifampin. Respiratory tobin the patient is doing well denies any worsening cough or shortness of breath. Although he has had episodes of hemoptysis he states. Is minimal amount scant in amount. At this point is subsided. Still the patient is aware that if it happens again if it is a very more significance he would have to call again in order to address the hemoptysis. He did recently have a CT scan 06/17/2023 which I personally reviewed. It appears patient does have some significant bronchiectasis and nodular densities and tree-in-bud and all are very similar to his previous CT scan at least there is no worsening of disease. He also has a new pulmonary nodule in the right base. Seems to be also related to the underlying mycobacterial disease. At this point will continue with the azithromycin 3 times a week since the patient clinically doing well. Although, if his hemoptysis worsens his respiratory symptoms worsen then will need to readdress that. I will also provide him with a sputum cup in order for him to bring a sputum sample. The patient should get a repeat CT scan 6 months to follow-up with a new pulmonary nodule. 12/16/2023 the patient is here for a pulmonary follow-up visit. Overall he continues to do well. Continues on the azithromycin 500 mg 3 times a week. His cough is improved. Denies any significant congestion. Denies any hemoptysis. Overall the patient has been doing well. Back in July he did grew Klebsiella from his sputum culture. Otherwise has not grown any other organisms. He did have a CT scan of the chest which we personally reviewed and also compared to the CT scans from 10/03/2019 in 2022. it appears that he is waxing waning pulmonary nodules along with bronchiectatic changes treating budding and a right upper lobe thick-walled cavitary lesion. For the most part the nodular densities have changed some indeed have gotten little better but again some new ones are present. The patient also has significant bronchiectasis. He has not been using the Acapella valve for chest PT. We did talk about the importance of that. The patient understands that most likely the findings on the CT scan all has to do with mycobacterial disease. Also predisposes him to Other enteric bacteria. Still is hard to know for sure if any of those nodular densities have any malignant potentials. At this point clinically the patient is doing well and therefore this CT scan is also reassuring. Will go ahead and follow-up in 6 months. The patient needs to have an EKG to make sure he is tolerating the macrolide therapy. In addition to that will request another sputum for culture and also AFB. If the patient develops any worsening respiratory symptoms specially hemoptysis needs to call the office quickly. Otherwise will follow-up in 6 months. Will discuss further imaging studies when he returns in 6 months. 06/17/2024 the patient is here for a pulmonary follow-up visit. Overall he continues to do well cough is better chest congestion is better overall feels normal. The patient had sputum cultures back in December indeed positive for mycobacterium still. The organism still sensitive to the azithromycin. Initially he was not a broader course of antimicrobial therapy and subsequently we were able to switch him down to monitor therapy. Currently he is going to send a small prophylactic dose of azithromycin. His imaging studies CT scans have not changed which is reassuring as well. Has waxing waning pulmonary nodules. Although he has extensive bronchiectatic changes because of the chronicity of the non tuberculosis mycobacterial infection. Still though since the patient is doing well and he is fairly asymptomatic and also considering the risks additional medications at this time based on his age and other comorbidities will go ahead and just keep him on the azithromycin 3 times a week at the current dose. If any worsening symptoms we call. Otherwise will follow- up with a chest x-ray in 6 months. Prior to the next visit he should also get an EKG. 12/16/2024 the patient is here for pulmonary follow-up visit. Since we last spoke the patient was diagnosed with pneumonia. Chest x-ray demonstrated a worsening right upper lobe airspace disease. The patient had just had a stroke and likely aspiration related. He had been on the azithromycin daily in addition to that we had put him on cefpodoxime. His symptoms improved. He is not coughing as much. He is using nebulizer. Sometimes when uses it at night he does get choked up with secretions. Therefore I did time just to use it in the morning and then in the evening as needed. He should also be using his Acapella valve. The patient's exam is reassuring. Will have him get an x-ray today to make sure that this right upper lobe process as improved. If it looks any worse then will consider additional antibiotic therapy. The patient also had blood work done including a low magnesium level will have him go for blood work as well. The patient will return 4 months. He will continue to work with physical therapy occupational therapy for his recent stroke. Seems like he has already shown some improvement. 03/01/2025 the patient is here for pulmonary follow-up visit. Since we last spoke he went to the hospital again with pneumonia. Was back in January. He was given antibiotics and also chlorhexidine mouthwash. After she had a chest x-ray which I personally reviewed in February. Still has some evidence of airspace disease but very stable compared to his previous x-rays and his recent pneumonia. He states that he is still coughing up some phlegm although recently his cough has decrease in his phlegm production has decreased as well. His exam is indeed reassuring. He continues on the azithromycin on a daily basis. And he had been on the chlorhexidine mouthwash. He does not have his own dentition but still will go ahead and continue for a month to minimize risk of aspiration. He is doing better with the eating and he has actually gained some weight. His cough is also strong which is reassuring. Overall he is doing a little bit better. Will continue with current regimen will try to get another sputum if he is able to do so and will repeat the x-ray before the next visit in 3 months. He has any worsening symptoms or any concerning symptoms he can always call for an earlier assessment. 04/17/2025 the patient is here for a pulmonary follow-up visit. Overall he is doing better. He is eating better he is gaining weight he is also walking better after having the stroke he is recovering very well. We did review his sputum cultures again demonstrating the mycobacterium avium complex. And also reviewed his most recent x-ray from 04/12/2025 and I did compare to previous x- rays from February and January of 2025 demonstrating the persistent airspace disease related to his underlying smoldering lower respiratory infection from the non tuberculosis mycobacterial process. He has been on the azithromycin now daily without any significant improvement in the cough and symptoms. Will go ahead and add rifampin to his regimen. He already has I issues so will avoid ethambutol. He will do it 3 times a week and then get blood work and then if it is stable he can increase it to daily. In the meantime he may be a good candidate for amikacin. Will go ahead and request a prior approval to start him on amikacin at this time. Will reassess with a repeat x-ray when he returns in 3 months. 05/30/2025 the patient is here for pulmonary follow-up visit. Overall he is doing okay. He has been under rifampin 3 times a week and also the azithromycin 3 times a week. Recently he did get the Arikayce any did start the neb therapy daily. He is having a cough with it though. He has tolerated the therapy. Chest congestion seems to be better. He did have a chest x-ray which I personally reviewed demonstrating interval improvement in the airspace disease. He has continues to have bronchiectatic changes in nodular density consistent with the mycobacterial disease. Overall he seems to be doing okay, will go ahead and start him on inhaled corticosteroids and also long-acting bronchodilators to help him with the cough overall. The patient can also have some cough medication at nighttime if it is difficult for him to sleep because of the coughing induced likely from the Arikayce. Will continue to monitor him and he will monitor closely for any adverse effects. Will plan to get a chest x-ray and a follow-up in 3 months. If he has any issues prior to this he will call for an earlier assessment. 08/17/2025 the patient is here for pulmonary follow-up visit. He was seen in the hospital with hemoptysis and shortness of breath. He was actually found to have positive for enterovirus. He was treated and released. The patient states that he has been having hard time with the amikacin nebulizer therapy. He started developing increasing cough and tremulousness with it. He had been tolerating albuterol before just fine is just now using the amikacin. Does not like the side effects. He also noticed some increased shortness of breath or even the family's noticed that he has been a little more winded with activity. We did again look at a CT scan of the chest demonstrating extensive bronchiectasis in nodular densities consistent with a MAC. Again he did culture positive for the MAC recently. He has had MAC disease now for about 4 years. Difficult to treat altogether. Will go ahead and add ethambutol to his regimen. Will talk tried him on 400 mg 3 times a week and then will increase that to 800 for next visit. He continues on the rifampin 3 times a week and continues with the azithromycin daily at this time. Will hold off on the amikacin at this point specially because of the adverse side effects and also because the fact that he had some bleeding. Hard to know if it was related to the viral syndrome or indeed could have been further irritation to the mucosa lining from the amikacin causing bleeding so will hold off on any further amikacin at this time. The patient will return in 3 months she will get blood work before I see him in order to see if we can increase the medication effectively. COUNTS INCLUDE 234 BEDS AT THE [facility] Medical History (Updated 08/15/25 @ 00:01 by Erich Anthony) Bronchiectasis Mycobacterial disease Bronchiectasis COPD (chronic obstructive pulmonary disease) Hernia HLD (hyperlipidemia) BPH (benign prostatic hyperplasia) Hemoptysis Pulmonary nodules Cough Abnormal chest x-ray Surgical History Hx of colonoscopy Social History Household Members: Spouse Housing: House Do you presently have visiting nurse or other home services: Yes Alcohol intake: former Patient Tobacco Use Status: Former Tobacco user Tobacco use type: Cigarette Years Smoked: 20 years service: No Review of Systems Const Denies headache(s), Denies night sweats, Reports weight gain and Denies weight loss ENT Denies change in voice, Denies headache(s), Denies lip swelling, Denies mouth pain, Reports nasal congestion, Reports nasal discharge and Denies tongue swelling Card Denies chest pain Resp Denies change in phlegm color, Reports chest congestion, Reports cough, Reports hemoptysis, Denies excessive phlegm production, Denies pain on inspiration and Denies pain with cough GI Denies abdominal pain and Denies diarrhea Musc Denies no additional complaints Neuro Reports as per HPI and Denies headache(s) Psych Denies no additional complaints Brad/Lymph Denies easy bleeding and Denies lymphadenopathy Aller/Immun Denies lip swelling and Denies tongue swelling Physical Exam Vital Signs: Last Vital Signs Pulse 73 08/17/25 15:04 BP 146/72 H 08/17/25 15:04 Pulse Ox 93 08/17/25 15:04 Oxygen Delivery Method Room Air 08/17/25 15:04 BMI result Body Mass Index 20.7 Last Vital Signs Temp 98.5 F 01/16/25 07:44 Pulse 94 01/16/25 08:33 Resp 18 01/16/25 08:33 BP 119/73 01/16/25 07:44 Pulse Ox 97 01/16/25 07:44 O2 Del Method Room Air 01/16/25 07:44 BMI result Body Mass Index 18.5 Const General: comfortable Neck Neck: Yes supple Chest Chest palpation & inspection: abnormal inspection of the chest Resp Effort & Inspection: normal respiratory effort Auscultation: no crackles, no rales, no rhonchi and diminished lung sounds Cardio Rhythm: abnormal rhythm Heart sounds: S1 normal heart sound present and S2 normal heart sound present GI Palpation (GI): Soft to palpation Skin General skin exam: no rashes or lesions noted Extrem General: Yes no clubbing, cyanosis or edema Assessment & Plan Assessment & Plan (1) Bronchiectasis: Code(s): J47.9 - Bronchiectasis, uncomplicated Category: Medical Qualifiers: Bronchiectasis type: uncomplicated Qualified Code(s): J47.9 - Bronchiectasis, uncomplicated (2) Pulmonary nodules: Code(s): R91.8 - Other nonspecific abnormal finding of lung field Category: Medical (3) Cough: Code(s): R05 - Cough Category: Medical Qualifiers: Cough type: chronic Qualified Code(s): R05.3 - Chronic cough (4) Mycobacterial disease: Code(s): A31.9 - Mycobacterial infection, unspecified Category: Medical (5) COPD (chronic obstructive pulmonary disease): Code(s): J44.9 - Chronic obstructive pulmonary disease, unspecified Category: Medical Qualifiers: COPD type: chronic bronchitis Chronic bronchitis type: simple Qualified Code(s): J41.0 - Simple chronic bronchitis Plan CPT with neb and acapella valve continue nebulizer therapy with albuterol continue azithromycin 500mg daily continue Rifampin 3 times a week stop Amikacin nebs (side effects) start Ethambutol MWF 400mg Bloodwork prior to next visit start Wixela 250mcg daily cough medicine as needed F/U 3 months Orders: Orders Complete Blood Count Auto Diff Today J47.9 - Bronchiectasis, uncomplicated Basic Metabolic Panel Today J47.9 - Bronchiectasis, uncomplicated Liver Panel Today J47.9 - Bronchiectasis, uncomplicated Medications: New fluticasone propion-salmeterol 250-50 mcg/dose (Wixela Inhub) 1 inh inhalation Q12H 60 ea 11RF 30 days ethambutol 400 mg PO 3XW 12 tabs 6RF 28 days fluticasone propion-salmeterol 250-50 mcg/dose (Wixela Inhub) 1 inh inhalation Q12H 60 ea 11RF 30 days codeine-guaifenesin 10-100 mg/5 mL 10 mL PO Q6H PRN 300 mL 0RF cough 10 days Coding Level of Care Code Complex visit Add On G2211 Diagnoses Bronchiectasis without complication J47.9 Bronchiectasis type: uncomplicated Pulmonary nodules R91.8 Chronic cough R05.3 Cough type: chronic 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
--- OUTSIDE RECORDS SUMMARY | 2025-08-17 20:55 | XMS_ITS | Encounter Summary ---
Author Organization [facility] Address [address] [place] [address] Care Team Providers Care Folder Seamer Name Role Phone Gloria Preston MD Primary Care Provider [phone] Encounter Details Date Type Department Care Team (Late st Contact Info) Description 11/07/2024 Lab Requisition [facility] - Main Lab [address] [place] [address] Gloria Preston MD [address] [place] [address] Encounter for other general examination Social History [...] mmol/L LAB CHEMISTRY METHOD 11/07/2024 1:06 PM [facility] CO2 22 21 - 32 mmol/L LAB CHEMISTRY METHOD 11/07/2024 1:06 PM [facility] Anion Gap 13(H) 3 - 11 LAB CHEMISTRY METHOD 11/07/2024 1:06 PM [facility] Glucose 78 70 - 100 mg/dL LAB CHEMISTRY METHOD 11/07/2024 1:06 PM [facility] BUN 20 5 - 25 mg/dL LAB CHEMISTRY METHOD 11/07/2024 1:06 PM [facility] Creatinine 0.55(L) 0.70 - 1.30 mg/dL LAB CHEMISTRY METHOD 11/07/2024 1:06 PM [facility] eGFR 98 >=60 mL/min/1. 73m2 LAB CHEMISTRY METHOD 11/07/2024 1:06 PM [facility] Comment:Calculation based on the Chronic Kidney Disease Epidemiology Collaboration (CKD-EPI) equation refit without adjustment for race. BUN/Creatinine Ratio 36.4 LAB CHEMISTRY METHOD 11/07/2024 1:06 PM [facility] Calcium 8.6 8.5 - 10.5 mg/dL LAB CHEMISTRY METHOD 11/07/2024 1:06 PM [facility] AST (SGOT) 44(H) 10 - 42 unit/L LAB CHEMISTRY METHOD 11/07/2024 1:06 PM [facility] Comment:Results verified by repeat testing ALT (SGPT) 41 10 - 60 unit/L LAB CHEMISTRY METHOD 11/07/2024 1:06 PM [facility] Comment:Results verified by repeat testing Alkaline Phosphatase 100 42 - 121 unit/L LAB CHEMISTRY METHOD 11/07/2024 1:06 PM [facility] Total Protein 6.4 6.0 - 8.0 g/dL LAB CHEMISTRY METHOD 11/07/2024 1:06 PM [facility] Albumin 2.7(L) 3.2 - 5.0 g/dL LAB CHEMISTRY METHOD 11/07/2024 1:[address] [facility] Total Bilirubin 1.1 0.0 - 1.4 mg/dL LAB CHEMISTRY METHOD 11/07/2024 1:[address] [facility] Blood Venous blood specimen / Unknown Venipuncture / Unknown 11/07/2024 5:23 AM EST 11/07/2024 10:38 AM EST us Gloria Preston MD LAB BLOOD ORDERABLES Final Resu lt [facility] [address] [place] [address], documented in this encounter Visit Diagnoses Diagnosis Encounter for other general examination documented in this encounter Care Teams Folder Seamer Relationship Specialty Start Date End Date Gloria Preston MD [address] [place] [address] PCP - General Hospitalist Medicine 11/05/24 documented as of this encounter
--- OUTSIDE RECORDS SUMMARY | 2025-08-17 20:55 | XMS_ITS | Encounter Summary ---
Author Organization [facility] Address [address] [place] [address] Care Team Providers Care Preschool Assistant Teacher Name Role Phone Gloria Preston MD Primary Care Provider [phone] Encounter Details Date Type Department Care Team (Late st Contact Info) Description 11/10/2024 Lab Requisition [facility] - Main Lab [address] [facility] [place] [address] Gloria Preston MD [address] [place] [address] Encounter for other general examination Social History [...] * Vitamin B12 (11/10/2024 6:06 AM EST) [facility] Vitamin B-12 413 250 - 900 pcg/mL LAB CHEMISTRY METHOD 11/10/2024 9:[address] [facility] Blood Venous blood specimen / Unknown Venipuncture / Unknown 11/10/2024 6:06 AM EST 11/10/2024 8:03 AM EST Gloria Preston MD LAB BLOOD ORDERABLES Final Resu lt Performing Organization Address [facility]/ZIP Co de Phone Number [facility] [address] [place] [address], [place] [phone] * Thyroid stimulating hormone (11/10/2024 6:06 AM EST) [facility] TSH 1.57 0.40 - 4.00 mcIU/mL LAB CHEMISTRY METHOD 11/10/2024 9:[address] [facility] Blood Venous blood specimen / Unknown Venipuncture / Unknown 11/10/2024 6:06 AM EST 11/10/2024 8:03 AM EST Gloria Preston MD LAB BLOOD ORDERABLES Final Resu lt [facility] [address] [place] [address], [place] [phone] * (ABNORMAL) CBC auto differential (11/10/2024 6:06 AM EST) [facility] WBC 6.0 4.8 - 10.8 K/[facility] LAB HEMETOLOGY METHOD 11/10/2024 8:[address] [facility] RBC 3.80(L) 4.50 - 5.50 M/[facility] LAB HEMETOLOGY METHOD 11/10/2024 8:44 AM [facility] Hemoglobin 12.4(L) 13.5 - 17.5 g/dL LAB HEMETOLOGY METHOD 11/10/2024 8:44 AM [facility] Hematocrit 36.7(L) 42.0 - 54.0 % LAB HEMETOLOGY METHOD 11/10/2024 8:44 AM [facility] MCV 95.6 79.0 - 98.0 FL LAB HEMETOLOGY METHOD 11/10/2024 8:44 AM [facility] MCH 32.3(H) 27.0 - 32.0 pcg LAB HEMETOLOGY METHOD 11/10/2024 8:44 AM [facility] MCHC 33.8 32.0 - 37.0 g/dL LAB HEMETOLOGY METHOD 11/10/2024 8:44 AM [facility] RDW 12.8 11.0 - 15.0 % LAB HEMETOLOGY METHOD 11/10/2024 8:44 AM [facility] Platelets 337 130 - 400 K/mcL LAB HEMETOLOGY METHOD 11/10/2024 8:44 AM [facility] MPV 9.8 7.0 - 11.0 FL LAB HEMETOLOGY METHOD 11/10/2024 8:44 AM [facility] NRBC 0.0 <1.0 % LAB HEMETOLOGY METHOD 11/10/2024 8:44 AM [facility] NRBC Absolute 0.00 <0.10 K/mcL LAB HEMETOLOGY METHOD 11/10/2024 8:44 AM [facility] Neutrophils Relative 72.1 % LAB HEMETOLOGY METHOD 11/10/2024 8:44 AM [facility] Lymphocytes Relative 14.8 % LAB HEMETOLOGY METHOD 11/10/2024 8:44 AM [facility] Monocytes Relative 9.9 % LAB HEMETOLOGY METHOD 11/10/2024 8:44 AM [facility] Eosinophils Relative 1.5 % LAB HEMETOLOGY METHOD 11/10/2024 8:44 AM [facility] Basophils Relative 1.2 % LAB HEMETOLOGY METHOD 11/10/2024 8:44 AM [facility] Immature Granulocytes Relative 0.5 % LAB HEMETOLOGY METHOD 11/10/2024 8:44 AM [facility] Neutrophils Absolute 4.29 1.50 - 7.00 K/mcL LAB HEMETOLOGY METHOD 11/10/2024 8:44 AM [facility] Lymphocytes Absolute 0.88(L) 1.00 - 5.00 K/mcL LAB HEMETOLOGY METHOD 11/10/2024 8:44 AM [facility] Monocytes Absolute 0.59 0.20 - 1.00 K/mcL LAB HEMETOLOGY METHOD 11/10/2024 8:44 AM [facility] Eosinophils Absolute 0.09 0.00 - 0.50 K/mcL LAB HEMETOLOGY METHOD 11/10/2024 8:44 AM [facility] Basophils Absolute 0.07 0.00 - 0.20 K/mcL LAB HEMETOLOGY METHOD 11/10/2024 8:44 AM [facility] Immature Granulocytes Absolute 0.03 0.00 - 0.03 K/mcL LAB HEMETOLOGY METHOD 11/10/2024 8:44 AM [facility] Blood Venous blood specimen / Unknown Venipuncture / Unknown 11/10/2024 6:06 AM EST 11/10/2024 8:03 AM EST us Gloria Preston MD LAB BLOOD ORDERABLES Final Resu lt [facility] [address] [place] [address], [place] [phone] * Magnesium (11/10/2024 6:06 AM EST) Pathologist [facility] Magnesium 2.0 1.9 - 2.6 mg/dL LAB CHEMISTRY METHOD 11/10/2024 9:04 AM [facility] Blood Venous blood specimen / Unknown Venipuncture / Unknown 11/10/2024 6:06 AM EST 11/10/2024 8:03 AM EST us Gloria Preston MD LAB BLOOD ORDERABLES Final Resu lt [facility] [address] [place] [address], [place] [phone] * (ABNORMAL) Basic metabolic panel (11/10/2024 6:06 AM EST) [facility] Sodium 136 133 - 145 mmol/L LAB CHEMISTRY METHOD 11/10/2024 9:04 AM [facility] Potassium 4.3 3.5 - 5.5 mmol/L LAB CHEMISTRY METHOD 11/10/2024 9:04 AM [facility] Chloride 103 96 - 110 mmol/L LAB CHEMISTRY METHOD 11/10/2024 9:04 AM [facility] CO2 25 21 - 32 mmol/L LAB CHEMISTRY METHOD 11/10/2024 9:04 AM [facility] Anion Gap 8 3 - 11 LAB CHEMISTRY METHOD 11/10/2024 9:04 AM [facility] Glucose 94 70 - 100 mg/dL LAB CHEMISTRY METHOD 11/10/2024 9:04 AM [facility] BUN 22 5 - 25 mg/dL LAB CHEMISTRY METHOD 11/10/2024 9:04 AM [facility] Creatinine 0.54(L) 0.70 - 1.30 mg/dL LAB CHEMISTRY METHOD 11/10/2024 9:[address] [facility] eGFR 98 >=60 mL/min/1. 73m2 LAB CHEMISTRY METHOD 11/10/2024 9:[address] [facility] Comment:Calculation based on the Chronic Kidney Disease Epidemiology Collaboration (CKD-EPI) equation refit without adjustment for race. BUN/Creatinine Ratio 40.7 LAB CHEMISTRY METHOD 11/10/2024 9:04 AM [facility] Calcium 9.1 8.5 - 10.5 mg/dL LAB CHEMISTRY METHOD 11/10/2024 9:04 AM [facility] Blood Venous blood specimen / Unknown Venipuncture / Unknown 11/10/2024 6:06 AM EST 11/10/2024 8:03 AM EST us Gloria Preston MD LAB BLOOD ORDERABLES Final Resu lt [facility] [address] [place] [address], documented in this encounter Visit Diagnoses Diagnosis Encounter for other general examination documented in this encounter Care Teams Preschool Assistant Teacher Relationship Specialty Start Date End Date Gloria Preston MD [address] [place] [address] PCP - General Hospitalist Medicine 11/05/24 documented as of this encounter
--- OUTSIDE RECORDS SUMMARY | 2025-08-17 20:55 | XMS_ITS | Clinical Summary ---
Author Organization [facility] Address [address] [place] [address] Phone Care Team Providers Care Hospice Rn Name Role Phone Robbie Kothari MD Primary Care Provider [phone] Allergies Active Allergy Reactions Criticality Noted Date Comments Latex Rash Low 02/02/2025 Iorfggoj-Fzcswzxzdm-Cdezbrqsi 2024 Medications albuterol 2.5 mg /3 mL [...] Office Visit [facility] [place] [id number] Semaj Etienne PA-C Cough, unspecified type (Primary [...] A/B, RSV, PCR (08/05/2025 11:29 AM EST) [facility] SARS-Cov-2 PCR Negative Negative 08/05/2025 12:10 PM EST [facility] POC Influenza A Negative Negative 08/05/2025 12:10 PM EST [facility] Influenza B Negative Negative 08/05/2025 12:10 PM EST [facility] RSV PCR Negative Negative 08/05/2025 12:10 PM EST [facility] Swab (Anterior Nares) 08/05/2025 11:29 AM EST 08/05/2025 12:10 PM EST Semaj Etienne PA-C LAB POCT DOCKED DEVICE U NSOLICTED RESULTS Final Result [facility] [address] [address], [facility] [phone] from Last 3 Months Insurance MEDICARE [place]PLAC[place] [place] [address] MEDICARE REPLACEMENT [facility] MEDICARE REPLACEMENT MEDICARE REPLACEMENT MEDICARE REPLACEMENT MEDICARE REPLACEMENT Care Teams Hospice Rn Relationship Specialty Start Date End Date Robbie Kothari MD [address] [place] [address] [address] [address] PCP - General Medical Oncology 08/05/25 Additional Source Comments The information contained in this document represents components of the legal health record. It is not the complete legal health record.[facility]
--- OUTSIDE RECORDS SUMMARY | 2025-08-17 20:55 | XMS_ITS | Encounter Summary ---
Author Organization [facility] Address [address] [place] [address] Care Team Providers Care Log Yard Manager Name Role Phone Gloria Preston MD Primary Care Provider [phone] Encounter Details Date Type Department Care Team (Late st Contact Info) Description 11/16/2024 Lab Requisition [facility] - Main Lab 299 [facility] [place] [address] Gloria Preston MD [address] [place] [address] Encounter for other general examination Social History [...] AM EST) WBC 3.8(L) 4.8 - 10.8 K/[facility] LAB HEMETOLOGY METHOD 11/16/2024 11:05 AM [facility] RBC 3.90(L) 4.50 - 5.50 M/mcL LAB HEMETOLOGY METHOD 11/16/2024 11:05 AM [facility] Hemoglobin 12.5(L) 13.5 - 17.5 g/dL LAB HEMETOLOGY METHOD 11/16/2024 11:05 AM [facility] Hematocrit 36.5(L) 42.0 - 54.0 % LAB HEMETOLOGY METHOD 11/16/2024 11:05 AM [facility] MCV 94.8 79.0 - 98.0 FL LAB HEMETOLOGY METHOD 11/16/2024 11:05 AM [facility] MCH 32.5(H) 27.0 - 32.0 pcg LAB HEMETOLOGY METHOD 11/16/2024 11:05 AM [facility] MCHC 34.2 32.0 - 37.0 g/dL LAB HEMETOLOGY METHOD 11/16/2024 11:05 AM [facility] RDW 13.0 11.0 - 15.0 % LAB HEMETOLOGY METHOD 11/16/2024 11:05 AM [facility] Platelets 307 130 - 400 K/mcL LAB HEMETOLOGY METHOD 11/16/2024 11:05 AM [facility] MPV 9.8 7.0 - 11.0 FL LAB HEMETOLOGY METHOD 11/16/2024 11:05 AM [facility] NRBC 0.0 <1.0 % LAB HEMETOLOGY METHOD 11/16/2024 11:05 AM [facility] NRBC Absolute 0.00 <0.10 K/mcL LAB HEMETOLOGY METHOD 11/16/2024 11:05 AM [facility] Neutrophils Relative 54.7 % LAB HEMETOLOGY METHOD 11/16/2024 11:05 AM [facility] Lymphocytes Relative 23.1 % LAB HEMETOLOGY METHOD 11/16/2024 11:05 AM [facility] Monocytes Relative 19.6 % LAB HEMETOLOGY METHOD 11/16/2024 11:05 AM [facility] Eosinophils Relative 0.5 % LAB HEMETOLOGY METHOD 11/16/2024 11:05 AM [facility] Basophils Relative 1.3 % LAB HEMETOLOGY METHOD 11/16/2024 11:05 AM [facility] Immature Granulocytes Relative 0.8 % LAB HEMETOLOGY METHOD 11/16/2024 11:05 AM [facility] Neutrophils Absolute 2.06 1.50 - 7.00 K/mcL LAB HEMETOLOGY METHOD 11/16/2024 11:05 AM [facility] Lymphocytes Absolute 0.87(L) 1.00 - 5.00 K/mcL LAB HEMETOLOGY METHOD 11/16/2024 11:05 AM [facility] Monocytes Absolute 0.74 0.20 - 1.00 K/mcL LAB HEMETOLOGY METHOD 11/16/2024 11:05 AM [facility] Eosinophils Absolute 0.02 0.00 - 0.50 K/mcL LAB HEMETOLOGY METHOD 11/16/2024 11:05 AM [facility] Basophils Absolute 0.05 0.00 - 0.20 K/mcL LAB HEMETOLOGY METHOD 11/16/2024 11:05 AM [facility] Immature Granulocytes Absolute 0.03 0.00 - 0.03 K/mcL LAB HEMETOLOGY METHOD 11/16/2024 11:05 AM [facility] Blood Venous blood specimen / Unknown Venipuncture / Unknown 11/16/2024 5:44 AM EST 11/16/2024 10:20 AM EST us Gloria Preston MD LAB BLOOD ORDERABLES Final Resu lt [facility] [address] [place] [address], [place] [phone] * (ABNORMAL) Basic metabolic panel (11/16/2024 5:44 AM EST) Sodium 135 133 - 145 mmol/L LAB CHEMISTRY METHOD 11/16/2024 2:30 PM [facility] Potassium 4.1 3.5 - 5.5 mmol/L LAB CHEMISTRY METHOD 11/16/2024 2:30 PM [facility] Chloride 99 96 - 110 mmol/L LAB CHEMISTRY METHOD 11/16/2024 2:30 PM [facility] CO2 25 21 - 32 mmol/L LAB CHEMISTRY METHOD 11/16/2024 2:30 PM [facility] Anion Gap 11 3 - 11 LAB CHEMISTRY METHOD 11/16/2024 2:30 PM [facility] Glucose 79 70 - 100 mg/dL LAB CHEMISTRY METHOD 11/16/2024 2:30 PM [facility] BUN 18 5 - 25 mg/dL LAB CHEMISTRY METHOD 11/16/2024 2:30 PM [facility] Creatinine 0.64(L) 0.70 - 1.30 mg/dL LAB CHEMISTRY METHOD 11/16/2024 2:30 PM [facility] eGFR 93 >=60 mL/min/1. 73m2 LAB CHEMISTRY METHOD 11/16/2024 2:30 PM [facility] Comment:Calculation based on the Chronic Kidney Disease Epidemiology Collaboration (CKD-EPI) equation refit without adjustment for race. BUN/Creatinine Ratio 28.1 LAB CHEMISTRY METHOD 11/16/2024 2:30 PM [facility] Calcium 8.9 8.5 - 10.5 mg/dL LAB CHEMISTRY METHOD 11/16/2024 2:30 PM EST [facility] Blood Venous blood specimen / Unknown Venipuncture / Unknown 11/16/2024 5:44 AM EST 11/16/2024 10:20 AM EST Gloria Preston MD LAB BLOOD ORDERABLES Final Resu lt [facility] [address] [place] [address], documented in this encounter Visit Diagnoses Diagnosis Encounter for other general examination documented in this encounter Care Teams Log Yard Manager Relationship Specialty Start Date End Date Gloria Preston MD [address] [place] [address] PCP - General Hospitalist Medicine 11/05/24 documented as of this encounter
--- OUTSIDE RECORDS SUMMARY | 2025-08-17 20:55 | XMS_ITS | Patient Health Record ---
Author Organization [facility] Address [address] [place] [address] Care Team Providers Care Police Captain Senior Name Role Phone Robbie Kothari MD Primary Care Provider UnavailRobbie Koo Unavailable [phone] Reason For Referral No Information Medications Medication [...] Problem Screening for malignant neoplasm of colon (831928416) Encounter for screening for malignant neoplasm of colon (Z12.11) Active confirmed Problem History of adenomatous polyp of colon (984994516) Hx of adenomatous colonic polyps (Z86.010) Active confirmed Problem Pre-procedure evaluation check (513426890) Pre-procedural examination (Z01.818) Active confirmed Plan Of Treatment Future Test Test Name Order Date COLONOSCOPY 06/15/2018 Insurance Providers Payer Name Payer Address Payer Phone Subscriber Number Group Number Insured Name Patient Relationship to Insured Coverage Start Date Coverage End Date MEDICARE OF [place] [address] [place] [id number] VAZQUEZ ROCHA Self - patient is the insured PSYCHIATRIC Insurance C/O [facility] [address] [place] [address] [id number] [id number] ROCHA Self - patient is the insured Medical (General) History Medical History History ICD Code Denies CT,DM,CVA,Lung disease,renal dise ase Hyperlipidemia Colonoscopy 2002-small tubul ar adenoma removed; colonoscopy in 2008 was negative--just diverticulosis and internal hemorrhoids Surgical History Surgery Date(Month/Year) Left inguinal hernia Skin cancers with skin grafts
--- OUTSIDE RECORDS SUMMARY | 2025-08-17 20:55 | XMS_ITS | Encounter Summary ---
Author Organization [facility] Address [address] [place] [address] Care Team Providers Care Executive Staff Assistant Name Role Phone Gloria Preston MD Primary Care Provider [phone] Encounter Details Date Type Department Care Team (Late st Contact Info) Description 11/18/2024 Lab Requisition [facility] - Main Lab 299 [facility] [employer] [place] [address] Gloria Preston MD [address] [place] [address] Encounter for other general examination Social History [...] LAB HEMETOLOGY METHOD 11/18/2024 4:02 PM EST [facility] Blood Venous blood specimen / Unknown Venipuncture / Unknown 11/18/2024 2:59 PM EST 11/18/2024 3:36 PM EST us Gloria Preston MD LAB BLOOD ORDERABLES Final Resu lt Performing Organization Address [facility]/ZIP Co de Phone Number [facility] [address] [place] [address], [place] [phone] * Prolactin (11/18/2024 2:59 PM EST) Pathologist [facility] Prolactin 12.10 2.50 - 17.40 ng/mL LAB CHEMISTRY METHOD 11/18/2024 7:21 PM EST [facility] Blood Venous blood specimen / Unknown Venipuncture / Unknown 11/18/2024 2:59 PM EST 11/18/2024 3:36 PM EST us Gloria Preston MD LAB BLOOD ORDERABLES Final Resu lt Performing Organization Address [facility]/ZIP Co de Phone Number [facility] [address] [place] [address], [place] [phone] * (ABNORMAL) Magnesium (11/18/2024 2:59 PM EST) [facility] Magnesium 1.6(L) 1.9 - 2.6 mg/dL LAB CHEMISTRY METHOD 11/18/2024 7:07 PM EST [facility] Blood Venous blood specimen / Unknown Venipuncture / Unknown 11/18/2024 2:59 PM EST 11/18/2024 3:36 PM EST us Gloria Preston MD LAB BLOOD ORDERABLES Final Resu lt Performing Organization Address City/[facility]/ZIP Co de Phone Number [facility] [address] [place] [address], [place] [phone] * (ABNORMAL) Comprehensive metabolic panel (11/18/2024 2:59 [...] LAB CHEMISTRY METHOD 11/18/2024 7:21 PM EST [facility] Alkaline Phosphatase 89 42 - 121 unit/L LAB CHEMISTRY METHOD 11/18/2024 7:21 PM EST [facility] Total Protein 6.5 6.0 - [...] MD LAB BLOOD ORDERABLES Final Resu lt [facility] [address] [place] [address], [place] [phone] documented in this encounter Visit Diagnoses Diagnosis Encounter for other general examination documented in this encounter Care Teams Executive Staff Assistant Relationship Specialty Start Date End Date Gloria Preston MD [address] [place] [address] PCP - General Hospitalist Medicine 11/05/24 documented as of this encounter
--- OUTSIDE RECORDS SUMMARY | 2025-08-17 20:55 | XMS_ITS | Patient Health Record ---
[facility] jarett [place] Address [address] [place] [address] Care Team Providers Care Riveting Machine Operator Automatic Name Role Phone Robbie Kothari MD Primary Care Provider Ana Rosales Unavailable [phone] Allergies Allergen (clinical drug ingredient) Drug/Non Drug [...] atherosclerosis of arteries of lower limbs (disorder) ([id number] ) Atherosclerosis of [place] artery of both lower extremities, with unspecified presence of clinical manifestation (I70.203) Active confirmed Q7(A), Q8(2B), Q9(1B,2 C) Vital Signs Blood pressure diastolic 60 mm Hg 07/04/2025 Height 6 ft 4 in in 07/04/2025 Blood pressure systolic 116 mm Hg 07/04/2025 Weight 150 lbs 07/04/2025 BMI 18.26 kg/m2 07/04/2025 Encounters Encounter Location Date Provider Diagnosis [address] [address] 09/27/2024 Ana Perica Tinea unguium B35.1 ; Pain in right toe(s) M79.674 and Pain in left toe(s) M79.[address] [address] 12/27/2024 Ana Perica Tinea unguium B35.1 ; Pain in right toe(s) M79.674 and Pain in left toe(s) M79.[address] [address] 03/28/2025 Ana Perica Atherosclerosis of [place] artery of both lower extremities, with unspecified presence of clinical manifestation I70.203 ; Tinea unguium B35.1 ; Pain in right toe(s) M79.674 and Pain in left toe(s) M79.[address] [address] 07/04/2025 Ana Perica Atherosclerosis of [place] artery of both lower extremities, with unspecified presence of clinical manifestation I70.203 ; Tinea unguium B35.1 ; Pain in right toe(s) M79.674 and Pain in left toe(s) M79.675 Assessments Encounter Date Diagnosis (ICD Code) Assessment Notes Treatment Notes Treatment Clinical Notes Section Notes 09/27/2024 Tinea unguium (ICD-10 - B35.1) 12/27/2024 Tinea unguium (ICD-10 - B35.1) 03/28/2025 Atherosclerosis of [place] artery of both lower extremities, with unspecified presence of clinical manifestation (ICD-10 - I70.203) Q7(A), Q8(2B), Q9(1B,2C) 07/04/2025 Atherosclerosis of [place] artery of both lower extremities, with unspecified [...] Provider Name:Ana garduno, 10/11/2025 09:30:00 AM, [address] [facility], [place], [address], Insurance Providers Payer Name Payer Address Payer Phone Subscriber Number Group Number Insured Name Patient Relationship to Insured Coverage Start Date Coverage End Date [facility] Medicare-[id number] [address] [place] [address] [id number] Freeman King Self - patient is the insured Medical (General) History Medical History History ICD Code Measles Mumps Chicken pox Stroke Surgical History Surgery Date(Month/Year) hernia colonoscopy Hospitalization History Reason Date(Month/Year) [facility]- Stroke 10/2024
--- OUTSIDE RECORDS SUMMARY | 2025-08-17 20:55 | XMS_ITS | Encounter Summary ---
Author Organization [facility] Address [address] [place] [address] Care Team Providers Care Assembler 1St Shift Name Role Phone Gloria Preston MD Primary Care Provider Encounter Details Date Type Department Care Team (Late st Contact Info) Description 11/14/2024 Lab Requisition [facility] - Main Lab [address] [facility] [employer] [place] [address] Gloria Preston MD [address] [place] [id number] Encounter for other general examination Social History [...] AM EST) WBC 4.3(L) 4.8 - 10.8 K/[facility] LAB HEMETOLOGY METHOD 11/14/2024 10:05 AM [facility] RBC 4.00(L) 4.50 - 5.50 M/mcL LAB HEMETOLOGY METHOD 11/14/2024 10:05 AM [facility] Hemoglobin 13.0(L) 13.5 - 17.5 g/dL LAB HEMETOLOGY METHOD 11/14/2024 10:05 AM [facility] Hematocrit 37.6(L) 42.0 - 54.0 % LAB HEMETOLOGY METHOD 11/14/2024 10:05 AM [facility] MCV 93.5 79.0 - 98.0 FL LAB HEMETOLOGY METHOD 11/14/2024 10:05 AM [facility] MCH 32.3(H) 27.0 - 32.0 pcg LAB HEMETOLOGY METHOD 11/14/2024 10:05 AM [facility] MCHC 34.6 32.0 - 37.0 g/dL LAB HEMETOLOGY METHOD 11/14/2024 10:05 AM [facility] RDW 12.4 11.0 - 15.0 % LAB HEMETOLOGY METHOD 11/14/2024 10:05 AM [facility] Platelets 368 130 - 400 K/mcL LAB HEMETOLOGY METHOD 11/14/2024 10:05 AM [facility] MPV 9.7 7.0 - 11.0 FL LAB HEMETOLOGY METHOD 11/14/2024 10:05 AM [facility] NRBC 0.0 <1.0 % LAB HEMETOLOGY METHOD 11/14/2024 10:05 AM [facility] NRBC Absolute 0.00 <0.10 K/mcL LAB HEMETOLOGY METHOD 11/14/2024 10:05 AM [facility] Neutrophils Relative 76.1 % LAB HEMETOLOGY METHOD 11/14/2024 10:05 AM [facility] Lymphocytes Relative 10.3 % LAB HEMETOLOGY METHOD 11/14/2024 10:05 AM [facility] Monocytes Relative 11.0 % LAB HEMETOLOGY METHOD 11/14/2024 10:05 AM [facility] Eosinophils Relative 1.2 % LAB HEMETOLOGY METHOD 11/14/2024 10:05 AM [facility] Basophils Relative 0.9 % LAB HEMETOLOGY METHOD 11/14/2024 10:05 AM [facility] Immature Granulocytes Relative 0.5 % LAB HEMETOLOGY METHOD 11/14/2024 10:05 AM [facility] Neutrophils Absolute 3.26 1.50 - 7.00 K/mcL LAB HEMETOLOGY METHOD 11/14/2024 10:05 AM [facility] Lymphocytes Absolute 0.44(L) 1.00 - 5.00 K/mcL LAB HEMETOLOGY METHOD 11/14/2024 10:05 AM [facility] Monocytes Absolute 0.47 0.20 - 1.00 K/mcL LAB HEMETOLOGY METHOD 11/14/2024 10:05 AM [facility] Eosinophils Absolute 0.05 0.00 - 0.50 K/mcL LAB HEMETOLOGY METHOD 11/14/2024 10:05 AM [facility] Basophils Absolute 0.04 0.00 - 0.20 K/mcL LAB HEMETOLOGY METHOD 11/14/2024 10:05 AM [facility] Immature Granulocytes Absolute 0.02 0.00 - 0.03 K/mcL LAB HEMETOLOGY METHOD 11/14/2024 10:05 AM [facility] Blood Venous blood specimen / Unknown Venipuncture / Unknown 11/14/2024 6:36 AM EST 11/14/2024 8:21 AM EST us Gloria Preston MD LAB BLOOD ORDERABLES Final Resu lt [facility] [address] [place] [address], [place] [phone] * (ABNORMAL) Basic metabolic panel (11/14/2024 6:36 AM EST) Sodium 135 133 - 145 mmol/L LAB CHEMISTRY METHOD 11/14/2024 10:43 AM [facility] Potassium 4.0 3.5 - 5.5 mmol/L LAB CHEMISTRY METHOD 11/14/2024 10:43 AM [facility] Chloride 101 96 - 110 mmol/L LAB CHEMISTRY METHOD 11/14/2024 10:43 AM [facility] CO2 24 21 - 32 mmol/L LAB CHEMISTRY METHOD 11/14/2024 10:43 AM [facility] Anion Gap 10 3 - 11 LAB CHEMISTRY METHOD 11/14/2024 10:43 AM [facility] Glucose 86 70 - 100 mg/dL LAB CHEMISTRY METHOD 11/14/2024 10:43 AM [facility] BUN 22 5 - 25 mg/dL LAB CHEMISTRY METHOD 11/14/2024 10:43 AM [facility] Creatinine 0.59(L) 0.70 - 1.30 mg/dL LAB CHEMISTRY METHOD 11/14/2024 10:43 AM [facility] eGFR 96 >=60 mL/min/1. 73m2 LAB CHEMISTRY METHOD 11/14/2024 10:43 AM [facility] Comment:Calculation based on the Chronic Kidney Disease Epidemiology Collaboration (CKD-EPI) equation refit without adjustment for race. BUN/Creatinine Ratio 37.3 LAB CHEMISTRY METHOD 11/14/2024 10:43 AM [facility] Calcium 9.0 8.5 - 10.5 mg/dL LAB CHEMISTRY METHOD 11/14/2024 10:43 AM EST [facility] Blood Venous blood specimen / Unknown Venipuncture / Unknown 11/14/2024 6:36 AM EST 11/14/2024 8:21 AM EST Gloria Preston MD LAB BLOOD ORDERABLES Final Resu lt [facility] [address] [place] [address], documented in this encounter Visit Diagnoses Diagnosis Encounter for other general examination documented in this encounter Care Teams Assembler 1St Shift Relationship Specialty Start Date End Date Gloria Preston MD [address] [place] [phone] PCP - General Hospitalist Medicine 11/05/24 documented as of this encounter
--- OUTSIDE RECORDS SUMMARY | 2025-08-17 20:57 | XMS_ITS | Patient Health Record ---
Author Organization Robbie Kothari III, MD Address [address] [place] [address] Care Team Providers Care Python Architect Name Role Phone Dr. Robbie Kothari III Primary Care Provider Allergies Allergen (clinical drug ingredient) Drug/Non Drug Allergy documented on EMR Reaction Allergy Type Onset Date Status No Known Drug Allergy Unknown Drug Allergy Active No Known Food Allergy Unknown Drug Allergy Active Results Component Value Reference Range Notes Hold Lt Blue - Possible Coag Reviewed date:10/30/2024 09:55:19 AM Interpretation: Performing Lab:[facility] [place], [address] [place] [phone] Notes/Report: Hold Lt Blue - Possible Coag SEE NOTE Specimen will be held untested for 4 hours. Call Hematology if testing is desired. Comprehensive Met. Panel Reviewed date:10/30/2024 09:55:19 AM Interpretation: Performing Lab:[facility] [place], [address] [place] [phone] Notes/Report: Sodium 131 135-145 mmol/L Potassium 4.2 [...] Magnesium Reviewed date:10/30/2024 09:55:19 AM Interpretation: Performing Lab:[address] [address] Notes/Report: Magnesium 1.5 1.6-2.6 mg/dL Troponin-I High Sensitivity Reviewed date:10/30/2024 09:55:19 AM Interpretation: Performing Lab:[facility] [place], [address] [place] [phone] Notes/Report: Troponin-I High Sensitivity 3.1 <3.5-35.0 ng/L The [facility]an high sensitivity Troponin-I results should be used in conjunction with other diagnostic information such as ECG, clinical observations and information, and patient symptoms to aid in the diagnosis of [place]. SARS-CoV2/FLU/RSV Reviewed date:10/30/2024 09:55:19 AM Interpretation: Performing Lab:[address] [address] Notes/Report: Influenza A PCR NEGATIVE Negative Influenza [...] by authorized laboratories. Testing performed on the Yodo1 GeneXpert utilizing real-time RT-PCR. All SARS CoV2 and positive influenza A/B results are reported to [facility]. CT head for stroke Reviewed date:10/30/2024 09:55:19 AM Interpretation: Performing Lab: Notes/Report: [address] [address] [address] Scan Report Signed Patient: Freeman King MR#: [id number] [birth year] : 1940 Acct:[id number] Age/Sex: 84 / M ADM Date: 10/27/24 Loc: HO.ED Attending Dr: Ordering Physician: Alejandrina Mazariegos Date of Service: 10/27/24 Procedure(s): CT head for STROKE Accession Number(s): [id number] cc: Robbie Kothari MD; Alejandrina Mazariegos Report Number: [id number]: Total DLP = 799.00 mGy-cm EXAMINATION: CT [...] lobe. There is resultant mass effect and mgam-zp-qecgc midline shift of 3 mm. There is [...] atrium. 3. There is 3 mm of iiol-er-tmtah midline shift. No impending herniation at this time. This critical result was discussed with Alejandrina Mazariegos at 12:11 PM, on 10/27/2024 via phone call. Electronically signed by: Zohaib Brown MD 10/27/2024 12:14 PM [facility] Dictated By: Zohaib Brown MD Signed By: <Electronically signed by Zohaib Brown MD in OV> 10/27/24 1214 DD/ 1148 TD/TT: 10/27/24 1156 Statistics Tutor: [place] [address] [address] Scan Report Signed Patient: Jeremiah King MR#: [id number] 30 : 1940 Acct:[id number] Age/Sex: 84 / M ADM Date: 10/27/24 Loc: HO.ED Attending Dr: Ordering Physician: Alejandrina Mazariegos Date of Service: 10/27/24 Procedure(s): CT hea d for STROKE Accession Number(s): [id number] cc: Robbie Kothari MD; Alejandrina Mazariegos Report [...] There is resultant m ass effect and xdim-mx-zjgtk midline shift of 3 mm. There is [...] atrium. 3. There is 3 mm of vxtk-bn-slkvd midline shift. No impending herniation at this time. This critical result was discussed with Alejandrina Mazariegos at 12:11 PM, on 10/27/2024 via phone call. Electronically gurpreet d by: Zohaib Brown MD 10/27/2024 12:14 PM [facility] Dictated By: Zohaib Brown MD Signed By: <Electronically signed by Zohaib Brown MD in OV> 10/27/24 1214 DD/ 1148 TD/TT: 10/27/24 1156 Statistics Tutor: CT cervical spine wo con Reviewed date:10/30/2024 09:55:19 AM Interpretation: Performing Lab: Notes/Report: [address] [address] [address] Scan Report Signed Patient: Freeman King MR#: [id number] [birth year] : 1940 Acct:[id number] Age/Sex: 84 / M ADM Date: 10/27/24 Loc: HO.ED Attending Dr: Ordering Physician: Alejandrina Mazariegos Date of Service: 10/27/24 Procedure(s): CT cervical spine wo IV con Accession Number(s): [id number] cc: Robbie Kothari MD; Alejandrina Mazariegos Report Number: [id number]: Total DLP = 376.00 mGy-cm EXAMINATION: CT [...] by: Zohaib Brown MD 10/27/2024 02:23 PM [facility] Dictated By: Zohaib Brown MD Signed By: <Electronically signed by Zohaib Brown MD in OV> 10/27/24 1423 DD/ 1212 TD/TT: 10/27/24 1334 Statistics Tutor: [place] [address] [address] Scan Report Signed Patient: Jeremiah King MR#: [id number] [birth year] : 1940 Acct:[id number] Age/Sex: 84 / M ADM Date: 10/27/24 Loc: .ED Attending Dr: Ordering Physician: Alejandrina Mazariegos Date of Service: 10/27/24 Procedure(s): CT cer vical spine wo IV con Accession Number(s): [id number] cc: Robbie Kothari MD; Alejandrina Mazariegos Report [...] by: Zohaib Brown MD 10/27/2024 02:23 PM [facility] Dictated By: Zohaib Brown MD Signed By: <Electronically signed by Zohaib Brown MD in OV> 10/27/24 1423 DD/ 1212 TD/TT: 10/27/24 1334 Statistics Tutor: XR chest 1V Reviewed date:10/30/2024 09:55:19 AM Interpretation: Performing Lab: Notes/Report: [address] [address] XRay Report Signed Patient: Freeman King MR#: [id number] 30 : 1940 Acct:[id number] Age/Sex: 84 / M ADM Date: 10/27/24 Loc: HO.ED Attending Dr: Ordering Physician: Alejandrina Mazariegos Date of Service: 10/27/24 Procedure(s): XR chest 1V Accession Number(s): [id number] cc: Robbie Kothari MD; Alejandrina Mazariegos EXAMINATION: [...] by: Zohaib Brown MD 10/27/2024 01:41 PM [facility] Dictated By: Zohaib Brown MD Signed By: <Electronically signed by Zohaib Brown MD in OV> 10/27/24 1341 DD/ 1127 TD/TT: 10/27/24 1328 Statistics Tutor: [address] [address] XRay Report Signed Patient: Jeremiah King MR#: [id number] 30 : 1940 Acct:[id number] Age/Sex: 84 / M ADM Date: 10/27/24 Loc: HO.ED Attending Dr: Ordering Physician: Alejandrina Mazariegos Date of Service: 10/27/24 Procedure(s): XR chest 1V Accession Number(s): [id number] cc: Robbie Kothari MD; Alejandrina Mazariegos EXAMINATION: [...] by: Zohaib Brown MD 10/27/2024 01:41 PM [facility] Dictated By: Zohaib Brown MD Signed By: <Electronically signed by Zohaib Brown MD in OV> 10/27/24 1341 DD/ 1127 TD/TT: 10/27/24 1328 Statistics Tutor: XR chest 2V Reviewed date:12/16/2024 03:30:40 PM Interpretation: Performing Lab: Notes/Report: [address] [address] XRay Report Signed Patient: Freeman King MR#: [id number] [birth year] : 1940 Acct:[id number] Age/Sex: 84 / M ADM Date: 12/02/24 Loc: HO.XRAY Attending : Robbie Kothari MD Ordering Physician: Denilson Minor MD Date of Service: 12/02/24 Procedure(s): XR chest 2V Accession Number(s): [id number] cc: Robbie Kothari MD; Denilson Minor MD [...] 12/02/24 1150 DD/ 1042 TD/TT: 12/02/24 1052 Statistics Tutor: [place] [address] XRay Report Signed Patient: Jeremiah King MR#: [id number] [birth year] : 1940 Acct:[id number] Age/Sex: 84 / M ADM Date: 12/02/24 Loc: JILLIAN Attending Dr: Robbie Kothari MD Ordering Physician: Denilson Minor MD Date of Service: 12/02/24 Procedure(s): XR chest 2V Accession Number(s): [id number] cc: Robbie Kothari MD; Denilson Minor MD [...] 12/02/24 1150 DD/ 1042 TD/TT: 12/02/24 1052 Statistics Tutor: Complete Blood Count Auto Di ff Reviewed date:12/16/2024 03:30:40 PM Interpretation: Performing Lab:[facility] [place], [address] [place] [address] Notes/Report: White Blood Count 5.2 4.8-10.8 X10*3/uL [...] Panel Reviewed date:12/16/2024 03:30:40 PM Interpretation: Performing Lab:[address] [address] Notes/Report: Sodium 136 135-145 mmol/L Potassium 3.9 [...] Magnesium Reviewed date:12/16/2024 03:30:40 PM Interpretation: Performing Lab:[facility] [place], [address] [place] [phone] Notes/Report: Magnesium 1.8 1.6-2.6 mg/dL XR chest 2V Reviewed date:12/16/2024 03:30:40 PM Interpretation: Performing Lab: Notes/Report: [address] [address] XRay Report Signed Patient: Freeman King MR#: [id number] [birth year] : 1940 Acct:[id number] Age/Sex: 84 / M ADM Date: 12/16/24 Loc: JILLIAN Attending Dr: Denilson Minor MD Ordering Physician: Denilson Minor MD Date of Service: 12/16/24 Procedure(s): XR chest 2V Accession Number(s): [id number] cc: Robbie Kothari MD; Denilson Minor MD [...] 12/16/24 1138 DD/ 1048 TD/TT: 12/16/24 1110 Statistics Tutor: [place] [address] XRay Report Signed Patient: Jeremiah King MR#: [id number] [birth year] : 1940 Acct:[id number] Age/Sex: 84 / M ADM Date: 12/16/24 Loc: .KIRTIAY Attending Dr: Denilson Minor MD Ordering Physician: Denilson Minor MD Date of Service: 12/16/24 Procedure(s): XR chest 2V Accession Number(s): [id number] cc: Robbie Kothari MD; Denilson Minor MD [...] 12/16/24 1138 DD/ 1048 TD/TT: 12/16/24 1110 Statistics Tutor: Complete Blood Count Auto Di ff Reviewed date:12/30/2024 08:37:25 PM Interpretation: Performing Lab:[facility] [place], [address] [place] [address] Notes/Report: White Blood Count 6.5 4.8-10.8 X10*3/uL [...] NRBC Abs Auto 0.000 0.0-0.012 X10*3/uL Comprehensive [place]. Panel Fa Reviewed date:12/30/2024 08:37:25 PM Interpretation: Performing Lab:[address] [address] Notes/Report: Sodium 135 135-145 mmol/L Potassium 4.2 [...] Panel Reviewed date:12/30/2024 08:37:25 PM Interpretation: Performing Lab:[facility] [place], [address] [place] [phone] Notes/Report: Triglycerides 84 <150 mg/dL Desirable Triglyceride: [...] Antigen Reviewed date:12/30/2024 08:37:25 PM Interpretation: Performing Lab:[facility] [place], [address] [place] [phone] Notes/Report: Prostate Specific Antigen 2.95 <0.05-4.0 ng/mL PSA methodology: Transcepta Alinity i Chemiluminescent Microparticle Immunoassay (CMIA) Complete Blood Count Auto Di ff Reviewed date:12/30/2024 08:37:25 PM Interpretation: Performing Lab:[facility] [place], [address] [place] [phone] Notes/Report: White Blood Count 9.1 4.8-10.8 X10*3/uL [...] te Reviewed date:12/30/2024 08:37:25 PM Interpretation: Performing Lab:[facility] [place], [address] [place] [phone] Notes/Report: Erythrocyte Sedimentation Rate 60 0-15 MM/HR Patients with polycythemia and many hemoglobin abnormalities may have depressed sed rates whereas patients with anemia may have elevated sed rates. Partial Thromboplastin Time Reviewed date:12/30/2024 08:37:25 PM Interpretation: Performing Lab:[facility] [place], [address] [place] [phone] Notes/Report: Partial Thromboplastin Time 33.0 26.0-36.8 SEC For information regarding the monitoring of direct thrombin inhibitors, please refer to Pharmacy. Comprehensive Met. Panel Reviewed date:12/30/2024 08:37:25 PM Interpretation: Performing Lab:[facility] [place], [address] [place] [phone] Notes/Report: Sodium 132 135-145 mmol/L Potassium 4.9 [...] Acid Reviewed date:12/30/2024 08:37:25 PM Interpretation: Performing Lab:[facility] [place], [address] [place] [phone] Notes/Report: Lactic Acid 1.0 0.5-2.0 mmol/L Uric Acid Reviewed date:12/30/2024 08:37:25 PM Interpretation: Performing Lab:[facility] [place], [address] [place] [phone] Notes/Report: Uric Acid 4.1 3.4-7.0 mg/dL Magnesium Reviewed date:12/30/2024 08:37:25 PM Interpretation: Performing Lab:[facility] [place], [address] [place] [phone] Notes/Report: Magnesium 1.7 1.6-2.6 mg/dL Troponin-I High Sensitivity Reviewed date:12/30/2024 08:37:25 PM Interpretation: Performing Lab:[facility] [place], [address] [place] [phone] Notes/Report: Troponin-I High Sensitivity 3.4 <3.5-35.0 ng/L The Duran high sensitivity Troponin-I results should be used in conjunction with other diagnostic information such as ECG, clinical observations and information, and patient symptoms to aid in the diagnosis of [place]. C Reactive Protein Reviewed date:12/30/2024 08:37:25 PM Interpretation: Performing Lab:[facility] [place], [address] [place] [phone] Notes/Report: C Reactive Protein 4.85 < or = 0.50 mg/dL B Type Natriuretic Peptide Reviewed date:12/30/2024 08:37:25 PM Interpretation: Performing Lab:[facility] [place], [address] [place] [phone] Notes/Report: B Type Natriuretic Peptide 82 <100 pg/mL Lipase Reviewed date:12/30/2024 08:37:25 PM Interpretation: Performing Lab:[facility] [place], [address] [place] [phone] Notes/Report: Lipase 43 8-78 U/L UA CC w/rflx Micro + Cult Reviewed date:12/30/2024 08:37:25 PM Interpretation: Performing Lab:[facility] [place], [address] [place] [phone] Notes/Report: Urine, Clean Catch Color Urine Yellow Appearance Urine Clear PH 7.5 5.0-9.0 Glucose Urine UA Negative Negative mg/dL Urine Blood Negative Negative Specific [place] - Urine >= 1.030 1.005-1.025 Urine Protein Negative Neg-Trace mg/dL Urine Ketones Negative Negative mg/dL Nitrite Urine Negative Negative Leukocyte Esterase Urine Negative Negative SARS-CoV2/FLU/RSV Reviewed date:12/30/2024 08:37:25 PM Interpretation: Performing Lab:[address] [address] Notes/Report: Influenza A PCR NEGATIVE Negative Influenza [...] by authorized laboratories. Testing performed on the Yodo1 GeneXpert utilizing real-time RT-PCR. All SARS CoV2 and positive influenza A/B results are reported to [facility]. Blood Culture (First) Reviewed date:01/14/2025 08:40:47 PM Interpretation: Performing Lab:[address] [address] Notes/Report: Blood Culture (First) No growth after 5 days. Blood Culture (Second) Reviewed date:01/14/2025 08:40:47 PM Interpretation: Performing Lab:[facility] [place], [address] [place] [phone] Notes/Report: Blood Culture (Second) No growth after [address] angio head neck Reviewed date:12/30/2024 08:37:25 PM Interpretation: Performing Lab: Notes/Report: [address] [address] [address] Scan Report Signed Patient: Freeman King MR#: [id number] [birth year] : 1940 Acct:[id number] Age/Sex: 84 / M ADM Date: 12/30/24 Loc: HO.ED Attending Dr: Ordering Physician: Rahul Zamora MD Date of Service: 12/30/24 Procedure(s): CT angio head neck Accession Number(s): [id number] cc: Robbie Kothari MD; Rahul Zamora MD Report Number: [id number]: Total DLP = 1652.00 mGy-cm EXAMINATION: CTA [...] intimal flap. Superior cerebellar arteries are patent. eap counselor: Right P1 segment: Hypoplastic/atretic. No focal stenosis. [...] 12/30/24 1225 DD/ 1133 TD/TT: 12/30/24 1155 Statistics Tutor: [address] [address] [address] Scan Report Signed Patient: Jeremiah King MR#: [id number] [birth year] : 1940 Acct:[id number] Age/Sex: 84 / M ADM Date: 12/30/24 Loc: HO.ED Attending Dr: Ordering Physician: Rahul Zamora MD Date of Service: 12/30/24 Procedure(s): CT ang io head neck Accession Number(s): [id number] cc: Robbie Kothari MD; Rahul Zamora MD [...] intimal flap. Superior cerebellar arteries are patent. eap counselor: Right P1 segment: Hypoplastic/atretic. No focal stenosis. [...] 12/30/24 1225 DD/ 1133 TD/TT: 12/30/24 1155 Statistics Tutor: XR wrist RT 2V Reviewed date:12/30/2024 08:37:25 PM Interpretation: Performing Lab: Notes/Report: [address] [address] XRay Report Signed Patient: Freeman King MR#: [id number] [birth year] : 1940 Acct:[id number] Age/Sex: 84 / M ADM Date: 12/30/24 Loc: HO.ED Attending Dr: Ordering Physician: Rahul Zamora MD Date of Service: 12/30/24 Procedure(s): XR wrist RT 2V Accession Number(s): [id number] cc: Robbie Kothari MD; Rahul Zamora MD [...] 12/30/24 1300 DD/ 1243 TD/TT: 12/30/24 1255 Statistics Tutor: [address] [place] [address] XRay Report Signed Patient: Jeremiah King MR#: [id number] [birth year] : 1940 Acct:[id number] Age/Sex: 84 / M ADM Date: 12/30/24 Loc: .ED Attending Dr: Ordering Physician: Rahul Zamora MD Date of Service: 12/30/24 Procedure(s): XR wri st RT 2V Accession Number(s): [id number] cc: Robbie Kothari MD; Rahul Zamora MD [...] 12/30/24 1300 DD/ 1243 TD/TT: 12/30/24 1255 Statistics Tutor: XR chest 1V Reviewed date:12/30/2024 08:37:25 PM Interpretation: Performing Lab: Notes/Report: [address] [address] XRay Report Signed Patient: Freeman King MR#: [id number] [birth year] : 1940 Acct:[id number] Age/Sex: 84 / M ADM Date: 12/30/24 Loc: .ED Attending Dr: Ordering Physician: Rahul Zamora MD Date of Service: 12/30/24 Procedure(s): XR chest 1V Accession Number(s): [id number] cc: Robbie Kothari MD; Rahul Zamora MD [...] 12/30/24 1210 DD/ 1031 TD/TT: 12/30/24 1149 Statistics Tutor: [place] [address] XRay Report Signed Patient: Jeremiah King MR#: [id number] [birth year] : 1940 Acct:[id number] Age/Sex: 84 / M ADM Date: 12/30/24 Loc: .ED Attending Dr: Ordering Physician: Rahul Zamora MD Date of Service: 12/30/24 Procedure(s): XR chest 1V Accession Number(s): [id number] cc: Robbie Kothari MD; Rahul Zamora MD [...] 12/30/24 1210 DD/ 1031 TD/TT: 12/30/24 1149 Statistics Tutor: XR hand RT min 3V Reviewed date:12/30/2024 08:37:25 PM Interpretation: Performing Lab: Notes/Report: [address] [address] XRay Report Signed Patient: Freeman King MR#: [id number] [birth year] : 1940 Acct:[id number] Age/Sex: 84 / M ADM Date: 12/30/24 Loc: .ED Attending Dr: Ordering Physician: Rahul Zamora MD Date of Service: 12/30/24 Procedure(s): XR hand RT min 3V Accession Number(s): [id number] cc: Robbie Kothari MD; Rahul Zamora MD [...] 12/30/24 1301 DD/ 1243 TD/TT: 12/30/24 1255 Statistics Tutor: [address] [address] XRay Report Signed Patient: Jeremiah King MR#: [id number] [birth year] : 1940 Acct:[id number] Age/Sex: 84 / M ADM Date: 12/30/24 Loc: HO.ED Attending Dr: Ordering Physician: Rahul Zamora MD Date of Service: 12/30/24 Procedure(s): XR camacho d RT min 3V Accession Number(s): [id number] cc: Robbie Kothari MD; Rahul Zamora MD [...] 12/30/24 1301 DD/ 1243 TD/TT: 12/30/24 1255 Statistics Tutor: Renae Coates Hematolo gy Reviewed date:01/01/2025 10:45:53 AM Interpretation: Performing Lab:[facility] [place], [address] [place] [phone] Notes/Report: Hold Lav - Possible Hematology SEE NOTE Specimen will be held untested for 8 hours. Call Hematology if testing is desired. Basic Metabolic Panel Reviewed date:01/01/2025 10:45:53 AM Interpretation: Performing Lab:[facility] [place], [address] [place] [phone] Notes/Report: Sodium 135 135-145 mmol/L Potassium 4.2 [...] ff Reviewed date:01/14/2025 08:40:47 PM Interpretation: Performing Lab:[facility] [place], [address] [place] [phone] Notes/Report: White Blood Count 7.5 4.8-10.8 X10*3/uL [...] Coag Reviewed date:01/14/2025 08:40:47 PM Interpretation: Performing Lab:[facility] [place], [address] [place] [phone] Notes/Report: Hold Lt Blue - Possible Coag SEE NOTE Specimen will be held untested for 4 hours. Call Hematology if testing is desired. Liver Panel Reviewed date:01/14/2025 08:40:47 PM Interpretation: Performing Lab:[facility] [place], [address] [place] [phone] Notes/Report: Bilirubin Total 1.0 0.0-1.0 mg/dL Bilirubin Direct 0.3 0.0-0.5 mg/dL Aspartate Amino Transferase 28 5-37 U/L Slight Hemolysis.Interpret result with caution. Alanine Aminotransferase 12 0-40 U/L Total Protein 7.4 6.5-8.0 g/dL Albumin Level 3.6 3.5-5.0 g/dL Alkaline Phosphatase 70 39-117 U/L Basic Metabolic Panel Reviewed date:01/14/2025 08:40:47 PM Interpretation: Performing Lab:[facility] [place], [address] [place] [phone] Notes/Report: Sodium 130 135-145 mmol/L Potassium 4.4 [...] Acid Reviewed date:01/14/2025 08:40:47 PM Interpretation: Performing Lab:[facility] [place], [address] [place] [address] Notes/Report: Lactic Acid 0.8 0.5-2.0 mmol/L Magnesium Reviewed date:01/14/2025 08:40:47 PM Interpretation: Performing Lab:[address] [address] Notes/Report: Magnesium 1.8 1.6-2.6 mg/dL Troponin-I High Sensitivity Reviewed date:01/14/2025 08:40:47 PM Interpretation: Performing Lab:[address] [address] Notes/Report: Troponin-I High Sensitivity 3.3 <3.5-35.0 ng/L The [facility]an high sensitivity Troponin-I results should be used in conjunction with other diagnostic information such as ECG, clinical observations and information, and patient symptoms to aid in the diagnosis of [place]. C Reactive Protein Reviewed date:01/14/2025 08:40:47 PM Interpretation: Performing Lab:[address] [address] Notes/Report: C Reactive Protein 13.61 < or = 0.50 mg/dL B Type Natriuretic Peptide Reviewed date:01/14/2025 08:40:47 PM Interpretation: Performing Lab:[facility] [place], [address] [place] [phone] Notes/Report: B Type Natriuretic Peptide 53 <100 pg/mL Procalcitonin Reviewed date:01/14/2025 08:40:47 PM Interpretation: Performing Lab:[facility] [place], [address] [place] [phone] Notes/Report: Procalcitonin 0.04 Procalcitonin (PCT) Reference Range: [...] results from different laboratories and methodologies. References: [place] [employer]/Society of Critical Care [...] 510(k) substantial equivalence determination decision summary for [facility]. http://www.accessda ta.fda.fov/cdrh_doc s/reviews/Q163623.p df. Published September 2004. Accessed February 2017. Gram stain Reviewed date:01/17/2025 05:36:47 AM Interpretation: Performing Lab:[facility] [place], [address] [place] [phone] Notes/Report: Gram stain Gram stain results: Gram stain 4+ polys Gram stain 1+ epithelial cells Gram stain 4+ red blood cells Gram stain 1+ Gram-positive cocci UA CC w/rflx Micro + Cult Reviewed date:01/14/2025 08:40:47 PM Interpretation: Performing Lab:[address] [address] Notes/Report: Urine, Catheterized Color Urine Yellow Appearance Urine Clear PH 6.0 5.0-9.0 Glucose Urine UA Negative Negative mg/dL Urine Blood Negative Negative Specific [place] - Urine 1.020 1.005-1.025 Urine Protein Negative Neg-Trace mg/dL Urine Ketones Negative Negative mg/dL Nitrite Urine Negative Negative Leukocyte Esterase Urine Negative Negative SARS-CoV2/FLU/RSV Reviewed date:01/14/2025 08:40:47 PM Interpretation: Performing Lab:[address] [address] Notes/Report: Influenza A PCR NEGATIVE Negative Influenza [...] by authorized laboratories. Testing performed on the Yodo1 GeneXpert utilizing real-time RT-PCR. All SARS CoV2 and positive influenza A/B results are reported to [facility]. Blood Culture (First) Reviewed date:02/12/2025 08:15:10 PM Interpretation: Performing Lab:[facility] [place], [address] [place] [phone] Notes/Report: Blood Culture (First) No growth after 5 days. Blood Culture (Second) Reviewed date:02/12/2025 08:15:10 PM Interpretation: Performing Lab:[address] [address] Notes/Report: Blood Culture (Second) No growth after 5 days. Sputum Culture Reviewed date:01/17/2025 05:36:47 AM Interpretation: Performing Lab:[facility] [place], [address] [place] [phone] Notes/Report: Sputum Culture BAP Sputum Culture 2+ Mixed respiratory ramon. CT chest wo con Reviewed date:01/14/2025 08:40:47 PM Interpretation: Performing Lab: Notes/Report: [address] [address] [address] Scan Report Signed Patient: Freeman King MR#: [id number] 30 : 1940 Acct:[id number] Age/Sex: 84 / M ADM Date: 01/13/25 Loc: .S3 358-[address]: Tommy Rodriguez MD Ordering Physician: Linette Brown Date of Service: 01/13/25 Procedure(s): CT chest wo IV con Accession Number(s): [id number] cc: Linette Brown; Robbie Kothari MD Report Number: [id number]: Total DLP = 336.00 mGy-cm CLINICAL HISTORY: [...] OV> 01/13/25 174 DD/ 45 TD/TT: 01/13/251745 Statistics Tutor: [address] [address] [address] Scan Report Signed Patient: Jeremiah King MR#: [id number] 30 : 1940 Acct:[id number] Age/Sex: 84 / M ADM Date: 01/13/25 Loc: HO.S3 358-[address]: Tommy Rodriguez MD Ordering Physician: Linette Brown Date of Service: 01/13/25 Procedure(s): CT y[address] st wo IV con Accession Number(s): [id number] cc: Linette Brown; Robbie Kothari MD Report [...] 01/13/25 1747 DD/ 1746 TD/TT: 01/13/25 174 Statistics Tutor: CT head/brain wo con Reviewed date:01/14/2025 08:40:47 PM Interpretation: Performing Lab: Notes/Report: [address] [address] [address] Scan Report Signed Patient: Freeman King MR#: [id number] [birth year] : 1940 Acct:[id number] Age/Sex: 84 / M ADM Date: 01/13/25 Loc: HO.ED Attending Dr: Ordering Physician: Taras Spencer MD Date of Service: 01/13/25 Procedure(s): CT head/brain wo IV con Accession Number(s): [id number] cc: Robbie Kothari MD; Taras Spencer MD Report Number: [id number]: Total DLP = 726.00 mGy-cm EXAMINATION: CT [...] 01/13/25 1235 DD/ 1215 TD/TT: 01/13/25 1226 Statistics Tutor: [address] [address] [address] Scan Report Signed Patient: Jeremiah King MR#: [id number] 30 : 1940 Acct:[id number] Age/Sex: 84 / M ADM Date: 01/13/25 Loc: HO.ED Attending Dr: Ordering Physician: Taras Spencer MD Date of Service: 01/13/25 Procedure(s): CT head/brain wo IV con Accession Number(s): [id number] cc: Robbie Kothari MD; Taras Spencer MD [...] 01/13/25 1235 DD/ 1215 TD/TT: 01/13/25 1226 Statistics Tutor: XR chest 1V Reviewed date:01/14/2025 08:40:47 PM Interpretation: Performing Lab: Notes/Report: [address] [address] XRay Report Signed Patient: Freeman King MR#: [id number] [birth year] : 1940 Acct:[id number] Age/Sex: 84 / M ADM Date: 01/13/25 Loc: HO.ED Attending Dr: Ordering Physician: Taras Spencer MD Date of Service: 01/13/25 Procedure(s): XR chest 1V Accession Number(s): [id number] cc: Robbie Kothari MD; Taras Spencer MD [...] 01/13/25 1228 DD/ 1222 TD/TT: 01/13/25 1222 Statistics Tutor: [address] [address] XRay Report Signed Patient: Jeremiah King MR#: [id number] 30 : 1940 Acct:[id number] Age/Sex: 84 / M ADM Date: 01/13/25 Loc: HO.ED Attending Dr: Ordering Physician: Taras Spencer MD Date of Service: 01/13/25 Procedure(s): XR chest 1V Accession Number(s): [id number] cc: Robbie Kothari MD; Taras Spencer MD [...] 01/13/25 1228 DD/ 1222 TD/TT: 01/13/25 1222 Statistics Tutor: Hold Lav - Possible Hematolo gy Reviewed date:01/14/2025 08:40:46 PM Interpretation: Performing Lab:[facility], [place], [address] [place] [address] Notes/Report: Hold Lav - Possible Hematology SEE NOTE Specimen will be held untested for 8 hours. Call Hematology if testing is desired. Basic Metabolic Panel Reviewed date:01/14/2025 08:40:47 PM Interpretation: Performing Lab:[facility] [place], [address] [place] [phone] Notes/Report: Sodium 130 135-145 mmol/L Potassium 4.0 [...] Urine Reviewed date:01/14/2025 08:40:47 PM Interpretation: Performing Lab:[address] [address] Notes/Report: Osmolality Urine 749 724-1298 mosm/kg Sodium Urine Random Reviewed date:01/14/2025 08:40:47 PM Interpretation: Performing Lab:[address] [address] Notes/Report: Sodium Urine Random 93.0 Vancomycin Random Reviewed date:01/14/2025 08:40:47 PM Interpretation: Performing Lab:[address] [address] Notes/Report: Vancomycin Random 9.3 15-20 mcg/mL Complete Blood Count Auto Di ff Reviewed date:01/15/2025 06:45:37 AM Interpretation: Performing Lab:[address] [address] Notes/Report: White Blood Count 5.0 4.8-10.8 X10*3/uL [...] Hematocrit Reviewed date:01/17/2025 05:36:47 AM Interpretation: Performing Lab:[address] [address] Notes/Report: Hemoglobin 11.9 14.0-18.0 g/dl Hematocrit 33.2 42.0-52.0 % Basic Metabolic Panel Reviewed date:01/15/2025 06:45:37 AM Interpretation: Performing Lab:[address] [address] Notes/Report: Sodium 135 135-145 mmol/L Potassium 3.8 [...] gy Reviewed date:01/17/2025 05:36:47 AM Interpretation: Performing Lab:[address] [address] Notes/Report: Hold Lav - Possible Hematology SEE NOTE Specimen will be held untested for 8 hours. Call Hematology if testing is desired. Creatinine Reviewed date:01/17/2025 05:36:47 AM Interpretation: Performing Lab:[address] [address] Notes/Report: Creatinine 0.77 0.5-1.4 mg/dL Creatinine Clr [...] ff Reviewed date:02/26/2025 07:54:27 AM Interpretation: Performing Lab:[address] [address] Notes/Report: White Blood Count 6.6 4.8-10.8 X10*3/uL [...] NRBC Abs Auto 0.000 0.0-0.012 X10*3/uL Comprehensive [place]. Panel Fa st Reviewed date:02/26/2025 07:54:27 AM Interpretation: Performing Lab:[facility] [place], [address] [place] [phone] Notes/Report: Sodium 135 135-145 mmol/L Potassium 4.3 [...] Panel Reviewed date:02/26/2025 07:54:27 AM Interpretation: Performing Lab:[facility] [place], [address] [place] [address] Notes/Report: Triglycerides 58 <150 mg/dL Desirable Triglyceride: [...] date:02/26/2025 07:54:27 AM Interpretation: Performing Lab: Notes/Report: [address] [address] XRay Report Signed Patient: Freeman King MR#: [id number] [birth year] : 1940 Acct:[id number] Age/Sex: 85 / M ADM Date: 02/23/25 Loc: HO.KIRTIAY Attending Dr: Denilson Minor MD Ordering Physician: Denilson Minor MD Date of Service: 02/23/25 Procedure(s): XR chest 2V Accession Number(s): [id number] cc: Robbie Kothari MD; Denilson Minor MD [...] in OV> 02/23/2553 DD/ 6 TD/TT: 02/23/25835 Statistics Tutor: [place] [address] XRay Report Signed Patient: Jeremiah King MR#: [id number] [birth year] : 1940 Acct:[id number] Age/Sex: 85 / M ADM Date: 02/23/25 Loc: HO.XRAY Attending Dr: Denilson Minor MD Ordering Physician: Denilson Minor MD Date of Service: 02/23/25 Procedure(s): XR chest 2V Accession Number(s): [id number] cc: Robbie Kothari MD; Denilson Minor MD [...] 02/23/2025 08:53 AM EDT RP Dictated By: Lzáaro Garcia MD Signed By: <Electronically signed by Lázaro Monique MD in OV> 02/23/25 0853 DD/ 6 TD/TT: 02/23/25 0836 Statistics Tutor: XR chest 2V Reviewed date:04/15/2025 07:11:05 PM Interpretation: Performing Lab: Notes/Report: [address] [address] XRay Report Signed Patient: Freeman King MR#: [id number] [birth year] : 1940 Acct:[id number] Age/Sex: 85 / M ADM Date: 04/12/25 Loc: JILLIAN Attending Dr: Denilson Minor MD Ordering Physician: Denilson Minor MD Date of Service: 04/12/25 Procedure(s): XR chest 2V Accession Number(s): [id number] cc: Robbie Kothari MD; Denilson Minor MD [...] 04/12/25 1430 DD/ 1411 TD/TT: 04/12/25 1426 Statistics Tutor: [address] [address] XRay Report Signed Patient: Jeremiah King MR#: [id number] [birth year] : 1940 Acct:[id number] Age/Sex: 85 / M ADM Date: 04/12/25 Loc: JILLIAN Attending Dr: Denilson iMnor MD Ordering Physician: Denilson Minor MD Date of Service: 04/12/25 Procedure(s): XR chest 2V Accession Number(s): [id number] cc: Robbie Kothari MD; Denilson Minor MD [...] 04/12/25 1430 DD/ 1411 TD/TT: 04/12/25 1426 Statistics Tutor: Complete Blood Count Auto Di ff Reviewed date:04/24/2025 03:36:17 PM Interpretation: Performing Lab:[facility] [place], [address] [place] [phone] Notes/Report: White Blood Count 6.0 4.8-10.8 X10*3/uL [...] te Reviewed date:04/24/2025 03:36:17 PM Interpretation: Performing Lab:[address] [address] Notes/Report: Erythrocyte Sedimentation Rate 21 0-15 MM/HR Patients with polycythemia and many hemoglobin abnormalities may have depressed sed rates whereas patients with anemia may have elevated sed rates. Liver Panel Reviewed date:04/24/2025 03:36:17 PM Interpretation: Performing Lab:[address] [address] Notes/Report: Bilirubin Total 0.8 0.0-1.0 mg/dL Bilirubin Direct 0.3 0.0-0.5 mg/dL Aspartate Amino Transferase 25 5-37 U/L Alanine Aminotransferase 13 0-40 U/L Total Protein 7.6 6.5-8.0 g/dL Albumin Level 4.2 3.5-5.0 g/dL Alkaline Phosphatase 84 39-117 U/L Basic Metabolic Panel Reviewed date:04/24/2025 03:36:17 PM Interpretation: Performing Lab:[address] [address] Notes/Report: Sodium 136 135-145 mmol/L Potassium 4.2 [...] date:04/24/2025 03:36:17 PM Interpretation: Performing Lab: Notes/Report: [address] [address] Ultrasound Report Signed Patient: Freeman King MR#: [id number] [birth year] : 1940 Acct:[id number] Age/Sex: 85 / M ADM Date: 04/24/25 Loc: HO.US Attending Dr: Irene MADRID Ordering Physician: Irene Fam Date of Service: 04/24/25 Procedure(s): US retroperitoneal comp Accession Number(s): [id number] cc: Robbie Kothari MD; Irene Fam EXAMINATION: [...] 04/24/25 1049 DD/ 1000 TD/TT: 04/24/25 1030 Statistics Tutor: [place] [address] Ultrasound Report Signed Patient: Jeremiah King MR#: [id number] [birth year] : 1940 Acct:[id number] Age/Sex: 85 / M ADM Date: 04/24/25 Loc: HO.US Attending Dr: Irene JEFFPROSEANNA Ordering Physician: Irene Fam Date of Service: 04/24/25 Procedure(s): US retroperitoneal comp Accession Number(s): [id number] cc: Robbie Kothari MD; Irene Fam EXAMINATION: [...] 04/24/25 1049 DD/ 1000 TD/TT: 04/24/25 1030 Statistics Tutor: XR chest 2V Reviewed date:05/29/2025 12:59:13 PM Interpretation: Performing Lab: Notes/Report: [address] [address] XRay Report Signed Patient: Freeman King MR#: [id number] [birth year] : 1940 Acct:[id number] Age/Sex: 85 / M ADM Date: 05/24/25 Loc: HO.XRAY Attending Dr: Denilson Minor MD Ordering Physician: Denilson Minor MD Date of Service: 05/24/25 Procedure(s): XR chest 2V Accession Number(s): [id number] cc: Robbie Kothari MD; Denilson Minor MD [...] MD Signed By: <Electronically signed by Lázaro oMnique MD in OV> 05/24/25 1206 DD/ 1125 TD/TT: 05/24/25 1132 Statistics Tutor: [place] [address] XRay Report Signed Patient: Jeremiah King MR#: [id number] [birth year] : 1940 Acct:[id number] Age/Sex: 85 / M ADM Date: 05/24/25 Loc: JILLIAN Attending Dr: Denilson Minor MD Ordering Physician: Denilson Minor MD Date of Service: 05/24/25 Procedure(s): XR chest 2V Accession Number(s): [id number] cc: Robbie Kothari MD; Denilson Minor MD [...] 05/24/25 1206 DD/ 1125 TD/TT: 05/24/25 1132 Statistics Tutor: Prostate Specific Antigen Reviewed date:07/25/2025 09:03:21 AM Interpretation: Performing Lab:[address] [address] Notes/Report: Prostate Specific Antigen 2.49 <0.05-4.0 ng/mL PSA methodology: Duran Alinity i Chemiluminescent Microparticle Immunoassay (CMIA) Blood Culture (First) (Not y et reviewed by provider) Interpretation: Performing Lab:[address] [address] Notes/Report: Blood Culture (First) No growth after 5 days. Blood Culture (Second) (Not yet reviewed by provider) Interpretation: Performing Lab:[address] [address] Notes/Report: Blood Culture (Second) No growth after 5 days. Complete Blood Count Auto Di ff Reviewed date:08/06/2025 07:03:15 AM Interpretation: Performing Lab:[address] [address] Notes/Report: White Blood Count 10.5 4.8-10.8 X10*3/uL [...] X10*3/uL NRBC Abs Auto 0.000 0.0-0.012 X10*3/uL Prothrombin Time INR Reviewed date:08/06/2025 07:03:15 AM Interpretation: Performing Lab:[facility] [place], [address] [place] [address] Notes/Report: Prothrombin Time 14.0 11.2-13.5 SEC INTERNATIONAL NORM RATIO 1.1 0.9-1.1 INTERNATIONAL NORMALIZED RATIO (INR) REFERENCE RANGES Reference Range For patients not on anticoagulant therapy: 0.9 - 1.1 INR ranges for oral anticoagulant therapy: For prevention and treatment of venous thrombosis and pulmonary embolism: 2.0 - 3.0 For acute myocardial infarction with aspirin therapy: 2.0 - 3.0 For acute myocardial infarction without aspirin therapy: 3.0 - 4.0 For patients with mechanical prosthetic heart valves: 2.5 - 3.5 Partial Thromboplastin Time Reviewed date:08/06/2025 07:03:16 AM Interpretation: Performing Lab:[facility] [place], [address] [place] [phone] Notes/Report: Partial Thromboplastin Time 35.0 26.7-34.1 SEC Comprehensive Met. Panel Reviewed date:08/06/2025 07:03:16 AM Interpretation: Performing Lab:[facility] [place], [address] [place] [phone] Notes/Report: Sodium 131 135-145 mmol/L Potassium 4.0 3.3-5.1 mmol/L Chloride 97 96-108 mmol/L Carbon Dioxide 26 22-29 mmol/L Anion Gap 12 12-20 Blood Urea Nitrogen 17 9-16 mg/dL Creatinine 0.88 0.5-1.4 mg/dL Creatinine Clr Calc Pharmacy 66.9 eGFR (calculated from the MDRD study equation) and eCrCl (calculated from the Cockcroft-Gault equation) are based on different parameters and may not yield comparable results. If eCrCl result is absurd, please check patient's height/weight. Estimated Glomerular Filt Rate > 60 Chronic Kidney Disease: Estimated GFR < 60 mL/min/1.73m2 Severe Kidney Disease: Estimated GFR < 15 mL/min/1.73m2 Glucose Random 82 60-115 mg/dL Calcium 9.4 8.4-10.2 mg/dL Bilirubin Total 0.8 0.0-1.0 mg/dL Aspartate Amino Transferase 24 5-37 U/L Alanine Aminotransferase 7 0-40 U/L Total Protein 7.7 6.5-8.0 g/dL Albumin Level 4.3 3.5-5.0 g/dL Alkaline Phosphatase 76 39-117 U/L Osmolality, Serum Reviewed date:08/06/2025 07:03:16 AM Interpretation: Performing Lab:[facility] [place], [address] [place] [phone] Notes/Report: Osmolality, Serum 274 281-305 mosm/kg Lactic Acid Reviewed date:08/06/2025 07:03:16 AM Interpretation: Performing Lab:[facility] [place], [address] [place] [address] Notes/Report: Lactic Acid 0.9 0.5-2.0 mmol/L Troponin-I High Sensitivity Reviewed date:08/06/2025 07:03:16 AM Interpretation: Performing Lab:[facility] [place], [address] [place] [phone] Notes/Report: Troponin-I High Sensitivity 6.2 <3.5-35.0 ng/L The Duran high sensitivity Troponin-I results should be used in conjunction with other diagnostic information such as ECG, clinical observations and information, and patient symptoms to aid in the diagnosis of [place]. Respiratory Panel Reviewed date:08/06/2025 08:29:12 PM Interpretation: Performing Lab:[facility] [place], [address] [place] [phone] Notes/Report: Adenovirus PCR Not Detected Not Detect. Bordetella pertussis PCR Not Detected Not Detect. Interpret results with caution. If B. pertussis is specifically suspected, additional testing using an alternate method is recommended. Bordetella parapertussis PCR Not Detected Not Detect. Chlamydia pneumoniae PCR Not Detected Not Detect. Coronavirus 229E PCR Not Detected Not Detect. Coronavirus HKU1 PCR Not Detected Not Detect. Coronavirus NL63 PCR Not Detected Not Detect. Coronavirus OC43 PCR Not Detected Not Detect. SARS-CoV-2 PCR Not Detected Not Detect. SARS-CoV-2 not detected by real-time RT-PCR. Note: If clinical suspicion for Sars-CoV-2 is high, continue to maintain precautions and consider repeat testing. Test results should be interpreted in the context of clinical findings and other laboratory data. Rare polymorphisms exist that could lead to false-negative or false-positive results. If results do not match the clinical findings, additional testing should be considered. Results reported to [facility]. This test has been authorized by the FDA under the Emergency Use Authorization (EUA) for use by authorized laboratories. Influenza A PCR Not Detected Not Detect. Influenza A H1 PCR Not Detected Not Detect. Influenza A H1-2009 PCR Not Detected Not Detect. Influenza A H3 PCR Not Detected Not Detect. Influenza B PCR Not Detected Not Detect. Human metapneumovirus PCR Not Detected Not Detect. Rhino/Enterovirus PCR Detected Not Detect. Mycoplasma pneumoniae PCR Not Detected Not Detect. Parainfluenza 1 PCR Not Detected Not Detect. Parainfluenza 2 PCR Not Detected Not Detect. Parainfluenza 3 PCR Not Detected Not Detect. Parainfluenza 4 PCR Not Detected Not Detect. RSV PCR Not Detected Not Detect. Resp Panel NA Note See Note All results must be correlated with clinical findings. Negative results should not be used as the sole basis for diagnosis, treatment, or other management decisions. A negative result does not exclude the possibility of viral or bacterial infection. Negative results may occur from the presence of sequence variants in the region targeted by the assay, the presence of inhibitors, an infection caused by an organism not detected by the panel, or lower respiratory tract infections that are not detected by a nasopharyngeal swab specimen. Test results may also be affected by concurrent antiviral/antibacte rial therapy or levels of organism in the specimen that are below the limit of detection for this test. This assay is performed by Multiplexed PCR, utilizing the Mpax Array. SARS-CoV2/FLU/RSV Reviewed date:08/06/2025 07:03:16 AM Interpretation: Performing Lab:[address] [address] Notes/Report: Influenza A PCR NEGATIVE Negative Influenza [...] by authorized laboratories. Testing performed on the Yodo1 GeneXpert utilizing real-time RT-PCR. All SARS CoV2 and positive influenza A/B results are reported to [facility]. NT Pro B Type Natriuretic Pe pt Reviewed date:08/06/2025 07:03:16 AM Interpretation: Performing Lab:[facility] [place], [address] [place] [phone] Notes/Report: NT Pro B Type Natriuretic Pept 356.6 <300 pg/mL Reference Range: Age Group (years) NT-proBNP (pg/ml) Interpretation All <300 Negative: HF unlikely For patients presenting to the ED with clinical suspicion of new onset or worsening HF, see below: 18 to <50 >299.9 to <450.0 Grayzone: Consider 50 to 75 >299.9 to <900.0 other causes of >75 >299.9 to <1800.0 NT-proBNP elevation 18 to <50 >449.9 Positive: HF likely 50-75 >899.9 >75 >1799.9 Note: Elevated NT-proBNP levels should be interpreted in the context of other clinical information. CT angio chest PE protocol Reviewed date:08/06/2025 07:03:16 AM Interpretation: Performing Lab: Notes/Report: [address] [address] [address] Scan Report Signed Patient: Freeman King MR#: [id number] [birth year] : 1940 Acct:[id number] Age/Sex: 85 / M ADM Date: 08/05/25 Loc: .ED Attending Dr: Ordering Physician: Rahul Zamora MD Date of Service: 08/05/25 Procedure(s): CT angio chest PE protocol Accession Number(s): [id number] cc: Robbie Kothari MD; Rahul Zamora MD Report Number: [id number]: Total DLP = 268.00 mGy-cm Reason for Exam: Cough, dyspnea on exertion, hemoptysis CLINICAL HISTORY: Cough, dyspnea on exertion, hemoptysis --- Additional Notes or Special Instructions: History of MAC, rule out PE, other causes for hemoptysis CT angiography chest with contrast. 3D Postprocessing. Comparison: CR - XR CHEST 2V - 08/05/25 13:05 EST , 01/13/2025 Findings: The heart size is normal. RV/LV ratio is normal. The thoracic aorta is normal caliber. No pulmonary artery filling defects. The visualized thyroid and mediastinum are unremarkable. There is increased multifocal ill-defined bilateral pulmonary nodular densities. Bilateral upper lobe scarring with traction bronchiectasis is present. Similar pattern of the distribution is noted compared to the prior CT chest. Nodular density of the bilateral lower lobes with tree-in-bud appearance. Multiple liver cysts and right renal cysts. No acute fractures. IMPRESSION: No pulmonary embolus in the visualized pulmonary artery. Similar pattern of chronic fibrotic change with traction bronchiectasis. Multiple area of persistent opacities of the bilateral lungs are concerning for infection. CT chest follow-up as clinically indicated. This document has been electronically signed by: Jarrod Shah MD on 08/05/2025 17:36:34 Dictated By: Jarrod Shah MD Signed By: <Electronically signed by Jarrod Shah MD in OV> 08/05/251736 DD/ 35 TD/TT: 08/05/251735 Statistics Tutor: [place] [address] CT Scan Report Signed Patient: Jeremiah King MR#: [id number] [birth year] : 1940 Acct:[id number] Age/Sex: 85 / M ADM Date: 08/05/25 Loc: HO.ED Attending Dr: Ordering Physician: Rahul Zamora MD Date of Service: 08/05/25 Procedure(s): CT ang io chest PE protocol Accession Number(s): [id number] cc: Robbie Kothari MD; Rahul Zamora MD Report Number: [id number]: Total DLP = 268.00 mGy-cm Reason for Exam: Cou gh, dyspnea on exertion, hemoptysis CLINICAL HISTORY: Co ugh, dyspnea on exertion, hemoptysis --- Additional Notes or Special Instructions: Histor y of MAC, rule out PE, other causes for hemoptysis CT angiography chest with contrast. 3D Postprocessing. Comparison: CR - XR CHEST 2V - 08/05/25 13:05 EST , 01/13/2025 Findings: The heart size is no rmal. RV/LV ratio is normal. The thoracic aorta i s normal caliber. No pulmonary artery filling defects. The visualized thyro id and mediastinum are unremarkable. There is increased multifocal ill-defined bilateral pulmonary nodular densities. Bilateral upper lobe scarring with traction bronchiectasis is present. Similar pat tern of the distribution is noted compared to the prior CT chest. Nodu lar density of the bilateral lower lobes with tree-in-bud appearance. Multiple liver cysts and right renal cysts. No acute fractures. IMPRESSION: No pulmonary embolus in the visualized pulmonary artery. Similar pattern of chronic fibrotic change with traction bronchiectasis. Multiple area of persistent opacities of the bilateral lungs are concerning for infec tion. CT chest follow-up as clinically indicated. This document has be en electronically signed by: Jarrod Shah MD on 08/05/2025 17:36:34 Dictated By: Tricia Shah MD Signed By: <Electronically signed by Jarrod Shah MD in OV> 08/05/25 1737 DD/ TD/TT: 08/05/251735 Statistics Tutor: XR chest 2V Reviewed date:08/06/2025 07:03:16 AM Interpretation: Performing Lab: Notes/Report: [address] [address] XRay Report Signed Patient: Freeman King MR#: [id number] [birth year] : 1940 Acct:[id number] Age/Sex: 85 / M ADM Date: 08/05/25 Loc: .ED Attending Dr: Ordering Physician: Chan Luque Date of Service: 08/05/25 Procedure(s): XR chest 2V Accession Number(s): [id number] cc: Robbie Kothari MD; Chan Luque Reason [...] by Jarrod Shah MD in OV> 08/05/25 1332 DD/ 1331 TD/TT: 08/05/25 1331 Statistics Tutor: [address] [place] [address] XRay Report Signed Patient: Jeremiah King MR#: [id number] [birth year] : 1940 Acct:[id number] Age/Sex: 85 / M ADM Date: 08/05/25 Loc: .ED Attending Dr: Ordering Physician: Chan Luque Date of Service: 08/05/25 Procedure(s): XR chest 2V Accession Number(s): [id number] cc: Robbie Kothari MD; Chan Luque Reason [...] by Jarrod Shah MD in OV> 08/05/25 1332 DD/ 1331 TD/TT: 08/05/251 Statistics Tutor: Troponin-I High Sensitivity Reviewed date:08/06/2025 07:03:15 AM Interpretation: Performing Lab:[facility] [place], [address] [place] [phone] Notes/Report: Troponin-I High Sensitivity 6.1 <3.5-35.0 ng/L The Duran high sensitivity Troponin-I results should be used in conjunction with other diagnostic information such as ECG, clinical observations and information, and patient symptoms to aid in the diagnosis of [place]. Complete Blood Count no Diff Reviewed date:08/06/2025 07:03:15 AM Interpretation: Performing Lab:[facility] [place], [address] [place] [phone] Notes/Report: White Blood Count 8.4 4.8-10.8 X10*3/uL Red Blood Count 4.16 4.60-5.80 X10*6/uL Hemoglobin 13.6 14.0-18.0 g/dl Hematocrit 37.5 42.0-52.0 % Mean Corpuscular Volume 90.1 80.0-98.0 fL Mean Corpuscular Hemoglobin 32.7 27.0-33.0 pg Mean Corpuscular HGB Conc 36.3 31.0-36.0 g/dl Red Cell Distribution Width 12.5 11.0-16.0 % Platelet Count 196 160-400 X10*3/uL Mean Platelet Volume 9.6 9.4-12.4 fL NRBC Pct Auto 0.0 0.0-0.2 /100WBC NRBC Abs Auto 0.000 0.0-0.012 X10*3/uL Comprehensive Met. Panel Reviewed date:08/06/2025 07:03:15 AM Interpretation: Performing Lab:[facility] [place], [address] [place] [phone] Notes/Report: Sodium 129 135-145 mmol/L Potassium 4.0 3.3-5.1 mmol/L Chloride 98 96-108 mmol/L Carbon Dioxide 21 22-29 mmol/L Anion Gap 14 12-20 Blood Urea Nitrogen 14 9-16 mg/dL Creatinine 0.69 0.5-1.4 mg/dL Creatinine Clr Calc Pharmacy 69.7 eGFR (calculated from the MDRD study equation) and eCrCl (calculated from the Cockcroft-Gault equation) are based on different parameters and may not yield comparable results. If eCrCl result is absurd, please check patient's height/weight. Estimated Glomerular Filt Rate > 60 Chronic Kidney Disease: Estimated GFR < 60 mL/min/1.73m2 Severe Kidney Disease: Estimated GFR < 15 mL/min/1.73m2 Glucose Random 100 60-115 mg/dL Calcium 8.9 8.4-10.2 mg/dL Bilirubin Total 0.7 0.0-1.0 mg/dL Aspartate Amino Transferase 21 5-37 U/L Alanine Aminotransferase 7 0-40 U/L Total Protein 6.9 6.5-8.0 g/dL Albumin Level 3.8 3.5-5.0 g/dL Alkaline Phosphatase 71 39-117 U/L Uric Acid Reviewed date:08/06/2025 08:29:12 PM Interpretation: Performing Lab:[facility], [place], [address] [place] [phone] Notes/Report: Uric Acid 4.1 3.4-7.0 mg/dL Magnesium Reviewed date:08/06/2025 07:03:15 AM Interpretation: Performing Lab:[facility] [place], [address] [place] [phone] Notes/Report: Magnesium 1.6 1.6-2.6 mg/dL Osmolality Urine Reviewed date:08/06/2025 07:03:15 AM Interpretation: Performing Lab:[facility] [place], [address] [place] [phone] Notes/Report: Osmolality Urine 634 042-1496 mosm/kg Sodium Urine Random Reviewed date:08/06/2025 07:03:15 AM Interpretation: Performing Lab:[facility] [place], [address] [place] [phone] Notes/Report: Sodium Urine Random 111.0 Complete Blood Count no Diff Reviewed date:08/07/2025 12:39:25 PM Interpretation: Performing Lab:[facility], [place], [address] [place] [phone] Notes/Report: Pt Refused. Jovani 0543 [id number] White Blood Count 6.2 4.8-10.8 X10*3/uL Red Blood Count 4.21 4.60-5.80 X10*6/uL Hemoglobin 13.8 14.0-18.0 g/dl Hematocrit 38.5 42.0-52.0 % Mean Corpuscular Volume 91.4 80.0-98.0 fL Mean Corpuscular Hemoglobin 32.8 27.0-33.0 pg Mean Corpuscular HGB Conc 35.8 31.0-36.0 g/dl Red Cell Distribution Width 12.3 11.0-16.0 % Platelet Count 207 160-400 X10*3/uL Mean Platelet Volume 9.8 9.4-12.4 fL NRBC Pct Auto 0.0 0.0-0.2 /100WBC NRBC Abs Auto 0.000 0.0-0.012 X10*3/uL Comprehensive Met. Panel Reviewed date:08/07/2025 12:39:25 PM Interpretation: Performing Lab:[facility], [place], [address] [place] [phone] Notes/Report: Pt Refused. Jovani 0543 [id number] Sodium 129 135-145 mmol/L Potassium 4.2 3.3-5.1 mmol/L Slight Hemolysis.Interpret result with caution. Chloride 98 96-108 mmol/L Carbon Dioxide 22 22-29 mmol/L Anion Gap 13 12-20 Blood Urea Nitrogen 14 9-16 mg/dL Creatinine 0.78 0.5-1.4 mg/dL Creatinine Clr Calc Pharmacy 61.6 eGFR (calculated from the MDRD study equation) and eCrCl (calculated from the Cockcroft-Gault equation) are based on different parameters and may not yield comparable results. If eCrCl result is absurd, please check patient's height/weight. Estimated Glomerular Filt Rate > 60 Chronic Kidney Disease: Estimated GFR < 60 mL/min/1.73m2 Severe Kidney Disease: Estimated GFR < 15 mL/min/1.73m2 Glucose Random 136 60-115 mg/dL Calcium 8.9 8.4-10.2 mg/dL Bilirubin Total 0.6 0.0-1.0 mg/dL Aspartate Amino Transferase 28 5-37 U/L Slight Hemolysis.Interpret result with caution. Alanine Aminotransferase 6 0-40 U/L Total Protein 7.1 6.5-8.0 g/dL Albumin Level 3.8 3.5-5.0 g/dL Alkaline Phosphatase 75 39-117 U/L Magnesium Reviewed date:08/07/2025 12:39:25 PM Interpretation: Performing Lab:[facility], [place], [address] [place] [phone] Notes/Report: Pt Refused. Jovani 0543 [id number] Magnesium 1.8 1.6-2.6 mg/dL Reason For Referral Reason Urgent Referral Requ est Evaluate and Treat ? Catheter Can not tolerate tamsulosin Diagnosis 1 Benign prostatic hyp erplasia with lower urinary tract symptoms (N40.1) Diagnosis 2 Nocturia (R35.1) Referral Organization Robbie Kothari III, MD Referring Provider First Name Robbie Referring Provider Last Name Saniya Referring Provider Speciality Internal M edicine Referred Provider [facility], Urology Referred Provider Specialty Urology [...] Referring Provider Speciality Internal edicine Referred Organization [facility] nt Referred Provider [facility], Core Physical Therapy Referred Address [address] [place] [address],[place], [id number], Referred Provider Specialty Physical The rapist General Notes Sarika Villegas 03/09/2025 02:30:36 PM > referral and progress note faxed. 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 Problem Hyperlipidemia (85248204) Hyperlipidemia (E78.5) Active confirmed His lipids have been stable. Change in his regimen was necessary today. Problem 04385286 Hyponatremia (E87.1) Active confirmed His sodium is n ow 136 and this problem has resolved. Problem 779616563 Underweight (R63.6) Active confirmed His appetite barrera s improved. His body mass index is now 20 which is in the normal range. His weight will be monitored carefully. Problem 36809319 Mycobacterial infection, unspecified (A31.9) Active confirmed He says he did not tolerate the inhaled amikacin. I have referred him back to pulmonary to discuss this further. His pulmonary infection seems controlled today but now resolved. Problem 290078889 Adenoma of ascending colon (D12.2) Active confirmed He will call he r gastroenterologis t to see if additional colonoscopies will be recommended. Problem 53259969 Abdominal hernia without obstruction and without gangrene, recurrence not specified, unspecified hernia type (K46.9) Active confirmed The hernia is n ow asymptomatic and will be observed without treatment. Problem Seizure (77818923) Seizures (R56.9) Active confirmed Just before discharge from an [facility] he was begun on Keppra for periods of unresponsiveness. A repeat CT scan November 18, 2024 showed improvement in the hemorrhage and edema. The Her will be discontinued until the electroencephalog jackie is done. We have requested a repeat visit from [facility] neurology. Problem 3128050166093 Benign prostatic hyperplasia with lower urinary tract symptoms (N40.1) Active confirmed He has seen urology and then given tamsulosin and finasteride. He has stopped the finasteride because of handshaking. I recommended he discuss this with urology and continue the tamsulosin. His nocturia has improved. Problem 39666326 Sleep apnea in adult (G47.30) Active confirmed He is using t he new CPAP machine without difficulty and is pleased with the results. 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 Problem 810731661 Acute viral syndrome (B34.9) Active confirmed His abrupt weakness was caused by a viral syndrome. His respiratory panel showed rhino/enterovirus .He has now completely recovered. Problem 08331775 Atrial arrhythmia (I49.8) Active confirmed He was in a normal sinus rhythm today with no abnormalities. He has had no episodes of tachycardia, syncope or palpitations. 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 Problem 724885008714213 Acute gout of left hand, unspecified cause (M10.9) Active confirmed This was a clinical diagnosis and he is being treated with prednisone. It occurred within the last 48 hours. The left wrist is painful red and swollen. Vital Signs Heart Rate 61 /min 08/14/2025 Temperature 97.2 degrees Fahrenheit 08/14/2025 Respiratory Rate 16 /min 07/17/2025 Oximetry 92 % 07/17/2025 Blood pressure diastolic 65 mm Hg 08/14/2025 Height 76 in 08/14/2025 Blood pressure systolic 128 mm Hg 08/14/2025 Weight 171 lbs 08/14/2025 BMI 20.81 kg/m2 08/14/2025 Encounters Encounter Location Date Provider Diagnosis Robbie Kothari III, MD [address] [place] [address] [place] [phone] 11/21/2024 Robbie Kothari Hyperlipidemia E78.5 ; Nontraumatic [...] adult G47.30 Robbie Kothari III, MD [address] [place] [address] [place] [address] 12/02/2024 Robbie Kothari Hyperlipidemia E78.5 ; 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 ; Pneumonia J18.9 ; Former smoker Z87.891 ; Mycobacterial infection, unspecified A31.9 ; Sleep apnea in adult G47.30 and Benign prostatic hyperplasia with lower urinary tract symptoms N40.1 Robbie Kothari III, MD [address] [place] [address] [place] [address] 12/19/2024 Robbie Kothari Hyperlipidemia E78.5 ; 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 ; Pneumonia J18.9 ; Underweight R63.6 ; Seizures R56.9 ; Former smoker Z87.891 ; Mycobacterial infection, unspecified A31.9 ; Sleep apnea in adult G47.30 and Benign prostatic hyperplasia with lower urinary tract symptoms N40.1 Robbie Kothari III, MD [address] [place] [address] [place] [address] 01/04/2025 Robbie Kothari Orthostatic hypotens ion I95.1 ; Former smoker Z87.891 ; Atrial arrhythmia I49.8 ; Hyperlipidemia E78.5 ; Rosacea L71.9 ; Benign prostatic hyperplasia with lower urinary tract symptoms N40.1 ; 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 ; Underweight R63.6 and Pneumonia J18.9 Robbie Kothari III, MD [address] [place] [address] [place] [address] 01/13/2025 Robbie Kothari Generalized weakness R53.1 ; Hyperlipidemia E78.5 ; Former smoker Z87.891 ; Hypertrophy of prostate without urinary obstruction and other lower urinary tract symptoms (LUTS) N40.0 ; Mycobacterial infection, unspecified A31.9 ; Underweight R63.6 ; 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 ; Orthostatic hypotension I95.1 and Pneumonia J18.9 Robbie Kothari III, MD [address] [place] [address] [place] [address] 01/27/2025 Robbie Kothari Former smoker Z87.89 1 [...] weakness R53.1 Robbie Kothari III, MD [address] [place] [address] [place] [address] 02/24/2025 Robbie Kothari Mycobacterial infect ion, unspecified A31.9 ; 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 ; Benign prostatic hyperplasia with lower urinary tract symptoms N40.1 ; Seizures R56.9 ; Hyponatremia E87.1 ; Former smoker Z87.891 ; Generalized weakness R53.1 and Acute gout of left hand, unspecified cause M10.9 Robbie Kothari III, MD [address] [place] [address] [place] [address] 03/20/2025 Robbie Kothari Former smoker Z87.89 1 ; Hyperlipidemia 272.4 ; Benign prostatic hyperplasia without lower urinary tract symptoms N40.0 ; Mycobacterial infection, unspecified A31.9 ; Underweight R63.6 ; Anterior subcapsular polar age-related cataract of both eyes H25.033 ; Seizures R56.9 and 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 Robbie Kothari III, MD [address] [place] [address] [place] [address] 05/02/2025 Robbie Kothari Former smoker Z87.89 1 [...] symptoms N40.0 Robbie Kothari III, MD [address] [place] [address] [place] [address] 07/17/2025 Robbie Kothari Former smoker Z87.89 1 ; Encounter for immunization Z23 ; Hyperlipidemia E78.5 ; Benign prostatic hyperplasia with lower urinary tract symptoms N40.1 ; Underweight R63.6 ; Hyponatremia E87.1 ; Mycobacterial infection, unspecified A31.9 and Sleep apnea in adult G47.30 Robbie Kothari III, MD [address] [place] [address] [place] [address] 08/14/2025 Robbie Kothari Acute viral syndrome B34.9 [...] symptoms N40.1 Robbie Kothari III, MD [address] [place] [address] [place] [address] 10/28/2024 Robbie Kothari III, MD [address] [place] [address] [place] [address] 11/21/2024 Robbie Kothari III, MD [address] [place] [address] [place] [address] 11/21/2024 Robbie Kothari III, MD [address] [place] [address] 11/22/2024 Robbie Kothari III, MD [address] [facility] [place] [place] [address] 11/22/2024 Robbie Kothari III, MD [address] [facility] [place] [place] [address] 11/25/2024 Robbie Kothari III, MD [address] [facility] [place] [place] [address] 11/25/2024 Robbie Kothari III, MD [address] [place] [address] 12/05/2024 Robbie Kothari III, MD [address] [facility] [place] [place] [address] 12/14/2024 Robbie Kothari III, MD [address] [facility] [place] [place] [address] 12/20/2024 Robbie Kothari III, MD [address] [facility] [place] [address] 01/02/2025 Robbie Kothari III, MD [address] [place] [address] 01/03/2025 Robbie Kothari III, MD [address] [facility] [place] [address] 01/06/2025 Robbie Kothari III, MD [address] [facility] [place] [place] [address] 01/13/2025 Robbie Kothari III, MD [address] [facility] [place] [place] [address] 01/17/2025 Robbie Kothari III, MD [address] [place] [address] 01/17/2025 Robbie Kothari III, MD [address] [facility] [place] [place] [address] 02/07/2025 Robbie Kothari III, MD [address] [facility] [place] [address] 02/10/2025 Robbie Kothari III, MD [address] [place] [address] [address] [place] [address] 02/24/2025 Robbie Kothari III, MD [address] [place] [address] [address] [place] [address] 02/27/2025 Robbie Kothari III, MD [address] [place] [address] [place] [address] 03/03/2025 Robbie Kothari III, MD [address] [place] [address] [place] [address] 03/09/2025 Robbie Kothari III, MD [address] [place] [address] [address] [place] [address] 03/10/2025 Robbie Kothari Assessments Encounter Date Diagnosis [...] at home and was brought to the [facility] emergency of December 30, 2024 and [...] today. He tolerated it without side effects. 08/14/2025 Mycobacterial infection, unspecified (ICD-10 - A31.9) He says he did not tolerate the inhaled amikacin. I have referred him back to pulmonary to discuss this further. His pulmonary infection seems controlled today but now resolved. 08/14/2025 Acute viral syndrome (ICD-10 - B34.9) His abrupt weakness was caused by a viral syndrome. His respiratory panel showed rhino/enterovirus.He has now completely recovered. 11/21/2024 Seizures (ICD-10 - R56.9) Just before discharge from an [facility] he was begun on Keppra for periods of unresponsiveness. A repeat CT scan November 18, 2024 showed improvement in the hemorrhage and edema. The Her will be discontinued until the electroencephalogram is done. We have requested a repeat visit from [facility] neurology. 12/02/2024 Pneumonia (ICD-10 - J18.9) [...] in his regimen was necessary today. 08/14/2025 Former smoker (ICD-10 - Z87.891) He has a strategy to prevent relapse in times of stress and illness. 11/21/2024 Hyponatremia (ICD-10 - E87.1) After admission to [facility] he required hypertonic saline and then [...] - R56.9) Just before discharge from an [facility] rehabilitation he was begun on Keppra for periods of unresponsiveness. A repeat CT scan November 18, 2024 showed improvement in the hemorrhage and edema. The Her will be discontinued until the electroencephalogram is done. We have requested a repeat visit from [facility] neurology. 03/20/2025 Mycobacterial infection, unspecified (ICD-10 [...] continue the tamsulosin. His nocturia has improved. 08/14/2025 Abdominal hernia without obstruction and without gangrene, recurrence not specified, unspecified hernia type (ICD-10 - K46.9) The hernia is now asymptomatic and will be observed without treatment. 11/21/2024 Former smoker (ICD-10 - Z87.891) He [...] We have requested a repeat visit from [facility] neurology. 01/04/2025 Rosacea (ICD-10 - L71.9) [...] Hyponatremia (ICD-10 - E87.1) After admission to [facility] he required hypertonic saline and then [...] range. His weight will be monitored carefully. 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 11/21/2024 Underweight (ICD-10 - R63.6) He has [...] We have requested a repeat visit from [facility] neurology. 02/24/2025 Former smoker (ICD-10 - [...] now 136 and this problem has resolved. 08/14/2025 Hyperlipidemia (ICD-10 - E78.5) His lipids have been stable. Change in his regimen was necessary today. 11/21/2024 Anterior subcapsular polar age-related cataract of [...] Hyponatremia (ICD-10 - E87.1) After admission to [facility] he required hypertonic saline and then [...] We have requested a repeat visit from [facility] neurology. 05/02/2025 Sleep apnea in adult (ICD-10 - G47.30) He is using the new CPAP machine without difficulty and is pleased with the results. 07/17/2025 Mycobacterial infection, unspecified (ICD-10 - A31.9) He says he did not tolerate the inhaled amikacin. I have referred him back to pulmonary to discuss this further. His pulmonary infection seems controlled today but now resolved. 08/14/2025 Sleep apnea in adult (ICD-10 - [...] at home and was brought to the [facility] emergency of December 30, 2024 and [...] the tamsulosin. His nocturia has improved. 11/21/2024 Atrial arrhythmia (ICD-10 - I49.8) He [...] 07/17/2025 Lipid Panel 04/22/2024 Lipid Panel 07/22/2023 Blood Culture (First) 08/05/2025 Blood Culture (Second) 08/05/2025 Next Appt Details Provider Name:Robbie Kothari , 09/12/2025 09:15:00 AM, [address] [facility] [place] [place], [place], [address], Provider Name:Robbie Kothari , 10/17/2025 10:30:00 AM, [address] [place] [address] [address], [place], [address], Provider Name:Robbie Kothari , 01/29/2026 09:30:00 AM, [address] [facility] [place] [place], [place], [address], Insurance Providers Payer Name Payer Address Payer Phone Subscriber Number Group Number Insured Name Patient Relationship to Insured Coverage Start Date Coverage End Date [employer] Medicare Advantage [address] [address] [place] [address] [id number] Freeman King Self - patient is the insured MEDICARE NGS [address] [place] [address] [phone] [id number] Freeman King Self - patient is the insured Medical (General) History Medical History History ICD Code colonic poyps 2003 benign prostatic hyperplasia (BPH) hyperlipidemia left herniorraphy age 30 neck and right shoulder pain 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
--- OUTSIDE RECORDS SUMMARY | 2025-08-17 20:58 | XMS_ITS | Clinical Summary ---
Author Organization [address] [facility] Address [address] [place] [address] Phone Care Team Providers Care Executive Coach Name Role Phone Gloria Preston MD Primary Care Provider [phone] Surgical History Surgery Date Site/Laterality Comments HERNIA [...] topic Insurance [employer] MEDICARE Care Teams Executive Coach Relationship Specialty Start Date End Date Gloria Preston MD [address] [place] [id number] PCP - General Hospitalist Medicine 11/05/24
--- OUTSIDE RECORDS SUMMARY | 2025-08-17 20:58 | XMS_ITS | Encounter Summary ---
Author Organization [facility] Address [address] [place] [address] Care Team Providers Care Costume Seamstress Name Role Phone Gloria Preston MD Primary Care Provider [phone] Encounter Details Date Type Department Care Team (Late st Contact Info) Description 11/05/2024 Lab Requisition [facility] - Main Lab [address] [facility] [place] [address] Gloria Preston MD [address] [place] [id number] Encounter for other general examination Social History [...] 5:51 AM EST) [facility] WBC 8.0 4.8 - 10.8 K/mcL LAB [...] Resu lt [facility] [address] [place] [address], [place] [phone] * Magnesium (11/05/2024 5:51 AM EST) [facility] Magnesium 2.0 1.9 - 2.6 mg/dL LAB CHEMISTRY METHOD 11/05/2024 11:42 AM EST [facility] Blood Venous blood specimen / Unknown Venipuncture / Unknown 11/05/2024 5:51 AM EST 11/05/2024 9:43 AM EST us Gloria Preston MD LAB BLOOD ORDERABLES Final Resu lt Performing Organization Address City/[facility]/ZIP Co de Phone Number [facility] [address] [place] [address], [place] [phone] * (ABNORMAL) Comprehensive metabolic panel (11/05/2024 5:51 AM EST) [facility] Sodium 133 133 - 145 mmol/L LAB [...] LAB BLOOD ORDERABLES Final Resu lt [facility] [address] [place] [address], documented in this encounter Visit Diagnoses Diagnosis Encounter for other general examination documented in this encounter Care Teams Costume Seamstress Relationship Specialty Start Date End Date Gloria Preston MD [address] [place] [phone] PCP - General Hospitalist Medicine 11/05/24 documented as of this encounter
== END 2025-08-17 15:35 | disposition home or self-care (01) ==
LOC: HO.HPS 14:48
PROVIDERS: PCP Internal Medicine Medical Oncology; Visit Provider Hospitalist
DX: J47.9 Bronchiectasis, uncomplicated (principal); R91.8 Other nonspecific abnormal finding of lung field; R05.3 Chronic cough; A31.9 Mycobacterial infection, unspecified; J41.0 Simple chronic bronchitis
CPT/HCPCS: 99215; G2211

== ENCOUNTER → 2025-08-17 14:48 | Outpatient (BNVA) | payer MEDICARE, SELFPAY | PROVIDERS: PCP Internal Medicine Medical Oncology; Visit Provider Hospitalist | DX: J41.0 Simple chronic bronchitis (principal); J47.9 Bronchiectasis, uncomplicated; R91.8 Other nonspecific abnormal finding of lung field; A31.9 Mycobacterial infection, unspecified | CPT/HCPCS: 99212 ==